=== PATIENT | male | born 1965 | race Caucasian/White ===

== ENCOUNTER → 2016-04-14 | Outpatient (CLI) | payer OTHER ==
[~2016-04-14] MED LIST: ASPI81TA28 PO; FAMO40TA6 PO; METH4PAK PO; OMEP20TA PO; ONDA4TAB10 SL; OXYC1TAB3 PO; PRT/40 PO; ZYR10 PO
--- NOTE | 2016-04-14 10:15 | DIAGNOSTIC IMAGING REPORT ---
DOUBLE CONTRAST UPPER GI SERIES CLINICAL HISTORY: Generalized abdominal pain. Heartburn. Dysphagia. COMPARISON STUDY: Abdominal CT dated 03/28/2016. TECHNIQUE: A standard air contrast upper GI series was performed. Spot images of the esophagus and stomach were obtained in multiple obliquities both upright and prone. FINDINGS: The patient swallowed barium without difficulty. The esophagus is structurally normal without evidence of intrinsic or extrinsic mass. The esophageal mucosal pattern is normal. No gastroesophageal reflux was elicited by having the patient perform the Valsalva maneuver. The gastroesophageal junction distends normally. The stomach is normal in configuration and demonstrates normal distensibility. No mass or ulceration is identified. There is gastric fold thickening, typical in appearance for gastritis. The duodenal bulb and sweep are unremarkable. Fluoroscopy time: 1.9 minutes. Fluoroscopic images: 27 IMPRESSION: 1. The esophagus is normal in appearance. 2. Gastric fold thickening suggests gastritis. Clinical correlation will be required. Electronically signed by: Anderson Henry M.D. 04/14/2016 10:12 AM Dictated Date/Time: 04/14/2016 10:11 AM
== END | disposition home or self-care (01) ==
LOC: C.RAD 08:41
PROVIDERS: ATTEND Nurse Practitioner Family
DX: R10.13 Epigastric pain (principal); K21.9 Gastro-esophageal reflux disease without esophagitis

== ENCOUNTER 2016-05-18 15:54 | Inpatient (IN) | payer OTHER ==
[~2016-05-18] VITALS: Ht 175.3 cm; Wt 80.1 kg
[~2016-05-18 15:54] MED LIST changes: -FAMO40TA6 PO; -METH4PAK PO; -OMEP20TA PO; -ZYR10 PO
[2016-05-18] MEDS ORDERED: DiphenhydrAMINE HCL 50 MG/ML VIAL IV STA (16:44)
[2016-05-18] MEDS ORDERED: FAMOTIDINE 20MG/102 ML D5W IV STA (16:44)
[2016-05-18] MEDS ORDERED: DEXAMETHASONE SOD INJ 4 MG/ML VIAL IV STA (16:44)
[2016-05-18 16:57] LABS: BASO % 0.3 %; BASO ABS # 0.03 K/uL (0-0.2); COMPLETE YES; EOS % 2.1 %; HEMATOCRIT 47.2 % (42-52); IG% 0.3 %; LYMPH % 24.6 %; LYMPH ABS # 2.91 K/uL (1.2-3.4); MEAN CORPUSCULAR HEMOGLOBIN 33.9 pg (25-34); MEAN CORPUSCULAR HGB CONC 36.9 g/dl (32-36); MEAN PLATELET VOLUME 11.4 fL (7.4-10.4); MONO % 10.1 %; NEUT % 62.6 %; PLATELET COUNT 200 K/uL (130-400); RED BLOOD COUNT 5.13 M/uL (4.7-6.1); WHITE BLOOD COUNT 11.84 K/uL (4.8-10.8)
[2016-05-18] MEDS ORDERED: OMEP20TA PO (16:59)
--- NOTE | 2016-05-18 17:06 | DIAGNOSTIC IMAGING REPORT ---
CHEST ONE VIEW PORTABLE CLINICAL HISTORY: cough, throat swelling pain COMPARISON STUDY: 03/30/2016 FINDINGS: The bones soft tissues and hemidiaphragms are normal. The cardiomediastinal silhouette is normal. The lungs are clear. The pulmonary vasculature is normal. IMPRESSION: Negative chest. Electronically signed by: Brain Cherry M.D. 05/18/2016 5:05 PM Dictated Date/Time: 05/18/2016 5:04 PM
[2016-05-18 17:25] LABS: BUN/CREATININE RATIO 14.1 (10-20); CREATININE 0.97 mg/dl (0.60-1.40); POTASSIUM 3.8 mmol/L (3.5-5.1)
[2016-05-18] MEDS ORDERED: OPTIRAY 320 IV PRN (18:30)
--- NOTE | 2016-05-18 18:48 | DIAGNOSTIC IMAGING REPORT ---
CT soft tissue neck SOFT TISSUE NECK WITH CLINICAL HISTORY: facial, tongue, and lip swelling edema TECHNIQUE: Transaxial acquisition with multi axial reformatted images COMPARISON STUDY: None FINDINGS: Normal density characteristics of the salivary glands. No evidence for airway compromise. No evidence for mass or collection. Mild soft tissue edema in the region of the right maxillary perimandibular region. No abscess or collection. IMPRESSION: Mild premaxillary and premandibular soft tissue edema. 2. No evidence for abscess or collection. 3. No evidence for airway compromise. Electronically signed by: Brain Cherry M.D. 05/18/2016 6:46 PM Dictated Date/Time: 05/18/2016 6:45 PM
[2016-05-18] MEDS ORDERED: ONDANSETRON INJ 2 MG/ML 2 ML VIAL IV PRN (21:45)
[2016-05-18] MEDS ORDERED: DiphenhydrAMINE HCL 50 MG/ML VIAL IV PRN (21:45)
[2016-05-18] MEDS ORDERED: ALUMINUM/MAGNESIUM/SIMETH (MAALOX MAX) 30 ML UDC PO PRN (21:45)
[2016-05-18] MEDS ORDERED: NITROGLYCERIN 0.4 MG SL PER TAB CHARGE SL PRN (21:45)
[2016-05-18] MEDS ORDERED: HydrALAZINE HCL 20 MG/ML VIAL IV. PRN (21:45)
[2016-05-18] MEDS ORDERED: ACETAMINOPHEN 325 MG TAB PO PRN (21:45)
[2016-05-18 22:50] VITALS: BP 166/96; PULSE 88; TEMP 36.9; O2SAT 95; Ht 175.3 cm; Wt 80.1 kg
[2016-05-18] MEDS ORDERED: CLONIDINE HCL 0.1 MG TAB PO ONE (23:45)
[2016-05-18] MEDS ORDERED: CLONIDINE HCL 0.1 MG TAB PO PRN (23:45)
[2016-05-18] MEDS: SODIUM CHLORIDE 0.9% 1000ML 1,000 ML IV SCH (23:56)
--- NOTE | 2016-05-19 00:10 | EMERGENCY ROOM VISIT NOTE ---
History Report prepared by Vu: Mayelin Duarte Under the Supervision of: Dr. Karl Knight M.D. First contact with patient: 16:32 Chief Complaint: ALLERGIC REACTION Stated Complaint: SWELLING IN THROAT, LIPS AND FACE Nursing Triage Summary: Patient presents with left sided facial swelling and left upper lip swellng that started approximatleyh 1300 this date. Negative mary inhibitor use, negative exposure to mumps. negative fever/chills. Mild nausea, negative vomiting. 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 His symptoms came on gradually as the day progressed. The patient is experiencing facial edema and upper lip edema. The patient states that his tongue feels thick. He also states that it is hard to swallow. He has not taken anything to try to relieve his symptoms. He is also experiencing some blurry vision and some nausea. The patient denies using or doing anything different today. He states that he started experiencing a cough one week ago. Pt denies headache, fevers, chills, sore throat, neck pain, chest pain, breathing difficulties, vomiting, abdominal pain, back pain, melena, hematochezia, urinary symptoms, numbness, weakness, lymphadenopathy, rash, or other complaints. The patient takes Prilosec, but denies being on any other daily medications. 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 A total of ten systems were reviewed and were otherwise negative. Past Medical & Surgical Medical Problems: (1) Abnormal liver function (2) Allergic angioedema (3) Gastroesophageal reflux disease (4) H/O: Bowel obstruction (5) s/p appendectomy Family History FH: CHF (congestive heart failure) MOTHER FH: AK (myocardial infarction) FATHER FH: Parkinson's disease FATHER FH: stroke FATHER Social History Smoking Status: Never Smoker Alcohol Use: occasionally Marital Status: Housing Status: lives with family Occupation Status: employed Current/Historical Medications Scheduled PRN Omeprazole (Omeprazole), 20 MG PO DAILY PRN for Acid Reflux Allergies Coded Allergies: No Known Allergies (Unverified , NONE, 03/30/16) Physical Exam Vital Signs Date Time Temp Pulse Resp B/P Pulse Ox O2 Delivery O2 Flow Rate FiO2 05/18/16 21:21 80 05/18/16 20:30 80 18 168/108 95 Room Air 05/18/16 18:19 79 18 156/109 95 Room Air 05/18/16 17:45 82 16 161/115 97 Room Air 05/18/16 17:12 84 05/18/16 17:07 86 20 177/112 95 Room Air 05/18/16 16:57 96 Room Air 05/18/16 16:08 37.1 101 20 164/99 94 Room Air Physical Exam GENERAL: Awake, alert, well-appearing, in no distress HENT: Normocephalic, atraumatic. Facial swelling. Lower lip swelling. Mild tongue edema. Oropharynx unremarkable. EYES: Normal conjunctiva. Sclera non-icteric. NECK: Supple. No nuchal rigidity. FROM. No JVD. RESPIRATORY: Clear to auscultation. CARDIAC: Regular rate, normal rhythm. Extremities warm and well perfused. Pulses equal. ABDOMEN: Soft, non-distended. No tenderness to palpation. No rebound or guarding. No masses. RECTAL: Deferred. MUSCULOSKELETAL: Chest examination reveals no tenderness. The back is symmetrical on inspection without obvious abnormality. There is no CVA tenderness to palpation. No joint edema. LOWER EXTREMITIES: Calves are equal size bilaterally and non-tender. No edema. No discoloration. NEURO: Normal sensorium. No sensory or motor deficits noted. SKIN: No rash or jaundice noted. Medical Decision & Procedures ER Provider Diagnostic Interpretation: X ray results as stated below per my interpretation and radiologist interpretation. Other radiology results as stated below per my review and radiologist interpretation CHEST ONE VIEW PORTABLE IMPRESSION: Negative chest. Electronically signed by: Brain Cherry M.D. 05/18/2016 5:05 PM Dictated Date/Time: 05/18/2016 5:[address] soft tissue neck SOFT TISSUE NECK WITH IMPRESSION: Mild premaxillary and premandibular soft tissue edema. 2. No evidence for abscess or collection. 3. No evidence for airway compromise. Electronically signed by: Brain Cherry M.D. 05/18/2016 6:46 PM Dictated Date/Time: 05/18/2016 6:45 PM Laboratory Results 05/18/16 16:20 Red Blood Count 5.13, Mean Corpuscular Volume 92.0, Mean Corpuscular Hemoglobin 33.9, Mean Corpuscular Hemoglobin Concent 36.9, Mean Platelet Volume 11.4, Neutrophils (%) (Auto) 62.6, Lymphocytes (%) (Auto) 24.6, Monocytes (%) (Auto) 10.1, Eosinophils (%) (Auto) 2.1, Basophils (%) (Auto) 0.3, Neutrophils # (Auto ) 7.43, Lymphocytes # (Auto) 2.91, Monocytes # (Auto) 1.19, Eosinophils # (Auto ) 0.25, Basophils # (Auto) 0.03 05/18/16 16:20 Test 05/18/16 16:20 White Blood Count 11.84 K/uL (4.8-10.8) Red Blood Count 5.13 M/uL (4.7-6.1) Hemoglobin 17.4 g/dL (14.0-18.0) Hematocrit 47.2 % (42-52) Mean Corpuscular Volume 92.0 fL (80-100) Mean Corpuscular Hemoglobin 33.9 pg (25-34) Mean Corpuscular Hemoglobin Concent 36.9 g/dl (32-36) Platelet Count 200 K/uL (130-400) Mean Platelet Volume 11.4 fL (7.4-10.4) Neutrophils (%) (Auto) 62.6 % Lymphocytes (%) (Auto) 24.6 % Monocytes (%) (Auto) 10.1 % Eosinophils (%) (Auto) 2.1 % Basophils (%) (Auto) 0.3 % Neutrophils # (Auto) 7.43 K/uL (1.4-6.5) Lymphocytes # (Auto) 2.91 K/uL (1.2-3.4) Monocytes # (Auto) 1.19 K/uL (0.11-0.59) Eosinophils # (Auto) 0.25 K/uL (0-0.5) Basophils # (Auto) 0.03 K/uL (0-0.2) RDW Standard Deviation 46.3 fL (36.4-46.3) RDW Coefficient of Variation 13.6 % (11.5-14.5) Immature Granulocyte % (Auto) 0.3 % Immature Granulocyte # (Auto) 0.03 K/uL (0.00-0.02) Anion Gap 10.0 mmol/L (3-11) Est Creatinine Clear Calc Drug Dose 90.1 ml/min Estimated GFR () 104.3 Estimated GFR (Non- 90.0 BUN/Creatinine Ratio 14.1 (10-20) Calcium Level 8.0 mg/dl (8.5-10.1) Chemistry Specimen Hemolysis Laboratory results reviewed by me Medications Administered Medications (Trade) Dose Ordered Sig/Solitario Route Start Time Stop Time Status Last Admin Dose Admin Diphenhydramine HCl (Benadryl Inj) 50 mg NOW STAT IV 05/18/16 16:44 05/18/16 16:46 DC 05/18/16 16:54 50 MG Dexamethasone Sodium Phosphate (Decadron Inj) 10 mg NOW STAT IV 05/18/16 16:44 05/18/16 16:46 DC 05/18/16 16:55 10 MG Famotidine (Pepcid 20mg/100 ml) 20 mg ONE STAT IV 05/18/16 16:44 05/18/16 16:46 DC 05/18/16 16:55 20 MG ED Course 1642: The patient was evaluated in room A9. A complete history and physical exam was performed. 1643: Ordered Famotidine 20 mg IV, Decadron Inj 10 mg IV, Benadryl Inj 50 mg IV 1749: I reassessed the patient. He is doing better. The patient's family notes that the patient is hypertensive now, but he has no prior history of hypertension. 2054: Upon reexamination, the patient was resting comfortably. I discussed the test results and treatment plan with him. The patient will be evaluated for further management. 2112: Discussed the patient's case with Dr. Autumn Moreira. The patient will be evaluated for further treatment and disposition. Medical Decision Triage Nursing notes reviewed. The patient's presentation and history were concerning for facial swelling. Etiologies such as allergic reaction, urticaria, angioedema, Praneeth's angina, deep space infection, as well as others were entertained. The patient was evaluated. He was treated with IV Pepcid, Benadryl, and Decadron. He was monitored. Initially he seemed to be getting somewhat better but then had some slight progression. This stabilized. The patient was observed for several more hours. He had CT imaging done to evaluate for any possible infection. Edema was noted but no abscess or significant findings found otherwise. The patient was hypertensive. I did discuss this with the patient and his . The patient has had hypertension documented for several years. He is currently not on any medications for hypertension. Because of the swelling around the airway further observation and potential treatment will be necessary. The patient was in agreement with staying in the hospital. Consultation was made with internal medicine. The patient was evaluated in the Emergency Room for further treatment. Given the findings this seems to be most consistent with angioedema. The chart was completed utilizing [employer] Speech voice recognition software. Grammatical errors, random word insertions, pronoun errors, and incomplete sentences are an occasional consequence of this system due to software limitations, ambient noise, and hardware issues. Any formal questions or concerns about the content, text, or information contained within the body of this dictation should be directly addressed to the physician for clarification. Consults Time Called: 2099 Consulting Physician: Dr. Autumn Moreira Returned Call: [id number] Discussed the patient's case with Dr. Autumn Moreira. The patient will be evaluated for further treatment and disposition. Impression Primary Impression: Facial edema Additional Impression: Angioedema Scribe Attestation The scribe's documentation has been prepared under my direction and personally reviewed by me in its entirety. I confirm that the note above accurately reflects all work, treatment, procedures, and medical decision making performed by me. Departure Information Dispostion Being Evaluated By Hospitalist Toby Teran M.D. (PCP) Patient Instructions My [facility] Problem Qualifiers Additional Impression: Angioedema Encounter type: initial encounter Qualified Codes: T78.3XXA - Angioneurotic edema, initial encounter
[2016-05-19] MEDS ORDERED: LORAZEPAM 0.5 MG TAB PO STA (00:41)
[2016-05-19] MEDS ORDERED: LORAZEPAM 0.5 MG TAB ONE (00:43)
--- NOTE | 2016-05-19 01:40 | HISTORY & PHYSICAL EXAMINATION ---
DATE OF ADMISSION: 05/18/2016 CHIEF COMPLAINT: Allergic reaction. HISTORY OF PRESENT ILLNESS: This is a 50-year-old male with a past medical history significant for GERD, who comes because of allergic reaction. The patient says he was going to grocery with his family when the family suddenly noticed that his face was swelling and lips were swelling. He felt that his throat was closing on. He came to the ER and was given dexamethasone, Benadryl and famotidine. He says his shortness of breath improved, but he still feels his tongue is swollen and face is swollen. The patient denies any recent change of medications or using any [id number] medications. He denies any insect bite. It happened all of a sudden. It did not happen in the past. He denies any chest pain. No cold symptoms. He has some mild blurred vision. No abdominal pain. Appetite is okay. Normal bowel and bladder movements. Otherwise, he is doing fine. Currently he is resting comfortably, hemodynamically stable and saturating fine on room air. ALLERGIES: No known drug allergies. PAST MEDICAL HISTORY: As mentioned above. PAST SURGICAL HISTORY: Colonoscopy and EGD, removal of ruptured appendix, history of bowel obstruction status post exploratory laparotomy with extensive lysis of adhesions and repair of small bowel. MEDICATIONS: The patient is on Protonix 40 mg p.o. daily and Prevacid 30 mg p.o. b.i.d. FAMILY HISTORY: Significant for; father had ND in 40s and had stroke. Mother has migraines. SOCIAL HISTORY: Never smoked. Alcohol occasional, 6-packs per week. No drug use. No caffeine. Lives with his family. REVIEW OF SYMPTOMS: As per HPI. Rest of review of symptoms negative. PHYSICAL EXAMINATION: GENERAL: The patient is of moderate build, not in distress. VITAL SIGNS: Temperature 37.1, pulse 80, respiratory rate 18, blood pressure 168/108 and oxygen 95% on room air. HEENT: No pallor, no icterus. Pupils are equal, round and reactive to light. NECK: Bilateral parotid and mandibular area swelling seen. Face; oral mucosa, lips are slightly swollen and tongue is slightly swollen. NECK: No JVD, no carotid bruit. No neck masses. CARDIOVASCULAR: S1, S2 heard. Regular rate and rhythm. No murmur and no gallop. RESPIRATORY SYSTEM: Normal AP diameter. No accessory muscle use. No wheezing, no crackles. ABDOMEN: Soft, bowel sounds are present. Mild tenderness in the right upper quadrant region. No distention. CENTRAL NERVOUS SYSTEM: Cranial nerves II-XII are grossly intact. Nonfocal. EXTREMITIES: No edema, no erythema. LABORATORIES: WBC 11.8, hemoglobin 17.4, hematocrit 47.2, platelets 200. Sodium 142, potassium 3.8, chloride 108, bicarbonate 24, BUN 14, creatinine 0.9, serum glucose 94, calcium is 8. Chest x-ray; negative chest, soft tissue neck, mild premaxillary and perimandibular soft tissue edema. No evidence for abscess or collection. No evidence of airway compromise. ASSESSMENT AND PLAN: This is a 50-year-old male, who presents with allergic reaction. 1. Allergic reaction and possible angioedema. The swelling over the parotid and mandibular region, tongue and lip swelling. Unknown etiology. Soft tissue scan of the neck showed no airway compromise, but showed premaxillary and mandibular swelling. We will observe on tele floor. We will put him on IV Solu-Medrol, IV famotidine, cetirizine and IV Benadryl p.r.n. He requires maybe, a short one-week course of prednisone taper and Zantac and cetirizine on discharge. May need to follow as outpatient with allergy leak gang supervisor. We will also consult ENT for his mandibular region swelling and possible parotid gland involvement. 2. History of gastroesophageal reflux disease, currently on IV famotidine. Deep venous thrombosis prophylaxis, SCDs and TEDs. DISPOSITION: Admit to the tele floor. Expect to discharge home and follow with the family doctor and allergy and immunology. Level 1 full code. MTDD
[2016-05-19 05:29] LABS: COMPLETE YES; HEMATOCRIT 42.4 % (42-52); IG% 0.2 %; LYMPH % 13.5 %; LYMPH ABS # 1.12 K/uL (1.2-3.4); MEAN CELL VOLUME 92.2 fL (80-100); MEAN CORPUSCULAR HEMOGLOBIN 33.5 pg (25-34); MEAN CORPUSCULAR HGB CONC 36.3 g/dl (32-36); MONO % 4.3 %; PLATELET COUNT 177 K/uL (130-400); WHITE BLOOD COUNT 8.29 K/uL (4.8-10.8)
[2016-05-19 05:34] VITALS: BP 120/78; PULSE 78; TEMP 36.9; O2SAT 93
[2016-05-19 05:53] LABS: ALT/SGPT 81 U/L (12-78); AST/SGOT 35 U/L (15-37); BLOOD UREA NITROGEN 15 mg/dl (7-18); BUN/CREATININE RATIO 20.4 (10-20); CALCIUM 8.4 mg/dl (8.5-10.1); CARBON DIOXIDE 23 mmol/L (21-32); CHLORIDE 109 mmol/L (98-107); CREATININE 0.75 mg/dl (0.60-1.40); GLUCOSE 122 mg/dl (70-99); POTASSIUM 3.9 mmol/L (3.5-5.1); SODIUM 142 mmol/L (136-145)
[2016-05-19 05:56] LABS: ALKALINE PHOSPHATASE 85 U/L (45-117)
[2016-05-19] MEDS ORDERED: FAMOTIDINE IV INJ 20 MG in DEXTROSE 5% 100ML 100 ML IV SCH (06:00)
[2016-05-19 07:48] VITALS: BP 122/81; PULSE 79; TEMP 36.8; O2SAT 95
[2016-05-19] MEDS ORDERED: METHYLPREDNISOLONE IV 60 MG in SYRINGE 0 ML IV SCH (09:00)
[2016-05-19] MEDS ORDERED: CETIRIZINE HCL 10 MG TAB PO SCH (09:00)
[2016-05-19 11:24] VITALS: BP 145/91; PULSE 81; TEMP 36.8; O2SAT 94
[2016-05-19] MEDS: SODIUM CHLORIDE 0.9% 1000ML 1,000 ML IV SCH (11:30)
--- NOTE | 2016-05-19 12:18 | Progress Note ---
Subjective Date of Service: May 19, 2016. Subjective Pt evaluation today including: conversation w/ patient, physical exam, lab review, review of studies, review of inpatient medication list Saw/examined the patient in room 280 He states he feels much better as all of his swelling has gone down He states he did take amoxicillin last week, which was the only change in medications No change in dietary habits Problem List Medical Problems: (1) Abdominal pain with radiation to back Status: Acute Review of Systems Constitutional: No chills, No fever Eyes: No eye pain, No worsening of vision ENT: No dental problems, No sore throat, No tinnitus, No trouble swallowing Respiratory: No cough, No dyspnea at rest, No dyspnea on exertion, No hemoptysis, No shortness of breath, No sputum, No wheezing Cardiac: No chest pain, No edema, No orthopnea, No palpitations Abdomen: No diarrhea, No nausea, No pain, No vomiting Medications Current Inpatient Medications Medications (Trade) Dose Ordered Sig/Solitario Route Start Time Stop Time Status Last Admin Dose Admin Ioversol 125 ml 125 ml UD PRN IV 05/18/16 18:30 05/22/16 18:29 Sodium Chloride (Nss 1000ml) 1,000 ml @ 80 mls/hr [id number] IV 05/18/16 23:30 06/17/16 23:29 05/19/16 11:30 80 MLS/HR Acetaminophen (Tylenol Tab) 650 mg Q4H PRN PO 05/18/16 21:45 06/17/16 21:44 Al Hydrox/Mg Hydrox/Simethicone (Maalox Max Susp) 15 ml Q4H PRN PO 05/18/16 21:45 06/17/16 21:44 Ondansetron HCl (Zofran Inj) 4 mg Q6H PRN IV 05/18/16 21:45 06/17/16 21:44 Nitroglycerin 0.4 mg 0.4 mg UD PRN SL 05/18/16 21:45 06/17/16 21:44 Methylprednisolone Sodium Succinate/ Syringe (Solu-Medrol IV/ Syringe) 0.96 ml @ 1.5 mls/min DAILY IV 05/19/16 09:00 06/18/16 08:59 05/19/16 07:50 1.5 MLS/MIN Cetirizine HCl (zyrTEC TAB) 10 mg QAM PO 05/19/16 09:00 06/18/16 08:59 05/19/16 07:50 10 MG Diphenhydramine HCl 25 mg 25 mg Q8 PRN IV 05/18/16 21:45 06/17/16 21:44 Famotidine/ Dextrose (Pepcid IV Inj/ D5 100ml) 102 ml @ 200 mls/hr Q12H IV 05/19/16 06:00 06/18/16 05:59 05/19/16 06:13 200 MLS/HR Hydralazine HCl (HydrALAZINE INJ) 5 mg Q6 PRN IV. 05/18/16 21:45 06/17/16 21:44 05/18/16 22:20 5 MG Clonidine HCl (Catapres Tab) 0.1 mg Q4 PRN PO 05/18/16 23:45 06/17/16 23:44 Objective Vital Signs Date Time Temp Pulse Resp B/P Pulse Ox O2 Delivery O2 Flow Rate FiO2 05/19/16 11:55 Room Air 05/19/16 11:24 36.8 81 18 145/91 94 Room Air 05/19/16 07:48 36.8 79 18 122/81 95 Room Air 05/19/16 07:45 Room Air 05/19/16 05:34 36.9 78 18 120/78 93 Room Air 05/19/16 04:00 Room Air 05/18/16 22:50 36.9 88 20 166/96 95 Room Air 05/18/16 22:19 81 18 175/124 05/18/16 21:21 80 05/18/16 20:30 80 18 168/108 95 Room Air 05/18/16 18:19 79 18 156/109 95 Room Air 05/18/16 17:45 82 16 161/115 97 Room Air 05/18/16 17:12 84 05/18/16 17:07 86 20 177/112 95 Room Air 05/18/16 16:57 96 Room Air 05/18/16 16:08 37.1 101 20 164/99 94 Room Air Physical Exam General Appearance: no apparent distress ENT: hearing grossly normal Neck: supple, no adenopathy Respiratory/Chest: chest non-tender, lungs clear, normal breath sounds, no respiratory distress, no accessory muscle use Cardiovascular: regular rate, rhythm, no edema, no gallop, no JVD, no murmur Abdomen: normal bowel sounds, non tender, soft Extremities: normal inspection, no pedal edema Neurologic/Psychiatric: no motor/sensory deficits, alert, normal mood/affect Laboratory Results Last 24 Hours Test 05/18/16 16:20 05/18/16 21:59 05/19/16 05:10 White Blood Count 11.84 K/uL 8.29 K/uL Red Blood Count 5.13 M/uL 4.60 M/uL Hemoglobin 17.4 g/dL 15.4 g/dL Hematocrit 47.2 % 42.4 % Mean Corpuscular Volume 92.0 fL 92.2 fL Mean Corpuscular Hemoglobin 33.9 pg 33.5 pg Mean Corpuscular Hemoglobin Concent 36.9 g/dl 36.3 g/dl Platelet Count 200 K/uL 177 K/uL Mean Platelet Volume 11.4 fL 11.0 fL Neutrophils (%) (Auto) 62.6 % 82.0 % Lymphocytes (%) (Auto) 24.6 % 13.5 % Monocytes (%) (Auto) 10.1 % 4.3 % Eosinophils (%) (Auto) 2.1 % 0.0 % Basophils (%) (Auto) 0.3 % 0.0 % Neutrophils # (Auto) 7.43 K/uL 6.79 K/uL Lymphocytes # (Auto) 2.91 K/uL 1.12 K/uL Monocytes # (Auto) 1.19 K/uL 0.36 K/uL Eosinophils # (Auto) 0.25 K/uL 0.00 K/uL Basophils # (Auto) 0.03 K/uL 0.00 K/uL RDW Standard Deviation 46.3 fL 45.4 fL RDW Coefficient of Variation 13.6 % 13.5 % Immature Granulocyte % (Auto) 0.3 % 0.2 % Immature Granulocyte # (Auto) 0.03 K/uL 0.02 K/uL Sodium Level 142 mmol/L 142 mmol/L Potassium Level 3.8 mmol/L 3.9 mmol/L Chloride Level 108 mmol/L 109 mmol/L Carbon Dioxide Level 24 mmol/L 23 mmol/L Anion Gap 10.0 mmol/L 10.0 mmol/L Blood Urea Nitrogen 14 mg/dl 15 mg/dl Creatinine 0.97 mg/dl 0.75 mg/dl Est Creatinine Clear Calc Drug Dose 90.1 ml/min 116.6 ml/min Estimated GFR () 104.3 123.1 Estimated GFR (Non- 90.0 106.2 BUN/Creatinine Ratio 14.1 20.4 Random Glucose 94 mg/dl 122 mg/dl Calcium Level 8.0 mg/dl 8.4 mg/dl Chemistry Specimen Hemolysis Ionized Calcium 1.13 mmol/l Magnesium Level 2.0 mg/dl Total Bilirubin 0.4 mg/dl Direct Bilirubin < 0.1 mg/dl Aspartate Amino Transf (AST/SGOT) 35 U/L Alanine Aminotransferase (ALT/SGPT) 81 U/L Alkaline Phosphatase 85 U/L Total Protein 6.3 gm/dl Albumin 3.0 gm/dl 25-Hydroxy Vitamin D Total 14.2 ng/ml Assessment and Plan This is a 50 year old male who presented with swelling of throat/lips Allergic Reaction swelling of lips/face patient mentioned felt like throat closing was given IV steroids, H1 and H2 tonia and he felt better all symptoms have resolved soft tissue neck CT shows Mild premaxillary and premandibular soft tissue edema. ENT consulted for further input likely d/c home today on medrol dosepak, Zyrtec and H2 tonia with outpatient f /u with PCP DVT ppx SCDs FULL CODE
--- NOTE | 2016-05-19 13:40 | ECHOCARDIOGRAM REPORT ---
*NOTICE TO RECEIVING LIBERTARIAN AGENCY This information is strictly Confidential and protected under [place] law. [place] law prohibits you from making any further disclosure of this information unless further disclosure is expressly permitted by the written consent of the person to whom it pertains or is authorized by law. A general authorization for the release of medical or other information is not sufficient for this purpose. Hospital accepts no responsibility if the information is made available to any other person, INCLUDING THE PATIENT. Interpretation Summary * Name: MARLEEN MELTON Study Date: 05/19/2016 10:20 AM BP: 145/91 mmHg * Patient Location: [facility]\S\N280\S\1 HR: 81 * : 1965 (M/d/yyyy) Gender: Male Height: 69 in * Age: 50 yrs Ethnicity: [place] Weight: 181 lb * Ordering Physician: Eliot Valdes * Performed By: Camille Santoyo * * Reason For Study: LVH * BSA: 2.0 m2 * -- Conclusions -- * The left ventricle is normal in size. * There is moderate concentric left ventricular hypertrophy. * Left ventricular systolic function is normal. * Ejection Fraction = 60-65%. Procedure Details * A complete two-dimensional transthoracic echocardiogram was performed (2D, M-mode, Doppler and color flow Doppler). Left Ventricle * The left ventricle is normal in size. * There is moderate concentric left ventricular hypertrophy. * Ejection Fraction = 60-65%. * Left ventricular systolic function is normal. Right Ventricle * The right ventricle is normal size. * The right ventricular systolic function is normal. Atria * The left atrial size is normal. * Right atrial size is normal. * The interatrial septum is intact with no evidence for an atrial septal defect. Mitral Valve * The mitral valve is normal in structure and function. Tricuspid Valve * The tricuspid valve anatomy is normal. * Significant tricuspid regurgitation is absent. Aortic Valve * The aortic valve is normal in structure and function. Pulmonic Valve * The pulmonic valve is not well visualized. * There is no significant pulmonary regurgitation. Great Vessels * The aortic root and proximal ascending aorta are normal sized. Pericardium/Pleural * There is no pericardial effusion. Left Ventricular Diastolic Function * Diastolic dysfunction, Grade II (pseudonormalization pattern). MMode 2D Measurements and Calculations IVSd 1.6 cm IVSs 2.1 cm LVIDd 3.5 cm LVIDs 2.3 cm LVPWd 1.1 cm LVPWs 1.6 cm IVS/LVPW 1.5 FS 35.3 % EDV(Teich) 51.1 ml ESV(Teich) 17.5 ml EF(Teich) 65.8 % EDV(cubed) 43.1 ml ESV(cubed) 11.7 ml EF(cubed) 73.0 % % IVS thick 29.9 % % LVPW thick 51.5 % LV mass(C)d 162.5 grams LV mass(C)dI 82.1 grams/m\S\2 LV mass(C)s 169.7 grams LV mass(C)sI 85.7 grams/m\S\2 CO(Teich) 2.2 l/min CI(Teich) 1.1 l/min/m\S\2 SV(Teich) 33.6 ml SI(Teich) 17.0 ml/m\S\2 CO(cubed) 2.1 l/min CI(cubed) 1.0 l/min/m\S\2 SV(cubed) 31.5 ml SI(cubed) 15.9 ml/m\S\2 ACS 1.7 cm LA dimension 3.8 cm asc Aorta Diam 3.3 cm LVOT diam 2.2 cm LVOT area 3.7 cm\S\2 LVAd ap4 25.0 cm\S\2 LVLd ap4 8.7 cm EDV(MOD-sp4) 60.0 ml LVAs ap4 13.7 cm\S\2 LVLs ap4 6.7 cm ESV(MOD-sp4) 25.0 ml EF(MOD-sp4) 58.3 % LVAd ap2 24.7 cm\S\2 LVLd ap2 8.3 cm EDV(MOD-sp2) 61.0 ml LVAs ap2 13.0 cm\S\2 LVLs ap2 6.3 cm ESV(MOD-sp2) 23.0 ml EF(MOD-sp2) 62.3 % CO(MOD-sp4) 2.3 l/min CI(MOD-sp4) 1.2 l/min/m\S\2 SV(MOD-sp4) 35.0 ml SI(MOD-sp4) 17.7 ml/m\S\2 CO(MOD-sp2) 2.5 l/min CI(MOD-sp2) 1.3 l/min/m\S\2 SV(MOD-sp2) 38.0 ml SI(MOD-sp2) 19.2 ml/m\S\2 Doppler Measurements and Calculations MV E max yoselin 77.1 cm/sec MV A max yoselin 73.3 cm/sec MV E/A 1.1 MV dec time 0.26 sec Ao V2 max 129.0 cm/sec Ao max PG 6.7 mmHg Ao max PG (full) 1.4 mmHg MARY(V,A) 3.3 cm\S\2 MARY(V,D) 3.3 cm\S\2 LV V1 max PG 5.3 mmHg LV V1 mean PG 2.7 mmHg LV V1 max 115.1 cm/sec LV V1 mean 77.0 cm/sec LV V1 VTI 24.4 cm SV(LVOT) 89.2 ml SI(LVOT) 45.1 ml/m\S\2 PA V2 max 101.7 cm/sec PA max PG 4.1 mmHg PI end-d yoselin 108.6 cm/sec
[2016-05-19] MEDS ORDERED: ZYR10 PO (14:39)
[2016-05-19] MEDS ORDERED: METH4PAK PO (14:39)
[2016-05-19] MEDS ORDERED: FAMO40TA6 PO (14:39)
--- NOTE | 2016-05-19 14:44 | Discharge Instructions ---
Discharge Instructions Admission Reason for Admission: Allergic Angioedema Discharge Discharge Diagnosis / Problem: Allergic Reaction; Angioedema Discharge Goals Goal(s): Decrease discomfort, Improve function Activity Recommendations Activity Limitations: resume your previous activity . Instructions / Follow-Up Instructions / Follow-Up Please follow-up with May 26 @ 1:10PM with Dr. Paz * You will be prescribed a Medrol Dosepak (steroids) - please follow directions and use to completion * You will also be prescribed Pepcid and Zyrtec - please use this as prescribed * Return to the ER if swelling recurs Current Hospital Diet Patient's current hospital diet: AHA Diet (Heart Healthy) Discharge Diet Recommended Diet: Regular Diet Pending Studies Studies pending at discharge: no Medical Emergencies . Who to Call and When: Medical Emergencies: If at any time you feel your situation is an emergency, please call 911 immediately. . Non-Emergent Contact Non-Emergency issues call your: Primary Care Provider . . "Provider Documentation" section prepared by Benoit Jacobo. VTE Core Measure Inpt VTE Proph given/why not?: SCD's
--- NOTE | 2016-05-19 14:45 | ENT CONSULTATION ---
DATE OF CONSULTATION: 05/19/2016 DATE OF CONSULTATION: 05/19/2016. DIAGNOSIS: Angioedema. HISTORY OF PRESENT ILLNESS: A 50-year-old gentleman who was admitted from the Emergency Room yesterday because of acute facial swelling. He did not have any breakfast and only had a cup of coffee and then began having facial swelling and tongue swelling yesterday. This became progressively worse and then he presented to the emergency room where he was noted to have angioedema and was admitted. PAST MEDICAL HISTORY: Gastroesophageal reflux disease. PREVIOUS SURGERIES: Appendectomy and bowel obstruction. FAMILY HISTORY: Negative. SOCIAL HISTORY: Negative, nonsmoker. MEDICATIONS: Omeprazole. ALLERGIES: No known drug allergies. PHYSICAL EXAMINATION: GENERAL: WN, WD male in no acute distress. Evidently he had significant swelling yesterday; however, today the swelling has totally subsided. HEAD: Normocephalic. EYES: Normal. EARS: Normal. NOSE: Nasal passages patent. THROAT: Oropharynx shows normal mobile tongue. NECK: Shows no masses and no swelling. IMPRESSION: Angioedema, resolved. RECOMMENDATIONS: I would agree that the patient needs to be evaluated by allergy, which could be Dr. Ribera in town here.
--- NOTE | 2016-05-19 14:49 | Discharge Summary ---
Discharge Summary Admission Date: May 18, 2016 at 21:38 Discharge Date: May 19, 2016 Discharge Disposition: Home Principal Diagnosis: Allergic Reaction/Angioedema - resolved Medication Reconciliation New Medications: Famotidine (Pepcid) 40 Mg Tab 1 TAB PO DAILY for 30 Days, #30 TAB 3 Refills Methylprednisolone (Medrol Dosepak) 4 Mg Dave 1 PKT PO DAILY, #1 PKT Cetirizine HCl (All Day Allergy) 10 Mg Tab 10 MG PO QAM for 10 Days, #10 TAB Continued Medications: Omeprazole (Omeprazole) 20 Mg Tab 20 MG PO DAILY PRN for Acid Reflux, TAB Admission Information Physical Exam (per Admitting): DATE OF ADMISSION: 05/18/2016 CHIEF COMPLAINT: Allergic reaction. HISTORY OF PRESENT ILLNESS: This is a 50-year-old male with a past medical history significant for GERD, who comes because of allergic reaction. The patient says he was going to grocery with his family when the family suddenly noticed that his face was swelling and lips were swelling. He felt that his throat was closing on. He came to the ER and was given dexamethasone, Benadryl and famotidine. He says his shortness of breath improved, but he still feels his tongue is swollen and face is swollen. The patient denies any recent change of medications or using any [id number]-dzlomyw medications. He denies any insect bite. It happened all of a sudden. It did not happen in the past. He denies any chest pain. No cold symptoms. He has some mild blurred vision. No abdominal pain. Appetite is okay. Normal bowel and bladder movements. Otherwise, he is doing fine. Currently he is resting comfortably, hemodynamically stable and saturating fine on room air. ALLERGIES: No known drug allergies. PAST MEDICAL HISTORY: As mentioned above. PAST SURGICAL HISTORY: Colonoscopy and EGD, removal of ruptured appendix, history of bowel obstruction status post exploratory laparotomy with extensive lysis of adhesions and repair of small bowel. MEDICATIONS: The patient is on Protonix 40 mg p.o. daily and Prevacid 30 mg p.o. b.i.d. FAMILY HISTORY: Significant for; father had NH in 40s and had stroke. Mother has migraines. SOCIAL HISTORY: Never smoked. Alcohol occasional, 6-packs per week. No drug use. No caffeine. Lives with his family. REVIEW OF SYMPTOMS: As per HPI. Rest of review of symptoms negative. PHYSICAL EXAMINATION: GENERAL: The patient is of moderate build, not in distress. VITAL SIGNS: Temperature 37.1, pulse 80, respiratory rate 18, blood pressure 168/108 and oxygen 95% on room air. HEENT: No pallor, no icterus. Pupils are equal, round and reactive to light. NECK: Bilateral parotid and mandibular area swelling seen. Face; oral mucosa, lips are slightly swollen and tongue is slightly swollen. NECK: No JVD, no carotid bruit. No neck masses. CARDIOVASCULAR: S1, S2 heard. Regular rate and rhythm. No murmur and no gallop. RESPIRATORY SYSTEM: Normal AP diameter. No accessory muscle use. No wheezing, no crackles. ABDOMEN: Soft, bowel sounds are present. Mild tenderness in the right upper quadrant region. No distention. CENTRAL NERVOUS SYSTEM: Cranial nerves II-XII are grossly intact. Nonfocal. EXTREMITIES: No edema, no erythema. LABORATORIES: WBC 11.8, hemoglobin 17.4, hematocrit 47.2, platelets 200. Sodium 142, potassium 3.8, chloride 108, bicarbonate 24, BUN 14, creatinine 0.9, serum glucose 94, calcium is 8. Chest x-ray; negative chest, soft tissue neck, mild premaxillary and perimandibular soft tissue edema. No evidence for abscess or collection. No evidence of airway compromise. ASSESSMENT AND PLAN: This is a 50-year-old male, who presents with allergic reaction. 1. Allergic reaction and possible angioedema. The swelling over the parotid and mandibular region, tongue and lip swelling. No inciting. No unknown etiology. Soft tissue scan of the neck showed no airway compromise, but showed premaxillary and mandibular swelling. We will observe on tele floor. We will put him on IV Solu-Medrol, IV famotidine, cetirizine and IV Benadryl p.r.n. He requires maybe, a short one-week course of prednisone taper and Zantac and cetirizine on discharge. May need to follow as outpatient with allergy supervisor dog license officer. We will also consult ENT for his mandibular region swelling and possible parotid gland involvement. 2. History of gastroesophageal reflux disease, currently on IV famotidine. Deep venous thrombosis prophylaxis, SCDs and TEDs. DISPOSITION: Admit to the tele floor. Expect to discharge home and follow with the family doctor and allergy and immunology. Level 1 full code. Hospital Course This is a 50 year old male who presented with swelling of throat/lips Allergic Reaction swelling of lips/face patient mentioned felt like throat closing was given IV steroids, H1 and H2 tonia and he felt better all symptoms have resolved soft tissue neck CT shows Mild premaxillary and premandibular soft tissue edema. ENT consulted for further input likely d/c home today on medrol dosepak, Zyrtec and H2 tonia with outpatient f /u with PCP DVT ppx SCDs FULL CODE Total time spent on discharge = 25 minutes This includes examination of the patient, discharge planning, medication reconciliation, and communication with other providers. Discharge Instructions Please follow-up with May 26 @ 1:10PM with Dr. Paz * You will be prescribed a Medrol Dosepak (steroids) - please follow directions and use to completion * You will also be prescribed Pepcid and Zyrtec - please use this as prescribed * Return to the ER if swelling recurs
[2016-05-19 15:27] VITALS: BP 145/91; PULSE 81; TEMP 36.8; O2SAT 94
== END 2016-05-19 16:00 | disposition home or self-care (01) | DRG 916 ==
LOC: ENRESERVDT → ENRESERVTM → C.EDB 15:56 → C.MED 21:38
PROVIDERS: ADMIT Family Medicine; ATTEND Family Medicine
DX: T78.40XA Allergy, unspecified, initial encounter (principal); T78.3XXA Angioneurotic edema, initial encounter; K21.9 Gastro-esophageal reflux disease without esophagitis; Z79.899 Other long term (current) drug therapy

== ENCOUNTER 2017-04-07 12:16 | Emergency (ER) | payer OTHER ==
[~2017-04-07] VITALS: Ht 175.3 cm; Wt 88.9 kg
[~2017-04-07 12:16] MED LIST changes: -ASPI81TA28 PO; +FAMO40TA6 PO; +OMEP20TA PO; -ONDA4TAB10 SL; -OXYC1TAB3 PO; -PRT/40 PO; +ZYR10 PO
[2017-04-07 12:17] VITALS: TEMP 36.9; Ht 175.3 cm; Wt 88.9 kg
[2017-04-07] MEDS ORDERED: MoRPHine SULFATE 4 MG/ML 1 ML CARP\\VIAL IV STA (13:45)
--- NOTE | 2017-04-07 13:45 | EMERGENCY ROOM VISIT NOTE ---
History Report prepared by Vu: Arthur Santiago Under the Supervision of: Dr. Eris Cooper M.D. First contact with patient: 13:19 Chief Complaint: CHEST PAIN Stated Complaint: CHEST PAINS & SOB Nursing Triage Summary: pt reports yesterday was cleaning bathroom using hydrochloric acid having chest pain and difficulty breathing. hurts chest to cough History of Present Illness The patient is a 51 year old white male with a past medical history of a repaired bowel obstruction and GERD who presents to the ED with a cc of burning left sided chest pain beginning last night. Positive cough, shortness of breath , nausea and vomiting. Negative fevers, headache, abdominal pain, back pain, melena, hematochezia, diarrhea, abnormal urinary symptoms, weakness, or numbness. His pain began after he was cleaning his bathroom with a hydrochloric acid based catch basin cleaner. He was in a bathroom inhaling the catch basin cleaner fumes for a couple of hours without a mask or separate ventilation. After he was done, he noticed the pain with some shortness of breath. His cough, nausea, and vomiting began after these other symptoms began. He denies any known allergies and does not take medications. He does not take blood thinners. He denies any history of blood clots or smoking. He denies any recent travels. His shortness of breath is exacerbated with lying flat. His chest pain is exacerbated with coughing/ sneezing but not with exertion. He has a family history of cardiac disease and has never been through a cardiac workup. Source of History: patient Onset: last night Position: chest (left) Symptom Intensity: moderate Quality: burning Timing: constant Modifying Factors (Worsening): other (Coughing/sneezing) Associated Symptoms: + cough, + SOB, + nausea, + vomiting, No fevers, No abdominal pain, No back pain, No melena, No hematochezia, No diarrhea, No urinary symptoms, No weakness, No numbness Review of Systems See HPI for pertinent positives and negatives. A total of ten systems were reviewed and were otherwise negative. Past Medical & Surgical Medical Problems: (1) GERD (gastroesophageal reflux disease) (2) Hx SBO (3) Migraine Surgical Problems: (1) H/O exploratory laparotomy (2) History of appendectomy Family History FH: CHF (congestive heart failure) MOTHER FH: [place] (myocardial infarction) FATHER FH: Parkinson's disease FATHER FH: stroke FATHER Social History Smoking Status: Never Smoker Smokeless Tobacco Use: No Alcohol Use: occasionally Drug Use: none Marital Status: Housing Status: lives with family Occupation Status: employed Current/Historical Medications Scheduled Omeprazole (Omeprazole), 20 MG PO DAILY Allergies Coded Allergies: No Known Allergies (Unverified , NONE, 04/07/17) Physical Exam Vital Signs Date Time Temp Pulse Resp B/P (MAP) Pulse Ox O2 Delivery O2 Flow Rate FiO2 04/07/17 15:48 103 20 160/118 95 Room Air 04/07/17 14:00 98 23 149/107 93 Room Air 04/07/17 13:59 94 04/07/17 13:57 95 Room Air 04/07/17 12:17 36.9 109 18 157/97 95 Room Air Physical Exam GENERAL: Awake, alert, mildly anxious appearing, NAD HENT: Normocephalic, atraumatic. EYES: Normal conjunctiva. Sclera non-icteric. NECK: Supple. No nuchal rigidity. FROM. RESPIRATORY: CTAB, no rhonchi, wheezing, crackles CARDIAC: Tachycardic rate with a regular rhythm, no MRG ABDOMEN: Soft, NTND, BS+ MSK: No chest wall TTP, no LE edema, no calf pain, negative Homans sign NEURO: GCS 15, CN 2-12 intact, moves all 4s on command SKIN: No rash or jaundice noted. Medical Decision & Procedures ER Provider Diagnostic Interpretation: Radiology results as stated below per my review and radiologist interpretation: (CHEST FOR PE) ANGIO WITH CT DOSE: 621.09 mGy.cm HISTORY: 51 years-old Male presents with acute atypical chest pain TECHNIQUE: Multiple CTA images of the chest were obtained after the intravenous administration of 89 ml Optiray 320. Coronal and sagittal MIPS were obtained from the axial data set and were submitted for review. A dose lowering technique was utilized adhering to the principles of ALARA. COMPARISON: Chest radiograph 04/07/2017, CTA 03/28/2016. FINDINGS: CTA: Heart is normal in size without pericardial effusion. Mild atherosclerosis of the aorta without aneurysm or dissection. Imaged proximal great vessels appear to be patent. Mild dilation of the aortic isthmus and proximal descending thoracic aorta is noted, 3.3 cm, unchanged. Mild tortuosity of the descending thoracic aorta. The pulmonary arterial tree is opacified to level of the proximal subsegmental branches and demonstrates no focal filling defects to suggest pulmonary thromboembolic disease. CT CHEST: No dominant thyroid lesion identified. No pathologic adenopathy of the chest. Mild dependent subsegmental bibasilar atelectasis. There is no pneumothorax, pleural effusion, focal airspace consolidation or overt pulmonary edema. Scattered subcentimeter thin-walled cysts are seen to the lungs. Central airways are patent. Calcific granulomas are seen throughout the spleen. Mild nonspecific bilateral perinephric stranding. Probable renal sinus cysts are seen on the left. No acute amount the of the imaged upper abdomen. Soft tissues are unremarkable. Bones appear intact. IMPRESSION: 1. No acute intrathoracic abnormality identified, specifically no acute aortic pathology or evidence of pulmonary thromboembolic disease. 2. Minimal subsegmental dependent bibasilar atelectasis without focal airspace consolidation to suggest pneumonia. 3. No pathologic adenopathy. The above report was generated using voice recognition software. It may contain grammatical, syntax or spelling errors. Electronically signed by: Marcial Brown M.D. 04/07/2017 2:56 PM Dictated Date/Time: 04/07/2017 2:50 PM CHEST ONE VIEW PORTABLE HISTORY: 51 years-old Male CHEST PAIN acute atypical chest pain COMPARISON: Chest radiograph 05/18/2016, CTA of the chest 03/28/2016 TECHNIQUE: Portable AP view of the chest FINDINGS: The cardiomediastinal and hilar silhouettes are within normal limits. There is no pneumothorax, pleural effusion, focal airspace consolidation or overt pulmonary edema. Bones of the chest appear grossly intact. IMPRESSION: No acute process. The above report was generated using voice recognition software. It may contain grammatical, syntax or spelling errors. Electronically signed by: Marcial Brown M.D. 04/07/2017 1:59 PM Dictated Date/Time: 04/07/2017 1:57 PM Laboratory Results 04/07/17 13:30 Red Blood Count 4.87, Mean Corpuscular Volume 96.7, Mean Corpuscular Hemoglobin 34.1, Mean Corpuscular Hemoglobin Concent 35.2, Mean Platelet Volume 11.0, Neutrophils (%) (Auto) 58.2, Lymphocytes (%) (Auto) 24.9, Monocytes (%) (Auto) 10.4, Eosinophils (%) (Auto) 5.5, Basophils (%) (Auto) 0.5, Neutrophils # (Auto ) 5.65, Lymphocytes # (Auto) 2.42, Monocytes # (Auto) 1.01, Eosinophils # (Auto ) 0.53, Basophils # (Auto) 0.05 04/07/17 13:30 Test 04/07/17 13:30 White Blood Count 9.71 K/uL (4.8-10.8) Red Blood Count 4.87 M/uL (4.7-6.1) Hemoglobin 16.6 g/dL (14.0-18.0) Hematocrit 47.1 % (42-52) Mean Corpuscular Volume 96.7 fL (80-100) Mean Corpuscular Hemoglobin 34.1 pg (25-34) Mean Corpuscular Hemoglobin Concent 35.2 g/dl (32-36) Platelet Count 188 K/uL (130-400) Mean Platelet Volume 11.0 fL (7.4-10.4) Neutrophils (%) (Auto) 58.2 % Lymphocytes (%) (Auto) 24.9 % Monocytes (%) (Auto) 10.4 % Eosinophils (%) (Auto) 5.5 % Basophils (%) (Auto) 0.5 % Neutrophils # (Auto) 5.65 K/uL (1.4-6.5) Lymphocytes # (Auto) 2.42 K/uL (1.2-3.4) Monocytes # (Auto) 1.01 K/uL (0.11-0.59) Eosinophils # (Auto) 0.53 K/uL (0-0.5) Basophils # (Auto) 0.05 K/uL (0-0.2) RDW Standard Deviation 46.5 fL (36.4-46.3) RDW Coefficient of Variation 13.2 % (11.5-14.5) Immature Granulocyte % (Auto) 0.5 % Immature Granulocyte # (Auto) 0.05 K/uL (0.00-0.02) Prothrombin Time 10.7 SECONDS (9.0-12.0) Prothromb Time International Ratio 1.0 (0.9-1.1) Activated Partial Thromboplast Time 25.4 SECONDS (21.0-31.0) Partial Thromboplastin Ratio 1.0 Anion Gap 7.0 mmol/L (3-11) Est Creatinine Clear Calc Drug Dose 120.7 ml/min Estimated GFR () 119.7 Estimated GFR (Non- 103.2 BUN/Creatinine Ratio 15.8 (10-20) Calcium Level 8.6 mg/dl (8.5-10.1) Total Bilirubin 0.7 mg/dl (0.2-1) Direct Bilirubin 0.1 mg/dl (0-0.2) Aspartate Amino Transf (AST/SGOT) 239 U/L (15-37) Alanine Aminotransferase (ALT/SGPT) 383 U/L (12-78) Alkaline Phosphatase 93 U/L (45-117) Troponin I < 0.015 ng/ml (0-0.045) Pro-B-Type Natriuretic Peptide 30 pg/ml (0-900) Total Protein 7.1 gm/dl (6.4-8.2) Albumin 3.5 gm/dl (3.4-5.0) Lipase 96 U/L (73-393) Laboratory results reviewed by me Medications Administered Medications (Trade) Dose Ordered Sig/Solitario Route Start Time Stop Time Status Last Admin Dose Admin Morphine Sulfate (MoRPHine SULFATE INJ) 4 mg NOW STAT IV 04/07/17 13:45 04/07/17 13:48 DC 04/07/17 14:07 4 MG ECG Rate (beats per minute): 99 Rhythm: normal sinus Findings: other (Normal intervals, normal axis, no other STS changes or TWI) ED Course 1319: The patient was evaluated in room C6. A complete history and physical exam was performed. 1540: I offered the patient further treatment as an inpatient, but he declined. I informed him that he should follow up in the near future with his PCP or return to the ER if worsening symptoms. I discussed his liver enzymes as well. 1600: I reevaluated the patient. Discussed results and discharge instructions: He verbalized understanding and agreement. The patient is ready for discharge. Medical Decision The patient is a 51 year old white male with a past medical history of a repaired bowel obstruction and GERD who presents to the ED with a cc of burning left sided chest pain beginning last night. Positive cough, shortness of breath, nausea and vomiting. Negative fevers, headache, abdominal pain, back pain, melena, hematochezia, diarrhea, abnormal urinary symptoms, weakness, or numbness. Differential diagnosis: Etiologies such as cardiac ischemia, aortic dissection, pulmonary embolism, pneumonia, pneumothorax, musculoskeletal, infections, pericarditis, myocarditis , esophageal rupture, gastrointestinal, as well as others were entertained. Patient was seen and evaluated the bedside. Patient had complained of some left -sided pleuritic-type chest pain beginning yesterday. Patient states that he was using some hydrochloric acid is clean in the bathroom. Patient states it was not well ventilated although he did have a fan on. Patient has complained of some mild productive sputum which he says is discolored in nature. Patient denies any exertional dyspnea or chest pain. Patient denies any diaphoresis. Patient has had some mild nausea and vomiting. Patient had one episode of nonbloody nonbilious emesis today. Patient's physical exam was fairly unremarkable. Patient did have blood work that was completed along with an EKG , troponin, and CT PE. Patient's CT was negative. Patient's EKG was nonischemic with a negative troponin. Patient's other blood work was fairly unremarkable with the exception of elevated transaminases. Upon further discussion with the patient states he only drinks on weekends and is not a regular drinker. He states he does not binge drink. Patient denies any history of transfusions or IV drug abuse. Patient was offered further blood work as the patient does have some risk factors for cardiac disease however he declined for follow-up. Patient's T bili is normal and patient was told that he did would need to follow-up with his PCP to further evaluate his elevated transaminases. I do not believe he needs an ultrasound at this time given that he does not have an elevated bilirubin and does not appear jaundiced. Patient is agreeable to this plan of care. Patient was told to avoid Tylenol as well as alcohol until he has been seen by his PCP. Patient was told return if worsening symptoms. Patient was also told he is follow-up with his PCP given his family history of cardiac disease. I imagine most of this discomfort as well as the cough is related to inhalation of the noxious fumes. Patient was agreeable to this plan of care and the patient with shared decision making decided he wanted to be discharged. This was done after counseling, and the patient was offered admission and/or further testing, which he also declined at this time. Patient was given strict follow-up, discharge, and return precautions. All questions were answered. Patient was deemed suitable for outpatient follow-up at this time. Patient agreed with the plan of care and was safely discharged home. Medication Reconcilliation Current Medication List: was personally reviewed by me Blood Pressure Screening Patient's blood pressure: Elevated blood pressure Blood pressure disposition: Referred to PCP Impression Primary Impression: Pneumonitis Additional Impressions: Inhalation of noxious fumes Chest pain Transaminitis Scribe Attestation The scribe's documentation has been prepared under my direction and personally reviewed by me in its entirety. I confirm that the note above accurately reflects all work, treatment, procedures, and medical decision making performed by me. Departure Information Dispostion Home / Self-Care Referrals Toby Paz M.D. (PCP) Forms Call Back Authorization, HOME CARE DOCUMENTATION FORM, IMPORTANT VISIT INFORMATION Patient Instructions Chest Pain - [facility], ED Inhalation Chemical, My [facility] Additional Instructions Please return to the emergency department if you have worsening or recurrent symptoms not amenable to at-home treatment. Please call for a follow-up appointment with her primary care physician. Please take your medications as prescribed. If you have other concerns and/or complaints please feel free to also call your primary care physician's office or return the ED for further evaluation, management, and treatment. As discussed please follow-up with your PCP within the week. Please also discuss her elevated liver enzymes. Please avoid Tylenol and alcohol. Please also discuss follow-up given her family history of heart disease with her primary care physician. Take your medications as prescribed. You have been examined and treated today on an emergency basis only. This is not a substitute for, or an effort to provide, complete comprehensive medical care. It is impossible to recognize and treat all injuries or illnesses in a single emergency department visit. It is therefore important that you follow up closely with [facility], your PCP, and/or your specialist(s). Call as soon as possible for an appointment. Thank you for your time and consideration. I look forward to speaking with you again soon. Please don't hesitate to call us if you have any questions. Problem Qualifiers Additional Impressions: Inhalation of noxious fumes Encounter type: initial encounter Injury intent: accidental or unintentional Qualified Codes: T59.91XA - Toxic effect of unspecified gases, fumes and vapors, accidental (unintentional), initial encounter Chest pain Chest pain type: chest pain on breathing Qualified Codes: R07.1 - Chest pain on breathing
[2017-04-07 13:57] VITALS: O2SAT 95
[2017-04-07] MEDS ORDERED: OPTIRAY 320 IV PRN (14:00)
--- NOTE | 2017-04-07 14:00 | DIAGNOSTIC IMAGING REPORT ---
CHEST ONE VIEW PORTABLE HISTORY: 51 years-old Male CHEST PAIN acute atypical chest pain COMPARISON: Chest radiograph 05/18/2016, CTA of the chest 03/28/2016 TECHNIQUE: Portable AP view of the chest FINDINGS: The cardiomediastinal and hilar silhouettes are within normal limits. There is no pneumothorax, pleural effusion, focal airspace consolidation or overt pulmonary edema. Bones of the chest appear grossly intact. IMPRESSION: No acute process. The above report was generated using voice recognition software. It may contain grammatical, syntax or spelling errors. Electronically signed by: Marcial Brown M.D. 04/07/2017 1:59 PM Dictated Date/Time: 04/07/2017 1:57 PM
[2017-04-07 14:02] LABS: BASO % 0.5 %; BASO ABS # 0.05 K/uL (0-0.2); EOS % 5.5 %; EOS ABS # 0.53 K/uL (0-0.5); HEMATOCRIT 47.1 % (42-52); HEMOGLOBIN 16.6 g/dL (14.0-18.0); IG# 0.05 K/uL (0.00-0.02); LYMPH % 24.9 %; LYMPH ABS # 2.42 K/uL (1.2-3.4); MEAN CELL VOLUME 96.7 fL (80-100); MEAN CORPUSCULAR HEMOGLOBIN 34.1 pg (25-34); MEAN CORPUSCULAR HGB CONC 35.2 g/dl (32-36); MONO % 10.4 %; MONO ABS # 1.01 K/uL (0.11-0.59); NEUT % 58.2 %; NEUT ABS # 5.65 K/uL (1.4-6.5); PLATELET COUNT 188 K/uL (130-400); RED CELL DISTRIBUTION WIDTH CV 13.2 % (11.5-14.5); RED CELL DISTRIBUTION WIDTH SD 46.5 fL (36.4-46.3); WHITE BLOOD COUNT 9.71 K/uL (4.8-10.8)
[2017-04-07 14:07] LABS: PTT PATIENT 25.4 SECONDS (21.0-31.0)
[2017-04-07 14:21] LABS: ALBUMIN 3.5 gm/dl (3.4-5.0); ALT/SGPT 383 U/L (12-78); AST/SGOT 239 U/L (15-37); BLOOD UREA NITROGEN 13 mg/dl (7-18); CALCIUM 8.6 mg/dl (8.5-10.1); CARBON DIOXIDE 24 mmol/L (21-32); CREATININE 0.79 mg/dl (0.60-1.40); GLUCOSE 93 mg/dl (70-99); LIPASE 96 U/L (73-393); POTASSIUM 4.1 mmol/L (3.5-5.1); SODIUM 139 mmol/L (136-145)
[2017-04-07 14:23] LABS: ALKALINE PHOSPHATASE 93 U/L (45-117); TOTAL PROTEIN 7.1 gm/dl (6.4-8.2)
--- NOTE | 2017-04-07 14:58 | DIAGNOSTIC IMAGING REPORT ---
(CHEST FOR PE) ANGIO WITH CT DOSE: 621.09 mGy.cm HISTORY: 51 years-old Male presents with acute atypical chest pain TECHNIQUE: Multiple CTA images of the chest were obtained after the intravenous administration of 89 ml Optiray 320. Coronal and sagittal MIPS were obtained from the axial data set and were submitted for review. A dose lowering technique was utilized adhering to the principles of ALARA. COMPARISON: Chest radiograph 04/07/2017, CTA 03/28/2016. FINDINGS: CTA: Heart is normal in size without pericardial effusion. Mild atherosclerosis of the aorta without aneurysm or dissection. Imaged proximal great vessels appear to be patent. Mild dilation of the aortic isthmus and proximal descending thoracic aorta is noted, 3.3 cm, unchanged. Mild tortuosity of the descending thoracic aorta. The pulmonary arterial tree is opacified to level of the proximal subsegmental branches and demonstrates no focal filling defects to suggest pulmonary thromboembolic disease. CT CHEST: No dominant thyroid lesion identified. No pathologic adenopathy of the chest. Mild dependent subsegmental bibasilar atelectasis. There is no pneumothorax, pleural effusion, focal airspace consolidation or overt pulmonary edema. Scattered subcentimeter thin-walled cysts are seen to the lungs. Central airways are patent. Calcific granulomas are seen throughout the spleen. Mild nonspecific bilateral perinephric stranding. Probable renal sinus cysts are seen on the left. No acute amount the of the imaged upper abdomen. Soft tissues are unremarkable. Bones appear intact. IMPRESSION: 1. No acute intrathoracic abnormality identified, specifically no acute aortic pathology or evidence of pulmonary thromboembolic disease. 2. Minimal subsegmental dependent bibasilar atelectasis without focal airspace consolidation to suggest pneumonia. 3. No pathologic adenopathy. The above report was generated using voice recognition software. It may contain grammatical, syntax or spelling errors. Electronically signed by: Marcial Brown M.D. 04/07/2017 2:56 PM Dictated Date/Time: 04/07/2017 2:50 PM
[2017-04-07 15:48] VITALS: BP 160/118; PULSE 103; O2SAT 95
== END 2017-04-07 16:12 | disposition home or self-care (01) ==
LOC: C.EDB 12:16 → C.EDC 16:12
DX: J18.9 Pneumonia, unspecified organism (principal); T59.91XA Toxic effect of unspecified gases, fumes and vapors, accidental (unintentional), initial encounter; X58.XXXA Exposure to other specified factors, initial encounter; R07.9 Chest pain, unspecified; R74.0 Nonspecific elevation of levels of transaminase and lactic acid dehydrogenase [LDH]; K21.9 Gastro-esophageal reflux disease without esophagitis; Z82.49 Family history of ischemic heart disease and other diseases of the circulatory system; Z82.0 Family history of epilepsy and other diseases of the nervous system; Z82.3 Family history of stroke

== ENCOUNTER 2017-07-10 17:46 | Inpatient (IN) | payer OTHER ==
[~2017-07-10] VITALS: Ht 175.3 cm; Wt 93.1 kg
[~2017-07-10 17:46] MED LIST changes: -FAMO40TA6 PO; -ZYR10 PO
[2017-07-10] MEDS ORDERED: SODIUM CHLORIDE 0.9% 1000ML 1,000 ML IV STA ×2 (18:07→19:16)
[2017-07-10] MEDS ORDERED: HYDROmorphone INJ 1 MG/ML SYR IV STA (18:07)
[2017-07-10] MEDS ORDERED: ONDANSETRON INJ 2 MG/ML 2 ML VIAL IV STA (18:07)
--- NOTE | 2017-07-10 18:10 | EMERGENCY ROOM VISIT NOTE ---
History Report prepared by Vu: Alex Reina Under the Supervision of: Dr. Olvin Mcdonald M.D. First contact with patient: 18:02 Chief Complaint: GI ASSESSMENT Stated Complaint: 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- REFERRED History of Present Illness The patient is a 51 year old male who presents to the Emergency Room for evaluation of abdominal discomfort. Notes 1 week of abdominal bloating, cramping, nausea, vomiting. Pain up to 9/10. Nothing makes better nor worse. He has history SBO 4 years ago requiring resection. He has some mild SOB due to not being able to breath in deeply with abdominal pain. Notes CXR/Abdo xrays today at [facility] reveals SBO for which he was send to ED. He had CTA Chest 3 months ago for pneumonitis without evidence of pneumonia. No fevers, chills, leg swelling, calf pain, travel, cp, syncope, diarrhea nor other symptoms. He has not taken any medications for this. Source of History: patient Onset: 1 week ago Position: abdomen (abdominal distension), other (lungs) Symptom Intensity: abdominal pain rated as 9/10 Quality: other (SOB) Timing: worsening Associated Symptoms: + SOB, + nausea, + vomiting, No fevers Review of Systems See HPI for pertinent positives & negatives. A total of 10 systems reviewed and were otherwise negative. Past Medical & Surgical Medical Problems: (1) GERD (gastroesophageal reflux disease) (2) H/O angioedema (3) Hx SBO (4) Intestinal obstruction (5) Migraine Surgical Problems: (1) H/O exploratory laparotomy (2) History of appendectomy Family History FH: CHF (congestive heart failure) MOTHER FH: OK (myocardial infarction) FATHER FH: Parkinson's disease FATHER FH: stroke FATHER Social History Smoking Status: Current Some Day Smoker Smokeless Tobacco Use: He states drinking periodically. He denies drinking regularly. Alcohol Use: occasionally Drug Use: none Marital Status: Housing Status: lives with family Occupation Status: employed Current/Historical Medications Scheduled Aspirin (Aspirin Ec), 81 MG PO DAILY Atorvastatin (Lipitor), 20 MG PO DAILY Lansoprazole (Prevacid), 30 MG PO BID Metoprolol Succinate (Metoprolol Succinate ER), 25 MG PO DAILY Pantoprazole (Pantoprazole Sodium), 40 MG PO DAILY Sertraline HCl (Sertraline HCl), 25 MG PO DAILY Scheduled PRN Cetirizine Hcl (Zyrtec), 10 MG PO Q12 PRN for Allergic Reaction Cyclobenzaprine HCl (Cyclobenzaprine HCl), 10 MG PO TID PRN for Muscle Spasm Epinephrine (Epinephrine), 0.3 MG IM UD PRN for Allergic Reaction Prednisone (Prednisone), 20 MG PO UD PRN for Allergic Reaction Tramadol HCl (Tramadol HCl), 50 MG PO Q6H PRN for Pain Allergies Coded Allergies: No Known Allergies (Unverified , NONE, 04/07/17) Physical Exam Vital Signs Date Time Temp Pulse Resp B/P (MAP) Pulse Ox O2 Delivery O2 Flow Rate FiO2 07/10/17 19:21 116 20 159/111 98 Room Air 07/10/17 18:13 120 07/10/17 18:00 36.9 127 16 156/111 93 Room Air Physical Exam GENERAL: Patient is very uncomfortable appearing and in moderate distress. EYES: No scleral icterus, unremarkable pupils. ENT: Mucous membranes moist, no nasal congestion. NECK: No masses appreciated, no meningismus, trachea is midline. RESPIRATORY: No dyspnea. Clear to auscultation and equal bilaterally. No wheeze , no rhonchi. CARDIOVASCULAR: Tachycardiac and regular rhythm. No murmurs, rubs, gallops appreciated. GASTROINTESTINAL: Diffuse distension of abdomen with diffuse tenderness to palpation. Incision scar on right lower mid abdomen. Abdomen soft, no peritonitis. Hypoactive bowel sounds. No masses appreciated. BACK: No midline tenderness, no CVA tenderness EXTREMITIES: Normal motion all extremities, no cyanosis, no edema. NEUROLOGIC: Alert and oriented, no acute motor or sensory deficits, no focal weakness, cranial nerves grossly intact. SKIN: No rash, no jaundice, no diaphoresis. Medical Decision & Procedures ER Provider Diagnostic Interpretation: Radiology results and stated below per my review and radiologist interpretation: CT SCAN OF THE ABDOMEN AND PELVIS WITH IV CONTRAST CLINICAL HISTORY: Generalized abdominal pain. COMPARISON STUDY: Abdominal CT dated 03/28/2016. TECHNIQUE: Following the IV administration of 95 cc of Optiray 320, CT scan of the abdomen and pelvis is performed from the lung bases to the proximal femora. Images are reviewed in the axial, sagittal, and coronal planes. IV contrast was administered without complication. A dose lowering technique was utilized adhering to the principles of ALARA. CT DOSE: 648.49 mGy.cm FINDINGS: Lung bases: The heart is normal in size and without pericardial effusion. The lung bases are clear noting dependent atelectasis. There is a tiny hiatal hernia. Liver: The contrast-enhanced liver is mildly enlarged measuring over 18 cm in length. The liver demonstrates diffusely diminished attenuation consistent with hepatic steatosis. There is no intrahepatic biliary ductal dilatation. The hepatic veins and portal veins are patent. A 1.2 cm hypodensity in the inferior right lobe seen on image #160 is unchanged and likely represents a small hemangioma. This is incomplete characterized on today's examination. Gallbladder: Unremarkable. Spleen: Normal in size and attenuation. There are scattered calcified splenic granulomas. Pancreas: Unremarkable. Adrenal glands: Unremarkable. Kidneys: The contrast enhanced kidneys are normal in size and without hydronephrosis. The kidneys enhance symmetrically. Parapelvic cysts are suggested on the left. Abdominal vasculature: The abdominal aorta is normal in course and caliber noting mild atherosclerotic calcification. Bowel: The small bowel and colon are normal in course and caliber. The appendix is not identified and reported surgically absent. Peritoneum: There is no intraperitoneal free air or abdominal ascites. There is a fat-containing umbilical hernia. Lymphadenopathy: None. Pelvic viscera: The bladder, prostate, and seminal vesicles are normal as visualized Skeletal structures: No lytic or blastic lesions are seen. There are bilateral pars defects at L5. IMPRESSION: 1. There are no acute infectious or inflammatory findings in the abdomen or pelvis. 2. Hepatomegaly and hepatic steatosis. 3. Additional findings as above. Electronically signed by: Anderson Henry M.D. 07/10/2017 7:06 PM Dictated Date/Time: 07/10/2017 7:01 PM Laboratory Results 07/10/17 18:10 Red Blood Count 4.97, Mean Corpuscular Volume 95.8, Mean Corpuscular Hemoglobin 34.2, Mean Corpuscular Hemoglobin Concent 35.7, Mean Platelet Volume 11.0, Neutrophils (%) (Auto) 58.4, Lymphocytes (%) (Auto) 26.7, Monocytes (%) (Auto) 9.4, Eosinophils (%) (Auto) 4.5, Basophils (%) (Auto) 0.5, Neutrophils # (Auto) 6.54, Lymphocytes # (Auto) 2.99, Monocytes # (Auto) 1.05, Eosinophils # (Auto) 0.51, Basophils # (Auto) 0.06 07/10/17 18:10 Test 07/10/17 18:10 07/10/17 18:26 07/10/17 18:34 White Blood Count 11.21 K/uL (4.8-10.8) Red Blood Count 4.97 M/uL (4.7-6.1) Hemoglobin 17.0 g/dL (14.0-18.0) Hematocrit 47.6 % (42-52) Mean Corpuscular Volume 95.8 fL (80-100) Mean Corpuscular Hemoglobin 34.2 pg (25-34) Mean Corpuscular Hemoglobin Concent 35.7 g/dl (32-36) Platelet Count 182 K/uL (130-400) Mean Platelet Volume 11.0 fL (7.4-10.4) Neutrophils (%) (Auto) 58.4 % Lymphocytes (%) (Auto) 26.7 % Monocytes (%) (Auto) 9.4 % Eosinophils (%) (Auto) 4.5 % Basophils (%) (Auto) 0.5 % Neutrophils # (Auto) 6.54 K/uL (1.4-6.5) Lymphocytes # (Auto) 2.99 K/uL (1.2-3.4) Monocytes # (Auto) 1.05 K/uL (0.11-0.59) Eosinophils # (Auto) 0.51 K/uL (0-0.5) Basophils # (Auto) 0.06 K/uL (0-0.2) RDW Standard Deviation 50.4 fL (36.4-46.3) RDW Coefficient of Variation 14.3 % (11.5-14.5) Immature Granulocyte % (Auto) 0.5 % Immature Granulocyte # (Auto) 0.06 K/uL (0.00-0.02) Prothrombin Time 10.4 SECONDS (9.0-12.0) Prothromb Time International Ratio 1.0 (0.9-1.1) Activated Partial Thromboplast Time 25.3 SECONDS (21.0-31.0) Partial Thromboplastin Ratio 1.0 D-Dimer 840 ug/L FEU (0-500) Est Creatinine Clear Calc Drug Dose 99.8 ml/min Estimated GFR () 102.3 Estimated GFR (Non- 88.3 BUN/Creatinine Ratio 15.0 (10-20) Calcium Level 9.0 mg/dl (8.5-10.1) Total Bilirubin 0.7 mg/dl (0.2-1) Direct Bilirubin 0.2 mg/dl (0-0.2) Aspartate Amino Transf (AST/SGOT) 87 U/L (15-37) Alanine Aminotransferase (ALT/SGPT) 170 U/L (12-78) Alkaline Phosphatase 113 U/L (45-117) Total Protein 7.4 gm/dl (6.4-8.2) Albumin 3.4 gm/dl (3.4-5.0) Lipase 79 U/L (73-393) Bedside Hemoglobin 17.0 g/dl (14.0-18.0) Bedside Hematocrit 50 % (42-52) Bedside Sodium 141 mEq/L (135-144) Bedside Potassium 3.7 mEq/L (3.3-5.0) Bedside Chloride 106 mEq/L (101-112) Bedside Total CO2 23 mEq/l (24-31) Anion Gap 17.0 mmol/L (16-25) Bedside Blood Urea Nitrogen 15 mg/dl (7-18) Bedside Creatinine 0.8 mg/dl (0.6-1.3) Bedside Glucose (other) 142 mg/dl (70-99) Bedside Ionized Calcium (Doug) 1.21 mmol/l (1.12-1.32) Total Creatine Kinase 96 U/L (39-308) Creatine Kinase MB 1.1 ng/ml (0.5-3.6) Creatine Kinase MB Ratio 1.1 (0-3.0) Troponin I < 0.015 ng/ml (0-0.045) Thyroid Stimulating Hormone (TSH) 1.520 uIu/ml (0.300-4.500) Bedside Lactic Acid Venous 2.15 mmol/L (0.90-1.70) Laboratory results as reviewed by me. Medications Administered Medications (Trade) Dose Ordered Sig/Solitario Route Start Time Stop Time Status Last Admin Dose Admin Sodium Chloride 1,000 ml @ 999 mls/hr Q1H1M STAT IV 07/10/17 18:07 07/10/17 19:07 DC 07/10/17 18:13 999 MLS/HR Hydromorphone HCl (Dilaudid Inj) 1 mg NOW STAT IV 07/10/17 18:07 07/10/17 18:09 DC 07/10/17 18:16 1 MG Ondansetron HCl (Zofran Inj) 4 mg NOW STAT IV 07/10/17 18:07 07/10/17 18:09 DC 07/10/17 18:16 4 MG Lorazepam (Ativan Inj) 1 mg NOW STAT IV 07/10/17 18:26 07/10/17 18:27 DC 07/10/17 18:37 1 MG Sodium Chloride 1,000 ml @ 999 mls/hr Q1H1M STAT IV 07/10/17 19:16 07/10/17 20:16 DC 07/10/17 19:24 999 MLS/HR ECG Per My Interpretation Indication: SOB/dyspnea Rate (beats per minute): 115 Rhythm: sinus tachycardia Findings: ST depression (Lateral), no ectopy, other (QTc of 453) ED Course 1801: The patient was evaluated in room C12B. A complete history and physical exam was performed. 1814: I checked on the patient. He notes feeling increased nausea after Dilaudid and that the Zofran did not alleviate his nausea. 1918: I checked on the patient and he notes that he feels better. His heart rate is 115 after a liter of fluids. He is agreeable to hospitalist evaluation. 0: Discussed the patient's case with Dr. Marquez. The patient will be evaluated for further treatment and disposition. 0: Upon reevaluation, the patient is resting. Discussed results and treatment plan with the patient. He verbalized understanding and agreement with the treatment plan. The patient will be evaluated for further management. Medical Decision Differential: Gastroenteritis, Food Borne, Esophageal Perforation, , Electrolyte Abnormality, Dehydration, Intraabdominal Infection, UTI/ Pyelonephritis, Bowel Obstruction, Biliary Pathology, amongst other pathology entertained. 51 yr old male arrives from clinic for evaluation of possible small bowel obstruction. His history, exam are both consistent with this though he is a bit more uncomfortable and tachycardic than I like and felt that CT abdo/pelv reasonable. Interestingly CT abdo/pelv is negative for SBO, thus I am unclear cause. Notes some SOB secondary to abdominal discomfort though no hypoxic. Tachy persistent despite IV fluids and pain medications. Given further IV fluids and added on TSH, Trop. I do not feel this is PE but with persistent tachy I did add on Dimer for medicine team after they requested it. It is unclear what cause of his abdominal issues are, but with persistent tachy, discomfort, and mild lactic acid elevation will need to come in. No fevers nor hypotension to suggest blood cultures. Head Trauma GCS Score: 15 Medication Reconcilliation Current Medication List: was personally reviewed by me Blood Pressure Screening Patient's blood pressure: Elevated blood pressure Blood pressure disposition: Elevated BP felt to be situational Consults Time Called: 1914 Consulting Physician: Dr. Marquez Returned Call: 1919 Discussed the patient's case. The patient will be evaluated for further treatment and disposition. Impression Primary Impression: Tachycardia Additional Impressions: Elevated lactic acid level Abdominal pain, diffuse Scribe Attestation The scribe's documentation has been prepared under my direction and personally reviewed by me in its entirety. I confirm that the note above accurately reflects all work, treatment, procedures, and medical decision making performed by me. Departure Information Dispostion Being Evaluated By Hospitalist Referrals Toby Paz M.D. (PCP) Patient Instructions My [facility] Health Problem Qualifiers
[2017-07-10] MEDS ORDERED: LORAZEPAM 2 MG/ML 1 ML VIAL IV STA (18:26)
[2017-07-10 18:30] LABS: BASO % 0.5 %; BASO ABS # 0.06 K/uL (0-0.2); EOS % 4.5 %; EOS ABS # 0.51 K/uL (0-0.5); HEMATOCRIT 47.6 % (42-52); IG# 0.06 K/uL (0.00-0.02); LYMPH % 26.7 %; LYMPH ABS # 2.99 K/uL (1.2-3.4); MEAN CELL VOLUME 95.8 fL (80-100); MEAN CORPUSCULAR HEMOGLOBIN 34.2 pg (25-34); MEAN CORPUSCULAR HGB CONC 35.7 g/dl (32-36); MONO % 9.4 %; MONO ABS # 1.05 K/uL (0.11-0.59); NEUT % 58.4 %; NEUT ABS # 6.54 K/uL (1.4-6.5); PLATELET COUNT 182 K/uL (130-400); RED CELL DISTRIBUTION WIDTH CV 14.3 % (11.5-14.5); RED CELL DISTRIBUTION WIDTH SD 50.4 fL (36.4-46.3); WHITE BLOOD COUNT 11.21 K/uL (4.8-10.8)
[2017-07-10 18:46] LABS: ISTAT CREATININE 0.8 mg/dl (0.6-1.3); ISTAT IONIZED CALCIUM 1.21 mmol/l (1.12-1.32); ISTAT POTASSIUM 3.7 mEq/L (3.3-5.0)
[2017-07-10 19:00] LABS: ALBUMIN 3.4 gm/dl (3.4-5.0); CREATININE 0.98 mg/dl (0.60-1.40); TOTAL PROTEIN 7.4 gm/dl (6.4-8.2)
--- NOTE | 2017-07-10 19:07 | DIAGNOSTIC IMAGING REPORT ---
CT SCAN OF THE ABDOMEN AND PELVIS WITH IV CONTRAST CLINICAL HISTORY: Generalized abdominal pain. COMPARISON STUDY: Abdominal CT dated 03/28/2016. TECHNIQUE: Following the IV administration of 95 cc of Optiray 320, CT scan of the abdomen and pelvis is performed from the lung bases to the proximal femora. Images are reviewed in the axial, sagittal, and coronal planes. IV contrast was administered without complication. A dose lowering technique was utilized adhering to the principles of ALARA. CT DOSE: 648.49 mGy.cm FINDINGS: Lung bases: The heart is normal in size and without pericardial effusion. The lung bases are clear noting dependent atelectasis. There is a tiny hiatal hernia. Liver: The contrast-enhanced liver is mildly enlarged measuring over 18 cm in length. The liver demonstrates diffusely diminished attenuation consistent with hepatic steatosis. There is no intrahepatic biliary ductal dilatation. The hepatic veins and portal veins are patent. A 1.2 cm hypodensity in the inferior right lobe seen on image #160 is unchanged and likely represents a small hemangioma. This is incomplete characterized on today's examination. Gallbladder: Unremarkable. Spleen: Normal in size and attenuation. There are scattered calcified splenic granulomas. Pancreas: Unremarkable. Adrenal glands: Unremarkable. Kidneys: The contrast enhanced kidneys are normal in size and without hydronephrosis. The kidneys enhance symmetrically. Parapelvic cysts are suggested on the left. Abdominal vasculature: The abdominal aorta is normal in course and caliber noting mild atherosclerotic calcification. Bowel: The small bowel and colon are normal in course and caliber. The appendix is not identified and reported surgically absent. Peritoneum: There is no intraperitoneal free air or abdominal ascites. There is a fat-containing umbilical hernia. Lymphadenopathy: None. Pelvic viscera: The bladder, prostate, and seminal vesicles are normal as visualized Skeletal structures: No lytic or blastic lesions are seen. There are bilateral pars defects at L5. IMPRESSION: 1. There are no acute infectious or inflammatory findings in the abdomen or pelvis. 2. Hepatomegaly and hepatic steatosis. 3. Additional findings as above. Electronically signed by: Anderson Henry M.D. 07/10/2017 7:06 PM Dictated Date/Time: 07/10/2017 7:01 PM
[2017-07-10] MEDS ORDERED: SERT1TAB88 PO (19:12)
[2017-07-10] MEDS ORDERED: ULT50 PO (19:12)
[2017-07-10] MEDS ORDERED: PRED20TA PO (19:12)
[2017-07-10] MEDS ORDERED: EPIN0.3I14 IM (19:12)
[2017-07-10] MEDS ORDERED: FLX10 PO (19:12)
[2017-07-10] MEDS ORDERED: CETI10TA10 PO (19:12)
[2017-07-10] MEDS ORDERED: ASPI81TA28 PO (19:12)
[2017-07-10] MEDS ORDERED: ATOR-22 PO (19:12)
[2017-07-10] MEDS ORDERED: PANT40TA2 PO (19:12)
[2017-07-10] MEDS ORDERED: TPRSR/25 PO (19:12)
[2017-07-10] MEDS ORDERED: LANS30CA63 PO (19:12)
[2017-07-10 19:23] LABS: POTASSIUM 3.8 mmol/L (3.5-5.1)
[2017-07-10 19:53] LABS: CKMB 1.1 ng/ml (0.5-3.6)
[2017-07-10] MEDS ORDERED: ONDANSETRON INJ 2 MG/ML 2 ML VIAL IV PRN (20:45)
[2017-07-10] MEDS ORDERED: METOPROLOL TARTRATE 1 MG/ML VIAL ONE (21:03)
[2017-07-10] MEDS ORDERED: HYDROmorphone INJ 0.5 MG/0.5 ML SYR ONE (21:03)
[2017-07-10 21:32] VITALS: BP 159/102; PULSE 95; TEMP 37.1; O2SAT 91; Ht 175.3 cm; Wt 93.1 kg
[2017-07-10] MEDS ORDERED: OPTIRAY 320 IV PRN ×2 (21:45→22:15)
[2017-07-10 22:12] LABS: PTT PATIENT 25.3 SECONDS (21.0-31.0)
[2017-07-10] MEDS: NSS + 20MEQ KCL 1000ML 1,000 ML IV SCH (22:20)
--- NOTE | 2017-07-10 22:22 | DIAGNOSTIC IMAGING REPORT ---
CT ANGIOGRAM OF THE CHEST CLINICAL HISTORY: Atypical chest pain. COMPARISON STUDY: Chest x-ray and CT dated 04/07/2017. TECHNIQUE: Following the IV administration of 95 cc of Optiray 320, CT angiogram of the chest was performed from the upper abdomen to the thoracic inlet utilizing the pulmonary embolus protocol. Images are reviewed in the axial, sagittal, and coronal planes. 3-D MIPS images are created and assessed. IV contrast was administered without complication. The patient was injected with contrast for 2 examinations today as deemed medically necessary by the referring clinician. A dose lowering technique was utilized adhering to the principles of ALARA. CT DOSE: 677.33 mGy.cm FINDINGS: Thyroid: Imaged portions of the thyroid gland are normal in size and attenuation. Thoracic aorta: There is mild atherosclerotic calcification of the thoracic aorta, which is normal in caliber and demonstrates standard 3-vessel arch anatomy. No dissection is seen. Pulmonary vasculature: The pulmonary trunk is normal in caliber. There are no filling defects identified in main, lobar, or segmental pulmonary branches to suggest pulmonary embolus. Heart: The heart is normal in size and configuration, and without pericardial effusion. Lungs and pleural spaces: The lungs and pleural spaces are clear noting dependent atelectasis. The trachea and central airways are patent. Mediastinum: There is no mediastinal lymphadenopathy. Monse: Clear. Axillae: There is no axillary lymphadenopathy. Upper abdomen: A tiny hiatal hernia is identified. There is evidence of hepatic steatosis. Excreted contrast is present within the renal collecting system bilaterally. Small calcified granulomas are noted in the spleen. Skeletal structures: No lytic or blastic bony lesions are seen. IMPRESSION: 1. There is no evidence of pulmonary embolus in the main, lobar, or segmental pulmonary arteries. 2. The lungs are clear. Electronically signed by: Anderson Henry M.D. 07/10/2017 10:21 PM Dictated Date/Time: 07/10/2017 10:16 PM
--- NOTE | 2017-07-10 22:36 | HISTORY & PHYSICAL EXAMINATION ---
DATE OF ADMISSION: 07/10/2017 PRIMARY CARE PHYSICIAN: Dr. Paz. CHIEF COMPLAINT: Shortness of breath with abdominal distention and abdominal pain for last 1 week. HISTORY OF PRESENT COMPLAINT: He is a 51-year-old male with significant past medical history of migraine, family history of ischemic heart disease, GERD, history of angioedema, allergic rhinitis, hyperlipidemia and also urticaria, apparently has been complaining of lower abdominal pain, abdominal distention associated with shortness of breath for the last 1 week. He was seen in the [facility] this afternoon and abdominal series did show small-bowel obstruction. He has a history of a small-bowel obstruction in the past. From that point, he was sent to Emergency Room. In the ER, he continues to have abdominal distention and some nausea. No vomiting. He did have some pain and shortness of breath persisted in a mild fashion but he remained tachycardic throughout the whole stay and his CAT scan of the abdomen and pelvis did not show any intestinal obstruction or any other pathology but his D-dimer is elevated to more than 800. From that point, he is going to have a CAT scan of the chest to rule out pulmonary embolism, but he will be admitted to telemetry unit with a possible clinical diagnosis of SBO/ileus. PAST MEDICAL HISTORY: Significant for a classical migraine, family history of ischemic heart disease, angioedema, hyperlipidemia, allergic rhinitis and also history of urticaria. PAST SURGICAL HISTORY: Significant for bowel obstruction surgery 2012. At that time, he had extensive lysis of adhesions and removal of ruptured appendix in 1977. FAMILY HISTORY: Father did have heart disease, history of IA at the age of 40. Mother did have some neurological disorder and father did have a stroke as well and migraine. SOCIAL HISTORY: Single. He is a smoker. He drinks alcohol occasionally and he has been ambulant. ALLERGIES: NKDA. MEDICATIONS: As an outpatient, he has been taking aspirin 81 mg daily, atorvastatin 20 mg daily, Zyrtec 10 mg daily, cyclobenzaprine 10 mg daily, metoprolol succinate 25 mg daily, Protonix 40 mg daily, prednisone 20 mg as directed, tramadol 50 mg as directed, Prevacid 30 mg b.i.d. and sertraline 25 mg daily. REVIEW OF SYSTEMS: Other systemic review unremarkable except as mentioned in history of present complaint. PHYSICAL EXAMINATION: GENERAL: On examination in the Emergency Room, he is still having some discomfort with minimal shortness of breath at rest. VITAL SIGNS: Temperature 36.9; pulse is 116, it was 127, 3 hours back. Blood pressure was 159/111, saturation 98% on room air. HEENT: Unremarkable. NECK: Supple, no JVD, no bruit. CHEST: Clear. HEART: S1, S2. No murmur. ABDOMEN: Distended, soft. Tender all over. Bowel sounds present. Difficult to feel for organs. EXTREMITIES: Negative for any edema. MUSCULOSKELETAL: Did not show acute arthritis involving any joint. CENTRAL NERVOUS SYSTEM: He was alert, awake, oriented x3, no focal sensory and/or motor deficit appreciated. LABORATORY DATA: Noted today, white count was 11.21, H&H 17.0/50, platelet was 182. Sodium 141, potassium 3.7, chloride 106, carbon dioxide 22, BUN 15, creatinine 0.98. Random glucose 140. LFT showed AST of 87, ALT of 170, and alkaline phosphatase 113. CK, CK-MB unremarkable. Troponin less than 0.015. TSH 1.520. D-dimer was 840. IMAGING: CT of the abdomen and pelvis reported as no acute infectious and/or inflammatory finding in the abdomen or pelvis, hepatomegaly and hepatic steatosis are the additional findings as above but nothing significant. He had an upper GI series done in the clinic [facility] that was reported as small bowel obstructions. He will have CTA to rule out pulmonary embolism from this point. IMPRESSION AND PLAN: 1. Clinically an acute abdomen secondary to intestinal obstruction/ileus. He is usually constipated, moves his bowels about every 2-3 days, last bowel movement [address] scan did not suggest any obstruction, but outpatient abdominal series did show that he has small bowel obstruction. NG tube will be put in. We will keep him n.p.o., will give IV fluid and surgical evaluation in the morning. 2. Persistent tachycardia with shortness of breath, does not have any leg swelling to suggest any deep vein thrombosis at this time. D-dimer is elevated. We will get a CTA to rule out pulmonary embolism. His troponin seems to be negative at this time. 3. Gastroesophageal reflux disease. We will continue with IV Protonix in the hospital. 4. Hyperlipidemia. His venous study will be on hold due to n.p.o. status. 5. History of angioedema and another allergic rhinitis and no acute findings at this time.. 6. Deep vein thrombosis prophylaxis. Subcutaneous heparin. 7. Code status: He will be full code. In my clinical assessment, the beneficiary meets criteria as per CMS for 2 midnights stay in the hospital. MARILYN
[2017-07-10] MEDS ORDERED: BENZOCAIN/TETRACA/BUTAM SPRAY 200 APPLN/20 GM SPRY ONE (22:42)
[2017-07-10] MEDS: HEPARIN SOD 5000 UNIT/0.5 ML CARP SQ SCH (23:38)
[2017-07-10] MEDS: METOPROLOL TARTRATE 1 MG/ML VIAL IV. SCH (23:39)
[2017-07-10 23:40] VITALS: PULSE 94; TEMP 36.9; O2SAT 95
[2017-07-10] MEDS: HYDROmorphone INJ 0.5 MG/0.5 ML SYR IV PRN (23:45)
[2017-07-11 00:45] VITALS: BP_SYST 169; BP_SYST 174; BP_DIAS 117; BP_DIAS 119
[2017-07-11] MEDS: HYDROmorphone INJ 0.5 MG/0.5 ML SYR IV PRN (03:45)
[2017-07-11 03:48] VITALS: BP 155/99; PULSE 92; TEMP 37.2; O2SAT 95
[2017-07-11 05:25] LABS: HEMATOCRIT 45.2 % (42-52); HEMOGLOBIN 15.6 g/dL (14.0-18.0); MEAN CELL VOLUME 97.8 fL (80-100); MEAN CORPUSCULAR HEMOGLOBIN 33.8 pg (25-34); MEAN CORPUSCULAR HGB CONC 34.5 g/dl (32-36); MEAN PLATELET VOLUME 10.9 fL (7.4-10.4); PLATELET COUNT 162 K/uL (130-400); RED CELL DISTRIBUTION WIDTH CV 14.5 % (11.5-14.5); RED CELL DISTRIBUTION WIDTH SD 51.8 fL (36.4-46.3); WHITE BLOOD COUNT 8.42 K/uL (4.8-10.8)
[2017-07-11] MEDS: METOPROLOL TARTRATE 1 MG/ML VIAL IV. SCH ×2 (05:26→11:26)
[2017-07-11] MEDS: NSS + 20MEQ KCL 1000ML 1,000 ML IV SCH (05:26)
[2017-07-11] MEDS: HEPARIN SOD 5000 UNIT/0.5 ML CARP SQ SCH (05:27)
[2017-07-11 05:46] LABS: CALCIUM 8.2 mg/dl (8.5-10.1); CREATININE 0.85 mg/dl (0.60-1.40)
[2017-07-11 05:49] LABS: TOTAL PROTEIN 6.4 gm/dl (6.4-8.2)
[2017-07-11 08:00] VITALS: BP 139/73; PULSE 74; TEMP 36.5; O2SAT 96
[2017-07-11] MEDS ORDERED: PANTOprazole INJ 40 MG in SYRINGE 0 ML IV SCH (11:00)
--- NOTE | 2017-07-11 11:37 | Surgery Consultation ---
Consultation Date of Consultation: Jul 11, 2017. Attending Physician: Anabell Benavides M.D. Reason for Consultation: SBO/Ileus History of Present Illness Mauro is a 51 year-old male who presented to emergency department yesterday after a follow-up with his PCP who recommended he come to ER as abdominal x-ray showed signs of bowel obstruction. Mauro states he has had some lower abdominal pain and bloating for the past week with some shortness of breath. Last bowel movement was yesterday. Passing flatus today. He has history of small bowel obstruction in the past with surgical intervention by Dr. Marr in April 2012. History of Rupture appendicitis in 1977. In the ER, he had some nausea. No vomiting. CAT scan of the abdomen and pelvis did not show any intestinal obstruction or any other pathology. CT scan of the chest showed no evidence of pulmonary embolism as D-dimer elevated at 800. Since admission, patient states he is feeling better, no abdominal pain. Passing some flatus no bowel movement. Hungry. Past Medical/Surgical History Medical Problems: migraine YULIET angioedema allergic rhinitis hyperlipidemia urticaria Past Surgical History: 1. Ex lap, lysis of adhesion, repair of serosal tear 04/26/12 2. Open Appendectomy for rupture appendix 1977 Family History FH: CHF (congestive heart failure) MOTHER FH: AL (myocardial infarction) FATHER FH: Parkinson's disease FATHER FH: stroke FATHER Social History Smoking Status: Current Some Day Smoker Smokeless Tobacco Use: He states drinking periodically. He denies drinking regularly. Drug Use: none Marital Status: Housing Status: lives with family Occupation Status: employed Allergies Coded Allergies: No Known Allergies (Unverified , NONE, 04/07/17) Home Medications Scheduled Aspirin (Aspirin Ec), 81 MG PO DAILY Atorvastatin (Lipitor), 20 MG PO DAILY Lansoprazole (Prevacid), 30 MG PO BID Metoprolol Succinate (Metoprolol Succinate ER), 25 MG PO DAILY Pantoprazole (Pantoprazole Sodium), 40 MG PO DAILY Sertraline HCl (Sertraline HCl), 25 MG PO DAILY Scheduled PRN Cetirizine Hcl (Zyrtec), 10 MG PO Q12 PRN for Allergic Reaction Cyclobenzaprine HCl (Cyclobenzaprine HCl), 10 MG PO TID PRN for Muscle Spasm Epinephrine (Epinephrine), 0.3 MG IM UD PRN for Allergic Reaction Prednisone (Prednisone), 20 MG PO UD PRN for Allergic Reaction Tramadol HCl (Tramadol HCl), 50 MG PO Q6H PRN for Pain Current Inpatient Medications Current Inpatient Medications Medications (Trade) Dose Ordered Sig/Solitario Route Start Time Stop Time Status Last Admin Dose Admin Heparin Sodium (Porcine) (Heparin Sq 5000 Unit/0.5ml) 5,000 unit Q8H SQ 07/10/17 22:00 08/09/17 21:59 07/11/17 05:27 5,000 UNIT Potassium Chloride/Sodium Chloride 1,000 ml @ 125 mls/hr Q8H IV 07/10/17 22:00 08/09/17 21:59 07/11/17 05:26 125 MLS/HR Ondansetron HCl (Zofran Inj) 4 mg Q6H PRN IV 07/10/17 20:45 08/09/17 20:44 Pantoprazole Sodium 40 mg/ Syringe 10 ml @ 5 mls/min DAILY@11 IV 07/11/17 11:00 08/10/17 10:59 07/11/17 11:26 5 MLS/MIN Metoprolol Tartrate (Lopressor Iv) 5 mg Q6 IV. 07/11/17 00:00 08/10/17 00:00 07/11/17 11:26 5 MG Hydromorphone HCl (Dilaudid Inj) 0.5 mg Q3H PRN IV 07/10/17 21:00 07/24/17 20:59 07/11/17 03:45 0.5 MG Ioversol (Optiray 320) 125 ml UD PRN IV 07/10/17 21:45 07/14/17 21:44 Ioversol (Optiray 320) 95 ml UD PRN IV 07/10/17 22:15 07/14/17 22:14 Review of Systems Constitutional: No fever, No chills, No sweats Respiratory: No cough Cardiovascular: No chest pain Abdomen: + pain, + nausea, No vomiting, No diarrhea, No constipation, No GI bleeding Physical Exam Date Time Temp Pulse Resp B/P (MAP) Pulse Ox O2 Delivery O2 Flow Rate FiO2 07/11/17 11:26 74 139/73 07/11/17 08:00 Room Air 07/11/17 08:00 36.5 74 18 139/73 (95) 96 07/11/17 05:26 92 155/99 07/11/17 04:00 Room Air 07/11/17 03:48 37.2 92 17 155/99 (117) 95 Room Air 07/11/17 00:45 169/117 (134) 174/119 (137) 07/10/17 23:59 Room Air 07/10/17 23:40 36.9 94 17 95 Room Air 07/10/17 23:39 96 176/116 07/10/17 21:32 37.1 95 18 159/102 91 Room Air 07/10/17 21:11 90 18 176/124 92 07/10/17 21:05 175/115 07/10/17 20:56 112 20 175/115 95 Room Air 07/10/17 19:21 116 20 159/111 98 Room Air 07/10/17 18:13 120 07/10/17 18:00 36.9 127 16 156/111 93 Room Air General Appearance: WD/WN, no apparent distress Head: normocephalic, atraumatic Eyes: sclerae normal ENT: hearing grossly normal Neck: trachea midline Respiratory/Chest: lungs clear, normal breath sounds, no respiratory distress, no accessory muscle use Cardiovascular: regular rate, rhythm, no murmur Abdomen/GI: non tender, soft, no organomegaly, no pulsatile mass Back: normal inspection Extremities/Musculoskelatal: normal inspection Neurologic/Psych: alert, normal mood/affect, oriented x 3 Skin: normal color, warm/dry, no rash Laboratory Results Last 24 Hours Test 07/10/17 18:10 07/10/17 18:26 07/10/17 18:34 07/11/17 05:05 White Blood Count 11.21 K/uL 8.42 K/uL Red Blood Count 4.97 M/uL 4.62 M/uL Hemoglobin 17.0 g/dL 15.6 g/dL Hematocrit 47.6 % 45.2 % Mean Corpuscular Volume 95.8 fL 97.8 fL Mean Corpuscular Hemoglobin 34.2 pg 33.8 pg Mean Corpuscular Hemoglobin Concent 35.7 g/dl 34.5 g/dl Platelet Count 182 K/uL 162 K/uL Mean Platelet Volume 11.0 fL 10.9 fL Neutrophils (%) (Auto) 58.4 % Lymphocytes (%) (Auto) 26.7 % Monocytes (%) (Auto) 9.4 % Eosinophils (%) (Auto) 4.5 % Basophils (%) (Auto) 0.5 % Neutrophils # (Auto) 6.54 K/uL Lymphocytes # (Auto) 2.99 K/uL Monocytes # (Auto) 1.05 K/uL Eosinophils # (Auto) 0.51 K/uL Basophils # (Auto) 0.06 K/uL RDW Standard Deviation 50.4 fL 51.8 fL RDW Coefficient of Variation 14.3 % 14.5 % Immature Granulocyte % (Auto) 0.5 % Immature Granulocyte # (Auto) 0.06 K/uL Prothrombin Time 10.4 SECONDS Prothromb Time International Ratio 1.0 Activated Partial Thromboplast Time 25.3 SECONDS Partial Thromboplastin Ratio 1.0 D-Dimer 840 ug/L FEU Sodium Level 138 mmol/L 139 mmol/L Potassium Level 3.8 mmol/L 4.0 mmol/L Chloride Level 107 mmol/L 109 mmol/L Carbon Dioxide Level 22 mmol/L 25 mmol/L Anion Gap 9.0 mmol/L 17.0 mmol/L 5.0 mmol/L Blood Urea Nitrogen 15 mg/dl 12 mg/dl Creatinine 0.98 mg/dl 0.85 mg/dl Est Creatinine Clear Calc Drug Dose 99.8 ml/min 114.6 ml/min Estimated GFR () 102.3 116.1 Estimated GFR (Non- 88.3 100.2 BUN/Creatinine Ratio 15.0 13.8 Random Glucose 140 mg/dl 94 mg/dl Calcium Level 9.0 mg/dl 8.2 mg/dl Total Bilirubin 0.7 mg/dl 0.5 mg/dl Direct Bilirubin 0.2 mg/dl 0.1 mg/dl Aspartate Amino Transf (AST/SGOT) 87 U/L 81 U/L Alanine Aminotransferase (ALT/SGPT) 170 U/L 143 U/L Alkaline Phosphatase 113 U/L 91 U/L Total Protein 7.4 gm/dl 6.4 gm/dl Albumin 3.4 gm/dl 3.0 gm/dl Lipase 79 U/L Bedside Hemoglobin 17.0 g/dl Bedside Hematocrit 50 % Bedside Sodium 141 mEq/L Bedside Potassium 3.7 mEq/L Bedside Chloride 106 mEq/L Bedside Total CO2 23 mEq/l Bedside Blood Urea Nitrogen 15 mg/dl Bedside Creatinine 0.8 mg/dl Bedside Glucose (other) 142 mg/dl Bedside Ionized Calcium (Doug) 1.21 mmol/l Total Creatine Kinase 96 U/L Creatine Kinase MB 1.1 ng/ml Creatine Kinase MB Ratio 1.1 Troponin I < 0.015 ng/ml Thyroid Stimulating Hormone (TSH) 1.520 uIu/ml Bedside Lactic Acid Venous 2.15 mmol/L Magnesium Level 1.8 mg/dl Assessment & Plan 51 year-old male who presented to emergency room yesterday from doctors office concern for small bowel obstruction on abdominal series. CT scan showing no evidence of bowel obstruction. NGT placed, 250 cc removed. Today, abdomen soft, no pain, passing flatus, leukocytosis resolved. Plan: Continue conservative management at this time: NGT to LIS, NPO, IV Fluids, IV pain management as needed Highly encouraged ambulation and OOB to chair will await for further bowel function to remove NGT May clamp NGT for ambulation. Continue medical management Patient seen with Dr. Randall who agrees with above Addendum: Patient was seen early this morning in consultation. Received phone call from nurse patient demanded NGT be removed as he was passing more flatus and wants to have food. Recommend ice chips and sips for now
[2017-07-11 12:06] VITALS: BP 134/84; PULSE 74; TEMP 36.8; O2SAT 98
[2017-07-11] MEDS ORDERED: KETOROLAC TROMETHAMINE 15 MG/ML VIAL IM PRN (12:30)
--- NOTE | 2017-07-11 14:35 | Progress Note ---
Medicine Progress Note Date & Time of Visit: Jul 11, 2017 at 13:57. Subjective Pt was seen and examined His family member at bedside ( plus 4 other members) Pt said that he feels much better He made the nurse to remove the NG tube since he was passing gas and to start on solid diet He said that he wants to be discharged now because he has been passing gas and had a bowel movement (as per patient since nurse did not see the bowel movement) Pt said that if I cannot discharge him now that he would sign AMA I explained to patient that since he had a bowel movement that i would start him on clear liquid diet and advanced as tolerated I told him that if he tolerated diet, maybe later i can discharge him if he does not have any symptoms Pt said that he wants to sign AMA Family member and at bedside, did not stop him to sign out AMA I discussed with him the risks by leaving AMA such worsening abdominal pain, nausea, vomiting that can lead to dehydration and organs failure. Also bowel perforation, sepsis and even . Pt understood the risks and wants to leave AMA Denies any chest pain, palpitation, fever and bloody stools Objective Last 8 Hrs Date Time Temp Pulse Resp B/P (MAP) Pulse Ox O2 Delivery O2 Flow Rate FiO2 07/11/17 12:06 36.8 74 18 134/84 (101) 98 07/11/17 12:00 Room Air 07/11/17 11:26 74 139/73 07/11/17 08:00 Room Air 07/11/17 08:00 36.5 74 18 139/73 (95) 96 Physical Exam: Exam limited since pt wants to sign AMA No acute distress Speech fluent, no tongue deviation Move all 4 extremities Laboratory Results: Last 24 Hours Test 07/10/17 18:10 07/10/17 18:26 07/10/17 18:34 07/11/17 05:05 White Blood Count 11.21 K/uL 8.42 K/uL Red Blood Count 4.97 M/uL 4.62 M/uL Hemoglobin 17.0 g/dL 15.6 g/dL Hematocrit 47.6 % 45.2 % Mean Corpuscular Volume 95.8 fL 97.8 fL Mean Corpuscular Hemoglobin 34.2 pg 33.8 pg Mean Corpuscular Hemoglobin Concent 35.7 g/dl 34.5 g/dl Platelet Count 182 K/uL 162 K/uL Mean Platelet Volume 11.0 fL 10.9 fL Neutrophils (%) (Auto) 58.4 % Lymphocytes (%) (Auto) 26.7 % Monocytes (%) (Auto) 9.4 % Eosinophils (%) (Auto) 4.5 % Basophils (%) (Auto) 0.5 % Neutrophils # (Auto) 6.54 K/uL Lymphocytes # (Auto) 2.99 K/uL Monocytes # (Auto) 1.05 K/uL Eosinophils # (Auto) 0.51 K/uL Basophils # (Auto) 0.06 K/uL RDW Standard Deviation 50.4 fL 51.8 fL RDW Coefficient of Variation 14.3 % 14.5 % Immature Granulocyte % (Auto) 0.5 % Immature Granulocyte # (Auto) 0.06 K/uL Prothrombin Time 10.4 SECONDS Prothromb Time International Ratio 1.0 Activated Partial Thromboplast Time 25.3 SECONDS Partial Thromboplastin Ratio 1.0 D-Dimer 840 ug/L FEU Sodium Level 138 mmol/L 139 mmol/L Potassium Level 3.8 mmol/L 4.0 mmol/L Chloride Level 107 mmol/L 109 mmol/L Carbon Dioxide Level 22 mmol/L 25 mmol/L Anion Gap 9.0 mmol/L 17.0 mmol/L 5.0 mmol/L Blood Urea Nitrogen 15 mg/dl 12 mg/dl Creatinine 0.98 mg/dl 0.85 mg/dl Est Creatinine Clear Calc Drug Dose 99.8 ml/min 114.6 ml/min Estimated GFR () 102.3 116.1 Estimated GFR (Non- 88.3 100.2 BUN/Creatinine Ratio 15.0 13.8 Random Glucose 140 mg/dl 94 mg/dl Calcium Level 9.0 mg/dl 8.2 mg/dl Total Bilirubin 0.7 mg/dl 0.5 mg/dl Direct Bilirubin 0.2 mg/dl 0.1 mg/dl Aspartate Amino Transf (AST/SGOT) 87 U/L 81 U/L Alanine Aminotransferase (ALT/SGPT) 170 U/L 143 U/L Alkaline Phosphatase 113 U/L 91 U/L Total Protein 7.4 gm/dl 6.4 gm/dl Albumin 3.4 gm/dl 3.0 gm/dl Lipase 79 U/L Bedside Hemoglobin 17.0 g/dl Bedside Hematocrit 50 % Bedside Sodium 141 mEq/L Bedside Potassium 3.7 mEq/L Bedside Chloride 106 mEq/L Bedside Total CO2 23 mEq/l Bedside Blood Urea Nitrogen 15 mg/dl Bedside Creatinine 0.8 mg/dl Bedside Glucose (other) 142 mg/dl Bedside Ionized Calcium (Doug) 1.21 mmol/l Total Creatine Kinase 96 U/L Creatine Kinase MB 1.1 ng/ml Creatine Kinase MB Ratio 1.1 Troponin I < 0.015 ng/ml Thyroid Stimulating Hormone (TSH) 1.520 uIu/ml Bedside Lactic Acid Venous 2.15 mmol/L Magnesium Level 1.8 mg/dl Assessment & Plan Abdominal pain associated with Nausea Possible secondary to intestinal obstruction/ileus. CT scan did not suggest any obstruction Outpatient abdominal series showed small bowel obstruction. Clinical finding on admission suspects bowel obstruction NGT removed as per patient requests Surgery on board Case discussed with surgery and OK to start on clear liquid if pt had a BM Pt said that he had a bowel movement Pt wants to start on solid diet and want to be discharge now since feeling better Discussed with pt that i would start him on clear liquid diet since he had a bowel movement Will advanced diet as tolerated I made him aware that i cannot discharge him now, but if diet advance later and tolerated, I could discharge him later Pt refused to stay in the hospital and left AMA before leaving AMA i explained to him the risks by leaving AMA such worsening abdominal pain, nausea, vomiting that can lead to dehydration and organs failure; Also bowel perforation, sepsis and even Pt understood the risks and signed AMA Advised pt to come back to the ER if symptoms reoccurs (Pt said that he would be fine and his symptoms would not reoccur) Tachycardia associated with shortness of breath Elevated D-Dimer CTA chest showed no evidence for PE No arrhythmia on tele monitor Troponin negative . Gastroesophageal reflux disease. On IV Protonix Hyperlipidemia. Stable Deep vein thrombosis prophylaxis Subcutaneous heparin. Code status Full code. Disposition Pt left Against medical advice Current Inpatient Medications: Current Inpatient Medications Medications (Trade) Dose Ordered Sig/Solitario Route Start Time Stop Time Status Last Admin Dose Admin Heparin Sodium (Porcine) (Heparin Sq 5000 Unit/0.5ml) 5,000 unit Q8H SQ 07/10/17 22:00 08/09/17 21:59 07/11/17 05:27 5,000 UNIT Potassium Chloride/Sodium Chloride 1,000 ml @ 125 mls/hr Q8H IV 07/10/17 22:00 08/09/17 21:59 07/11/17 05:26 125 MLS/HR Ondansetron HCl (Zofran Inj) 4 mg Q6H PRN IV 07/10/17 20:45 08/09/17 20:44 Pantoprazole Sodium 40 mg/ Syringe 10 ml @ 5 mls/min DAILY@11 IV 07/11/17 11:00 08/10/17 10:59 07/11/17 11:26 5 MLS/MIN Metoprolol Tartrate (Lopressor Iv) 5 mg Q6 IV. 07/11/17 00:00 08/10/17 00:00 07/11/17 11:26 5 MG Hydromorphone HCl (Dilaudid Inj) 0.5 mg Q3H PRN IV 07/10/17 21:00 07/24/17 20:59 07/11/17 03:45 0.5 MG Ioversol (Optiray 320) 125 ml UD PRN IV 07/10/17 21:45 07/14/17 21:44 Ioversol (Optiray 320) 95 ml UD PRN IV 07/10/17 22:15 07/14/17 22:14 Ketorolac Tromethamine (Toradol Inj) 15 mg Q12 PRN IM 07/11/17 12:30 07/16/17 12:29 UNV
== END 2017-07-11 13:40 | disposition home or self-care (01) | DRG 390 ==
LOC: C.EDB 17:48 → C.2T 20:40 → ENRESERV 20:48
PROVIDERS: ADMIT Internal Medicine; ATTEND Internal Medicine
DX: K56.609 Unspecified intestinal obstruction, unspecified as to partial versus complete obstruction (principal); Z82.49 Family history of ischemic heart disease and other diseases of the circulatory system; Z82.3 Family history of stroke; F17.200 Nicotine dependence, unspecified, uncomplicated; Z79.82 Long term (current) use of aspirin; Z72.89 Other problems related to lifestyle; K21.9 Gastro-esophageal reflux disease without esophagitis; E78.5 Hyperlipidemia, unspecified; R00.0 Tachycardia, unspecified

== ENCOUNTER 2018-05-31 09:41 | Inpatient (IN) ==
[2018-05-31] MEDS ORDERED: ONDANSETRON INJ 2 MG/ML 2 ML VIAL IV STA (10:08)
[2018-05-31] MEDS ORDERED: HYDROmorphone INJ 1 MG/ML SYRINGE IV STA (10:08)
[2018-05-31] MEDS ORDERED: SODIUM CHLORIDE 0.9% 1000ML 1,000 ML IV SCH (10:15)
[2018-05-31 10:29] LABS: Basophils # (auto) 0.03 K/uL (0-0.2); Basophils % (auto) 0.3 %; Eosinophils # (auto) 0.25 K/uL (0-0.5); Eosinophils % (auto) 2.3 %; Hematocrit (blood only) 46.4 % (42-52); Hemoglobin 15.9 g/dL (14.0-18.0); Immature Granulocytes # (auto) 0.04 K/uL (0.00-0.02); Immature Granulocytes % (auto) 0.4 %; Lymphocytes # (auto) 2.47 K/uL (1.2-3.4); Lymphocytes % (auto) 22.5 %; Mean Corpuscular Hgb Conc 34.3 g/dL (32-36); Mean Corpuscular Volume 99.6 fL (80-100); Mean Platelet Volume 10.8 fL (7.4-10.4); Monocytes # (auto) 1.56 K/uL (0.11-0.59); Monocytes % (auto) 14.2 %; Neutrophils # (auto) 6.61 K/uL (1.4-6.5); Neutrophils % (auto) 60.3 %; Platelet Count 163 K/uL (130-400); RDW Coefficient of Variation 14.2 % (11.5-14.5); RDW Standard Deviation 51.3 fL (36.4-46.3); Red Blood Count 4.66 M/uL (4.7-6.1); White Blood Count 10.96 K/uL (4.8-10.8)
[2018-05-31 10:34] LABS: Appearance Urine Clear (Clear); Bacteria Urine Automated Negative (Negative); Blood Urine 2+ (Negative); Color Urine Dark Yellow; Epithelial Cell Urine Auto 20-30 /lpf (0-5); Glucose Urine UA Negative (Negative); Ketones Urine Trace (Negative); Leukocyte Esterase Urine Negative (Negative); Nitrite Urine Negative (Negative); Protein Urine 2+ (Negative); Specific Gravity Urine 1.032 (1.000-1.030); Urobilinogen Urine Negative (Negative)
[2018-05-31 10:40] LABS: Bilirubin Urine Negative (Negative); Ictotest Urine Negative (Negative)
[2018-05-31 10:48] LABS: Albumin Level 3.1 gm/dl (3.4-5.0); BUN Creatinine Ratio 12.7 (10-20); Calcium 8.3 mg/dl (8.5-10.1); Creatinine Clr Calc Pharmacy 113.2 ml/min; Est GFR (African American) 115.3; Est GFR (Non-African American) 99.5; Potassium 3.5 mmol/L (3.5-5.1)
[2018-05-31 10:50] LABS: Mucus Urine Present (None Prsent)
[2018-05-31 10:51] LABS: Albumin Globulin Ratio 0.8 (0.9-2); Bilirubin,Total 0.5 mg/dl (0.2-1); Globulin 3.8 gm/dl (2.5-4.0); Total Protein 6.9 gm/dl (6.4-8.2)
--- NOTE | 2018-05-31 10:51 | Emergency Department Note ---
History of Present Illness General Chief complaint: Abdominal Pain Stated complaint: PAIN IN ABD,SOB,VOMITING,HEADACHE Time Seen by Provider: 05/31/18 10:00 History of Present Illness Maximum Pain Intensity: 10 This 52-year-old male presents the ER with chief complaint of persistent right upper abdominal pain. The patient also admits to nausea and vomiting twice daily since being seen here on Monday. Patient has an appointment with GI on June 06. The patient denies any fever or diarrhea. The patient denies any urinary symptoms of frequency, urgency dysuria or hematuria. The patient has been taking oxycodone with no relief of the pain at home. Home Medications Home Medications Medication Instructions Recorded Confirmed Type Protonix 40 mg PO QAM 01/18/18 05/31/18 History atorvastatin 20 mg PO QAM 01/18/18 05/31/18 History epinephrine [EpiPen] 0.3 mg IM DIRECTED PRN 01/18/18 05/31/18 History metoprolol succinate 25 mg PO QAM 01/18/18 05/31/18 History amitriptyline 10 mg PO HS 05/28/18 05/31/18 History hydrochlorothiazide 25 mg PO QAM 05/28/18 05/31/18 History trazodone 50 mg PO HS 05/28/18 05/31/18 History acetaminophen [Tylenol Extra 1,000 mg PO Q6H PRN 05/31/18 05/31/18 History Strength] Allergies Allergy/AdvReac Type Severity Reaction Status Date / Time bee venom protein (honey bee) AdvReac Severe Anaphylaxis Unverified 05/31/18 11:11 Past Med/Surg History Medical History GERD (gastroesophageal reflux disease) Hyperlipidemia Hypertension Surgical History History of appendectomy History of bowel resection 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 History of colonoscopy History of esophagogastroduodenoscopy (EGD) History of tooth extraction Social History Preferred Language: Czech Beliefs That Will Affect Care: None Current Living Situation: Significant Other Current Living Situation Comment: LIVES WITH GIRLFRIEND Feels Safe at Home: Yes Smoking Status: Never smoker Hx Alcohol Use: Yes Hx Substance Use: No Review of Systems A total of 10 systems reviewed and were otherwise negative Physical Exam Vital Signs Vital Signs - 24 hr 05/31/18 09:49 05/31/18 10:25 05/31/18 10:59 Temperature 36.6 C Temperature Source Oral Sepsis Recent Fever Within 48 Hours No Sepsis New/Unexplained Change in Mental Status No Sepsis Action Taken by Nursing No Action Required Pulse Rate 91 H Pulse Rate [Left Finger] 87 Respiratory Rate 17 18 Respiratory Effort / Characteristics Non-Labored Respiratory Depth Normal Normal Respiratory Pattern Blood Pressure 136/87 Blood Pressure [Left Arm] 138/102 H Blood Pressure Mean 103 Blood Pressure Mean [Left Arm] 114 Blood Pressure Position Sitting Pulse Oximetry 94 96 95 Oxygen Delivery Method Room Air Room Air Room Air 05/31/18 12:38 05/31/18 14:18 05/31/18 16:16 Temperature Temperature Source Sepsis Recent Fever Within 48 Hours Sepsis New/Unexplained Change in Mental Status Sepsis Action Taken by Nursing Pulse Rate Pulse Rate [Left Finger] 87 78 88 Respiratory Rate 18 16 20 Respiratory Effort / Characteristics Non-Labored Non-Labored Respiratory Depth Normal Normal Respiratory Pattern Regular Blood Pressure Blood Pressure [Left Arm] 163/111 H 145/107 H 152/103 H Blood Pressure Mean Blood Pressure Mean [Left Arm] 128 119 119 Blood Pressure Position Pulse Oximetry 97 94 95 Oxygen Delivery Method Room Air Room Air GENERAL: 52-year-old male appears in no acute distress. MENTAL Status: Alert and oriented x3. MOUTH: Mucosa is moist NECK: Supple, no lymphadenopathy noted. No carotid bruits noted. LUNGS: Clear auscultation without wheezes rales or rhonchi. CARDIAC: Regular rate and rhythm without murmur. Pulses is full and equal throughout. BACK: No CVA tenderness noted. ABDOMEN: Positive bowel sounds all 4 quadrants. Soft, severe tenderness palpation over the entire right side of the abdomen. Left side is nontender to palpation without organomegaly or masses. EXTREMITIES: No cyanosis or edema noted. Course Administered Medications Discontinued Medications Diphenhydramine HCl (Benadryl) 50 mg IV NOW STA Stop: 05/31/18 13:26 Last Admin: 05/31/18 13:29 Dose: 50 mg Documented by: [id number] Hydromorphone HCl (Dilaudid) 1 mg IV NOW STA Stop: 05/31/18 10:09 Last Admin: 05/31/18 10:28 Dose: 1 mg Documented by: [id number] Hydromorphone HCl (Dilaudid) 0.5 mg IV NOW STA Stop: 05/31/18 11:08 Last Admin: 05/31/18 11:11 Dose: 0.5 mg Documented by: [id number] Hydromorphone HCl (Dilaudid) 0.5 mg IV NOW STA Stop: 05/31/18 12:42 Last Admin: 05/31/18 12:49 Dose: 0.5 mg Documented by: [id number] Hydromorphone HCl (Dilaudid) 0.5 mg IV NOW STA Stop: 05/31/18 16:03 Last Admin: 05/31/18 16:13 Dose: 0.5 mg Documented by: [id number] Sodium Chloride (Nss 1000ml) 1,000 mls @ 999 mls/hr IV .Q1H1M ANNMARIE Stop: 05/31/18 11:15 Last Infusion: 05/31/18 11:31 Dose: 0 mls/hr Documented by: [id number] Admin: 05/31/18 10:28 Dose: 999 mls/hr Documented by: [id number] Ondansetron HCl (Zofran) 4 mg IV NOW STA Stop: 05/31/18 10:09 Last Admin: 05/31/18 10:28 Dose: 4 mg Documented by: [id number] Medical Decision Making Differential Diagnosis Acute cholecystitis, biliary sludge, cholelithiasis, acute pancreatitis Medical Records Attestation: I reviewed the patient's medical records. Home Medications Current Medication List: was personally reviewed by me Laboratory Data Attestation: I reviewed the patient's lab results. Result diagrams: 05/31/18 10:20 05/31/18 10:20 Lab Results 05/31/18 05/31/18 05/31/18 Range/Units 10:20 10:20 10:20 WBC 10.96 H (4.8-10.8) K/uL RBC 4.66 L (4.7-6.1) M/uL Hgb 15.9 (14.0-18.0) g/dL Hct 46.4 (42-52) % MCV 99.6 (80-100) fL MCH 34.1 H (25-34) pg MCHC 34.3 (32-36) g/dL RDW Std Deviation 51.3 H (36.4-46.3) fL RDW Coeff of Fabiola 14.2 (11.5-14.5) % Plt Count 163 (130-400) K/uL MPV 10.8 H (7.4-10.4) fL Immature Gran % (Auto) 0.4 % Neut % (Auto) 60.3 % Lymph % (Auto) 22.5 % [place] % (Auto) 14.2 % Eos % (Auto) 2.3 % Baso % (Auto) 0.3 % Immature Gran # (Auto) 0.04 H (0.00-0.02) K/uL Neut # (Auto) 6.61 H (1.4-6.5) K/uL Lymph # (Auto) 2.47 (1.2-3.4) K/uL [place] # (Auto) 1.56 H (0.11-0.59) K/uL Eos # (Auto) 0.25 (0-0.5) K/uL Baso # (Auto) 0.03 (0-0.2) K/uL Sodium 140 (136-145) mmol/L Potassium 3.5 (3.5-5.1) mmol/L Chloride 110 H (98-107) mmol/L Carbon Dioxide 24 (21-32) mmol/L Anion Gap 6.0 (3-11) BUN 11 (7-18) mg/dl Creatinine 0.85 (0.6-1.4) mg/dl Est Cr Clr Drug Dosing 113.2 ml/min Est GFR ( Amer) 115.3 Est GFR (Non-Af Amer) 99.5 BUN/Creatinine Ratio 12.7 (10-20) Glucose 100 H (70-99) mg/dl Calcium 8.3 L (8.5-10.1) mg/dl Total Bilirubin 0.5 (0.2-1) mg/dl AST 134 H (15-37) U/L ALT 142 H (12-78) U/L Alkaline Phosphatase 107 (45-117) U/L Total Protein 6.9 (6.4-8.2) gm/dl Albumin 3.1 L (3.4-5.0) gm/dl Globulin 3.8 (2.5-4.0) gm/dl Albumin/Globulin Ratio 0.8 L (0.9-2) Lipase 61 L (73-393) U/L Urine Color Dark Yellow Urine Appearance Clear (Clear) Urine pH 5.0 (4.5-7.5) Ur Specific [place] 1.032 H (1.000-1.030) Urine Protein 2+ H (Negative) Urine Glucose (UA) Negative (Negative) Urine Ketones Trace H (Negative) Urine Blood 2+ H (Negative) Urine Nitrite Negative (Negative) Urine Bilirubin Negative (Negative) Urine Urobilinogen Negative (Negative) Ur Leukocyte Esterase Negative (Negative) Urine WBC (Auto) 1-5 (0-5) /hpf Urine RBC (Auto) 5-10 H (0-4) /hpf U Hyaline Cast (Auto) 10-30 H (0-5) /lpf U Epithel Cells (Auto) 20-30 H (0-5) /lpf Urine Bacteria (Auto) Negative (Negative) Urine Mucus Present H (None Prsent) Imaging Data Radiologist's Impression: US gallbladder CLINICAL HISTORY: Right upper quadrant abdominal pain. COMPARISON STUDY: CT of the abdomen and pelvis and right upper ultrasound May 28, 2018. FINDINGS: A 1.2 cm hepatic cyst is noted. There is no biliary ductal dilatation. The gallbladder is moderately distended. This is similar to exam of May 28, 2018. There is no gallbladder wall thickening. Minimal sludge within the gallb ladder is noted. No gallstones are identified. No sonographic Ramos sign was elicited. There is no right hydronephrosis. IMPRESSION: 1. Moderate gallbladder distention, similar to exam of May 28, 2018. Trace sludge. No gallstones, gallbladder wall thickening or sonographic Ramos sign. These findings are not highly suggestive of acute cholecystitis however a hepatobiliary scan could be obtained as indicated. 2. No biliary ductal dilatation. 3. Obscured pancreas. Electronically signed by: Hira Cordova M.D. 05/31/2018 12:43 PM Dictated: 05/31/18 1239 Transcribed: 05/31/18 1239 Blood Pressure Blood Pressure Findings: Normal blood pressure MDM Narrative The patient was evaluated. I reviewed the patient's ER visit from May 28, 2018. Abnormal findings were white count of 12.48, AST at 125 and ALT at 115. Ultrasound of the gallbladder revealed some sludge in gallbladder distention but no evidence of acute cholecystitis IV access was obtained. The patient was given 1 L normal saline wide open.. He was given Zofran 4 mg IV and Dilaudid 1 mg IV for pain. The patient's labs were reviewed. The patient's white count had lowered to 10.96. AST was 134 and ALT 142. The patient's case was discussed with Dr. Valdovinos who agrees with treatment plan. Surgery, Dr. Phillips was consulted. She will come and evaluate the patient as soon as they are done with her current surgery. She wanted a repeat ultrasound of the gallbladder. This was ordered and the patient was informed of treatment plan and was in agreement. Ultrasound was unchanged from prior ultrasound of May 28. The patient was reevaluated on several occasion and was complaining of headache. He stated that the Dilaudid was not helping with the pain. He had 2 additional doses of 0.5 mg of Dilaudid for abdominal and head pain. He still was complaining of headache and therefore he was given Benadryl 50 mg IV. Still awaiting surgery consult. Surgery came to evaluate the patient . They felt that the patient should be admitted through medicine and obtain a HIDA scan as well as get a GI consult. They stated that this is not definitely going to be a surgical case which is why they want medicine to admit. [facility] hospitalist was consulted for admission Impression & Plan Abdominal pain, Elevated LFTs, Intractable right upper quadrant abdominal pain Discharge Plan Visit Data Chief Complaint: Abdominal Pain Stated Complaint: PAIN IN ABD,SOB,VOMITING,HEADACHE ED Provider: Mayuri Valdovinos ED Midlevel Provider: Ev Cherry Discharge Problem: Abdominal pain, Elevated LFTs, Intractable right upper quadrant abdominal pain Patient Disposition: Being Evaluated by Hospitalist Condition: Good Forms Stand Alone Forms: Call Back Authorization, [facility] Prescriptions Prescriptions: No Action atorvastatin 20 mg Tablet 20 mg PO QAM RF: 0 metoprolol succinate 25 mg Tablet Extended Release 24 Hr 25 mg PO QAM RF: 0 epinephrine [EpiPen] 0.3 mg/0.3 mL Auto-Injector 0.3 mg IM DIRECTED PRN (Reason: ALLEGIC REACTION) RF: 0 Protonix [address] For Susp In Packet 40 mg PO QAM RF: 0 acetaminophen [Tylenol Extra Strength] 500 mg Tablet 1,000 mg PO Q6H PRN (Reason: Pain) RF: 0 trazodone 50 mg tablet 50 mg PO HS RF: 0 amitriptyline 10 mg tablet 10 mg PO HS RF: 0 hydrochlorothiazide 25 mg tablet 25 mg PO QAM RF: 0 Referrals Referrals: Toby Paz [Primary Care Provider] -
[2018-05-31] MEDS ORDERED: HYDROmorphone INJ 0.5 MG/0.5 ML SYR IV STA ×3 (11:07→16:02)
--- NOTE | 2018-05-31 12:44 | Ultrasound Report ---
US gallbladder CLINICAL HISTORY: Right upper quadrant abdominal pain. COMPARISON STUDY: CT of the abdomen and pelvis and right upper ultrasound May 28, 2018. FINDINGS: A 1.2 cm hepatic cyst is noted. There is no biliary ductal dilatation. The gallbladder is m oderately distended. This is similar to exam of May 28, 2018. There is no gallbladder wall thick ening. Minimal sludge within the gallbladder is noted. No gallstones are identified. No sonographic M urphy sign was elicited. There is no right hydronephrosis. IMPRESSION: 1. Moderate gallbladder distention, similar to exam of May 28, 2018. Trace sludge. No gallstones , gallbladder wall thickening or sonographic Ramos sign. These findings are not highly suggestive of acute cholecystitis however a hepatobiliary scan could be obtained as indicated. 2. No biliary ductal dilatation. 3. Obscured pancreas. Electronically signed by: Hira Cordova M.D. 05/31/2018 12:43 PM
[2018-05-31] MEDS ORDERED: DiphenhydrAMINE HCL 50 MG/ML VIAL IV STA (13:25)
--- NOTE | 2018-05-31 17:10 | Surgery Consultation ---
Date of Consultation May 31, 2018 Assessment & Plan (1) Abdominal pain: Persistent intractable RUQ abdominal pain for past 2 months with abdominal bloating, nausea, vomiting, change in bowel habits with diarrhea in setting of chronic GERD/reflux on PPI therapy. Ultrasound on 05/28 and today showing gallbladder sludge however no evidence of acute cholecystitis. CT scan on 05/28/18 showing no acute intra-abdominal findings. Labs show mild leukocytosis at 10.9K today and elevated LFTS (which may be chronic) AST at 134 and ALT at 142 however t. bili , alk phos, and lipase wnl. DDx: Primary hepatic etiology, symptomatic biliary disease due to gallbladder sludge, PUD/gastritis Plan: No immediate surgical intervention recommend at this time. No clear etiology of patients chronic abdominal pain. Would recommend HIDA scan to further evaluate gallbladder. Would also recommend keeping patient NPO, IV fluids, IV Pain medication prn, IV Zofran prn nausea, repeat am labs including cbc and cmp. Recommend GI consultation given chronic GERD/reflux and workup for primary hepatic etiology of elevated AST and ALT. Follows with [facility] gastroenterology as outpatient Will follow HIDA scan results and determine need for cholecystectomy. Discussed patient with Dr. Phillips who agrees with above and will evaluate patient later. (2) Elevated LFTs: Chronic?? Consult GI for further eval HIDA scan Plan as above Supervising Physician Co-Signing Physician Notes Attempted to see the patient, but he is in MRI for HIDA scan. Will attempt to perform physical exam at a later time. I have reviewed the above information and the chart and agree with the above by Randi Fonseca PA-C. 52 yo male with chronic epigastric pain, who presents with worsening pain and elevated ALT and AST. U/S shows possible sludge but no gallstones and no signs of cholecystitis. WBC has improved without abx since his last evaluation. Concern for primary hepatic etiology, for which GI consult is recommended. Also recommend HIDA scan to assess for cholecystitis and biliary dyskinesia. History of Present Illness Reason for Consultation: abdominal pain, gallbladder sludge Requesting Physician: Nevaeh Cherry PA-C History of Present Illness Mauro is a 52 year-old male who presented to emergency room originally on Monday with complaint of right upper abdominal pain that has been present for past 2 months with associated chronic abdominal bloating, nausea, and vomiting. His work-up at that time was a ct scan of abdomen and pelvis which showed no acute intra-abdominal findings but distended gallbladder in which ultrasound was recommended. Ultrasound showed biliary sludge however no evidence of cholelithiasis or acute cholecystitis. Labs at that time showed leukocytosis of 12K and eleveated LFTS: AST 125 ans ALT at 115. T. bili , alk phos, lipase wnl. No significant evidence of etiology of patient's pain. He was discharged home from emergency room and recommend outpatient f/u with PCP for possbile HIDA scan and follow up with gastroenterology. Mauro states he presented again today as his symptoms just seem to persist and increase in severity. States he has felt this way for the past 2 months with chronic right sided abdominal pain with radiation to the side and upper back. Pain sharp in nature and constant. Nothing seems to make pain better. States he is unable to eat much food. Co nstantly feels bloated. Recently has been having diarrhea and loose stools instead of formed bowel movement in which he used to have regular bowel movements daily. Has history of chronic GERD and reflux. Had an EGD with PH probe placement in january of 2018 and colonoscopy 3 weeks ago in which he was found to have 7 polyps which were removed and all came back benign (per patient). He had a history of SBO 4 years ago in which he required surgery, performed by Dr. Marr. Previous open appendectomy with RLQ longitudinal scar (when he was 17 years old). States he has been having persistent headaches in last week and also itchiness. Work-up today showed mild improvement in leukocytosis at 10.9K. LFTS with slight increase AST at 134 and ALT at 142 however t. bili, alk phos, and lipase again wnl. Gallbladder ultrasound again shows gallbladder sludge however no evidence of stones or acute cholecystitis. present in room states he has been having these problems for the past 2 months and he has not been getting any better. States she is afraid to take him home and he will be back in the emergency room with pain. Patient states something is wrong and not sure he can go home with this type of pain. Allergies Allergy/AdvReac Type Severity Reaction Status Date / Time bee venom protein (honey bee) AdvReac Severe Anaphylaxis Unverified 05/31/18 11:11 Home Medications Home Medications Medication Instructions Recorded Confirmed Type Protonix 40 mg PO QAM 01/18/18 05/31/18 History atorvastatin 20 mg PO HS 01/18/18 05/31/18 History epinephrine [EpiPen] 0.3 mg IM DIRECTED PRN 01/18/18 05/31/18 History metoprolol succinate 25 mg PO QAM 01/18/18 05/31/18 History amitriptyline 10 mg PO HS 05/28/18 05/31/18 History hydrochlorothiazide 25 mg PO QAM 05/28/18 05/31/18 History trazodone 50 mg PO HS 05/28/18 05/31/18 History acetaminophen [Tylenol Extra 1,000 mg PO Q6H PRN 05/31/18 05/31/18 History Strength] Patient History Medical History GERD (gastroesophageal reflux disease) Hyperlipidemia Hypertension Surgical History History of appendectomy History of bowel resection 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 History of colonoscopy History of esophagogastroduodenoscopy (EGD) History of tooth extraction Social History Preferred Language: Australian Beliefs That Will Affect Care: None Current Living Situation: Significant Other Current Living Situation Comment: LIVES WITH GIRLFRIEND Feels Safe at Home: Yes Smoking Status: Never smoker Hx Alcohol Use: Yes Hx Substance Use: No Review of Systems Constitutional: as per Subjective / HPI Physical Exam Vital Signs (Past 24 Hours): Last Vital Signs Temp 36.6 C 05/31/18 09:49 Pulse 88 05/31/18 16:16 Resp 20 05/31/18 16:16 BP 152/103 H 05/31/18 16:16 Pulse Ox 95 05/31/18 16:16 Constitutional: WD/WN, vitals as above + obese; no acute distress and not ill appearing Neck: trachea midline Respiratory: normal respiratory effort, lungs clear to auscultation no respiratory distress Cardiovascular: RRR, no murmur, no edema Gastrointestinal (Abdomen): Inspection/Auscultation: + abdomen distended and + abdominal surgical scar (midline laparotomy scar and RLQ longitudinal scar); + abnormal bowel sounds Percussion/Palpation: + abdomen tender and + guarding; abdomen not rigid and + abdomen not soft Skin: no rashes, warm and dry Psychiatric: A+Ox3, euthymic affect Results & Data Laboratory Results 05/31/18 05/31/18 05/31/18 Range/Units 10:20 10:20 10:20 WBC 10.96 H (4.8-10.8) K/uL RBC 4.66 L (4.7-6.1) M/uL Hgb 15.9 (14.0-18.0) g/dL Hct 46.4 (42-52) % MCV 99.6 (80-100) fL MCH 34.1 H (25-34) pg MCHC 34.3 (32-36) g/dL RDW Std Deviation 51.3 H (36.4-46.3) fL RDW Coeff of Fabiola 14.2 (11.5-14.5) % Plt Count 163 (130-400) K/uL MPV 10.8 H (7.4-10.4) fL Immature Gran % (Auto) 0.4 % Neut % (Auto) 60.3 % Lymph % (Auto) 22.5 % [place] % (Auto) 14.2 % Eos % (Auto) 2.3 % Baso % (Auto) 0.3 % Immature Gran # (Auto) 0.04 H (0.00-0.02) K/uL Neut # (Auto) 6.61 H (1.4-6.5) K/uL Lymph # (Auto) 2.47 (1.2-3.4) K/uL [place] # (Auto) 1.56 H (0.11-0.59) K/uL Eos # (Auto) 0.25 (0-0.5) K/uL Baso # (Auto) 0.03 (0-0.2) K/uL Sodium 140 (136-145) mmol/L Potassium 3.5 (3.5-5.1) mmol/L Chloride 110 H (98-107) mmol/L Carbon Dioxide 24 (21-32) mmol/L Anion Gap 6.0 (3-11) BUN 11 (7-18) mg/dl Creatinine 0.85 (0.6-1.4) mg/dl Est Cr Clr Drug Dosing 113.2 ml/min Est GFR ( Amer) 115.3 Est GFR (Non-Af Amer) 99.5 BUN/Creatinine Ratio 12.7 (10-20) Glucose 100 H (70-99) mg/dl Calcium 8.3 L (8.5-10.1) mg/dl Total Bilirubin 0.5 (0.2-1) mg/dl AST 134 H (15-37) U/L ALT 142 H (12-78) U/L Alkaline Phosphatase 107 (45-117) U/L Total Protein 6.9 (6.4-8.2) gm/dl Albumin 3.1 L (3.4-5.0) gm/dl Globulin 3.8 (2.5-4.0) gm/dl Albumin/Globulin Ratio 0.8 L (0.9-2) Lipase 61 L (73-393) U/L Urine Color Dark Yellow Urine Appearance Clear (Clear) Urine pH 5.0 (4.5-7.5) Ur Specific Cost 1.032 H (1.000-1.030) Urine Protein 2+ H (Negative) Urine Glucose (UA) Negative (Negative) Urine Ketones Trace H (Negative) Urine Blood 2+ H (Negative) Urine Nitrite Negative (Negative) Urine Bilirubin Negative (Negative) Urine Urobilinogen Negative (Negative) Ur Leukocyte Esterase Negative (Negative) Urine WBC (Auto) 1-5 (0-5) /hpf Urine RBC (Auto) 5-10 H (0-4) /hpf U Hyaline Cast (Auto) 10-30 H (0-5) /lpf U Epithel Cells (Auto) 20-30 H (0-5) /lpf Urine Bacteria (Auto) Negative (Negative) Urine Mucus Present H (None Prsent) Diagnostic Findings US gallbladder CLINICAL HISTORY: Right upper quadrant abdominal pain. COMPARISON STUDY: CT of the abdomen and pelvis and right upper ultrasound May 28, 2018. FINDINGS: A 1.2 cm hepatic cyst is noted. There is no biliary ductal dilatation. The gallbladder is moderately distended. This is similar to exam of May 28, 2018. There is no gallbladder wall thickening. Minimal sludge within the gallbladder is noted. No gallstones are identified. No sonographic Ramos sign was elicited. There is no right hydronephrosis. IMPRESSION: 1. Moderate gallbladder distention, similar to exam of May 28, 2018. Trace sludge. No gallstones, gallbladder wall thickening or sonographic Ramos sign. These findings are not highly suggestive of acute cholecystitis however a hepatobiliary scan could be obtained as indicated. 2. No biliary ductal dilatation. 3. Obscured pancreas. (1) Abdominal pain Abdominal location: right upper quadrant Qualified Code(s): R10.11 - Right upper quadrant pain
--- NOTE | 2018-05-31 17:43 | History & Physical Report ---
Date of Service May 31, 2018 Assessment & Plan (1) Intractable right upper quadrant abdominal pain: (2) Elevated LFTs: This is a 52yo M with a PMH of steatosis of liver, GERD, HTN, HLD who presents with worsening RUQ pain x 1 week. -Associated with nausea, vomiting, bloating, diarrhea -Mild leukocytosis of 10.9k. LFTs elevated with AST of 134 and ALT of 142 but normal Tbili, alk phos, lipase -GB ultrasound unchanged from 05/28, still with GB sludge, no stones -Had normal EGD in Jan 2018, colonoscopy done earlier this month with polyp removal -Seen by general surgery in ED * DDx: Symptomatic biliary disease due to gallbladder sludge, PUD/gastritis * No immediate surgical intervention recommend at this time * HIDA scan, keep NPO, IV fluids, antiemetics, pain control -Also discussed with GI service, who recommended MRCP. Will see tomorrow -No fever, non toxic appearing-- will hold off on antibiotics for now. Plan to obtain cultures and start abx if becomes febrile (3) HTN (hypertension): Elevated in the setting of pain, did not take morning meds -Given home dose of Toprol, pain medication with improvement of BP -Hold HCTZ in AM but continue Toprol -Monitor (4) HLD (hyperlipidemia): Hold statin (5) GERD (gastroesophageal reflux disease): Continue protonix (6) Insomnia: Continue amitriptyline, trazodone DVT Ppx: SCDs Code status: FULL PCP: Brandi Dispo: Admitted to [facility]. Plan to return home once medically stable. Patient seen in collaboration with Dr. Mcdonnell. Please see addendum. History of Present Illness Chief Complaint: RUQ pain Primary Care Provider: Toby Paz This is a 52yo M with a PMH of steatosis of liver, GERD, HTN, HLD who presents with worsening RUQ pain x 1 week. Patient has been experiencing RUQ for the past 2 months with associated abdominal bloating, nausea and vomiting. Describes pain as constant and sharp pain in his upper abdomen, mostly on the right. Was seen in ED on Monday and had a gallbladder ultrasound which revealed biliary sludge but no evidence of cholelithiasis or acute cholecystitis. CT abd/pelvis without acute intra-abdominal findings. Was discharged home with plan for outpatient GI visit and possible HIDA scan. Since Monday, right upper quadrant pain has worsened and patient has been nauseous with 2 episodes of emesis daily. Also endorsing diarrhea over the past few days. Decreased appetite. Was brought back by evert� today for further evaluation and pain control. Patient is hemodynamically stable with slight leukocytosis of 10.9k. GB ultrasound looks similar to one from 05/28. Evidence of trace GB sludge, no gallstones. LFTs have increased since monday, with AST of 125 to 134 and ALT of 115 to 142. Total bilirubin, alk phos and lipase within normal limits. Has been followed by GI in the past for history of GERD and steatosis of liver. Had an EGD performed with pH probe placement in January 2018 that was normal. Colonoscopy performed earlier this month with 7 polyps removed (benign) as well as diverticulosis of the sigmoid colon and internal hemorrhoids. History of bowel resection [address] Marr. Allergies Allergy/AdvReac Type Severity Reaction Status Date / Time bee venom protein (honey bee) AdvReac Severe Anaphylaxis Unverified 05/31/18 11:11 Home Medications Home Medications Medication Instructions Recorded Confirmed Type Protonix 40 mg PO QAM 01/18/18 05/31/18 History atorvastatin 20 mg PO HS 01/18/18 05/31/18 History epinephrine [EpiPen] 0.3 mg IM DIRECTED PRN 01/18/18 05/31/18 History metoprolol succinate 25 mg PO QAM 01/18/18 05/31/18 History amitriptyline 10 mg PO HS 05/28/18 05/31/18 History hydrochlorothiazide 25 mg PO QAM 05/28/18 05/31/18 History trazodone 50 mg PO HS 05/28/18 05/31/18 History acetaminophen [Tylenol Extra 1,000 mg PO Q6H PRN 05/31/18 05/31/18 History Strength] Past Med/Surg History Medical History GERD (gastroesophageal reflux disease) Hyperlipidemia Hypertension Surgical History History of appendectomy History of bowel resection 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 History of colonoscopy History of esophagogastroduodenoscopy (EGD) History of tooth extraction Social History Preferred Language: Senegalese Beliefs That Will Affect Care: None Current Living Situation: Significant Other Current Living Situation Comment: LIVES WITH GIRLFRIEND Feels Safe at Home: Yes Smoking Status: Never smoker Hx Alcohol Use: Yes Hx Substance Use: No Review of Systems All systems reviewed & are unremarkable except as noted in HPI & below Physical Exam Vital Signs (Past 24 Hours): Last Vital Signs Temp 36.6 C 05/31/18 09:49 Pulse 88 05/31/18 16:16 Resp 20 05/31/18 16:16 BP 152/103 H 05/31/18 16:16 Pulse Ox 95 05/31/18 16:16 Physical Exam: General Appearance: WD/WN, mild distress from acute illness, facial swelling (chronic) Head: normocephalic, atraumatic Eyes: normal inspection, PERRL, EOMI ENT: hearing grossly normal, pharynx normal (moist mucous membranes) Neck: supple, no JVD, no adenopathy Respiratory/Chest: lungs clear to auscultation. No wheezes, rales or rhonci. No respiratory distress or accessory muscle use Cardiovascular: regular rate, rhythm, no murmur, normal peripheral pulses Abdomen/GI: hypoactive bowel sounds, distention, tenderness in RUQ >LUQ. + guarding Extremities/Musculoskelatal: normal inspection, no calf tenderness, normal capillary refill, no pedal edema Neurologic/Psych: alert, normal mood/affect, oriented x 3 Skin: normal color, warm/dry Results & Data Laboratory Results Short CBC 05/31/18 Range/Units 10:20 WBC 10.96 H (4.8-10.8) K/uL Hgb 15.9 (14.0-18.0) g/dL Hct 46.4 (42-52) % Plt Count 163 (130-400) K/uL BMP 05/31/18 10:20 Sodium 140 Potassium 3.5 Chloride 110 H Carbon Dioxide 24 BUN 11 Creatinine 0.85 Glucose 100 H Calcium 8.3 L Liver Function 05/31/18 Range/Units 10:20 Total Bilirubin 0.5 (0.2-1) mg/dl AST 134 H (15-37) U/L ALT 142 H (12-78) U/L Alkaline Phosphatase 107 (45-117) U/L Albumin 3.1 L (3.4-5.0) gm/dl Urine 05/31/18 Range/Units 10:20 Urine Color Dark Yellow Urine Appearance Clear (Clear) Urine pH 5.0 (4.5-7.5) Ur Specific Keller 1.032 H (1.000-1.030) Urine Protein 2+ H (Negative) Urine Glucose (UA) Negative (Negative) Diagnostic Findings Gallbladder ultrasound: IMPRESSION: 1. Moderate gallbladder distention, similar to exam of May 28, 2018. Trace sludge. No gallstones, gallbladder wall thickening or sonographic Ramos sign. These findings are not highly suggestive of acute cholecystitis however a hepatobiliary scan could be obtained as indicated. 2. No biliary ductal dilatation. 3. Obscured pancreas. Supervising Physician Co-Signing Physician Notes I have seen and examined the patient with physician medical support assistant and agree with the assessment and plan as above and would like to comment that patient has had history of gastrointestinal workup and here with persistent right upper quadrant abdominal pain. Patient has transaminitis and on current imaging with sludge in gallbladder. Patient does not appear to be septic at this time. General surgery and gastrointestinal service have been consulted and currently will engage in more noninvasive testing of gallbladder and biliary tract with MRCP and HIDA scan On physical exam General: no acute distress, verbal Abdomen: tenderness of right upper quadrant, bowel sounds present heart: regular rate respiratory: lungs clear to auscultation bilaterally Extremities/Neuro: no focal deficits and moves all extremities Other medical management as listed by physician medical support assistant Patient was admitted by physician medical support assistant with Dr. Mcdonnell as admitting physician. Patient will be followed by colleague hospitalist Dr Daniel starting 06/01/2018
[2018-05-31] MEDS ORDERED: METOPROLOL SUCC 50MG EXT REL TAB PO STA (17:58)
--- NOTE | 2018-05-31 19:27 | Magnetic Resonance Report ---
Study: MRCP HISTORY: Pain. COMPARISON: Gallbladder ultrasound 05/31/2018, CT 05/28/2018. FINDINGS: Normal gallbladder liver pancreas and spleen. Several subcentimeter hepatic as well as ramu l peripelvic cysts. The MRCP component of the study shows the common bile duct to be unremarkable. Pancreatic duct shows no evidence for distention. IMPRESSION: 1. Several small hepatic as well as renal cysts. 2. Study is otherwise normal. 3. Normal MRCP. Electronically signed by: Brain Cherry M.D. 05/31/2018 7:26 PM
[2018-05-31] MEDS ORDERED: ONDANSETRON INJ 2 MG/ML 2 ML VIAL IV PRN (19:33)
[2018-05-31] MEDS ORDERED: POTASSIUM CHLORIDE 40 MEQ in SODIUM CHLORIDE 0.9% 1000ML 1,000 ML IV SCH (19:33)
[2018-05-31] MEDS: HYDROmorphone INJ 0.5 MG/0.5 ML SYR IV PRN (19:48)
[2018-05-31] MEDS: TRAMADOL HCL 50 MG TABLET PO PRN (20:20)
[2018-05-31] MEDS ORDERED: AMITRIPTYLINE HCL 10 MG TAB PO SCH (21:00)
[2018-05-31] MEDS ORDERED: TRAZODONE HCL 50 MG TAB PO SCH (21:00)
[2018-06-01] MEDS: TRAMADOL HCL 50 MG TABLET PO PRN ×2 (00:55→12:16)
[2018-06-01 06:29] LABS: Hematocrit (blood only) 44.5 % (42-52); Hemoglobin 14.8 g/dL (14.0-18.0); Mean Corpuscular Hgb Conc 33.3 g/dL (32-36); Mean Corpuscular Volume 101.6 fL (80-100); Mean Platelet Volume 11.1 fL (7.4-10.4); Platelet Count 156 K/uL (130-400); RDW Coefficient of Variation 14.7 % (11.5-14.5); RDW Standard Deviation 54.6 fL (36.4-46.3); Red Blood Count 4.38 M/uL (4.7-6.1)
[2018-06-01 07:02] LABS: Albumin Level 2.8 gm/dl (3.4-5.0); BUN Creatinine Ratio 15.3 (10-20); Creatinine Clr Calc Pharmacy 128.6 ml/min; Est GFR (African American) 121.4; Est GFR (Non-African American) 104.7
[2018-06-01 07:06] LABS: Albumin Globulin Ratio 0.8 (0.9-2); Bilirubin,Total 0.7 mg/dl (0.2-1); Globulin 3.3 gm/dl (2.5-4.0); Total Protein 6.1 gm/dl (6.4-8.2)
[2018-06-01] MEDS ORDERED: METOPROLOL SUCC 25MG EXT REL TAB PO SCH (09:00)
[2018-06-01] MEDS ORDERED: PANTOprazole 40 MG TAB PO SCH (09:00)
[2018-06-01] MEDS ORDERED: SINCALIDE 1.9 MCG in 0.9 % SODIUM CHLORIDE 100 ML IV SCH (09:00)
--- NOTE | 2018-06-01 10:09 | Gastrointestinal Consultation ---
Date of Consultation June 01, 2018 Assessment & Plan (1) Elevated LFTs: His LFTs are likely elevated at baseline from fatty liver disease. It appears that his transaminases have increased from his baseline, possibly corresponding to an increase in pain. If this is the case, then his pain may represent pain from transient passage of biliary sludge or sphincter of oddi disorder. However, he does not have a clear pattern because he does not have relief of the pain when LFTs decrease. Could consider OP EUS +/- ERCP dependent on EUS findings. Could also consider cholecystectomy. However, he does not have a clear pattern of biliary colic because his pain is constant, not intermittent, thus he does not have clear indication for ERCP or cholecystectomy. Present on Admission?: Yes (2) RUQ pain: (3) Intractable right upper quadrant abdominal pain: Supervising Physician Co-Signing Physician Notes Further discussion with Dr. Garcia is to hold on ERCP but to schedule EUS-liver biopsy and further serologic workup for elevated lft's that Keyanna will order. Outpatient EUS follow-up. GI will sign off. History of Present Illness Reason for Consultation: RUQ pain Requesting Physician: Fredy Attending Physician: Mark Daniel MD History of Present Illness Mr. Mauro Gutierrez is a 52 yr old male with a hx of HTN, GERD, SBO, angiodedema who presented to the ED yesterday for RUQ pain. His fiance and the sanchez's daughter are present in the room. Initially, the pt was in the bathroom. He ambulated back to bed w/o any assistance. Once in bed, he told me that his pain is a 10 of 10 and that it is present every day for the past 2-3 months and that he never has any time without pain and never has any improvement in the pain. He also states, however, that the pain is worse after eating (sometimes). He also has nausea, bloating. His fiance tells me that she is "not taking him home without somebody doing something.....he can't live like this...I will take him to [place] if nobody does anything here." On arrival, transaminases were elevated: AST 134->232, ALT 142->171. These levels are significantly elevated from his baseline is AST 50, ALT 85, seen in Apr 2018. However, prior records show an elevation in Apr 2017: AST 239, ALT 383. There has not been any T Bili or Alk Phos elevation. Lipase has been normal. Imaging studies completed since arrival show a dilated GB with trace GB sludge, but no biliary ductal dilation, gallbladder wall thickening or evidence of choledocholithiasis. NM HIDA was normal. Prior w/u has included Gliden antibody (+) at 26 and recommended to follow a gluten free diet. EGD with Maguire 01/24/18: normal Colonoscopy 05/18/18 Dr. Shi: endoscopically normal but many polyps were removed, largest 15mm (surveillance rec 1 yr). OP GB US 03/28/18: stable hepatic cysts, fatty liver, no gallstones, wall thickening or biliary ductal dilation. Allergies Allergy/AdvReac Type Severity Reaction Status Date / Time bee venom protein (honey bee) AdvReac Severe Anaphylaxis Unverified 05/31/18 11:11 Home Medications Home Medications Medication Instructions Recorded Confirmed Type Protonix 40 mg PO QAM 01/18/18 05/31/18 History atorvastatin 20 mg PO HS 01/18/18 05/31/18 History epinephrine [EpiPen] 0.3 mg IM DIRECTED PRN 01/18/18 05/31/18 History metoprolol succinate 25 mg PO QAM 01/18/18 05/31/18 History amitriptyline 10 mg PO HS 05/28/18 05/31/18 History hydrochlorothiazide 25 mg PO QAM 05/28/18 05/31/18 History trazodone 50 mg PO HS 05/28/18 05/31/18 History acetaminophen [Tylenol Extra 1,000 mg PO Q6H PRN 05/31/18 05/31/18 History Strength] Patient History Medical History GERD (gastroesophageal reflux disease) Hyperlipidemia Hypertension Surgical History History of appendectomy History of bowel resection 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 History of colonoscopy History of esophagogastroduodenoscopy (EGD) History of tooth extraction Social History Preferred Language: Kittitian Communication Ability: Effective Veterinary Bacteriologist Required: No Beliefs That Will Affect Care: None Current Living Situation: Family Current Living Situation Comment: LIVES WITH GIRLFRIEND Other Information That Helps Us Care for You: No Feels Safe at Home: Yes Safety Concerns: Feels Safe At This Time Smoking Status: Never smoker Hx Alcohol Use: Yes Hx Substance Use: No Review of Systems Constitutional: no fever, no chills, no body aches, no fatigue and no weakness + intermittent itchiness no icteris Respiratory: no cough and no chest congestion S/O feeling SOB with abdominal bloating Cardiovascular: no chest pain, no palpitations and no edema Musculoskeletal: no joint pain Integumentary: + rash (had a rash on his back - not currently present) Neurologic: no gait abnormality, no unsteadiness and no falls does not mention any depression/anxiety Hematologic / Lymphatic: no easy bleeding, no easy bruising, no lymphadenopathy and no night sweats Physical Exam Vital Signs (Past 24 Hours): Last Vital Signs Temp 36.8 C 06/01/18 08:00 Pulse 78 06/01/18 08:00 Resp 16 06/01/18 08:00 BP 125/81 06/01/18 08:00 Pulse Ox 94 06/01/18 08:00 Constitutional: WD/WN, vitals as above well developed, well nourished, + acute distress and + obese Eyes: PERRL, conjunctivae normal, anicteric sclerae ENMT: external ear and nose normal, oropharynx normal Neck: trachea midline, no thyromegaly Respiratory: normal respiratory effort, lungs clear to auscultation Cardiovascular: RRR, no murmur, no edema Gastrointestinal (Abdomen): Inspection/Auscultation: + abdomen distended (very mild) Percussion/Palpation: + abdomen tender (RUQ and epigastric tenderness) and abdomen soft Skin: no rashes, warm and dry Neurologic: moves all extremities and awake; not confused Motor/Sensory: no tremor Psychiatric: Orientation: oriented x 3 intermittent contact - usually averting his gaze elsewhere Lymphatic: no cervical or axillary lymphadenopathy Results & Data Diagnostic Findings MRCP 05/31/18: 1. Several small hepatic as well as renal cysts. 2. Study is otherwise normal. 3. Normal MRCP. CT abd/pelvis with IV contrast 05/28/18: 1. There are no acute infectious or inflammatory findings in the abdomen or pelvis. 2. The gallbladder is distended otherwise normal in appearance. If there is strong clinical concern for gallbladder disease consider correlation with a right upper quadrant ultrasound. 3. A metallic foreign body is noted within the right colon. 4. Additional findings as above. US 05/28/18: 1. Gallbladder sludge with likely physiologic gallbladder distention. No cholelithiasis or biliary ductal dilatation. No convincing evidence of cholecystitis. 2. Hyperechogenic and heterogeneous liver parenchyma suggests underlying steatosis or fibrosis. Correlate with liver function tests to exclude steatohepatitis as a cause for abdominal pain. US 05/31/18: 1. Moderate gallbladder distention, similar to exam of May 28, 2018. Trace sludge. No gallstones, gallbladder wall thickening or sonographic Ramos sign. These findings are not highly suggestive of acute cholecystitis however a hepatobiliary scan could be obtained as indicated. 2. No biliary ductal dilatation. 3. Obscured pancreas.
--- NOTE | 2018-06-01 10:14 | Nuclear Medicine Report ---
NUCLEAR MEDICINE HEPATOBILIARY SCAN WITH GALLBLADDER EJECTION FRACTION CLINICAL HISTORY: Right upper quadrant pain. Gallbladder sludge. COMPARISON: CT of the abdomen and pelvis May 28, 2018. Right upper quadrant ultrasound and MRCP May 31, 2018. TECHNIQUE: 5.3 mCi of technetium 99m Choletec IV was injected at 8:00 AM on June 01, 2018. Immediat javier following injection, imaging of the abdomen was carried out for 60 minutes in the anterior projec tion. At this time, 1.9 mcg of Sincalide was injected IV as per protocol. Imaging was performed for a n additional 45 minutes to estimate a gallbladder ejection fraction. FINDINGS: Hepatic uptake of radiotracer is prompt and homogeneous. Activity is identified within the gallbladder, small bowel and common bile duct at 10 minutes. Following injection of sincalide, herman l gallbladder emptying was noted with an ejection fraction of 77%. Normal is greater than 35%. IMPRESSION: 1. Normal hepatobiliary scan. No evidence for acute or chronic cholecystitis. 2. Normal gallbladder ejection fraction of 77%. Electronically signed by: Hira Cordova M.D. 06/01/2018 10:13 AM
[2018-06-01] MEDS: HYDROmorphone INJ 0.5 MG/0.5 ML SYR IV PRN (10:59)
--- NOTE | 2018-06-01 11:09 | Surgery Progress Note ---
Date of Service June 01, 2018 Assessment & Plan (1) Abdominal pain: Persistent intractable RUQ abdominal pain for past 2 months with abdominal bloating, nausea, vomiting, change in bowel habits with diarrhea in setting of chronic GERD/reflux on PPI therapy. Ultrasound on 05/28 and today showing gallbladder sludge however no evidence of acute cholecystitis. CT scan on 05/28/18 showing no acute intra-abdominal findings. MRCP negative, no choledocholithiasis. HIDA scan showing no evidence of acute or chronic cholecystitis. EF 77%. DDx: Primary hepatic etiology, sphincter of henri dysfunction, symptomatic biliary disease due to gallbladder sludge, PUD/gastritis Discussed imaging and lab findings with GI service. He has no signs of choledocholithaisis or acute/chronic cholecystitis on imaging. HIDA EF 77%. His labs are showing increasing AST and ALT however normal t. bili and alk phos. ?? sphincter of henri dysfunction vs biliary dyskinesia vs symptomatic biliary sludge. His presentation of severe RUQ abdominal pain with elevated AST/ALT and abdominal bloating is not very consistent with just biliary sludge. Possibly consider ERCP for biliary sphincterotomy. Will await GI final recommendations. Recommend Hepatitis panel Continue Npo in case of procedure, continue IV fluids, IV pain management and IV Zofran as needed. Continue medical management Dr. Phillips has seen and examined patient. (2) Elevated LFTs: Chronic?? Consult GI for further eval HIDA scan Plan as above Supervising Physician Co-Signing Physician Notes I have seen and examined the patient with Randi Fonseca PA-C and agree with the above documentation. 52 yo male wtih a history hl, htn, gerd, prior workup for reflux with otero placement in 01/18, + antibody for celiac with prior negative duodenal biopsies in 2016, admitted with abdominal pain, and labs c/w ast/alt elevation superimposed on a baseline elevation in his lft's. He has been afebrile, hemodynamically stable. Denies recent etoh use, new medications.C Currently constipated with intermittent bloating. MRCP and HIDA normal. Subjective still having severe pain still feels very bloated +hungry and thirsty no nausea or vomiting Physical Exam Vital Signs (Past 24 Hours): Last Vital Signs Temp 36.8 C 06/01/18 08:00 Pulse 78 06/01/18 08:00 Resp 16 06/01/18 08:00 BP 125/81 06/01/18 08:00 Pulse Ox 94 06/01/18 08:00 Constitutional: WD/WN, vitals as above no acute distress and not ill appearing Respiratory: no respiratory distress Gastrointestinal (Abdomen): Inspection/Auscultation: + abdomen distended and + abdominal surgical scar (midline laparotomy scar and RLQ longitudinal scar); + abnormal bowel sounds Percussion/Palpation: + abdomen tender (RUQ on very mild palpation) and + guarding; abdomen not rigid and + abdomen not soft Skin: no rashes, warm and dry Psychiatric: A+Ox3, euthymic affect Results & Data Laboratory Results 06/01/18 06/01/18 05/31/18 Range/Units 06:06 06:06 10:26 WBC 8.90 (4.8-10.8) K/uL RBC 4.38 L (4.7-6.1) M/uL Hgb 14.8 (14.0-18.0) g/dL Hct 44.5 (42-52) % MCV 101.6 H (80-100) fL MCH 33.8 (25-34) pg MCHC 33.3 (32-36) g/dL RDW Std Deviation 54.6 H (36.4-46.3) fL RDW Coeff of Fabiola 14.7 H (11.5-14.5) % Plt Count 156 (130-400) K/uL MPV 11.1 H (7.4-10.4) fL Sodium 141 (136-145) mmol/L Potassium 4.0 (3.5-5.1) mmol/L Chloride 112 H (98-107) mmol/L Carbon Dioxide 26 (21-32) mmol/L Anion Gap 3.0 (3-11) BUN 11 (7-18) mg/dl Creatinine 0.75 (0.6-1.4) mg/dl Est Cr Clr Drug Dosing 128.6 ml/min Est GFR ( Amer) 121.4 Est GFR (Non-Af Amer) 104.7 BUN/Creatinine Ratio 15.3 (10-20) Glucose 81 (70-99) mg/dl Calcium 8.0 L (8.5-10.1) mg/dl Total Bilirubin 0.7 (0.2-1) mg/dl AST 232 H (15-37) U/L ALT 171 H (12-78) U/L Alkaline Phosphatase 84 (45-117) U/L Total Protein 6.1 L (6.4-8.2) gm/dl Albumin 2.8 L (3.4-5.0) gm/dl Globulin 3.3 (2.5-4.0) gm/dl Albumin/Globulin Ratio 0.8 L (0.9-2) Hepatitis C Ab Screen Neg (Neg) Diagnostic Findings Study: MRCP HISTORY: Pain. COMPARISON: Gallbladder ultrasound 05/31/2018, CT 05/28/2018. FINDINGS: Normal gallbladder liver pancreas and spleen. Several subcentimeter hepatic as well as renal peripelvic cysts. The MRCP component of the study shows the common bile duct to be unremarkable. Pancreatic duct shows no evidence for distention. IMPRESSION: 1. Several small hepatic as well as renal cysts. 2. Study is otherwise normal. 3. Normal MRCP. NUCLEAR MEDICINE HEPATOBILIARY SCAN WITH GALLBLADDER EJECTION FRACTION CLINICAL HISTORY: Right upper quadrant pain. Gallbladder sludge. COMPARISON: CT of the abdomen and pelvis May 28, 2018. Right upper quadrant ultrasound and MRCP May 31, 2018. TECHNIQUE: 5.3 mCi of technetium 99m Choletec IV was injected at 8:00 AM on June 01, 2018. Immediately following injection, imaging of the abdomen was carried out for 60 minutes in the anterior projection. At this time, 1.9 mcg of Sincalide was injected IV as per protocol. Imaging was performed for an additional 45 minutes to estimate a gallbladder ejection fraction. FINDINGS: Hepatic uptake of radiotracer is prompt and homogeneous. Activity is identified within the gallbladder, small bowel and common bile duct at 10 minutes. Following injection of sincalide, normal gallbladder emptying was noted with an ejection fraction of 77%. Normal is greater than 35%. IMPRESSION: 1. Normal hepatobiliary scan. No evidence for acute or chronic cholecystitis. 2. Normal gallbladder ejection fraction of 77%. (1) Abdominal pain Abdominal location: right upper quadrant Qualified Code(s): R10.11 - Right upper quadrant pain
--- NOTE | 2018-06-01 13:06 | XRay Report ---
XR KUB CLINICAL HISTORY: Generalized abdominal pain. COMPARISON STUDY: 03/22/2016 FINDINGS: There is no radiographic evidence of bowel obstruction. A mildly prominent central bowel lo op likely represents a sigmoid colon. This was present on the prior study. There are no calcification s suspicious for renal calculi. A metallic density projected over the right mid abdomen, may represen t a biopsy marker. IMPRESSION: No conventional radiographic evidence of bowel obstruction. Electronically signed by: Álvaro Alberts M.D. 06/01/2018 1:05 PM
--- NOTE | 2018-06-01 14:24 | Hospitalist Progress Note ---
Date of Service June 01, 2018 Assessment & Plan (1) Intractable right upper quadrant abdominal pain: (2) Elevated LFTs: Patient is a 52 yr male with a PMH of steatosis of liver, GERD, HTN, HLD who presents with ongoing RUQ abdominal pain --Gall Bladder USD:Moderate gallbladder distention, similar to exam of May 28, 2018. Trace sludge. No gallstones, gallbladder wall thickening or sonographic Ramos sign. These findings are not highly suggestive of acute cholecystitis however a hepatobiliary scan could be obtained as indicated. No biliary ductal dilatation. Obscured pancreas. --Had normal EGD in Jan 2018, colonoscopy done earlier this month with polyp removal --MRCP: Several small hepatic as well as renal cysts. Study is otherwise normal. Normal MRCP. --HIDA Scan:Normal hepatobiliary scan. No evidence for acute or chronic cholecystitis. Normal gallbladder ejection fraction of 77%. --KUB:No conventional radiographic evidence of bowel obstruction. --DD:Biliary sludge or sphincter of oddi disorder Needs EUS with liver biopsy with or without ERCP as outpatient Further serological work up for transaminitis as outpatient (Ordered by GI) Appreciate GI and Surgery Input No indication for surgery as per Surgery low fat/gluten free diet Bowel regimen to prevent constipation (3) HTN (hypertension): stable Continue home medications Monitor (4) HLD (hyperlipidemia): Hold statin for now (5) GERD (gastroesophageal reflux disease): Continue protonix (6) Insomnia: Continue amitriptyline, trazodone DVT Px: SCDs Code status: FULL PCP: Brandi Dispo: Plan to discharge home today Subjective Patient is seen and examined at bedside Reports abdominal pain since 2 months Also reports chronic nausea, bloating Denies chest pain, SOB, dizziness Discussed with GI and Surgery today No plan for surgery Needs EUS with liver biopsy as outpatient Physical Exam Vital Signs (Past 24 Hours): Last Vital Signs Temp 36.7 C 06/01/18 12:12 Pulse 76 06/01/18 12:12 Resp 16 06/01/18 12:12 BP 142/83 H 06/01/18 12:12 Pulse Ox 90 06/01/18 12:12 Physical Exam: Physical Exam: Vitals signs as noted above General Appearance:Moderately built and nourished, no apparent distress Head: normocephalic, Atraumatic Eyes: normal inspection, EOMI Neck: supple, Trachea midline Respiratory/Chest: Normal breath sounds, CTA Cardiovascular: S1, S2, No murmur Abdomen/GI:mild abdominal distention, + RUQ/RLQ tender, Bowel sounds present Extremities/Musculoskelatal:normal inspection, no edema Neurologic/Psych:AAOX3, grossly no focal neurological deficits Skin: normal color, warm Results & Data Laboratory Results Short CBC 06/01/18 Range/Units 06:06 WBC 8.90 (4.8-10.8) K/uL Hgb 14.8 (14.0-18.0) g/dL Hct 44.5 (42-52) % Plt Count 156 (130-400) K/uL BMP 06/01/18 06:06 Sodium 141 Potassium 4.0 Chloride 112 H Carbon Dioxide 26 BUN 11 Creatinine 0.75 Glucose 81 Calcium 8.0 L Liver Function 06/01/18 Range/Units 06:06 Total Bilirubin 0.7 (0.2-1) mg/dl AST 232 H (15-37) U/L ALT 171 H (12-78) U/L Alkaline Phosphatase 84 (45-117) U/L Albumin 2.8 L (3.4-5.0) gm/dl
[2018-06-01] MEDS ORDERED: POLYETHYLENE (MIRALAX) 17 GM PACK PO PRN (15:07)
--- NOTE | 2018-06-01 15:15 | Discharge Summary ---
Date of Service June 01, 2018 Admission HPI Per Admitting Provider This is a 52yo M with a PMH of steatosis of liver, GERD, HTN, HLD who presents with worsening RUQ pain x 1 week. Patient has been experiencing RUQ for the past 2 months with associated abdominal bloating, nausea and vomiting. Describes pain as constant and sharp pain in his upper abdomen, mostly on the right. Was seen in ED on Monday and had a gallbladder ultrasound which revealed biliary sludge but no evidence of cholelithiasis or acute cholecystitis. CT abd/pelvis without acute intra-abdominal findings. Was discharged home with plan for outpatient GI visit and possible HIDA scan. Since Monday, right upper quadrant pain has worsened and patient has been nauseous with 2 episodes of emesis daily. Also endorsing diarrhea over the past few days. Decreased appetite. Was brought back by evert� today for further evaluation and pain control. Patient is hemodynamically stable with slight leukocytosis of 10.9k. GB ultrasound looks similar to one from 05/28. Evidence of trace GB sludge, no gallstones. LFTs have increased since monday, with AST of 125 to 134 and ALT of 115 to 142. Total bilirubin, alk phos and lipase within normal limits. Has been followed by GI in the past for history of GERD and steatosis of liver. Had an EGD performed with pH probe placement in January 2018 that was normal. Colonoscopy performed earlier this month with 7 polyps removed (benign) as well as diverticulosis of the sigmoid colon and internal hemorrhoids. History of bowel resection [address] Marr. Admission Exam Per Admitting Provider General Appearance: WD/WN, mild distress from acute illness, facial swelling (chronic) Head: normocephalic, atraumatic Eyes: normal inspection, PERRL, EOMI ENT: hearing grossly normal, pharynx normal (moist mucous membranes) Neck: supple, no JVD, no adenopathy Respiratory/Chest: lungs clear to auscultation. No wheezes, rales or rhonci. No respiratory distress or accessory muscle use Cardiovascular: regular rate, rhythm, no murmur, normal peripheral pulses Abdomen/GI: hypoactive bowel sounds, distention, tenderness in RUQ >LUQ. + guarding Extremities/Musculoskelatal: normal inspection, no calf tenderness, normal capillary refill, no pedal edema Neurologic/Psych: alert, normal mood/affect, oriented x 3 Skin: normal color, warm/dry Principal Diagnosis Discharge Information Discharge Diagnosis Abdominal pain Discharge Goals Decrease discomfort,Improve disease control, Improve function Discharge Activity Limitations Resume your previous activity Discharge Data Allergies Allergy/AdvReac Type Severity Reaction Status Date / Time bee venom protein (honey bee) AdvReac Severe Anaphylaxis Unverified 05/31/18 11:11 Consultations 05/31/18 16:17 ED Decision to Admit Stat 05/31/18 19:33 Consult General Surgery Routine 06/01/18 08:00 Consult Gastroenterology Routine Ordered Studies 05/31/18 11:13 US gallbladder Stat 05/31/18 17:57 MR MRCP Routine Hospital Course (1) Intractable right upper quadrant abdominal pain: (2) Elevated LFTs: Patient is a 52 yr male with a PMH of steatosis of liver, GERD, HTN, HLD who presents with ongoing RUQ abdominal pain --Gall Bladder USD:Moderate gallbladder distention, similar to exam of May 28, 2018. Trace sludge. No gallstones, gallbladder wall thickening or sonographic Ramos sign. These findings are not highly suggestive of acute cholecystitis however a hepatobiliary scan could be obtained as indicated. No biliary ductal dilatation. Obscured pancreas. --Had normal EGD in Jan 2018, colonoscopy done earlier this month with polyp removal --MRCP: Several small hepatic as well as renal cysts. Study is otherwise normal. Normal MRCP. --HIDA Scan:Normal hepatobiliary scan. No evidence for acute or chronic cholecystitis. Normal gallbladder ejection fraction of 77%. --KUB:No conventional radiographic evidence of bowel obstruction. --DD:Biliary sludge or sphincter of oddi disorder Needs EUS with liver biopsy with or without ERCP as outpatient Further serological work up for transaminitis as outpatient (Ordered by GI) Appreciate GI and Surgery Input No indication for surgery as per Surgery low fat/gluten free diet Bowel regimen to prevent constipation (3) HTN (hypertension): stable Continue home medications Monitor (4) HLD (hyperlipidemia): Hold statin for now (5) GERD (gastroesophageal reflux disease): Continue protonix (6) Insomnia: Continue amitriptyline, trazodone DVT Px: SCDs Code status: FULL PCP: [place] Dispo: Plan to discharge home today Total Time Total Time Spent Total Time Spent (In Minutes): 37 minutes Total Time Includes: Examination of the Patient, Discharge Planning, Medication Reconciliation, Communication With Other Providers and Other Discharge Plan Discharge Items Patient Disposition: Home - Self-Care Reason For Visit: RUQ PAIN,GB SLUDGE Discharge Diagnosis: Abdominal pain Condition: Good Discharge Goals: Decrease discomfort, Improve disease control and Improve function Activity: Resume your previous activity Exercise/Sports: Gradually increase as tolerated Non-emergency contact: Primary Care Provider, Surgeon and Research Scholar Call non-emergency contact if: you have any medication questions, your symptoms worsen, your pain is not controlled, your pain is worsening, your pain is unusual for you, your pain is concerning for you and you have a fever Follow-up/Referrals: Toby Paz [Primary Care Provider] - Jena Phillips MD [Physician] - (Follow-up in surgical office once GI evalu ation completed. Please call office at [phone] to make an appointment. Call office with any questions or concerns. ) Diet: Gluten Free, Heart Healthy and Low Fat Addtl Provider Instructions: Follow up with your PCP on June 07, 2018 at 9:25 AM Follow up with your Research Scholar Keyanna Gordon PA-C on June 21, 2018 at 2:15pm Follow up with your Surgeon in 1-2 weeks Avoid drinking alcohol, Tylenol until your liver function tests normalize--further recommendations as per your physician Seek immediate medical attention if your symptoms reoccur or worsen Prescriptions: New tramadol 50 mg Tablet 50 mg PO Q8H PRN (Reason: pain) 7 Days Qty: 20 RF: 0 docusate sodium [Colace] 100 mg capsule 100 mg PO BID PRN (Reason: constipation) 30 Days Qty: 60 RF: 0 polyethylene glycol 3350 [Miralax] 17 gram Powder In Packet 17 g PO DAILY PRN (Reason: constipation) 30 Days Qty: 30 RF: 0 Continued atorvastatin 20 mg Tablet 20 mg PO HS RF: 0 metoprolol succinate 25 mg Tablet Extended Release 24 Hr 25 mg PO QAM RF: 0 epinephrine [EpiPen] 0.3 mg/0.3 mL Auto-Injector 0.3 mg IM DIRECTED PRN (Reason: ALLEGIC REACTION) RF: 0 Protonix [address] Milo Susp In Packet 40 mg PO QAM RF: 0 trazodone 50 mg tablet 50 mg PO HS RF: 0 amitriptyline 10 mg tablet 10 mg PO HS RF: 0 hydrochlorothiazide 25 mg tablet 25 mg PO QAM RF: 0 Discontinued acetaminophen [Tylenol Extra Strength] 500 mg Tablet 1,000 mg PO Q6H PRN (Reason: Pain) RF: 0 Stand-Alone Forms: Call Back Authorization, [facility] Discharge Orders: Discharge Order (Routine); Ordered 06/01/18 Ordered By: Mark Daniel Admission Data Admit Date/Time: 05/31/18 17:25 Attending Provider: Mark Daniel Admit Provider: Kelvin Mcdonnell Primary Care Provider: Toby Paz Other Providers: Kelvin Mcdonnell ; Jena Phillips ; Jena Camargo Service: Telemetry Other Interventions: Discharge Summary Assessment (RN) Last Done: 06/01/18 15:24 DC Date/Time DO NOT enter until pt leaves facility: 06/01/18 15:33
--- NOTE | 2018-06-01 16:51 | Communication Note ---
Date of Service: June 01, 2018 The documentation in quotations below is documentation from the Dive Superintendent that was inadvertently placed in the attending attestation of the General Surgery progress note from today. This is NOT my interpretation or recommendations but serves as record of documentation of another physician from another specialty's recommendations. I am placing this as a separate document and deleting from the General Surgery note to avoid confusion in future review of the patient's chart. "I have seen and examined the patient wtrodger YOGESH Ruff. 52 yo male wt a history hl, htn, gerd, prior workup for reflux with otero placement in 01/18, + antibody for celiac with prior negative duodenal biopsies in 2016, admitted with abdominal pain, and labs c/w ast/alt elevation superimposed on a baseline elevation in his lft's. He has been afebrile, hemodynamically stable. Denies recent etoh use, new medications.C Currently constipated with intermittent bloating. MRCP and HIDA normal. Bloating- would give a bowel regimen, he may have celiac sensitivity as opposed to overt celiac disease contributing to his bloating and would recommend a trial of a gluten free diet. Fatty liver on imaging- with elevated ast/alt. Would consider outpatient eus- liver biopsy. Elevated liver enzymes- no evidence of acute cholecsytitis, choledocholiathiasis or cholangitis, ? sod - outpatient ERCP referral with Dr. Garcia. Would give a bowel regimen, slow advancement of diet and further outpatient follow-up as per above. GI will sign off. "
== END 2018-06-01 15:33 | disposition home or self-care (01) | DRG 392 ==
LOC: ED 09:41 → 2N 17:25

== ENCOUNTER 2021-06-06 10:06 | Observation (INO) ==
--- NOTE | 2021-06-06 10:33 | Emergency Department Note ---
Impression & Plan Elevated LFTs, Abdominal pain, Bloody stools, Acute UTI, Thrombocytopenia ED Provider Note NAME: MARLEEN MELTON AGE: 55 SEX: M : 1965 ARRIVES VIA: Walk-In INFORMANT: patient, ED PROVIDER(S): Eris Cooper MD Chief Complaint: Abdominal pain HPI: Patient presents due to concern for abdominal pain primarily left lower quadrant that is achy in nature nonradiating. Patient has complained of some bloody stools but denies any prior history of diverticulitis or colon cancer. Patient denies any fevers or chills. The patient does complain of some chest pain which is more epigastric pain. No exertional symptoms. Patient does complain of occasional shortness of breath but thinks that this is related to when he takes a short breath he develops abdominal pain. The patient has had nausea but no vomiting. Patient denies any cough or fever. The patient has not taken anything for symptoms at home. Patient states that his symptoms have been ongoing fairly constant progressively worse x1 week. Patient denies any dysuria or hematuria and has no prior history of kidney stones. Patient does have a prior history of bowel obstruction that did require surgical repair back in [address] Marr. ROS: See HPI for pertinent positives and negatives. A total of 10 systems were reviewed and otherwise negative. Past medical history: See below Surgical history: See below Social history: See below Physical Exam: GENERAL: NAD, wearing glasses, wearing a mask, non-toxic. EYE EXAM: Normal conjunctiva. PERRL, no anisocoria and EOM's grossly intact w/o pain. OROPHARYNX: Moist mucus membranes. Grossly normal dentition. NECK: Supple, no nuchal rigidity, no adenopathy, non-tender. No signs of m eningismus. LUNGS: Clear to auscultation. Normal chest wall mechanics. HEART: NSR, no MRG. ABDOMEN: Abdomen soft, diffuse abdominal pain but most prominent left lower quadrant, normo-active bowel sounds, no masses, no rebound or guarding. BACK: No CVA TTP. SKIN: No rashes and no bruising. UPPER EXTREMITIES: Upper extremities are grossly normal. LOWER EXTREMITIES: Grossly normal, no edema. NEURO EXAM: A&O x3, cranial nerves II-XII grossly intact, normal speech, moves all 4 extremities on command w/o issue. Differential diagnoses: Appendicitis, testicular torsion, infections, diverticulitis, UTI, obstruction, mesenteric ischemia, aortic pathology, inflammatory bowel disease, renal colic, PUD, pancreatitis, biliary pathology, hernia, volvulus, constipation, as well as other pathologies. Course: Patient was seen and evaluated the bedside. Full history physical exam was performed. EKG interpreted by me Normal sinus rhythm, rate of 92, normal intervals, normal axis, T wave inversion in lead III not contiguous leads, no obvious ST changes, no significant change from comparison EKG 08/27/2019. Imaging Studies: See Below Cardiac monitoring: An order was placed for continuous cardiac monitoring. The monitor shows a rate of 88 with sinus rhythm. MDM: Patient was seen due to concern for abdominal pain ongoing x1 week left lower quadrant with associated bloody stools. I did have initial concern for the possibility of diverticulitis and the patient did have blood work completed along with CT abdomen pelvis and was ordered IV morphine and antiemetics IV Zofran. Blood work showed a normal white count and hemoglobin. The patient's kidney function was unremarkable with mild hypokalemia. Patient does have a transaminitis with a bili 1.8 mild elevations in AST and ALT. Troponin is not detectable and lipase is normal. Urinalysis does show blood and possible infection. Patient was covered with antibiotics as a precaution. Patient CT did not show any acute infectious findings but was noted to have dilatation of the mesenteric vasculature. Unknowing of this was related to the patient's etiology of symptoms I did speak with the on-call general surgeon Dr. Burrows did r eview the patient's scan and did note that the patient has more prominent vasculature but does not have any recommendations for surgery at this time. Given the patient's atypical symptoms and ongoing [address] finding and associated cystitis I did speak with the on-call hospitalist Coral sanchez PA-C and the patient was admitted to Dr. Mock. The patient did have a right upper quadrant ultrasound completed to evaluate the liver given the patient's transaminitis. This was somewhat difficult study given the overlying bowel gas but otherwise unremarkable and showed a normal CBD. Past Med/Surg History Medical History Abdominal pain GERD (gastroesophageal reflux disease) Hyperlipidemia Hypertension Nausea Surgical History History of appendectomy History of bowel resection 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 History of colonoscopy History of esophagogastroduodenoscopy (EGD) History of tooth extraction Family History Father Hearing loss Hypertension Stroke Heart disease Other No pertinent family history in first degree relatives Denies family history of No family history of adverse response to anesthesia No family history of bleeding disorder Allergies Asthma Social History Smoking Status: Former smoker Tobacco Type: Cigarettes Second Hand Exposure: Yes; Hx Alcohol Use: Yes Alcohol type: beer Hx Substance Use: No Preferred Language: Singaporean Communication Ability: Effective Director Client Required: No Beliefs That Will Affect Care: None marital status: Single Current Living Situation: Significant Other Current Living Situation Comment: LIVES WITH GIRLFRIEND 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 Safe at Home: Yes Assistive Devices: Glasses Allergies Allergies Allergy/AdvReac Type Severity Reaction Status Date / Time No Known Drug Allergies Allergy Verified 06/06/21 13:45 Home Meds Home Medications Medication Instructions Recorded Confirmed atorvastatin 20 mg tablet 20 mg PO HS 01/18/18 06/06/21 hydrochlorothiazide 25 mg tablet 25 mg PO QAM 05/28/18 06/06/21 pantoprazole 40 mg tablet,delayed 40 mg PO QAM 07/26/18 06/06/21 release prednisone 20 mg tablet 20 - 40 mg PO UD PRN 08/27/19 06/06/21 Results & Data (ED) Vital Signs Vital Signs - 24 hr 06/06/21 10:18 06/06/21 10:54 06/06/21 10:55 Temperature 37.1 C Temperature Source Temporal Artery Scan Pulse Rate 78 90 Pulse Rate from SpO2 Sensor 90 Respiratory Rate 18 19 Respiratory Effort / Characteristics Non-Labored Spontaneous Respiratory Depth Normal Respiratory Pattern Regular Blood Pressure 136/79 Blood Pressure Mean 98 Blood Pressure Position Sitting Pulse Oximetry 97 95 95 Oxygen Delivery Method Room Air Room Air Sepsis Recent Fever Within 48 Hours No Sepsis New/Unexplained Change in Mental Status N/A Sepsis Action Taken by Nursing No Action Required 06/06/21 11:00 06/06/21 12:00 06/06/21 12:30 Temperature Temperature Source Pulse Rate 88 85 89 Pulse Rate from SpO2 Sensor 88 86 89 Respiratory Rate 24 22 17 Respiratory Effort / Characteristics Respiratory Depth Respiratory Pattern Blood Pressure 147/86 H 175/102 H 147/85 H Blood Pressure Mean 106 126 105 Blood Pressure Position Pulse Oximetry 94 95 93 Oxygen Delivery Method Sepsis Recent Fever Within 48 Hours Sepsis New/Unexplained Change in Mental Status Sepsis Action Taken by Nursing 06/06/21 13:00 Temperature Temperature Source Pulse Rate 80 Pulse Rate from SpO2 Sensor 80 Respiratory Rate 18 Respiratory Effort / Characteristics Respiratory Depth Respiratory Pattern Blood Pressure 146/89 H Blood Pressure Mean 108 Blood Pressure Position Pulse Oximetry 95 Oxygen Delivery Method Sepsis Recent Fever Within 48 Hours Sepsis New/Unexplained Change in Mental Status Sepsis Action Taken by Long Term Medications Current Medication List: was personally reviewed by me Laboratory Data Attestation: I reviewed the patient's lab results. Result diagrams: 06/06/21 10:40 06/06/21 10:40 Lab Results 06/06/21 06/06/21 06/06/21 Range/Units 10:40 10:40 10:40 WBC 8.44 (4.8-10.8) K/uL RBC 4.27 L (4.7-6.1) M/uL Hgb 15.0 (14.0-18.0) g/dL Hct 41.9 L (42-52) % MCV 98.1 (80-100) fL MCH 35.1 H (25-34) pg MCHC 35.8 (32-36) g/dL RDW Std Deviation 53.7 H (36.4-46.3) fL RDW Coeff of Fabiola 14.8 H (11.5-14.5) % Plt Count 84 L (130-400) K/uL MPV 12.3 H (7.4-10.4) fL Immature Gran % (Auto) 0.1 % Neut % (Auto) 56.3 % Lymph % (Auto) 21.0 % [place] % (Auto) 13.6 % Eos % (Auto) 7.9 % Baso % (Auto) 1.1 % Neut # (Auto) 4.75 (1.4-6.5) K/uL Lymph # (Auto) 1.77 (1.2-3.4) K/uL [place] # (Auto) 1.15 H (0.11-0.59) K/uL Eos # (Auto) 0.67 H (0-0.5) K/uL Baso # (Auto) 0.09 (0-0.2) K/uL Immature Gran # (Auto) 0.01 (0.00-0.02) K/uL Platelet Estimate Decreased L (Normal) Sodium 140 (136-145) mmol/L Potassium 3.4 L (3.5-5.1) mmol/L Chloride 112 H (98-107) mmol/L Carbon Dioxide 22 (21-32) mmol/L Anion Gap 6 (3-11) BUN 9 (6-23) mg/dl Creatinine 0.72 (0.6-1.4) mg/dl Est Cr Clr Drug Dosing 98.2 ml/min Est GFR ( Amer) 120.9 ml/min Est GFR (Non-Af Amer) 104.3 ml/min BUN/Creatinine Ratio 12.5 (10-20) Glucose 134 H (70-99(Fasting)) mg/dl Calcium 8.6 (8.5-10.1) mg/dl Total Bilirubin 1.8 H (0.2-1.0) mg/dl AST 87 H (13-39) U/L ALT 61 H (7-52) U/L Alkaline Phosphatase 103 (34-104) U/L Troponin I < 0.03 (0-0.04) ng/ml Total Protein 6.5 (6.0-8.3) gm/dl Albumin 3.3 L (3.4-5.0) gm/dl Globulin 3.2 (2.5-4.0) gm/dl Albumin/Globulin Ratio 1.0 (0.9-2) Lipase 40 (11-82) U/L Urine Color [place] Urine Appearance Clear (Clear) Urine pH 6.0 (4.5-7.5) Ur Specific [place] 1.026 (1.000-1.030) Urine Protein 2+ H (Negative) Urine Glucose (UA) Negative (Negative) Urine Ketones Trace H (Negative) Urine Blood 1+ H (Negative) Urine Nitrite Positive A (Negative) Urine Bilirubin 2+ H (Negative) Urine Urobilinogen Positive H (Negative) Ur Leukocyte Esterase 1+ H (Negative) Urine WBC (Auto) 1-5 (0-5) /hpf Urine RBC (Auto) 10-30 H (0-4) /hpf U Hyaline Cast (Auto) 1-5 (0-5) /lpf U Epithel Cells (Auto) 20-30 H (0-5) /lpf Urine Bacteria (Auto) 1+ H (Negative) Urine Mucus Present A (None Prsent) Administered Medications Discontinued Medications Fentanyl Citrate (Fentanyl Citrate 100 Mcg/2 Ml Vial) 50 mcg IV NOW STA Stop: 06/06/21 11:52 Last Admin: 06/06/21 11:56 Dose: 50 mcg Documented by: [id number] Sodium Chloride (Nss 1000ml) 1,000 mls @ 999 mls/hr IV .Q1H1M STA Stop: 06/06/21 11:37 Last Infusion: 06/06/21 12:41 Dose: 0 mls/hr Documented by: [id number] Admin: 06/06/21 10:46 Dose: 999 mls/hr Documented by: [id number] Piperacillin Sod/Tazobactam Sod (Zosyn) 4.5 gm in 120 mls @ 240 mls/hr IV NOW ONE Stop: 06/06/21 12:08 Last Infusion: 06/06/21 13:01 Dose: 0 mls/hr Documented by: [id number] Admin: 06/06/21 12:25 Dose: 240 mls/hr Documented by: [id number] Ioversol (Optiray 320 100ml) 94 ml IV ONCE ONE Stop: 06/06/21 11:38 Last Admin: 06/06/21 11:37 Dose: 94 ml Documented by: [id number] Morphine Sulfate (Morphine Sulfate 4 Mg/Ml 1 Ml Carp\Vial) 4 mg IV NOW STA Stop: 06/06/21 10:38 Last Admin: 06/06/21 10:47 Dose: 4 mg Documented by: [id number] Ondansetron HCl (Ondansetron Inj 2 Mg/Ml 2 Ml Vial) 4 mg IV NOW STA Stop: 06/06/21 10:38 Last Admin: 06/06/21 10:47 Dose: 4 mg Documented by: [id number] Imaging Data Radiologist's Impression: Abdomen/Pelvis CT 06/06/21 10:37 CT abd pelvis IV con only CLINICAL HISTORY: LLQ pain, mild diffuse pain, bloody stool COMPARISON STUDY: 02/27/2019 CT DOSE: 577.25 mGy.cm TECHNIQUE: Standard CT of the Abdomen and Pelvis was performed with IV contrast. A dose lowering technique was utilized adhering to the principles of ALARA. Contrast Volume: Optiray 320, 94 ml. The patient did not receive oral contrast. FINDINGS: Lung base: The lung bases are clear. Abdominal cavity: There is no evidence for abdominal mass, adenopathy or ascites. Liver: There is homogeneous attenuation of the liver parenchyma. There is no evidence for enhancing mass lesion. Multiple subcentimeter hepatic cysts are again seen. Spleen: There is homogeneous attenuation of the splenic parenchyma. There is no enhancing mass lesion. Pancreas: There is homogeneous attenuation of the pancreatic parenchyma. There is no evidence for mass lesion or peripancreatic fluid collection. Gall Bladder: Surgical clips are present. Adrenal glands: The adrenal glands are normal in size and attenuation. There is no evidence for enhancing mass lesion. Kidneys: There is homogeneous attenuation of the renal parenchyma bilaterally. There is no evidence for renal calculus or hydronephrosis. There is no evidence for enhancing mass. Bowel: The bowel loops are normally placed within the abdomen and pelvis without evidence for dilatation or obstruction. There is no evidence for mass lesion. There are no inflammatory changes present. There is no evidence for free air. The appendix is absent. Bladder: The bladder is within normal limits with no evidence for focal mass, calculus or diverticulum. : There is no evidence for pelvic mass or adenopathy. There is no evidence for pelvic ascites. Vasculature: Compared to the previous study, there is significant increase mesenteric perfusion with dilated mesenteric vessels seen throughout the mid abdomen and particularly in the right side of the abdomen and surrounding the liver. The etiology of this finding is uncertain. In a patient with a GI bleed, consider radionuclide red blood cell study for further evaluation. Osseous structures: There is no acute osseous pathology. IMPRESSION: 1. No acute intra-abdominal or pelvic abnormality. 2. However, there has been interval development of significant increased mesenteric vascular arterial perfusion with dilated mesenteric artery seen throughout the mid abdomen and particularly in the right side of the abdomen, surrounding the liver. Etiology of these findings is uncertain. The patient with a history of GI bleeding, radionuclide red blood cell study may be helpful for further evaluation. ACT 112: Negative or not required by law. Electronically signed by: Deuce Proctor M.D. 06/06/2021 12:07 PM Liver Ultrasound 06/06/21 12:52 US liver LIMITED ABDOMEN CLINICAL HISTORY: transaminitis. COMPARISON: 05/23/[address] of the abdomen and pelvis from 06/06/2021 TECHNIQUE: Multiple grayscale and color images of the right upper quadrant of the abdomen. FINDINGS: The study is limited by overlying bowel gas. Pancreas: The pancreas is obscured by bowel gas but was well seen on the CT scan. Liver: The liver is homogeneous in echogenicity There is no evidence for a focal mass. There is no intrahepatic biliary duct dilatation. Is within normal limits of size measuring 16.2 cm in greatest length. Subcentimeter hepatic cysts seen on CT are not identified by ultrasound. Gallbladder: Surgically absent Common Bile Duct: (CBD): It is normal in size measuring millimeter Inferior Vena Cava (IVC): The imaged IVC is patent. Right kidney: There is no evidence for hydronephrosis, calculus or gross renal mass. The kidney is normal in size. IMPRESSION: 1. Limited examination due to overlying bowel gas. 2. Negative ultrasound of the liver. ACT 112: Negative or not required by law. Electronically signed by: Deuce Proctor M.D. 06/06/2021 1:36 PM Discharge Plan Visit Data Chief Complaint: Abdominal Pain Stated Complaint: LEFT LOWER ABD PAIN ED Provider: Eris Cooper Discharge Problem: Elevated LFTs, Abdominal pain, Bloody stools, Acute UTI, Thrombocytopenia Forms Stand Alone Forms: Vittana Prescriptions Prescriptions: No Action atorvastatin 20 mg Tablet 20 mg PO HS RF: 0 pantoprazole 40 mg Tablet,Delayed Release (Dr/Ec) 40 mg PO QAM RF: 0 hydrochlorothiazide 25 mg tablet 25 mg PO QAM RF: 0 prednisone 20 mg tablet 20 - 40 mg PO UD PRN (Reason: swelling) RF: 0 Referrals Referrals: Toby Paz MD [Primary Care Provider] -
[2021-06-06] MEDS ORDERED: SODIUM CHLORIDE 0.9% 1000ML 1,000 ML IV STA (10:37)
[2021-06-06] MEDS ORDERED: MoRPHine SULFATE 4 MG/ML 1 ML CARP\\VIAL IV STA (10:37)
[2021-06-06] MEDS ORDERED: ONDANSETRON INJ 2 MG/ML 2 ML VIAL IV STA (10:37)
[2021-06-06 10:53] LABS: Appearance Urine Clear (Clear); Blood Urine 1+ (Negative); Color Urine Orange; Epithelial Cell Urine Auto 20-30 /lpf (0-5); Glucose Urine UA Negative (Negative); Ketones Urine Trace (Negative); Leukocyte Esterase Urine 1+ (Negative); Nitrite Urine Positive (Negative); Protein Urine 2+ (Negative); Specific Gravity Urine 1.026 (1.000-1.030); Urobilinogen Urine Positive (Negative)
[2021-06-06 10:55] LABS: Bilirubin Urine 2+ (Negative)
[2021-06-06 11:01] LABS: Mucus Urine Present (None Prsent)
[2021-06-06 11:02] LABS: Bacteria Urine Automated 1+ (Negative)
[2021-06-06 11:10] LABS: Alanine Aminotransferase 61 U/L (7-52); Albumin Level 3.3 gm/dl (3.4-5.0); Alkaline Phosphatase 103 U/L (34-104); Anion Gap 6 (3-11); Aspartate Aminotransferase 87 U/L (13-39); BUN Creatinine Ratio 12.5 (10-20); Bilirubin,Total 1.8 mg/dl (0.2-1.0); Blood Urea Nitrogen 9 mg/dl (6-23); Calcium 8.6 mg/dl (8.5-10.1); Carbon Dioxide 22 mmol/L (21-32); Chloride 112 mmol/L (98-107); Creatinine Clr Calc Pharmacy 98.2 ml/min; Est GFR (African American) 120.9 ml/min; Est GFR (Non-African American) 104.3 ml/min; Globulin 3.2 gm/dl (2.5-4.0); Glucose 134 mg/dl (70-99(Fasting)); Lipase 40 U/L (11-82); Potassium 3.4 mmol/L (3.5-5.1); Sodium 140 mmol/L (136-145); Total Protein 6.5 gm/dl (6.0-8.3)
[2021-06-06 11:11] LABS: Troponin I < 0.03 ng/ml (0-0.04)
[2021-06-06 11:16] LABS: Hematocrit (blood only) 41.9 % (42-52); Mean Corpuscular Hemoglobin 35.1 pg (25-34); Mean Corpuscular Hgb Conc 35.8 g/dL (32-36); Mean Corpuscular Volume 98.1 fL (80-100); Mean Platelet Volume 12.3 fL (7.4-10.4); Platelet Count 84 K/uL (130-400); RDW Coefficient of Variation 14.8 % (11.5-14.5); RDW Standard Deviation 53.7 fL (36.4-46.3); Red Blood Count 4.27 M/uL (4.7-6.1); White Blood Count 8.44 K/uL (4.8-10.8)
[2021-06-06 11:17] LABS: Basophils # (auto) 0.09 K/uL (0-0.2); Basophils % (auto) 1.1 %; Eosinophils # (auto) 0.67 K/uL (0-0.5); Eosinophils % (auto) 7.9 %; Immature Granulocytes # (auto) 0.01 K/uL (0.00-0.02); Immature Granulocytes % (auto) 0.1 %; Lymphocytes # (auto) 1.77 K/uL (1.2-3.4); Monocytes # (auto) 1.15 K/uL (0.11-0.59); Monocytes % (auto) 13.6 %; Neutrophils # (auto) 4.75 K/uL (1.4-6.5); Neutrophils % (auto) 56.3 %; Platelet Estimate Decreased (Normal)
[2021-06-06] MEDS ORDERED: OPTIRAY 320 100ml IV ONE (11:37)
[2021-06-06] MEDS ORDERED: PIPERACILL/TAZOBAC CONSULT ACTIVE PRN (11:39)
[2021-06-06] MEDS ORDERED: PIPERACILLIN/TAZOBACTAM 4.5 GM/120 ML BAG IV ONE (11:39)
[2021-06-06] MEDS ORDERED: fentaNYL citrate 100 MCG/2 ML VIAL IV STA ×2 (11:51→14:28)
--- NOTE | 2021-06-06 12:08 | CT Scan Report ---
CT abd pelvis IV con only CLINICAL HISTORY: LLQ pain, mild diffuse pain, bloody stool COMPARISON STUDY: 02/27/2019 CT DOSE: 577.25 mGy.cm TECHNIQUE: Standard CT of the Abdomen and Pelvis was performed with IV contrast. A dose lowering rohini hnique was utilized adhering to the principles of ALARA. Contrast Volume: Optiray 320, 94 ml. The patient did not receive oral contrast. FINDINGS: Lung base: The lung bases are clear. Abdominal cavity: There is no evidence for abdominal mass, adenopathy or ascites. Liver: There is homogeneous attenuation of the liver parenchyma. There is no evidence for enhancing m ass lesion. Multiple subcentimeter hepatic cysts are again seen. Spleen: There is homogeneous attenuation of the splenic parenchyma. There is no enhancing mass lesion . Pancreas: There is homogeneous attenuation of the pancreatic parenchyma. There is no evidence for mas s lesion or peripancreatic fluid collection. Gall Bladder: Surgical clips are present. Adrenal glands: The adrenal glands are normal in size and attenuation. There is no evidence for enhan cing mass lesion. Kidneys: There is homogeneous attenuation of the renal parenchyma bilaterally. There is no evidence f or renal calculus or hydronephrosis. There is no evidence for enhancing mass. Bowel: The bowel loops are normally placed within the abdomen and pelvis without evidence for dilatat ion or obstruction. There is no evidence for mass lesion. There are no inflammatory changes present. There is no evidence for free air. The appendix is absent. Bladder: The bladder is within normal limits with no evidence for focal mass, calculus or diverticulu m. : There is no evidence for pelvic mass or adenopathy. There is no evidence for pelvic ascites. Vasculature: Compared to the previous study, there is significant increase mesenteric perfusion with dilated mesenteric vessels seen throughout the mid abdomen and particularly in the right side of the abdomen and surrounding the liver. The etiology of this finding is uncertain. In a patient with a GI bleed, consider radionuclide red blood cell study for further evaluation. Osseous structures: There is no acute osseous pathology. IMPRESSION: 1. No acute intra-abdominal or pelvic abnormality. 2. However, there has been interval development of significant increased mesenteric vascular arterial perfusion with dilated mesenteric artery seen throughout the mid abdomen and particularly in the rig ht side of the abdomen, surrounding the liver. Etiology of these findings is uncertain. The patient w ith a history of GI bleeding, radionuclide red blood cell study may be helpful for further evaluation . ACT 112: Negative or not required by law. Electronically signed by: Deuce Proctor M.D. 06/06/2021 12:07 PM
--- NOTE | 2021-06-06 13:37 | Ultrasound Report ---
US liver LIMITED ABDOMEN CLINICAL HISTORY: transaminitis. COMPARISON: 05/23/[address] of the abdomen and pelvis from 06/06/2021 TECHNIQUE: Multiple grayscale and color images of the right upper quadrant of the abdomen. FINDINGS: The study is limited by overlying bowel gas. Pancreas: The pancreas is obscured by bowel gas but was well seen on the CT scan. Liver: The liver is homogeneous in echogenicity There is no evidence for a focal mass. There is no in trahepatic biliary duct dilatation. Is within normal limits of size measuring 16.2 cm in greatest mihai gt. Subcentimeter hepatic cysts seen on CT are not identified by ultrasound. Gallbladder: Surgically absent Common Bile Duct: (CBD): It is normal in size measuring millimeter Inferior Vena Cava (IVC): The imaged IVC is patent. Right kidney: There is no evidence for hydronephrosis, calculus or gross renal mass. The kidney is n ormal in size. IMPRESSION: 1. Limited examination due to overlying bowel gas. 2. Negative ultrasound of the liver. ACT 112: Negative or not required by law. Electronically signed by: Deuce Proctor M.D. 06/06/2021 1:36 PM
--- NOTE | 2021-06-06 13:58 | History & Physical Report ---
Date of Service June 06, 2021 Assessment & Plan (1) Abdominal pain: Plan: - Admit to med surg - Consult to general surgery - WBC 8.44, afebrile, blood cultures have been obtained, was started on IV zosyn in the ER. Ok to continue for 48 hrs and narrow coverage for UTI. - CT abd/pelvis reviewed : 1. No acute intra-abdominal or pelvic abnormality. 2. However, there has been interval development of significant increased mesenteric vascular arterial perfusion with dilated mesenteric artery seen throughout the mid abdomen and particularly in the right side of the abdomen, surrounding the liver. Etiology of these findings is uncertain. The patient with a history of GI bleeding, radionuclide red blood cell study may be helpful for further evaluation. - Consult GI - Hx of suspected cirrhosis - will add on ammonia level, coags, hepatitis panel - Alcohol use remains moderate-heavy with 12 pack on saturdays - drank 8-9 beers yesterday. Denies dependence or withdrawal hx. AWASS scale ordered - Constipation x 3 days - will treat with lactulose and dulcolax GA x 1 due to significant distension. Abd sounds present in all quadrants, no tinkling to suspect obstruction right now, if worsening pain or distension would get a KUB with surgical hx of appendectomy, cholecystectomy and open bowel resection. - ?GIB - unlikely as with constipation, will follow H&H and start famotidine IV BID for coverage - Cont fluids - NPO except meds - Potassium was replaced in the ER, K+ 3.4 on admission (2) Transaminitis: Plan: - Monitor am LFTs - GI consult as above - Encourage alcohol cessation - Cont IVFs at 100ml/hr (3) Thrombocytopenia: Plan: - Appears pt has previously had thrombocytopenia, will check Lyme and anaplasmosis (4) HTN (hypertension): Plan: - Continue metoprolol and HCTZ as per home medications (5) HLD (hyperlipidemia): Plan: - Cont statin therapy (6) UTI (urinary tract infection): Plan: - UA appears infected, follow culture - on zosyn as above for possible GI involvement will also cover . Can downgrade abx within 48 hrs if abdominal sx improve DVT ppx: - teds, scds CODE: Full code Dispo: From home, likely to remain in the hospital x 1-2 days History of Present Illness Chief Complaint: Abdominal pain Primary Care Provider: Toby Paz MD This is a 55 yo M with PMHx of HTN, HLD, liver cirrhosis, GI bleed, thrombocytopenia, seasonal allergies, migraine, who presents to the ER with abdominal pain in the left lower quadrant associated with nausea and some vomiting is 1 week. He admits to feeling significantly distended and minimal palpation is very painful. Patient notes that he has not had a bowel movement in 3 days however 3 days ago he had dark bowel movement. He denies any bright red blood per rectum. Has been eating and drinking fairly well, denies any worsening postprandial pain. He denies any fevers, chills or sweats. Admits to a 1 to 2 pound weight gain in the past week. His last alcoholic drink was last evening where he consumed 8-9 beers, and states that he actually felt better after drinking this amount of alcohol. His fianceKandace is present with him at bedside and supports the history. He previously has followed with GI as an outpatient with [facility], but has not seen them since last spring he was followed up for suspected liver cirrhosis He is status post cholecystectomy in 2018 and appendectomy in 1977. He had a an open bowel resection done in 2012. Alcohol use: 12 pack every Monday, drank 8-9 beers yesterday. Previously drank much more - 24 case beer on weekends and rum and coke throughout the week. Smoking: Current, smokes 1 to 2 cigarettes/day for whole adult life Allergies Allergy/AdvReac Type Severity Reaction Status Date / Time No Known Drug Allergies Allergy Verified 06/06/21 13:45 Home Medications Medication Instructions Recorded Confirmed Type atorvastatin 20 mg tablet 20 mg PO HS 01/18/18 06/06/21 History hydrochlorothiazide 25 mg tablet 25 mg PO QAM 05/28/18 06/06/21 History pantoprazole 40 mg tablet,delayed 40 mg PO QAM 07/26/18 06/06/21 History release metoprolol succinate 25 mg PO DAILY 06/06/21 06/06/21 History Past Med/Surg History Medical History Abdominal pain GERD (gastroesophageal reflux disease) Hyperlipidemia Hypertension Nausea Surgical History History of appendectomy History of bowel resection 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 History of colonoscopy History of esophagogastroduodenoscopy (EGD) History of tooth extraction Family History Father Hearing loss Hypertension Stroke Heart disease Other No pertinent family history in first degree relatives Denies family history of No family history of adverse response to anesthesia No family history of bleeding disorder Allergies Asthma Social History Smoking Status: Former smoker Tobacco Type: Cigarettes Second Hand Exposure: Yes; Hx Alcohol Use: Yes Alcohol type: beer Hx Substance Use: No Preferred Language: Pashto Communication Ability: Effective 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 Musculoskeletal: No joint pain, calf pain, swelling Neurologic: No weakness, numbness/tingling, or balance problems Psychiatric: No anxiety or depression Skin: No rash or itch Physical Exam Physical Exam: General: awake, alert, mild distress Head: Normocephalic, atraumatic ENT: PERRL, EOMI, no pharyngeal exudate, mucous membranes moist Chest: Clear to auscultation, on room air, no adventitious breath sounds Cardiac: Regular rate and rhythm, no murmur, no JVD, normal peripheral pulses, good capillary refill Abdominal: NABS x 4 quadrants, +distended, +tender to palpation in Left upper and moreso in the Left lower quadrant, no rebound or guarding Extremities: Normal inspection, no peripheral edema or erythema, calfs nontender to palpation Psych: Normal mood and affect Neuro: AAO x 3, strength intact bilaterally and rated 5/5, no motor deficits, speech is clear, no peripheral sensory deficits Results & Data Results & Data ([facility]) Vital Signs (Past 12 Hours) Vital Signs Temp Pulse Resp BP Pulse Ox 06/06/21 13:00 80 18 146/89 H 95 06/06/21 12:30 89 17 147/85 H 93 06/06/21 12:00 85 22 175/102 H 95 06/06/21 11:00 88 24 147/86 H 94 06/06/21 10:55 90 19 95 06/06/21 10:54 95 06/06/21 10:18 37.1 C 78 18 136/79 97 Laboratory Results 06/06/21 12:14 Aerobic Blood Culture - Pending Blood Anaerobic Blood Culture - Pending 06/06/21 12:22 Aerobic Blood Culture - Pending Blood Anaerobic Blood Culture - Pending 06/06/21 10:40 Urine Culture - Pending Urine,Clean Catch 06/06/21 06/06/21 06/06/21 10:40 10:40 10:40 WBC 8.44 RBC 4.27 L Hgb 15.0 Hct 41.9 L MCV 98.1 MCH 35.1 H MCHC 35.8 RDW Std Deviation 53.7 H RDW Coeff of Fabiola 14.8 H Plt Count 84 L MPV 12.3 H Immature Gran % (Auto) 0.1 Neut % (Auto) 56.3 Lymph % (Auto) 21.0 Mclennan % (Auto) 13.6 Eos % (Auto) 7.9 Baso % (Auto) 1.1 Neut # (Auto) 4.75 Lymph # (Auto) 1.77 Mclennan # (Auto) 1.15 H Eos # (Auto) 0.67 H Baso # (Auto) 0.09 Immature Gran # (Auto) 0.01 Platelet Estimate Decreased L Sodium 140 Potassium 3.4 L Chloride 112 H Carbon Dioxide 22 Anion Gap 6 BUN 9 Creatinine 0.72 Est Cr Clr Drug Dosing 98.2 Est GFR ( Amer) 120.9 Est GFR (Non-Af Amer) 104.3 BUN/Creatinine Ratio 12.5 Glucose 134 H Calcium 8.6 Total Bilirubin 1.8 H AST 87 H ALT 61 H Alkaline Phosphatase 103 Troponin I < 0.03 Total Protein 6.5 Albumin 3.3 L Globulin 3.2 Albumin/Globulin Ratio 1.0 Lipase 40 Urine Color Redgranite Urine Appearance Clear Urine pH 6.0 Ur Specific Pioneer 1.026 Urine Protein 2+ H Urine Glucose (UA) Negative Urine Ketones Trace H Urine Blood 1+ H Urine Nitrite Positive A Urine Bilirubin 2+ H Urine Urobilinogen Positive H Ur Leukocyte Esterase 1+ H Urine WBC (Auto) 1-5 Urine RBC (Auto) 10-30 H U Hyaline Cast (Auto) 1-5 U Epithel Cells (Auto) 20-30 H Urine Bacteria (Auto) 1+ H Urine Mucus Present A Diagnostic Findings Abdomen/Pelvis CT 06/06/21 10:37 CT abd pelvis IV con only CLINICAL HISTORY: LLQ pain, mild diffuse pain, bloody stool COMPARISON STUDY: 02/27/2019 CT DOSE: 577.25 mGy.cm TECHNIQUE: Standard CT of the Abdomen and Pelvis was performed with IV contrast. A dose lowering technique was utilized adhering to the principles of ALARA. Contrast Volume: Optiray 320, 94 ml. The patient did not receive oral contrast. FINDINGS: Lung base: The lung bases are clear. Abdominal cavity: There is no evidence for abdominal mass, adenopathy or ascites. Liver: There is homogeneous attenuation of the liver parenchyma. There is no evidence for enhancing mass lesion. Multiple subcentimeter hepatic cysts are again seen. Spleen: There is homogeneous attenuation of the splenic parenchyma. There is no enhancing mass lesion. Pancreas: There is homogeneous attenuation of the pancreatic parenchyma. There is no evidence for mass lesion or peripancreatic fluid collection. Gall Bladder: Surgical clips are present. Adrenal glands: The adrenal glands are normal in size and attenuation. There is no evidence for enhancing mass lesion. Kidneys: There is homogeneous attenuation of the renal parenchyma bilaterally. There is no evidence for renal calculus or hydronephrosis. There is no evidence for enhancing mass. Bowel: The bowel loops are normally placed within the abdomen and pelvis without evidence for dilatation or obstruction. There is no evidence for mass lesion. There are no inflammatory changes present. There is no evidence for free air. The appendix is absent. Bladder: The bladder is within normal limits with no evidence for focal mass, calculus or diverticulum. : There is no evidence for pelvic mass or adenopathy. There is no evidence for pelvic ascites. Vasculature: Compared to the previous study, there is significant increase mesenteric perfusion with dilated mesenteric vessels seen throughout the mid abdomen and particularly in the right side of the abdomen and surrounding the liver. The etiology of this finding is uncertain. In a patient with a GI bleed, consider radionuclide red blood cell study for further evaluation. Osseous structures: There is no acute osseous pathology. IMPRESSION: 1. No acute intra-abdominal or pelvic abnormality. 2. However, there has been interval development of significant increased mesenteric vascular arterial perfusion with dilated mesenteric artery seen throughout the mid abdomen and particularly in the right side of the abdomen, surrounding the liver. Etiology of these findings is uncertain. The patient with a history of GI bleeding, radionuclide red blood cell study may be helpful for further evaluation. ACT 112: Negative or not required by law. Electronically signed by: Deuce Proctor M.D. 06/06/2021 12:07 PM Liver Ultrasound 06/06/21 12:52 US liver LIMITED ABDOMEN CLINICAL HISTORY: transaminitis. COMPARISON: 05/23/[address] of the abdomen and pelvis from 06/06/2021 TECHNIQUE: Multiple grayscale and color images of the right upper quadrant of the abdomen. FINDINGS: The study is limited by overlying bowel gas. Pancreas: The pancreas is obscured by bowel gas but was well seen on the CT scan. Liver: The liver is homogeneous in echogenicity There is no evidence for a focal mass. There is no intrahepatic biliary duct dilatation. Is within normal limits of size measuring 16.2 cm in greatest length. Subcentimeter hepatic cysts seen on CT are not identified by ultrasound. Gallbladder: Surgically absent Common Bile Duct: (CBD): It is normal in size measuring millimeter Inferior Vena Cava (IVC): The imaged IVC is patent. Right kidney: There is no evidence for hydronephrosis, calculus or gross renal mass. The kidney is normal in size. IMPRESSION: 1. Limited examination due to overlying bowel gas. 2. Negative ultrasound of the liver. ACT 112: Negative or not required by law. Electronically signed by: Deuce Proctor M.D. 06/06/2021 1:36 PM Code Status & VTE Plan Code Status Full -discussed with the patient at bedside
[2021-06-06] MEDS ORDERED: POTASSIUM CHLORIDE CRTAB 20 MEQ TABCR PO STA (14:13)
[2021-06-06] MEDS ORDERED: LACTULOSE SYRUP 30 GM/45 ML UDP PO STA (14:55)
[2021-06-06] MEDS ORDERED: MoRPHine SULFATE 4 MG/ML 1 ML CARP\\VIAL IV PRN (14:55)
[2021-06-06] MEDS ORDERED: bisacodyL 10 MG SUPP PR STA (14:55)
[2021-06-06] MEDS ORDERED: SODIUM CHLORIDE 0.9% 1000ML 1,000 ML IV SCH (15:30)
[2021-06-06 16:58] LABS: Lyme Ab IgG w/WB Rflx Negative (Negative)
[2021-06-06 17:01] LABS: Lyme Ab IgM w/WB Rflx Positive (Negative)
[2021-06-06] MEDS ORDERED: ONDANSETRON INJ 2 MG/ML 2 ML VIAL IV PRN (17:28)
[2021-06-06] MEDS ORDERED: ACETAMINOPHEN 325 MG TAB PO PRN (17:28)
[2021-06-06] MEDS: PIPERACILLIN/TAZOBACTAM 3.375 GM in DEXTROSE 5% 100 ML IV SCH (18:17)
--- NOTE | 2021-06-06 18:17 | Surgery Consultation ---
Date of Consultation June 06, 2021 Assessment & Plan (1) Cirrhosis of liver: I do not see any specific surgical problem which would require any intervention I do believe he has significant enlargement of the vasculature especially within the abdomen concerning his mesentery and perihepatic vessels I would be very concerned that he has severe varices GI evaluation would be appropriate Patient in my view is not a candidate for any surgical intervention In this hospital because of his severe liver disease and thrombocytopenia Please call with any other concerns History of Present Illness Attending Physician: Billy Mock MD History of Present Illness 55-year-old male who complains of left lower quadrant pain which appears to be more abdominal wall sensitivity He has significant cirrhosis with thrombocytopenia His CT scan shows severe vascular dilatation and tortuosity especially within the mesentery and near the liver Concerning for severe varices There is no other significant abnormality noted within the abdomen as far as his bowel is concerned His white blood cell count is 8.4 Allergies Allergy/AdvReac Type Severity Reaction Status Date / Time No Known Drug Allergies Allergy Verified 06/06/21 13:45 Home Medications Medication Instructions Recorded Confirmed Type atorvastatin 20 mg tablet 20 mg PO HS 01/18/18 06/06/21 History hydrochlorothiazide 25 mg tablet 25 mg PO QAM 05/28/18 06/06/21 History pantoprazole 40 mg tablet,delayed 40 mg PO QAM 07/26/18 06/06/21 History release metoprolol succinate 25 mg PO DAILY 06/06/21 06/06/21 History Patient History Medical History Abdominal pain GERD (gastroesophageal reflux disease) Hyperlipidemia Hypertension Nausea Surgical History History of appendectomy History of bowel resection 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 History of colonoscopy History of esophagogastroduodenoscopy (EGD) History of tooth extraction Family History Father Hearing loss Hypertension Stroke Heart disease Other No pertinent family history in first degree relatives Denies family history of No family history of adverse response to anesthesia No family history of bleeding disorder Allergies Asthma Social History Smoking Status: Current every day smoker Tobacco Type: Cigarettes Cigarettes Per Day: 1-2; Second Hand Exposure: Yes; Hx Alcohol Use: Yes Alcohol type: beer Hx Substance Use: No Preferred Language: Luxembourger Communication Ability: Effective Kalsominer Required: No Beliefs That Will Affect Care: None marital status: Single Current Living Situation: Spouse and Family Current Living Situation Comment: LIVES WITH GIRLFRIEND current occupational status: 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 Other Information That Helps Us Care for You: No Feels Safe at Home: Yes Safety Concerns: Feels Safe At This Time Assistive Devices: Glasses Review of Systems Review of Systems: All systems reviewed & are unremarkable except as noted in HPI & below Physical Exam Physical Exam: Patient's vital signs are stable He appears normal in no distress Constitutional: well developed; no acute distress Eyes: + anicteric sclerae Respiratory: normal respiratory effort; no respiratory distress Cardiovascular: Rate/Rhythm: regular rate Gastrointestinal (Abdomen): His abdomen is mildly distended he has some sensitivity in left lower quadrant which appears to be More related to the abdominal wall than intra-abdominal Musculoskeletal: Head/Neck/Chest: head atraumatic Skin: no rashes, warm and dry Neurologic: awake Psychiatric: Orientation: alert Results & Data ([facility]) Vital Signs (Past 12 Hours) Vital Signs Temp Pulse Pulse Resp BP BP Pulse Ox 06/06/21 17:00 36.6 C 74 16 153/69 H 96 06/06/21 16:30 73 20 155/93 H 97 06/06/21 16:00 73 16 154/91 H 95 06/06/21 15:00 80 17 143/92 H 96 06/06/21 14:30 77 20 174/103 H 96 06/06/21 14:00 79 19 154/91 H 96 06/06/21 13:30 74 16 160/105 H 97 06/06/21 13:00 80 18 146/89 H 95 06/06/21 12:30 89 17 147/85 H 93 06/06/21 12:00 85 22 175/102 H 95 06/06/21 11:00 88 24 147/86 H 94 06/06/21 10:55 90 19 95 06/06/21 10:54 95 06/06/21 10:18 37.1 C 78 18 136/79 97 Laboratory Results I reviewed his laboratories Diagnostic Findings I reviewed his CAT scan and ultrasound of the liver PG Care Time/CCT Total # of Minutes Spent Total Time Spent with Patient: Total time spent is greater than 50% in coordination of care (as documented) at patient's floor/unit and/or counseling patient: Coding Level of Care Code 33662 Inpt Consult Level 4 Diagnoses Cirrhosis of liver K74.60
[2021-06-06 18:18] LABS: Hematocrit (blood only) 43.7 % (42-52); Hemoglobin 15.5 g/dL (14.0-18.0)
[2021-06-06] MEDS: D5NSS + 20MEQ KCL 20 MEQ/1,000 ML BAG IV SCH (19:23)
[2021-06-06] MEDS: PANTOprazole 40 MG in SYRINGE 0 ML IV SCH (20:16)
[2021-06-06] MEDS: IPRATROPIUM BROMIDE NASAL SPRAY 0.06% 15ML NAE SCH (20:16)
[2021-06-06] MEDS: MoRPHine SULFATE 4 MG/ML 1 ML CARP\\VIAL IV PRN (20:36)
[2021-06-06] MEDS ORDERED: ATORVASTATIN 20 MG TAB PO SCH (21:00)
[2021-06-06] MEDS ORDERED: FAMOTIDINE 20 MG in SYRINGE 3 ML IV SCH (21:00)
[2021-06-06 23:44] LABS: Hematocrit (blood only) 41.1 % (42-52); Hemoglobin 14.1 g/dL (14.0-18.0)
[2021-06-07] MEDS: PIPERACILLIN/TAZOBACTAM 3.375 GM in DEXTROSE 5% 100 ML IV SCH ×2 (01:45→09:03)
[2021-06-07] MEDS: MoRPHine SULFATE 4 MG/ML 1 ML CARP\\VIAL IV PRN (03:20)
[2021-06-07] MEDS ORDERED: LORazepam 2 MG/1 ML VIAL IV PRN ×3 (06:01)
[2021-06-07] MEDS ORDERED: ATIVAN IV ALCOHOL WITHDRAWL IV PRN (06:01)
--- NOTE | 2021-06-07 06:59 | Electrocardiogram Report ---
Test Reason : Blood Pressure : / mmHG Vent. Rate : 092 BPM Atrial Rate : 092 BPM P-R Int : 146 ms QRS Dur : 082 ms QT Int : 386 ms P-R-T Axes : 038 012 024 degrees QTc Int : 477 ms Normal sinus rhythm Normal ECG When compared with ECG of 27-AUG-2019 22:06, No significant change was found Confirmed by Art Washburn ([id number]) on 06/07/2021 6:59:10 AM Referred By: REFERRED SELF Confirmed By:Art Washburn
[2021-06-07 07:01] LABS: Albumin Level 2.9 gm/dl (3.4-5.0); BUN Creatinine Ratio 13.2 (10-20); Bilirubin Direct 0.4 mg/dl (0-0.2); Bilirubin,Total 1.8 mg/dl (0.2-1.0); Calcium 7.1 mg/dl (8.5-10.1); Creatinine Clr Calc Pharmacy 120.7 ml/min; Est GFR (African American) 118.2 ml/min; Globulin 2.9 gm/dl (2.5-4.0); Hematocrit (blood only) 38.3 % (42-52); Hemoglobin 13.3 g/dL (14.0-18.0); Mean Corpuscular Hemoglobin 34.8 pg (25-34); Mean Corpuscular Hgb Conc 34.7 g/dL (32-36); Mean Corpuscular Volume 100.3 fL (80-100); Mean Platelet Volume 12.3 fL (7.4-10.4); Platelet Count 73 K/uL (130-400); Platelet Estimate Decreased (Normal); Potassium 3.6 mmol/L (3.5-5.1); RDW Standard Deviation 55.2 fL (36.4-46.3); Red Blood Count 3.82 M/uL (4.7-6.1); Total Protein 5.8 gm/dl (6.0-8.3); White Blood Count 7.72 K/uL (4.8-10.8)
[2021-06-07 07:17] LABS: INR 1.3 (0.9-1.1); Prothrombin Time 13.5 Seconds (9.0-12.0)
[2021-06-07] MEDS: D5NSS + 20MEQ KCL 20 MEQ/1,000 ML BAG IV SCH (07:41)
[2021-06-07] MEDS: PANTOprazole 40 MG in SYRINGE 0 ML IV SCH (07:42)
[2021-06-07] MEDS: IPRATROPIUM BROMIDE NASAL SPRAY 0.06% 15ML NAE SCH (07:45)
[2021-06-07 08:51] LABS: Hepatitis B Surf Ag Rflx Conf Neg (Neg)
[2021-06-07] MEDS ORDERED: diphenhydrAMINE Capsule 25 MG CAP PO PRN (08:53)
[2021-06-07] MEDS ORDERED: PANTOprazole 40 MG TAB PO SCH (09:00)
[2021-06-07] MEDS ORDERED: FOLIC ACID 400 MCG TAB PO SCH (09:00)
[2021-06-07] MEDS ORDERED: THIAMINE HCL 100 MG TAB PO SCH (09:00)
[2021-06-07] MEDS ORDERED: MULTIVITAMIN TAB PO SCH (09:00)
[2021-06-07] MEDS ORDERED: METOPROLOL SUCC 25MG EXT REL TAB PO SCH (09:00)
[2021-06-07] MEDS ORDERED: hydroCHLOROthiazide 25 MG TAB PO SCH (09:00)
[2021-06-07 09:20] LABS: Hepatitis C IgG 13Yrs+Old_Rflx Neg (Neg)
--- NOTE | 2021-06-07 10:35 | Gastrointestinal Consultation ---
Date of Consultation June 07, 2021 Assessment & Plan (1) Abdominal pain: (2) Cirrhosis of liver: (3) UTI (urinary tract infection): 55-year-old male with history of cirrhosis, EtOH use, colonic polyps, presented with abdominal pain which is now resolved after having a large BM. He feels well. CT imaging with dilated mesenteric vessels of unknown etiology. EGD last year w/ no varices. His MELD is slightly higher than last year. With regard to his cirrhosis he appears well compensated. No evidence for acute GI bleeding, ascites or HE. On exam abd soft, nontender, he's resting comfortably in bed; states he's hungry. - Recommend hepatic duplex to evaluate CT findings; this can be done as OP - He can diet as tolerated - As he tends towards constipation recommend consider OP bowel regimen with Miralax daily + stool softener. - Recommend OP f/u with GI for history of cirrhosis - Avoid ETOH, Tylenol > 2 gm daily, and other hepatotoxins Thank you for allowing us to participate in the care of this patient. Please call with any acute changes, questions or concerns. Please see addendum below with additional recommendation from my supervising physician. Supervising Physician Co-Signing Physician Notes I have seen and examined the patient with Elda Quiroz PA-C whose note reflects our findings and plan. Will need further outpatient work up of the CT findings with CTA or duplex US. Will arrange outpatient follow up with his prior Gi provider. Bowel regimen. History of Present Illness Reason for Consultation: liver cirrhosis, transaminitis, abd pain Requesting Physician: Coral Chase PA-C Attending Physician: Billy Mock MD History of Present Illness Patient is a 55-year-old male with PMH HTN, HLD, migraine, EtOH use, colon polyps, suspected cirrhosis on previous imaging, who presented to the hospital with left lower quadrant abdominal pain, constipation with some nausea and vomiting x1 week. He had not had a BM in several days. On arrival, CT w/o acute findings, however note was made of increased mesenteric vascular arterial perfusion with dilated mesenteric artery in the mid abdomen in particular in the right abdomen, surrounding the liver. Hgb 14, WBC 7, PLT 73, INR 1.3 (previously 1.1), transaminases better than baseline, mildly elevated, tbili 1.8, Dili 0.4, BUn 10. Surgery was consulted for his CT findings and felt that surgery was not indicated. He is s/p cholecystectomy. UA w/ possible UTI, is on ABX. Patient was given Lactulose and Dulcolax and had a large bowel movement which was liquid brown, not melanotic, no hematochezia. He states he feels much better today. No abdominal pain, nausea vomiting, hematemesis. He tells me he tends toward constipation, has BM every 3-4 days. He does take daily PPI for GERD and this seems to work well. No fevers or chills, jaundice, confusion, icterus, leg edema, CP, S OB, cough. Rare NSAID use, no Tylenol use. Last EtOH use was evening prior to arrival, drank > 6 beers. Typically drinks approximately 6-8 beers on the weekends. Was drinking heavier in the past. Saw GI as a OP for cirrhosis; last seen 1 year ago. MELD is 12 (was 7 last year). Last EGD 07/2020: - Small hiatal hernia. - Normal stomach. - Normal examined duodenum. - No specimens collected. Colonoscopy 2019: - The examined portion of the ileum was normal. - One 2 mm polyp in the sigmoid colon, removed with a jumbo cold forceps. Resected and retrieved. - Two 3 to 4 mm polyps in the descending colon, removed with a cold snare. Resected and retrieved. - Diverticulosis in the sigmoid colon. - Internal hemorrhoids. - The examination was otherwise normal on direct and retroflexion views. Allergies Allergy/AdvReac Type Severity Reaction Status Date / Time No Known Drug Allergies Allergy Verified 06/06/21 13:45 Home Medications Medication Instructions Recorded Confirmed Type atorvastatin 20 mg tablet 20 mg PO HS 01/18/18 06/06/21 History hydrochlorothiazide 25 mg tablet 25 mg PO QAM 05/28/18 06/06/21 History pantoprazole 40 mg tablet,delayed 40 mg PO QAM 07/26/18 06/06/21 History release metoprolol succinate 25 mg PO DAILY 06/06/21 06/06/21 History Patient History Medical History Abdominal pain GERD (gastroesophageal reflux disease) Hyperlipidemia Hypertension Nausea Surgical History History of appendectomy History of bowel resection 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 History of colonoscopy History of esophagogastroduodenoscopy (EGD) History of tooth extraction Family History Father Hearing loss Hypertension Stroke Heart disease Other No pertinent family history in first degree relatives Denies family history of No family history of adverse response to anesthesia No family history of bleeding disorder Allergies Asthma Social History Smoking Status: Current every day smoker Tobacco Type: Cigarettes Cigarettes Per Day: 1-2; Second Hand Exposure: Yes; Hx Alcohol Use: Yes Alcohol type: beer Hx Substance Use: No Preferred Language: [place] Communication Ability: Effective Metal Filer Required: No Beliefs That Will Affect Care: None marital status: Single Current Living Situation: Spouse and Family Current Living Situation Comment: LIVES WITH GIRLFRIEND current occupational status: 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 Other Information That Helps Us Care for You: No Feels Safe at Home: Yes Safety Concerns: Feels Safe At This Time Assistive Devices: Glasses Review of Systems Review of Systems: All systems reviewed & are unremarkable except as noted in HPI & below Physical Exam Constitutional: WD/WN, vitals as above Eyes: PERRL, conjunctivae normal, anicteric sclerae Neck: trachea midline, no thyromegaly Respiratory: normal respiratory effort, lungs clear to auscultation Cardiovascular: RRR, no murmur, no edema Gastrointestinal (Abdomen): Soft, nontender, perhaps mildly distended, obese, BS x 4 quadrants Skin: no rashes, warm and dry Neurologic: No asterixis Psychiatric: A+Ox3, euthymic affect Results & Data ([facility]) Vital Signs (Past 12 Hours) Vital Signs Temp Pulse Resp BP Pulse Ox 06/07/21 07:44 36.8 C 82 16 120/74 94 Laboratory Results 06/07/21 06/07/21 06/07/21 Range/Units 05:55 05:55 05:55 WBC (4.8-10.8) K/uL RBC (4.7-6.1) M/uL Hgb (14.0-18.0) g/dL Hct (42-52) % MCV (80-100) fL MCH (25-34) pg MCHC (32-36) g/dL RDW Std Deviation (36.4-46.3) fL RDW Coeff of Fabiola (11.5-14.5) % Plt Count (130-400) K/uL MPV (7.4-10.4) fL Immature Gran % (Auto) % Neut % (Auto) % Lymph % (Auto) % [place] % (Auto) % Eos % (Auto) % Baso % (Auto) % Neut # (Auto) (1.4-6.5) K/uL Lymph # (Auto) (1.2-3.4) K/uL [place] # (Auto) (0.11-0.59) K/uL Eos # (Auto) (0-0.5) K/uL Baso # (Auto) (0-0.2) K/uL Immature Gran # (Auto) (0.00-0.02) K/uL Platelet Estimate (Normal) PT 13.5 H (9.0-12.0) Seconds INR 1.3 H (0.9-1.1) Sodium 140 (136-145) mmol/L Potassium 3.6 (3.5-5.1) mmol/L Chloride 114 H (98-107) mmol/L Carbon Dioxide 22 (21-32) mmol/L Anion Gap 4 (3-11) BUN 10 (6-23) mg/dl Creatinine 0.76 (0.6-1.4) mg/dl Est Cr Clr Drug Dosing 120.7 ml/min Est GFR ( Amer) 118.2 ml/min Est GFR (Non-Af Amer) 102.0 ml/min BUN/Creatinine Ratio 13.2 (10-20) Glucose 97 (70-99(Fasting)) mg/dl Calcium 7.1 L (8.5-10.1) mg/dl Magnesium (1.7-2.4) mg/dl Total Bilirubin 1.8 H (0.2-1.0) mg/dl Direct Bilirubin 0.4 H (0-0.2) mg/dl AST 69 H (13-39) U/L ALT 48 (7-52) U/L Alkaline Phosphatase 86 (34-104) U/L Ammonia (18-72) umol/L Troponin I (0-0.04) ng/ml Total Protein 5.8 L (6.0-8.3) gm/dl Albumin 2.9 L (3.4-5.0) gm/dl Globulin 2.9 (2.5-4.0) gm/dl Albumin/Globulin Ratio 1.0 (0.9-2) Lipase (11-82) U/L Urine Color Urine Appearance (Clear) Urine pH (4.5-7.5) Ur Specific [place] (1.000-1.030) Urine Protein (Negative) Urine Glucose (UA) (Negative) Urine Ketones (Negative) Urine Blood (Negative) Urine Nitrite (Negative) Urine Bilirubin (Negative) Urine Urobilinogen (Negative) Ur Leukocyte Esterase (Negative) Urine WBC (Auto) (0-5) /hpf Urine RBC (Auto) (0-4) /hpf U Hyaline Cast (Auto) (0-5) /lpf U Epithel Cells (Auto) (0-5) /lpf Urine Bacteria (Auto) (Negative) Urine Mucus (None Prsent) A. phagocytophilum DNA Lyme Disease IgG Ab (Negative) Lyme IgG (Western Blot) Lyme IgG 18 kDa Band Lyme IgG 23 kDa Band Lyme IgG 28 kDa Band Lyme IgG 30 kDa Band Lyme IgG 39 kDa Band Lyme IgG 41 kDa Band Lyme IgG 45 kDa Band Lyme IgG 58 kDa Band Lyme IgG 66 kDa Band Lyme IgG 93 kDa Band Lyme IgM Ab (WB) Lyme Disease IgM Ab (Negative) Lyme IgM 23 kDa Band Lyme IgM 39 kDa Band Lyme IgM 41 kDa Band Hepatitis A IgM Ab Hep Bs Antigen (Neg) Hep B Core IgM Ab Hepatitis C Ab Screen Neg (Neg) Hepatitis C Antibody (Neg) SARS-CoV-2, RNA, NAAT (NEGATIVE) 06/07/21 06/06/21 06/06/21 Range/Units 05:55 23:27 18:03 WBC 7.72 (4.8-10.8) K/uL RBC 3.82 L (4.7-6.1) M/uL Hgb 13.3 L 14.1 15.5 (14.0-18.0) g/dL Hct 38.3 L 41.1 L 43.7 (42-52) % MCV 100.3 H (80-100) fL MCH 34.8 H (25-34) pg MCHC 34.7 (32-36) g/dL RDW Std Deviation 55.2 H (36.4-46.3) fL RDW Coeff of Fabiola 15.0 H (11.5-14.5) % Plt Count 73 L (130-400) K/uL MPV 12.3 H (7.4-10.4) fL Immature Gran % (Auto) % Neut % (Auto) % Lymph % (Auto) % [place] % (Auto) % Eos % (Auto) % Baso % (Auto) % Neut # (Auto) (1.4-6.5) K/uL Lymph # (Auto) (1.2-3.4) K/uL [place] # (Auto) (0.11-0.59) K/uL Eos # (Auto) (0-0.5) K/uL Baso # (Auto) (0-0.2) K/uL Immature Gran # (Auto) (0.00-0.02) K/uL Platelet Estimate Decreased L (Normal) PT (9.0-12.0) Seconds INR (0.9-1.1) Sodium (136-145) mmol/L Potassium (3.5-5.1) mmol/L Chloride (98-107) mmol/L Carbon Dioxide (21-32) mmol/L Anion Gap (3-11) BUN (6-23) mg/dl Creatinine (0.6-1.4) mg/dl Est Cr Clr Drug Dosing ml/min Est GFR ( Amer) ml/min Est GFR (Non-Af Amer) ml/min BUN/Creatinine Ratio (10-20) Glucose (70-99(Fasting)) mg/dl Calcium (8.5-10.1) mg/dl Magnesium (1.7-2.4) mg/dl Total Bilirubin (0.2-1.0) mg/dl Direct Bilirubin (0-0.2) mg/dl AST (13-39) U/L ALT (7-52) U/L Alkaline Phosphatase (34-104) U/L Ammonia (18-72) umol/L Troponin I (0-0.04) ng/ml Total Protein (6.0-8.3) gm/dl Albumin (3.4-5.0) gm/dl Globulin (2.5-4.0) gm/dl Albumin/Globulin Ratio (0.9-2) Lipase (11-82) U/L Urine Color Urine Appearance (Clear) Urine pH (4.5-7.5) Ur Specific [place] (1.000-1.030) Urine Protein (Negative) Urine Glucose (UA) (Negative) Urine Ketones (Negative) Urine Blood (Negative) Urine Nitrite (Negative) Urine Bilirubin (Negative) Urine Urobilinogen (Negative) Ur Leukocyte Esterase (Negative) Urine WBC (Auto) (0-5) /hpf Urine RBC (Auto) (0-4) /hpf U Hyaline Cast (Auto) (0-5) /lpf U Epithel Cells (Auto) (0-5) /lpf Urine Bacteria (Auto) (Negative) Urine Mucus (None Prsent) A. phagocytophilum DNA Lyme Disease IgG Ab (Negative) Lyme IgG (Western Blot) Lyme IgG 18 kDa Band Lyme IgG 23 kDa Band Lyme IgG 28 kDa Band Lyme IgG 30 kDa Band Lyme IgG 39 kDa Band Lyme IgG 41 kDa Band Lyme IgG 45 kDa Band Lyme IgG 58 kDa Band Lyme IgG 66 kDa Band Lyme IgG 93 kDa Band Lyme IgM Ab (WB) Lyme Disease IgM Ab (Negative) Lyme IgM 23 kDa Band Lyme IgM 39 kDa Band Lyme IgM 41 kDa Band Hepatitis A IgM Ab Hep Bs Antigen (Neg) Hep B Core IgM Ab Hepatitis C Ab Screen (Neg) Hepatitis C Antibody (Neg) SARS-CoV-2, RNA, NAAT (NEGATIVE) 06/06/21 06/06/21 06/06/21 Range/Units 18:03 18:03 18:03 WBC (4.8-10.8) K/uL RBC (4.7-6.1) M/uL Hgb (14.0-18.0) g/dL Hct (42-52) % MCV (80-100) fL MCH (25-34) pg MCHC (32-36) g/dL RDW Std Deviation (36.4-46.3) fL RDW Coeff of Fabiola (11.5-14.5) % Plt Count (130-400) K/uL MPV (7.4-10.4) fL Immature Gran % (Auto) % Neut % (Auto) % Lymph % (Auto) % [place] % (Auto) % Eos % (Auto) % Baso % (Auto) % Neut # (Auto) (1.4-6.5) K/uL Lymph # (Auto) (1.2-3.4) K/uL [place] # (Auto) (0.11-0.59) K/uL Eos # (Auto) (0-0.5) K/uL Baso # (Auto) (0-0.2) K/uL Immature Gran # (Auto) (0.00-0.02) K/uL Platelet Estimate (Normal) PT (9.0-12.0) Seconds INR (0.9-1.1) Sodium (136-145) mmol/L Potassium (3.5-5.1) mmol/L Chloride (98-107) mmol/L Carbon Dioxide (21-32) mmol/L Anion Gap (3-11) BUN (6-23) mg/dl Creatinine (0.6-1.4) mg/dl Est Cr Clr Drug Dosing ml/min Est GFR ( Amer) ml/min Est GFR (Non-Af Amer) ml/min BUN/Creatinine Ratio (10-20) Glucose (70-99(Fasting)) mg/dl Calcium (8.5-10.1) mg/dl Magnesium (1.7-2.4) mg/dl Total Bilirubin (0.2-1.0) mg/dl Direct Bilirubin (0-0.2) mg/dl AST (13-39) U/L ALT (7-52) U/L Alkaline Phosphatase (34-104) U/L Ammonia 84.0 H (18-72) umol/L Troponin I (0-0.04) ng/ml Total Protein (6.0-8.3) gm/dl Albumin (3.4-5.0) gm/dl Globulin (2.5-4.0) gm/dl Albumin/Globulin Ratio (0.9-2) Lipase (11-82) U/L Urine Color Urine Appearance (Clear) Urine pH (4.5-7.5) Ur Specific [place] (1.000-1.030) Urine Protein (Negative) Urine Glucose (UA) (Negative) Urine Ketones (Negative) Urine Blood (Negative) Urine Nitrite (Negative) Urine Bilirubin (Negative) Urine Urobilinogen (Negative) Ur Leukocyte Esterase (Negative) Urine WBC (Auto) (0-5) /hpf Urine RBC (Auto) (0-4) /hpf U Hyaline Cast (Auto) (0-5) /lpf U Epithel Cells (Auto) (0-5) /lpf Urine Bacteria (Auto) (Negative) Urine Mucus (None Prsent) A. phagocytophilum DNA Lyme Disease IgG Ab (Negative) Lyme IgG (Western Blot) Lyme IgG 18 kDa Band Lyme IgG 23 kDa Band Lyme IgG 28 kDa Band Lyme IgG 30 kDa Band Lyme IgG 39 kDa Band Lyme IgG 41 kDa Band Lyme IgG 45 kDa Band Lyme IgG 58 kDa Band Lyme IgG 66 kDa Band Lyme IgG 93 kDa Band Lyme IgM Ab (WB) Lyme Disease IgM Ab (Negative) Lyme IgM 23 kDa Band Lyme IgM 39 kDa Band Lyme IgM 41 kDa Band Hepatitis A IgM Ab Pending Hep Bs Antigen Neg (Neg) Hep B Core IgM Ab Pending Hepatitis C Ab Screen (Neg) Hepatitis C Antibody Neg (Neg) SARS-CoV-2, RNA, NAAT (NEGATIVE) 06/06/21 06/06/21 06/06/21 Range/Units 15:50 15:50 15:50 WBC (4.8-10.8) K/uL RBC (4.7-6.1) M/uL Hgb (14.0-18.0) g/dL Hct (42-52) % MCV (80-100) fL MCH (25-34) pg MCHC (32-36) g/dL RDW Std Deviation (36.4-46.3) fL RDW Coeff of Fabiola (11.5-14.5) % Plt Count (130-400) K/uL MPV (7.4-10.4) fL Immature Gran % (Auto) % Neut % (Auto) % Lymph % (Auto) % [place] % (Auto) % Eos % (Auto) % Baso % (Auto) % Neut # (Auto) (1.4-6.5) K/uL Lymph # (Auto) (1.2-3.4) K/uL [place] # (Auto) (0.11-0.59) K/uL Eos # (Auto) (0-0.5) K/uL Baso # (Auto) (0-0.2) K/uL Immature Gran # (Auto) (0.00-0.02) K/uL Platelet Estimate (Normal) PT (9.0-12.0) Seconds INR (0.9-1.1) Sodium (136-145) mmol/L Potassium (3.5-5.1) mmol/L Chloride (98-107) mmol/L Carbon Dioxide (21-32) mmol/L Anion Gap (3-11) BUN (6-23) mg/dl Creatinine (0.6-1.4) mg/dl Est Cr Clr Drug Dosing ml/min Est GFR ( Amer) ml/min Est GFR (Non-Af Amer) ml/min BUN/Creatinine Ratio (10-20) Glucose (70-99(Fasting)) mg/dl Calcium (8.5-10.1) mg/dl Magnesium (1.7-2.4) mg/dl Total Bilirubin (0.2-1.0) mg/dl Direct Bilirubin (0-0.2) mg/dl AST (13-39) U/L ALT (7-52) U/L Alkaline Phosphatase (34-104) U/L Ammonia (18-72) umol/L Troponin I (0-0.04) ng/ml Total Protein (6.0-8.3) gm/dl Albumin (3.4-5.0) gm/dl Globulin (2.5-4.0) gm/dl Albumin/Globulin Ratio (0.9-2) Lipase (11-82) U/L Urine Color Urine Appearance (Clear) Urine pH (4.5-7.5) Ur Specific [place] (1.000-1.030) Urine Protein (Negative) Urine Glucose (UA) (Negative) Urine Ketones (Negative) Urine Blood (Negative) Urine Nitrite (Negative) Urine Bilirubin (Negative) Urine Urobilinogen (Negative) Ur Leukocyte Esterase (Negative) Urine WBC (Auto) (0-5) /hpf Urine RBC (Auto) (0-4) /hpf U Hyaline Cast (Auto) (0-5) /lpf U Epithel Cells (Auto) (0-5) /lpf Urine Bacteria (Auto) (Negative) Urine Mucus (None Prsent) A. phagocytophilum DNA Pending Lyme Disease IgG Ab Negative (Negative) Lyme IgG (Western Blot) Pending Lyme IgG 18 kDa Band Pending Lyme IgG 23 kDa Band Pending Lyme IgG 28 kDa Band Pending Lyme IgG 30 kDa Band Pending Lyme IgG 39 kDa Band Pending Lyme IgG 41 kDa Band Pending Lyme IgG 45 kDa Band Pending Lyme IgG 58 kDa Band Pending Lyme IgG 66 kDa Band Pending Lyme IgG 93 kDa Band Pending Lyme IgM Ab (WB) Pending Lyme Disease IgM Ab Positive A (Negative) Lyme IgM 23 kDa Band Pending Lyme IgM 39 kDa Band Pending Lyme IgM 41 kDa Band Pending Hepatitis A IgM Ab Hep Bs Antigen (Neg) Hep B Core IgM Ab Hepatitis C Ab Screen (Neg) Hepatitis C Antibody (Neg) SARS-CoV-2, RNA, NAAT (NEGATIVE) 06/06/21 06/06/21 06/06/21 Range/Units 15:50 15:40 10:40 WBC (4.8-10.8) K/uL RBC (4.7-6.1) M/uL Hgb (14.0-18.0) g/dL Hct (42-52) % MCV (80-100) fL MCH (25-34) pg MCHC (32-36) g/dL RDW Std Deviation (36.4-46.3) fL RDW Coeff of Fabiola (11.5-14.5) % Plt Count (130-400) K/uL MPV (7.4-10.4) fL Immature Gran % (Auto) % Neut % (Auto) % Lymph % (Auto) % [place] % (Auto) % Eos % (Auto) % Baso % (Auto) % Neut # (Auto) (1.4-6.5) K/uL Lymph # (Auto) (1.2-3.4) K/uL [place] # (Auto) (0.11-0.59) K/uL Eos # (Auto) (0-0.5) K/uL Baso # (Auto) (0-0.2) K/uL Immature Gran # (Auto) (0.00-0.02) K/uL Platelet Estimate (Normal) PT (9.0-12.0) Seconds INR (0.9-1.1) Sodium (136-145) mmol/L Potassium (3.5-5.1) mmol/L Chloride (98-107) mmol/L Carbon Dioxide (21-32) mmol/L Anion Gap (3-11) BUN (6-23) mg/dl Creatinine (0.6-1.4) mg/dl Est Cr Clr Drug Dosing ml/min Est GFR ( Amer) ml/min Est GFR (Non-Af Amer) ml/min BUN/Creatinine Ratio (10-20) Glucose (70-99(Fasting)) mg/dl Calcium (8.5-10.1) mg/dl Magnesium 1.6 L (1.7-2.4) mg/dl Total Bilirubin (0.2-1.0) mg/dl Direct Bilirubin (0-0.2) mg/dl AST (13-39) U/L ALT (7-52) U/L Alkaline Phosphatase (34-104) U/L Ammonia (18-72) umol/L Troponin I (0-0.04) ng/ml Total Protein (6.0-8.3) gm/dl Albumin (3.4-5.0) gm/dl Globulin (2.5-4.0) gm/dl Albumin/Globulin Ratio (0.9-2) Lipase (11-82) U/L Urine Color [place] Urine Appearance Clear (Clear) Urine pH 6.0 (4.5-7.5) Ur Specific [place] 1.026 (1.000-1.030) Urine Protein 2+ H (Negative) Urine Glucose (UA) Negative (Negative) Urine Ketones Trace H (Negative) Urine Blood 1+ H (Negative) Urine Nitrite Positive A (Negative) Urine Bilirubin 2+ H (Negative) Urine Urobilinogen Positive H (Negative) Ur Leukocyte Esterase 1+ H (Negative) Urine WBC (Auto) 1-5 (0-5) /hpf Urine RBC (Auto) 10-30 H (0-4) /hpf U Hyaline Cast (Auto) 1-5 (0-5) /lpf U Epithel Cells (Auto) 20-30 H (0-5) /lpf Urine Bacteria (Auto) 1+ H (Negative) Urine Mucus Present A (None Prsent) A. phagocytophilum DNA Lyme Disease IgG Ab (Negative) Lyme IgG (Western Blot) Lyme IgG 18 kDa Band Lyme IgG 23 kDa Band Lyme IgG 28 kDa Band Lyme IgG 30 kDa Band Lyme IgG 39 kDa Band Lyme IgG 41 kDa Band Lyme IgG 45 kDa Band Lyme IgG 58 kDa Band Lyme IgG 66 kDa Band Lyme IgG 93 kDa Band Lyme IgM Ab (WB) Lyme Disease IgM Ab (Negative) Lyme IgM 23 kDa Band Lyme IgM 39 kDa Band Lyme IgM 41 kDa Band Hepatitis A IgM Ab Hep Bs Antigen (Neg) Hep B Core IgM Ab Hepatitis C Ab Screen (Neg) Hepatitis C Antibody (Neg) SARS-CoV-2, RNA, NAAT NEGATIVE (NEGATIVE) 06/06/21 06/06/21 Range/Units 10:40 10:40 WBC 8.44 (4.8-10.8) K/uL RBC 4.27 L (4.7-6.1) M/uL Hgb 15.0 (14.0-18.0) g/dL Hct 41.9 L (42-52) % MCV 98.1 (80-100) fL MCH 35.1 H (25-34) pg MCHC 35.8 (32-36) g/dL RDW Std Deviation 53.7 H (36.4-46.3) fL RDW Coeff of Fabiola 14.8 H (11.5-14.5) % Plt Count 84 L (130-400) K/uL MPV 12.3 H (7.4-10.4) fL Immature Gran % (Auto) 0.1 % Neut % (Auto) 56.3 % Lymph % (Auto) 21.0 % [place] % (Auto) 13.6 % Eos % (Auto) 7.9 % Baso % (Auto) 1.1 % Neut # (Auto) 4.75 (1.4-6.5) K/uL Lymph # (Auto) 1.77 (1.2-3.4) K/uL [place] # (Auto) 1.15 H (0.11-0.59) K/uL Eos # (Auto) 0.67 H (0-0.5) K/uL Baso # (Auto) 0.09 (0-0.2) K/uL Immature Gran # (Auto) 0.01 (0.00-0.02) K/uL Platelet Estimate Decreased L (Normal) PT (9.0-12.0) Seconds INR (0.9-1.1) Sodium 140 (136-145) mmol/L Potassium 3.4 L (3.5-5.1) mmol/L Chloride 112 H (98-107) mmol/L Carbon Dioxide 22 (21-32) mmol/L Anion Gap 6 (3-11) BUN 9 (6-23) mg/dl Creatinine 0.72 (0.6-1.4) mg/dl Est Cr Clr Drug Dosing 98.2 ml/min Est GFR ( Amer) 120.9 ml/min Est GFR (Non-Af Amer) 104.3 ml/min BUN/Creatinine Ratio 12.5 (10-20) Glucose 134 H (70-99(Fasting)) mg/dl Calcium 8.6 (8.5-10.1) mg/dl Magnesium (1.7-2.4) mg/dl Total Bilirubin 1.8 H (0.2-1.0) mg/dl Direct Bilirubin (0-0.2) mg/dl AST 87 H (13-39) U/L ALT 61 H (7-52) U/L Alkaline Phosphatase 103 (34-104) U/L Ammonia (18-72) umol/L Troponin I < 0.03 (0-0.04) ng/ml Total Protein 6.5 (6.0-8.3) gm/dl Albumin 3.3 L (3.4-5.0) gm/dl Globulin 3.2 (2.5-4.0) gm/dl Albumin/Globulin Ratio 1.0 (0.9-2) Lipase 40 (11-82) U/L Urine Color Urine Appearance (Clear) Urine pH (4.5-7.5) Ur Specific [place] (1.000-1.030) Urine Protein (Negative) Urine Glucose (UA) (Negative) Urine Ketones (Negative) Urine Blood (Negative) Urine Nitrite (Negative) Urine Bilirubin (Negative) Urine Urobilinogen (Negative) Ur Leukocyte Esterase (Negative) Urine WBC (Auto) (0-5) /hpf Urine RBC (Auto) (0-4) /hpf U Hyaline Cast (Auto) (0-5) /lpf U Epithel Cells (Auto) (0-5) /lpf Urine Bacteria (Auto) (Negative) Urine Mucus (None Prsent) A. phagocytophilum DNA Lyme Disease IgG Ab (Negative) Lyme IgG (Western Blot) Lyme IgG 18 kDa Band Lyme IgG 23 kDa Band Lyme IgG 28 kDa Band Lyme IgG 30 kDa Band Lyme IgG 39 kDa Band Lyme IgG 41 kDa Band Lyme IgG 45 kDa Band Lyme IgG 58 kDa Band Lyme IgG 66 kDa Band Lyme IgG 93 kDa Band Lyme IgM Ab (WB) Lyme Disease IgM Ab (Negative) Lyme IgM 23 kDa Band Lyme IgM 39 kDa Band Lyme IgM 41 kDa Band Hepatitis A IgM Ab Hep Bs Antigen (Neg) Hep B Core IgM Ab Hepatitis C Ab Screen (Neg) Hepatitis C Antibody (Neg) SARS-CoV-2, RNA, NAAT (NEGATIVE) Diagnostic Findings US ABD: FINDINGS: The study is limited by overlying bowel gas. Pancreas: The pancreas is obscured by bowel gas but was well seen on the CT scan. Liver: The liver is homogeneous in echogenicity There is no evidence for a focal mass. There is no intrahepatic biliary duct dilatation. Is within normal limits of size measuring 16.2 cm in greatest length. Subcentimeter hepatic cysts seen on CT are not identified by ultrasound. Gallbladder: Surgically absent Common Bile Duct: (CBD): It is normal in size measuring millimeter Inferior Vena Cava (IVC): The imaged IVC is patent. Right kidney: There is no evidence for hydronephrosis, calculus or gross renal mass. The kidney is normal in size. IMPRESSION: 1. Limited examination due to overlying bowel gas. 2. Negative ultrasound of the liver. CTAP: FINDINGS: Lung base: The lung bases are clear. Abdominal cavity: There is no evidence for abdominal mass, adenopathy or ascites. Liver: There is homogeneous attenuation of the liver parenchyma. There is no evidence for enhancing mass lesion. Multiple subcentimeter hepatic cysts are again seen. Spleen: There is homogeneous attenuation of the splenic parenchyma. There is no enhancing mass lesion. Pancreas: There is homogeneous attenuation of the pancreatic parenchyma. There is no evidence for mass lesion or peripancreatic fluid collection. Gall Bladder: Surgical clips are present. Adrenal glands: The adrenal glands are normal in size and attenuation. There is no evidence for enhancing mass lesion. Kidneys: There is homogeneous attenuation of the renal parenchyma bilaterally. There is no evidence for renal calculus or hydronephrosis. There is no evidence for enhancing mass. Bowel: The bowel loops are normally placed within the abdomen and pelvis without evidence for dilatation or obstruction. There is no evidence for mass lesion. There are no inflammatory changes present. There is no evidence for free air. The appendix is absent. Bladder: The bladder is within normal limits with no evidence for focal mass, calculus or diverticulum. : There is no evidence for pelvic mass or adenopathy. There is no evidence for pelvic ascites. Vasculature: Compared to the previous study, there is significant increase mesenteric perfusion with dilated mesenteric vessels seen throughout the mid abdomen and particularly in the right side of the abdomen and surrounding the liver. The etiology of this finding is uncertain. In a patient with a GI bleed, consider radionuclide red blood cell study for further evaluation. Osseous structures: There is no acute osseous pathology. IMPRESSION: 1. No acute intra-abdominal or pelvic abnormality. 2. However, there has been interval development of significant increased mesenteric vascular arterial perfusion with dilated mesenteric artery seen throughout the mid abdomen and particularly in the right side of the abdomen, surrounding the liver. Etiology of these findings is uncertain. The patient with a history of GI bleeding, radionuclide red blood cell study may be helpful for further evaluation.
--- NOTE | 2021-06-07 10:50 | Hospitalist Progress Note ---
Date of Service June 07, 2021 Assessment & Plan (1) Abdominal pain: Plan: (2) Transaminitis: (3) Thrombocytopenia: (4) HTN (hypertension): (5) HLD (hyperlipidemia): (6) UTI (urinary tract infection): Plan: This is a 55-year-old male who has significant past medical history of HTN, HLD, GERD, alcohol abuse, thrombocytopenia who presented to ED secondary to LLQ abd pain, n/v x [address] a/p: No acute intra-abdominal or pelvic abnormality. 2. However, there has been interval development of significant increased mesenteric vascular arterial perfusion with dilated mesenteric artery seen throughout the mid abdomen and particularly in the right side of the abdomen, surrounding the liver. Etiology of these findings is uncertain. The patient with a history of GI bleeding, radionuclide red blood cell study may be helpful for further evaluation. Liver US:1. Limited examination due to overlying bowel gas. 2. Negative ultrasound of the liver. Abdominal Pain N/V Suspected UTI admit to med/surg General Surgery and GI consulted - appreciate their input pt empirically being treated with IV zosyn and IVF currently NPO - awaiting GI eval sx seem to be improving this a.m. and pain has almost resolved continue IV antibiotic until urine culture returns IV PPI bid for now obtain hepatic duplex Alcohol abuse Elevated LFTS Thrombocytopenia Cirrhosis hyperammonemia chronic, pt reports drinking a 12pk on the weekends only no daily drinking continue thiamine/folic acid supplementation awss protocol, no need for gabapentin at this point pt with dedicated CT as OP suggestive of cirrhosis Is established with GI as OP received lactulose yesterday due to constipation, +BM will repeat NH3 in a.m. Hypomagnesemia replete Hypokalemia on admission resolved HTN bp stable on metoprolol and hctz HCTZ on hold while hospitalized for n/v HLD on statin monitor lft +Lyme IGM ab will empirically tx with oral doxy for now await western blot DVT ppx: SCD/TEDS for now PCP: Brandi FULL CODE Dispo: Med/surg, likely d/c to home in next 1-2 days when medically stable Admission and Anticipated Discharge Date Admission Date: June 06, 2021 Subjective Patient was seen and examined in room 352-2. Follow-up left lower quadrant abdominal pain. Patient states he feels improved this morning. He had a bowel movement last evening. Currently at rest pain is a 3 out of 10. Pain yesterday was a 7-8 out of 10. Currently he denies any fever, chills, sweats, lightheadedness, dizziness, chest pain, shortness breath, nausea, vomiting or diarrhea. He does complain of dysuria. He typically has increased frequency with urination due to medications and feels like this is unchanged. He has never had anything like this before. He denies prior history of urinary tract infection. He does drink alcohol on weekends, up to a 12 pack. He states his last drink was 2 days ago when he had 5-6 light beers. No prior history of withdrawal. Review of Systems Review of Systems: All systems reviewed & are unremarkable except as noted in HPI & below Physical Exam Physical Exam: Gen: WD/WN, NAD, A&O x3 HEENT: Normocephalic, atraumatic, conjunctivae moist, sclerae anicteric, mucous membranes moist. Lung: Clear to Auscultation bilaterally, no wheezes/rales/rhonchi Heart: Regular rate, regular rhythm, no murmurs, rubs, or gallops Abdomen: Soft, NT, ND +BS x 4 Extremities: No edema Skin: Warm, no rash, negative turgor. Results & Data Results & Data ([facility]) Vital Signs (Past 12 Hours) Vital Signs Temp Pulse Resp BP Pulse Ox 06/07/21 07:44 36.8 C 82 16 120/74 94 Laboratory Results Short CBC 06/06/21 06/06/21 06/06/21 Range/Units 10:40 18:03 23:27 WBC 8.44 (4.8-10.8) K/uL Hgb 15.0 15.5 14.1 (14.0-18.0) g/dL Hct 41.9 L 43.7 41.1 L (42-52) % Plt Count 84 L (130-400) K/uL 06/07/21 Range/Units 05:55 WBC 7.72 (4.8-10.8) K/uL Hgb 13.3 L (14.0-18.0) g/dL Hct 38.3 L (42-52) % Plt Count 73 L (130-400) K/uL BMP 06/06/21 06/07/21 10:40 05:55 Sodium 140 140 Potassium 3.4 L 3.6 Chloride 112 H 114 H Carbon Dioxide 22 22 BUN 9 10 Creatinine 0.72 0.76 Glucose 134 H 97 Calcium 8.6 7.1 L Cardiac Enzymes 06/06/21 Range/Units 10:40 Troponin I < 0.03 (0-0.04) ng/ml Liver Function 06/06/21 06/07/21 Range/Units 10:40 05:55 Total Bilirubin 1.8 H 1.8 H (0.2-1.0) mg/dl Direct Bilirubin 0.4 H (0-0.2) mg/dl AST 87 H 69 H (13-39) U/L ALT 61 H 48 (7-52) U/L Alkaline Phosphatase 103 86 (34-104) U/L Albumin 3.3 L 2.9 L (3.4-5.0) gm/dl Urine 06/06/21 Range/Units 10:40 Urine Color [place] Urine Appearance Clear (Clear) Urine pH 6.0 (4.5-7.5) Ur Specific [place] 1.026 (1.000-1.030) Urine Protein 2+ H (Negative) Urine Glucose (UA) Negative (Negative) Diagnostic Findings Abdomen/Pelvis CT 06/06/21 10:37 CT abd pelvis IV con only CLINICAL HISTORY: LLQ pain, mild diffuse pain, bloody stool COMPARISON STUDY: 02/27/2019 CT DOSE: 577.25 mGy.cm TECHNIQUE: Standard CT of the Abdomen and Pelvis was performed with IV contrast. A dose lowering technique was utilized adhering to the principles of ALARA. Contrast Volume: Optiray 320, 94 ml. The patient did not receive oral contrast. FINDINGS: Lung base: The lung bases are clear. Abdominal cavity: There is no evidence for abdominal mass, adenopathy or ascites. Liver: There is homogeneous attenuation of the liver parenchyma. There is no evidence for enhancing mass lesion. Multiple subcentimeter hepatic cysts are again seen. Spleen: There is homogeneous attenuation of the splenic parenchyma. There is no enhancing mass lesion. Pancreas: There is homogeneous attenuation of the pancreatic parenchyma. There is no evidence for mass lesion or peripancreatic fluid collection. Gall Bladder: Surgical clips are present. Adrenal glands: The adrenal glands are normal in size and attenuation. There is no evidence for enhancing mass lesion. Kidneys: There is homogeneous attenuation of the renal parenchyma bilaterally. There is no evidence for renal calculus or hydronephrosis. There is no evidence for enhancing mass. Bowel: The bowel loops are normally placed within the abdomen and pelvis without evidence for dilatation or obstruction. There is no evidence for mass lesion. There are no inflammatory changes present. There is no evidence for free air. The appendix is absent. Bladder: The bladder is within normal limits with no evidence for focal mass, calculus or diverticulum. : There is no evidence for pelvic mass or adenopathy. There is no evidence for pelvic ascites. Vasculature: Compared to the previous study, there is significant increase mesenteric perfusion with dilated mesenteric vessels seen throughout the mid abdomen and particularly in the right side of the abdomen and surrounding the liver. The etiology of this finding is uncertain. In a patient with a GI bleed, consider radionuclide red blood cell study for further evaluation. Osseous structures: There is no acute osseous pathology. IMPRESSION: 1. No acute intra-abdominal or pelvic abnormality. 2. However, there has been interval development of significant increased mesenteric vascular arterial perfusion with dilated mesenteric artery seen throughout the mid abdomen and particularly in the right side of the abdomen, surrounding the liver. Etiology of these findings is uncertain. The patient with a history of GI bleeding, radionuclide red blood cell study may be helpful for further evaluation. ACT 112: Negative or not required by law. Electronically signed by: Deuce Proctor M.D. 06/06/2021 12:07 PM Liver Ultrasound 06/06/21 12:52 US liver LIMITED ABDOMEN CLINICAL HISTORY: transaminitis. COMPARISON: 05/23/[address] of the abdomen and pelvis from 06/06/2021 TECHNIQUE: Multiple grayscale and color images of the right upper quadrant of the abdomen. FINDINGS: The study is limited by overlying bowel gas. Pancreas: The pancreas is obscured by bowel gas but was well seen on the CT scan. Liver: The liver is homogeneous in echogenicity There is no evidence for a focal mass. There is no intrahepatic biliary duct dilatation. Is within normal limits of size measuring 16.2 cm in greatest length. Subcentimeter hepatic cysts seen on CT are not identified by ultrasound. Gallbladder: Surgically absent Common Bile Duct: (CBD): It is normal in size measuring millimeter Inferior Vena Cava (IVC): The imaged IVC is patent. Right kidney: There is no evidence for hydronephrosis, calculus or gross renal mass. The kidney is normal in size. IMPRESSION: 1. Limited examination due to overlying bowel gas. 2. Negative ultrasound of the liver. ACT 112: Negative or not required by law. Electronically signed by: Deuce Proctor M.D. 06/06/2021 1:36 PM Medications Administered Current Inpatient Medications Acetaminophen (Acetaminophen 325 Mg Tab) 650 mg PO Q6H PRN PRN Reason: Moderate Pain Stop: 07/06/21 17:27 Atorvastatin Calcium (Atorvastatin 20 Mg Tab) 20 mg PO HS [facility]1983 Stop: 07/06/21 20:59 Last Admin: 06/06/21 20:16 Dose: 20 mg Documented by: Diphenhydramine HCl (Diphenhydramine Capsule 25 Mg Cap) 25 mg PO Q6H PRN PRN Reason: Itching Stop: 07/07/21 08:52 Last Admin: 06/07/21 09:01 Dose: 25 mg Documented by: Folic Acid (Folic Acid 400 Mcg Tab) 400 mcg PO QAM [facility]1983 Stop: 07/07/21 08:59 Last Admin: 06/07/21 07:43 Dose: 400 mcg Documented by: Piperacillin Sod/Tazobactam (Sod 3.375 gm/ Dextrose) 115 mls @ 28.75 mls/hr IV Q8H [facility], [facility]1983; Protocol Stop: 06/08/21 17:59 Last Admin: 06/07/21 09:03 Dose: 28.8 mls/hr Documented by: Pantoprazole Sodium 40 mg/ (Syringe) 10 mls @ 5 mls/min IV BID [facility], [facility]1983 Stop: 07/06/21 20:59 Last Admin: 06/07/21 07:42 Dose: 5 mls/min Documented by: Potassium Chloride/Dextrose/Sod Cl (D5nss + 20meq Kcl) 20 meq in 1,000 mls @ 80 mls/hr IV .[id number] ANNMARIE; Protocol Stop: 07/06/21 18:29 Last Admin: 06/07/21 07:41 Dose: 80 mls/hr Documented by: Ipratropium [place] (Ipratropium [place] Nasal [place] 0.06% 15ml) 2 sprays CHRISTIAN Q12 ANNMARIE Stop: 07/06/21 20:59 Last Admin: 06/07/21 07:45 Dose: 2 sprays Documented by: Lorazepam (Lorazepam 2 Mg/1 Ml Vial) 1 mg IV UD PRN; Protocol PRN Reason: EtOH Withdrawl AWSS Score 6,7 Stop: 07/07/21 06:00 Lorazepam (Lorazepam 2 Mg/1 Ml Vial) 2 mg IV UD PRN; Protocol PRN Reason: EtOH Withdrawl AWSS Score 8,9 Stop: 07/07/21 06:00 Lorazepam (Lorazepam 2 Mg/1 Ml Vial) 3 mg IV ONCE PRN; Protocol PRN Reason: EtOH Withdrawl AWSS Score >=10 Stop: 07/07/21 06:00 Metoprolol Succinate (Metoprolol Succ 25mg Ext Rel Tab) 25 mg PO DAILY [facility]1983 Stop: 07/07/21 08:59 Last Admin: 06/07/21 07:46 Dose: 25 mg Documented by: Miscellaneous Information (Piperacill/Tazobac Consult Active) 1 ea N/A UD PRN PRN Reason: Consult Stop: 07/06/21 11:38 Morphine Sulfate (Morphine Sulfate 4 Mg/Ml 1 Ml [place]\Vial) 4 mg IV Q4H PRN PRN Reason: Severe Pain Stop: 06/20/21 14:54 Last Admin: 06/07/21 03:20 Dose: 4 mg Documented by: Multivitamins (Multivitamin Tab) [address] [facility] Stop: 07/07/21 08:59 Last Admin: 06/07/21 07:43 Dose: 1 tab Documented by: Ondansetron HCl (Ondansetron Inj 2 Mg/Ml 2 Ml Vial) 4 mg IV Q4H PRN PRN Reason: Nausea And Vomiting Stop: 07/06/21 17:27 Last Admin: 06/06/21 17:45 Dose: 4 mg Documented by: Thiamine HCl (Thiamine Hcl 100 Mg Tab) 100 mg PO QAM [facility]1983 Stop: 07/07/21 08:59 Last Admin: 06/07/21 07:43 Dose: 100 mg Documented by:
[2021-06-07] MEDS ORDERED: POLYETHYLENE (MIRALAX) 17 GM PACK PO SCH (11:45)
--- NOTE | 2021-06-07 14:37 | Discharge Summary ---
Date of Service June 07, 2021 Admission HPI Per Admitting Provider This is a 55 yo M with PMHx of HTN, HLD, liver cirrhosis, GI bleed, thrombocytopenia, seasonal allergies, migraine, who presents to the ER with abdominal pain in the left lower quadrant associated with nausea and some vo miting is 1 week. He admits to feeling significantly distended and minimal palpation is very painful. Patient notes that he has not had a bowel movement in 3 days however 3 days ago he had dark bowel movement. He denies any bright red blood per rectum. Has been eating and drinking fairly well, denies any worsening postprandial pain. He denies any fevers, chills or sweats. Admits to a 1 to 2 pound weight gain in the past week. His last alcoholic drink was last evening where he consumed 8-9 beers, and states that he actually felt better after drinking this amount of alcohol. His fianceKandace is present with him at bedside and supports the history. He previously has followed with GI as an outpatient with [facility], but has not seen them since last spring he was followed up for suspected liver cirrhosis He is status post cholecystectomy in 2018 and appendectomy in 1977. He had a an open bowel resection done in 2012. Alcohol use: 12 pack every Monday, drank 8-9 beers yesterday. Previously drank much more - 24 case beer on weekends and rum and coke throughout the week. Smoking: Current, smokes 1 to 2 cigarettes/day for whole adult life Admission Exam Per Admitting Provider General: awake, alert, mild distress Head: Normocephalic, atraumatic ENT: PERRL, EOMI, no pharyngeal exudate, mucous membranes moist Chest: Clear to auscultation, on room air, no adventitious breath sounds Cardiac: Regular rate and rhythm, no murmur, no JVD, normal peripheral pulses, good capillary refill Abdominal: NABS x 4 quadrants, +distended, +tender to palpation in Left upper and moreso in the Left lower quadrant, no rebound or guarding Extremities: Normal inspection, no peripheral edema or erythema, calfs nontender to palpation Psych: Normal mood and affect Neuro: AAO x 3, strength intact bilaterally and rated 5/5, no motor deficits, speech is clear, no peripheral sensory deficits Principal Diagnosis Abdominal Pain UTI Constipation Possible Lyme disease Cirrhosis of Liver Low Platelets Discharge Exam Gen: WD/WN, NAD, A&O x3 HEENT: Normocephalic, atraumatic, conjunctivae moist, sclerae anicteric, mucous membranes moist. Lung: Clear to Auscultation bilaterally, no wheezes/rales/rhonchi Heart: Regular rate, regular rhythm, no murmurs, rubs, or gallops Abdomen: Soft, NT, ND +BS x 4 Extremities: No edema Skin: Warm, no rash, negative turgor. Discharge Data Allergies Allergy/AdvReac Type Severity Reaction Status Date / Time No Known Drug Allergies Allergy Verified 06/06/21 13:45 Consultations 06/06/21 13:55 ED Decision to Admit Stat 06/06/21 14:17 Consult Gastroenterology Routine 1) Abdominal pain: (2) Cirrhosis of liver: (3) UTI (urinary tract infection): 55-year-old male with history of cirrhosis, EtOH use, colonic polyps, presented with abdominal pain which is now resolved after having a large BM. He feels well. CT imaging with dilated mesenteric vessels of unknown etiology. EGD last year w/ no varices. His MELD is slightly higher than last year. With regard to his cirrhosis he appears well compensated. No evidence for acute GI bleeding, ascites or HE. On exam abd soft, nontender, he's resting comfortably in bed; states he's hungry. - Recommend hepatic duplex to evaluate CT findings; this can be done as OP - He can diet as tolerated - As he tends towards constipation recommend consider OP bowel regimen with Miralax daily + stool softener. - Recommend OP f/u with GI for history of cirrhosis - Avoid ETOH, Tylenol > 2 gm daily, and other hepatotoxins Thank you for allowing us to participate in the care of this patient. Please call with any acute changes, questions or concerns. Please see addendum below with additional recommendation from my supervising physician. 06/06/21 17:28 Consult General Surgery Routine Cirrhosis of liver: I do not see any specific surgical problem which would require any intervention I do believe he has significant enlargement of the vasculature especially within the abdomen concerning his mesentery and perihepatic vessels I would be very concerned that he has severe varices GI evaluation would be appropriate Patient in my view is not a candidate for any surgical intervention In this hospital because of his severe liver disease and thrombocytopenia Please call with any other concerns Ordered Studies Abdomen/Pelvis CT 06/06/21 10:37 CT abd pelvis IV con only CLINICAL HISTORY: LLQ pain, mild diffuse pain, bloody stool COMPARISON STUDY: 02/27/2019 CT DOSE: 577.25 mGy.cm TECHNIQUE: Standard CT of the Abdomen and Pelvis was performed with IV contrast. A dose lowering technique was utilized adhering to the principles of ALARA. Contrast Volume: Optiray 320, 94 ml. The patient did not receive oral contrast. FINDINGS: Lung base: The lung bases are clear. Abdominal cavity: There is no evidence for abdominal mass, adenopathy or ascites. Liver: There is homogeneous attenuation of the liver parenchyma. There is no evidence for enhancing mass lesion. Multiple subcentimeter hepatic cysts are again seen. Spleen: There is homogeneous attenuation of the splenic parenchyma. There is no enhancing mass lesion. Pancreas: There is homogeneous attenuation of the pancreatic parenchyma. There is no evidence for mass lesion or peripancreatic fluid collection. Gall Bladder: Surgical clips are present. Adrenal glands: The adrenal glands are normal in size and attenuation. There is no evidence for enhancing mass lesion. Kidneys: There is homogeneous attenuation of the renal parenchyma bilaterally. There is no evidence for renal calculus or hydronephrosis. There is no evidence for enhancing mass. Bowel: The bowel loops are normally placed within the abdomen and pelvis without evidence for dilatation or obstruction. There is no evidence for mass lesion. There are no inflammatory changes present. There is no evidence for free air. The appendix is absent. Bladder: The bladder is within normal limits with no evidence for focal mass, calculus or diverticulum. : There is no evidence for pelvic mass or adenopathy. There is no evidence for pelvic ascites. Vasculature: Compared to the previous study, there is significant increase mesenteric perfusion with dilated mesenteric vessels seen throughout the mid abdomen and particularly in the right side of the abdomen and surrounding the liver. The etiology of this finding is uncertain. In a patient with a GI bleed, consider radionuclide red blood cell study for further evaluation. Osseous structures: There is no acute osseous pathology. IMPRESSION: 1. No acute intra-abdominal or pelvic abnormality. 2. However, there has been interval development of significant increased mesenteric vascular arterial perfusion with dilated mesenteric artery seen throughout the mid abdomen and particularly in the right side of the abdomen, surrounding the liver. Etiology of these findings is uncertain. The patient with a history of GI bleeding, radionuclide red blood cell study may be helpful for further evaluation. ACT 112: Negative or not required by law. Electronically signed by: Deuce Proctor M.D. 06/06/2021 12:07 PM Liver Ultrasound 06/06/21 12:52 US liver LIMITED ABDOMEN CLINICAL HISTORY: transaminitis. COMPARISON: 05/23/[address] of the abdomen and pelvis from 06/06/2021 TECHNIQUE: Multiple grayscale and color images of the right upper quadrant of the abdomen. FINDINGS: The study is limited by overlying bowel gas. Pancreas: The pancreas is obscured by bowel gas but was well seen on the CT scan. Liver: The liver is homogeneous in echogenicity There is no evidence for a focal mass. There is no intrahepatic biliary duct dilatation. Is within normal limits of size measuring 16.2 cm in greatest length. Subcentimeter hepatic cysts seen on CT are not identified by ultrasound. Gallbladder: Surgically absent Common Bile Duct: (CBD): It is normal in size measuring millimeter Inferior Vena Cava (IVC): The imaged IVC is patent. Right kidney: There is no evidence for hydronephrosis, calculus or gross renal mass. The kidney is normal in size. IMPRESSION: 1. Limited examination due to overlying bowel gas. 2. Negative ultrasound of the liver. ACT 112: Negative or not required by law. Electronically signed by: Deuce Proctor M.D. 06/06/2021 1:36 PM Hospital Course (1) Abdominal pain: (2) Transaminitis: (3) Thrombocytopenia: (4) HTN (hypertension): (5) HLD (hyperlipidemia): (6) UTI (urinary tract infection): This is a 55-year-old male who has significant past medical history of HTN, HLD, GERD, alcohol abuse, thrombocytopenia who presented to ED secondary to LLQ abd pain, n/v x [address] a/p: No acute intra-abdominal or pelvic abnormality. 2. However, there has been interval development of significant increased mesenteric vascular arterial perfusion with dilated mesenteric artery seen throughout the mid abdomen and particularly in the right side of the abdomen, surrounding the liver. Etiology of these findings is uncertain. Liver US:1. Limited examination due to overlying bowel gas. 2. Negative ultrasound of the liver. He was admitted to med/surg and made NPO. He was started on IV zosyn due to concern for UTI and possible GI etiology of symptoms. He was started on IV PPI. General surgery saw an eval pt and felt not acute surgical indication. Gastroenterology was also on board. He is established with them as outpt for Cirrhosis. They recommend an hepatic duplex as outpt along with routine follow up with GI. It is also recommended he abstains from alcohol use. Due to thrombocytopenia he had a lyme and anaplasma screen ordered. His Lyme screen came back positive for IGM. His western blot is pending. He was starting on oral doxycycline twice daily for 10 days. He complained of constipation on admission and received 1 dose of lactulose. This promoted a bowel movement and his sx resolved. His diet was upgraded and he was eager to discharge home. It is recommend pt maintain a good bowel regimen to prevent constipation. He will be discharged on oral cefnidir for possible UTI as well as oral doxycline for presumed lyme disease. On day of discharge he was in good spirits, pain free and tolerating a diet. His vitals were stable. He will follow up with PCP and GI as scheduled. Total Time Total Time Spent Total Time Spent (In Minutes): 35 minutes Total Time Includes: Examination of the Patient, Discharge Planning, Medication Reconciliation, Communication With Other Providers and Other Discharge Plan Discharge Items Patient Disposition: Home - Self-Care Reason For Visit: ABDOMINAL PAIN Discharge Diagnosis: Abdominal Pain UTI Constipation Possible Lyme disease Cirrhosis of Liver Low Platelets Condition on Discharge: Good Activity: Resume your previous activity Bathing: No limitations Driving/Machine Use: Resume 1 day after discharge Weightbearing: Full weightbearing Non-emergency contact: Primary Care Provider and Associate Technician Call non-emergency contact if: you have any medication questions, your symptoms worsen, your pain is not controlled, your pain is worsening, you have a fever and your temperature is above 101 Follow-up/Referrals: Keyanna Gordon CRNP [Nurse Practitioner] - (Date & Time 06/16/2021 1:00 PM Provider YOGESH Orta Department Gastroenterology, [facility] ) Toby Paz MD [Primary Care Provider] - (Date & Time 06/11/2021 2:00 PM Provider Drea Raya MD Department [facility] ) Diet: Regular Diet Comment: Advance diet as tolerated Addtl Attending Provider Instructions: MEDICATION CHANGES: New medications: Cefdinir 300mg by mouth twice daily x 7 days - UTI Doxycycline 100mg by mouth twice daily x 10 days - Lyme Disease Florastor 250mg by mouth daily x 14 days - GI health while on antibiotics Colace 100mg by mouth twice daily ( This can be purchased over the counter for constipation) Miralax 17g packet once daily ( This can be purchased over the counter for constipation) SUMMARY OF TEST RESULTS: You were admitted to hospital due to abdominal pain, nausea and vomiting. CT abdomen pelvis did not reveal any acute abdominal pathology. There was concern for urinary tract infection and he was started on antibiotics. There was also concern for constipation and you received medication to help promote a bowel movement. After having a bowel movement your symptoms resolved. You were seen and evaluated by general surgery and gastroenterology. Conservative management with IV fluid and bowel rest was recommended. Your symptoms resolved and your diet was upgraded. Incidentally your Lyme test came back positive and you were started on anti biotic treatment for Lyme disease. PENDING TEST RESULTS: Urine culture Lyme's disease -Western blot RECOMMENDATIONS FOR FOLLOW-UP: Please follow-up with primary care provider as scheduled. Recommend following up with urine culture and Lyme disease panel that is still pending. GI is recommending you get an outpatient duplex ultrasound to evaluate abnormal CT findings of mesenteric arteries. Complete antibiotics in their entirety. Recommend following up with gastroenterology regarding cirrhosis of liver and abnormal CT scan of liver. Recommend abstaining from alcohol use. Do not take more than 2 g of Tylenol daily. Recommend taking a daily bowel regimen to prevent constipation. Recommend Colace 100 mg twice daily and MiraLAX 17 g daily. You can adjust this regimen to promote 1-2 soft daily bowel movements. Take all other medications as prescribed. OTHER INSTRUCTIONS: Seek medical attention if you have: * temperature above 101 * chest pain or trouble breathing * abdominal pain, nausea, vomiting * diarrhea, dark stools or bloody stools * any unanswered questions or concerns Call 911 if symptoms are severe. Please take good care of yourself. It has been a pleasure taking care of you. Please take care of yourself. If you have any questions regarding your recent hospitalization please contact [facility] and request bruna Merritt @ [phone]. Jeni Zapsky, PA-C Pending Studies at Discharge: Yes Studies:: Urine culture Lyme panel Stand-Alone Forms: My [facility], Smoking Cessation Medications and DC Order Prescriptions: New doxycycline hyclate 100 mg Capsule 100 mg PO BID 10 Days Qty: 20 RF: 0 docusate sodium 100 mg Capsule 100 mg PO BID 30 Days Qty: 60 RF: 0 polyethylene glycol 3350 [Miralax] 17 gram Powder In Packet 17 g PO DAILY Qty: 14 RF: 0 cefdinir 300 mg capsule 300 mg PO BID 7 Days Qty: 14 RF: 0 Saccharomyces boulardii [Florastor] 250 mg capsule 250 mg PO DAILY Qty: 10 RF: 0 Continued atorvastatin 20 mg Tablet 20 mg PO HS RF: 0 pantoprazole 40 mg Tablet,Delayed Release (Dr/Ec) 40 mg PO QAM RF: 0 hydrochlorothiazide 25 mg tablet 25 mg PO QAM RF: 0 metoprolol succinate 25 mg PO DAILY RF: 0 Discharge Orders: Discharge Order (Routine); Ordered 06/07/21 Ordered By: Jeni Do Admission Data Admit Date/Time: 06/06/21 14:17 Attending Provider: Billy Mock Admit Provider: Billy Mock Primary Care Provider: Toby Paz Other Providers: Camille Art ; Billy Mock ; Anderson Burrows ; Joelle Do
[2021-06-07] MEDS ORDERED: DOCUSATE SODIUM 100 MG CAP PO SCH (21:00)
[2021-06-07] MEDS ORDERED: DOXYCYCLINE HYCLATE 100 MG CAP PO SCH (21:00)
[2021-06-08 03:42] LABS: Hepatitis A Antibody IgM NON-REACTIVE (NON-REACTIVE); Hepatitis B Core Antibody IgM NON-REACTIVE (NON-REACTIVE)
[2021-06-09 02:02] LABS: 18KDIGG Band NON-REACTIVE; 23KDIGG Band NON-REACTIVE; 23KDIGM Band REACTIVE; 28KDIGG Band NON-REACTIVE; 30KDIGG Band NON-REACTIVE; 39KDIGG Band NON-REACTIVE; 39KDIGM Band NON-REACTIVE; 41KDIGG Band NON-REACTIVE; 41KDIGM Band NON-REACTIVE; 45KDIGG Band NON-REACTIVE; 58KDIGG Band NON-REACTIVE; 66KDIGG Band NON-REACTIVE; 93KDIGG Band NON-REACTIVE; Lyme Antibodies, WB IgG NEGATIVE (NEGATIVE); Lyme Antibodies, WB IgM NEGATIVE (NEGATIVE)
== END 2021-06-07 15:23 | disposition home or self-care (01) ==
LOC: 3W 10:06 → ED 10:06 → 3W 16:59

== ENCOUNTER 2021-12-09 14:31 | Inpatient (IN) ==
[2021-12-09] MEDS ORDERED: SODIUM CHLORIDE 0.9% 500 ML IV SCH (14:45)
--- NOTE | 2021-12-09 14:54 | Emergency Department Note ---
Impression & Plan Acute alteration in mental status, Acute hepatic encephalopathy ED Provider Note NAME: MARLEEN MELTON AGE: 56 SEX: M : 1965 ARRIVES VIA: Ambulance INFORMANT: Patient, patient's family members ED PROVIDER(S): Zay Nelson DO CHIEF COMPLAINT: Altered mental status HPI: The patient is a 56-year-old male who presented to the emergency department for an evaluation of altered mental status. The patient apparently was in his bed when his family came over to check on him. The patient has a history of hepatic encephalopathy. He reportedly was compliant with his outpatient medications. His family had not talked to him since yesterday and when they went to check on him today they found him in his bed slow to answer questions. There is no signs of trauma. The patient himself does not offer any complaints of chest pain or difficulty breathing. He states he is been compliant with his outpatient medications. He denies having any headache or fever. He denies having any lower extremity swelling or pain. The patient has had similar symptoms before when he has had a high ammonia level according to his family. ROS: See above HPI for pertinent positives & negatives. A total of 10 systems reviewed and were otherwise negative. PAST MEDICAL HISTORY: See Below PAST SURGICAL HISTORY: See Below FAMILY HISTORY: See Below SOCIAL HISTORY: See Below HOME MEDICATIONS: See Below ALLERGIES: See Below VITALS: See Below PHYSICAL EXAMINATION: GENERAL: Patient is awake and looking around the room. He is slow to answer questions but does answer appropriately for the most part. EYES: The conjunctivae are clear. The pupils are round and reactive. EARS, NOSE, MOUTH AND THROAT: The nose is without any evidence of any deformity. Mucous membranes are dry. NECK: The neck is nontender and supple. RESPIRATORY: Normal respiratory effort is noted there is no evidence of wheezing rhonchi or rales CARDIOVASCULAR: Regular rate and rhythm noted there no murmurs rubs or gallops normal S1 normal S2. GASTROINTESTINAL: The abdomen is soft. Right upper quadrant tenderness was noted to palpation. There is no guarding rigidity. MUSCULOSKELETAL/EXTREMITIES: There is no evidence of gross deformity full range of motion is noted in the hips and shoulders. SKIN: Skin is warm and dry. Trace pedal edema was noted bilaterally. NEUROLOGIC: Patient is awake and oriented to person place and time. Patellar tendon reflexes are 3+ bilaterally. Bilateral lower extremity clonus was appreciated. MEDICAL DECISION MAKING: The patient is a 56-year-old male who has a history of cirrhosis who presented to the emergency department for an evaluation of altered mental status. I discussed patient's laboratory and radiographic studies with him and his family. He was reevaluated multiple times. He was treated with lactulose in the emergency department. [facility] have agreed to evaluate the patient in the emergency department for further management disposition. Triage Nursing notes reviewed. Prior medical records reviewed Vital Signs: reviewed and remarkable for elevated blood pressure. Differential diagnosis: Infection, hypoglycemia, electrolyte abnormalities, overdose, toxicologic, cardiac sources, intracerebral event, neurologic, trauma, as well as other pathologies. ER treatment provided: See below Diagnostics interpreted by me: ECG: EKG was obtained in the emergency department. My interpretation is normal sinus rhythm at 89 bpm. There is no ectopy. There was no acute ST segment abnormalities noted. This was compared to a tracing from November 24, 2021. No changes were noted. Cardiac Monitoring: An order was placed for continuous cardiac monitoring. The monitor shows a rate of 80 bpm with sinus rhythm. Laboratory studies: As stated above and show below. Imaging studies: See below Consultation(s): I discussed this case with Dr. Lama who [facility]. Past Med/Surg History Medical History Abnormal PFT Acid reflux Cirrhosis of liver Elevated LFTs GERD (gastroesophageal reflux disease) H/O angioedema ongoing, follows with allergy HLD (hyperlipidemia) HTN (hypertension) Hyperlipidemia Hypertension Nausea Thrombocytopenia UTI (urinary tract infection) Surgical History History of appendectomy History of appendectomy History of bowel resection 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 History of colonoscopy History of esophagogastroduodenoscopy (EGD) History of tooth extraction Family History Father Hearing loss Hypertension Stroke Heart disease Other No pertinent family history in first degree relatives Denies family history of No family history of adverse response to anesthesia No family history of bleeding disorder Allergies Asthma Social History Smoking Status: Never smoker Tobacco Type: Cigarettes Cigarettes Per Day: 1-2; Second Hand Exposure: Yes; Hx Alcohol Use: No Hx Substance Use: No Preferred Language: Afghan Communication Ability: Effective 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: No Beliefs That Will Affect Care: None marital status: Single Current Living Situation: Significant Other Current Living Situation Comment: LIVES WITH GIRLFRIEND current occupational status: 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 Other Information That Helps Us Care for You: No Feels Safe at Home: Yes Safety Concerns: Feels Safe At This Time Assistive Devices: Glasses Allergies Allergies Allergy/AdvReac Type Severity Reaction Status Date / Time No Known Drug Allergies Allergy Unknown Verified 11/24/21 15:34 Home Meds Home Medications Medication Instructions Recorded Confirmed atorvastatin 20 mg tablet 20 mg PO HS 01/18/18 12/09/21 pantoprazole 40 mg tablet,delayed 40 mg PO QAM 07/26/18 12/09/21 release cyclobenzaprine 10 mg tablet 10 mg PO HS 11/24/21 12/09/21 furosemide 20 mg tablet 40 mg PO QAM 11/24/21 12/09/21 lactulose 10 gram/15 mL oral 30 ml PO QID 11/24/21 12/09/21 solution magnesium oxide 400 mg (241.3 mg 400 mg PO AMHS 11/24/21 12/09/21 magnesium) tablet metoprolol succinate 25 mg 25 mg PO DAILY 11/24/21 12/09/21 tablet,extended release 24 hr oxycodone 5 mg tablet 5 mg PO Q4 PRN Pain, Severe 11/24/21 12/09/21 spironolactone 25 mg tablet 25 mg PO QAM 11/24/21 12/09/21 sulfamethoxazole 800 1 tab PO BID 12/09/21 12/09/21 mg-trimethoprim 160 mg tablet Previous Rx's Medication Instructions Recorded Saccharomyces boulardii 250 mg 250 mg PO DAILY #10 caps 06/07/21 capsule (Florastor) Results & Data (ED) Vital Signs Vital Signs - 24 hr 12/09/21 14:38 12/09/21 14:42 12/09/21 14:42 Temperature 37.0 C Temperature Source Oral Pulse Rate 89 89 Pulse Rate [Left] Pulse Rhythm Regular Pulse Rhythm [Left] Respiratory Rate 20 20 Respiratory Effort / Characteristics Non-Labored Respiratory Depth Normal Blood Pressure 145/78 H Blood Pressure [Left Arm] Blood Pressure Mean 100 Blood Pressure Mean [Left Arm] Blood Pressure Position Lying Blood Pressure Position [Left Arm] Pulse Oximetry 98 97 Oxygen Delivery Method Room Air Room Air Room Air Sepsis Recent Fever Within 48 Hours No Sepsis New/Unexplained Change in Mental Status No Sepsis Action Taken by Nursing No Action Required 12/09/21 14:45 12/09/21 15:44 12/09/21 17:00 Temperature Temperature Source Pulse Rate Pulse Rate [Left] 72 80 Pulse Rhythm Pulse Rhythm [Left] Regular Regular Respiratory Rate 20 20 Respiratory Effort / Characteristics Non-Labored Respiratory Depth Normal Normal Blood Pressure Blood Pressure [Left Arm] 148/87 H 133/78 Blood Pressure Mean Blood Pressure Mean [Left Arm] 107 96 Blood Pressure Position Blood Pressure Position [Left Arm] Lying Lying Pulse Oximetry 97 95 97 Oxygen Delivery Method Room Air Room Air Room Air Sepsis Recent Fever Within 48 Hours Sepsis New/Unexplained Change in Mental Status Sepsis Action Taken by Correction Medications Current Medication List: was personally reviewed by me Laboratory Data Attestation: I reviewed the patient's lab results. Result diagrams: 12/10/21 05:56 12/10/21 05:56 Lab Results 12/09/21 12/09/21 12/09/21 Range/Units 14:56 14:56 14:56 WBC 8.08 (4.8-10.8) K/ul RBC 4.03 L (4.63-6.08) M/uL Hgb 13.5 L (14.0-18.0) g/dl Hct 38.0 L (40.1-51.0) % MCV 94.3 (80.0-100.0) fL MCH 33.5 (25.0-34.0) pg MCHC 35.5 (32.0-36.0) g/dL RDW Std Deviation 46.5 H (36.4-46.3) fL RDW Coeff of Fabiola 13.3 (11.5-14.5) % Plt Count 61 L (130-400) K/uL MPV 12.0 (9.4-12.4) fL Immature Gran % (Auto) 0.2 % Neut % (Auto) 67.1 % Lymph % (Auto) 18.8 % Casey % (Auto) 11.1 % Eos % (Auto) 2.2 % Baso % (Auto) 0.6 % Neut # (Auto) 5.41 (1.4-6.5) K/uL Lymph # (Auto) 1.52 (1.2-3.4) K/uL Casey # (Auto) 0.90 H (0.24-0.82) K/uL Eos # (Auto) 0.18 (0-0.50) K/uL Baso # (Auto) 0.05 (0-0.2) K/uL Immature Gran # (Auto) 0.02 (0.00-0.02) K/uL PT (9.0-12.0) Seconds INR (0.9-1.1) APTT (21.0-31.0) Seconds PTT Ratio VBG pH (7.36-7.41) VBG pCO2 (38-50) mmHg VBG pO2 mmHg VBG HCO3 mmol/L VBG O2 Saturation % VBG Base Excess mEq/L Sodium 140 (136-145) mmol/L Potassium 4.1 (3.5-5.1) mmol/L Chloride 114 H (98-107) mmol/L Carbon Dioxide 17 L (21-32) mmol/L Anion Gap 9 (3-11) BUN 17 (6-23) mg/dl Creatinine 1.04 (0.6-1.4) mg/dl Est Cr Clr Drug Dosing 78.4 ml/min Est GFR ( Amer) 91.9 ml/min Est GFR (Non-Af Amer) 79.3 ml/min BUN/Creatinine Ratio 16.3 (10-20) Glucose 81 (70-99(Fasting)) mg/dl Calcium 9.5 (8.5-10.1) mg/dl Magnesium 1.8 (1.7-2.4) mg/dl Total Bilirubin 2.1 H (0.2-1.0) mg/dl AST 64 H (13-39) U/L ALT 45 (7-52) U/L Alkaline Phosphatase 109 H (34-104) U/L Ammonia (18-72) umol/L Total Creatine Kinase 101 (30-223) U/L Troponin I High Sens 7.8 (0-20) pg/ml Total Protein 7.3 (6.0-8.3) gm/dl Albumin 3.5 (3.4-5.0) gm/dl Globulin 3.8 (2.5-4.0) gm/dl Albumin/Globulin Ratio 0.9 (0.9-2) TSH 1.225 (0.300-4.500) uIu/ml Urine Color Urine Appearance (Clear) Urine pH (4.5-7.5) Ur Specific [place] (1.000-1.030) Urine Protein (Negative) Urine Glucose (UA) (Negative) Urine Ketones (Negative) Urine Blood (Negative) Urine Nitrite (Negative) Urine Bilirubin (Negative) Urine Urobilinogen (Negative) Ur Leukocyte Esterase (Negative) Urine WBC (Auto) (0-5) /hpf Urine RBC (Auto) (0-4) /hpf U Hyaline Cast (Auto) (0-5) /lpf U Epithel Cells (Auto) (0-5) /lpf Urine Bacteria (Auto) (Negative) Urine Opiates Screen (Neg) Ur Methadone, Qual (Neg) Urine Barbiturates (Neg) Ur Phencyclidine (PCP) (Neg) U Amphetamin/Meth Scrn (Neg) MDMA (Ecstasy) Screen (Neg) U Benzodiazepines Scrn (Neg) Ur Cocaine Metabolite (Neg) U Marijuana (THC) Screen (Neg) Ethyl Alcohol mg/dL (<10.0) mg/dl SARS-CoV-2, RNA, NAAT (NEGATIVE) 12/09/21 12/09/21 12/09/21 Range/Units 14:56 14:56 14:56 WBC (4.8-10.8) K/ul RBC (4.63-6.08) M/uL Hgb (14.0-18.0) g/dl Hct (40.1-51.0) % MCV (80.0-100.0) fL MCH (25.0-34.0) pg MCHC (32.0-36.0) g/dL RDW Std Deviation (36.4-46.3) fL RDW Coeff of Fabiola (11.5-14.5) % Plt Count (130-400) K/uL MPV (9.4-12.4) fL Immature Gran % (Auto) % Neut % (Auto) % Lymph % (Auto) % Casey % (Auto) % Eos % (Auto) % Baso % (Auto) % Neut # (Auto) (1.4-6.5) K/uL Lymph # (Auto) (1.2-3.4) K/uL Casey # (Auto) (0.24-0.82) K/uL Eos # (Auto) (0-0.50) K/uL Baso # (Auto) (0-0.2) K/uL Immature Gran # (Auto) (0.00-0.02) K/uL PT 13.5 H (9.0-12.0) Seconds INR 1.3 H (0.9-1.1) APTT 29.2 (21.0-31.0) Seconds PTT Ratio 1.1 VBG pH (7.36-7.41) VBG pCO2 (38-50) mmHg VBG pO2 mmHg VBG HCO3 mmol/L VBG O2 Saturation % VBG Base Excess mEq/L Sodium (136-145) mmol/L Potassium (3.5-5.1) mmol/L Chloride (98-107) mmol/L Carbon Dioxide (21-32) mmol/L Anion Gap (3-11) BUN (6-23) mg/dl Creatinine (0.6-1.4) mg/dl Est Cr Clr Drug Dosing ml/min Est GFR ( Amer) ml/min Est GFR (Non-Af Amer) ml/min BUN/Creatinine Ratio (10-20) Glucose (70-99(Fasting)) mg/dl Calcium (8.5-10.1) mg/dl Magnesium (1.7-2.4) mg/dl Total Bilirubin (0.2-1.0) mg/dl AST (13-39) U/L ALT (7-52) U/L Alkaline Phosphatase (34-104) U/L Ammonia 74.0 H (18-72) umol/L Total Creatine Kinase (30-223) U/L Troponin I High Sens (0-20) pg/ml Total Protein (6.0-8.3) gm/dl Albumin (3.4-5.0) gm/dl Globulin (2.5-4.0) gm/dl Albumin/Globulin Ratio (0.9-2) TSH (0.300-4.500) uIu/ml Urine Color Urine Appearance (Clear) Urine pH (4.5-7.5) Ur Specific [place] (1.000-1.030) Urine Protein (Negative) Urine Glucose (UA) (Negative) Urine Ketones (Negative) Urine Blood (Negative) Urine Nitrite (Negative) Urine Bilirubin (Negative) Urine Urobilinogen (Negative) Ur Leukocyte Esterase (Negative) Urine WBC (Auto) (0-5) /hpf Urine RBC (Auto) (0-4) /hpf U Hyaline Cast (Auto) (0-5) /lpf U Epithel Cells (Auto) (0-5) /lpf Urine Bacteria (Auto) (Negative) Urine Opiates Screen (Neg) Ur Methadone, Qual (Neg) Urine Barbiturates (Neg) Ur Phencyclidine (PCP) (Neg) U Amphetamin/Meth Scrn (Neg) MDMA (Ecstasy) Screen (Neg) U Benzodiazepines Scrn (Neg) Ur Cocaine Metabolite (Neg) U Marijuana (THC) Screen (Neg) Ethyl Alcohol mg/dL < 10.0 (<10.0) mg/dl SARS-CoV-2, RNA, NAAT (NEGATIVE) 12/09/21 12/09/21 12/09/21 Range/Units 15:20 16:56 16:56 WBC (4.8-10.8) K/ul RBC (4.63-6.08) M/uL Hgb (14.0-18.0) g/dl Hct (40.1-51.0) % MCV (80.0-100.0) fL MCH (25.0-34.0) pg MCHC (32.0-36.0) g/dL RDW Std Deviation (36.4-46.3) fL RDW Coeff of Fabiola (11.5-14.5) % Plt Count (130-400) K/uL MPV (9.4-12.4) fL Immature Gran % (Auto) % Neut % (Auto) % Lymph % (Auto) % Casey % (Auto) % Eos % (Auto) % Baso % (Auto) % Neut # (Auto) (1.4-6.5) K/uL Lymph # (Auto) (1.2-3.4) K/uL Casey # (Auto) (0.24-0.82) K/uL Eos # (Auto) (0-0.50) K/uL Baso # (Auto) (0-0.2) K/uL Immature Gran # (Auto) (0.00-0.02) K/uL PT (9.0-12.0) Seconds INR (0.9-1.1) APTT (21.0-31.0) Seconds PTT Ratio VBG pH 7.42 H (7.36-7.41) VBG pCO2 31 L (38-50) mmHg VBG pO2 32 mmHg VBG HCO3 20 mmol/L VBG O2 Saturation < 60.0 % VBG Base Excess -3.4 mEq/L Sodium (136-145) mmol/L Potassium (3.5-5.1) mmol/L Chloride (98-107) mmol/L Carbon Dioxide (21-32) mmol/L Anion Gap (3-11) BUN (6-23) mg/dl Creatinine (0.6-1.4) mg/dl Est Cr Clr Drug Dosing ml/min Est GFR ( Amer) ml/min Est GFR (Non-Af Amer) ml/min BUN/Creatinine Ratio (10-20) Glucose (70-99(Fasting)) mg/dl Calcium (8.5-10.1) mg/dl Magnesium (1.7-2.4) mg/dl Total Bilirubin (0.2-1.0) mg/dl AST (13-39) U/L ALT (7-52) U/L Alkaline Phosphatase (34-104) U/L Ammonia (18-72) umol/L Total Creatine Kinase (30-223) U/L Troponin I High Sens (0-20) pg/ml Total Protein (6.0-8.3) gm/dl Albumin (3.4-5.0) gm/dl Globulin (2.5-4.0) gm/dl Albumin/Globulin Ratio (0.9-2) TSH (0.300-4.500) uIu/ml Urine Color Yellow Urine Appearance Clear (Clear) Urine pH 7.0 (4.5-7.5) Ur Specific [place] 1.017 (1.000-1.030) Urine Protein 2+ H (Negative) Urine Glucose (UA) Negative (Negative) Urine Ketones Negative (Negative) Urine Blood 3+ H (Negative) Urine Nitrite Negative (Negative) Urine Bilirubin Negative (Negative) Urine Urobilinogen Negative (Negative) Ur Leukocyte Esterase Negative (Negative) Urine WBC (Auto) 1-5 (0-5) /hpf Urine RBC (Auto) >30 H (0-4) /hpf U Hyaline Cast (Auto) 1-5 (0-5) /lpf U Epithel Cells (Auto) 10-20 H (0-5) /lpf Urine Bacteria (Auto) Negative (Negative) Urine Opiates Screen Neg (Neg) Ur Methadone, Qual Neg (Neg) Urine Barbiturates Neg (Neg) Ur Phencyclidine (PCP) Neg (Neg) U Amphetamin/Meth Scrn Neg (Neg) MDMA (Ecstasy) Screen Neg (Neg) U Benzodiazepines Scrn Neg (Neg) Ur Cocaine Metabolite Neg (Neg) U Marijuana (THC) Screen Neg (Neg) Ethyl Alcohol mg/dL (<10.0) mg/dl SARS-CoV-2, RNA, NAAT (NEGATIVE) 12/09/21 Range/Units 17:21 WBC (4.8-10.8) K/ul RBC (4.63-6.08) M/uL Hgb (14.0-18.0) g/dl Hct (40.1-51.0) % MCV (80.0-100.0) fL MCH (25.0-34.0) pg MCHC (32.0-36.0) g/dL RDW Std Deviation (36.4-46.3) fL RDW Coeff of Fabiola (11.5-14.5) % Plt Count (130-400) K/uL MPV (9.4-12.4) fL Immature Gran % (Auto) % Neut % (Auto) % Lymph % (Auto) % Casey % (Auto) % Eos % (Auto) % Baso % (Auto) % Neut # (Auto) (1.4-6.5) K/uL Lymph # (Auto) (1.2-3.4) K/uL Casey # (Auto) (0.24-0.82) K/uL Eos # (Auto) (0-0.50) K/uL Baso # (Auto) (0-0.2) K/uL Immature Gran # (Auto) (0.00-0.02) K/uL PT (9.0-12.0) Seconds INR (0.9-1.1) APTT (21.0-31.0) Seconds PTT Ratio VBG pH (7.36-7.41) VBG pCO2 (38-50) mmHg VBG pO2 mmHg VBG HCO3 mmol/L VBG O2 Saturation % VBG Base Excess mEq/L Sodium (136-145) mmol/L Potassium (3.5-5.1) mmol/L Chloride (98-107) mmol/L Carbon Dioxide (21-32) mmol/L Anion Gap (3-11) BUN (6-23) mg/dl Creatinine (0.6-1.4) mg/dl Est Cr Clr Drug Dosing ml/min Est GFR ( Amer) ml/min Est GFR (Non-Af Amer) ml/min BUN/Creatinine Ratio (10-20) Glucose (70-99(Fasting)) mg/dl Calcium (8.5-10.1) mg/dl Magnesium (1.7-2.4) mg/dl Total Bilirubin (0.2-1.0) mg/dl AST (13-39) U/L ALT (7-52) U/L Alkaline Phosphatase (34-104) U/L Ammonia (18-72) umol/L Total Creatine Kinase (30-223) U/L Troponin I High Sens (0-20) pg/ml Total Protein (6.0-8.3) gm/dl Albumin (3.4-5.0) gm/dl Globulin (2.5-4.0) gm/dl Albumin/Globulin Ratio (0.9-2) TSH (0.300-4.500) uIu/ml Urine Color Urine Appearance (Clear) Urine pH (4.5-7.5) Ur Specific [place] (1.000-1.030) Urine Protein (Negative) Urine Glucose (UA) (Negative) Urine Ketones (Negative) Urine Blood (Negative) Urine Nitrite (Negative) Urine Bilirubin (Negative) Urine Urobilinogen (Negative) Ur Leukocyte Esterase (Negative) Urine WBC (Auto) (0-5) /hpf Urine RBC (Auto) (0-4) /hpf U Hyaline Cast (Auto) (0-5) /lpf U Epithel Cells (Auto) (0-5) /lpf Urine Bacteria (Auto) (Negative) Urine Opiates Screen (Neg) Ur Methadone, Qual (Neg) Urine Barbiturates (Neg) Ur Phencyclidine (PCP) (Neg) U Amphetamin/Meth Scrn (Neg) MDMA (Ecstasy) Screen (Neg) U Benzodiazepines Scrn (Neg) Ur Cocaine Metabolite (Neg) U Marijuana (THC) Screen (Neg) Ethyl Alcohol mg/dL (<10.0) mg/dl SARS-CoV-2, RNA, NAAT NEGATIVE (NEGATIVE) Administered Medications Atorvastatin Calcium (Atorvastatin 20 Mg Tab) 20 mg PO HS ANNMARIE Stop: 01/08/22 20:59 Last Admin: 12/09/21 22:05 Dose: 20 mg Documented By: CHRIS Furosemide (Furosemide 40 Mg Tab) 40 mg PO QAM ANNMARIE Stop: 01/09/22 08:59 Last Admin: 12/10/21 07:41 Dose: 40 mg Documented By: MARIELOS Lactulose (Lactulose Syrup 20 Gm/30 Ml Udc) 20 gm PO QID ANNMARIE Stop: 01/08/22 20:59 Last Admin: 12/10/21 07:41 Dose: 20 gm Documented By: Admin: 12/09/21 22:05 Dose: 20 gm Documented By: CHRIS Magnesium Oxide (Magnesium Oxide 400 Mg Tab) 400 mg PO AMHS ANNMARIE Stop: 01/08/22 20:59 Last Admin: 12/10/21 07:42 Dose: 400 mg Documented By: Admin: 12/09/21 22:05 Dose: 400 mg Documented By: CHRIS Metoprolol Succinate (Metoprolol Succ 25mg Ext Rel Tab) 25 mg PO DAILY ANNMARIE Stop: 01/09/22 08:59 Last Admin: 12/10/21 07:42 Dose: 25 mg Documented By: MARIELSO Saccharomyces Boulardii (Saccharomyces Boulardii 250 Mg Cap) 250 mg PO DAILY ANNMARIE Stop: 01/09/22 08:59 Last Admin: 12/10/21 07:42 Dose: 250 mg Documented By: MARIELOS Spironolactone (Spironolactone 25 Mg Tab) 25 mg PO QAM ANNMARIE Stop: 01/09/22 08:59 Last Admin: 12/10/21 07:42 Dose: 25 mg Documented By: MARIELOS Discontinued Medications Sodium Chloride (Nss) 500 mls @ 999 mls/hr IV .Q31M ANNMARIE Stop: 12/09/21 15:15 Last Infusion: 12/09/21 16:16 Dose: 0 mls/hr Documented By: Admin: 12/09/21 15:44 Dose: 999 mls/hr Documented By: ANGUS Sodium Chloride (1/2 Nss) 1,000 mls @ 65 mls/hr IV .[id number] ANNMARIE Stop: 12/11/21 01:16 Last Admin: 12/09/21 21:25 Dose: Not Given Documented By: CHRIS Lactulose (Lactulose Syrup 30 Gm/45 Ml Udp) 30 gm PO NOW STA Stop: 12/09/21 17:01 Last Admin: 12/09/21 18:26 Dose: 30 gm Documented By: ANGUS Imaging Data Radiologist's Impression: Chest X-Ray 12/09/21 14:45 XR chest 1V portable CLINICAL HISTORY: weakness TECHNIQUE: Single frontal radiograph of the chest was obtained. Comparison: Comparison is made to chest radiograph 11/24/2021 FINDINGS: No lines and tubes are seen. The cardiomediastinal silhouette is normal. The matthias ngs are clear. No evidence of pleural effusion or pneumothorax. IMPRESSION: No acute chest disease. ACT 112: Negative or not required by law. Electronically signed by: Naresh Berry M.D. 12/09/2021 4:[address] 12/09/21 14:45 CT head/brain wo con CLINICAL HISTORY: 56 years-old Male with AMS. Acutely altered mental status TECHNIQUE: Multiple axial CT images of the head were obtained without contrast. A dose lowering technique was utilized adhering to the principles of ALARA. COMPARISON: Head CT 08/27/2019 FINDINGS: No acute intracranial hemorrhage, midline shift, intracranial mass, hydrocephalus, territorial ischemia or abnormal extra-axial collection. Mild involutional changes. Cerebral vascular calcifications. The calvarium is intact. The paranasal sinuses, mastoid air cells, and middle ear cavities are clear. IMPRESSION: No acute intracranial abnormality. ACT 112: Negative or not required by law. The above report was generated using voice recognition software. It may contain grammatical, syntax or spelling errors. Electronically signed by: Gerardo Brown M.D. 12/09/2021 3:41 PM Assembler Product Film 12/09/21 14:45 CT K[facility] information security specialist CLINICAL HISTORY: RUQ pain TECHNIQUE: Assembler Product images were obtained for a CT abdomen pelvis. COMPARISON: Comparison is made to CT abdomen pelvis 11/24/2021 FINDINGS/IMPRESSION: Surgical clips are seen in the right upper quadrant. Retained enteric contrast is noted in the colon. No evidence of bowel obstruction is seen. The CT component of the exam was held due to enteric con trast in the colon. If there is concern for right upper quadrant pain, right upper quadrant ultrasound can be performed. ACT 112: Negative or not required by law. Electronically signed by: Naresh Berry M.D. 12/09/2021 4:10 PM Discharge Plan Visit Data Chief Complaint: Lethargic Stated Complaint: LETHARGIC ED Provider: Zay Nelson Discharge Problem: Acute alteration in mental status, Acute hepatic encephalopathy Patient Disposition: Admitted As Inpatient Discharge Instructions Interventions: ED Discharge Assessment Last Done: 12/09/21 18:27
[2021-12-09 15:18] LABS: Basophils # (auto) 0.05 K/uL (0-0.2); Basophils % (auto) 0.6 %; Eosinophils # (auto) 0.18 K/uL (0-0.50); Eosinophils % (auto) 2.2 %; Hemoglobin 13.5 g/dl (14.0-18.0); Immature Granulocytes # (auto) 0.02 K/uL (0.00-0.02); Immature Granulocytes % (auto) 0.2 %; Lymphocytes # (auto) 1.52 K/uL (1.2-3.4); Lymphocytes % (auto) 18.8 %; Mean Corpuscular Hemoglobin 33.5 pg (25.0-34.0); Mean Corpuscular Hgb Conc 35.5 g/dL (32.0-36.0); Mean Corpuscular Volume 94.3 fL (80.0-100.0); Monocytes % (auto) 11.1 %; Neutrophils # (auto) 5.41 K/uL (1.4-6.5); Neutrophils % (auto) 67.1 %; Platelet Count 61 K/uL (130-400); RDW Coefficient of Variation 13.3 % (11.5-14.5); RDW Standard Deviation 46.5 fL (36.4-46.3); Red Blood Count 4.03 M/uL (4.63-6.08); White Blood Count 8.08 K/ul (4.8-10.8)
[2021-12-09 15:35] LABS: Base Excess VBG -3.4 mEq/L; HCO3 VBG 20 mmol/L; Oxygen Saturation VBG < 60.0 %; PCO2 VBG 31 mmHg (38-50); PO2 VBG 32 mmHg; pH VBG 7.42 (7.36-7.41)
--- NOTE | 2021-12-09 15:42 | CT Scan Report ---
CT head/brain wo con CLINICAL HISTORY: 56 years-old Male with AMS. Acutely altered mental status TECHNIQUE: Multiple axial CT images of the head were obtained without contrast. A dose lowering tech nique was utilized adhering to the principles of ALARA. COMPARISON: Head CT 08/27/2019 FINDINGS: No acute intracranial hemorrhage, midline shift, intracranial mass, hydrocephalus, territorial ischem ia or abnormal extra-axial collection. Mild involutional changes. Cerebral vascular calcifications. The calvarium is intact. The paranasal sinuses, mastoid air cells, and middle ear cavities are clear . IMPRESSION: No acute intracranial abnormality. ACT 112: Negative or not required by law. The above report was generated using voice recognition software. It may contain grammatical, syntax o r spelling errors. Electronically signed by: Gerardo Brown M.D. 12/09/2021 3:41 PM
[2021-12-09 15:50] LABS: Troponin I High Sensitivity 7.8 pg/ml (0-20)
[2021-12-09 15:52] LABS: INR 1.3 (0.9-1.1); Partial Thromboplastin Ratio 1.1; Partial Thromboplastin Time 29.2 Seconds (21.0-31.0); Prothrombin Time 13.5 Seconds (9.0-12.0)
[2021-12-09 15:53] LABS: Albumin Globulin Ratio 0.9 (0.9-2); Albumin Level 3.5 gm/dl (3.4-5.0); BUN Creatinine Ratio 16.3 (10-20); Bilirubin,Total 2.1 mg/dl (0.2-1.0); Calcium 9.5 mg/dl (8.5-10.1); Creatinine Clr Calc Pharmacy 78.4 ml/min; Est GFR (African American) 91.9 ml/min; Est GFR (Non-African American) 79.3 ml/min; Globulin 3.8 gm/dl (2.5-4.0); Magnesium 1.8 mg/dl (1.7-2.4); Potassium 4.1 mmol/L (3.5-5.1); Total Protein 7.3 gm/dl (6.0-8.3)
--- NOTE | 2021-12-09 16:12 | CT Scan Report ---
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 COMPARISON: Comparison is made to CT abdomen pelvis 11/24/2021 FINDINGS/IMPRESSION: Surgical clips are seen in the right upper quadrant. Retained enteric contrast i s noted in the colon. No evidence of bowel obstruction is seen. The CT component of the exam was held due to enteric contrast in the colon. If there is concern for right upper quadrant pain, right upper quadrant ultrasound can be performed. ACT 112: Negative or not required by law. Electronically signed by: Naresh Berry M.D. 12/09/2021 4:10 PM
--- NOTE | 2021-12-09 16:43 | XRay Report ---
XR chest 1V portable CLINICAL HISTORY: weakness TECHNIQUE: Single frontal radiograph of the chest was obtained. Comparison: Comparison is made to chest radiograph 11/24/2021 FINDINGS: No lines and tubes are seen. The cardiomediastinal silhouette is normal. The lungs are clear. No evid ence of pleural effusion or pneumothorax. IMPRESSION: No acute chest disease. ACT 112: Negative or not required by law. Electronically signed by: Naresh Berry M.D. 12/09/2021 4:41 PM
--- NOTE | 2021-12-09 16:50 | Electrocardiogram Report ---
Test Reason : Blood Pressure : / mmHG Vent. Rate : 089 BPM Atrial Rate : 089 BPM P-R Int : 152 ms QRS Dur : 078 ms QT Int : 386 ms P-R-T Axes : 035 027 018 degrees QTc Int : 469 ms Normal sinus rhythm Normal ECG When compared with ECG of 24-NOV-2021 10:42, No significant change was found Confirmed by Cachorro Mendoza ([id number]) on 12/09/2021 4:50:24 PM Referred By: Confirmed By:Diaz Mendoza
[2021-12-09] MEDS ORDERED: LACTULOSE SYRUP 30 GM/45 ML UDP PO STA (17:00)
[2021-12-09 17:31] LABS: Appearance Urine Clear (Clear); Bacteria Urine Automated Negative (Negative); Bilirubin Urine Negative (Negative); Blood Urine 3+ (Negative); Color Urine Yellow; Glucose Urine UA Negative (Negative); Ketones Urine Negative (Negative); Leukocyte Esterase Urine Negative (Negative); Nitrite Urine Negative (Negative); Protein Urine 2+ (Negative); RBC Urine Automated >30 /hpf (0-4); Specific Gravity Urine 1.017 (1.000-1.030); Urobilinogen Urine Negative (Negative)
[2021-12-09 17:54] LABS: Amphetamines+Metham, Urine Neg (Neg); Barbiturates, Urine Neg (Neg); Benzodiazepine, Urine Neg (Neg); Cocaine, Urine Neg (Neg); MDMA (Ecstacy), Urine Neg (Neg); Methadone, Urine Neg (Neg); Opiate, Urine Neg (Neg); Phencyclidine, Urine Neg (Neg)
[2021-12-09] MEDS ORDERED: oxyCODONE HCL IR 5 MG TAB (IMMEDIATE RELEASE) PO PRN (18:10)
[2021-12-09] MEDS ORDERED: ACETAMINOPHEN 325 MG TAB PO PRN (18:13)
--- NOTE | 2021-12-09 18:28 | History & Physical Report ---
Date of Service December 09, 2021 Assessment & Plan (1) Hepatic encephalopathy: Plan Likely Hepatic encephalopathy Patient comes in with altered mental status since today morning, missed lactulose yesterday, no bowel movement since yesterday per patient. No trauma history. Admitting labs reviewed, ammonia level elevated at 74. LFT deranged but seems stable compared to prior. Admitting imagings reviewed, CXR and CT head with no acute findings. Tox screen negative. Patient received a dose of lactulose in the ED, continue lactulose 4 times a day with a goal of 3-4 bowel movements for now. If patient does not take p.o. lactulose, then MD needs to be notified for MD lactulose order. Once patient is more alert, can advance diet. Gentle IVF until PO intake established. Hold neuropsychotropic drugs until more alert. Labs and NH3 in AM. Other chronic medical conditions: Liver cirrhosis, HTN, HLD, history of TIA, old SD -->> continue with home meds as and when appropriate. DVT prophylaxis: SCDs, hold heparin Re: thrombocytopenia Full Code. History of Present Illness Chief Complaint: Altered mental status Primary Care Provider: Toby Paz MD 56-year-old male with PMH of hepatic encephalopathy, liver cirrhosis, GERD, chronic lower extremity pain, appendectomy/cholecystectomy, HLD, seasonal allergic rhinitis, HTN, internal hemorrhoids, TIA presented to our ED 12/09 due to complaint of altered mental status and confusion. Per patient's Fiance, patient was at his baseline yesterday night, was sleeping until late noon today on the day of arrival, which is not usually him, when she woke him up patient went to the kitchen thinking that it is bathroom, and when he was redirected to the bathroom, he peed on linen closet thinking that it was the toilet bowel. Pt appeared confused and all he wanted to do was go to bed and sleep. Pt was AOx1 at bedside exam, he complains of Rt belly pain and BLE pain which are chronic per his Fiance. Both nontender during exam. Pt stated that he didn't take his lactulose yesterday and didn't have any BM yesterday. Pt not very helpful w/ history due to his confused status, hence history were either confirmed with his fiance or taken from his fiance and from chart review. Pt has not smoked tobacco and drank any alcoholic beverages "in a while" per fiance. No history of recreational drug use. Full Code. Meds reviewed with patient's fiance. Allergies Allergy/AdvReac Type Severity Reaction Status Date / Time No Known Drug Allergies Allergy Unknown Verified 11/24/21 15:34 Home Medications Medication Instructions Recorded Confirmed Type atorvastatin 20 mg tablet 20 mg PO HS 01/18/18 12/09/21 History pantoprazole 40 mg tablet,delayed 40 mg PO QAM 07/26/18 12/09/21 History release Saccharomyces boulardii 250 mg 250 mg PO DAILY #10 caps 06/07/21 12/09/21 Rx capsule (Florastor) cyclobenzaprine 10 mg tablet 10 mg PO HS 11/24/21 12/09/21 History furosemide 20 mg tablet 40 mg PO QAM 11/24/21 12/09/21 History lactulose 10 gram/15 mL oral 30 ml PO QID 11/24/21 12/09/21 History solution magnesium oxide 400 mg (241.3 mg 400 mg PO AMHS 11/24/21 12/09/21 History magnesium) tablet metoprolol succinate 25 mg 25 mg PO DAILY 11/24/21 12/09/21 History tablet,extended release 24 hr oxycodone 5 mg tablet 5 mg PO Q4 PRN Pain, Severe 11/24/21 12/09/21 History spironolactone 25 mg tablet 25 mg PO QAM 11/24/21 12/09/21 History sulfamethoxazole 800 1 tab PO BID 12/09/21 12/09/21 History mg-trimethoprim 160 mg tablet Past Med/Surg History Medical History Abnormal PFT Acid reflux Cirrhosis of liver Elevated LFTs GERD (gastroesophageal reflux disease) H/O angioedema ongoing, follows with allergy HLD (hyperlipidemia) HTN (hypertension) Hyperlipidemia Hypertension Nausea Thrombocytopenia UTI (urinary tract infection) Surgical History History of appendectomy History of appendectomy History of bowel resection 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 History of colonoscopy History of esophagogastroduodenoscopy (EGD) History of tooth extraction Family History Father Hearing loss Hypertension Stroke Heart disease Other No pertinent family history in first degree relatives Denies family history of No family history of adverse response to anesthesia No family history of bleeding disorder Allergies Asthma Social History Smoking Status: Never smoker Tobacco Type: Cigarettes Cigarettes Per Day: 1-2; Second Hand Exposure: Yes; Hx Alcohol Use: No Hx Substance Use: No Preferred Language: [place] Communication Ability: Effective 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 Physical Exam Physical Exam: GENERAL: Alert and oriented x1. NAD, on RA. HEENT: No pallor, no icterus. Pupils equal, round and reactive to light. Oral mucosa moist. NECK: No JVD, no neck masses. HEART: S1 and S2 heard. Regular rate and rhythm. No murmur, no gallop. RESPIRATORY SYSTEM: Normal AP diameter. No accessory muscle use. No wheezing, no crackles. ABDOMEN: Soft, bowel sounds present, nontender, no distention. mid and Rt paramedian healed surgical scar. CENTRAL NERVOUS SYSTEM: No facial droop. Speech is clear. Obeys simple commands. Moves extremities. EXTREMITIES: No edema, no erythema seen. Non tender. Results & Data Results & Data ([facility]) Vital Signs (Past 12 Hours) Vital Signs Temp Pulse Pulse Resp BP BP Pulse Ox 12/09/21 15:44 72 20 148/87 H 95 12/09/21 14:45 97 12/09/21 14:42 89 20 97 12/09/21 14:42 12/09/21 14:38 37.0 C 89 20 145/78 H 98 O2 Del Method 12/09/21 15:44 Room Air 12/09/21 14:45 Room Air 12/09/21 14:42 Room Air 12/09/21 14:42 Room Air 12/09/21 14:38 Room Air
[2021-12-09] MEDS ORDERED: SODIUM CHLORIDE 0.45 % 1,000 ML IV SCH (18:30)
[2021-12-09] MEDS ORDERED: ATORVASTATIN 20 MG TAB PO SCH (21:00)
[2021-12-09] MEDS: MAGNESIUM OXIDE 400 MG TAB PO SCH (22:05)
[2021-12-09] MEDS: LACTULOSE SYRUP 20 GM/30 ML UDC PO SCH (22:05)
[2021-12-10 06:26] LABS: Hematocrit (blood only) 34.2 % (40.1-51.0); Hemoglobin 12.2 g/dl (14.0-18.0); Mean Corpuscular Hemoglobin 33.6 pg (25.0-34.0); Mean Corpuscular Hgb Conc 35.7 g/dL (32.0-36.0); Mean Corpuscular Volume 94.2 fL (80.0-100.0); Mean Platelet Volume 12.6 fL (9.4-12.4); Platelet Count 57 K/uL (130-400); RDW Coefficient of Variation 13.2 % (11.5-14.5); RDW Standard Deviation 45.8 fL (36.4-46.3); Red Blood Count 3.63 M/uL (4.63-6.08); White Blood Count 7.06 K/ul (4.8-10.8)
[2021-12-10 07:08] LABS: BUN Creatinine Ratio 15.3 (10-20); Calcium 8.9 mg/dl (8.5-10.1); Creatinine Clr Calc Pharmacy 83.2 ml/min; Est GFR (African American) 98.8 ml/min; Est GFR (Non-African American) 85.2 ml/min; Magnesium 1.6 mg/dl (1.7-2.4); Phosphorus 3.9 mg/dl (2.5-4.9); Potassium 3.8 mmol/L (3.5-5.1)
[2021-12-10] MEDS: LACTULOSE SYRUP 20 GM/30 ML UDC PO SCH ×2 (07:41→12:48)
[2021-12-10] MEDS: MAGNESIUM OXIDE 400 MG TAB PO SCH (07:42)
[2021-12-10] MEDS ORDERED: FUROSEMIDE 40 MG TAB PO SCH (09:00)
[2021-12-10] MEDS ORDERED: SACCHAROMYCES BOULARDII 250 MG CAP PO SCH (09:00)
[2021-12-10] MEDS ORDERED: METOPROLOL SUCC 25MG EXT REL TAB PO SCH (09:00)
[2021-12-10] MEDS ORDERED: SPIRONOLACTONE 25 MG TAB PO SCH (09:00)
[2021-12-10] MEDS ORDERED: PANTOprazole 40 MG TAB PO SCH (09:00)
--- NOTE | 2021-12-10 12:35 | Discharge Summary ---
Discharge Summary Date of Service December 10, 2021 Notes For Next Care Provider General follow-up with patient to ensure he is still doing well after discharge from the hospital His admission was likely 2/2 noncompliance with lactulose Medication Changes From Visit no changesPhysical Exam Physical Exam: GENERAL: Alert and oriented x1. NAD, on RA. HEENT: No pallor, no icterus. Pupils equal, round and reactive to light. Oral mucosa moist. NECK: No JVD, no neck masses. HEART: S1 and S2 heard. Regular rate and rhythm. No murmur, no gallop. RESPIRATORY SYSTEM: Normal AP diameter. No accessory muscle use. No wheezing, no crackles. ABDOMEN: Soft, bowel sounds present,nontender, no distention. mid and Rt paramedian healed surgical scar. CENTRAL NERVOUS SYSTEM: No facial droop. Speech is clear. Obeys simple commands. Moves extremities. EXTREMITIES: No edema, no erythema seen. Non tender. Admission HPI Per Admitting Provider 56-year-old male with PMH of hepatic encephalopathy, liver cirrhosis, GERD, chronic lower extremity pain, appendectomy/cholecystectomy, HLD, seasonal allergic rhinitis, HTN, internal hemorrhoids, TIA presented to our ED 12/09 due to complaint of altered mental status and confusion. Per patient's Fiance, patient was at his baseline yesterday night, was sleeping until late noon today on the day of arrival, which is not usually him, when she woke him up patient went to the kitchen thinking that it is bathroom, and when he was redirected to the bathroom, he peed on linen closet thinking that it was the toilet bowel. Pt appeared confused and all he wanted to do was go to bed and sleep. Pt was AOx1 at bedside exam, he complains of Rt belly pain and BLE pain which are chronic per his Fiance. Both nontender during exam. Pt stated that he didn't take his lactulose yesterday and didn't have any BM yesterday. Pt not very helpful w/ history due to his confused status, hence history were either confirmed with his fiance or taken from his fiance and from chart review. Pt has not smoked tobacco and drank any alcoholic beverages "in a while" per fiance. No history of recreational drug use. Full Code. Meds reviewed with patient's fiance. Admission Exam Per Admitting Provider Physical Exam Physical Exam: GENERAL: Alert and oriented x1. NAD, on RA. HEENT: No pallor, no icterus. Pupils equal, round and reactive to light. Oral mucosa moist. NECK: No JVD, no neck masses. HEART: S1 and S2 heard. Regular rate and rhythm. No murmur, no gallop. RESPIRATORY SYSTEM: Normal AP diameter. No accessory muscle use. No wheezing, no crackles. ABDOMEN: Soft, bowel sounds present,nontender, no distention. mid and Rt paramedian healed surgical scar. CENTRAL NERVOUS SYSTEM: No facial droop. Speech is clear. Obeys simple commands. Moves extremities. EXTREMITIES: No edema, no erythema seen. Non tender. Principal Dx & Hospital Course #1 = Principal Diagnosis (1) Acute hepatic encephalopathy: Plan 56 yo patient with known history of cirrhosis presented by EMS when family found him confused and slow to respond to questions in his bed. There were no signs of trauma. In the ER he was treated wtih lactulose, which he had missed at home. Workup included a CBC with WBC 8, H/H 13.5/38.0, PLT 61. INR 1.3, VBG was 7.42/31/32, Na 140, K 4.1, Cl 114, HCO3 17, BUN 17, Cr 1.04, gluc 81. Tot bilirubin was 2.1, AST 64, ALT 45. Ammonia was 74. Head CT revealed no acute intracranial findings. CXR revealed no acute chest disease. Overnight he had 5 documented bowel movements. The following day he was feeling well, and per primary RN, reported that he would be leaving against medical advice if he was not discharged. On examination he was oriented and at baseline abilities. Abdomen was nontender, nondistended and he was tolerating PO. He notably had ammonia of 77 and Mag of 1.6 on discharge. He is on magnesium supplementation which he was ordered to continue. A followup Magnesium level may be warranted on followup with PCP next week. He was discharged in stable condition. Discharge Exam CONSTITUTIONAL: WNWD, vitals as above, generally well-appearing, NAD EYES: normal conjunctivae, no scleral icterus, ENT: external ear and nose normal, MMM NECK: trachea midline, RESPIRATORY: clear to auscultation bilaterally, no crackles, rales or wheezes, normal respiratory effort CARDIOVASCULAR: regular rate and rhythm, S1 and 2 heard without murmurs, gallops or rubs, no JVD, no peripheral edema CHEST: inspection of chest was normal GASTROINTESTINAL: soft, nontender, ND, no guarding MUSCULOSKELETAL: strength 5/5 throughout, head is normocephalic and atraumatic, neck supple, normal palpation of chest wall without tenderness SKIN: warm and dry, NEUROLOGIC: CN 2-12 grossly intact, no sensory deficit, normal cognition, normal speech, no tremor PSYCHIATRIC: alert cooperative and oriented to person, place and time. Euthymic mood, makes good eye contact, language grossly intact, recent and remote memory grossly intact. Updated Medication List Medication Instructions Recorded Confirmed Type atorvastatin 20 mg tablet 20 mg PO HS 01/18/18 12/09/21 History pantoprazole 40 mg tablet,delayed 40 mg PO QAM 07/26/18 12/09/21 History release Saccharomyces boulardii 250 mg 250 mg PO DAILY #10 caps 06/07/21 12/09/21 Rx capsule (Florastor) cyclobenzaprine 10 mg tablet 10 mg PO HS 11/24/21 12/09/21 History furosemide 20 mg tablet 40 mg PO QAM 11/24/21 12/09/21 History lactulose 10 gram/15 mL oral 30 ml PO QID 11/24/21 12/09/21 History solution magnesium oxide 400 mg (241.3 mg 400 mg PO AMHS 11/24/21 12/09/21 History magnesium) tablet metoprolol succinate 25 mg 25 mg PO DAILY 11/24/21 12/09/21 History tablet,extended release 24 hr oxycodone 5 mg tablet 5 mg PO Q4 PRN Pain, Severe 11/24/21 12/09/21 History spironolactone 25 mg tablet 25 mg PO QAM 11/24/21 12/09/21 History Hospital Stay Data Consultations 12/09/21 17:40 ED Decision to Admit Stat Diagnostic Imagining Performed 12/09/21 14:45 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 It is recommended that you follow-up with your primary care provider within one week of hospital discharge to examine your abdomen and ensure everything is going well since returning home. It was a pleasure taking care of you! Please call if you have any questions or problems. You can reach a [facility] hospitalist on duty at [facility] 24 hours a day by calling [phone]. Take care of yourself. Serene Malave, [facility] South [facility] Francisco Medical Centerist Total Time Total Time Spent Total Time Spent (In Minutes): 60
== END 2021-12-10 13:57 | disposition home or self-care (01) | DRG 443 ==
LOC: ED 14:31 → 2E 17:46 → SUATTDRO 17:46 → 2E 18:27

== ENCOUNTER 2022-02-22 19:19 | Inpatient (IN) ==
[2022-02-22 19:48] LABS: Basophils # (auto) 0.04 K/uL (0-0.2); Basophils % (auto) 0.3 %; Eosinophils # (auto) 0.08 K/uL (0-0.50); Eosinophils % (auto) 0.7 %; Hematocrit (blood only) 35.2 % (40.1-51.0); Hemoglobin 12.3 g/dl (14.0-18.0); Immature Granulocytes # (auto) 0.04 K/uL (0.00-0.02); Immature Granulocytes % (auto) 0.3 %; Lymphocytes # (auto) 1.61 K/uL (1.2-3.4); Lymphocytes % (auto) 13.3 %; Mean Corpuscular Hemoglobin 34.2 pg (25.0-34.0); Mean Corpuscular Hgb Conc 34.9 g/dL (32.0-36.0); Mean Corpuscular Volume 97.8 fL (80.0-100.0); Mean Platelet Volume 12.2 fL (9.4-12.4); Monocytes # (auto) 1.41 K/uL (0.24-0.82); Monocytes % (auto) 11.6 %; Neutrophils # (auto) 8.97 K/uL (1.4-6.5); Neutrophils % (auto) 73.8 %; Platelet Count 74 K/uL (130-400); RDW Coefficient of Variation 14.4 % (11.5-14.5); RDW Standard Deviation 51.8 fL (36.4-46.3); White Blood Count 12.15 K/ul (4.8-10.8)
--- NOTE | 2022-02-22 19:55 | Emergency Department Note ---
Impression & Plan Acute alteration in mental status, Thrombocytopenia, Bilateral arm weakness ED Provider Note NAME: MARLEEN MELTON AGE: 56 SEX: M : 1965 ARRIVES VIA: Ambulance INFORMANT: Patient, EMS, the patient's significant other ED PROVIDER(S): Zay Nelson DO CHIEF COMPLAINT: Altered mental status HPI: The patient is a 56-year-old male who presented to the emergency department by ambulance for an evaluation of altered mental status. The patient at this time cannot answer any questions and appears to be very confused. His significant other did come to the emergency department with him and offers most of the history. The patient was working on a [employer] vehicle earlier in the day. The last time the patient saw or talk to his significant other was around 4 PM. His significant other states that he has not been seen by the significant other since around 4 to 4:30 PM today. She states that he had no complaints of chest pain or trouble breathing. He denied having any headaches at that time. He did complain of some right upper extremity discomfort. According to his significant other he has been compliant with his outpatient medications and there was no trauma that he was reporting. The patient then st arted having an episode with his right upper extremity first that the describes as a clenched fist it then spread to the left upper extremity and the patient kept his right leg very rigid and straight. There is no reported seizure activity. Ever since that time the patient has not been able to answer questions. The patient's significant other called 911 and attempt to have him seen. Blood sugar prior to arrival was not hypoglycemic. The patient does have a history of alcohol use in the past but according to his significant other he has not had alcohol use in approximately 1 month. ROS: See above HPI for pertinent positives & negatives. A total of 10 systems reviewed and were otherwise negative. PAST MEDICAL HISTORY: See Below PAST SURGICAL HISTORY: See Below FAMILY HISTORY: See Below SOCIAL HISTORY: See Below HOME MEDICATIONS: See Below ALLERGIES: See Below VITALS: See Below PHYSICAL EXAMINATION: GENERAL: Patient is obtunded. He does not follow commands or answer questions. EYES: The conjunctivae are clear. The pupils are constricted and minimally reactive to light. EARS, NOSE, MOUTH AND THROAT: The nose is without any evidence of any deformity. Mucous membranes are moist. The tongue deviates to the right. NECK: The neck is nontender and supple. RESPIRATORY: Normal respiratory effort is noted there is no evidence of wheezing rhonchi or rales CARDIOVASCULAR: Regular rate and rhythm noted there no murmurs rubs or gallops normal S1 normal S2. GASTROINTESTINAL: Abdomen is soft and mildly distended. There is tenderness to palpation. There is no specific guarding. MUSCULOSKELETAL/EXTREMITIES: There is no evidence of gross deformity full range of motion is noted in the hips and shoulders. SKIN: Skin is warm and dry. There is no significant edema. NEUROLOGIC: Patient is obtunded and not answering questions. He does not follow commands. Patellar tendon reflexes are 3+ bilaterally. MEDICAL DECISION MAKING: The patient is a 56-year-old male who does have a history of cirrhosis who pr esented to the emergency department for an evaluation of altered mental status. The patient was very confused and lethargic when he first arrived in the emergency department. There was no history of trauma. The patient had a very difficult exam initially. He did have tongue deviation to the right. He had no obvious seizure activity but the patient's significant other does describe an episode that could be consistent with seizure. I discussed the patient's laboratory and radiographic studies with him and his significant other. The patient was reevaluated multiple times. On reevaluation the patient did seem to improve a good bit. It is possible this could be consistent with a postictal phase and the patient actually had a seizure. I discussed the patient's condition with the on-call [facility] hospitalist. They have agreed to evaluate the patient in the emergency department for further management and disposition. Patient was not made a stroke alert because he would not be a candidate for thrombolytics given his history of cirrhosis and thrombocytopenia. His last known well time did appear to be just outside the 3-hour window. He was still inside a 24-hour window for the possibility of a large vessel occlusion so CT angiography of the head neck and chest were obtained. There is no signs of large vessel occlusion. Triage Nursing notes reviewed. Prior medical records reviewed Vital Signs: reviewed and remarkable for no significant abnormalities Differential diagnosis: Infection, hypoglycemia, electrolyte abnormalities, overdose, toxicologic, cardiac sources, intracerebral event, neurologic, trauma, as well as other pathologies. ER treatment provided: See below Diagnostics interpreted by me: ECG: EKG was obtained in the emergency department. My interpretation is sinus tachycardia 109 bpm. There was no ectopy. There was no acute ST segment abnormalities noted. This was compared to a tracing from December 09, 2021. No changes were noted. Cardiac Monitoring: An order was placed for continuous cardiac monitoring. The monitor shows a rate of 91 bpm with sinus rhythm. Laboratory studies: As stated above and show below. Imaging studies: See below Consultation(s): I discussed this case with Dr. 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 History of colonoscopy History of esophagogastroduodenoscopy (EGD) History of tooth extraction Family History Father Hearing loss Hypertension Stroke Heart disease Other No pertinent family history in first degree relatives Denies family history of No family history of adverse response to anesthesia No family history of bleeding disorder Allergies Asthma Social History Smoking Status: Former smoker Tobacco Type: Cigarettes Cigarettes Per Day: 1-2; Second Hand Exposure: No; Do You Dip or Chew Tobacco: No; Tobacco Cessation Education Requested by Patient: No Hx Alcohol Use: No Hx Substance Use: No Preferred Language: Swedish Communication Ability: Effective Gore Maker Required: No Beliefs That Will Affect Care: None marital status: Current Living Situation: Spouse Current Living Situation Comment: LIVES WITH GIRLFRIEND current occupational status: 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 Other Information That Helps Us Care for You: No Feels Safe at Home: Yes Safety Concerns: Feels Safe At This Time Assistive Devices: None Allergies Allergies Allergy/AdvReac Type Severity Reaction Status Date / Time No Known Drug Allergies Allergy Unknown Verified 11/24/21 15:34 Home Meds Home Medications Medication Instructions Recorded Confirmed atorvastatin 20 mg tablet 20 mg PO HS 01/18/18 12/09/21 pantoprazole 40 mg tablet,delayed 40 mg PO QAM 07/26/18 12/09/21 release lactulose 10 gram/15 mL oral 30 ml PO QID 11/24/21 12/09/21 solution magnesium oxide 400 mg (241.3 mg 400 mg PO AMHS 11/24/21 12/09/21 magnesium) tablet furosemide 40 mg tablet 40 mg PO DAILY 02/23/22 02/23/22 gabapentin 100 mg capsule 100 mg PO TID 02/23/22 02/23/22 rifaximin 550 mg tablet (Xifaxan) 550 mg PO BID 02/23/22 02/23/22 spironolactone 100 mg tablet 100 mg PO DAILY 02/23/22 02/23/22 Previous Rx's Medication Instructions Recorded Saccharomyces boulardii 250 mg 250 mg PO DAILY #10 caps 06/07/21 capsule (Florastor) oxycodone 5 mg tablet 5 mg PO Q6H PRN Pain, Severe #3 02/23/22 tabs Results & Data (ED) Vital Signs Vital Signs - 24 hr 02/22/22 19:41 02/22/22 19:11 02/22/22 20:35 Temperature 37 C Temperature Source Oral Pulse Rate 99 H Pulse Rate [Apical] 91 H Respiratory Rate 18 16 Blood Pressure 148/96 H Blood Pressure [Right Arm] 123/79 Blood Pressure Mean 113 Blood Pressure Mean [Right Arm] 93 Pulse Oximetry 95 97 97 Oxygen Delivery Method Room Air Oxygen Flow Rate 0 Sepsis Recent Fever Within 48 Hours No Sepsis New/Unexplained Change in Mental Status Yes Sepsis Action Taken by Nursing No Action Required 02/22/22 22:00 Temperature Temperature Source Pulse Rate Pulse Rate [Apical] 74 Respiratory Rate 18 Blood Pressure Blood Pressure [Right Arm] 130/78 Blood Pressure Mean Blood Pressure Mean [Right Arm] 95 Pulse Oximetry 95 Oxygen Delivery Method Room Air Oxygen Flow Rate Sepsis Recent Fever Within 48 Hours Sepsis New/Unexplained Change in Mental Status Sepsis Action Taken by Residential Medications Current Medication List: was personally reviewed by me Laboratory Data Attestation: I reviewed the patient's lab results. Result diagrams: 02/23/22 07:25 02/23/22 07:25 Lab Results 02/22/22 02/22/22 02/22/22 Range/Units 19:31 19:31 19:31 WBC 12.15 H (4.8-10.8) K/ul RBC 3.60 L (4.63-6.08) M/uL Hgb 12.3 L (14.0-18.0) g/dl Hct 35.2 L (40.1-51.0) % MCV 97.8 (80.0-100.0) fL MCH 34.2 H (25.0-34.0) pg MCHC 34.9 (32.0-36.0) g/dL RDW Std Deviation 51.8 H (36.4-46.3) fL RDW Coeff of Fabiola 14.4 (11.5-14.5) % Plt Count 74 L (130-400) K/uL MPV 12.2 (9.4-12.4) fL Immature Gran % (Auto) 0.3 % Neut % (Auto) 73.8 % Lymph % (Auto) 13.3 % Harvey % (Auto) 11.6 % Eos % (Auto) 0.7 % Baso % (Auto) 0.3 % Neut # (Auto) 8.97 H (1.4-6.5) K/uL Lymph # (Auto) 1.61 (1.2-3.4) K/uL Harvey # (Auto) 1.41 H (0.24-0.82) K/uL Eos # (Auto) 0.08 (0-0.50) K/uL Baso # (Auto) 0.04 (0-0.2) K/uL Immature Gran # (Auto) 0.04 H (0.00-0.02) K/uL PT 13.8 H (9.0-12.0) Seconds INR 1.3 H (0.9-1.1) APTT 25.0 (21.0-31.0) Seconds PTT Ratio 0.9 VBG pH (7.36-7.41) VBG pCO2 (38-50) mmHg VBG pO2 mmHg VBG HCO3 mmol/L VBG O2 Saturation % VBG Base Excess mEq/L Sodium 140 (136-145) mmol/L Potassium 3.8 (3.5-5.1) mmol/L Chloride 112 H (98-107) mmol/L Carbon Dioxide 20 L (21-32) mmol/L Anion Gap 8 (3-11) BUN 23 (6-23) mg/dl Creatinine 1.06 (0.6-1.4) mg/dl Est Cr Clr Drug Dosing 76.9 ml/min Est GFR ( Amer) 89.9 ml/min Est GFR (Non-Af Amer) 77.5 ml/min BUN/Creatinine Ratio 21.7 H (10-20) Glucose 106 H (70-99(Fasting)) mg/dl POC Glucose (70-99) mg/dl Osmolality (280-300) mOsm/kg Lactate (0.4-2.0) mmol/L Calcium 8.8 (8.5-10.1) mg/dl Magnesium 1.7 (1.7-2.4) mg/dl Total Bilirubin 2.0 H (0.2-1.0) mg/dl Direct Bilirubin (0-0.2) mg/dl AST 65 H (13-39) U/L ALT 52 (7-52) U/L Alkaline Phosphatase 102 (34-104) U/L Ammonia (18-72) umol/L Troponin I High Sens 12.9 D (0-20) pg/ml Total Protein 6.8 (6.0-8.3) gm/dl Albumin 3.5 (3.4-5.0) gm/dl Globulin 3.3 (2.5-4.0) gm/dl Albumin/Globulin Ratio 1.1 (0.9-2) TSH (0.300-4.500) uIu/ml Prolactin ng/ml Urine Color Urine Appearance (Clear) Urine pH (4.5-7.5) Ur Specific [place] (1.000-1.030) Urine Protein (Negative) Urine Glucose (UA) (Negative) Urine Ketones (Negative) Urine Blood (Negative) Urine Nitrite (Negative) Urine Bilirubin (Negative) Urine Urobilinogen (Negative) Ur Leukocyte Esterase (Negative) Urine WBC (Auto) (0-5) /hpf Urine RBC (Auto) (0-4) /hpf U Hyaline Cast (Auto) (0-5) /lpf U Epithel Cells (Auto) (0-5) /lpf Urine Bacteria (Auto) (Negative) Urine Opiates Screen (Neg) Ur Methadone, Qual (Neg) Urine Barbiturates (Neg) Ur Phencyclidine (PCP) (Neg) U Amphetamin/Meth Scrn (Neg) MDMA (Ecstasy) Screen (Neg) U Benzodiazepines Scrn (Neg) Ur Cocaine Metabolite (Neg) U Marijuana (THC) Screen (Neg) Ethyl Alcohol mg/dL (<10.0) mg/dl 02/22/22 02/22/22 02/22/22 Range/Units 19:31 19:39 20:31 WBC (4.8-10.8) K/ul RBC (4.63-6.08) M/uL Hgb (14.0-18.0) g/dl Hct (40.1-51.0) % MCV (80.0-100.0) fL MCH (25.0-34.0) pg MCHC (32.0-36.0) g/dL RDW Std Deviation (36.4-46.3) fL RDW Coeff of Fabiola (11.5-14.5) % Plt Count (130-400) K/uL MPV (9.4-12.4) fL Immature Gran % (Auto) % Neut % (Auto) % Lymph % (Auto) % Harvey % (Auto) % Eos % (Auto) % Baso % (Auto) % Neut # (Auto) (1.4-6.5) K/uL Lymph # (Auto) (1.2-3.4) K/uL Harvey # (Auto) (0.24-0.82) K/uL Eos # (Auto) (0-0.50) K/uL Baso # (Auto) (0-0.2) K/uL Immature Gran # (Auto) (0.00-0.02) K/uL PT (9.0-12.0) Seconds INR (0.9-1.1) APTT (21.0-31.0) Seconds PTT Ratio VBG pH (7.36-7.41) VBG pCO2 (38-50) mmHg VBG pO2 mmHg VBG HCO3 mmol/L VBG O2 Saturation % VBG Base Excess mEq/L Sodium (136-145) mmol/L Potassium (3.5-5.1) mmol/L Chloride (98-107) mmol/L Carbon Dioxide (21-32) mmol/L Anion Gap (3-11) BUN (6-23) mg/dl Creatinine (0.6-1.4) mg/dl Est Cr Clr Drug Dosing ml/min Est GFR ( Amer) ml/min Est GFR (Non-Af Amer) ml/min BUN/Creatinine Ratio (10-20) Glucose (70-99(Fasting)) mg/dl POC Glucose 113 H (70-99) mg/dl Osmolality (280-300) mOsm/kg Lactate (0.4-2.0) mmol/L Calcium (8.5-10.1) mg/dl Magnesium (1.7-2.4) mg/dl Total Bilirubin (0.2-1.0) mg/dl Direct Bilirubin (0-0.2) mg/dl AST (13-39) U/L ALT (7-52) U/L Alkaline Phosphatase (34-104) U/L Ammonia (18-72) umol/L Troponin I High Sens (0-20) pg/ml Total Protein (6.0-8.3) gm/dl Albumin (3.4-5.0) gm/dl Globulin (2.5-4.0) gm/dl Albumin/Globulin Ratio (0.9-2) TSH 1.096 (0.300-4.500) uIu/ml Prolactin ng/ml Urine Color Urine Appearance (Clear) Urine pH (4.5-7.5) Ur Specific [place] (1.000-1.030) Urine Protein (Negative) Urine Glucose (UA) (Negative) Urine Ketones (Negative) Urine Blood (Negative) Urine Nitrite (Negative) Urine Bilirubin (Negative) Urine Urobilinogen (Negative) Ur Leukocyte Esterase (Negative) Urine WBC (Auto) (0-5) /hpf Urine RBC (Auto) (0-4) /hpf U Hyaline Cast (Auto) (0-5) /lpf U Epithel Cells (Auto) (0-5) /lpf Urine Bacteria (Auto) (Negative) Urine Opiates Screen (Neg) Ur Methadone, Qual (Neg) Urine Barbiturates (Neg) Ur Phencyclidine (PCP) (Neg) U Amphetamin/Meth Scrn (Neg) MDMA (Ecstasy) Screen (Neg) U Benzodiazepines Scrn (Neg) Ur Cocaine Metabolite (Neg) U Marijuana (THC) Screen (Neg) Ethyl Alcohol mg/dL < 10.0 (<10.0) mg/dl 02/22/22 02/22/22 02/22/22 Range/Units 20:31 20:31 20:31 WBC (4.8-10.8) K/ul RBC (4.63-6.08) M/uL Hgb (14.0-18.0) g/dl Hct (40.1-51.0) % MCV (80.0-100.0) fL MCH (25.0-34.0) pg MCHC (32.0-36.0) g/dL RDW Std Deviation (36.4-46.3) fL RDW Coeff of Fabiola (11.5-14.5) % Plt Count (130-400) K/uL MPV (9.4-12.4) fL Immature Gran % (Auto) % Neut % (Auto) % Lymph % (Auto) % Harvey % (Auto) % Eos % (Auto) % Baso % (Auto) % Neut # (Auto) (1.4-6.5) K/uL Lymph # (Auto) (1.2-3.4) K/uL Harvey # (Auto) (0.24-0.82) K/uL Eos # (Auto) (0-0.50) K/uL Baso # (Auto) (0-0.2) K/uL Immature Gran # (Auto) (0.00-0.02) K/uL PT (9.0-12.0) Seconds INR (0.9-1.1) APTT (21.0-31.0) Seconds PTT Ratio VBG pH 7.36 (7.36-7.41) VBG pCO2 39 (38-50) mmHg VBG pO2 31 mmHg VBG HCO3 22 mmol/L VBG O2 Saturation < 60.0 % VBG Base Excess -3.1 mEq/L Sodium (136-145) mmol/L Potassium (3.5-5.1) mmol/L Chloride (98-107) mmol/L Carbon Dioxide (21-32) mmol/L Anion Gap (3-11) BUN (6-23) mg/dl Creatinine (0.6-1.4) mg/dl Est Cr Clr Drug Dosing ml/min Est GFR ( Amer) ml/min Est GFR (Non-Af Amer) ml/min BUN/Creatinine Ratio (10-20) Glucose (70-99(Fasting)) mg/dl POC Glucose (70-99) mg/dl Osmolality (280-300) mOsm/kg Lactate (0.4-2.0) mmol/L Calcium (8.5-10.1) mg/dl Magnesium (1.7-2.4) mg/dl Total Bilirubin (0.2-1.0) mg/dl Direct Bilirubin 0.4 H (0-0.2) mg/dl AST (13-39) U/L ALT (7-52) U/L Alkaline Phosphatase (34-104) U/L Ammonia 39.0 (18-72) umol/L Troponin I High Sens 15.6 (0-20) pg/ml Total Protein (6.0-8.3) gm/dl Albumin (3.4-5.0) gm/dl Globulin (2.5-4.0) gm/dl Albumin/Globulin Ratio (0.9-2) TSH (0.300-4.500) uIu/ml Prolactin ng/ml Urine Color Urine Appearance (Clear) Urine pH (4.5-7.5) Ur Specific [place] (1.000-1.030) Urine Protein (Negative) Urine Glucose (UA) (Negative) Urine Ketones (Negative) Urine Blood (Negative) Urine Nitrite (Negative) Urine Bilirubin (Negative) Urine Urobilinogen (Negative) Ur Leukocyte Esterase (Negative) Urine WBC (Auto) (0-5) /hpf Urine RBC (Auto) (0-4) /hpf U Hyaline Cast (Auto) (0-5) /lpf U Epithel Cells (Auto) (0-5) /lpf Urine Bacteria (Auto) (Negative) Urine Opiates Screen (Neg) Ur Methadone, Qual (Neg) Urine Barbiturates (Neg) Ur Phencyclidine (PCP) (Neg) U Amphetamin/Meth Scrn (Neg) MDMA (Ecstasy) Screen (Neg) U Benzodiazepines Scrn (Neg) Ur Cocaine Metabolite (Neg) U Marijuana (THC) Screen (Neg) Ethyl Alcohol mg/dL (<10.0) mg/dl 02/22/22 02/22/22 02/22/22 Range/Units 20:31 20:31 20:31 WBC (4.8-10.8) K/ul RBC (4.63-6.08) M/uL Hgb (14.0-18.0) g/dl Hct (40.1-51.0) % MCV (80.0-100.0) fL MCH (25.0-34.0) pg MCHC (32.0-36.0) g/dL RDW Std Deviation (36.4-46.3) fL RDW Coeff of Fabiola (11.5-14.5) % Plt Count (130-400) K/uL MPV (9.4-12.4) fL Immature Gran % (Auto) % Neut % (Auto) % Lymph % (Auto) % Harvey % (Auto) % Eos % (Auto) % Baso % (Auto) % Neut # (Auto) (1.4-6.5) K/uL Lymph # (Auto) (1.2-3.4) K/uL Harvey # (Auto) (0.24-0.82) K/uL Eos # (Auto) (0-0.50) K/uL Baso # (Auto) (0-0.2) K/uL Immature Gran # (Auto) (0.00-0.02) K/uL PT (9.0-12.0) Seconds INR (0.9-1.1) APTT (21.0-31.0) Seconds PTT Ratio VBG pH (7.36-7.41) VBG pCO2 (38-50) mmHg VBG pO2 mmHg VBG HCO3 mmol/L VBG O2 Saturation % VBG Base Excess mEq/L Sodium (136-145) mmol/L Potassium (3.5-5.1) mmol/L Chloride (98-107) mmol/L Carbon Dioxide (21-32) mmol/L Anion Gap (3-11) BUN (6-23) mg/dl Creatinine (0.6-1.4) mg/dl Est Cr Clr Drug Dosing ml/min Est GFR ( Amer) ml/min Est GFR (Non-Af Amer) ml/min BUN/Creatinine Ratio (10-20) Glucose (70-99(Fasting)) mg/dl POC Glucose (70-99) mg/dl Osmolality 303 H (280-300) mOsm/kg Lactate 1.4 (0.4-2.0) mmol/L Calcium (8.5-10.1) mg/dl Magnesium (1.7-2.4) mg/dl Total Bilirubin (0.2-1.0) mg/dl Direct Bilirubin (0-0.2) mg/dl AST (13-39) U/L ALT (7-52) U/L Alkaline Phosphatase (34-104) U/L Ammonia (18-72) umol/L Troponin I High Sens (0-20) pg/ml Total Protein (6.0-8.3) gm/dl Albumin (3.4-5.0) gm/dl Globulin (2.5-4.0) gm/dl Albumin/Globulin Ratio (0.9-2) TSH (0.300-4.500) uIu/ml Prolactin 13.85 ng/ml Urine Color Urine Appearance (Clear) Urine pH (4.5-7.5) Ur Specific [place] (1.000-1.030) Urine Protein (Negative) Urine Glucose (UA) (Negative) Urine Ketones (Negative) Urine Blood (Negative) Urine Nitrite (Negative) Urine Bilirubin (Negative) Urine Urobilinogen (Negative) Ur Leukocyte Esterase (Negative) Urine WBC (Auto) (0-5) /hpf Urine RBC (Auto) (0-4) /hpf U Hyaline Cast (Auto) (0-5) /lpf U Epithel Cells (Auto) (0-5) /lpf Urine Bacteria (Auto) (Negative) Urine Opiates Screen (Neg) Ur Methadone, Qual (Neg) Urine Barbiturates (Neg) Ur Phencyclidine (PCP) (Neg) U Amphetamin/Meth Scrn (Neg) MDMA (Ecstasy) Screen (Neg) U Benzodiazepines Scrn (Neg) Ur Cocaine Metabolite (Neg) U Marijuana (THC) Screen (Neg) Ethyl Alcohol mg/dL (<10.0) mg/dl 02/22/22 02/22/22 Range/Units 20:45 20:45 WBC (4.8-10.8) K/ul RBC (4.63-6.08) M/uL Hgb (14.0-18.0) g/dl Hct (40.1-51.0) % MCV (80.0-100.0) fL MCH (25.0-34.0) pg MCHC (32.0-36.0) g/dL RDW Std Deviation (36.4-46.3) fL RDW Coeff of Fabiola (11.5-14.5) % Plt Count (130-400) K/uL MPV (9.4-12.4) fL Immature Gran % (Auto) % Neut % (Auto) % Lymph % (Auto) % Harvey % (Auto) % Eos % (Auto) % Baso % (Auto) % Neut # (Auto) (1.4-6.5) K/uL Lymph # (Auto) (1.2-3.4) K/uL Harvey # (Auto) (0.24-0.82) K/uL Eos # (Auto) (0-0.50) K/uL Baso # (Auto) (0-0.2) K/uL Immature Gran # (Auto) (0.00-0.02) K/uL PT (9.0-12.0) Seconds INR (0.9-1.1) APTT (21.0-31.0) Seconds PTT Ratio VBG pH (7.36-7.41) VBG pCO2 (38-50) mmHg VBG pO2 mmHg VBG HCO3 mmol/L VBG O2 Saturation % VBG Base Excess mEq/L Sodium (136-145) mmol/L Potassium (3.5-5.1) mmol/L Chloride (98-107) mmol/L Carbon Dioxide (21-32) mmol/L Anion Gap (3-11) BUN (6-23) mg/dl Creatinine (0.6-1.4) mg/dl Est Cr Clr Drug Dosing ml/min Est GFR ( Amer) ml/min Est GFR (Non-Af Amer) ml/min BUN/Creatinine Ratio (10-20) Glucose (70-99(Fasting)) mg/dl POC Glucose (70-99) mg/dl Osmolality (280-300) mOsm/kg Lactate (0.4-2.0) mmol/L Calcium (8.5-10.1) mg/dl Magnesium (1.7-2.4) mg/dl Total Bilirubin (0.2-1.0) mg/dl Direct Bilirubin (0-0.2) mg/dl AST (13-39) U/L ALT (7-52) U/L Alkaline Phosphatase (34-104) U/L Ammonia (18-72) umol/L Troponin I High Sens (0-20) pg/ml Total Protein (6.0-8.3) gm/dl Albumin (3.4-5.0) gm/dl Globulin (2.5-4.0) gm/dl Albumin/Globulin Ratio (0.9-2) TSH (0.300-4.500) uIu/ml Prolactin ng/ml Urine Color Yellow Urine Appearance Clear (Clear) Urine pH 6.0 (4.5-7.5) Ur Specific [place] > 1.045 H (1.000-1.030) Urine Protein Trace H (Negative) Urine Glucose (UA) Negative (Negative) Urine Ketones Negative (Negative) Urine Blood 2+ H (Negative) Urine Nitrite Negative (Negative) Urine Bilirubin Negative (Negative) Urine Urobilinogen Negative (Negative) Ur Leukocyte Esterase Negative (Negative) Urine WBC (Auto) 1-5 (0-5) /hpf Urine RBC (Auto) 5-10 H (0-4) /hpf U Hyaline Cast (Auto) 1-5 (0-5) /lpf U Epithel Cells (Auto) 0-5 (0-5) /lpf Urine Bacteria (Auto) Negative (Negative) Urine Opiates Screen Neg (Neg) Ur Methadone, Qual Neg (Neg) Urine Barbiturates Neg (Neg) Ur Phencyclidine (PCP) Neg (Neg) U Amphetamin/Meth Scrn Neg (Neg) MDMA (Ecstasy) Screen Neg (Neg) U Benzodiazepines Scrn Neg (Neg) Ur Cocaine Metabolite Neg (Neg) U Marijuana (THC) Screen Neg (Neg) Ethyl Alcohol mg/dL (<10.0) mg/dl Administered Medications Discontinued Medications Folic Acid (Folic Acid 1 Mg Tab) 1 mg PO QAM ANNMARIE Stop: 03/25/22 08:59 Last Admin: 02/23/22 08:02 Dose: 1 mg Documented By: MARIELOS Furosemide (Furosemide 40 Mg Tab) 40 mg PO DAILY ANNMARIE Stop: 03/25/22 08:59 Last Admin: 02/23/22 08:01 Dose: 40 mg Documented By: MARIELOS Gabapentin (Gabapentin 100 Mg Cap) 100 mg PO TID ANNMARIE Stop: 03/25/22 08:59 Last Admin: 02/23/22 14:37 Dose: Not Given Documented By: Admin: 02/23/22 08:01 Dose: 100 mg Documented By: MARIELOS Gadobutrol (Gadobutrol 65ml Vial) 9 ml IV ONCE ONE Stop: 02/23/22 01:40 Last Admin: 02/23/22 01:40 Dose: 9 ml Documented By: ROSANA Sodium Chloride (Nss 1000ml) 1,000 mls @ 999 mls/hr IV .Q1H1M ONE Stop: 02/22/22 21:28 Last Infusion: 02/22/22 21:41 Dose: 0 mls/hr Documented By: Admin: 02/22/22 20:37 Dose: 999 mls/hr Documented By: ODALYS Magnesium Sulfate/Dextrose (Magnesium Sulfate / D5w) 1 gm in 100 mls @ 50 mls/hr IV ONE ONE Stop: 02/23/22 00:46 Last Infusion: 02/23/22 01:02 Dose: 0 mls/hr Documented By: Admin: 02/22/22 23:09 Dose: 50 mls/hr Documented By: ANN Sodium Chloride (Nss 1000ml) 1,000 mls @ 50 mls/hr IV .Q20H ANNMARIE Stop: 02/23/22 10:13 Last Admin: 02/23/22 03:56 Dose: 50 mls/hr Documented By: MICHAEL Thiamine HCl 500 mg/ Sodium (Chloride) 55 mls @ 220 mls/hr IV NOW STA Stop: 02/23/22 00:39 Last Infusion: 02/23/22 02:44 Dose: 0 mls/hr Documented By: Admin: 02/23/22 02:24 Dose: 220 mls/hr Documented By: MICHAEL Multivitamins 10 ml/ Thiamine HCl 100 mg/ Folic Acid 1 mg/Sodium Chloride 1,011 .2 mls @ 1,011.2 mls/hr IV .Q1H ONE Stop: 02/23/22 01:29 Last Infusion: 02/23/22 03:56 Dose: 0 mls/hr Documented By: Admin: 02/23/22 02:42 Dose: 1,011.2 mls/hr Documented By: MICHAEL Ioversol (Optiray 320 500ml) 112 ml IV ONCE ONE Stop: 02/22/22 20:16 Last Admin: 02/22/22 20:15 Dose: 112 ml Documented By: DELANEY Lactulose (Lactulose Syrup 20 Gm/30 Ml Udc) 20 gm PO QID ANNMARIE Stop: 03/25/22 08:59 Last Admin: 02/23/22 14:37 Dose: Not Given Documented By: Admin: 02/23/22 07:59 Dose: 20 gm Documented By: MARIELOS Lorazepam (Lorazepam 1 Mg/1 Ml Syr) 0.5 mg IV Q4H PRN; Protocol PRN Reason: Anxiety/Agitation Stop: 03/25/22 00:13 Last Admin: 02/23/22 00:55 Dose: 0.5 mg Documented By: MICHAEL Magnesium Oxide (Magnesium Oxide 400 Mg Tab) 400 mg PO BID ANNMARIE Stop: 03/25/22 08:59 Last Admin: 02/23/22 08:02 Dose: 400 mg Documented By: MARIELOS Multivitamins/Minerals (Cerovite Adv Formula Tab) 1 tab PO QAM ANNMARIE Stop: 03/25/22 08:59 Last Admin: 02/23/22 08:02 Dose: 1 tab Documented By: MARIELOS Oxycodone HCl (Oxycodone Hcl Ir 5 Mg Tab (Immediate Release)) 5 mg PO NOW STA Stop: 02/23/22 00:48 Last Admin: 02/23/22 00:54 Dose: 5 mg Documented By: MICHAEL Pantoprazole Sodium (Pantoprazole 40 Mg Tab) 40 mg PO QAM ANNMARIE Stop: 03/25/22 08:59 Last Admin: 02/23/22 08:02 Dose: 40 mg Documented By: MARIELOS Rifaximin (Rifaximin 550 Mg Tablet) 550 mg PO BID ANNMARIE Stop: 03/25/22 08:59 Last Admin: 02/23/22 08:01 Dose: 550 mg Documented By: MARIELOS Saccharomyces Boulardii (Saccharomyces Boulardii 250 Mg Cap) 250 mg PO DAILY ANNMARIE Stop: 03/25/22 08:59 Last Admin: 02/23/22 08:03 Dose: 250 mg Documented By: MARIELOS Spironolactone (Spironolactone 100 Mg Tab) 100 mg PO DAILY ANNMARIE Stop: 03/25/22 08:59 Last Admin: 02/23/22 08:01 Dose: 100 mg Documented By: MARIELOS Thiamine HCl (Thiamine Hcl 100 Mg Tab) 100 mg PO QAM ANNMARIE Stop: 03/25/22 08:59 Last Admin: 02/23/22 08:03 Dose: 100 mg Documented By: MARIELOS Imaging Data Radiologist's Impression: Chest CTA 02/22/22 19:41 CT ANGIOGRAPHY OF THE CHEST DISSECTION PROTOCOL CLINICAL HISTORY: Chest pain. Evaluate for dissection. COMPARISON STUDY: Chest CT November 24, 2021 and chest radiograph December 09, 2021. TECHNIQUE: Before and following the IV administration of 107 mL of Optiray, helical axial images of the chest were obtained. Maximal intensity projections and sagittal and coronal reformats were viewed on an independent 3D workstation. IV contrast was administered without complication. Automated exposure control was utilized for the study. A dose lowering technique was utilized adhering to the principles of ALARA. FINDINGS: This exam is compromised by motion artifact and suboptimal vascular opacification. No thoracic aortic dissection or intramural hematoma is present. Slight dilatation of the aortic root at the level of the sinuses of Valsalva similar to prior exam measuring approximately 4 cm. There is no pericardial effusion. No enlarged thoracic lymph nodes are present. No central pulmonary embolus is identified. There is no pneumothorax or pleural effusion. There is no consolidation to suggest pneumonia. Central airways are patent. There is bilateral gynecomastia. The liver is cirrhotic. Upper abdominal varices are noted. The abdomen and pelvis CT will be reported separately. IMPRESSION: 1. No thoracic aortic dissection. Exam mildly compromised due to artifact. 2. No acute intrathoracic findings. 3. Cirrhosis with varices. Findings are better depicted on the CT of the abdomen and pelvis which will be reported separately. ACT 112: Negative or not required by law. Electronically signed by: Hira Cordova M.D. 02/22/2022 8:[address] 02/22/22 19:41 CT OF THE HEAD WITHOUT CONTRAST CLINICAL HISTORY: Stroke Like Symptoms COMPARISON STUDY: Head CT December 09, 2021. TECHNIQUE: Helical axial images of the head were obtained without IV contrast. Automated exposure control was utilized for the study. A dose lowering technique was utilized adhering to the principles of ALARA. FINDINGS: No acute intracranial hemorrhage, midline shift or mass effect is present. The ventricular system is unremarkable. The basal cisterns are patent. No extra-axial collections are present. There are no findings to suggest acute dural sinus thrombosis or acute territorial infarct. No significant calvarial abnormalities are present. Visualized portions of the sinuses and mastoid air cells are clear. IMPRESSION: No acute intracranial findings. ACT 112: Negative or not required by law. Electronically signed by: Hira Cordova M.D. 02/22/2022 8:27 PM Head CTA 02/22/22 19:41 CTA ANGIOGRAPHY OF THE HEAD CLINICAL HISTORY: Stroke Like Symptoms COMPARISON STUDY: CTA of the head May 20, 2019. TECHNIQUE: Helical axial images of the head were obtained following uneventful intravenous administration of 107 cc of Optiray. Sagittal and coronal reconstructions were viewed as well as maximal intensity projections on an independent 3-D workstation. Automated exposure control was utilized for the study. A dose lowering technique was utilized adhering to the principles of ALARA. FINDINGS: This exam is compromised by suboptimal vascular opacification. However, the bilateral M1, M2, A1 and A2 segments are patent. There is mild plaque within bilateral cavernous carotids without significant stenosis. No central vessel occlusion is identified on this examination. The posterior circulation is intact. There is no intracranial aneurysm. The appearance is similar to CTA of May 20, 2019. IMPRESSION: Exam compromised by suboptimal opacification. However, no central vessel occlusion. No intracranial aneurysm identified. ACT 112: Negative or not required by law. Electronically signed by: Hira Cordova M.D. 02/22/2022 8:38 PM Neck CTA 02/22/22 19:41 CT ANGIOGRAPHY OF THE NECK WITH CONTRAST CLINICAL HISTORY: Stroke Like Symptoms COMPARISON STUDY: CTA of the neck May 20, 2019. Technique: CT angiography of the carotid and vertebral arteries was obtained using Optiray and 3D reconstruction on an independent workstation. NASCET criteria was utilized. Automated exposure control was utilized for the study. A dose lowering technique was utilized adhering to the principles of ALARA. Findings: This exam is compromised by suboptimal vascular opacification. However, no stenosis or dissection is identified within the bilateral common carotid, cervical internal carotid or vertebral arteries. There is moderate plaque within the bilateral carotid bifurcations without stenosis. Vertebral arteries are suboptimally assessed due to artifact. The left vertebral artery is dominant. CTA of the head will be reported separately. No acute cervical spine fracture. There is no cervical lymphadenopathy. IMPRESSION: Exam compromised by artifact. However, no stenosis or dissection identified within the major vessels of the neck. ACT 112: Negative or not required by law. Electronically signed by: Hira Cordova M.D. 02/22/2022 8:34 PM Abdomen/Pelvis CT 02/22/22 19:45 CT OF THE ABDOMEN AND PELVIS WITH CONTRAST CLINICAL HISTORY: Altered mental status. COMPARISON STUDY: CT of the abdomen and pelvis November 24, 2021. TECHNIQUE: Following IV administration of 107 mL of Optiray, axial images of the abdomen and pelvis were obtained from the lung bases to the proximal femurs. Images were reviewed in the axial, sagittal, and coronal planes. IV contrast was administered without complication. Automated exposure control was utilized for the study. A dose lowering technique was utilized adhering to the principles of ALARA. CT DOSE: 3884.21 mGy.cm FINDINGS: No pneumatosis, free air or portal venous gas is present. The liver is cirrhotic. Several low attenuation hepatic lesions are unchanged. These favor cysts. This exam is compromised by artifact. Mild splenomegaly is unchanged. Abdominal and pelvic varices are again noted. Trace fluid within the right paracolic gutter is unchanged. The adrenal glands, kidneys and pancreas are unremarkable. There is no hydronephrosis. Infrarenal abdominal aorta is ectatic, measuring 2.7 cm. There is moderate plaque. There is no evidence for a bowel obstruction. No lymphadenopathy is present. Major vasculature is patent. Avascular necrosis of the bilateral femoral heads is again noted. No acute lumbar spine, pelvic or hip fractures are identified. The appearance of the abdomen and pelvis is similar to prior CT. IMPRESSION: 1. Cirrhosis with manifestations of portal hypertension including mild splenomegaly and varices formation. Trace ascites. 2. No bowel obstruction. 3. No significant change since prior abdominal CT of November 04, 2021. ACT 112: Negative or not required by law. Electronically signed by: Hira Cordova M.D. 02/22/2022 8:49 PM Discharge Plan Visit Data Chief Complaint: Altered Mental Status ED Provider: Zay Nelson ED Midlevel Provider: Aye Kaur Discharge Problem: Acute alteration in mental status, Thrombocytopenia, Bilateral arm weakness Patient Disposition: Admitted As Inpatient Discharge Instructions Interventions: ED Discharge Assessment Last Done: 02/23/22 00:00
[2022-02-22 20:00] LABS: INR 1.3 (0.9-1.1); Partial Thromboplastin Ratio 0.9; Prothrombin Time 13.8 Seconds (9.0-12.0)
[2022-02-22 20:12] LABS: Albumin Globulin Ratio 1.1 (0.9-2); Albumin Level 3.5 gm/dl (3.4-5.0); BUN Creatinine Ratio 21.7 (10-20); Calcium 8.8 mg/dl (8.5-10.1); Creatinine Clr Calc Pharmacy 76.9 ml/min; Est GFR (African American) 89.9 ml/min; Est GFR (Non-African American) 77.5 ml/min; Globulin 3.3 gm/dl (2.5-4.0); Magnesium 1.7 mg/dl (1.7-2.4); Potassium 3.8 mmol/L (3.5-5.1); Total Protein 6.8 gm/dl (6.0-8.3)
[2022-02-22] MEDS ORDERED: OPTIRAY 320 500ml IV ONE (20:15)
[2022-02-22 20:16] LABS: Troponin I High Sensitivity 12.9 pg/ml (0-20)
[2022-02-22] MEDS ORDERED: SODIUM CHLORIDE 0.9% 1000ML 1,000 ML IV ONE (20:28)
--- NOTE | 2022-02-22 20:29 | CT Scan Report ---
CT OF THE HEAD WITHOUT CONTRAST CLINICAL HISTORY: Stroke Like Symptoms COMPARISON STUDY: Head CT December 09, 2021. TECHNIQUE: Helical axial images of the head were obtained without IV contrast. Automated exposure con trol was utilized for the study. A dose lowering technique was utilized adhering to the principles o f ALARA. FINDINGS: No acute intracranial hemorrhage, midline shift or mass effect is present. The ventricular system is unremarkable. The basal cisterns are patent. No extra-axial collections are present. There are no findings to suggest acute dural sinus thrombosis or acute territorial infarct. No significant calvarial abnormalities are present. Visualized portions of the sinuses and mastoid air cells are maribell ar. IMPRESSION: No acute intracranial findings. ACT 112: Negative or not required by law. Electronically signed by: Hira Cordova M.D. 02/22/2022 8:27 PM
--- NOTE | 2022-02-22 20:37 | CT Scan Report ---
CT ANGIOGRAPHY OF THE NECK WITH CONTRAST CLINICAL HISTORY: Stroke Like Symptoms COMPARISON STUDY: CTA of the neck May 20, 2019. Technique: CT angiography of the carotid and vertebral arteries was obtained using Optiray and 3D rec onstruction on an independent workstation. NASCET criteria was utilized. Automated exposure control was utilized for the study. A dose lowering technique was utilized adhering to the principles of ALA RA. Findings: This exam is compromised by suboptimal vascular opacification. However, no stenosis or diss ection is identified within the bilateral common carotid, cervical internal carotid or vertebral roopa joshua. There is moderate plaque within the bilateral carotid bifurcations without stenosis. Vertebral arteries are suboptimally assessed due to artifact. The left vertebral artery is dominant. CTA of the head will be reported separately. No acute cervical spine fracture. There is no cervical lymphadenop athy. IMPRESSION: Exam compromised by artifact. However, no stenosis or dissection identified within the major vessels of the neck. ACT 112: Negative or not required by law. Electronically signed by: Hira Cordova M.D. 02/22/2022 8:34 PM
--- NOTE | 2022-02-22 20:39 | CT Scan Report ---
CTA ANGIOGRAPHY OF THE HEAD CLINICAL HISTORY: Stroke Like Symptoms COMPARISON STUDY: CTA of the head May 20, 2019. TECHNIQUE: Helical axial images of the head were obtained following uneventful intravenous administr ation of 107 cc of Optiray. Sagittal and coronal reconstructions were viewed as well as maximal inten sity projections on an independent 3-D workstation. Automated exposure control was utilized for the study. A dose lowering technique was utilized adhering to the principles of ALARA. FINDINGS: This exam is compromised by suboptimal vascular opacification. However, the bilateral M1, M 2, A1 and A2 segments are patent. There is mild plaque within bilateral cavernous carotids without si gnificant stenosis. No central vessel occlusion is identified on this examination. The posterior circ ulation is intact. There is no intracranial aneurysm. The appearance is similar to CTA of May. IMPRESSION: Exam compromised by suboptimal opacification. However, no central vessel occlusion. No i ntracranial aneurysm identified. ACT 112: Negative or not required by law. Electronically signed by: Hira Cordova M.D. 02/22/2022 8:38 PM
--- NOTE | 2022-02-22 20:45 | CT Scan Report ---
CT ANGIOGRAPHY OF THE CHEST DISSECTION PROTOCOL CLINICAL HISTORY: Chest pain. Evaluate for dissection. COMPARISON STUDY: Chest CT November 24, 2021 and chest radiograph December 09, 2021. TECHNIQUE: Before and following the IV administration of 107 mL of Optiray, helical axial images of t he chest were obtained. Maximal intensity projections and sagittal and coronal reformats were viewed on an independent 3D workstation. IV contrast was administered without complication. Automated exp osure control was utilized for the study. A dose lowering technique was utilized adhering to the juan f saldivar of MICHELLE. FINDINGS: This exam is compromised by motion artifact and suboptimal vascular opacification. No thor acic aortic dissection or intramural hematoma is present. Slight dilatation of the aortic root at the level of the sinuses of Valsalva similar to prior exam measuring approximately 4 cm. There is no per icardial effusion. No enlarged thoracic lymph nodes are present. No central pulmonary embolus is iden tified. There is no pneumothorax or pleural effusion. There is no consolidation to suggest pneumonia. Central airways are patent. There is bilateral gynecomastia. The liver is cirrhotic. Upper abdominal varices are noted. The abdomen and pelvis CT will be reported separately. IMPRESSION: 1. No thoracic aortic dissection. Exam mildly compromised due to artifact. 2. No acute intrathoracic findings. 3. Cirrhosis with varices. Findings are better depicted on the CT of the abdomen and pelvis which afshin l be reported separately. ACT 112: Negative or not required by law. Electronically signed by: Hira Cordova M.D. 02/22/2022 8:43 PM
--- NOTE | 2022-02-22 20:52 | CT Scan Report ---
CT OF THE ABDOMEN AND PELVIS WITH CONTRAST CLINICAL HISTORY: Altered mental status. COMPARISON STUDY: CT of the abdomen and pelvis November 24, 2021. TECHNIQUE: Following IV administration of 107 mL of Optiray, axial images of the abdomen and pelvis w ere obtained from the lung bases to the proximal femurs. Images were reviewed in the axial, sagittal, and coronal planes. IV contrast was administered without complication. Automated exposure control w as utilized for the study. A dose lowering technique was utilized adhering to the principles of ANNETTA Jarquin. CT DOSE: 3884.21 mGy.cm FINDINGS: No pneumatosis, free air or portal venous gas is present. The liver is cirrhotic. Several l ow attenuation hepatic lesions are unchanged. These favor cysts. This exam is compromised by artifact . Mild splenomegaly is unchanged. Abdominal and pelvic varices are again noted. Trace fluid within th e right paracolic gutter is unchanged. The adrenal glands, kidneys and pancreas are unremarkable. The re is no hydronephrosis. Infrarenal abdominal aorta is ectatic, measuring 2.7 cm. There is moderate p laque. There is no evidence for a bowel obstruction. No lymphadenopathy is present. Major vasculature is patent. Avascular necrosis of the bilateral femoral heads is again noted. No acute lumbar spine, pelvic or hip fractures are identified. The appearance of the abdomen and pelvis is similar to prior CT. IMPRESSION: 1. Cirrhosis with manifestations of portal hypertension including mild splenomegaly and varices forma tion. Trace ascites. 2. No bowel obstruction. 3. No significant change since prior abdominal CT of November 04, 2021. ACT 112: Negative or not required by law. Electronically signed by: Hira Cordova M.D. 02/22/2022 8:49 PM
[2022-02-22 21:01] LABS: Base Excess VBG -3.1 mEq/L; HCO3 VBG 22 mmol/L; Oxygen Saturation VBG < 60.0 %; PCO2 VBG 39 mmHg (38-50); PO2 VBG 31 mmHg; pH VBG 7.36 (7.36-7.41)
[2022-02-22 21:08] LABS: Appearance Urine Clear (Clear); Bacteria Urine Automated Negative (Negative); Bilirubin Urine Negative (Negative); Blood Urine 2+ (Negative); Color Urine Yellow; Epithelial Cell Urine Auto 0-5 /lpf (0-5); Glucose Urine UA Negative (Negative); Ketones Urine Negative (Negative); Leukocyte Esterase Urine Negative (Negative); Nitrite Urine Negative (Negative); Protein Urine Trace (Negative); Specific Gravity Urine > 1.045 (1.000-1.030); Urobilinogen Urine Negative (Negative)
[2022-02-22 21:36] LABS: Amphetamines+Metham, Urine Neg (Neg); Barbiturates, Urine Neg (Neg); Benzodiazepine, Urine Neg (Neg); Cocaine, Urine Neg (Neg); MDMA (Ecstacy), Urine Neg (Neg); Methadone, Urine Neg (Neg); Opiate, Urine Neg (Neg); Phencyclidine, Urine Neg (Neg)
[2022-02-22 21:47] LABS: Troponin I High Sensitivity 15.6 pg/ml (0-20)
[2022-02-22 21:52] LABS: Bilirubin Direct 0.4 mg/dl (0-0.2)
[2022-02-22] MEDS ORDERED: MAGNESIUM SULFATE / D5W 1 GM/100 ML BAG IV ONE (22:47)
[2022-02-23] MEDS ORDERED: SODIUM CHLORIDE 0.9% 1000ML 1,000 ML IV SCH (00:14)
[2022-02-23] MEDS ORDERED: NITROGLYCERIN SL 0.4 MG/TAB TAB SL PRN (00:14)
[2022-02-23] MEDS ORDERED: PHARMACIST DISCHARGE MED REC CONSULT PRN (00:14)
[2022-02-23] MEDS ORDERED: LORazepam 1 MG/1 ML SYR IV PRN (00:14)
[2022-02-23] MEDS ORDERED: THIAMINE HCL 500 MG in SODIUM CHLORIDE 0.9% 50 ML IV STA (00:25)
[2022-02-23] MEDS ORDERED: MULTI-VITAMIN INFUSION 10 ML, THIAMINE HCL 100 MG, FOLIC ACID 1 MG in SODIUM CHLORIDE 0... IV ONE (00:30)
[2022-02-23] MEDS ORDERED: oxyCODONE HCL IR 5 MG TAB (IMMEDIATE RELEASE) PO STA (00:47)
--- NOTE | 2022-02-23 01:29 | History and Physical Report ---
CHIEF COMPLAINT: Altered mental status. HISTORY OF PRESENT ILLNESS: A 56-year-old male with past medical history significant for hyperlipidemia, seasonal allergic rhinitis, hypertension, history of ID, history of internal hemorrhoids, history of TIA, history of liver cirrhosis, history of GERD, history of subungual hematoma finger of left hand; history of thrombocytopenia, angioedema, history of small-bowel obstruction, history of chronic alcohol abuse, presents with altered mental status. As per the , he was doing okay and around 4-4:30 p.m., he suddenly became stiff s first in the right upper extremity with finger closed and then left upper extremity became stiff. He was sitting on the recliner when it happened and also at that time, his legs got extended mostly on the right leg and was not speaking and EMS was called and was brought in here. His sugars were okay. When he came into the ER, he was totally nonresponsive. Initially, ER doctor thought of calling stroke alert, but his platelets are low and also history of hepatic encephalopathy in the past, so they ordered the labs and ordered the imaging studies. CTA of the head and neck and CT of the head and CTA of the chest, which were all unremarkable. Labs also came back unremarkable, except for some mild elevation of white count.Lactic acid, ammonia levels were okay. ABGs were okay. The patient later opened his eyes and when I saw him, he was back to his normal self, alert and oriented, does not know what happened. He says it happened once before. Says he does not like blacking out. Denies any alcohol use. He says he did not drink alcohol for the last few months. As per the [facility] , he did not drink since 12/2021. His alcohol levels were also normal. His drug screen was okay in the ER. He is afebrile. He has some mild headache. He has blurred visions for the last few days. No earache, no runny nose, no sore throat, no cough,. The patient states that on 02/14/2022 liver biopsy was done and the biopsy results were unremarkable as per the patient and for couple of days after the procedure , he vomited small amount of blood, but that stopped. He gets on and off chest pain and shortness of breath. Currently, there is no chest pain or shortness of breath. He has some abdominal discomfort. He has diarrhea because of his lactulose, his stools are always black. Normal bladder movements. Currently, no swelling in the legs. He says since he has sciatica, he has problem with the left leg, he could not bear much weight on the left leg and sometimes drags that leg as per the , and he is following with the doctors for that and is going for the last 3 months. Currently, hemodynamically stable. ALLERGIES: No known drug allergies. PAST MEDICAL HISTORY: As mentioned above. PAST SURGICAL HISTORY: colonoscopy, EGDs, EGD with endoscopic ultrasound, laparoscopic cholecystectomy, exploratory laparotomy with extensive lysis of adhesions, repair of small bowel serosa, appendectomy for ruptured appendix. MEDICATIONS: As per [facility], the patient is on magnesium oxide 400 mg p.o. daily, oxycodone 50 mg p.o. t.i.d. p.r.n. for left hip pain, Lasix 40 mg p.o. daily, rifaximin 550 mg p.o. b.i.d., spironolactone 100 mg p.o. daily, lactulose 30 mL q.i.d., ibuprofen p.r.n., gabapentin 100 mg p.o. t.i.d., Protonix 40 mg p.o. b.i.d., atorvastatin 20 mg p.o. daily. FAMILY HISTORY: Significant for father has dementia, ID, heart failure, stroke; mother has Parkinson's. SOCIAL HISTORY: Quit smoking in 2016, prior to that smoked 1 pack a day for 20 years. Alcohol, he used to drink 12-pack on weekends. No alcohol since 12/2021. No drug use. REVIEW OF SYSTEMS: As per HPI. Rest of the review of systems is negative. PHYSICAL EXAMINATION: GENERAL: The patient is of moderate build, not in acute distress. VITAL SIGNS: Temperature 37, pulse 74, respiratory rate 18, blood pressure 130/78, oxygen 95% on room air. HEENT: Pupils equal, round and reactive to light. Oral mucosa moist. NECK: No JVD, no neck masses. CARDIOVASCULAR: S1 and S2 heard. Regular rate and rhythm. No murmur, no gallop. RESPIRATORY SYSTEM: Normal AP diameter. No accessory muscle use. No wheezing, no crackles. ABDOMEN: Soft, bowel sounds present, nontender, no distention. CENTRAL NERVOUS SYSTEM: Alert and oriented to name and place. Has some difficulty with the dates, could tell his date of . No facial droop. Speech is clear. Power is some global weakness. No pronator drift. Coordination of movements okay. Sensation is intact. Position sense is intact. EXTREMITIES: No edema, no erythema. LABORATORY DATA: WBC 12.1, hemoglobin 12.3, hematocrit 35.2, platelets 74. PT 13.8, INR 1.3. pH of 7.36. Sodium 140, potassium 3.8, chloride 112, bicarbonate 20, BUN 23, creatinine 1.06, serum glucose 106, Lactate 1.4, calcium 8.8, magnesium 1.7, total bilirubin 2, direct bilirubin 0.4, AST 65, ALT 52, alkaline phosphatase 102, ammonia 39. Troponin I high sensitivity 15.6. TSH 1.096. Prolactin 13.8. Urinalysis negative. Urine drug screen negative. Ethyl alcohol level less than 10. IMAGING DATA: CT of abdomen and pelvis with contrast: Cirrhosis with manifestation of portal hypertension including mild splenomegaly and varices formation, trace ascites. No bowel obstruction, no significant change since prior CT scan. CTA of the head and neck, no acute findings. CT of the head, no acute findings. Chest CTA, no thoracic aortic dissection, no acute intrathoracic findings, cirrhosis, varices. EKG: Sinus tachycardia with occasional PVCs at a rate of 109. ASSESSMENT AND PLAN: This is a 56-year-old male who presents with altered mental status. 1. Altered mental status, possible transient global amnesia, possible seizure activity, possible stroke, possible syncope. As per he first became stiff in his right upper extremities first and then also in the left upper extremity with legs extending and was not speaking. This lasted for almost couple of hours, seems to be mostly back to baseline. Initial imaging studies are okay. Labs are okay. Ammonia level okay. ABG okay. No obvious signs of infection. We will monitor in the tele floor. The patient stated he used to drink alcohol in the past, but he states he did not drink for the last couple of months. Alcohol levels is okay. We will give him banana bag, IV thiamine 500 mg and continue with p.o. thiamine, folic acid, and multivitamin daily. We will get full stroke workup with MRI scan, echo, speech evaluation, neurology evaluation, monitor in the tele floor, we will also get cardiology consult for possible dysrhythmia. We will also get EEG study and closely monitor in the tele floor. 2. History of liver cirrhosis: Continue his home medications of Lasix, Aldactone, rifaximin and lactulose. 3. History of gastroesophageal reflux disease: Continue Protonix. 4. History of hyperlipidemia: Continue statin. 5. History of alcoholism. Currently, not drinking, will be placed on IV Ativan p.r.n. 6. Thrombocytopenia, mostly likely secondary to liver cirrhosis status. Will follow the labs. 7. Deep venous thrombosis prophylaxis: SCDs. DISPOSITION: Closely monitor in the tele floor. Level 1 full code. Expect to discharge home and follow with family doctor. PT/OT prior to discharge. Social service to help with discharge planning. Job ID: [id number] MARILYN
[2022-02-23] MEDS ORDERED: GADOBUTROL 65ML VIAL IV ONE (01:39)
[2022-02-23] MEDS ORDERED: oxyCODONE HCL IR 5 MG TAB (IMMEDIATE RELEASE) PO PRN (01:49)
--- NOTE | 2022-02-23 07:12 | Magnetic Resonance Report ---
MRI OF THE BRAIN COMBO CLINICAL HISTORY: Stroke like symptoms. COMPARISON STUDY: CT of the brain dated 02/22/2022. TECHNIQUE: MRI of the brain was performed utilizing various T1 and T2-weighted sequences in the axial , sagittal, and coronal planes. Contrast-enhanced sequences were acquired following the administratio n of 9 cc of Gadavist. FINDINGS: Brain parenchyma: There is minimal microangiopathic change. Hyperintense T1 signal is noted within th e basal ganglia. There is no hemorrhage or mass effect. There is no restricted diffusion to suggest a cute ischemia. No enhancing mass lesion is identified on the postcontrast images. Nogueira-white matter d ifferentiation is preserved. No extra-axial fluid collection is seen. The cerebellar tonsils are norm al in configuration. Ventricles, sulci, and cisterns: Normal in configuration. Pituitary and sella: Unremarkable. Intracranial vasculature: Normal flow voids are maintained at the skull base. Orbits: The bony orbits are grossly intact. Orbital contents are normal in appearance. Sinuses and mastoids: Clear. Calvarium: Unremarkable. Cervical cord: Partially visualized cervical spinal cord is normal in morphology and signal intensity . IMPRESSION: No acute intracranial abnormality. ACT 112: Negative or not required by law. Electronically signed by: Anderson Henry M.D. 02/23/2022 7:10 AM
[2022-02-23 07:49] LABS: Hematocrit (blood only) 30.9 % (40.1-51.0); Hemoglobin 10.7 g/dl (14.0-18.0); White Blood Count 8.05 K/ul (4.8-10.8)
[2022-02-23 07:51] LABS: Mean Corpuscular Hemoglobin 33.6 pg (25.0-34.0); Mean Corpuscular Hgb Conc 34.6 g/dL (32.0-36.0); Mean Corpuscular Volume 97.2 fL (80.0-100.0); Mean Platelet Volume 11.9 fL (9.4-12.4); Platelet Count 55 K/uL (130-400); RDW Coefficient of Variation 14.4 % (11.5-14.5); RDW Standard Deviation 51.9 fL (36.4-46.3); Red Blood Count 3.18 M/uL (4.63-6.08)
[2022-02-23] MEDS: LACTULOSE SYRUP 20 GM/30 ML UDC PO SCH ×2 (07:59→14:37)
[2022-02-23] MEDS: GABAPENTIN 100 MG CAP PO SCH ×2 (08:01→14:37)
[2022-02-23 08:02] LABS: Estimated Average Glucose 88 mg/dl; Hemoglobin A1C 4.7 % (4.5-5.6)
[2022-02-23 08:07] LABS: BUN Creatinine Ratio 24.4 (10-20); Basophils # (auto) 0.05 K/uL (0-0.2); Basophils % (auto) 0.6 %; Calcium 7.9 mg/dl (8.5-10.1); Chol HDL Ratio 2.3 (0-5); Creatinine Clr Calc Pharmacy 113.7 ml/min; Eosinophils # (auto) 0.61 K/uL (0-0.50); Eosinophils % (auto) 7.6 %; Est GFR (African American) 116.1 ml/min; Est GFR (Non-African American) 100.2 ml/min; Immature Granulocytes # (auto) 0.04 K/uL (0.00-0.02); Immature Granulocytes % (auto) 0.5 %; Lymphocytes # (auto) 1.95 K/uL (1.2-3.4); Lymphocytes % (auto) 24.2 %; Monocytes # (auto) 0.96 K/uL (0.24-0.82); Monocytes % (auto) 11.9 %; Neutrophils # (auto) 4.44 K/uL (1.4-6.5); Neutrophils % (auto) 55.2 %; Polychromasia 1+; Potassium 3.7 mmol/L (3.5-5.1)
[2022-02-23 08:14] LABS: Troponin I High Sensitivity 16.6 pg/ml (0-20)
[2022-02-23] MEDS ORDERED: SPIRONOLACTONE 100 MG TAB PO SCH (09:00)
[2022-02-23] MEDS ORDERED: rifAXIMin 550 MG TABLET PO SCH (09:00)
[2022-02-23] MEDS ORDERED: MAGNESIUM OXIDE 400 MG TAB PO SCH (09:00)
[2022-02-23] MEDS ORDERED: THIAMINE HCL 100 MG TAB PO SCH (09:00)
[2022-02-23] MEDS ORDERED: PANTOprazole 40 MG TAB PO SCH (09:00)
[2022-02-23] MEDS ORDERED: FUROSEMIDE 40 MG TAB PO SCH (09:00)
[2022-02-23] MEDS ORDERED: CEROVITE ADV FORMULA TAB PO SCH (09:00)
[2022-02-23] MEDS ORDERED: FOLIC ACID 1 MG TAB PO SCH (09:00)
[2022-02-23] MEDS ORDERED: SACCHAROMYCES BOULARDII 250 MG CAP PO SCH (09:00)
--- NOTE | 2022-02-23 10:23 | Cardiology Consultation ---
Date of Consultation February 23, 2022 Assessment & Plan (1) Acute alteration in mental status: (2) Dilated aortic root: (3) HTN (hypertension): (4) HLD (hyperlipidemia): (5) Thrombocytopenia: (6) Alcoholic cirrhosis: Plan Altered mental status. No overt loss of consciousness/syncope. Recommend evaluation of noncardiac etiologies. Alcoholic cirrhosis with esophageal varices, ascites, hepatic encephalopathy, thrombocytopenia. Followed by [facility]. Hypertension. Blood pressures well controlled. Continue the current antihypertensive regimen. Dilated aortic root, 4 cm. Recommend routine surveillance monitoring. Dyslipidemia. Continue statin. Continue telemetry monitoring while hospitalized. Await resting echocardiography. Consider outpatient Zio monitor. No further inpatient cardiac workup planned. Supervising Physician Co-Signing Physician Notes Supervising Physician Attestation: I have personally performed a history and physical examination on the patient. I agree with the physician media assistant's findings and plan as documented with the following additions. Subjective: Patient feeling well without cardiac complaint. No arrhythmias on telemetry Exam: Cardiovascular: Regular rhythm no murmurs, no edema Data: Echocardiogram performed today 02/23/2022 and reviewed independently: Normal LV wall motion, normal LVEF 60 to 65%, no significant valvular heart d isease. Doppler data compatible with normal left ventricular filling pressure. The aortic root is mildly dilated at 3.9 cm With the administration of agitated saline contrast, bubbles were observed to reach the left-sided cardiac chambers likely consistent with an intrapulmonary arteriovenous shunt as compared to an interatrial shunt. This is compatible with the patient's history of liver disease. Assessment and Plan: Work-up with regards to negative troponin, negative EKG, negative telemetry, normal LV function reassuring No further cardiac testing felt to be indicated. Phan Martinez DO History of Present Illness Reason for Consultation: Syncope versus seizure Requesting Physician: Keisha Attending Physician: Olga History of Present Illness Mr. Mauro Liu is a 56-year-old male who presented to the [facility] ER on February 22, 2022 via EMS with an episode of altered mental status. Patient notes working on a vehicle in the driveway earlier in the day and feeling well. After working on the vehicle he went inside and sat in the recliner. He notes having some right upper extremity discomfort and a headache. He was observed by his to become stiff, first in the right upper extremity and then the left upper extremity. He was not speaking. EMS was summoned and the patient was brought to the [facility] ER where he was evaluated by Dr. Nelson. Per documentation, the patient was very confused and lethargic on initial presentation, with tongue deviation to the right, improving as the ER stay progressed. The patient denies prior cardiac history. He specifically denies history of CAD, RI, CHF, arrhythmia, heart murmur, rheumatic fever, or scarlet fever. Denies chest pain. Denies exertional chest pain or discomfort. Denies pleuriti c chest pain. Denies new or worsening shortness of breath. Denies palpitations. No orthopnea, PND, or lower extremity peripheral edema. No tongue biting. No incontinence. No history of seizures. + Diarrhea, on lactulose. + Back pain EKG dated and timed 02/23/2022 at 06:10:16 revealed normal sinus rhythm at 69 bpm. When compared to outpatient EKGs, there is no significant change. Continuous telemetry monitoring reveals sinus rhythm in the 70s and 80s. No tachy or bradycardia arrhythmias. High-sensitivity troponin I negative x2 at 15.6 and 16.6 pg/ml. Family History: Father at 87 with CHF. Mother with Parkinson's. One brother who is obese with bilteral knee issues. Social History: Reformed smoker, 1 ppd x 20 years, quitting 2015. History of alcohol abuse, abstaining since December. No illegal drug use. . 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 Allergies Allergy/AdvReac Type Severity Reaction Status Date / Time No Known Drug Allergies Allergy Unknown Verified 11/24/21 15:34 Home Medications Medication Instructions Recorded Confirmed Type atorvastatin 20 mg tablet 20 mg PO HS 01/18/18 12/09/21 History pantoprazole 40 mg tablet,delayed 40 mg PO QAM 07/26/18 12/09/21 History release Saccharomyces boulardii 250 mg 250 mg PO DAILY #10 caps 06/07/21 12/09/21 Rx capsule (Florastor) lactulose 10 gram/15 mL oral 30 ml PO QID 11/24/21 12/09/21 History solution magnesium oxide 400 mg (241.3 mg 400 mg PO AMHS 11/24/21 12/09/21 History magnesium) tablet oxycodone 5 mg tablet 5 mg PO Q4 PRN Pain, Severe 11/24/21 12/09/21 History furosemide 40 mg tablet 40 mg PO DAILY 02/23/22 02/23/22 History gabapentin 100 mg capsule 100 mg PO TID 02/23/22 02/23/22 History rifaximin 550 mg tablet (Xifaxan) 550 mg PO BID 02/23/22 02/23/22 History spironolactone 100 mg tablet 100 mg PO DAILY 02/23/22 02/23/22 History Patient History Medical History Abnormal PFT Acid reflux Acute alteration in mental status Cirrhosis of liver Elevated LFTs GERD (gastroesophageal reflux disease) H/O angioedema ongoing, follows with allergy HLD (hyperlipidemia) HTN (hypertension) Hyperlipidemia Hypertension Nausea Thrombocytopenia UTI (urinary tract infection) Surgical History History of appendectomy History of appendectomy History of bowel resection 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 History of colonoscopy History of esophagogastroduodenoscopy (EGD) History of tooth extraction Family History Father Hearing loss Hypertension Stroke Heart disease Other No pertinent family history in first degree relatives Denies family history of No family history of adverse response to anesthesia No family history of bleeding disorder Allergies Asthma Social History Smoking Status: Former smoker Tobacco Type: Cigarettes Cigarettes Per Day: 1-2; Second Hand Exposure: No; Do You Dip or Chew Tobacco: No; Tobacco Cessation Education Requested by Patient: No Hx Alcohol Use: No Hx Substance Use: No Preferred Language: Citizen Of [place] Communication Ability: Effective Glass Inspector Required: No Beliefs That Will Affect Care: None marital status: Single Current Living Situation: Spouse Current Living Situation Comment: LIVES WITH GIRLFRIEND current occupational status: 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 NAD. HENT: Normocephalic. Atraumatic. Eyes: PER. Conjunctiva pink, sclera clear. Neck: No carotid bruits. No JVD. No HJR. Heart: RRR. No murmur. No rub. No gallop. PMI is nondisplaced. Lungs: Clear to auscultation. Abdomen: +BS. Soft. Nontender. No masses or organomegaly. Extremities: No clubbing, cyanosis, or edema. Limited neurological examination is without focal deficits. Pulses: radial=2/4, posterior tibial=2/4. Results & Data ([facility]) Vital Signs (Past 12 Hours) Vital Signs Temp Pulse Pulse Resp BP BP Pulse Ox 02/23/22 08:50 70 02/23/22 07:49 36.5 C 100 H 18 120/61 97 02/23/22 03:15 36.7 C 82 18 121/75 97 02/23/22 00:20 71 02/23/22 00:18 02/23/22 00:18 36.8 C 69 20 136/77 98 02/23/22 00:16 36.8 C 69 20 136/77 98 02/23/22 00:00 75 16 119/74 95 02/22/22 23:00 73 18 138/76 97 O2 Del Method 02/23/22 08:50 02/23/22 07:49 Room Air 02/23/22 03:15 Room Air 02/23/22 00:20 02/23/22 00:18 Room Air 02/23/22 00:18 Room Air 02/23/22 00:16 Room Air 02/23/22 00:00 Room Air 02/22/22 23:00 Room Air Laboratory Results Cardiac Enzymes 02/22/22 02/22/22 02/23/22 Range/Units 19:31 20:31 01:01 AST 65 H (13-39) U/L Troponin I High Sens 12.9 D 15.6 14.9 (0-20) pg/ml 02/23/22 Range/Units 07:25 AST (13-39) U/L Troponin I High Sens 16.6 (0-20) pg/ml Coagulation 02/22/22 Range/Units 19:31 PT 13.8 H (9.0-12.0) Seconds APTT 25.0 (21.0-31.0) Seconds Lipids 02/23/22 02/23/22 Range/Units 07:25 07:25 Triglycerides 59 Cancelled (0-150) mg/dl Cholesterol 98 Cancelled (0-200) mg/dl HDL Cholesterol 43 Cancelled mg/dl Cholesterol/HDL Ratio 2.3 Cancelled (0-5) CBC 02/22/22 02/23/22 Range/Units 19:31 07:25 WBC 12.15 H 8.05 (4.8-10.8) K/ul RBC 3.60 L 3.18 L (4.63-6.08) M/uL Hgb 12.3 L 10.7 L (14.0-18.0) g/dl Hct 35.2 L 30.9 L (40.1-51.0) % Plt Count 74 L 55 L (130-400) K/uL Neut # (Auto) 8.97 H 4.44 (1.4-6.5) K/uL Lymph # (Auto) 1.61 1.95 (1.2-3.4) K/uL [place] # (Auto) 1.41 H 0.96 H (0.24-0.82) K/uL Eos # (Auto) 0.08 0.61 H (0-0.50) K/uL Baso # (Auto) 0.04 0.05 (0-0.2) K/uL Comprehensive Metabolic Panel 02/22/22 02/22/22 02/23/22 Range/Units 19:31 20:31 07:25 Sodium 140 140 (136-145) mmol/L Potassium 3.8 3.7 (3.5-5.1) mmol/L Chloride 112 H 114 H (98-107) mmol/L Carbon Dioxide 20 L 21 (21-32) mmol/L BUN 23 19 (6-23) mg/dl Creatinine 1.06 0.78 (0.6-1.4) mg/dl Glucose 106 H 80 (70-99(Fasting)) mg/dl Calcium 8.8 7.9 L (8.5-10.1) mg/dl Direct Bilirubin 0.4 H (0-0.2) mg/dl AST 65 H (13-39) U/L ALT 52 (7-52) U/L Alkaline Phosphatase 102 (34-104) U/L Total Protein 6.8 (6.0-8.3) gm/dl Albumin 3.5 (3.4-5.0) gm/dl 02/23/22 Range/Units 07:25 Sodium Cancelled (136-145) mmol/L Potassium Cancelled (3.5-5.1) mmol/L Chloride Cancelled (98-107) mmol/L Carbon Dioxide Cancelled (21-32) mmol/L BUN Cancelled (6-23) mg/dl Creatinine Cancelled (0.6-1.4) mg/dl Glucose Cancelled (70-99(Fasting)) mg/dl Calcium Cancelled (8.5-10.1) mg/dl Direct Bilirubin (0-0.2) mg/dl AST (13-39) U/L ALT (7-52) U/L Alkaline Phosphatase (34-104) U/L Total Protein (6.0-8.3) gm/dl Albumin (3.4-5.0) gm/dl Intake and Output 02/22/22 02/23/22 02/23/22 22:59 06:59 14:59 Intake Total 1000 / 2406.2 1406.2 / 2406.2 Output Total 375 / 375 Balance 1000 / 2031.2 1031.2 / 2031.2 Intake: IV 1000 / 2166.2 1166.2 / 2166.2 Magnesium Sulfate / D5w 1 gm In 100 / 100 100 ml @ 50 mls/hr IV ONE ONE Rx#:[id number] Multi-Vitamin Infusion 10 ml 1011.2 / 1011.2 Thiamine HCl 100 mg Folic Acid 1 mg In Sodium Chloride 0.9% 1000ML 1,000 ml @ 1011.2 mls/hr IV .Q1H ONE Rx#:[id number] Sodium Chloride 0.9% 1000ML 1, 1000 / 1000 000 ml @ 999 mls/hr IV .Q1H1M ONE Rx#:[id number] Thiamine HCl 500 mg In Sodium 55 / 55 Chloride 0.9% 50 ml @ 220 mls/ hr IV NOW STA Rx#:[id number] Oral 240 / 240 Output: Urine 375 / 375 Other: Weight 80 kg 86.2 kg Weight Measurement Method Built in [facility] Built in [facility] Diagnostic Findings February 22, 2022 Chest CTA: No thoracic aortic dissection, with slight dilatation of the aortic root at the level of the sinuses of Valsalva similar to prior examination, measuring 4 cm. No pericardial effusion. No acute intrathoracic findings. Cirrhosis with varices. February 22, [address]: No acute intracranial findings February 22, 2022 Head CTA: This exam is compromised by suboptimal vascular opacification. However, the bilateral M1, M2, A1 and A2 segments are patent. There is mild plaque within bilateral cavernous carotids without significant stenosis. No central vessel occlusion is identified on this examination. The posterior circulation is intact. There is no intracranial aneurysm. The appearance is similar to CTA of May 20, 2019 February 22, 2022 Neck CTA: This exam is compromised by suboptimal vascular opacification. However, no stenosis or dissection is identified within the bilateral common carotid, cervical internal carotid or vertebral arteries. There is moderate plaque within the bilateral carotid bifurcations without stenosis. Vertebral arteries are suboptimally assessed due to artifact. The left vertebral artery is dominant. CTA of the head will be reported separately. No acute cervical spine fracture. There is no cervical lymphadenopathy. February 22, 2022 CT AP: Cirrhosis with manifestations of portal hypertension including mild splenomegaly and varices formation. Trace ascites. No bowel obstruction. No significant change since prior abdominal CT of November 04, 2021. February 23, 2022 Brain MRI: No acute intracranial abnormality.
--- NOTE | 2022-02-23 13:31 | Electroencephalogram ---
EEG Procedure Note Date of Service February 23, 2022 Start / End Times Start Time: 10:14 End Time: 10:34 Referring Physician Eliot Valdes History AMS, seizure-like activity Home Medication List Medication Instructions Recorded Confirmed Type atorvastatin 20 mg tablet 20 mg PO HS 01/18/18 12/09/21 History pantoprazole 40 mg tablet,delayed 40 mg PO QAM 07/26/18 12/09/21 History release Saccharomyces boulardii 250 mg 250 mg PO DAILY #10 caps 06/07/21 12/09/21 Rx capsule (Florastor) lactulose 10 gram/15 mL oral 30 ml PO QID 11/24/21 12/09/21 History solution magnesium oxide 400 mg (241.3 mg 400 mg PO AMHS 11/24/21 12/09/21 History magnesium) tablet oxycodone 5 mg tablet 5 mg PO Q4 PRN Pain, Severe 11/24/21 12/09/21 History furosemide 40 mg tablet 40 mg PO DAILY 02/23/22 02/23/22 History gabapentin 100 mg capsule 100 mg PO TID 02/23/22 02/23/22 History rifaximin 550 mg tablet (Xifaxan) 550 mg PO BID 02/23/22 02/23/22 History spironolactone 100 mg tablet 100 mg PO DAILY 02/23/22 02/23/22 History Inpatient Medication List Folic Acid (Folic Acid 1 Mg Tab) 1 mg PO QAM [facility] Stop: 03/25/22 08:59 Last Admin: 02/23/22 08:02 Dose: 1 mg Documented By: MARIELOS Furosemide (Furosemide 40 Mg Tab) 40 mg PO DAILY [facility] Stop: 03/25/22 08:59 Last Admin: 02/23/22 08:01 Dose: 40 mg Documented By: MARIELOS Gabapentin (Gabapentin 100 Mg Cap) 100 mg PO TID [facility] Stop: 03/25/22 08:59 Last Admin: 02/23/22 08:01 Dose: 100 mg Documented By: MARIELOS Lactulose (Lactulose Syrup 20 Gm/30 Ml Udc) 20 gm PO QID [facility] Stop: 03/25/22 08:59 Last Admin: 02/23/22 07:59 Dose: 20 gm Documented By: MARIELOS Lorazepam (Lorazepam 1 Mg/1 Ml Syr) 0.5 mg IV Q4H PRN; Protocol PRN Reason: Anxiety/Agitation Stop: 03/25/22 00:13 Last Admin: 02/23/22 00:55 Dose: 0.5 mg Documented By: MICHAEL Magnesium Oxide (Magnesium Oxide 400 Mg Tab) 400 mg PO BID ANNMARIE Stop: 03/25/22 08:59 Last Admin: 02/23/22 08:02 Dose: 400 mg Documented By: MARIELOS Multivitamins/Minerals (Cerovite Adv Formula Tab) 1 tab PO QAM ANNMARIE Stop: 03/25/22 08:59 Last Admin: 02/23/22 08:02 Dose: 1 tab Documented By: MARIELOS Pantoprazole Sodium (Pantoprazole 40 Mg Tab) 40 mg PO QAM ANNMARIE Stop: 03/25/22 08:59 Last Admin: 02/23/22 08:02 Dose: 40 mg Documented By: MARIELOS Rifaximin (Rifaximin 550 Mg Tablet) 550 mg PO BID ANNMARIE Stop: 03/25/22 08:59 Last Admin: 02/23/22 08:01 Dose: 550 mg Documented By: MARIELOS Saccharomyces Boulardii (Saccharomyces Boulardii 250 Mg Cap) 250 mg PO DAILY ANNMARIE Stop: 03/25/22 08:59 Last Admin: 02/23/22 08:03 Dose: 250 mg Documented By: MARIELOS Spironolactone (Spironolactone 100 Mg Tab) 100 mg PO DAILY ANNMARIE Stop: 03/25/22 08:59 Last Admin: 02/23/22 08:01 Dose: 100 mg Documented By: MARIELOS Thiamine HCl (Thiamine Hcl 100 Mg Tab) 100 mg PO QAM ANNMARIE Stop: 03/25/22 08:59 Last Admin: 02/23/22 08:03 Dose: 100 mg Documented By: MARIELOS Discontinued Medications Gadobutrol (Gadobutrol 65ml Vial) 9 ml IV ONCE ONE Stop: 02/23/22 01:40 Last Admin: 02/23/22 01:40 Dose: 9 ml Documented By: ROSANA Sodium Chloride (Nss 1000ml) 1,000 mls @ 999 mls/hr IV .Q1H1M ONE Stop: 02/22/22 21:28 Last Infusion: 02/22/22 21:41 Dose: 0 mls/hr Documented By: Admin: 02/22/22 20:37 Dose: 999 mls/hr Documented By: KT Magnesium Sulfate/Dextrose (Magnesium Sulfate / D5w) 1 gm in 100 mls @ 50 mls/hr IV ONE ONE Stop: 02/23/22 00:46 Last Infusion: 02/23/22 01:02 Dose: 0 mls/hr Documented By: Admin: 02/22/22 23:09 Dose: 50 mls/hr Documented By: ANN Sodium Chloride (Nss 1000ml) 1,000 mls @ 50 mls/hr IV .Q20H ANNMARIE Stop: 02/23/22 10:13 Last Admin: 02/23/22 03:56 Dose: 50 mls/hr Documented By: MICHAEL Thiamine HCl 500 mg/ Sodium (Chloride) 55 mls @ 220 mls/hr IV NOW STA Stop: 02/23/22 00:39 Last Infusion: 02/23/22 02:44 Dose: 0 mls/hr Documented By: Admin: 02/23/22 02:24 Dose: 220 mls/hr Documented By: MICHAEL Multivitamins 10 ml/ Thiamine HCl 100 mg/ Folic Acid 1 mg/Sodium Chloride 1,011.2 mls @ 1,011.2 mls/hr IV .Q1H ONE Stop: 02/23/22 01:29 Last Infusion: 02/23/22 03:56 Dose: 0 mls/hr Documented By: Admin: 02/23/22 02:42 Dose: 1,011.2 mls/hr Documented By: MICHAEL Ioversol (Optiray 320 500ml) 112 ml IV ONCE ONE Stop: 02/22/22 20:16 Last Admin: 02/22/22 20:15 Dose: 112 ml Documented By: DELANEY Oxycodone HCl (Oxycodone Hcl Ir 5 Mg Tab (Immediate Release)) 5 mg PO NOW STA Stop: 02/23/22 00:48 Last Admin: 02/23/22 00:54 Dose: 5 mg Documented By: MICHAEL Description This is a 21 electrode EEG with a single channel dedicated to limited EKG. The electrodes were placed in accordance with the International 10-20 system. Interpretation During restful wakefulness, there is low amplitude, up to 7 Hz posterior activity, attenuates some with eye opening bilaterally. Background activity shows good organization with low amplitude, and diffuse slowing, composed of low amplitude 2 to 3 Hz delta, intermixed with 4 to 7 Hz low amplitude theta waveforms. There is no asymmetry. With extreme lesions induce posterior driving responses bilaterally. Hyperventilation is not attempted. There is no sleep-related pattern. There are no electrographic seizures or epileptogenic discharges. Impression: This EEG, recorded in wakefulness only, is slightly abnormal due to diffuse slowing, consistent with bihemispheric dysfunction, as seen in encephalopathies. There is no electrographic seizures or epileptogenic discharge. Clinical Correlation Normal interictal routine EEG does not rule out seizure disorder definitively. Clinical correlation is suggested.
--- NOTE | 2022-02-23 14:07 | Neurology Consultation ---
Date of Consultation February 23, 2022 Assessment & Plan (1) Acute alteration in mental status: Impression: The patient had unusual physical activity yesterday, and was having muscle aches, and took 2 oxycodone pills. He began responding poorly, was breathing fast, and sweaty, and had stiffness in her arms. This episode lasted for few minutes without total loss of consciousness, myoclonic activity, urinary incontinence or tongue biting. No history of seizure or seizure-like activities. Comprehensive work-up including brain MRI, CT angiography's of head and neck were all unremarkable. EEG did not show any epileptogenic activity. Such episode can be due to side effect from oxycodone, hyperventilation, or near syncope. There is no history or finding to suggest seizures, or acute cerebrovascular accident. Recommendations: The patient should be careful not to take sedative/narcotic medications more than the recommended dosage. There is no indication for antiepileptic medication. If the patient experience any similar episodes or other symptoms including staring spells, stereotyped movements, loss of consciousness, or tonic-clonic activity, he will inform his physician and will stop driving motor vehicles. The patient is neurologically stable and can be discharged home. Follow-up at neurology clinic. I will inform [facility] neurology clinic to set up a follow-up appointment. (2) Alcoholic cirrhosis: Impression: The patient is a candidate for liver transplantation. He has not been drinking alcoholic beverages for last few months. Plan Thank you for the consultation. History of Present Illness Reason for Consultation: Episode of AMS Requesting Physician: Eliot Valdes Attending Physician: Danna Espinoza MD History of Present Illness The patient is a 56-year-old pleasant gentleman, who was brought to emergency department by EMS, after the patient had an episode of altered mental status with bilateral upper extremity stiffness, yesterday. He did not lose consciousness, but he was not responding normally. Apparently, he was somewhat confused. The patient was feeling well yesterday, and he worked on a vehicle on driveway earlier in the day. He took 2 oxycodone pills, because of muscle aches in arms, hands, and thighs. He went back inside, and after sitting in the chair, his noticed that he was acting differently, with right arm and hand stiffness, which involved left arm shortly as well. He was able to answer questions, but his look was different, and he was sweaty. There was no myoclonic activity, total loss of consciousness, urinary incontinence or tongue biting. When EMS arrived, they checked a blood sugar and vital signs, which were normal. When the patient arrived to emergency department, his mental status was back to his baseline, and he was not having any stiffness. The patient denies any similar episodes in the past. According to , the patient was breathing somewhat faster than usual when this event happened. In emergency department, head CT, CT angiography of head and neck were unremarkable. Laboratory work-up and vital signs as well as EKG were unremarkable. Toxicology screen was negative. The patient denies having seizure or seizure-like activities in the past. Since admission, he has been neurologically stable and according to , the patient is back to his baseline in terms of cognitive functioning since this morning. Brain MRI did not show acute cerebrovascular accident or other acute pathology. EEG was negative for epileptogenic activity but showed borderline slowing. The patient has history of alcohol cirrhosis, and candidate for liver transplant. The patient was seen by cardiology, and they did not consider any cardiac etiology to cause such episode. I have reviewed the patient's chart and visualized imaging studies personally. I have discussed the case with the patient and family, and I have answered their questions in detail. Allergies Allergy/AdvReac Type Severity Reaction Status Date / Time No Known Drug Allergies Allergy Unknown Verified 11/24/21 15:34 Home Medications Medication Instructions Recorded Confirmed Type atorvastatin 20 mg tablet 20 mg PO HS 01/18/18 12/09/21 History pantoprazole 40 mg tablet,delayed 40 mg PO QAM 07/26/18 12/09/21 History release Saccharomyces boulardii 250 mg 250 mg PO DAILY #10 caps 06/07/21 12/09/21 Rx capsule (Florastor) lactulose 10 gram/15 mL oral 30 ml PO QID 11/24/21 12/09/21 History solution magnesium oxide 400 mg (241.3 mg 400 mg PO AMHS 11/24/21 12/09/21 History magnesium) tablet oxycodone 5 mg tablet 5 mg PO Q4 PRN Pain, Severe 11/24/21 12/09/21 History furosemide 40 mg tablet 40 mg PO DAILY 02/23/22 02/23/22 History gabapentin 100 mg capsule 100 mg PO TID 02/23/22 02/23/22 History rifaximin 550 mg tablet (Xifaxan) 550 mg PO BID 02/23/22 02/23/22 History spironolactone 100 mg tablet 100 mg PO DAILY 02/23/22 02/23/22 History Patient History Medical History Abnormal PFT Acid reflux Acute alteration in mental status Cirrhosis of liver Elevated LFTs GERD (gastroesophageal reflux disease) H/O angioedema ongoing, follows with allergy HLD (hyperlipidemia) HTN (hypertension) Hyperlipidemia Hypertension Nausea Thrombocytopenia UTI (urinary tract infection) Surgical History History of appendectomy History of appendectomy History of bowel resection 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 History of colonoscopy History of esophagogastroduodenoscopy (EGD) History of tooth extraction Family History Father Hearing loss Hypertension Stroke Heart disease Other No pertinent family history in first degree relatives Denies family history of No family history of adverse response to anesthesia No family history of bleeding disorder Allergies Asthma Social History Smoking Status: Former smoker Tobacco Type: Cigarettes Cigarettes Per Day: 1-2; Second Hand Exposure: No; Do You Dip or Chew Tobacco: No; Tobacco Cessation Education Requested by Patient: No Hx Alcohol Use: No Hx Substance Use: No Preferred Language: [place] Islander Communication Ability: Effective 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 HEENT: Normal exam with inspection. CV: Hearth rhythm is regular. Neck: Supple, no carotid bruits. Lungs: Non-labored and comfortable breathing. Abdomen: Soft, non-tender, non-distended. Skin: No rash or ecchymosis. Extremities: No edema or cyanosis NEUROLOGICAL EXAMINATION: Mental Status: Alert and oriented to place, person and time. Cranial Nerves: II-XII are intact. No nystagmus. Funduscopy: Normal looking optic discs. Motor: 5/5 in all extremities without asymmetry. Tone: Normal without spasticity or rigidity. Sensory: Intact to all sensory modalities. DTRs: 2- all. No Babinski Coordination: No dysmetria with FTN testing. Speech: Fluent. Comprehension is intact. Gait: Normal. No ataxia or abnormal walking pattern. Musculoskeletal: Normal muscle bulk, no atrophy. Results & Data ([facility]) Vital Signs (Past 12 Hours) Vital Signs Temp Pulse Pulse Resp BP Pulse Ox O2 Del Method 02/23/22 11:00 36.6 C 102 H 18 135/71 99 Room Air 02/23/22 08:50 70 02/23/22 07:49 36.5 C 100 H 18 120/61 97 Room Air 02/23/22 03:15 36.7 C 82 18 121/75 97 Room Air Laboratory Results Laboratory Results - last 24 hr 02/22/22 02/22/22 02/22/22 19:31 19:31 19:31 WBC 12.15 H RBC 3.60 L Hgb 12.3 L Hct 35.2 L MCV 97.8 MCH 34.2 H MCHC 34.9 RDW Std Deviation 51.8 H RDW Coeff of Fabiola 14.4 Plt Count 74 L MPV 12.2 Immature Gran % (Auto) 0.3 Neut % (Auto) 73.8 Lymph % (Auto) 13.3 [place] % (Auto) 11.6 Eos % (Auto) 0.7 Baso % (Auto) 0.3 Neut # (Auto) 8.97 H Lymph # (Auto) 1.61 [place] # (Auto) 1.41 H Eos # (Auto) 0.08 Baso # (Auto) 0.04 Immature Gran # (Auto) 0.04 H Polychromasia PT 13.8 H INR 1.3 H APTT 25.0 PTT Ratio 0.9 VBG pH VBG pCO2 VBG pO2 VBG HCO3 VBG O2 Saturation VBG Base Excess Sodium 140 Potassium 3.8 Chloride 112 H Carbon Dioxide 20 L Anion Gap 8 BUN 23 Creatinine 1.06 Est Cr Clr Drug Dosing 76.9 Est GFR ( Amer) 89.9 Est GFR (Non-Af Amer) 77.5 BUN/Creatinine Ratio 21.7 H Glucose 106 H POC Glucose Estimat Average Glucose Hemoglobin A1c Osmolality Lactate Calcium 8.8 Magnesium 1.7 Total Bilirubin 2.0 H Direct Bilirubin AST 65 H ALT 52 Alkaline Phosphatase 102 Ammonia Troponin I High Sens 12.9 D Total Protein 6.8 Albumin 3.5 Globulin 3.3 Albumin/Globulin Ratio 1.1 Triglycerides Cholesterol LDL Cholesterol, Calc VLDL Cholesterol, Calc HDL Cholesterol Cholesterol/HDL Ratio TSH Prolactin Urine Color Urine Appearance Urine pH Ur Specific [place] Urine Protein Urine Glucose (UA) Urine Ketones Urine Blood Urine Nitrite Urine Bilirubin Urine Urobilinogen Ur Leukocyte Esterase Urine WBC (Auto) Urine RBC (Auto) U Hyaline Cast (Auto) U Epithel Cells (Auto) Urine Bacteria (Auto) Urine Opiates Screen Ur Methadone, Qual Urine Barbiturates Ur Phencyclidine (PCP) U Amphetamin/Meth Scrn MDMA (Ecstasy) Screen U Benzodiazepines Scrn Ur Cocaine Metabolite U Marijuana (THC) Screen Ethyl Alcohol mg/dL SARS-CoV-2, RNA, NAAT 02/22/22 02/22/22 02/22/22 19:31 19:39 20:31 WBC RBC Hgb Hct MCV MCH MCHC RDW Std Deviation RDW Coeff of Fabiola Plt Count MPV Immature Gran % (Auto) Neut % (Auto) Lymph % (Auto) [place] % (Auto) Eos % (Auto) Baso % (Auto) Neut # (Auto) Lymph # (Auto) [place] # (Auto) Eos # (Auto) Baso # (Auto) Immature Gran # (Auto) Polychromasia PT INR APTT PTT Ratio VBG pH VBG pCO2 VBG pO2 VBG HCO3 VBG O2 Saturation VBG Base Excess Sodium Potassium Chloride Carbon Dioxide Anion Gap BUN Creatinine Est Cr Clr Drug Dosing Est GFR ( Amer) Est GFR (Non-Af Amer) BUN/Creatinine Ratio Glucose POC Glucose 113 H Estimat Average Glucose Hemoglobin A1c Osmolality Lactate Calcium Magnesium Total Bilirubin Direct Bilirubin AST ALT Alkaline Phosphatase Ammonia Troponin I High Sens Total Protein Albumin Globulin Albumin/Globulin Ratio Triglycerides Cholesterol LDL Cholesterol, Calc VLDL Cholesterol, Calc HDL Cholesterol Cholesterol/HDL Ratio TSH 1.096 Prolactin Urine Color Urine Appearance Urine pH Ur Specific [place] Urine Protein Urine Glucose (UA) Urine Ketones Urine Blood Urine Nitrite Urine Bilirubin Urine Urobilinogen Ur Leukocyte Esterase Urine WBC (Auto) Urine RBC (Auto) U Hyaline Cast (Auto) U Epithel Cells (Auto) Urine Bacteria (Auto) Urine Opiates Screen Ur Methadone, Qual Urine Barbiturates Ur Phencyclidine (PCP) U Amphetamin/Meth Scrn MDMA (Ecstasy) Screen U Benzodiazepines Scrn Ur Cocaine Metabolite U Marijuana (THC) Screen Ethyl Alcohol mg/dL < 10.0 SARS-CoV-2, RNA, NAAT 02/22/22 02/22/22 02/22/22 20:31 20:31 20:31 WBC RBC Hgb Hct MCV MCH MCHC RDW Std Deviation RDW Coeff of Fabiola Plt Count MPV Immature Gran % (Auto) Neut % (Auto) Lymph % (Auto) [place] % (Auto) Eos % (Auto) Baso % (Auto) Neut # (Auto) Lymph # (Auto) [place] # (Auto) Eos # (Auto) Baso # (Auto) Immature Gran # (Auto) Polychromasia PT INR APTT PTT Ratio VBG pH 7.36 VBG pCO2 39 VBG pO2 31 VBG HCO3 22 VBG O2 Saturation < 60.0 VBG Base Excess -3.1 Sodium Potassium Chloride Carbon Dioxide Anion Gap BUN Creatinine Est Cr Clr Drug Dosing Est GFR ( Amer) Est GFR (Non-Af Amer) BUN/Creatinine Ratio Glucose POC Glucose Estimat Average Glucose Hemoglobin A1c Osmolality Lactate Calcium Magnesium Total Bilirubin Direct Bilirubin 0.4 H AST ALT Alkaline Phosphatase Ammonia 39.0 Troponin I High Sens 15.6 Total Protein Albumin Globulin Albumin/Globulin Ratio Triglycerides Cholesterol LDL Cholesterol, Calc VLDL Cholesterol, Calc HDL Cholesterol Cholesterol/HDL Ratio TSH Prolactin Urine Color Urine Appearance Urine pH Ur Specific [place] Urine Protein Urine Glucose (UA) Urine Ketones Urine Blood Urine Nitrite Urine Bilirubin Urine Urobilinogen Ur Leukocyte Esterase Urine WBC (Auto) Urine RBC (Auto) U Hyaline Cast (Auto) U Epithel Cells (Auto) Urine Bacteria (Auto) Urine Opiates Screen Ur Methadone, Qual Urine Barbiturates Ur Phencyclidine (PCP) U Amphetamin/Meth Scrn MDMA (Ecstasy) Screen U Benzodiazepines Scrn Ur Cocaine Metabolite U Marijuana (THC) Screen Ethyl Alcohol mg/dL SARS-CoV-2, RNA, NAAT 02/22/22 02/22/22 02/22/22 20:31 20:31 20:31 WBC RBC Hgb Hct MCV MCH MCHC RDW Std Deviation RDW Coeff of Fabiola Plt Count MPV Immature Gran % (Auto) Neut % (Auto) Lymph % (Auto) [place] % (Auto) Eos % (Auto) Baso % (Auto) Neut # (Auto) Lymph # (Auto) [place] # (Auto) Eos # (Auto) Baso # (Auto) Immature Gran # (Auto) Polychromasia PT INR APTT PTT Ratio VBG pH VBG pCO2 VBG pO2 VBG HCO3 VBG O2 Saturation VBG Base Excess Sodium Potassium Chloride Carbon Dioxide Anion Gap BUN Creatinine Est Cr Clr Drug Dosing Est GFR ( Amer) Est GFR (Non-Af Amer) BUN/Creatinine Ratio Glucose POC Glucose Estimat Average Glucose Hemoglobin A1c Osmolality 303 H Lactate 1.4 Calcium Magnesium Total Bilirubin Direct Bilirubin AST ALT Alkaline Phosphatase Ammonia Troponin I High Sens Total Protein Albumin Globulin Albumin/Globulin Ratio Triglycerides Cholesterol LDL Cholesterol, Calc VLDL Cholesterol, Calc HDL Cholesterol Cholesterol/HDL Ratio TSH Prolactin 13.85 Urine Color Urine Appearance Urine pH Ur Specific [place] Urine Protein Urine Glucose (UA) Urine Ketones Urine Blood Urine Nitrite Urine Bilirubin Urine Urobilinogen Ur Leukocyte Esterase Urine WBC (Auto) Urine RBC (Auto) U Hyaline Cast (Auto) U Epithel Cells (Auto) Urine Bacteria (Auto) Urine Opiates Screen Ur Methadone, Qual Urine Barbiturates Ur Phencyclidine (PCP) U Amphetamin/Meth Scrn MDMA (Ecstasy) Screen U Benzodiazepines Scrn Ur Cocaine Metabolite U Marijuana (THC) Screen Ethyl Alcohol mg/dL SARS-CoV-2, RNA, NAAT 02/22/22 02/22/22 02/22/22 20:45 20:45 22:30 WBC RBC Hgb Hct MCV MCH MCHC RDW Std Deviation RDW Coeff of Fabiola Plt Count MPV Immature Gran % (Auto) Neut % (Auto) Lymph % (Auto) [place] % (Auto) Eos % (Auto) Baso % (Auto) Neut # (Auto) Lymph # (Auto) [place] # (Auto) Eos # (Auto) Baso # (Auto) Immature Gran # (Auto) Polychromasia PT INR APTT PTT Ratio VBG pH VBG pCO2 VBG pO2 VBG HCO3 VBG O2 Saturation VBG Base Excess Sodium Potassium Chloride Carbon Dioxide Anion Gap BUN Creatinine Est Cr Clr Drug Dosing Est GFR ( Amer) Est GFR (Non-Af Amer) BUN/Creatinine Ratio Glucose POC Glucose Estimat Average Glucose Hemoglobin A1c Osmolality Lactate Calcium Magnesium Total Bilirubin Direct Bilirubin AST ALT Alkaline Phosphatase Ammonia Troponin I High Sens Total Protein Albumin Globulin Albumin/Globulin Ratio Triglycerides Cholesterol LDL Cholesterol, Calc VLDL Cholesterol, Calc HDL Cholesterol Cholesterol/HDL Ratio TSH Prolactin Urine Color Yellow Urine Appearance Clear Urine pH 6.0 Ur Specific [place] > 1.045 H Urine Protein Trace H Urine Glucose (UA) Negative Urine Ketones Negative Urine Blood 2+ H Urine Nitrite Negative Urine Bilirubin Negative Urine Urobilinogen Negative Ur Leukocyte Esterase Negative Urine WBC (Auto) 1-5 Urine RBC (Auto) 5-10 H U Hyaline Cast (Auto) 1-5 U Epithel Cells (Auto) 0-5 Urine Bacteria (Auto) Negative Urine Opiates Screen Neg Ur Methadone, Qual Neg Urine Barbiturates Neg Ur Phencyclidine (PCP) Neg U Amphetamin/Meth Scrn Neg MDMA (Ecstasy) Screen Neg U Benzodiazepines Scrn Neg Ur Cocaine Metabolite Neg U Marijuana (THC) Screen Neg Ethyl Alcohol mg/dL SARS-CoV-2, RNA, NAAT NEGATIVE 02/23/22 02/23/22 02/23/22 01:01 07:25 07:25 WBC 8.05 RBC 3.18 L Hgb 10.7 L Hct 30.9 L MCV 97.2 MCH 33.6 MCHC 34.6 RDW Std Deviation 51.9 H RDW Coeff of Fabiola 14.4 Plt Count 55 L MPV 11.9 Immature Gran % (Auto) 0.5 Neut % (Auto) 55.2 Lymph % (Auto) 24.2 [place] % (Auto) 11.9 Eos % (Auto) 7.6 Baso % (Auto) 0.6 Neut # (Auto) 4.44 Lymph # (Auto) 1.95 [place] # (Auto) 0.96 H Eos # (Auto) 0.61 H Baso # (Auto) 0.05 Immature Gran # (Auto) 0.04 H Polychromasia 1+ PT INR APTT PTT Ratio VBG pH VBG pCO2 VBG pO2 VBG HCO3 VBG O2 Saturation VBG Base Excess Sodium 140 Potassium 3.7 Chloride 114 H Carbon Dioxide 21 Anion Gap 5 BUN 19 Creatinine 0.78 Est Cr Clr Drug Dosing 113.7 Est GFR ( Amer) 116.1 Est GFR (Non-Af Amer) 100.2 BUN/Creatinine Ratio 24.4 H Glucose 80 POC Glucose Estimat Average Glucose Hemoglobin A1c Osmolality Lactate Calcium 7.9 L Magnesium Total Bilirubin Direct Bilirubin AST ALT Alkaline Phosphatase Ammonia Troponin I High Sens 14.9 16.6 Total Protein Albumin Globulin Albumin/Globulin Ratio Triglycerides 59 Cholesterol 98 LDL Cholesterol, Calc 43 VLDL Cholesterol, Calc 12 HDL Cholesterol 43 Cholesterol/HDL Ratio 2.3 TSH Prolactin Urine Color Urine Appearance Urine pH Ur Specific [place] Urine Protein Urine Glucose (UA) Urine Ketones Urine Blood Urine Nitrite Urine Bilirubin Urine Urobilinogen Ur Leukocyte Esterase Urine WBC (Auto) Urine RBC (Auto) U Hyaline Cast (Auto) U Epithel Cells (Auto) Urine Bacteria (Auto) Urine Opiates Screen Ur Methadone, Qual Urine Barbiturates Ur Phencyclidine (PCP) U Amphetamin/Meth Scrn MDMA (Ecstasy) Screen U Benzodiazepines Scrn Ur Cocaine Metabolite U Marijuana (THC) Screen Ethyl Alcohol mg/dL SARS-CoV-2, RNA, NAAT 02/23/22 02/23/22 07:25 07:25 WBC RBC Hgb Hct MCV MCH MCHC RDW Std Deviation RDW Coeff of Fabiola Plt Count MPV Immature Gran % (Auto) Neut % (Auto) Lymph % (Auto) [place] % (Auto) Eos % (Auto) Baso % (Auto) Neut # (Auto) Lymph # (Auto) [place] # (Auto) Eos # (Auto) Baso # (Auto) Immature Gran # (Auto) Polychromasia PT INR APTT PTT Ratio VBG pH VBG pCO2 VBG pO2 VBG HCO3 VBG O2 Saturation VBG Base Excess Sodium Cancelled Potassium Cancelled Chloride Cancelled Carbon Dioxide Cancelled Anion Gap Cancelled BUN Cancelled Creatinine Cancelled Est Cr Clr Drug Dosing Cancelled Est GFR ( Amer) Cancelled Est GFR (Non-Af Amer) Cancelled BUN/Creatinine Ratio Cancelled Glucose Cancelled POC Glucose Estimat Average Glucose 88 Hemoglobin A1c 4.7 Osmolality Lactate Calcium Cancelled Magnesium Total Bilirubin Direct Bilirubin AST ALT Alkaline Phosphatase Ammonia Troponin I High Sens Total Protein Albumin Globulin Albumin/Globulin Ratio Triglycerides Cancelled Cholesterol Cancelled LDL Cholesterol, Calc Cancelled VLDL Cholesterol, Calc Cancelled HDL Cholesterol Cancelled Cholesterol/HDL Ratio Cancelled TSH Prolactin Urine Color Urine Appearance Urine pH Ur Specific [place] Urine Protein Urine Glucose (UA) Urine Ketones Urine Blood Urine Nitrite Urine Bilirubin Urine Urobilinogen Ur Leukocyte Esterase Urine WBC (Auto) Urine RBC (Auto) U Hyaline Cast (Auto) U Epithel Cells (Auto) Urine Bacteria (Auto) Urine Opiates Screen Ur Methadone, Qual Urine Barbiturates Ur Phencyclidine (PCP) U Amphetamin/Meth Scrn MDMA (Ecstasy) Screen U Benzodiazepines Scrn Ur Cocaine Metabolite U Marijuana (THC) Screen Ethyl Alcohol mg/dL SARS-CoV-2, RNA, NAAT Diagnostic Findings Chest CTA 02/22/22 19:41 CT ANGIOGRAPHY OF THE CHEST DISSECTION PROTOCOL CLINICAL HISTORY: Chest pain. Evaluate for dissection. COMPARISON STUDY: Chest CT November 24, 2021 and chest radiograph December 09, 2021. TECHNIQUE: Before and following the IV administration of 107 mL of Optiray, helical axial images of the chest were obtained. Maximal intensity projections and sagittal and coronal reformats were viewed on an independent 3D workstation. IV contrast was administered without complication. Automated exposure control was utilized for the study. A dose lowering technique was utilized adhering to the principles of ALARA. FINDINGS: This exam is compromised by motion artifact and suboptimal vascular opacification. No thoracic aortic dissection or intramural hematoma is present. Slight dilatation of the aortic root at the level of the sinuses of Valsalva similar to prior exam measuring approximately 4 cm. There is no pericardial effusion. No enlarged thoracic lymph nodes are present. No central pulmonary embolus is identified. There is no pneumothorax or pleural effusion. There is no consolidation to suggest pneumonia. Central airways are patent. There is bilateral gynecomastia. The liver is cirrhotic. Upper abdominal varices are noted. The abdomen and pelvis CT will be reported separately. IMPRESSION: 1. No thoracic aortic dissection. Exam mildly compromised due to artifact. 2. No acute intrathoracic findings. 3. Cirrhosis with varices. Findings are better depicted on the CT of the abdomen and pelvis which will be reported separately. ACT 112: Negative or not required by law. Electronically signed by: Hira Cordova M.D. 02/22/2022 8:[address] 02/22/22 19:41 CT OF THE HEAD WITHOUT CONTRAST CLINICAL HISTORY: Stroke Like Symptoms COMPARISON STUDY: Head CT December 09, 2021. TECHNIQUE: Helical axial images of the head were obtained without IV contrast. Automated exposure control was utilized for the study. A dose lowering technique was utilized adhering to the principles of ALARA. FINDINGS: No acute intracranial hemorrhage, midline shift or mass effect is present. The ventricular system is unremarkable. The basal cisterns are patent. No extra-axial collections are present. There are no findings to suggest acute dural sinus thrombosis or acute territorial infarct. No significant calvarial abnormalities are present. Visualized portions of the sinuses and mastoid air cells are clear. IMPRESSION: No acute intracranial findings. ACT 112: Negative or not required by law. Electronically signed by: Hira Cordova M.D. 02/22/2022 8:27 PM Head CTA 02/22/22 19:41 CTA ANGIOGRAPHY OF THE HEAD CLINICAL HISTORY: Stroke Like Symptoms COMPARISON STUDY: CTA of the head May 20, 2019. TECHNIQUE: Helical axial images of the head were obtained following uneventful intravenous administration of 107 cc of Optiray. Sagittal and coronal reconstructions were viewed as well as maximal intensity projections on an in dependent 3-D workstation. Automated exposure control was utilized for the study. A dose lowering technique was utilized adhering to the principles of ALARA. FINDINGS: This exam is compromised by suboptimal vascular opacification. However, the bilateral M1, M2, A1 and A2 segments are patent. There is mild plaque within bilateral cavernous carotids without significant stenosis. No central vessel occlusion is identified on this examination. The posterior circulation is intact. There is no intracranial aneurysm. The appearance is similar to CTA of May 20, 2019. IMPRESSION: Exam compromised by suboptimal opacification. However, no central vessel occlusion. No intracranial aneurysm identified. ACT 112: Negative or not required by law. Electronically signed by: Hira Cordova M.D. 02/22/2022 8:38 PM Neck CTA 02/22/22 19:41 CT ANGIOGRAPHY OF THE NECK WITH CONTRAST CLINICAL HISTORY: Stroke Like Symptoms COMPARISON STUDY: CTA of the neck May 20, 2019. Technique: CT angiography of the carotid and vertebral arteries was obtained using Optiray and 3D reconstruction on an independent workstation. NASCET criteria was utilized. Automated exposure control was utilized for the study. A dose lowering technique was utilized adhering to the principles of ALARA. Findings: This exam is compromised by suboptimal vascular opacification. However, no stenosis or dissection is identified within the bilateral common carotid, cervical internal carotid or vertebral arteries. There is moderate plaque within the bilateral carotid bifurcations without stenosis. Vertebral arteries are suboptimally assessed due to artifact. The left vertebral artery is dominant. CTA of the head will be reported separately. No acute cervical spine f racture. There is no cervical lymphadenopathy. IMPRESSION: Exam compromised by artifact. However, no stenosis or dissection identified within the major vessels of the neck. ACT 112: Negative or not required by law. Electronically signed by: Hira Cordova M.D. 02/22/2022 8:34 PM Abdomen/Pelvis CT 02/22/22 19:45 CT OF THE ABDOMEN AND PELVIS WITH CONTRAST CLINICAL HISTORY: Altered mental status. COMPARISON STUDY: CT of the abdomen and pelvis November 24, 2021. TECHNIQUE: Following IV administration of 107 mL of Optiray, axial images of the abdomen and pelvis were obtained from the lung bases to the proximal femurs. Images were reviewed in the axial, sagittal, and coronal planes. IV contrast was administered without complication. Automated exposure control was utilized for the study. A dose lowering technique was utilized adhering to the principles of ALARA. CT DOSE: 3884.21 mGy.cm FINDINGS: No pneumatosis, free air or portal venous gas is present. The liver is cirrhotic. Several low attenuation hepatic lesions are unchanged. These favor cysts. This exam is compromised by artifact. Mild splenomegaly is unchanged. Abdominal and pelvic varices are again noted. Trace fluid within the right paracolic gutter is unchanged. The adrenal glands, kidneys and pancreas are unremarkable. There is no hydronephrosis. Infrarenal abdominal aorta is ectatic, measuring 2.7 cm. There is moderate plaque. There is no evidence for a bowel obstruction. No lymphadenopathy is present. Major vasculature is patent. Avascular necrosis of the bilateral femoral heads is again noted. No acute lumbar spine, pelvic or hip fractures are identified. The appearance of the abdomen and pelvis is similar to prior CT. IMPRESSION: 1. Cirrhosis with manifestations of portal hypertension including mild splenomegaly and varices formation. Trace ascites. 2. No bowel obstruction. 3. No significant change since prior abdominal CT of November 04, 2021. ACT 112: Negative or not required by law. Electronically signed by: Hira Cordova M.D. 02/22/2022 8:49 PM Brain MRI 02/23/22 00:14 MRI OF THE BRAIN COMBO CLINICAL HISTORY: Stroke like symptoms. COMPARISON STUDY: CT of the brain dated 02/22/2022. TECHNIQUE: MRI of the brain was performed utilizing various T1 and T2-weighted sequences in the axial, sagittal, and coronal planes. Contrast-enhanced sequences were acquired following the administration of 9 cc of Gadavist. FINDINGS: Brain parenchyma: There is minimal microangiopathic change. Hyperintense T1 signal is noted within the basal ganglia. There is no hemorrhage or mass effect. There is no restricted diffusion to suggest acute ischemia. No enhancing mass lesion is identified on the postcontrast images. Nogueira-white matter differentiation is preserved. No extra-axial fluid collection is seen. The cerebellar tonsils are normal in configuration. Ventricles, sulci, and cisterns: Normal in configuration. Pituitary and sella: Unremarkable. Intracranial vasculature: Normal flow voids are maintained at the skull base. Orbits: The bony orbits are grossly intact. Orbital contents are normal in appearance. Sinuses and mastoids: Clear. Calvarium: Unremarkable. Cervical cord: Partially visualized cervical spinal cord is normal in morphology and signal intensity. IMPRESSION: No acute intracranial abnormality. ACT 112: Negative or not required by law. Electronically signed by: Anderson Henry M.D. 02/23/2022 7:10 AM EEG-- negative for epileptogenic activity. Borderline slowing might suggest slight encephalopathy.
--- NOTE | 2022-02-23 14:31 | Discharge Summary ---
Discharge Summary Date of Service February 23, 2022 Notes For Next Care Provider Titrate down oxycodone dose Medication Changes From Visit Patient's oxycodone reduced to 5mg q6h prn severe pain Admission HPI Per Admitting Provider A 56-year-old male with past medical history significant for hyperlipidemia, seasonal allergic rhinitis, hypertension, history of DC, history of internal hemorrhoids, history of TIA, history of liver cirrhosis, history of GERD, history of subungual hematoma finger of left hand; history of thrombocytopenia, angioedema, history of small-bowel obstruction, history of chronic alcohol abuse, presents with altered mental status. As per the , he was doing okay and around 4-4:30 p.m., he suddenly became stiff s first in the right upper extremity with finger closed and then left upper extremity became stiff. He was sitting on the recliner when it happened and also at that time, his legs got extended mostly on the right leg and was not speaking and EMS was called and was brought in here. His sugars were okay. When he came into the ER, he was totally nonresponsive. Initially, ER doctor thought of calling stroke alert, but his platelets are low and also history of hepatic encephalopathy in the past, so they ordered the labs and ordered the imaging studies. CTA of the head and neck and CT of the head and CTA of the chest, which were all unremarkable. Labs also came back unremarkable, except for some mild elevation of white count.Lactic acid, ammonia levels were okay. ABGs were okay. The patient later opened his eyes and when I saw him, he was back to his normal self, alert and oriented, does not know what happened. He says it happened once before. Says he does not like blacking out. Denies any alcohol use. He says he did not drink alcohol for the last few months. As per the [facility] , he did not drink since 12/2021. His alcohol levels were also normal. His drug screen was okay in the ER. He is afebrile. He has some mild headache. He has blurred visions for the last few days. No earache, no runny nose, no sore throat, no cough,. The patient states that on 02/14/2022 liver biopsy was done and the biopsy results were unremarkable as per the patient and for couple of days after the procedure , he vomited small amount of blood, but that stopped. He gets on and off chest pain and shortness of breath. Currently, there is no chest pain or shortness of breath. He has some abdominal discomfort. He has diarrhea because of his lactulose, his stools are always black. Normal bladder movements. Currently, no swelling in the legs. He says since he has sciatica, he has problem with the left leg, he could not bear much weight on the left leg and sometimes drags that leg as per the , and he is following with the doctors for that and is going for the last 3 months. Currently, hemodynamically stable. Admission Exam Per Admitting Provider GENERAL: The patient is of moderate build, not in acute distress. VITAL SIGNS: Temperature 37, pulse 74, respiratory rate 18, blood pressure 130/78, oxygen 95% on room air. HEENT: Pupils equal, round and reactive to light. Oral mucosa moist. NECK: No JVD, no neck masses. CARDIOVASCULAR: S1 and S2 heard. Regular rate and rhythm. No murmur, no gallop. RESPIRATORY SYSTEM: Normal AP diameter. No accessory muscle use. No wheezing, no crackles. ABDOMEN: Soft, bowel sounds present, nontender, no distention. CENTRAL NERVOUS SYSTEM: Alert and oriented to name and place. Has some difficulty with the dates, could tell his date of . No facial droop. Speech is clear. Power is some global weakness. No pronator drift. Coordination of movements okay. Sensation is intact. Position sense is intact. EXTREMITIES: No edema, no erythema. Principal Dx & Hospital Course #1 = Principal Diagnosis (1) Acute alteration in mental status: Patient presented with altered mental status which resolved at the time of admission. 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 Patient's brief altered mental status may be related to this. acknowledged his oxycodone was recently increased. PDMP was reviewed. Counseled patient about side effects of opioids and need to limit use of opioids Reduce oxycodone to 5mg q6h prn for severe pain. Patient to follow up with PCP PCP can arrange outpatient zio patch testing as well to rule out dysrhythmias Discharge Exam Constitutional + well hydrated; no acute distress Eyes PERRL, conjunctivae normal, anicteric sclerae ENMT external ear and nose normal, oropharynx normal Respiratory normal respiratory effort, lungs clear to auscultation Cardiovascular Rate/Rhythm: regular rate and regular rhythm S1 S2 Gastrointestinal (Abdomen) normal bowel sounds, soft, nontender, no hepatosplenomegaly Musculoskeletal no cyanosis or clubbing, extremities motor strength 5/5 Neurologic PERRL, EOMI, accommodation nl, no face palsy, no dysarthria Psychiatric A+Ox3, euthymic affect Updated Medication List Medication Instructions Recorded Confirmed Type atorvastatin 20 mg tablet 20 mg PO HS 01/18/18 12/09/21 History pantoprazole 40 mg tablet,delayed 40 mg PO QAM 07/26/18 12/09/21 History release Saccharomyces boulardii 250 mg 250 mg PO DAILY #10 caps 06/07/21 12/09/21 Rx capsule (Florastor) lactulose 10 gram/15 mL oral 30 ml PO QID 11/24/21 12/09/21 History solution magnesium oxide 400 mg (241.3 mg 400 mg PO AMHS 11/24/21 12/09/21 History magnesium) tablet furosemide 40 mg tablet 40 mg PO DAILY 02/23/22 02/23/22 History gabapentin 100 mg capsule 100 mg PO TID 02/23/22 02/23/22 History oxycodone 5 mg tablet 5 mg PO Q6H PRN Pain, Severe #3 02/23/22 12/09/21 Rx tabs rifaximin 550 mg tablet (Xifaxan) 550 mg PO BID 02/23/22 02/23/22 History spironolactone 100 mg tablet 100 mg PO DAILY 02/23/22 02/23/22 History Hospital Stay Data Consultations 02/23/22 08:00 Consult Cardiology Routine Consult Neurology Routine Diagnostic Imagining Performed 02/22/22 19:41 CT angio chest dissec wo/w con Stat CT angio head w con Stat CT angio neck with con Stat CT head/brain wo con Stat 02/22/22 19:45 CT abd pelvis IV con only Stat 02/23/22 00:14 MR brain wo/w con Routine Pending Results Patient Have Any Pending Studies at Discharge: No Discharge Instructions Given to Patient (Per Discharging Provider) Mr Gutierrez You came to the hospital after an episode of altered mental status which quickly resolved. All evaluation were unremarkable. PLEASE TAKE YOUR MEDICATIONS ONLY PRESCRIBED. Please reduce the frequency of use of your oxycodone as discussed. Please follow up with your Primary Doctor Total Time Total Time Spent Total Time Spent (In Minutes): 45 Total Time Includes: Examination of the Patient, Discharge Planning, Medication Reconciliation, Communication With Other Providers and Other
[2022-02-23] MEDS ORDERED: ATORVASTATIN 20 MG TAB PO SCH (21:00)
--- NOTE | 2022-02-24 06:40 | Electrocardiogram Report ---
Test Reason : Blood Pressure : / mmHG Vent. Rate : 109 BPM Atrial Rate : 109 BPM P-R Int : 154 ms QRS Dur : 066 ms QT Int : 334 ms P-R-T Axes : 047 021 018 degrees QTc Int : 449 ms Poor data quality, interpretation may be adversely affected Sinus tachycardia Cannot rule out Anterior infarct , age undetermined Abnormal ECG When compared with ECG of 09-DEC-2021 14:32, No significant change Confirmed by Art Washburn ([id number]) on 02/24/2022 6:39:53 AM Referred By: REFERRED SELF Confirmed By:Art Washburn
--- NOTE | 2022-02-24 06:55 | Electrocardiogram Report ---
Test Reason : Blood Pressure : / mmHG Vent. Rate : 069 BPM Atrial Rate : 069 BPM P-R Int : 168 ms QRS Dur : 082 ms QT Int : 424 ms P-R-T Axes : 038 016 019 degrees QTc Int : 454 ms Normal sinus rhythm Normal ECG When compared with ECG of 22-FEB-2022 19:24, Vent. rate has decreased BY 40 BPM Confirmed by Art Washburn ([id number]) on 02/24/2022 6:55:44 AM Referred By: REFERRED SELF Confirmed By:Art Washburn
== END 2022-02-23 15:11 | disposition home or self-care (01) | DRG 948 ==
LOC: ED 19:19 → 2S 22:28

== ENCOUNTER 2023-01-11 09:43 | Observation (INO) ==
[2023-01-11] MEDS ORDERED: ONDANSETRON INJ 2 MG/ML 2 ML VIAL IV STA (10:07)
[2023-01-11] MEDS ORDERED: ACETAMINOPHEN 500 MG TAB PO STA (10:07)
--- NOTE | 2023-01-11 10:11 | Emergency Department Note ---
Impression & Plan Ambulatory dysfunction, Hyperammonemia, Acute pain of left hip ED Provider Note HISTORY OF PRESENT ILLNESS: Patient is a 57-year-old male presenting with left hip pain, shakiness and vomiting. Patient reportedly for the last 4 days has been having episodes of shakiness in which his upper extremities shake. He denies any fevers during this episode. He states in the last 4 days he has had multiple episodes of vomiting and nausea. Does report some left lower quadrant abdominal pain. He is also had progressively worsening left hip pain for 4 months. He has been unable to bear much weight on his left hip secondary to significant arthritis. He reportedly has fallen multiple times in the last few months. Most recent fall was a few weeks ago. Patient has a history of cirrhosis. Denies any chest pain or shortness of breath. He denies any recent sick contact exposures. Patient denies any erythema or swelling to the left hip. ROS: as above PHYSICAL EXAM: Constitutional: Patient appears in no acute distress. HENT: Head: Normocephalic and atraumatic. Eyes: EOMI, PERRL Mouth/Throat: Mucous membranes moist. Neck: Trachea midline. Neck supple. Cardiovascular: RRR, No murmurs, rubs or gallops. Intact distal pulses. Pulmonary/Chest: No respiratory distress. Breath sounds clear and equal bilaterally. No wheezes or rales. Abdominal: Abdomen soft, no tenderness, rebound or guarding. LLQ TTP Musculoskeletal: Left hip is tender to palpation. Skin: Warm and dry. No rash, erythema, pallor or cyanosis Psychiatric: Appropriate mood and affect for situation. Neurological: Alert and keenly responsive. CN II-XII grossly intact, moving all extremities equally and fully. MDM: - Vitals signs stable. - History obtained via patient and patient's . Patient presents with left hip pain, shakiness and vomiting. Patient reports that he has been very shaky in his bilateral upper extremities over the last 4 days. Reports that symptoms seem to be intermittent. He denies any fevers in the last 4 days. He reports multiple episodes of nausea and vomiting in the last 4 days. He does complain of some left lower quadrant abdominal pain. He is also been having progressively worsening left hip pain for the last 4 months. He states that in the last week he has been unable to ambulate secondary to pain in the hip. He has had repeated falls per the , his most recent was a week ago. - Chronic conditions affecting care: HTN; HLD; cirrhosis - Differential diagnoses include, but are not limited to: diverticulitis; ureteral stone; UTI; pneumonia; electrolyte abnormality; hip fracture - Order placed for continuous cardiac monitoring. At this time, monitor showed rate of 70 bpm with normal sinus rhythm, per my interpretation. - External medical records reviewed. - EKG reviewed by myself showed normal sinus rhythm. Rate 64 bpm. QTc 443. No acute ischemic changes. - Laboratory workup interpreted by myself showed normal WBC; stable electrolytes; elevated ammonia (116); normal troponin; normal TSH - UA negative for infection. Noted to be a nitrate positive and have ketones - CXR negative for pneumonia, per my interpretation - Xray pelvis showed severe joint space narrowing at the left femoral acetabular joint with prominent avascular necrosis. - CT abdomen/pelvis with IV contrast showed dilated fluid-filled loops of small bowel, cirrhosis with portal venous hypertension, mild wall thickening of the cecum/ascending colon/terminal ileum. - Patient given 1L NS, 4 mg IV zofran and 50 mcg IV fentanyl in ER for symptomatic management. Given 20 grams PO lactulose for hyperammonemia. - Discussion was had with social services analyst about patient's case and need for admission - Hospitalist consulted for admission - Patient admitted to [facility] for further evaluation and management. ASSESSMENT AND PLAN: Diagnosis: ambulatory dysfunction; left hip pain; hyperammonemia Plan: admit Past Med/Surg History Medical History Abnormal PFT Acid reflux Acute alteration in mental status Cirrhosis of liver Elevated LFTs GERD (gastroesophageal reflux disease) H/O angioedema ongoing, follows with allergy HLD (hyperlipidemia) HTN (hypertension) Hyperlipidemia Hypertension Nausea Thrombocytopenia UTI (urinary tract infection) Surgical History History of appendectomy History of appendectomy History of bowel resection 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 History of colonoscopy History of esophagogastroduodenoscopy (EGD) History of tooth extraction Family History Father Hearing loss Hypertension Stroke Heart disease Other No pertinent family history in first degree relatives Denies family history of No family history of adverse response to anesthesia No family history of bleeding disorder Allergies Asthma Social History Smoking Status: Former smoker Tobacco Type: Cigarettes Cigarettes Per Day: 1-2; Second Hand Exposure: No; Do You Dip or Chew Tobacco: No; Hx Alcohol Use: Yes (former) Alcohol type: beer Hx Substance Use: No Preferred Language: Czech Communication Ability: Effective 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 Beliefs That Will Affect Care: None marital status: Current Living Situation: Significant Other Current Living Situation Comment: LIVES WITH GIRLFRIEND 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 Safe at Home: Yes Assistive Devices: None Allergies Allergies Allergy/AdvReac Type Severity Reaction Status Date / Time No Known Drug Allergies Allergy Unknown Verified 05/16/22 08:03 Home Meds Home Medications Medication Instructions Recorded Confirmed atorvastatin 20 mg tablet 20 mg PO HS 01/18/18 01/11/23 pantoprazole 40 mg tablet,delayed 40 mg PO QAM 07/26/18 01/11/23 release lactulose 10 gram/15 mL oral 30 ml PO QID 11/24/21 01/11/23 solution magnesium oxide 400 mg (241.3 mg 400 mg PO AMHS 11/24/21 01/11/23 magnesium) tablet furosemide 40 mg tablet 40 mg PO DAILY 02/23/22 01/11/23 gabapentin 100 mg capsule 100 mg PO TID 02/23/22 01/11/23 rifaximin 550 mg tablet (Xifaxan) 550 mg PO BID 02/23/22 01/11/23 spironolactone 100 mg tablet 100 mg PO DAILY 02/23/22 01/11/23 fluoxetine 10 mg capsule 10 mg PO QAM 01/11/23 01/11/23 Previous Rx's Medication Instructions Recorded Saccharomyces boulardii 250 mg 250 mg PO DAILY #10 caps 06/07/21 capsule (Florastor) oxycodone 5 mg tablet 5 mg PO Q6H PRN Pain, Severe #3 02/23/22 tabs Results & Data (ED) Vital Signs Vital Signs - 24 hr 01/11/23 09:47 01/11/23 10:40 01/11/23 10:29 Temperature 36.3 C L Temperature Source Temporal Artery Scan Pulse Rate 70 64 65 Pulse Rate from SpO2 Sensor Respiratory Rate 18 20 Respiratory Effort / Characteristics Non-Labored Spontaneous Respiratory Depth Normal Blood Pressure 117/71 Blood Pressure Mean 86 Blood Pressure Position Sitting Pulse Oximetry 99 100 Oxygen Delivery Method Room Air Room Air Sepsis Recent Fever Within 48 Hours No Sepsis New/Unexplained Change in Mental Status N/A Sepsis Action Taken by Nursing No Action Required 01/11/23 10:34 01/11/23 11:00 01/11/23 11:00 Temperature Temperature Source Pulse Rate 63 68 Pulse Rate from SpO2 Sensor 63 67 Respiratory Rate 20 19 Respiratory Effort / Characteristics Respiratory Depth Blood Pressure 110/75 Blood Pressure Mean 86 Blood Pressure Position Pulse Oximetry 100 99 Oxygen Delivery Method Sepsis Recent Fever Within 48 Hours Sepsis New/Unexplained Change in Mental Status Sepsis Action Taken by Nursing 01/11/23 11:30 01/11/23 11:30 01/11/23 12:12 Temperature Temperature Source Pulse Rate 78 81 Pulse Rate from SpO2 Sensor 71 82 Respiratory Rate 19 15 Respiratory Effort / Characteristics Respiratory Depth Blood Pressure 99/71 L Blood Pressure Mean 73 Blood Pressure Position Pulse Oximetry 100 99 Oxygen Delivery Method Room Air Sepsis Recent Fever Within 48 Hours Sepsis New/Unexplained Change in Mental Status Sepsis Action Taken by Nursing 01/11/23 12:30 01/11/23 12:31 01/11/23 12:31 Temperature Temperature Source Pulse Rate 72 67 Pulse Rate from SpO2 Sensor 72 68 Respiratory Rate 20 19 Respiratory Effort / Characteristics Respiratory Depth Blood Pressure 128/75 Blood Pressure Mean 97 Blood Pressure Position Pulse Oximetry 98 98 Oxygen Delivery Method Room Air Sepsis Recent Fever Within 48 Hours Sepsis New/Unexplained Change in Mental Status Sepsis Action Taken by Nursing 01/11/23 13:00 01/11/23 13:00 Temperature Temperature Source Pulse Rate 68 Pulse Rate from SpO2 Sensor 70 Respiratory Rate 21 Respiratory Effort / Characteristics Respiratory Depth Blood Pressure 132/79 Blood Pressure Mean 89 Blood Pressure Position Pulse Oximetry 98 Oxygen Delivery Method Room Air Sepsis Recent Fever Within 48 Hours Sepsis New/Unexplained Change in Mental Status Sepsis Action Taken by Nursing Laboratory Data 01/11/23 10:14 01/11/23 10:14 Lab Results 01/11/23 01/11/23 01/11/23 Range/Units 10:14 10:14 10:14 WBC 7.25 (4.8-10.8) K/ul RBC 4.05 L (4.70-6.10) M/uL Hgb 13.5 L (14.0-18.0) g/dl Hct 38.9 L (42.0-52.0) % MCV 96.0 (80.0-100.0) fL MCH 33.3 (25.0-34.0) pg MCHC 34.7 (32.0-36.0) g/dL RDW Std Deviation 54.0 H (36.4-46.3) fL RDW Coeff of Fabiola 15.3 H (11.5-14.5) % Plt Count 49 L (130-400) K/uL MPV 11.7 (9.4-12.4) fL Immature Gran % (Auto) 0.1 % Neut % (Auto) 57.4 % Lymph % (Auto) 17.7 % [place] % (Auto) 14.5 % Eos % (Auto) 9.5 % Baso % (Auto) 0.8 % Neut # (Auto) 4.16 (1.40-6.50) K/uL Lymph # (Auto) 1.28 (1.20-3.40) K/uL [place] # (Auto) 1.05 H (0.11-0.59) K/uL Eos # (Auto) 0.69 H (0.00-0.50) K/uL Baso # (Auto) 0.06 (0.00-0.20) K/uL Immature Gran # (Auto) 0.01 (0.01-0.20) K/uL PT 13.7 H (9.0-12.0) Seconds INR 1.3 H (0.9-1.1) Sodium 140 (136-145) mmol/L Potassium 3.9 (3.5-5.1) mmol/L Chloride 116 H (98-107) mmol/L Carbon Dioxide 18 L (21-32) mmol/L Anion Gap 6 (3-11) BUN 16 (6-23) mg/dl Creatinine 0.87 (0.6-1.4) mg/dl Est Cr Clr Drug Dosing Not Reportable Est GFR ( Amer) 110.3 ml/min Est GFR (Non-Af Amer) 95.1 ml/min BUN/Creatinine Ratio 18.4 (10-20) Glucose 110 H (70-99(Fasting)) mg/dl Lactate (0.4-2.0) mmol/L Calcium 9.1 (8.6-10.3) mg/dl Magnesium 1.9 (1.7-2.4) mg/dl Total Bilirubin 1.8 H (0.2-1.0) mg/dl AST 39 (13-39) U/L ALT 24 (7-52) U/L Alkaline Phosphatase 164 H (34-104) U/L Ammonia (18-72) umol/L Troponin I High Sens 5.0 (0-20) pg/ml Total Protein 6.4 (6.0-8.3) gm/dl Albumin 3.5 (3.4-5.0) gm/dl Globulin 2.9 (2.5-4.0) gm/dl Albumin/Globulin Ratio 1.2 (0.9-2) TSH 1.545 (0.300-4.500) uIu/ml Urine Color Urine Appearance (Clear) Urine pH (4.5-7.5) Ur Specific [place] (1.000-1.030) Urine Protein (Negative) Urine Glucose (UA) (Negative) Urine Ketones (Negative) Urine Blood (Negative) Urine Nitrite (Negative) Urine Bilirubin (Negative) Urine Urobilinogen (Negative) Ur Leukocyte Esterase (Negative) Urine WBC (Auto) (0-5) /hpf Urine RBC (Auto) (0-4) /hpf U Hyaline Cast (Auto) (0-5) /lpf U Epithel Cells (Auto) (0-5) /lpf Urine Bacteria (Auto) (Negative) Adenovirus (PCR) (NotDetected) B. pertussis DNA (PCR) (NotDetected) B.parapertussis DNA PCR (NotDetected) C. pneumoniae DNA (PCR) (NotDetected) Coronavirus OC43 (PCR) (NotDetected) Coronavirus HKU1 (PCR) (NotDetected) Coronavirus 229E (PCR) (NotDetected) SARS-CoV-2 (PCR) (NotDetected) Coronavirus NL63 (PCR) (NotDetected) Human Metapneumovir PCR (NotDetected) Influenza Type A (PCR) (NotDetected) Influenza Type B (PCR) (NotDetected) M. pneumoniae (PCR) (NotDetected) Parainfluenza 1 (PCR) (NotDetected) Parainfluenza 2 (PCR) (NotDetected) Parainfluenza 3 (PCR) (NotDetected) Parainfluenza 4 (PCR) (NotDetected) RSV (PCR) (NotDetected) Entero/Rhino (PCR) (NotDetected) 01/11/23 01/11/23 01/11/23 Range/Units 10:14 10:14 11:12 WBC (4.8-10.8) K/ul RBC (4.70-6.10) M/uL Hgb (14.0-18.0) g/dl Hct (42.0-52.0) % MCV (80.0-100.0) fL MCH (25.0-34.0) pg MCHC (32.0-36.0) g/dL RDW Std Deviation (36.4-46.3) fL RDW Coeff of Fabiola (11.5-14.5) % Plt Count (130-400) K/uL MPV (9.4-12.4) fL Immature Gran % (Auto) % Neut % (Auto) % Lymph % (Auto) % [place] % (Auto) % Eos % (Auto) % Baso % (Auto) % Neut # (Auto) (1.40-6.50) K/uL Lymph # (Auto) (1.20-3.40) K/uL [place] # (Auto) (0.11-0.59) K/uL Eos # (Auto) (0.00-0.50) K/uL Baso # (Auto) (0.00-0.20) K/uL Immature Gran # (Auto) (0.01-0.20) K/uL PT (9.0-12.0) Seconds INR (0.9-1.1) Sodium (136-145) mmol/L Potassium (3.5-5.1) mmol/L Chloride (98-107) mmol/L Carbon Dioxide (21-32) mmol/L Anion Gap (3-11) BUN (6-23) mg/dl Creatinine (0.6-1.4) mg/dl Est Cr Clr Drug Dosing Est GFR ( Amer) ml/min Est GFR (Non-Af Amer) ml/min BUN/Creatinine Ratio (10-20) Glucose (70-99(Fasting)) mg/dl Lactate 1.3 (0.4-2.0) mmol/L Calcium (8.6-10.3) mg/dl Magnesium (1.7-2.4) mg/dl Total Bilirubin (0.2-1.0) mg/dl AST (13-39) U/L ALT (7-52) U/L Alkaline Phosphatase (34-104) U/L Ammonia 116.0 H (18-72) umol/L Troponin I High Sens (0-20) pg/ml Total Protein (6.0-8.3) gm/dl Albumin (3.4-5.0) gm/dl Globulin (2.5-4.0) gm/dl Albumin/Globulin Ratio (0.9-2) TSH (0.300-4.500) uIu/ml Urine Color Dark Yellow Urine Appearance Clear (Clear) Urine pH 5.5 (4.5-7.5) Ur Specific [place] 1.038 H (1.000-1.030) Urine Protein Negative (Negative) Urine Glucose (UA) Negative (Negative) Urine Ketones 1+ H (Negative) Urine Blood 2+ H (Negative) Urine Nitrite Positive A (Negative) Urine Bilirubin 1+ H (Negative) Urine Urobilinogen Negative (Negative) Ur Leukocyte Esterase Negative (Negative) Urine WBC (Auto) 1-5 (0-5) /hpf Urine RBC (Auto) 10-30 H (0-4) /hpf U Hyaline Cast (Auto) 1-5 (0-5) /lpf U Epithel Cells (Auto) 5-10 H (0-5) /lpf Urine Bacteria (Auto) Negative (Negative) Adenovirus (PCR) (NotDetected) B. pertussis DNA (PCR) (NotDetected) B.parapertussis DNA PCR (NotDetected) C. pneumoniae DNA (PCR) (NotDetected) Coronavirus OC43 (PCR) (NotDetected) Coronavirus HKU1 (PCR) (NotDetected) Coronavirus 229E (PCR) (NotDetected) SARS-CoV-2 (PCR) (NotDetected) Coronavirus NL63 (PCR) (NotDetected) Human Metapneumovir PCR (NotDetected) Influenza Type A (PCR) (NotDetected) Influenza Type B (PCR) (NotDetected) M. pneumoniae (PCR) (NotDetected) Parainfluenza 1 (PCR) (NotDetected) Parainfluenza 2 (PCR) (NotDetected) Parainfluenza 3 (PCR) (NotDetected) Parainfluenza 4 (PCR) (NotDetected) RSV (PCR) (NotDetected) Entero/Rhino (PCR) (NotDetected) 01/11/23 Range/Units 11:12 WBC (4.8-10.8) K/ul RBC (4.70-6.10) M/uL Hgb (14.0-18.0) g/dl Hct (42.0-52.0) % MCV (80.0-100.0) fL MCH (25.0-34.0) pg MCHC (32.0-36.0) g/dL RDW Std Deviation (36.4-46.3) fL RDW Coeff of Fabiola (11.5-14.5) % Plt Count (130-400) K/uL MPV (9.4-12.4) fL Immature Gran % (Auto) % Neut % (Auto) % Lymph % (Auto) % [place] % (Auto) % Eos % (Auto) % Baso % (Auto) % Neut # (Auto) (1.40-6.50) K/uL Lymph # (Auto) (1.20-3.40) K/uL [place] # (Auto) (0.11-0.59) K/uL Eos # (Auto) (0.00-0.50) K/uL Baso # (Auto) (0.00-0.20) K/uL Immature Gran # (Auto) (0.01-0.20) K/uL PT (9.0-12.0) Seconds INR (0.9-1.1) Sodium (136-145) mmol/L Potassium (3.5-5.1) mmol/L Chloride (98-107) mmol/L Carbon Dioxide (21-32) mmol/L Anion Gap (3-11) BUN (6-23) mg/dl Creatinine (0.6-1.4) mg/dl Est Cr Clr Drug Dosing Est GFR ( Amer) ml/min Est GFR (Non-Af Amer) ml/min BUN/Creatinine Ratio (10-20) Glucose (70-99(Fasting)) mg/dl Lactate (0.4-2.0) mmol/L Calcium (8.6-10.3) mg/dl Magnesium (1.7-2.4) mg/dl Total Bilirubin (0.2-1.0) mg/dl AST (13-39) U/L ALT (7-52) U/L Alkaline Phosphatase (34-104) U/L Ammonia (18-72) umol/L Troponin I High Sens (0-20) pg/ml Total Protein (6.0-8.3) gm/dl Albumin (3.4-5.0) gm/dl Globulin (2.5-4.0) gm/dl Albumin/Globulin Ratio (0.9-2) TSH (0.300-4.500) uIu/ml Urine Color Urine Appearance (Clear) Urine pH (4.5-7.5) Ur Specific [place] (1.000-1.030) Urine Protein (Negative) Urine Glucose (UA) (Negative) Urine Ketones (Negative) Urine Blood (Negative) Urine Nitrite (Negative) Urine Bilirubin (Negative) Urine Urobilinogen (Negative) Ur Leukocyte Esterase (Negative) Urine WBC (Auto) (0-5) /hpf Urine RBC (Auto) (0-4) /hpf U Hyaline Cast (Auto) (0-5) /lpf U Epithel Cells (Auto) (0-5) /lpf Urine Bacteria (Auto) (Negative) Adenovirus (PCR) Not Detected (NotDetected) B. pertussis DNA (PCR) Not Detected (NotDetected) B.parapertussis DNA PCR Not Detected (NotDetected) C. pneumoniae DNA (PCR) Not Detected (NotDetected) Coronavirus OC43 (PCR) Not Detected (NotDetected) Coronavirus HKU1 (PCR) Not Detected (NotDetected) Coronavirus 229E (PCR) Not Detected (NotDetected) SARS-CoV-2 (PCR) Not Detected (NotDetected) Coronavirus NL63 (PCR) Not Detected (NotDetected) Human Metapneumovir PCR Not Detected (NotDetected) Influenza Type A (PCR) Not Detected (NotDetected) Influenza Type B (PCR) Not Detected (NotDetected) M. pneumoniae (PCR) Not Detected (NotDetected) Parainfluenza 1 (PCR) Not Detected (NotDetected) Parainfluenza 2 (PCR) Not Detected (NotDetected) Parainfluenza 3 (PCR) Not Detected (NotDetected) Parainfluenza 4 (PCR) Not Detected (NotDetected) RSV (PCR) Not Detected (NotDetected) Entero/Rhino (PCR) Not Detected (NotDetected) Administered Medications Discontinued Medications Acetaminophen (Acetaminophen 500 Mg Tab) 1,000 mg PO NOW STA Stop: 01/11/23 10:08 Last Admin: 01/11/23 11:10 Dose: Not Given Documented By: NOEL Fentanyl Citrate (Fentanyl Citrate Pf 100 Mcg/2 Ml Vial) 50 mcg IV NOW STA Stop: 01/11/23 11:44 Last Admin: 01/11/23 11:51 Dose: 50 mcg Documented By: NOEL Sodium Chloride (Nss) 1,000 mls @ 999 mls/hr IV .Q1H1M ANNMARIE Stop: 01/11/23 11:15 Last Infusion: 01/11/23 13:23 Dose: 0 mls/hr Documented By: Admin: 01/11/23 11:09 Dose: 999 mls/hr Documented By: NOEL Ioversol (Optiray 320 100ml) 93 ml IV ONCE ONE Stop: 01/11/23 12:02 Last Admin: 01/11/23 12:01 Dose: 93 ml Documented By: MAKENZIE Lactulose (Lactulose Syrup 20 Gm/30 Ml Udc) 20 gm PO NOW ONE Stop: 01/11/23 11:44 Last Admin: 01/11/23 11:51 Dose: 20 gm Documented By: NOEL Ondansetron HCl (Ondansetron Inj 2 Mg/Ml 2 Ml Vial) 4 mg IV NOW STA Stop: 01/11/23 10:08 Last Admin: 01/11/23 11:09 Dose: 4 mg Documented By: NOEL Imaging Data Radiologist's Impression: Chest X-Ray 01/11/23 10:07 XR chest 1V portable HISTORY: 57 years-old Male weakness acute weakness COMPARISON: 12/09/2021 TECHNIQUE: AP view of the chest FINDINGS: Cardiac mediastinal and hilar silhouettes are within normal limits. No pneumothorax, pleural effusion, airspace consolidation or pulmonary edema. Bones of the chest appear grossly intact. IMPRESSION: No acute process. ACT 112: Negative or not required by law. The above report was generated using voice recognition software. It may contain grammatical, syntax or spelling errors. Electronically signed by: Gerardo Brown M.D. 01/11/2023 10:53 AM Hip/Pelvis X-Ray 01/11/23 10:07 XR hip LT 2V w pelvis HISTORY: 57 years-old Male left hip pain acute left-sided hip pain COMPARISON: 02/22/2022 TECHNIQUE: AP view of the pelvis with 2 views of the left hip FINDINGS: Severe joint space narrowing of the left femoral acetabular joint with prominent avascular necrosis, subcortical cystic changes and mild articular collapse. Mild osteoarthritis of the right hip with associated avascular necrosis. No associated right femoral head articular collapse. No acute fracture or dis location. IMPRESSION: 1. Severe joint space narrowing of the left femoral acetabular joint with prominent avascular necrosis and mild articular collapse. 2. Mild joint space narrowing of the right hip with associated avascular necrosis of the right femoral head. ACT 112: Negative or not required by law. The above report was generated using voice recognition software. It may contain grammatical, syntax or spelling errors. Electronically signed by: Gerardo Brown M.D. 01/11/2023 11:01 AM Abdomen/Pelvis CT 01/11/23 11:[address] WITH IV CONTRAST CT DOSE: 1159.09 mGy.cm HISTORY: Acute left lower quadrant abdominal pain . Reported prior appendectomy. LLQ pain TECHNIQUE: Multiaxial CT images of the abdomen and pelvis were performed fo llowing the IV administration of 93 cc of Optiray, A dose lowering technique was utilized adhering to the principles of ALARA. COMPARISON STUDY: 02/22/2022 FINDINGS: Cardiomegaly. Clear lung bases. No pneumoperitoneum. Splenomegaly again noted with calcified granulomata. The spleen measures up to at least 14 cm in length. Unremarkable pancreas and adrenal glands. Cholecystectomy. Cirrhotic liver. Scattered hepatic cysts measure up to 12 mm. No solid liver lesions identified. Patent portal vein. Left-sided renal sinus cysts. Mild nonspecific bilateral perinephric stranding. There is no hydronephrosis or urolith identified. Prostatomegaly. Urinary bladder wall thickening with partial distention. Trace ascites. Ectasia of infrarenal abdominal aorta redemonstrated measuring 2.7 x 2.6 cm. There is no lymphadenopathy identified. Varicosities of the abdomen are again noted including distal paraesophageal varices. Mild to moderate colonic fecal retention. There is mild wall thickening of the cecum, ascending colon and distal ileum. No bowel obstruction. Slightly dilated fluid-filled loops of small bowel within the left abdomen measure up to 3.2 cm. No discrete transition point identified. Avascular necrosis of the left greater than right femoral heads with severe left hip joint space narrowing and left femoral articular head collapse. No acute fracture. IMPRESSION: 1. Mildly dilated fluid-filled loops of small bowel within the left abdomen are favored to be physiologic. No definite bowel obstruction identified. 2. Cirrhosis with stigmata of portal venous hypertension. 3. Mild wall thickening of the cecum, ascending colon and terminal ileum may be secondary to portal enteropathy/colopathy. A nonspecific enteritis/colitis could appear similarly. 4. Avascular necrosis of the bilateral femoral heads. Severe joint space narrowing of the left hip with left femoral head articular collapse/articular fragmentation has progressively worsened from the prior exam. 5. Additional findings as above. ACT 112: Negative or not required by law. The above report was generated using voice recognition software. It may contain grammatical, syntax or spelling errors. Electronically signed by: Gerardo Brown M.D. 01/11/2023 12:34 PM Discharge Plan Visit Data Chief Complaint: Hip Pain Stated Complaint: L HIP PAIN,SHAKING,CANT SLEEP,FALL ED Provider: Laila Bullock Discharge Problem: Ambulatory dysfunction, Hyperammonemia, Acute pain of left hip Forms Stand Alone Forms: My [facility] Labs Prescriptions Prescriptions: No Action atorvastatin 20 mg Tablet 20 mg PO HS pantoprazole 40 mg Tablet,Delayed Release (Dr/Ec) 40 mg PO QAM Saccharomyces boulardii [Florastor] 250 mg capsule 250 mg PO DAILY Qty: 10 0RF magnesium oxide 400 mg (241.3 mg magnesium) tablet 400 mg PO AMHS lactulose 10 gram/15 mL solution 30 ml PO QID furosemide 40 mg tablet 40 mg PO DAILY spironolactone 100 mg tablet 100 mg PO DAILY gabapentin 100 mg capsule 100 mg PO TID Xifaxan 550 mg tablet 550 mg PO BID oxycodone 5 mg tablet 5 mg PO Q6H PRN (Reason: Pain, Severe) Qty: 3 0RF fluoxetine 10 mg capsule 10 mg PO QAM Referrals Referrals: Toby Paz MD [Primary Care Provider] -
[2023-01-11] MEDS ORDERED: SODIUM CHLORIDE 0.9% 1,000 ML IV SCH (10:15)
[2023-01-11 10:35] LABS: Basophils # (auto) 0.06 K/uL (0.00-0.20); Basophils % (auto) 0.8 %; Eosinophils # (auto) 0.69 K/uL (0.00-0.50); Eosinophils % (auto) 9.5 %; Hematocrit (blood only) 38.9 % (42.0-52.0); Hemoglobin 13.5 g/dl (14.0-18.0); Immature Granulocytes # (auto) 0.01 K/uL (0.01-0.20); Immature Granulocytes % (auto) 0.1 %; Lymphocytes # (auto) 1.28 K/uL (1.20-3.40); Lymphocytes % (auto) 17.7 %; Mean Corpuscular Hemoglobin 33.3 pg (25.0-34.0); Mean Corpuscular Hgb Conc 34.7 g/dL (32.0-36.0); Mean Platelet Volume 11.7 fL (9.4-12.4); Monocytes # (auto) 1.05 K/uL (0.11-0.59); Monocytes % (auto) 14.5 %; Neutrophils # (auto) 4.16 K/uL (1.40-6.50); Neutrophils % (auto) 57.4 %; Platelet Count 49 K/uL (130-400); RDW Coefficient of Variation 15.3 % (11.5-14.5); Red Blood Count 4.05 M/uL (4.70-6.10); White Blood Count 7.25 K/ul (4.8-10.8)
[2023-01-11 10:54] LABS: Alanine Aminotransferase 24 U/L (7-52); Albumin Globulin Ratio 1.2 (0.9-2); Albumin Level 3.5 gm/dl (3.4-5.0); Alkaline Phosphatase 164 U/L (34-104); Anion Gap 6 (3-11); Aspartate Aminotransferase 39 U/L (13-39); BUN Creatinine Ratio 18.4 (10-20); Bilirubin,Total 1.8 mg/dl (0.2-1.0); Blood Urea Nitrogen 16 mg/dl (6-23); Calcium 9.1 mg/dl (8.6-10.3); Carbon Dioxide 18 mmol/L (21-32); Chloride 116 mmol/L (98-107); Est GFR (African American) 110.3 ml/min; Est GFR (Non-African American) 95.1 ml/min; Globulin 2.9 gm/dl (2.5-4.0); Glucose 110 mg/dl (70-99(Fasting)); Magnesium 1.9 mg/dl (1.7-2.4); Potassium 3.9 mmol/L (3.5-5.1); Sodium 140 mmol/L (136-145); Total Protein 6.4 gm/dl (6.0-8.3)
--- NOTE | 2023-01-11 10:55 | XRay Report ---
XR chest 1V portable HISTORY: 57 years-old Male weakness acute weakness COMPARISON: 12/09/2021 TECHNIQUE: AP view of the chest FINDINGS: Cardiac mediastinal and hilar silhouettes are within normal limits. No pneumothorax, pleural effusion , airspace consolidation or pulmonary edema. Bones of the chest appear grossly intact. IMPRESSION: No acute process. ACT 112: Negative or not required by law. The above report was generated using voice recognition software. It may contain grammatical, syntax o r spelling errors. Electronically signed by: Gerardo Brown M.D. 01/11/2023 10:53 AM
--- NOTE | 2023-01-11 11:02 | XRay Report ---
XR hip LT 2V w pelvis HISTORY: 57 years-old Male left hip pain acute left-sided hip pain COMPARISON: 02/22/2022 TECHNIQUE: AP view of the pelvis with 2 views of the left hip FINDINGS: Severe joint space narrowing of the left femoral acetabular joint with prominent avascular necrosis, subcortical cystic changes and mild articular collapse. Mild osteoarthritis of the right hip with ass ociated avascular necrosis. No associated right femoral head articular collapse. No acute fracture or dislocation. IMPRESSION: 1. Severe joint space narrowing of the left femoral acetabular joint with prominent avascular necrosi s and mild articular collapse. 2. Mild joint space narrowing of the right hip with associated avascular necrosis of the right femora l head. ACT 112: Negative or not required by law. The above report was generated using voice recognition software. It may contain grammatical, syntax o r spelling errors. Electronically signed by: Gerardo Brown M.D. 01/11/2023 11:01 AM
[2023-01-11 11:08] LABS: INR 1.3 (0.9-1.1); Prothrombin Time 13.7 Seconds (9.0-12.0)
[2023-01-11 11:09] LABS: Thyroid Stimulating Hormone 1.545 uIu/ml (0.300-4.500)
[2023-01-11 11:38] LABS: Appearance Urine Clear (Clear); Bacteria Urine Automated Negative (Negative); Bilirubin Urine 1+ (Negative); Blood Urine 2+ (Negative); Color Urine Dark Yellow; Glucose Urine UA Negative (Negative); Ketones Urine 1+ (Negative); Leukocyte Esterase Urine Negative (Negative); Nitrite Urine Positive (Negative); Protein Urine Negative (Negative); Specific Gravity Urine 1.038 (1.000-1.030); Urobilinogen Urine Negative (Negative); pH Urine 5.5 (4.5-7.5)
[2023-01-11] MEDS ORDERED: LACTULOSE SYRUP 20 GM/30 ML UDC PO ONE (11:43)
[2023-01-11] MEDS ORDERED: fentaNYL citrate PF 100 MCG/2 ML VIAL IV STA ×2 (11:43→13:40)
[2023-01-11] MEDS ORDERED: OPTIRAY 320 100ml IV ONE (12:01)
[2023-01-11 12:25] LABS: Adenovirus PCR Not Detected (NotDetected); Bordetella parapertussis PCR Not Detected (NotDetected); Bordetella pertussis PCR Not Detected (NotDetected); Chlamydia pneumoniae PCR Not Detected (NotDetected); Coronavirus 229E PCR Not Detected (NotDetected); Coronavirus CoV-2 (COVID19)PCR Not Detected (NotDetected); Coronavirus HKU1 PCR Not Detected (NotDetected); Coronavirus NL63 PCR Not Detected (NotDetected); Coronavirus OC43PCR Not Detected (NotDetected); Human Metapneumovirus PCR Not Detected (NotDetected); Influenza A PCR Not Detected (NotDetected); Influenza B PCR Not Detected (NotDetected); Mycoplasma pneumoniae PCR Not Detected (NotDetected); Parainfluenza Virus 1 PCR Not Detected (NotDetected); Parainfluenza Virus 2 PCR Not Detected (NotDetected); Parainfluenza Virus 3 PCR Not Detected (NotDetected); Parainfluenza Virus 4 PCR Not Detected (NotDetected); Respiratory Syncytial VirusPCR Not Detected (NotDetected); Rhinovirus/Enterovirus PCR Not Detected (NotDetected)
--- NOTE | 2023-01-11 12:35 | CT Scan Report ---
ABDOMEN AND PELVIS CT WITH IV CONTRAST CT DOSE: 1159.09 mGy.cm HISTORY: Acute left lower quadrant abdominal pain . Reported prior appendectomy. LLQ pain TECHNIQUE: Multiaxial CT images of the abdomen and pelvis were performed following the IV administrat ion of 93 cc of Optiray, A dose lowering technique was utilized adhering to the principles of ALARA. COMPARISON STUDY: 02/22/2022 FINDINGS: Cardiomegaly. Clear lung bases. No pneumoperitoneum. Splenomegaly again noted with calcified granulom arik. The spleen measures up to at least 14 cm in length. Unremarkable pancreas and adrenal glands. Ch olecystectomy. Cirrhotic liver. Scattered hepatic cysts measure up to 12 mm. No solid liver lesions i dentified. Patent portal vein. Left-sided renal sinus cysts. Mild nonspecific bilateral perinephric s tranding. There is no hydronephrosis or urolith identified. Prostatomegaly. Urinary bladder wall thic kening with partial distention. Trace ascites. Ectasia of infrarenal abdominal aorta redemonstrated m easuring 2.7 x 2.6 cm. There is no lymphadenopathy identified. Varicosities of the abdomen are again noted including distal paraesophageal varices. Mild to moderate colonic fecal retention. There is mild wall thickening of the cecum, ascending colon and distal ileu m. No bowel obstruction. Slightly dilated fluid-filled loops of small bowel within the left abdomen m easure up to 3.2 cm. No discrete transition point identified. Avascular necrosis of the left greater than right femoral heads with severe left hip joint space narrowing and left femoral articular head c ollapse. No acute fracture. IMPRESSION: 1. Mildly dilated fluid-filled loops of small bowel within the left abdomen are favored to be physiol ogic. No definite bowel obstruction identified. 2. Cirrhosis with stigmata of portal venous hypertension. 3. Mild wall thickening of the cecum, ascending colon and terminal ileum may be secondary to portal e nteropathy/colopathy. A nonspecific enteritis/colitis could appear similarly. 4. Avascular necrosis of the bilateral femoral heads. Severe joint space narrowing of the left hip wi th left femoral head articular collapse/articular fragmentation has progressively worsened from the p rior exam. 5. Additional findings as above. ACT 112: Negative or not required by law. The above report was generated using voice recognition software. It may contain grammatical, syntax o r spelling errors. Electronically signed by: Gerardo Brown M.D. 01/11/2023 12:34 PM
--- NOTE | 2023-01-11 14:06 | History & Physical Report ---
Date of Service January 11, 2023 Assessment & Plan (1) Acute hepatic encephalopathy: Plan: Patient is 57 y/o M with PMH HTN, HLD, history TIA, history ETOH abuse, cirrhosis, esophageal varices, ascites, hepatic encephalopathy, GERD presented to ER with increased confusion x 5 days. Ammonia level: 116, lactate WNL. No leukocytosis. Hgb: 13.5, PLT: 49, INR: 1.3, T. bili: 1.8, alk phos: 164, AST: 39, ALT: 24 UA: Positive nitrite, 2+ blood, negative leuk esterase, negative bacteria CT Abd/pelvis: Mildly dilated fluid-filled loops of small bowel within the left abdomen are favored to be physiologic. No definite bowel obstruction identified. Cirrhosis with stigmata of portal venous hypertension. Mild wall thickening of the cecum, ascending colon and terminal ileum may be secondary to portal enteropathy/colopathy. A nonspecific enteritis/colitis could appear similarly. Likely hepatic encephalopathy. R/O underlying infection. ?Possible UTI. Chronic nausea, intermittent vomiting with med use without reported acute vomiting. chronic loose stools with lactulose use. Denies abdominal pain. Colitis less likely. Urine culture pending Blood culture pending Start empiric Rocephin In ER given the need dose lactulose Continue lactulose CBC, CMP, ammonia level in a.m. (2) Hip pain: (3) Avascular necrosis of femur: Plan: Known history avascular necrosis of femur Hip/pelvis x-ray: Severe joint space narrowing of the left femoral acetabular joint with prominent avascular necrosis and mild articular collapse. Mild joint space narrowing of the right hip with associated avascular necrosis of the right femoral head. per radiology read. Per my interpretation degenerative changes and space noted femoral head CT ABD/PELVIS: Avascular necrosis of the bilateral femoral heads. Severe joint space narrowing of the left hip with left femoral head articular collapse/articular fragmentation has progressively worsened from the prior exam. Followed with [facility] orthopedics, Dr Short. Initial plan for THR however surgery was cancelled secondary to pt being high risk. Appears patient was referred to ortho at [facility] however outpatient office note is not clear on definitive future treatment plans for patient. Patient will likely require tertiary center given his underlying comorbidities Patient wishes for second opinion with [facility] consult, Dr. Ferrell Limit Tylenol use secondary to underlying cirrhosis. Continue home oxycodone as needed, Dilaudid as needed severe pain (4) Alcoholic cirrhosis: (5) Thrombocytopenia: (6) History of ascites: Plan: History esophageal varices Reports last ETOH use over 1 year ago Continue furosemide, spironolactone, rifaximin, lactulose Continue outpatient GI follow-up (7) HLD (hyperlipidemia): Plan: Continue atorvastatin (8) GERD (gastroesophageal reflux disease): Plan: Continue PPI (9) Depression: Plan: Continue fluoxetine DVT Prophylaxis SCDs given thrombocytopenia Full Code as per discussion with pt Follows with Dr Paz for routine care Pt was seen and care coordinated with Dr Valenzuela. See addendum History of Present Illness Chief Complaint: Multiple medical complaints Primary Care Provider: Toby Paz MD Patient is 57 y/o M with PMH HTN, HLD, history TIA, history ETOH abuse, cirrhosis, esophageal varices, ascites, hepatic encephalopathy, GERD and others listed below presented to ER with multiple medical complaints. Patient states for the past 5 days he has been getting more confused and having trouble remembering things. He states this feels similar to when his ammonia levels have been elevated in the past. He states he missed a dose of lactulose. Patient states lactulose he has been receiving outpatient has foul taste and he has been having difficulty taking it. Patient states that he feels that he gets nausea with taking it. He states in past has also had vomiting if he takes medications on empty stomach. He has been trying to take medications after eating a piece of toast. Otherwise denies vomiting. Has 5-6 loose BMs daily while on lactulose. Denies any abdominal pain. Denies any increased abdominal distention. Patient with history femoral avascular necrosis. States has been having severe left hip pain. Pain is worse with ambulation.. He states he has been falling at home secondary to difficulty with ambulating secondary to left hip pain. Has been seen by [facility] orthopedics, Dr Short, and states was to have surgery for THR for left femoral avascular necrosis in 11/2022 however patient had confusion on day of surgery and surgery was cancelled. It was felt patient needed to be seen at tertiary center secondary to comorbidities associated with cirrhosis. Appears patient was referred to ortho at [facility] [place] however outpatient office note is not clear on definitive future treatment plans for patient. Patient was thinking of getting second opinion. Patient also reports has been having intermittent shaking of bilateral upper arms that has been ongoing for almost a year. He also reports will get twitching of legs especially at night. Reports has been taking oxycodone at bedtime for hip pain and when pain subsides the leg twitching resolves. Denies dysuria, hematuria. Reports urinary hesitancy for the past couple months. Denies fever/chills, diaphoresis, hematemesis, melena, hematochezia, VILLASEÑOR, dizziness, syncope, CP, SOB, palpitations, cough, sore throat, rhinorrhea, abdominal pain, paresthesias, extremity edema, rashes. Allergies Allergy/AdvReac Type Severity Reaction Status Date / Time No Known Drug Allergies Allergy Unknown Verified 05/16/22 08:03 Home Medications Medication Instructions Recorded Confirmed Type atorvastatin 20 mg tablet 20 mg PO HS 01/18/18 01/11/23 History pantoprazole 40 mg tablet,delayed 40 mg PO BID 07/26/18 01/11/23 History release lactulose 10 gram/15 mL oral 30 ml PO QID 11/24/21 01/11/23 History solution magnesium oxide 400 mg (241.3 mg 400 mg PO AMHS 11/24/21 01/11/23 History magnesium) tablet furosemide 40 mg tablet 40 mg PO DAILY 02/23/22 01/11/23 History gabapentin 100 mg capsule 100 mg PO TID 02/23/22 01/11/23 History rifaximin 550 mg tablet (Xifaxan) 550 mg PO BID 02/23/22 01/11/23 History fluoxetine 10 mg capsule 10 mg PO QAM 01/11/23 01/11/23 History oxycodone 5 mg tablet 5 mg PO Q12H PRN Pain, Severe 01/11/23 01/11/23 History spironolactone 25 mg tablet 25 mg PO DAILY 01/11/23 01/11/23 History Past Med/Surg History Medical History (Updated 01/11/23 @ 16:12 by Mary Talavera PA-C) Abnormal PFT Acid reflux Acute alteration in mental status Cirrhosis of liver Depression Elevated LFTs GERD (gastroesophageal reflux disease) H/O angioedema ongoing, follows with allergy History of ascites HLD (hyperlipidemia) HTN (hypertension) Hyperlipidemia Hypertension Nausea Thrombocytopenia UTI (urinary tract infection) Surgical History History of appendectomy History of appendectomy History of bowel resection 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 History of colonoscopy History of esophagogastroduodenoscopy (EGD) History of tooth extraction Family History Father Hearing loss Hypertension Stroke Heart disease Other No pertinent family history in first degree relatives Denies family history of No family history of adverse response to anesthesia No family history of bleeding disorder Allergies Asthma Social History Smoking Status: Former smoker Tobacco Type: Cigarettes Cigarettes Per Day: 1-2; Second Hand Exposure: No; Do You Dip or Chew Tobacco: No; Hx Alcohol Use: Yes (former) Alcohol type: beer Hx Substance Use: No Preferred Language: Cambodian Communication Ability: Effective Mat Cutter Required: Yes Beliefs That Will Affect Care: None marital status: Current Living Situation: Significant Other Current Living Situation Comment: LIVES WITH GIRLFRIEND 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 Safe at Home: Yes Assistive Devices: None Review of Systems Review of Systems: All systems reviewed & are unremarkable except as noted in HPI & below Physical Exam Physical Exam: General: mild distress secondary to pain, chronic ill appearing male, WDWN Head: normocephalic, atraumatic Eyes: conjunctiva non-injected, anicteric ENT: normal inspection external ears, nose, mucous membranes moist Neck: supple, trachea midline Lungs: clear, no respiratory distress, no wheezing/rhonchi/rales CV: RRR, no murmur, no pretibial edema Abd: normal BS, soft, non-tender Ext: no cyanosis, no calf tenderness, +diffuse tenderness to palpation entire left hip region, +pain with attempted flexion and extension of left hip. sensat ion to light touch intact and distal pulses intact Neuro: A&O x 3, no focal deficits noted, normal affect Skin: warm, dry Results & Data Results & Data Vital Signs (Past 12 Hours) Vital Signs Temp Pulse Resp BP Pulse Ox O2 Del Method 01/11/23 13:00 68 21 98 Room Air 01/11/23 13:00 132/79 01/11/23 12:31 128/75 01/11/23 12:31 67 19 98 Room Air 01/11/23 12:30 72 20 98 01/11/23 12:12 81 15 99 Room Air 01/11/23 11:30 78 19 100 01/11/23 11:30 99/71 L 01/11/23 11:00 68 19 99 01/11/23 11:00 110/75 01/11/23 10:34 63 20 100 01/11/23 10:29 65 20 100 Room Air 01/11/23 10:40 64 01/11/23 09:47 36.3 C L 70 18 117/71 99 Room Air Laboratory Results Short CBC 01/11/23 Range/Units 10:14 WBC 7.25 (4.8-10.8) K/ul Hgb 13.5 L (14.0-18.0) g/dl Hct 38.9 L (42.0-52.0) % Plt Count 49 L (130-400) K/uL BMP 01/11/23 10:14 Sodium 140 Potassium 3.9 Chloride 116 H Carbon Dioxide 18 L BUN 16 Creatinine 0.87 Glucose 110 H Calcium 9.1 Liver Function 01/11/23 Range/Units 10:14 Total Bilirubin 1.8 H (0.2-1.0) mg/dl AST 39 (13-39) U/L ALT 24 (7-52) U/L Alkaline Phosphatase 164 H (34-104) U/L Albumin 3.5 (3.4-5.0) gm/dl Urine 01/11/23 Range/Units 11:12 Urine Color Dark Yellow Urine Appearance Clear (Clear) Urine pH 5.5 (4.5-7.5) Ur Specific [place] 1.038 H (1.000-1.030) Urine Protein Negative (Negative) Urine Glucose (UA) Negative (Negative) Diagnostic Findings Chest X-Ray 01/11/23 10:07 XR chest 1V portable HISTORY: 57 years-old Male weakness acute weakness COMPARISON: 12/09/2021 TECHNIQUE: AP view of the chest FINDINGS: Cardiac mediastinal and hilar silhouettes are within normal limits. No pneumothorax, pleural effusion, airspace consolidation or pulmonary edema. Bones of the chest appear grossly intact. IMPRESSION: No acute process. ACT 112: Negative or not required by law. The above report was generated using voice recognition software. It may contain grammatical, syntax or spelling errors. Electronically signed by: Gerardo Brown M.D. 01/11/2023 10:53 AM Hip/Pelvis X-Ray 01/11/23 10:07 XR hip LT 2V w pelvis HISTORY: 57 years-old Male left hip pain acute left-sided hip pain COMPARISON: 02/22/2022 TECHNIQUE: AP view of the pelvis with 2 views of the left hip FINDINGS: Severe joint space narrowing of the left femoral acetabular joint with prominent avascular necrosis, subcortical cystic changes and mild articular collapse. Mild osteoarthritis of the right hip with associated avascular necrosis. No associated right femoral head articular collapse. No acute fracture or dislocation. IMPRESSION: 1. Severe joint space narrowing of the left femoral acetabular joint with prominent avascular necrosis and mild articular collapse. 2. Mild joint space narrowing of the right hip with associated avascular necrosis of the right femoral head. ACT 112: Negative or not required by law. The above report was generated using voice recognition software. It may contain grammatical, syntax or spelling errors. Electronically signed by: Gerardo Brown M.D. 01/11/2023 11:01 AM Abdomen/Pelvis CT 01/11/23 11:[address] WITH IV CONTRAST CT DOSE: 1159.09 mGy.cm HISTORY: Acute left lower quadrant abdominal pain . Reported prior appendectomy. LLQ pain TECHNIQUE: Multiaxial CT images of the abdomen and pelvis were performed following the IV administration of 93 cc of Optiray, A dose lowering technique was utilized adhering to the principles of ALARA. COMPARISON STUDY: 02/22/2022 FINDINGS: Cardiomegaly. Clear lung bases. No pneumoperitoneum. Splenomegaly again noted with calcified granulomata. The spleen measures up to at least 14 cm in length. Unremarkable pancreas and adrenal glands. Cholecystectomy. Cirrhotic liver. Scattered hepatic cysts measure up to 12 mm. No solid liver lesions identified. Patent portal vein. Left-sided renal sinus cysts. Mild nonspecific bilateral perinephric stranding. There is no hydronephrosis or urolith identified. Prostatomegaly. Urinary bladder wall thickening with partial distention. Trace ascites. Ectasia of infrarenal abdominal aorta redemonstrated measuring 2.7 x 2.6 cm. There is no lymphadenopathy identified. Varicosities of the abdomen are again noted including distal paraesophageal varices. Mild to moderate colonic fecal retention. There is mild wall thickening of the cecum, ascending colon and distal ileum. No bowel obstruction. Slightly dilated fluid-filled loops of small bowel within the left abdomen measure up to 3.2 cm. No discrete transition point identified. Avascular necrosis of the left greater than right femoral heads with severe left hip joint space narrowing and left femoral articular head collapse. No acute fracture. IMPRESSION: 1. Mildly dilated fluid-filled loops of small bowel within the left abdomen are favored to be physiologic. No definite bowel obstruction identified. 2. Cirrhosis with stigmata of portal venous hypertension. 3. Mild wall thickening of the cecum, ascending colon and terminal ileum may be secondary to portal enteropathy/colopathy. A nonspecific enteritis/colitis could appear similarly. 4. Avascular necrosis of the bilateral femoral heads. Severe joint space narrowing of the left hip with left femoral head articular collapse/articular fragmentation has progressively worsened from the prior exam. 5. Additional findings as above. ACT 112: Negative or not required by law. The above report was generated using voice recognition software. It may contain grammatical, syntax or spelling errors. Electronically signed by: Gerardo Brown M.D. 01/11/2023 12:34 PM Supervising Physician Co-Signing Physician Notes I have seen and discussed the case with the collaborating OLGA. I agree with the above H&P. I have reviewed and confirmed the patients medical history, the findings on physical examination, and the patients diagnosis and treatment plan with [facility] and agree with the information documented. In short, Mr. Gutierrez is a 57 year old gentleman with history notable for decompensated EtOH cirrhosis and chronic pain 2/2 avascular necrosis of left hip who is admitted due to pain and tremors. Patient reports history of worsening confusion over 2 weeks, as well as issues with urinary hesitation. Patient endorses compliance with lactulose, noting 3-5 BM daily. VS stable. Labs revealed elevated ammonia level to 116, MELD of 12. UA appears to be contaminate with nitrate but no LE--+ for microscopic hematuria. CT AP revealed urinary thickening/distension, perinephric fat stranding w/o hydro, and prostatomegaly. PE with no asterixis, but on going RLE tremors. No other focal neuro deficit appreciated. Abdomen with slight distention, - fluid wave. Notable healed surgical scars on abdomen. Concern urinary retention, ?infection may be contributing to increasing ammonia level. Plan: ?UTI, urinary retention: Empiric CTX, infectious work up, bladder scan, tamsulosin trial Microscopic Hematuria: last visit with uro 2012, no documented cysto, though discussed, consider Urology consult/ensure follow up given ongoing hematuria Cirrhosis: continue home regimen, titrate lactulose to 3-5 bm, MELD stable Avascular necrosis: Ortho consult, pain regimen, PT/OT
[2023-01-11] MEDS ORDERED: HYDROmorphone INJ 0.5 MG/0.5 ML SYR ONE (15:43)
--- NOTE | 2023-01-11 16:28 | Electrocardiogram Report ---
Test Reason : Blood Pressure : / mmHG Vent. Rate : 064 BPM Atrial Rate : 064 BPM P-R Int : 166 ms QRS Dur : 084 ms QT Int : 430 ms P-R-T Axes : 029 020 020 degrees QTc Int : 443 ms Normal sinus rhythm Normal ECG When compared with ECG of 20-DEC-2022 10:16, No significant change was found Confirmed by Zay Scott ([id number]) on 01/11/2023 4:27:44 PM Referred By: REFERRED SELF Confirmed By:Zay Scott
[2023-01-11] MEDS ORDERED: ACETAMINOPHEN 325 MG TAB PO PRN (17:27)
[2023-01-11] MEDS ORDERED: ONDANSETRON INJ 2 MG/ML 2 ML VIAL IV PRN (17:27)
[2023-01-11] MEDS ORDERED: Patient's HEIGHT &/or WEIGHT Needed SCH (17:30)
[2023-01-11] MEDS: LACTULOSE SYRUP 20 GM/30 ML UDC PO SCH (21:18)
[2023-01-11] MEDS: HYDROmorphone INJ 0.5 MG/0.5 ML SYR IV PRN (21:18)
[2023-01-11] MEDS: PANTOprazole 40 MG TAB PO SCH (21:18)
[2023-01-11] MEDS: TAMSULOSIN HCL 0.4 MG CAP PO SCH (21:19)
[2023-01-11] MEDS: MAGNESIUM OXIDE 400 MG TAB PO SCH (21:19)
[2023-01-11] MEDS: ATORVASTATIN 20 MG TAB PO SCH (21:59)
[2023-01-11] MEDS: GABAPENTIN 100 MG CAP PO SCH (21:59)
[2023-01-11] MEDS: rifAXIMin 550 MG TABLET PO SCH (21:59)
[2023-01-11] MEDS: cefTRIAXone SODIUM 2,000 MG in DEXTROSE 5 % MINI-B 50 ML IV SCH (22:00)
[2023-01-12] MEDS: HYDROmorphone INJ 0.5 MG/0.5 ML SYR IV PRN ×3 (02:42→19:47)
[2023-01-12 07:06] LABS: Basophils # (auto) 0.03 K/uL (0.00-0.20); Basophils % (auto) 0.6 %; Eosinophils # (auto) 0.59 K/uL (0.00-0.50); Eosinophils % (auto) 10.9 %; Hematocrit (blood only) 34.9 % (42.0-52.0); Hemoglobin 12.4 g/dl (14.0-18.0); Immature Granulocytes # (auto) 0.01 K/uL (0.01-0.20); Immature Granulocytes % (auto) 0.2 %; Lymphocytes # (auto) 1.29 K/uL (1.20-3.40); Lymphocytes % (auto) 23.8 %; Mean Corpuscular Hemoglobin 33.7 pg (25.0-34.0); Mean Corpuscular Hgb Conc 35.5 g/dL (32.0-36.0); Mean Corpuscular Volume 94.8 fL (80.0-100.0); Mean Platelet Volume 12.2 fL (9.4-12.4); Monocytes # (auto) 0.82 K/uL (0.11-0.59); Monocytes % (auto) 15.1 %; Neutrophils # (auto) 2.69 K/uL (1.40-6.50); Neutrophils % (auto) 49.4 %; Platelet Count 45 K/uL (130-400); RDW Coefficient of Variation 15.1 % (11.5-14.5); RDW Standard Deviation 53.4 fL (36.4-46.3); Red Blood Count 3.68 M/uL (4.70-6.10); White Blood Count 5.43 K/ul (4.8-10.8)
[2023-01-12 07:30] LABS: Albumin Globulin Ratio 1.2 (0.9-2); Albumin Level 3.1 gm/dl (3.4-5.0); BUN Creatinine Ratio 15.4 (10-20); Bilirubin,Total 2.2 mg/dl (0.2-1.0); Calcium 8.6 mg/dl (8.6-10.3); Creatinine Clr Calc Pharmacy 95.9 ml/min; Est GFR (African American) 107.3 ml/min; Est GFR (Non-African American) 92.6 ml/min; Globulin 2.6 gm/dl (2.5-4.0); Magnesium 1.7 mg/dl (1.7-2.4); Phosphorus 3.7 mg/dl (2.5-4.9); Potassium 3.9 mmol/L (3.5-5.1); Total Protein 5.7 gm/dl (6.0-8.3)
[2023-01-12] MEDS: oxyCODONE HCL IR 5 MG TAB (IMMEDIATE RELEASE) PO PRN (08:10)
[2023-01-12] MEDS: FUROSEMIDE 40 MG TAB PO SCH (08:11)
[2023-01-12] MEDS: SPIRONOLACTONE 25 MG TAB PO SCH (08:11)
[2023-01-12] MEDS: FLUoxetine HCL 10 MG CAP PO SCH (08:11)
--- NOTE | 2023-01-12 08:20 | Hospitalist Progress Note ---
Date of Service January 12, 2023 Assessment & Plan (1) Acute hepatic encephalopathy: Plan: Patient is 57 y/o M with PMH HTN, HLD, history TIA, history ETOH abuse, cirrhosis, esophageal varices, ascites, hepatic encephalopathy, GERD presented to ER with increased confusion x 5 days. Ammonia level: 116, lactate WNL. No leukocytosis. Hgb: 13.5, PLT: 49, INR: 1.3, T. bili: 1.8, alk phos: 164, AST: 39, ALT: 24 UA: Positive nitrite, 2+ blood, negative leuk esterase, negative bacteria CT Abd/pelvis: concerning for cirrhosis with portal venous hypertension, possible enteritis/colitis Blood culture x2 with NGTD, no urine Cx drawn Started on empiric Rocephin and lactulose in the ED, continue Continue to monitor mental status GI consult placed for further recs (2) Hip pain: (3) Avascular necrosis of femur: Plan: Known history of avascular necrosis of femur Hip/pelvis x-ray: Notes prominent avascular necrosis CT ABD/PELVIS: Notes avascular necrosis of the bilateral femoral heads and se mejia joint space narrowing of the left hip with left femoral head articular collapse/articular fragmentation that has progressively worsened from the prior exam. Followed with [facility] orthopedics, Dr Short. Initial plan for total hip replacement however surgery was cancelled secondary to pt being high risk. Patient will likely require tertiary center given his underlying comorbidities Patient wishes for second opinion with [facility] Ortho consult placed, Dr. Ferrell- appreciate recs Continue home oxycodone as needed, Dilaudid as needed severe pain (4) Alcoholic cirrhosis: (5) Thrombocytopenia: (6) History of ascites: Plan: History esophageal varices, ascites Reports last ETOH use over 1 year ago however monitor for signs of alcohol withdrawal Continue furosemide, spironolactone, rifaximin, lactulose Follows with GI outpt (7) HLD (hyperlipidemia): Plan: Continue atorvastatin (8) GERD (gastroesophageal reflux disease): Plan: Continue PPI (9) Depression: Plan: Continue fluoxetine DVT Prophylaxis: SCDs given thrombocytopenia Full Code Admission and Anticipated Discharge Date Admission Date: January 11, 2023 Subjective Pt seen sitting up in bed, stepdaughter and friend at bedside. AAOx3 States he felt like his pain was well controlled. Having BMs. Denies other concerns. Review of Systems Review of Systems: All systems reviewed & are unremarkable except as noted in Subjective Physical Exam Physical Exam: General: Alert, orientedx3. No acute distress Skin: appears jaundiced Psych: Appropriate mood and affect Neuro: No gross deficits HEENT: NC/AT Chest: Nontender to palpation. CV: RRR Resp: Breath sounds clear bilaterally, no increased effort of breathing. Abdomen: Soft Extremities: edema in lower extremities bilaterally. Results & Data Results & Data Vital Signs (Past 12 Hours) Vital Signs Temp Pulse Pulse Resp BP BP BP 01/12/23 07:28 36.7 C 101 H 16 108/65 01/12/23 07:26 105 H 01/12/23 02:33 89 01/12/23 02:23 36.7 C 81 20 128/70 01/12/23 02:10 103 H 16 125/62 01/12/23 01:30 92 H 18 120/66 01/12/23 01:00 79 16 128/72 01/12/23 00:30 74 14 128/78 01/12/23 00:18 84 19 134/71 01/11/23 23:30 75 15 01/11/23 23:00 75 14 01/11/23 21:27 88 21 133/72 01/11/23 23:17 72 01/11/23 21:27 78 18 133/72 01/11/23 22:00 Pulse Ox Pulse Ox O2 Del Method O2 Del Method 01/12/23 07:28 94 Room Air 01/12/23 07:26 01/12/23 02:33 01/12/23 02:23 95 Room Air 01/12/23 02:10 93 Room Air 01/12/23 01:30 96 01/12/23 01:00 95 Room Air 01/12/23 00:30 95 Room Air 01/12/23 00:18 95 Room Air 01/11/23 23:30 98 01/11/23 23:00 97 01/11/23 21:27 98 01/11/23 23:17 01/11/23 21:27 98 Room Air 01/11/23 22:00 96 Room Air
[2023-01-12] MEDS: LACTULOSE SYRUP 20 GM/30 ML UDC PO SCH ×3 (09:44→20:38)
[2023-01-12] MEDS: MAGNESIUM OXIDE 400 MG TAB PO SCH ×2 (09:44→20:37)
[2023-01-12] MEDS: PANTOprazole 40 MG TAB PO SCH ×2 (09:44→20:37)
[2023-01-12] MEDS: rifAXIMin 550 MG TABLET PO SCH ×2 (09:44→20:37)
[2023-01-12] MEDS: GABAPENTIN 100 MG CAP PO SCH ×3 (09:44→20:37)
--- NOTE | 2023-01-12 10:27 | Orthopedic Consultation ---
Date of Consultation January 12, 2023 Assessment & Plan (1) Avascular necrosis of femur: The patient was evaluated in his room this morning. We had a long discussion regarding his medical comorbidities and his current situation with his hips. I think that total hip replacement would be his best option. The patient is in agreement. He would like to have it done as soon as possible. Given his cirrhosis and recurrent encephalopathy, I think he would be best managed at a tertiary care center. He already has an appointment in 4 weeks for evaluation at [place]. He understands that this is not a surgical date, but rather an evaluation. I do not think he is able to have his surgery here. Pain management is certainly difficult for him given his limited ability to use Tylenol. Minimize narcotics if possible. I will see if we can move the appointment in [place] to a sooner date. Supervising Physician Co-Signing Physician Notes I saw and examined the patient, reviewed his imaging findings, formulated the above plan, constituting the substantial portion of the consultation. Agree with the above note. Patient's medical comorbidities make him a high risk candidate for a total hip. Recommend he keeps his appointment in [place]. Alternatively he could follow-up with [facility] if they are able to get him in sooner. Recommend the patient use a walker as an ambulatory assist. He can weight-bear as tolerated on this. Pain control per his primary care team. Orthopedics will sign off. History of Present Illness Reason for Consultation: Left hip pain Attending Physician: Thao Marino MD History of Present Illness This 57-year-old male is seen today in consultation for left hip pain. He has a known background history of depression, avascular necrosis of both femoral heads, recurrent elevated ammonia levels, alcoholic cirrhosis, thrombocytopenia, recurrent acute hepatic encephalopathy, elevated LFTs, hypertension, elevated lipids, GERD, and migraines. At times he is a poor historian. He states the hip pain has been ongoing for over a year. It has become worse since the beginning of summer. He was previously evaluated at [facility] by Dr. Guthrie. He was scheduled for a total hip arthroplasty November 21 at [facility]. He states the procedure was canceled that day due to onset of confusion and supposed infection. I am more suspicious that he had elevated ammonia levels that day and was encephalopathic. He was then scheduled for evaluation at [facility] due to the complexity of his medical history. The patient states he was evaluated there, but was told by the attending surgeon that he did not do the kind of surgery that the patient was requesting. He states he is now scheduled for evaluation February [address] [facility] with the total joint team. He will be seeing [facility] that day. The patient states that his pain is intolerable on a daily basis. The only way he functions is by taking narcotics [id number]. He is requesting that surgery be done as soon as possible so that he can relieve the pain of his hip and become active again. He states he is tired of being delayed for surgery. He gets around his home using either canes or a wheelchair. He states he has fallen numerous times because the leg is unreliable. He states it gives out on him frequently due to the pain. He denies any numbness or tingling. The patient states he thinks his cirrhosis came from use of antibiotics earlier in life. He states he never drank much and does not like the taste of beer. He also states that he cannot understand why no one will do his surgery, as he went through abdominal surgery previously without issue. Allergies Allergy/AdvReac Type Severity Reaction Status Date / Time No Known Drug Allergies Allergy Unknown Verified 05/16/22 08:03 Home Medications Medication Instructions Recorded Confirmed Type atorvastatin 20 mg tablet 20 mg PO HS 01/18/18 01/11/23 History pantoprazole 40 mg tablet,delayed 40 mg PO BID 07/26/18 01/11/23 History release lactulose 10 gram/15 mL oral 30 ml PO QID 11/24/21 01/11/23 History solution magnesium oxide 400 mg (241.3 mg 400 mg PO AMHS 11/24/21 01/11/23 History magnesium) tablet furosemide 40 mg tablet 40 mg PO DAILY 02/23/22 01/11/23 History gabapentin 100 mg capsule 100 mg PO TID 02/23/22 01/11/23 History rifaximin 550 mg tablet (Xifaxan) 550 mg PO BID 02/23/22 01/11/23 History fluoxetine 10 mg capsule 10 mg PO QAM 01/11/23 01/11/23 History oxycodone 5 mg tablet 5 mg PO Q12H PRN Pain, Severe 01/11/23 01/11/23 History spironolactone 25 mg tablet 25 mg PO DAILY 01/11/23 01/11/23 History Patient History Medical History Abnormal PFT Acid reflux Acute alteration in mental status Cirrhosis of liver Depression Elevated LFTs GERD (gastroesophageal reflux disease) H/O angioedema ongoing, follows with allergy History of ascites HLD (hyperlipidemia) HTN (hypertension) Hyperlipidemia Hypertension Nausea Thrombocytopenia UTI (urinary tract infection) Surgical History History of appendectomy History of appendectomy History of bowel resection 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 History of colonoscopy History of esophagogastroduodenoscopy (EGD) History of tooth extraction Family History Father Hearing loss Hypertension Stroke Heart disease Other No pertinent family history in first degree relatives Denies family history of No family history of adverse response to anesthesia No family history of bleeding disorder Allergies Asthma Social History Smoking Status: Former smoker Tobacco Type: Cigarettes Cigarettes Per Day: 1-2; Second Hand Exposure: No; Do You Dip or Chew Tobacco: No; Hx Alcohol Use: No Hx Substance Use: No Preferred Language: Swiss Communication Ability: Effective Paper Cutter Required: No Beliefs That Will Affect Care: None marital status: Current Living Situation: Significant Other Current Living Situation Comment: LIVES WITH GIRLFRIEND current occupational status: 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 Laying on the bed. Alert and oriented. At times he is a poor historian. Skin: Warm and dry with good turgor. No rashes. No ecchymosis or erythema. Musculoskeletal: Left hip evaluation reveals no obvious asymmetry or deformity. He has discomfort with palpation of the anterior flexion crease. No pain with palpation over his IT band, greater trochanter, iliac crest, or SI joint. He has very limited hip motion secondary to pain. Flexion is only a few degrees. Internal and external rotation are also only a few degrees before significant pain. He has intact motor function of his knee and ankle. He is able to set his quad and perform a small straight leg raise. Strength is 5/5 for resisted ankle dorsiflexion and plantarflexion as well as inversion and eversion. Neurologic: Gross sensation is intact across the lower extremities by soft touch. Peripheral pulses are 2+. Results & Data Vital Signs (Past 12 Hours) Vital Signs Temp Pulse Pulse Resp BP BP BP 01/12/23 07:28 36.7 C 101 H 16 108/65 01/12/23 07:26 105 H 01/12/23 02:33 89 01/12/23 02:23 36.7 C 81 20 128/70 01/12/23 02:10 103 H 16 125/62 01/12/23 01:30 92 H 18 120/66 01/12/23 01:00 79 16 128/72 01/12/23 00:30 74 14 128/78 01/12/23 00:18 84 19 134/71 01/11/23 23:30 75 15 01/11/23 23:00 75 14 01/11/23 23:17 72 Pulse Ox O2 Del Method 01/12/23 07:28 94 Room Air 01/12/23 07:26 01/12/23 02:33 01/12/23 02:23 95 Room Air 01/12/23 02:10 93 Room Air 01/12/23 01:30 96 01/12/23 01:00 95 Room Air 01/12/23 00:30 95 Room Air 01/12/23 00:18 95 Room Air 01/11/23 23:30 98 01/11/23 23:00 97 01/11/23 23:17 Laboratory Results CBC obtained this morning shows a normal white count. H&H of 12.4 and 34.9. He has low platelets of 45,000. Sodium 139, potassium 3.9, CO2 20 with anion gap of 6. BUN 14 and creatinine normal at 0.91. Total bili is 2.2. ALT and AST are normal. Ammonia is still elevated at 85. It has come down from 116 yesterday. Diagnostic Findings Radiographic imaging obtained yesterday, along with CT scan imaging of the abdomen pelvis, were reviewed. The patient has AVN of both femoral heads, left greater than right. He is [id number] in the left hip.
[2023-01-12] MEDS: cefTRIAXone SODIUM 2,000 MG in DEXTROSE 5 % MINI-B 50 ML IV SCH (19:50)
[2023-01-12] MEDS: ATORVASTATIN 20 MG TAB PO SCH (20:37)
[2023-01-12] MEDS: TAMSULOSIN HCL 0.4 MG CAP PO SCH (20:38)
[2023-01-13] MEDS: FUROSEMIDE 40 MG TAB PO SCH (08:18)
[2023-01-13] MEDS: LACTULOSE SYRUP 20 GM/30 ML UDC PO SCH (08:18)
[2023-01-13] MEDS: GABAPENTIN 100 MG CAP PO SCH (08:18)
[2023-01-13] MEDS: MAGNESIUM OXIDE 400 MG TAB PO SCH (08:18)
[2023-01-13] MEDS: FLUoxetine HCL 10 MG CAP PO SCH (08:18)
[2023-01-13] MEDS: PANTOprazole 40 MG TAB PO SCH (08:18)
[2023-01-13] MEDS: rifAXIMin 550 MG TABLET PO SCH (08:18)
[2023-01-13] MEDS: SPIRONOLACTONE 25 MG TAB PO SCH (08:19)
--- NOTE | 2023-01-13 08:38 | Gastrointestinal Consultation ---
Date of Consultation January 13, 2023 Assessment & Plan (1) Hyperammonemia: (2) Alcoholic cirrhosis: Plan Continue Lactulose, rifaximin. While on narcotics will also give a dose of Dulcolax po to hopefully stimulate some BMs and prevent an episode of hepatic encephalopathy. Ortho care is in place. Though his pain is severe, we reviewed that he needs to limit use of narcotics/benzodiazepines as they will trigger hepatic encephalopathy. Continue OP GI f/u. GI will sign off. Supervising Physician Co-Signing Physician Notes I performed a history and physical examination of the patient today, including specifically on physical exam - soft abdomen. I have discussed the patient's management with the advanced practitioner. Please refer to the nurse practitioner's note for the documented findings and plan of care. Fully awake now with no evidence of HE. F/U with GI as OP. History of Present Illness Reason for Consultation: hepatic encephalopathy, jaundice, cirrhosis Requesting Physician: Ned Attending Physician: Enrique Perea MD History of Present Illness Mr. Mauro Gutierrez is a 57 yr old male pt of Dr. Paz w a hx of ETOH cirrhosis abstaining for years, complicated by EV, prior hepatic encephalopathy and ascites. He unfortunately also has lumbar spine issues and avascular necrosis of both femurs, L>R and requires hip replacement. He was scheduled her w Dr. Valentine for back surgery in December which was eventually cancelled due to high risk for complications w cirrhosis. He was then evaluated by [facility] who felt he was to high risk for surgery secondary to liver dx. He is set up for evaluation for ortho surgery at [facility] in February. He has severe pain, is unable to sleep due to the pain and his options for pain medication and sleep aids are limited due to his hx of hepatic encephalopathy as these meds can trigger recurrence. Though H&P states that he was brought to the ED for confusion x 5 days. On exam, he is awake, alert, oriented, is eating a regular consistency breakfast and tells me that he came to the ED because he had run out of OxyContin. When he runs out of this med, he is unable to sleep and after days w/o sleep he tells me that he doesn't get confused but he is just so tired that people think he is confused. Ammonia was elevated on arrival at 116 and is 85 this morning. CTAP w IV on arrival a question of dilated fluid-filled loops of small bowel within the left abdomen - thought to be physiologic. CT otherwise normal. At home, for prevention of hepatic encephalopathy, he is maintained on lactulose 20mg TID and Rifaximin 550mg BID. He verifies that he was taking these meds and passing at least 3 loose BMs/day. He mentions, however, then since he has been here in the hospital (receiving more pain meds) he has not passed a BM despite continuing the lactulose and rifaximin. He denies any signs of infection such as pain on urination, blood in urine, bloody/black BMs. No CP, SOB or respiratory issues. Allergies Allergy/AdvReac Type Severity Reaction Status Date / Time No Known Drug Allergies Allergy Unknown Verified 05/16/22 08:03 Home Medications Medication Instructions Recorded Confirmed Type atorvastatin 20 mg tablet 20 mg PO HS 01/18/18 01/11/23 History pantoprazole 40 mg tablet,delayed 40 mg PO BID 07/26/18 01/11/23 History release lactulose 10 gram/15 mL oral 30 ml PO QID 11/24/21 01/11/23 History solution magnesium oxide 400 mg (241.3 mg 400 mg PO AMHS 11/24/21 01/11/23 History magnesium) tablet furosemide 40 mg tablet 40 mg PO DAILY 02/23/22 01/11/23 History gabapentin 100 mg capsule 100 mg PO TID 02/23/22 01/11/23 History rifaximin 550 mg tablet (Xifaxan) 550 mg PO BID 02/23/22 01/11/23 History fluoxetine 10 mg capsule 10 mg PO QAM 01/11/23 01/11/23 History oxycodone 5 mg tablet 5 mg PO Q12H PRN Pain, Severe 01/11/23 01/11/23 History spironolactone 25 mg tablet 25 mg PO DAILY 01/11/23 01/11/23 History oxycodone 5 mg tablet 5 mg PO BID PRN pain #15 tabs 01/13/23 Rx Patient History Medical History Abnormal PFT Acid reflux Acute alteration in mental status Cirrhosis of liver Depression Elevated LFTs GERD (gastroesophageal reflux disease) H/O angioedema ongoing, follows with allergy History of ascites HLD (hyperlipidemia) HTN (hypertension) Hyperlipidemia Hypertension Nausea Thrombocytopenia UTI (urinary tract infection) Surgical History History of appendectomy History of appendectomy History of bowel resection 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 History of colonoscopy History of esophagogastroduodenoscopy (EGD) History of tooth extraction Family History Father Hearing loss Hypertension Stroke Heart disease Other No pertinent family history in first degree relatives Denies family history of No family history of adverse response to anesthesia No family history of bleeding disorder Allergies Asthma Social History Smoking Status: Former smoker Tobacco Type: Cigarettes Cigarettes Per Day: 1-2; Second Hand Exposure: No; Do You Dip or Chew Tobacco: No; Hx Alcohol Use: No Hx Substance Use: No Preferred Language: Latvian Communication Ability: Effective Sound Engineering Technician Required: No Beliefs That Will Affect Care: None marital status: Current Living Situation: Significant Other Current Living Situation Comment: LIVES WITH GIRLFRIEND current occupational status: 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 Physical Exam Constitutional: WD/WN, vitals as above Eyes: PERRL, conjunctivae normal, anicteric sclerae ENMT: external ear and nose normal, oropharynx normal Neck: trachea midline, no thyromegaly Respiratory: normal respiratory effort, lungs clear to auscultation Cardiovascular: RRR, no murmur, no edema Gastrointestinal (Abdomen): soft, non tender, no masses, no distention, minimal ascites Skin: no rashes, warm and dry (few spider angiomas) Neurologic: PERRL, EOMI, accommodation nl, no face palsy, no dysarthria Psychiatric: A+Ox3, euthymic affect Lymphatic: no cervical or axillary lymphadenopathy Results & Data Vital Signs (Past 12 Hours) Vital Signs Temp Pulse Pulse Resp BP BP Pulse Ox 01/13/23 08:05 36.9 C 85 20 107/67 92 01/13/23 03:30 36.9 C 90 18 115/65 95 01/12/23 23:59 81 01/12/23 22:00 36.9 C 80 20 116/70 95 O2 Del Method 01/13/23 08:05 Room Air 01/13/23 03:30 Room Air 01/12/23 23:59 01/12/23 22:00 Room Air Laboratory Results WBC 5.3, Hb 12.4, Hct 34.9, Plts 45, PT 13, INR 1.3, Na 139, K 3.o, Cl 113, CO2 20, BUN 14, Cr 0.4 Diagnostic Findings CTAP w IV on 01/11/23: 1. Mildly dilated fluid-filled loops of small bowel within the left abdomen are favored to be physiologic. No definite bowel obstruction identified. 2. Cirrhosis with stigmata of portal venous hypertension. 3. Mild wall thickening of the cecum, ascending colon and terminal ileum may be secondary to portal enteropathy/colopathy. A nonspecific enteritis/colitis could appear similarly. 4. Avascular necrosis of the bilateral femoral heads. Severe joint space narrowing of the left hip with left femoral head articular collapse/articular fragmentation has progressively worsened from the prior exam CXR: 01/11/13No acute process. .
[2023-01-13] MEDS: oxyCODONE HCL IR 5 MG TAB (IMMEDIATE RELEASE) PO PRN (09:45)
[2023-01-13] MEDS ORDERED: bisacodyL 5 MG TABEC PO ONE (11:21)
--- NOTE | 2023-01-13 11:31 | Orthopedic Progress Note ---
Date of Service January 13, 2023 Assessment & Plan (1) Avascular necrosis of femur: Plan: The patient was evaluated in his room this morning. We had a long discussion regarding his medical comorbidities and his current situation with his hips. I think that total hip replacement would be his best option. The patient is in agreement. He would like to have it done as soon as possible. Given his cirrhosis and recurrent encephalopathy, I think he would be best managed at a tertiary care center. He already has an appointment in 4 weeks for evaluation at [place]. He understands that this is not a surgical date, but rather an evaluation. I do not think he is able to have his surgery here. Pain management is certainly difficult for him given his limited ability to use Tylenol. Minimize narcotics if possible. I will see if we can move the appointment in [place] to a sooner date. Admission and Anticipated Discharge Date Admission Date: January 11, 2023 Subjective This 57-year-old male seen this morning for follow-up of bilateral hip osteoarthritis with the left hip being greater than the right. He understands that surgery will be necessary. He states that he is scheduled to be seen by joint specialist in [place] at the beginning of next month. He states that he is already been seen by an orthopedist in [place] who is stated that he was not a good candidate for surgery. Currently he states that his pain is well controlled with the p.o. pain medication. He has no other complaints such as chest pain, shortness of breath, fever, chills, sweats, nausea, vomiting or diarrhea. He has been able to void and move his bowels. Review of Systems Review of Systems: All systems reviewed & are unremarkable except as noted in Subjective Physical Exam Physical Exam: Right hip: Patient tolerates logroll testing. He is able to actively perform a straight leg raise test. He is able to tolerate passive hip flexion to 90 degrees. He does not experience any pain with internal rotation until we had about 10 degrees. External rotation to 60 degrees causes pain. Left hip: Logroll testing causes referred pain to the groin. Flexion is limited to about 86 degrees, internal rotation to 0 degrees and external rotation to 30 degrees. Patient has difficulty performing active straight leg raise test. He has neurovascular intact in both lower extremities. Results & Data Vital Signs (Past 12 Hours) Vital Signs Temp Pulse Pulse Resp BP BP Pulse Ox 01/13/23 11:23 36.6 C 78 20 98/61 L 96 01/13/23 10:31 89 01/13/23 08:05 36.9 C 85 20 107/67 92 01/13/23 03:30 36.9 C 90 18 115/65 95 01/12/23 23:59 81 O2 Del Method 01/13/23 11:23 Room Air 01/13/23 10:31 01/13/23 08:05 Room Air 01/13/23 03:30 Room Air 01/12/23 23:59 Diagnostic Findings Laboratory Results WBC 5.43 K/ul (4.8-10.8) 01/12/23 06:52 RBC 3.68 M/uL (4.70-6.10) L 01/12/23 06:52 Hgb 12.4 g/dl (14.0-18.0) L 01/12/23 06:52 Hct 34.9 % (42.0-52.0) L 01/12/23 06:52 MCV 94.8 fL (80.0-100.0) 01/12/23 06:52 MCH 33.7 pg (25.0-34.0) 01/12/23 06:52 MCHC 35.5 g/dL (32.0-36.0) 01/12/23 06:52 RDW Std Deviation 53.4 fL (36.4-46.3) H 01/12/23 06:52 RDW Coeff of Fabiola 15.1 % (11.5-14.5) H 01/12/23 06:52 Plt Count 45 K/uL (130-400) L 01/12/23 06:52 MPV 12.2 fL (9.4-12.4) 01/12/23 06:52 Immature Gran % (Auto) 0.2 % 01/12/23 06:52 Neut % (Auto) 49.4 % 01/12/23 06:52 Lymph % (Auto) 23.8 % 01/12/23 06:52 [place] % (Auto) 15.1 % 01/12/23 06:52 Eos % (Auto) 10.9 % 01/12/23 06:52 Baso % (Auto) 0.6 % 01/12/23 06:52 Neut # (Auto) 2.69 K/uL (1.40-6.50) 01/12/23 06:52 Lymph # (Auto) 1.29 K/uL (1.20-3.40) 01/12/23 06:52 [place] # (Auto) 0.82 K/uL (0.11-0.59) H 01/12/23 06:52 Eos # (Auto) 0.59 K/uL (0.00-0.50) H 01/12/23 06:52 Baso # (Auto) 0.03 K/uL (0.00-0.20) 01/12/23 06:52 Immature Gran # (Auto) 0.01 K/uL (0.01-0.20) 01/12/23 06:52 PT 13.7 Seconds (9.0-12.0) H 01/11/23 10:14 INR 1.3 (0.9-1.1) H 01/11/23 10:14 Sodium 139 mmol/L (136-145) 01/12/23 06:52 Potassium 3.9 mmol/L (3.5-5.1) 01/12/23 06:52 Chloride 113 mmol/L (98-107) H 01/12/23 06:52 Carbon Dioxide 20 mmol/L (21-32) L 01/12/23 06:52 Anion Gap 6 (3-11) 01/12/23 06:52 BUN 14 mg/dl (6-23) 01/12/23 06:52 Creatinine 0.91 mg/dl (0.6-1.4) 01/12/23 06:52 Est Cr Clr Drug Dosing 95.9 ml/min 01/12/23 06:52 Est GFR ( Amer) 107.3 ml/min 01/12/23 06:52 Est GFR (Non-Af Amer) 92.6 ml/min 01/12/23 06:52 BUN/Creatinine Ratio 15.4 (10-20) 01/12/23 06:52 Glucose 95 mg/dl (70-99(Fasting)) 01/12/23 06:52 Lactate 1.3 mmol/L (0.4-2.0) 01/11/23 10:14 Calcium 8.6 mg/dl (8.6-10.3) 01/12/23 06:52 Phosphorus 3.7 mg/dl (2.5-4.9) 01/12/23 06:52 Magnesium 1.7 mg/dl (1.7-2.4) 01/12/23 06:52 Total Bilirubin 2.2 mg/dl (0.2-1.0) H 01/12/23 06:52 AST 34 U/L (13-39) 01/12/23 06:52 ALT 20 U/L (7-52) 01/12/23 06:52 Alkaline Phosphatase 98 U/L (34-104) 01/12/23 06:52 Ammonia 85.0 umol/L (18-72) H 01/12/23 06:52 Troponin I High Sens 5.0 pg/ml (0-20) 01/11/23 10:14 Total Protein 5.7 gm/dl (6.0-8.3) L 01/12/23 06:52 Albumin 3.1 gm/dl (3.4-5.0) L 01/12/23 06:52 Globulin 2.6 gm/dl (2.5-4.0) 01/12/23 06:52 Albumin/Globulin Ratio 1.2 (0.9-2) 01/12/23 06:52 TSH 1.545 uIu/ml (0.300-4.500) 01/11/23 10:14 Urine Color Dark Yellow 01/11/23 11:12 Urine Appearance Clear (Clear) 01/11/23 11:12 Urine pH 5.5 (4.5-7.5) 01/11/23 11:12 Ur Specific [place] 1.038 (1.000-1.030) H 01/11/23 11:12 Urine Protein Negative (Negative) 01/11/23 11:12 Urine Glucose (UA) Negative (Negative) 01/11/23 11:12 Urine Ketones 1+ (Negative) H 01/11/23 11:12 Urine Blood 2+ (Negative) H 01/11/23 11:12 Urine Nitrite Positive (Negative) A 01/11/23 11:12 Urine Bilirubin 1+ (Negative) H 01/11/23 11:12 Urine Urobilinogen Negative (Negative) 01/11/23 11:12 Ur Leukocyte Esterase Negative (Negative) 01/11/23 11:12 Urine WBC (Auto) 1-5 /hpf (0-5) 01/11/23 11:12 Urine RBC (Auto) 10-30 /hpf (0-4) H 01/11/23 11:12 U Hyaline Cast (Auto) 1-5 /lpf (0-5) 01/11/23 11:12 U Epithel Cells (Auto) 5-10 /lpf (0-5) H 01/11/23 11:12 Urine Bacteria (Auto) Negative (Negative) 01/11/23 11:12 Adenovirus (PCR) Not Detected (NotDetected) 01/11/23 11:12 B. pertussis DNA (PCR) Not Detected (NotDetected) 01/11/23 11:12 B.parapertussis DNA PCR Not Detected (NotDetected) 01/11/23 11:12 C. pneumoniae DNA (PCR) Not Detected (NotDetected) 01/11/23 11:12 Coronavirus OC43 (PCR) Not Detected (NotDetected) 01/11/23 11:12 Coronavirus HKU1 (PCR) Not Detected (NotDetected) 01/11/23 11:12 Coronavirus 229E (PCR) Not Detected (NotDetected) 01/11/23 11:12 SARS-CoV-2 (PCR) Not Detected (NotDetected) 01/11/23 11:12 Coronavirus NL63 (PCR) Not Detected (NotDetected) 01/11/23 11:12 Human Metapneumovir PCR Not Detected (NotDetected) 01/11/23 11:12 Influenza Type A (PCR) Not Detected (NotDetected) 01/11/23 11:12 Influenza Type B (PCR) Not Detected (NotDetected) 01/11/23 11:12 M. pneumoniae (PCR) Not Detected (NotDetected) 01/11/23 11:12 Parainfluenza 1 (PCR) Not Detected (NotDetected) 01/11/23 11:12 Parainfluenza 2 (PCR) Not Detected (NotDetected) 01/11/23 11:12 Parainfluenza 3 (PCR) Not Detected (NotDetected) 01/11/23 11:12 Parainfluenza 4 (PCR) Not Detected (NotDetected) 01/11/23 11:12 RSV (PCR) Not Detected (NotDetected) 01/11/23 11:12 Entero/Rhino (PCR) Not Detected (NotDetected) 01/11/23 11:12 Impressions Chest X-Ray 01/11/23 10:07 XR chest 1V portable HISTORY: 57 years-old Male weakness acute weakness COMPARISON: 12/09/2021 TECHNIQUE: AP view of the chest FINDINGS: Cardiac mediastinal and hilar silhouettes are within normal limits. No pneumothorax, pleural effusion, airspace consolidation or pulmonary edema. Bones of the chest appear grossly intact. IMPRESSION: No acute process. ACT 112: Negative or not required by law. The above report was generated using voice recognition software. It may contain grammatical, syntax or spelling errors. Electronically signed by: Gerardo Brown M.D. 01/11/2023 10:53 AM Hip/Pelvis X-Ray 01/11/23 10:07 XR hip LT 2V w pelvis HISTORY: 57 years-old Male left hip pain acute left-sided hip pain COMPARISON: 02/22/2022 TECHNIQUE: AP view of the pelvis with 2 views of the left hip FINDINGS: Severe joint space narrowing of the left femoral acetabular joint with prominent avascular necrosis, subcortical cystic changes and mild articular collapse. Mild osteoarthritis of the right hip with associated avascular necrosis. No associated right femoral head articular collapse. No acute fracture or dislocation. IMPRESSION: 1. Severe joint space narrowing of the left femoral acetabular joint with prominent avascular necrosis and mild articular collapse. 2. Mild joint space narrowing of the right hip with associated avascular necrosi s of the right femoral head. ACT 112: Negative or not required by law. The above report was generated using voice recognition software. It may contain grammatical, syntax or spelling errors. Electronically signed by: Gerardo Brown M.D. 01/11/2023 11:01 AM Abdomen/Pelvis CT 01/11/23 11:[address] WITH IV CONTRAST CT DOSE: 1159.09 mGy.cm HISTORY: Acute left lower quadrant abdominal pain . Reported prior appendectomy. LLQ pain TECHNIQUE: Multiaxial CT images of the abdomen and pelvis were performed following the IV administration of 93 cc of Optiray, A dose lowering technique was utilized adhering to the principles of ALARA. COMPARISON STUDY: 02/22/2022 FINDINGS: Cardiomegaly. Clear lung bases. No pneumoperitoneum. Splenomegaly again noted with calcified granulomata. The spleen measures up to at least 14 cm in length. Unremarkable pancreas and adrenal glands. Cholecystectomy. Cirrhotic liver. Scattered hepatic cysts measure up to 12 mm. No solid liver lesions identified. Patent portal vein. Left-sided renal sinus cysts. Mild nonspecific bilateral perinephric stranding. There is no hydronephrosis or urolith identified. Prostatomegaly. Urinary bladder wall thickening with partial distention. Trace ascites. Ectasia of infrarenal abdominal aorta redemonstrated measuring 2.7 x 2.6 cm. There is no lymphadenopathy identified. Varicosities of the abdomen are again noted including distal paraesophageal varices. Mild to moderate colonic fecal retention. There is mild wall thickening of the cecum, ascending colon and distal ileum. No bowel obstruction. Slightly dilated fluid-filled loops of small bowel within the left abdomen measure up to 3.2 cm. No discrete transition point identified. Avascular necrosis of the left greater than right femoral heads with severe left hip joint space narrowing and left femoral articular head collapse. No acute fracture. IMPRESSION: 1. Mildly dilated fluid-filled loops of small bowel within the left abdomen are favored to be physiologic. No definite bowel obstruction identified. 2. Cirrhosis with stigmata of portal venous hypertension. 3. Mild wall thickening of the cecum, ascending colon and terminal ileum may be secondary to portal enteropathy/colopathy. A nonspecific enteritis/colitis could appear similarly. 4. Avascular necrosis of the bilateral femoral heads. Severe joint space narrowing of the left hip with left femoral head articular collapse/articular fragmentation has progressively worsened from the prior exam. 5. Additional findings as above. ACT 112: Negative or not required by law. The above report was generated using voice recognition software. It may contain grammatical, syntax or spelling errors. Electronically signed by: Gerardo Brown M.D. 01/11/2023 12:34 PM
--- NOTE | 2023-01-13 14:44 | Pain Management Consultation ---
Date of Consultation January 13, 2023 Assessment & Plan (1) Avascular necrosis of femur: (2) Ambulatory dysfunction: (3) Acute pain of left hip: (4) Hepatic encephalopathy: (5) Cirrhosis of liver: Plan 1. Continue cautious use of pain medication due to cirrhosis and hepatic ence phalopathy. * Currently on oxycodone 5 mg every 12 hours and 650 mg Tylenol every 8 hours and understand the patient is to be discharged this afternoon. * consider Rx oxycodone 2.5 mg every 6 hours and caution greater than 2000 mg Tylenol in a 24-hour period. 2. Defer to orthopedics as far as disposition for his left hip. Consider transfer to [facility] for more expeditious process to undergo a left total hip arthroplasty. Attempt to move up [facility] appointment sooner than currently scheduled. 3. Avoid ambulation on the left lower extremity. Wheelchair will be the best option for the patient at this time. Thank you for this consultation. Pain management service will sign off at this time. History of Present Illness Reason for Consultation: Left hip pain Attending Physician: Enrique Perea MD History of Present Illness Patient is a pleasant 57-year-old male that was due to undergo a left total hip arthroplasty at [facility] by Dr. Guthrie back in November. O n the day of the procedure, the patient's surgery was canceled, for what the patient says was that that surgeon was not comfortable proceeding due to his medical history. He has been having a difficult time with pain to this left hip ever since. Patient has really not been able to bear much weight on his left lower extremity secondary to pain in his known degenerative change in the femoral acetabular joint. The patient has a history of liver cirrhosis secondary to excessive alcohol intake in the past. He does have occasions of hepatic encephalopathy, for which he has been admitted to the hospital on this occasion. Patient has had an orthopedics consult, and he has been recommended to have a left total hip arthroplasty. Patient wishes to go to [facility] to have this done. He does have an upcoming appointment for an office visit referral in early February. He would like to have this moved up if possible, as he really cannot even move his hip at all without any severe pain. Allergies Allergy/AdvReac Type Severity Reaction Status Date / Time No Known Drug Allergies Allergy Unknown Verified 05/16/22 08:03 Home Medications Medication Instructions Recorded Confirmed Type atorvastatin 20 mg tablet 20 mg PO HS 01/18/18 01/11/23 History pantoprazole 40 mg tablet,delayed 40 mg PO BID 07/26/18 01/11/23 History release lactulose 10 gram/15 mL oral 30 ml PO QID 11/24/21 01/11/23 History solution magnesium oxide 400 mg (241.3 mg 400 mg PO AMHS 11/24/21 01/11/23 History magnesium) tablet furosemide 40 mg tablet 40 mg PO DAILY 02/23/22 01/11/23 History gabapentin 100 mg capsule 100 mg PO TID 02/23/22 01/11/23 History rifaximin 550 mg tablet (Xifaxan) 550 mg PO BID 02/23/22 01/11/23 History fluoxetine 10 mg capsule 10 mg PO QAM 01/11/23 01/11/23 History oxycodone 5 mg tablet 5 mg PO Q12H PRN Pain, Severe 01/11/23 01/11/23 History spironolactone 25 mg tablet 25 mg PO DAILY 01/11/23 01/11/23 History Patient History Medical History Abnormal PFT Acid reflux Acute alteration in mental status Cirrhosis of liver Depression Elevated LFTs GERD (gastroesophageal reflux disease) H/O angioedema ongoing, follows with allergy History of ascites HLD (hyperlipidemia) HTN (hypertension) Hyperlipidemia Hypertension Nausea Thrombocytopenia UTI (urinary tract infection) Surgical History History of appendectomy History of appendectomy History of bowel resection 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 History of colonoscopy History of esophagogastroduodenoscopy (EGD) History of tooth extraction Family History Father Hearing loss Hypertension Stroke Heart disease Other No pertinent family history in first degree relatives Denies family history of No family history of adverse response to anesthesia No family history of bleeding disorder Allergies Asthma Social History Smoking Status: Former smoker Tobacco Type: Cigarettes Cigarettes Per Day: 1-2; Second Hand Exposure: No; Do You Dip or Chew Tobacco: No; Hx Alcohol Use: No Hx Substance Use: No Preferred Language: American Communication Ability: Effective 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 HEAD/FACE: Normocephalic and atraumatic. EYES: No drainage or conjunctival injection. ENT: Nose without bleeding or discharge. NECK: No swelling or masses noted. RESPIRATORY: Patient with unlabored breathing. No signs of respiratory distress. CHEST/AXILLA: Chest movement symmetrical. No deformities noted. CARDIOVASCULAR: No edema noted. SKIN: [place], warm and dry. No rash noted. MS/EXTREMITY: Refuses attempt at left hip flexion or internal/external rotation. Would anyhow caution against left hip ROM secondary to known femoral head AVN/articular microfracture. NEURO: Alert and appears oriented. Speech is fluent. Cranial Nerves are grossly intact. PSYCH: Alert, pleasant, affect is calm. Results (Pain Clinic) Diagnostic Review CT Findings: ABDOMEN AND PELVIS CT WITH IV CONTRAST CT DOSE: 1159.09 mGy.cm HISTORY: Acute left lower quadrant abdominal pain . Reported prior appendectomy. LLQ pain TECHNIQUE: Multiaxial CT images of the abdomen and pelvis were performed fol lowing the IV administration of 93 cc of Optiray, A dose lowering technique was utilized adhering to the principles of ALARA. COMPARISON STUDY: 02/22/2022 FINDINGS: Cardiomegaly. Clear lung bases. No pneumoperitoneum. Splenomegaly again noted with calcified granulomata. The spleen measures up to at least 14 cm in length. Unremarkable pancreas and adrenal glands. Cholecystectomy. Cirrhotic liver. Scattered hepatic cysts measure up to 12 mm. No solid liver lesions identified. Patent portal vein. Left-sided renal sinus cysts. Mild nonspecific bilateral perinephric stranding. There is no hydronephrosis or urolith identified. Prostatomegaly. Urinary bladder wall thickening with partial distention. Trace ascites. Ectasia of infrarenal abdominal aorta redemonstrated measuring 2.7 x 2.6 cm. There is no lymphadenopathy identified. Varicosities of the abdomen are again noted including distal paraesophageal varices. Mild to moderate colonic fecal retention. There is mild wall thickening of the cecum, ascending colon and distal ileum. No bowel obstruction. Slightly dilated fluid-filled loops of small bowel within the left abdomen measure up to 3.2 cm. No discrete transition point identified. Avascular necrosis of the left greater than right femoral heads with severe left hip joint space narrowing and left femoral articular head collapse. No acute fracture. IMPRESSION: 1. Mildly dilated fluid-filled loops of small bowel within the left abdomen are favored to be physiologic. No definite bowel obstruction identified. 2. Cirrhosis with stigmata of portal venous hypertension. 3. Mild wall thickening of the cecum, ascending colon and terminal ileum may be secondary to portal enteropathy/colopathy. A nonspecific enteritis/colitis could appear similarly. 4. Avascular necrosis of the bilateral femoral heads. Severe joint space narrowing of the left hip with left femoral head articular collapse/articular fragmentation has progressively worsened from the prior exam. 5. Additional findings as above. ACT 112: Negative or not required by law. The above report was generated using voice recognition software. It may contain grammatical, syntax or spelling errors. Electronically signed by: Gerardo Brown M.D. 01/11/2023 12:34 PM Dictated:01/11/23 1223 Transcribed: 01/11/23 1223 Radiology Findings: XR hip LT 2V w pelvis HISTORY: 57 years-old Male left hip pain acute left-sided hip pain COMPARISON: 02/22/2022 TECHNIQUE: AP view of the pelvis with 2 views of the left hip FINDINGS: Severe joint space narrowing of the left femoral acetabular joint with prominent avascular necrosis, subcortical cystic changes and mild articular collapse. Mild osteoarthritis of the right hip with associated avascular necrosis. No associated right femoral head articular collapse. No acute fracture or dislocation. IMPRESSION: 1. Severe joint space narrowing of the left femoral acetabular joint with prominent avascular necrosis and mild articular collapse. 2. Mild joint space narrowing of the right hip with associated avascular necrosis of the right femoral head. ACT 112: Negative or not required by law. The above report was generated using voice recognition software. It may contain grammatical, syntax or spelling errors. Electronically signed by: Gerardo Brown M.D. 01/11/2023 11:01 AM Dictated:01/11/23 1058 Transcribed: 01/11/23 1058
--- NOTE | 2023-01-13 14:59 | Hospitalist Progress Note ---
Date of Service January 13, 2023 Assessment & Plan (1) Acute hepatic encephalopathy: Plan: Patient is 57 y/o M with PMH HTN, HLD, history TIA, history ETOH abuse, cirrhosis, esophageal varices, ascites, hepatic encephalopathy, GERD presented to ER with increased confusion x 5 days. Resolved. Now back to baseline. Ammonia level: 116->85, lactate WNL. No leukocytosis. Hgb: 13.5, PLT: 49, INR: 1.3, T. bili: 1.8, alk phos: 164, AST: 39, ALT: 24 CT Abd/pelvis: concerning for cirrhosis with portal venous hypertension, possible enteritis/colitis Blood culture x2 with NGTD, afebrile throughout Started on empiric Rocephin and lactulose in the ED Seen by GI consult- no new recs. (2) Hip pain: (3) Avascular necrosis of femur: Plan: Known history of avascular necrosis of femur Hip/pelvis x-ray: Notes prominent avascular necrosis CT ABD/PELVIS: Notes avascular necrosis of the bilateral femoral heads and severe joint space narrowing of the left hip with left femoral head articular collapse/articular fragmentation that has progressively worsened from the prior exam. Followed with [facility], Dr Short. Seen by ortho- recommended hip replacement at [facility]. [place] [facility] [place] Continue pain meds Seen by pain management- recs noted He will need wheel chair as- 1. Patients mobility limitation impairs ability to participate in one or more activities such as toileting, feeding, dressing, grooming and bathing; and 2. Mobility limitation cannot be resolved by use of cane or walker; and 3. Patient is able to safely use a manual wheelchair; 4. Patients functional mobility deficit can be resolved by use of a manual wheelchair and patient can maneuver the chair independently; or there is a caregiver to assist the patient with maneuvering; and 5. Patient has the strength to maneuver the wheelchair; and 6. Patient has a caregiver that can propel the chair. (4) Alcoholic cirrhosis: (5) Thrombocytopenia: (6) History of ascites: Plan: History esophageal varices, ascites Reports last ETOH use over 1 year ago however monitor for signs of alcohol withdrawal Continue furosemide, spironolactone, rifaximin, lactulose Follows with GI outpt (7) HLD (hyperlipidemia): Plan: Continue atorvastatin (8) GERD (gastroesophageal reflux disease): Plan: Continue PPI (9) Depression: Plan: Continue fluoxetine DVT Prophylaxis: SCDs given thrombocytopenia Full Code Admission and Anticipated Discharge Date Admission Date: January 11, 2023 Subjective Patient was seen and examined at bedside in presence of family. Still in pain- oxy helps but currently has none at home. He continues to have multiple daily bowel movements with lactulose. He is mentating fine and back to baseline. Review of Systems Review of Systems: All systems reviewed & are unremarkable except as noted in Subjective Physical Exam Physical Exam: General: Lying comfortably in bed, not in distress, on room air HEENT: EOMI, CHLOE, MMM Chest: Clear breath sounds bilaterally, no wheezes or crackles CVS: Regular rate and rhythm, normal heart sounds, no murmur Abdomen: Soft, non tender, not distended, normal bowel sounds Neuro: Awake, alert, oriented, conversing well, non focal Extremities: No cyanosis, clubbing or edema Results & Data Results & Data Vital Signs (Past 12 Hours) Vital Signs Temp Pulse Pulse Resp BP BP Pulse Ox 01/13/23 11: 36.6 C 78 20 98/61 L 96 01/13/23 10:31 89 01/13/23 08:05 36.9 C 85 20 107/67 92 01/13/23 03:30 36.9 C 90 18 115/65 95 O2 Del Method 01/13/23 11:23 Room Air 01/13/23 10:31 01/13/23 08:05 Room Air 01/13/23 03:30 Room Air Medications Administered Current Inpatient Medications Acetaminophen (Acetaminophen 325 Mg Tab) 650 mg PO Q8H PRN PRN Reason: Mild Pain (Scale 1, 2, 3) Stop: 02/10/23 17:26 Atorvastatin Calcium (Atorvastatin 20 Mg Tab) 20 mg PO HS ANNMARIE Stop: 02/10/23 20:59 Last Admin: 01/12/23 20:37 Dose: 20 mg Fluoxetine HCl (Fluoxetine Hcl 10 Mg Cap) 10 mg PO QAM ANNMARIE Stop: 02/11/23 08:59 Last Admin: 01/13/23 08:18 Dose: 10 mg Furosemide (Furosemide 40 Mg Tab) 40 mg PO DAILY ANNMARIE Stop: 02/11/23 08:59 Last Admin: 01/13/23 08:18 Dose: 40 mg Gabapentin (Gabapentin 100 Mg Cap) 100 mg PO TID [facility] Stop: 02/10/23 20:59 Last Admin: 01/13/23 08:18 Dose: 100 mg Hydromorphone HCl (Hydromorphone Inj 0.5 Mg/0.5 Ml Syr) 0.5 mg IV Q6H PRN PRN Reason: Severe Pain (Scale 7, 8, 9,10) Stop: 01/25/23 17:26 Last Admin: 01/12/23 19:47 Dose: 0.5 mg Ceftriaxone Sodium 2,000 mg/ (Dextrose) 50 mls @ 100 mls/hr IV Q24H [facility]; Protocol Stop: 01/13/23 18:59 Last Infusion: 01/12/23 20:58 Dose: Infused Lactulose (Lactulose Syrup 20 Gm/30 Ml Udc) 20 gm PO TID [facility] Stop: 02/10/23 20:59 Last Admin: 01/13/23 08:18 Dose: 20 gm Magnesium Oxide (Magnesium Oxide 400 Mg Tab) 400 mg PO AMHS [facility] Stop: 02/10/23 20:59 Last Admin: 01/13/23 08:18 Dose: 400 mg Ondansetron HCl (Ondansetron Inj 2 Mg/Ml 2 Ml Vial) 4 mg IV Q6H PRN PRN Reason: Nausea Stop: 02/10/23 17:26 Oxycodone HCl (Oxycodone Hcl Ir 5 Mg Tab (Immediate Release)) 5 mg PO Q12H PRN PRN Reason: Moderate Pain (Scale 4, 5, 6) Stop: 01/25/23 17:26 Last Admin: 01/13/23 09:45 Dose: 5 mg Pantoprazole Sodium (Pantoprazole 40 Mg Tab) 40 mg PO BID [facility] Stop: 02/10/23 20:59 Last Admin: 01/13/23 08:18 Dose: 40 mg Rifaximin (Rifaximin 550 Mg Tablet) 550 mg PO BID [facility] Stop: 02/10/23 20:59 Last Admin: 01/13/23 08:18 Dose: 550 mg Spironolactone (Spironolactone 25 Mg Tab) 25 mg PO DAILY [facility] Stop: 02/11/23 08:59 Last Admin: 01/13/23 08:19 Dose: 25 mg Tamsulosin HCl (Tamsulosin Hcl 0.4 Mg Cap) 0.4 mg PO HS [facility] Stop: 02/10/23 20:59 Last Admin: 01/12/23 20:38 Dose: 0.4 mg
--- NOTE | 2023-01-13 18:27 | Discharge Summary ---
Date of Service January 13, 2023 Admission HPI Per Admitting Provider Patient is 57 y/o M with PMH HTN, HLD, history TIA, history ETOH abuse, cirrhosis, esophageal varices, ascites, hepatic encephalopathy, GERD and others listed below presented to ER with multiple medical complaints. Patient states for the past 5 days he has been getting more confused and having trouble remembering things. He states this feels similar to when his ammonia levels have been elevated in the past. He states he missed a dose of lactulose. Patient states lactulose he has been receiving outpatient has foul taste and he has been having difficulty taking it. Patient states that he feels that he gets nausea with taking it. He states in past has also had vomiting if he takes medications on empty stomach. He has been trying to take medications after eating a piece of toast. Otherwise denies vomiting. Has 5-6 loose BMs daily while on lactulose. Denies any abdominal pain. Denies any increased abdominal distention. Patient with history femoral avascular necrosis. States has been having severe left hip pain. Pain is worse with ambulation.. He states he has been falling at home secondary to difficulty with ambulating secondary to left hip pain. Has been seen by [facility] orthopedics, Dr Short, and states was to have surgery for THR for left femoral avascular necrosis in 11/2022 however patient had confusion on day of surgery and surgery was cancelled. It was felt patient needed to be seen at tertiary center secondary to comorbidities associated with cirrhosis. Appears patient was referred to ortho at [facility] [place] however outpatient office note is not clear on definitive future treatment plans for patient. Patient was thinking of getting second opinion. Patient also reports has been having intermittent shaking of bilateral upper arms that has been ongoing for almost a year. He also reports will get twitching of legs especially at night. Reports has been taking oxycodone at bedtime for hip pain and when pain subsides the leg twitching resolves. Denies dysuria, hematuria. Reports urinary hesitancy for the past couple months. Denies fever/chills, diaphoresis, hematemesis, melena, hematochezia, VILLASEÑOR, dizziness, syncope, CP, SOB, palpitations, cough, sore throat, rhinorrhea, abdominal pain, paresthesias, extremity edema, rashes. Admission Exam Per Admitting Provider General: mild distress secondary to pain, chronic ill appearing male, WDWN Head: normocephalic, atraumatic Eyes: conjunctiva non-injected, anicteric ENT: normal inspection external ears, nose, mucous membranes moist Neck: supple, trachea midline Lungs: clear, no respiratory distress, no wheezing/rhonchi/rales CV: RRR, no murmur, no pretibial edema Abd: normal BS, soft, non-tender Ext: no cyanosis, no calf tenderness, +diffuse tenderness to palpation entire left hip region, +pain with attempted flexion and extension of left hip. sensation to light touch intact and distal pulses intact Neuro: A&O x 3, no focal deficits noted, normal affect Skin: warm, dry Principal Diagnosis Hepatic encephalopathy, Bilateral avascular necrosis of femur with hip pain Discharge Exam General: Lying comfortably in bed, not in distress, on room air HEENT: EOMI, CHLOE, MMM Chest: Clear breath sounds bilaterally, no wheezes or crackles CVS: Regular rate and rhythm, normal heart sounds, no murmur Abdomen: Soft, non tender, not distended, normal bowel sounds Neuro: Awake, alert, oriented, conversing well, non focal Extremities: No cyanosis, clubbing or edema Discharge Data Allergies Allergy/AdvReac Type Severity Reaction Status Date / Time No Known Drug Allergies Allergy Unknown Verified 05/16/22 08:03 Consultations 01/11/23 13:40 ED Decision to Admit Stat 01/11/23 14:43 Consult Orthopedic Surgery Routine 01/12/23 20:09 Consult Gastroenterology Routine 01/13/23 14:08 Consult Pain Management Routine Ordered Studies 01/11/23 11:43 CT Abd and Pelvis [CT abd pelvis IV con only] Stat Laboratory Results WBC 5.43 K/ul (4.8-10.8) 01/12/23 06:52 RBC 3.68 M/uL (4.70-6.10) L 01/12/23 06:52 Hgb 12.4 g/dl (14.0-18.0) L 01/12/23 06:52 Hct 34.9 % (42.0-52.0) L 01/12/23 06:52 MCV 94.8 fL (80.0-100.0) 01/12/23 06:52 MCH 33.7 pg (25.0-34.0) 01/12/23 06:52 MCHC 35.5 g/dL (32.0-36.0) 01/12/23 06:52 RDW Std Deviation 53.4 fL (36.4-46.3) H 01/12/23 06:52 RDW Coeff of Fabiola 15.1 % (11.5-14.5) H 01/12/23 06:52 Plt Count 45 K/uL (130-400) L 01/12/23 06:52 MPV 12.2 fL (9.4-12.4) 01/12/23 06:52 Immature Gran % (Auto) 0.2 % 01/12/23 06:52 Neut % (Auto) 49.4 % 01/12/23 06:52 Lymph % (Auto) 23.8 % 01/12/23 06:52 Dodge % (Auto) 15.1 % 01/12/23 06:52 Eos % (Auto) 10.9 % 01/12/23 06:52 Baso % (Auto) 0.6 % 01/12/23 06:52 Neut # (Auto) 2.69 K/uL (1.40-6.50) 01/12/23 06:52 Lymph # (Auto) 1.29 K/uL (1.20-3.40) 01/12/23 06:52 Dodge # (Auto) 0.82 K/uL (0.11-0.59) H 01/12/23 06:52 Eos # (Auto) 0.59 K/uL (0.00-0.50) H 01/12/23 06:52 Baso # (Auto) 0.03 K/uL (0.00-0.20) 01/12/23 06:52 Immature Gran # (Auto) 0.01 K/uL (0.01-0.20) 01/12/23 06:52 PT 13.7 Seconds (9.0-12.0) H 01/11/23 10:14 INR 1.3 (0.9-1.1) H 01/11/23 10:14 Sodium 139 mmol/L (136-145) 01/12/23 06:52 Potassium 3.9 mmol/L (3.5-5.1) 01/12/23 06:52 Chloride 113 mmol/L (98-107) H 01/12/23 06:52 Carbon Dioxide 20 mmol/L (21-32) L 01/12/23 06:52 Anion Gap 6 (3-11) 01/12/23 06:52 BUN 14 mg/dl (6-23) 01/12/23 06:52 Creatinine 0.91 mg/dl (0.6-1.4) 01/12/23 06:52 Est Cr Clr Drug Dosing 95.9 ml/min 01/12/23 06:52 Est GFR ( Amer) 107.3 ml/min 01/12/23 06:52 Est GFR (Non-Af Amer) 92.6 ml/min 01/12/23 06:52 BUN/Creatinine Ratio 15.4 (10-20) 01/12/23 06:52 Glucose 95 mg/dl (70-99(Fasting)) 01/12/23 06:52 Lactate 1.3 mmol/L (0.4-2.0) 01/11/23 10:14 Calcium 8.6 mg/dl (8.6-10.3) 01/12/23 06:52 Phosphorus 3.7 mg/dl (2.5-4.9) 01/12/23 06:52 Magnesium 1.7 mg/dl (1.7-2.4) 01/12/23 06:52 Total Bilirubin 2.2 mg/dl (0.2-1.0) H 01/12/23 06:52 AST 34 U/L (13-39) 01/12/23 06:52 ALT 20 U/L (7-52) 01/12/23 06:52 Alkaline Phosphatase 98 U/L (34-104) 01/12/23 06:52 Ammonia 85.0 umol/L (18-72) H 01/12/23 06:52 Troponin I High Sens 5.0 pg/ml (0-20) 01/11/23 10:14 Total Protein 5.7 gm/dl (6.0-8.3) L 01/12/23 06:52 Albumin 3.1 gm/dl (3.4-5.0) L 01/12/23 06:52 Globulin 2.6 gm/dl (2.5-4.0) 01/12/23 06:52 Albumin/Globulin Ratio 1.2 (0.9-2) 01/12/23 06:52 TSH 1.545 uIu/ml (0.300-4.500) 01/11/23 10:14 Urine Color Dark Yellow 01/11/23 11:12 Urine Appearance Clear (Clear) 01/11/23 11:12 Urine pH 5.5 (4.5-7.5) 01/11/23 11:12 Ur Specific [place] 1.038 (1.000-1.030) H 01/11/23 11:12 Urine Protein Negative (Negative) 01/11/23 11:12 Urine Glucose (UA) Negative (Negative) 01/11/23 11:12 Urine Ketones 1+ (Negative) H 01/11/23 11:12 Urine Blood 2+ (Negative) H 01/11/23 11:12 Urine Nitrite Positive (Negative) A 01/11/23 11:12 Urine Bilirubin 1+ (Negative) H 01/11/23 11:12 Urine Urobilinogen Negative (Negative) 01/11/23 11:12 Ur Leukocyte Esterase Negative (Negative) 01/11/23 11:12 Urine WBC (Auto) 1-5 /hpf (0-5) 01/11/23 11:12 Urine RBC (Auto) 10-30 /hpf (0-4) H 01/11/23 11:12 U Hyaline Cast (Auto) 1-5 /lpf (0-5) 01/11/23 11:12 U Epithel Cells (Auto) 5-10 /lpf (0-5) H 01/11/23 11:12 Urine Bacteria (Auto) Negative (Negative) 01/11/23 11:12 Adenovirus (PCR) Not Detected (NotDetected) 01/11/23 11:12 B. pertussis DNA (PCR) Not Detected (NotDetected) 01/11/23 11:12 B.parapertussis DNA PCR Not Detected (NotDetected) 01/11/23 11:12 C. pneumoniae DNA (PCR) Not Detected (NotDetected) 01/11/23 11:12 Coronavirus OC43 (PCR) Not Detected (NotDetected) 01/11/23 11:12 Coronavirus HKU1 (PCR) Not Detected (NotDetected) 01/11/23 11:12 Coronavirus 229E (PCR) Not Detected (NotDetected) 01/11/23 11:12 SARS-CoV-2 (PCR) Not Detected (NotDetected) 01/11/23 11:12 Coronavirus NL63 (PCR) Not Detected (NotDetected) 01/11/23 11:12 Human Metapneumovir PCR Not Detected (NotDetected) 01/11/23 11:12 Influenza Type A (PCR) Not Detected (NotDetected) 01/11/23 11:12 Influenza Type B (PCR) Not Detected (NotDetected) 01/11/23 11:12 M. pneumoniae (PCR) Not Detected (NotDetected) 01/11/23 11:12 Parainfluenza 1 (PCR) Not Detected (NotDetected) 01/11/23 11:12 Parainfluenza 2 (PCR) Not Detected (NotDetected) 01/11/23 11:12 Parainfluenza 3 (PCR) Not Detected (NotDetected) 01/11/23 11:12 Parainfluenza 4 (PCR) Not Detected (NotDetected) 01/11/23 11:12 RSV (PCR) Not Detected (NotDetected) 01/11/23 11:12 Entero/Rhino (PCR) Not Detected (NotDetected) 01/11/23 11:12 Impressions Chest X-Ray 01/11/23 10:07 XR chest 1V portable HISTORY: 57 years-old Male weakness acute weakness COMPARISON: 12/09/2021 TECHNIQUE: AP view of the chest FINDINGS: Cardiac mediastinal and hilar silhouettes are within normal limits. No pneumothorax, pleural effusion, airspace consolidation or pulmonary edema. Bones of the chest appear grossly intact. IMPRESSION: No acute process. ACT 112: Negative or not required by law. The above report was generated using voice recognition software. It may contain grammatical, syntax or spelling errors. Electronically signed by: Gerardo Brown M.D. 01/11/2023 10:53 AM Hip/Pelvis X-Ray 01/11/23 10:07 XR hip LT 2V w pelvis HISTORY: 57 years-old Male left hip pain acute left-sided hip pain COMPARISON: 02/22/2022 TECHNIQUE: AP view of the pelvis with 2 views of the left hip FINDINGS: Severe joint space narrowing of the left femoral acetabular joint with prominent avascular necrosis, subcortical cystic changes and mild articular collapse. Mild osteoarthritis of the right hip with associated avascular necrosis. No associated right femoral head articular collapse. No acute fracture or dislocation. IMPRESSION: 1. Severe joint space narrowing of the left femoral acetabular joint with prominent avascular necrosis and mild articular collapse. 2. Mild joint space narrowing of the right hip with associated avascular necrosis of the right femoral head. ACT 112: Negative or not required by law. The above report was generated using voice recognition software. It may contain grammatical, syntax or spelling errors. Electronically signed by: Gerardo Brown M.D. 01/11/2023 11:01 AM Abdomen/Pelvis CT 01/11/23 11:[address] WITH IV CONTRAST CT DOSE: 1159.09 mGy.cm HISTORY: Acute left lower quadrant abdominal pain . Reported prior appendectomy. LLQ pain TECHNIQUE: Multiaxial CT images of the abdomen and pelvis were performed following the IV administration of 93 cc of Optiray, A dose lowering technique was utilized adhering to the principles of ALARA. COMPARISON STUDY: 02/22/2022 FINDINGS: Cardiomegaly. Clear lung bases. No pneumoperitoneum. Splenomegaly again noted with calcified granulomata. The spleen measures up to at least 14 cm in length. Unremarkable pancreas and adrenal glands. Cholecystectomy. Cirrhotic liver. Scattered hepatic cysts measure up to 12 mm. No solid liver lesions identified. Patent portal vein. Left-sided renal sinus cysts. Mild nonspecific bilateral perinephric stranding. There is no hydronephrosis or urolith identified. Prostatomegaly. Urinary bladder wall thickening with partial distention. Trace ascites. Ectasia of infrarenal abdominal aorta redemonstrated measuring 2.7 x 2.6 cm. There is no lymphadenopathy identified. Varicosities of the abdomen are again noted including distal paraesophageal varices. Mild to moderate colonic fecal retention. There is mild wall thickening of the cecum, ascending colon and distal ileum. No bowel obstruction. Slightly dilated fluid-filled loops of small bowel within the left abdomen measure up to 3.2 cm. No discrete transition point identified. Avascular necrosis of the left greater than right femoral heads with severe left hip joint space narrowing and left femoral articular head collapse. No acute fracture. IMPRESSION: 1. Mildly dilated fluid-filled loops of small bowel within the left abdomen are favored to be physiologic. No definite bowel obstruction identified. 2. Cirrhosis with stigmata of portal venous hypertension. 3. Mild wall thickening of the cecum, ascending colon and terminal ileum may be secondary to portal enteropathy/colopathy. A nonspecific enteritis/colitis could appear similarly. 4. Avascular necrosis of the bilateral femoral heads. Severe joint space narrowing of the left hip with left femoral head articular collapse/articular fragmentation has progressively worsened from the prior exam. 5. Additional findings as above. ACT 112: Negative or not required by law. The above report was generated using voice recognition software. It may contain grammatical, syntax or spelling errors. Electronically signed by: Gerardo Brown M.D. 01/11/2023 12:34 PM Hospital Course (1) Confusion: Patient is 57 y/o M with PMH HTN, HLD, history TIA, history ETOH abuse, cirrhosis, esophageal varices, ascites, hepatic encephalopathy, GERD presented to ER with increased confusion x 5 days. Work-up lactate WNL. No leukocytosis. Hgb: 13.5, PLT: 49, INR: 1.3, T. bili: 1.8, alk phos: 164, AST: 39, ALT: 24. Ammonia elevated. CT Abd/pelvis: concerning for cirrhosis with portal venous hypertension, p ossible enteritis/colitis Blood culture x2 with NGTD, afebrile throughout. Urinalysis noted as above UTI and patient does not have any signs or symptoms either. Hip/pelvis x-ray: Notes prominent avascular necrosis CT ABD/PELVIS: Notes avascular necrosis of the bilateral femoral heads and severe joint space narrowing of the left hip with left femoral head articular collapse/articular fragmentation that has progressively worsened from the prior exam. Seen and examined patient at bedside in presence of family. Patient states that his main issue is his hip pain from avascular necrosis of bilateral femoral which is preventing him from sleeping. He thinks probably the sleep deprivation was causing his confusion and he was back to normal once his pain was controlled with the pain medicine emergency. States that he gets oxycodone 5 mg as needed from orthopedic doctor for his hip pain. When he takes at bedtime, he can get good control of his pain and can get good sleep. He does not have any evidence for SBP or infection at this point and there is no indication for continuing antibiotics, hence empiric ceftriaxone was discontinued. He also states that he takes his lactulose and rifaximin regularly at home and has multiple loose bowel meds every day, even prior to coming to the hospital, making acute hepatic encephalopathy less likely. He was seen by GI-no new recommendations. He is well compensated with regards to his cirrhosis. He was seen by orthopedics and pain management. Per orthopedics, given his medical comorbidities and his current situation, total hip replacement would be the best option and would be best managed at a tertiary care center, to which pain management agrees. He has an appointment for evaluation at [facility] in 4 weeks and orthope dics is going to try to move it to a sooner date. Patient was also ordered a wheelchair for his ambulatory dysfunction. Patient is anxious to go home. He is being discharged on oxycodone 5 mg twice daily as needed for his pain-total of 15 pills were prescribed. Rest to be refilled by his PCP or orthopedics until the surgery date. PDMP reviewed-no red flag signs identified. He is comfortable and stable for discharge home. No new medications were prescribed except for oxycodone. (2) Avascular necrosis of femur: Imaging noted. Follows with [facility] orthopedics. Seen by orthopedics and pain management here. Records noted as above. (3) Alcoholic cirrhosis: Well compensated. Continue home medications. Total Time Total Time Spent Total Time Spent (In Minutes): 45 Discharge Plan Discharge Items Patient Disposition: Home - Self-Care Reason For Visit: ELEVATED AMMONIA Discharge Diagnosis: Hepatic encephalopathy, Bilateral avascular necrosis of femur with hip pain Activity: Resume your previous activity Non-emergency contact: Primary Care Provider Call non-emergency contact if: you have any medication questions, your symptoms worsen and your pain is not controlled Follow-up/Referrals: Toby Paz MD [Primary Care Provider] - (Date & Time 01/17/2023 1:40 PM Provider rEis Sharpe MD [facility] ) Diet: Heart Healthy Addtl Attending Provider Instructions: You can take oxycodone as needed for pain Avoid ambulating for now. Please use the wheelchair instead. Keep up your ortho appointment Follow up with your family doctor or orthopedic doctor for more refill of your pain meds Pending Studies at Discharge: No Stand-Alone Forms: My [facility], Smoking Cessation Medications and DC Order Prescriptions: New oxycodone 5 mg tablet 5 mg PO BID PRN (Reason: pain) Qty: 15 0RF Continued atorvastatin 20 mg Tablet 20 mg PO HS pantoprazole 40 mg Tablet,Delayed Release (Dr/Ec) 40 mg PO BID magnesium oxide 400 mg (241.3 mg magnesium) tablet 400 mg PO AMHS lactulose 10 gram/15 mL solution 30 ml PO QID Rx Instructions: to have 3 BM's daily furosemide 40 mg tablet 40 mg PO DAILY gabapentin 100 mg capsule 100 mg PO TID Xifaxan 550 mg tablet 550 mg PO BID fluoxetine 10 mg capsule 10 mg PO QAM oxycodone 5 mg tablet 5 mg PO Q12H PRN (Reason: Pain, Severe) spironolactone 25 mg tablet 25 mg PO DAILY Discharge Orders: Discharge Order (Routine); Ordered 01/13/23 Ordered By: Enrique Perea Admission Data Admit Date/Time: 01/11/23 14:10 Attending Provider: Enrique Perea Admit Provider: Monik Valenzuela Primary Care Provider: Toby Paz Other Providers: Gabriel Ferrell ; Monik Valenzuela ; Ki Huang ; Farhan Marquez Other Interventions: Discharge Summary Assessment (RN) Last Done: 01/13/23 15:43
== END 2023-01-13 15:57 | disposition home or self-care (01) ==
LOC: ED 09:43 → EDINP 09:43 → SUATTDRO 14:10 → 2N 01-12 02:07

== ENCOUNTER 2023-05-14 06:34 | Observation (INO) ==
--- OUTSIDE RECORDS SUMMARY | 2023-05-14 06:38 | External Medical Summary ---
Author Name Unknown Address Unknown Organization [id number]:LABORATORY [facility] [address] [place] [id number] Laboratory Report Ordering Provider Test Date Status TERESITA MORRISON 05/01/2023 08:35:00 Final Observation Date Value Abnormality Reference (Units ) Status WBC, Total 05/01/2023 08:35:00 3.72 Below low normal 4. 00-10.80 (K/uL) Final RBC 05/01/2023 08:35:00 3.09 4.50-5.25 (M/uL) Final Hemoglobin 05/01/2023 08:35:00 11.0 Below low normal 14 .0-16.8 (g/dL) Final HCT 05/01/2023 08:35:00 32.5 Below low normal 40. 0-48.4 (%) Final MCV 05/01/2023 08:35:00 105.2 82.0-99.5 (fL) Final MCH 05/01/2023 08:35:00 35.6 27.0-34.0 (pg) Final MCHC 05/01/2023 08:35:00 33.8 32.0-36.0 (g/dL) Final RDW 05/01/2023 08:35:00 18.0 11.5-15.5 (%) Final Platelets 05/01/2023 08:35:00 42 Below low normal 140 -400 (K/uL) Final MPV 05/01/2023 08:35:00 13.5 6.6-11.1 ( fL) Final Performing Location [facility]ORY [facility] [address] [place] [id number]
--- OUTSIDE RECORDS SUMMARY | 2023-05-14 06:38 | External Medical Summary ---
Author Name Unknown Address Unknown Organization [id number]:LABORATORY [facility] [address] [place] [id number] Laboratory Report Ordering Provider Test Date Status TERESITA MORRISON 04/27/2023 09:10:00 Final Observation Date Value Abnormality Reference (Units ) Status WBC, Total 04/27/2023 09:10:00 4.86 4.00-10.8 0 (K/uL) Final RBC 04/27/2023 09:10:00 3.22 4.50-5.25 (M/uL) Final Hemoglobin 04/27/2023 09:10:00 11.2 Below low normal 14 .0-16.8 (g/dL) Final HCT 04/27/2023 09:10:00 34.6 Below low normal 40. 0-48.4 (%) Final MCV 04/27/2023 09:10:00 107.5 82.0-99.5 (fL) Final MCH 04/27/2023 09:10:00 34.8 27.0-34.0 (pg) Final MCHC 04/27/2023 09:10:00 32.4 32.0-36.0 (g/dL) Final RDW 04/27/2023 09:10:00 19.8 11.5-15.5 (%) Final Platelets 04/27/2023 09:10:00 60 Below low normal 140 -400 (K/uL) Final Consistent with previous res ults.
null MPV 04/27/2023 09:10:00 12.9 6.6-11.1 ( fL) Final Performing Location LABORATORY [facility] [employer] [facility] [address] [place] [id number]
--- OUTSIDE RECORDS SUMMARY | 2023-05-14 06:38 | External Medical Summary | Summary of Care ---
Author Name Unknown Organization [facility] Address [address] [place] [address] Phone [phone] Care Team Providers Care Air Quality Instrument Specialist Name Role Phone Toby Paz MD Primary Care Provider [phone] Reason for Referral * Ancillary Services (Within 3 days (urgent)) - Authorized Specialty Diagnoses / Procedures Referred By Contac t Referred To Contact Building Insulation Supervisor Diagnoses Thrombocytopenia (HCC) Toby Paz MD [address] [place] [address] Referral ID Status Reason Start Date Expiration Date Visits Requested Visits Authorized [id number] Authorized Ancillary Services Required 04/24/[phone] Question Answer Referral Priority Within 3 days (urgent) Where should this appointment be scheduled? Harish Comments Is Patient homebound? Yes CBC with Diff every Mon, Wed, Fri All sections of this form must be filled out completely. Forms with missing or illegible information will be returned for completion. This form should not be modified in any way. Forms that have been modified will be returned. This form may not be submitted by a home health agency. It must be complete and submitted by the ordering provider. One full business day lead time is required and service will be scheduled based on the next service day for the [facility] Home Phlebotomy does not service every geographical location on a daily basis. Contact [facility] Client Services at to find out service days for a specific location. Medical Laboratory [address] [place] [id number] Edwin Jacobs M.D. Director and Insurance Rater Patient Name: Mauro Liu : 1965 Sex: male Address [address] [place] [address] Provider: None? Toby Paz MD? Diagnosis: Tests Requested Reason for Visit * Reason Onset Date Comments Order Request 04/24/2023 Encounter Details Date Type Department Care Team (Late st Contact Info) Description 04/24/2023 Telephone [facility] [address] [place] [address] Toby Paz MD [address] [place] [address] Order Request Allergies Active Allergy Reactions Criticality Noted Date Comments Other Allergy (See Comments) Anaphylaxis High 06/21/2018 Bee stings- swelling documented as of this encounter (statuses as of 04/25/2023) Medications Medication Sig Dispensed Refills Start Date End Date Status EpiPen 2-Dave 0.3 MG/0.3ML Injection Solution Auto-injector For a severe reaction: Place orange end against the outer thigh, press firmly, hold in place for 10 seconds and go to the Emergency room. 2 Each 1 07/20/2020 Active Iron (Ferrous Sulfate) 325 (65 Fe) MG Oral Tablet Take by mouth. 0 Active Atorvastatin Calcium 20 MG Oral Tablet (Lipitor)Indications :Dyslipidemia Take 1 Tablet by mouth in the morning. 90 Tablet 1 03/29/2023 Active Diclofenac Sodium 1 % External Gel (Voltaren) Apply topically to affected area 2 times a day. Apply to area lateral to left hip 150 g 5 03/29/2023 Active FLUoxetine HCl 10 MG Oral Capsule (PROzac) Take 1 Capsule by mouth in the morning. Every morning.. 90 Capsule 0 03/29/2023 Active Furosemide 40 MG Oral Tablet (Lasix) Take 1 Tablet by mouth in the morning. In the morning.. 30 Tablet 1 03/29/2023 Active Lactulose 10 GM/15ML Oral Solution (Constulose)Indicati ons:Hyperammonemia (HCC) Take 30 mL by mouth in the morning and 30 mL at noon and 30 mL in the evening and 30 mL before bedtime. 946 mL 5 03/29/2023 Active Gabapentin 100 MG Oral Capsule (Neurontin)Indicatio ns:Complaint of paresthesia take 1 capsule by mouth every morning and AT NOON and BEFORE BEDTIME 90 Capsule 5 03/29/2023 Active Magnesium Oxide -Mg Supplement 400 (240 Mg) MG Oral Tablet (Mag-Ox) take 1 tablet by mouth IN THE MORNING AND BEFORE BEDTIME 180 Tablet 1 03/29/2023 Active Pantoprazole Sodium 40 MG Oral Tablet Delayed Release (Protonix)Indication s:Gastroesophageal reflux disease Take 1 Tablet by mouth in the morning and 1 Tablet before bedtime. 180 Tablet 1 03/29/2023 Active Spironolactone 25 MG Oral Tablet (Aldactone) Take 1 Tablet by mouth in the morning. 90 Tablet 0 03/29/2023 Active traZODone HCl 50 MG Oral Tablet (Desyrel)Indications :Primary insomnia Take 2 Tablets by mouth at bedtime. 180 Tablet 1 03/29/2023 Active rifAXIMin 550 MG Oral Tablet (Xifaxan) take 1 tablet by mouth IN THE MORNING then take 1 tablet by mouth BEFORE BEDTIME 60 Tablet 2 03/29/2023 Active Vitamin A & D [id number] UNIT Oral Tablet Take by mouth. 0 Active oxyCODONE HCl 5 MG Oral Tablet (Oxy IR)Indications:Hip pain, left,Avascular necrosis of bone of hip, unspecified laterality (HCC) Take 1 Tablet by mouth every 12 hours as needed for Pain, Severe. 30 Tablet 0 04/04/2023 Active Cefadroxil 500 MG Oral Capsule (Duricef) Take 1 Capsule by mouth in the morning and 1 Capsule before bedtime. 0 Active Enoxaparin Sodium 40 MG/0.4ML Injection Solution Prefilled Syringe (Lovenox) Inject 40 mg under the skin in the morning. 0 Active traMADol HCl 50 MG Oral Tablet (Ultram) Take 1 Tablet by mouth every 8 hours as needed for Pain, Moderate. 0 Active Hospital, Clinic, or Other Facility Administered Medication Ordered Dose Route Frequency Start Date End Date Status albuterol sulfate (PROVENTIL) (2.5 MG/3ML) 0.083% inhalation solution 2.5 mgIndications:SOB (shortness of breath) 2.5 mg NEBULIZER Q4H PRN 05/10/2018 Act guzman documented as of this encounter (statuses as of 04/25/2023) Active Problems Problem Noted Date Diagnosed Date Major depressive disorder with single episode Age-related nuclear cataract, bilateral 02/07/20 Alcohol dependence, uncomplicated 01/17/2023 AAA (abdominal aortic aneurysm) 10/25/2022 Overview: 3.0 cm AAA noted on MRI Liver 10/18/22 Iron deficiency anemia due to chronic blood loss 07/01/2022 Anemia in other chronic diseases classified else where 06/24/2022 Avascular necrosis of bone of hip 05/10/2022 Transient ischemic attack 06/17/2021 Cirrhosis of liver 06/17/2021 History of appendectomy 06/17/2021 Hx SBO 06/17/2021 Chronic alcohol abuse 06/17/2021 Subungual hematoma of finger of left hand 2020 Old myocardial infarction 04/13/2020 Gastro-esophageal reflux disease without esophag itis 04/13/2020 Thrombocytopenia 04/13/2020 Internal hemorrhoids 04/13/2020 HTN, goal below 130/80 08/07/2019 Steatosis of liver 05/30/2018 Elevated LFTs 12/29/2017 Dyslipidemia 03/02/2017 Angioedema 06/29/2016 Seasonal allergic rhinitis due to pollen 017 Family history of ischemic heart disease 002 Overview: father had TN's in 40's Gastroesophageal reflux disease with esophagitis documented as of this encounter (statuses as of 04/25/2023) Resolved Problems Problem Noted Date Diagnosed Date Resolved Date Facial swelling 06/09/2017 08/07/2019 Urticaria 06/09/2017 08/07/2019 Intestinal obstruction 05/09/201203/02 CLASSICAL MIGRAINE WITHOU ME NTION OF INTRACTABLE MIGRAINE 11/29/2001 08/07/2019 Undiagnosed cardiac murmurs 11/29/2001 03/02/2017 Overview: Not [place] on 11/29/01 documented as of this encounter (statuses as of 04/25/2023) Immunizations Name Administration Dates Next Due HEP A - Hepatitis A (Adult > 18 yrs) 06/06/2020 Pneumococcal Conjugate Vacci ne, 20-valent ([id number]) 06/24/2022 Seasonal Influenza Virus Vac cine, Unspecified Formulation 05/04/2021,01/13/2020,12/18/2018,2017,02/03/2017,12/22/2015,01/14/2015 Seasonal Influenza, PF, 6 M & above, IM , (FluLaval or Fluzone) 12/08/2022,12/14/2021,05/04/2021,2019,12/18/2018,02/01/2018,02/03/2017 Seasonal Influenza, Quadriva lent, No Preserve, IM 12/22/2015,01/14/2015 TDAP (age 10 and older)(Boostrix) 02/15/2017 documented as of this encounter Social History Tobacco Use Types Packs/Day Years Used Date Smoking Tobacco: Former Cigarettes 0.1 20 Q uit: 05/10/2015 Passive Smoke Exposure: Never Smokeless Tobacco: Never Comments:fiance smokes Alcohol Use Standard Drinks/Week Comments Not Currently 0 (1 standard drink = 0.6 oz pure alcohol) 12 pack on the weekends, No ETOH since December 2021 PHQ-2 Answer Date Recorded PHQ Adult Total Score 0 04/17/2023 Hunger Vital Sign Answer Date Recorded Within the past 12 months, y ou worried that your food would run out before you got the money to buy more. Never true 04/17/19 24 Within the past 12 months, t he food you bought just didn't last and you didn't have money to get more. Never true 04/17/2023 Sex and Gender Information Value Date Recorded Sex Assigned at Male 11/24/2022 1:52 PM EDT Gender Identity Male 11/24/2022 1:52 PM EDT Sexual Orientation Straight 08/27/2019 5: 39 PM EDT Job Start Date Occupation Industry Not on file Not on file Not on file documented as of this encounter Functional Status Functional Status Response Date of Assess ment Does this person have seriou s difficulty walking or climbing stairs? Yes 08/23/2021 documented as of this encounter Miscellaneous Notes * Telephone Encounter - Lacey Vargas RN - 04/25/2023 3:53 PM EST Home phlebotomy will do lab draws Monday & , spoke with mobile lab, also left message for Camille/[facility] to make her aware Lacey Vargas RN * Telephone Encounter - Lacey Vargas RN - 04/25/2023 11:36 AM EST Mondays will work Lacey Vargas RN * Telephone Encounter - Maylin Sutton OSA - 04/25/2023 8:24 AM EST Please arrange. If this cannot be done, please reply to this and let me know. Thank you. * Telephone Encounter - Toby Paz MD - 04/24/2023 4:58 PM EST Home phlebotomy referral entered - please see if we can help arrange. * Telephone Encounter - Lee Ann Walters LPN - 04/24/2023 1:52 PM EST Camille (OLGA) from [facility] states that she has ordered patient to get a CBC with Diff every Monday, Monday and Monday. Patient had surgery with them this past month and they need to keep an eye on his platelets. There is an active order in patients chart. [facility] Home Health has been drawing patients lab but patient is a hard stick and they recommend that Camille call [employer] to see if it could be set up [facility] [facility] to see patient to draw his CBC with Dif [facility] HH attempted to draw lab today and were unsuccessful Camille would like a call back once this is addressed Please advise documented in this encounter Plan of Treatment Upcoming Encounters Date Type Department Care Team (Late st Contact Info) Description 07/27/2023 9:30 AM EDT Procedure Only Endoscopy, [facility] [address] [place] [phone] Trish Villatoro MD [address] [place] [phone] 08/07/2023 3:00 PM EDT Office Visit Gastroenterology, [facility] [address] [place] [phone] Keyanna Gordon CRNP [address] [place] [phone] Scheduled Procedures Name Priority Associated Diagnoses Date/Ti me COLONOSCOPY FLEXIBLE PROXIMAL DIAGNOSTIC Recall History of colon polyps Scheduled Referrals Name Type Priority Associated Diagnoses Orde r Schedule HOME PHLEBOTOMY REFERRAL OP Referral Within 3 days (urgent) Thrombocytopenia (HCC) Ordered: 04/24/2023 Health Maintenance Due Date Last Done Comments Hepatitis B (1 of 3 - 3-dose series) 1965 COVID-19 Vaccine (#1) 01/12/1965 Albumin/Creatinine Ratio 1982 Zoster Vaccines (1 of 2) 2014 GFR 03/31/2024 03/31/2023, 12/03, 10/17/2022, Additional history exists Depression Screening 04/17/2024 04/17/2023 COLONOSCOPY-EVERY 3 YRS AGES 18-100 06/30/2024 06/30/2021, 06/30/2021, 05/30/2019, Additional history exists Diabetes Screening 03/31/2026 03/31/2023, 0 12/29/2022, 11/21/2022, Additional history exists DTaP,Tdap,and Td Vaccines (2 - Td or Tdap) 02/15/2027 02/15/2017 Pneumococcal Vaccine: Pediatrics (0 to 5 Years) and At-Risk Patients (6 to 64 Years) Completed 06/24/2022 Influenza Vaccine (FLU shot) Completed 10/2022, 12/14/2021, 05/04/2021, Additional history exists GARDASIL-HPV IMMUNIZATION SERIES Aged Out No longer eligible based on patient's age to complete this topic MENINGOCOCCAL (MENACTRA/MENVEO) Aged Out No longer eligible based on patient's age to complete this topic documented as of this encounter Medical Devices Not on filedocumented as of this encounter Visit Diagnoses Diagnosis Thrombocytopenia (HCC)- Primary Thrombocytopenia, unspecified documented in this encounter Care Teams Air Quality Instrument Specialist Relationship Specialty Start Date End Date Toby Paz MD [address] [place] [address] PCP - General Family Medicine 11/25/14 documented as of this encounter
--- OUTSIDE RECORDS SUMMARY | 2023-05-14 06:38 | External Medical Summary | Continuity of Care Document ---
Author Name Unknown Organization [address] Address [address] [place] [phone] Care Team Providers Care Manager Sales Name Role Phone Toby Paz Primary Care Physician [phone] Encounter [facility] [id number] Date(s): 05/03/23 - 05/03/[address] [phone] Encounter Diagnosis Unspecified cirrhosis of liver(Discharge Diagnosis) - 05/03/23 Presence of unspecified artificial hip joint(Discharge Diagnosis) - 05/03/23 Aftercare following joint replacement surgery(Discharge Diagnosis) - 05/03/23 Discharge Disposition: Home or Self Care Attending Physician: OLGA Jaimes Emily M Referring Physician: OLGA Jaimes Emily M Allergies, Adverse Reactions, Alerts No Known Allergies Medications atorvastatin 20 mg oral tablet 1 tab, PO, Daily Start Date: 01/18/23 Status: Ordered cholecalciferol 1250 mcg (50,000 intl units) oral capsule Start: 03/28/23 10:45:00 EST, See Instructions, Disp# 16 cap, 1 cap PO twice a week x 8 weeks, Pharmacy: [id number] Start Date: 03/28/23 Status: Ordered Duricef 500 mg oral capsule Start: 04/12/23 11:38:00 EST, 1 cap, PO, q12h, Disp# 14 cap, Pharmacy: [facility] Start Date: 04/12/23 Stop Date: 04/19/23 Status: Ordered FLUoxetine 10 mg oral capsule 1 cap, PO, Daily Start Date: 01/18/23 Status: Ordered furosemide 40 mg oral tablet 1 tab, PO, Daily Start Date: 01/18/23 Status: Ordered gabapentin 100 mg oral capsule 1 cap, PO, Daily Start Date: 01/18/23 Status: Ordered iron sulfate Start: 04/10/23 8:15:00 EST, See Instructions Start Date: 04/10/23 Status: Ordered lactulose Start: 01/18/23 9:58:00 EDT, 30 mL, PO, tid Start Date: 01/18/23 Status: Ordered Lovenox 40 mg/0.4 mL injectable solution Start: 04/12/23 12:48:00 EST, 0.4 mL, subQ, Daily, Disp# 12 mL, Pharmacy: [facility] [place] Start Date: 04/12/23 Stop Date: 05/12/23 Status: Ordered magnesium oxide 400 mg (241.3 mg elemental magnesium) oral tablet Start: 01/18/23 9:57:00 EDT, 1 tab, PO, qAM Start Date: 01/18/23 Status: Ordered Medrol Dosepak 4 mg oral tablet Start: 05/03/23 9:11:00 EST, See Instructions, Disp# 21 tab, Take as directed on package labeling for 6 days., Pharmacy: [id number] Start Date: 05/03/23 Stop Date: 05/09/23 Status: Ordered oxyCODONE 5 mg oral tablet Start: 05/03/23 9:24:00 EST, 2.5 mg =, PO, bid, Disp# 10 tab, Refills: 0, PRN: pain - severe (7-10), Pharmacy: [id number] Start Date: 05/03/23 Status: Ordered pantoprazole 40 mg oral delayed release tablet 1 tab, PO, Daily Start Date: 01/18/23 Status: Ordered spironolactone Start: 01/18/23 9:57:00 EDT, 25 mg =, PO, qAM Start Date: 01/18/23 Status: Ordered traZODone 50 mg oral tablet Start: 03/21/23 10:40:00 EST, 2 tab, PO, qhs Start Date: 03/21/23 Status: Ordered Tylenol 500 mg oral tablet Start: 04/12/23 11:37:00 EST, 2 tab, PO, bid Start Date: 04/12/23 Status: Ordered Ultram 50 mg oral tablet Start: 05/03/23 9:24:00 EST, 1 tab, PO, q8h, Disp# 10 tab, Refills: 0, prn moderate pain, Pharmacy:[id number] Start Date: 05/03/23 Status: Ordered Xifaxan 550 mg oral tablet Start: 01/18/23 9:57:00 EDT, 1 tab, PO, Daily Start Date: 01/18/23 Status: Ordered Problem List Diagnosis Diagnosis Type Effective Dates Health Status Clinical Service Informant Unspecified cirrhosis of liver Discharge Diagnosis 05/03/23 Presence of unspecified artificial hip joint Discharge Diagnosis 05/03/23 Aftercare following joint replacement surgery Discharge Diagnosis 05/03/23 Procedures Procedure Date Related Diagnosis Body Site Status Cholecystectomy 2015 Completed Bowel resection s/t obstruction 2013 Completed Appendectomy as teenager Completed Colonoscopy Completed Endoscopy Completed Results Laboratory List Name Date C Reactive Protein, Quantitation (CRP QU ANTITATION) 05/03/23 Complete Blood Count w Differential (CBC ,DIFFH) 05/03/23 Erythrocyte Sedimentation Rate (SEDIMENT ATION RATE) 05/03/23 Most recent to oldest [Reference Range]: 1 CReacProt [<0.50 mg/dL] <0.30 mg/dL (05/03/23 9:21 AM) MPV [9.0-12.2 fL] NOT AVAILABLE fL (05/03/23 9:21 AM) Immature Gran% 0.2 % (05/03/23 9:21 AM) Neut% 56.4 % (05/03/23 9:21 AM) Lymph% 22.8 % (05/03/23 9:21 AM) Concho% 11.6 % (05/03/23 9:21 AM) Baso% 0.8 % (05/03/23 9:21 AM) Eos% 8.2 % (05/03/23 9:21 AM) Immat Gran, Abs [0-0.4 K/uL] 0.01 K/uL (05/03/23 9:21 AM) Neut, Abs [2.0-7.7 K/uL] 2.66 K/uL (05/03/23 9:21 AM) Lymph, Abs [1.0-3.4 K/uL] 1.08 K/uL (05/03/23 9:21 AM) Concho, Abs [0-1.0 K/uL] 0.55 K/uL (05/03/23 9:21 AM) Baso, Abs [0-0.1 K/uL] 0.04 K/uL (05/03/23 9:21 AM) Eos, Abs [0-0.5 K/uL] 0.39 K/uL (05/03/23 9:21 AM) Type of Diff: AUTO *Unknown* (05/03/23 9:21 AM) RDW [11.5-14.2 %] 18.3 % *HI* (05/03/23 9:21 AM) ESR [0-25 mm/hr] 6 mm/hr (05/03/23 9:21 AM) Hct [39-48 %] 36.7 % *LOW* (05/03/23 9:21 AM) Hgb [13.0-17.0 g/dL] 11.9 g/dL *LOW* (05/03/23 9:21 AM) MCH [28-33 pg] 33.9 pg *HI* (05/03/23 9:21 AM) MCHC [32-36 g/dL] 32.4 g/dL (05/03/23 9:21 AM) MCV [81-96 fL] 104.6 fL *HI* (05/03/23 9:21 AM) Plts [150-350 K/uL] 47 K/uL *LOW* (05/03/23 9:21 AM) RBC [4.40-5.60 M/uL] 3.51 M/uL *LOW* (05/03/23 9:21 AM) WBC [4.0-10.4 K/uL] 4.73 K/uL (05/03/23 9:21 AM) Social History Social History Type Response Smoking Status Never smoked cigaret jocelin Sex Male Implantable Device List Procedure Provider Procedure Date Device Type Site Unknown Unknown 04/10/23 Unknown Unknown Device Identifier Serial Number Lot or Batch Number Manufacturing Date Expiration Date Distinct Identification Code MRI Safety Implantable Status Assigning Authority Unknown Unknown [id number] Unknown 12/31/32 Unknown Unknown Active Unk nown Unknown Unknown [id number] Unknown 09/30/32 Unknown Unknown Active Unknown Unknown Unknown [id number] Unknown 12/02/27 Unknown Unknown Active Unkn own Unknown Unknown [id number] Unknown 08/31/30 Unknown Unknown Active Unkn own Unknown Unknown [id number] Unknown 01/01/28 Unknown Unknown Active Unk nown Patient Care team information Care Team Personnel Name: MD Brandi, Toby Glasgow Position: Referring DIRECT Member Role: Primary Care Provider Address: Address: [address] [place] [id number] [place] Care Team Related Persons Name: MALCOM BURDEN Address: [address] [place] [id number]
--- OUTSIDE RECORDS SUMMARY | 2023-05-14 06:38 | External Medical Summary | Summary of Care ---
Author Name Unknown Organization [facility] Address [address] [place] [address] Phone [phone] Care Team Providers Care Mission Systems Engineer Name Role Phone Toby Paz MD Primary Care Provider +1- [phone] Reason for Visit * Reason Onset Date Comments Fax 05/11/2023 Encounter Details Date Type Department Care Team (Late st Contact Info) Description 05/11/2023 Telephone [facility] [address] [place] [address] Toby Paz MD [address] [place] [address] Fax Allergies Active Allergy Reactions Criticality Noted Date Comments Other Allergy (See Comments) Anaphylaxis High 06/21/2018 Bee stings- swelling documented as of this encounter (statuses as of 05/12/2023) Medications Medication Sig Dispensed Refills Start Date [...] 2 03/29/2023 Active Vitamin A & D [address] UNIT Oral Tablet Take by mouth. 0 [...] as needed for Pain, Moderate. 0 Active Triamcinolone Acetonide 0.1 % External Cream (Aristocort)Indicati ons:Psoriasiform eczema Apply topically to affected area 2 times a day. To affected area. 60 g 5 05/10/2023 Active Hospital, Clinic, or Other Facility Administered Medication Ordered Dose Route Frequency Start Date End Date Status albuterol sulfate (PROVENTIL) (2.5 MG/3ML) 0.083% inhalation solution 2.5 mgIndications:SOB (shortness of breath) 2.5 mg NEBULIZER Q4H PRN 05/10/2018 Act guzman documented as of this encounter (statuses as of 05/12/2023) Active Problems Problem Noted Date Diagnosed Date Avascular necrosis of bone of left hip Hypoproliferative anemia 05/10/2023 DDD (degenerative disc disease), lumbosacral 10/2023 Other intervertebral disc displacement, lumbosac ral region 05/10/2023 Major depressive disorder with single episode Age-related [...] ischemic heart disease 002 Overview: father had CO's in 40's Gastroesophageal reflux disease with esophagitis documented as of this encounter (statuses as of 05/12/2023) Resolved Problems Problem Noted Date Diagnosed Date Resolved Date Facial swelling 06/09/2017 08/07/2019 Urticaria 06/09/2017 08/07/2019 Intestinal obstruction 05/09/201203/02 CLASSICAL MIGRAINE WITHOU ME NTION OF INTRACTABLE MIGRAINE 11/29/2001 08/07/2019 Undiagnosed cardiac murmurs 11/29/2001 03/02/2017 Overview: Not [place] on 11/29/01 documented as of this encounter (statuses as of 05/12/2023) Immunizations Name Administration Dates Next Due HEP A - Hepatitis A (Adult > 18 yrs) 06/06/2020 Pneumococcal Conjugate Vacci ne, 20-valent ([id number]) 06/24/2022 Seasonal Influenza Virus Vac cine, Unspecified [...] encounter Miscellaneous Notes * Telephone Encounter - Eris Sharpe MD - 05/12/2023 9:05 AM EST Note written. Eris Sharpe MD * Telephone Encounter - Chelle Brewster LPN - 05/11/2023 3:56 PM EST Cream prescribed by Dr. Sharpe - will you provide letter regarding cream if rash is related to meds ornot? * Telephone Encounter - Arianne Baum OSA - 05/11/2023 2:08 PM EST Carmen calling back in and is requesting our NPI, tax ID, address, phone number, and fax number srinivasa faxed to [facility] as well * Telephone Encounter - Yu Myles OSA - 05/11/2023 1:54 PM EST Patient and sig other calling - HIPAA verified and ok to speak with Carmen - patient is requestingan explanation for patient using Aristocort be faxed to [facility] [place] FAX: [phone] Attn: Rosalia Santiago They will not refill patients medications until they know the rash being treated is not caused by the medications. documented in this encounter Plan of Treatment Upcoming Encounters Date Type Department Care Team (Late st Contact Info) Description 07/27/2023 9:30 AM EDT Procedure Only Endoscopy, [facility] [address] [place] [address] Trish Villatoro MD [address] [place] [address] 08/07/2023 3:00 PM EDT Office Visit Gastroenterology, [facility] [address] [place] [address] Keyanna Gordon CRNP [address] [place] [address] 11/21/2023 5:40 PM EDT Office Visit [facility] [address] [place] [phone] Toby Paz MD [address], [place] [phone] Scheduled Procedures Name Priority Associated Diagnoses Date/Ti me COLONOSCOPY FLEXIBLE PROXIMAL DIAGNOSTIC Recall History of colon polyps Health Maintenance Due Date Last Done Comments [...] Not on filedocumented as of this encounter Care Teams Mission Systems Engineer Relationship Specialty Start Date End Date Toby Paz MD [address] [place] [address] PCP - General Family Medicine 11/25/14 documented as of this encounter
--- OUTSIDE RECORDS SUMMARY | 2023-05-14 06:38 | External Medical Summary ---
Author Name Unknown Address Unknown Organization K0G:[facility] [address] [place] [address] Laboratory Report Ordering Provider Test Date Status TERESITA MORRISON 05/08/2023 08:21:00 Final Observation Date Value Abnormality Reference (Units ) Status WBC, Total 05/08/2023 08:21:00 3.80 Below low normal 4. 00-10.80 (K/uL) Final RBC 05/08/2023 08:21:00 3.19 4.50-5.25 (M/uL) Final Hemoglobin 05/08/2023 08:21:00 11.2 Below low normal 14 .0-16.8 (g/dL) Final HCT 05/08/2023 08:21:00 33.2 Below low normal 40. 0-48.4 (%) Final MCV 05/08/2023 08:21:00 104.1 82.0-99.5 (fL) Final MCH 05/08/2023 08:21:00 35.1 27.0-34.0 (pg) Final MCHC 05/08/2023 08:21:00 33.7 32.0-36.0 (g/dL) Final RDW 05/08/2023 08:21:00 16.5 11.5-15.5 (%) Final Platelets 05/08/2023 08:21:00 43 Below low normal 140 -400 (K/uL) Final Results rechecked.
null MPV 05/08/2023 08:21:00 13.8 6.6-11.1 ( fL) Final Performing Location [facility] [address] [place] [id number]
--- OUTSIDE RECORDS SUMMARY | 2023-05-14 06:38 | External Medical Summary | Continuity of Care Document ---
Author Name Unknown Organization [facility] [address] Address [facility] [place], [place] [id number] Care Team Providers Care Inspection And Testing Supervisor Name Role Phone Toby Paz Primary Care Physician [phone] [id number] Date(s): 05/03/23 - 05/03/23 [facility] [address] [facility] A, [address] [place] [address] [phone] Encounter Diagnosis Aftercare following left hip joint replacement surgery.(Discharge Diagnosis) - 05/03/23 Discharge Disposition: Home or Self Care Attending Physician: MD Santiago Nikkole M Allergies, Adverse Reactions, Alerts No Known Allergies Assessment and Plan Extracted from: Title:Clinical Document Author:MD Santiago Nikko le M Date:05/03/23 ORTHOPAEDICS OUTPATIENT NOTE Name: MARLEEN MELTON Patient Number: [id number] : 1965 Date of Service: 05/03/2023 Patient presents today after undergoing total hip arthroplasty. He is now about 3-1/2-week out from surgery. He continues to have significant left leg pain. He notes it is burning in nature. He notes some anterior aspect of his thigh and he is having difficulty putting weight on the leg. He notes it has been worse since his nerve block has been out. He also notes it feels numb in that area on the anterior aspect of his leg. He has not been taking his Lovenox as his last platelets were less than 50,000. He notes he has been taking Advil despite knowing that he is at risk for bleeding with this. Physical exam 57-year-old male seated in a wheelchair. Able to stand with assistance putting minimal weight on the left leg. On exam of the left hip incision is healed well without any evidence of infection. He has pain with any motion of the left hip and has tenderness to palpation to his femur. He endorses numbness on his anterior thigh. He has intact sensation distally in his foot positive EHL FHL tibialis anterior gastrosoleus motor function. He is able to fire his quad and produce some knee extension although this is weak. He endorses pain during this. 2 views of the patient's left femur as well as 1 AP of his pelvis was ordered these were independently interpreted. These demonstrate a well appearing well aligned left total hip arthroplasty without evidence of fracture or other complication. Imression 57-year-old male status post left total hip arthroplasty with severe left thigh pain after total hip. Unclear etiology at this point. Potentially could be related to nerve impingement as he also endorses having back pain. At this point time I would like the patient to try a Medrol Dosepak. I will also have a prescription sent for tramadol and oxycodone. We had a discussion about limiting these medications because of the risks of them especially given his liver disease. I would like to wean off of this. If he is not able to do this next week then we will plan to look for additional causes via an MRI of his lower spine or referral to pain management. I have ordered an ESR and CRP as well as a CBC to evaluate for any evidence of infection although clinically I concern is very low. Medications atorvastatin 20 mg oral tablet 1 tab, PO, Daily Start Date: 01/18/23 Status: Ordered cholecalciferol 1250 mcg (50,000 intl units) oral capsule Start: 03/28/23 10:45:00 EST, See Instructions, Disp# 16 cap, 1 cap PO twice a week x 8 weeks, Pharmacy: [id number] Start Date: 03/28/23 Status: Ordered Duricef 500 mg oral capsule Start: 04/12/23 11:38:00 EST, 1 cap, PO, q12h, Disp# 14 cap, Pharmacy: [facility] [place] Start Date: 04/12/23 Stop Date: 04/19/23 Status: [...] mL, subQ, Daily, Disp# 12 mL, Pharmacy: [facility] [place] Start Date: 04/12/23 Stop Date: 05/12/23 Status: Ordered magnesium oxide 400 mg (241.3 mg elemental magnesium) oral tablet Start: 01/18/23 9:57:00 EDT, 1 tab, PO, qAM Start Date: 01/18/23 Status: Ordered Medrol Dosepak 4 mg oral tablet Start: 05/03/23 9:11:00 EST, See Instructions, Disp# 21 tab, Take as directed on package labeling for 6 days., Pharmacy: [id number] Start Date: 05/03/23 Stop Date: 05/09/23 Status: Ordered oxyCODONE 5 mg oral tablet Start: 05/03/23 9:24:00 EST, 2.5 mg =, PO, bid, Disp# 10 tab, Refills: 0, PRN: pain - severe (7-10), Pharmacy: [id number] Start Date: 05/03/23 Status: Ordered [...] 10 tab, Refills: 0, prn moderate pain, Pharmacy:[id number] Start Date: 05/03/23 Status: Ordered Xifaxan 550 mg oral tablet Start: 01/18/23 9:57:00 EDT, 1 tab, PO, Daily Start Date: 01/18/23 Status: Ordered Mental Status 05/03/23 Barriers to Learning one year None evide nt Mandatory Health Literacy Documentation Yes Health Literacy Communication Barriers N ever Primary Language Kazakh Problem List Diagnosis Diagnosis Type Effective Dates Health Status Clinical Service Informant Aftercare following left hip joint replacement surgery. Discharge Diagnosis 05/03/23 Non-Specified Procedures Procedure Date Related Diagnosis Body Site Status Cholecystectomy 2015 Completed Bowel resection s/t obstruction 2013 Completed Appendectomy as teenager Completed Colonoscopy Completed Endoscopy Completed Results Radiology Reports * Exam Date Time Procedure Performing Provider Status 05/03/23 8:50 AM XR Pelvis 1 or 2 Views Liliana Tellez R; Final Notes: (XR Pelvis 1 or 2 Views) Reason For Exam: eval hip replacement XR Pelvis 1 or 2 Views EXAMINATION: XR Pelvis 1 or 2 Views, XR Femur 2 Views Left CLINICAL HISTORY: Z47.1: Aftercare following joint replacement surgery; LOW pelvis supine eval hip replacement COMPARISON: Pelvis radiograph 2023. There are no comparison femur radiographs. FINDINGS: Supine AP pelvis centered low. Left hip arthroplasty without change in position or complication. Resolution of postoperative air from the surrounding soft tissues. Left femur: 2 views. Arthroplasty without complication. Mid and distal femur are normal. Normal joint space alignment at the knee. No joint effusion. IMPRESSION: No complication of new left hip arthroplasty. Workstation ID: [id number] Final Dictated by:MD Evans Pamela L Dictated DT/TM:05/03/2023 9:05 Signed by:MD Evans Pamela L Signed (Electronic Signature):05/03/2023 9:04 a * Exam Date Time Procedure Performing Provider Status 05/03/23 8:50 AM XR Femur 2 Views Left Allegra Tellez R; Final Notes: (XR Femur 2 Views Left) Reason For Exam: eval fracture XR Femur 2 Views Left EXAMINATION: XR Pelvis 1 or 2 Views, XR Femur 2 Views Left CLINICAL HISTORY: Z47.1: Aftercare following joint replacement surgery; LOW pelvis supine eval hip replacement COMPARISON: Pelvis radiograph 2023. There are no comparison femur radiographs. FINDINGS: Supine AP pelvis centered low. Left hip arthroplasty without change in position or complication. Resolution of postoperative air from the surrounding soft tissues. Left femur: 2 views. Arthroplasty without complication. Mid and distal femur are normal. Normal joint space alignment at the knee. No joint effusion. IMPRESSION: No complication of new left hip arthroplasty. Workstation ID: [id number] Final Dictated by:MD Evans Pamela L Dictated DT/TM:05/03/2023 9:05 Signed by:MD Evans Pamela L Signed (Electronic Signature):05/03/2023 9:04 a Social History Social History Type Response Smoking Status Never smoked cigaret jocelin Sex Male Implantable Device List Procedure Provider Procedure Date Device Type Site Unknown Unknown 04/10/23 Unknown Unknown Device Identifier Serial Number Lot or Batch Number Manufacturing Date Expiration Date Distinct Identification Code MRI Safety Implantable Status Assigning Authority Unknown Unknown [id number] Unknown 12/31/32 Unknown Unknown Active Unk nown Unknown Unknown [id number] Unknown 09/30/32 Unknown Unknown Active Unknown Unknown Unknown [id number] Unknown 12/02/27 Unknown Unknown Active Unkn own Unknown Unknown [id number] Unknown 08/31/30 Unknown Unknown Active Unkn own Unknown Unknown [id number] Unknown 01/01/28 Unknown Unknown Active Unk nown Ortho Outpt Note * MD Pamela, Jamie Merritt: PERFORM, MODIFY, MODIFY Event Display: Ortho Outpt Note Authored Date: [id number] ORTHOPAEDICS OUTPATIENT NOTE Name: MARLEEN MELTON Patient Number: [id number] : 1965 Date of Service: 05/03/2023 Patient presents today after undergoing total hip arthroplasty. He is now about 3-1/2-week out fromsurgery. He continues to have significant left leg pain. He notes it is burning in nature. He notessome anterior aspect of his thigh and he is having difficulty putting weight on the leg. He notes it has been worse since his nerve block has been out. He also notes it feels numb in that area on the anterior aspect of his leg. He has not been taking his Lovenox as his last platelets were less than50,000. He notes he has been taking Advil despite knowing that he is at risk for bleeding with this. Physical exam 57-year-old male seated in a wheelchair. Able to stand with assistance putting minimal weight on the left leg. On exam of the left hip incision is healed well without any evidence of infection. He has pain with any motion of the left hip and has tenderness to palpation to his femur. He endorses numbness on his anterior thigh. He has intact sensation distally in his foot positive EHLFHL tibialis anterior gastrosoleus motor function. He is able to fire his quad and produce some knee extension although this is weak. He endorses pain during this. 2 views of the patient's left femur as well as 1 AP of his pelvis was ordered these were independently interpreted. These demonstrate a well appearing well aligned left total hip arthroplasty withoutevidence of fracture or other complication. Imression 57-year-old male status post left total hip arthroplasty with severe left thigh pain after total hip. Unclear etiology at this point. Potentially could be related to nerve impingement as healso endorses having back pain. At this point time I would like the patient to try a Medrol Dosepak. I will also have a prescription sent for tramadol and oxycodone. We had a discussion about limiting these medications because of the risks of them especially given his liver disease. I would like to wean off of this. If he is not able to do this next week then we will plan to look for additional causes via an MRI of his lower spine or referral to pain management. I have ordered an ESR and CRP as well as a CBC to evaluate for any evidence of infection although clinically I concern is very low. Electronic Signature on File Electronically Reviewed/Signed by: Jamie Santiago MD Author Signature Dt/Tm:05/03/2023 09:21 AM Division of Orthopaedics [facility] Patient Care team information Care Team Personnel Name: MD Paz Brett R Position: Referring DIRECT Member Role: Primary Care Provider Address: Address: [address] [place] [id number] Care Team Related Persons Name: MALCOM BURDEN Milka Address: home [address] [place] [address] [place] [phone]
--- OUTSIDE RECORDS SUMMARY | 2023-05-14 06:38 | External Medical Summary ---
Author Name Unknown Address Unknown Organization K0G:[facility] [address] [place] [address] Laboratory Report Ordering Provider Test Date Status TERESITA MORRISON 04/27/2023 09:10:00 Final Observation Date Value Abnormality Reference (Units ) Status Nucleated erythrocytes/100 leukocytes [Ratio] in Blood by Automated count 04/27/2023 09:10:00 Final Performing Location [facility] [address] [place] [id number]
--- OUTSIDE RECORDS SUMMARY | 2023-05-14 06:38 | External Medical Summary ---
Author Name Unknown Address Unknown Organization [facility] [address] [place] [address] Laboratory Report Ordering Provider Test Date Status TERESITA MORRISON 05/01/2023 08:35:00 Final Observation Date Value Abnormality Reference (Units ) Status SYNC LEUKOCYTES IN BLOOD BY AUTOMATED COUNT 05/01/2023 08:35:00 3.72 Below low normal 4.00-10.80 (K/uL) Final Segs 05/01/2023 08:35:00 46.9 40.0-75.0 (%) Final Lymphs % 05/01/2023 08:35:00 28.2 18.0-42.0 (%) Final Monos 05/01/2023 08:35:00 14.5 Above high normal 1.0-11.0 (%) Final Eosinophils 05/01/2023 08:35:00 9.9 Above high normal 0.0-6.0 (%) Final Basos 05/01/2023 08:35:00 0.5 0.0-2.0 (%) Final Absolute Segs 05/01/2023 08:35:00 1.74 Below low normal 1.80-7.70 (K/uL) Final Lymphs, absolute 05/01/2023 08:35:00 1.05 1.00-4.80 (K/ul) Final Monos, Abs 05/01/2023 08:35:00 0.54 0.00-1.10 (K/uL) Final Eos, Abs 05/01/2023 08:35:00 0.37 0.00-0.70 (K/uL) Final Basos, Abs 05/01/2023 08:35:00 0.02 0.00-0.20 (K/uL) Final Performing Location [facility] [address] [place] [id number]
--- OUTSIDE RECORDS SUMMARY | 2023-05-14 06:38 | External Medical Summary ---
Author Name Unknown Address Unknown Organization K0G:[facility] [address] [place] [address] Laboratory Report Ordering Provider Test Date Status TERESITA MORRISON 04/27/2023 09:10:00 Final Observation Date Value Abnormality Reference (Units ) Status SYNC LEUKOCYTES IN BLOOD BY AUTOMATED COUNT 04/27/2023 09:10:00 4.86 4.00-10.80 (K/uL) Final Segs 04/27/2023 09:10:00 42.0 40.0-75.0 (%) Final Lymphs % 04/27/2023 09:10:00 34.0 18.0-42.0 (%) Final Monos 04/27/2023 09:10:00 11.3 Above high normal 1.0-11.0 (%) Final Eosinophils 04/27/2023 09:10:00 11.9 Above high normal 0.0-6.0 (%) Final Basos 04/27/2023 09:10:00 0.8 0.0-2.0 (%) Final Absolute Segs 04/27/2023 09:10:00 2.04 1.80-7.70 (K/uL) Final Lymphs, absolute 04/27/2023 09:10:00 1.65 1.00-4.80 (K/ul) Final Monos, Abs 04/27/2023 09:10:00 0.55 0.00-1.10 (K/uL) Final Eos, Abs 04/27/2023 09:10:00 0.58 0.00-0.70 (K/uL) Final Basos, Abs 04/27/2023 09:10:00 0.04 0.00-0.20 (K/uL) Final Performing Location LAB[facility]ORY [facility] [address] [place] [id number]
--- OUTSIDE RECORDS SUMMARY | 2023-05-14 06:38 | External Medical Summary | Summary of Care ---
Author Name Unknown Organization [facility] Address [address] [place] [address] Phone [phone] Care Team Providers Care Valve Inserter Name Role Phone Toby Paz MD Primary Care Provider +1- [phone] Reason for Visit * Reason Onset Date Comments Fax 05/11/2023 Encounter Details Date Type Department Care Team (Late st Contact Info) Description 05/11/2023 Telephone [facility] [address] [place] [address] Toby Paz MD [address] [place] [address] Fax Allergies Active Allergy Reactions [...] 2 03/29/2023 Active Vitamin A & D [address] UNIT Oral Tablet Take by mouth. 0 [...] ischemic heart disease 002 Overview: father had AK's in 40's Gastroesophageal reflux disease with esophagitis documented as of this encounter (statuses as of 05/12/2023) Resolved Problems Problem Noted Date Diagnosed Date Resolved Date Facial swelling 06/09/2017 08/07/2019 Urticaria 06/09/2017 08/07/2019 Intestinal obstruction 05/09/201203/02 CLASSICAL MIGRAINE WITHOU ME NTION OF INTRACTABLE MIGRAINE 11/29/2001 08/07/2019 Undiagnosed cardiac murmurs 11/29/2001 03/02/2017 Overview: Not [place] on 11/29/01 documented as of this encounter (statuses as of 05/12/2023) Immunizations Name Administration Dates Next Due HEP A - Hepatitis A (Adult > 18 yrs) 06/06/2020 Pneumococcal Conjugate Vacci ne, 20-valent ([id number]) 06/24/2022 Seasonal Influenza Virus Vac cine, Unspecified [...] encounter Miscellaneous Notes * Telephone Encounter - Micaela Cherry LPN - 05/12/2023 10:00 AM EST Note faxed * Telephone Encounter - Eris Sharpe MD [...] number srinivasa faxed to [facility] as well * Telephone Encounter - Yu Myles OSA - 05/11/2023 1:54 PM EST Patient and sig other calling - HIPAA verified and ok to speak with Carmen - patient is requestingan explanation for patient using Aristocort be faxed to [facility] [place] FAX: [phone] Attn: Rosalia Santiago They will not refill patients medications until they know the rash being treated is not caused by the medications. documented in this encounter Plan of Treatment Upcoming Encounters Date Type Department Care Team (Late st Contact Info) Description 07/27/2023 9:30 AM EDT Procedure Only Endoscopy, [facility] [address] [place] [address] Trish Villatoro MD [address] [place] [address] 08/07/2023 3:00 PM EDT Office Visit Gastroenterology, [facility] [address] [place] [address] Keyanna Gordon CRNP [address] [place] [address] 11/21/2023 5:40 PM EDT Office Visit [facility] [address] [place] [phone] Toby Paz MD [address] [place], [place] [phone] Scheduled Procedures Name Priority Associated Diagnoses Date/Ti [...] filedocumented as of this encounter Care Teams Valve Inserter Relationship Specialty Start Date End Date Toby Paz MD [address] [place] [address] PCP - General Family Medicine 11/25/14 documented as of this encounter
--- OUTSIDE RECORDS SUMMARY | 2023-05-14 06:38 | External Medical Summary ---
Author Name Unknown Address Unknown Organization K0G:LABORATORY [facility] [address] [place] [address] Laboratory Report Ordering Provider Test Date Status TERESITA MORRISON 05/08/2023 08:21:00 Final Observation Date Value Abnormality Reference (Units ) Status SYNC LEUKOCYTES IN BLOOD BY AUTOMATED COUNT 05/08/2023 08:21:00 3.80 Below low normal 4.00-10.80 (K/uL) Final Segs 05/08/2023 08:21:00 47.3 40.0-75.0 (%) Final Lymphs % 05/08/2023 08:21:00 27.4 18.0-42.0 (%) Final Monos 05/08/2023 08:21:00 13.4 Above high normal 1.0-11.0 (%) Final Eosinophils 05/08/2023 08:21:00 11.6 Above high normal 0.0-6.0 (%) Final Basos 05/08/2023 08:21:00 0.3 0.0-2.0 (%) Final Absolute Segs 05/08/2023 08:21:00 1.80 1.80-7.70 (K/uL) Final Lymphs, absolute 05/08/2023 08:21:00 1.04 1.00-4.80 (K/ul) Final Monos, Abs 05/08/2023 08:21:00 0.51 0.00-1.10 (K/uL) Final Eos, Abs 05/08/2023 08:21:00 0.44 0.00-0.70 (K/uL) Final Basos, Abs 05/08/2023 08:21:00 0.01 0.00-0.20 (K/uL) Final Performing Location [facility] [address] [place] [address]
--- OUTSIDE RECORDS SUMMARY | 2023-05-14 06:38 | External Medical Summary ---
Author Name Unknown Address Unknown Organization [facility] [address] [place] [id number] Laboratory Report Ordering Provider Test Date Status TAMIKOTERESITA 05/01/2023 08:35:00 Final Observation Date Value Abnormality Reference (Units ) Status Nucleated erythrocytes/100 leukocytes [Ratio] in Blood by Automated count 05/01/2023 08:35:00 Final Performing Location [facility] [address] [place] [id number]
--- OUTSIDE RECORDS SUMMARY | 2023-05-14 06:38 | External Medical Summary | Summary of Care ---
Author Name Unknown Organization [facility] Address [address] [facility] [place] [address] Phone [phone] Care Team Providers Care Shipping Clerk/Admin Name Role Phone Toby Paz MD Primary Care Provider [phone]- [phone] Reason for Visit * Reason Comments pre-op exam Pre Op Clearance for 05/24/23 cataract surgery. Rash on back Encounter Details Date Type Department Care Team (Latest Contact Info) Description 05/10/2023 6:20 PM EST Office Visit [facility] [address] [place] [address] AugustEris MD [address] [place] [address] Age-related nuclear cataract, bilateral*; Psoriasiform eczema; Avascular necrosis of bone of left hip (HCC); Hypoproliferative anemia (HCC); Old myocardial infarction; DDD (degenerative disc disease), lumbosacral; Other intervertebral disc displacement, lumbosacral region; HTN, goal below 130/80; Major depressive disorder with single episode, remission status unspecified; Alcohol dependence, uncomplicated (HCC); Dyslipidemia; Thrombocytopenia (HCC) Allergies Active Allergy Reactions Criticality Noted Date [...] 2 03/29/2023 Active Vitamin A & D [address] UNIT Oral Tablet Take by mouth. 0 [...] ischemic heart disease 002 Overview: father had SD's in 40's Gastroesophageal reflux disease with esophagitis documented as of this encounter (statuses as of 05/12/2023) Resolved Problems Problem Noted Date Diagnosed Date Resolved Date Facial swelling 06/09/2017 08/07/2019 Urticaria 06/09/2017 08/07/2019 Intestinal obstruction 05/09/201203/02 CLASSICAL MIGRAINE WITHOU ME NTION OF INTRACTABLE MIGRAINE 11/29/2001 08/07/2019 Undiagnosed cardiac murmurs 11/29/2001 03/02/2017 Overview: Not [place] on 11/29/01 documented as of this encounter (statuses as of 05/12/2023) Immunizations Name Administration Dates Next Due HEP A - Hepatitis A (Adult > 18 yrs) 06/06/2020 Pneumococcal Conjugate Vacci ne, 20-valent ([id number]) 06/24/2022 Seasonal Influenza Virus Vac cine, Unspecified [...] Passive Smoke Exposure: Never Smokeless Tobacco: Never Tobacco Cessation:Counseling Given: Not Answered Comments:fiance smokes Alcohol Use Standard Drinks/Week Comments [...] on file documented as of this encounter Last Filed Vital Signs Vital Sign Reading Time Taken Comments Blood Pressure 116/62 05/10/2023 5:59 PM EST Pulse 73 05/10/2023 5:59 PM EST Temperature 36.9 C (98.4 F) 05/10/2023 5:59 PM ES T Respiratory Rate 16 05/10/2023 5:59 PM EST Oxygen Saturation 97% 05/10/2023 5:59 PM EST Inhaled Oxygen Concentration - - Weight 84 kg (185 lb 3.2 oz) 05/10/2023 5:59 PM EST Height 175.3 cm (5' 9") 05/10/2023 5:59 PM EST Body Mass Index 27.35 05/10/2023 5:59 PM EST documented in this encounter Functional Status Functional Status Response Date of Assess ment Does this person have seriou s difficulty walking or climbing stairs? Yes 08/23/2021 documented as of this encounter Progress Notes * Eris Sharpe MD - 05/10/2023 6:12 PM EST Images from the original note were not included. Assessment and Plan The patient is a 57 year old male with extensive past medical history who presents for pre op evaluation prior to cataract surgery scheduled on 05/24/2023 and 06/07/2023 at [facility]. Reviewed past medical history, medications. Does have thrombocytopenia with platelets of 43. This is a relative contraindication to surgery. Given this, we will reach out to [facility] to see if they recommend any further evaluation by hematology/oncology prior to surgery. Otherwise, his risk factors are appropriately controlled and he is appropriate to proceed as scheduled. No salmon es to medications. 1. Age-related nuclear cataract, bilateral 2. Psoriasiform eczema - Triamcinolone Acetonide 0.1 % External Cream (Aristocort); Apply topically to affected area 2 times a day. To affected area. Dispense: 60 g; Refill: 5 3. Avascular necrosis of bone of left hip (HCC) 4. Hypoproliferative anemia (HCC) 5. Old myocardial infarction 6. DDD (degenerative disc disease), lumbosacral 7. Other intervertebral disc displacement, lumbosacral region 8. HTN, goal below 130/80 9. Major depressive disorder with single episode, remission status unspecified 10. Alcohol dependence, uncomplicated (HCC) 11. Dyslipidemia 12. Thrombocytopenia (HCC) Wrap-Up Follow up as needed. History of Present Illness The patient is a 57 year old male with past medical history of dyslipidemia, HTN, AAA, cirrhosis, GERD, AVN of hip, thrombocytopenia, history of SBO, depression who presents for pre op evaluation prior to cataract surgery scheduled on 05/24/2023 and 06/07/2023 at [facility]. Patient with difficulty with vision especially at night 2/2 cataracts. Reviewed past medical history which includes recent hip replacement on 04/10/2023 secondary to avascular necrosis of the head of the femur., history of SD, dyslipidemia on atorvastatin, GERD on pantoprazole, hypertension under good control with blood pressure 116/62 today, history of alcohol use, depression on fluoxetine. Reviewed most recent lab work from 05/08/2023 which showed improving hemoglobin at 11.2 following anemia secondary to recent surgery. He is also noted to have thrombocytopeniawith PLT of 43. This is about his baseline. Past Medical History: Diagnosis Date Abdominal pain Alcoholic cirrhosis (HCC) 2020 Cirrhosis of liver with ascites (HCC) 2021 Esophageal varices in cirrhosis (HCC) 2021 GERD (gastroesophageal reflux disease) HTN, goal below 130/80 08/07/2019 Intestinal obstruction (HCC) 05/09/2012 Iron deficiency anemia Migraine with aura 1977 Undiagnosed cardiac murmurs since Past Surgical History: Procedure Laterality Date COLONOSCOPY, DIAGNOSTIC (RECTUM) 04/10/2015 adenomatous polyps, repeat 3 yrs/COLONOSCOPY FLEXIBLE PROXIMAL DIAGNOSTIC performed by Lopez Shi MD at [facility] COLONOSCOPY, DIAGNOSTIC (RECTUM) 05/18/2018 adenomatous polyps, diverticulosis, repeat 1yr/COLONOSCOPY FLEXIBLE PROXIMAL DIAGNOSTIC performed by Lopez Shi MD at [facility] COLONOSCOPY, DIAGNOSTIC (RECTUM) 05/30/2019 adenomatous polyps, diverticulosis, repeat 3 yrs / COLONOSCOPY FLEXIBLE PROXIMAL DIAGNOSTIC performed by Lopez Shi MD at [facility] COLONOSCOPY, DIAGNOSTIC (RECTUM) 06/30/2021 1-4mm in rectum, otherwise normal / biopsies normal / 5 year recall / COLONOSCOPY FLEXIBLE PROXIMALDIAGNOSTIC performed by Jena Camargo MD at [facility] EGD, FLEXIBLE, DIAGNOSTIC 05/05/2014 normal bx/ESOPHAGOGASTRODUODENOSCOPY (EGD), FLEXIBLE, TRANSORAL, DIAGNOSTIC performed by Ki Huang MD at [facility] EGD, FLEXIBLE, DIAGNOSTIC 04/11/2016 Schatzki ring, hiatal hernia, gastritis/ESOPHAGOGASTRODUODENOSCOPY (EGD), FLEXIBLE, TRANSORAL, DIAGNOSTIC performed by Ki Huang MD at [facility] EGD, FLEXIBLE, DIAGNOSTIC 01/24/2018 w/ [facility] EGD, FLEXIBLE, DIAGNOSTIC 07/17/2018 normal biopsies/ESOPHAGOGASTRODUODENOSCOPY (EGD), FLEXIBLE, TRANSORAL, DIAGNOSTIC performed by Lopez Shi MD at [facility] EGD, FLEXIBLE, DIAGNOSTIC 07/07/2020 sm hiatal hernia / ESOPHAGOGASTRODUODENOSCOPY (EGD), FLEXIBLE, TRANSORAL, DIAGNOSTIC performed by Lopez Shi MD at [facility] EGD, FLEXIBLE, DIAGNOSTIC 09/03/2021 esophageal varices, repeat 1 yr / ESOPHAGOGASTRODUODENOSCOPY (EGD), FLEXIBLE, TRANSORAL, DIAGNOSTICperformed by Alen Garcia DO at [facility] EGD, FLEXIBLE, DIAGNOSTIC 07/06/2022 Portal hypertensive gastropathy, eso varices, mild-mod inflammation on bx / ESOPHAGOGASTRODUODENOSCOPY (EGD), FLEXIBLE, TRANSORAL, DIAGNOSTIC performed by Lopez Shi MD at [facility] EGD, W/ENDOSCOPIC US 06/26/2018 retained food, repeat study/ESOPHAGOGASTRODUODENOSCOPY (EGD), FLEXIBLE, TRANSORAL, ENDOSCOPIC ULTRASOUND performed by Lopez Shi MD at [facility] EGD, W/ENDOSCOPIC US 07/17/2018 sludge gallbladder/ESOPHAGOGASTRODUODENOSCOPY (EGD), FLEXIBLE, TRANSORAL, ENDOSCOPIC ULTRASOUND performed by Lopez Shi MD at [facility] IR BIOPSY 02/14/2022 LAPAROSCOPY; CHOLECYSTECTOMY REDUCTION OF 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 04/26/2012 Exploratory laparotomy with extensive lysis of adhesions and repair of small bowel serosal REMOVAL OF RUPTURED APPENDIX 1977 Appendectomy, Rupt Appendx+Abscess Family History Problem Relation Age of Onset Neurological Disorder Mother Parkisons Heart Disorder Father SD in 40's Stroke Father Heart failure Father Dementia Father No Known Problems Brother Social History Socioeconomic History Marital status: Single Spouse name: Not on file Number of children: Not on file Years of education: Not on file Highest education level: Not on file Occupational History Not on file Tobacco Use Smoking status: Former Packs/day: 0.10 Years: 20.00 Additional pack years: 0.00 Total pack years: 2.00 Types: Cigarettes Quit date: 05/10/2015 Years since quittin.0 Passive exposure: Never Smokeless tobacco: Never Tobacco comments: fiance smokes Vaping Use Vaping Use: Never used Substance and Sexual Activity Alcohol use: Not Currently Comment: 12 pack on the weekends, No ETOH since December 2021 Drug use: No Comment: no caffeine Sexual activity: Never Partners: Female Other Topics Concern Not on file 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 no regular exercise single no children dog- dalmation- [employer] Social Determinants of Health Financial Resource Strain: Not on file Food Insecurity: No Food Insecurity (04/17/2023) Hunger Vital Sign Worried About Running Out of Food in the Last Year: Never true Ran Out of Food in the Last Year: Never true Transportation Needs: Not on file Physical Activity: Not on file Stress: Not on file Social Connections: Not on file Intimate Partner Violence: Not on file Housing Stability: Not on file Review of patient's allergies indicates: Allergen Reactions Other Allergy (See Comments) Anaphylaxis Bee stings- swelling Physical Exam Vitals: 05/10/23 1759 Temp: 36.9 C (98.4 F) Pulse: 73 Resp: 16 SpO2: 97% BP: 116/62 BMI: 27.34 Physical Exam Physical Exam Vitals reviewed. Constitutional: General: He is not in acute distress. Cardiovascular: Rate and Rhythm: Normal rate and regular rhythm. Heart sounds: No murmur heard. Pulmonary: Effort: Pulmonary effort is normal. No respiratory distress. Breath sounds: Normal breath sounds. No wheezing. Skin: Comments: Hyperkeratotic and hyperpigmented patches on the back. Neurological: Mental Status: He is alert. This note has been completed in part utilizing [employer] Voice Recognition Software. Due to technical limitations of the software, grammatical errors, random word insertions, prounoun errors, and incomplete sentences may occur. Any formal questions or concerns about the content, text, or information contained within the body of this dictation should be directly addressed to the provider for clarification. documented in this encounter Nursing Notes * Ana Dan CCMA - 05/10/2023 5:59 PM EST Mauro Liu is a 57 year old male who presents today for Chief Complaint Patient presents with pre-op exam Pre Op Clearance for 05/24/23 cataract surgery. Rash on back documented in this encounter Plan of Treatment Upcoming Encounters Date Type Department Care Team (Late st Contact Info) Description 07/27/2023 9:30 AM EDT Procedure Only Endoscopy, [facility] [address] [place] [id number] Trish Villatoro MD [address] [place] [address] 08/07/2023 3:00 PM EDT Office Visit Gastroenterology, [facility] [address] [place] [address] Keyanna Gordon CRNP [address] [place] [address] 11/21/2023 5:40 PM EDT Office Visit [facility] [address] [place] [id number] Toby Paz MD [address] [place] [address] Scheduled Procedures Name Priority Associated Diagnoses Date/Ti [...] as of this encounter Visit Diagnoses Diagnosis Age-related nuclear cataract, bilateral- Primary Senile nuclear sclerosis Psoriasiform eczema Other psoriasis and similar disorders Avascular necrosis of bone of left hip (HCC) Hypoproliferative anemia (HCC) Aplastic anemia, unspecified Old myocardial infarction DDD (degenerative disc disease), lumbosacral Degeneration of lumbar or lumbosacral intervertebral disc Other intervertebral disc displacement, lumbosacral region HTN, goal below 130/80 Unspecified essential hypertension Major depressive disorder with single episode, remission status unspecified Alcohol dependence, uncomplicated (HCC) Dyslipidemia Other and unspecified hyperlipidemia Thrombocytopenia (HCC) Thrombocytopenia, unspecified documented in this encounter Care Teams Shipping Clerk/Admin Relationship Specialty Start Date End Date Toby Paz MD [address] [place] [address] PCP - General Family Medicine 11/25/14 documented as of this encounter
--- OUTSIDE RECORDS SUMMARY | 2023-05-14 06:38 | External Medical Summary ---
Author Name Unknown Address Unknown Organization [facility] [address] [place] [id number] Laboratory Report Ordering Provider Test Date Status TERESITA MORRISON 05/08/2023 08:21:00 Final Observation Date Value Abnormality Reference (Units ) Status Nucleated erythrocytes/100 leukocytes [Ratio] in Blood by Automated count 05/08/2023 08:21:00 Final Performing Location [facility] [address] [place] [id number]
--- OUTSIDE RECORDS SUMMARY | 2023-05-14 06:39 | External Medical Summary | Summary of Care ---
Author Name Unknown Organization [facility] Address [address] [address] Phone [phone] Care Team Providers Care Study Abroad Coordinator Name Role Phone Toby Yarbrough MD Primary Care Provider [phone]- [phone] Reason for Visit * Reason Comments Follow Up Alcoholic cirrhosis, Encounter Details Date Type Department Care Team (Late st Contact Info) Description 03/31/2023 9:30 AM EST Office Visit Gastroenterology, [facility] [address] [place] [address] Keyanna Gordon CRNP [address] [place] [address] Alcoholic cirrhosis of liver with ascites (HCC)* Allergies Active Allergy Reactions Criticality Noted Date Comments Other Allergy (See Comments) Anaphylaxis High 06/21/2018 Bee stings- swelling documented as of this encounter (statuses as of 04/01/2023) Medications Medication Sig Dispensed Refills Start Date End Date Status EpiPen 2-Dave 0.3 MG/0.3ML Injection Solution Auto-injector For a severe reaction: Place orange end against the outer thigh, press firmly, hold in place for 10 seconds and go to the Emergency room. 2 Each 1 07/20/2020 Active Iron (Ferrous Sulfate) 325 (65 Fe) MG Oral Tablet Take by mouth. 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 30 Capsule 0 03/01/2023 Active Additional Information Patient not taking.Reported on 03/31/2023 oxyCODONE HCl 5 MG Oral Tablet (Oxy IR)Indications:Hip pain, left,Avascular necrosis of bone of hip, unspecified laterality (HCC) Take 1 Tablet by mouth every 12 hours as needed for Pain, Severe. 30 Tablet 0 03/20/2023 Active Atorvastatin Calcium 20 MG Oral Tablet (Lipitor)Indication s:Dyslipidemia Take 1 Tablet by mouth in the [...] 03/29/2023 Active Lactulose 10 GM/15ML Oral Solution (Constulose)Indicat ions:Hyperammonemia (HCC) Take 30 mL by mouth in the morning and 30 mL at noon and 30 mL in the evening and 30 mL before bedtime. 946 mL 5 03/29/2023 Active Gabapentin 100 MG Oral Capsule (Neurontin)Indicati ons:Complaint of paresthesia take 1 capsule by mouth every morning and AT NOON and BEFORE BEDTIME 90 Capsule 5 03/29/2023 Active Magnesium Oxide -Mg Supplement 400 (240 Mg) MG Oral Tablet (Mag-Ox) take 1 tablet by mouth IN THE MORNING AND BEFORE BEDTIME 180 Tablet 1 03/29/2023 Active Pantoprazole Sodium 40 MG Oral Tablet Delayed Release (Protonix)Indicatio ns:Gastroesophageal reflux disease Take 1 Tablet by mouth in the morning and 1 Tablet before bedtime. 180 Tablet 1 03/29/2023 Active Spironolactone 25 MG Oral Tablet (Aldactone) Take 1 Tablet by mouth in the morning. 90 Tablet 0 03/29/2023 Active traZODone HCl 50 MG Oral Tablet (Desyrel)Indication s:Primary insomnia Take 2 Tablets by mouth at bedtime. 180 Tablet 1 03/29/2023 Active rifAXIMin 550 MG Oral Tablet (Xifaxan) take 1 tablet by mouth IN THE MORNING then take 1 tablet by mouth BEFORE BEDTIME 60 Tablet 2 03/29/2023 Active Vitamin A & D [address] UNIT Oral Tablet Take by mouth. 0 Active Hospital, Clinic, or Other Facility Administered Medication Ordered Dose Route Frequency Start Date End Date Status albuterol sulfate (PROVENTIL) (2.5 MG/3ML) 0.083% inhalation solution 2.5 mgIndications:SOB (shortness of breath) 2.5 mg NEBULIZER Q4H PRN 05/10/2018 Act guzman documented as of this encounter (statuses as of 04/01/2023) Active Problems Problem Noted Date Diagnosed Date [...] ischemic heart disease 002 Overview: father had MT's in 40's Gastroesophageal reflux disease with esophagitis documented as of this encounter (statuses as of 04/01/2023) Resolved Problems Problem Noted Date Diagnosed Date Resolved Date Facial swelling 06/09/2017 08/07/2019 Urticaria 06/09/2017 08/07/2019 Intestinal obstruction 05/09/201203/02 CLASSICAL MIGRAINE WITHOU ME NTION OF INTRACTABLE MIGRAINE 11/29/2001 08/07/2019 Undiagnosed cardiac murmurs 11/29/2001 03/02/2017 Overview: Not [place] on 11/29/01 documented as of this encounter (statuses as of 04/01/2023) Immunizations Name Administration Dates Next Due HEP A - Hepatitis A (Adult > 18 yrs) 06/06/2020 Pneumococcal Conjugate Vacci ne, 20-valent ([id number]) 06/24/2022 Seasonal Influenza Virus Vac cine, Unspecified [...] Date Recorded PHQ Adult Total Score 0 03/22/2022 Hunger Vital Sign Answer Date Recorded Within the past 12 months, y ou worried that your food would run out before you got the money to buy more. Patient refused Within the past 12 months, t he food you bought just didn't last and you didn't have money to get more. Patient refused Sex and Gender Information Value Date Recorded Sex Assigned at Male 11/24/2022 1:52 PM EDT Gender Identity Male 11/24/2022 1:52 PM EDT Sexual Orientation Straight 08/27/2019 5: 39 PM EDT Job Start Date Occupation Industry Not on file Not on file Not on file documented as of this encounter Last Filed Vital Signs Vital Sign Reading Time Taken Comments Blood Pressure 110/62 03/31/2023 9:36 AM EST Pulse 68 03/31/2023 9:36 AM EST Temperature 37.1 C (98.7 F) 03/31/2023 9:36 AM ES T Respiratory Rate - - Oxygen Saturation 98% 03/31/2023 9:36 AM EST Inhaled Oxygen Concentration - - Weight 82.5 kg (181 lb 12.8 oz) 03/31/2023 9:36 AM EST Height - - Body Mass Index 27.64 12/08/2022 11:20 AM EDT documented in this encounter Functional Status Functional Status Response Date of Assess ment Does this person have seriou s difficulty walking or climbing stairs? Yes 08/23/2021 documented as of this encounter Progress Notes * Keyanna Gordon CRNP - 04/01/2023 10:11 AM EST Message to GI nursing: Please fax a copy of yesterday's office visit, his most recent labs to [facility] [phone] attn: OLGA Obrien and Dr. Sharpe. This fax # is on one of the forms scanned into his chart. Keyanna * Keyanna Gordon CRNP - 03/31/2023 9:00 PM EST MELD 3.0: 13 at 03/31/2023 10:15 AM Calculated from: Serum Creatinine: 1.0 mg/dL at 03/31/2023 10:15 AM Serum Sodium: 141 mmol/L (Using max of 137 mmol/L) at 03/31/2023 10:15 AM Total Bilirubin: 2.1 mg/dL at 03/31/2023 10:15 AM Serum Albumin: 3.5 g/dL at 03/31/2023 10:15 AM INR(ratio): 1.5 at 03/31/2023 10:15 AM Age at listing (hypothetical): 57 years Sex: Male at 03/31/2023 10:15 AM [place] surgical risk based on today's Labs: 7 days 30 days 90 days 1 year 5 years 3.33 12.9 20 35 69 * Keyanna Gordon CRNP - 03/31/2023 9:26 AM EST CC: ETOH cirrhosis recheck HPI: Recall that Mr. Mauro Liu is a 57 yr old male pt of Dr. Yarbrough w a hx of migraines, bowel obstruction, HTN, GERD, DDD and ETOH cirrhosis complicated by EV, ascites, Hep Encep. Currently on diuretics for ascites, BB and PPI for EV, watching small liver lesions on most recent MRI. He is scheduled for hip replacement surgery at [facility] on 04/10/22. He has an appt w Dr. Andrews on 04/10/22 for surgical risk eval. MELD 3.0: 12 at 12/29/2022 9:28 AM Calculated from: Serum Creatinine: 0.8 mg/dL (Using min of 1 mg/dL) at 12/29/2022 9:28 AM Serum Sodium: 138 mmol/L (Using max of 137 mmol/L) at 12/29/2022 9:28 AM Total Bilirubin: 1.8 mg/dL at 12/29/2022 9:28 AM Serum Albumin: 3.5 g/dL at 12/29/2022 9:28 AM INR(ratio): 1.5 at 12/29/2022 9:28 AM Age at listing (hypothetical): 57 years Sex: Male at 12/29/2022 9:28 AM [place] surgical risk score (using Sept labs): Mortality risks within 7 days 3.3%, 30 days 12.9, 90 days 20% and one year 35%. Discussed these risk scores with Mauro, his and daughter. Explained that complications of surgery can include hepatic encepholapthy (severe confusion that does not improve), kidney failure, inability to manage electrolytes and porr surgical healing. Complications: Hepatic Encephalopathy: Was hospitalized at [facility] on two occasions previously And [facility] inNov 2021 for hep enceph. Maintained on Rifaximin 550mg BID and Lactulose 10gm/30ml taking 30ml QID regularly. EV EGD July 2022: Grade I EV, PHG Ascites: furosemide 20 mg 2 pills daily (per pt's ), spironolactone 25 mg once daily. (verifiedby his ). US at [facility] in May 2022 w very small ascites - unable to tap. Liver masses: US and MRI in Jan 2022 w LR4 lesion but bx benign ->downgraded. MRI in Apr w new LIRADs 2-> downgraded to cysts on October MRI. MRI Liver October. Morphological changes of cirrhosis with portal hypertension as detailed above. Multiple incidental hepatic cysts similar to prior examination. No suspicious hepatic lesion. 2. 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 No abnormal dilatation of the main pancreatic duct or abnormal pancreatic enhancement. Attention to be directed at the time of follow-up examination. 3. Additional findings and details as above. Labs: in [address] Shi: SALLIE, AMA, ASMA and tTg (-) EXAM: BP 110/62 | Pulse 68 | Temp 37.1 C (98.7 F) | Wt 82.5 kg (181 lb 12.8 oz) | SpO2 98% | BMI 27.64 kg/m | BSA 1.99 m GENERAL: 57 year old male well developed and well nourished in no acute distress; alert and oriented SKIN: no rashes, ulcers, + spider angiomata HEENT: normocephalic, sclera clear, pharynx normal NECK: supple, no lymphadenopathy, no masses or thyroid enlargement LUNGS: clear to auscultation anterior and posterior HEART: regular rate & rhythm, no murmurs and no gallops ABDOMEN: + multiple surgical scars, minimal ascites, normo-active bowel sounds, soft, non-tender, non-distended no masses EXTREMITIES: no palmar erythema, no edema, no skin discoloration, no clubbing, no cyanosis NEURO: no asterixes, no evidence of confusion or delayed mentation, no lateralizing findings, Sensory/Motor grossly normal IMPRESSION/RECOMMENDATIONS: 57 year old male with Alcoholic cirrhosis of liver with ascites (HCC) (Primary) - CBC WITH WBC DIFFERENTIAL; Future; Expected date: 03/31/2023 - COMPREHENSIVE METABOLIC PANEL; Future; Expected date: 03/31/2023 - PT INR; Future; Expected date: 03/31/2023 - EGD, FLEXIBLE, DIAGNOSTIC - 25-HYDROXY VITAMIN D; Future; Expected date: 03/31/2023 Though high risks for complications, would recommend going forward w the surgery because his quality of life w the hip pain is very poor - thus, would consider this life sustaining surgery. Should beseen daily by the hepatology service before and after the surgery. I spent a total of 30 minutes on the date of service in review of patient's record, and previously obtained information in person and appropriate medical visit, discussion and education of plan, withpatient and/or caregiver, placing orders for tests/referral/procedures as medically necessary and documentation of pertinent clinical information in patient's medical records for their visit today. YOGESH Orta documented in this encounter Nursing Notes * Yissel Dumont LPN - 03/31/2023 9:36 AM EST Patient identified by name and date of . Chief Complaint Patient presents with Follow Up Alcoholic cirrhosis, Pt presents with step daughter brian , and sanchez alcaraz. They are asking for meds to be refilled and sent to [facility], and please note to have lactulose - orange flavor- pt has trouble taking if clear or other flavored. It appears that dr yarbrough had recently prescribed all his medications documented in this encounter Plan of Treatment Upcoming Encounters Date Type Department Care Team (Late st Contact Info) Description 04/04/2023 2:40 PM EST Office Visit [facility] [address] [place] [phone] Rao Ochoa MD [address] [place] [phone] 04/06/2023 2:00 PM EST Office Visit Hepatology, [address] [place] [address] Marilou Andrews DO [address] [place] [phone] 07/27/2023 9:30 AM EDT Procedure Only Endoscopy, [place] [address] [place] [address] Trish Villatoro MD [address] [place] [id number] Scheduled Orders Name Type Priority Associated Diagnoses Orde r Schedule EGD, FLEXIBLE, DIAGNOSTIC Procedures Routine Alcoholic cirrhosis of liver with ascites (HCC) Ordered: 03/31/2023 Scheduled Procedures Name Priority Associated Diagnoses Date/Ti me COLONOSCOPY FLEXIBLE PROXIMAL DIAGNOSTIC Recall History of colon polyps Health Maintenance Due Date Last Done Comments Hepatitis B (1 of 3 - 3-dose series) 1964 COVID-19 Vaccine (#1) 01/12/1965 Albumin/Creatinine Ratio 1982 Zoster Vaccines (1 of 2) 2014 Depression Screening 03/22/2023 03/22/2022 GFR 03/31/2024 03/31/2023, 12/03, 10/17/2022, Additional history exists COLONOSCOPY-EVERY 3 YRS AGES 18-100 06/30/2024 06/30/2021, [...] Not on filedocumented as of this encounter Results * 25-HYDROXY VITAMIN D (03/31/2023 10:15 AM EST) 25-Hydroxy Vitamin D 27 >19 ng/mL 03/31/2023 10:00 PM EST [facility] Blood Venous blood specimen / Unknown Venipuncture / Unknown 03/31/2023 10:15 AM EST 03/31/2023 10:15 AM EST Narrative [facility] - 03/31/2023 10:00 PM EST Deficient: <20 ng/mL Insufficient: 20-29 ng/mL Recommended/Optimum:30-50 ng/mL Vitamin D intoxication is rare. If suspicious of Vitamin D toxicity, evaluation of serum Calcium and PTH is recommended. Keyanna ZUÑIGA LAB BLOOD ORDERABL ES Performing Organization Address City/[facility]/ZIP Co de Phone Number [facility] [address] [place] [address] * (ABNORMAL) PT INR (03/31/2023 10:15 AM EST) Prothrombin Time 18.0(H) 11.6 - 15.2 seconds 03/31/2023 10:51 AM EST [facility] [place] [facility] INR 1.5(H) 0.8 - 1.2 03/31/2023 10:51 AM EST [facility] [place] [facility] Blood Venous blood specimen / Unknown Venipuncture / Unknown 03/31/2023 10:15 AM EST 03/31/2023 10:15 AM EST Narrative [facility] [place] [facility] - 03/31/2023 10:51 AM EST Warfarin Therapy INR: 2.0-3.0 conventional anticoagulation INR: 2.5-3.5 high intensity anticoagulation Keyanna ZUÑIGA LAB BLOOD ORDERABL ES [facility] [place] [facility] [place] [address] * (ABNORMAL) COMPREHENSIVE METABOLIC PANEL (03/31/2023 10:15 AM EST) BUN 16 6 - 20 mg/dL 03/31/2023 11:42 AM EST [facility] [place] [facility] Creatinine 1.0 0.6 - 1.2 mg/dL 03/31/2023 11:42 AM EST [facility] [place] [facility] Estimated Glomerular Filtration Rate >90 >=60 mL/min 03/31/2023 11:42 AM EST [facility] [place] [facility] Comment:eGFR is calculated b ased on the CKD-EPI 2020 equation Sodium 141 135 - 146 mmol/L 03/31/2023 11:42 AM EST [facility] [place] [facility] Potassium 3.9 3.5 - 5.1 mmol/L 03/31/2023 11:42 AM EST [facility] [place] [facility] Chloride 109(H) 98 - 107 mmol/L 03/31/2023 11:42 AM EST [facility] [place] [facility] CO2 20(L) 22 - 32 mmol/L 03/31/2023 11:42 AM EST [facility] [place] [facility] Anion Gap 12 7 - 15 mmol/L 03/31/2023 11:42 AM EST [facility] [place] [facility] Glucose 157(H) 70 - 120 mg/dL 03/31/2023 11:42 AM EST [facility] [place] [facility] Albumin 3.5(L) 3.8 - 5.0 g/dL 03/31/2023 11:42 AM EST [facility] [place] [facility] AST 42 10 - 50 U/L 03/31/2023 11:42 AM EST [facility] [place] [facility] Alkaline Phosphatase 123 35 - 130 U/L 03/31/2023 11:42 AM EST [facility] [place] [facility] Bilirubin, Total 2.1(H) <=1.2 mg/dL 03/31/2023 11:42 AM EST [facility] [place] [facility] Calcium 9.1 8.4 - 10.2 mg/dL 03/31/2023 11:42 AM EST [facility] [place] [facility] Protein 6.5 6.0 - 8.3 g/dL 03/31/2023 11:42 AM EST [facility] [place] [facility] ALT 27 10 - 50 U/L 03/31/2023 11:42 AM EST [facility] [place] [facility] Blood Venous blood specimen / Unknown Venipuncture / Unknown 03/31/2023 10:15 AM EST 03/31/2023 10:15 AM EST Keyanna Fox Evan ZUÑIGA LAB BLOOD ORDERABL ES [facility] [place] [address] documented in this encounter Visit Diagnoses Diagnosis Alcoholic cirrhosis of liver with ascites (HCC)- Primary Alcoholic cirrhosis of liver documented in this encounter Additional Health Concerns Infection Onset Date Last Indicated Resolved Time Hepatitis A 08/23/2021 08/23/2021 documented as of this encounter Care Teams Study Abroad Coordinator Relationship Specialty Start Date End Date Toby Yarbrough MD [address] [facility] [address] PCP - General Family Medicine 11/25/14 documented as of this encounter"
--- OUTSIDE RECORDS SUMMARY | 2023-05-14 06:39 | External Medical Summary ---
Author Name Unknown Address Unknown Organization [id number]:[facility] [address] [place] [address] Laboratory Report Ordering Provider Test Date Status AIDEN SMITH 04/14/2023 11:09:03 Final Observation Date Value Abnormality Reference (Units ) Status WBC, Total 04/14/2023 11:09:03 8.46 4.00-10.80 (K/uL) Final RBC 04/14/2023 11:09:03 2.59 4.50-5.25 (M/uL) Final Hemoglobin 04/14/2023 11:09:03 8.8 Below low normal 14.0-16.8 (g/dL) Final HCT 04/14/2023 11:09:03 26.2 Below low normal 40.0-48.4 (%) Final MCV 04/14/2023 11:09:03 101.2 82.0-99.5 (fL) Final MCH 04/14/2023 11:09:03 34.0 27.0-34.0 (pg) Final MCHC 04/14/2023 11:09:03 33.6 32.0-36.0 (g/dL) Final RDW 04/14/2023 11:09:03 16.6 11.5-15.5 (%) Final Platelets 04/14/2023 11:09:03 70 Below low normal 140-400 (K/uL) Final MPV 04/14/2023 11:09:03 13.8 6.6-11.1 (fL) Final Nucleated erythrocytes/100 leukocytes [Ratio] in Blood by Automated count 04/14/2023 11:09:03 0 <=0 (/100 WBCs) Final Performing Location [facility] [place] [address] [place] [address]
--- OUTSIDE RECORDS SUMMARY | 2023-05-14 06:39 | External Medical Summary | Summary of Care ---
Author Name Unknown Organization [facility] Address [address] [address] Phone [phone] Care Team Providers Care Gas Maker Name Role Phone Toby Yarbrough MD Primary Care Provider [phone]- [phone] Reason for Visit * Reason Comments Follow Up Alcoholic cirrhosis, Encounter Details Date Type Department Care Team (Late st Contact Info) Description 03/31/2023 9:30 AM EST Office Visit Gastroenterology, [facility] [address] [place] [address] Keyanna Gordon CRNP [address] [place] [address] Alcoholic cirrhosis of liver with ascites (HCC)* Allergies Active Allergy Reactions Criticality Noted Date Comments Other Allergy (See Comments) Anaphylaxis High 06/21/2018 Bee stings- swelling documented as of this encounter (statuses as of 03/31/2023) Medications Medication Sig Dispensed Refills Start Date [...] 2 03/29/2023 Active Vitamin A & D [address] UNIT Oral Tablet Take by mouth. 0 Active Hospital, Clinic, or Other Facility Administered Medication Ordered Dose Route Frequency Start Date End Date Status albuterol sulfate (PROVENTIL) (2.5 MG/3ML) 0.083% inhalation solution 2.5 mgIndications:SOB (shortness of breath) 2.5 mg NEBULIZER Q4H PRN 05/10/2018 Act guzman documented as of this encounter (statuses as of 03/31/2023) Active Problems Problem Noted Date Diagnosed Date [...] ischemic heart disease 002 Overview: father had ID's in 40's Gastroesophageal reflux disease with esophagitis documented as of this encounter (statuses as of 03/31/2023) Resolved Problems Problem Noted Date Diagnosed Date Resolved Date Facial swelling 06/09/2017 08/07/2019 Urticaria 06/09/2017 08/07/2019 Intestinal obstruction 05/09/201203/02 CLASSICAL MIGRAINE WITHOU ME NTION OF INTRACTABLE MIGRAINE 11/29/2001 08/07/2019 Undiagnosed cardiac murmurs 11/29/2001 03/02/2017 Overview: Not [place] on 11/29/01 documented as of this encounter (statuses as of 03/31/2023) Immunizations Name Administration Dates Next Due HEP A - Hepatitis A (Adult > 18 yrs) 06/06/2020 Pneumococcal Conjugate Vacci ne, 20-valent ([id number]) 06/24/2022 Seasonal Influenza Virus Vac cine, Unspecified [...] Progress Notes * Keyanna Gordon CRNP - 03/31/2023 9:00 [...] years Sex: Male at 03/31/2023 10:15 AM [place] surgical risk based on today's Labs: 7 days 30 days 90 days 1 year 5 years 3.33 12.9 20 35 69 * Keyanna Gordon CRNP - 03/31/2023 9:26 AM EST CC: ETOH cirrhosis recheck HPI: Recall that Mr. Mauro Liu is a 57 yr old male pt of Dr. Brandi guerrier a hx of migraines, bowel obstruction, HTN, GERD, DDD and ETOH cirrhosis complicated by EV, ascites, Hep Encep. Currently on diuretics for ascites, BB and PPI for EV, watching small liver lesions on most recent MRI. He is scheduled for [place] [facility] [place]. He has an appt w [...] years Sex: Male at 12/29/2022 9:28 AM [place] surgical risk score (using Sept labs): Mortality risks within 7 days 3.3%, 30 days 12.9, 90 days 20% and one year 35%. Discussed these risk scores with Mauro, his and daughter. Explained that complications of surgery can include hepatic encepholapthy (severe confusion that does not improve), kidney failure, inability to manage electrolytes and porr surgical healing. Complications: Hepatic Encephalopathy: Was hospitalized at [facility] on two occasions previously And [facility] 2021 for hep enceph. Maintained on Rifaximin 550mg BID and Lactulose 10gm/30ml taking 30ml QID regularly. EV EGD July 2022: Grade I EV, PHG Ascites: furosemide 20 mg 2 pills daily (per pt's ), spironolactone 25 mg once daily. (verifiedby his ). US at [facility] in May 2022 w very small ascites [...] presents with step daughter brian , and roblesmadyson lissa. They are asking for meds to be [...] Description 04/04/2023 2:40 PM EST Office Visit [facility] [address] [place] [id number] Rao Ochoa MD [address] [place] [address] 04/06/2023 2:00 PM EST Office Visit Hepatology, [facility] [address] [place] [address] Marilou Andrews DO [address] [place] [id number] 07/27/2023 9:30 AM EDT Procedure Only Endoscopy, [facility] [address] [place] [address] Trish Villatoro MD [address] [place] [address] Pending Results Name Type Priority Associated Diagnoses Date /Time 25-HYDROXY VITAMIN D Lab Routine Alcoholic cirrhosis of liver with ascites (HCC) 03/31/2023 10:15 AM EST Scheduled Orders Name Type Priority Associated Diagnoses Orde r Schedule EGD, FLEXIBLE, DIAGNOSTIC Procedures Routine Alcoholic cirrhosis of liver with ascites (HCC) Ordered: 03/31/2023 25-HYDROXY VITAMIN D Lab Routine Alcoholic cirrhosis of liver with ascites (HCC) Expected: 03/31/2023, Expires: 03/31/2024 Scheduled Procedures Name Priority Associated Diagnoses Date/Ti [...] filedocumented as of this encounter Results * (ABNORMAL) PT INR (03/31/2023 10:15 AM EST) Prothrombin Time 18.0(H) 11.6 - 15.2 seconds 03/31/2023 10:51 AM EST [facility] 57-10 INR 1.5(H) 0.8 - 1.2 03/31/2023 10:51 AM EST [facility] 57-10 Blood Venous blood specimen / Unknown Venipuncture / Unknown 03/31/2023 10:15 AM EST 03/31/2023 10:15 AM EST Narrative [facility] 57-10 - 03/31/2023 10:51 AM EST Warfarin Therapy INR: 2.0-3.0 conventional anticoagulation INR: 2.5-3.5 high intensity anticoagulation Keyanna ZUÑIGA LAB BLOOD ORDERABL ES [facility] 57-10 [address] [place] [address] * (ABNORMAL) COMPREHENSIVE METABOLIC PANEL (03/31/2023 10:15 AM EST) BUN 16 6 - 20 mg/dL 03/31/2023 11:42 AM EST [facility] 57-10 Creatinine 1.0 0.6 - 1.2 mg/dL 03/31/2023 11:42 AM EST [facility] 57-10 Estimated Glomerular Filtration Rate >90 >=60 mL/min 03/31/2023 11:42 AM EST [facility] 57-10 Comment:eGFR is calculated b ased on the CKD-EPI 2020 equation Sodium 141 135 - 146 mmol/L 03/31/2023 11:42 AM EST [facility] 57-10 Potassium 3.9 3.5 - 5.1 mmol/L 03/31/2023 11:42 AM EST [facility] 57-10 Chloride 109(H) 98 - 107 mmol/L 03/31/2023 11:42 AM EST [facility] 57-10 CO2 20(L) 22 - 32 mmol/L 03/31/2023 11:42 AM EST [facility] 57-10 Anion Gap 12 7 - 15 [...] U/L 03/31/2023 11:42 AM EST [facility] 57-10 Bilirubin, Total 2.1(H) <=1.2 mg/dL 03/31/2023 11:42 AM EST [facility] 57-10 Calcium 9.1 8.4 - 10.2 mg/dL 03/31/2023 11:42 AM EST [facility] 57-10 Protein 6.5 6.0 - 8.3 g/dL 03/31/2023 11:42 AM EST [facility] 57[facility]10 ALT 27 10 - 50 U/L 03/31/2023 11:42 AM EST [facility] 57-10 Blood Venous blood specimen / Unknown Venipuncture / Unknown 03/31/2023 10:15 AM EST 03/31/2023 10:15 AM EST Keyanna ZUÑIGA LAB BLOOD ORDERABL ES [facility] [address] [facility] [address] documented in this encounter Visit Diagnoses Diagnosis Alcoholic cirrhosis of liver with ascites (HCC)- Primary Alcoholic cirrhosis of liver documented in this encounter Additional Health Concerns Infection Onset Date Last Indicated Resolved Time Hepatitis A 08/23/2021 08/23/2021 documented as of this encounter Care Teams Gas Maker Relationship Specialty Start Date End Date Toby Yarbrough MD [address] [facility] [place] [address] PCP - General Family Medicine 11/25/14 documented as of this encounter"
--- OUTSIDE RECORDS SUMMARY | 2023-05-14 06:39 | External Medical Summary ---
Author Name Unknown Address Unknown Organization [id number]:[facility] - [address] [place] [address] Laboratory Report Ordering Provider Test Date Status AIDEN SMITH 04/20/2023 10:18:21 Final Observation Date Value Abnormality Reference (Units ) Status WBC, Total 04/20/2023 10:18:21 5.68 4.00-10.80 (K/uL) Final RBC 04/20/2023 10:18:21 2.72 4.50-5.25 (M/uL) Final Hemoglobin 04/20/2023 10:18:21 9.4 Below low normal 14.0-16.8 (g/dL) Final HCT 04/20/2023 10:18:21 29.3 Below low normal 40.0-48.4 (%) Final MCV 04/20/2023 10:18:21 107.7 82.0-99.5 (fL) Final MCH 04/20/2023 10:18:21 34.6 27.0-34.0 (pg) Final MCHC 04/20/2023 10:18:21 32.1 32.0-36.0 (g/dL) Final RDW 04/20/2023 10:18:21 20.5 11.5-15.5 (%) Final Platelets 04/20/2023 10:18:21 88 Below low normal 140-400 (K/uL) Final MPV 04/20/2023 10:18:21 14.4 6.6-11.1 (fL) Final Nucleated erythrocytes/100 leukocytes [Ratio] in Blood by Automated count 04/20/2023 10:18:21 0 <=0 (/100 WBCs) Final Performing Location [facility] - [address] [address]
--- OUTSIDE RECORDS SUMMARY | 2023-05-14 06:39 | External Medical Summary | Summary of Care ---
Author Name Unknown Organization [facility] Address [address] [place] [address] Phone [phone] Care Team Providers Care Research Professional Name Role Phone Toby Paz MD Primary Care Provider +1- [phone] Encounter Details Date Type Department Care Team (Late st Contact Info) Description 04/20/2023 Orders Only Laboratory, [address] [address] Camille Jaimes, PA-C [address] [place] [id number] S/P hip replacement* Allergies Active Allergy Reactions Criticality Noted Date Comments Other Allergy (See Comments) Anaphylaxis High 06/21/2018 Bee stings- swelling documented as of this encounter (statuses as of 04/20/2023) Medications Medication Sig Dispensed Refills Start Date [...] 2 03/29/2023 Active Vitamin A & D [address] UNIT Oral Tablet Take by mouth. 0 [...] as of this encounter (statuses as of 04/20/2023) Active Problems Problem Noted Date Diagnosed Date [...] ischemic heart disease 002 Overview: father had OH's in 40's Gastroesophageal reflux disease with esophagitis documented as of this encounter (statuses as of 04/20/2023) Resolved Problems Problem Noted Date Diagnosed Date Resolved Date Facial swelling 06/09/2017 08/07/2019 Urticaria 06/09/2017 08/07/2019 Intestinal obstruction 05/09/201203/02 CLASSICAL MIGRAINE WITHOU ME NTION OF INTRACTABLE MIGRAINE 11/29/2001 08/07/2019 Undiagnosed cardiac murmurs 11/29/2001 03/02/2017 Overview: Not [place] on 11/29/01 documented as of this encounter (statuses as of 04/20/2023) Immunizations Name Administration Dates Next Due HEP A - Hepatitis A (Adult > 18 yrs) 06/06/2020 Pneumococcal Conjugate Vacci ne, 20-valent ([id number]) 06/24/2022 Seasonal Influenza Virus Vac cine, Unspecified [...] Yes 08/23/2021 documented as of this encounter Plan of Treatment Upcoming Encounters Date Type Department Care Team (Late st Contact Info) Description 07/27/2023 9:30 AM EDT Procedure Only Endoscopy, [place] [address] [place] [address] Trish Villatoro MD [address] [place] [address] 08/07/2023 3:00 PM EDT Office Visit Gastroenterology, [facility] [address] [place] [address] Keyanna Gordon CRNP [address] [place] [address] Scheduled Orders Name Type Priority Associated Diagnoses Orde r Schedule CBC WITH WBC DIFFERENTIAL Lab STAT S/P hip replacement Every Mon, Wed, Fri for 18 Occurrences starting 04/20/2023 until 04/20/2024 Scheduled Procedures Name Priority Associated Diagnoses Date/Ti me COLONOSCOPY FLEXIBLE PROXIMAL DIAGNOSTIC Recall History of colon polyps Health Maintenance Due Date Last Done Comments Hepatitis B (1 of 3 - 3-dose series) 1965 COVID-19 Vaccine (#1) 01/12/1965 Albumin/Creatinine Ratio 1982 Zoster Vaccines (1 of 2) 2014 GFR 03/31/2024 03/31/2023, 09/2 11/2022, 10/17/2022, Additional history exists Depression Screening 04/17/2024 [...] as of this encounter Visit Diagnoses Diagnosis S/P hip replacement- Primary Hip joint replacement by other means documented in this encounter Care Teams Research Professional Relationship Specialty Start Date End Date Toby Paz MD [address] [place] [address] PCP - General Family Medicine 11/25/14 documented as of this encounter
--- OUTSIDE RECORDS SUMMARY | 2023-05-14 06:39 | External Medical Summary | Continuity of Care Document ---
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 Name Role Phone Kiley Paz Primary Care Physician [phone] Encounter [facility] [id number] Date(s): 04/10/23 - 04/12/[address] [phone] Encounter Diagnosis Acute pain(Discharge Diagnosis) - 04/07/23 Left hip pain(Discharge Diagnosis) - 04/10/23 Thrombocytopenia(Discharge Diagnosis) - 04/12/23 Liver disease(Discharge Diagnosis) - 04/12/23 Discharge Disposition: Home or Self Care Attending Physician: MD Santiago Nikkole M Admitting Physician: MD Santiago Nikkole M Allergies, Adverse Reactions, Alerts No Known Allergies Functional Status 04/12/23 Neurological Symptoms Weakness ADLs Moderate assistance Facial Symmetry Symmetric Gait Jerky, Steady Swallowing Difficulty None Level of Consciousness Neuro Alert Hallucinations Present None Speech Pattern Clear 04/12/23 History of Fall in Last 3 Months Shields N o Presence of Secondary Diagnosis Shields Ye s Use of Ambulatory Aid Shields Crutches/can e/walker IV/Heparin Lock Fall Risk Shields Yes Gait/Transferring Fall Risk Shields Weak Mental Status Fall Risk Shields Oriented t o own ability Shields Fall Risk Score 60 Shields Fall Risk High risk Medications atorvastatin 20 mg oral tablet 1 [...] cap, PO, q12h, Disp# 14 cap, Pharmacy: [facility] Start Date: 04/12/23 Stop Date: 04/19/23 Status: [...] mL, subQ, Daily, Disp# 12 mL, Pharmacy: [facility] Start Date: 04/12/23 Stop Date: 05/12/23 Status: Ordered magnesium oxide 400 mg (241.3 mg elemental magnesium) oral tablet Start: 01/18/23 9:57:00 EDT, 1 tab, PO, qAM Start Date: 01/18/23 Status: Ordered oxyCODONE 5 mg oral tablet Start: 04/12/23 14:25:00 EST, 2.5 mg =, PO, q4h, Disp# 12 tab, Refills: 0, PRN: pain - moderate (4-6), Pharmacy: [id number] Start Date: 04/12/23 Status: Ordered pantoprazole 40 mg oral delayed [...] Ordered Ultram 50 mg oral tablet Start: 04/12/23 14:25:00 EST, 1 tab, PO, q8h, Disp# 21 tab, Pharmacy: [id number] Start Date: 04/12/23 Status: Ordered Xifaxan 550 mg oral tablet Start: 01/18/23 9:57:00 EDT, 1 tab, PO, Daily Start Date: 01/18/23 Status: Ordered Mental Status 04/10/23 Communication Barrier Present No Primary Language Portuguese Problem List Diagnosis Diagnosis Type Effective Dates Health Status Clinical Service Informant Acute pain Discharge Diagnosis 04/07/23 Non-Specified Left hip pain Discharge Diagnosis 04/10/23 Liver disease Discharge Diagnosis 04/12/23 Thrombocytopenia Discharge Diagnosis 04/12/23 Procedures Procedure Date Related Diagnosis Body Site Status Cholecystectomy 2015 Completed Bowel resection s/t obstruction 2013 Completed Appendectomy as teenager Completed Colonoscopy Completed Endoscopy Completed Results Laboratory List Name Date Complete Blood Count (CBC w Platelets) Basic Metabolic Panel (BMP) 04/11/23 Complete Blood Count (CBC w Platelets) Liver Profile (LFT) 04/11/23 Complete Blood Count (CBC w Platelets) IStat Gases, Arterial (ANES) (I-STAT GAS ,ART(ANES)) 04/10/23 Prepare FFP. 04/10/23 Prepare Platelets. 04/10/23 Complete Blood Count w Differential (CBC w Platelets and Diff) 04/10/23 Blood Type (ABO/Rh) 04/10/23 Blood Type/Antibody Screen ( for possible transfusion) (Type and Screen (for possible transfusion)) 04/10/23 Prothrombin Time w/ INR (PT/INR) 04/10/23 Most recent to oldest [Reference Range]: 1 2 3 Hct, POC [38-51 %] 32 % *LOW* (04/10/23 12:21 PM) Hgb, POC [12-17 g/dL] 10.9 g/dL *LOW* (04/10/23 12:21 PM) ABO/Rh O POSITIVE *Unknown* (04/10/23 8:21 AM) O POSITIVE *Unknown* (04/10/23 8:20 AM) Antibody Scr NEGATIVE *Unknown* (04/10/23 8:20 AM) Expires at 0600AM on 04/13/2023 *Unknown* (04/10/23 8:20 AM) # Units 2 (04/10/23 9:43 AM) 1 (04/10/23 9:43 AM) 2 (04/10/23 8:20 AM) R Number NRQ *Unknown* (04/10/23 8:20 AM) eGFR CKD-EPI [>60 mL/min/1.73 m2] 48 mL/min/1.73 m2 *LOW* (04/11/23 8:30 AM) Base Deficit, POC 3 mmol/L (04/10/23 12:21 PM) Glu (wb), POC by IStat [70-105 mg/dL] 107 mg/dL *HI* (04/10/23 12:21 PM) SaO2(a), POC [92-98 %] 99 % *HI* (04/10/23 12:21 PM) Estimated CrCl 49.56 mL/min (04/11/23 9:29 AM) MPV [9.0-12.2 fL] 12.1 fL (04/12/23 8:38 AM) 12.2 fL (04/11/23 8:30 AM) 11.4 fL (04/10/23 1:50 PM) Immature Gran% 0.1 % (04/10/23 8:21 AM) Neut% 50.6 % (04/10/23 8:21 AM) Lymph% 25.4 % (04/10/23 8:21 AM) [place]% 11.6 % (04/10/23 8:21 AM) Baso% 0.7 % (04/10/23 8:21 AM) Eos% 11.6 % (04/10/23 8:21 AM) Immat Gran, Abs [0-0.4 K/uL] 0.01 K/uL (04/10/23 8:21 AM) Neut, Abs [2.0-7.7 K/uL] 3.62 K/uL (04/10/23 8:21 AM) Lymph, Abs [1.0-3.4 K/uL] 1.82 K/uL (04/10/23 8:21 AM) Defiance, Abs [0-1.0 K/uL] 0.83 K/uL (04/10/23 8:21 AM) Baso, Abs [0-0.1 K/uL] 0.05 K/uL (04/10/23 8:21 AM) Eos, Abs [0-0.5 K/uL] 0.83 K/uL *HI* (04/10/23 8:21 AM) Type of Diff: AUTO *Unknown* (04/10/23 8:21 AM) RDW [11.5-14.2 %] 16.9 % *HI* (04/12/23 8:38 AM) 17.0 % *HI* (04/11/23 8:30 AM) 16.3 % *HI* (04/10/23 1:50 PM) pH (a), POC [7.35-7.45 unit] 7.386 unit (04/10/23 12:21 PM) pCO2 (a), POC [35-45 mmHg] 36.5 mmHg (04/10/23 12:21 PM) pO2 (a), POC [80-105 mmHg] 142 mmHg *HI* (04/10/23 12:21 PM) HCO3(a), POC [22-26 mmol/L] 22.3 mmol/L (04/10/23 12:21 PM) Ion Ca(wb), POC [1.12-1.32 mmol/L] 1.08 mmol/L *LOW* (04/10/23 12:21 PM) Na (wb), POC [138-146 mmol/L] 141 mmol/L (04/10/23 12:21 PM) K (wb), POC [3.5-4.9 mmol/L] 3.7 mmol/L (04/10/23 12:21 PM) Component PLASMA *Unknown* (04/10/23 9:43 AM) PLATELETS *Unknown* (04/10/23 9:43 AM) RED CELLS *Unknown* (04/10/23 8:20 AM) Anion Gap [5-14 mmol/L] 12 mmol/L (04/11/23 8:30 AM) Alk Phos [40-130 unit/L] 98 unit/L (04/11/23 8:30 AM) ALT [0-41 unit/L] 20 unit/L (04/11/23 8:30 AM) BUN [6-23 mg/dL] 22 mg/dL (04/11/23 8:30 AM) Ca [8.4-10.2 mg/dL] 8.4 mg/dL (04/11/23 8:30 AM) Cl- [98-107 mmol/L] 105 mmol/L (04/11/23 8:30 AM) HCO3 [22-29 mmol/L] 22 mmol/L (04/11/23 8:30 AM) Cret [0.70-1.30 mg/dL] 1.64 mg/dL *HI* (04/11/23 8:30 AM) Glu [74-109 mg/dL] 144 mg/dL 1 *HI* (04/11/23 8:30 AM) Hct [39-48 %] 25.9 % *LOW* (04/12/23 8:38 AM) 27.3 % *LOW* (04/11/23 8:30 AM) 34.0 % *LOW* (04/10/23 1:50 PM) Hgb [13.0-17.0 g/dL] 9.1 g/dL *LOW* (04/12/23 8:38 AM) 9.5 g/dL *LOW* (04/11/23 8:30 AM) 11.7 g/dL *LOW* (04/10/23 1:50 PM) INR [0.9-1.1] 1.5 2 *HI* (04/10/23 8:23 AM) K [3.5-5.1 mmol/L] 4.4 mmol/L (04/11/23 8:30 AM) MCH [28-33 pg] 32.6 pg (04/12/23 8:38 AM) 32.5 pg (04/11/23 8:30 AM) 32.1 pg (04/10/23 1:50 PM) MCHC [32-36 g/dL] 35.1 g/dL (04/12/23 8:38 AM) 34.8 g/dL (04/11/23 8:30 AM) 34.4 g/dL (04/10/23 1:50 PM) MCV [81-96 fL] 92.8 fL (04/12/23 8:38 AM) 93.5 fL (04/11/23 8:30 AM) 93.4 fL (04/10/23 1:50 PM) Na [136-145 mmol/L] 139 mmol/L (04/11/23 8:30 AM) Plts [150-350 K/uL] 58 K/uL *LOW* (04/12/23 8:38 AM) 74 K/uL *LOW* (04/11/23 8:30 AM) 88 K/uL *LOW* (04/10/23 1:50 PM) PT [12.0-14.2 seconds] 17.7 seconds *HI* (04/10/23 8:23 AM) RBC [4.40-5.60 M/uL] 2.79 M/uL *LOW* (04/12/23 8:38 AM) 2.92 M/uL *LOW* (04/11/23 8:30 AM) 3.64 M/uL *LOW* (04/10/23 1:50 PM) T Bili [0.0-1.2 mg/dL] 1.9 mg/dL *HI* (04/11/23 8:30 AM) Temp(a) 35.3 C (04/10/23 12:21 PM) WBC [4.0-10.4 K/uL] 14.92 K/uL *HI* (04/12/23 8:38 AM) 18.57 K/uL *HI* (04/11/23 8:30 AM) 12.44 K/uL *HI* (04/10/23 1:50 PM) 1Result Comment: ADA recommendation for FASTING Serum/Plasma Glucose: Normal: 70-100 mg/dL Prediabetes: 100-125 mg/dL Diabetes: 126 mg/dL or higher 2Result Comment: Suggested therapeutic range for low-intensity Coumadin therapy for venous thromboembolism is INR 2.0-3.0 (ex: atrial fibrillation, history of TIA/stroke). For high risk patients, the suggested therapeutic range is INR 2.5-3.5 (ex: mechanical prosthetic valves). Radiology Reports * Exam Date Time Procedure Performing Provider Status 04/10/23 3:15 PM XR Hip 2-3 Views w/AP Pelvis Marilou Coronado; Final Notes: (XR Hip 2-3 Views w/AP Pelvis Left) Reason For Exam: s/p L CECILIO XR Hip 2-3 Views w/AP Pelvis Left EXAMINATION: XR Hip 2-3 Views w/AP Pelvis Left CLINICAL HISTORY: portable, to be taken in PACU s/p L CECILIO COMPARISON: Pelvis x-rays from earlier today at 12:24. Left hip x-rays from 12/08/2022. FINDINGS: Portable supine AP and crosstable lateral views of the left hip. Left total hip arthroplasty without immediate hardware complication. Alignment is normal. Mild degenerative changes of the right hip. SI joints and pubic symphysis are unremarkable. Mild soft tissue air along the left lateral hip, expected. IMPRESSION: Left total hip arthroplasty without immediate hardware complication. Dr. Dilip Skinner is the dictating resident. Finalized reports status indicates that the attending has reviewed the images and report, and agrees with the interpretation. Preliminary report status should be regarded as NOT interpreted by the attending radiologist. Workstation ID: [id number] Final Dictated by:DO Skinner Benjamin James Dictated DT/TM:04/10/2023 5:41 Resident:DO Skinner Benjamin James Signed by:MD Evans Pamela L Signed (Electronic Signature):04/10/2023 5:40 p * Exam Date Time Procedure Performing Provider Status 04/10/23 12:45 PM XR Pelvis 1 or 2 Views Hemanth Saenz Notes: (XR Pelvis 1 or 2 Views) Reason For Exam: INTRAOP XRAY -- L CECILIO; OA XR Pelvis 1 or 2 Views EXAMINATION: XR Pelvis 1 or 2 Views CLINICAL HISTORY: INTRAOP XRAY -- L CECILIO; OA COMPARISON: December 08, 2022 FINDINGS: AP view the pelvis shows intraoperative imaging during left total hip arthroplasty. No fracture. The right hip is obscured by overlapping surgical material. Expected soft tissue air about the lateralleft hip. IMPRESSION: Intraoperative imaging during left total hip arthroplasty. Workstation ID: [id number] Final Dictated by:MD Hayden Cristy N Dictated DT/TM:04/10/2023 1:01 Signed by:MD Hayden Cristy N Signed (Electronic Signature):04/10/2023 1:00 p Vital Signs Most recent to oldest [Reference Range]: 1 2 3 Height 176 cm (04/10/23 8:06 AM) Patient Weight 82 kg (04/10/23 8:06 AM) Body Mass Index 26.47 kg/m2 (04/10/23 1:21 PM) 26.47 kg/m2 (04/10/23 8:06 AM) Temperature [36.5-37.9 DegC] 36.1 DegC *LOW* (04/12/23 8:44 AM) 36.9 DegC (04/12/23 4:29 AM) 36.6 DegC (04/11/23 11:19 PM) Heart Rate 80 bpm (04/12/23 8:44 AM) 76 bpm (04/12/23 4:29 AM) 76 bpm (04/11/23 11:19 PM) Respiratory Rate 18 br/min (04/12/23 8:44 AM) 18 br/min (04/12/23 4:29 AM) 16 br/min (04/11/23 11:19 PM) Blood Pressure 120/58mmHg (04/12/23 8:44 AM) 123/58mmHg (04/12/23 4:29 AM) 123/51mmHg (04/11/23 11:19 PM) Mean Blood Pressure 75 mmHg (04/12/23 8:44 AM) 75 mmHg (04/12/23 4:29 AM) 71 mmHg (04/11/23 11:19 PM) Cuff Pulse Pressure 62 mmHg (04/12/23 8:44 AM) 65 mmHg (04/12/23 4:29 AM) 72 mmHg (04/11/23 11:19 PM) BP Location # 1 Left Arm (04/12/23 8:44 AM) Left Arm (04/12/23 4:29 AM) Left Arm (04/11/23 11:19 PM) Social History Social History Type Response Smoking Status Never smoked cigaret jocelin Sex Male Implantable Device List Procedure Provider Procedure Date Device Type Site Unknown Unknown 04/10/23 Unknown Unknown Device Identifier Serial Number Lot or Batch Number Manufacturing Date Expiration Date Distinct Identification Code MRI Safety Implantable Status Assigning Authority Unknown Unknown [id number] Unknown 12/31/32 Unknown Unknown Active Unk nown Unknown Unknown [id number] Unknown 09/30/32 Unknown Unknown Active Unknown Unknown Unknown [id number] Unknown 12/02/27 Unknown Unknown Active Unkn own Unknown Unknown [id number] Unknown 08/31/30 Unknown Unknown Active Unkn own Unknown Unknown [id number] Unknown 01/01/28 Unknown Unknown Active Unk nown .D/C Summary * OLGA Vines, Ruht Merritt: PERFORM, MODIFY Event Display: .D/C Summary Authored Date: [id number] [facility] For medical concerns, call: . Address: [address] [place] [address] BRENNAN ALONSO [id number] (MOBILE) :1965 . Date of Admission:04/10/2023 Date of Discharge:04/12/2023 Physician:MD Santiago Nikkole M Service:Orthopaedic Surgery Discharge Disposition:home with home health Primary Care Provider/Phone: MD FRANCISCO, KILEY Glasgow (Fjuul) [phone] (FAX BUSINESS) Principal Diagnosis: Left hip pain Other Diagnoses: Acute pain Major Tests and Procedures: Peripheral Nerve Block 04/10/2023 Total Hip Arthroplasty, Left 04/10/2023 Brief History of Present Illness: Patient has tried and failed conservative treatment measures and is ready to proceed with surgical intervention. Family notes significant functional decline over the last 2-3 months, now requiring family assistance for all transfers. He can walk a few steps with a walker but has significant pain indoing do. Hospital Course: The patient was cleared for surgery and taken to the operating room on the day of admission where the above-named procedure was performed. There were no intraoperative complications. The patient was taken to the recovery room in stable condition. Postoperatively, the patient did very well. There were no GI, GUor pulmonary complications. Pain was controlled through peripheral nerve blockade and oral analgesics. The patient was started on anticoagulation post-operative day 1 for prevention of deep venous thrombosis, as well as TEDS hose bilaterally. The patient was mobilized per standard protocol, allowing weight bearing as tolerated utilizing a walker, and progressed well through physical therapy. Upon discharge, the patient was independent in ambulation, transfers, and ADLs and according to family, walking better than he was before surgery. We will see the patient back in two weeks for repeat evaluation. At discharge we had a discussion regarding postoperative care. Patient and family are aware of the signs and symptoms of both wound infection, and deep vein thrombosis. They are instructed to call our office with any questions or concerns or any temperature elevations that may arise. PDMP was reviewed prior to discharge. No concerns identified. The NIH weight category of beingOver weight with a BMI of 26. Exam on Discharge: Vitals & Measurements: T:36.1C TMIN:36.1C TMAX:36.9C HR:80(Monitored) RR:18 BP:120/58 SpO2:99% Oxygen Therapy:Room air Discharge Exam: Exam on day of discharge revealed a hip incision without erythema or drainage. Dressing was clean, dry and intact. Calves were soft and non-tender. Distal pulses and sensation were intact Discharge Medications: 1.Magnesium oxide (magnesium oxide 400 mg (241.3 mg elemental magnesium) oral tablet) 400 mg (1 tab) by mouth once a day (in the morning). 2.FLUoxetine (FLUoxetine 10 mg oral capsule) 10 mg (1 cap) by mouth once daily. . 3.Spironolactone 25 mg by mouth once a day (in the morning). 4.Lactulose 30 mL by mouth 3 times daily. 5.Gabapentin (gabapentin 100 mg oral capsule) 100 mg (1 cap) by mouth once daily. . 6.RifAXIMin (Xifaxan 550 mg oral tablet) 550 mg (1 tab) by mouth once daily. 7.Furosemide (furosemide 40 mg oral tablet) 40 mg (1 tab) by mouth once daily. . 8.Pantoprazole (pantoprazole 40 mg oral delayed release tablet) 40 mg (1 tab) by mouth once daily. . 9.Atorvastatin (atorvastatin 20 mg oral tablet) 20 mg (1 tab) by mouth once daily. . 10.TraZODone (traZODone 50 mg oral tablet) 100 mg (2 tab) by mouth at bedtime. 11.Cholecalciferol (cholecalciferol 1250 mcg (50,000 intl units) oral capsule) See Instructions . 1 cap PO twice a week x 8 weeks. 12.Ferrous sulfate (iron sulfate) See Instructions . 13.OxyCODONE (oxyCODONE 5 mg oral tablet) 2.5 mg by mouth every 4 hours, as needed for pain - moderate (4-6). 14.Cefadroxil (Duricef 500 mg oral capsule) 500 mg (1 cap) by mouth every 12 hours. 15.Acetaminophen (Tylenol 500 mg oral tablet) 1,000 mg (2 tab) by mouth 2 times daily. 16.TraMADol (Ultram 50 mg oral tablet) 50 mg (1 tab) by mouth every 8 hours. 17.Enoxaparin (Lovenox 40 mg/0.4 mL injectable solution) 40 mg (0.4 mL) subcutaneously once daily. Allergies and Sensitivities: NKA Tests Pending: None Scheduled Appointments: Date/Time:Provider/Resource: May 11:00 amRadiology [place] Location/Instructions:[facility] [place] [address]. This appointment time has been reserved for your appointment. If you need to cancel or reschedule your visit call . Please arrive 15 minutesearlier than your appointment for check in process. Date/Time:Provider/Resource: May 11:05 MD Clarence, Jamie Merritt Location/Instructions:[facility] [place] [address]. This appointment time has been reserved for your appointment. If you need to cancel or reschedule your visit call . Please arrive 15 minutesearlier than your appointment for check in process. Discharge Services: Service: Organization: Business Address: Phone Number: D[facility] Medical Equipment [facility] [address], [place], [address] Home Care Physician Services [facility] Nursing Agency [address] [place] [address], [id number] Care Instructions: General Instructions: Wound care: Remove the Aquacell dressing 14 days after you are discharged from [facility], unless otherwise directed. Once the Aquacell dressing has been removed you may cover your incision with dry gauze and tape as needed. You may shower with the Aquacell in place (do net let water hit the dressing directly). Do not soak in a bathtub, hot tub, or pool until your surgeon tells you that you may do so. Once Aquacell dressing is removed, do not get incision with chino wet. Do not remove the chino. If you do shower, please cover the wound to keep dry. Tu Hose: Wear the tu hose/stockings for the next two weeks as tolerated. They can be removed at night whilein bed, and put back on in the morning. Pain Medicine [id number] three times per day Tramadol 50mg three times per day A narcotic has been prescribed: You will take this medication every 4-8 hours as needed for severe painnot relieved by the other pain medications. Do not drive while on pain medication. Please discontinue the narcotic medication as soon as possible due to adverse effects which can include: sedation, respiratory depression, constipation, and dependence. Please take over the counter stool softeners while taking pain medication to prevent constipation If you notice you are running low on narcotic medication please call theoffice at least 48 hours prior to running out. The clinic will need that much time to get you more medications especially if on a Monday Anticoagulation: [id number] mg sub-Q injection daily for 30 days. Ask your physician prior to taking Non-steroidal Anti-inflammatories while on this medication. ANTIBIOTICS: Duricef 500mg one capsule twice daily x 7 days If you are sent home on antibiotics finish the entire dose. We recommend that you take a probiotic such as Florajen Digestion while you are on antibiotics to help prevent stomach upset. . Advance Directive:None I personally spent30 minutes in discharge planning. Electronic Signature on File Electronically Reviewed/Signed by: Ruth Vines PA-C Author Signature Dt/Tm:04/12/2023 12:49 PM Division of Orthopaedics Electronically Reviewed/Signed by: Jamie Santiago MD Cosigner Signature Dt/Tm: 04/12/2023 01:03 PM Division of Orthopaedics [facility] Discharge instructions * OLGA Vines, Ruth Merritt: PERFORM, MODIFY Event Display: Patient Discharge Instructions Authored Date: [id number] MARLEEN MELTON :1965 Visit Date:04/10/2023 Patient Discharge Instructions [facility] For medical concerns, call: . Date of Admission:04/10/2023 Date of Discharge:04/12/2023 Physician:MD Santiago Nikkole M Service:Orthopaedic Surgery Discharge Disposition:home with home health . Advance Directive:None Reason for Hospitalization Left hip pain Your Diagnoses Left hip pain Thrombocytopenia Liver disease Acute pain My Health Patient Portal: [place] [employer] makes it easy for you to manage your health information online. My [facility] [employer] is a free service that provides you instant, secure access to your medical information anytime, anywhere. Sign in or set up your account today at [email or web address] Thank you for allowing us to assist you with your healthcare needs. If you need additional community resources, BRENNAN Covarrubias can help at https://www.pa211.org. 211 can assist you in connecting with social programs based on your unique needs and locations. 211 is an anonymous search that can help you locate resources for: Food, Housing, Transportation, Goods, Education and Healthcare. Medications What How Much When Instructions Next Dose New acetaminophen (Tylenol 500 mg oral tablet) 2 tab(s) by mouth 2 times daily New cefadroxil (Duricef 500 mg oral capsule) 1 cap by mouth Every 12 hours Duration: 7 Days Pickup at [facility] New enoxaparin (Lovenox 40 mg/ 0.4 mL injectable solution) 0.4 Milliliter subcutaneously Once daily Duration: 30 Days Pickup at [facility] New traMADol (Ultram 50 mg oral tablet) 1 tab(s) by mouth Every 8 hours Pickup at [facility] Changed oxyCODONE (oxyCODONE 5 mg oral tablet) 2.5 Milligram by mouth Every 4 hours as needed for pain - moderate (4-6) Pickup at [facility] Unchanged atorvastatin (atorvastatin 20 mg oral tablet) 1 tab(s) by mouth Once daily Unchanged cholecalciferol (cholecalciferol 1250 mcg (50,000 intl units) oral capsule) See instructions 1 cap PO twice a week x 8 weeks Unchanged ferrous sulfate (iron sulfate) See instructions Unchanged FLUoxetine (FLUoxetine 10 mg oral capsule) 1 cap by mouth Once daily Unchanged furosemide (furosemide 40 mg oral tablet) 1 tab(s) by mouth Once daily Unchanged gabapentin (gabapentin 100 mg oral capsule) 1 cap by mouth Once daily Unchanged lactulose 30 Milliliter by mouth 3 times daily Unchanged magnesium oxide (magnesium oxide 400 mg (241.3 mg elemental magnesium) oral tablet) 1 tab(s) by mouth Once a day (in the morning) Unchanged pantoprazole (pantoprazole 40 mg oral delayed release tablet) 1 tab(s) by mouth Once daily Unchanged rifAXIMin (Xifaxan 550 mg oral tablet) 1 tab(s) by mouth Once daily Unchanged spironolactone 25 Milligram by mouth Once a day (in the morning) Unchanged traZODone (traZODone 50 mg oral tablet) 2 tab(s) by mouth At bedtime Pharmacy Information [facility] [place]: [address] [place] [address] BRENNAN Navarrete [phone] Allergies NKA What to do next Instructions From Your Doctor General Instructions: Wound care: Remove the Aquacell dressing 14 days after you are discharged from [facility], unless otherwise directed. Once the Aquacell dressing has been removed you may cover your incision with dry gauze and tape as needed. You may shower with the Aquacell in place (do net let water hit the dressing directly). Do not soak in a bathtub, hot tub, or pool until your surgeon tells you that you may do so. Once Aquacell dressing is removed, do not get incision with chino wet. Do not remove the chino. If you do shower, please cover the wound to keep dry. Tu Hose: Wear the tu hose/stockings for the next two weeks as tolerated. They can be removed at night whilein bed, and put back on in the morning. Pain Medicine [id number] three times per day Tramadol 50mg three times per day A narcotic has been prescribed: You will take this medication every 4-8 hours as needed for severe painnot relieved by the other pain medications. Do not drive while on pain medication. Please discontinue the narcotic medication as soon as possible due to adverse effects which can include: sedation, respiratory depression, constipation, and dependence. Please take over the counter stool softeners while taking pain medication to prevent constipation If you notice you are running low on narcotic medication please call theoffice at least 48 hours prior to running out. The clinic will need that much time to get you more medications especially if on a Monday Anticoagulation: [id number] mg sub-Q injection daily for 30 days. Ask your physician prior to taking Non-steroidal Anti-inflammatories while on this medication. ANTIBIOTICS: Duricef 500mg one capsule twice daily x 7 days If you are sent home on antibiotics finish the entire dose. We recommend that you take a probiotic such as Florajen Digestion while you are on antibiotics to help prevent stomach upset. If you notice the following symptoms Call 911 if you experience shortness of breath or chest pain. Please call the orthopedic clinic at [phone] if you experience the followin) Redness aroundincision 2) Drainage around the incision 3) Fever greater than 101.5 F 4) Pain not controlled by your medications Contact our Careline at . If unable to contact your physician and you feel it is an emergency, go to the nearest Emergency Room or call 911 Diet Instructions Activity Instructions Weight Bearing Leg, Left, Weight Bearing As Tolerated Follow-Up Appointments Scheduled Follow-Up Appointments Date/Time:Provider/Resource: May 11:00 [facility]ructions[facility] [place] [address]. This appointment time has been reserved for your appointment. If you need to cancel or reschedule your visit call . Please arrive 15 minutesearlier than your appointment for check in process. Date/Time:Provider/Resource: May 11:05 MD Clarence, Jamie Merritt Location/Instructions:[facility], Entrance A, [address] [place] [id number]. This appointment time has been reserved for your appointment. If you need to cancel or reschedule your visit call . Please arrive 15 minutesearlier than your appointment for check in process. The Following Equipment/Treatments Have Been Ordered for You Order: Special Instructions: DME Rolling Walker The Following Services Have Been Arranged for You Service: Organization: Business Address: Phone Number: Durable Medical Equipment [facility] [address], [address], [place], [address] Home Care Physician Services [facility] [address] [place], [address] Tests Pending None Procedures Performed Peripheral Nerve Block 04/10/2023 Total Hip Arthroplasty, Left 04/10/2023 Special Instructions Common Emergency Awareness Tips Call 911 immediately if: experiencing any of the warning signs and symptoms of stroke: B.E. F.A.S.T. Balance: is there trouble with walking or coordination Eyes: is there double vision or visual loss Face: Smile, do both sides of face move equally Arm: Raise arms, do both arms move equally Speech: Is speech slurred or inappropriate Time: Time is critical, call 911 immediately Heart Attack Signs Chest discomfort: Most heart attacks involve discomfort in the center of the chest and lasts more than a few minutes, or goes away and comes back. It can feel like uncomfortable pressure, squeezing, fullness or pain. Discomfort in upper body: Symptoms can include pain or discomfort in one or both arms, back, neck, jaw or stomach. Shortness of breath: With or without discomfort. Other signs: Breaking out in a cold sweat, nausea, or lightheaded. Remember, MINUTES DO MATTER. If you experience any of these heart attack warning signs, call to get immediate medical attention! [employer] Nerve Block Instructions How Does my Nerve Block Work? Nerve blocks are to help with pain after surgery. You might also have prescriptions for non-opioid and opioid medications. You may be asked to take non-opioid medication around the clock and only use opioid medications as needed. The pump has only a local numbing medicine.It will last 2-3 days. A limb that is numb or cannot be moved for 8-24 hours after surgery is normal. Do not worry, the nerve block will wear off slowly. Call the number at the bottom of the page if: Signs of too much numbing medicine: metallic taste, ringing in the ears, tingling around the lips, confusion, and unclear speech Rash or hives, fever greater than 101.5o, F or uncontrolled pain, bleeding, swelling, or redness atthe catheter site If you noticed the catheter has moved or system is leaking Numbness or weakness that lasts for more than 12 hours after the catheter is removed Unacceptable pain level. Instructions: Do not get the pump wet. Do not have the pump in very high or low temperature You may not feel cold, heat, or pressure as you normally would, so be careful. Do not let your limbtouch anything that may hurt it. Rest your limb on a pillow if able and your surgical team allows. If you are having pain, you may be able to use a bolus (blue) button and press it. It will take 15-20 minutes for it to improve pain. The pump will not give more medicine than allowed. If your pain does not get better or you do not have the bolus function then you may take your pain medication as prescribed. You should not take opioid pain medicine if your pain is improved as you could have unwanted side effects. Activity Instructions: You may do your physical therapy as instructed You may sponge bathe.Showering might move the catheter. Do not get the site wet. Should I Be Worried? If bubbles are in the tubing, they will not hurt you You may see some clear fluid around the catheter site. This is normal and extra gauze may be used over original bandage.If you see the pump or tubing leaking, call the phone number listed below. If the clear bandage comes off and the insertion site is not covered then the catheter should be taken out. If having signs of too much medicine or site is too numb, you should turn off your pain pump. Pressthe red and green stop/start button. To restart once feeling returns, press the button again. Removal of Nerve Block: 1. Wash your hands 2. Close the clamp to stop the medicine 3. Take the bandage and tape off the skin 4. Slowly remove the catheter by pulling from the skin (it should come out easily). Skin glue at the site may make the initial tug resistant and is not uncommon 5. If there is any resistance, pain, or tingling, STOP. Call the numbers below 6. Place pressure and a bandage on the site 7. If you have bleeding, swelling, or redness please call the numbers below [employer] 24 hour Support Hotline: To call the [facility] Anesthesia service, call [phone] & ask for the Acute Pain resident, pager # [phone] The [facility] team will call daily. They will ask you about your pain. The phone call may come froman out of state number. Please keep the box with you until the medicine is finished, then follow the directions on the box and mail it back (postage paid). For more information regarding peripheral nerve blocks please see Continuous Peripheral Nerve Block Infusion Self-Care and Peripheral Nerve Block in [employer]. Revised September 2020- Information obtained from [facility] Anesthesiology procedure note * Flaco Schofield MD, Nadia: SIGN, MODIFY Flaco Schofield MD, Nadia: MODIFY, VERIFY Flaco Schofield MD, Nadia: VERIFY DO Husain Michael: PERFORM, MODIFY DO Husain Michael: MODIFY, SIGN DO Husain Michael: SIGN, MODIFY DO Husain Michael: MODIFY, SIGN DO Husain Michael: SIGN Event Display: Anes Acute Pain Procedure Note Authored Date: [id number] Patient: MARLEEN MELTON Age: 57 years Sex: Male : 1965 Associated Diagnoses: None Author: DO Husain Michael 57 year old male with PMHx significant for hip pain, HTN, and liver disease who is PPD 1 from a left total hip arthroplasty on 04/10/23 and left sided fascia iliaca block. Initially bolused with 20cc of 0.25% Ropivacaine. Due to continuing 10/10 in PACU, block was removed and replaced while in PACU. C urrently on 0.2% Ropivacaine bolused 20ccs every 3 hours, patient controlled 5cc bolus every 30 mins. Currently complaining of 10/10 "numbness" to left anterior upper leg. Catheter insertion site is clean, dry and intact. Ortho paused infusion this AM for their assessment, spoke to ortho, their assessment showed no neuro deficits. Infusion was restarted after rounds. Pain has improved. Fascia iliaca block: Ropivacaine 0.2% 20cc q3h, patient controlled 5cc [id number] Adjunct meds: Scheduled Tylenol 1000 mg twice daily Scheduled tramadol 50 mg Q8 As needed 2.5 oxycodone every 4 has required 2 doses since yesterday The plan for today includes the following recommendations: 1) Continue current infusion 2) Continue multimodal anesthesia 3) Please call [facility] for any further questions or concerns Post Procedure Follow Up Allergies: Allergic Reactions (Selected) NKA. Problem List: All Problems Hip pain / SNOMED CT 63148804 / Complaint of Hypertension / SNOMED CT 1410816493 / Complaint of Liver disease / SNOMED CT 056699791 / Complaint of. Current Medication: (Selected) Prescriptions Prescribed cholecalciferol 1250 mcg (50,000 intl units) oral capsule: See Instructions, 1 cap PO twice a week x 8 weeks, 16 cap Documented Medications Documented FLUoxetine 10 mg oral capsule: 1 cap, PO, Daily Xifaxan 550 mg oral tablet: 1 tab, PO, Daily atorvastatin 20 mg oral tablet: 1 tab, PO, Daily furosemide 40 mg oral tablet: 1 tab, PO, Daily gabapentin 100 mg oral capsule: 1 cap, PO, Daily iron sulfate: See Instructions lactulose: 30 mL, PO, tid magnesium oxide 400 mg (241.3 mg elemental magnesium) oral tablet: 1 tab, PO, qAM oxyCODONE 5 mg oral tablet: 1 tab, PO, bid, PRN: as needed for pain, 0 Refill(s) pantoprazole 40 mg oral delayed release tablet: 1 tab, PO, Daily spironolactone: 25 mg, PO, qAM traZODone 50 mg oral tablet: 2 tab, PO, qhs. Post Procedure Day: 1 . Pain Assessment: Numeric Rating Scale (NRS): Pain Score: 10/10. Pain Location: Upper Leg, Left. Catheter Insertion: Clean, dry and intact without infection. Catheter Tubing Connections Confirmed: Yes. Professional Services: Resident/Fellow/PORTAL DEVELOPER: DO Husain Michael. Physician Attestation: I reviewed the patients medical history and PE. I have personally seen the patient. I was present at the site and I supervised the acute pain management plan. I, (Nadia Andrews), was present for the entire procedure and agree with the Residents documentation . Electronic Signature on File Electronically Reviewed/Signed by: Jayson Husain DO Author Signature Dt/Tm:04/11/2023 11:59 AM Resident Department of Anesthesia Electronically Reviewed/Signed by: Jayson Husain DO Cosigner Signature Dt/Tm: 04/11/2023 01:37 PM Resident Department of Anesthesia Electronically Reviewed/Signed by: Nadia Schoifeld Cosigner Signature Dt/Tm: 04/11/2023 03:23 PM Department of Anesthesia MP * DO Morales Christopher Adam: SIGN, MODIFY MD May, Rishi: SIGN, MODIFY MD May, Rishi: MODIFY, SIGN MD May, Rishi: SIGN, MODIFY MD May, Rishi: MODIFY, VERIFY MD May, Rishi: VERIFY DO Husain Michael: PERFORM, SIGN DO Husain Michael: SIGN Event Display: Anes Acute Pain Procedure Note Authored Date: Patient: MARLEEN MELTON Age: 57 years Sex: Male : 1965 Associated Diagnoses: None Author: DO Husain Michael Health Status Allergies: Allergic Reactions (Selected) NKA. Current Medication: (Selected) Prescriptions Prescribed cholecalciferol 1250 mcg (50,000 intl units) oral capsule: See Instructions, 1 cap PO twice a week x 8 weeks, 16 cap Documented Medications Documented FLUoxetine 10 mg oral capsule: 1 cap, PO, Daily Xifaxan 550 mg oral tablet: 1 tab, PO, Daily atorvastatin 20 mg oral tablet: 1 tab, PO, Daily furosemide 40 mg oral tablet: 1 tab, PO, Daily gabapentin 100 mg oral capsule: 1 cap, PO, Daily iron sulfate: See Instructions lactulose: 30 mL, PO, tid magnesium oxide 400 mg (241.3 mg elemental magnesium) oral tablet: 1 tab, PO, qAM oxyCODONE 5 mg oral tablet: 1 tab, PO, bid, PRN: as needed for pain, 0 Refill(s) pantoprazole 40 mg oral delayed release tablet: 1 tab, PO, Daily spironolactone: 25 mg, PO, qAM traZODone 50 mg oral tablet: 2 tab, PO, qhs. Procedure Assessment VS/Measurements: Vital Signs 04/10/2023 08:13 EST Temperature 37.0 DegC Temperature Route Temporal Heart Rate 76 bpm Respiratory Rate 16 br/min Systolic Blood Pressure 127 mmHg Diastolic Blood Pressure 70 mmHg BP Location # 1 Right Arm Oxygen Therapy Room air SpO2 99 % . Assessment: Procedure Date: 04/10/2023. Consent for regional Procedure: Yes. Pain Assessment: Pain Location: Upper Leg, Left. Acute Pain Procedure Procedure Location: PACU. Timing of Procedure: Post Op. Correct Site/Side Identified/Marked: Yes. Patient Monitored: Yes. Oxygen Available: Yes. Time Out Complete: Yes. Sterile field established: Yes. Ultrasound probe covered with sterile sleeve as indicated: Yes. Nerve identified and examined with ultrasound: Yes. Needle advanced to desired location under ultrasound guidance: Yes. Ultrasound image stored in PACS: Yes. Procedure Start Time: 04/10/2023 13:29:00. Procedure End Time: 04/10/2023 13:40:00. Attending Present: Yes. Anesthesiologist: MD Olvera Dennis. Resident/Fellow/PORTAL DEVELOPER: DO Husain Michael. Referring Physician: MD Santiago Nikkole M. Patient Awake and Alert: Yes. Peripheral Block + Block: Primary. Patient Position: Supine. Block Location: Upper leg, left. Laterality: Left. Sedation: None. Skin Preparation: Chlorhexidine. Needle Type: Short Bevel/Stimulating. MRI Compatible: No. Needle Gauge: 18. Local Infiltration: Yes. Technique: Continuous Catheter. Block Description: Fascia Iliaca. Nerve Localization Technique: Ultrasound. Ultrasound Orientation: In plane. # of attempts: 1 . Aspiration: None. Medication Injected: PowerOrders Pharmacy: ropivacaine 0.25% (Order): 20 mL, perineural, ONCE. Fractionated Dose: 5 mL. Total Volume Injected: 30 mL. Parasthesia: No. Block Complications: No. Professional Services Resident/Fellow/PORTAL DEVELOPER: DO Husain Michael. Acute Pain Procedure For Post Op Pain Management: Yes. If yes, Referring Physician: MD Santiago Nikkole M. Physician Attestation: Attending Addendum: I attest that I was personally present for the entire procedure.. Anesthesia Hospital Charge AdHoc Form: Regional Anesthesia Section Completed: Yes. Electronic Signature on File Electronically Reviewed/Signed by: Jayson Husain DO Author Signature Dt/Tm:04/10/2023 02:10 PM Resident Department of Anesthesia Electronically Reviewed/Signed by: Rishi Yuan Signature Dt/Tm: 04/10/2023 02:19 PM Department of Anesthesia * DO Morales Christopher Adam: PERFORM Event Display: Anes Acute Pain Procedure Note Authored Date: [id number] Pt complained of 10/10 pain in PACU that was refractory to a bolus of 7mL of 0.5% ropivacaine with 3mL of 1% lidocaine (10mL total). Catheter examined with ultrasound, which showed catheter giving fluid into the pectenius muscle. Catheter was replaced around 1615. 15mL of 0.5% ropivacaine was injected after placement. Electronic Signature on File Electronically Reviewed/Signed by: Cachorro Morales DO Author Signature Dt/Tm:04/10/2023 04:34 PM Resident Department of Anesthesia Electronically Reviewed/Signed by: Rishi Yuan Signature Dt/Tm: 04/11/2023 08:59 AM Department of Anesthesia [facility] Note * MD Luciano Andrew: PERFORM Event Display: Brief Operative Note Authored Date: [id number] BRIEF OPERATIVE NOTE Name: MARLEEN MELTON Patient Number: [id number] : 1965 Date of Service: 04/10/2023 Pre-op Diagnosis: L Hip DJD Post-op Diagnosis: same Procedure: L HIP CECILIO Surgeon: Pamela Assistants: Theodore Luciano Anesthesia: Spinal Estimated Blood Loss: 1 L Less than 50ml Drains: none Fluids: 1u PRBC, 1u PLTs, 500 albumin, 900 crystaloid Urinary Output: none recorded Condition: stable to PACu Complications: none apparent Specimen: x None Findings: L hip DJD now s/p above Check one Pharmacologic VTE prophylaxis not indicated x Standard VTE prophylactic regimen ordered Pharmacologic VTE prophylaxis contraindicated due to increased risk of intraoperative and / or postoperative bleeding Check one No antibiotics indicated x Standard prophylactic antibiotic regimen ordered Antibiotic regimen changed due to concern for infection Assessment: 57 yo M s/p L CECILIO - Weight bearing: WBAT LLE - Physical Therapy: Consulted - DVT prophylaxis: Start pLov POD1 if PLTs > 50k, appreciate recs from hepatology for post op anticoagulation plan - Dressing: Aquacel - Antibiotics: Shani-Op abx ordered, will d/c w/ Duricef 500mg BID 1wk - Pain control: Tylenol limit 2g q24 hr; Oxy 2.5, Tramadol, NO NSAIDs, okay for block - Drain: None - Imaging: Post-Op XRs ordered - Labs: AM CBC and BMP; Postop HCT & CBC ordered -Transfuse PLTs if < 50k - Home Medications: Restarted - Diet/GI: Regular diet, bowel regimen - : Follow up void - Dispo: Inpatient 2/2 medical comorbidities TT Ortho Joints Res/KAUSHIK w/ any questions or concerns Electronic Signature on File Electronically Reviewed/Signed by: Linden Luciano MD Author Signature Dt/Tm:04/10/2023 01:13 PM Resident Division of Orthopaedics AM Patient Care team information Care Team Personnel Name: MD Francisco, Kiley Glasgow Position: Referring DIRECT Member Role: Primary Care Provider Address: Address: [address] [place] [address] [place] Care Team Related Persons Name: MALCOM BURDEN Address: home [address] [place] [address] BRENNAN ALONSO [phone]
--- OUTSIDE RECORDS SUMMARY | 2023-05-14 06:39 | External Medical Summary | Summary of Care ---
Author Name Unknown Organization [facility] Address [address] [place] [facility] [place] [facility] [place] [address] Phone [phone] Care Team Providers Care Supervisor Gate Services Name Role Phone Kiley Singh MD Primary Care Provider +1- [phone] Reason for Visit * Reason Comments eRx-Medication Refill Encounter Details Date Type Department Care Team (Late st Contact Info) Description 04/01/[address] [facility] [address] [place] [address] Kiley Singh MD [address] [place] [address] Hip pain, left; Avascular necrosis of bone of hip, unspecified laterality (HCC) Allergies Active Allergy Reactions Criticality Noted Date Comments Other Allergy (See Comments) Anaphylaxis High 06/21/2018 Bee stings- swelling documented as of this encounter (statuses as of 04/04/2023) Medications Medication Sig Dispensed Refills Start Date [...] 0 Active oxyCODONE HCl 5 MG Oral Capsule (Oxy IR)Indications:A vascular necrosis of bone of hip, left (HCC) Take 1 Capsule by mouth in the morning and 1 Capsule before bedtime. 30 Capsule 0 03/01/2023 Active Additional Information Patient not taking.Reported on 03/31/2023 Atorvastatin Calcium 20 MG Oral Tablet (Lipitor)Indicat ions:Dyslipidemi a Take 1 Tablet by mouth in the [...] 03/29/2023 Active Lactulose 10 GM/15ML Oral Solution (Constulose)Kaylin cations:Hyperamm onemia (HCC) Take 30 mL by mouth in the morning and 30 mL at noon and 30 mL in the evening and 30 mL before bedtime. 946 mL 5 03/29/2023 Active Gabapentin 100 MG Oral Capsule (Neurontin)Indic ations:Complaint of paresthesia take 1 capsule by mouth every morning and AT NOON and BEFORE BEDTIME 90 Capsule 5 03/29/2023 Active Magnesium Oxide -Mg Supplement 400 (240 Mg) MG Oral Tablet (Mag-Ox) take 1 tablet by mouth IN THE MORNING AND BEFORE BEDTIME 180 Tablet 1 03/29/2023 Active Pantoprazole Sodium 40 MG Oral Tablet Delayed Release (Protonix)Indica tions:Gastroesop hageal reflux disease Take 1 Tablet by mouth in the morning and 1 Tablet before bedtime. 180 Tablet 1 03/29/2023 Active Spironolactone 25 MG Oral Tablet (Aldactone) Take 1 Tablet by mouth in the morning. 90 Tablet 0 03/29/2023 Active traZODone HCl 50 MG Oral Tablet (Desyrel)Indicat ions:Primary insomnia Take 2 Tablets by mouth at bedtime. 180 Tablet 1 03/29/2023 Active rifAXIMin 550 MG Oral Tablet (Xifaxan) take 1 tablet by mouth IN THE MORNING then take 1 tablet by mouth BEFORE BEDTIME 60 Tablet 2 03/29/2023 Active Vitamin A & D [address] UNIT Oral Tablet Take by mouth. 0 Active oxyCODONE HCl 5 MG Oral Tablet (Oxy IR)Indications:H ip pain, left,Avascular necrosis of bone of hip, unspecified laterality (HCC) Take 1 Tablet by mouth every 12 hours as needed for Pain, Severe. 30 Tablet 0 04/04/2023 Active oxyCODONE HCl 5 MG Oral Tablet (Oxy IR)Indications:H ip pain, left,Avascular necrosis of bone of hip, unspecified laterality (HCC) Take 1 Tablet by mouth every 12 hours as needed for Pain, Severe. 30 Tablet 0 03/20/2023 4 Discontinued Hospital, Clinic, or Other Facility Administered Medication Ordered Dose Route Frequency Start Date End Date Status albuterol sulfate (PROVENTIL) (2.5 MG/3ML) 0.083% inhalation solution 2.5 mgIndications:SOB (shortness of breath) 2.5 mg NEBULIZER Q4H PRN 05/10/2018 Act guzman documented as of this encounter (statuses as of 04/04/2023) Active Problems Problem Noted Date Diagnosed Date [...] ischemic heart disease 002 Overview: father had [place]'s in 40's Gastroesophageal reflux disease with esophagitis documented as of this encounter (statuses as of 04/04/2023) Resolved Problems Problem Noted Date Diagnosed Date Resolved Date Facial swelling 06/09/2017 08/07/2019 Urticaria 06/09/2017 08/07/2019 Intestinal obstruction 05/09/201203/02 CLASSICAL MIGRAINE WITHOU ME NTION OF INTRACTABLE MIGRAINE 11/29/2001 08/07/2019 Undiagnosed cardiac murmurs 11/29/2001 03/02/2017 Overview: Not [place] on 11/29/01 documented as of this encounter (statuses as of 04/04/2023) Immunizations Name Administration Dates Next Due HEP A - Hepatitis A (Adult > 18 yrs) 06/06/2020 Pneumococcal Conjugate Vacci ne, 20-valent ([id number]) 06/24/2022 Seasonal Influenza Virus Vac cine, Unspecified [...] encounter Miscellaneous Notes * Telephone Encounter - Kiley Singh MD - 04/04/2023 11:32 AM ESTSigned Prescriptions: Disp Refills oxyCODONE HCl 5 MG Oral Tablet (Oxy IR) 30 Tab*0 Sig: Take 1 Tablet by mouth every 12 hours as needed for Pain, Severe.Authorizing Provider: KILEY SINGH----- * Telephone Encounter - Laila Duncan [facility] - 04/04/2023 10:48 AM ESTPending Prescriptions: Disp Refills oxyCODONE HCl 5 MG Oral Tablet (Oxy IR) 30 Tab*0 Sig: Take 1 Tablet by mouth every 12 hours as needed for Pain, Severe. * Telephone Encounter - Laila Duncan [facility] - 04/04/2023 10:48 AM EST I have reviewed the patients controlled substance dispensing history in the Prescription Drug Monitoring Program in compliance with the [facility] regulations before prescribing a controlled substance. PDMP checked on 04/04/2023. Pending Prescriptions: Disp Refills oxyCODONE HCl 5 MG Oral Tablet (Oxy IR) [*30 Tab*0 Sig: Take 1 Tablet by mouth every 12 hours as needed for Pain, Severe. Last Visit: 02/06/2023 (in office), Visit date not found (telemedicine) Next Visit: 04/04/2023 Date medication was last filled: 03/20/23 Date medication is due for refill: 04/03/23 Pharmacy: [id number] [place] Is this request for a controlled substance? Yes and Urine Drug Screen Not completed Toxicology results: Results for orders placed or performed in visit on 08/23/21 TOXICOLOGY, URINE SCREEN W/ CONFIRMATION Result Value Amphetamines Screen, U Negative Benzodiazepines Screen, U Negative Cannabinoids Screen, U Negative Cocaine Metabolite Screen, U Negative Fentanyl Screen, U Negative Hydrocodone Screen, U Negative Methadone Metabolite Screen, U Negative Morphine/Codeine Screen, U Negative Oxycodone Screen, U Negative Narrative Cutoff Concentrations: Drug Level Amphetamines 500 ng/mL Benzodiazepines 100 ng/mL Cannabinoids 50 ng/mL Cocaine Metabolite 150 ng/mL Fentanyl 1 ng/mL Hydrocodone / Hydromorphone 300 ng/mL Methadone Metabolite 100 ng/mL Morphine / Codeine 300 ng/mL Oxycodone / Oxymorphone 100 ng/mL Screening results are presumptive and can only be used for medical purposes. Positive screening results are reflexed to confirmatory testing. Please approve if appropriate. Thanks, Laila Duncan Clinical Pharmacist [facility] (Former[facility]) [phone] 04/04/2023, 10:48 AM * Telephone Encounter - Interface, [facility] - 04/03/2023 1:46 PM EST Pending Prescriptions: Disp Refills oxyCODONE HCl 5 MG Oral Tablet [Pharmacy M*30 Tab*0 Sig: Take 1Tablet by mouth every 12 hours as needed for severe Pain documented in this encounter Plan of Treatment Upcoming Encounters Date Type Department Care Team (Late st Contact Info) Description 04/04/2023 2:40 PM EST Office Visit [facility] [address] [phone] aRo Ochoa MD [address] [place] [address] 04/06/2023 2:00 PM EST Office Visit Hepatology, [facility] [address] [place] [address] Marilou Andrews DO [address] [place] [address] 07/27/2023 9:30 AM EDT Procedure Only Endoscopy, [facility] [address] [place] [address] Trish Villatoro MD [address] [place] [address] Scheduled Procedures Name Priority Associated Diagnoses Date/Ti [...] as of this encounter Visit Diagnoses Diagnosis Hip pain, left Pain in joint, pelvic region and thigh Avascular necrosis of bone of hip, unspecified laterality (HCC) documented in this encounter Additional Health Concerns Infection Onset Date Last Indicated Resolved Time Hepatitis A 08/23/2021 08/23/2021 documented as of this encounter Care Teams Supervisor Gate Services Relationship Specialty Start Date End Date Kiley Singh MD [address] [place] [address] PCP - General Family Medicine 11/25/14 documented as of this encounter
--- OUTSIDE RECORDS SUMMARY | 2023-05-14 06:39 | External Medical Summary | Summary of Care ---
Author Name Unknown Organization [facility] Address [address] [place] [place] [address] Phone [phone] Care Team Providers Care Primary Special Educator Name Role Phone Toby Paz MD Primary Care Provider +1- [phone] Reason for Visit * Reason Comments Outpatient Testing Encounter Details Date Type Department Care Team (Latest Contact Info) Description 04/14/2023 11:00 AM EST Laboratory Laboratory, [place] [address] [place] [address] [place] [address] [place] [address] Thrombocytopenia (HCC)* Allergies Active Allergy Reactions Criticality Noted Date Comments Other Allergy (See Comments) Anaphylaxis High 06/21/2018 Bee stings- swelling documented as of this encounter (statuses as of 04/14/2023) Medications Medication Sig Dispensed Refills Start Date [...] oxyCODONE HCl 5 MG Oral Capsule (Oxy IR)Indications:Avasc ular necrosis of bone of hip, left (HCC) Take 1 Capsule by mouth in the morning and 1 Capsule before bedtime. 30 Capsule 0 03/01/2023 Active Atorvastatin Calcium 20 MG Oral Tablet [...] 2 03/29/2023 Active Vitamin A & D [address] UNIT Oral Tablet Take by mouth. 0 Active oxyCODONE HCl 5 MG Oral Tablet (Oxy IR)Indications:Hip pain, left,Avascular necrosis of bone of hip, unspecified laterality (HCC) Take 1 Tablet by mouth every 12 hours as needed for Pain, Severe. 30 Tablet 0 04/04/2023 Active Hospital, Clinic, or Other Facility Administered Medication Ordered Dose Route Frequency Start Date End Date Status albuterol sulfate (PROVENTIL) (2.5 MG/3ML) 0.083% inhalation solution 2.5 mgIndications:SOB (shortness of breath) 2.5 mg NEBULIZER Q4H PRN 05/10/2018 Act guzman documented as of this encounter (statuses as of 04/14/2023) Active Problems Problem Noted Date Diagnosed Date [...] ischemic heart disease 002 Overview: father had [place]'s in 40's Gastroesophageal reflux disease with esophagitis documented as of this encounter (statuses as of 04/14/2023) Resolved Problems Problem Noted Date Diagnosed Date Resolved Date Facial swelling 06/09/2017 08/07/2019 Urticaria 06/09/2017 08/07/2019 Intestinal obstruction 05/09/201203/02 CLASSICAL MIGRAINE WITHOU ME NTION OF INTRACTABLE MIGRAINE 11/29/2001 08/07/2019 Undiagnosed cardiac murmurs 11/29/2001 03/02/2017 Overview: Not [place] on 11/29/01 documented as of this encounter (statuses as of 04/14/2023) Immunizations Name Administration Dates Next Due HEP A - Hepatitis A (Adult > 18 yrs) 06/06/2020 Pneumococcal Conjugate Vacci ne, 20-valent ([id number]) 06/24/2022 Seasonal Influenza Virus Vac cine, Unspecified [...] 07/27/2023 9:30 AM EDT Procedure Only Endoscopy, [facility] [address] [place] [address] Trish Villatoro MD [address] [place] [address] 08/07/2023 3:00 PM EDT Office Visit Gastroenterology, [facility] [address] [place] [address] Keyanna Gordon CRNP [address] [place] [address] Pending Results Name Type Priority Associated Diagnoses Date /Time CBC WITH WBC DIFFERENTIAL Lab Routine Thrombocytopenia (HCC) 04/14/2023 11:09 AM EST CBC Lab Routine Thrombocytopenia (HCC) 04/14/2023 11:09 AM EST DIFFERENTIAL, AUTOMATED Lab Routine Thrombocytopenia (HCC) 04/14/2023 11:09 AM EST Scheduled Orders Name Type Priority Associated Diagnoses Orde r Schedule CBC WITH WBC DIFFERENTIAL Lab Routine Thrombocytopenia (HCC) Expected: 04/14/2023, Expires: 04/14/2024 CBC WITH WBC DIFFERENTIAL Lab Routine Thrombocytopenia (HCC) Expected: 04/15/2023, Expires: 04/14/2024 Scheduled Procedures Name Priority Associated Diagnoses Date/Ti [...] unspecified documented in this encounter Care Teams Primary Special Educator Relationship Specialty Start Date End Date Toby Paz MD [address] [place] [address] PCP - General Family Medicine 11/25/14 documented as of this encounter
--- OUTSIDE RECORDS SUMMARY | 2023-05-14 06:39 | External Medical Summary | Summary of Care ---
Author Name Unknown Organization [facility] [address] [address] Phone [phone] Care Team Providers Care Transport Tech Name Role Phone Toby Paz MD Primary Care Provider +1- [phone] Reason for Visit * Reason Comments Physical-Exam Is having hip on Mon day the 8th at [place] Encounter Details Date Type Department Care Team (Late st Contact Info) Description 04/04/2023 2:40 PM EST Office Visit [facility] [address] [place] [address] Rao Ochoa MD [address] [place] [address] Avascular necrosis of bone of left hip (HCC)* Allergies Active Allergy Reactions Criticality Noted [...] 2 03/29/2023 Active Vitamin A & D [address] UNIT Oral Tablet Take by mouth. 0 [...] ischemic heart disease 002 Overview: father had [place]'s in 40's Gastroesophageal reflux disease with esophagitis documented as of this encounter (statuses as of 04/04/2023) Resolved Problems Problem Noted Date Diagnosed Date Resolved Date Facial swelling 06/09/2017 08/07/2019 Urticaria 06/09/2017 08/07/2019 Intestinal obstruction 05/09/2012 11/30 /2017 CLASSICAL MIGRAINE WITHOU ME NTION OF INTRACTABLE MIGRAINE 11/29/2001 08/07/2019 Undiagnosed cardiac murmurs 11/29/2001 03/02/2017 Overview: Not [place] on 11/29/01 documented as of this encounter (statuses as of 04/04/2023) Immunizations Name Administration Dates Next Due HEP A - Hepatitis A (Adult > 18 yrs) 06/06/2020 Pneumococcal Conjugate Vacci ne, 20-valent ([id number]) 06/24/2022 Seasonal Influenza Virus Vac cine, Unspecified [...] 1:52 PM EDT Sexual Orientation Straight 08/27/2019 5 :39 PM EDT Job Start Date Occupation Industry Not on file Not on file Not on file documented as of this encounter Last Filed Vital Signs Vital Sign Reading Time Taken Comments Blood Pressure 112/60 04/04/2023 2:49 PM EST Pulse 66 04/04/2023 2:49 PM EST Temperature 36.7 C (98 F) 04/04/2023 2:49 PM EST Respiratory Rate 16 04/04/2023 2:49 PM EST Oxygen Saturation 98% 04/04/2023 2:49 PM EST Inhaled Oxygen Concentration - - Weight 82.1 kg (181 lb) 04/04/2023 2:49 PM EST Height 175.3 cm (5' 9") 04/04/2023 2:49 PM EST Body Mass Index 26.73 04/04/2023 2:49 PM EST documented in this encounter Functional Status Functional Status Response Date of Assess ment Does this person have seriou s difficulty walking or climbing stairs? Yes 08/23/2021 documented as of this encounter Progress Notes * Rao Ochoa MD - 04/04/2023 3:01 PM EST Pt already had preop clearance for hip surgery No need today's visit Cataract op is postponed now documented in this encounter Nursing Notes * Dayana Menjivar LPN - 04/04/2023 2:46 PM EST Chief Complaint Patient presents with Physical-Exam Is having hip on Monday the at [place] documented in this encounter Plan of Treatment Upcoming Encounters Date Type Department Care Team (Late st Contact Info) Description 04/06/2023 2:00 PM EST Office Visit Hepatology, [facility] [address] [place] [address] Marilou Andrews DO [address] [place] [address] 07/27/2023 9:30 AM EDT Procedure Only Endoscopy, [facility] [address] [place] [address] Trish Villatoro MD [address] [place] [address] Scheduled Procedures Name Priority Associated Diagnoses Date/Ti [...] as of this encounter Visit Diagnoses Diagnosis Avascular necrosis of bone of left hip (HCC)- Primary documented in this encounter Additional Health Concerns Infection Onset Date Last Indicated Resolved Time Hepatitis A 08/23/2021 08/23/2021 documented as of this encounter Care Teams Transport Tech Relationship Specialty Start Date End Date Toby Paz MD [address] [place] [address] PCP - General Family Medicine 11/25/14 documented as of this encounter
--- OUTSIDE RECORDS SUMMARY | 2023-05-14 06:39 | External Medical Summary ---
Author Name Unknown Address Unknown Organization [facility] - [address] [facility] [place] [address] Laboratory Report Ordering Provider Test Date Status LUISAIDEN 04/20/2023 10:18:21 Final Observation Date Value Abnormality Reference (Units ) Status SYNC LEUKOCYTES IN BLOOD BY AUTOMATED COUNT 04/20/2023 10:18:21 5.68 4.00-10.80 (K/uL) Final Segs 04/20/2023 10:18:21 64.9 40.0-75.0 (%) Final Lymphs % 04/20/2023 10:18:21 18.0 18.0-42.0 (%) Final Monos 04/20/2023 10:18:21 8.5 1.0-11.0 (%) Final Eosinophils 04/20/2023 10:18:21 7.4 Above high normal 0.0-6.0 (%) Final Basos 04/20/2023 10:18:21 0.7 0.0-2.0 (%) Final Immature Granulocyte, Percent 04/20/2023 10:18:21 0.5 0.0-2.0 (%) Final Absolute Segs 04/20/2023 10:18:21 3.69 1.80-7.70 (K/uL) Final Lymphs, absolute 04/20/2023 10:18:21 1.02 1.00-4.80 (K/ul) Final Monos, Abs 04/20/2023 10:18:21 0.48 0.00-1.10 (K/uL) Final Eos, Abs 04/20/2023 10:18:21 0.42 0.00-0.70 (K/uL) Final Basos, Abs 04/20/2023 10:18:21 0.04 0.00-0.20 (K/uL) Final Immature Granulocytes, Number 04/20/2023 10:18:21 0.03 0.00-0.20 (K/uL) Final Performing Location [facility] [place] [address] [facility] [address]
--- OUTSIDE RECORDS SUMMARY | 2023-05-14 06:39 | External Medical Summary | Summary of Care ---
Author Name Unknown Organization [facility] Address [address] [facility] [address] Phone [phone] Care Team Providers Care Risk Lead Name Role Phone Toby Paz MD Primary Care Provider +1- [phone] Reason for Visit * Reason Comments NEW PATIENT Cirrhosis * Evaluate & Treat - Unlimited Visits (Within 30 days (routine)) - Authorized Specialty Diagnoses / Procedures Referred By Pj t Referred To Contact Gastroenterology Diagnoses Alcoholic cirrhosis of liver with ascites (HCC) Keyanna Gordon CRNP [address] [place] [address] Referral ID Status Reason Start Date Expiration Date Visits Requested Visits Authorized [id number] Authorized Specialty Services Required 12/29/[phone] Encounter Details Date Type Department Care Team (Late st Contact Info) Description 04/06/2023 2:00 PM EST Office Visit Hepatology, [facility] [address] [facility] [place] [address] Marilou Andrews DO [address] [place] [address] Alcoholic cirrhosis of liver with ascites (HCC)* Allergies Active Allergy Reactions Criticality Noted Date Comments Other Allergy (See Comments) Anaphylaxis High 06/21/2018 Bee stings- swelling documented as of this encounter (statuses as of 04/06/2023) Medications Medication Sig Dispensed Refills Start Date [...] 2 03/29/2023 Active Vitamin A & D [address] UNIT Oral Tablet Take by mouth. 0 [...] as of this encounter (statuses as of 04/06/2023) Active Problems Problem Noted Date Diagnosed Date [...] ischemic heart disease 002 Overview: father had CA's in 40's Gastroesophageal reflux disease with esophagitis documented as of this encounter (statuses as of 04/06/2023) Resolved Problems Problem Noted Date Diagnosed Date Resolved Date Facial swelling 06/09/2017 08/07/2019 Urticaria 06/09/2017 08/07/2019 Intestinal obstruction 05/09/201203/02 CLASSICAL MIGRAINE WITHOU ME NTION OF INTRACTABLE MIGRAINE 11/29/2001 08/07/2019 Undiagnosed cardiac murmurs 11/29/2001 03/02/2017 Overview: Not [place] on 11/29/01 documented as of this encounter (statuses as of 04/06/2023) Immunizations Name Administration Dates Next Due HEP A - Hepatitis A (Adult > 18 yrs) 06/06/2020 Pneumococcal Conjugate Vacci ne, 20-valent ([id number]) 06/24/2022 Seasonal Influenza Virus Vac cine, Unspecified [...] Sign Reading Time Taken Comments Blood Pressure 118/76 04/06/2023 1:53 PM EST Pulse 92 04/06/2023 1:53 PM EST Temperature 36.6 C (97.9 F) 04/06/2023 1:53 PM ES T Respiratory Rate - - Oxygen Saturation 98% 04/06/2023 1:53 PM EST Inhaled Oxygen Concentration - - Weight 83.4 kg (183 lb 14.4 oz) 04/06/2023 1:53 PM EST Height 175.3 cm (5' 9") 04/06/2023 1:53 PM EST Body Mass Index 27.16 04/06/2023 1:53 PM EST documented in this encounter Functional Status Functional Status Response Date of Assess ment Does this person have seriou s difficulty walking or climbing stairs? Yes 08/23/2021 documented as of this encounter Progress Notes * Marilou Andrews, DO - 04/06/2023 1:57 PM EST Images from the original note were not included. Hepatology Clinic Note Date of appointment: 04/06/2023 Referred by: History of Present Illness: Mauro Liu is a 57 year old M with history of migraines, bowel obstruction, HTN, GERD, DDD and decompensated ETOH cirrhosis complicated by EV, ascites, and HE. he was referred by Keyanna Gordon NP who he sees in clinic for surgical risk eval prior to a hip surgery. He is scheduled for hip replacement surgery at [facility] on 04/10/22. Complications: Hepatic Encephalopathy: Was hospitalized at [facility] on two occasions previously And [facility] inNov 2021 for hep encephalopathy. On Rifaximin and lactulose. States it has been 2 years since he was last hospitalized for this. Has 3-4 bowel movements daily. Varices: EGD July 2022: Grade I EV, PHG. Has never had a history of variceal bleeding. Ascites: twan lasix 40 mg daily and aldactone 25 mg daily. He has never required a paracentesis in the past. Ascites is always well controlled. He is following a low salt diet. Liver masses: US and MRI in Jan 2022 w LR4 lesion but bx benign ->downgraded. MRI in Apr w new LIRADs 2-> downgraded to cysts on October MRI. MRI Liver October 2022. Morphological changes of cirrhosis with portal hypertension as detailed above.Multiple incidental hepatic cysts similar to prior examination. No suspicious hepatic lesion. 2. 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 No abnormal dilatation of the main pancreatic duct or abnormal pancreatic enhancement. Attention to be directed at the time of follow-up examination. 3. Additional findings and details as above. He states the last time he had any alcohol was around 1 year ago. He states both of his hips need replaced but they are doing the L first on 04/10 and planning to do the other one he states 1 year later. He has not had any surgeries since he had his diagnosis of cirrhosis. He is in a wheelchair todaydue to the pain and limited mobility of his hips. Review of systems: Positives in HPI. Negative for: Denies headache, lightheadedness, chest pain, cough, SOB, fever, chills, nausea, vomiting, heart burn, bloating, decreased appetite, early satiety, abdominal pain, diarrhea, fecal incontinence, constipation, rectal bleeding, weight loss, dysuria, frequency, incontinence, joint pain, back pain, weakness, fatigue, anxiety, depressed mood, difficulty sleeping. The remaining ROS reviewed and are negative. Past Medical History: Diagnosis Date Abdominal pain Alcoholic cirrhosis (HCC) 2020 Cirrhosis of liver with ascites 2021 Esophageal varices in cirrhosis (HCC) 2021 GERD (gastroesophageal reflux disease) HTN, goal below 130/80 08/07/2019 Intestinal obstruction (HCC) 05/09/2012 Iron deficiency anemia Migraine with aura 1976 Undiagnosed cardiac murmurs since Past Surgical History: Procedure Laterality Date COLONOSCOPY, DIAGNOSTIC (RECTUM) 04/10/2015 adenomatous polyps, repeat 3 yrs/COLONOSCOPY FLEXIBLE PROXIMAL DIAGNOSTIC performed by Lopez Shi MD at [facility] COLONOSCOPY, DIAGNOSTIC (RECTUM) 05/18/2018 adenomatous polyps, diverticulosis, repeat 1yr/COLONOSCOPY FLEXIBLE PROXIMAL DIAGNOSTIC performed by Lopez Shi MD at [facility] COLONOSCOPY, DIAGNOSTIC (RECTUM) 05/30/2019 adenomatous polyps, diverticulosis, repeat 3 yrs / COLONOSCOPY FLEXIBLE PROXIMAL DIAGNOSTIC performed by Lopez Shi MD at [facility] COLONOSCOPY, DIAGNOSTIC (RECTUM) 06/30/2021 1-4mm in rectum, otherwise normal / biopsies normal / 5 year recall / COLONOSCOPY FLEXIBLE PROXIMALDIAGNOSTIC performed by Jena Camargo MD at [facility] EGD, FLEXIBLE, DIAGNOSTIC 05/05/2014 normal bx/ESOPHAGOGASTRODUODENOSCOPY (EGD), FLEXIBLE, TRANSORAL, DIAGNOSTIC performed by Ki Huang MD at [facility] EGD, FLEXIBLE, DIAGNOSTIC 04/11/2016 Schatzki ring, hiatal hernia, gastritis/ESOPHAGOGASTRODUODENOSCOPY (EGD), FLEXIBLE, TRANSORAL, DIAGNOSTIC performed by Ki Huang MD at [facility] EGD, FLEXIBLE, DIAGNOSTIC 01/24/2018 w/ [facility] / [facility] EGD, FLEXIBLE, DIAGNOSTIC 07/17/2018 normal biopsies/ESOPHAGOGASTRODUODENOSCOPY (EGD), FLEXIBLE, TRANSORAL, DIAGNOSTIC performed by Lopez Shi MD at [facility] EGD, FLEXIBLE, DIAGNOSTIC 07/07/2020 sm hiatal hernia / ESOPHAGOGASTRODUODENOSCOPY (EGD), FLEXIBLE, TRANSORAL, DIAGNOSTIC performed by Lopez Shi MD at [facility] EGD, FLEXIBLE, DIAGNOSTIC 09/03/2021 esophageal varices, repeat 1 yr / ESOPHAGOGASTRODUODENOSCOPY (EGD), FLEXIBLE, TRANSORAL, DIAGNOSTICperformed by Alen Garcia DO at [facility] EGD, FLEXIBLE, DIAGNOSTIC 07/06/2022 Portal hypertensive gastropathy, eso varices, mild-mod inflammation on bx / ESOPHAGOGASTRODUODENOSCOPY (EGD), FLEXIBLE, TRANSORAL, DIAGNOSTIC performed by Lopez Shi MD at [facility] EGD, W/ENDOSCOPIC US 06/26/2018 retained food, repeat study/ESOPHAGOGASTRODUODENOSCOPY (EGD), FLEXIBLE, TRANSORAL, ENDOSCOPIC ULTRASOUND performed by Lopez Shi MD at [facility] EGD, W/ENDOSCOPIC US 07/17/2018 sludge gallbladder/ESOPHAGOGASTRODUODENOSCOPY (EGD), FLEXIBLE, TRANSORAL, ENDOSCOPIC ULTRASOUND performed by Lopez Shi MD at [facility] IR BIOPSY 02/14/2022 LAPAROSCOPY; CHOLECYSTECTOMY REDUCTION OF 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 04/26/2012 Exploratory laparotomy with extensive lysis of adhesions and repair of small bowel serosal REMOVAL OF RUPTURED APPENDIX 1977 Appendectomy, Rupt Appendx+Abscess Family History Problem Relation Age of Onset Neurological Disorder Mother Parkisons Heart Disorder Father CA in 40's Stroke Father Heart failure Father Dementia Father No Known Problems Brother Current Outpatient Medications Medication Sig Dispense Refill EpiPen 2-Dave 0.3 MG/0.3ML Injection Solution Auto-injector For a severe reaction: Place orange end against the outer thigh, press firmly, hold in place for 10 seconds and go to the Emergency room. 2 Each 1 Iron (Ferrous Sulfate) 325 (65 Fe) MG Oral Tablet Take by mouth. oxyCODONE HCl 5 MG Oral Capsule (Oxy IR) Take 1 Capsule by mouth in the morning and 1 Capsule before bedtime. 30 Capsule 0 Atorvastatin Calcium 20 MG Oral Tablet (Lipitor) Take 1 Tablet by mouth in the morning. 90 Tablet 1 Diclofenac Sodium 1 % External Gel (Voltaren) Apply topically to affected area 2 times a day. Applyto area lateral to left hip 150 g 5 FLUoxetine HCl 10 MG Oral Capsule (PROzac) Take 1 Capsule by mouth in the morning. Every morning.. 90 Capsule 0 Furosemide 40 MG Oral Tablet (Lasix) Take 1 Tablet by mouth in the morning. In the morning.. 30 Tablet 1 Lactulose 10 GM/15ML Oral Solution (Constulose) Take 30 mL by mouth in the morning and 30 mL at noon and 30 mL in the evening and 30 mL before bedtime. 946 mL 5 Gabapentin 100 MG Oral Capsule (Neurontin) take 1 capsule by mouth every morning and AT NOON and BEFORE BEDTIME 90 Capsule 5 Magnesium Oxide -Mg Supplement 400 (240 Mg) MG Oral Tablet (Mag-Ox) take 1 tablet by mouth IN THE MORNING AND BEFORE BEDTIME 180 Tablet 1 Pantoprazole Sodium 40 MG Oral Tablet Delayed Release (Protonix) Take 1 Tablet by mouth in the morning and 1 Tablet before bedtime. 180 Tablet 1 Spironolactone 25 MG Oral Tablet (Aldactone) Take 1 Tablet by mouth in the morning. 90 Tablet 0 traZODone HCl 50 MG Oral Tablet (Desyrel) Take 2 Tablets by mouth at bedtime. 180 Tablet 1 rifAXIMin 550 MG Oral Tablet (Xifaxan) take 1 tablet by mouth IN THE MORNING then take 1 tablet by mouth BEFORE BEDTIME 60 Tablet 2 Vitamin A & D [address] UNIT Oral Tablet Take by mouth. oxyCODONE HCl 5 MG Oral Tablet (Oxy IR) Take 1 Tablet by mouth every 12 hours as needed for Pain, Severe. 30 Tablet 0 Current Facility-Administered Medications Medication Dose Route Frequency Provider Last Rate Last Admin albuterol sulfate (PROVENTIL) (2.5 MG/3ML) 0.083% inhalation solution 2.5 mg 2.5 mg Nebulizer Q4H PRN Toby Paz MD 2.5 mg at 05/10/18 1241 Review of patient's allergies indicates: Allergen Reactions Other Allergy (See Comments) Anaphylaxis Bee stings- swelling Physical Exam: vitals: BP 118/76 (BP Site: Left Arm, BP Position: Sitting, BP Cuff Size: Regular) | Pulse 92 | Temp 36.6 C (97.9 F) (Tympanic) | Ht 1.753 m (5' 9") | Wt 83.4 kg (183 lb 14.4 oz) | SpO2 98% | BMI27.16 kg/m | BSA 2.02 m GENERAL: Well developed and well nourished in no acute distress. No notable sarcopenia. SKIN: No rashes, ulcers, jaundice. + spider angiomas HEENT: Normocephalic, mild scleral icterus NECK: Supple LUNGS: Clear to auscultation bilaterally, no respiratory distress or accessory muscles used. HEART: Regular rate & rhythm, no murmurs, rubs, or gallops present ABDOMEN: Normal bowel sounds, soft and nontender, no masses or hepatosplenomegaly. No appreciable ascites or fluid wave. EXTREMITIES: No palmar erythema, no lower extremity edema. NEURO: No lateralizing findings. Sensory/Motor grossly normal. No asterixis present on exam. Recent Labs: Reviewed MELD 3.0: 13 at 03/31/2023 10:15 AM [...] years Sex: Male at 03/31/2023 10:15 AM Recent Imaging Studies: Reviewed MRI liver 10/18/2022: IMPRESSION: 1. Morphological changes of cirrhosis with portal hypertension [...] 3. Additional findings and details as above. Recent Endoscopic Procedures: Reviewed Assessment and plan: Surgical risk assessment using the Byrne Risk calculator in patient's with cirrhosis: At this time patient is as optimized as he will be for any surgery. Certainly any surgery runs the risk of hepatic decompensation but his MELD is low and he is currently as optimized as he will be. His ascites has been well controlled on diuretics. Recommend continuing lactulose and rifaximin titrating for 3-4 soft bowel movements daily after surgery and continuing diuretics to prevent ascites accumulation as I am sure he will receive fluids during surgery. He should follow a low salt diet no more than 2 grams daily. A hip replacement is considered a low risk surgery and I am ok with him proceeding with this surgery as his quality of life is severely affected due to his hip pain. He is in a wheelchair today due to the pain and limited mobility of his hips. We discussed risks after surgeryinclude worsening hepatic decompensation, worsening hepatic encephalopathy, ascites/LE swelling, renal failure, poor wound healing, and even . He will continue to follow up with Keyanna Gordon NP his general GI provider. Marilou Andrews, Gastroenterology and Hepatology I spent a total of 40 minutes on the date of service in review of patient's record, and previously obtained information in person and appropriate medical visit, discussion and education of plan, withpatient and/or caregiver, placing orders for tests/referral/procedures as medically necessary and documentation of pertinent clinical information in patient's medical records for their visit today. documented in this encounter Nursing Notes * Dontae Owen CMA - 04/06/2023 1:53 PM EST Chief Complaint Patient presents with NEW PATIENT Cirrhosis Mauro Liu is a 57 year old male who presents today for cirrhosis. He denies any GI symptoms. documented in this encounter Plan of Treatment Upcoming Encounters Date Type Department Care Team (Late st Contact Info) Description 07/27/2023 9:30 AM EDT Procedure Only Endoscopy, [facility] [address] [place] [address] Trish Villatoro MD [address] [place] [address] 08/07/2023 3:00 PM EDT Office Visit Gastroenterology, [facility] [address] [place] [address] Keyanna Gordon CRNP [address] [place] [address] Scheduled Procedures Name Priority Associated Diagnoses Date/Ti me COLONOSCOPY FLEXIBLE PROXIMAL DIAGNOSTIC Recall History of colon polyps Scheduled Referrals Name Type Priority Associated Diagnoses Orde r Schedule HEPATOLOGY REFERRAL OP Referral Within 30 days (routine) Alcoholic cirrhosis of liver with ascites (HCC) Ordered: 12/29/2022 Health Maintenance Due Date Last Done Comments [...] as of this encounter Visit Diagnoses Diagnosis Alcoholic cirrhosis of liver with ascites (HCC)- Primary Alcoholic cirrhosis of liver documented in this encounter Additional Health Concerns Infection Onset Date Last Indicated Resolved Time Hepatitis A 08/23/2021 08/23/2021 documented as of this encounter Care Teams Risk Lead Relationship Specialty Start Date End Date Toby Paz MD [address] [place] [address] PCP - General Family Medicine 11/25/14 documented as of this encounter
--- OUTSIDE RECORDS SUMMARY | 2023-05-14 06:39 | External Medical Summary | Summary of Care ---
Author Name Unknown Organization [facility] Address [address] [place] [address] Phone [phone] Care Team Providers Care Cell Maker Name Role Phone Toby Paz MD Primary Care Provider +1- [phone] Reason for Visit * Reason Comments Outpatient Testing Encounter Details Date Type Department Care Team (Late st Contact Info) Description 04/20/2023 10:20 AM EST Laboratory Laboratory, [place] [address] [place] [address] [place] [address] [place] [address] Thrombocytopenia (HCC) Allergies Active Allergy Reactions Criticality [...] 2 03/29/2023 Active Vitamin A & D [address] UNIT Oral Tablet Take by mouth. 0 [...] ischemic heart disease 002 Overview: father had WI's in 40's Gastroesophageal reflux disease with esophagitis documented as of this encounter (statuses as of 04/20/2023) Resolved Problems Problem Noted Date Diagnosed Date Resolved Date Facial swelling 06/09/2017 08/07/2019 Urticaria 06/09/2017 08/07/2019 Intestinal obstruction 05/09/201203/02 CLASSICAL MIGRAINE WITHOU ME NTION OF INTRACTABLE MIGRAINE 11/29/2001 08/07/2019 Undiagnosed cardiac murmurs 11/29/2001 03/02/2017 Overview: Not [place] on 11/29/01 documented as of this encounter (statuses as of 04/20/2023) Immunizations Name Administration Dates Next Due HEP A - Hepatitis A (Adult > 18 yrs) 06/06/2020 Pneumococcal Conjugate Vacci ne, 20-valent ([id number]) 06/24/2022 Seasonal Influenza Virus Vac cine, Unspecified [...] 07/27/2023 9:30 AM EDT Procedure Only Endoscopy, [place] [address] [place] [address] Trish Villatoro MD [address] [place] [address] 08/07/2023 3:00 PM EDT Office Visit Gastroenterology, [facility] [address] [place] [address] Keyanna Gordon CRNP [address] [place] [address] Pending Results Name Type Priority Associated Diagnoses Date /Time CBC WITH WBC DIFFERENTIAL Lab Routine Thrombocytopenia (HCC) 04/20/2023 10:18 AM EST CBC Lab Routine Thrombocytopenia (HCC) 04/20/2023 10:18 AM EST DIFFERENTIAL, AUTOMATED Lab Routine Thrombocytopenia (HCC) 04/20/2023 10:18 AM EST Scheduled Procedures Name Priority Associated Diagnoses Date/Ti [...] of this encounter Visit Diagnoses Diagnosis Thrombocytopenia (HCC) Thrombocytopenia, unspecified documented in this encounter Care Teams Cell Maker Relationship Specialty Start Date End Date Toby Paz MD [address] [place] [address] PCP - General Family Medicine 11/25/14 documented as of this encounter
--- OUTSIDE RECORDS SUMMARY | 2023-05-14 06:39 | External Medical Summary ---
Author Name Unknown Address Unknown Organization K01:[facility] - [address] [place] [address] Laboratory Report Ordering Provider Test Date Status AIDEN SMITH 04/14/2023 11:09:03 Final Observation Date Value Abnormality Reference (Units ) Status Pathologist review of results 04/14/2023 11:09:03 Results reviewed by pathologist. Final Performing Location [facility] - [address] [place] [address]
--- OUTSIDE RECORDS SUMMARY | 2023-05-14 06:39 | External Medical Summary | Summary of Care ---
Author Name Unknown Organization [facility] Address [address] [place] [place] [address] Phone [phone] Care Team Providers Care Rubber Mold Maker Name Role Phone Toby Paz MD Primary Care Provider +1- [phone] Reason for Visit * Reason Onset Date Comments Med Request 04/04/2023 Encounter Details Date Type Department Care Team (Late st Contact Info) Description 04/04/2023 Telephone [facility] [address] [place] [address] Toby Paz MD [address] [place] [address] Med Request Allergies Active Allergy Reactions Criticality Noted [...] 2 03/29/2023 Active Vitamin A & D [address] UNIT Oral Tablet Take by mouth. 0 [...] Undiagnosed cardiac murmurs 11/29/2001 03/02/2017 Overview: Not [place] on 11/29/01 documented as of this encounter (statuses as of 04/04/2023) Immunizations Name Administration Dates Next Due HEP A - Hepatitis A (Adult > 18 yrs) 06/06/2020 Pneumococcal Conjugate Vacci ne, 20-valent ([id number]) 06/24/2022 Seasonal Influenza Virus Vac cine, Unspecified [...] encounter Miscellaneous Notes * Telephone Encounter - Chelle Brewster LPN - 04/04/2023 10:05 AM EST See refill encounter * Telephone Encounter - Maylin Aldana OSA - 04/04/2023 7:46 AM EST Pt is out of refills for his Oxycodone. Pt is requesting a refill. documented in this encounter Plan of Treatment Upcoming Encounters Date Type Department Care Team (Late st Contact Info) Description 04/04/2023 2:40 PM EST Office Visit [facility] [address] [place] [address] Rao Ochoa MD [address] [place] [address] 04/06/2023 2:00 PM EST Office Visit Hepatology, [facility] [address] [place] [address] Marilou Andrews DO [address] [place] [address] 07/27/2023 9:30 AM EDT Procedure Only Endoscopy, [facility] [address] [address] Trish Villatoro MD [address] [place] [address] Scheduled Procedures Name Priority Associated Diagnoses Date/Ti [...] Not on filedocumented as of this encounter Additional Health Concerns Infection Onset Date Last Indicated Resolved Time Hepatitis A 08/23/2021 08/23/2021 documented as of this encounter Care Teams Rubber Mold Maker Relationship Specialty Start Date End Date Toby Paz MD [address] [place], [place] [phone] PCP - General Family Medicine 11/25/14 documented as of this encounter
--- OUTSIDE RECORDS SUMMARY | 2023-05-14 06:39 | External Medical Summary ---
Author Name Unknown Address Unknown Organization K01:[facility] - [address] [facility] [place] [address] Laboratory Report Ordering Provider Test Date Status AIDEN SMITH 04/14/2023 11:09:03 Final Observation Date Value Abnormality Reference (Units ) Status SYNC LEUKOCYTES IN BLOOD BY AUTOMATED COUNT 04/14/2023 11:09:03 8.46 4.00-10.80 (K/uL) Final Neutrophils/100 leukocytes in Blood by Manual count 04/14/2023 11:09:03 59.0 40.0-75.0 (%) Final Lymphocytes/100 leukocytes in Blood by Manual count 04/14/2023 11:09:03 23.0 18.0-42.0 (%) Final Monocytes/100 leukocytes in Blood by Manual count 04/14/2023 11:09:03 9.0 1.0-11.0 (%) Final Eosinophils/100 leukocytes in Blood by Manual count 04/14/2023 11:09:03 8.0 Above high normal 0.0-6.0 (%) Final Basophils/100 leukocytes in Blood by Manual count 04/14/2023 11:09:03 1.0 0.0-2.0 (%) Final Neutrophils [#/volume] in Blood by Manual count 04/14/2023 11:09:03 4.99 1.80-7.70 (K/uL) Final Lymphocytes [#/volume] in Blood by Manual count 04/14/2023 11:09:03 1.95 1.00-4.80 (K/uL) Final Monocytes [#/volume] in Blood by Manual count 04/14/2023 11:09:03 0.76 0.00-1.10 (K/uL) Final Eosinophils [#/volume] in Blood by Manual count 04/14/2023 11:09:03 0.68 0.00-0.70 (K/uL) Final Basophils [#/volume] in Blood by Manual count 04/14/2023 11:09:03 0.08 0.00-0.20 (K/uL) Final Platelets agranular [Presence] in Blood by Light microscopy 04/14/2023 11:09:03 Present Abnormal None Seen Final Performing Location [facility] - [address] [place] [facility] [address]
--- OUTSIDE RECORDS SUMMARY | 2023-05-14 06:39 | External Medical Summary | Summary of Care ---
Author Name Unknown Organization [facility] Address [address] [place] [address] Phone [phone] Care Team Providers Care Executive Administrative Asst Name Role Phone Toby Paz MD Primary Care Provider +1- [phone] Reason for Visit * Reason Onset Date Comments Fax 04/19/2023 Encounter Details Date Type Department Care Team (Late st Contact Info) Description 04/19/2023 Telephone [facility] [address] [place] [address] Toby Paz MD [address] [place] [address] Fax Allergies Active Allergy Reactions Criticality Noted Date Comments Other Allergy (See Comments) Anaphylaxis High 06/21/2018 Bee stings- swelling documented as of this encounter (statuses as of 04/19/2023) Medications Medication Sig Dispensed Refills Start Date [...] 2 03/29/2023 Active Vitamin A & D [address] UNIT Oral Tablet Take by mouth. 0 [...] as of this encounter (statuses as of 04/19/2023) Active Problems Problem Noted Date Diagnosed Date [...] as of this encounter (statuses as of 04/19/2023) Resolved Problems Problem Noted Date Diagnosed Date Resolved Date Facial swelling 06/09/2017 08/07/2019 Urticaria 06/09/2017 08/07/2019 Intestinal obstruction 05/09/201203/02 CLASSICAL MIGRAINE WITHOU ME NTION OF INTRACTABLE MIGRAINE 11/29/2001 08/07/2019 Undiagnosed cardiac murmurs 11/29/2001 03/02/2017 Overview: Not [place] on 11/29/01 documented as of this encounter (statuses as of 04/19/2023) Immunizations Name Administration Dates Next Due HEP A - Hepatitis A (Adult > 18 yrs) 06/06/2020 Pneumococcal Conjugate Vacci ne, 20-valent ([id number]) 06/24/2022 Seasonal Influenza Virus Vac cine, Unspecified [...] encounter Miscellaneous Notes * Telephone Encounter - Dayana Menjivar LPN - 04/19/2023 1:07 PM EST Labs were faxed to [place] at Pt made aware * Telephone Encounter - Jeni Augustin OSA - 04/19/2023 10:30 AM EST Caller requesting the following information to be faxed: Name/Company of caller: [employer] Information requested to be faxed: lab results 04/14/2022 Fax number: Attention to Name/Company: [employer]ve [employer] Any additional information?: patient said that she left a blue piece of paper with the girl who erasmo the labs on the 12 and on there was the fax number to the [facility], where the results needed to be fax. documented in this encounter Plan of Treatment Upcoming Encounters Date Type Department Care Team (Late st Contact Info) Description 07/27/2023 9:30 AM EDT Procedure Only Endoscopy, [facility] [address] [place] [address] Trish Villatoro MD [address] [place] [place] [address] 08/07/2023 3:00 PM EDT Office Visit Gastroenterology, [facility] [address] [place] [place] [address] Keyanna Gordon CRNP [address] [place] [address] Scheduled Procedures Name Priority Associated Diagnoses Date/Ti [...] filedocumented as of this encounter Care Teams Executive Administrative Asst Relationship Specialty Start Date End Date Toby Paz MD [address] [facility] [place] [address] PCP - General Family Medicine 11/25/14 documented as of this encounter
--- OUTSIDE RECORDS SUMMARY | 2023-05-14 06:39 | External Medical Summary | Summary of Care ---
Author Name Unknown Organization [facility] Address [address] [place] [address] Phone [phone] Care Team Providers Care Moss Bleacher Name Role Phone Toby Paz MD Primary Care Provider +1- [phone] Reason for Visit * Reason Onset Date Comments Fax 04/21/2023 Encounter Details Date Type Department Care Team (Late st Contact Info) Description 04/21/2023 Telephone [facility] [address] [place] [address] Toby Paz MD [address] [place] [address] Fax Allergies Active Allergy Reactions Criticality Noted Date Comments Other Allergy (See Comments) Anaphylaxis High 06/21/2018 Bee stings- swelling documented as of this encounter (statuses as of 04/21/2023) Medications Medication Sig Dispensed Refills Start Date [...] 2 03/29/2023 Active Vitamin A & D [address] UNIT Oral Tablet Take by mouth. 0 [...] as of this encounter (statuses as of 04/21/2023) Active Problems Problem Noted Date Diagnosed Date [...] ischemic heart disease 002 Overview: father had [place]'s in 40's Gastroesophageal reflux disease with esophagitis documented as of this encounter (statuses as of 04/21/2023) Resolved Problems Problem Noted Date Diagnosed Date Resolved Date Facial swelling 06/09/2017 08/07/2019 Urticaria 06/09/2017 08/07/2019 Intestinal obstruction 05/09/201203/02 CLASSICAL MIGRAINE WITHOU ME NTION OF INTRACTABLE MIGRAINE 11/29/2001 08/07/2019 Undiagnosed cardiac murmurs 11/29/2001 03/02/2017 Overview: Not [place] on 11/29/01 documented as of this encounter (statuses as of 04/21/2023) Immunizations Name Administration Dates Next Due HEP A - Hepatitis A (Adult > 18 yrs) 06/06/2020 Pneumococcal Conjugate Vacci ne, 20-valent ([id number]) 06/24/2022 Seasonal Influenza Virus Vac cine, Unspecified [...] encounter Miscellaneous Notes * Telephone Encounter - Tata Lopez LPN - 04/21/2023 11:15 AM EST Lab results faxed 04/21/2023 * Telephone Encounter - Carol Ricks OSA - 04/21/2023 10:10 AM EST Caller requesting the following information to be faxed: Name/Company of caller: [employer] Information requested to be faxed: lab work from 04-20-23 Fax number: [phone] Attention to Name/Company: Attn: [employer] Any additional information?: documented in this encounter Plan of Treatment Upcoming Encounters Date Type Department Care Team (Late st Contact Info) Description 07/27/2023 9:30 AM EDT Procedure Only Endoscopy, [facility] [address] [facility] [address] [address] Trish Villatoro MD [address] [place] [address] 08/07/2023 3:00 PM EDT Office Visit Gastroenterology, [facility] [address] [place] [address] Keyanna Gordon CRNP [address] [place] [address] Scheduled Procedures Name Priority Associated Diagnoses Date/Ti [...] filedocumented as of this encounter Care Teams Moss Bleacher Relationship Specialty Start Date End Date Toby Paz MD [address] [place] [address] PCP - General Family Medicine 11/25/14 documented as of this encounter
--- OUTSIDE RECORDS SUMMARY | 2023-05-14 06:39 | External Medical Summary | Summary of Care ---
Author Name Unknown Organization [facility] [address] [facility] [address] Phone [phone] Care Team Providers Care Employee Development Manager Name Role Phone Toby Paz MD Primary Care Provider +1- [phone] Encounter Details Date Type Department Care Team (Late st Contact Info) Description 04/18/2023 Orders Only PATIENT PORTAL DO NOT DELETE THIS DEPT USED BY [place] [address] Allergies Active Allergy Reactions Criticality Noted Date Comments Other Allergy (See Comments) Anaphylaxis High 06/21/2018 Bee stings- swelling documented as of this encounter (statuses as of 04/18/2023) Medications Medication Sig Dispensed Refills Start Date [...] 2 03/29/2023 Active Vitamin A & D [address] UNIT Oral Tablet Take by mouth. 0 [...] as of this encounter (statuses as of 04/18/2023) Active Problems Problem Noted Date Diagnosed Date [...] ischemic heart disease 002 Overview: father had [place]'s in 40's Gastroesophageal reflux disease with esophagitis documented as of this encounter (statuses as of 04/18/2023) Resolved Problems Problem Noted Date Diagnosed Date Resolved Date Facial swelling 06/09/2017 08/07/2019 Urticaria 06/09/2017 08/07/2019 Intestinal obstruction 05/09/201203/02 CLASSICAL MIGRAINE WITHOU ME NTION OF INTRACTABLE MIGRAINE 11/29/2001 08/07/2019 Undiagnosed cardiac murmurs 11/29/2001 03/02/2017 Overview: Not [place] on 8/29/02 documented as of this encounter (statuses as of 04/18/2023) Immunizations Name Administration Dates Next Due HEP A - Hepatitis A (Adult > 18 yrs) 06/06/2020 Pneumococcal Conjugate Vacci ne, 20-valent ([id number]) 06/24/2022 Seasonal Influenza Virus Vac cine, Unspecified [...] Procedure Only Endoscopy, [facility] [address] [place] [address] Trish Villatoro MD [address] [place] [address] 08/07/2023 3:00 PM EDT Office Visit Gastroenterology, [facility] [address] [place] [address] Keyanna Gordon CRNP [address] [place] [address] Scheduled Procedures Name Priority Associated Diagnoses Date/Ti [...] filedocumented as of this encounter Care Teams Employee Development Manager Relationship Specialty Start Date End Date Toby Paz MD [address] [place] [address] PCP - General Family Medicine 11/25/14 documented as of this encounter
--- OUTSIDE RECORDS SUMMARY | 2023-05-14 06:40 | External Medical Summary | Summary of Care ---
Author Name Unknown Organization [facility] Address [address] [facility] [address] Phone [phone] Care Team Providers Care Foot Roentgenologist Name Role Phone Toby Yarbrough MD Primary Care Provider +1- [phone] Reason for Visit * Reason Comments Follow Up Alcoholic cirrhosis, Encounter Details Date Type Department Care Team (Late st Contact Info) Description 03/31/2023 9:30 AM EST Office Visit Gastroenterology, [facility] [address] [place] [address] Keyanna Gordon CRNP [address] [place] [address] Alcoholic cirrhosis of liver with ascites (HCC)* [...] 2 03/29/2023 Active Vitamin A & D [address] UNIT Oral Tablet Take by mouth. 0 [...] Undiagnosed cardiac murmurs 11/29/2001 03/02/2017 Overview: Not [place] on 11/29/01 documented as of this encounter (statuses as of 03/31/2023) Immunizations Name Administration Dates Next Due HEP A - Hepatitis A (Adult > 18 yrs) 06/06/2020 Pneumococcal Conjugate Vacci ne, 20-valent ([id number]) 06/24/2022 Seasonal Influenza Virus Vac cine, Unspecified [...] Notes * Keyanna Gordon CRNP - 03/31/2023 9:26 [...] is scheduled for hip replacement surgery at [facility] on 04/10/22. He has an appt w [...] healing. Complications: Hepatic Encephalopathy: Was hospitalized at [facility] on two occasions previously And [facility] inNov 2021 for hep enceph. Maintained on Rifaximin 550mg BID and Lactulose 10gm/30ml taking 30ml QID regularly. EV EGD July 2022: Grade I EV, PHG Ascites: furosemide 20 mg 2 pills daily (per pt's ), spironolactone 25 mg once daily. (verifiedby his ). US at [facility] in May 2022 w very [...] Description 04/04/2023 2:40 PM EST Office Visit [facility] [address] [facility] [address] Rao Ochoa MD [address] [facility], [place] [address] 04/06/2023 2:00 PM EST Office Visit Hepatology, [facility] [address] [place] [address] Marilou Andrews DO [address] [place] [address] 07/27/2023 9:30 AM EDT Procedure Only Endoscopy, [facility] [address] [place] [address] Trish Villatoro MD [address] [place] [address] Pending Results Name Type Priority Associated Diagnoses [...] seconds 03/31/2023 10:51 AM EST LAB[facility] 57-10 INR 1.5(H) 0.8 - 1.2 03/31/2023 10:51 AM EST [facility]-10 Blood Venous blood specimen / Unknown Venipuncture / Unknown 03/31/2023 10:15 AM EST 03/31/2023 10:15 AM EST Narrative [facility] 57-10 - 03/31/2023 10:51 AM EST Warfarin Therapy INR: 2.0-3.0 conventional anticoagulation INR: 2.5-3.5 high intensity anticoagulation Keyanna ZUÑIGA LAB BLOOD ORDERABL ES LABORATORY [place] [facility] 57-10 [address] [facility] [place] [address] * (ABNORMAL) COMPREHENSIVE METABOLIC PANEL (03/31/2023 10:15 [...] 10:15 AM EST 03/31/2023 10:15 AM EST Krystalkaris Fox Evan ZUÑIGA LAB BLOOD ORDERABL ES LABORATORY [facility] 57-10 [address] [facility] [place] [address] documented in this encounter Visit Diagnoses Diagnosis Alcoholic cirrhosis of liver with ascites (HCC)- Primary Alcoholic cirrhosis of liver documented in this encounter Additional Health Concerns Infection Onset Date Last Indicated Resolved Time Hepatitis A 08/23/2021 08/23/2021 documented as of this encounter Care Teams Foot Roentgenologist Relationship Specialty Start Date End Date Toby Yarbrough MD [address] [facility] [place] [address] PCP - General Family Medicine 11/25/14 documented as of this encounter"
--- OUTSIDE RECORDS SUMMARY | 2023-05-14 06:40 | External Medical Summary | Summary of Care ---
Author Name Unknown Organization [facility] Address [address] [facility] [address] Phone [phone] Care Team Providers Care Hospice Fellow Name Role Phone Toby Paz MD Primary Care Provider +1- [phone] Reason for Visit * Reason Onset Date Comments Advice 03/21/2023 Encounter Details Date Type Department Care Team (Late st Contact Info) Description 03/21/2023 Telephone Gastroenterology, [facility] [address] [place] [address] Keyanna Gordon CRNP [address] [place] [address] Advice Allergies Active Allergy Reactions Criticality Noted Date Comments Other Allergy (See Comments) Anaphylaxis High 06/21/2018 Bee stings- swelling documented as of this encounter (statuses as of 03/23/2023) Medications Medication Sig Dispensed Refills Start Date End Date Status EpiPen 2-Dave 0.3 MG/0.3ML Injection Solution Auto-injector For a severe reaction: Place orange end against the outer thigh, press firmly, hold in place for 10 seconds and go to the Emergency room. 2 Each 1 07/20/2020 Active Spironolactone 25 MG Oral Tablet (Aldactone) Take 1 Tablet by mouth in the morning. 360 Tablet 0 04/29/2022 Active Gabapentin 100 MG Oral Capsule (Neurontin)Indicati ons:Complaint of paresthesia take 1 capsule by mouth every morning and AT NOON and BEFORE BEDTIME 90 Capsule 5 06/14/2022 Active Lactulose 10 GM/15ML Oral Solution (Constulose)Indicat ions:Hyperammonemia (HCC) Take 30 mL by mouth in the morning and 30 mL at noon and 30 mL in the evening and 30 mL before bedtime. 946 mL 5 07/19/2022 Active FLUoxetine HCl 10 MG Oral Capsule (PROzac) take 1 capsule by mouth every morning 30 Capsule 3 11/28/2022 Active Xifaxan 550 MG Oral Tablet (rifAXIMin) take 1 tablet by mouth IN THE MORNING then take 1 tablet by mouth BEFORE BEDTIME 60 Tablet 1 11/28/2022 Active Pantoprazole Sodium 40 MG Oral Tablet Delayed Release (Protonix)Indicatio ns:Gastroesophageal reflux disease take 1 tablet by mouth twice a day 180 Tablet 3 11/28/2022 Active Diclofenac Sodium 1 % External Gel (Voltaren) Apply topically to affected area 2 times a day. Apply to area lateral to left hip 150 g 6 12/08/2022 Active Additional Information Patient not taking.Reported on 01/17/2023 Iron (Ferrous Sulfate) 325 (65 Fe) MG Oral Tablet Take by mouth. 0 Ac tive traZODone HCl 50 MG Oral Tablet (Desyrel)Indication s:Primary insomnia Take 2 Tablets by mouth at bedtime. 60 Tablet 5 02/06/2023 Active Atorvastatin Calcium 20 MG Oral Tablet (Lipitor)Indication s:Dyslipidemia take 1 tablet by mouth once daily 90 Tablet 2 02/24/2023 Active Magnesium Oxide -Mg Supplement 400 (240 Mg) MG Oral Tablet (Mag-Ox) take 1 tablet by mouth IN THE MORNING AND BEFORE BEDTIME 60 Tablet 5 02/27/2023 Active oxyCODONE HCl 5 MG Oral Capsule (Oxy IR)Indications:Avas cular necrosis of bone of hip, left (HCC) Take 1 Capsule by mouth in the morning and 1 Capsule before bedtime. 30 Capsule 0 03/01/2023 Active Furosemide 40 MG Oral Tablet (Lasix) take 1 tablet by mouth every morning 30 Tablet 2 03/03/2023 Active oxyCODONE HCl 5 MG Oral Tablet (Oxy IR)Indications:Hip pain, left,Avascular necrosis of bone of hip, unspecified laterality (HCC) Take 1 Tablet by mouth every 12 hours as needed for Pain, Severe. 30 Tablet 0 03/20/2023 Active Hospital, Clinic, or Other Facility Administered Medication Ordered Dose Route Frequency Start Date End Date Status albuterol sulfate (PROVENTIL) (2.5 MG/3ML) 0.083% inhalation solution 2.5 mgIndications:SOB (shortness of breath) 2.5 mg NEBULIZER Q4H PRN 05/10/2018 Act guzman documented as of this encounter (statuses as of 03/23/2023) Active Problems Problem Noted Date Diagnosed Date [...] ischemic heart disease 002 Overview: father had [place]'s in 40's Gastroesophageal reflux disease with esophagitis documented as of this encounter (statuses as of 03/23/2023) Resolved Problems Problem Noted Date Diagnosed Date Resolved Date Facial swelling 06/09/2017 08/07/2019 Urticaria 06/09/2017 08/07/2019 Intestinal obstruction 05/09/201203/02 CLASSICAL MIGRAINE WITHOU ME NTION OF INTRACTABLE MIGRAINE 11/29/2001 08/07/2019 Undiagnosed cardiac murmurs 11/29/2001 03/02/2017 Overview: Not [place] on 11/29/01 documented as of this encounter (statuses as of 03/23/2023) Immunizations Name Administration Dates Next Due HEP A - Hepatitis A (Adult > 18 yrs) 06/06/2020 Pneumococcal Conjugate Vacci ne, 20-valent ([id number]) 06/24/2022 Seasonal Influenza Virus Vac cine, Unspecified [...] encounter Miscellaneous Notes * Telephone Encounter - Keyanna Gordon CRNP - 03/23/2023 12:49 PM EST Using his most recent labs: Byrne surgical risk score is as follows: Mortality at 7 days 3.3% 30 days 12.9 % 90 days 20% 1 year 35% * Telephone Encounter - Keyanna Gordon CRNP - 03/23/2023 12:45 PM EST This number goes to voice mail. I left my cell phone and encouraged Camille to call me. * Telephone Encounter - Linnette Christianson OSA - 03/21/2023 2:09 PM EST Received call from [place] from [facility] wanting to speak with Keyanna Gordon regarding pt's upcoming surgery. Keyanna when you get a chance can you call Camille at [phone]. Thanks documented in this encounter Plan of Treatment Upcoming Encounters Date Type Department Care Team (Late st Contact Info) Description 04/04/2023 2:40 PM EST Office Visit [facility] [address] [facility] [facility] [address] Rao Ochoa [facility] [address] [facility] [address] 04/11/2023 3:00 PM EST Office Visit Gastroenterology, [facility] [address] [facility] [place] [address] Keyanna Gordon CRNP [address] [place] [address] 05/11/2023 2:40 PM EST Office Visit Hepatology, [facility] [address] [place] [address] Marilou Andrews DO [address] [place] [address] Scheduled Procedures Name Priority Associated Diagnoses Date/Ti me COLONOSCOPY FLEXIBLE PROXIMAL DIAGNOSTIC Recall History of colon polyps Health Maintenance Due Date Last Done Comments Hepatitis B (1 of 3 - 3-dose series) 1965 COVID-19 Vaccine (#1) 01/12/1965 Albumin/Creatinine Ratio 1982 Zoster Vaccines (1 of 2) 2014 Depression Screening 03/22/2023 03/22/2022 GFR 12/30/2023 12/29/2022, 10/01, 07/28/2022, Additional history exists COLONOSCOPY-EVERY 3 YRS AGES 18-100 06/30/2024 06/30/2021, 06/30/2021, 05/30/2019, Additional history exists Diabetes Screening 12/29/2025 12/29/2022, 0 11/21/2022, 11/03/2022, Additional history exists DTaP,Tdap,and Td Vaccines (2 [...] documented as of this encounter Care Teams Hospice Fellow Relationship Specialty Start Date End Date Toby Paz MD [address] [facility] [address] PCP - General Family Medicine 11/25/14 documented as of this encounter
--- OUTSIDE RECORDS SUMMARY | 2023-05-14 06:40 | External Medical Summary | Continuity of Care Document ---
Author Name Unknown Organization [facility] [address] [facility] [address] [place] [id number] Care Team Providers Care Account Services Associate Name Role Phone Toby Paz Primary Care Physician [phone] [id number]s): [facility]/21/23 - 03/21/23 [facility] [address] [facility] [address] [facility] [place] [address] [phone] Encounter Diagnosis Pre-op testing(Discharge Diagnosis) - 03/14/23 Discharge Disposition: Home or Self Care Attending Physician: MD Pamela, Jamie Merritt Allergies, Adverse Reactions, Alerts No Known Allergies Medications atorvastatin 20 mg oral tablet 1 tab, PO, Daily Start Date: 01/18/23 Status: Ordered FLUoxetine 10 mg oral capsule 1 cap, PO, Daily Start Date: 01/18/23 Status: Ordered furosemide 40 mg oral tablet 1 tab, PO, Daily Start Date: 01/18/23 Status: Ordered gabapentin 100 mg oral capsule 1 cap, PO, Daily Start Date: 01/18/23 Status: Ordered lactulose Start: 01/18/23 9:58:00 EDT, 30 mL, PO, tid Start Date: 01/18/23 Status: Ordered magnesium oxide 400 mg (241.3 mg elemental magnesium) oral tablet Start: 01/18/23 9:57:00 EDT, 1 tab, PO, qAM Start Date: 01/18/23 Status: Ordered oxyCODONE 5 mg oral tablet 1 tab, PO, bid, Refills: 0, PRN: as needed for pain Start Date: 01/18/23 Status: Ordered pantoprazole 40 mg oral delayed release tablet 1 tab, PO, Daily Start Date: 01/18/23 Status: Ordered spironolactone Start: 01/18/23 9:57:00 EDT, 25 mg =, PO, qAM Start Date: 01/18/23 Status: Ordered traZODone 50 mg oral tablet Start: 03/21/23 10:40:00 EST, 2 tab, PO, qhs Start Date: 03/21/23 Status: Ordered Xifaxan 550 mg oral tablet Start: 01/18/23 9:57:00 EDT, 1 tab, PO, Daily Start Date: 01/18/23 Status: Ordered Mental Status 03/21/23 Barriers to Learning one year None evide nt Mandatory Health Literacy Documentation Yes Health Literacy Communication Barriers N ever Primary Language [place] Problem List Diagnosis Diagnosis Type Effective Dates Health Status Cl inical Service Informant Pre-op testing Discharge Diagnosis 03/14/23 Non-Specified Procedures Procedure Date Related Diagnosis Body Site Status Cholecystectomy 2015 Completed Bowel resection s/t obstruction 2013 Completed Appendectomy as teenager Completed Colonoscopy Completed Endoscopy Completed Results Orders for Microbiology Reports Name Date Nasal Culture (THROAT/NASAL CULTURE) Microbiology Reports TEST:Thr/Nasal.Cx STATUS:Auth (Verified) BODY SITE: SOURCE:Nasal COLLECTED DATE/TIME:03/21/23 9:20 AM Culture NO STAPHYLOCOCCUS AUREUS ISOLATED Social History Social History Type Response Smoking Status Former Smoker, quit > 1 yr Sex Male Patient Care team information Care Team Personnel Name: MD Paz Brett R Position: Referring DIRECT Member Role: Primary Care Provider Address: Address: [address] [place] [address] [place] Care Team Related Persons Name: MALCOM BURDEN Address: home [address] [place] [address] [place] [id number]
--- OUTSIDE RECORDS SUMMARY | 2023-05-14 06:40 | External Medical Summary | Summary of Care ---
Author Name Unknown Organization [facility] Address [address] [place] [address] Phone [phone] Care Team Providers Care Weight Shifter Name Role Phone Toby Paz MD Primary Care Provider +1- [phone] Reason for Visit * Reason Onset Date Comments Medication Question 03/29/2023 Encounter Details Date Type Department Care Team ([facility] st Contact Info) Description 03/29/2023 Telephone [facility] [address] [place] [address] Toby Paz MD [address] [place] [address] Medication Question Allergies Active Allergy Reactions Criticality Noted Date Comments Other Allergy (See Comments) Anaphylaxis High 06/21/2018 Bee stings- swelling documented as of this encounter (statuses as of 03/29/2023) Medications Medication Sig Dispensed Refills Start Date [...] oxyCODONE HCl 5 MG Oral Capsule (Oxy IR)Indications:Av ascular necrosis of bone of hip, left (HCC) Take 1 Capsule by mouth in the morning and 1 Capsule before bedtime. 30 Capsule 0 03/01/2023 Active oxyCODONE HCl 5 MG Oral Tablet (Oxy IR)Indications:Hi p pain, left,Avascular necrosis of bone of hip, unspecified laterality (HCC) Take 1 Tablet by mouth every 12 hours as needed for Pain, Severe. 30 Tablet 0 03/20/2023 Active Atorvastatin Calcium 20 MG Oral Tablet (Lipitor)Indicati ons:Dyslipidemia Take 1 Tablet by mouth in the [...] 03/29/2023 Active Lactulose 10 GM/15ML Oral Solution (Constulose)Indic ations:Hyperammon emia (HCC) Take 30 mL by mouth in the morning and 30 mL at noon and 30 mL in the evening and 30 mL before bedtime. 946 mL 5 03/29/2023 Active Gabapentin 100 MG Oral Capsule (Neurontin)Indica tions:Complaint of paresthesia take 1 capsule by mouth every morning and AT NOON and BEFORE BEDTIME 90 Capsule 5 03/29/2023 Active Magnesium Oxide -Mg Supplement 400 (240 Mg) MG Oral Tablet (Mag-Ox) take 1 tablet by mouth IN THE MORNING AND BEFORE BEDTIME 180 Tablet 1 03/29/2023 Active Pantoprazole Sodium 40 MG Oral Tablet Delayed Release (Protonix)Indicat ions:Gastroesopha geal reflux disease Take 1 Tablet by mouth in the morning and 1 Tablet before bedtime. 180 Tablet 1 03/29/2023 Active Spironolactone 25 MG Oral Tablet (Aldactone) Take 1 Tablet by mouth in the morning. 90 Tablet 0 03/29/2023 Active traZODone HCl 50 MG Oral Tablet (Desyrel)Indicati ons:Primary insomnia Take 2 Tablets by mouth at bedtime. 180 Tablet 1 03/29/2023 Active rifAXIMin 550 MG Oral Tablet (Xifaxan) take 1 tablet by mouth IN THE MORNING then take 1 tablet by mouth BEFORE BEDTIME 60 Tablet 2 03/29/2023 Active Spironolactone 25 MG Oral Tablet (Aldactone) Take 1 Tablet by mouth in the morning. 360 Tablet 0 04/29/2022 03/29/2023 Discontinue d(Refill) Gabapentin 100 MG Oral Capsule (Neurontin)Indica tions:Complaint of paresthesia take 1 capsule by mouth every morning and AT NOON and BEFORE BEDTIME 90 Capsule 5 06/14/2022 03/29/2023 Discontinue d(Refill) Lactulose 10 GM/15ML Oral Solution (Constulose)Indic ations:Hyperammon emia (HCC) Take 30 mL by mouth in the morning and 30 mL at noon and 30 mL in the evening and 30 mL before bedtime. 946 mL 5 07/19/2022 03/29/2023 Discontinue d(Refill) FLUoxetine HCl 10 MG Oral Capsule (PROzac) take 1 capsule by mouth every morning 30 Capsule 3 11/28/2022 03/29/2023 Discontinue d(Refill) Xifaxan 550 MG Oral Tablet (rifAXIMin) take 1 tablet by mouth IN THE MORNING then take 1 tablet by mouth BEFORE BEDTIME 60 Tablet 1 11/28/2022 03/29/2023 Discontinue d(Refill) Pantoprazole Sodium 40 MG Oral Tablet Delayed Release (Protonix)Indicat ions:Gastroesopha geal reflux disease take 1 tablet by mouth twice a day 180 Tablet 3 11/28/2022 03/29/2023 Discontinue d(Refill) Diclofenac Sodium 1 % External Gel (Voltaren) Apply topically to affected area 2 times a day. Apply to area lateral to left hip 150 g 6 12/08/2022 03/29/2023 Discontinue d(Refill) diazePAM 5 MG Oral Tablet (Valium) Take 1 Tablet by mouth at bedtime as needed for Sleep for up to 5 days. 5 Tablet 0 12/29/2022 03/29/2023 Discontinue d(Medicatio n List Clean Up) traZODone HCl 50 MG Oral Tablet (Desyrel)Indicati ons:Primary insomnia Take 2 Tablets by mouth at bedtime. 60 Tablet 5 02/06/2023 03/29/2023 Discontinue d(Refill) Atorvastatin Calcium 20 MG Oral Tablet (Lipitor)Indicati ons:Dyslipidemia take 1 tablet by mouth once daily 90 Tablet 2 02/24/2023 03/29/2023 Discontinue d(Refill) Magnesium Oxide -Mg Supplement 400 (240 Mg) MG Oral Tablet (Mag-Ox) take 1 tablet by mouth IN THE MORNING AND BEFORE BEDTIME 60 Tablet 5 02/27/2023 03/29/2023 Discontinue d(Refill) Furosemide 40 MG Oral Tablet (Lasix) take 1 tablet by mouth every morning 30 Tablet 2 03/03/2023 03/29/2023 Discontinue d(Refill) Hospital, Clinic, or Other Facility Administered Medication Ordered Dose Route Frequency Start Date End Date Status albuterol sulfate (PROVENTIL) (2.5 MG/3ML) 0.083% inhalation solution 2.5 mgIndications:SOB (shortness of breath) 2.5 mg NEBULIZER Q4H PRN 05/10/2018 Act gzuman documented as of this encounter (statuses as of 03/29/2023) Active Problems Problem Noted Date Diagnosed Date [...] ischemic heart disease 002 Overview: father had DE's in 40's Gastroesophageal reflux disease with esophagitis documented as of this encounter (statuses as of 03/29/2023) Resolved Problems Problem Noted Date Diagnosed Date Resolved Date Facial swelling 06/09/2017 08/07/2019 Urticaria 06/09/2017 08/07/2019 Intestinal obstruction 05/09/201203/02 CLASSICAL MIGRAINE WITHOU ME NTION OF INTRACTABLE MIGRAINE 11/29/2001 08/07/2019 Undiagnosed cardiac murmurs 11/29/2001 03/02/2017 Overview: Not [place] on 11/29/01 documented as of this encounter (statuses as of 03/29/2023) Immunizations Name Administration Dates Next Due HEP A - Hepatitis A (Adult > 18 yrs) 06/06/2020 Pneumococcal Conjugate Vacci ne, 20-valent ([id number]) 06/24/2022 Seasonal Influenza Virus Vac cine, Unspecified [...] encounter Miscellaneous Notes * Telephone Encounter - Toby Paz MD - 03/29/2023 6:22 PM EST Sent erx * Telephone Encounter - Halley Roberts bsw - 03/29/2023 3:40 PM EST Received a call from pt's EC, stating that pt used to get meds filled at [facility] but since they've closed he will now be getting his med filled at [id number] They were told by the pharmacy that they would need his doctor to send in all new scripts for the meds he's currently taking. Pt's EC could only tell me three of the meds but wasn't sure of the rest. Pt's EC is asking for a list of meds and new scripts be sent to [facility] [address] [place] [id number] [place] Thank you, Ceasar Roberts, Database Manager Weight And Test Bar Clerk [facility] (Former[facility]) 03/29/2023,3:44 PM documented in this encounter Plan of Treatment Upcoming Encounters Date Type Department Care Team (Late st Contact Info) Description 03/31/2023 9:30 AM EST Office Visit Gastroenterology, [address] [facility] [place] [address] Keyanna Gordon CRNP [address] [place] [address] 04/04/2023 2:40 PM EST Office Visit [facility] [address] [place] [address] Rao Ochoa MD [address] [place] [address] 04/06/2023 2:00 PM EST Office Visit Hepatology, [facility] [address] [facility] [place] [address] Marilou Andrews DO [address] [facility] [place] [address] Scheduled Procedures Name Priority Associated Diagnoses Date/Ti [...] as of this encounter Visit Diagnoses Diagnosis Dyslipidemia Other and unspecified hyperlipidemia Hyperammonemia (HCC) Disorders of urea cycle metabolism Complaint of paresthesia Gastroesophageal reflux disease Esophageal reflux Primary insomnia Persistent disorder of initiating or maintaining sleep documented in this encounter Additional Health Concerns Infection Onset Date Last Indicated Resolved Time Hepatitis A 08/23/2021 08/23/2021 documented as of this encounter Care Teams Weight Shifter Relationship Specialty Start Date End Date Toby Paz MD [address] [place] [address] PCP - General Family Medicine 11/25/14 documented as of this encounter
--- OUTSIDE RECORDS SUMMARY | 2023-05-14 06:40 | External Medical Summary | Summary of Care ---
Author Name Unknown Organization [facility] Address [address] [facility] [place] [address] Phone [phone] Care Team Providers Care Veterinary Pathologist Name Role Phone Kiley Singh MD Primary Care Provider +1- [phone] Reason for Visit * Reason Onset Date Comments Medication Refill 03/20/2023 Encounter Details Date Type Department Care Team (Late st Contact Info) Description 03/20/2023 Refill [facility] [address] [place] [address] Kiley Singh MD [address] [place] [address] Hip pain, left; Avascular necrosis of bone of hip, unspecified laterality (HCC) Allergies Active Allergy Reactions Criticality Noted Date Comments Other Allergy (See Comments) Anaphylaxis High 06/21/2018 Bee stings- swelling documented as of this encounter (statuses as of 03/20/2023) Medications Medication Sig Dispensed Refills Start Date [...] 04/29/2022 Active Gabapentin 100 MG Oral Capsule (Neurontin)Indica tions:Complaint of paresthesia take 1 capsule by mouth every morning and AT NOON and BEFORE BEDTIME 90 Capsule 5 06/14/2022 Active Lactulose 10 GM/15ML Oral Solution (Constulose)Indic [...] Oral Tablet Take by mouth. 0 Active traZODone HCl 50 MG Oral Tablet [...] Pain, Severe. 30 Tablet 0 03/20/2023 Active oxyCODONE HCl 5 MG Oral Tablet (Oxy IR)Indications:Hi p pain, left,Avascular necrosis of bone of hip, unspecified laterality (HCC) Take 1 Tablet by mouth every 12 hours as needed for Pain, Severe. 30 Tablet 0 02/15/2023 3 Discontinue d(Refill) Hospital, Clinic, or Other Facility Administered Medication Ordered Dose Route Frequency Start Date End Date Status albuterol sulfate (PROVENTIL) (2.5 MG/3ML) 0.083% inhalation solution 2.5 mgIndications:SOB (shortness of breath) 2.5 mg NEBULIZER Q4H PRN 05/10/2018 Act guzman documented as of this encounter (statuses as of 03/20/2023) Active Problems Problem Noted Date Diagnosed Date [...] as of this encounter (statuses as of 03/20/2023) Resolved Problems Problem Noted Date Diagnosed Date Resolved Date Facial swelling 06/09/2017 08/07/2019 Urticaria 06/09/2017 08/07/2019 Intestinal obstruction 05/09/201203/02 CLASSICAL MIGRAINE WITHOU ME NTION OF INTRACTABLE MIGRAINE 11/29/2001 08/07/2019 Undiagnosed cardiac murmurs 11/29/2001 03/02/2017 Overview: Not [place] on 11/29/01 documented as of this encounter (statuses as of 03/20/2023) Immunizations Name Administration Dates Next Due HEP A - Hepatitis A (Adult > 18 yrs) 06/06/2020 Pneumococcal Conjugate Vacci ne, 20-valent ([id number]) 06/24/2022 Seasonal Influenza Virus Vac cine, Unspecified [...] Telephone Encounter - Kiley Singh MD - 03/20/2023 1:34 PM ESTSigned Prescriptions: Disp Refills oxyCODONE HCl 5 MG Oral Tablet (Oxy IR) 30 Tab*0 Sig: Take 1 Tablet by mouth every 12 hours as needed for Pain, Severe.Authorizing Provider: KILEY SINGH---- * Telephone Encounter - Kiley Singh MD - 03/20/2023 1:31 PM EST Sent erx * Telephone Encounter - Crystal Anderson OSA - 03/20/2023 12:44 PM EST Patient calling in to check on the status of previous message. Patient Called after 48 hour timeframe and escalation e-mail was sent to clinic leadership. * Telephone Encounter - Rosetta Rosas OSA - 03/20/2023 12:06 PM EST Patient asking for this to be filled today. He has a trip to [place] tomorrow. Wants to product picker today. documented in this encounter Plan of Treatment Upcoming Encounters Date Type Department Care Team (Late st Contact Info) Description 04/11/2023 3:00 PM EST Office Visit Gastroenterology, [facility] [address] [place] [address] Keyanna Gordon CRNP [address] [place] [address] 05/11/2023 2:40 PM EST Office Visit Hepatology, [facility] [address] [place] [address] Marilou Andrews DO [address] [place] [address] Scheduled Procedures Name Priority Associated Diagnoses Date/Ti [...] documented as of this encounter Care Teams Veterinary Pathologist Relationship Specialty Start Date End Date Kiley Singh MD [address] [place] [address] PCP - General Family Medicine 11/25/14 documented as of this encounter
--- OUTSIDE RECORDS SUMMARY | 2023-05-14 06:40 | External Medical Summary ---
Author Name Unknown Address Unknown Organization [id number]:[facility] [place] [address] [place] [address] Laboratory Report Ordering Provider Test Date Status LIZA LAROSE 03/31/2023 10:15:09 Final Observation Date Value Abnormality Reference (Units ) Status SYNC LEUKOCYTES IN BLOOD BY AUTOMATED COUNT 03/31/2023 10:15:09 5.42 4.00-10.80 (K/uL) Final Segs 03/31/2023 10:15:09 55.6 40.0-75.0 (%) Final Lymphs % 03/31/2023 10:15:09 23.6 18.0-42.0 (%) Final Monos 03/31/2023 10:15:09 10.5 1.0-11.0 (%) Final Eosinophils 03/31/2023 10:15:09 10.1 Above high normal 0.0-6.0 (%) Final Basos 03/31/2023 10:15:09 0.2 0.0-2.0 (%) Final Absolute Segs 03/31/2023 10:15:09 3.01 1.80-7.70 (K/uL) Final Lymphs, absolute 03/31/2023 10:15:09 1.28 1.00-4.80 (K/ul) Final Monos, Abs 03/31/2023 10:15:09 0.57 0.00-1.10 (K/uL) Final Eos, Abs 03/31/2023 10:15:09 0.55 0.00-0.70 (K/uL) Final Basos, Abs 03/31/2023 10:15:09 0.01 0.00-0.20 (K/uL) Final Performing Location [facility] [place] [address] [place] [address]
--- OUTSIDE RECORDS SUMMARY | 2023-05-14 06:40 | External Medical Summary ---
Author Name Unknown Address Unknown Organization K0G:[facility] [place] [facility] [address] - [address] [place] [address] Laboratory Report Ordering Provider Test Date Status LIZA LAROSE 03/31/2023 10:15:09 Final Observation Date Value Abnormality Reference (Units ) Status WBC, Total 03/31/2023 10:15:09 5.42 4.00-10.8 0 (K/uL) Final RBC 03/31/2023 10:15:09 4.47 4.50-5.25 (M/uL) Final Hemoglobin 03/31/2023 10:15:09 15.0 14.0-16.8 (g/dL) Final HCT 03/31/2023 10:15:09 43.1 40.0-48.4 (%) Final MCV 03/31/2023 10:15:09 96.4 82.0-99.5 (fL) Final MCH 03/31/2023 10:15:09 33.6 27.0-34.0 (pg) Final MCHC 03/31/2023 10:15:09 34.8 32.0-36.0 (g/dL) Final RDW 03/31/2023 10:15:09 14.8 11.5-15.5 (%) Final Platelets 03/31/2023 10:15:09 45 Below low normal 140 -400 (K/uL) Final MPV 03/31/2023 10:15:09 13.1 6.6-11.1 ( fL) Final Performing Location [facility]ORY [facility] [address] [place] [address]
--- OUTSIDE RECORDS SUMMARY | 2023-05-14 06:40 | External Medical Summary | Summary of Care ---
Author Name Unknown Organization [facility] Address [address] [facility] [address] Phone [phone] Care Team Providers Care Scholastic Aptitude Test Grader Name Role Phone Kiley Singh MD Primary Care Provider +1- [phone] Reason for Visit * Reason Comments eRx-Medication Refill Encounter Details Date Type Department Care Team (Late st Contact Info) Description 02/26/2023 Refill [facility] [address] [place] [address] Kiley Singh MD [address] [place] [address] Allergies Active Allergy Reactions Criticality Noted Date Comments Other Allergy (See Comments) Anaphylaxis High 06/21/2018 Bee stings- swelling documented as of this encounter (statuses as of 02/27/2023) Medications Medication Sig Dispensed Refills Start Date [...] 04/29/2022 Active Gabapentin 100 MG Oral Capsule (Neurontin)Indic ations:Complaint of paresthesia take 1 capsule by mouth every morning and AT NOON and BEFORE BEDTIME 90 Capsule 5 06/14/2022 Active Lactulose 10 GM/15ML Oral Solution (Constulose)Kaylin [...] BEFORE BEDTIME 60 Tablet 1 11/28/2022 Active Furosemide 40 MG Oral Tablet (Lasix) take 1 tablet by mouth every morning 30 Tablet 2 11/28/2022 Active Pantoprazole Sodium 40 MG Oral Tablet Delayed Release (Protonix)Indica tions:Gastroesop hageal reflux disease take 1 tablet by mouth twice a day 180 Tablet 3 11/28/2022 Active Diclofenac Sodium 1 % External Gel (Voltaren) Apply topically to affected area 2 times a day. Apply to area lateral to left hip 150 g 6 12/08/2022 Active Additional Information Patient not taking.Reported on 01/17/2023 oxyCODONE HCl 5 MG Oral Capsule (Oxy IR)Indications:A vascular necrosis of bone of hip, left (HCC) Take 1 Capsule by mouth in the morning and 1 Capsule before bedtime. 20 Capsule 0 01/12/2023 Active Iron (Ferrous Sulfate) 325 (65 Fe) MG Oral Tablet Take by mouth. 0 Active traZODone HCl 50 MG Oral Tablet (Desyrel)Indicat ions:Primary insomnia Take 2 Tablets by mouth at bedtime. 60 Tablet 5 02/06/2023 Active oxyCODONE HCl 5 MG Oral Tablet (Oxy IR)Indications:H ip pain, left,Avascular necrosis of bone of hip, unspecified laterality (HCC) Take 1 Tablet by mouth every 12 hours as needed for Pain, Severe. 30 Tablet 0 02/15/2023 Active Atorvastatin Calcium 20 MG Oral Tablet (Lipitor)Indicat ions:Dyslipidemi a take 1 tablet by mouth once daily 90 Tablet 2 02/24/2023 Active Magnesium Oxide -Mg Supplement 400 (240 Mg) MG Oral Tablet (Mag-Ox) take 1 tablet by mouth IN THE MORNING AND BEFORE BEDTIME 60 Tablet 5 02/27/2023 Active Magnesium Oxide 400 (240 Mg) MG Oral Tablet (Mag-Ox) take 1 tablet by mouth IN THE MORNING AND BEFORE BEDTIME 60 Tablet 5 06/14/2022 3 Discontinued Hospital, Clinic, or Other Facility Administered Medication Ordered Dose Route Frequency Start Date End Date Status albuterol sulfate (PROVENTIL) (2.5 MG/3ML) 0.083% inhalation solution 2.5 mgIndications:SOB (shortness of breath) 2.5 mg NEBULIZER Q4H PRN 05/10/2018 Act guzman documented as of this encounter (statuses as of 02/27/2023) Active Problems Problem Noted Date Diagnosed Date [...] ischemic heart disease 002 Overview: father had MD's in 40's Gastroesophageal reflux disease with esophagitis documented as of this encounter (statuses as of 02/27/2023) Resolved Problems Problem Noted Date Diagnosed Date Resolved Date Facial swelling 06/09/2017 08/07/2019 Urticaria 06/09/2017 08/07/2019 Intestinal obstruction 05/09/201203/02 CLASSICAL MIGRAINE WITHOU ME NTION OF INTRACTABLE MIGRAINE 11/29/2001 08/07/2019 Undiagnosed cardiac murmurs 11/29/2001 03/02/2017 Overview: Not [place] on 11/29/01 documented as of this encounter (statuses as of 02/27/2023) Immunizations Name Administration Dates Next Due HEP A - Hepatitis A (Adult > 18 yrs) 06/06/2020 Pneumococcal Conjugate Vacci ne, 20-valent ([id number]) 06/24/2022 SEASONAL INFLUENZA, PF, 6 M & Above, IM , (FLULAVAL or FLUZONE) 12/08/2022,12/14/2021,05/04/2021,2019,12/18/2018,02/01/2018,02/03/2017 Seasonal Influenza Virus Vac cine, Unspecified Formulation 05/04/2021,01/13/2020,12/18/2018,2017,02/03/2017,12/22/2015,01/14/2015 Seasonal Influenza, Quadriva lent, No Preserve, IM [...] Telephone Encounter - Kiley Singh MD - 02/27/2023 4:41 PM ESTSigned Prescriptions: Disp Refills Magnesium Oxide -Mg Supplement 400 (240 Mg*60 Tab*5 Sig: take 1 tablet by mouth IN THE MORNING AND BEFORE BEDTIMEAuthorizing Provider: KILEY SINGH * Telephone Encounter - Tata Lopez LPN - 02/27/2023 1:57 PM ESTPending Prescriptions: Disp Refills Magnesium Oxide -Mg Supplement 400 (240 Mg*60 Tab*5 Sig: take 1 tablet by mouth IN THE MORNING AND BEFORE BEDTIME * Telephone Encounter - Daljit Atkinson - 02/26/2023 1:22 PM ESTPending Prescriptions: Disp Refills Magnesium Oxide -Mg Supplement 400 (240 Mg*60 Tab*5 Sig: take 1tablet by mouth IN THE MORNING AND BEFORE BEDTIME documented in this encounter Plan of Treatment Upcoming Encounters Date Type Department Care Team (Late st Contact Info) Description 04/11/2023 3:00 PM EST Office Visit Gastroenterology, [facility] [address] [place] [address] Keyanna Gordon CRNP [address] [place] [address] 05/11/2023 2:40 PM EST Office Visit Hepatology, [facility] [address] [place] [address] Marilou Andrews DO [address] [place] [address] Scheduled Procedures Name Priority Associated Diagnoses Date/Ti [...] documented as of this encounter Care Teams Scholastic Aptitude Test Grader Relationship Specialty Start Date End Date Kiley Singh MD [address] [place] [address] PCP - General Family Medicine 11/25/14 documented as of this encounter
--- OUTSIDE RECORDS SUMMARY | 2023-05-14 06:40 | External Medical Summary | Summary of Care ---
Author Name Unknown Organization [facility] Address [address] [facility] [address] Phone [phone] Care Team Providers Care Telecom Network Manager Name Role Phone Toby Paz MD Primary Care Provider +1- [phone] Encounter Details Date Type Department Care Team (Late st Contact Info) Description 03/24/2023 Telephone [facility] [address] [place] [address] Toby Paz MD [address] [place] [address] Allergies Active Allergy Reactions Criticality Noted Date Comments Other Allergy (See Comments) Anaphylaxis High 06/21/2018 Bee stings- swelling documented as of this encounter (statuses as of 03/24/2023) Medications Medication Sig Dispensed Refills Start Date [...] as of this encounter (statuses as of 03/24/2023) Active Problems Problem Noted Date Diagnosed Date [...] ischemic heart disease 002 Overview: father had OR's in 40's Gastroesophageal reflux disease with esophagitis documented as of this encounter (statuses as of 03/24/2023) Resolved Problems Problem Noted Date Diagnosed Date Resolved Date Facial swelling 06/09/2017 08/07/2019 Urticaria 06/09/2017 08/07/2019 Intestinal obstruction 05/09/201203/02 CLASSICAL MIGRAINE WITHOU ME NTION OF INTRACTABLE MIGRAINE 11/29/2001 08/07/2019 Undiagnosed cardiac murmurs 11/29/2001 03/02/2017 Overview: Not [place] on 8/29/02 documented as of this encounter (statuses as of 03/24/2023) Immunizations Name Administration Dates Next Due HEP A - Hepatitis A (Adult > 18 yrs) 06/06/2020 Pneumococcal Conjugate Vacci ne, 20-valent ([id number]) 06/24/2022 Seasonal Influenza Virus Vac cine, Unspecified [...] encounter Miscellaneous Notes * Telephone Encounter - Kay Chino OSA - 03/24/2023 1:36 PM EST 02/22/23 Rec paperwork for pre-op clearance for surgery in April. Paperwork put in the "[employer] File" near the [facility]. Pt already has an appt scheduled for April [address] Ochoa. documented in this encounter Plan of Treatment Upcoming Encounters Date Type Department Care Team (Late st Contact Info) Description 04/04/2023 2:40 PM EST Office Visit [facility] [address] [place] [address] Rao Ochoa MD [address] [place] [address] 04/11/2023 3:00 PM EST Office Visit Gastroenterology, [facility] [address] [place] [address] Keyanna Gordon CRNP [address] [place] [address] 05/11/2023 2:40 PM EST Office Visit Hepatology, [facility] [address] [place] [place] [address] Marilou Andrews DO [address] [place] [address] Scheduled Procedures Name Priority Associated Diagnoses Date/Ti [...] documented as of this encounter Care Teams Telecom Network Manager Relationship Specialty Start Date End Date Toby Paz MD [address] [place] [address] PCP - General Family Medicine 11/25/14 documented as of this encounter
--- OUTSIDE RECORDS SUMMARY | 2023-05-14 06:40 | External Medical Summary ---
Author Name Unknown Address Unknown Organization K01:[facility] [place] - [address] [place] [address] Laboratory Report Ordering Provider Test Date Status LIZA LAROSE 03/31/2023 10:15:09 Final Deficient: <20 ng/mL
Ins ufficient: 20-29 ng/mL
Recommended/Optimum:30-50 ng/mL

Vitamin D intoxication is rare. If suspicious of Vitamin D toxicity, evaluation of serum Calcium and PTH is recommended. Observation Date Value Abnormality Reference (Units ) Status 25-OH Vitamin D total 03/31/2023 10:15:09 27 >19 (ng/mL) Final Performing Location LABORATORY [facility] - [address] [place] [address]
--- OUTSIDE RECORDS SUMMARY | 2023-05-14 06:40 | External Medical Summary | Summary of Care ---
Author Name Unknown Organization [facility] Address [address] [facility] [address] Phone [phone] Care Team Providers Care Electronic Funds Transfer Coordinator Name Role Phone Toby Paz MD Primary Care Provider +1- [phone] Reason for Visit * Reason Onset Date Comments Advice 03/21/2023 Encounter Details Date Type Department Care Team (Late st Contact Info) Description 03/21/2023 Telephone Gastroenterology, [facility] [address] [place] [address] Keyanna Gordon CRNP [address] [place] [address] Advice Allergies Active Allergy Reactions Criticality Noted [...] Undiagnosed cardiac murmurs 11/29/2001 03/02/2017 Overview: Not [place] on 11/29/01 documented as of this encounter (statuses as of 03/23/2023) Immunizations Name Administration Dates Next Due HEP A - Hepatitis A (Adult > 18 yrs) 06/06/2020 Pneumococcal Conjugate Vacci ne, 20-valent ([id number]) 06/24/2022 Seasonal Influenza Virus Vac cine, Unspecified [...] 03/21/2023 2:09 PM EST Received call from PA from [facility] wanting to speak with Keyanna Gordon regarding pt's upcoming surgery. Keyanna when you get a chance can you call Camille at [phone]. Thanks documented in this encounter Plan of Treatment Upcoming Encounters Date Type Department Care Team (Late st Contact Info) Description 04/04/2023 2:40 PM EST Office Visit [facility] [address] [place] [address] Rao Ochoa MD [address] [place] [address] 04/11/2023 3:00 PM EST Office Visit Gastroenterology, [facility] [address] [facility] [place] [address] Keyanna Gordon CRNP [address] [place] [address] 05/11/2023 2:40 PM EST Office Visit [facility]atology, [facility] [place] [address] Marilou Andrews DO [address] [place] [address] Scheduled Procedures Name Priority Associated Diagnoses Date/Ti [...] documented as of this encounter Care Teams Electronic Funds Transfer Coordinator Relationship Specialty Start Date End Date Toby Paz MD [address], [place] [id number] PCP - General Family Medicine 11/25/14 documented as of this encounter
--- OUTSIDE RECORDS SUMMARY | 2023-05-14 06:40 | External Medical Summary | Summary of Care ---
Author Name Unknown Organization [facility] Address [address] [facility] [address] Phone [phone] Care Team Providers Care Procurement Representative Name Role Phone Toby Paz MD Primary Care Provider +1- [phone] Reason for Visit * Reason Comments Outpatient Testing Encounter Details Date Type Department Care Team (Late st Contact Info) Description 03/31/2023 10:20 AM [facility] Laboratory [facility], [facility] [address] [facility] [address] [facility] [address] [facility] [place] [address] Encounter for long-term (current) use of medications; Alcoholic cirrhosis of liver with ascites (HCC) Allergies Active Allergy Reactions Criticality Noted [...] 2 03/29/2023 Active Vitamin A & D [address] UNIT Oral Tablet Take by mouth. 0 [...] ischemic heart disease 002 Overview: father had [place]'s in 40's Gastroesophageal reflux disease with esophagitis documented as of this encounter (statuses as of 03/31/2023) Resolved Problems Problem Noted Date Diagnosed Date Resolved Date Facial swelling 06/09/2017 08/07/2019 Urticaria 06/09/2017 08/07/2019 Intestinal obstruction 05/09/201203/02 CLASSICAL MIGRAINE WITHOU ME NTION OF INTRACTABLE MIGRAINE 11/29/2001 08/07/2019 Undiagnosed cardiac murmurs 11/29/2001 03/02/2017 Overview: Not [place] on 11/29/01 documented as of this encounter (statuses as of 03/31/2023) Immunizations Name Administration Dates Next Due HEP A - Hepatitis A (Adult > 18 yrs) 06/06/2020 Pneumococcal Conjugate Vacci ne, 20-valent ([id number]) 06/24/2022 Seasonal Influenza Virus Vac cine, Unspecified [...] Description 04/04/2023 2:40 PM EST Office Visit [facility] [address] [facility] [address] Rao Ochoa MD [address] [facility] [address] 04/06/2023 2:00 PM EST Office Visit Hepatology, [facility] [address] [place] [address] Marilou Andrews DO [address] [place] [address] 07/27/2023 9:30 AM EDT Procedure Only Endoscopy, [facility] [address] [place] [address] Trish Villatoro MD [address] [place] [address] Pending Results Name Type Priority Associated Diagnoses Date /Time LIPID PANEL WITH DIRECT LDL IF TG IS HIGH Lab Routine Encounter for long-term (current) use of medications 03/31/2023 10:15 AM EST CBC WITH WBC DIFFERENTIAL Lab Routine Alcoholic cirrhosis of liver with ascites (HCC) 03/31/2023 10:15 AM EST COMPREHENSIVE METABOLIC PANEL Lab Routine Alcoholic cirrhosis of liver with ascites (HCC) 03/31/2023 10:15 AM EST PT INR Lab Routine Alcoholic cirrhosis of liver with ascites (HCC) 03/31/2023 10:15 AM EST 25-HYDROXY VITAMIN D Lab Routine Alcoholic cirrhosis of liver with ascites (HCC) 03/31/2023 10:15 AM EST CBC Lab Routine Alcoholic cirrhosis of liver with ascites (HCC) 03/31/2023 10:15 AM EST DIFFERENTIAL, AUTOMATED Lab Routine Alcoholic cirrhosis of liver with ascites (HCC) 03/31/2023 10:15 AM EST Scheduled Procedures Name Priority Associated [...] as of this encounter Visit Diagnoses Diagnosis Encounter for long-term (current) use of medications Encounter for long-term (current) use of other medications Alcoholic cirrhosis of liver with ascites (HCC) Alcoholic cirrhosis of liver documented in this encounter Additional Health Concerns Infection Onset Date Last Indicated Resolved Time Hepatitis A 08/23/2021 08/23/2021 documented as of this encounter Care Teams Procurement Representative Relationship Specialty Start Date End Date Toby Paz MD [address] [place] [address] PCP - General Family Medicine 11/25/14 documented as of this encounter
--- OUTSIDE RECORDS SUMMARY | 2023-05-14 06:40 | External Medical Summary | Summary of Care ---
Author Name Unknown Organization [facility] Address [address] [place] [facility] [facility] [place] [address] Phone [phone] Care Team Providers Care Roller Mill Tender Name Role Phone Kiley Singh MD Primary Care Provider +1- [phone] Reason for Visit * Reason Onset Date Comments Medication Refill 03/20/2023 Encounter Details Date Type Department Care Team (Late st Contact Info) Description 03/20/2023 Refill [facility] [address] [place] [address] Kiley Singh MD [address] [place] [address] Hip pain, left; Avascular necrosis [...] ischemic heart disease 002 Overview: father had [place]'s in 40's Gastroesophageal reflux disease with esophagitis documented as of this encounter (statuses as of 03/20/2023) Resolved Problems Problem Noted Date Diagnosed Date Resolved Date Facial swelling 06/09/2017 08/07/2019 Urticaria 06/09/2017 08/07/2019 Intestinal obstruction 05/09/201203/02 CLASSICAL MIGRAINE WITHOU ME NTION OF INTRACTABLE MIGRAINE 11/29/2001 08/07/2019 Undiagnosed cardiac murmurs 11/29/2001 03/02/2017 Overview: Not [place] on 11/29/01 documented as of this encounter (statuses as of 03/20/2023) Immunizations Name Administration Dates Next Due HEP A - Hepatitis A (Adult > 18 yrs) 06/06/2020 Pneumococcal Conjugate Vacci ne, 20-valent ([id number]) 06/24/2022 Seasonal Influenza Virus Vac cine, Unspecified [...] Telephone Encounter - Chelle Brewster LPN - 03/20/2023 2:00 PM ESTSigned Prescriptions: Disp Refills oxyCODONE HCl 5 MG Oral Tablet (Oxy IR) 30 Tab*0 Sig: Take 1 Tablet by mouth every 12 hours as needed for Pain, Severe.Authorizing Provider: KILEY SINGH---- * Telephone Encounter - Chelle Brewster LPN - 03/20/2023 2:00 PM EST Images from the original note were not included. See below message from pt message encounter from 03/15/23 Please advise Mauro Liu [facility] Pool/Class (supporting Eris Sharpe MD) 03/15/23 8:17 PM I was wondering of you can renew my Oxycodone script and I wanted to know if you can prescribe me the 45 capsules instead of the 30 because the 30 isn't lasting due to pain increasing more . I take 2but there's times I have to take 3 just deal with the pain. Mauro Wilson * Telephone Encounter - Kiley Singh MD - 03/20/2023 1:34 PM ESTSigned Prescriptions: Disp Refills oxyCODONE HCl 5 MG Oral Tablet (Oxy IR) 30 Tab*0 Sig: Take 1 Tablet by mouth every 12 hours as needed for Pain, Severe.Authorizing Provider: KILEY SINGH----- * Telephone Encounter - Kiley Singh MD [...] 04/11/2023 3:00 PM EST Office Visit Gastroenterology, [facility] [address] [place] [address] Keyanna Gordon CRNP [address] [place] [address] 05/11/2023 2:40 PM EST Office Visit Hepatology, [facility] [address] [place] [address] Marilou Andrews DO [address] [place] [address] Scheduled Procedures Name Priority Associated Diagnoses Date/Ti [...] documented as of this encounter Care Teams Roller Mill Tender Relationship Specialty Start Date End Date Kiley Singh MD [address] [facility] [place] [address] PCP - General Family Medicine 11/25/14 documented as of this encounter
--- OUTSIDE RECORDS SUMMARY | 2023-05-14 06:40 | External Medical Summary ---
Author Name Unknown Address Unknown Organization [id number][place] [place] [address] [facility] [place] [address] Laboratory Report Ordering Provider Test Date Status MOHSEN COTE 03/31/2023 10:15:09 Final Observation Date Value Abnormality Reference (Units ) Status Triglyceride 03/31/2023 10:15:09 70 <=174 ( mg/dL) Final Triglyceride Reference Range s (mg/dL):
<150 Acceptable
150-174 Borderline high
175-499 High
>=500 Very high Cholesterol 03/31/2023 10:15:09 108 <200 (mg /dL) Final Total Cholesterol Reference Ranges (mg/dL):
<200 Desirable
200-239 Borderline high
>=240 High HDL 03/31/2023 10:15:09 51 >39 (mg/dL ) Final HDL Cholesterol Reference Ra nges (mg/dL):
>=60 High (Desirable)
<50 Low (Undesirable) For Females
<40 Low (Undesirable) For Males NON-HDL CHOLESTEROL 03/31/2023 10:15:09 57 <=159 (mg/dL) Final Non-HDL Cholesterol Referenc e Range (mg/dL):
<100 Target level for high risk ASCVD patient
<130 Optimal for general population
130-159 Near optimal for general population
160-189 Borderline High
190-219 High
>=220 Very High LDL, (calculated) 03/31/2023 10:15:09 43 <= 129 (mg/dL) Final LDL Cholesterol Reference Ra nges (mg/dL):
<70 Target level for high risk ASCVD patient
<100 Optimal for general population
100-129 Near optimal for general population
130-159 Borderline high
160-189 High
>=190 Very high Performing Location [facility] [place] [address] [place] [address]
--- OUTSIDE RECORDS SUMMARY | 2023-05-14 06:40 | External Medical Summary | Continuity of Care Document ---
Author Name Unknown Organization [facility] [address] [place] [id number] Care Team Providers Care Personal Lines Sales Rep Name Role Phone Toby Paz Primary Care Physician [phone] [id number] Date(s): 03/21/23 - 03/21/23 [facility] [address] [place] [phone] Discharge Disposition: Home or Self Care Attending Physician: OLGA Santoyo Tammy M Referring Physician: LOGA Santoyo Tammy M Allergies, Adverse Reactions, Alerts No Known [...] PO, Daily Start Date: 01/18/23 Status: Ordered Procedures Procedure Date Related Diagnosis Body Site Status Cholecystectomy 2015 Completed Bowel resection s/t obstruction 2013 Completed Appendectomy as teenager Completed Colonoscopy Completed Endoscopy Completed Results Laboratory List Name Date Basic Metabolic Panel (BASIC METAB PANEL ) 03/21/23 Complete Blood Count w Differential (CBC ,DIFFH) 03/21/23 Vitamin D, 25-Hydroxy Level, Total (25-H YDROXY VITAMIN D) 03/21/23 Most recent to oldest [Reference Range]: 1 eGFR CKD-EPI [>60 mL/min/1.73 m2] >90 mL /min/1.73 m2 (03/21/23 11:28 AM) Vitamin D, 25-Hydroxy [30-100 ng/mL] 16 ng/mL 1 *LOW* (03/21/23 11:28 AM) Estimated CrCl 86.82 mL/min (03/21/23 1:37 PM) MPV [9.0-12.2 fL] 12.8 fL *HI* (03/21/23 11:28 AM) Immature Gran% 0.9 % (03/21/23 11:28 AM) Neut% 52.6 % (03/21/23 11:28 AM) Lymph% 23.7 % (03/21/23 11:28 AM) Dickinson% 11.2 % (03/21/23 11:28 AM) Baso% 0.9 % (03/21/23 11:28 AM) Eos% 10.7 % (03/21/23 11:28 AM) Immat Gran, Abs [0-0.4 K/uL] 0.05 K/uL (03/21/23 11:28 AM) Neut, Abs [2.0-7.7 K/uL] 3.07 K/uL (03/21/23 11:28 AM) Lymph, Abs [1.0-3.4 K/uL] 1.38 K/uL (03/21/23 11:28 AM) Dickinson, Abs [0-1.0 K/uL] 0.65 K/uL (03/21/23 11:28 AM) Baso, Abs [0-0.1 K/uL] 0.05 K/uL (03/21/23 11:28 AM) Eos, Abs [0-0.5 K/uL] 0.62 K/uL *HI* (03/21/23 AM) Type of Diff: AUTO *Unknown* (03/21/23 AM) RDW [11.5-14.2 %] 15.2 % *HI* (03/21/23: AM) Anion Gap [5-14 mmol/L] 9 mmol/L (03/21/23 AM) BUN [6-23 mg/dL] 15 mg/dL (03/21/23 AM) Ca [8.4-10.2 mg/dL] 9.0 mg/dL (03/21/23: AM) Cl- [98-107 mmol/L] 110 mmol/L *HI* (03/21/23 AM) HCO3 [22-29 mmol/L] 21 mmol/L *LOW* (03/21/23 AM) Cret [0.70-1.30 mg/dL] 0.96 mg/dL (03/21/23: AM) Glu [74-109 mg/dL] 104 mg/dL 2 (03/21/23 AM) Hct [39-48 %] 41.9 % (03/21/23 AM) Hgb [13.0-17.0 g/dL] 14.2 g/dL (03/21/23 AM) K [3.5-5.1 mmol/L] 3.9 mmol/L (03/21/23: AM) MCH [28-33 pg] 33.2 pg *HI* (03/21/23 AM) MCHC [32-36 g/dL] 33.9 g/dL (03/21/23: AM) MCV [81-96 fL] 97.9 fL *HI* (03/21/23 AM) Na [136-145 mmol/L] 140 mmol/L (03/21/23 11:28 AM) Plts [150-350 K/uL] 55 K/uL *LOW* (03/21/23 11:28 AM) RBC [4.40-5.60 M/uL] 4.28 M/uL *LOW* (03/21/23 11:28 AM) WBC [4.0-10.4 K/uL] 5.82 K/uL (03/21/23 11:28 AM) 1Result Comment: Deficiency: <20 ng/mL Insufficiency: 21-29 ng/mL Sufficiency: 30-100 ng/mL Potenial Toxicity: >150 ng/mL 2Result Comment: ADA recommendation for FASTING Serum/Plasma Glucose: Normal: 70-100 mg/dL Prediabetes: 100-125 mg/dL Diabetes: 126 mg/dL or higher Social History Social History Type Response Smoking Status Former Smoker, quit > 1 yr Sex Male Patient Care team information Care Team Personnel Name: MD Brandi, Toby Glasgow Position: Referring DIRECT Member Role: Primary Care Provider Address: Address: [address] [place] [address] Care Team Related Persons Name: MALCOM BURDEN Address: home [address] [place] [address] [place] [phone]
--- OUTSIDE RECORDS SUMMARY | 2023-05-14 06:40 | External Medical Summary | Summary of Care ---
Author Name Unknown Organization [facility] Address [address] [place] [address] Phone [phone] Care Team Providers Care Finish Cleaner Name Role Phone Kiley Singh MD Primary Care Provider +1- [phone] Reason for Visit * Reason Onset Date Comments Medication Refill 03/20/2023 Encounter Details Date Type Department Care Team (Late st Contact Info) Description 03/20/2023 Refill [facility] [address] [place] [address] Kiley Singh MD [address] [place] [address] Hip pain, left; Avascular necrosis [...] ischemic heart disease 002 Overview: father had [place]'s in 40's Gastroesophageal reflux disease with esophagitis documented as of this encounter (statuses as of 03/20/2023) Resolved Problems Problem Noted Date Diagnosed Date Resolved Date Facial swelling 06/09/2017 08/07/2019 Urticaria 06/09/2017 08/07/2019 Intestinal obstruction 05/09/201203/02 CLASSICAL MIGRAINE WITHOU ME NTION OF INTRACTABLE MIGRAINE 11/29/2001 08/07/2019 Undiagnosed cardiac murmurs 11/29/2001 03/02/2017 Overview: Not [place] on 11/29/01 documented as of this encounter (statuses as of 03/20/2023) Immunizations Name Administration Dates Next Due HEP A - Hepatitis A (Adult > 18 yrs) 06/06/2020 Pneumococcal Conjugate Vacci ne, 20-valent ([id number]) 06/24/2022 Seasonal Influenza Virus Vac cine, Unspecified [...] Telephone Encounter - Tata Lopez LPN - 03/20/2023 3:36 PM EST Left message on machine * Telephone Encounter - Chelle Brewster LPN - 03/20/2023 2:00 PM ESTSigned Prescriptions: Disp Refills oxyCODONE HCl 5 MG Oral Tablet (Oxy IR) 30 Tab*0 Sig: Take 1 Tablet by mouth every 12 hours as needed for Pain, Severe.Authorizing Provider: KILEY SINGH R----- * Telephone Encounter - Chelle Brewster LPN - 03/20/2023 2:00 PM EST Images from the original note were not included. See below message from pt message encounter from 03/15/23 Please advise Mauro Liu to [facility] Lacho/Class (supporting Eris Sharpe MD) BM 03/15/23 8:17 PM I was wondering of you can renew my Oxycodone script and I wanted to know if you can prescribe me the 45 capsules instead of the 30 because the 30 isn't lasting due to pain increasing more . I take 2but there's times I have to take 3 just deal with the pain. Katie,Mauro * Telephone Encounter - Kiley Singh MD [...] a trip to [place] tomorrow. Wants to fiber picker today. documented in this encounter Plan of Treatment Upcoming Encounters Date Type Department Care Team (Late st Contact Info) Description 04/11/2023 3:00 PM EST Office Visit Gastroenterology, [facility] [address] [place] [address] Keyanna Gordon CRNP [address] [place] [address] 05/11/2023 2:40 PM EST Office Visit Hepatology, [facility] [address] [place] [address] Marilou Andrews DO [address] [place] [address] Scheduled Procedures Name Priority Associated Diagnoses Date/Ti [...] documented as of this encounter Care Teams Finish Cleaner Relationship Specialty Start Date End Date Kiley Singh MD [address] [place] [address] PCP - General Family Medicine 11/25/14 documented as of this encounter
--- OUTSIDE RECORDS SUMMARY | 2023-05-14 06:40 | External Medical Summary ---
Author Name Unknown Address Unknown Organization K0G:[facility] [facility] [address] [place] [address] Laboratory Report Ordering Provider Test Date Status LIZA LAROSE 03/31/2023 10:15:09 Final Warfarin Therapy
INR: 2 .0-3.0 conventional anticoagulation
INR: 2.5- 3.5 high intensity anticoagulation Observation Date Value Abnormality Reference (Units ) Status PT 03/31/2023 10:15:09 18.0 Above high normal 11 .6-15.2 (seconds) Final INR 03/31/2023 10:15:09 1.5 Above high normal 0. 8-1.2 Final Performing Location [facility] [address] [place] [address]
--- OUTSIDE RECORDS SUMMARY | 2023-05-14 06:40 | External Medical Summary | Summary of Care ---
Author Name Unknown Organization [facility] Address [address] [facility] [address] Phone [phone] Care Team Providers Care Avionics Supervisor Name Role Phone Toby Paz MD Primary Care Provider +1- [phone] Reason for Visit * Reason Onset Date Comments Advice 03/21/2023 Encounter Details Date Type Department Care Team (Late st Contact Info) Description 03/21/2023 Telephone Gastroenterology, [facility] [address] [place] [address] Keyanna Gordon CRNP [address] [place] [address] Advice Allergies Active Allergy Reactions Criticality Noted Date Comments Other Allergy (See Comments) Anaphylaxis High 06/21/2018 Bee stings- swelling documented as of this encounter (statuses as of 03/21/2023) Medications Medication Sig Dispensed Refills Start Date [...] as of this encounter (statuses as of 03/21/2023) Active Problems Problem Noted Date Diagnosed Date [...] ischemic heart disease 002 Overview: father had CT's in 40's Gastroesophageal reflux disease with esophagitis documented as of this encounter (statuses as of 03/21/2023) Resolved Problems Problem Noted Date Diagnosed Date Resolved Date Facial swelling 06/09/2017 08/07/2019 Urticaria 06/09/2017 08/07/2019 Intestinal obstruction 05/09/201203/02 CLASSICAL MIGRAINE WITHOU ME NTION OF INTRACTABLE MIGRAINE 11/29/2001 08/07/2019 Undiagnosed cardiac murmurs 11/29/2001 03/02/2017 Overview: Not [place] on 11/29/01 documented as of this encounter (statuses as of 03/21/2023) Immunizations Name Administration Dates Next Due HEP A - Hepatitis A (Adult > 18 yrs) 06/06/2020 Pneumococcal Conjugate Vacci ne, 20-valent ([id number]) 06/24/2022 Seasonal Influenza Virus Vac cine, Unspecified [...] encounter Miscellaneous Notes * Telephone Encounter - Linnette Christianson OSA - 03/21/2023 2:09 PM EST Received call from [place] from [facility] wanting to speak with Keyanna Gordon regarding pt's upcoming surgery. Keyanna when you get a chance can you call Camille at [phone]. Thanks documented in this encounter Plan of Treatment Upcoming Encounters Date Type Department Care Team (Late st Contact Info) Description 04/11/2023 3:00 PM EST Office Visit Gastroenterology, [facility] [address] [place] [address] Keyanna Gordon CRNP [address] [place] [address] 05/11/2023 2:40 PM EST Office Visit Hepatology, [facility] [address] [place] [address] Marilou Andrews DO [address] [place] [address] Scheduled Procedures Name Priority Associated Diagnoses Date/Ti [...] documented as of this encounter Care Teams Avionics Supervisor Relationship Specialty Start Date End Date Toby Paz MD [address] [place] [address] PCP - General Family Medicine 11/25/14 documented as of this encounter
--- OUTSIDE RECORDS SUMMARY | 2023-05-14 06:40 | External Medical Summary | Continuity of Care Document ---
Author Name Unknown Organization [facility] [address] [place] [address] [place] [id number] Care Team Providers Care Body Work Auto Trimmer Name Role Phone Toby Paz Primary Care Physician [phone] Encounter [facility] [id number] Date(s): 03/21/23 - 03/21/23 [facility] [address] [facility] [address], [address], [address] [place] [address] Encounter Diagnosis Body mass index [BMI] 27.0-27.9, adult(Discharge Diagnosis) - 03/21/23 Pre-op exam(Discharge Diagnosis) - 03/21/23 Cirrhosis(Discharge Diagnosis) - 03/21/23 Discharge Disposition: Home or Self Care Attending Physician: MD Skaggs Selina N Referring Physician: MD Pamela, Jamie Merritt Allergies, Adverse [...] Health Status Cl inical Service Informant Pre-op exam Discharge Diagnosis 03/21/23 Cirrhosis Discharge Diagnosis 03/21/23 Body mass index [BMI] 27.0-27.9, adult Discharge Diagnosis 03/21/23 Non-Specified Procedures Procedure Date Related Diagnosis Body Site Status Cholecystectomy 2015 Completed Bowel resection s/t obstruction 2013 Completed Appendectomy as teenager Completed Colonoscopy Completed Endoscopy Completed Results Laboratory List Name Date Liver Profile (LIVER PROFILE) 03/21/23 Prothrombin Time w/ INR (PROTIME WITH IN R) 03/21/23 Most recent to oldest [Reference Range]: 1 Alk Phos [40-130 unit/L] 101 unit/L (03/21/23 11:29 AM) ALT [0-41 unit/L] 24 unit/L (03/21/23 11:29 AM) INR [0.9-1.1] 1.5 1 *HI* (03/21/23 11:29 AM) PT [12.0-14.2 seconds] 18.1 seconds *HI* (03/21/23 11:29 AM) T Bili [0.0-1.2 mg/dL] 2.5 mg/dL *HI* (03/21/23 11:29 AM) 1Result Comment: Suggested therapeutic range for low-intensity Coumadin therapy for venous thromboembolism is INR 2.0-3.0 (ex: atrial fibrillation, history of TIA/stroke). For high risk patients, the suggested therapeutic range is INR 2.5-3.5 (ex: mechanical prosthetic valves). Vital Signs Most recent to oldest [Reference Range]: 1 Height 178 cm (03/21/23 10:18 AM) Patient Weight 86.5 kg (03/21/23 10:18 AM) Body Mass Index 27.3 kg/m2 (03/21/23 10:18 AM) Temperature [36.5-37.9 DegC] 36.9 DegC (03/21/23 10:18 AM) Heart Rate 63 bpm (03/21/23 10:18 AM) Respiratory Rate 16 br/min (03/21/23 10:18 AM) Blood Pressure 95/54mmHg (03/21/23 10:18 AM) Mean Blood Pressure 68 mmHg (03/21/23 10:18 AM) Cuff Pulse Pressure 41 mmHg (03/21/23 10:18 AM) BP Location # 1 Right Arm (03/21/23 10:18 AM) Social History Social History Type Response Smoking Status Former Smoker, quit > 1 yr Sex Male Anes H&P * MD Skaggs Selina N: MODIFY MD Skaggs Selina N: MODIFY, SIGN MD Skaggs Selina N: SIGN, VERIFY MD Skaggs Selina N: VERIFY, SIGN MD Skaggs Selina N: SIGN, MODIFY, MODIFY, MODIFY, MODIFY, SIGN, SIGN YOGESH Zazueta Lauren R: SIGN, MODIFY YOGESH Zazueta Lauren R: MODIFY Event Display: Anes H&P Authored Date: [id number] Patient: MARLEEN MELTON Age: 57 years Sex: Male : 1965 Associated Diagnoses: None Author: YOGESH Zazueta Lauren R Preoperative Information Anesthesia Preop Info: Procedure: TOTAL LEFT HIP ARTHROPLASTY Date: 04/10/23 07:30 Surgeons: MD Santiago Nikkole M Diagnosis: LEFT HIP OSTEOARTHRITIS . History of Present Illness 57 year old male scheduled for above. He is accompanied by his fiance and step daughter. No covid-19 vaccine to date Anesthesia History PONV: Denies. History of Motion Sickness: Denies. Patient Complications: Negative. Family History of Anesthesia Problems: Negative. Functional Capacity 1-3 METS = Poor: primarily in bed most of day since November 2022 (hip surgery was cancelled at outside hospital due to possible UTI). He needs assistance with standing transfers out of bed/chair into wheelchair. Can walk very short distance with assistance. Primarily uses wheelchair inside and outside of home. Symptoms: Denies SOB/CP. Medical History Cardiovascular: Hypertension: Previously on medications, only remains on diuretics. CAD: h/o NV approx 15 years ago, no interventions. Denies CP/Angina. Valves: H/O murmur as child. Pulmonary: Ex-smoker, quit approx 1 year ago, "few cigarettes/cigars socially." Denies COPD. Hematologic: Thrombocytopenia, reports his baseline Plts are 45-50. Anemia: No transfusions. Neurologic: TIA: possible, approx 20 years ago. Denies residual deficits. Gastrointestinal: h/o bowel obstruction requiring resection approx 2015. GERD: Pantoprazole. Liver Disease: cirrhosis dx approx 2 years ago (alcoholic per outside records; however, pt/family deny) - complications of esophageal varices, encephalopathy (last hospitaliztion approx 1.5 years ago). Denies ascites prior alcohol use: pt states he only drank socially, not daily, no alcohol for approx 2 years 02/16/23 preop risk note from Deaf Teacher: "Current MELD is 12. This is not as simple as yes or no. He is high risk for hepatic decompensation from surgery. I recommend he be admitted, evaluated andmedically managed by [facility] prior, during, and after his surgery (full hepatology note not scanned in records or available in HIE - will request) [facility] put consult in for Hepatology; however, Hepatology team reached back out via emessage clarifying referral and no further f/u. No appts scheduled or preop arrangements made.. Psychiatric: Depression, Controlled with medication. Health Status Allergies: Allergic Reactions (Selected) NKA. Histories Procedure History: Cholecystectomy ([id number]) in 2016 at 50 Years. Bowel resection s/t obstruction ([id number]) in 2013 at 48 Years. Endoscopy ([id number]). Colonoscopy ([id number]). Appendectomy as teenager ([id number]).. 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 Former Smoker, quit > 1 yr Other Tobacco Use: Never used other tobacco products Alcohol: Denies Recreational Drugs: Denies . Physical Examination VS/Measurements: 03/21/2023 10:18 Temp: 36.9 Pulse: 63 BP: 95/54 MAP: 68 RR: 16 SPO2: 98 FIO2: Wt(kg): 86.5 BMI: 27 Height(cm): 178 . General: Alert, Oriented, Well developed, Well-nourished, In wheelchair. Airway: Mallampati classification: III (soft palate, base of uvula visible). Hyomental Distance: 30-40mm. Mouth: Within normal limits. Teeth: Denies loose/broken teeth. Head: Normocephalic, Glasses. Neck: Supple, Good flexion, Limited extension. Trachea: Midline. Respiratory: CTA bilaterally, No wheezes. Cardiovascular: Heart: RRR, No murmurs. Edema: None. Gastrointestinal: Soft, Normal bowel sounds, Non-tender. Musculoskeletal: Exam per surgery team. Neurologic: Normal sensory, Normal motor, No focal deficits. Assessment and Plan Medications: Pre-Surgery Medication Instructions Please bring a list of your medications with you on the day of procedure and include the date and time you last took each medication. It is very important we have an accurate list of your medicationsprior to your procedure. Please review this medication list with your home medications and call [phone] prior to your procedure with any changes to your prescription medications. FLUoxetine (FLUoxetine 10 mg oral capsule) 1 cap by mouth once daily . Take the morning of procedure. atorvastatin (atorvastatin 20 mg oral tablet) 1 tab by mouth once daily . Take the morning of procedure. furosemide (furosemide 40 mg oral tablet) 1 tab by mouth once daily . Do not take morning of procedure gabapentin (gabapentin 100 mg oral capsule) 1 cap by mouth once daily . Take the morning of procedure. lactulose 30 mL by mouth 3 times daily . Do not take morning of procedure magnesium oxide (magnesium oxide 400 mg (241.3 mg elemental magnesium) oral tablet) 1 tab by mouth once a day (in the morning) . Do not take morning of procedure oxyCODONE (oxyCODONE 5 mg oral tablet) 1 tab by mouth 2 times daily, as needed for pain . May take the night before and/or morning of procedure if needed pantoprazole (pantoprazole 40 mg oral delayed release tablet) 1 tab by mouth once daily . Take the morning of procedure. rifAXIMin (Xifaxan 550 mg oral tablet) 1 tab by mouth once daily . Take the morning of procedure. spironolactone 25 mg by mouth once a day (in the morning) . Do not take morning of procedure traZODone (traZODone 50 mg oral tablet) 2 tab by mouth at bedtime . Take night before procedure as usual . Does patient use aspirin?: No. Does patient use beta blockers?: No. Does patient use JONATHAN- I/ARB drugs?: No. Does patient use narcotic analgesics for chronic pain? (>1 month AND >30mg morphine or equivalent daily): No. Anesthesiologist Assessment and Plan Problems: Patient stated he was evaluated for a liver transplant "a while ago" but his "numbers were not bad enough to proceed". We have requested the actual hepatology note but per karli, they seemed to have a discussion with him about the risk of decompensation. Pt and his family all agree, heknows he is higher risk. We are repeating his labs today to get an updated MELD and platelet/coag testing. Based on the information I had (MELD of 12 and plat count in the 40-50s) I discussed the following - MELD > 12-14 increases the risk of perioperative complications such as liver dysfunction or failure. If the pt were to have this happen, we would manage symptoms and if failure he may be placed on the transplant list. The pt stated his pain is so horrible that he would accept the risk, including liver failure and , to have the procedure. I assured him we would do everything we can to mitigate these risks such as tight BP management, avoiding hepatotoxic agents and giving IVF/transfusions if necessary to keep volume status adequate. - Pt understands a platelet count <50k is at a much higher risk of bleeding and he would accept both platelet and RBC transfusions - The hepatology note makes mention of pre admission the day before and hepatology monitoring postop. Surgical team reached out to our hepatologists but I would be shocked if they preadmitted him. I also do not think insurance would pay for this as it is likely unnecessary (unless he has significant electrolyte abnormalities or coaguloapathy at which point an elective joint replacement would likely be postponed). Cardiovascular risk associated with the procedure: Elevated (>=1%). ASA Classification: Class III. Anesthetic Plan: Anesthetic technique discussed: General anesthesia. Airway plan discussed: Oral endotracheal tube. Special monitoring discussed: Arterial line. Risks discussed: Nausea-vomiting, Sore throat, Dental injury, Serious complications. Special techniques and precautions discussed: Nausea-vomiting, Transfusion of blood or blood products. Review / Management Ordered Today: CBC, BMP, per surgeon, added on LFTs and INR to calculate MELD score. Orders placed for day of surgery: CBC. Records requested from outside facility: Hepatology records, (full hepatology note not scanned in records or available in HIE - will request) despite risk form stating hepatology was faxing last office visit note. Pending issues: discussed cirrhosis, outside hepatologists recommendations for inpatient [facility] management with Dr. Skaggs. Patient Education Patient Education: [facility] [place] [place] Electronic Signature on File Electronically Reviewed/Signed by: YOGESH Fuentes Author Signature Dt/Tm:03/21/2023 11:06 AM Department of Anesthesia Electronically Reviewed/Signed by: MD Nicolas Leosigner Signature Dt/Tm: 03/21/2023 12:44 PM Department of Anesthesia [facility] * YOGESH Zazueta Lauren R: PERFORM Event Display: Anes H&P Authored Date: [id number] MELD score from 03/21/23 labs: 03/21/23 Labs 12/29/22 [facility] Note (Luna Gan) Per ortho H&P and emessages: they are in discussion with patient's knotting machine operator regarding preopmanagement. They've ordered CBC for morning of procedure (Plt 55 on 03/21/23) Electronic Signature on File Electronically Reviewed/Signed by: YOGESH Fuentes Author Signature Dt/Tm:03/22/2023 09:38 AM Department of Anesthesia Electronically Reviewed/Signed by: Sandra Skaggs MD Cosigner Signature Dt/Tm: 03/23/2023 11:58 AM Department of Anesthesia [facility] Patient Care team information Care Team Personnel Name: MD Paz Brett R Position: Referring DIRECT Member Role: Primary Care Provider Address: Address: [address] [place] [id number] [place] Care Team Related Persons Name: MALCOM BURDEN Milka Address: home [address] [id number]
--- OUTSIDE RECORDS SUMMARY | 2023-05-14 06:40 | External Medical Summary | Summary of Care ---
Author Name Unknown Organization [facility] Address [address] [place] [address] Phone [phone] Care Team Providers Care Waiter/Waitress Counter Name Role Phone Toby Singh MD Primary Care Provider [phone] Reason for Visit * Reason Comments eRx-Medication Refill Encounter Details Date Type Department Care Team (Late st Contact Info) Description 03/03/2023 Refill [facility] [address] [place] [address] Brain Baig MD [address] [place] [address] Allergies Active Allergy Reactions Criticality Noted Date Comments Other Allergy (See Comments) Anaphylaxis High 06/21/2018 Bee stings- swelling documented as of this encounter (statuses as of 03/03/2023) Medications Medication Sig Dispensed Refills Start Date [...] every morning 30 Tablet 2 03/03/2023 Active Furosemide 40 MG Oral Tablet (Lasix) take 1 tablet by mouth every morning 30 Tablet 2 11/28/2022 12/01/202 3 Discontinued Hospital, Clinic, or Other Facility Administered Medication Ordered Dose Route Frequency Start Date End Date Status albuterol sulfate (PROVENTIL) (2.5 MG/3ML) 0.083% inhalation solution 2.5 mgIndications:SOB (shortness of breath) 2.5 mg NEBULIZER Q4H PRN 05/10/2018 Act guzman documented as of this encounter (statuses as of 03/03/2023) Active Problems Problem Noted Date Diagnosed Date [...] ischemic heart disease 002 Overview: father had MN's in 40's Gastroesophageal reflux disease with esophagitis documented as of this encounter (statuses as of 03/03/2023) Resolved Problems Problem Noted Date Diagnosed Date Resolved Date Facial swelling 06/09/2017 08/07/2019 Urticaria 06/09/2017 08/07/2019 Intestinal obstruction 05/09/201203/02 CLASSICAL MIGRAINE WITHOU ME NTION OF INTRACTABLE MIGRAINE 11/29/2001 08/07/2019 Undiagnosed cardiac murmurs 11/29/2001 03/02/2017 Overview: Not Banner on 11/29/01 documented as of this encounter (statuses as of 03/03/2023) Immunizations Name Administration Dates Next Due HEP A - Hepatitis A (Adult > 18 yrs) 06/06/2020 Pneumococcal Conjugate Vacci ne, 20-valent ([id number]) 06/24/2022 SEASONAL INFLUENZA, PF, 6 M & [...] encounter Miscellaneous Notes * Telephone Encounter - Cachorro Barragan [facility] - 03/03/2023 1:58 PM EST Signed Prescriptions: Disp Refills Furosemide 40 MG Oral Tablet (Lasix) 30 Tab*2 Sig: take 1 tabletby mouth every morningAuthorizing Provider: TOBY SINGH User: CACHORRO BARRAGAN documented in this encounter Plan of Treatment Upcoming Encounters Date Type Department Care Team (Late st Contact Info) Description 04/11/2023 3:00 PM EST Office Visit Gastroenterology, [facility] [address] [address] Keyanna Gordon CRNP [address] [place] [address] 05/11/2023 2:40 PM EST Office Visit Hepatology, [facility] [address] [place] [address] Marilou Andrews DO [address] [place] [address] Scheduled Procedures Name Priority Associated Diagnoses Date/Ti [...] documented as of this encounter Care Teams Waiter/Waitress Counter Relationship Specialty Start Date End Date Toby Singh MD [address] [place] [address] PCP - General Family Medicine 11/25/14 documented as of this encounter
--- OUTSIDE RECORDS SUMMARY | 2023-05-14 06:40 | External Medical Summary ---
Author Name Unknown Address Unknown Organization [facility] [address] [place] [address] Laboratory Report Ordering Provider Test Date Status LIZA LAROSE 03/31/2023 10:15:09 Final Observation Date Value Abnormality Reference (Units ) Status BUN 03/31/2023 10:15:09 16 6-20 (mg/dL) Final Creatinine 03/31/2023 10:15:09 1.0 0.6-1.2 (mg/dL) Final Glomerular filtration rate/1.73 sq M.predicted [Volume Rate/Area] in Serum, Plasma or Blood by Creatinine-based formula (CKD-EPI) 03/31/2023 10:15:09 >90 >=60 (mL/min) Final eGFR is calculated based on the CKD-EPI 2020 equation SODIUM 03/31/2023 10:15:09 141 135-146 (m mol/L) Final Potassium 03/31/2023 10:15:09 3.9 3.5-5.1 (m mol/L) Final Cl 03/31/2023 10:15:09 109 Above high normal 98 -107 (mmol/L) Final CO2 03/31/2023 10:15:09 20 Below low normal 22- 32 (mmol/L) Final Anion gap 03/31/2023 10:15:09 12 7-15 (mmol /L) Final Glucose 03/31/2023 10:15:09 157 Above high normal 70 -120 (mg/dL) Final Albumin 03/31/2023 10:15:09 3.5 Below low normal 3.8 -5.0 (g/dL) Final AST (Aspartate aminotransferase) 03/31/2023 10:15:09 42 10-50 (U/L) Fin al Alk Phos 03/31/2023 10:15:09 123 35-130 (U/ L) Final Bilirubin, Total 03/31/2023 10:15:09 2.1 Above high no rmal <=1.2 (mg/dL) Final Calcium 03/31/2023 10:15:09 9.1 8.4-10.2 ( mg/dL) Final Protein 03/31/2023 10:15:09 6.5 6.0-8.3 (g /dL) Final ALT (Alanine aminotransferase) 03/31/2023 10:15:09 27 10-50 (U/L) Ryder joyce Performing Location [facility] [address] [facility] [id number]
--- OUTSIDE RECORDS SUMMARY | 2023-05-14 06:41 | External Medical Summary | Summary of Care ---
Author Name Unknown Organization [facility] Address [address] [facility] [place] [address] Phone [phone] Care Team Providers Care Audio/Video Engineer Name Role Phone Toby Paz MD Primary Care Provider [phone]- [phone] Reason for Visit * Reason Comments Acute Pre op clearanceBrady need a script renewed for his sleeping pills Encounter Details Date Type Department Care Team (Latest Contact Info) Description 02/06/2023 12:40 PM EST Office Visit [facility] [address] [place] [address] Eris Sharpe MD [address] [place] [address] Avascular necrosis of bone of left hip (HCC)*; Alcoholic cirrhosis of liver without ascites (HCC); Thrombocytopenia (HCC); Old myocardial infarction; Transient ischemic attack; HTN, goal below 130/80; Dyslipidemia; Major depressive disorder with single episode, remission status unspecified; Age-related nuclear cataract, bilateral; Pre-operative cardiovascular examination Allergies Active Allergy Reactions Criticality Noted Date Comments Other Allergy (See Comments) Anaphylaxis High 06/21/2018 Bee stings- swelling documented as of this encounter (statuses as of 02/06/2023) Medications Medication Sig Dispensed Refills Start Date [...] BEFORE BEDTIME 90 Capsule 5 06/14/2022 Active Magnesium Oxide 400 (240 Mg) MG Oral Tablet (Mag-Ox) take 1 tablet by mouth IN THE MORNING AND BEFORE BEDTIME 60 Tablet 5 06/14/2022 Active Lactulose 10 GM/15ML Oral Solution (Constulose)Indicat ions:Hyperammonemia (HCC) Take 30 mL by mouth in the morning and 30 mL at noon and 30 mL in the evening and 30 mL before bedtime. 946 mL 5 07/19/2022 Active Atorvastatin Calcium 20 MG Oral Tablet (Lipitor)Indication s:Dyslipidemia take 1 tablet by mouth once daily 90 Tablet 1 07/27/2022 Active FLUoxetine HCl 10 MG Oral Capsule [...] before bedtime. 20 Capsule 0 01/12/2023 Active traZODone HCl 50 MG Oral Tablet (Desyrel)Indication s:Primary insomnia Take 1 Tablet by mouth at bedtime. 30 Tablet 5 01/17/2023 Active oxyCODONE HCl 5 MG Oral Tablet (Oxy IR)Indications:Hip pain, left,Avascular necrosis of bone of hip, unspecified laterality (HCC) Take 1 Tablet by mouth every 12 hours as needed for Pain, Severe. 30 Tablet 0 02/01/2023 Active Iron (Ferrous Sulfate) 325 (65 Fe) MG Oral Tablet Take by mouth. 0 [facility] or Other Facility Administered Medication Ordered Dose Route Frequency Start Date End Date Status albuterol sulfate (PROVENTIL) (2.5 MG/3ML) 0.083% inhalation solution 2.5 mgIndications:SOB (shortness of breath) 2.5 mg NEBULIZER Q4H PRN 05/10/2018 Act guzman documented as of this encounter (statuses as of 02/06/2023) Active Problems Problem Noted Date Diagnosed Date [...] ischemic heart disease 002 Overview: father had NE's in 40's Gastroesophageal reflux disease with esophagitis documented as of this encounter (statuses as of 02/06/2023) Resolved Problems Problem Noted Date Diagnosed Date Resolved Date Facial swelling 06/09/2017 08/07/2019 Urticaria 06/09/2017 08/07/2019 Intestinal obstruction 05/09/201203/02 CLASSICAL MIGRAINE WITHOU ME NTION OF INTRACTABLE MIGRAINE 11/29/2001 08/07/2019 Undiagnosed cardiac murmurs 11/29/2001 03/02/2017 Overview: Not Arthur on 11/29/01 documented as of this encounter (statuses as of 02/06/2023) Immunizations Name Administration Dates Next Due HEP A - Hepatitis A (Adult > 18 yrs) 06/06/2020 Pneumococcal Conjugate Vacci ne, 20-valent ([id number]) 06/24/2022 SEASONAL INFLUENZA, PF, 6 M & [...] Sign Reading Time Taken Comments Blood Pressure 106/62 02/06/2023 12:28 PM EST Pulse 66 02/06/2023 12:28 PM EST Temperature 36.9 C (98.4 F) 02/06/2023 12:[address] Respiratory Rate 17 02/06/2023 12:28 PM EST Oxygen Saturation 95% 02/06/2023 12:28 PM EST Inhaled Oxygen Concentration - - Weight 84.5 kg (186 lb 3.2 oz) 02/06/2023 12:28 PM EST Height - - Body Mass Index 28.31 12/08/2022 11:20 AM EDT documented in this encounter Functional Status Functional Status Response Date of Assess ment Does this person have seriou s difficulty walking or climbing stairs? Yes 08/23/2021 documented as of this encounter Progress Notes * Eris Sharpe MD - 02/06/2023 12:34 PM EST Images from the original note were not included. Assessment and Plan The patient is a 57-year-old male with past medical history of alcoholic cirrhosis, history of TIA,history of NE, hypertension, dyslipidemia, depression who presents for preop evaluation prior to left total hip arthroplasty scheduled for 06/02/2023 at [facility]. Revised cardiac risk score is 10%. His medical comorbidities are well-controlled. At this point he is appropriate to proceed with surgery as scheduled. He will get lab work per [facility] closer to the surgery date. He has evaluation with hepatology in early 2023 to confirm he was appropriate for surgery fromtheir standpoint. 1. Avascular necrosis of bone of left hip (HCC) 2. Alcoholic cirrhosis of liver without ascites (HCC) 3. Thrombocytopenia (HCC) 4. Old myocardial infarction 5. Transient ischemic attack 6. HTN, goal below 130/80 7. Dyslipidemia 8. Major depressive disorder with single episode, remission status unspecified 9. Age-related nuclear cataract, bilateral 10. Pre-operative cardiovascular examination Wrap-Up Follow up as needed. History of Present Illness The patient is a 57 year old male with past medical history of dyslipidemia, HTN, history of NE, cirrhosis, GERD, AVN of the hip, anemia who presents for pre op evaluation prior to left total hip arthroplasty scheduled on 06/02/2023 at [facility]. Patient with AVN of the left hip along with significant osteoarthritis resulting in severe left hippain. Patient currently ambulating with cane, however, has been using a wheelchair for mobility fora significant portion of the last couple of months. Reviewed past medical history. He has a history of hypertension under good control with BP 106/62. History of dyslipidemia on atorvastatin. History of alcoholic cirrhosis with MELD sodium score of 15following with hepatology. Noted history of TIA and NE. he was follow up with hepatology for medical clearance scheduled for early 2023. His medical conditions managed by our office under good control and would not limit his ability to proceed with surgery. His revised cardiac risk score is 10% based on history of NE and TIA. Past Medical History: Diagnosis Date Abdominal pain [...] performed by Lopez Shi MD at ENDOSCOPY [facility] COLONOSCOPY, DIAGNOSTIC (RECTUM) 05/18/2018 adenomatous polyps, diverticulosis, repeat 1yr/COLONOSCOPY FLEXIBLE PROXIMAL DIAGNOSTIC performed by Lopez Shi MD at ENDOSCOPY [facility] COLONOSCOPY, DIAGNOSTIC (RECTUM) 05/30/2019 adenomatous polyps, diverticulosis, repeat 3 yrs / COLONOSCOPY FLEXIBLE PROXIMAL DIAGNOSTIC performed by Lopez Shi MD at ENDOSCOPY [facility] COLONOSCOPY, DIAGNOSTIC (RECTUM) 06/30/2021 1-4mm in rectum, otherwise normal / biopsies normal / 5 year recall / COLONOSCOPY FLEXIBLE PROXIMALDIAGNOSTIC performed by Jena Camargo MD at ENDOSCOPY [facility] EGD, FLEXIBLE, DIAGNOSTIC 05/05/2014 normal bx/ESOPHAGOGASTRODUODENOSCOPY (EGD), FLEXIBLE, TRANSORAL, DIAGNOSTIC performed by Ki Huang MD at ENDOSCOPY [facility] EGD, FLEXIBLE, DIAGNOSTIC 04/11/2016 Schatzki ring, hiatal hernia, gastritis/ESOPHAGOGASTRODUODENOSCOPY (EGD), FLEXIBLE, TRANSORAL, DIAGNOSTIC performed by Ki Huang MD at [facility] EGD, FLEXIBLE, DIAGNOSTIC 01/24/2018 w/ [facility] EGD, FLEXIBLE, DIAGNOSTIC 07/17/2018 normal biopsies/ESOPHAGOGASTRODUODENOSCOPY (EGD), FLEXIBLE, TRANSORAL, DIAGNOSTIC performed by Lopez Shi MD at [facility] EGD, FLEXIBLE, DIAGNOSTIC 07/07/2020 sm hiatal hernia / ESOPHAGOGASTRODUODENOSCOPY (EGD), FLEXIBLE, TRANSORAL, DIAGNOSTIC performed by Lopez Shi MD at [facility] EGD, FLEXIBLE, DIAGNOSTIC 09/03/2021 esophageal varices, repeat 1 yr / ESOPHAGOGASTRODUODENOSCOPY (EGD), FLEXIBLE, TRANSORAL, DIAGNOSTICperformed by Alen Garcia DO at [facility] EGD, FLEXIBLE, DIAGNOSTIC 07/06/2022 Portal hypertensive gastropathy, eso varices, mild-mod inflammation on bx / ESOPHAGOGASTRODUODENOSCOPY (EGD), FLEXIBLE, TRANSORAL, DIAGNOSTIC performed by Lopez Shi MD at [facility] EGD, W/ENDOSCOPIC US 06/26/2018 retained food, repeat study/ESOPHAGOGASTRODUODENOSCOPY (EGD), FLEXIBLE, TRANSORAL, ENDOSCOPIC ULTRASOUND performed by Lopez Shi MD at [facility] EGD, W/ENDOSCOPIC US 07/17/2018 sludge gallbladder/ESOPHAGOGASTRODUODENOSCOPY (EGD), FLEXIBLE, TRANSORAL, ENDOSCOPIC ULTRASOUND performed by Lopez Shi MD at [facility] IR BIOPSY 02/14/2022 LAPAROSCOPY; CHOLECYSTECTOMY REDUCTION OF 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 04/26/2012 Exploratory laparotomy with extensive lysis of adhesions and repair of small bowel serosal REMOVAL OF RUPTURED APPENDIX 1978 Appendectomy, Rupt Appendx+Abscess Review of patient's allergies indicates: Allergen Reactions Other Allergy (See Comments) Anaphylaxis Bee stings- swelling Family History Problem Relation Age of Onset Neurological Disorder Mother Parkisons Heart Disorder Father NE in 40's Stroke Father Heart failure Father [...] Types: Cigarettes Quit date: 05/10/2015 Years since quittin.7 Passive exposure: Never Smokeless tobacco: Never Tobacco [...] Resource Strain: Not on file Food Insecurity: Unknown (01/29/2023) Hunger Vital Sign Worried About Running Out of Food in the Last Year: Patient refused Ran Out of Food in the Last Year: Patient refused Transportation Needs: Not on file Physical Activity: Not on file Stress: Not on file Social Connections: Not on file Intimate Partner Violence: Not on file Housing Stability: Not on file Physical Exam Vitals: 02/06/23 1228 Temp: 36.9 C (98.4 F) Pulse: 66 Resp: 17 SpO2: 95% BP: 106/62 Physical Exam Physical Exam Vitals reviewed. Constitutional: General: He is not in acute distress. Cardiovascular: Rate and Rhythm: Normal rate and regular rhythm. Heart sounds: No murmur heard. Pulmonary: Effort: Pulmonary effort is normal. No respiratory distress. Breath sounds: Normal breath sounds. No wheezing. Musculoskeletal: Right lower leg: No edema. Left lower leg: No edema. Neurological: General: No focal deficit present. Mental Status: He is alert. Psychiatric: Mood and Affect: Mood normal. Behavior: Behavior normal. I spent a total of 30-39 minutes (exact time 32 mins) on the date of service in preparation, delivery, and documentation of the care provided to Mauro Liu excluding any time spent in the performance of separately billed services. documented in this encounter Nursing Notes * Leeanna Mcdermott LPN - 02/06/2023 12:34 PM EST The patient has been properly identified by confirmation of name and date of . Chief Complaint Patient presents with Acute Pre op clearance Will need a script renewed for his sleeping pills documented in this encounter Plan of Treatment Upcoming Encounters Date Type Department Care Team (Late st Contact Info) Description 04/11/2023 3:00 PM EST Office Visit Gastroenterology, [facility] [address] [place] [address] Keyanna Gordon CRNP [address] [place] [address] 05/11/2023 2:40 PM EST Office Visit Hepatology, [facility] [address] [place] [address] Marilou Andrews DO [address] [place] [address] Scheduled Procedures Name Priority Associated Diagnoses Date/Ti [...] of bone of left hip (HCC)- Primary Alcoholic cirrhosis of liver without ascites (HCC) Alcoholic cirrhosis of liver Thrombocytopenia (HCC) Thrombocytopenia, unspecified Old myocardial infarction Transient ischemic attack Unspecified transient cerebral ischemia HTN, goal below 130/80 Unspecified essential hypertension Dyslipidemia Other and unspecified hyperlipidemia Major depressive disorder with single episode, remission status unspecified Age-related nuclear cataract, bilateral Senile nuclear sclerosis Pre-operative cardiovascular examination documented in this encounter Additional Health Concerns Infection Onset Date Last Indicated Resolved Time Hepatitis A 08/23/2021 08/23/2021 documented as of this encounter Care Teams Audio/Video Engineer Relationship Specialty Start Date End Date Toby Paz MD [address], [place] [id number] PCP - General Family Medicine 11/25/14 documented as of this encounter
--- OUTSIDE RECORDS SUMMARY | 2023-05-14 06:41 | External Medical Summary | Summary of Care ---
Author Name Unknown Organization [facility] Address [address] [place] [facility] [place] [address] Phone [phone] Care Team Providers Care Reinforcing Steel Worker Name Role Phone Kiley Singh MD Primary Care Provider [phone]- [phone] Reason for Visit * Reason Onset Date Comments Medication Refill 01/29/2023 Encounter Details Date Type Department Care Team (Late st Contact Info) Description 01/29/2023 Refill [facility] [address] [place] [address] Kiley Singh MD [address] [place] [address] Hip pain, left; Avascular necrosis of bone of hip, unspecified laterality (HCC) Allergies Active Allergy Reactions Criticality Noted Date Comments Other Allergy (See Comments) Anaphylaxis High 06/21/2018 Bee stings- swelling documented as of this encounter (statuses as of 02/01/2023) Medications Medication Sig Dispensed Refills Start Date [...] MG Oral Tablet (Desyrel)Indicati ons:Primary insomnia Take 1 Tablet by mouth at bedtime. 30 Tablet 5 01/17/2023 Active oxyCODONE HCl 5 MG Oral Tablet (Oxy IR)Indications:Hi p pain, left,Avascular necrosis of bone of hip, unspecified laterality (HCC) Take 1 Tablet by mouth every 12 hours as needed for Pain, Severe. 30 Tablet 0 02/01/2023 Active oxyCODONE HCl 5 MG Oral Tablet (Oxy IR)Indications:Hi p pain, left,Avascular necrosis of bone of hip, unspecified laterality (HCC) Take 1 Tablet by mouth every 12 hours as needed for Pain, Severe. 45 Tablet 0 10/10/2022 3 Discontinue d(Refill) Hospital, Clinic, or Other Facility Administered Medication Ordered Dose Route Frequency Start Date End Date Status albuterol sulfate (PROVENTIL) (2.5 MG/3ML) 0.083% inhalation solution 2.5 mgIndications:SOB (shortness of breath) 2.5 mg NEBULIZER Q4H PRN 05/10/2018 Act guzman documented as of this encounter (statuses as of 02/01/2023) Active Problems Problem Noted Date Diagnosed Date Alcohol dependence, uncomplicated 01/17/2023 AAA (abdominal aortic [...] as of this encounter (statuses as of 02/01/2023) Resolved Problems Problem Noted Date Diagnosed Date Resolved Date Facial swelling 06/09/2017 08/07/2019 Urticaria 06/09/2017 08/07/2019 Intestinal obstruction 05/09/201203/02 CLASSICAL MIGRAINE WITHOU ME NTION OF INTRACTABLE MIGRAINE 11/29/2001 08/07/2019 Undiagnosed cardiac murmurs 11/29/2001 03/02/2017 Overview: Not Wirt on 11/29/01 documented as of this encounter (statuses as of 02/01/2023) Immunizations Name Administration Dates Next Due HEP A - Hepatitis A (Adult > 18 yrs) 06/06/2020 Pneumococcal Conjugate Vacci ne, 20-valent ([id number]) 06/24/2022 SEASONAL INFLUENZA, PF, 6 M & [...] Telephone Encounter - Kiley Singh MD - 02/01/2023 2:14 PM EDTSigned Prescriptions: Disp Refills oxyCODONE HCl 5 MG Oral Tablet (Oxy IR) 30 Tab*0 Sig: Take 1 Tablet by mouth every 12 hours as needed for Pain, Severe.Authorizing Provider: KILEY SINGH---- * Telephone Encounter - Kiley Singh MD - 02/01/2023 2:13 PM EDT . * Telephone Encounter - Maryann Quesada [facility] - 02/01/2023 12:08 PM EDTPending Prescriptions: Disp Refills oxyCODONE HCl 5 MG Oral Tablet (Oxy IR) 45 Tab*0 Sig: Take 1 Tablet by mouth every 12 hours as needed for Pain, Severe. * Telephone Encounter - Maryann Quesada [facility] - 02/01/2023 12:05 PM EDT Last couple refills done by Orthopaedics. Patient is requesting from PCP. Please approve if agreeable. I have reviewed the patients controlled substance dispensing history in the Prescription Drug Monitoring Program in compliance with the [facility] regulations before prescribing a controlled substance. PDMP checked on 02/01/2023. Pending Prescriptions: Disp Refills oxyCODONE HCl 5 MG Oral Tablet (Oxy IR) 45 Tab*0 Sig: Take 1 Tablet by mouth every 12 hours as needed for Pain, Severe. Last Visit: 01/17/2023 (in office), Visit date not found (telemedicine) Next Visit: 02/06/2023 Date medication was last filled: 01/13/23 Date medication is due for refill: 01/20/23 [facility]: [facility] [id number] Is this request for a controlled substance? Yes and Urine Drug Screen Not completed Toxicology results: Results for orders placed or performed in visit on 08/23/21 TOXICOLOGY, URINE SCREEN W/ CONFIRMATION Result Value Amphetamine Negative Benzodiazepines Negative Cannabinoids Negative Cocaine Metabolite Negative Fentanyl Negative Hydrocodone / Hydromorphone Negative Methadone Metabolite Negative Morphine / Codeine Negative Oxycodone / Oxymorphone Negative Narrative Cutoff Concentrations: Drug Level Amphetamines [...] to confirmatory testing. Please approve if appropriate. Thank You, Maryann Quesada [facility] Clinical Pharmacist Centralized Clinical Pharmacy Services (CCPS) (formerly Telepharmacy) [phone] 02/01/2023, 12:05 PM * Telephone Encounter - Kiley Singh MD - 01/30/2023 2:17 PM EDTPending Prescriptions: Disp Refills oxyCODONE HCl 5 MG Oral Tablet (Oxy IR) 45 Tab*0 Sig: Take 1 Tablet by mouth every 12 hours as needed for Pain, Severe. * Telephone Encounter - Kiley Singh MD - 01/30/2023 2:16 PM EDT This has not been from us since October. * Telephone Encounter - Justina Collier [facility] - 01/30/2023 12:23 PM EDTPending Prescriptions: Disp Refills oxyCODONE HCl 5 MG Oral Tablet (Oxy IR) 45 Tab*0 Sig: Take 1 Tablet by mouth every 12 hours as needed for Pain, Severe. * Telephone Encounter - Justina Collier [facility] - 01/30/2023 12:12 PM EDT Medication most recent written by orthopedics. I have reviewed the patients controlled substance dispensing history in the Prescription Drug Monitoring Program in compliance with the [facility] regulations before prescribing a controlled substance. PDMP checked on 01/30/2023. Pending Prescriptions: Disp Refills oxyCODONE HCl 5 MG Oral Tablet (Oxy IR) 45 Tab*0 Sig: Take 1 Tablet by mouth every 12 hours as needed for Pain, Severe. Last Visit: 01/17/2023 (in office), Visit date not found (telemedicine) Next Visit: 02/06/2023 Date medication was last filled: 01/12/23 Date medication is due for refill: 01/29/23 [facility]acy: [facility] #[id number] [place] [address] Is this request for a controlled substance? Yes and Urine Drug Screen Not completed Toxicology results: Results for orders placed or performed in visit on 08/23/21 TOXICOLOGY, URINE SCREEN W/ CONFIRMATION Result Value Amphetamine Negative Benzodiazepines Negative Cannabinoids Negative Cocaine Metabolite Negative Fentanyl Negative Hydrocodone / Hydromorphone Negative Methadone Metabolite Negative Morphine / Codeine Negative Oxycodone / Oxymorphone Negative Narrative Cutoff Concentrations: Drug Level Amphetamines [...] to confirmatory testing. Please approve if appropriate. Justina Wilson PharmD Clinical Pharmacist Centralized Clinical Pharmacy Services ([facility]PS) (formerly Telepharmacy). [phone] 01/30/2023, 12:12 PM documented in this encounter Plan of Treatment Upcoming Encounters Date Type Department Care Team (Late st Contact Info) Description 02/06/2023 12:40 PM EST Office Visit [address] [phone] AugustEris MD [address] [place] [address] 04/11/2023 3:00 PM EST Office Visit Gastroenterology, [facility] [address] [facility] [address] Keyanna Gordon CRNP [address] [facility] [place] [address] 05/11/2023 2:40 PM EST Office Visit Hepatology, [facility] [address] [facility] [place] [address] Juliana Marilou Araceli, [address] [place] [address] Scheduled Procedures Name Priority Associated Diagnoses Date/Ti [...] documented as of this encounter Care Teams Reinforcing Steel Worker Relationship Specialty Start Date End Date Kiley Singh MD [address] [facility] [place] [address] PCP - General Family Medicine 11/25/14 documented as of this encounter
--- OUTSIDE RECORDS SUMMARY | 2023-05-14 06:41 | External Medical Summary | Summary of Care ---
Author Name Unknown Organization [facility] Address [address] [facility] [place] [address] Phone [phone] Care Team Providers Care Trestle Builder Name Role Phone Toby Paz MD Primary Care Provider +1- [phone] Reason for Visit * Reason Onset Date Comments Forms Request 02/15/2023 Encounter Details Date Type Department Care Team (Late st Contact Info) Description 02/15/2023 Telephone Gastroenterology, [facility] [address] [place] [address] Marilou Andrews DO [address] [place] [address] Forms Request Allergies Active Allergy Reactions Criticality Noted Date Comments Other Allergy (See Comments) Anaphylaxis High 06/21/2018 Bee stings- swelling documented as of this encounter (statuses as of 02/16/2023) Medications Medication Sig Dispensed Refills Start Date [...] at bedtime. 60 Tablet 5 02/06/2023 Active Hospital, Clinic, or Other Facility Administered Medication Ordered Dose Route Frequency Start Date End Date Status albuterol sulfate (PROVENTIL) (2.5 MG/3ML) 0.083% inhalation solution 2.5 mgIndications:SOB (shortness of breath) 2.5 mg NEBULIZER Q4H PRN 05/10/2018 Act guzman documented as of this encounter (statuses as of 02/16/2023) Active Problems Problem Noted Date Diagnosed Date [...] as of this encounter (statuses as of 02/16/2023) Resolved Problems Problem Noted Date Diagnosed Date Resolved Date Facial swelling 06/09/2017 08/07/2019 Urticaria 06/09/2017 08/07/2019 Intestinal obstruction 05/09/201203/02 CLASSICAL MIGRAINE WITHOU ME NTION OF INTRACTABLE MIGRAINE 11/29/2001 08/07/2019 Undiagnosed cardiac murmurs 11/29/2001 03/02/2017 Overview: Not [place] on 11/29/01 documented as of this encounter (statuses as of 02/16/2023) Immunizations Name Administration Dates Next Due HEP A - Hepatitis A (Adult > 18 yrs) 06/06/2020 Pneumococcal Conjugate Vacci ne, 20-valent ([id number]) 06/24/2022 SEASONAL INFLUENZA, PF, 6 M & [...] Telephone Encounter - Keyanna Gordon CRNP - 02/16/2023 11:08 AM EST He is high risk for hepatic decompensation from major surgery. Please fax the form into his chart. MELD 3.0: 12 at 12/29/2022 9:28 AM MELD-Na: 13 at 12/29/2022 9:28 AM Calculated from: Serum [...] years Sex: Male at 12/29/2022 9:28 AM When faxing the form back, provide that form, and our most recent office visit note. He would need to be evaluated and medically managed by [facility] hepatology before and during the surgery. I'd be happy to refer him to [facility] hepatology as an OP if that is what they prefer (if unable to go forward with surgery w just an in patient hepatology consult/management). YOGESH Orta * Telephone Encounter - Nellie Mendoza RN - 02/15/2023 12:21 PM EST Keyanna this look like an evaluation for risk for orthopedic SX from a hepatology standpoint. Placed on your desk. * Telephone Encounter - Tyron Almazan OSA - 02/15/2023 11:41 AM EST Pt needs form filled out for [facility]. Will bring form down. They would like the form faxed. Number is on the form documented in this encounter Plan of Treatment Upcoming Encounters Date Type Department Care Team (Late st Contact Info) Description 04/11/2023 3:00 PM EST Office Visit Gastroenterology, [facility] [address] [place] [address] Keyanna Gordon CRNP [address] [place] [address] 05/11/2023 2:40 PM EST Office Visit Hepatology, [facility] [address] [place] [address] Marilou Andrews DO [address] [place] [address] Scheduled Procedures Name Priority Associated Diagnoses Date/Ti [...] documented as of this encounter Care Teams Trestle Builder Relationship Specialty Start Date End Date Toby Paz MD [address] [place] [address] PCP - General Family Medicine 11/25/14 documented as of this encounter
--- OUTSIDE RECORDS SUMMARY | 2023-05-14 06:41 | External Medical Summary | Summary of Care ---
Author Name Unknown Organization [facility] Address [address] [facility] [place] [address] Phone [phone] Care Team Providers Care Rescue Boat Operator Name Role Phone Toby Paz MD Primary Care Provider +1- [phone] Encounter Details Date Type Department Care Team (Late st Contact Info) Description 02/20/2023 Patient Reported Data Patient Survey Ortho FORCE Allergies Active Allergy Reactions Criticality Noted Date Comments Other Allergy (See Comments) Anaphylaxis High 06/21/2018 Bee stings- swelling documented as of this encounter (statuses as of 02/20/2023) Medications Medication Sig Dispensed Refills Start Date [...] Pain, Severe. 30 Tablet 0 02/15/2023 Active Hospital, Clinic, or Other Facility Administered Medication Ordered Dose Route Frequency Start Date End Date Status albuterol sulfate (PROVENTIL) (2.5 MG/3ML) 0.083% inhalation solution 2.5 mgIndications:SOB (shortness of breath) 2.5 mg NEBULIZER Q4H PRN 05/10/2018 Act guzman documented as of this encounter (statuses as of 02/20/2023) Active Problems Problem Noted Date Diagnosed Date [...] ischemic heart disease 002 Overview: father had PR's in 40's Gastroesophageal reflux disease with esophagitis documented as of this encounter (statuses as of 02/20/2023) Resolved Problems Problem Noted Date Diagnosed Date Resolved Date Facial swelling 06/09/2017 08/07/2019 Urticaria 06/09/2017 08/07/2019 Intestinal obstruction 05/09/201203/02 CLASSICAL MIGRAINE WITHOU ME NTION OF INTRACTABLE MIGRAINE 11/29/2001 08/07/2019 Undiagnosed cardiac murmurs 11/29/2001 03/02/2017 Overview: Not [place] on 11/29/01 documented as of this encounter (statuses as of 02/20/2023) Immunizations Name Administration Dates Next Due HEP A - Hepatitis A (Adult > 18 yrs) 06/06/2020 Pneumococcal Conjugate Vacci ne, 20-valent ([id number]) 06/24/2022 SEASONAL INFLUENZA, PF, 6 M & [...] 04/11/2023 3:00 PM EST Office Visit Gastroenterology, [facility] [address] [place] [address] Keyanna Gordon CRNP [address] [place] [address] 05/11/2023 2:40 PM EST Office Visit Hepatology, [facility] [address] [place] [address] Marilou Andrews DO [address] [place] [address] Scheduled Procedures Name Priority Associated Diagnoses Date/Ti [...] documented as of this encounter Care Teams Rescue Boat Operator Relationship Specialty Start Date End Date Toby Paz MD [address] [place] [address] PCP - General Family Medicine 11/25/14 documented as of this encounter
--- OUTSIDE RECORDS SUMMARY | 2023-05-14 06:41 | External Medical Summary | Summary of Care ---
Author Name Unknown Organization [facility] Address [address] [facility] [address] Phone [phone] Care Team Providers Care Soap Inspector Name Role Phone Toby Paz MD Primary Care Provider +1- [phone] Encounter Details Date Type Department Care Team (Late st Contact Info) Description 02/06/2023 Telephone [facility] [address] [place] [address] Toby Paz MD [address] [place] [address] Allergies Active Allergy Reactions Criticality [...] Tablet Take by mouth. 0 Ac tive Hospital, Clinic, or Other Facility Administered Medication [...] ischemic heart disease 002 Overview: father had TX's in 40's Gastroesophageal reflux disease with esophagitis documented as of this encounter (statuses as of 02/06/2023) Resolved Problems Problem Noted Date Diagnosed Date Resolved Date Facial swelling 06/09/2017 08/07/2019 Urticaria 06/09/2017 08/07/2019 Intestinal obstruction 05/09/201203/02 CLASSICAL MIGRAINE WITHOU ME NTION OF INTRACTABLE MIGRAINE 11/29/2001 08/07/2019 Undiagnosed cardiac murmurs 11/29/2001 03/02/2017 Overview: Not [place] on 11/29/01 documented as of this encounter (statuses as of 02/06/2023) Immunizations Name Administration Dates Next Due HEP A - Hepatitis A (Adult > 18 yrs) 06/06/2020 Pneumococcal Conjugate Vacci ne, 20-valent ([id number]) 06/24/2022 SEASONAL INFLUENZA, PF, 6 M & [...] 3:00 PM EST Office Visit Gastroenterology, [facility] [address] [place] [address] Keyanna Gordon CRNP [address] [place] [address] 05/11/2023 2:40 PM EST Office Visit Hepatology, [facility] [address] [place] [address] Marilou Andrews DO [address] [place] [address] Scheduled Procedures Name Priority Associated Diagnoses Date/Ti [...] documented as of this encounter Care Teams Soap Inspector Relationship Specialty Start Date End Date Toby Paz MD [address] [place] [address] PCP - General Family Medicine 11/25/14 documented as of this encounter
--- OUTSIDE RECORDS SUMMARY | 2023-05-14 06:41 | External Medical Summary | Summary of Care ---
Author Name Unknown Organization [facility] Address [address] [place] [facility] [place] [place] [address] Phone [phone] Care Team Providers Care Cane Piler Name Role Phone Toby Paz MD Primary Care Provider +1- [phone] Reason for Visit * Reason Onset Date Comments Medication Problem 02/06/2023 Encounter Details Date Type Department Care Team (Late st Contact Info) Description 02/06/[address] [facility] [address] [place] [address] AugustEris MD [address] [place] [address] Medication Problem Allergies Active Allergy Reactions Criticality Noted Date Comments Other Allergy (See Comments) Anaphylaxis High 06/21/2018 Bee stings- swelling documented as of this encounter (statuses as of 02/15/2023) Medications Medication Sig Dispensed Refills Start Date [...] at bedtime. 60 Tablet 5 02/06/2023 Active traZODone HCl 50 MG Oral Tablet (Desyrel)Indicati ons:Primary insomnia Take 1 Tablet by mouth at bedtime. 30 Tablet 5 01/17/2023 3 Discontinue d(Refill) oxyCODONE HCl 5 MG Oral Tablet (Oxy IR)Indications:Hi p pain, left,Avascular necrosis of bone of hip, unspecified laterality (HCC) Take 1 Tablet by mouth every 12 hours as needed for Pain, Severe. 30 Tablet 0 02/01/2023 Discontinue d(Refill) Hospital, Clinic, or Other Facility Administered Medication Ordered Dose Route Frequency Start Date End Date Status albuterol sulfate (PROVENTIL) (2.5 MG/3ML) 0.083% inhalation solution 2.5 mgIndications:SOB (shortness of breath) 2.5 mg NEBULIZER Q4H PRN 05/10/2018 Act guzman documented as of this encounter (statuses as of 02/15/2023) Active Problems Problem Noted Date Diagnosed Date [...] as of this encounter (statuses as of 02/15/2023) Resolved Problems Problem Noted Date Diagnosed Date Resolved Date Facial swelling 06/09/2017 08/07/2019 Urticaria 06/09/2017 08/07/2019 Intestinal obstruction 05/09/201203/02 CLASSICAL MIGRAINE WITHOU ME NTION OF INTRACTABLE MIGRAINE 11/29/2001 08/07/2019 Undiagnosed cardiac murmurs 11/29/2001 03/02/2017 Overview: Not [place] on 11/29/01 documented as of this encounter (statuses as of 02/15/2023) Immunizations Name Administration Dates Next Due HEP A - Hepatitis A (Adult > 18 yrs) 06/06/2020 Pneumococcal Conjugate Vacci ne, 20-valent ([id number]) 06/24/2022 SEASONAL INFLUENZA, PF, 6 M & [...] Telephone Encounter - Toby Paz MD - 02/15/2023 1:44 PM EST Refill sent earlier today. * Telephone Encounter - Rosetta Mcadams - 02/15/2023 12:56 PM EST Pt's step daughter Jessy came in asking when oxycodone will be filled. He's been without for 2 days. He can't walk without oxycodone. * Telephone Encounter - Leeanna Mcdermott LPN - 02/14/2023 1:08 PM EST Called pharmacy and they are filling the 100 mg prescription now and I did contact the patient and he will get his medication this evening. * Telephone Encounter - Eris Sharpe MD - 02/14/2023 8:15 AM EST [facility] call [facility] and see if there is still an issue. I sent a new script for 100 mg over so from what I can tell he should be able to diamond picker the new dosing now. Eris Sharpe MD * Telephone Encounter - Eris Sharpe MD - 02/06/2023 5:11 PM EST New prescription for trazodone [facility] to [facility] with 100 mg dosing. Eris Sharpe MD * Telephone Encounter - Chelle Brewster LPN - 02/06/2023 3:01 PM EST Was trazodone discussed? * Telephone Encounter - Estefania Alexandre OSA - 02/06/2023 2:52 PM EST Patient's EC called. The pharmacy will not fill the Trazadone prescription as is until 02-11-2023. The pharmacy suggested that the prescription be written for 100 mg instead of 50, so they can fill the new dosage.. Patient is completely out of medication. [facility] uses the [facility] in [place]. Please call the patient/patient's EC with any information. Thank you. documented in this encounter Plan of Treatment Upcoming Encounters Date Type Department Care Team (Late st Contact Info) Description 04/11/2023 3:00 PM EST Office Visit Gastroenterology, [facility] [address] [place] [address] Keyanna Gordon CRNP [address] [place] [address] 05/11/2023 2:40 PM EST Office Visit Hepatology, [facility] [address] [place] [address] Marilou Andrews DO [address] [place] [address] Scheduled Procedures Name Priority Associated Diagnoses Date/Ti [...] as of this encounter Visit Diagnoses Diagnosis Primary insomnia Persistent disorder of initiating or maintaining sleep documented in this encounter Additional Health Concerns Infection Onset Date Last Indicated Resolved Time Hepatitis A 08/23/2021 08/23/2021 documented as of this encounter Care Teams Cane Piler Relationship Specialty Start Date End Date Toby Paz MD [address] [place] [address] PCP - General Family Medicine 11/25/14 documented as of this encounter
--- OUTSIDE RECORDS SUMMARY | 2023-05-14 06:41 | External Medical Summary | Summary of Care ---
Author Name Unknown Organization [facility] Address [address] [facility] [place] [address] Phone [phone] Care Team Providers Care Freelance Patternmaker Name Role Phone Kiley Singh MD Primary Care Provider +1- [phone] Reason for Visit * Reason Onset Date Comments Medication Refill 02/14/2023 Encounter Details Date Type Department Care Team (Late st Contact Info) Description 02/14/2023 Refill [facility] [address] [place] [address] Kiley Singh MD [address] [place] [address] Hip pain, left; Avascular necrosis [...] Pain, Severe. 30 Tablet 0 02/15/2023 Active oxyCODONE HCl 5 MG Oral Tablet (Oxy IR)Indications:Hi p pain, left,Avascular necrosis of bone of hip, unspecified laterality (HCC) Take 1 Tablet by mouth every 12 hours as needed for Pain, Severe. 30 Tablet 0 02/01/2023 3 Discontinue d(Refill) Hospital, Clinic, or Other [...] ischemic heart disease 002 Overview: father had PA's in 40's Gastroesophageal reflux disease with esophagitis documented as of this encounter (statuses as of 02/15/2023) Resolved Problems Problem Noted Date Diagnosed Date Resolved Date Facial swelling 06/09/2017 08/07/2019 Urticaria 06/09/2017 08/07/2019 Intestinal obstruction 05/09/201203/02 CLASSICAL MIGRAINE WITHOU ME NTION OF INTRACTABLE MIGRAINE 11/29/2001 08/07/2019 Undiagnosed cardiac murmurs 11/29/2001 03/02/2017 Overview: Not [place] on 11/29/01 documented as of this encounter (statuses as of 02/15/2023) Immunizations Name Administration Dates Next Due HEP A - Hepatitis A (Adult > 18 yrs) 06/06/2020 Pneumococcal Conjugate Vacci ne, 20-valent ([id number]) 06/24/2022 SEASONAL INFLUENZA, PF, 6 M & [...] Telephone Encounter - Kiley Singh MD - 02/15/2023 1:25 PM ESTSigned Prescriptions: Disp Refills oxyCODONE HCl 5 MG Oral Tablet (Oxy IR) 30 Tab*0 Sig: Take 1 Tablet by mouth every 12 hours as needed for Pain, Severe.Authorizing Provider: KILEY SINGH----- * Telephone Encounter - Kiley Singh MD - 02/15/2023 1:25 PM ESTSigned Prescriptions: Disp Refills oxyCODONE HCl 5 MG Oral Tablet (Oxy IR) 30 Tab*0 Sig: Take 1 Tablet by mouth every 12 hours as needed for Pain, Severe.Authorizing Provider: KILEY SINGH----- * Telephone Encounter - Mildred Santos CPhT - 02/15/2023 9:12 AM EST Pt EC calling to check on status of oxycodone. Caller states pt is low on med, requesting high priority. Thank you, Mildred Santos, Tech 1 Mock Up Assembler [facility] ([facility] (formerly Telepharmacy) 02/15/2023, 9:12 AM * Telephone Encounter - Cachorro Barragan [facility] - 02/15/2023 8:28 AM EST Pending Prescriptions: Disp Refills oxyCODONE HCl 5 MG Oral Tablet (Oxy IR) 30 Tab*0 Sig: Take 1 Tablet by mouth every 12 hours as needed for Pain, Severe. * Telephone Encounter - Cachorro Barragan [facility] - 02/15/2023 8:26 AM EST I have reviewed the patients controlled substance dispensing history in the Prescription Drug Monitoring Program in compliance with the [facility] regulations before prescribing a controlled substance. PDMP checked on 02/15/2023. Pending Prescriptions: Disp Refills oxyCODONE HCl 5 MG Oral Tablet (Oxy IR) 30 Tab*0 Sig: Take 1 Tablet by mouth every 12 hours as needed for Pain, Severe. Last Visit: 02/06/2023 (in office), Visit date not found (telemedicine) Next Visit: Visit date not found Date medication was last filled: 02/01/2023 Date medication is due for refill: 02/15/2023 [facility]acy: [facility] #[id number] Is this request for a controlled [...] confirmatory testing. Please approve if appropriate. Thank you, Ezekiel Barragan, PharmD Clinical Pharmacist [facility] ([facility]) 02/15/23 8:26 AM [phone] documented in this encounter Plan of Treatment Upcoming Encounters Date Type Department Care Team (Late st Contact Info) Description 04/11/2023 3:00 PM EST Office Visit Gastroenterology, [facility] [address] [place] [address] Keyanna Gordon CRNP [address] [place] [address] 05/11/2023 2:40 PM EST Office Visit Hepatology, [facility] [address] [place] [address] Marilou Andrews DO [address] [place] [address] Scheduled Procedures Name Priority Associated Diagnoses Date/Ti [...] documented as of this encounter Care Teams Freelance Patternmaker Relationship Specialty Start Date End Date Kiley Singh MD [address] [place] [address] PCP - General Family Medicine 11/25/14 documented as of this encounter
--- OUTSIDE RECORDS SUMMARY | 2023-05-14 06:41 | External Medical Summary | Summary of Care ---
Author Name Unknown Organization [facility] Address [address] [facility] [place] [address] Phone [phone] Care Team Providers Care Rewinder Operator Helper Name Role Phone Toby Paz MD Primary Care Provider +1- [phone] Reason for Visit * Reason Onset Date Comments Medication Problem 02/06/2023 Encounter Details Date Type Department Care Team (Late st Contact Info) Description 02/06/2023 Telephone [facility] [address] [place] [address] AugustEris MD [address] [place] [address] Medication Problem Allergies Active Allergy Reactions Criticality Noted Date Comments Other Allergy (See Comments) Anaphylaxis High 06/21/2018 Bee stings- swelling documented as of this encounter (statuses as of 02/14/2023) Medications Medication Sig Dispensed Refills Start Date [...] before bedtime. 20 Capsule 0 01/12/2023 Active oxyCODONE HCl 5 MG Oral Tablet [...] 30 Tablet 5 01/17/2023 3 Discontinue d(Refill) Hospital, Clinic, or Other Facility Administered Medication Ordered Dose Route Frequency Start Date End Date Status albuterol sulfate (PROVENTIL) (2.5 MG/3ML) 0.083% inhalation solution 2.5 mgIndications:SOB (shortness of breath) 2.5 mg NEBULIZER Q4H PRN 05/10/2018 Act guzman documented as of this encounter (statuses as of 02/14/2023) Active Problems Problem Noted Date Diagnosed Date [...] as of this encounter (statuses as of 02/14/2023) Resolved Problems Problem Noted Date Diagnosed Date Resolved Date Facial swelling 06/09/2017 08/07/2019 Urticaria 06/09/2017 08/07/2019 Intestinal obstruction 05/09/201203/02 CLASSICAL MIGRAINE WITHOU ME NTION OF INTRACTABLE MIGRAINE 11/29/2001 08/07/2019 Undiagnosed cardiac murmurs 11/29/2001 03/02/2017 Overview: Not [place] on 11/29/01 documented as of this encounter (statuses as of 02/14/2023) Immunizations Name Administration Dates Next Due HEP A - Hepatitis A (Adult > 18 yrs) 06/06/2020 Pneumococcal Conjugate Vacci ne, 20-valent ([id number]) 06/24/2022 SEASONAL INFLUENZA, PF, 6 M & [...] 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 Eris Sharpe MD [...] medication. [facility] uses the [facility] in [place]. Please call the patient/patient's EC with any information. Thank you. documented in this encounter Plan of Treatment Upcoming Encounters Date Type Department Care Team (Late st Contact Info) Description 04/11/2023 3:00 PM EST Office Visit Gastroenterology, [facility] [address] [place] [address] Keyanna Gordon CRNP [address] [place] [address] 05/11/2023 2:40 PM EST Office Visit Hepatology, [facility] [address] [place] [address] Marilou Andrews DO [address] [place] [address] Scheduled Procedures Name Priority Associated Diagnoses Date/Ti [...] documented as of this encounter Care Teams Rewinder Operator Helper Relationship Specialty Start Date End Date Toby Paz MD [address] [place] [address] PCP - General Family Medicine 11/25/14 documented as of this encounter
--- OUTSIDE RECORDS SUMMARY | 2023-05-14 06:41 | External Medical Summary | Summary of Care ---
Author Name Unknown Organization [facility] Address [address] [place] [facility] [place] [facility] [place] [address] Phone [phone] Care Team Providers Care Centrifugal Spinner Name Role Phone Toby Paz MD Primary Care Provider +1- [phone] Reason for Visit * Reason Onset Date Comments Medication Problem 02/06/2023 Encounter Details Date Type Department Care Team (Late st Contact Info) Description 02/06/2023 Telephone [facility] [address] [place] [address] AugustEris MD [address] [place] [address] Medication Problem Allergies Active Allergy [...] ischemic heart disease 002 Overview: father had GA's in 40's Gastroesophageal reflux disease with esophagitis documented as of this encounter (statuses as of 02/06/2023) Resolved Problems Problem Noted Date Diagnosed Date Resolved Date Facial swelling 06/09/2017 08/07/2019 Urticaria 06/09/2017 08/07/2019 Intestinal obstruction 05/09/201203/02 CLASSICAL MIGRAINE WITHOU ME NTION OF INTRACTABLE MIGRAINE 11/29/2001 08/07/2019 Undiagnosed cardiac murmurs 11/29/2001 03/02/2017 Overview: Not [place] on 11/29/01 documented as of this encounter (statuses as of 02/06/2023) Immunizations Name Administration Dates Next Due HEP A - Hepatitis A (Adult > 18 yrs) 06/06/2020 Pneumococcal Conjugate Vacci ne, 20-valent ([id number]) 06/24/2022 SEASONAL INFLUENZA, PF, 6 M & [...] medication. [facility] uses the [facility] in [place]. Please call the patient/patient's EC with any information. Thank you. documented in this encounter Plan of Treatment Upcoming Encounters Date Type Department Care Team (Late st Contact Info) Description 04/11/2023 3:00 PM EST Office Visit Gastroenterology [address] [place] [address] Keyanna Gordon CRNP [address] [facility] [place] [address] 05/11/2023 2:40 PM EST Office Visit Hepatology, [address] [place] [address] Marilou Andrews DO [address] [place] [address] Scheduled Procedures Name Priority Associated Diagnoses Date/Ti [...] documented as of this encounter Care Teams Centrifugal Spinner Relationship Specialty Start Date End Date [facility] Paz [facility] [address] [facility] [address] PCP - General Family Medicine 11/25/14 documented as of this encounter
--- OUTSIDE RECORDS SUMMARY | 2023-05-14 06:41 | External Medical Summary | Summary of Care ---
Author Name Unknown Organization [facility] Address [address] [place] [address] Phone [phone] Care Team Providers Care Accreditation Specialist Name Role Phone Kiley Singh MD Primary Care Provider +1- [phone] Reason for Visit * Reason Comments eRx-Medication Refill Encounter Details Date Type Department Care Team (Late st Contact Info) Description 02/23/2023 Refill [facility] [address] [place] [address] Kiley Singh MD [address] [place] [address] Encounter for long-term (current) use of medications*; Dyslipidemia Allergies Active Allergy Reactions Criticality Noted Date Comments Other Allergy (See Comments) Anaphylaxis High 06/21/2018 Bee stings- swelling documented as of this encounter (statuses as of 02/24/2023) Medications Medication Sig Dispensed Refills Start Date [...] once daily 90 Tablet 2 02/24/2023 Active Atorvastatin Calcium 20 MG Oral Tablet (Lipitor)Indicat ions:Dyslipidemi a take 1 tablet by mouth once daily 90 Tablet 1 07/27/2022 3 Discontinued Hospital, Clinic, or Other Facility Administered Medication Ordered Dose Route Frequency Start Date End Date Status albuterol sulfate (PROVENTIL) (2.5 MG/3ML) 0.083% inhalation solution 2.5 mgIndications:SOB (shortness of breath) 2.5 mg NEBULIZER Q4H PRN 05/10/2018 Act guzman documented as of this encounter (statuses as of 02/24/2023) Active Problems Problem Noted Date Diagnosed Date [...] ischemic heart disease 002 Overview: father had [place]'s in 40's Gastroesophageal reflux disease with esophagitis documented as of this encounter (statuses as of 02/24/2023) Resolved Problems Problem Noted Date Diagnosed Date Resolved Date Facial swelling 06/09/2017 08/07/2019 Urticaria 06/09/2017 08/07/2019 Intestinal obstruction 05/09/201203/02 CLASSICAL MIGRAINE WITHOU ME NTION OF INTRACTABLE MIGRAINE 11/29/2001 08/07/2019 Undiagnosed cardiac murmurs 11/29/2001 03/02/2017 Overview: Not [place] on 11/29/01 documented as of this encounter (statuses as of 02/24/2023) Immunizations Name Administration Dates Next Due HEP A - Hepatitis A (Adult > 18 yrs) 06/06/2020 Pneumococcal Conjugate Vacci ne, 20-valent ([id number]) 06/24/2022 SEASONAL INFLUENZA, PF, 6 M & [...] encounter Miscellaneous Notes * Telephone Encounter - Russ Connolly [facility] - 02/24/2023 10:44 AM EST Signed Prescriptions: Disp Refills Atorvastatin Calcium 20 MG Oral Tablet (Li*90 Tab*2 Sig: take 1 tablet by mouth once dailyAuthorizing Provider: KILEY SINGH User: RUSS CONNOLLY E * Telephone Encounter - Russ Connolly [facility] - 02/24/2023 10:42 AM EST Provided 90 days supply with 2 refill(s) until next routine labs will approximately be drawn. Per refill protocol patient should have lipid panel on file within past year. Reviewed AMP report, Care Gaps/Health Maintenance, medications list, and for any routine labs typically ordered for this patient. Lab orders placed. Patient can complete labs with next routine lab work. Thank You, Russ Connolly, Pharm-D Clinical Pharmacist [facility] ([facility]) (Formerly [facility]pharm[facility]) [phone] 02/24/2023, 10:44 AM documented in this encounter Plan of Treatment Upcoming Encounters Date Type Department Care Team (Late st Contact Info) Description 04/11/2023 3:00 PM EST Office Visit Gastroenterology, [facility] [address] [place] [address] Keyanna Gordon CRNP [address] [place] [address] 05/11/2023 2:40 PM EST Office Visit Hepatology, [facility] [address] [place] [address] Marilou Andrews DO [address] [place] [address] Scheduled Orders Name Type Priority Associated Diagnoses Orde r Schedule LIPID PANEL WITH DIRECT LDL IF TG IS HIGH Lab Routine Encounter for long-term (current) use of medications Expected: 02/25/2023 (Approximate), Expires: 02/25/2024 Scheduled Procedures Name Priority Associated Diagnoses Date/Ti [...] Diagnosis Encounter for long-term (current) use of medications- Primary Encounter for long-term (current) use of other medications Dyslipidemia Other and unspecified hyperlipidemia documented in this encounter Additional Health Concerns Infection Onset Date Last Indicated Resolved Time Hepatitis A 08/23/2021 08/23/2021 documented as of this encounter Care Teams Accreditation Specialist Relationship Specialty Start Date End Date Kiley Singh MD [address] [place] [address] PCP - General Family Medicine 11/25/14 documented as of this encounter
--- OUTSIDE RECORDS SUMMARY | 2023-05-14 06:41 | External Medical Summary | Summary of Care ---
Author Name Unknown Organization [facility] Address [address] [place] [facility] [place] [address] Phone [phone] Care Team Providers Care Cloth Measurer Name Role Phone Toby Paz MD Primary Care Provider +1- [phone] Reason for Visit * Reason Onset Date Comments Medication Problem 02/06/2023 Encounter Details Date Type Department Care Team (Late st Contact Info) Description 02/06/2023 Telephone [facility] [address] [place] [address] AugustEris MD [address] [place] [address] Medication Problem Allergies Active Allergy [...] ischemic heart disease 002 Overview: father had [place]'s in 40's Gastroesophageal reflux disease with esophagitis documented as of this encounter (statuses as of 02/14/2023) Resolved Problems Problem Noted Date Diagnosed Date Resolved Date Facial swelling 06/09/2017 08/07/2019 Urticaria 06/09/2017 08/07/2019 Intestinal obstruction 05/09/201203/02 CLASSICAL MIGRAINE WITHOU ME NTION OF INTRACTABLE MIGRAINE 11/29/2001 08/07/2019 Undiagnosed cardiac murmurs 11/29/2001 03/02/2017 Overview: Not [place] on 11/29/01 documented as of this encounter (statuses as of 02/14/2023) Immunizations Name Administration Dates Next Due HEP A - Hepatitis A (Adult > 18 yrs) 06/06/2020 Pneumococcal Conjugate Vacci ne, 20-valent ([id number]) 06/24/2022 SEASONAL INFLUENZA, PF, 6 M & [...] encounter Miscellaneous Notes * Telephone Encounter - Leeanna Mcdermott LPN [...] can tell he should be able to turkey picker the new dosing now. Eris Sharpe MD * Telephone Encounter - Eris Sharpe MD - 02/06/2023 5:11 PM EST [facility] with 100 mg dosing. Eris Sharpe MD [...] medication. Patient uses the [facility] in [place]. Please call the patient/patient's EC with any information. Thank you. documented in this encounter Plan of Treatment Upcoming Encounters Date Type Department Care Team (Late st Contact Info) Description 04/11/2023 3:00 PM EST Office Visit Gastroenterology, [facility] [address] [place] [address] Keyanna Gordon CRNP [address] [place] [address] 05/11/2023 2:40 PM EST Office Visit Hepatology, [facility] [address] [place] [address] Marilou Andrews DO [address] [place] [address] Scheduled Procedures Name Priority Associated Diagnoses Date/Ti [...] documented as of this encounter Care Teams Cloth Measurer Relationship Specialty Start Date End Date Toby Paz MD [address] [place] [address] PCP - General Family Medicine 11/25/14 documented as of this encounter
--- OUTSIDE RECORDS SUMMARY | 2023-05-14 06:41 | External Medical Summary | Summary of Care ---
Author Name Unknown Organization [facility] Address [address] [facility] [place] [address] Phone [phone] Care Team Providers Care Panel Machine Operator Name Role Phone Toby Paz MD Primary Care Provider +1- [phone] Reason for Visit * Reason Onset Date Comments Forms Request 02/15/2023 Encounter Details Date Type Department Care Team (Late st Contact Info) Description 02/15/2023 Telephone Gastroenterology, [facility] [address] [place] [address] Marilou Andrews DO [address] [place] [address] Forms Request Allergies Active Allergy Reactions Criticality [...] Undiagnosed cardiac murmurs 11/29/2001 03/02/2017 Overview: Not [place] on 11/29/01 documented as of this encounter (statuses as of 02/16/2023) Immunizations Name Administration Dates Next Due HEP A - Hepatitis A (Adult > 18 yrs) 06/06/2020 Pneumococcal Conjugate Vacci ne, 20-valent ([id number]) 06/24/2022 SEASONAL INFLUENZA, PF, 6 M & [...] to be evaluated and medically managed by [facility] hepatology before and during the surgery. I'd be happy to refer him to [facility] hepatology as an OP if that is [...] EST Pt needs form filled out for [facility]. Will bring form down. They would like the form faxed. Number is on the form documented in this encounter Plan of Treatment Upcoming Encounters Date Type Department Care Team (Late st Contact Info) Description 04/11/2023 3:00 PM EST Office Visit Gastroenterology, [facility] [address] [place] [address] Keyanna Gordon CRNP [address] [place] [address] 05/11/2023 2:40 PM EST Office Visit Hepatology, [facility] [address] [place] [address] Marilou Andrews DO [address] [place] [address] Scheduled Procedures Name Priority Associated Diagnoses Date/Ti [...] documented as of this encounter Care Teams Panel Machine Operator Relationship Specialty Start Date End Date Toby Paz MD [address] [place] [address] PCP - General Family Medicine 11/25/14 documented as of this encounter
--- OUTSIDE RECORDS SUMMARY | 2023-05-14 06:41 | External Medical Summary | Summary of Care ---
Author Name Unknown Organization [facility] Address [address] [facility] [place] [address] Phone [phone] Care Team Providers Care 8Th Grade Teacher Name Role Phone Toby Paz MD Primary Care Provider +1- [phone] Reason for Visit * Reason Onset Date Comments Forms Request 02/15/2023 Encounter Details Date Type Department Care Team (Late st Contact Info) Description 02/15/2023 Telephone Gastroenterology, [facility] [address] [place] [address] Marilou Andrews DO [address] [place] [phone] Forms Request Allergies Active Allergy Reactions Criticality [...] Undiagnosed cardiac murmurs 11/29/2001 03/02/2017 Overview: Not [place] on 11/29/01 documented as of this encounter (statuses as of 02/16/2023) Immunizations Name Administration Dates Next Due HEP A - Hepatitis A (Adult > 18 yrs) 06/06/2020 Pneumococcal Conjugate Vacci ne, 20-valent ([id number]) 06/24/2022 SEASONAL INFLUENZA, PF, 6 M & [...] encounter Miscellaneous Notes * Telephone Encounter - Nellie Mendoza RN - 02/16/2023 1:40 PM EST Faxed form and this encounter to as the fax we receive indicates. Keyanna is alsowilling to reach out the patient and place a referral if needed. * Telephone Encounter - Keyanna Gordon CRNP [...] to be evaluated and medically managed by [facility] hepatology before and during the surgery. I'd be happy to refer him to [facility] hepatology as an OP if that is [...] EST Pt needs form filled out for [facility]. Will bring form down. They would like the form faxed. Number is on the form documented in this encounter Plan of Treatment Upcoming Encounters Date Type Department Care Team (Late st Contact Info) Description 04/11/2023 3:00 PM EST Office Visit Gastroenterology, [facility] [address] [place] [address] Keyanna Gordon CRNP [address] [place] [address] 05/11/2023 2:40 PM EST Office Visit Hepatology, [facility] [address] [place] [address] Marilou Andrews DO [address] [place] [address] Scheduled Procedures Name Priority Associated Diagnoses Date/Ti [...] documented as of this encounter Care Teams 8Th Grade Teacher Relationship Specialty Start Date End Date Toby Paz MD [address] [place] [address] PCP - General Family Medicine 11/25/14 documented as of this encounter
--- OUTSIDE RECORDS SUMMARY | 2023-05-14 06:41 | External Medical Summary | Continuity of Care Document ---
Author Name Unknown [facility] [address] [place] [id number] Care Team Providers Care Aircraft Systems Technician Name Role Phone Toby Paz Primary Care Physician [phone] [id number] Date[facility]s): 01/18/23 - 01/18/23 [facility] [address] [facility] [place] [address] [facility] [address] [place] [address] [phone] Encounter Diagnosis Osteoarthritis of left hip(Discharge Diagnosis) - 01/18/23 Preop testing(Discharge Diagnosis) - 01/18/23 Encounter for screening for nutritional disorder(Discharge Diagnosis) - 01/18/23 Discharge Disposition: Home or Self Care Attending Physician: OLGA Santoyo, Laura Merritt Referring Physician: DO Short Michael David Allergies, Adverse Reactions, Alerts No Known Allergies Medications atorvastatin 20 mg oral tablet take 1 tablet by mouth once daily Start Date: 01/18/23 Status: Ordered FLUoxetine 10 mg oral capsule take 1 capsule by mouth every morning Start Date: 01/18/23 Status: Ordered furosemide 40 mg oral tablet take 1 tablet by mouth every morning Start Date: 01/18/23 Status: Ordered gabapentin 100 mg oral capsule take 1 capsule by mouth every morning and AT NOON and BEFORE BEDTIME Start Date: 01/18/23 Status: Ordered lactulose Start: 01/18/23 9:58:00 EDT, 30 mL, qid Start Date: 01/18/23 Status: Ordered magnesium oxide 400 mg (241.3 mg elemental magnesium) oral tablet Start: 01/18/23 9:57:00 EDT, 1 tab, PO, Daily Start Date: 01/18/23 Status: Ordered oxyCODONE 5 mg oral tablet TAKE 1 TABLET BY MOUTH TWICE DAILY NEEDED FOR PAIN Start Date: 01/18/23 Status: Ordered pantoprazole 40 mg oral delayed release tablet take 1 tablet by mouth twice a day Start Date: 01/18/23 Status: Ordered spironolactone Start: 01/18/23 9:57:00 EDT, 25 mg =, Daily Start Date: 01/18/23 Status: Ordered Xifaxan 550 mg oral tablet Start: 01/18/23 9:57:00 EDT Start Date: 01/18/23 Status: Ordered Mental Status 01/18/23 Barriers to Learning one year None evide nt Mandatory Health Literacy Documentation Yes Health Literacy Communication Barriers N ever Primary Language Yoruba Problem List Diagnosis Diagnosis Type Effective Dates Health Status Clinical Service Informant Osteoarthritis of left hip Discharge Diagnosis 01/18/23 Encounter for screening for nutritional disorder Discharge Diagnosis 01/18/23 Preop testing Discharge Diagnosis 01/18/23 Procedures Procedure Date Related Diagnosis Body Site Status Appendectomy Completed Bowel Completed Cholecystectomy Completed Vital Signs Most recent to oldest [Reference Range]: 1 Height 175.26 cm (01/18/23 9:58 AM) Patient Weight 86.5 kg (01/18/23 9:58 AM) Body Mass Index 28.16 kg/m2 (01/18/23 9:58 AM) Social History Social History Type Response Smoking Status Current some day lig ht smoker Sex Male Patient Care team information Care Team Personnel Name: MD Paz Brett R Position: Referring DIRECT Member Role: Primary Care Provider Address: Address: [address] [place] [address] [place] Care Team Related Persons Name: MALCOM BURDEN Address: home [address] [place] [address] [place] [phone]
--- OUTSIDE RECORDS SUMMARY | 2023-05-14 06:41 | External Medical Summary | Summary of Care ---
Author Name Unknown Organization [facility] Address [address] [facility] [place] [address] Phone [phone] Care Team Providers Care Corporate Vp Advertising & Online Name Role Phone Toby Paz MD Primary Care Provider +1- [phone] Reason for Visit * Reason Onset Date Comments Forms Request 02/15/2023 Encounter Details Date Type Department Care Team (Late st Contact Info) Description 02/15/2023 Telephone Gastroenterology, [facility] [address] [place] [address] Marilou Andrews DO [address] [place] [address] Forms Request Allergies Active Allergy Reactions Criticality Noted Date Comments Other Allergy (See Comments) Anaphylaxis High 06/21/2018 Bee stings- swelling documented as of this encounter (statuses as of 02/17/2023) Medications Medication Sig Dispensed Refills Start Date [...] as of this encounter (statuses as of 02/17/2023) Active Problems Problem Noted Date Diagnosed Date [...] ischemic heart disease 002 Overview: father had [place]'s in 40's Gastroesophageal reflux disease with esophagitis documented as of this encounter (statuses as of 02/17/2023) Resolved Problems Problem Noted Date Diagnosed Date Resolved Date Facial swelling 06/09/2017 08/07/2019 Urticaria 06/09/2017 08/07/2019 Intestinal obstruction 05/09/201203/02 CLASSICAL MIGRAINE WITHOU ME NTION OF INTRACTABLE MIGRAINE 11/29/2001 08/07/2019 Undiagnosed cardiac murmurs 11/29/2001 03/02/2017 Overview: Not [place] on 11/29/01 documented as of this encounter (statuses as of 02/17/2023) Immunizations Name Administration Dates Next Due HEP A - Hepatitis A (Adult > 18 yrs) 06/06/2020 Pneumococcal Conjugate Vacci ne, 20-valent ([id number]) 06/24/2022 SEASONAL INFLUENZA, PF, 6 M & [...] EST Faxed form and this encounter to [facility] as the fax we receive indicates. Keyanna [...] EST Pt needs form filled out for [facility]. Will bring form down. They would like the form faxed. Number is on the form documented in this encounter Plan of Treatment Upcoming Encounters Date Type Department Care Team (Late st Contact Info) Description 04/11/2023 3:00 PM EST Office Visit Gastroenterology, [facility] [address] [place] [address] Keyanna Gordon CRNP [address] [place] [address] 05/11/2023 2:40 PM EST Office Visit Hepatology, [facility] [address] [place] [address] Marilou Andrews DO [address] [place] [address] Scheduled Procedures Name Priority Associated Diagnoses Date/Ti [...] documented as of this encounter Care Teams Corporate Vp Advertising & Online Relationship Specialty Start Date End Date Toby Paz MD [address] [place] [address] PCP - General Family Medicine 11/25/14 documented as of this encounter
--- OUTSIDE RECORDS SUMMARY | 2023-05-14 06:41 | External Medical Summary | Summary of Care ---
Author Name Unknown Organization [facility] Address [address] [facility] [place] [address] Phone [phone] Care Team Providers Care Welding Machine Operator Thermit Name Role Phone Toby Paz MD Primary Care Provider +1- [phone] Reason for Visit * Reason Onset Date Comments Medication Problem 02/06/2023 Encounter Details Date Type Department Care Team (Late st Contact Info) Description 02/06/2023 Telephone [facility] [address] [place] [address] AugustEris MD [address] [place] [address] Medication Problem Allergies Active Allergy [...] Undiagnosed cardiac murmurs 11/29/2001 03/02/2017 Overview: Not [place] on 11/29/01 documented as of this encounter (statuses as of 02/15/2023) Immunizations Name Administration Dates Next Due HEP A - Hepatitis A (Adult > 18 yrs) 06/06/2020 Pneumococcal Conjugate Vacci ne, 20-valent ([id number]) 06/24/2022 SEASONAL INFLUENZA, PF, 6 M & [...] encounter Miscellaneous Notes * Telephone Encounter - Rosetta Mcaadms - 02/15/2023 12:56 PM EST Pt's step [...] 02/14/2023 8:15 AM EST [facility]. I sent a new script for 100 mg over so from what I can tell he should be able to pick up attendant the new dosing now. Eris Sharpe MD [...] medication. Patient uses the [facility] in [place]. Please call the patient/patient's EC with any information. Thank you. documented in this encounter Plan of Treatment Upcoming Encounters Date Type Department Care Team (Late st Contact Info) Description 04/11/2023 3:00 PM EST Office Visit Gastroenterology, [facility] [address] [place] [address] Keyanna Gordon CRNP [address] [place] [address] 05/11/2023 2:40 PM EST Office Visit Hepatology, [facility] [address] [place] [address] Marilou Andrews DO [address] [place] [address] Scheduled Procedures Name Priority Associated Diagnoses Date/Ti me COLONOSCOPY FLEXIBLE PROXIMAL DIAGNOSTIC Recall History of colon polyps Health Maintenance Due Date Last Done Comments Hepatitis B (1 of 3 - 3-dose series) 1965 COVID-19 Vaccine (#1) 01/12/1965 Albumin/Creatinine Ratio 1982 Zoster Vaccines (1 of 2) 2014 Depression Screening 03/22/2023 03/22/2022 GFR 12/30/2023 12/29/2022, 0710/2022, 07/28/2022, Additional history exists COLONOSCOPY-EVERY 3 YRS [...] documented as of this encounter Care Teams Welding Machine Operator Thermit Relationship Specialty Start Date End Date Toby Paz MD [address] [place] [address] PCP - General Family Medicine 11/25/14 documented as of this encounter
--- OUTSIDE RECORDS SUMMARY | 2023-05-14 06:42 | External Medical Summary | Summary of Care ---
Author Name Unknown Organization [facility] [address] [facility] [facility] [address] Phone [phone] Care Team Providers Care Coremaker Bench Name Role Phone Toby Paz MD Primary Care Provider +1- [phone] Reason for Visit * Reason Onset Date Comments Advice 12/23/2022 Encounter Details Date Type Department Care Team Description 12/23/2022 Telephone [facility]opa[facility] [address] [place] [address] Jayson Short, [address] [place] [address] Advice Allergies Active Allergy Reactions Severity Noted Date Comments Other Allergy (See Comments) Anaphylaxis High 2018 Bee stings- swelling documented as of this encounter (statuses as of 12/27/2022) Medications Medication Sig Dispensed Refills Start Date [...] 04/29/2022 Active Gabapentin 100 MG Oral Capsule (Neurontin)Indicatio ns:Complaint of paresthesia take 1 capsule by mouth every morning and AT NOON and BEFORE BEDTIME 90 Capsule 5 06/14/2022 Active Magnesium Oxide 400 (240 Mg) MG Oral Tablet (Mag-Ox) take 1 tablet by mouth IN THE MORNING AND BEFORE BEDTIME 60 Tablet 5 06/14/2022 Active Lactulose 10 GM/15ML Oral Solution (Constulose)Indicati ons:Hyperammonemia (HCC) Take 30 mL by mouth in the morning and 30 mL at noon and 30 mL in the evening and 30 mL before bedtime. 946 mL 5 07/19/2022 Active diazePAM 5 MG Oral Tablet (Valium) One tab 1 hour prior to liver MRI (scheduled for October 2022) 1 Tablet 0 07/19/2022 Active Atorvastatin Calcium 20 MG Oral Tablet (Lipitor)Indications :Dyslipidemia take 1 tablet by mouth once daily 90 Tablet 1 07/27/2022 Active LORazepam 1 MG Oral Tablet (Ativan) 2 tabs by mouth, one hour prior to MRI. 2 Tablet 0 10/06/2022 Active oxyCODONE HCl 5 MG Oral Tablet (Oxy IR)Indications:Hip pain, left,Avascular necrosis of bone of hip, unspecified laterality (HCC) Take 1 Tablet by mouth every 12 hours as needed for Pain, Severe. 45 Tablet 0 10/10/2022 Active FLUoxetine HCl 10 MG Oral Capsule [...] Tablet Delayed Release (Protonix)Indication s:Gastroesophageal reflux disease take 1 tablet by mouth twice a day 180 Tablet 3 11/28/2022 Active oxyCODONE HCl 5 MG Oral Tablet (Oxy IR)Indications:Hip pain, left Take 1 Tablet by mouth every 12 hours as needed for Pain, Severe. 15 Tablet 0 12/07/2022 Active Diclofenac Sodium 1 % External Gel (Voltaren) Apply topically to affected area 2 times a day. Apply to area lateral to left hip 150 g 6 12/08/2022 Active Hospital, Clinic, or Other Facility Administered Medication Ordered Dose Route Frequency Start Date End Date Status albuterol sulfate (PROVENTIL) (2.5 MG/3ML) 0.083% inhalation solution 2.5 mgIndications:SOB (shortness of breath) 2.5 mg NEBULIZER Q4H PRN 05/10/2018 Act guzman documented as of this encounter (statuses as of 12/27/2022) Active Problems Problem Noted Date AAA (abdominal aortic aneurysm) 10/26/19 Overview: 3.0 cm AAA noted on MRI Liver 10/18/22 Iron deficiency anemia due to chronic bl ood loss 07/01/2022 Anemia in other chronic diseases classif ied elsewhere 06/24/2022 Avascular necrosis of bone of hip 2022 Transient ischemic attack 06/17/2021 Cirrhosis of liver 06/17/2021 History of appendectomy 06/17/2021 Hx SBO 06/17/2021 Chronic alcohol abuse 06/17/2021 Subungual hematoma of finger of left mota d 05/27/2020 Old myocardial infarction 04/13/2020 Gastro-esophageal reflux disease without esophagitis 04/13/2020 Thrombocytopenia 04/13/2020 Internal hemorrhoids 04/13/2020 HTN, goal below 130/80 08/07/2019 Steatosis of liver 05/30/2018 Elevated LFTs 12/29/2017 Dyslipidemia 03/02/2017 Angioedema 06/29/2016 Seasonal allergic rhinitis due to pollen 06/29/2016 Family history of ischemic heart disease 11/29/2001 Overview: father had DC's in 40's Gastroesophageal reflux disease with eso phagitis documented as of this encounter (statuses as of 12/27/2022) Resolved Problems Problem Noted Date Resolved Date Facial swelling 06/09/2017 08/07/2019 Urticaria 06/09/2017 08/07/2019 Intestinal obstruction 05/09/2012 7 CLASSICAL MIGRAINE WITHOU MENTION OF INTRACTABLE MIGRAINE 11/29/2001 08/07/2019 Undiagnosed cardiac murmurs 11/29/200102/03 Overview: Not [place] on 11/29/01 documented as of this encounter (statuses as of 12/27/2022) Immunizations Name Administration Dates Next Due HEP A - Hepatitis A (Adult > 18 yrs) 06/06/2020 Pneumococcal Conjugate Vacci ne, 20-valent ([id number]) 06/24/2022 Seasonal Influenza Virus Vac cine, Unspecified Formulation 05/04/2021,01/13/2020,12/18/2018,2017,02/03/2017,12/22/2015,01/14/2015 Seasonal Influenza, PF, 6 mo ns & Above, IM , (Flulaval) 12/08/2022,12/14/2021,05/04/2021,2019,12/18/2018,02/01/2018,02/03/2017 Seasonal Influenza, Quadriva lent, No Preserve, [...] the weekends, No ETOH since December 2021 Food Insecurity Answer Date Recorded Within the past 12 months, y ou worried that your food would run out before you got money to buy more. Never true 08/27/2019 Within the past 12 months, t he food you bought just didn't last and you didn't have money to get more. Never true 08/27/2019 Sex Assigned at Date Recorded Male 11/24/2022 1:52 PM E DT Job Start Date Occupation Industry Not on file Not on file Not on file documented as of this encounter Functional Status Functional Status Response Date of Assess ment Does this person have seriou s difficulty walking or climbing stairs? Yes 08/23/2021 documented as of this encounter Miscellaneous Notes * Telephone Encounter - ABEBA Velasquez - 12/27/2022 9:19 AM EDT I would recommend patient be scheduled with either dr. Short or Lenny to discuss these concerns. Dr. Short did try to contact patient several times last week before he left and was unable toget a hold of patient. * Telephone Encounter - DAISHA Sena - 12/27/2022 9:09 AM EDT PLEASE call Carmen SUAREZ [phone]. Pt is in extreme, uncontrolled pain. They still are unaware that Dr. Short is not comfortable performing the surgery, and we cannot discuss that with them.They need to know this and his recommendation to tertiary center for undergoing total hip replacement and possible need to seek evaluation at other facility such as [facility]. * Telephone Encounter - DAISHA Black - 12/26/2022 11:14 AM EDT Pt significant other, Carmen, calling to see if pt would be able to have an appt with Dr. Short since it seems they've been missing each other by telephone the past few times either has attempted to contact the other regarding THR. First available was not until February, best call back numberis [phone], for Carmen, significant other. Thank you, Micaela Glasgow * Telephone Encounter - Jayson Short DO - 12/23/2022 3:58 PM EDT Attempted to contact patient today x2. Given the patient's medical comorbidities and higher risk for surgical procedure, recommend patient be referred to tertiary center for undergoing total hip replacement. Referral order previously placed. Patient has been seen in [place]. May need to seek evaluation at other facility such as [facility]. documented in this encounter Plan of Treatment Upcoming Encounters Date Type Specialty Care Team Description 12/27/2022 Office Visit Family Medicine Drea Raya MD [address] [place] [address] 12/29/2022 Office Visit Gastroenterology Keyanna Gordon CRNP [address] [place] [address] Scheduled Procedures Name Priority Associated Diagnoses Date/Ti me COLONOSCOPY FLEXIBLE PROXIMAL DIAGNOSTIC Recall History of colon polyps Health Maintenance Due Date Last Done Comments Hepatitis B (1 of 3 - 3-dose series) 1964 COVID-19 Vaccine (#1) 01/12/1965 Albumin/Creatinine Ratio 1982 Zoster Vaccines (1 of 2) 2014 Depression Screening 03/22/2023 03/22/2022 GFR 10/18/2023 10/17/2022, 07/03, 06/24/2022, Additional history exists COLONOSCOPY-EVERY 3 YRS AGES 18-100 06/30/2024 06/30/2021, 06/30/2021, 05/30/2019, Additional history exists Diabetes Screening 11/21/2025 11/21/2022, 0 11/03/2022, 10/17/2022, Additional history exists DTaP,Tdap,and Td Vaccines (2 [...] documented as of this encounter Care Teams Coremaker Bench Relationship Specialty Start Date End Date [facility]y Paz [facility] [address] [facility] [address] PCP - General Family Medicine 11/25/14 documented as of this encounter
--- OUTSIDE RECORDS SUMMARY | 2023-05-14 06:42 | External Medical Summary | Summary of Care ---
Author Name Unknown Organization [facility] Address [address] [facility] [address] Phone [phone] Care Team Providers Care Blow Pit Helper Name Role Phone Toby Paz MD Primary Care Provider [phone]- [phone] Reason for Visit * Reason Onset Date Comments Advice 12/23/2022 Encounter Details Date Type Department Care Team Description 12/23/2022 Telephone Orthopaedics [facility] [address] [place] [address] Jayson Short, [address] [place] [address] Advice Allergies Active Allergy Reactions Severity Noted Date Comments Other Allergy (See Comments) Anaphylaxis High 2018 Bee stings- swelling documented as of this encounter (statuses as of 12/28/2022) Medications Medication Sig Dispensed Refills Start Date [...] as of this encounter (statuses as of 12/28/2022) Active Problems Problem Noted Date AAA (abdominal [...] ischemic heart disease 11/29/2001 Overview: father had GA's in 40's Gastroesophageal reflux disease with eso phagitis documented as of this encounter (statuses as of 12/28/2022) Resolved Problems Problem Noted Date Resolved Date Facial swelling 06/09/2017 08/07/2019 Urticaria 06/09/2017 08/07/2019 Intestinal obstruction 05/09/2012 7 CLASSICAL MIGRAINE WITHOU MENTION OF INTRACTABLE MIGRAINE 11/29/2001 08/07/2019 Undiagnosed cardiac murmurs 11/29/200102/03 Overview: Not [place] on 11/29/01 documented as of this encounter (statuses as of 12/28/2022) Immunizations Name Administration Dates Next Due HEP A - Hepatitis A (Adult > 18 yrs) 06/06/2020 Pneumococcal Conjugate Vacci ne, 20-valent ([id number]) 06/24/2022 Seasonal Influenza Virus Vac cine, Unspecified [...] encounter Miscellaneous Notes * Telephone Encounter - Thao Agrawal - 12/28/2022 11:55 AM EDT Attempted to reach patient/Carmen GARCIA relaying phils message that there is no need for his appointment on unless he is seeking injection referral which would delay his surgery by 3 months as Mauro has been referred out of the [facility] system for care. Also relayed that medication called in. Ask that they let us know wherethey would like referral faxed to. * Telephone Encounter - ABEBA Velasquez - [...] 9:09 AM EDT PLEASE call Carmen SUAREZ [phone]. Pt is in extreme, uncontrolled pain. They still are unaware that Dr. Short is not comfortable performing the surgery, and we cannot discuss that with them.They need to know this and his recommendation to tertiary center for undergoing total hip replacement and possible need to seek evaluation at other facility such as [facility]. * Telephone Encounter - DAISHA Black - 12/26/2022 11:14 AM EDT Pt significant other, Carmen, calling to see if pt would be able to have an appt with Dr. Short since it seems they've been missing each other by telephone the past few times either has attempted to contact the other regarding THR. First available was not until February, best call back numberis [phone], for Carmen significant other. Thank you, Micaela Glasgow * Telephone Encounter - Jayson Short, - 12/23/2022 3:58 PM EDT Attempted to contact patient today x2. Given the patient's medical comorbidities and higher risk for surgical procedure, recommend patient be referred to tertiary center for undergoing total hip replacement. Referral order previously placed. Patient has been seen in [place]. May need to seek evaluation at other facility such as [facility]. documented in this encounter Plan of Treatment Upcoming Encounters Date Type Specialty Care Team Description 12/29/2022 Office Visit Gastroenterology Keyanna Gordon, YOGESH [address] [place] [address] 12/29/2022 Office Visit Orthopedics Martin Phelan PA-C [address] [place] [address] Scheduled Procedures Name Priority Associated Diagnoses Date/Ti [...] documented as of this encounter Care Teams Blow Pit Helper Relationship Specialty Start Date End Date Toby Paz MD [address] [place] [address] PCP - General Family Medicine 11/25/14 documented as of this encounter
--- OUTSIDE RECORDS SUMMARY | 2023-05-14 06:42 | External Medical Summary | Summary of Care ---
Author Name Unknown Organization [facility] Address [address] [place] [address] Phone [phone] Care Team Providers Care Sales Architect Name Role Phone Toby Paz MD Primary Care Provider [phone]- [phone] Reason for Visit * Reason Comments Hospital Follow-Up Has been having diff iculty sleeping at night due to hip pain Encounter Details Date Type Department Care Team Description 01/17/2023 Office Visit [facility] [address] [place] [address] AugustEris MD [address] [place] [address] Primary insomnia*; Avascular necrosis of bone of left hip (HCC); Alcoholic cirrhosis of liver without ascites (HCC); Thrombocytopenia (HCC); HTN, goal below 130/80; Dyslipidemia; Old myocardial infarction; Alcohol dependence, uncomplicated (HCC) Allergies Active Allergy Reactions Severity Noted Date Comments Other Allergy (See Comments) Anaphylaxis High 2018 Bee stings- swelling documented as of this encounter (statuses as of 01/17/2023) Medications Medication Sig Dispensed Refills Start Date [...] once daily 90 Tablet 1 07/27/2022 Active oxyCODONE HCl 5 MG Oral Tablet [...] at bedtime. 30 Tablet 5 01/17/2023 Active Hospital, Clinic, or Other Facility Administered Medication Ordered Dose Route Frequency Start Date End Date Status albuterol sulfate (PROVENTIL) (2.5 MG/3ML) 0.083% inhalation solution 2.5 mgIndications:SOB (shortness of breath) 2.5 mg NEBULIZER Q4H PRN 05/10/2018 Act guzman documented as of this encounter (statuses as of 01/17/2023) Active Problems Problem Noted Date Alcohol dependence, uncomplicated 2022 AAA (abdominal aortic aneurysm) 10/26/19 Overview: 3.0 [...] ischemic heart disease 11/29/2001 Overview: father had NJ's in 40's Gastroesophageal reflux disease with eso phagitis documented as of this encounter (statuses as of 01/17/2023) Resolved Problems Problem Noted Date Resolved Date Facial swelling 06/09/2017 08/07/2019 Urticaria 06/09/2017 08/07/2019 Intestinal obstruction 05/09/2012 7 CLASSICAL MIGRAINE WITHOU MENTION OF INTRACTABLE MIGRAINE 11/29/2001 08/07/2019 Undiagnosed cardiac murmurs 11/29/200102/03 Overview: Not [place] on 11/29/01 documented as of this encounter (statuses as of 01/17/2023) Immunizations Name Administration Dates Next Due HEP A - Hepatitis A (Adult > 18 yrs) 06/06/2020 Pneumococcal Conjugate Vacci ne, 20-valent ([id number]) 06/24/2022 SEASONAL INFLUENZA, PF, 6 M & [...] Sign Reading Time Taken Comments Blood Pressure 98/58 01/17/2023 1:42 PM EDT Pulse 74 01/17/2023 1:42 PM EDT Temperature 36.4 C (97.5 F) 01/17/2023 1:42 PM ED T Respiratory Rate 16 01/17/2023 1:42 PM EDT Oxygen Saturation - - Inhaled Oxygen Concentration - - Weight - - Height - - Body Mass Index - - documented in this encounter Functional Status Functional Status Response Date of Assess ment Does this person have sernaveenu s difficulty walking or climbing stairs? Yes 08/23/2021 documented as of this encounter Progress Notes * Eris Sharpe MD - 01/17/2023 2:05 PM EDT Images from the original note were not included. Assessment and Plan 57-year-old male with history of alcoholic cirrhosis with MELD-Na of 15, avascular necrosis of the left hip, thrombocytopenia, hypertension, dyslipidemia, history of NJ who presents for hospital follow up. He is doing well post hospitalization. Pain continues to be a major issue for which she takesoxycodone 5 mg up to twice daily. He seems stable from a hepatic standpoint. No changes to lactulose dosing. We will add trazodone to assist with sleep. Patient was scheduled with [facility] on 01/18/2023 for further evaluation of possible surgical intervention for avascularnecrosis. 1. Primary insomnia - traZODone HCl 50 MG Oral Tablet (Desyrel); Take 1 Tablet by mouth at bedtime. Dispense: 30 Tablet; Refill: 5 2. Avascular necrosis of bone of left hip (HCC) 3. Alcoholic cirrhosis of liver without ascites (HCC) 4. Thrombocytopenia (HCC) 5. HTN, goal below 130/80 6. Dyslipidemia 7. Old myocardial infarction 8. Alcohol dependence, uncomplicated (HCC) Wrap-Up Follow up as scheduled. History of Present Illness The patient is a 57-year-old male with past medical history of dyslipidemia, hypertension, history of NJ, history of TIA, cirrhosis with history of encephalopathy and known varices, avascular necrosis of the hip, iron-deficiency anemia who presents for hospital follow up. The patient was admitted to [facility] from 01/11/2023 through 01/13/2023. Patient presented with 5 days of worsening confusion. He did note he would missed a dose of lactulose. He did report having 5-6 loose bowel movements daily when on lactulose. He also noted severe left hip pain given history of femoral avascular necrosis. He does note falls at home secondary to the hip pain. He was previously supposed to have surgical intervention, however, this was canceled due to encephalopathy on the day of the surgery. He has been set up with appointment with [facility] to consider surgery at a tertiary care center where procedure maybe able to be carried out safely. Imaging completed during hospitalization included a chest x-ray within normal limits and an x-ray of the hip and pelvis which showed severe joint space narrowing of the left femoral acetabular joint and prominent AVN. CT of the abdomen and pelvis showed mildly dilated fluid-filled loops of bowel without obstruction. His ammonia was elevated on admission. It was determined that his confusionwas likely due to lack of sleep from his significant pain from his left hip. There was no evidence for SBP or other infection and therefore antibiotics were discontinued. He was seen by GI who did not recommend any new medications or changes to medications. He was also seen by Orthopedics who recommended evaluation at [facility] for consideration of surgical intervention on avascular necrosis. He was discharged on oxycodone 5 mg twice daily as needed for his pain. Today patient reports he is overall doing well other than the severe pain in his left hip. Denies confusion. He is eating and drinking normally. He is taking all medications as prescribed. He is limiting his oxycodone use as much as possible. There are days when he does not use any and other days when pain is severe the uses 5 mg twice daily. He does note that he is having significant difficulty s leeping due to pain in the left hip. He is wondering if there are any safe medications to assist with sleep. He is currently scheduled to be seen by [facility] [place] on 02/15/2023. Our office will reach out to see if there is any earlier appointments available. Physical Exam Vitals: 01/17/23 1342 Temp: 36.4 C (97.5 F) Pulse: 74 Resp: 16 BP: 98/58 Physical Exam Physical Exam Vitals reviewed. Constitutional: General: He is not in acute distress. Comments: Using wheelchair for mobility. Cardiovascular: Rate and Rhythm: Normal rate and regular rhythm. Heart sounds: No murmur heard. Pulmonary: Effort: Pulmonary effort is normal. No respiratory distress. Breath sounds: Normal breath sounds. No wheezing. Abdominal: General: There is no distension. Palpations: Abdomen is soft. Tenderness: There is no abdominal tenderness. Neurological: General: No focal deficit present. Mental Status: He is alert and oriented to person, place, and time. Comments: No asterixis. documented in this encounter Nursing Notes * Micaela Cherry LPN - 01/17/2023 1:42 PM EDT The patient has been properly identified by confirmation of name and date of . Chief Complaint Patient presents with Hospital Follow-Up Has been having difficulty sleeping at night due to hip pain documented in this encounter Plan of Treatment Upcoming Encounters Date Type Specialty Care Team Description 01/25/2023 Office Visit Orthopedics Evan Restrepo MD [facility] [place] [address] 04/11/2023 Office Visit Gastroenterology Kyeanna Gordon CRNP [address] [place] [address] 05/11/2023 Office Visit Gastroenterology Marilou Andrews DO [address] [place] [address] Scheduled Procedures Name Priority Associated Diagnoses Date/Ti [...] of this encounter Visit Diagnoses Diagnosis Primary insomnia- Primary Persistent disorder of initiating or maintaining sleep Avascular necrosis of bone of left hip (HCC) Alcoholic cirrhosis of liver without ascites (HCC) Alcoholic cirrhosis of liver Thrombocytopenia (HCC) Thrombocytopenia, unspecified HTN, goal below 130/80 Unspecified essential hypertension Dyslipidemia Other and unspecified hyperlipidemia Old myocardial infarction Alcohol dependence, uncomplicated (HCC) documented in this encounter Additional Health Concerns Infection Onset Date Last Indicated Resolved Time Hepatitis A 08/23/2021 08/23/2021 documented as of this encounter Care Teams Sales Architect Relationship Specialty Start Date End Date Toby Paz MD [address] [place], [place] [id number] PCP - General Family Medicine 11/25/14 documented as of this encounter
--- OUTSIDE RECORDS SUMMARY | 2023-05-14 06:42 | External Medical Summary | Summary of Care ---
Author Name Unknown Organization [facility] Address [address] [facility] [place] [address] Phone [phone] Care Team Providers Care Veterinary Attendant Name Role Phone Toby Paz MD Primary Care Provider +1- [phone] Encounter Details Date Type Department Care Team Description 01/12/2023 Orders Only Orthopaedics [facility] [address] [place] [address] Martin Phelan PA-C [address] [place] [address] Avascular necrosis of bone of hip, left (HCC)* Allergies Active Allergy Reactions Severity Noted Date Comments Other Allergy (See Comments) Anaphylaxis High 2018 Bee stings- swelling documented as of this encounter (statuses as of 01/12/2023) Medications Medication Sig Dispensed Refills Start Date [...] left hip 150 g 6 12/08/2022 Active oxyCODONE HCl 5 MG Oral Capsule (Oxy IR)Indications:Avasc ular necrosis of bone of hip, left (HCC) Take 1 Capsule by mouth in the morning and 1 Capsule before bedtime. 20 Capsule 0 01/12/2023 Active Hospital, Clinic, or Other Facility Administered Medication Ordered Dose Route Frequency Start Date End Date Status albuterol sulfate (PROVENTIL) (2.5 MG/3ML) 0.083% inhalation solution 2.5 mgIndications:SOB (shortness of breath) 2.5 mg NEBULIZER Q4H PRN 05/10/2018 Act guzman documented as of this encounter (statuses as of 01/12/2023) Active Problems Problem Noted Date AAA (abdominal [...] ischemic heart disease 11/29/2001 Overview: father had [place]'s in 40's Gastroesophageal reflux disease with eso phagitis documented as of this encounter (statuses as of 01/12/2023) Resolved Problems Problem Noted Date Resolved Date Facial swelling 06/09/2017 08/07/2019 Urticaria 06/09/2017 08/07/2019 Intestinal obstruction 05/09/2012 7 CLASSICAL MIGRAINE WITHOU MENTION OF INTRACTABLE MIGRAINE 11/29/2001 08/07/2019 Undiagnosed cardiac murmurs 11/29/200102/03 Overview: Not [place] on 11/29/01 documented as of this encounter (statuses as of 01/12/2023) Immunizations Name Administration Dates Next Due HEP A - Hepatitis A (Adult > 18 yrs) 06/06/2020 Pneumococcal Conjugate Vacci ne, 20-valent ([id number]) 06/24/2022 SEASONAL INFLUENZA, PF, 6 M & [...] as of this encounter Progress Notes * Martin Phelan PA-C - 01/12/2023 4:22 PM EDT Updated prescription sent to patient's preferred pharmacy per request. PDMP and allergy list reviewed before prescription placement. documented in this encounter Plan of Treatment Upcoming Encounters Date Type Specialty Care Team Description 01/25/2023 Office Visit Orthopedics Evan Restrepo MD [address] [place] [address] 04/11/2023 Office Visit Gastroenterology Keyanna Gordon CRNP [address] [place] [address] 05/11/2023 Office Visit Gastroenterology Marilou Andrews DO [address] [place] [address] Scheduled Procedures Name Priority Associated Diagnoses Date/Ti [...] Diagnoses Diagnosis Avascular necrosis of bone of hip, left (HCC)- Primary documented in this encounter Additional Health Concerns Infection Onset Date Last Indicated Resolved Time Hepatitis A 08/23/2021 08/23/2021 documented as of this encounter Care Teams Veterinary Attendant Relationship Specialty Start Date End Date Toby Paz MD [address] [place], [place] [id number] PCP - General Family Medicine 11/25/14 documented as of this encounter
--- OUTSIDE RECORDS SUMMARY | 2023-05-14 06:42 | External Medical Summary ---
Author Name Unknown Address Unknown Organization K0G[facility] [place] [address] [place] [id number] Laboratory Report Ordering Provider Test Date Status LIZA LAROSE 12/29/2022 09:28:37 Final Observation Date Value Abnormality Reference (Units ) Status Nucleated erythrocytes/100 leukocytes [Ratio] in Blood by Automated count 12/29/2022 09:28:37 Final Performing Location [facility] [address] [place] [id number]
--- OUTSIDE RECORDS SUMMARY | 2023-05-14 06:42 | External Medical Summary | Summary of Care ---
Author Name Unknown Organization [facility] Address [address] [facility] [place] [address] Phone [phone] Care Team Providers Care Neurology Epilepsy Physician Name Role Phone Toby Paz MD Primary Care Provider +1- [phone] Reason for Referral * Evaluate & Treat - Unlimited Visits (Within 3 days (urgent)) - Authorized Specialty Diagnoses / Procedures Referred By Pj t Referred To Contact Orthopaedic Surgery / Orthopedics Diagnoses Avascular necrosis of bone of hip, left (HCC) Secondary osteoarthritis of hip Martin Phelan PA-C [address] [place] [address] Referral ID Status Reason Start Date Expiration Date Visits Requested Visits Authorized [id number] Authorized Specialty Services Required 12/27/2022 999 999 Question Answer Referral Priority Within 3 days (urgent) What body part is the patient being seen for? Hip What condition is the patient being seen for? Arthritis including related infection Comments Tertiary placement for hip replacement - Recommending higher level of care due to medical comorbidities Encounter Details Date Type Department Care Team Description 12/27/2022 Orders Only Orthopaedics, Andriy Cabrera [address] [place] [address] Martin Phelan PA-C [address] [place] [address] Avascular necrosis of bone of hip, left (HCC)*; Secondary osteoarthritis of hip Allergies Active Allergy Reactions Severity Noted Date [...] 04/29/2022 Active Gabapentin 100 MG Oral Capsule (Neurontin)Indication s:Complaint of paresthesia take 1 capsule by mouth every morning and AT NOON and BEFORE BEDTIME 90 Capsule 5 06/14/2022 Active Magnesium Oxide 400 (240 Mg) MG Oral Tablet (Mag-Ox) take 1 tablet by mouth IN THE MORNING AND BEFORE BEDTIME 60 Tablet 5 06/14/2022 Active Lactulose 10 GM/15ML Oral Solution (Constulose)Indicatio ns:Hyperammonemia (HCC) Take 30 mL by mouth in the morning and 30 mL at noon and 30 mL in the evening and 30 mL before bedtime. 946 mL 5 07/19/2022 Active diazePAM 5 MG Oral Tablet (Valium) One tab 1 hour prior to liver MRI (scheduled for October 2022) 1 Tablet 0 07/19/2022 Active Atorvastatin Calcium 20 MG Oral Tablet (Lipitor)Indications: Dyslipidemia take 1 tablet by mouth once daily [...] Sodium 40 MG Oral Tablet Delayed Release (Protonix)Indications :Gastroesophageal reflux disease take 1 tablet by mouth [...] 12/08/2022 Active oxyCODONE HCl 5 MG Oral Tablet (Oxy IR)Indications:Avascu lar necrosis of bone of hip, left (HCC),Secondary osteoarthritis of hip Take 1 Tablet by mouth every 12 hours as needed for Pain, Severe for up to 10 days. 20 Tablet 0 12/27/2022 01/06/2023 Active Hospital, Clinic, or Other Facility Administered Medication Ordered Dose Route Frequency Start Date End Date Status albuterol sulfate (PROVENTIL) (2.5 MG/3ML) 0.083% inhalation solution 2.5 mgIndications:SOB (shortness of breath) 2.5 mg NEBULIZER Q4H PRN 05/10/2018 Act guzman documented as of this encounter (statuses as of 12/27/2022) Active Problems Problem Noted Date AAA (abdominal aortic aneurysm) 10/26/19 23 Overview: 3.0 cm AAA noted on MRI [...] 08/07/2019 Undiagnosed cardiac murmurs 11/29/200102/03 Overview: Not [place] on 11/29/01 documented as of this encounter (statuses as of 12/27/2022) Immunizations Name Administration Dates Next Due HEP A - Hepatitis A (Adult > 18 yrs) 06/06/2020 Pneumococcal Conjugate Vacci ne, 20-valent ([id number]) 06/24/2022 Seasonal Influenza Virus Vac cine, Unspecified [...] Progress Notes * Martin Phelan PA-C - 12/27/2022 12:55 PM EDT Updated referral placed for patient placement at a tertiary center due to multiple comorbidities regarding joint replacement. Also updated prescription placed for pain medication per patient previousrequest. Allergy list and full PDMP record reviewed before prescription placement. documented in this encounter Plan of Treatment Upcoming Encounters Date Type Specialty Care Team Description 12/27/2022 Office Visit Family Medicine Drea Raya MD [address] [place], [place] [phone] 12/29/2022 Office Visit Gastroenterology Keyanna Gordon CRNP [address] [place] [address] 12/29/2022 Office Visit Orthopedics Martin Phelan PA-C [address] [place] [address] Scheduled Procedures Name Priority Associated Diagnoses Date/Ti me COLONOSCOPY FLEXIBLE PROXIMAL DIAGNOSTIC Recall History of colon polyps Scheduled Referrals Name Type Priority Associated Diagnoses Orde r Schedule ORTHOPAEDICS REFERRAL OP Referral Within 3 days (urgent) Avascular necrosis of bone of hip, left (HCC) Secondary osteoarthritis of hip Ordered: 12/27/2022 Health Maintenance Due Date Last Done Comments Hepatitis B (1 of 3 - 3-dose series) 1965 COVID-19 Vaccine (#1) 01/12/1965 Albumin/Creatinine Ratio 1982 Zoster Vaccines (1 of 2) 2014 Depression Screening 03/22/2023 03/22/2022 GFR 10/18/2023 10/17/2022, 0410/2022, 06/24/2022, Additional history exists COLONOSCOPY-EVERY 3 YRS [...] of bone of hip, left (HCC)- Primary Secondary osteoarthritis of hip Secondary localized osteoarthrosis, pelvic region and thigh documented in this encounter Additional Health Concerns Infection Onset Date Last Indicated Resolved Time Hepatitis A 08/23/2021 08/23/2021 documented as of this encounter Care Teams Neurology Epilepsy Physician Relationship Specialty Start Date End Date Toby Paz MD [address] [place] [address] PCP - General Family Medicine 11/25/14 documented as of this encounter
--- OUTSIDE RECORDS SUMMARY | 2023-05-14 06:42 | External Medical Summary | Summary of Care ---
Author Name Unknown Organization [facility] Address [address] [facility] [place] [address] Phone [phone] Care Team Providers Care Property Inspector Name Role Phone Toby Paz MD Primary Care Provider +1- [phone] Reason for Visit * Reason Onset Date Comments Surgery Complications 12/22/2022 Surgery 12/22/2022 Encounter Details Date Type Department Care Team Description 12/22/2022 Telephone Orthopaedics [facility] [address] [place] [address] Jayson Short DO [address] [place] [address] Surgery Complications; Surgery Allergies Active Allergy Reactions Severity Noted Date Comments Other Allergy (See Comments) Anaphylaxis High 2018 Bee stings- swelling documented as of this encounter (statuses as of 12/23/2022) Medications Medication Sig Dispensed Refills Start Date [...] as of this encounter (statuses as of 12/23/2022) Active Problems Problem Noted Date AAA (abdominal [...] ischemic heart disease 11/29/2001 Overview: father had [place]'s in 40's Gastroesophageal reflux disease with eso phagitis documented as of this encounter (statuses as of 12/23/2022) Resolved Problems Problem Noted Date Resolved Date Facial swelling 06/09/2017 08/07/2019 Urticaria 06/09/2017 08/07/2019 Intestinal obstruction 05/09/2012 7 CLASSICAL MIGRAINE WITHOU MENTION OF INTRACTABLE MIGRAINE 11/29/2001 08/07/2019 Undiagnosed cardiac murmurs 11/29/200102/03 Overview: Not [place] on 11/29/01 documented as of this encounter (statuses as of 12/23/2022) Immunizations Name Administration Dates Next Due HEP A - Hepatitis A (Adult > 18 yrs) 06/06/2020 Pneumococcal Conjugate Vacci ne, 20-valent ([id number]) 06/24/2022 Seasonal Influenza Virus Vac cine, Unspecified [...] * Telephone Encounter - ABEBA Velasquez - 12/23/2022 2:05 PM EDT Patient called in stating he received a call from us to call back, Advised him of the message belowand that you attempted to reach out to patient regarding this. Patient asking for further recommendations about THR * Telephone Encounter - DAISHA Sena - 12/22/2022 1:38 PM EDT Pt called stating THR was denied by Dr. Jain. Pt said Dr. Jain knew nothing about the scheduling of the procedure and didn't know why pt was scheduled with him. Pt said he was told he had a kidney infection but stated he had a test performed confirming he did not have an infection; stated he has no infections and needs this procedure as soon as possible. Pt referred to Orthopaedic surgery by Dr. Short for - Patient for hip replacement - Recommending higher level of care due to medical comorbidities M87.052 (ICD-10-CM) - Avascular necrosis of bone of left hip (HCC) M16.7 (ICD-10-CM) - Other secondary osteoarthritis of left hip Please see Dr. Jain's OV encounter from 12/08/2022. Please contact patient to advise and clarify as I cannot provide any medical information. documented in this encounter Plan of Treatment Upcoming Encounters Date Type Specialty Care Team Description 12/27/2022 Office Visit [facility] [address] [facility] [address] 12/29/2022 Office Visit [facility] [address] [facility] [address] Scheduled Procedures Name Priority Associated Diagnoses Date/Ti me COLONOSCOPY FLEXIBLE PROXIMAL DIAGNOSTIC Recall History of colon polyps Health Maintenance Due Date Last Done Comments Hepatitis B (1 of 3 - 3-dose series) 1965 COVID-19 Vaccine (#1) 01/12/1965 Albumin/Creatinine Ratio 1982 Zoster Vaccines (1 of 2) 2014 Depression Screening 03/22/2023 03/22/2022 GFR 10/18/2023 10/17/2022, 042 10/2022, 06/24/2022, Additional history exists COLONOSCOPY-EVERY 3 YRS [...] documented as of this encounter Care Teams Property Inspector Relationship Specialty Start Date End Date Toby Paz MD [address] [place], [place] [phone] PCP - General Family Medicine 11/25/14 documented as of this encounter
--- OUTSIDE RECORDS SUMMARY | 2023-05-14 06:42 | External Medical Summary | Summary of Care ---
Author Name Unknown Organization [facility] Address [address] [place] [address] Phone [phone] Care Team Providers Care Sheet Sorter Name Role Phone Toby Paz MD Primary Care Provider +1- [phone] Reason for Visit * Reason Comments Outpatient Testing Encounter Details Date Type Department Care Team Description 12/29/2022 Laboratory [facility], [facility] [address] [facility] [place] [address] [facility] [address] Alcoholic cirrhosis of liver with ascites (HCC) Allergies Active Allergy Reactions Severity Noted Date Comments Other Allergy (See Comments) Anaphylaxis High 2018 Bee stings- swelling documented as of this encounter (statuses as of 12/29/2022) Medications Medication Sig Dispensed Refills Start Date [...] left hip 150 g 6 12/08/2022 Active diazePAM 5 MG Oral Tablet (Valium) Take 1 Tablet by mouth at bedtime as needed for Sleep for up to 5 days. 5 Tablet 0 12/29/2022 01/03/2023 Active Hospital, Clinic, or Other Facility Administered Medication Ordered Dose Route Frequency Start Date End Date Status albuterol sulfate (PROVENTIL) (2.5 MG/3ML) 0.083% inhalation solution 2.5 mgIndications:SOB (shortness of breath) 2.5 mg NEBULIZER Q4H PRN 05/10/2018 Act guzman documented as of this encounter (statuses as of 12/29/2022) Active Problems Problem Noted Date AAA (abdominal aortic aneurysm) 07/25/20 23 Overview: 3.0 cm AAA noted on [...] ischemic heart disease 11/29/2001 Overview: father had [place]'s in 40's Gastroesophageal reflux disease with eso phagitis documented as of this encounter (statuses as of 12/29/2022) Resolved Problems Problem Noted Date Resolved Date Facial swelling 06/09/2017 08/07/2019 Urticaria 06/09/2017 08/07/2019 Intestinal obstruction 05/09/2012 7 CLASSICAL MIGRAINE WITHOU MENTION OF INTRACTABLE MIGRAINE 11/29/2001 08/07/2019 Undiagnosed cardiac murmurs 11/29/200102/03 Overview: Not [place] on 11/29/01 documented as of this encounter (statuses as of 12/29/2022) Immunizations Name Administration Dates Next Due HEP A - Hepatitis A (Adult > 18 yrs) 06/06/2020 Pneumococcal Conjugate Vacci ne, 20-valent ([id number]) 06/24/2022 Seasonal Influenza Virus Vac cine, Unspecified [...] Encounters Date Type Specialty Care Team Description 04/11/2023 Office Visit Gastroenterology Keyanna Gordon CRNP [address] [place] [address] 05/11/2023 Office Visit Gastroenterology Marilou Andrews DO [address] [place] [address] Pending Results Name Type Priority Associated Diagnoses Date /Time CBC WITH WBC DIFFERENTIAL Lab Routine Alcoholic cirrhosis of liver with ascites (HCC) 12/29/2022 9:28 AM EDT PT INR Lab Routine Alcoholic cirrhosis of liver with ascites (HCC) 12/29/2022 9:28 AM EDT CBC Lab Routine Alcoholic cirrhosis of liver with ascites (HCC) 12/29/2022 9:28 AM EDT DIFFERENTIAL, AUTOMATED Lab Routine Alcoholic cirrhosis of liver with ascites (HCC) 12/29/2022 9:28 AM EDT Scheduled Procedures Name Priority Associated Diagnoses Date/Ti [...] Diagnosis Alcoholic cirrhosis of liver with ascites (HCC) Alcoholic cirrhosis of liver documented in this encounter Additional Health Concerns Infection Onset Date Last Indicated Resolved Time Hepatitis A 08/23/2021 08/23/2021 documented as of this encounter Care Teams Sheet Sorter Relationship Specialty Start Date End Date Toby Paz MD [address] [place], [place] [phone] PCP - General Family Medicine 11/25/14 documented as of this encounter
--- OUTSIDE RECORDS SUMMARY | 2023-05-14 06:42 | External Medical Summary | Summary of Care ---
Author Name Unknown Organization [facility] Address [address] [facility] [address] Phone [phone] Care Team Providers Care Apartment Hotel Manager Name Role Phone Toby Paz MD Primary Care Provider +1- [phone] Reason for Visit * Reason Onset Date Comments Advice 12/23/2022 Encounter Details Date Type Department Care Team Description 12/23/[address] [facility] [address] [place] [address] Jayson Short, [address] [place] [address] Advice Allergies Active Allergy Reactions Severity Noted [...] ischemic heart disease 11/29/2001 Overview: father had [place]'s in 40's Gastroesophageal reflux disease with eso phagitis documented as of this encounter (statuses as of 12/27/2022) Resolved Problems Problem Noted Date Resolved Date Facial swelling 06/09/2017 08/07/2019 Urticaria 06/09/2017 08/07/2019 Intestinal obstruction 05/09/2012 7 CLASSICAL MIGRAINE WITHOU MENTION OF INTRACTABLE MIGRAINE 11/29/2001 08/07/2019 Undiagnosed cardiac murmurs 11/29/200102/03 Overview: Not [place] on 11/29/01 documented as of this encounter (statuses as of 12/27/2022) Immunizations Name Administration Dates Next Due HEP A - Hepatitis A (Adult > 18 yrs) 06/06/2020 Pneumococcal Conjugate Vacci ne, 20-valent ([id number]) 06/24/2022 Seasonal Influenza Virus Vac cine, Unspecified [...] encounter Miscellaneous Notes * Telephone Encounter - DAISHA Sena - 12/27/2022 9:09 AM EDT PLEASE call Carmen SUAREZ [phone]. Pt is in extreme, uncontrolled pain. They still are unaware that Dr. Short is not comfortable performing the surgery, and we cannot discuss that with them.They need to know this and his recommendation to tertiary center for undergoing total hip replacement and possible need to seek evaluation at other facility such as [facility]. * Telephone Encounter - DAISHA [...] not until February, best call back numberis [phone], for Carmen, significant other. Thank you, Micaela [place] * Telephone Encounter - Jayson Short DO - 12/23/2022 3:58 PM EDT Attempted to contact patient today x2. Given the patient's medical comorbidities and higher risk for surgical procedure, recommend patient be referred to tertiary center for undergoing total hip replacement. Referral order previously placed. Patient has been seen in [place]. May need to seek evaluation at other facility such as [facility]. documented in this encounter Plan of Treatment Upcoming Encounters Date Type Specialty Care Team Description 12/27/2022 Office Visit Family Medicine Drea Raya MD [address] [facility] [place] [id number] 12/29/2022 Office Visit Gastroenterology Keyanna Gordon CRNP [address] [place] [address] Scheduled Procedures Name Priority Associated Diagnoses Date/Ti [...] documented as of this encounter Care Teams Apartment Hotel Manager Relationship Specialty Start Date End Date Toby Paz MD [address] [place] [address] PCP - General Family Medicine 11/25/14 documented as of this encounter
--- OUTSIDE RECORDS SUMMARY | 2023-05-14 06:42 | External Medical Summary | Summary of Care ---
Author Name Unknown Organization [facility] Address [address] [facility] [address] Phone [phone] Care Team Providers Care Order Fulfillment Specialist Name Role Phone Toby Paz MD Primary Care Provider +1- [phone] Reason for Visit * Reason Onset Date Comments Advice 12/23/2022 Encounter Details Date Type Department Care Team Description 12/23/2022 Telephone Orthopaedics [facility] [address] [place] [address] Jayson Short, [address] [place] [address] Advice Allergies Active Allergy Reactions Severity Noted Date Comments Other Allergy (See Comments) Anaphylaxis High 2018 Bee stings- swelling documented as of this encounter (statuses as of 12/26/2022) Medications Medication Sig Dispensed Refills Start Date [...] as of this encounter (statuses as of 12/26/2022) Active Problems Problem Noted Date AAA (abdominal [...] ischemic heart disease 11/29/2001 Overview: father had [place]'s in 40's Gastroesophageal reflux disease with eso phagitis documented as of this encounter (statuses as of 12/26/2022) Resolved Problems Problem Noted Date Resolved Date Facial swelling 06/09/2017 08/07/2019 Urticaria 06/09/2017 08/07/2019 Intestinal obstruction 05/09/2012 7 CLASSICAL MIGRAINE WITHOU MENTION OF INTRACTABLE MIGRAINE 11/29/2001 08/07/2019 Undiagnosed cardiac murmurs 11/29/200102/03 Overview: Not [place] on 11/29/01 documented as of this encounter (statuses as of 12/26/2022) Immunizations Name Administration Dates Next Due HEP A - Hepatitis A (Adult > 18 yrs) 06/06/2020 Pneumococcal Conjugate Vacci ne, 20-valent ([id number]) 06/24/2022 Seasonal Influenza Virus Vac cine, Unspecified [...] Miscellaneous Notes * Telephone Encounter - DAISHA Black - 12/26/2022 11:14 AM EDT Pt significant other, Carmen, calling to see if pt would be able to have an appt with Dr. Short since it seems they've been missing each other by telephone the past few times either has attempted to contact the other regarding THR. First available was not until February, best call back numberis [phone], for Carmen, significant other. Thank you, Micaela [place] * Telephone Encounter - Jayson Short DO - 12/23/2022 3:58 PM EDT Attempted to contact patient today x2. Given the patient's medical comorbidities and higher risk for surgical procedure, recommend patient be referred to tertiary center for undergoing total hip replacement. Referral order previously placed. Patient has been seen in [place]. May need to seek evaluation at other facility such as . documented in this encounter Plan of Treatment Upcoming Encounters Date Type Specialty Care Team Description 12/27/2022 Office Visit Family Medicine Drea Raya MD [address] [place] [address] 12/29/2022 Office Visit Gastroenterology Keyanna Gordon CRNP [address] [place] [address] Scheduled Procedures Name Priority Associated Diagnoses Date/Ti me COLONOSCOPY FLEXIBLE PROXIMAL DIAGNOSTIC Recall History of colon polyps Health Maintenance Due Date Last Done Comments Hepatitis B (1 of 3 - 3-dose series) 1965 COVID-19 Vaccine (#1) 01/12/1965 Albumin/Creatinine Ratio 1982 Zoster Vaccines (1 of 2) 2014 Depression Screening 03/22/2023 03/22/2022 GFR 10/18/2023 10/17/2022, 04/10/2022, 06/24/2022, Additional history exists COLONOSCOPY-EVERY 3 YRS [...] documented as of this encounter Care Teams Order Fulfillment Specialist Relationship Specialty Start Date End Date Toby Paz MD [address] [place], [place] [phone] PCP - General Family Medicine 11/25/14 documented as of this encounter
--- OUTSIDE RECORDS SUMMARY | 2023-05-14 06:42 | External Medical Summary ---
Author Name Unknown Address Unknown Organization K[facility] [address] [place] [address] Laboratory Report Ordering Provider Test Date Status LIZA LAROSE 12/29/2022 09:28:37 Final Observation Date Value Abnormality Reference (Units ) Status SYNC LEUKOCYTES IN BLOOD BY AUTOMATED COUNT 12/29/2022 09:28:37 6.65 4.00-10.80 (K/uL) Final Segs 12/29/2022 09:28:37 48.6 40.0-75.0 (%) Final Lymphs % 12/29/2022 09:28:37 23.2 18.0-42.0 (%) Final Monos 12/29/2022 09:28:37 16.5 Above high normal 1.0-11.0 (%) Final Eosinophils 12/29/2022 09:28:37 11.4 Above high normal 0.0-6.0 (%) Final Basos 12/29/2022 09:28:37 0.3 0.0-2.0 (%) Final Absolute Segs 12/29/2022 09:28:37 3.23 1.80-7.70 (K/uL) Final Lymphs, absolute 12/29/2022 09:28:37 1.54 1.00-4.80 (K/ul) Final Monos, Abs 12/29/2022 09:28:37 1.10 0.00-1.10 (K/uL) Final Eos, Abs 12/29/2022 09:28:37 0.76 Above high normal 0.00-0.70 (K/uL) Final Basos, Abs 12/29/2022 09:28:37 0.02 0.00-0.20 (K/uL) Final Performing Location [facility] [address] [place] [id number]
--- OUTSIDE RECORDS SUMMARY | 2023-05-14 06:42 | External Medical Summary | Summary of Care ---
Author Name Unknown Organization [facility] Address [address] [facility] [place] [address] Phone [phone] Care Team Providers Care Order Picker/Assembler Name Role Phone Toby Paz MD Primary Care Provider +1- [phone] Reason for Visit * Reason Onset Date Comments Surgery Complications 12/22/2022 Surgery 12/22/2022 Encounter Details Date Type Department Care Team Description 12/22/2022 Telephone Orthopaedics [facility] [address] [place] [address] Jayson Short DO [address] [place] [address] Surgery Complications; Surgery Allergies Active Allergy Reactions Severity Noted Date Comments Other Allergy (See Comments) Anaphylaxis High 2018 Bee stings- swelling documented as of this encounter (statuses as of 12/22/2022) Medications Medication Sig Dispensed Refills Start Date [...] as of this encounter (statuses as of 12/22/2022) Active Problems Problem Noted Date AAA (abdominal [...] ischemic heart disease 11/29/2001 Overview: father had IN's in 40's Gastroesophageal reflux disease with eso phagitis documented as of this encounter (statuses as of 12/22/2022) Resolved Problems Problem Noted Date Resolved Date Facial swelling 06/09/2017 08/07/2019 Urticaria 06/09/2017 08/07/2019 Intestinal obstruction 05/09/2012 7 CLASSICAL MIGRAINE WITHOU MENTION OF INTRACTABLE MIGRAINE 11/29/2001 08/07/2019 Undiagnosed cardiac murmurs 11/29/200102/03 Overview: Not [place] on 11/29/01 documented as of this encounter (statuses as of 12/22/2022) Immunizations Name Administration Dates Next Due HEP A - Hepatitis A (Adult > 18 yrs) 06/06/2020 Pneumococcal Conjugate Vacci ne, 20-valent ([id number]) 06/24/2022 Seasonal Influenza Virus Vac cine, Unspecified [...] Family Medicine Drea Raya MD [address] [place] [address] 12/29/2022 Office Visit Gastroenterology Keyanna Gordon CRNP [address] [facility] [place] [address] Scheduled Procedures Name Priority Associated Diagnoses Date/Ti [...] as of this encounter Care Teams Order Picker/Assembler Relationship Specialty Start Date End Date Toby Paz MD [address] [place] [address] PCP - General Family Medicine 11/25/14 documented as of this encounter
--- OUTSIDE RECORDS SUMMARY | 2023-05-14 06:42 | External Medical Summary | Summary of Care ---
Author Name Unknown Organization [facility] Address [address] [place] [address] Phone [phone] Care Team Providers Care Nursing Officer Name Role Phone Toby Paz MD Primary Care Provider +1- [phone] Reason for Referral * Evaluate & Treat - Unlimited Visits (Within 30 days (routine)) - Authorized Specialty Diagnoses / Procedures Referred By Pj hernandez Referred To Contact Gastroenterology Diagnoses Alcoholic cirrhosis of liver with ascites (HCC) Keyanna Gordon CRNP [address] [place] [address] Referral ID Status Reason Start Date Expiration Date Visits Requested Visits Authorized [id number] Authorized Specialty Services Required 12/29/2022 999 999 Question Answer Referral Priority Within 30 days (routine) For what condition is the patient being referred? Liver conditions Comments ETOH w cirrhosis, abstaining. Ascites, EV. Reason for Visit * Reason Comments Follow Up Alcoholic cirrhosis Encounter Details Date Type Department Care Team Description 12/29/2022 Office Visit Gastroenterology, [facility] [address] [place] [address] Keyanna Gordon CRNP [address] [place] [address] Alcoholic cirrhosis of liver with ascites (HCC)*; Esophageal varices without bleeding, unspecified esophageal varices type (HCC) Allergies Active Allergy Reactions Severity Noted [...] to the Emergency room. 2 Each 1 1 Active Spironolactone 25 MG Oral Tablet (Aldactone) Take 1 Tablet by mouth in the morning. 360 Tablet 0 3 Active Gabapentin 100 MG Oral Capsule (Neurontin)Indicat ions:Complaint of paresthesia take 1 capsule by mouth every morning and AT NOON and BEFORE BEDTIME 90 Capsule 5 3 Active Magnesium Oxide 400 (240 Mg) MG Oral Tablet (Mag-Ox) take 1 tablet by mouth IN THE MORNING AND BEFORE BEDTIME 60 Tablet 5 3 Active Lactulose 10 GM/15ML Oral Solution (Constulose)Indica tions:Hyperammonem ia (HCC) Take 30 mL by mouth in the morning and 30 mL at noon and 30 mL in the evening and 30 mL before bedtime. 946 mL 5 3 Active Atorvastatin Calcium 20 MG Oral Tablet (Lipitor)Indicatio ns:Dyslipidemia take 1 tablet by mouth once daily 90 Tablet 1 3 Active oxyCODONE HCl 5 MG Oral Tablet (Oxy IR)Indications:Hip pain, left,Avascular necrosis of bone of hip, unspecified laterality (HCC) Take 1 Tablet by mouth every 12 hours as needed for Pain, Severe. 45 Tablet 0 3 Active FLUoxetine HCl 10 MG Oral Capsule (PROzac) take 1 capsule by mouth every morning 30 Capsule 3 3 Active Xifaxan 550 MG Oral Tablet (rifAXIMin) take 1 tablet by mouth IN THE MORNING then take 1 tablet by mouth BEFORE BEDTIME 60 Tablet 1 3 Active Furosemide 40 MG Oral Tablet (Lasix) take 1 tablet by mouth every morning 30 Tablet 2 3 Active Pantoprazole Sodium 40 MG Oral Tablet Delayed Release (Protonix)Indicati ons:Gastroesophage al reflux disease take 1 tablet by mouth twice a day 180 Tablet 3 3 Active Diclofenac Sodium 1 % External Gel (Voltaren) Apply topically to affected area 2 times a day. Apply to area lateral to left hip 150 g 6 3 Active diazePAM 5 MG Oral Tablet (Valium) Take 1 Tablet by mouth at bedtime as needed for Sleep for up to 5 days. 5 Tablet 0 3 01/04/20 23 Active diazePAM 5 MG Oral Tablet (Valium) One tab 1 hour prior to liver MRI (scheduled for October 2022) 1 Tablet 0 3 12/30/19 23 Discontinued LORazepam 1 MG Oral Tablet (Ativan) 2 tabs by mouth, one hour prior to MRI. 2 Tablet 0 3 12/30/19 23 Discontinued oxyCODONE HCl 5 MG Oral Tablet (Oxy IR)Indications:Hip pain, left Take 1 Tablet by mouth every 12 hours as needed for Pain, Severe. 15 Tablet 0 3 12/30/19 23 Discontinued(Med ication List Clean Up) oxyCODONE HCl 5 MG Oral Tablet (Oxy IR)Indications:Fang scular necrosis of bone of hip, left (HCC),Secondary osteoarthritis of hip Take 1 Tablet by mouth every 12 hours as needed for Pain, Severe for up to 10 days. 20 Tablet 0 3 12/30/19 Discontinued(Med ication List Clean Up) Hospital, Clinic, or Other Facility Administered Medication [...] ischemic heart disease 11/29/2001 Overview: father had OH's in 40's Gastroesophageal reflux disease with eso phagitis documented as of this encounter (statuses as of 12/29/2022) Resolved Problems Problem Noted Date Resolved Date Facial swelling 06/09/2017 08/07/2019 Urticaria 06/09/2017 08/07/2019 Intestinal obstruction 05/09/2012 7 CLASSICAL MIGRAINE WITHOU MENTION OF INTRACTABLE MIGRAINE 11/29/2001 08/07/2019 Undiagnosed cardiac murmurs 11/29/200102/03 Overview: Not [place] on 11/29/01 documented as of this encounter (statuses as of 12/29/2022) Immunizations Name Administration Dates Next Due HEP A - Hepatitis A (Adult > 18 yrs) 06/06/2020 Pneumococcal Conjugate Vacci ne, 20-valent ([id number]) 06/24/2022 Seasonal Influenza Virus Vac cine, Unspecified [...] Sign Reading Time Taken Comments Blood Pressure 118/58 12/29/2022 8:42 AM EDT Pulse 69 12/29/2022 8:42 AM EDT Temperature 36.6 C (97.8 F) 12/29/2022 8:42 AM ED T Respiratory Rate - - Oxygen Saturation 98% 12/29/2022 8:42 AM EDT Inhaled Oxygen Concentration - - Weight 84.6 kg (186 lb 9.6 oz) 12/29/2022 8:42 A M EDT Height - - Body Mass Index 28.37 12/08/2022 11:20 AM EDT documented in this encounter Functional Status Functional Status Response Date of Assess ment Does this person have seriou s difficulty walking or climbing stairs? Yes 08/23/2021 documented as of this encounter Progress Notes * YOGESH Orta - 12/29/2022 8:56 AM EDT CC: ETOH cirrhosis recheck HPI: Recall that Mr. Mauro Liu is a 57 yr old male pt of Dr. Brandi guerrier a hx of migraines, bowel obstruction, HTN, GERD, DDD and ETOH cirrhosis complicated by EV, ascites, Hep Encep. Currently on diuretics for ascites, BB and PPI for EV, watching small liver lesions cysts on most recent MRI. Main problem continues to be arthritic hip pain. Was scheduled for surgery but cancelled at the last minute (told UTI, though had no symptoms and cx eventually negative) then referred to other ortho in [place] who did not feel it was safe to do a hip replacement due to cirrhosis w ascites, decreased platelets/el INR. Pt/ very discouraged regarding hip pain and really want surgery. Being refer red to [facility] ortho. He begs for "something to help me sleep - awake w throbbing hip pain all night long." In a wheelchair, tells me he does not walk due to pain, only transfers from wheelchair to toilet etc. No liver related symptoms: No yellow eyes or skin, no confusion, no excessive bleeding/bruising, noblack/bloody BMs, no increased ascites. Taking meds as ordered (reviewed in detail w pt). MELD 3.0: 13 at 10/17/2022 2:53 PM Calculated from: Serum Creatinine: 1.0 mg/dL at 10/17/2022 2:53 PM Serum Sodium: 139 mmol/L (Using max of 137 mmol/L) at 10/17/2022 2:53 PM Total Bilirubin: 2.0 mg/dL at 10/17/2022 2:53 PM Serum Albumin: 3.2 g/dL at 10/17/2022 2:53 PM INR(ratio): 1.5 at 10/17/2022 2:53 PM Age at listing (hypothetical): 57 years Sex: Male at 10/17/2022 2:53 PM Complications: Hepatic Encephalopathy: Was hospitalized at [facility] on two occasions previously And [facility] 2021 for hep enceph. Maintained on Rifaximin 550mg BID and Lactulose 10gm/30ml taking 30ml QID regularly. EV EGD July 2022: Grade I EV, PHG Ascites: furosemide 20 mg 2 pills daily (per pt's ), spironolactone 25 mg once daily. (verifiedby his ). US at [facility] in May 2022 w very small [...] AMA, ASMA and tTg (-) EXAM: BP 118/58 | Pulse 69 | Temp 36.6 C (97.8 F) | Wt 84.6 kg (186 lb 9.6 oz) | SpO2 98% | BMI 28.37kg/m | BSA 2.01 m GENERAL: 57 year old male well developed and well nourished, appears tired but is AAO x 3, sitting in a wheelchair. SKIN: no rashes, ulcers, or spider angiomata HEENT: normocephalic, sclera clear, pharynx normal NECK: supple, no lymphadenopathy, no masses or thyroid enlargement LUNGS: clear to auscultation anterior and posterior HEART: regular rate & rhythm, no murmurs and no gallops ABDOMEN: + minimal ascites, normo-active bowel sounds, soft, non-tender, non- distended no masses, no hepatosplenomegaly, no rebound or guarding, no bruits EXTREMITIES: minimal bilat lower leg edema, no palmar erythema, no edema, no skin discoloration, noclubbing, no cyanosis NEURO: no lateralizing findings, Sensory/Motor grossly normal IMPRESSION/RECOMMENDATIONS: 57 year old male with Alcoholic cirrhosis of liver with ascites (HCC) (Primary) - HEPATOLOGY REFERRAL OP - CBC WITH WBC DIFFERENTIAL; Future; Expected date: 12/29/2022 - COMPREHENSIVE METABOLIC PANEL - PT INR; Future; Expected date: 12/29/2022 Esophageal varices without bleeding, unspecified esophageal varices type (HCC) Poor sleep due to ortho pain. Explained that he can not be on a sleep medicine, narcotic or benzodiazepine frequently as will cause confusion, but he is desperate for some sleep. I did provide a script for 5 Valium tabs, one at bedtime to use occasionally. I do not intend to provide refills (or rare refills only). He should nottake this frequently. - diazePAM 5 MG Oral Tablet (Valium); Take 1 Tablet by mouth at bedtime as needed for Sleep for up to 5 days. Due for next EGD July 2023 Avoid salt May take 1 gram of tylenol/day for ortho pain, no narcotics (or very rare) Continue to pursue ortho surgery through [facility]. Call if yellow eyes, yellow skin, confusion. Meds: For ascites: furosemide 40mg QAM, spironolactone 25 QAM For EV: pantoprazole 40mg daily, (No beta tonia as varices are small, and no hx of EV bleed) For hx of hepatic encephalopathy: Rifaximin 550mg BID, Lactulose - titrate to > 3 loose BMs/day.Take additional doses if confused. Will refer to hepatology - either changing to management by Dr. Andrews, or review of all meds etc and return to my care. Recheck w m scheduled in 4 m but will cancel if Dr. Andrews indicates that she will manage the pt's cirrhosis. I spent a total of 30 minutes on the date of service in review of patient's record, and previously obtained information in person and appropriate medical visit, discussion and education of plan, withpatient and/or caregiver, placing orders for tests/referral/procedures as medically necessary and documentation of pertinent clinical information in patient's medical records for their visit today. Thank you for the opportunity to be involved in the care of this patient. YOGESH Orta documented in this encounter Nursing Notes * Yissel Dumont LPN - 12/29/2022 8:45 AM EDT Patient identified by name and date of . Chief Complaint Patient presents with Follow Up Alcoholic cirrhosis Symptoms: nausea, weight gain, and confusion Bowel Movement Frequency: daily- up to 3 times a day Bowel Movement Consistency: loose Straining: no Rectal Pain: no Blood in Stool: No Was recently at [facility] for twitching and shaking episodes, pt has not slept in days related to his hip pain. Per pt his ammonia level is approx 100 documented in this encounter Plan of Treatment Upcoming Encounters Date Type Specialty Care Team Description 04/11/2023 Office Visit Gastroenterology Keyanna Gordon CRNP [address] [place] [address] 05/11/2023 Office Visit Gastroenterology Marilou Andrews DO [address] [place] [address] Pending Results Name Type Priority Associated Diagnoses Date /Time COMPREHENSIVE METABOLIC PANEL Lab Routine Alcoholic cirrhosis of liver with ascites (HCC) 12/29/2022 9:28 AM EDT PT INR Lab Routine Alcoholic cirrhosis of liver with ascites (HCC) 12/29/2022 9:28 AM EDT Scheduled Orders Name Type Priority Associated Diagnoses Orde r Schedule PT INR Lab Routine Alcoholic cirrhosis of liver with ascites (HCC) Expected: 12/29/2022, Expires: 12/30/2023 Scheduled Procedures Name Priority Associated Diagnoses Date/Ti [...] ascites (HCC)- Primary Alcoholic cirrhosis of liver Esophageal varices without bleeding, unspecified esophageal varices type (HCC) documented in this encounter Additional Health Concerns Infection Onset Date Last Indicated Resolved Time Hepatitis A 08/23/2021 08/23/2021 documented as of this encounter Care Teams Nursing Officer Relationship Specialty Start Date End Date Toby Paz MD [address] [place] [address] PCP - General Family Medicine 11/25/14 documented as of this encounter
--- OUTSIDE RECORDS SUMMARY | 2023-05-14 06:42 | External Medical Summary ---
Author Name Unknown Address Unknown Organization [facility] [place] [facility] [address] [place] [address] Laboratory Report Ordering Provider Test Date Status LIZA LAROSE 12/29/2022 09:28:37 Final Observation Date Value Abnormality Reference (Units ) Status BUN 12/29/2022 09:28:37 17 6-20 (mg/dL) Final Creatinine 12/29/2022 09:28:37 0.8 0.6-1.2 (mg/dL) Final Glomerular filtration rate/1.73 sq M.predicted [Volume Rate/Area] in Serum, Plasma or Blood by Creatinine-based formula (CKD-EPI) 12/29/2022 09:28:37 >90 >=60 (mL/min) Final eGFR is calculated based on the CKD-EPI 2020 equation SODIUM 12/29/2022 09:28:37 138 135-146 (m mol/L) Final Potassium 12/29/2022 09:28:37 3.9 3.5-5.1 (m mol/L) Final Cl 12/29/2022 09:28:37 112 Above high normal 98 -107 (mmol/L) Final CO2 12/29/2022 09:28:37 18 Below low normal 22- 32 (mmol/L) Final Anion gap 12/29/2022 09:28:37 8 7-15 (mmol /L) Final Glucose 12/29/2022 09:28:37 96 70-120 (mg /dL) Final Albumin 12/29/2022 09:28:37 3.5 Below low normal 3.8 -5.0 (g/dL) Final AST (Aspartate aminotransferase) 12/29/2022 09:28:37 54 Above high normal 10-50 (U/L) Final Alk Phos 12/29/2022 09:28:37 163 Above high normal 35 -130 (U/L) Final Bilirubin, Total 12/29/2022 09:28:37 1.8 Above high no rmal <=1.2 (mg/dL) Final Calcium 12/29/2022 09:28:37 8.5 8.4-10.2 ( mg/dL) Final Protein 12/29/2022 09:28:37 6.1 6.0-8.3 (g /dL) Final ALT (Alanine aminotransferase) 12/29/2022 09:28:37 34 10-50 (U/L) Ryder joyce Performing Location [facility] [address] [place] [address]
--- OUTSIDE RECORDS SUMMARY | 2023-05-14 06:42 | External Medical Summary | Summary of Care ---
Author Name Unknown Organization [facility] Address [address] [facility] [place] [address] Phone [phone] Care Team Providers Care Surfboard Maker Name Role Phone Toby Paz MD Primary Care Provider +1- [phone] Reason for Visit * Reason Onset Date Comments Surgery Complications 12/22/2022 Surgery 12/22/2022 Encounter Details Date Type Department Care Team Description 12/22/[address] [facility] [address] [place] [address] Jayson Short DO [address] [place] [address] Surgery Complications; Surgery Allergies Active Allergy Reactions [...] ischemic heart disease 11/29/2001 Overview: father had UT's in 40's Gastroesophageal reflux disease with eso phagitis documented as of this encounter (statuses as of 12/22/2022) Resolved Problems Problem Noted Date Resolved Date Facial swelling 06/09/2017 08/07/2019 Urticaria 06/09/2017 08/07/2019 Intestinal obstruction 05/09/2012 7 CLASSICAL MIGRAINE WITHOU MENTION OF INTRACTABLE MIGRAINE 11/29/2001 08/07/2019 Undiagnosed cardiac murmurs 11/29/200102/03 Overview: Not [place] on 11/29/01 documented as of this encounter (statuses as of 12/22/2022) Immunizations Name Administration Dates Next Due HEP A - Hepatitis A (Adult > 18 yrs) 06/06/2020 Pneumococcal Conjugate Vacci ne, 20-valent ([id number]) 06/24/2022 Seasonal Influenza Virus Vac cine, Unspecified [...] Family Medicine Drea Raya MD [address] [place] [address] 12/29/2022 Office Visit Gastroenterology Keyanna Gordon CRNP [address] [place] [address] Scheduled Procedures Name Priority Associated Diagnoses Date/Ti [...] documented as of this encounter Care Teams Surfboard Maker Relationship Specialty Start Date End Date Toby Paz MD [address] [place] [address] PCP - General Family Medicine 11/25/14 documented as of this encounter
--- OUTSIDE RECORDS SUMMARY | 2023-05-14 06:42 | External Medical Summary ---
Author Name Unknown Address Unknown Organization [facility] [address] [place] [address] Laboratory Report Ordering Provider Test Date Status LIZA LAROSE 12/29/2022 09:28:37 Final Warfarin Therapy
INR: 2 .0-3.0 conventional anticoagulation
INR: 2.5- 3.5 high intensity anticoagulation Observation Date Value Abnormality Reference (Units ) Status PT 12/29/2022 09:28:37 18.5 Above high normal 11 .6-15.2 (seconds) Final INR 12/29/2022 09:28:37 1.5 Above high normal 0. 8-1.2 Final Performing Location [facility] [address] [place] [address]
--- OUTSIDE RECORDS SUMMARY | 2023-05-14 06:42 | External Medical Summary | Summary of Care ---
Author Name Unknown Organization [facility] Address [address] [facility] [place] [address] Phone [phone] Care Team Providers Care Cheese Cutter Name Role Phone Toby Paz MD Primary Care Provider +1- [phone] Reason for Visit * Reason Onset Date Comments Medication Refill 01/08/2023 Encounter Details Date Type Department Care Team Description 01/08/2023 Refill [facility] [address] [place] [address] Toby Paz MD [address] [place] [address] Hip pain, left; Avascular necrosis of bone of hip, unspecified laterality (HCC) Allergies Active Allergy Reactions Severity Noted Date Comments Other Allergy (See Comments) Anaphylaxis High 2018 Bee stings- swelling documented as of this encounter (statuses as of 01/16/2023) Medications Medication Sig Dispensed Refills Start Date [...] as of this encounter (statuses as of 01/16/2023) Active Problems Problem Noted Date AAA (abdominal [...] ischemic heart disease 11/29/2001 Overview: father had ME's in 40's Gastroesophageal reflux disease with eso phagitis documented as of this encounter (statuses as of 01/16/2023) Resolved Problems Problem Noted Date Resolved Date Facial swelling 06/09/2017 08/07/2019 Urticaria 06/09/2017 08/07/2019 Intestinal obstruction 05/09/2012 7 CLASSICAL MIGRAINE WITHOU MENTION OF INTRACTABLE MIGRAINE 11/29/2001 08/07/2019 Undiagnosed cardiac murmurs 11/29/200102/03 Overview: Not [place] on 11/29/01 documented as of this encounter (statuses as of 01/16/2023) Immunizations Name Administration Dates Next Due HEP A - Hepatitis A (Adult > 18 yrs) 06/06/2020 Pneumococcal Conjugate Vacci ne, 20-valent ([id number]) 06/24/2022 SEASONAL INFLUENZA, PF, 6 M & [...] Telephone Encounter - Chelle Brewster LPN - 01/16/2023 10:17 AM EDT Has appt scheduled for 01/17/23 - can be discussed then * Telephone Encounter - MONAE Hickey - 01/11/2023 8:52 AM EDT Carmen called to check on status of rx. Caller said she is not sure who is handling rx. She said she will check and then call us back. Thanks, Monique Kamara Gsa Coordinator [facility] ([facility]) 01/11/2023,8:53 AM * Telephone Encounter - Toby Paz MD - 01/09/2023 4:36 PM EDTPending Prescriptions: Disp Refills oxyCODONE HCl 5 MG Oral Tablet (Oxy IR) 45 Tab*0 Sig: Take 1 Tablet by mouth every 12 hours as needed for Pain, Severe. * Telephone Encounter - Toby Paz MD - 01/09/2023 4:36 PM EDT I think that this has been from ortho lately. If he is not going to be seeing them, will need follow up ov with primary care. * Telephone Encounter - Gerardo Conway [facility] - 01/09/2023 3:45 PM EDTPending Prescriptions: Disp Refills oxyCODONE HCl 5 MG Oral Tablet (Oxy IR) 45 Tab*0 Sig: Take 1 Tablet by mouth every 12 hours as needed for Pain, Severe. * Telephone Encounter - Gerardo Conway [facility] - 01/09/2023 3:43 PM EDT I have reviewed the patients controlled substance dispensing history in the Prescription Drug Monitoring Program in compliance with the [facility] regulations before prescribing a controlled substance. PDMP checked on 01/09/2023. Pending Prescriptions: Disp Refills oxyCODONE HCl 5 MG Oral Tablet (Oxy IR) 45 Tab*0 Sig: Take 1 Tablet by mouth every 12 hours as needed for Pain, Severe. Last Visit: 11/01/2022 (in office), Visit date not found (telemedicine) Next Visit: Visit date not found Date medication was last filled: 12/28 Date medication is due for refill: 01/06 [facility]: [facility] #[id number] Is this request for a controlled [...] confirmatory testing. Please approve if appropriate. Thanks, Marcial Conway, PharmD Clinical Pharmacist [facility] ([facility]) (Formerly Telepharmacy) [phone] 01/09/2023 3:44 PM documented in this encounter Plan of Treatment Upcoming Encounters Date Type Specialty Care Team Description 01/17/2023 Office Visit Family Medicine Eris Sharpe MD [address] [place], [place] [phone] 01/25/2023 Office Visit Orthopedics Evan Restrepo MD [address] [place] [address] 04/11/2023 Office Visit Gastroenterology Keyanna Gordon CRNP [address] [place] [address] 05/11/2023 Office Visit Gastroenterology Marilou Andrews, [address] [place] [address] Scheduled Procedures Name Priority Associated Diagnoses Date/Ti [...] documented as of this encounter Care Teams Cheese Cutter Relationship Specialty Start Date End Date Toby Paz MD [address] [place] [address] PCP - General Family Medicine 11/25/14 documented as of this encounter
--- OUTSIDE RECORDS SUMMARY | 2023-05-14 06:42 | External Medical Summary ---
Author Name Unknown Address Unknown Organization K0G[facility] [place] [address] [place] [address] Laboratory Report Ordering Provider Test Date Status LIZA LAROSE 12/29/2022 09:28:37 Final Observation Date Value Abnormality Reference (Units ) Status WBC, Total 12/29/2022 09:28:37 6.65 4.00-10.8 0 (K/uL) Final RBC 12/29/2022 09:28:37 3.81 4.50-5.25 (M/uL) Final Hemoglobin 12/29/2022 09:28:37 12.9 Below low normal 14 .0-16.8 (g/dL) Final HCT 12/29/2022 09:28:37 37.2 Below low normal 40. 0-48.4 (%) Final MCV 12/29/2022 09:28:37 97.6 82.0-99.5 (fL) Final MCH 12/29/2022 09:28:37 33.9 27.0-34.0 (pg) Final MCHC 12/29/2022 09:28:37 34.7 32.0-36.0 (g/dL) Final RDW 12/29/2022 09:28:37 14.9 11.5-15.5 (%) Final Platelets 12/29/2022 09:28:37 39 Below low normal 140 -400 (K/uL) Final MPV 12/29/2022 09:28:37 12.6 6.6-11.1 ( fL) Final Performing Location [facility] [address] [place] [id number]
--- OUTSIDE RECORDS SUMMARY | 2023-05-14 06:42 | External Medical Summary | Summary of Care ---
Author Name Unknown Organization [facility] [address] [facility] [address] Phone [phone] Care Team Providers Care Heeler Name Role Phone Toby Paz MD Primary Care Provider +1- [phone] Reason for Visit * Reason Onset Date Comments Advice 12/23/2022 Encounter Details Date Type Department Care Team Description 12/23/2022 Telephone Orthopaedics [facility] [address] [place] [address] Jayson Short, [address] [place] [address] Advice Allergies Active Allergy Reactions Severity Noted [...] ischemic heart disease 11/29/2001 Overview: father had FL's in 40's Gastroesophageal reflux disease with eso phagitis documented as of this encounter (statuses as of 12/23/2022) Resolved Problems Problem Noted Date Resolved Date Facial swelling 06/09/2017 08/07/2019 Urticaria 06/09/2017 08/07/2019 Intestinal obstruction 05/09/2012 7 CLASSICAL MIGRAINE WITHOU MENTION OF INTRACTABLE MIGRAINE 11/29/2001 08/07/2019 Undiagnosed cardiac murmurs 11/29/200102/03 Overview: Not [place] on 11/29/01 documented as of this encounter (statuses as of 12/23/2022) Immunizations Name Administration Dates Next Due HEP A - Hepatitis A (Adult > 18 yrs) 06/06/2020 Pneumococcal Conjugate Vacci ne, 20-valent ([id number]) 06/24/2022 Seasonal Influenza Virus Vac cine, Unspecified [...] encounter Miscellaneous Notes * Telephone Encounter - Jayson Short DO - 12/23/2022 3:58 PM EDT Attempted to contact patient today x2. Given the patient's medical comorbidities and higher risk for surgical procedure, recommend patient be referred to tertiary center for undergoing total hip replacement. Referral order previously placed. Patient has been seen in [place]. May need to seek evaluation at other facility such as [facility]. documented in this encounter Plan of Treatment Upcoming Encounters Date Type Specialty Care Team Description 12/27/2022 Office Visit Family Medicine Drea Raya MD [address] [facility] [place] [address] 12/29/2022 Office Visit Gastroenterology Keyanna Gordon CRNP [address] [place] [address] Scheduled Procedures Name Priority Associated Diagnoses Date/Ti [...] documented as of this encounter Care Teams Heeler Relationship Specialty Start Date End Date Toby Paz MD [address] [place] [address] PCP - General Family Medicine 11/25/14 documented as of this encounter
--- OUTSIDE RECORDS SUMMARY | 2023-05-14 06:42 | External Medical Summary | Summary of Care ---
Author Name Unknown Organization [facility] Address [address] [facility] [address] Phone [phone] Care Team Providers Care Copra Processor Name Role Phone Toby Paz MD Primary Care Provider +1- [phone] Encounter Details Date Type Department Care Team Description 01/11/2023 Telephone Orthopaedics [facility] [address] [place] [address] Jayson Short, [address] [place] [address] Allergies Active Allergy Reactions Severity Noted Date Comments Other Allergy (See Comments) Anaphylaxis High 2018 Bee stings- swelling documented as of this encounter (statuses as of 01/13/2023) Medications Medication Sig Dispensed Refills Start Date [...] as of this encounter (statuses as of 01/13/2023) Active Problems Problem Noted Date AAA (abdominal [...] ischemic heart disease 11/29/2001 Overview: father had DE's in 40's Gastroesophageal reflux disease with eso phagitis documented as of this encounter (statuses as of 01/13/2023) Resolved Problems Problem Noted Date Resolved Date Facial swelling 06/09/2017 08/07/2019 Urticaria 06/09/2017 08/07/2019 Intestinal obstruction 05/09/2012 7 CLASSICAL MIGRAINE WITHOU MENTION OF INTRACTABLE MIGRAINE 11/29/2001 08/07/2019 Undiagnosed cardiac murmurs 11/29/200102/03 Overview: Not [place] on 11/29/01 documented as of this encounter (statuses as of 01/13/2023) Immunizations Name Administration Dates Next Due HEP A - Hepatitis A (Adult > 18 yrs) 06/06/2020 Pneumococcal Conjugate Vacci ne, 20-valent ([id number]) 06/24/2022 SEASONAL INFLUENZA, PF, 6 M & [...] Miscellaneous Notes * Telephone Encounter - DAISHA Gomes - 01/13/2023 8:19 AM EDT Called and made patient aware. * Telephone Encounter - DAISHA Gomes - 01/11/2023 8:56 AM EDT Patient calling in and requesting a refill on pain medication. Please advise. Thank you. documented in this encounter Plan of Treatment Upcoming Encounters Date Type Specialty Care Team Description 01/25/2023 Office Visit Orthopedics Evan Restrepo MD [facility] [place] [address] 04/11/2023 Office Visit Gastroenterology Keyanna Gordon CRNP [address] [place] [address] 05/11/2023 Office Visit Gastroenterology Marilou Andrews DO [address] [place] [address] Scheduled Procedures Name Priority Associated Diagnoses Date/Ti [...] documented as of this encounter Care Teams Copra Processor Relationship Specialty Start Date End Date Toby Paz MD [address] [place] [address] PCP - General Family Medicine 11/25/14 documented as of this encounter
--- OUTSIDE RECORDS SUMMARY | 2023-05-14 06:43 | External Medical Summary | Summary of Care ---
Author Name Unknown Organization [facility] Address [address] [facility] [place] [address] Phone [phone] Care Team Providers Care Dairy Lab Technician Name Role Phone Toby Paz MD Primary Care Provider +1- [phone] Encounter Details Date Type Department Care Team Description 12/08/2022 Patient Reported Data Patient Survey Ortho [facility] Allergies Active Allergy Reactions Severity Noted Date Comments Other Allergy (See Comments) Anaphylaxis High 2018 Bee stings- swelling documented as of this encounter (statuses as of 12/08/2022) Medications Medication Sig Dispensed Refills Start Date [...] Pain, Severe. 15 Tablet 0 12/07/2022 Active Hospital, Clinic, or Other Facility Administered Medication Ordered Dose Route Frequency Start Date End Date Status albuterol sulfate (PROVENTIL) (2.5 MG/3ML) 0.083% inhalation solution 2.5 mgIndications:SOB (shortness of breath) 2.5 mg NEBULIZER Q4H PRN 05/10/2018 Act guzman documented as of this encounter (statuses as of 12/08/2022) Active Problems Problem Noted Date AAA (abdominal [...] ischemic heart disease 11/29/2001 Overview: father had SD's in 40's Gastroesophageal reflux disease with eso phagitis documented as of this encounter (statuses as of 12/08/2022) Resolved Problems Problem Noted Date Resolved Date Facial swelling 06/09/2017 08/07/2019 Urticaria 06/09/2017 08/07/2019 Intestinal obstruction 05/09/2012 7 CLASSICAL MIGRAINE WITHOU MENTION OF INTRACTABLE MIGRAINE 11/29/2001 08/07/2019 Undiagnosed cardiac murmurs 11/29/200102/03 Overview: Not [place] on 11/29/01 documented as of this encounter (statuses as of 12/08/2022) Immunizations Name Administration Dates Next Due HEP A - Hepatitis A (Adult > 18 yrs) 06/06/2020 Pneumococcal Conjugate Vacci ne, 20-valent ([id number]) 06/24/2022 Seasonal Influenza Virus Vac cine, Unspecified Formulation 05/04/2021,01/13/2020,12/18/2018,2017,02/03/2017,12/22/2015,01/14/2015 Seasonal Influenza, PF, 6 mo ns & Above, IM , (Flulaval) 12/14/2021,05/04/2021,01/13/2020,2018,02/01/2018,02/03/2017 Seasonal Influenza, Quadriva lent, No Preserve, IM [...] Family Medicine Drea Raya MD [address] [place] [address] Scheduled Procedures Name Priority Associated Diagnoses Date/Ti me COLONOSCOPY FLEXIBLE PROXIMAL DIAGNOSTIC Recall History of colon polyps Health Maintenance Due Date Last Done Comments Hepatitis B (1 of 3 - 3-dose series) 1965 COVID-19 Vaccine (#1) 01/12/1965 Albumin/Creatinine Ratio 1982 Zoster Vaccines (1 of 2) 2014 Influenza Vaccine (FLU shot) (#1) 2022 12/14/2021, 05/04/2021, 05/04/2021, Additional history exists Depression Screening, Annual for Pts 12 and Over 03/22/2023 03/22/2022 GFR 10/18/2023 10/17/2022, 04/10/2022, 06/24/2022, Additional history exists COLONOSCOPY-EVERY 3 YRS AGES 18-100 06/30/2024 06/30/2021, 06/30/2021, 05/30/2019, Additional history exists Diabetes Screening 11/21/2025 11/21/2022, 0 11/03/2022, 10/17/2022, Additional history exists DTaP,Tdap,and Td Vaccines (2 - Td or Tdap) 02/15/2027 02/15/2017 Pneumococcal Vaccine: Pediatrics (0 to 5 Years) and At-Risk Patients (6 to 64 Years) Completed 06/24/2022 GARDASIL-HPV IMMUNIZATION SERIES Aged Out No longer [...] documented as of this encounter Care Teams Dairy Lab Technician Relationship Specialty Start Date End Date Toby Paz MD [address] [place] [address] PCP - General Family Medicine 11/25/14 documented as of this encounter
--- OUTSIDE RECORDS SUMMARY | 2023-05-14 06:43 | External Medical Summary | Summary of Care ---
Author Name Unknown Organization [facility] Address [address] [place] [address] Phone [phone] Care Team Providers Care Gi Technician Name Role Phone Toby Paz MD Primary Care Provider +1- [phone] Reason for Visit * Reason Onset Date Comments NEW PATIENT Left hip pain Medication Administration 12/08/2022 Flu an d/or Pneumo Inj * Evaluate & Treat - Unlimited Visits (Within 30 days (routine)) - Authorized Specialty Diagnoses / Procedures Referred By Pj hernandez Referred To Contact Orthopaedic Surgery / Orthopedics Diagnoses Avascular necrosis of bone of left hip (HCC) Other secondary osteoarthritis of left hip Jayson Short, DO [address] [place] [address] Referral ID Status Reason Start Date Expiration Date Visits Requested Visits Authorized [id number] Authorized Specialty Services Required 11/30/[phone] Encounter Details Date Type Department Care Team Description [facility]/08[facility] [address] [place] [address] Wellington Jain MD [address] [place] [address] Hip pain, left*; Need for prophylactic vaccination and inoculation against influenza Allergies Active Allergy Reactions Severity Noted Date [...] 08/07/2019 Undiagnosed cardiac murmurs 11/29/200102/03 Overview: Not [place] on 11/29/01 documented as of this encounter (statuses as of 12/08/2022) Immunizations Name Administration Dates Next Due HEP A - Hepatitis A (Adult > 18 yrs) 06/06/2020 Pneumococcal Conjugate Vacci ne, 20-valent ([id number]) 06/24/2022 Seasonal Influenza Virus Vac cine, Unspecified [...] Sign Reading Time Taken Comments Blood Pressure 106/56 12/08/2022 11:20 AM EDT Pulse 63 12/08/2022 11:20 AM EDT Temperature 37.1 C (98.8 F) 12/08/2022 1 1:20 AM EDT Respiratory Rate - - Oxygen Saturation - - Inhaled Oxygen Concentration - - Weight 83.8 kg (184 lb 11.2 oz) 023 11:20 AM EDT Height 172.7 cm (5' 8") 12/08/2022 11:2 0 AM EDT Body Mass Index 28.08 12/08/2022 11:20 AM EDT documented in this encounter Functional Status Functional Status Response Date of Assess ment Does this person have seriou s difficulty walking or climbing stairs? Yes 08/23/2021 documented as of this encounter Patient Instructions * Patient Instructions* Lee Ann Thomas RN - 12/08/2022 11:43 AM EDT ~~PATIENT INSTRUCTIONS FOR FLU SHOT~~ Possible side effects of influenza vaccine, (flu shot), are usually mild and include: 1. Soreness or redness at injection site 2. Low grade fever 3. Body aches You may use Tylenol/Acetaminophen as needed for these symptoms. LET YOUR DOCTOR KNOW IMMEDIATELY IF YOU HAVE DIFFICULTY BREATHING OR SWALLOWING, EXPERIENCE ITCHINGOF FEET OR HANDS, HAVE SWELLING OF EYES, FACE OR INSIDE OF NOSE. 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 No Have you had Guillain-Madison Syndrome (an illness that causes paralysis) within the last 6 weeks? No Have you had the flu shot in the past? YES Have you ever had a reaction to the flu shot? No Lee Ann Thomas RN, 12/08/2022 11:43 AM Immunization Administration Documentation Time Out Procedure Performed: Yes Patient Identified (Ask Name/Date of ): Yes Does the patient have a fever greater than 101 degrees today? No Patient allergic to latex? No VFC Stock: No Immunization(s) verified: Yes, Immunization Name: Flu, VIS Sheet(s) given: Yes Verified Side and Site: Yes Verified Shot(s) with Parent(s)/Patient: Yes documented in this encounter Plan of Treatment Upcoming Encounters Date Type Specialty Care Team Description 12/27/2022 Office Visit Family Medicine Drea Raya MD [address] [place] [address] Pending Results Name Type Priority Associated Diagnoses Date /Time XR HIP UNILAT 2-3 VIEWS INCLUDING AP PELVIS Medical Imaging Routine Hip pain, left 12/08/2022 11:43 AM EDT Scheduled Procedures Name Priority Associated Diagnoses Date/Ti me COLONOSCOPY FLEXIBLE PROXIMAL DIAGNOSTIC Recall History of colon polyps Health Maintenance Due Date Last Done Comments Hepatitis B (1 of 3 - 3-dose series) 1965 COVID-19 Vaccine (#1) 01/12/1965 Albumin/Creatinine Ratio 1982 Zoster Vaccines (1 of 2) 2014 Depression Screening, Annual for Pts 12 and Over 03/22/2023 03/22/2022 GFR 10/18/2023 10/17/2022, 04/2 10/2022, 06/24/2022, Additional history exists COLONOSCOPY-EVERY 3 [...] this encounter Visit Diagnoses Diagnosis Hip pain, left- Primary Pain in joint, pelvic region and thigh Need for prophylactic vaccination and inoculation against influenza documented in this encounter Additional Health Concerns Infection Onset Date Last Indicated Resolved Time Hepatitis A 08/23/2021 08/23/2021 documented as of this encounter Care Teams Gi Technician Relationship Specialty Start Date End Date Toby Paz MD [address] [place] [address] PCP - General Family Medicine 11/25/14 documented as of this encounter
--- OUTSIDE RECORDS SUMMARY | 2023-05-14 06:43 | External Medical Summary | Summary of Care ---
Author Name Unknown Organization [facility] Address [address] [facility] [place] [address] Phone [phone] Care Team Providers Care Poultry Pinner Name Role Phone Toby Paz MD Primary Care Provider +1- [phone] Encounter Details Date Type Department Care Team Description 12/07/2022 Orders Only Orthopaedics, [address], [place] [address] [place] [address] Martin Phelan PA-C [address] [place] [id number] Hip pain, left Allergies Active Allergy Reactions Severity Noted Date Comments Other Allergy (See Comments) Anaphylaxis High 2018 Bee stings- swelling documented as of this encounter (statuses as of 12/07/2022) Medications Medication Sig Dispensed Refills Start Date [...] MG Oral Tablet (Oxy IR)Indications:Hi p pain, left Take 1 Tablet by mouth every 12 hours as needed for Pain, Severe. 15 Tablet 0 12/07/2022 Active oxyCODONE HCl 5 MG Oral Tablet (Oxy IR)Indications:Hi p pain, left Take 1 Tablet by mouth every 12 hours as needed for Pain, Severe. 15 Tablet 0 11/28/2022 12/07/2022 Discontinue d(Refill) Hospital, Clinic, or Other Facility Administered Medication Ordered Dose Route Frequency Start Date End Date Status albuterol sulfate (PROVENTIL) (2.5 MG/3ML) 0.083% inhalation solution 2.5 mgIndications:SOB (shortness of breath) 2.5 mg NEBULIZER Q4H PRN 05/10/2018 Act guzman documented as of this encounter (statuses as of 12/07/2022) Active Problems Problem Noted Date AAA (abdominal [...] ischemic heart disease 11/29/2001 Overview: father had VA's in 40's Gastroesophageal reflux disease with eso phagitis documented as of this encounter (statuses as of 12/07/2022) Resolved Problems Problem Noted Date Resolved Date Facial swelling 06/09/2017 08/07/2019 Urticaria 06/09/2017 08/07/2019 Intestinal obstruction 05/09/2012 7 CLASSICAL MIGRAINE WITHOU MENTION OF INTRACTABLE MIGRAINE 11/29/2001 08/07/2019 Undiagnosed cardiac murmurs 11/29/200102/03 Overview: Not [place] on 11/29/01 documented as of this encounter (statuses as of 12/07/2022) Immunizations Name Administration Dates Next Due HEP A - Hepatitis A (Adult > 18 yrs) 06/06/2020 Pneumococcal Conjugate Vacci ne, 20-valent ([id number]) 06/24/2022 Seasonal Influenza Virus Vac cine, Unspecified [...] Progress Notes * Martin Phelan PA-C - 12/07/2022 3:04 PM EDT Updated prescription for pain medications sent to patient's preferred pharmacy per request. Allergylist and PDMP reviewed before prescription placement. documented in this encounter Plan of Treatment Upcoming Encounters Date Type Specialty Care Team Description 12/08/2022 Office Visit Orthopedics Wellington Jain MD [address] [place] [address] 12/27/2022 Office Visit Family Medicine Drea Raya MD [address] [place], [place] [phone] Scheduled Procedures Name Priority Associated Diagnoses Date/Ti [...] and Over 03/22/2023 03/22/2022 GFR 10/18/2023 10/17/2022, 07/03, 06/24/2022, [...] Pain in joint, pelvic region and thigh documented in this encounter Additional Health Concerns Infection Onset Date Last Indicated Resolved Time Hepatitis A 08/23/2021 08/23/2021 documented as of this encounter Care Teams Poultry Pinner Relationship Specialty Start Date End Date Toyb Paz MD [address] [place], [place] [id number] PCP - General Family Medicine 11/25/14 documented as of this encounter
--- OUTSIDE RECORDS SUMMARY | 2023-05-14 06:43 | External Medical Summary | Summary of Care ---
Author Name Unknown Organization [facility] Address [address] [facility] [place] [address] Phone [phone] Care Team Providers Care Events Specialist Name Role Phone Toby Paz MD Primary Care Provider +1- [phone] Encounter Details Date Type Department Care Team [...] ischemic heart disease 11/29/2001 Overview: father had NH's in 40's Gastroesophageal reflux disease with eso phagitis documented as of this encounter (statuses as of 12/08/2022) Resolved Problems Problem Noted Date Resolved Date Facial swelling 06/09/2017 08/07/2019 Urticaria 06/09/2017 08/07/2019 Intestinal obstruction 05/09/2012 7 CLASSICAL MIGRAINE WITHOU MENTION OF INTRACTABLE MIGRAINE 11/29/2001 08/07/2019 Undiagnosed cardiac murmurs 11/29/200102/03 Overview: Not [place] on 11/29/01 documented as of this encounter (statuses as of 12/08/2022) Immunizations Name Administration Dates Next Due HEP A - Hepatitis A (Adult > 18 yrs) 06/06/2020 Pneumococcal Conjugate Vacci ne, 20-valent ([id number]) 06/24/2022 Seasonal Influenza Virus Vac cine, Unspecified [...] Family Medicine Drea Raya MD [address] [place] [address] Scheduled Procedures Name Priority Associated [...] documented as of this encounter Care Teams Events Specialist Relationship Specialty Start Date End Date Toby Paz MD [address] [place] [address] PCP - General Family Medicine 11/25/14 documented as of this encounter
--- OUTSIDE RECORDS SUMMARY | 2023-05-14 06:43 | External Medical Summary | Summary of Care ---
Author Name Unknown Organization [facility] Address [address] [facility] [place] [place] [address] Phone [phone] Care Team Providers Care Poacher Wringer Operator Name Role Phone Toby Paz MD Primary Care Provider +1- [phone] Encounter Details Date Type Department Care Team [...] 08/07/2019 Undiagnosed cardiac murmurs 11/29/200102/03 Overview: Not [place] on 11/29/01 documented as of this encounter (statuses as of 12/08/2022) Immunizations Name Administration Dates Next Due HEP A - Hepatitis A (Adult > 18 yrs) 06/06/2020 Pneumococcal Conjugate Vacci ne, 20-valent ([id number]) 06/24/2022 Seasonal Influenza Virus Vac cine, Unspecified [...] Family Medicine Drea Raya MD [address] [place] [address] Scheduled Procedures Name Priority Associated [...] documented as of this encounter Care Teams Poacher Wringer Operator Relationship Specialty Start Date End Date Toby Paz MD [address] [place] [address] PCP - General Family Medicine 11/25/14 documented as of this encounter
--- OUTSIDE RECORDS SUMMARY | 2023-05-14 06:43 | External Medical Summary | Summary of Care ---
Author Name Unknown Organization [facility] Address [address] [facility] [place] [address] Phone [phone] Care Team Providers Care Street Cleaner Name Role Phone Toby Paz MD Primary Care Provider +1- [phone] Reason for Visit * Reason Onset Date Comments Surgery 12/08/2022 Encounter Details Date Type Department Care Team Description 12/08/2022 Telephone Orthopaedics [facility] [address] [place] [address] Jayson Short, [address] [place] [address] Surgery Allergies Active Allergy Reactions Severity Noted [...] ischemic heart disease 11/29/2001 Overview: father had CT's in 40's Gastroesophageal reflux disease with eso phagitis documented as of this encounter (statuses as of 12/08/2022) Resolved Problems Problem Noted Date Resolved Date Facial swelling 06/09/2017 08/07/2019 Urticaria 06/09/2017 08/07/2019 Intestinal obstruction 05/09/2012 7 CLASSICAL MIGRAINE WITHOU MENTION OF INTRACTABLE MIGRAINE 11/29/2001 08/07/2019 Undiagnosed cardiac murmurs 11/29/200102/03 Overview: Not [place] on 11/29/01 documented as of this encounter (statuses as of 12/08/2022) Immunizations Name Administration Dates Next Due HEP A - Hepatitis A (Adult > 18 yrs) 06/06/2020 Pneumococcal Conjugate Vacci ne, 20-valent ([id number]) 06/24/2022 Seasonal Influenza Virus Vac cine, Unspecified [...] encounter Miscellaneous Notes * Telephone Encounter - Lillian Barber, DAISHA - 12/08/2022 2:54 PM EDT Carmen (significant other) called to inquire the surgery status. Pt went to [place] today to see Dr. Jain per Dr. Short's referral. Patient's SO states Dr. Jain was confused as to what the patient was sent to him for, and she said he only prescribed Diclofenac Sodium. Please advise. documented in this encounter Plan of Treatment Upcoming Encounters Date Type Specialty Care Team Description 12/27/2022 Office Visit Family Medicine Drea Raya MD [address] [place] [address] Scheduled Procedures Name Priority Associated [...] documented as of this encounter Care Teams Street Cleaner Relationship Specialty Start Date End Date Toby Paz MD [address] [place] [facility] [place] [address] PCP - General Family Medicine 11/25/14 documented as of this encounter
--- OUTSIDE RECORDS SUMMARY | 2023-05-14 06:43 | External Medical Summary | Summary of Care ---
Author Name Unknown Organization [facility] Address [address] [facility] [place] [address] Phone [phone] Care Team Providers Care Dock Attendant Name Role Phone Toby Paz MD Primary Care Provider +1- [phone] Encounter Details Date Type Department Care Team [...] 08/07/2019 Undiagnosed cardiac murmurs 11/29/200102/03 Overview: Not [place] on 11/29/01 documented as of this encounter (statuses as of 12/08/2022) Immunizations Name Administration Dates Next Due HEP A - Hepatitis A (Adult > 18 yrs) 06/06/2020 Pneumococcal Conjugate Vacci ne, 20-valent ([id number]) 06/24/2022 Seasonal Influenza Virus Vac cine, Unspecified [...] Family Medicine Drea Raya MD [address] [place] [address] Scheduled Procedures Name Priority Associated [...] documented as of this encounter Care Teams Dock Attendant Relationship Specialty Start Date End Date Toby Paz MD [address] [place] [address] PCP - General Family Medicine 11/25/14 documented as of this encounter
--- OUTSIDE RECORDS SUMMARY | 2023-05-14 06:43 | External Medical Summary | Summary of Care ---
Author Name Unknown Organization [facility] Address [address] [place] [address] Phone [phone] Care Team Providers Care Outpatient Clerk Name Role Phone Toby Paz MD Primary Care Provider +1- [phone] Reason for Visit * Reason Onset Date [...] hip Jayson Short, DO [address] [place] [address] Referral ID Status Reason Start Date Expiration Date Visits Requested Visits Authorized [id number] Authorized Specialty Services Required 11/30/2022 999 999 Encounter Details Date Type Department Care Team Description [facility] [address] [place] [address] Wellington Jain MD [address] [place] [address] Hip pain, left*; Need for prophylactic vaccination [...] ischemic heart disease 11/29/2001 Overview: father had OR's in 40's Gastroesophageal reflux disease with eso phagitis documented as of this encounter (statuses as of 12/08/2022) Resolved Problems Problem Noted Date Resolved Date Facial swelling 06/09/2017 08/07/2019 Urticaria 06/09/2017 08/07/2019 Intestinal obstruction 05/09/2012 7 CLASSICAL MIGRAINE WITHOU MENTION OF INTRACTABLE MIGRAINE 11/29/2001 08/07/2019 Undiagnosed cardiac murmurs 11/29/200102/03 Overview: Not [place] on 11/29/01 documented as of this encounter (statuses as of 12/08/2022) Immunizations Name Administration Dates Next Due HEP A - Hepatitis A (Adult > 18 yrs) 06/06/2020 Pneumococcal Conjugate Vacci ne, 20-valent ([id number]) 06/24/2022 Seasonal Influenza Virus Vac cine, Unspecified [...] symptoms or fever? No Have you had Guillain-Austin Syndrome (an illness that causes paralysis) within [...] Office Visit Family Medicine Drea Raya MD [address] [place] [address] Pending Results Name Type Priority Associated Diagnoses [...] documented as of this encounter Care Teams Outpatient Clerk Relationship Specialty Start Date End Date Toby Paz MD [address] [place] [address] PCP - General Family Medicine 11/25/14 documented as of this encounter
--- OUTSIDE RECORDS SUMMARY | 2023-05-14 06:43 | External Medical Summary | Summary of Care ---
Author Name Unknown Organization [facility] Address [address] [facility] [place] [address] Phone [phone] Care Team Providers Care Water Service Supervisor Name Role Phone Toby Paz MD Primary Care Provider +1- [phone] Encounter Details Date Type Department Care Team [...] ischemic heart disease 11/29/2001 Overview: father had AK's in 40's Gastroesophageal reflux disease with eso phagitis documented as of this encounter (statuses as of 12/08/2022) Resolved Problems Problem Noted Date Resolved Date Facial swelling 06/09/2017 08/07/2019 Urticaria 06/09/2017 08/07/2019 Intestinal obstruction 05/09/2012 7 CLASSICAL MIGRAINE WITHOU MENTION OF INTRACTABLE MIGRAINE 11/29/2001 08/07/2019 Undiagnosed cardiac murmurs 11/29/200102/03 Overview: Not [place] on 11/29/01 documented as of this encounter (statuses as of 12/08/2022) Immunizations Name Administration Dates Next Due HEP A - Hepatitis A (Adult > 18 yrs) 06/06/2020 Pneumococcal Conjugate Vacci ne, 20-valent ([id number]) 06/24/2022 Seasonal Influenza Virus Vac cine, Unspecified [...] Family Medicine Drea Raya MD [address] [place] [address] Scheduled Procedures Name Priority Associated [...] documented as of this encounter Care Teams Water Service Supervisor Relationship Specialty Start Date End Date Toby Paz MD [address] [place] [address] PCP - General Family Medicine 11/25/14 documented as of this encounter
--- OUTSIDE RECORDS SUMMARY | 2023-05-14 06:43 | External Medical Summary | Summary of Care ---
Author Name Unknown Organization [facility] Address [address] [facility] [place] [address] Phone [phone] Care Team Providers Care Special Machine Stitcher Name Role Phone Toby Paz MD Primary Care Provider +1- [phone] Encounter Details Date Type Department Care Team [...] ischemic heart disease 11/29/2001 Overview: father had [place]'s in 40's Gastroesophageal reflux disease with eso phagitis documented as of this encounter (statuses as of 12/08/2022) Resolved Problems Problem Noted Date Resolved Date Facial swelling 06/09/2017 08/07/2019 Urticaria 06/09/2017 08/07/2019 Intestinal obstruction 05/09/2012 7 CLASSICAL MIGRAINE WITHOU MENTION OF INTRACTABLE MIGRAINE 11/29/2001 08/07/2019 Undiagnosed cardiac murmurs 11/29/200102/03 Overview: Not [place] on 11/29/01 documented as of this encounter (statuses as of 12/08/2022) Immunizations Name Administration Dates Next Due HEP A - Hepatitis A (Adult > 18 yrs) 06/06/2020 Pneumococcal Conjugate Vacci ne, 20-valent ([id number]) 06/24/2022 Seasonal Influenza Virus Vac cine, Unspecified [...] Family Medicine Drea Raya MD [address] [place] [address] Scheduled Procedures Name Priority Associated [...] documented as of this encounter Care Teams Special Machine Stitcher Relationship Specialty Start Date End Date Toby Paz MD [address] [place] [address] PCP - General Family Medicine 11/25/14 documented as of this encounter
--- OUTSIDE RECORDS SUMMARY | 2023-05-14 06:43 | External Medical Summary | Summary of Care ---
Author Name Unknown Organization [facility] Address [address] [facility] [address] Phone [phone] Care Team Providers Care Council Member Name Role Phone Kiley Singh MD Primary Care Provider +1- [phone] Reason for Referral * Evaluate & Treat - Unlimited Visits (Within 30 days (routine)) - Authorized Specialty Diagnoses / Procedures Referred By Pj t Referred To Contact Orthopaedic Surgery / Orthopedics Diagnoses Avascular necrosis of bone of left hip (HCC) Other secondary osteoarthritis of left hip Maurice Lopez DO [address] [facility] [place] [address] Referral ID Status Reason Start Date Expiration Date Visits Requested Visits Authorized [id number] Authorized Specialty Services Required 11/30/2022 999 999 Question Answer Referral Priority Within 30 days (routine) What body part is the patient being seen for? Hip What condition is the patient being seen for? Arthritis including related infection Comments Patient for hip replacement - Recommending higher level of care due to medical comorbidities Reason for Visit * Reason Onset Date Comments Advice 11/22/2022 Pls call pt's robles cox ERICK Status Check 11/22/2022 Encounter Details Date Type Department Care Team Description 11/22/2022 Telephone [facility] [address] [place] [address] Kiley Singh MD [address] [place] [address] Advice (Pls call pt's fikenny ERICK); Statu... Allergies Active Allergy Reactions Severity Noted Date Comments Other Allergy (See Comments) Anaphylaxis High 2018 Bee stings- swelling documented as of this encounter (statuses as of 11/30/2022) Medications Medication Sig Dispensed Refills Start Date [...] Pain, Severe. 45 Tablet 0 10/10/2022 Active Pantoprazole Sodium 40 MG Oral Tablet Delayed Release (Protonix)Indica tions:Gastroesop hageal reflux disease take 1 tablet by mouth twice a day 180 Tablet 1 06/13/2022 11/29/19 23 Discontinued FLUoxetine HCl 10 MG Oral Capsule (PROzac) take 1 capsule by mouth every morning 30 Capsule 3 07/12/2022 11/29/19 23 Discontinued Xifaxan 550 MG Oral Tablet (rifAXIMin) take 1 tablet by mouth IN THE MORNING then take 1 tablet by mouth BEFORE BEDTIME 60 Tablet 1 09/29/2022 11/29/19 23 Discontinued Furosemide 40 MG Oral Tablet (Lasix) Take 1 Tablet by mouth in the morning. In the morning.. 0 10/30/2022 11/29/19 23 Discontinued oxyCODONE HCl 5 MG Oral Tablet (Oxy IR)Indications:H ip pain, left Take 1 Tablet by mouth every 12 hours as needed for Pain, Severe. 15 Tablet 0 11/21/2022 11/27/19 23 Discontinued(Ref ill) Hospital, Clinic, or Other Facility Administered Medication Ordered Dose Route Frequency Start Date End Date Status albuterol sulfate (PROVENTIL) (2.5 MG/3ML) 0.083% inhalation solution 2.5 mgIndications:SOB (shortness of breath) 2.5 mg NEBULIZER Q4H PRN 05/10/2018 Act guzman documented as of this encounter (statuses as of 11/30/2022) Active Problems Problem Noted Date AAA (abdominal [...] ischemic heart disease 11/29/2001 Overview: father had ND's in 40's Gastroesophageal reflux disease with eso phagitis documented as of this encounter (statuses as of 11/30/2022) Resolved Problems Problem Noted Date Resolved Date Facial swelling 06/09/2017 08/07/2019 Urticaria 06/09/2017 08/07/2019 Intestinal obstruction 05/09/2012 7 CLASSICAL MIGRAINE WITHOU MENTION OF INTRACTABLE MIGRAINE 11/29/2001 08/07/2019 Undiagnosed cardiac murmurs 11/29/200102/03 Overview: Not [place] on 11/29/01 documented as of this encounter (statuses as of 11/30/2022) Immunizations Name Administration Dates Next Due HEP A - Hepatitis A (Adult > 18 yrs) 06/06/2020 Pneumococcal Conjugate Vacci ne, 20-valent ([id number]) 06/24/2022 Seasonal Influenza Virus Vac cine, Unspecified [...] as of this encounter Miscellaneous Notes * Addendum Note - Maurice Lopez DO - 11/30/2022 7:37 AM EDTAddended by: MAURICE LOPEZ on: 11/30/2022 07:37 AM Modules accepted: Orders * Telephone Encounter - Chelle Brewster LPN - 11/25/2022 12:44 PM EDT Left message for pt to call back. * Telephone Encounter - Kiley Singh MD - 11/24/2022 5:16 PM EDT Please call to notify that urine culture was negative and UA shows no bacteria. No antibiotic is needed. Nothing on urine specimen to prevent moving forward with surgery. Forwarding to Dr Lopez as well. * Telephone Encounter - Kiley Singh MD - 11/23/2022 3:43 PM EDT As in my note below, treatment will depend on repeat urine. Is in process currently. * Telephone Encounter - Tata Lopez LPN - 11/23/2022 12:40 PM EDT Patient is aware of Dr. Singh recommendations. States he gave a urine this morning. * Telephone Encounter - JULIO Nuno - 11/23/2022 9:29 AM EDT Please advise as below. * Telephone Encounter - DAISHA Keith - 11/23/2022 8:18 AM EDT Dennis is calling to check status of abx. She is extremely upset. States that the pt has tested positive for a UTI on 11/03, and pt was preppedfor surgery yesterday and was told 15 mins prior to time out that he couldn't have it done because of the infxn. She states no one ever called to let her know that he was positive for a UTI. She said they've been waiting 6 months for this surgery, and the pt is having difficulty walking due to the pain. She was told abx would be sent in yesterday, but called the pharmacy and nothing has been sent in. Due to pt's difficulty ambulating, she would like to know when the abx have been sent,so that the pt can go leave a urine sample at the lab, and then roller picker the 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 Pls f/u w/ her ERICK, as the ortho surgeon will not reschedule surgery until pt has been treated. I do see note by PCP in regard to UA/ ucx, but pt's dennis states they were told abx would be sentin yesterday? So unsure how to proceed here. Will CC clinic leadership as well for f/u, given that the dennis is quite upset w/ the situation. * Addendum Note - Kiley Singh MD - 11/22/2022 5:18 PM EDTAddended by: KILEY SINGH on: 11/22/2022 05:18 PM Modules accepted: Orders * Telephone Encounter - Kiley Singh MD - 11/22/2022 5:14 PM EDT No culture was done on the specimen. I do not see any evidence that he has any symptoms. There were no WBCs on the UA - suggesting that this is not a UTI. Based on all of the above, my suggestion is that he come to the clinic to give a new urine specimenfor UA and culture. Treatment or clearance for surgery will depend on that result. Please see if heis having any urinary symptoms. * Telephone Encounter - DAISHA Londono - 11/22/2022 3:39 PM EDT Reason for patient's call: Patient needs an antibiotic has bacteria in urine. Was to have surgery. Was told to get an antibiotic from his family doctor. DAISHA Londono * Telephone Encounter - Meredith Ang CPhT - 11/22/2022 1:04 PM EDT Pt's EC calling to check on status of a medication to be ordered for bacteria in his urine. Caller can be reached at [phone]. Thank you, Estela Ang Beader [facility] (Former[facility]) 11/22/2022,1:04 PM * Telephone Encounter - DAISHA Manjarrez - 11/22/2022 11:56 AM EDT Patient's dennis called because he was supposed to have total hip surgery but it was cancelled because patient has bacteria in urine. Urine was ordered by ortho however they never prescribed anything an they are referring back to PCP for medication. Please advise is something can be ordered for the patient. documented in this encounter Plan of Treatment Upcoming Encounters Date Type Specialty Care Team Description 12/27/2022 Office Visit Family Medicine Drea Raya MD [address] [place] [address] Scheduled Procedures Name Priority Associated Diagnoses Date/Ti me COLONOSCOPY FLEXIBLE PROXIMAL DIAGNOSTIC Recall History of colon polyps Scheduled Referrals Name Type Priority Associated Diagnoses Orde r Schedule ORTHOPAEDICS REFERRAL OP Referral Within 30 days (routine) Avascular necrosis of bone of left hip (HCC) Other secondary osteoarthritis of left hip Ordered: 11/30/2022 Health Maintenance Due Date Last Done Comments [...] filedocumented as of this encounter Results * CULTURE, URINE, QUANTITATIVE (11/23/2022 12:08 PM EDT) Culture Growth No significant growth 11/24/2022 3:15 PM EDT LAB[facility]ATORY [facility] Urine Urine specimen obtained by clean catch procedure / Unknown Non-blood Collection / Unknown 11/23/2022 12:08 PM EDT 11/23/2022 12:08 PM EDT Kiley Singh MD LAB MICRO - GENERA L ORDERABLES LAB[facility]ATORY [facility] [address] [place] [address] * (ABNORMAL) URINALYSIS, REFLEX TO MICROSCOPIC (11/23/2022 12:08 PM EDT) Color, Urine Yellow Colorless, Light Yellow, Yellow, Dark Yellow 11/24/2022 1:27 AM EDT LABORATORY C Clarity, Urine Clear Clear 11/24/2022 1:27 AM EDT LAB[facility]ORY [facility] Glucose, Urine Negative Negative mg/dL 11/24/2022 1:27 AM EDT LABORATORY C Bilirubin, Urine Negative Negative 11/24/2022 1:27 AM EDT LABORATORY C Ketone, Urine Negative Negative mg/dL 11/24/2022 1:27 AM EDT LABORATORY C Specific [place]en, Urine 1.026 1.003 - 1.030 11/24/2022 1:27 AM EDT LABORATORY C Blood, Urine Small(A) Negative 11/24/2022 1:27 AM EDT [facility] pH, Urine 6.0 5.0 - 7.5 Units 11/24/2022 1:27 AM EDT [facility] Protein, Urine Trace(A) Negative mg/dL 11/24/2022 1:27 AM EDT LABORATORY C Urobilinogen, Urine 2.0(A) Normal mg/dL 11/24/2022 1:27 AM EDT LABORATORY C Nitrite, Urine Negative Negative 11/24/2022 1:27 AM EDT LABORATORY C Esterase, Urine Negative Negative 11/24/2022 1:27 AM EDT [facility] RBC, Urine 3-5(A) 0 - 2 /HPF 11/24/2022 1:27 AM EDT [facility] WBC, Urine 3-5(A) 0 - 2 /HPF 11/24/2022 1:27 AM EDT [facility] Bacteria, Urine 0-25 0 - 25 /HPF 11/24/2022 1:27 AM EDT [facility] Hyaline, Cast, Urine 1-4(A) None /LPF 11/24/2022 1:27 AM EDT [facility] Urine Urine specimen obtained by clean catch procedure / Unknown Non-blood Collection / Unknown 11/23/2022 12:08 PM EDT 11/23/2022 12:08 PM EDT Kiley Singh MD LAB URINE ORDERABL ES [facility] [address] [place] [address] documented in this encounter Visit Diagnoses Diagnosis Bacteria in urine- Primary Other nonspecific finding on examination of urine Avascular necrosis of bone of left hip (HCC) Other secondary osteoarthritis of left hip documented in this encounter Additional Health Concerns Infection Onset Date Last Indicated Resolved Time Hepatitis A 08/23/2021 08/23/2021 documented as of this encounter Care Teams Council Member Relationship Specialty Start Date End Date Kiley Singh MD [facility] [address] [place], [place] [id number] PCP - General Family Medicine 11/25/14 documented as of this encounter
--- OUTSIDE RECORDS SUMMARY | 2023-05-14 06:43 | External Medical Summary | Summary of Care ---
Author Name Unknown Organization [facility] Address [address] [place] [address] Phone [phone] Care Team Providers Care Rivet Catcher Name Role Phone Toby Paz MD Primary Care Provider +1- [phone] Encounter Details Date Type Department Care Team Description 12/08/2022 Hospital Encounter Radiology, [place] [address] [place] [address] Arrived Allergies Active Allergy Reactions Severity Noted Date Comments Other Allergy (See Comments) Anaphylaxis High 2018 Bee stings- swelling documented as of this encounter (statuses as of 12/09/2022) Medications Medication Sig Dispensed Refills Start Date [...] as of this encounter (statuses as of 12/09/2022) Active Problems Problem Noted Date AAA (abdominal [...] ischemic heart disease 11/29/2001 Overview: father had CA's in 40's Gastroesophageal reflux disease with eso phagitis documented as of this encounter (statuses as of 12/09/2022) Resolved Problems Problem Noted Date Resolved Date Facial swelling 06/09/2017 08/07/2019 Urticaria 06/09/2017 08/07/2019 Intestinal obstruction 05/09/2012 7 CLASSICAL MIGRAINE WITHOU MENTION OF INTRACTABLE MIGRAINE 11/29/2001 08/07/2019 Undiagnosed cardiac murmurs 11/29/200102/03 Overview: Not [place] on 11/29/01 documented as of this encounter (statuses as of 12/09/2022) Immunizations Name Administration Dates Next Due HEP A - Hepatitis A (Adult > 18 yrs) 06/06/2020 Pneumococcal Conjugate Vacci ne, 20-valent ([id number]) 06/24/2022 Seasonal Influenza Virus Vac cine, Unspecified [...] Family Medicine Drea Raya MD [address] [place], [place] [id number] Pending Results Name Type Priority Associated Diagnoses [...] documented as of this encounter Care Teams Rivet Catcher Relationship Specialty Start Date End Date Toby Paz MD [address] [place] [address] PCP - General Family Medicine 11/25/14 documented as of this encounter
--- OUTSIDE RECORDS SUMMARY | 2023-05-14 06:43 | External Medical Summary | Summary of Care ---
Author Name Unknown Organization [facility] Address [address] [place] [facility] [place] [address] Phone [phone] Care Team Providers Care Dry Cans Back Tender Name Role Phone Kiley Singh MD Primary Care Provider +1- [phone] Reason for Visit * Reason Comments eRx-Medication Refill Encounter Details Date Type Department Care Team Description 11/28/2022 Refill [facility] [address] [place] [address] Kiley Singh MD [address] [place] [address] Gastroesophageal reflux disease Allergies Active Allergy Reactions Severity Noted Date Comments Other Allergy (See Comments) Anaphylaxis High 2018 Bee stings- swelling documented as of this encounter (statuses as of 11/28/2022) Medications Medication Sig Dispensed Refills Start Date [...] BEFORE BEDTIME 60 Tablet 1 11/28/2022 Active oxyCODONE HCl 5 MG Oral Tablet (Oxy IR)Indications:Hi p pain, left Take 1 Tablet by mouth every 12 hours as needed for Pain, Severe. 15 Tablet 0 11/28/2022 Active Furosemide 40 MG Oral Tablet (Lasix) take 1 tablet by mouth every morning 30 Tablet 2 11/28/2022 Active Pantoprazole Sodium 40 MG Oral Tablet Delayed Release (Protonix)Indicat ions:Gastroesopha geal reflux disease take 1 tablet by mouth twice a day 180 Tablet 3 11/28/2022 Active Pantoprazole Sodium 40 MG Oral Tablet Delayed Release (Protonix)Indicat ions:Gastroesopha geal reflux disease take 1 tablet by mouth twice a day 180 Tablet 1 06/13/2022 3 Discontinued Hospital, Clinic, or Other Facility Administered Medication Ordered Dose Route Frequency Start Date End Date Status albuterol sulfate (PROVENTIL) (2.5 MG/3ML) 0.083% inhalation solution 2.5 mgIndications:SOB (shortness of breath) 2.5 mg NEBULIZER Q4H PRN 05/10/2018 Act guzman documented as of this encounter (statuses as of 11/28/2022) Active Problems Problem Noted Date AAA (abdominal [...] as of this encounter (statuses as of 11/28/2022) Resolved Problems Problem Noted Date Resolved Date Facial swelling 06/09/2017 08/07/2019 Urticaria 06/09/2017 08/07/2019 Intestinal obstruction 05/09/2012 7 CLASSICAL MIGRAINE WITHOU MENTION OF INTRACTABLE MIGRAINE 11/29/2001 08/07/2019 Undiagnosed cardiac murmurs 11/29/200102/03 Overview: Not [place] on 11/29/01 documented as of this encounter (statuses as of 11/28/2022) Immunizations Name Administration Dates Next Due HEP A - Hepatitis A (Adult > 18 yrs) 06/06/2020 Pneumococcal Conjugate Vacci ne, 20-valent ([id number]) 06/24/2022 Seasonal Influenza Virus Vac cine, Unspecified [...] encounter Miscellaneous Notes * Telephone Encounter - Mirna Guerrero RPh - 11/28/2022 7:54 PM EDTSigned Prescriptions: Disp Refills Pantoprazole Sodium 40 MG Oral Tablet Elizabeth*180 Ta*3 Sig: take 1 tablet by mouth twice a dayAuthorizing Provider: KILEY SINGH User: MIRNA GUERRERO documented in this encounter Plan of Treatment Upcoming Encounters Date Type Specialty Care Team Description 12/27/2022 Office Visit Family Medicine Drea Raya MD [address] [place] [address] Scheduled Procedures Name Priority Associated [...] as of this encounter Visit Diagnoses Diagnosis Gastroesophageal reflux disease Esophageal reflux documented in this encounter Additional Health Concerns Infection Onset Date Last Indicated Resolved Time Hepatitis A 08/23/2021 08/23/2021 documented as of this encounter Care Teams Dry Cans Back Tender Relationship Specialty Start Date End Date Kiley Singh MD [address] [place] [address] PCP - General Family Medicine 11/25/14 documented as of this encounter
--- OUTSIDE RECORDS SUMMARY | 2023-05-14 06:43 | External Medical Summary | Summary of Care ---
Author Name Unknown Organization [facility] Address [address] [facility] [place] [address] Phone [phone] Care Team Providers Care Licensed Investment Sales Assistant Name Role Phone Toby Paz MD Primary Care Provider +1- [phone] Reason for Visit * Reason Onset Date Comments Advice 12/16/2022 Encounter Details Date Type Department Care Team Description 12/16/2022 Telephone Orthopaedics, [facility], Andriy [address] [place] [address] Jayson Short, DO [address] [facility] [place] [address] Advice Allergies Active Allergy Reactions Severity Noted Date Comments Other Allergy (See Comments) Anaphylaxis High 2018 Bee stings- swelling documented as of this encounter (statuses as of 12/16/2022) Medications Medication Sig Dispensed Refills Start Date [...] as of this encounter (statuses as of 12/16/2022) Active Problems Problem Noted Date AAA (abdominal [...] as of this encounter (statuses as of 12/16/2022) Resolved Problems Problem Noted Date Resolved Date Facial swelling 06/09/2017 08/07/2019 Urticaria 06/09/2017 08/07/2019 Intestinal obstruction 05/09/2012 7 CLASSICAL MIGRAINE WITHOU MENTION OF INTRACTABLE MIGRAINE 11/29/2001 08/07/2019 Undiagnosed cardiac murmurs 11/29/200102/03 Overview: Not [place] on 11/29/01 documented as of this encounter (statuses as of 12/16/2022) Immunizations Name Administration Dates Next Due HEP A - Hepatitis A (Adult > 18 yrs) 06/06/2020 Pneumococcal Conjugate Vacci ne, 20-valent ([id number]) 06/24/2022 Seasonal Influenza Virus Vac cine, Unspecified [...] Telephone Encounter - Jayson Short DO - 12/16/2022 4:00 PM EDT Attempted to contact Mauro today to discuss recent referral as well as to coordinate additional referral likely outside [facility] at tertiary facility. Phone calls attempted x3. documented in this encounter Plan of Treatment Upcoming Encounters Date Type Specialty Care Team Description 12/27/2022 Office Visit Family Medicine Drea Raya MD [address] [place] [address] 12/29/2022 Office Visit Gastroenterology Keyanna Gordon CRNP [address] [place] [address] Scheduled Procedures Name Priority Associated Diagnoses Date/Ti [...] documented as of this encounter Care Teams Licensed Investment Sales Assistant Relationship Specialty Start Date End Date Oesterling, Toby R, MD [address] [place], [place] [phone] PCP - General Family Medicine 11/25/14 documented as of this encounter
--- OUTSIDE RECORDS SUMMARY | 2023-05-14 06:43 | External Medical Summary | Summary of Care ---
Author Name Unknown Organization [facility] Address [address] [facility] [place] [address] Phone [phone] Care Team Providers Care Insole Presser Name Role Phone Toby Paz MD Primary Care Provider +1- [phone] Reason for Visit * Reason Onset Date Comments Advice 12/16/2022 Encounter Details Date Type Department Care Team Description 12/16/2022 Telephone Orthopaedics, [facility] [place], Andriy [address] [place] [address] Jayson Short, DO [address] [facility] [place] [address] Advice Allergies Active Allergy Reactions Severity Noted Date Comments Other Allergy (See Comments) Anaphylaxis High 2018 Bee stings- swelling documented as of this encounter (statuses as of 12/19/2022) Medications Medication Sig Dispensed Refills Start Date [...] as of this encounter (statuses as of 12/19/2022) Active Problems Problem Noted Date AAA (abdominal [...] as of this encounter (statuses as of 12/19/2022) Resolved Problems Problem Noted Date Resolved Date Facial swelling 06/09/2017 08/07/2019 Urticaria 06/09/2017 08/07/2019 Intestinal obstruction 05/09/2012 7 CLASSICAL MIGRAINE WITHOU MENTION OF INTRACTABLE MIGRAINE 11/29/2001 08/07/2019 Undiagnosed cardiac murmurs 11/29/200102/03 Overview: Not [place] on 11/29/01 documented as of this encounter (statuses as of 12/19/2022) Immunizations Name Administration Dates Next Due HEP A - Hepatitis A (Adult > 18 yrs) 06/06/2020 Pneumococcal Conjugate Vacci ne, 20-valent ([id number]) 06/24/2022 Seasonal Influenza Virus Vac cine, Unspecified [...] encounter Miscellaneous Notes * Telephone Encounter - Juanita Rossi LPN - 12/19/2022 3:58 PM EDT Patient's left message on VM in regards to surgery, can call back to discuss at [phone] and also [phone]. * Telephone Encounter - Jayson Short DO - 12/16/2022 4:00 PM EDT Attempted to contact Mauro today to discuss recent referral as well as to coordinate additional referral likely outside [facility] at tertiary facility. Phone calls attempted x3. documented in this encounter Plan of Treatment Upcoming Encounters Date Type Specialty Care Team Description 12/27/2022 Office Visit Family Medicine Drea Raya MD [address] [facility] [place] [address] 12/29/2022 Office Visit Gastroenterology Keyanna Gordon CRNP [address] [place] [address] Scheduled Procedures Name Priority Associated Diagnoses Date/Ti [...] documented as of this encounter Care Teams Insole Presser Relationship Specialty Start Date End Date Toby Paz MD [address] [place] [address] PCP - General Family Medicine 11/25/14 documented as of this encounter
--- OUTSIDE RECORDS SUMMARY | 2023-05-14 06:43 | External Medical Summary | Summary of Care ---
Author Name Unknown Organization [facility] Address [address] [facility] [address] Phone [phone] Care Team Providers Care Facilities Flight Check Pilot Name Role Phone Toby Paz MD Primary Care Provider +1- [phone] Encounter Details Date Type Department Care Team Description 11/25/2022 Telephone Orthopaedics [facility] [address] [place] [address] Jayson Short, [address] [place] [address] Allergies Active Allergy Reactions Severity Noted Date Comments Other Allergy (See Comments) Anaphylaxis High 2018 Bee stings- swelling documented as of this encounter (statuses as of 11/29/2022) Medications Medication Sig Dispensed Refills Start Date [...] Pain, Severe. 45 Tablet 0 10/10/2022 Active Hospital, Clinic, or Other Facility Administered Medication Ordered Dose Route Frequency Start Date End Date Status albuterol sulfate (PROVENTIL) (2.5 MG/3ML) 0.083% inhalation solution 2.5 mgIndications:SOB (shortness of breath) 2.5 mg NEBULIZER Q4H PRN 05/10/2018 Act guzman documented as of this encounter (statuses as of 11/29/2022) Active Problems Problem Noted Date AAA (abdominal [...] ischemic heart disease 11/29/2001 Overview: father had KS's in 40's Gastroesophageal reflux disease with eso phagitis documented as of this encounter (statuses as of 11/29/2022) Resolved Problems Problem Noted Date Resolved Date Facial swelling 06/09/2017 08/07/2019 Urticaria 06/09/2017 08/07/2019 Intestinal obstruction 05/09/2012 7 CLASSICAL MIGRAINE WITHOU MENTION OF INTRACTABLE MIGRAINE 11/29/2001 08/07/2019 Undiagnosed cardiac murmurs 11/29/200102/03 Overview: Not [place] on 11/29/01 documented as of this encounter (statuses as of 11/29/2022) Immunizations Name Administration Dates Next Due HEP A - Hepatitis A (Adult > 18 yrs) 06/06/2020 Pneumococcal Conjugate Vacci ne, 20-valent ([id number]) 06/24/2022 Seasonal Influenza Virus Vac cine, Unspecified [...] Miscellaneous Notes * Telephone Encounter - DAISHA Reese - 11/25/2022 9:29 AM EDT I called this patient to advise that per Dr. Short, a referral will be placed for patient to go to [facility]. No answer. Left message for call back. Patient just needs made aware that referral isbeing placed for him to go to [facility]. documented in this encounter Plan of Treatment Upcoming Encounters Date Type Specialty Care Team Description 12/27/2022 Office Visit Family Medicine Drea Raya MD [address] [place], [place] [phone] Scheduled Procedures Name Priority Associated Diagnoses Date/Ti [...] documented as of this encounter Care Teams Facilities Flight Check Pilot Relationship Specialty Start Date End Date Toby Paz MD [address] [place], [place] [id number] PCP - General Family Medicine 11/25/14 documented as of this encounter
--- OUTSIDE RECORDS SUMMARY | 2023-05-14 06:43 | External Medical Summary | Summary of Care ---
Author Name Unknown Organization [facility] Address [address] [place] [address] Phone [phone] Care Team Providers Care Toll Patrolman Name Role Phone Toby Paz MD Primary Care Provider +1- [phone] Reason for Visit * Reason Onset Date Comments Pharmacy Questions 12/08/2022 Encounter Details Date Type Department Care Team Description [facility] [address] [place] [address] Wellington Jain MD [address] [place] [address] Pharmacy Questions Allergies Active Allergy Reactions Severity Noted Date [...] ischemic heart disease 11/29/2001 Overview: father had CO's in 40's Gastroesophageal reflux disease with eso phagitis documented as of this encounter (statuses as of 12/08/2022) Resolved Problems Problem Noted Date Resolved Date Facial swelling 06/09/2017 08/07/2019 Urticaria 06/09/2017 08/07/2019 Intestinal obstruction 05/09/2012 7 CLASSICAL MIGRAINE WITHOU MENTION OF INTRACTABLE MIGRAINE 11/29/2001 08/07/2019 Undiagnosed cardiac murmurs 11/29/200102/03 Overview: Not [place] on 11/29/01 documented as of this encounter (statuses as of 12/08/2022) Immunizations Name Administration Dates Next Due HEP A - Hepatitis A (Adult > 18 yrs) 06/06/2020 Pneumococcal Conjugate Vacci ne, 20-valent ([id number]) 06/24/2022 Seasonal Influenza Virus Vac cine, Unspecified [...] encounter Miscellaneous Notes * Telephone Encounter - Purnima Castrejon LPN - 12/08/2022 2:59 PM EDT Call placed to [facility] in [place], spoke with Tu. Made him aware that we received a call from Laura regarding the dose of the Voltaren gel. Per Brain Hamilton it is to be apply 4 gms [facility] * Telephone Encounter - Brain Oneal PA-C - 12/08/2022 2:50 PM EDT 4 g, four times a day. Please let patient know. Thx * Telephone Encounter - ABEBA Crowley ASSIST - 12/08/2022 2:13 PM EDT Laura calling from [facility] in [place] , the pharmacy received Rx for Diclofenac sodium and would like to know how many grams each application . Please advise [phone] documented in this encounter Plan of Treatment Upcoming Encounters Date Type Specialty Care Team Description 12/27/2022 Office Visit Family Medicine Drea Raya MD [address] [place] [address] Scheduled Procedures Name Priority Associated Diagnoses Date/Ti me COLONOSCOPY FLEXIBLE PROXIMAL DIAGNOSTIC Recall History of colon polyps Health Maintenance Due Date Last Done Comments Hepatitis B (1 of 3 - 3-dose series) 1965 COVID-19 Vaccine (#1) 01/12/1965 Albumin/Creatinine Ratio 1982 Zoster Vaccines (1 of 2) 2014 Depression Screening 03/22/2023 03/22/2022 GFR 10/18/2023 10/17/2022, 04/2 10/2022, [...] documented as of this encounter Care Teams Toll Patrolman Relationship Specialty Start Date End Date Toby Paz MD [address] [place] [address] PCP - General Family Medicine 11/25/14 documented as of this encounter
--- OUTSIDE RECORDS SUMMARY | 2023-05-14 06:44 | External Medical Summary | Summary of Care ---
Author Name Unknown Organization [facility] [address] [facility] [address] Phone [phone] Care Team Providers Care Marine Cargo Specialist Name Role Phone Kiley Singh MD Primary Care Provider +1- [phone] Reason for Visit * Reason Onset Date Comments Advice 11/22/2022 Pls call pt's robles cox ERICK Status Check 11/22/2022 Encounter Details Date Type Department Care Team Description 11/22/2022 Telephone [facility] [address] [place] [address] Kiley Singh MD [address] [place] [address] Advice (Pls call pt's dennis SUAREZ); Statu... Allergies Active Allergy Reactions Severity Noted Date Comments Other Allergy (See Comments) Anaphylaxis High 2018 Bee stings- swelling documented as of this encounter (statuses as of 11/25/2022) Medications Medication Sig Dispensed Refills Start Date [...] the morning. 360 Tablet 0 04/29/2022 Active Pantoprazole Sodium 40 MG Oral Tablet Delayed Release (Protonix)Indication s:Gastroesophageal reflux disease take 1 tablet by mouth twice a day 180 Tablet 1 06/13/2022 Active Gabapentin 100 MG Oral Capsule (Neurontin)Indicatio ns:Complaint of paresthesia take 1 capsule by mouth every morning and AT NOON and BEFORE BEDTIME 90 Capsule 5 06/14/2022 Active Magnesium Oxide 400 (240 Mg) MG Oral Tablet (Mag-Ox) take 1 tablet by mouth IN THE MORNING AND BEFORE BEDTIME 60 Tablet 5 06/14/2022 Active FLUoxetine HCl 10 MG Oral Capsule (PROzac) take 1 capsule by mouth every morning 30 Capsule 3 07/12/2022 Active Lactulose 10 GM/15ML Oral Solution (Constulose)Indicati [...] once daily 90 Tablet 1 07/27/2022 Active Xifaxan 550 MG Oral Tablet (rifAXIMin) take 1 tablet by mouth IN THE MORNING then take 1 tablet by mouth BEFORE BEDTIME 60 Tablet 1 09/29/2022 Active LORazepam 1 MG Oral Tablet (Ativan) 2 tabs by mouth, one hour prior to MRI. 2 Tablet 0 10/06/2022 Active oxyCODONE HCl 5 MG Oral Tablet (Oxy IR)Indications:Hip pain, left,Avascular necrosis of bone of hip, unspecified laterality (HCC) Take 1 Tablet by mouth every 12 hours as needed for Pain, Severe. 45 Tablet 0 10/10/2022 Active Furosemide 40 MG Oral Tablet (Lasix) Take 1 Tablet by mouth in the morning. In the morning.. 0 10/30/2022 Active oxyCODONE HCl 5 MG Oral Tablet (Oxy IR)Indications:Hip pain, left Take 1 Tablet by mouth every 12 hours as needed for Pain, Severe. 15 Tablet 0 11/21/2022 Active Hospital, Clinic, or Other Facility Administered Medication Ordered Dose Route Frequency Start Date End Date Status albuterol sulfate (PROVENTIL) (2.5 MG/3ML) 0.083% inhalation solution 2.5 mgIndications:SOB (shortness of breath) 2.5 mg NEBULIZER Q4H PRN 05/10/2018 Act guzman documented as of this encounter (statuses as of 11/25/2022) Active Problems Problem Noted Date AAA (abdominal [...] as of this encounter (statuses as of 11/25/2022) Resolved Problems Problem Noted Date Resolved Date Facial swelling 06/09/2017 08/07/2019 Urticaria 06/09/2017 08/07/2019 Intestinal obstruction 05/09/2012 7 CLASSICAL MIGRAINE WITHOU MENTION OF INTRACTABLE MIGRAINE 11/29/2001 08/07/2019 Undiagnosed cardiac murmurs 11/29/200102/03 Overview: Not [place] on 11/29/01 documented as of this encounter (statuses as of 11/25/2022) Immunizations Name Administration Dates Next Due HEP A - Hepatitis A (Adult > 18 yrs) 06/06/2020 Pneumococcal Conjugate Vacci ne, 20-valent ([id number]) 06/24/2022 Seasonal Influenza Virus Vac cine, Unspecified [...] moving forward with surgery. Forwarding to Dr Short as well. * Telephone Encounter - Kiley [...] urine sample at the lab, and then pickler helper the 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 Pls f/u w/ her ERICK, as the ortho surgeon will not reschedule surgery until pt has been treated. I do see note by PCP in regard to UA/ ucx, but pt's fiancee states they were told abx would be sentin yesterday? So unsure how to proceed here. Will CC clinic leadership as well for f/u, given that the fiancee is quite upset w/ the situation. * [...] his urine. Caller can be reached at [phone]. Thank you, Estela Ang Photo Producer I [facility] ([facility] (Formerly [...] Family Medicine Drea Raya MD [address] [place] [address] Scheduled Procedures Name Priority Associated Diagnoses Date/Ti [...] significant growth 11/24/2022 3:15 PM EDT LABORATORY [facility] Urine Urine specimen obtained by clean catch procedure / Unknown Non-blood Collection / Unknown 11/23/2022 12:08 PM EDT 11/23/2022 12:08 PM EDT Kiley Singh MD LAB MICRO - GENERA L ORDERABLES LABORATORY [facility] [address] [place] [address] * (ABNORMAL) URINALYSIS, REFLEX TO MICROSCOPIC (11/23/2022 12:08 PM EDT) Color, Urine Yellow Colorless, Light Yellow, Yellow, Dark Yellow 11/24/2022 1:27 AM EDT LAB[facility]ATORY [facility] Clarity, Urine Clear Clear 11/24/2022 1:27 AM EDT LAB[facility]ATORY [facility] Glucose, Urine Negative Negative mg/dL 11/24/2022 1:27 AM EDT LABORATORY C Bilirubin, Urine Negative Negative 11/24/2022 1:27 AM EDT LABORATORY C Ketone, Urine Negative Negative mg/dL 11/24/2022 1:27 AM EDT LABORATORY [facility] Specific [place], Urine 1.026 1.003 - 1.030 11/24/2022 1:27 AM EDT LABORATORY C Blood, Urine Small(A) Negative 11/24/2022 1:27 AM EDT LAB[facility] pH, Urine 6.0 5.0 - 7.5 Units 11/24/2022 1:27 AM EDT [facility] Protein, Urine Trace(A) Negative mg/dL 11/24/2022 1:27 AM EDT LAB[facility] Urobilinogen, Urine 2.0(A) Normal mg/dL 11/24/2022 1:27 AM EDT LAB[facility] Nitrite, Urine Negative Negative 11/24/2022 1:27 AM EDT LAB[facility]AT[facility] Esterase, Urine Negative Negative 11/24/2022 1:27 AM [...] Singh MD LAB URINE ORDERABL ES LABORATORY [facility] [address] [place] [address] documented in this encounter Visit Diagnoses Diagnosis Bacteria in urine- Primary Other nonspecific finding on examination of urine documented in this encounter Additional Health Concerns Infection Onset Date Last Indicated Resolved Time Hepatitis A 08/23/2021 08/23/2021 documented as of this encounter Care Teams Marine Cargo Specialist Relationship Specialty Start Date End Date Kiley Singh MD [facility] [address] [place], [place] [id number] PCP - General Family Medicine 11/25/14 documented as of this encounter
--- OUTSIDE RECORDS SUMMARY | 2023-05-14 06:44 | External Medical Summary | Summary of Care ---
Author Name Unknown Organization [facility] Address [address] [facility] [address] Phone [phone] Care Team Providers Care Manufacturing Engineer Machining Name Role Phone Kiley Singh MD Primary Care Provider +1- [phone] Reason for Visit * Reason Onset Date Comments Advice 11/22/2022 Pls call pt's robles cox ERICK Status Check 11/22/2022 Encounter Details Date Type Department Care Team Description 11/22/2022 Telephone [facility] [address] [place] [address] Kiley Singh MD [address] [place] [address] Advice (Pls call pt's dennis SUAREZ); Statu... Allergies Active Allergy Reactions Severity Noted Date Comments Other Allergy (See Comments) Anaphylaxis High 2018 Bee stings- swelling documented as of this encounter (statuses as of 11/23/2022) Medications Medication Sig Dispensed Refills Start Date [...] as of this encounter (statuses as of 11/23/2022) Active Problems Problem Noted Date AAA (abdominal [...] as of this encounter (statuses as of 11/23/2022) Resolved Problems Problem Noted Date Resolved Date Facial swelling 06/09/2017 08/07/2019 Urticaria 06/09/2017 08/07/2019 Intestinal obstruction 05/09/2012 7 CLASSICAL MIGRAINE WITHOU MENTION OF INTRACTABLE MIGRAINE 11/29/2001 08/07/2019 Undiagnosed cardiac murmurs 11/29/200102/03 Overview: Not [place] on 11/29/01 documented as of this encounter (statuses as of 11/23/2022) Immunizations Name Administration Dates Next Due HEP A - Hepatitis A (Adult > 18 yrs) 06/06/2020 Pneumococcal Conjugate Vacci ne, 20-valent ([id number]) 06/24/2022 Seasonal Influenza Virus Vac cine, Unspecified [...] true 08/27/2019 Sex Assigned at Date Recorded Not on file Job Start Date Occupation Industry Not on [...] urine sample at the lab, and then crop picker the 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 [...] his urine. Caller can be reached at [phone]. Thank you, Estela Ang Director Of Maternity Services I [facility] ([facility]) (Formerly [...] Encounters Date Type Specialty Care Team Description 12/01/2022 Office Visit Orthopedics Jayson Short, [address] [place] [address] 12/27/2022 Office Visit Family Medicine Drea [facility]a [facility] [address] [facility] [address] Pending Results Name Type Priority Associated Diagnoses Date /Time URINALYSIS, REFLEX TO MICROSCOPIC Lab Routine Bacteria in urine 11/23/2022 12:08 PM EDT CULTURE, URINE, QUANTITATIVE Lab Routine Bacteria in urine 11/23/2022 12:08 PM EDT Scheduled Orders Name Type Priority Associated Diagnoses Orde r Schedule URINALYSIS, REFLEX TO MICROSCOPIC Lab Routine Bacteria in urine Expected: 11/22/2022, Expires: 11/23/2023 CULTURE, URINE, QUANTITATIVE Lab Routine Bacteria in urine Expected: 11/22/2022, Expires: 11/23/2023 Scheduled Procedures Name Priority Associated Diagnoses Date/Ti [...] as of this encounter Visit Diagnoses Diagnosis Bacteria in urine- Primary Other nonspecific finding on examination of urine documented in this encounter Additional Health Concerns Infection Onset Date Last Indicated Resolved Time Hepatitis A 08/23/2021 08/23/2021 documented as of this encounter Care Teams Manufacturing Engineer Machining Relationship Specialty Start Date End Date Kiley Singh MD [address] [place] [address] PCP - General Family Medicine 11/25/14 documented as of this encounter
--- OUTSIDE RECORDS SUMMARY | 2023-05-14 06:44 | External Medical Summary | Summary of Care ---
Author Name Unknown Organization [facility] Address [address] [facility] [address] Phone [phone] Care Team Providers Care Workforce Development Vice President Name Role Phone Kiley Singh MD Primary Care Provider +1- [phone] Reason for Visit * Reason Onset Date Comments Advice 11/22/2022 Pls call pt's robles cox ERICK Status Check 11/22/2022 Encounter Details Date Type Department Care Team Description 11/22/2022 Telephone [facility] [address] [place] [address] Kiley Singh MD [address] [place] [address] Advice (Pls call pt's dennis [...] ischemic heart disease 11/29/2001 Overview: father had [place]'s in 40's Gastroesophageal reflux disease with eso phagitis documented as of this encounter (statuses as of 11/23/2022) Resolved Problems Problem Noted Date Resolved Date Facial swelling 06/09/2017 08/07/2019 Urticaria 06/09/2017 08/07/2019 Intestinal obstruction 05/09/2012 7 CLASSICAL MIGRAINE WITHOU MENTION OF INTRACTABLE MIGRAINE 11/29/2001 08/07/2019 Undiagnosed cardiac murmurs 11/29/200102/03 Overview: Not [place] on 11/29/01 documented as of this encounter (statuses as of 11/23/2022) Immunizations Name Administration Dates Next Due HEP A - Hepatitis A (Adult > 18 yrs) 06/06/2020 Pneumococcal Conjugate Vacci ne, 20-valent ([id number]) 06/24/2022 Seasonal Influenza Virus Vac cine, Unspecified [...] Passive Smoke Exposure: Never Smokeless Tobacco: Never Comments:sanchez smokes Alcohol Use Standard Drinks/Week Comments Not [...] encounter Miscellaneous Notes * Telephone Encounter - Tara MikeSebastien, DAISHA - 11/23/2022 8:18 AM EDT Dennis is [...] urine sample at the lab, and then corn picker the 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 [...] his urine. Caller can be reached at [phone]. Thank you, Estela Ang Traveling Nurse I [facility] ([facility]) (Formerly [...] Description 12/01/2022 Office Visit Orthopedics Jayson Short, DO [address] [place] [address] 12/27/2022 Office Visit Family Medicine Drea Raya [facility] [address] [facility] [id number] Scheduled Orders Name Type Priority Associated Diagnoses [...] documented as of this encounter Care Teams Workforce Development Vice President Relationship Specialty Start Date End Date Kiley Singh MD [address] [place] [address] PCP - General Family Medicine 11/25/14 documented as of this encounter
--- OUTSIDE RECORDS SUMMARY | 2023-05-14 06:44 | External Medical Summary ---
Author Name Unknown Address Unknown Organization [id number]:[facility] [place] [place] [address] [place] [id number] Laboratory Report Ordering Provider Test Date Status FRANCISCO CAO 11/23/2022 12:08:10 Final Observation Date Value Abnormality Reference (Units) Status Bacteria identified in Specimen by Culture 11/23/2022 12:08:10 No significant growth Final Test: Culture, Urine, Quanti tative
Specimen Source: Urine, Clean Catch
Specimen Type: Urine
Specimen Date: 11/23/2022 12:08 PM
Result Date: 11/24/2022 3:15 PM
Result Status: Final result
Resulting Lab: [facility]
[address]
[place] [address]

CULTURE

No significant growth

null Performing Location [facility] [place] [address] [facility] [address]
--- OUTSIDE RECORDS SUMMARY | 2023-05-14 06:44 | External Medical Summary ---
Author Name Unknown Address Unknown Organization [id number][place] [place] [address] [facility] [place] [address] Laboratory Report Ordering Provider Test Date Status CRISTINA CAONALLELY 11/23/2022 12:08:10 Final Observation Date Value Abnormality Reference (Units ) Status Color of Urine by Auto 11/23/2022 12:08:10 Yellow Colorless, Light Yellow, Yellow, Dark Yellow Final Clarity, Urine 11/23/2022 12:08:10 Clear Clear Final Glucose [Mass/volume] in Urine by Automated test strip 11/23/2022 12:08:10 Negative Negative (mg/dL) Final Bilirubin.total [Presence] in Urine by Automated test strip 11/23/2022 12:08:10 Negative Negative Final Ketones [Mass/volume] in Urine by Automated test strip 11/23/2022 12:08:10 Negative Negative (mg/dL) Final Specific gravity, Urine 11/23/2022 12:08:10 1.026 1.003-1.030 Final Hemoglobin [Presence] in Urine by Automated test strip 11/23/2022 12:08:10 Small Abnormal Negative Final pH, Urine 11/23/2022 12:08:10 6.0 5.0-7.5 (Units) Final Protein [Mass/volume] in Urine by Automated test strip 11/23/2022 12:08:10 Trace Abnormal Negative (mg/dL) Final Urobilinogen [Mass/volume] in Urine by Automated test strip 11/23/2022 12:08:10 2.0 Abnormal Normal (mg/dL) Final Nitrite [Presence] in Urine by Automated test strip 11/23/2022 12:08:10 Negative Negative Final Leukocyte esterase [Presence] in Urine by Automated test strip 11/23/2022 12:08:10 Negative Negative Final RBC, Urine 11/23/2022 12:08:10 3-5 Abnormal 0-2 (/HPF) Final WBC, Urine 11/23/2022 12:08:10 3-5 Abnormal 0-2 (/HPF) Final Bacteria [#/area] in Urine sediment by Microscopy high power field 11/23/2022 12:08:10 0-25 0-25 (/HPF) Final Hyaline casts, Urine 11/23/2022 12:08:10 1-4 Abnormal None (/LPF) Final Performing Location [facility] [place] [address] [facility] [address]
--- OUTSIDE RECORDS SUMMARY | 2023-05-14 06:44 | External Medical Summary | Summary of Care ---
Author Name Unknown Organization [facility] Address [address] [place] [facility] [place] [place] [address] Phone [phone] Care Team Providers Care Timber Sizer Operator Name Role Phone Toby Paz MD Primary Care Provider +1- [phone] Reason for Visit * Auth/Cert Specialty Diagnoses / Procedures Referred By Pj t Referred To Contact Diagnoses Hip osteoarthritis Hip osteoarthritis [M16.9] Procedures TOTAL HIP REPLACEMENT & PROSTHESIS ROBOTIC ARTHROPLASTY TOTAL HIP Referral ID Status Reason Start Date Expiration Date Visits Re quested Visits Authorized [id number] Encounter Details Date Type Department Care Team Description 11/21/2022 Hospital Encounter OR [facility], Operating Room, [facility] - 4th Floor [address] [facility] [place] [address] Jayson Short, DO [address] [facility] [place] [address] Allergies Active Allergy Reactions Severity Noted Date Comments Other Allergy (See Comments) Anaphylaxis High 2018 Bee stings- swelling documented as of this encounter (statuses as of 11/22/2022) Medications Medication Sig Dispensed Refills Start Date [...] the morning. 360 Tablet 0 3 Active Pantoprazole Sodium 40 MG Oral Tablet Delayed Release (Protonix)Indica tions:Gastroesop hageal reflux disease take 1 tablet by mouth twice a day 180 Tablet 1 3 Active Gabapentin 100 MG Oral Capsule (Neurontin)Indic ations:Complaint of paresthesia take 1 capsule by mouth every morning and AT NOON and BEFORE BEDTIME 90 Capsule 5 3 Active Magnesium Oxide 400 (240 Mg) MG Oral Tablet (Mag-Ox) take 1 tablet by mouth IN THE MORNING AND BEFORE BEDTIME 60 Tablet 5 3 Active FLUoxetine HCl 10 MG Oral Capsule (PROzac) take 1 capsule by mouth every morning 30 Capsule 3 3 Active Lactulose 10 GM/15ML Oral Solution (Constulose)Kaylin cations:Hyperamm onemia (HCC) Take 30 mL by mouth in the morning and 30 mL at noon and 30 mL in the evening and 30 mL before bedtime. 946 mL 5 3 Active diazePAM 5 MG Oral Tablet (Valium) One tab 1 hour prior to liver MRI (scheduled for October 2022) 1 Tablet 0 3 Active Atorvastatin Calcium 20 MG Oral Tablet (Lipitor)Indicat ions:Dyslipidemi a take 1 tablet by mouth once daily 90 Tablet 1 3 Active Xifaxan 550 MG Oral Tablet (rifAXIMin) take 1 tablet by mouth IN THE MORNING then take 1 tablet by mouth BEFORE BEDTIME 60 Tablet 1 3 Active LORazepam 1 MG Oral Tablet (Ativan) 2 tabs by mouth, one hour prior to MRI. 2 Tablet 0 3 Active oxyCODONE HCl 5 MG Oral Tablet (Oxy IR)Indications:H ip pain, left,Avascular necrosis of bone of hip, unspecified laterality (HCC) Take 1 Tablet by mouth every 12 hours as needed for Pain, Severe. 45 Tablet 0 3 Active Furosemide 40 MG Oral Tablet (Lasix) Take 1 Tablet by mouth in the morning. In the morning.. 0 3 Active Magnesium Oxide 400 MG Oral Tablet Take by mouth 1 Tablet in the morning AND 1 Tablet before bedtime. 60 Tablet 5 2 11/22/19 23 Discontinued Lactulose 10 GM/15ML Oral Solution (Constulose)Kaylin cations:Hyperamm onemia (HCC),Chronic alcohol abuse Take by mouth 30 mL in the morning AND 30 mL at noon AND 30 mL in the evening AND 30 mL before bedtime. 3600 mL 12 2 11/22/19 23 Discontinued(Med ication List Clean Up) Furosemide 20 MG Oral Tablet (Lasix) Take 1 Tablet by mouth in the morning. 30 Tablet 11 3 11/22/19 23 Discontinued(Med ication/Dose Changed) Sucralfate 1 GM/10ML Oral Suspension (Carafate) Take 10 mL by mouth in the morning and 10 mL before bedtime. Ok to substitute capsules and create slurry if necessary. 414 mL 2 3 11/22/19 23 Discontinued documented as of this encounter (statuses as of 11/22/2022) Active Problems Problem Noted Date AAA (abdominal [...] as of this encounter (statuses as of 11/22/2022) Resolved Problems Problem Noted Date Resolved Date Facial swelling 06/09/2017 08/07/2019 Urticaria 06/09/2017 08/07/2019 Intestinal obstruction 05/09/2012 7 CLASSICAL MIGRAINE WITHOU MENTION OF INTRACTABLE MIGRAINE 11/29/2001 08/07/2019 Undiagnosed cardiac murmurs 11/29/200102/03 Overview: Not [place] on 11/29/01 documented as of this encounter (statuses as of 11/22/2022) Immunizations Name Administration Dates Next Due HEP A - Hepatitis A (Adult > 18 yrs) 06/06/2020 Pneumococcal Conjugate Vacci ne, 20-valent ([id number]) 06/24/2022 Seasonal Influenza Virus Vac cine, Unspecified [...] Sign Reading Time Taken Comments Blood Pressure 125/71 11/21/2022 9:03 AM EDT Pulse 73 11/21/2022 9:03 AM EDT Temperature 36.5 C (97.7 F) 11/21/2022 9:03 AM ED T Respiratory Rate 18 11/21/2022 9:03 AM EDT Oxygen Saturation 99% 11/21/2022 9:03 AM EDT Inhaled Oxygen Concentration - - Weight 83.5 kg (184 lb) 11/21/2022 9:03 AM EDT Height 175.3 cm (5' 9") 11/21/2022 9:03 AM EDT Body Mass Index 27.17 11/21/2022 9:03 AM EDT documented in this encounter Functional Status Functional Status Response Date of Assess ment Does this person have seriou s difficulty walking or climbing stairs? Yes 08/23/2021 documented as of this encounter Progress Notes * Jayson Short, DO - 11/21/2022 10:49 AM EDT ORTHOPAEDICS PROGRESS NOTE [facility] [address] Name: Mauro Liu Location: [facility]/OR Date: 11/21/2022 Time: 10:49 AM During preoperative evaluation today, patient appeared somewhat confused and was only oriented to person. He was not aware that he was in [place]. Family was present at the bedside. Family attributes this to lack of sleep being without his pain medication. Family feels as though he is in his normal mental state. Discussed with anesthesia, patient is not a candidate for spinal anesthesia due to coags and thrombocytopenia. Anesthesia also concerned regarding liver function and UA indicating bacteria. General anesthesia would place the patient at risk for increased postoperative complication as it relates to his mentation/confusion and therefore pose safety risk as it pertains to postoperative restrictions/protocols following hip replacement. This is in addition to his higher risk for surgery given his medical comorbidities previously outlined. After a lengthy discussion with the family and patient, we will move to cancel the procedure today.Patient did not appear to be completely grasp the understanding of the potential postoperative issues and concerns regarding safety. Anesthesia recommended further optimization prior to rescheduling. Patient may also benefit from having his procedure performed at a tertiary center given his medical comorbidities. Family requested refill of his pain medication. We will provide one time refill then obtain refillsfrom his primary care physician. All questions answered to their satisfaction. documented in this encounter Nursing Notes * Carey Millan RN - 11/04/2022 11:43 AM EDT Patient identified by: name/birthdate Person taught: Patient Optime case procedure confirmed with surgical consent Laterality confirmed as Left Surgery date at time of Pre-Surgery Center Encounter: 11/21/2022 What procedure is patient having? Procedure: ROBOTIC ARTHROPLASTY TOTAL HIP ([id number]) In an emergency, is patient willing to accept blood products or blood transfusion? unknown Do you need to place a blood bank order? No Anesthesia consent pool notified? N/A Anesthesia evaluation requested per case documentation? No Preop Evaluation Requested? Yes, follow-up will be documented on Anesthesia note. PCP completed. PATIENT EDUCATION SCREENING Person taught: Patient Motivation Level: Asks Questions and Eager to Learn Language Barrier: No Physical Barrier: N/A METHOD: Lecture-telephone interview Patient Preferred Learning Methods: Lecture-Telephone interview Health History interview completed, questions answered, and the following patient instructions provided via telephone interview: Preoperative bathing instructions General preoperative instructions Medication instructions NPO instructions - If your normal morning routine take atorvastatin, fluoxetine, gabapentin and protonix the morningof surgery. OUTCOME: State / Describe / Explain and Needs Reinforcement documented in this encounter Plan of Treatment Upcoming Encounters Date Type Specialty Care Team Description 12/01/2022 Office Visit Orthopedics Jayson Short DO [address] [place] [address] 12/27/2022 Office Visit Family Medicine Drea Raya MD [address] [facility] [place] [address] Scheduled Procedures Name Priority Associated Diagnoses Date/Ti [...] Not on filedocumented as of this encounter Procedures Procedure Name Priority Date/Time Associated Diagnosis Comments GLUCOSE METER, POINT OF CARE ERICK 11/21/2022 9:23 AM EDT documented in this encounter Results * GLUCOSE METER, POINT OF CARE (11/21/2022 9:23 AM EDT) Glucose Meter 88 70 - 120 mg/dL 11/21/2022 9:26 AM EDT [facility] Blood Whole blood specimen / Unknown 11/21/2022 9:23 AM EDT 11/21/2022 9:26 AM EDT Jayson Short DO LAB POINT OF CARE TEST DOCKED DEVICE UNSOLICITED RESULTS [facility] [address] [place] [address] documented in this encounter Visit Diagnoses Diagnosis Preop examination- Primary Preoperative examination, unspecified documented in this encounter Administered Medications Inactive Administered Medications - up to 3 most recent administrations Medication Order MAR Action Action Date Dose Rate Site Acetaminophen (Tylenol) tab 975 mg 975 mg, Oral, PREOP, First dose on Mon11/21/22 at 0930, Last dose on Mon11/21/22 at 0930, For 1 dose, Maximum 4 g acetaminophen/day. Avoid in patients with severe hepatic impairment or severe active liver disease. Administer 60 minutes prior to OR., Pre-Op Given 11/21/2022 9:11 AM EDT 975 mg celecoxib (CeleBREX) cap 200 mg 200 mg, Oral, PREOP, First dose on Mon11/21/22 at 0930, Last dose on Mon11/21/22 at 0930, For 1 dose, Contraindicated in setting of CABG surgery. Do not use in patients with CrCl < 60, receiving ketorolac, bone fracture. Administer 60 minutes prior to OR., Pre-Op Given 11/21/2022 9:11 AM EDT 200 mg Chlorhexidine Gluconate (Scrub-Stat) 2% external solution External, PREOP, First dose on Mon11/21/22 at 0930, Last dose on Mon11/22/22 at 0600, For 2 doses, Complete chlorhexidine wash of entire body, once the evening prior to surgery and once the morning of surgery prior to transporting patient to the pre-operative area , Pre-Op Given 11/21/2022 9:30 AM EDT isolyte-S pH 7.4 infusion Intravenous, at 75 mL/hr, Plasma-LYTE 148, isolyte-S, and isolyte-S pH 7.4 are considered equivalent - including for MAR barcode scanning., CONTINUOUS, Starting on Mon11/21/22 at 0930, Until Mon11/22/22 at 1022, Pre-Op Povidone-Iodine nasal swab 1 Swab Dosing Unit 1 Swab Dosing Unit, Nasal, PREOP, First dose on Mon11/21/22 at 0930, Last dose on Mon11/21/22 at 0930, For 1 dose, Tilt the bottle slightly, dip one swab into solution and stir vigorously for 10 seconds. Withdraw the swab slowly to avoid wiping solution off during removal. Insert swab comfortably into one nostril and rotate for 15 seconds, covering all surfaces. Then focus on the inside tip of nostril and rotate for an additional 15 seconds. Using a new swab, Repeat above steps in the other nostril (Swab 2). Repeat the application in both nostrils using a fresh swab each times (Swab 3 and 4)., Pre-Op Given 11/21/2022 9:30 AM EDT 1 Swab Dosing Unit Pregabalin (Lyrica) cap 150 mg 150 mg, Oral, PREOP, First dose on Mon11/21/22 at 0930, Last dose on Mon11/21/22 at 0930, For 1 dose, Reduce dose as below for CrCl Level: CrCl less than 30 ml/min = 50 mg preop CrCl 30 - 60 ml/min = 150 mg preop CrCl greater than 60 ml/min = 300 mg preop Do not use with gabapentin. Administer 60 minutes prior to OR., Pre-Op Given 11/21/2022 9:11 AM EDT 150 mg traMADol ER (Ultram ER) tab 200 mg 200 mg, Oral, PREOP, First dose on Mon11/21/22 at 0930, Last dose on Mon11/21/22 at 0930, For 1 dose, Administer 60 minutes prior to OR, Pre-Op Given 11/21/2022 9:11 AM EDT 200 mg documented in this encounter Active and Recently Administered Medications Times are shown in EDT. Scheduled Medication Order 11/19/2022 11/20/2022 11/21/2022 Acetaminophen (Tylenol) tab 975 mg (COMPLETED) 975 mg, Oral, PREOP, First dose on Mon11/21/22 at 0930, Last dose on Mon11/21/22 at 0930, For 1 dose, Maximum 4 g acetaminophen/day. Avoid in patients with severe hepatic impairment or severe active liver disease. Administer 60 minutes prior to OR., Pre-Op 0911 (Given - Provid er: Gabriela Molina RN) ceFAZolin in dextrose (Ancef) ivpb 2 g 2 g, IV Piggyback, PREOP, 1 dose, First dose on Mon11/21/22 at 0930, Administer 60 minutes prior to skin incision, Pre-Op 929 (Due) celecoxib (CeleBREX) cap 200 mg (COMPLETED) 200 mg, Oral, PREOP, First dose on Mon11/21/22 at 0930, Last dose on Mon11/21/22 at 0930, For 1 dose, Contraindicated in setting of CABG surgery. Do not use in patients with CrCl < 60, receiving ketorolac, bone fracture. Administer 60 minutes prior to OR., Pre-Op 910 (Given - Provid er: Gabriela Molina RN) Chlorhexidine Gluconate (Scrub-Stat) 2% external solution External, PREOP, First dose on Mon11/21/22 at 0930, Last dose on Mon11/22/22 at 0600, For 2 doses, Complete chlorhexidine wash of entire body, once the evening prior to surgery and once the morning of surgery prior to transporting patient to the pre-operative area , Pre-Op 929 (Given - Provid er: Gabriela Molina RN) Povidone-Iodine nasal swab 1 Swab Dosing Unit (COMPLETED) 1 Swab Dosing Unit, Nasal, PREOP, First dose on Mon11/21/22 at 0930, Last dose on Mon11/21/22 at 0930, For 1 dose, Tilt the bottle slightly, dip one swab into solution and stir vigorously for 10 seconds. Withdraw the swab slowly to avoid wiping solution off during removal. Insert swab comfortably into one nostril and rotate for 15 seconds, covering all surfaces. Then focus on the inside tip of nostril and rotate for an additional 15 seconds. Using a new swab, Repeat above steps in the other nostril (Swab 2). Repeat the application in both nostrils using a fresh swab each times (Swab 3 and 4)., Pre-Op 929 (Given - Provid er: Gabriela Molina RN) Pregabalin (Lyrica) cap 150 mg (COMPLETED) 150 mg, Oral, PREOP, First dose on Mon11/21/22 at 0930, Last dose on Mon11/21/22 at 0930, For 1 dose, Reduce dose as below for CrCl Level: CrCl less than 30 ml/min = 50 mg preop CrCl 30 - 60 ml/min = 150 mg preop CrCl greater than 60 ml/min = 300 mg preop Do not use with gabapentin. Administer 60 minutes prior to OR., Pre-Op 0911 (Given - Provid er: Gabriela Molina, RN) traMADol ER (Ultram ER) tab 200 mg (COMPLETED) 200 mg, Oral, PREOP, First dose on Mon11/21/22 at 0930, Last dose on Mon11/21/22 at 0930, For 1 dose, Administer 60 minutes prior to OR, Pre-Op 0911 (Given - Provid er: Gabriela Molina RN) Continuous Medication Order 11/19/2022 11/20/2022 11/21/2022 isolyte-S pH 7.4 infusion Intravenous, at 75 mL/hr, Plasma-LYTE 148, isolyte-S, and isolyte-S pH 7.4 are considered equivalent - including for MAR barcode scanning., CONTINUOUS, Starting on Mon11/21/22 at 0930, Until Mon11/22/22 at 1022, Pre-Op 0930 (Due) documented in this encounter Additional Health Concerns Infection Onset Date Last Indicated Resolved Time Hepatitis A 08/23/2021 08/23/2021 documented as of this encounter Care Teams Timber Sizer Operator Relationship Specialty Start Date End Date Toby Paz MD [address] [place] [address] PCP - General Family Medicine 11/25/14 documented as of this encounter
--- OUTSIDE RECORDS SUMMARY | 2023-05-14 06:44 | External Medical Summary | Summary of Care ---
Author Name Unknown Organization [facility] Address [address] [facility] [address] Phone [phone] Care Team Providers Care Hemodialysis Charge Nurse Name Role Phone Kiley Singh MD Primary Care Provider +1- [phone] Reason for Visit * Reason Onset Date Comments Advice 11/22/2022 Pls call pt's robles cox ERICK Status Check 11/22/2022 Encounter Details Date Type Department Care Team Description 11/22/2022 Telephone [facility] [address] [place] [address] Kiley Singh MD [address] [place] [address] Advice (Pls call pt's dennis [...] ischemic heart disease 11/29/2001 Overview: father had NE's in 40's Gastroesophageal reflux disease with eso phagitis documented as of this encounter (statuses as of 11/23/2022) Resolved Problems Problem Noted Date Resolved Date Facial swelling 06/09/2017 08/07/2019 Urticaria 06/09/2017 08/07/2019 Intestinal obstruction 05/09/2012 7 CLASSICAL MIGRAINE WITHOU MENTION OF INTRACTABLE MIGRAINE 11/29/2001 08/07/2019 Undiagnosed cardiac murmurs 11/29/200102/03 Overview: Not [place] on 11/29/01 documented as of this encounter (statuses as of 11/23/2022) Immunizations Name Administration Dates Next Due HEP A - Hepatitis A (Adult > 18 yrs) 06/06/2020 Pneumococcal Conjugate Vacci ne, 20-valent ([id number]) 06/24/2022 Seasonal Influenza Virus Vac cine, Unspecified [...] urine sample at the lab, and 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 [...] his urine. Caller can be reached at [phone]. Thank you, Estela Ang Perfume Maker I [facility] ([facility]) (Formerly [...] Visit Orthopedics Jayson Short, DO [address] [place] [address] 12/27/2022 Office Visit Family Medicine Drea Raya MD [address] [place] [address] Pending Results Name Type Priority Associated Diagnoses [...] documented as of this encounter Care Teams Hemodialysis Charge Nurse Relationship Specialty Start Date End Date Kiley Singh MD [address], [place] [address] PCP - General Family Medicine 11/25/14 documented as of this encounter
--- OUTSIDE RECORDS SUMMARY | 2023-05-14 06:44 | External Medical Summary | Summary of Care ---
Author Name Unknown Organization [facility] Address [address] [facility] [address] Phone [phone] Care Team Providers Care Technical Service Rep Name Role Phone Toby Paz MD Primary Care Provider +1- [phone] Reason for Visit * Reason Comments eRx-Medication Refill Encounter Details Date Type Department Care Team Description 11/26/2022 Refill Gastroenterology, [facility] [address] [place] [address] Keyanna Gordon CRNP [address] [place] [address] Allergies Active Allergy Reactions Severity Noted Date [...] 06/13/2022 Active Gabapentin 100 MG Oral Capsule (Neurontin)Indica [...] Pain, Severe. 15 Tablet 0 11/21/2022 Active FLUoxetine HCl 10 MG Oral Capsule (PROzac) take 1 capsule by mouth every morning 30 Capsule 3 11/28/2022 Active Xifaxan 550 MG Oral Tablet (rifAXIMin) take 1 tablet by mouth IN THE MORNING then take 1 tablet by mouth BEFORE BEDTIME 60 Tablet 1 11/28/2022 Active Xifaxan 550 MG Oral Tablet (rifAXIMin) take 1 tablet by mouth IN THE MORNING then take 1 tablet by mouth BEFORE BEDTIME 60 Tablet 1 09/29/2022 3 Discontinued Hospital, Clinic, or Other Facility [...] ischemic heart disease 11/29/2001 Overview: father had PR's in 40's Gastroesophageal reflux disease with eso phagitis documented as of this encounter (statuses as of 11/28/2022) Resolved Problems Problem Noted Date Resolved Date Facial swelling 06/09/2017 08/07/2019 Urticaria 06/09/2017 08/07/2019 Intestinal obstruction 05/09/2012 7 CLASSICAL MIGRAINE WITHOU MENTION OF INTRACTABLE MIGRAINE 11/29/2001 08/07/2019 Undiagnosed cardiac murmurs 11/29/200102/03 Overview: Not [place] on 11/29/01 documented as of this encounter (statuses as of 11/28/2022) Immunizations Name Administration Dates Next Due HEP A - Hepatitis A (Adult > 18 yrs) 06/06/2020 Pneumococcal Conjugate Vacci ne, 20-valent ([id number]) 06/24/2022 Seasonal Influenza Virus Vac cine, Unspecified [...] encounter Miscellaneous Notes * Telephone Encounter - YOGESH Cabello - 11/28/2022 11:10 AM EDT Signed Prescriptions: Disp Refills Xifaxan 550 MG Oral Tablet (rifAXIMin) 60 Tab*1 Sig: take 1 tablet by mouth IN THE MORNING then take 1 tablet by mouth BEFORE BEDTIME Authorizing Provider: VIOLETTE GRAY * Telephone Encounter - Russ Palacios, [facility] - 11/28/2022 10:51 AM EDT Pending Prescriptions: Disp Refills Xifaxan 550 MG Oral Tablet [Pharmacy Med N*60 Tab*1 Sig: take 1 tablet by mouth IN THE MORNING then take 1 tablet by mouth BEFORE BEDTIME * Telephone Encounter - Russ Palacios, [facility] - 11/28/2022 10:50 AM EDT Refill pharmacists currently not authorized to approve refills for this class of medication per refill protocol. Please approve if appropriate. Pending Prescriptions: Disp Refills Xifaxan 550 MG Oral Tablet [Pharmacy Med N*60 Tab*1 Sig: take 1 tablet by mouth IN THE MORNING then take 1 tablet by mouth BEFORE BEDTIME 07/19/2022 (in office), Visit date not found (telemedicine) Visit date not found If no future appointments scheduled, and last appointment is greater than a year ago, please schedule patient for a follow-up appointment Last date the medication was ordered: 09/28/2022 Pharmacy: [id number] Is this request for a controlled substance? no Patient Phone Numbers [facility] [phone] Labs: Lab Results Component Value Date/Time CREAT 1.0 10/17/2022 02:53 PM CREAT 0.8 04/16/2020 11:06 AM POTASSIUM 4.1 10/17/2022 02:53 PM POTASSIUM 3.8 02/24/2020 12:06 PM TSH 1.33 07/01/2022 01:56 PM TSH 0.73 06/21/2018 03:01 PM LDLCALC 78 08/23/2021 01:58 PM LDLCALC 78 02/24/2020 12:06 PM LDLDIRECT NOT APPLICABLE 02/24/2020 12:06 PM ALT 44 10/17/2022 02:53 PM ALT 65 (H) 02/24/2020 12:06 PM HGBA1C 5.0 11/03/2022 08:55 AM Thank You, Russ Palacios, Pharm-D Clinical Pharmacist Telepharmacy 11/28/2022, 10:50 AM documented in this encounter Plan of Treatment Upcoming Encounters Date Type Specialty Care Team Description 12/27/2022 Office Visit Family Medicine Drea Raya MD [address] [place] [address] Scheduled Procedures Name Priority Associated [...] documented as of this encounter Care Teams Technical Service Rep Relationship Specialty Start Date End Date Toby Paz MD [address] [place], [place] [phone] PCP - General Family Medicine 11/25/14 documented as of this encounter
--- OUTSIDE RECORDS SUMMARY | 2023-05-14 06:44 | External Medical Summary | Summary of Care ---
Author Name Unknown Organization [facility] Address [address] [facility] [address] Phone [phone] Care Team Providers Care Sprinkler Irrigation Equipment Mechanic Name Role Phone Kiley Singh MD Primary Care Provider +1- [phone] Reason for Visit * Reason Onset Date Comments Advice 11/22/2022 Pls call pt's robles cox ERICK Status Check 11/22/2022 Encounter Details Date Type Department Care Team Description 11/22/[address] [facility] [address] [place] [address] Kiley Singh MD [address] [place] [address] Advice (Pls call pt's dennis [...] ischemic heart disease 11/29/2001 Overview: father had [place]'s in 40's Gastroesophageal reflux disease with eso phagitis documented as of this encounter (statuses as of 11/23/2022) Resolved Problems Problem Noted Date Resolved Date Facial swelling 06/09/2017 08/07/2019 Urticaria 06/09/2017 08/07/2019 Intestinal obstruction 05/09/2012 7 CLASSICAL MIGRAINE WITHOU MENTION OF INTRACTABLE MIGRAINE 11/29/2001 08/07/2019 Undiagnosed cardiac murmurs 11/29/200102/03 Overview: Not [place] on 11/29/01 documented as of this encounter (statuses as of 11/23/2022) Immunizations Name Administration Dates Next Due HEP A - Hepatitis A (Adult > 18 yrs) 06/06/2020 Pneumococcal Conjugate Vacci ne, 20-valent ([id number]) 06/24/2022 Seasonal Influenza Virus Vac cine, Unspecified [...] urine sample at the lab, and then milk 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 Pls [...] the situation. * Addendum Note - Kiley Sinhg MD - 11/22/2022 5:18 PM EDTAddended by: [...] his urine. Caller can be reached at [phone]. Thank you, Estela Ang Air Export Logistics Manager I [facility] ([facility]) (Formerly [...] Short, DO [address] [place] [address] 12/27/2022 Office Visit Family Medicine Drea Raya MD [address] [facility] [place] [id number] Scheduled Orders Name Type Priority Associated Diagnoses [...] documented as of this encounter Care Teams Sprinkler Irrigation Equipment Mechanic Relationship Specialty Start Date End Date Kiley Singh MD [address] [place] [address] PCP - General Family Medicine 11/25/14 documented as of this encounter
--- OUTSIDE RECORDS SUMMARY | 2023-05-14 06:44 | External Medical Summary | Summary of Care ---
Author Name Unknown Organization [facility] Address [address] [facility] [address] Phone [phone] Care Team Providers Care Senior Administrative Services Officer Name Role Phone Kiley Singh MD Primary Care Provider +1- [phone] Reason for Visit * Reason Onset Date Comments Advice 11/22/2022 Status Check 11/22/2022 Encounter Details Date Type Department Care Team Description 11/22/2022 Telephone [facility] [address] [place] [address] Kiley Singh MD [address] [place] [address] Advice; Status Check Allergies Active Allergy Reactions Severity Noted Date [...] ischemic heart disease 11/29/2001 Overview: father had [place]'s in 40's Gastroesophageal reflux disease with eso phagitis documented as of this encounter (statuses as of 11/22/2022) Resolved Problems Problem Noted Date Resolved Date Facial swelling 06/09/2017 08/07/2019 Urticaria 06/09/2017 08/07/2019 Intestinal obstruction 05/09/2012 7 CLASSICAL MIGRAINE WITHOU MENTION OF INTRACTABLE MIGRAINE 11/29/2001 08/07/2019 Undiagnosed cardiac murmurs 11/29/200102/03 Overview: Not [place] on 11/29/01 documented as of this encounter (statuses as of 11/22/2022) Immunizations Name Administration Dates Next Due HEP A - Hepatitis A (Adult > 18 yrs) 06/06/2020 Pneumococcal Conjugate Vacci ne, 20-valent ([id number]) 06/24/2022 Seasonal Influenza Virus Vac cine, Unspecified [...] encounter Miscellaneous Notes * Addendum Note - Kiley Singh MD [...] his urine. Caller can be reached at [phone]. Thank you, Estela Ang Last Waxer I [facility] ([facility]) (Formerly [facility]) 11/22/2022,1:04 PM * Telephone Encounter - DAISHA Manjarrez - 11/22/2022 11:56 AM EDT Patient's moon called because he was supposed to have [...] Short, DO [address] [place] [address] 12/27/2022 Office Visit Family Medicine Drea Raya MD [address] [place] [address] Scheduled Orders Name Type Priority Associated Diagnoses [...] documented as of this encounter Care Teams Senior Administrative Services Officer Relationship Specialty Start Date End Date Kiley Singh MD [address] [place] [address] PCP - General Family Medicine 11/25/14 documented as of this encounter
--- OUTSIDE RECORDS SUMMARY | 2023-05-14 06:44 | External Medical Summary | Summary of Care ---
Author Name Unknown Organization [facility] Address [address] [facility] [address] Phone [phone] Care Team Providers Care Bevel Mill Operator Name Role Phone Kiley Singh MD Primary Care Provider +1- [phone] Reason for Visit * Reason Onset Date Comments Advice 11/22/2022 Pls call pt's robles cox ERICK Status Check 11/22/2022 Encounter Details Date Type Department Care Team Description 11/22/2022 Telephone [facility] [address] [place] [address] Kiley Singh MD [address] [place] [address] Advice (Pls call pt's dennis [...] 08/07/2019 Undiagnosed cardiac murmurs 11/29/200102/03 Overview: Not [place] on 11/29/01 documented as of this encounter (statuses as of 11/23/2022) Immunizations Name Administration Dates Next Due HEP A - Hepatitis A (Adult > 18 yrs) 06/06/2020 Pneumococcal Conjugate Vacci ne, 20-valent ([id number]) 06/24/2022 Seasonal Influenza Virus Vac cine, Unspecified [...] urine sample at the lab, and then shredder picker the 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 Pls f/u w/ her ERICK, as the ortho surgeon will not reschedule surgery until pt has been treated. * Addendum Note - Kiley Singh MD [...] his urine. Caller can be reached at [phone]. Thank you, Estela Ang Milieu Technician I [facility] ([facility]) (Formerly [...] Orthopedics Jayson Short, DO [address] [email or web address] [place] [address] 12/27/2022 Office Visit Family Medicine Drea Raya MD [address] [place], [place] [phone] Scheduled Orders Name Type Priority Associated Diagnoses [...] and Over 03/22/2023 03/22/2022 GFR 10/18/2023 10/17/2022, 0410/2022, 06/24/2022, [...] documented as of this encounter Care Teams Bevel Mill Operator Relationship Specialty Start Date End Date Kiley Singh MD [address] [place] [address] PCP - General Family Medicine 11/25/14 documented as of this encounter
--- OUTSIDE RECORDS SUMMARY | 2023-05-14 06:44 | External Medical Summary | Summary of Care ---
Author Name Unknown Organization [facility] Address [address] [facility] [address] Phone [phone] Care Team Providers Care Music Box Mechanic Name Role Phone Toby Paz MD Primary Care Provider +1- [phone] Reason for Visit * Reason Comments eRx-Medication Refill Encounter Details Date Type Department Care Team Description 11/27/2022 Refill [facility] [address] [place] [address] Toby Paz MD [address] [place] [address] Allergies Active Allergy Reactions Severity Noted Date [...] Pain, Severe. 45 Tablet 0 10/10/2022 Active oxyCODONE HCl 5 MG Oral Tablet [...] every morning 30 Tablet 2 11/28/2022 Active Furosemide 40 MG Oral Tablet (Lasix) Take 1 Tablet by mouth in the morning. In the morning.. 0 10/30/2022 3 Discontinued Hospital, Clinic, or Other Facility [...] ischemic heart disease 11/29/2001 Overview: father had [place]'s in 40's Gastroesophageal reflux disease with eso phagitis documented as of this encounter (statuses as of 11/28/2022) Resolved Problems Problem Noted Date Resolved Date Facial swelling 06/09/2017 08/07/2019 Urticaria 06/09/2017 08/07/2019 Intestinal obstruction 05/09/2012 7 CLASSICAL MIGRAINE WITHOU MENTION OF INTRACTABLE MIGRAINE 11/29/2001 08/07/2019 Undiagnosed cardiac murmurs 11/29/200102/03 Overview: Not [place] on 11/29/01 documented as of this encounter (statuses as of 11/28/2022) Immunizations Name Administration Dates Next Due HEP A - Hepatitis A (Adult > 18 yrs) 06/06/2020 Pneumococcal Conjugate Vacci ne, 20-valent ([id number]) 06/24/2022 Seasonal Influenza Virus Vac cine, Unspecified [...] encounter Miscellaneous Notes * Telephone Encounter - Willa Lozoya [facility] - 11/28/2022 11:29 AM EDTSigned Prescriptions: Disp Refills Furosemide 40 MG Oral Tablet (Lasix) 30 Tab*2 Sig: take 1 tablet by mouth every morningAuthorizing Provider: BART PERRY User: WILLA LOZOYA------ * Telephone Encounter - Willa Lozoya RPh - 11/28/2022 11:29 AM EDT Provided 90 days supply with 0 refill. Per refill protocol patient should have CMP on file within past year. Lab work was already ordered. Added reminder note to pharmacy. Thanks, Willa Lozoya [facility] Clinical Pharmacist [facility] ([facility]) (Formerly [facility]) [phone] documented in this encounter Plan of Treatment Upcoming Encounters Date Type Specialty Care Team Description 12/27/2022 Office Visit Family Medicine Drea Raya MD [address] [place] [address] Scheduled Procedures Name Priority Associated Diagnoses Date/Ti [...] documented as of this encounter Care Teams Music Box Mechanic Relationship Specialty Start Date End Date Toby Paz MD [address] [place] [address] PCP - General Family Medicine 11/25/14 documented as of this encounter
--- OUTSIDE RECORDS SUMMARY | 2023-05-14 06:44 | External Medical Summary | Summary of Care ---
Author Name Unknown Organization [facility] Address [address] [facility] [address] Phone [phone] Care Team Providers Care Transport Company Manager Name Role Phone Toby Paz MD Primary Care Provider +1- [phone] Reason for Visit * Reason Comments eRx-Medication Refill Encounter Details Date Type Department Care Team Description 11/26/2022 Refill [facility] [address] [place] [address] Toby Paz MD [address] [place] [address] Allergies Active Allergy Reactions Severity [...] every morning 30 Capsule 3 11/28/2022 Active FLUoxetine HCl 10 MG Oral Capsule (PROzac) take 1 capsule by mouth every morning 30 Capsule 3 07/12/2022 3 Discontinued Hospital, Clinic, or Other Facility [...] ischemic heart disease 11/29/2001 Overview: father had [place]'s in 40's Gastroesophageal reflux disease with eso phagitis documented as of this encounter (statuses as of 11/28/2022) Resolved Problems Problem Noted Date Resolved Date Facial swelling 06/09/2017 08/07/2019 Urticaria 06/09/2017 08/07/2019 Intestinal obstruction 05/09/2012 7 CLASSICAL MIGRAINE WITHOU MENTION OF INTRACTABLE MIGRAINE 11/29/2001 08/07/2019 Undiagnosed cardiac murmurs 11/29/200102/03 Overview: Not [place] on 11/29/01 documented as of this encounter (statuses as of 11/28/2022) Immunizations Name Administration Dates Next Due HEP A - Hepatitis A (Adult > 18 yrs) 06/06/2020 Pneumococcal Conjugate Vacci ne, 20-valent ([id number]) 06/24/2022 Seasonal Influenza Virus Vac cine, Unspecified [...] encounter Miscellaneous Notes * Telephone Encounter - Ramesh Kennedy [facility] - 11/28/2022 8:46 AM EDTSigned Prescriptions: Disp Refills FLUoxetine HCl 10 MG Oral Capsule (PROzac) 30 Cap*3 Sig: take 1capsule by mouth every morningAuthorizing Provider: DREA CASTELLANO User: RAMESH KENNEDY documented in this encounter Plan of Treatment Upcoming Encounters Date Type Specialty Care Team Description 12/27/2022 Office Visit Family Medicine Dera Castellano MD [address] [place] [phone] Scheduled Procedures Name Priority Associated Diagnoses Date/Ti [...] as of this encounter Care Teams Transport Company Manager Relationship Specialty Start Date End Date Toby Paz MD [address] [place], [place] [phone] PCP - General Family Medicine 11/25/14 documented as of this encounter
--- OUTSIDE RECORDS SUMMARY | 2023-05-14 06:44 | External Medical Summary | Summary of Care ---
Author Name Unknown Organization [facility] Address [address] [place] [facility] [place] [address] Phone [phone] Care Team Providers Care Glue Bone Crusher Name Role Phone Toby Paz MD Primary Care Provider +1- [phone] Reason for Visit * Reason Onset Date Comments Advice 11/22/2022 Status Check 11/22/2022 Encounter Details Date Type Department Care Team Description 11/22/2022 Telephone [facility] [address] [place] [address] Toby Paz MD [address] [place] [address] Advice; Status Check Allergies Active [...] 08/07/2019 Undiagnosed cardiac murmurs 11/29/200102/03 Overview: Not [place] on 11/29/01 documented as of this encounter (statuses as of 11/22/2022) Immunizations Name Administration Dates Next Due HEP A - Hepatitis A (Adult > 18 yrs) 06/06/2020 Pneumococcal Conjugate Vacci ne, 20-valent ([id number]) 06/24/2022 Seasonal Influenza Virus Vac cine, Unspecified [...] Miscellaneous Notes * Telephone Encounter - DAISHA Londono - [...] his urine. Caller can be reached at [phone]. Thank you, Estela Ang Assistant Press Operator I [facility] ([facility]) (Formerly [...] Short, DO [address] [place] [address] 12/27/2022 Office Visit Family Medicine Drea Raya MD [address] [facility] [place] [phone] Scheduled Procedures Name Priority Associated Diagnoses Date/Ti [...] documented as of this encounter Care Teams Glue Bone Crusher Relationship Specialty Start Date End Date Toby Paz MD [address] [place] [address] PCP - General Family Medicine 11/25/14 documented as of this encounter
--- OUTSIDE RECORDS SUMMARY | 2023-05-14 06:44 | External Medical Summary | Summary of Care ---
Author Name Unknown Organization [facility] Address [address] [place] [facility] [place] [address] Phone [phone] Care Team Providers Care Mental Health Clinician Name Role Phone Toby Paz MD Primary Care Provider +1- [phone] Reason for Visit * Reason Comments Outpatient Testing Encounter Details Date Type Department Care Team Description 11/23/2022 Laboratory Laboratory, [place] [address] [place] [address] [facility] [address] [place] [address] Bacteria in urine Allergies Active Allergy Reactions Severity Noted Date [...] ischemic heart disease 11/29/2001 Overview: father had [place]'s in 40's Gastroesophageal reflux disease with eso phagitis documented as of this encounter (statuses as of 11/23/2022) Resolved Problems Problem Noted Date Resolved Date Facial swelling 06/09/2017 08/07/2019 Urticaria 06/09/2017 08/07/2019 Intestinal obstruction 05/09/2012 7 CLASSICAL MIGRAINE WITHOU MENTION OF INTRACTABLE MIGRAINE 11/29/2001 08/07/2019 Undiagnosed cardiac murmurs 11/29/200102/03 Overview: Not [place] on 11/29/01 documented as of this encounter (statuses as of 11/23/2022) Immunizations Name Administration Dates Next Due HEP A - Hepatitis A (Adult > 18 yrs) 06/06/2020 Pneumococcal Conjugate Vacci ne, 20-valent ([id number]) 06/24/2022 Seasonal Influenza Virus Vac cine, Unspecified [...] Short DO [address] [place] [address] 12/27/2022 Office Visit Family Medicine Drea Raya MD [address] [facility] [place], [place] [phone] Pending Results Name Type Priority Associated Diagnoses Date /Time URINALYSIS, REFLEX TO MICROSCOPIC Lab Routine Bacteria in urine 11/23/2022 12:08 PM EDT CULTURE, URINE, QUANTITATIVE Lab Routine Bacteria in urine 11/23/2022 12:08 PM EDT Scheduled Procedures Name Priority Associated Diagnoses [...] this encounter Visit Diagnoses Diagnosis Bacteria in urine Other nonspecific finding on examination of urine documented in this encounter Additional Health Concerns Infection Onset Date Last Indicated Resolved Time Hepatitis A 08/23/2021 08/23/2021 documented as of this encounter Care Teams Mental Health Clinician Relationship Specialty Start Date End Date Toby Paz MD [address] [place] [address] PCP - General Family Medicine 11/25/14 documented as of this encounter
--- OUTSIDE RECORDS SUMMARY | 2023-05-14 06:44 | External Medical Summary | Summary of Care ---
Author Name Unknown Organization [facility] Address [address] [facility] [address] Phone [phone] Care Team Providers Care Wheel Aligner Name Role Phone Toby Paz MD Primary Care Provider +1- [phone] Reason for Visit * Reason Onset Date Comments Medication Refill 11/26/2022 Encounter Details Date Type Department Care Team Description 11/26/2022 Refill [facility] Orthopaedics [address] [place] [id number] Jayson Lopez, DO [address] [facility] [place] [address] Hip pain, left Allergies Active Allergy Reactions [...] Pain, Severe. 15 Tablet 0 11/28/2022 Active oxyCODONE HCl 5 MG Oral Tablet (Oxy IR)Indications:Hi p pain, left Take 1 Tablet by mouth every 12 hours as needed for Pain, Severe. 15 Tablet 0 11/21/2022 11/26/2022 Discontinue d(Refill) Hospital, Clinic, or Other Facility [...] ischemic heart disease 11/29/2001 Overview: father had MD's in 40's Gastroesophageal reflux disease with eso phagitis documented as of this encounter (statuses as of 11/28/2022) Resolved Problems Problem Noted Date Resolved Date Facial swelling 06/09/2017 08/07/2019 Urticaria 06/09/2017 08/07/2019 Intestinal obstruction 05/09/2012 7 CLASSICAL MIGRAINE WITHOU MENTION OF INTRACTABLE MIGRAINE 11/29/2001 08/07/2019 Undiagnosed cardiac murmurs 11/29/200102/03 Overview: Not [place] on 11/29/01 documented as of this encounter (statuses as of 11/28/2022) Immunizations Name Administration Dates Next Due HEP A - Hepatitis A (Adult > 18 yrs) 06/06/2020 Pneumococcal Conjugate Vacci ne, 20-valent ([id number]) 06/24/2022 Seasonal Influenza Virus Vac cine, Unspecified [...] Miscellaneous Notes * Telephone Encounter - Jayson Lopez DO - 11/28/2022 7:15 PM EDT Signed Prescriptions: Disp Refills oxyCODONE HCl 5 MG Oral Tablet (Oxy IR) 15 Tab*0 Sig: Take 1 Tablet by mouth every 12 hours as needed for Pain, Severe.Authorizing Provider: JAYSON LOPEZ * Telephone Encounter - Jayson Lopez DO - 11/28/2022 7:14 PM EDT I have reviewed the patient's controlled substance dispensing history in the Prescription Drug Monitoring Program in compliance with the [facility] regulations before prescribing a controlled substance. * Telephone Encounter - DAISHA Nice - 11/26/2022 8:07 PM EDTPending Prescriptions: Disp Refills oxyCODONE HCl 5 MG Oral Tablet (Oxy IR) 15 Tab*0 Sig: Take 1 Tablet by mouth every 12 hours as needed for Pain, Severe. documented in this encounter Plan of Treatment Upcoming Encounters Date Type Specialty Care Team Description 12/27/2022 Office Visit Family Medicine Drea Raya MD [address] [place] [address] Scheduled Procedures Name Priority Associated Diagnoses Date/Ti [...] documented as of this encounter Care Teams Wheel Aligner Relationship Specialty Start Date End Date Toby Paz MD [address] [place] [address] PCP - General Family Medicine 11/25/14 documented as of this encounter
--- OUTSIDE RECORDS SUMMARY | 2023-05-14 06:44 | External Medical Summary | Summary of Care ---
Author Name Unknown Organization [facility] Address [address] [facility] [address] Phone [phone] Care Team Providers Care Social Organization Professor Name Role Phone Kiley Singh MD Primary Care Provider +1- [phone] Reason for Visit * Reason Onset Date Comments Advice 11/22/2022 Pls call pt's robles cox ERICK Status Check 11/22/2022 Encounter Details Date Type Department Care Team Description 11/22/[address] [facility] [address] [place] [address] Kiley Singh MD [address] [place] [address] Advice (Pls call pt's dennis [...] 08/07/2019 Undiagnosed cardiac murmurs 11/29/200102/03 Overview: Not [place] on 11/29/01 documented as of this encounter (statuses as of 11/23/2022) Immunizations Name Administration Dates Next Due HEP A - Hepatitis A (Adult > 18 yrs) 06/06/2020 Pneumococcal Conjugate Vacci ne, 20-valent ([id number]) 06/24/2022 Seasonal Influenza Virus Vac cine, Unspecified [...] encounter Miscellaneous Notes * Telephone Encounter - JULIO Nuno - [...] urine sample at the lab, and then belt picker the 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 [...] his urine. Caller can be reached at [phone]. Thank you, Estela Ang Research Mechanic [facility] ([facility]) (Formerly [...] Short, DO [address] [place] [address] 12/27/2022 Office Visit Family Medicine Drea Raya MD [address] [place] [address] [place] [address] Scheduled Orders Name Type Priority Associated Diagnoses [...] documented as of this encounter Care Teams Social Organization Professor Relationship Specialty Start Date End Date Kiley Singh MD [address] [place] [address] PCP - General Family Medicine 11/25/14 documented as of this encounter
--- OUTSIDE RECORDS SUMMARY | 2023-05-14 06:44 | External Medical Summary | Summary of Care ---
Author Name Unknown Organization [facility] Address [address] [facility] [address] Phone [phone] Care Team Providers Care Ruffling Machine Operator Name Role Phone Kiley Singh MD Primary Care Provider +1- [phone] Reason for Visit * Reason Onset Date Comments Advice 11/22/2022 Pls call pt's robles cox ERICK Status Check 11/22/2022 Encounter Details Date Type Department Care Team Description 11/22/2022 Telephone [facility] [address] [place] [address] Kiley Singh MD [address] [place] [address] Advice (Pls call pt's dennis SUAREZ); Statu... Allergies Active Allergy Reactions Severity Noted Date Comments Other Allergy (See Comments) Anaphylaxis High 2018 Bee stings- swelling documented as of this encounter (statuses as of 11/24/2022) Medications Medication Sig Dispensed Refills Start Date [...] as of this encounter (statuses as of 11/24/2022) Active Problems Problem Noted Date AAA (abdominal [...] ischemic heart disease 11/29/2001 Overview: father had [place]'s in 40's Gastroesophageal reflux disease with eso phagitis documented as of this encounter (statuses as of 11/24/2022) Resolved Problems Problem Noted Date Resolved Date Facial swelling 06/09/2017 08/07/2019 Urticaria 06/09/2017 08/07/2019 Intestinal obstruction 05/09/2012 7 CLASSICAL MIGRAINE WITHOU MENTION OF INTRACTABLE MIGRAINE 11/29/2001 08/07/2019 Undiagnosed cardiac murmurs 11/29/200102/03 Overview: Not [place] on 11/29/01 documented as of this encounter (statuses as of 11/24/2022) Immunizations Name Administration Dates Next Due HEP A - Hepatitis A (Adult > 18 yrs) 06/06/2020 Pneumococcal Conjugate Vacci ne, 20-valent ([id number]) 06/24/2022 Seasonal Influenza Virus Vac cine, Unspecified [...] urine sample at the lab, and then slate picker the 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 [...] his urine. Caller can be reached at [phone]. Thank you, Estela Ang Manager Of Financial [facility] ([facility]) (Formerly [...] Short, DO [address] [place] [address] 12/27/2022 Office Visit Family Medicine [facility] [address] [facility] [id number] Scheduled Procedures Name Priority Associated Diagnoses Date/Ti [...] significant growth 11/24/2022 3:15 PM EDT LAB[facility]ATORY [facility] Urine Urine specimen obtained by clean catch procedure / Unknown Non-blood Collection / Unknown 11/23/2022 12:08 PM EDT 11/23/2022 12:08 PM EDT Kiley Singh MD LAB MICRO - GENERA L ORDERABLES LABORATORY [facility] [address] [place] [address] * (ABNORMAL) URINALYSIS, REFLEX TO MICROSCOPIC (11/23/2022 12:08 PM EDT) Color, Urine Yellow Colorless, Light Yellow, Yellow, Dark Yellow 11/24/2022 1:27 AM EDT [facility] Clarity, Urine Clear Clear 11/24/2022 1:27 AM EDT [facility] Glucose, Urine Negative Negative mg/dL 11/24/2022 1:27 AM EDT [facility] Bilirubin, Urine Negative Negative 11/24/2022 1:27 AM EDT [facility] Ketone, Urine Negative Negative mg/dL 11/24/2022 1:27 AM EDT LABORATORY C Specific [place], Urine 1.026 1.003 - 1.030 11/24/2022 1:27 AM EDT [facility] Blood, Urine Small(A) Negative 11/24/2022 1:27 AM [...] URINE ORDERABL ES [facility] [address] [place] [address] documented in this encounter Visit Diagnoses Diagnosis Bacteria in urine- Primary Other nonspecific finding on examination of urine documented in this encounter Additional Health Concerns Infection Onset Date Last Indicated Resolved Time Hepatitis A 08/23/2021 08/23/2021 documented as of this encounter Care Teams Ruffling Machine Operator Relationship Specialty Start Date End Date Kiley Singh MD [address] [place] [address] PCP - General Family Medicine 11/25/14 documented as of this encounter
--- OUTSIDE RECORDS SUMMARY | 2023-05-14 06:45 | External Medical Summary | Summary of Care ---
Author Name Unknown Organization [facility] Address [address] [facility] [address] Phone [phone] Care Team Providers Care Pocketed Spring Machine Operator Name Role Phone Toby Paz MD Primary Care Provider +1- [phone] Reason for Visit * Reason Onset Date Comments Advice 11/22/2022 Status Check 11/22/2022 Encounter Details Date Type Department Care Team Description 11/22/2022 Telephone [facility] [address] [place] [address] Toby Paz MD [address] [place] [address] Advice; Status Check Allergies Active [...] 08/07/2019 Undiagnosed cardiac murmurs 11/29/200102/03 Overview: Not Lane on 11/29/01 documented as of this encounter (statuses as of 11/22/2022) Immunizations Name Administration Dates Next Due HEP A - Hepatitis A (Adult > 18 yrs) 06/06/2020 Pneumococcal Conjugate Vacci ne, 20-valent ([id number]) 06/24/2022 Seasonal Influenza Virus Vac cine, Unspecified [...] his urine. Caller can be reached at [phone]. Thank you, Estela Ang Communications Strategist [facility] ([facility]) (Formerly [...] Short, DO [address] [place] [address] 12/27/2022 Office Visit Family Medicine Drea Raya MD [address] [facility] [place] [id number] Scheduled Procedures Name Priority Associated Diagnoses Date/Ti [...] documented as of this encounter Care Teams Pocketed Spring Machine Operator Relationship Specialty Start Date End Date Toby Paz MD [address] [place] [address] PCP - General Family Medicine 11/25/14 documented as of this encounter
--- OUTSIDE RECORDS SUMMARY | 2023-05-14 06:45 | External Medical Summary | Summary of Care ---
Author Name Unknown Organization [facility] Address [address] [facility] [address] Phone [phone] Care Team Providers Care Package Checker Name Role Phone Toby Paz MD Primary Care Provider +1- [phone] Reason for Visit * Reason Onset Date Comments Surgery 11/15/2022 Encounter Details Date Type Department Care Team Description 11/15/2022 Telephone Orthopaedics [facility] [address] [place] [address] Jayson Short, [address] [place] [address] Surgery Allergies Active Allergy Reactions Severity Noted Date Comments Other Allergy (See Comments) Anaphylaxis High 2018 Bee stings- swelling documented as of this encounter (statuses as of 11/15/2022) Medications Medication Sig Dispensed Refills Start Date End Date Status EpiPen 2-Dave 0.3 MG/0.3ML Injection Solution Auto-injector For a severe reaction: Place orange end against the outer thigh, press firmly, hold in place for 10 seconds and go to the Emergency room. 2 Each 1 07/20/2020 Active Magnesium Oxide 400 MG Oral Tablet Take by mouth 1 Tablet in the morning AND 1 Tablet before bedtime. 60 Tablet 5 11/09/2021 Active Additional Information Patient not taking.Reported on 11/01/2022 Lactulose 10 GM/15ML Oral Solution (Constulose)Indicat ions:Hyperammonemia (HCC),Chronic alcohol abuse Take by mouth 30 mL in the morning AND 30 mL at noon AND 30 mL in the evening AND 30 mL before bedtime. 3600 mL 12 01/24/2022 Active Furosemide 20 MG Oral Tablet (Lasix) Take 1 Tablet by mouth in the morning. 30 Tablet 11 04/29/2022 Active Spironolactone 25 MG Oral Tablet (Aldactone) Take 1 Tablet by mouth in the morning. 360 Tablet 0 04/29/2022 Active Pantoprazole Sodium 40 MG Oral Tablet Delayed Release (Protonix)Indicatio ns:Gastroesophageal reflux disease take 1 tablet by mouth twice a day 180 Tablet 1 06/13/2022 Active Gabapentin 100 MG Oral Capsule (Neurontin)Indicati ons:Complaint of paresthesia take 1 capsule by mouth every morning and AT NOON and BEFORE BEDTIME 90 Capsule 5 06/14/2022 Active Magnesium Oxide 400 (240 Mg) MG Oral Tablet (Mag-Ox) take 1 tablet by mouth IN THE MORNING AND BEFORE BEDTIME 60 Tablet 5 06/14/2022 Active Sucralfate 1 GM/10ML Oral Suspension (Carafate) Take 10 mL by mouth in the morning and 10 mL before bedtime. Ok to substitute capsules and create slurry if necessary. 414 mL 2 07/06/2022 Active Additional Information Patient not taking.Reported on 07/19/2022 FLUoxetine HCl 10 MG Oral Capsule (PROzac) take 1 capsule by mouth every morning 30 Capsule 3 07/12/2022 Active Lactulose 10 GM/15ML Oral Solution (Constulose)Indicat ions:Hyperammonemia (HCC) Take 30 mL by mouth in the morning and 30 mL at noon and 30 mL in the evening and 30 mL before bedtime. 946 mL 5 07/19/2022 Active Additional Information Patient not taking.Reported on 11/04/2022 diazePAM 5 MG Oral Tablet (Valium) One [...] BEFORE BEDTIME 60 Tablet 1 09/29/2022 Active Additional Information Patient not taking.Reported on 11/04/2022 LORazepam 1 MG Oral Tablet (Ativan) 2 [...] as of this encounter (statuses as of 11/15/2022) Active Problems Problem Noted Date AAA (abdominal [...] as of this encounter (statuses as of 11/15/2022) Resolved Problems Problem Noted Date Resolved Date Facial swelling 06/09/2017 08/07/2019 Urticaria 06/09/2017 08/07/2019 Intestinal obstruction 05/09/2012 7 CLASSICAL MIGRAINE WITHOU MENTION OF INTRACTABLE MIGRAINE 11/29/2001 08/07/2019 Undiagnosed cardiac murmurs 11/29/200102/03 Overview: Not [place] on 11/29/01 documented as of this encounter (statuses as of 11/15/2022) Immunizations Name Administration Dates Next Due HEP A - Hepatitis A (Adult > 18 yrs) 06/06/2020 Pneumococcal Conjugate Vacci ne, 20-valent ([id number]) 06/24/2022 Seasonal Influenza Virus Vac cine, Unspecified Formulation 05/04/2021,01/13/2020,12/18/2018,2017,02/03/2017,12/22/2015,01/14/2015 Seasonal Influenza, Quadriva lent, No Preserve, 6 Mons & Above, IM 12/14/2021,05/04/2021,01/13/2020,2018,02/01/2018,02/03/2017 Seasonal Influenza, Quadriva lent, No Preserve, [...] Miscellaneous Notes * Telephone Encounter - Thao Win Tanja - 11/15/2022 12:07 PM EDT Patient called in to say that he is doing good and is ready to have surgery. Please call him to schedule documented in this encounter Plan of Treatment Upcoming Encounters Date Type Specialty Care Team Description 11/21/2022 Hospital Encounter Surgery Jayson Short, DO [address] [place] [address] 11/21/2022 Surgery Surgery Jayson Short, DO [address] [place] [address] ROBOTIC ARTHROPLASTY TOTAL HIP 12/01/2022 Office Visit Orthopedics Jayson Short, [address] [place] [address] 12/27/2022 Office Visit Family Medicine Drea Raya MD [address] [place] [phone] Scheduled Procedures Name Priority Associated Diagnoses Date/Ti me ROBOTIC ARTHROPLASTY TOTAL HIP Hip osteoarthritis 11/21/2022 10:57 AM EDT COLONOSCOPY FLEXIBLE PROXIMAL DIAGNOSTIC Recall History of [...] 06/30/2021, 05/30/2019, Additional history exists Diabetes Screening 11/03/2025 11/03/2022, 0 10/17/2022, 07/28/2022, Additional history exists DTaP,Tdap,and Td Vaccines (2 [...] documented as of this encounter Care Teams Package Checker Relationship Specialty Start Date End Date Toby Paz MD [address] [place] [address] PCP - General Family Medicine 11/25/14 documented as of this encounter
--- OUTSIDE RECORDS SUMMARY | 2023-05-14 06:45 | External Medical Summary | Summary of Care ---
Author Name Unknown Organization [facility] Address [address] [facility] [place] [address] Phone [phone] Care Team Providers Care Recyclable Materials Distributor Name Role Phone Toby Paz MD Primary Care Provider +1- [phone] Encounter Details Date Type Department Care Team Description 11/17/2022 Patient Reported Data Patient Survey Ortho FORCE Allergies Active Allergy Reactions Severity Noted Date Comments Other Allergy (See Comments) Anaphylaxis High 2018 Bee stings- swelling documented as of this encounter (statuses as of 11/17/2022) Medications Medication Sig Dispensed Refills Start Date [...] as of this encounter (statuses as of 11/17/2022) Active Problems Problem Noted Date AAA (abdominal [...] as of this encounter (statuses as of 11/17/2022) Resolved Problems Problem Noted Date Resolved Date Facial swelling 06/09/2017 08/07/2019 Urticaria 06/09/2017 08/07/2019 Intestinal obstruction 05/09/2012 7 CLASSICAL MIGRAINE WITHOU MENTION OF INTRACTABLE MIGRAINE 11/29/2001 08/07/2019 Undiagnosed cardiac murmurs 11/29/200102/03 Overview: Not [place] on 11/29/01 documented as of this encounter (statuses as of 11/17/2022) Immunizations Name Administration Dates Next Due HEP A - Hepatitis A (Adult > 18 yrs) 06/06/2020 Pneumococcal Conjugate Vacci ne, 20-valent ([id number]) 06/24/2022 Seasonal Influenza Virus Vac cine, Unspecified [...] Encounters Date Type Specialty Care Team Description 11/18/2022 Documentation Education Andriy, Total Joint Class [address] [place] [id number] 11/21/2022 Hospital Encounter Surgery Jayson Short, DO [address] [place] [address] 11/21/2022 Surgery Surgery Jayson Short, DO [address] [place] [address] ROBOTIC ARTHROPLASTY TOTAL HIP 12/01/2022 Office Visit Orthopedics Jayson Short, DO [address] [place] [address] 12/27/2022 Office Visit Family Medicine Drea Raya MD [address] [place] [address] Scheduled Procedures Name Priority Associated Diagnoses Date/Ti [...] documented as of this encounter Care Teams Recyclable Materials Distributor Relationship Specialty Start Date End Date Toby Paz MD [address] [place], [place] [phone] PCP - General Family Medicine 11/25/14 documented as of this encounter
--- OUTSIDE RECORDS SUMMARY | 2023-05-14 06:45 | External Medical Summary | Summary of Care ---
Author Name Unknown Organization [facility] Address [address] [facility] [place] [address] Phone [phone] Care Team Providers Care Mounter Sousaphones Name Role Phone Toby Paz MD Primary Care Provider +1- [phone] Reason for Visit * Reason Onset Date Comments Advice 11/22/2022 Status Check 11/22/2022 Encounter Details Date Type Department Care Team Description 11/22/2022 Telephone [facility] [address] [place] [address] Toby Paz MD [address] [place] [address] Advice; Status Check Allergies Active [...] 08/07/2019 Undiagnosed cardiac murmurs 11/29/200102/03 Overview: Not [place] on 11/29/01 documented as of this encounter (statuses as of 11/22/2022) Immunizations Name Administration Dates Next Due HEP A - Hepatitis A (Adult > 18 yrs) 06/06/2020 Pneumococcal Conjugate Vacci ne, 20-valent ([id number]) 06/24/2022 Seasonal Influenza Virus Vac cine, Unspecified [...] encounter Miscellaneous Notes * Telephone Encounter - Meredith Ang CPhT - 11/22/2022 1:04 PM EDT Pt's EC calling to check on status of a medication to be ordered for bacteria in his urine. Caller can be reached at [phone]. Thank you, Estela Ang Crab Steamer [facility] ([facility]) (Formerly [...] Short, DO [address] [place] [address] 12/27/2022 Office Visit Family Medicine Drea Raya MD [address] [facility] [place] [address] Scheduled Procedures Name Priority Associated Diagnoses [...] documented as of this encounter Care Teams Mounter Sousaphones Relationship Specialty Start Date End Date Toby Paz MD [address] [place], [place] [phone] PCP - General Family Medicine 11/25/14 documented as of this encounter
--- OUTSIDE RECORDS SUMMARY | 2023-05-14 06:45 | External Medical Summary | Summary of Care ---
Author Name Unknown Organization [facility] Address [address] [facility] [place] [address] Phone [phone] Care Team Providers Care Revenue Cycle Administrator Name Role Phone Toby Paz MD Primary Care Provider +1- [phone] Reason for Visit * Reason Comments Education Left CECILIO Encounter Details Date Type Department Care Team Description 11/18/2022 Documentation Total Joint Education, [address], Counselor [address] [place] [address] Counselor, Total Joint Class [address] [place] [address] Avascular necrosis of bone of left hip (HCC) [M87.052 (ICD-10-CM)]* Allergies Active Allergy Reactions Severity Noted Date Comments Other Allergy (See Comments) Anaphylaxis High 2018 Bee stings- swelling documented as of this encounter (statuses as of 11/18/2022) Medications Medication Sig Dispensed Refills Start Date [...] as of this encounter (statuses as of 11/18/2022) Active Problems Problem Noted Date AAA (abdominal [...] ischemic heart disease 11/29/2001 Overview: father had [place]'s in 40's Gastroesophageal reflux disease with eso phagitis documented as of this encounter (statuses as of 11/18/2022) Resolved Problems Problem Noted Date Resolved Date Facial swelling 06/09/2017 08/07/2019 Urticaria 06/09/2017 08/07/2019 Intestinal obstruction 05/09/2012 7 CLASSICAL MIGRAINE WITHOU MENTION OF INTRACTABLE MIGRAINE 11/29/2001 08/07/2019 Undiagnosed cardiac murmurs 11/29/200102/03 Overview: Not [place] on 11/29/01 documented as of this encounter (statuses as of 11/18/2022) Immunizations Name Administration Dates Next Due HEP A - Hepatitis A (Adult > 18 yrs) 06/06/2020 Pneumococcal Conjugate Vacci ne, 20-valent ([id number]) 06/24/2022 Seasonal Influenza Virus Vac cine, Unspecified [...] Yes 08/23/2021 documented as of this encounter Nursing Notes * Holly Ngo RN - 11/18/2022 10:39 AM EDT Attended a Joint Class? Yes. He completed the online HOOS and RAPT tools. We completed the pre-op survey today over the phone. Anticipating a Left THR on November 21, [address] Short. Overview of Chlorhexidine Gluconate (CHG) scrub complete? Yes. Reviewed the dates of use and areas to wash. His nasal swab resulted MSSA/MRSA negative. He has supplies and printed instructions. Care Management to formulate discharge plan? Yes. He lives with his fiance in a single -story house. He NEEDS a rolling walker. He has a cane, a raised-height toilet and a walk-in shower with a shower chair. No agency preference. Education provided by: Ortho Nurse Educator Additional education provided by: Other Patient educated on MEND. Patient to consume MEND twice daily one week prior to surgery and two weeks post-operatively. He has supplies and printed instructions. Denies anticoagulant or NSAID use. Mauro Ngo RN, MSN documented in this encounter Plan of Treatment Upcoming Encounters Date Type Specialty Care Team Description 11/21/2022 Hospital Encounter Surgery Jayson Short, DO [address] [place] [address] 11/21/2022 Surgery Surgery Jayson Short, DO [address] [place] [address] ROBOTIC ARTHROPLASTY TOTAL HIP 12/01/2022 Office Visit Orthopedics Jayson Short, DO [address] [place] [address] 12/27/2022 Office Visit Family Medicine Drea Raya MD [address] [place] [address] Scheduled Procedures Name Priority Associated Diagnoses Date/Ti [...] necrosis of bone of left hip (HCC) [M87.052 (ICD-10-CM)]- Primary Hip osteoarthritis Osteoarthrosis, unspecified whether generalized or localized, pelvic region and thigh documented in this encounter Additional Health Concerns Infection Onset Date Last Indicated Resolved Time Hepatitis A 08/23/2021 08/23/2021 documented as of this encounter Care Teams Revenue Cycle Administrator Relationship Specialty Start Date End Date Toby Paz MD [address] [place] [facility] [place] [facility] [place] [address] PCP - General Family Medicine 11/25/14 documented as of this encounter
--- OUTSIDE RECORDS SUMMARY | 2023-05-14 06:45 | External Medical Summary | Summary of Care ---
Author Name Unknown Organization [facility] Address [address] [facility] [place] [address] Phone [phone] Care Team Providers Care Elocution Teacher Name Role Phone Toby Paz MD Primary Care Provider [phone]- [phone] Reason for Visit * Reason Onset Date Comments Medication Refill 11/21/2022 Encounter Details Date Type Department Care Team Description 11/21/2022 Refill [facility] Orthopaedics [address] [place] [id number] Jayson Short, DO [address] [facility] [place] [address] Hip pain, left* Allergies Active Allergy Reactions Severity Noted Date Comments Other Allergy (See Comments) Anaphylaxis High 2018 Bee stings- swelling documented as of this encounter (statuses as of 11/21/2022) Medications Medication Sig Dispensed Refills Start Date End Date Status oxyCODONE HCl 5 MG Oral Tablet (Oxy IR)Indications:Hi p pain, left Take 1 Tablet by mouth every 12 hours as needed for Pain, Severe. 15 Tablet 0 11/21/2022 Active EpiPen 2-Dave 0.3 MG/0.3ML Injection Solution Auto-injector For a severe reaction: Place orange end against the outer thigh, press firmly, hold in place for 10 seconds and go to the Emergency room. 2 Each 1 07/20/2020 Suspended Additional Information Spironolactone 25 MG Oral Tablet (Aldactone) Take 1 Tablet by mouth in the morning. 360 Tablet 0 04/29/2022 Suspended Additional Information Pantoprazole Sodium 40 MG Oral Tablet Delayed Release (Protonix)Indicat ions:Gastroesopha geal reflux disease take 1 tablet by mouth twice a day 180 Tablet 1 06/13/2022 Suspended Additional Information Gabapentin 100 MG Oral Capsule (Neurontin)Indica tions:Complaint of paresthesia take 1 capsule by mouth every morning and AT NOON and BEFORE BEDTIME 90 Capsule 5 06/14/2022 Suspended Additional Information Magnesium Oxide 400 (240 Mg) MG Oral Tablet (Mag-Ox) take 1 tablet by mouth IN THE MORNING AND BEFORE BEDTIME 60 Tablet 5 06/14/2022 Suspended Additional Information FLUoxetine HCl 10 MG Oral Capsule (PROzac) take 1 capsule by mouth every morning 30 Capsule 3 07/12/2022 Suspended Additional Information Lactulose 10 GM/15ML Oral Solution (Constulose)Indic ations:Hyperammon emia (HCC) Take 30 mL by mouth in the morning and 30 mL at noon and 30 mL in the evening and 30 mL before bedtime. 946 mL 5 07/19/2022 Suspended Additional Information diazePAM 5 MG Oral Tablet (Valium) One tab 1 hour prior to liver MRI (scheduled for October 2022) 1 Tablet 0 07/19/2022 Suspended Additional Information Atorvastatin Calcium 20 MG Oral Tablet (Lipitor)Indicati ons:Dyslipidemia take 1 tablet by mouth once daily 90 Tablet 1 07/27/2022 Suspended Additional Information Xifaxan 550 MG Oral Tablet (rifAXIMin) take 1 tablet by mouth IN THE MORNING then take 1 tablet by mouth BEFORE BEDTIME 60 Tablet 1 09/29/2022 Suspended Additional Information LORazepam 1 MG Oral Tablet (Ativan) 2 tabs by mouth, one hour prior to MRI. 2 Tablet 0 10/06/2022 Suspended Additional Information oxyCODONE HCl 5 MG Oral Tablet (Oxy IR)Indications:Hi p pain, left,Avascular necrosis of bone of hip, unspecified laterality (HCC) Take 1 Tablet by mouth every 12 hours as needed for Pain, Severe. 45 Tablet 0 10/10/2022 Suspended Additional Information Furosemide 40 MG Oral Tablet (Lasix) Take 1 Tablet by mouth in the morning. In the morning.. 0 10/30/2022 Suspended documented as of this encounter (statuses as of 11/21/2022) Active Problems Problem Noted Date AAA (abdominal [...] as of this encounter (statuses as of 11/21/2022) Resolved Problems Problem Noted Date Resolved Date Facial swelling 06/09/2017 08/07/2019 Urticaria 06/09/2017 08/07/2019 Intestinal obstruction 05/09/2012 7 CLASSICAL MIGRAINE WITHOU MENTION OF INTRACTABLE MIGRAINE 11/29/2001 08/07/2019 Undiagnosed cardiac murmurs 11/29/200102/03 Overview: Not [place] on 11/29/01 documented as of this encounter (statuses as of 11/21/2022) Immunizations Name Administration Dates Next Due HEP A - Hepatitis A (Adult > 18 yrs) 06/06/2020 Pneumococcal Conjugate Vacci ne, 20-valent ([id number]) 06/24/2022 Seasonal Influenza Virus Vac cine, Unspecified [...] Telephone Encounter - Jayson Short DO - 11/21/2022 11:05 AM EDT I have reviewed the patient's controlled substance dispensing history in the Prescription Drug Monitoring Program in compliance with the [facility] regulations before prescribing a controlled substance. documented in this encounter Plan of Treatment Upcoming Encounters Date Type Specialty Care Team Description 12/01/2022 Office Visit Orthopedics Jayson Short DO [address] [place] [id number] 12/27/2022 Office Visit Family Medicine Drea Raya MD [address] [place] [address] Scheduled Procedures Name Priority Associated Diagnoses Date/Ti [...] documented as of this encounter Care Teams Elocution Teacher Relationship Specialty Start Date End Date Toby Paz MD [address] [place] [address] PCP - General Family Medicine 11/25/14 documented as of this encounter
--- OUTSIDE RECORDS SUMMARY | 2023-05-14 06:45 | External Medical Summary | Summary of Care ---
Author Name Unknown Organization [facility] Address [address] [place] [facility] [address] Phone [phone] Care Team Providers Care Shove Up Name Role Phone Toby Paz MD Primary Care Provider [phone]- [phone] Reason for Visit * Reason Onset Date Comments FYI 11/22/2022 Encounter Details Date Type Department Care Team Description 11/22/2022 Telephone [facility] [address] [place] [address] Toby Paz MD [address] [place] [address] FYI (/) Allergies Active Allergy Reactions Severity Noted Date [...] ischemic heart disease 11/29/2001 Overview: father had MT's in 40's Gastroesophageal reflux disease with eso phagitis documented as of this encounter (statuses as of 11/22/2022) Resolved Problems Problem Noted Date Resolved Date Facial swelling 06/09/2017 08/07/2019 Urticaria 06/09/2017 08/07/2019 Intestinal obstruction 05/09/2012 7 CLASSICAL MIGRAINE WITHOU MENTION OF INTRACTABLE MIGRAINE 11/29/2001 08/07/2019 Undiagnosed cardiac murmurs 11/29/200102/03 Overview: Not [place] on 11/29/01 documented as of this encounter (statuses as of 11/22/2022) Immunizations Name Administration Dates Next Due HEP A - Hepatitis A (Adult > 18 yrs) 06/06/2020 Pneumococcal Conjugate Vacci ne, 20-valent ([id number]) 06/24/2022 Seasonal Influenza Virus Vac cine, Unspecified [...] Miscellaneous Notes * Telephone Encounter - DAISHA Manjarrez - 11/22/2022 11:54 AM EDT Checked to see who ordered urine documented in this encounter Plan of Treatment Upcoming Encounters Date Type Specialty Care Team Description 12/01/2022 Office Visit Orthopedics Jayson Short, DO [address] [place] [address] 12/27/2022 Office Visit Family Medicine Drea Raya MD [address] [place] [address] Scheduled Procedures Name Priority Associated Diagnoses Date/Ti [...] documented as of this encounter Care Teams Shove Up Relationship Specialty Start Date End Date Toby Paz MD [address] [place] [address] PCP - General Family Medicine 11/25/14 documented as of this encounter
--- OUTSIDE RECORDS SUMMARY | 2023-05-14 06:45 | External Medical Summary ---
Author Name Unknown Address Unknown Organization : Laboratory Report Ordering Provider Test Date Status JOHN RICHARDS 11/21/2022 09:23:56 Final Observation Date Value Abnormality Reference (Units ) Status Glucose Point of Care 11/21/2022 09:23:56 88 70-120 (mg/dL) Final Performing Location
--- NOTE | 2023-05-14 07:30 | Emergency Department Note ---
ED Provider Note History of Present Illness Chief Complaint: Confusion Stated Complaint: CONFUSION Time Seen by Provider: 05/14/23 07:11 57-year-old male, past medical history of HTN, HLD, TIA, ETOH abuse, cirrhosis, esophageal varices, ascites, hepatic encephalopathy and GERD, who presents to the emergency department with his fimadyson for evaluation of confusion. The fiadelia reports that he has been declining over the past 2 to 3 days. She reports that he has had a prior admission last fall for high ammonia. He also had a left hip replacement on 04/10/2023. Patient reports bilateral leg pain. He denies any recent falls or injuries. He also complains of lower back pain. Fianc reports that the patient had similar symptoms in the past when his ammonia level was too high. The patient reports that he has been taking his home medications as prescribed. The fianc denies any recent alcohol consumption. Patient currently denies any chest pain, shortness of breath, headache or neck pain. Geranc reports that he has not had any recent upper respiratory infections. The patient denies any urinary symptoms or diarrhea. The patient rates his discomfort a 10 out of 10. Home Medications Medication Instructions Recorded Confirmed Type atorvastatin 20 mg tablet 20 mg PO HS 01/18/18 05/14/23 History pantoprazole 40 mg tablet,delayed 40 mg PO BID 07/26/18 05/14/23 History release lactulose 10 gram/15 mL oral 20 g PO TID 11/24/21 05/14/23 History solution magnesium oxide 400 mg (241.3 mg 400 mg PO AMHS 11/24/21 05/14/23 History magnesium) tablet furosemide 40 mg tablet 40 mg PO DAILY 02/23/22 05/14/23 History gabapentin 100 mg capsule 100 mg PO QAM 02/23/22 05/14/23 History rifaximin 550 mg tablet (Xifaxan) 550 mg PO BID 02/23/22 05/14/23 History fluoxetine 10 mg capsule 10 mg PO QAM 01/11/23 05/14/23 History spironolactone 25 mg tablet 25 mg PO DAILY 01/11/23 05/14/23 History diclofenac sodium 1 % topical gel 2 g topical BID PRN Pain 05/11/23 05/14/23 History ferrous sulfate 325 mg (65 mg 325 mg PO DAILY 05/11/23 05/14/23 History iron) tablet (iron) oxycodone 5 mg tablet 5 mg PO Q6H PRN Pain 05/11/23 05/14/23 History trazodone 50 mg tablet 100 mg PO HS 05/11/23 05/14/23 History triamcinolone acetonide 0.1 % 1 applic topical BID PRN AFFECTED 05/11/23 05/14/23 History topical cream AREA vitamins A and D 2 cap PO BID 05/11/23 05/14/23 History Allergies Allergy/AdvReac Type Severity Reaction Status Date / Time No Known Allergies Allergy Verified 05/14/23 08:56 Past Med/Surg History Medical History Depression History of ascites Acute alteration in mental status Cirrhosis of liver UTI (urinary tract infection) Thrombocytopenia Nausea Abnormal PFT Acid reflux HLD (hyperlipidemia) HTN (hypertension) Elevated LFTs GERD (gastroesophageal reflux disease) Hypertension Hyperlipidemia H/O angioedema ongoing, follows with allergy Surgical History History of esophagogastroduodenoscopy (EGD) History of colonoscopy History of bowel resection 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 History of appendectomy History of tooth extraction History of appendectomy Family History Father Hearing loss Hypertension Stroke Heart disease Other No pertinent family history in first degree relatives Denies family history of No family history of adverse response to anesthesia No family history of bleeding disorder Allergies Asthma Social History Smoking Status: Never smoker Tobacco Type: Cigarettes Cigarettes Per Day: 1-2; Second Hand Exposure: No; Do You Dip or Chew Tobacco: No; Hx Alcohol Use: No Hx Substance Use: No Preferred Language: Serbian Communication Ability: Effective Cardiac Care Unit Nurse Required: No Beliefs That Will Affect Care: None marital status: Current Living Situation: Significant Other Current Living Situation Comment: LIVES WITH GIRLFRIEND 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 Safe at Home: Yes Assistive Devices: Walker and Wheelchair Physical Exam Vital Signs Vital Signs - 24 hr 05/14/23 06:44 05/14/23 07:27 05/14/23 08:06 Temperature 36.8 C Temperature Source Temporal Artery Scan Pulse Rate 80 67 Pulse Rate [Apical] Pulse Rate from SpO2 Sensor Respiratory Rate 18 Respiratory Effort / Characteristics Non-Labored Spontaneous Respiratory Depth Normal Respiratory Pattern Regular Blood Pressure 116/71 Blood Pressure [Left Arm] Blood Pressure Mean 86 Blood Pressure Mean [Left Arm] Blood Pressure Position Sitting Pulse Oximetry 98 98 Oxygen Delivery Method Room Air Room Air Sepsis Recent Fever Within 48 Hours No Sepsis New/Unexplained Change in Mental Status N/A Sepsis Action Taken by Nursing No Action Required 05/14/23 08:06 05/14/23 08:53 05/14/23 09:00 Temperature Temperature Source Pulse Rate 67 Pulse Rate [Apical] 71 Pulse Rate from SpO2 Sensor 70 Respiratory Rate 20 20 16 Respiratory Effort / Characteristics Non-Labored Spontaneous Respiratory Depth Normal Respiratory Pattern Regular Blood Pressure 143/78 H Blood Pressure [Left Arm] 123/70 Blood Pressure Mean 99 Blood Pressure Mean [Left Arm] 87 Blood Pressure Position Pulse Oximetry 98 99 99 Oxygen Delivery Method Room Air Room Air Sepsis Recent Fever Within 48 Hours Sepsis New/Unexplained Change in Mental Status Sepsis Action Taken by Nursing 05/14/23 10:00 Temperature Temperature Source Pulse Rate 72 Pulse Rate [Apical] Pulse Rate from SpO2 Sensor 71 Respiratory Rate 16 Respiratory Effort / Characteristics Respiratory Depth Respiratory Pattern Blood Pressure 135/73 Blood Pressure [Left Arm] Blood Pressure Mean 93 Blood Pressure Mean [Left Arm] Blood Pressure Position Pulse Oximetry 100 Oxygen Delivery Method Sepsis Recent Fever Within 48 Hours Sepsis New/Unexplained Change in Mental Status Sepsis Action Taken by Nursing CONSTITUTIONAL: Healthy and well nourished. Patient is alert to person and place. The fianc reports that he was confused with day of the week this morning. HEENT: Normocephalic, atraumatic. Pupils equal, round and reactive. Patient has a slight jaundiced appearance. No facial droop. RESPIRATORY: Clear to auscultation bilaterally with no wheezing, crackles, rhonchi or stridor. CARDIOVASCULAR: Regular rate and rhythm with no murmurs, rubs or gallops. GASTROINTESTINAL: Bowel sounds present in all quadrants. Abdomen is protuberant but soft and nontender to palpation. No fluid wave. MUSCULOSKELETAL: Patient has generalized tenderness to palpation of both lower extremities. No pretibial pitting edema. Negative logroll of the left hip. INTEGUMENTARY: No rash or other significant dermatologic conditions noted. HEMATOLOGIC: No ecchymosis or petechiae. PSYCHIATRIC: Positive affect. NEUROLOGIC: No focal neurologic deficits noted. Course Course Patient history and physical exam were performed. Nurses notes reviewed. Vital signs were reviewed and were normal. I did review prior medical records, showing that the patient was last admitted to our facility on 01/11/2023 with hyperammonemia. Further review of outside medical records has shown chronically elevated bilirubin with recent normal LFTs. His ammonia level on prior admission was 85. IV access was established, and labs were drawn. An ECG was performed and was normal. The patient was placed on playground monitor while in the emergency department. Chest x-ray did not show any obvious consolidations, pneumothorax, pulmonary edema or significant cardiomegaly. Noncontrast CT of the head did not show evidence for intracranial bleed, midline shift or mass effect. Review of labs shows a leukopenia and anemia comparable to prior labs. Coag studies shows a PT 14.1, and INR 1.3. Creatinine is normal. Ammonia level was normal at 58. Urinalysis shows 3+ hematuria 1+ bilirubinuria with negative nitrites, leukocyte esterase and bacteria. [employer] upper respiratory PCR panel was negative. Venous ultrasound of bilateral lower extremities were negative for DVT. Upon reevaluation, the patient still had significant discomfort in his legs. He was also persistently confused. The patient was administered IV Tylenol. Case was discussed with Dr. Knight, ED attending physician, who recommended observation for confusion. The case was then discussed with Dr. Marquez, [facility] hospitalist, who will evaluate the patient. Please see their dictation for further treatment and final disposition. Administered Medications Miscellaneous (Patient's Height &/Or Weight Needed) 1 each N/A Q2H ANNMARIE Stop: 06/13/23 16:44 Last Admin: 05/14/23 16:59 Dose: 1 each Documented By: ARS Discontinued Medications Hydromorphone HCl (Hydromorphone Inj 0.5 Mg/0.5 Ml Syr) 0.25 mg IV NOW STA Stop: 05/14/23 12:36 Last Admin: 05/14/23 13:27 Dose: 0.25 mg Documented By: MT Acetaminophen (Ofirmev) 1,000 mg in 100 mls @ 400 mls/hr IV NOW STA Stop: 05/14/23 09:43 Last Infusion: 05/14/23 11:43 Dose: Infused Documented By: Admin: 05/14/23 11:14 Dose: 400 mls/hr Documented By: MARYSOL Lactulose (Lactulose Syrup 30 Gm/45 Ml Udp) 30 gm PO NOW STA Stop: 05/14/23 10:27 Last Admin: 05/14/23 11:14 Dose: 30 gm Documented By: MARYSOL Medical Decision Making Medical Records Attestation: I reviewed the patient's medical records. Home Medications was personally reviewed by me Laboratory Data Attestation: I reviewed the patient's lab results. 05/14/23 07:39 05/14/23 07:39 Lab Results 05/14/23 05/14/23 05/14/23 Range/Units 07:20 07:30 07:35 WBC (4.8-10.8) K/ul RBC (4.70-6.10) M/uL Hgb (14.0-18.0) g/dl POC Hgb 12.2 L (14.0-18.0) g/dl Hct (42.0-52.0) % POC Hct 36 L (42-52) % MCV (80.0-100.0) fL MCH (25.0-34.0) pg MCHC (32.0-36.0) g/dL RDW Std Deviation (36.4-46.3) fL RDW Coeff of Fabiola (11.5-14.5) % Plt Count (130-400) K/uL MPV (9.4-12.4) fL Immature Gran % (Auto) % Neut % (Auto) % Lymph % (Auto) % Finney % (Auto) % Eos % (Auto) % Baso % (Auto) % Neut # (Auto) (1.40-6.50) K/uL Lymph # (Auto) (1.20-3.40) K/uL Finney # (Auto) (0.11-0.59) K/uL Eos # (Auto) (0.00-0.50) K/uL Baso # (Auto) (0.00-0.20) K/uL Immature Gran # (Auto) (0.01-0.20) K/uL PT (9.0-12.0) Seconds INR (0.9-1.1) POC Sodium 141 (135-144) mmol/L Sodium (136-145) mmol/L POC Potassium 4.9 (3.3-5.0) mmol/L Potassium (3.5-5.1) mmol/L POC Chloride 114 H (101-112) mmol/L Chloride (98-107) mmol/L Carbon Dioxide (21-32) mmol/L POC Total CO2 19 L (24-31) mmol/L Anion Gap (3-11) POC Anion Gap 14.0 L (16-25) mmol/L POC BUN 21 H (7-18) mg/dl BUN (6-23) mg/dl Creatinine (0.6-1.4) mg/dl POC Creatinine 0.7 (0.6-1.3) mg/dl Est Cr Clr Drug Dosing Est GFR ( Amer) ml/min Est GFR (Non-Af Amer) ml/min BUN/Creatinine Ratio (10-20) Glucose (70-99(Fasting)) mg/dl POC Glucose (other) 99 (70-99) mg/dl Calcium (8.6-10.3) mg/dl POC Ioniz Calcium Doug 1.16 (1.12-1.32) mmol/l Magnesium (1.7-2.4) mg/dl Total Bilirubin (0.2-1.0) mg/dl AST (13-39) U/L ALT (7-52) U/L Alkaline Phosphatase (34-104) U/L Ammonia Cancelled Total Creatine Kinase (30-223) U/L Troponin I High Sens (0-20) pg/ml Total Protein (6.0-8.3) gm/dl Albumin (3.4-5.0) gm/dl Globulin (2.5-4.0) gm/dl Albumin/Globulin Ratio (0.9-2) TSH (0.300-4.500) uIu/ml Urine Color Urine Appearance (Clear) Urine pH (4.5-7.5) Ur Specific [place] (1.000-1.030) Urine Protein (Negative) Urine Glucose (UA) (Negative) Urine Ketones (Negative) Urine Blood (Negative) Urine Nitrite (Negative) Urine Bilirubin (Negative) Urine Urobilinogen (Negative) Ur Leukocyte Esterase (Negative) Urine WBC (Auto) (0-5) /hpf Urine RBC (Auto) (0-4) /hpf U Hyaline Cast (Auto) (0-5) /lpf U Epithel Cells (Auto) (0-5) /lpf Urine Bacteria (Auto) (Negative) Adenovirus (PCR) Not Detected (NotDetected) B. pertussis DNA (PCR) Not Detected (NotDetected) B.parapertussis DNA PCR Not Detected (NotDetected) C. pneumoniae DNA (PCR) Not Detected (NotDetected) Coronavirus OC43 (PCR) Not Detected (NotDetected) Coronavirus HKU1 (PCR) Not Detected (NotDetected) Coronavirus 229E (PCR) Not Detected (NotDetected) SARS-CoV-2 (PCR) Not Detected (NotDetected) Coronavirus NL63 (PCR) Not Detected (NotDetected) Human Metapneumovir PCR Not Detected (NotDetected) Influenza Type A (PCR) Not Detected (NotDetected) Influenza Type B (PCR) Not Detected (NotDetected) M. pneumoniae (PCR) Not Detected (NotDetected) Parainfluenza 1 (PCR) Not Detected (NotDetected) Parainfluenza 2 (PCR) Not Detected (NotDetected) Parainfluenza 3 (PCR) Not Detected (NotDetected) Parainfluenza 4 (PCR) Not Detected (NotDetected) RSV (PCR) Not Detected (NotDetected) Entero/Rhino (PCR) Not Detected (NotDetected) 05/14/23 05/14/23 05/14/23 Range/Units 07:39 07:50 07:58 WBC 4.32 L (4.8-10.8) K/ul RBC 3.75 L (4.70-6.10) M/uL Hgb 12.7 L (14.0-18.0) g/dl POC Hgb (14.0-18.0) g/dl Hct 38.2 L (42.0-52.0) % POC Hct (42-52) % MCV 101.9 H (80.0-100.0) fL MCH 33.9 (25.0-34.0) pg MCHC 33.2 (32.0-36.0) g/dL RDW Std Deviation 60.5 H (36.4-46.3) fL RDW Coeff of Fabiola 16.0 H (11.5-14.5) % Plt Count 43 L (130-400) K/uL MPV 12.6 H (9.4-12.4) fL Immature Gran % (Auto) 0.2 % Neut % (Auto) 53.5 % Lymph % (Auto) 27.1 % Finney % (Auto) 12.0 % Eos % (Auto) 6.7 % Baso % (Auto) 0.5 % Neut # (Auto) 2.31 (1.40-6.50) K/uL Lymph # (Auto) 1.17 L (1.20-3.40) K/uL Finney # (Auto) 0.52 (0.11-0.59) K/uL Eos # (Auto) 0.29 (0.00-0.50) K/uL Baso # (Auto) 0.02 (0.00-0.20) K/uL Immature Gran # (Auto) 0.01 (0.01-0.20) K/uL PT 14.1 H (9.0-12.0) Seconds INR 1.3 H (0.9-1.1) POC Sodium (135-144) mmol/L Sodium 140 (136-145) mmol/L POC Potassium (3.3-5.0) mmol/L Potassium 3.6 (3.5-5.1) mmol/L POC Chloride (101-112) mmol/L Chloride 114 H (98-107) mmol/L Carbon Dioxide 20 L (21-32) mmol/L POC Total CO2 (24-31) mmol/L Anion Gap 6 (3-11) POC Anion Gap (16-25) mmol/L POC BUN (7-18) mg/dl BUN 17 (6-23) mg/dl Creatinine 0.81 (0.6-1.4) mg/dl POC Creatinine (0.6-1.3) mg/dl Est Cr Clr Drug Dosing Not Reportable Est GFR ( Amer) 113.5 ml/min Est GFR (Non-Af Amer) 98.0 ml/min BUN/Creatinine Ratio 21.0 H (10-20) Glucose 98 (70-99(Fasting)) mg/dl POC Glucose (other) (70-99) mg/dl Calcium 9.2 (8.6-10.3) mg/dl POC Ioniz Calcium Doug (1.12-1.32) mmol/l Magnesium 1.7 (1.7-2.4) mg/dl Total Bilirubin 2.5 H (0.2-1.0) mg/dl AST 30 (13-39) U/L ALT 18 (7-52) U/L Alkaline Phosphatase 97 (34-104) U/L Ammonia 58.0 Total Creatine Kinase 56 (30-223) U/L Troponin I High Sens 4.5 (0-20) pg/ml Total Protein 6.4 (6.0-8.3) gm/dl Albumin 3.6 (3.4-5.0) gm/dl Globulin 2.8 (2.5-4.0) gm/dl Albumin/Globulin Ratio 1.3 (0.9-2) TSH 1.633 (0.300-4.500) uIu/ml Urine Color Dark Yellow Urine Appearance Clear (Clear) Urine pH 5.5 (4.5-7.5) Ur Specific [place] 1.035 H (1.000-1.030) Urine Protein Negative (Negative) Urine Glucose (UA) Negative (Negative) Urine Ketones Trace H (Negative) Urine Blood 3+ H (Negative) Urine Nitrite Negative (Negative) Urine Bilirubin 1+ H (Negative) Urine Urobilinogen Negative (Negative) Ur Leukocyte Esterase Negative (Negative) Urine WBC (Auto) 1-5 (0-5) /hpf Urine RBC (Auto) 10-30 H (0-4) /hpf U Hyaline Cast (Auto) 1-5 (0-5) /lpf U Epithel Cells (Auto) 5-10 H (0-5) /lpf Urine Bacteria (Auto) Negative (Negative) Adenovirus (PCR) (NotDetected) B. pertussis DNA (PCR) (NotDetected) B.parapertussis DNA PCR (NotDetected) C. pneumoniae DNA (PCR) (NotDetected) Coronavirus OC43 (PCR) (NotDetected) Coronavirus HKU1 (PCR) (NotDetected) Coronavirus 229E (PCR) (NotDetected) SARS-CoV-2 (PCR) (NotDetected) Coronavirus NL63 (PCR) (NotDetected) Human Metapneumovir PCR (NotDetected) Influenza Type A (PCR) (NotDetected) Influenza Type B (PCR) (NotDetected) M. pneumoniae (PCR) (NotDetected) Parainfluenza 1 (PCR) (NotDetected) Parainfluenza 2 (PCR) (NotDetected) Parainfluenza 3 (PCR) (NotDetected) Parainfluenza 4 (PCR) (NotDetected) RSV (PCR) (NotDetected) Entero/Rhino (PCR) (NotDetected) Imaging Data Attestation: I personally reviewed and interpreted this imaging study as follows: My Impression: My interpretation of a portable chest x-ray does not show pneumonia, pneumothorax or significant cardiomegaly. My interpretation of a noncontrast CT of the head does not show evidence for intracranial bleed, midline shift or mass effect. My interpretation of venous ultrasound studies of bilateral lower extremities was negative for DVT. Radiologist's Impression: Head CT 05/14/23 07:19 CT OF THE HEAD WITHOUT CONTRAST CLINICAL HISTORY: Confusion COMPARISON STUDY: Head CT December 20, 2022. MRI of the brain February 23, 2022. CT DOSE: 625.8 mGy.cm TECHNIQUE: Helical axial images of the head were obtained without IV contrast. Automated exposure control was utilized for the study. A dose lowering technique was utilized adhering to the principles of ALARA. FINDINGS: No acute intracranial hemorrhage, midline shift or mass effect is present. The ventricular system is unremarkable. The basal cisterns are patent. No extra-axial collections are present. There are no findings to suggest acute dural sinus thrombosis or acute territorial infarct. No significant calvarial abnormalities are present. Visualized portions of the sinuses and mastoid air cells are clear. IMPRESSION: No acute intracranial findings. ACT 112: Negative or not required by law. Electronically signed by: Hira Cordova M.D. 05/14/2023 8:18 AM Venous Doppler Study 05/14/23 07:19 BILATERAL LOWER EXTREMITY VENOUS DOPPLER CLINICAL HISTORY: BLE pain, 1 mo s/p L CECILIO COMPARISON STUDY: Left lower extremity venous Doppler ultrasound May 12, 2023. TECHNIQUE: Sonography of the deep venous system of the bilateral lower extremities was performed. Compression and augmentation were evaluated. FINDINGS: The bilateral common femoral, superficial femoral and popliteal veins were compressible. Augmentation was normal. Flow was shown within the deep calf vessels. IMPRESSION: No evidence of deep venous thrombus within the bilateral lower extremities. ACT 112: Negative or not required by law. Electronically signed by: Hira Cordova M.D. 05/14/2023 8:49 AM Chest X-Ray 05/14/23 07:20 XR chest 1V portable CLINICAL HISTORY: weakness COMPARISON STUDY: Chest radiograph and chest CT May 11, 2023. FINDINGS: Lung volumes are at the lower limits of normal. Lungs are clear. There is no pneumothorax or pleural effusion. Mild cardiomegaly is unchanged. Mediastinal contours are normal. There is pulmonary vascular congestion. IMPRESSION: Pulmonary vascular congestion, possibly technical, without overt pulmonary edema. ACT 112: Negative or not required by law. Electronically signed by: Hira Cordova M.D. 05/14/2023 9:13 AM ECG Data Attestation: I personally reviewed and interpreted this ECG as follows: Indication: + weakness and + other (Confusion) Rate (beats per minute): 68 Rhythm: + normal sinus ECG Intervals/blocks: + Normal QRS, + Normal QT and + Normal [place] ECG [place]: + Normal ECG ST segments: + Normal ST segments Comparison ECG Date: from (05/11/2023) Change: no significant change MDM Narrative Cardiac monitoring: An order was placed for continuous cardiac monitoring. The monitor shows a rate of 68 beats per with a normal sinus rhythm. hall monitor history was reviewed throughout the evaluation, and no dysrhythmias were noted. See ED Course section for further details of today's visit. Patient presents emergency department with complaint of confusion. The patient has had prior hyperammonemia and hepatic encephalopathy. His ammonia level today is actually normal. The patient does not have any other acute laboratory findings. CT imaging of the head show evidence for hemorrhagic CVA or intracranial bleeding. Cardiac workup was also normal. A [employer] respiratory panel does not show evidence for viral upper respiratory infection. Urinalysis is not consistent with infection. Remaining labs appear to be fairly stable when compared to baseline labs. Given the patient's persistent confusion, I do feel the patient warrants observation at our facility. Impression Altered mental status, Bilateral leg pain, History of total left hip replacement Discharge Plan Visit Data Chief Complaint: Confusion Stated Complaint: CONFUSION ED Provider: Karl Knight ED Midlevel Provider: Myranda,Henry G Discharge Problem: Altered mental status, Bilateral leg pain, History of total left hip replacement Discharge Instructions Interventions: ED Discharge Assessment Last Done: 05/14/23 16:30 Discharge Problem: Altered mental status Qualifiers: Altered mental status type: unspecified Qualified Code(s): R41.82 - Altered mental status, unspecified
[2023-05-14 07:48] LABS: iSTAT Creatinine 0.7 mg/dl (0.6-1.3); iSTAT Hemoglobin 12.2 g/dl (14.0-18.0); iSTAT Ionized Calcium 1.16 mmol/l (1.12-1.32); iSTAT Potassium 4.9 mmol/L (3.3-5.0)
[2023-05-14 08:07] LABS: Basophils # (auto) 0.02 K/uL (0.00-0.20); Basophils % (auto) 0.5 %; Eosinophils # (auto) 0.29 K/uL (0.00-0.50); Eosinophils % (auto) 6.7 %; Hematocrit (blood only) 38.2 % (42.0-52.0); Hemoglobin 12.7 g/dl (14.0-18.0); Immature Granulocytes # (auto) 0.01 K/uL (0.01-0.20); Immature Granulocytes % (auto) 0.2 %; Lymphocytes # (auto) 1.17 K/uL (1.20-3.40); Lymphocytes % (auto) 27.1 %; Mean Corpuscular Hemoglobin 33.9 pg (25.0-34.0); Mean Corpuscular Hgb Conc 33.2 g/dL (32.0-36.0); Mean Corpuscular Volume 101.9 fL (80.0-100.0); Mean Platelet Volume 12.6 fL (9.4-12.4); Monocytes # (auto) 0.52 K/uL (0.11-0.59); Neutrophils # (auto) 2.31 K/uL (1.40-6.50); Neutrophils % (auto) 53.5 %; Platelet Count 43 K/uL (130-400); RDW Standard Deviation 60.5 fL (36.4-46.3); Red Blood Count 3.75 M/uL (4.70-6.10); White Blood Count 4.32 K/ul (4.8-10.8)
[2023-05-14 08:11] LABS: Alanine Aminotransferase 18 U/L (7-52); Albumin Globulin Ratio 1.3 (0.9-2); Albumin Level 3.6 gm/dl (3.4-5.0); Alkaline Phosphatase 97 U/L (34-104); Anion Gap 6 (3-11); Aspartate Aminotransferase 30 U/L (13-39); Bilirubin,Total 2.5 mg/dl (0.2-1.0); Blood Urea Nitrogen 17 mg/dl (6-23); Calcium 9.2 mg/dl (8.6-10.3); Carbon Dioxide 20 mmol/L (21-32); Chloride 114 mmol/L (98-107); Creatine Kinase 56 U/L (30-223); Est GFR (African American) 113.5 ml/min; Globulin 2.8 gm/dl (2.5-4.0); Glucose 98 mg/dl (70-99(Fasting)); Magnesium 1.7 mg/dl (1.7-2.4); Potassium 3.6 mmol/L (3.5-5.1); Sodium 140 mmol/L (136-145); Total Protein 6.4 gm/dl (6.0-8.3)
[2023-05-14 08:16] LABS: Troponin I High Sensitivity 4.5 pg/ml (0-20)
[2023-05-14 08:20] LABS: INR 1.3 (0.9-1.1); Prothrombin Time 14.1 Seconds (9.0-12.0)
[2023-05-14 08:20] LABS: Appearance Urine Clear (Clear); Bacteria Urine Automated Negative (Negative); Blood Urine 3+ (Negative); Color Urine Dark Yellow; Glucose Urine UA Negative (Negative); Ketones Urine Trace (Negative); Leukocyte Esterase Urine Negative (Negative); Nitrite Urine Negative (Negative); Protein Urine Negative (Negative); Specific Gravity Urine 1.035 (1.000-1.030); Urobilinogen Urine Negative (Negative); pH Urine 5.5 (4.5-7.5)
--- NOTE | 2023-05-14 08:20 | CT Scan Report ---
CT OF THE HEAD WITHOUT CONTRAST CLINICAL HISTORY: Confusion COMPARISON STUDY: Head CT December 20, 2022. MRI of the brain February 23, 2022. CT DOSE: 625.8 mGy.cm TECHNIQUE: Helical axial images of the head were obtained without IV contrast. Automated exposure con trol was utilized for the study. A dose lowering technique was utilized adhering to the principles o f ALARA. FINDINGS: No acute intracranial hemorrhage, midline shift or mass effect is present. The ventricular system is unremarkable. The basal cisterns are patent. No extra-axial collections are present. There are no findings to suggest acute dural sinus thrombosis or acute territorial infarct. No significant calvarial abnormalities are present. Visualized portions of the sinuses and mastoid air cells are maribell ar. IMPRESSION: No acute intracranial findings. ACT 112: Negative or not required by law. Electronically signed by: Hira Cordova M.D. 05/14/2023 8:18 AM
[2023-05-14 08:26] LABS: Thyroid Stimulating Hormone 1.633 uIu/ml (0.300-4.500)
[2023-05-14 08:28] LABS: Bilirubin Urine 1+ (Negative)
--- NOTE | 2023-05-14 08:51 | Ultrasound Report ---
BILATERAL LOWER EXTREMITY VENOUS DOPPLER CLINICAL HISTORY: BLE pain, 1 mo s/p L CECILIO COMPARISON STUDY: Left lower extremity venous Doppler ultrasound May 12, 2023. TECHNIQUE: Sonography of the deep venous system of the bilateral lower extremities was performed. Co mpression and augmentation were evaluated. FINDINGS: The bilateral common femoral, superficial femoral and popliteal veins were compressible. A ugmentation was normal. Flow was shown within the deep calf vessels. IMPRESSION: No evidence of deep venous thrombus within the bilateral lower extremities. ACT 112: Negative or not required by law. Electronically signed by: Hira Cordova M.D. 05/14/2023 8:49 AM
[2023-05-14 09:04] LABS: Adenovirus PCR Not Detected (NotDetected); Bordetella parapertussis PCR Not Detected (NotDetected); Bordetella pertussis PCR Not Detected (NotDetected); Chlamydia pneumoniae PCR Not Detected (NotDetected); Coronavirus 229E PCR Not Detected (NotDetected); Coronavirus CoV-2 (COVID19)PCR Not Detected (NotDetected); Coronavirus HKU1 PCR Not Detected (NotDetected); Coronavirus NL63 PCR Not Detected (NotDetected); Coronavirus OC43PCR Not Detected (NotDetected); Human Metapneumovirus PCR Not Detected (NotDetected); Influenza A PCR Not Detected (NotDetected); Influenza B PCR Not Detected (NotDetected); Mycoplasma pneumoniae PCR Not Detected (NotDetected); Parainfluenza Virus 1 PCR Not Detected (NotDetected); Parainfluenza Virus 2 PCR Not Detected (NotDetected); Parainfluenza Virus 3 PCR Not Detected (NotDetected); Parainfluenza Virus 4 PCR Not Detected (NotDetected); Respiratory Syncytial VirusPCR Not Detected (NotDetected); Rhinovirus/Enterovirus PCR Not Detected (NotDetected)
--- NOTE | 2023-05-14 09:15 | XRay Report ---
XR chest 1V portable CLINICAL HISTORY: weakness COMPARISON STUDY: Chest radiograph and chest CT May 11, 2023. FINDINGS: Lung volumes are at the lower limits of normal. Lungs are clear. There is no pneumothorax o r pleural effusion. Mild cardiomegaly is unchanged. Mediastinal contours are normal. There is pulmona ry vascular congestion. IMPRESSION: Pulmonary vascular congestion, possibly technical, without overt pulmonary edema. ACT 112: Negative or not required by law. Electronically signed by: Hira Cordova M.D. 05/14/2023 9:13 AM
--- NOTE | 2023-05-14 10:48 | History & Physical Report ---
Date of Service May 14, 2023 Assessment & Plan (1) Acute hepatic encephalopathy: Plan: Increasing confusion since Monday last Has hepatic flap and acutely confused No definite infection-will get urine and blood cultures Will get a CT scan of the abdomen and pelvis Recent hip [id number] of the left hip on 05/12 unremarkable Will continue lactulose to have bowel movement 2-3 times a day and other medications Observe in medical telemetry unit (2) Acute alteration in mental status: Plan: As above (3) Alcoholic cirrhosis: Plan: History of alcoholic cirrhosis with esophageal varices Holding furosemide and his prolactin for now Will give 1000 mL of NSS (4) HTN (hypertension): Plan: Controlled now (5) GERD (gastroesophageal reflux disease): Plan: Continue PPI (6) Thrombocytopenia: Plan: Secondary to cirrhosis Will not give any pharmacologic anticoagulation Other significant medical conditions remain stable as below Hypertension Hyperlipidemia Esophageal varices TIA Plan DVT prophylaxis SCDs. No pharmacologic anticoagulation due to thrombocytopenia CODE STATUS Full History of Present Illness Chief Complaint: Increasing confusion since Monday Primary Care Provider: Toby Paz MD Is a 57-year-old male with significant past medical history of cirrhosis with history of hepatic and cephalopathy, esophageal varices, hypertension, hyperlipidemia, history of TIA and GERD apparently has been complaining of confusion since Monday. The confusion has been getting worse as of this morning and he was brought into the emergency room. Denies any abdominal distention or bloating, no pain in the abdomen, no nausea and or vomiting or diarrhea, no problem with urine or bowel habit, no fever and or chills, and no increasing swelling of the legs. He has had left hip replacement on 10 April and does have some pain in the hips. He denies any significant neurological symptoms. He has been taking his medications regularly. His last hepatic and cephalopathy happened to be in January of last year. ER he remains hemodynamically stable and is pleasantly confused has some discomfort due to nonspecific pain in the hip. But no significant abdominal pain. His ammonia level is normal. he was admitted to medical floor for observation Allergies Allergy/AdvReac Type Severity Reaction Status Date / Time No Known Allergies Allergy Verified 05/14/23 08:56 Home Medications Medication Instructions Recorded Confirmed Type atorvastatin 20 mg tablet 20 mg PO HS 01/18/18 05/14/23 History pantoprazole 40 mg tablet,delayed 40 mg PO BID 07/26/18 05/14/23 History release lactulose 10 gram/15 mL oral 20 g PO TID 11/24/21 05/14/23 History solution magnesium oxide 400 mg (241.3 mg 400 mg PO AMHS 11/24/21 05/14/23 History magnesium) tablet furosemide 40 mg tablet 40 mg PO DAILY 02/23/22 05/14/23 History gabapentin 100 mg capsule 100 mg PO QAM 02/23/22 05/14/23 History rifaximin 550 mg tablet (Xifaxan) 550 mg PO BID 02/23/22 05/14/23 History fluoxetine 10 mg capsule 10 mg PO QAM 01/11/23 05/14/23 History spironolactone 25 mg tablet 25 mg PO DAILY 01/11/23 05/14/23 History diclofenac sodium 1 % topical gel 2 g topical BID PRN Pain 05/11/23 05/14/23 History ferrous sulfate 325 mg (65 mg 325 mg PO DAILY 05/11/23 05/14/23 History iron) tablet (iron) oxycodone 5 mg tablet 5 mg PO Q6H PRN Pain 05/11/23 05/14/23 History trazodone 50 mg tablet 100 mg PO HS 05/11/23 05/14/23 History triamcinolone acetonide 0.1 % 1 applic topical BID PRN AFFECTED 05/11/23 05/14/23 History topical cream AREA vitamins A and D 2 cap PO BID 05/11/23 05/14/23 History Past Med/Surg History Medical History Depression History of ascites Acute alteration in mental status Cirrhosis of liver UTI (urinary tract infection) Thrombocytopenia Nausea Abnormal PFT Acid reflux HLD (hyperlipidemia) HTN (hypertension) Elevated LFTs GERD (gastroesophageal reflux disease) Hypertension Hyperlipidemia H/O angioedema ongoing, follows with allergy Surgical History History of esophagogastroduodenoscopy (EGD) History of colonoscopy History of bowel resection 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 History of appendectomy History of tooth extraction History of appendectomy Family History Father Hearing loss Hypertension Stroke Heart disease Other No pertinent family history in first degree relatives Denies family history of No family history of adverse response to anesthesia No family history of bleeding disorder Allergies Asthma Social History Smoking Status: Never smoker Tobacco Type: Cigarettes Cigarettes Per Day: 1-2; Second Hand Exposure: No; Do You Dip or Chew Tobacco: No; Hx Alcohol Use: No Hx Substance Use: No Preferred Language: Arabic Communication Ability: Effective 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 Required: No Beliefs That Will Affect Care: None marital status: Current Living Situation: Significant Other Current Living Situation Comment: LIVES WITH GIRLFRIEND 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 Safe at Home: Yes Assistive Devices: Walker and Wheelchair Review of Systems Review of Systems: All systems reviewed and are unremarkable except as noted below Physical Exam Physical Exam: Lying in bed with some nonspecific distress Constitutional: well developed, well nourished and + ill appearing Eyes: PERRL, conjunctivae normal, anicteric sclerae ENMT: external ear and nose normal, oropharynx normal Neck: trachea midline, no thyromegaly Respiratory: no respiratory distress Auscultation: lungs clear to auscultation bilaterally Cardiovascular: Rate/Rhythm: regular rate and regular rhythm; not tachycardic Heart Sounds: normal S1 and normal S2; no murmur Extremities: no edema Gastrointestinal (Abdomen): Inspection/Auscultation: + abdomen distended (Minimally distended) and normal bowel sounds Percussion/Palpation: + abdomen tender (Minimally tender) and abdomen soft Musculoskeletal: Movement of the hip joint is minimally painful Neurologic: Alert and awake. Pleasantly confused. Hepatic flap is present. Generally weak Lymphatic: no cervical or axillary lymphadenopathy Results & Data Results & Data Vital Signs (Past 12 Hours) Vital Signs Temp Pulse Pulse Resp BP BP Pulse Ox 05/14/23 09:00 16 143/78 H 99 05/14/23 08:53 71 20 123/70 99 05/14/23 08:06 67 20 98 05/14/23 08:06 98 05/14/23 07:27 67 05/14/23 06:44 36.8 C 80 18 116/71 98 O2 Del Method 05/14/23 09:00 05/14/23 08:53 Room Air 05/14/23 08:06 Room Air 05/14/23 08:06 Room Air 05/14/23 07:27 05/14/23 06:44 Room Air Laboratory Results Short CBC 05/14/23 Range/Units 07:39 WBC 4.32 L (4.8-10.8) K/ul Hgb 12.7 L (14.0-18.0) g/dl Hct 38.2 L (42.0-52.0) % Plt Count 43 L (130-400) K/uL BMP 05/14/23 07:39 Sodium 140 Potassium 3.6 Chloride 114 H Carbon Dioxide 20 L BUN 17 Creatinine 0.81 Glucose 98 Calcium 9.2 Cardiac Enzymes 05/14/23 Range/Units 07:39 Total Creatine Kinase 56 (30-223) U/L Liver Function 05/14/23 Range/Units 07:39 Total Bilirubin 2.5 H (0.2-1.0) mg/dl AST 30 (13-39) U/L ALT 18 (7-52) U/L Alkaline Phosphatase 97 (34-104) U/L Albumin 3.6 (3.4-5.0) gm/dl Urine 05/14/23 Range/Units 07:58 Urine Color Dark Yellow Urine Appearance Clear (Clear) Urine pH 5.5 (4.5-7.5) Ur Specific [place] 1.035 H (1.000-1.030) Urine Protein Negative (Negative) Urine Glucose (UA) Negative (Negative) Medications Administered Current Inpatient Medications Lactulose (Lactulose Syrup 30 Gm/45 Ml Udp) 30 gm PO NOW STA Stop: 05/14/23 10:27 Code Status & VTE Plan VTE Prophylaxis Plan VTE Prophylaxis will be ordered: Yes
[2023-05-14] MEDS: LACTULOSE SYRUP 30 GM/45 ML UDP PO STA (11:14)
[2023-05-14] MEDS: ACETAMINOPHEN 1,000 MG/100 ML VIAL IV STA (11:14)
--- NOTE | 2023-05-14 11:17 | CT Scan Report ---
CT OF THE ABDOMEN AND PELVIS WITHOUT CONTRAST CLINICAL HISTORY: Abdominal pain. Evaluate for colitis. COMPARISON STUDY: CT of the abdomen and pelvis on January 11, 2023. TECHNIQUE: Axial images of the abdomen and pelvis were obtained without IV contrast. Images were revi ewed in the axial, sagittal, and coronal planes. Automated exposure control was utilized for the napole[place] dy. A dose lowering technique was utilized adhering to the principles of ALARA. FINDINGS: Lung bases are unremarkable. 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 No pneumatosis, free air or portal v enous gas is present. The liver is cirrhotic. Hypodense hepatic lesions are unchanged. These favor cy sts. There is no biliary ductal dilatation status post cholecystectomy. There are calcified granuloma s within the spleen. Splenomegaly is unchanged. Abdominal collaterals are similar to prior exam. Trac e stranding and fluid within the right paracolic gutter is present. There is no evidence for a bowel obstruction. There is mild wall thickening with minimal adjacent stranding of the ascending colon. Th is is decreased when compared to CT of January 11, 2023. No additional sites of bowel wall thickening are identified on unenhanced exam. Left hip arthroplasty is present. Avascular necrosis of the right femoral head is again noted. Infrarenal abdominal aorta is ectatic, measuring 2.8 cm. IMPRESSION: 1. Mild wall thickening with minimal adjacent stranding and fluid of the ascending colon, decreased i n degree since CT of January 11, 2023. This is likely related to portal hypertension however a mild n onspecific colitis could appear similar. 2. Cirrhosis with manifestations of portal hypertension including splenomegaly, varices formation and trace pelvic ascites. 3. No bowel obstruction. ACT 112: Negative or not required by law. Electronically signed by: Hira Cordova M.D. 05/14/2023 11:15 AM
[2023-05-14] MEDS: HYDROmorphone INJ 0.5 MG/0.5 ML SYR IV STA (13:27)
[2023-05-14] MEDS ORDERED: ACETAMINOPHEN 1,000 MG/100 ML VIAL IV PRN (15:10)
[2023-05-14] MEDS ORDERED: TRIAMCINOLONE ACET 0.1% CR 15 GM TUBE TOP PRN (16:30)
[2023-05-14] MEDS ORDERED: DICLOFENAC SOD 1% GEL 100 GM TUBE EXT PRN (16:30)
--- NOTE | 2023-05-14 16:54 | Electrocardiogram Report ---
Test Reason : Blood Pressure : / mmHG Vent. Rate : 068 BPM Atrial Rate : 068 BPM P-R Int : 170 ms QRS Dur : 086 ms QT Int : 446 ms P-R-T Axes : 038 025 021 degrees QTc Int : 474 ms Normal sinus rhythm Normal ECG When compared with ECG of 11-MAY-2023 19:32, No significant change was found Confirmed by Cachorro Mendoza ([id number]) on 05/14/2023 4:54:31 PM Referred By: REFERRED SELF Confirmed By:Diaz Mendoza
[2023-05-14] MEDS: Patient's HEIGHT &/or WEIGHT Needed SCH (16:59)
[2023-05-14] MEDS: oxyCODONE HCL IR 5 MG TAB (IMMEDIATE RELEASE) PO PRN (17:36)
[2023-05-14] MEDS ORDERED: VITAMINS A AND D PO SCH (21:00)
[2023-05-14] MEDS: LACTULOSE SYRUP 20 GM/30 ML UDC PO SCH (21:44)
[2023-05-14] MEDS: ATORVASTATIN 20 MG TAB PO SCH (21:44)
[2023-05-14] MEDS: rifAXIMin 550 MG TABLET PO SCH (21:45)
[2023-05-14] MEDS: PANTOprazole 40 MG TAB PO SCH (21:47)
[2023-05-14] MEDS: MAGNESIUM OXIDE 400 MG TAB PO SCH (21:47)
[2023-05-15 07:10] LABS: Basophils # (auto) 0.04 K/uL (0.00-0.20); Basophils % (auto) 0.9 %; Eosinophils # (auto) 0.45 K/uL (0.00-0.50); Eosinophils % (auto) 10.3 %; Hematocrit (blood only) 35.7 % (42.0-52.0); Immature Granulocytes # (auto) 0.01 K/uL (0.01-0.20); Immature Granulocytes % (auto) 0.2 %; Lymphocytes # (auto) 1.22 K/uL (1.20-3.40); Mean Corpuscular Hemoglobin 34.2 pg (25.0-34.0); Mean Corpuscular Hgb Conc 33.6 g/dL (32.0-36.0); Mean Corpuscular Volume 101.7 fL (80.0-100.0); Mean Platelet Volume 11.9 fL (9.4-12.4); Monocytes # (auto) 0.57 K/uL (0.11-0.59); Monocytes % (auto) 13.1 %; Neutrophils # (auto) 2.07 K/uL (1.40-6.50); Neutrophils % (auto) 47.5 %; Platelet Count 40 K/uL (130-400); RDW Coefficient of Variation 15.7 % (11.5-14.5); RDW Standard Deviation 58.9 fL (36.4-46.3); Red Blood Count 3.51 M/uL (4.70-6.10); White Blood Count 4.36 K/ul (4.8-10.8)
[2023-05-15 07:44] LABS: Albumin Globulin Ratio 1.2 (0.9-2); BUN Creatinine Ratio 19.1 (10-20); Bilirubin,Total 2.5 mg/dl (0.2-1.0); Calcium 8.6 mg/dl (8.6-10.3); Creatinine Clr Calc Pharmacy 118.4 ml/min; Est GFR (Non-African American) 105.3 ml/min; Globulin 2.5 gm/dl (2.5-4.0); Magnesium 1.5 mg/dl (1.7-2.4); Phosphorus 3.7 mg/dl (2.5-4.9); Potassium 3.7 mmol/L (3.5-5.1); Total Protein 5.5 gm/dl (6.0-8.3)
[2023-05-15] MEDS: FERROUS SULFATE 325 MG TAB PO SCH (08:17)
[2023-05-15] MEDS: GABAPENTIN 100 MG CAP PO SCH (08:18)
[2023-05-15] MEDS: FLUoxetine HCL 10 MG CAP PO SCH (08:18)
--- NOTE | 2023-05-15 12:47 | Gastrointestinal Consultation ---
Date of Consultation May 15, 2023 Assessment & Plan (1) Confusion: Though pt denies any recent confusion, the H&P and ED records say that he had some confusion. He may have had some mild hepatic encephalopathy though he doesn't show any evidence of it at this time. Plan Pain management has been an issue for Mr. Liu. He should not be given narcotics as they have triggered hep enceph (or at least mild confusion) in the past. Has seen pain management previously. Would continue to work on pain management strategies w PCP. Regular consistency 2 Gm sodium diet. No GI/hepatology indication for antibiotics. Minimal ascites - so no tap needed. Continue furosemide 40/spironolactone 25 QAM. For prevention of Hep enceph continue Rifaximin 550mg BID and titrate lactulose to affect 3 loose BMs/day. GI will sign off. NO Gi contraindication to discharge. Continue OP GI/hepatology f/u. Supervising Physician Co-Signing Physician Notes I agree with pe and plan as documented, no current he - he is oriented to person/place/and time. Agree with plan as documented. History of Present Illness Reason for Consultation: Hepatic Encephalopathy Requesting Physician: Dr. Mock Attending Physician: Billy Mock MD History of Present Illness Mr. Mauro Liu is a 57 yr old male pt of Dr. Paz w a hx of GERD, SBO (post exp lap in 2012) who is well known to me as I see him in the GI clinic for ETOH cirrhosis, (abstaining for years, has seen liver transplant, not listed due to low MELD). Cirrhosis is complicated by prior hep encephalopathy on lactulose and ascites managed w diuretics. He tells me that he presented to the ED early yesterday because [place] [facility] [place], that he was unable to sleep due to pain for days and that he needed a dose of pain meds. He further states that he received one dose of narcotics has had relief in the pain and would like to go home. The ED recoreds and H&P state that he was increasingly confused for a few days.He certainly does have a hx of mild confusion when he hasn't been sleeping well due to pain. This morning, he is awake, alert, oriented to time/place, able to tell me the date/year, who the president is and give me some details related to his hip surgery last month. He is at his baseline mental status. No asterixes. He denies any recent confusion. He is hemodynamically stable. Though imaging says ascites, on exam it is minimal. Allergies Allergy/AdvReac Type Severity Reaction Status Date / Time No Known Allergies Allergy Verified 05/14/23 08:56 Home Medications Medication Instructions Recorded Confirmed Type atorvastatin 20 mg tablet 20 mg PO HS 01/18/18 05/14/23 History pantoprazole 40 mg tablet,delayed 40 mg PO BID 07/26/18 05/14/23 History release lactulose 10 gram/15 mL oral 20 g PO TID 11/24/21 05/14/23 History solution magnesium oxide 400 mg (241.3 mg 400 mg PO AMHS 11/24/21 05/14/23 History magnesium) tablet furosemide 40 mg tablet 40 mg PO DAILY 02/23/22 05/14/23 History gabapentin 100 mg capsule 100 mg PO QAM 02/23/22 05/14/23 History rifaximin 550 mg tablet (Xifaxan) 550 mg PO BID 02/23/22 05/14/23 History fluoxetine 10 mg capsule 10 mg PO QAM 01/11/23 05/14/23 History spironolactone 25 mg tablet 25 mg PO DAILY 01/11/23 05/14/23 History diclofenac sodium 1 % topical gel 2 g topical BID PRN Pain 05/11/23 05/14/23 History ferrous sulfate 325 mg (65 mg 325 mg PO DAILY 05/11/23 05/14/23 History iron) tablet (iron) oxycodone 5 mg tablet 5 mg PO Q6H PRN Pain 05/11/23 05/14/23 History trazodone 50 mg tablet 100 mg PO HS 05/11/23 05/14/23 History triamcinolone acetonide 0.1 % 1 applic topical BID PRN AFFECTED 05/11/23 05/14/23 History topical cream AREA vitamins A and D 2 cap PO BID 05/11/23 05/14/23 History Patient History Medical History Depression History of ascites Acute alteration in mental status Cirrhosis of liver UTI (urinary tract infection) Thrombocytopenia Nausea Abnormal PFT Acid reflux HLD (hyperlipidemia) HTN (hypertension) Elevated LFTs GERD (gastroesophageal reflux disease) Hypertension Hyperlipidemia H/O angioedema ongoing, follows with allergy Surgical History History of esophagogastroduodenoscopy (EGD) History of colonoscopy History of bowel resection 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 History of appendectomy History of tooth extraction History of appendectomy Family History Father Hearing loss Hypertension Stroke Heart disease Other No pertinent family history in first degree relatives Denies family history of No family history of adverse response to anesthesia No family history of bleeding disorder Allergies Asthma Social History Smoking Status: Unknown if ever smoked Tobacco Type: Cigarettes Cigarettes Per Day: 1-2; Second Hand Exposure: No; Do You Dip or Chew Tobacco: No; Hx Alcohol Use: No Hx Substance Use: No Preferred Language: Afghan Communication Ability: Effective Copy Camera Operator Required: No Beliefs That Will Affect Care: None marital status: Current Living Situation: Spouse Current Living Situation Comment: LIVES WITH GIRLFRIEND 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 Gen: Denies weakness, fevers, weight loss Eyes: No eye redness, or pain, no recent vision changes Resp: No SOB, no cough Cardio: No palpitations/irregular beats, no chest pain GI: No abdominal pain, no nausea/vomiting : Denies pain on urination Skin: No jaundice, itching or new rashes Physical Exam Constitutional: WD/WN, vitals as above Eyes: PERRL, conjunctivae normal, anicteric sclerae ENMT: external ear and nose normal, oropharynx normal Neck: trachea midline, no thyromegaly Respiratory: normal respiratory effort, lungs clear to auscultation Cardiovascular: RRR, 2/6 systolic murmur, 1+ bilat lower leg edema, non pitting Gastrointestinal (Abdomen): soft, non tender, extensive scarring from prior abd surgery, minimal ascites Musculoskeletal: no cyanosis or clubbing, extremities motor strength 5/5 Skin: mild jaundice, no rashes Neurologic: PERRL, EOMI, accommodation nl, no face palsy, no dysarthria no asterixes Psychiatric: A+Ox3, euthymic affect Lymphatic: no cervical or axillary lymphadenopathy Results & Data Vital Signs (Past 12 Hours) Vital Signs Temp Pulse Pulse Pulse Resp BP BP 05/15/23 11:58 37.1 C 102 H 16 120/66 05/15/23 10:00 67 14 05/15/23 09:39 71 18 05/15/23 09:39 120/85 05/15/23 09:25 80 15 90/50 L 05/15/23 09:24 74 17 05/15/23 08:00 146/94 H 05/15/23 08:00 74 14 05/15/23 07:47 72 05/15/23 07:00 142/73 H 05/15/23 07:00 77 12 05/15/23 06:00 71 13 138/79 05/15/23 05:00 81 13 127/74 05/15/23 04:00 72 12 118/69 05/15/23 03:10 65 15 133/69 05/15/23 01:22 05/15/23 01:00 68 18 133/70 Pulse Ox O2 Del Method 05/15/23 11:58 95 Room Air 05/15/23 10:00 05/15/23 09:39 98 05/15/23 09:39 05/15/23 09:25 96 Room Air 05/15/23 09:24 97 05/15/23 08:00 05/15/23 08:00 94 05/15/23 07:47 05/15/23 07:00 05/15/23 07:00 94 05/15/23 06:00 95 Room Air 05/15/23 05:00 94 Room Air 05/15/23 04:00 94 Room Air 05/15/23 03:10 97 Room Air 05/15/23 01:22 Room Air 05/15/23 01:00 98 Room Air Laboratory Results WBC 4, Hb 12, Hct 35, Plts 40, Na 140, K 3.7, Cl 114, CO2 22, BUN 13, Cr 0.6. T Bili 2.5, AST 25, ALT 16, Alk PHos 80, Plts 40. Ammonia yesterday 58. Diagnostic Findings Non contrast CTAP 05/14/23: 1. Mild wall thickening with minimal adjacent stranding and fluid of the ascending colon, decreased in degree since CT of January 11, 2023. This is likely related to portal hypertension however a mild nonspecific colitis could appear similar. 2. Cirrhosis with manifestations of portal hypertension including splenomegaly, varices formation and trace pelvic ascites. 3. No bowel obstruction.
--- NOTE | 2023-05-15 17:20 | Discharge Summary ---
Discharge Summary Date of Service May 15, 2023 Notes For Next Care Provider Medication Changes From Visit None Admission HPI Per Admitting Provider Is a 57-year-old male with significant past medical history of cirrhosis with history of hepatic and cephalopathy, esophageal varices, hypertension, hyperlipidemia, history of TIA and GERD apparently has been complaining of conf usion since Monday. The confusion has been getting worse as of this morning and he was brought into the emergency room. Denies any abdominal distention or bloating, no pain in the abdomen, no nausea and or vomiting or diarrhea, no problem with urine or bowel habit, no fever and or chills, and no increasing swelling of the legs. He has had left hip replacement on 10 April and does have some pain in the hips. He denies any significant neurological symptoms. He has been taking his medications regularly. His last hepatic and cephalopathy happened to be in January of last year. ER he remains hemodynamically stable and is pleasantly confused has some discomfort due to nonspecific pain in the hip. But no significant abdominal pain. His ammonia level is normal. he was admitted to medical floor for observation Admission Exam Per Admitting Provider Physical Exam: Lying in bed with some nonspecific distress Constitutional: well developed, well nourished and + ill appearing Eyes: PERRL, conjunctivae normal, anicteric sclerae ENMT: external ear and nose normal, oropharynx normal Neck: trachea midline, no thyromegaly Respiratory: no respiratory distress Auscultation: lungs clear to auscultation bilaterally Cardiovascular: Rate/Rhythm: regular rate and regular rhythm; not tachycardic Heart Sounds: normal S1 and normal S2; no murmur Extremities: no edema Gastrointestinal (Abdomen): Inspection/Auscultation: + abdomen distended (Minimally distended) and normal bowel sounds Percussion/Palpation: + abdomen tender (Minimally tender) and abdomen soft Musculoskeletal: Movement of the hip joint is minimally painful Neurologic: Alert and awake. Pleasantly confused. Hepatic flap is present. Generally weak Lymphatic: no cervical or axillary lymphadenopathy Principal Dx & Hospital Course #1 = Principal Diagnosis (1) Acute hepatic encephalopathy: Increasing confusion since Monday last Has hepatic flap and acutely confused No definite infection-will get urine and blood cultures Will get a CT scan of the abdomen and pelvis Recent hip [id number] of the left hip on 05/12 unremarkable Will continue lactulose to have bowel movement 2-3 times a day and other medications Observe in medical telemetry unit 05/15 Mental status back to baseline Patient admits not taking lactulose regularly GI service consulted, no further recommendations at this point Continue lactulose and rifaximin daily No signs of infection CT abdomen and pelvis: No acute process Strongly emphasized to patient to take lactulose and rifaximin daily to prevent encephalopathy Patient verbalized understanding and agreement (2) Acute alteration in mental status: As above (3) Alcoholic cirrhosis: History of alcoholic cirrhosis with esophageal varices (4) HTN (hypertension): Controlled now (5) GERD (gastroesophageal reflux disease): Continue PPI (6) Thrombocytopenia: Secondary to cirrhosis Other significant medical conditions remain stable as below Hypertension Hyperlipidemia Esophageal varices TIA Plan Discharge to home PCP follow-up in 1 week GI follow-up as scheduled Discharge Exam General- oriented x 3, not in distress, speaks in sentences with no effort or accessory muscle use Eyes- anicteric Neck- no JVD Lungs- clear breath sounds bilaterally, no rales/wheezes Heart- normal rate, regular rhythm; no murmurs Abdomen- normal bowel sounds, nondistended, soft, nontender Extremities- no pretibial edema, no calf tenderness Neuro- alert, oriented x 3; no gross focal neurologic deficits Skin- warm & dry Updated Medication List Medication Instructions Recorded Confirmed Type atorvastatin 20 mg tablet 20 mg PO HS 01/18/18 05/14/23 History pantoprazole 40 mg tablet,delayed 40 mg PO BID 07/26/18 05/14/23 History release lactulose 10 gram/15 mL oral 20 g PO TID 11/24/21 05/14/23 History solution magnesium oxide 400 mg (241.3 mg 400 mg PO AMHS 11/24/21 05/14/23 History magnesium) tablet furosemide 40 mg tablet 40 mg PO DAILY 02/23/22 05/14/23 History gabapentin 100 mg capsule 100 mg PO QAM 02/23/22 05/14/23 History rifaximin 550 mg tablet (Xifaxan) 550 mg PO BID 02/23/22 05/14/23 History fluoxetine 10 mg capsule 10 mg PO QAM 01/11/23 05/14/23 History spironolactone 25 mg tablet 25 mg PO DAILY 01/11/23 05/14/23 History diclofenac sodium 1 % topical gel 2 g topical BID PRN Pain 05/11/23 05/14/23 History ferrous sulfate 325 mg (65 mg 325 mg PO DAILY 05/11/23 05/14/23 History iron) tablet (iron) oxycodone 5 mg tablet 5 mg PO Q6H PRN Pain 05/11/23 05/14/23 History trazodone 50 mg tablet 100 mg PO HS 05/11/23 05/14/23 History triamcinolone acetonide 0.1 % 1 applic topical BID PRN AFFECTED 05/11/23 05/14/23 History topical cream AREA vitamins A and D 2 cap PO BID 05/11/23 05/14/23 History Hospital Stay Data Consultations 05/14/23 10:06 ED Decision to Admit Stat 05/15/23 08:04 Consult Gastroenterology Routine Diagnostic Imagining Performed Laboratory Results WBC 4.36 K/ul (4.8-10.8) L 05/15/23 06:36 RBC 3.51 M/uL (4.70-6.10) L 05/15/23 06:36 Hgb 12.0 g/dl (14.0-18.0) L 05/15/23 06:36 POC Hgb 12.2 g/dl (14.0-18.0) L 05/14/23 07:35 Hct 35.7 % (42.0-52.0) L 05/15/23 06:36 POC Hct 36 % (42-52) L 05/14/23 07:35 MCV 101.7 fL (80.0-100.0) H 05/15/23 06:36 MCH 34.2 pg (25.0-34.0) H 05/15/23 06:36 MCHC 33.6 g/dL (32.0-36.0) 05/15/23 06:36 RDW Std Deviation 58.9 fL (36.4-46.3) H 05/15/23 06:36 RDW Coeff of Fabiola 15.7 % (11.5-14.5) H 05/15/23 06:36 Plt Count 40 K/uL (130-400) L 05/15/23 06:36 MPV 11.9 fL (9.4-12.4) 05/15/23 06:36 Immature Gran % (Auto) 0.2 % 05/15/23 06:36 Neut % (Auto) 47.5 % 05/15/23 06:36 Lymph % (Auto) 28.0 % 05/15/23 06:36 Shannon % (Auto) 13.1 % 05/15/23 06:36 Eos % (Auto) 10.3 % 05/15/23 06:36 Baso % (Auto) 0.9 % 05/15/23 06:36 Neut # (Auto) 2.07 K/uL (1.40-6.50) 05/15/23 06:36 Lymph # (Auto) 1.22 K/uL (1.20-3.40) 05/15/23 06:36 Shannon # (Auto) 0.57 K/uL (0.11-0.59) 05/15/23 06:36 Eos # (Auto) 0.45 K/uL (0.00-0.50) 05/15/23 06:36 Baso # (Auto) 0.04 K/uL (0.00-0.20) 05/15/23 06:36 Immature Gran # (Auto) 0.01 K/uL (0.01-0.20) 05/15/23 06:36 PT 14.1 Seconds (9.0-12.0) H 05/14/23 07:39 INR 1.3 (0.9-1.1) H 05/14/23 07:39 POC Sodium 141 mmol/L (135-144) 05/14/23 07:35 Sodium 140 mmol/L (136-145) 05/15/23 06:36 POC Potassium 4.9 mmol/L (3.3-5.0) 05/14/23 07:35 Potassium 3.7 mmol/L (3.5-5.1) 05/15/23 06:36 POC Chloride 114 mmol/L (101-112) H 05/14/23 07:35 Chloride 114 mmol/L (98-107) H 05/15/23 06:36 Carbon Dioxide 22 mmol/L (21-32) 05/15/23 06:36 POC Total CO2 19 mmol/L (24-31) L 05/14/23 07:35 Anion Gap 4 (3-11) 05/15/23 06:36 POC Anion Gap 14.0 mmol/L (16-25) L 05/14/23 07:35 POC BUN 21 mg/dl (7-18) H 05/14/23 07:35 BUN 13 mg/dl (6-23) 05/15/23 06:36 Creatinine 0.68 mg/dl (0.6-1.4) 05/15/23 06:36 POC Creatinine 0.7 mg/dl (0.6-1.3) 05/14/23 07:35 Est Cr Clr Drug Dosing 118.4 ml/min 05/15/23 06:36 Est GFR ( Amer) 122.0 ml/min 05/15/23 06:36 Est GFR (Non-Af Amer) 105.3 ml/min 05/15/23 06:36 BUN/Creatinine Ratio 19.1 (10-20) 05/15/23 06:36 Glucose 89 mg/dl (70-99(Fasting)) 05/15/23 06:36 POC Glucose (other) 99 mg/dl (70-99) 05/14/23 07:35 Calcium 8.6 mg/dl (8.6-10.3) 05/15/23 06:36 POC Ioniz Calcium Doug 1.16 mmol/l (1.12-1.32) 05/14/23 07:35 Phosphorus 3.7 mg/dl (2.5-4.9) 05/15/23 06:36 Magnesium 1.5 mg/dl (1.7-2.4) L 05/15/23 06:36 Total Bilirubin 2.5 mg/dl (0.2-1.0) H 05/15/23 06:36 AST 25 U/L (13-39) 05/15/23 06:36 ALT 16 U/L (7-52) 05/15/23 06:36 Alkaline Phosphatase 80 U/L (34-104) 05/15/23 06:36 Ammonia 58.0 umol/L (18-72) 05/14/23 07:50 Total Creatine Kinase 56 U/L (30-223) 05/14/23 07:39 Troponin I High Sens 4.5 pg/ml (0-20) 05/14/23 07:39 Total Protein 5.5 gm/dl (6.0-8.3) L 05/15/23 06:36 Albumin 3.0 gm/dl (3.4-5.0) L 05/15/23 06:36 Globulin 2.5 gm/dl (2.5-4.0) 05/15/23 06:36 Albumin/Globulin Ratio 1.2 (0.9-2) 05/15/23 06:36 TSH 1.633 uIu/ml (0.300-4.500) 05/14/23 07:39 Urine Color Dark Yellow 05/14/23 07:58 Urine Appearance Clear (Clear) 05/14/23 07:58 Urine pH 5.5 (4.5-7.5) 05/14/23 07:58 Ur Specific [place] 1.035 (1.000-1.030) H 05/14/23 07:58 Urine Protein Negative (Negative) 05/14/23 07:58 Urine Glucose (UA) Negative (Negative) 05/14/23 07:58 Urine Ketones Trace (Negative) H 05/14/23 07:58 Urine Blood 3+ (Negative) H 05/14/23 07:58 Urine Nitrite Negative (Negative) 05/14/23 07:58 Urine Bilirubin 1+ (Negative) H 05/14/23 07:58 Urine Urobilinogen Negative (Negative) 05/14/23 07:58 Ur Leukocyte Esterase Negative (Negative) 05/14/23 07:58 Urine WBC (Auto) 1-5 /hpf (0-5) 05/14/23 07:58 Urine RBC (Auto) 10-30 /hpf (0-4) H 05/14/23 07:58 U Hyaline Cast (Auto) 1-5 /lpf (0-5) 05/14/23 07:58 U Epithel Cells (Auto) 5-10 /lpf (0-5) H 05/14/23 07:58 Urine Bacteria (Auto) Negative (Negative) 05/14/23 07:58 Adenovirus (PCR) Not Detected (NotDetected) 05/14/23 07:30 B. pertussis DNA (PCR) Not Detected (NotDetected) 05/14/23 07:30 B.parapertussis DNA PCR Not Detected (NotDetected) 05/14/23 07:30 C. pneumoniae DNA (PCR) Not Detected (NotDetected) 05/14/23 07:30 Coronavirus OC43 (PCR) Not Detected (NotDetected) 05/14/23 07:30 Coronavirus HKU1 (PCR) Not Detected (NotDetected) 05/14/23 07:30 Coronavirus 229E (PCR) Not Detected (NotDetected) 05/14/23 07:30 SARS-CoV-2 (PCR) Not Detected (NotDetected) 05/14/23 07:30 Coronavirus NL63 (PCR) Not Detected (NotDetected) 05/14/23 07:30 Human Metapneumovir PCR Not Detected (NotDetected) 05/14/23 07:30 Influenza Type A (PCR) Not Detected (NotDetected) 05/14/23 07:30 Influenza Type B (PCR) Not Detected (NotDetected) 05/14/23 07:30 M. pneumoniae (PCR) Not Detected (NotDetected) 05/14/23 07:30 Parainfluenza 1 (PCR) Not Detected (NotDetected) 05/14/23 07:30 Parainfluenza 2 (PCR) Not Detected (NotDetected) 05/14/23 07:30 Parainfluenza 3 (PCR) Not Detected (NotDetected) 05/14/23 07:30 Parainfluenza 4 (PCR) Not Detected (NotDetected) 05/14/23 07:30 RSV (PCR) Not Detected (NotDetected) 05/14/23 07:30 Entero/Rhino (PCR) Not Detected (NotDetected) 05/14/23 07:[address] 05/14/23 07:19 CT OF THE HEAD WITHOUT CONTRAST CLINICAL HISTORY: Confusion COMPARISON STUDY: Head CT December 20, 2022. MRI of the brain February 23, 2022. CT DOSE: 625.8 mGy.cm TECHNIQUE: Helical axial images of the head were obtained without IV contrast. Automated exposure control was utilized for the study. A dose lowering techni que was utilized adhering to the principles of ALARA. FINDINGS: No acute intracranial hemorrhage, midline shift or mass effect is present. The ventricular system is unremarkable. The basal cisterns are patent. No extra-axial collections are present. There are no findings to suggest acute dural sinus thrombosis or acute territorial infarct. No significant calvarial abnormalities are present. Visualized portions of the sinuses and mastoid air cells are clear. IMPRESSION: No acute intracranial findings. ACT 112: Negative or not required by law. Electronically signed by: Hira Cordova M.D. 05/14/2023 8:18 AM Venous Doppler Study 05/14/23 07:19 BILATERAL LOWER EXTREMITY VENOUS DOPPLER CLINICAL HISTORY: BLE pain, 1 mo s/p L CECILIO COMPARISON STUDY: Left lower extremity venous Doppler ultrasound May 12, 2023. TECHNIQUE: Sonography of the deep venous system of the bilateral lower extremities was performed. Compression and augmentation were evaluated. FINDINGS: The bilateral common femoral, superficial femoral and popliteal veins were compressible. Augmentation was normal. Flow was shown within the deep calf vessels. IMPRESSION: No evidence of deep venous thrombus within the bilateral lower extremities. ACT 112: Negative or not required by law. Electronically signed by: Hira Cordova M.D. 05/14/2023 8:49 AM Chest X-Ray 05/14/23 07:20 XR chest 1V portable CLINICAL HISTORY: weakness COMPARISON STUDY: Chest radiograph and chest CT May 11, 2023. FINDINGS: Lung volumes are at the lower limits of normal. Lungs are clear. There is no pneumothorax or pleural effusion. Mild cardiomegaly is unchanged. Mediastinal contours are normal. There is pulmonary vascular congestion. IMPRESSION: Pulmonary vascular congestion, possibly technical, without overt pulmonary edema. ACT 112: Negative or not required by law. Electronically signed by: Hira Cordova M.D. 05/14/2023 9:13 AM Abdomen/Pelvis CT 05/14/23 10:47 CT OF THE ABDOMEN AND PELVIS WITHOUT CONTRAST CLINICAL HISTORY: Abdominal pain. Evaluate for colitis. COMPARISON STUDY: CT of the abdomen and pelvis on January 11, 2023. TECHNIQUE: Axial images of the abdomen and pelvis were obtained without IV contrast. Images were reviewed in the axial, sagittal, and coronal planes. Automated exposure control was utilized for the study. A dose lowering technique was utilized adhering to the principles of ALARA. FINDINGS: Lung bases are unremarkable. 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 No pneumatosis, free air or portal venous gas is present. The liver is cirrhotic. Hypodense hepatic lesions are unchanged. These favor cysts. There is no biliary ductal dilatation status post cholecystectomy. There are calcified granulomas within the spleen. Splenomegaly is unchanged. Abdominal collaterals are similar to prior exam. Trace stranding and fluid within the right paracolic gutter is present. There is no evidence for a bowel obstruction. There is mild wall thickening with minimal adjacent stranding of the ascending colon. This is decreased when compared to CT of January 11, 2023. No additional sites of bowel wall thickening are identified on unenhanced exam. Left hip arthroplasty is present. Avascular necrosis of the right femoral head is again noted. Infrarenal abdominal aorta is ectatic, measuring 2.8 cm. IMPRESSION: 1. Mild wall thickening with minimal adjacent stranding and fluid of the ascending colon, decreased in degree since CT of January 11, 2023. This is likely related to portal hypertension however a mild nonspecific colitis could appear similar. 2. Cirrhosis with manifestations of portal hypertension including splenomegaly, varices formation and trace pelvic ascites. 3. No bowel obstruction. ACT 112: Negative or not required by law. Electronically signed by: Hira Cordova M.D. 05/14/2023 11:15 AM 05/14/23 07:19 CT head/brain wo con Stat US venous doppler LE BI Stat 05/14/23 10:47 CT Abd and Pelvis [CT abd pelvis wo con] Stat Pending Results Patient Have Any Pending Studies at Discharge: No Discharge Instructions Given to Patient (Per Discharging Provider) PLEASE MAKE SURE TO TAKE LACTULOSE AND RIFAXIMIN EVERY DAY. GOAL BOWEL MOVEMENT IS 2-3X/DAY. TRY TO GRADUALLY WEAN OFF OXYCODONE USE THIS CAN CONTRIBUTE TO CONFUSION. PLEASE CALL YOUR PRIMARY CARE PHYSICIAN OR RETURN TO THE ER IF WITH WORSENING OF SYMPTOMS, INCLUDING ABDOMINAL PAIN, FEVER/CHILLS, ABDOMINAL DISTENTION, NAUSEA/VOMITING, CONFUSION, ETC FOLLOW UP WITH PRIMARY CARE PHYSICIAN IN 1 WEEK. Total Time Total Time Spent Total Time Spent (In Minutes): >30 minutes
== END 2023-05-15 16:12 | disposition home or self-care (01) ==
LOC: ED 06:34 → EDINP 06:34 → SUATTDRO 10:26 → 2W 16:30

== ENCOUNTER 2023-06-25 10:23 | Inpatient (IN) ==
--- OUTSIDE RECORDS SUMMARY | 2023-06-25 10:29 | External Medical Summary | Summary of Care ---
Author Name Unknown Organization [facility] Address [address] [place] [address] Phone [phone] Care Team Providers Care Halal Butcher Name Role Phone Toby Paz MD Primary Care Provider [phone] Reason for Visit * Reason Onset Date Comments Encounter Created in Error 06/14/2023 Encounter Details Date Type Department Care Team (Late st Contact Info) Description 06/14/2023 Telephone [facility] [address] [place] [address] Toby Paz MD [address] [place] [address] Encounter Created in Error Allergies Active Allergy Reactions Criticality Noted Date Comments Other Allergy (See Comments) Anaphylaxis High 06/21/2018 Bee stings- swelling documented as of this encounter (statuses as of 06/14/2023) Medications Medication Sig Dispensed Refills Start Date [...] 2 03/29/2023 Active Vitamin A & D [address] UNIT Oral Tablet Take by mouth. 0 Active traMADol HCl 50 MG Oral Tablet (Ultram) Take 1 Tablet by mouth every 8 hours as needed for Pain, Moderate. 0 Active Triamcinolone Acetonide 0.1 % External Cream (Aristocort)Indicati ons:Psoriasiform eczema Apply topically to affected area 2 times a day. To affected area. 60 g 5 05/10/2023 Active traMADol HCl 50 MG Oral Tablet (Ultram)Indications: Avascular necrosis of bone of left hip (HCC) Take 1 Tablet by mouth every 8 hours as needed for Pain, Severe. 30 Tablet 0 05/16/2023 Active Hospital, Clinic, or Other Facility Administered Medication Ordered Dose Route Frequency Start Date End Date Status albuterol sulfate (PROVENTIL) (2.5 MG/3ML) 0.083% inhalation solution 2.5 mgIndications:SOB (shortness of breath) 2.5 mg NEBULIZER Q4H PRN 05/10/2018 Act guzman documented as of this encounter (statuses as of 06/14/2023) Active Problems Problem Noted Date Diagnosed Date S/P hip replacement, left 05/22/2023 Esophageal varices without bleeding 05/22/2023 Avascular necrosis of bone of left hip Hypoproliferative anemia 05/10/2023 DDD (degenerative disc disease), lumbosacral 10/2023 Other intervertebral disc displacement, lumbosac ral region 05/10/2023 Major depressive disorder with single episode Age-related nuclear cataract, bilateral 02/07/20 AAA (abdominal aortic aneurysm) 10/25/2022 Overview: 3.0 cm AAA noted on MRI Liver 10/18/22 Iron deficiency anemia due to chronic blood loss 07/01/2022 Anemia in other chronic diseases classified else where 06/24/2022 Transient ischemic attack 06/17/2021 Cirrhosis of liver 06/17/2021 History of appendectomy 06/17/2021 Hx SBO 06/17/2021 Subungual hematoma of finger of left [...] as of this encounter (statuses as of 06/14/2023) Resolved Problems Problem Noted Date Diagnosed Date Resolved Date History of alcohol abuse 05/22/2023 Alcohol dependence, uncomplicated 01/17/2023 05/22/2023 Avascular necrosis of bone of hip 05/10/2022 05/22/2023 Chronic alcohol abuse 06/17/20212023 Facial swelling 06/09/2017 08/07/2019 Urticaria 06/09/2017 08/07/2019 Intestinal obstruction 05/09/201203/02 CLASSICAL MIGRAINE WITHOU ME NTION OF INTRACTABLE MIGRAINE 11/29/2001 08/07/2019 Undiagnosed cardiac murmurs 11/29/2001 03/02/2017 Overview: Not [place] on 11/29/01 documented as of this encounter (statuses as of 06/14/2023) Immunizations Name Administration Dates Next Due HEP A - Hepatitis A (Adult > 18 yrs) 06/06/2020 Pneumococcal Conjugate Vacci ne, 20-valent ([id number]) 06/24/2022 Seasonal Influenza Virus Vac cine, Unspecified Formulation 05/04/2021,01/13/2020,12/18/2018,2017,02/03/2017,12/22/2015,01/14/2015 Seasonal Influenza, PF, 6 M & above, IM , (FluLaval or Fluzone) 12/08/2022,12/14/2021,05/04/2021,2019,12/18/2018,02/01/2018,02/03/2017 Seasonal Influenza, Quadriva lent, No Preserve, IM 12/22/2015,01/14/2015 TDAP (age 10 and older)(Boostrix) 02/15/2017 documented as of this encounter Social History Tobacco Use Types Packs/Day Years Used Date Smoking Tobacco: Former Cigarettes 0.1 20 0 05/10/1995 - 05/10/2015 Passive Smoke Exposure: Never Smokeless Tobacco: [...] encounter Miscellaneous Notes * Telephone Encounter - Lori Cohen OSA - 06/14/2023 11:39 AM EDT Error documented in this encounter Plan of Treatment Upcoming Encounters Date Type Department Care Team (Late st Contact Info) Description 06/23/2023 11:15 AM EDT Imaging Radiology [address] [address] 07/27/2023 9:30 AM EDT Procedure Only Endoscopy, [facility] [address] [address] Trish Villatoro MD [address] [address] 08/07/2023 3:00 PM EDT Office Visit Gastroenterology, [facility] [address] [address] Keyanna Gordon CRNP [address] [address] 11/21/2023 5:40 PM EDT Office Visit [address] [place] [address] Toby Paz MD [address] [place] [address] Scheduled Procedures Name Priority Associated Diagnoses Date/Ti me COLONOSCOPY FLEXIBLE PROXIMAL DIAGNOSTIC Recall History of colon polyps Health Maintenance Due Date Last Done Comments Albumin/Creatinine Ratio 1982 Hepatitis B (1 of 3 - 19+ 3-dose series) 07/14/1983 Zoster Vaccines (1 of 2) 2014 COVID-19 Vaccine (1 - 2022- season) 2022 Depression Screening 04/17/2024 04/17/2023 GFR 06/05/2024 06/06/2023, 05/05, 03/31/2023, Additional history exists COLONOSCOPY-EVERY 3 YRS AGES 18-100 06/30/2024 06/30/2021, 06/30/2021, 05/30/2019, Additional history exists Diabetes Screening 06/05/2026 06/06/2023, 0 05/30/2023, 03/31/2023, Additional history exists DTaP,Tdap,and Td Vaccines (2 [...] filedocumented as of this encounter Care Teams Halal Butcher Relationship Specialty Start Date End Date Toby Paz MD [address] [place] [address] PCP - General Family Medicine 11/25/14 documented as of this encounter
--- OUTSIDE RECORDS SUMMARY | 2023-06-25 10:29 | External Medical Summary ---
Author Name Unknown Address Unknown Organization [facility] [address] [place] [address] Laboratory Report Ordering Provider Test Date Status BRENT HO 06/06/2023 09:22:51 Final Observation Date Value Abnormality Reference (Units ) Status BUN 06/06/2023 09:22:51 14 6-20 (mg/dL) Final Creatinine 06/06/2023 09:22:51 0.8 0.6-1.2 (mg/dL) Final Glomerular filtration rate/1.73 sq M.predicted [Volume Rate/Area] in Serum, Plasma or Blood by Creatinine-based formula (CKD-EPI) 06/06/2023 09:22:51 >90 >=60 (mL/min) Final eGFR is calculated based on the CKD-EPI 2020 equation SODIUM 06/06/2023 09:22:51 140 135-146 (m mol/L) Final Potassium 06/06/2023 09:22:51 4.0 3.5-5.1 (m mol/L) Final Cl 06/06/2023 09:22:51 110 Above high normal 98 -107 (mmol/L) Final CO2 06/06/2023 09:22:51 19 Below low normal 22- 32 (mmol/L) Final Anion gap 06/06/2023 09:22:51 11 7-15 (mmol /L) Final Glucose 06/06/2023 09:22:51 106 70-120 (mg /dL) Final Albumin 06/06/2023 09:22:51 3.3 Below low normal 3.8 -5.0 (g/dL) Final AST (Aspartate aminotransferase) 06/06/2023 09:22:51 43 10-50 (U/L) Fin al Alk Phos 06/06/2023 09:22:51 148 Above high normal 35 -130 (U/L) Final Bilirubin, Total 06/06/2023 09:22:51 1.4 Above high no rmal <=1.2 (mg/dL) Final Calcium 06/06/2023 09:22:51 8.9 8.4-10.2 ( mg/dL) Final Protein 06/06/2023 09:22:51 6.0 6.0-8.3 (g /dL) Final ALT (Alanine aminotransferase) 06/06/2023 09:22:51 29 10-50 (U/L) Ryder joyce Performing Location [facility] [address] [place] [address]
--- OUTSIDE RECORDS SUMMARY | 2023-06-25 10:29 | External Medical Summary | Summary of Care ---
Author Name Unknown Organization [facility] Address [address] [facility] [facility] [address] Phone [phone] Care Team Providers Care Sheetmetal Patternmaker Name Role Phone Toby Paz MD Primary Care Provider +1- [phone] Encounter Details Date Type Department Care Team (Late st Contact Info) Description 06/02/2023 Telephone [facility] [address] [place] [address] Rao Ochoa MD [address] [place] [address] Allergies Active Allergy Reactions Criticality Noted Date Comments Other Allergy (See Comments) Anaphylaxis High 06/21/2018 Bee stings- swelling documented as of this encounter (statuses as of 06/12/2023) Medications Medication Sig Dispensed Refills Start Date [...] 2 03/29/2023 Active Vitamin A & D [address] UNIT Oral Tablet Take by mouth. 0 [...] as of this encounter (statuses as of 06/12/2023) Active Problems Problem Noted Date Diagnosed Date [...] as of this encounter (statuses as of 06/12/2023) Resolved Problems Problem Noted Date Diagnosed Date Resolved Date History of alcohol abuse 05/22/2023 Alcohol dependence, uncomplicated 01/17/2023 05/22/2023 Avascular necrosis of bone of hip 05/10/2022 05/22/2023 Chronic alcohol abuse 06/17/20212023 Facial swelling 06/09/2017 08/07/2019 Urticaria 06/09/2017 08/07/2019 Intestinal obstruction 05/09/201203/02 CLASSICAL MIGRAINE WITHOU ME NTION OF INTRACTABLE MIGRAINE 11/29/2001 08/07/2019 Undiagnosed cardiac murmurs 11/29/2001 03/02/2017 Overview: Not [place] on 11/29/01 documented as of this encounter (statuses as of 06/12/2023) Immunizations Name Administration Dates Next Due HEP A - Hepatitis A (Adult > 18 yrs) 06/06/2020 Pneumococcal Conjugate Vacci ne, 20-valent ([id number]) 06/24/2022 Seasonal Influenza Virus Vac cine, Unspecified [...] encounter Miscellaneous Notes * Telephone Encounter - Rao Ochoa MD - 06/02/2023 5:13 PM EST From palliative care message Was asked to review this referral, I appreciate he has hepatic encephalopathy making him high risk for narcotics. Our department is strict that we cannot manage pain that is not cancer related - would benefit from a more interdisciplinary pain approach - maybe at [facility]? If you want us to see him to discuss goals of care, we can, but I don't think we will have much to offer from a pain perspective. Let me know, thanks! Sabi Sewell MD Palliative Medicine Physician --> Checking out pain management option for him, but it is difficult due to his medical condition Hi Dr Gomez, sorry to send you a message Wonder if you could review his case for possible pain management ? If you need an official referral , I will put the order in documented in this encounter Plan of Treatment Upcoming Encounters Date Type Department Care Team (Late st Contact Info) Description 06/23/2023 11:15 AM EDT Imaging Radiology [facility] 1st [facility] [address] [place] [address] 07/27/2023 9:30 AM EDT Procedure Only Endoscopy, [facility] [address] [place] [address] Trish Villatoro MD [address] [place] [address] 08/07/2023 3:00 PM EDT Office Visit Gastroenterology, [facility] [address] [place] [address] Keyanna Gordon CRNP [address] [place] [address] 11/21/2023 5:40 PM EDT Office Visit [facility] [address] [place] [address] Toby Paz MD [address] [place] [address] Scheduled Procedures Name Priority Associated Diagnoses Date/Ti me COLONOSCOPY FLEXIBLE PROXIMAL DIAGNOSTIC Recall History of colon polyps Health Maintenance Due Date Last Done Comments Albumin/Creatinine Ratio 1982 Hepatitis B (1 of 3 - 19+ 3-dose series) 07/14/1983 Zoster Vaccines (1 of 2) 2014 COVID-19 Vaccine ( - 2022- season) 2022 Depression Screening 04/17/2024 [...] filedocumented as of this encounter Care Teams Sheetmetal Patternmaker Relationship Specialty Start Date End Date Toby Paz MD [address] [place] [address] PCP - General Family Medicine 11/25/14 documented as of this encounter
--- OUTSIDE RECORDS SUMMARY | 2023-06-25 10:29 | External Medical Summary | Summary of Care ---
Author Name Unknown Organization [facility] Address [address] [facility] [address] Phone [phone] Care Team Providers Care Aviation Tactical Readiness Officer Name Role Phone Toby Paz MD Primary Care Provider +1- [phone] Encounter Details Date Type Department Care Team (Late st Contact Info) Description 06/02/2023 Telephone [facility] [address] [place] [address] Rao Ochoa MD [address] [place] [address] Allergies Active Allergy Reactions Criticality Noted Date Comments Other Allergy (See Comments) Anaphylaxis High 06/21/2018 Bee stings- swelling documented as of this encounter (statuses as of 06/02/2023) Medications Medication Sig Dispensed Refills Start Date [...] 2 03/29/2023 Active Vitamin A & D [address] UNIT Oral Tablet Take by mouth. 0 [...] as of this encounter (statuses as of 06/02/2023) Active Problems Problem Noted Date Diagnosed Date [...] as of this encounter (statuses as of 06/02/2023) Resolved Problems Problem Noted Date Diagnosed Date Resolved Date History of alcohol abuse 05/22/2023 Alcohol dependence, uncomplicated 01/17/2023 05/22/2023 Avascular necrosis of bone of hip 05/10/2022 05/22/2023 Chronic alcohol abuse 06/17/20212023 Facial swelling 06/09/2017 08/07/2019 Urticaria 06/09/2017 08/07/2019 Intestinal obstruction 05/09/201203/02 CLASSICAL MIGRAINE WITHOU ME NTION OF INTRACTABLE MIGRAINE 11/29/2001 08/07/2019 Undiagnosed cardiac murmurs 11/29/2001 03/02/2017 Overview: Not [place] on 11/29/01 documented as of this encounter (statuses as of 06/02/2023) Immunizations Name Administration Dates Next Due HEP A - Hepatitis A (Adult > 18 yrs) 06/06/2020 Pneumococcal Conjugate Vacci ne, 20-valent ([id number]) 06/24/2022 Seasonal Influenza Virus Vac cine, Unspecified [...] more interdisciplinary pain approach - maybe at [facility]? If you want us to see him [...] Care Team (Late st Contact Info) Description 06/06/2023 10:15 AM EST Imaging Radiology [facility] [address] [facility] [place] [address] 06/23/2023 11:15 AM EDT Imaging Radiology [facility] 1st Floor, [place] [address] [facility] [place] [address] 07/27/2023 9:30 AM EDT Procedure Only Endoscopy, [facility] [address] [place] [address] Trish Villatoro MD [address] [place] [address] 08/07/2023 3:00 PM EDT Office Visit Gastroenterology, [facility] [address] [place] [address] Keyanna Gordon CRNP [address] [place] [address] 11/21/2023 5:40 PM EDT Office Visit [facility] [address] [place] [address] Toby Paz MD [address] [place] [address] Scheduled Procedures Name Priority Associated Diagnoses Date/Ti me COLONOSCOPY FLEXIBLE PROXIMAL DIAGNOSTIC Recall History of colon polyps Health Maintenance Due Date Last Done Comments Albumin/Creatinine Ratio 1982 Hepatitis B (1 of 3 - 19+ 3-dose series) 07/14/1983 Zoster Vaccines (1 of 2) 2014 COVID-19 Vaccine ( - 2022- season) 2022 Depression Screening 04/17/2024 04/17/2023 GFR 05/30/2024 05/30/2023, 03/04, 12/29/2022, Additional history exists COLONOSCOPY-EVERY 3 YRS AGES 18-100 06/30/2024 06/30/2021, 06/30/2021, 05/30/2019, Additional history exists Diabetes Screening 05/30/2026 05/30/2023, 1 , 12/29/2022, Additional history exists DTaP,Tdap,and Td Vaccines (2 [...] filedocumented as of this encounter Care Teams Aviation Tactical Readiness Officer Relationship Specialty Start Date End Date Toby Paz MD [address] [place] [address] PCP - General Family Medicine 11/25/14 documented as of this encounter
--- OUTSIDE RECORDS SUMMARY | 2023-06-25 10:29 | External Medical Summary | Summary of Care ---
Author Name Unknown Organization [facility] Address [address] [place] [address] Phone [phone] Care Team Providers Care Perl Software Engineer Name Role Phone Toby Paz MD Primary Care Provider +1- [phone] Reason for Visit * Reason Onset Date Comments Other 06/23/2023 Encounter Details Date Type Department Care Team (Late st Contact Info) Description 06/23/2023 Telephone Gastroenterology, [facility] [address] [facility] [place] [phone] Services, Scheduling [address] [place] [address] Other Allergies Active Allergy Reactions Criticality Noted Date Comments Other Allergy (See Comments) Anaphylaxis High 06/21/2018 Bee stings- swelling documented as of this encounter (statuses as of 06/23/2023) Medications Medication Sig Dispensed Refills Start Date [...] 2 03/29/2023 Active Vitamin A & D [address] UNIT Oral Tablet Take by mouth. 0 [...] as of this encounter (statuses as of 06/23/2023) Active Problems Problem Noted Date Diagnosed Date [...] as of this encounter (statuses as of 06/23/2023) Resolved Problems Problem Noted Date Diagnosed Date Resolved Date History of alcohol abuse 05/22/2023 Alcohol dependence, uncomplicated 01/17/2023 05/22/2023 Avascular necrosis of bone of hip 05/10/2022 05/22/2023 Chronic alcohol abuse 06/17/20212023 Facial swelling 06/09/2017 08/07/2019 Urticaria 06/09/2017 08/07/2019 Intestinal obstruction 05/09/201203/02 CLASSICAL MIGRAINE WITHOU ME NTION OF INTRACTABLE MIGRAINE 11/29/2001 08/07/2019 Undiagnosed cardiac murmurs 11/29/2001 03/02/2017 Overview: Not [place] on 11/29/01 documented as of this encounter (statuses as of 06/23/2023) Immunizations Name Administration Dates Next Due HEP A - Hepatitis A (Adult > 18 yrs) 06/06/2020 Pneumococcal Conjugate Vacci ne, 20-valent ([id number]) 06/24/2022 Seasonal Influenza Virus Vac cine, Unspecified [...] encounter Miscellaneous Notes * Telephone Encounter - Vicky Tolbert OSA - 06/23/2023 2:42 PM EDT Patient was unable to complete his MRI today due to legs and feet hurting. Patient is questioning what to do next. documented in this encounter Plan of Treatment Upcoming Encounters Date Type Department Care Team (Late st Contact Info) Description 07/27/2023 9:30 AM EDT Procedure Only Endoscopy, [facility] [address] [place] [address] Trish Villatoro MD [address] [place] [address] 08/07/2023 3:00 PM EDT Office Visit Gastroenterology, [facility] [address] [place] [address] Keyanna Gordon CRNP [address] [place] [address] 10/03/2023 11:40 AM EDT Office Visit [facility] [address] [facility] [address] Toby Paz MD [address] [facility] [place] [address] 11/21/2023 5:40 PM EDT Office Visit [facility] [address] [place] [address] Toby Paz MD [address] [place] [address] Scheduled Procedures Name Priority Associated Diagnoses Date/Ti me ESOPHAGOGASTRODUODENOSCOPY ( EGD), FLEXIBLE, TRANSORAL, DIAGNOSTIC Cirrhosis (HCC) COLONOSCOPY FLEXIBLE PROXIMAL DIAGNOSTIC Recall History of [...] filedocumented as of this encounter Care Teams Perl Software Engineer Relationship Specialty Start Date End Date Toby Paz MD [address] [place] [address] PCP - General Family Medicine 11/25/14 documented as of this encounter
--- OUTSIDE RECORDS SUMMARY | 2023-06-25 10:29 | External Medical Summary | Summary of Care ---
Author Name Unknown Organization [facility] Address [address] [place] [address] Phone [phone] Care Team Providers Care Alterations Tailor Name Role Phone Toby Paz MD Primary Care Provider +1- [phone] Reason for Visit * Reason Onset Date Comments Other 06/23/2023 Encounter Details Date Type Department Care Team (Late st Contact Info) Description 06/23/2023 Telephone Gastroenterology, [facility] [address] [facility] [place] [phone] Services, Scheduling [address] [place] [address] Other Allergies Active Allergy Reactions Criticality Noted [...] 2 03/29/2023 Active Vitamin A & D [address] UNIT Oral Tablet Take by mouth. 0 [...] Undiagnosed cardiac murmurs 11/29/2001 03/02/2017 Overview: Not [place] on 11/29/01 documented as of this encounter (statuses as of 06/23/2023) Immunizations Name Administration Dates Next Due HEP A - Hepatitis A (Adult > 18 yrs) 06/06/2020 Pneumococcal Conjugate Vacci ne, 20-valent ([id number]) 06/24/2022 Seasonal Influenza Virus Vac cine, Unspecified [...] encounter Miscellaneous Notes * Telephone Encounter - Yissel Dumont LPN - 06/23/2023 3:20 PM EDT Keyanna, please see msg below and advise. * Telephone Encounter - Vicky Tolbert OSA - 06/23/2023 2:42 PM EDT Patient was unable to complete his MRI today due to legs and feet hurting. Patient is questioning what to do next. documented in this encounter Plan of Treatment Upcoming Encounters Date Type Department Care Team (Latest Contact Info) Description 08/07/2023 3:00 PM EDT Office Visit Gastroenterology , [facility] [address] [place] [address] Keyanna Gordon CRNP [address] [place] [address] 09/01/2023 1:30 PM EDT Hospital Encounter ENDO [facility], Endoscopy Room [facility] [address] [place] [phone] Lopez Shi MD [address] [place] [address] 09/01/2023 1:30 PM EDT - 09/01/2023 2:00 PM EDT Surgery ENDO [facility], Endoscopy Room [facility] [address] [place] [phone] Lopez Shi MD [address] [place] [address] ESOPHAGOGASTRODUODENOSCOPY (EGD), FLEXIBLE, TRANSORAL, DIAGNOSTIC 10/03/2023 11:40 AM EDT Office Visit [facility] [address] [phone] Toby Paz MD [address] [facility] [place] [phone] 11/21/2023 5:40 PM EDT Office Visit [facility] [address] [address] Toby Paz MD [address] [place] [address] Scheduled Procedures Name Priority Associated Diagnoses Date/Ti me ESOPHAGOGASTRODUODENOSCOPY ( EGD), FLEXIBLE, TRANSORAL, DIAGNOSTIC Cirrhosis (HCC) 09/01/2023 1:30 PM EDT COLONOSCOPY FLEXIBLE PROXIMA L DIAGNOSTIC Recall History of colon polyps Health Maintenance Due Date Last Done Comments Albumin/Creatinine Ratio 1982 Hepatitis B (1 of 3 - 19+ 3-dose series) 07/14/1983 Zoster Vaccines (1 of 2) 2014 COVID-19 Vaccine ( season) 2022 Depression Screening 04/17/2024 04/17/2023 GFR [...] filedocumented as of this encounter Care Teams Alterations Tailor Relationship Specialty Start Date End Date Toby Paz MD [address] [place] [address] PCP - General Family Medicine 11/25/14 documented as of this encounter
--- OUTSIDE RECORDS SUMMARY | 2023-06-25 10:29 | External Medical Summary | Summary of Care ---
Author Name Unknown Organization [facility] Address [address] [facility] [address] Phone [phone] Care Team Providers Care Education Technician Name Role Phone Toby Paz MD Primary Care Provider +1- [phone] Encounter Details Date Type Department Care Team (Late st Contact Info) Description 06/14/2023 Telephone [facility] [address] [place] [address] Toby Paz MD [address] [place] [address] Allergies Active Allergy Reactions Criticality Noted Date Comments Other Allergy (See Comments) Anaphylaxis High 06/21/2018 Bee stings- swelling documented as of this encounter (statuses as of 06/15/2023) Medications Medication Sig Dispensed Refills Start Date [...] 2 03/29/2023 Active Vitamin A & D [address] UNIT Oral Tablet Take by mouth. 0 [...] as of this encounter (statuses as of 06/15/2023) Active Problems Problem Noted Date Diagnosed Date [...] as of this encounter (statuses as of 06/15/2023) Resolved Problems Problem Noted Date Diagnosed Date Resolved Date History of alcohol abuse 05/22/2023 Alcohol dependence, uncomplicated 01/17/2023 05/22/2023 Avascular necrosis of bone of hip 05/10/2022 05/22/2023 Chronic alcohol abuse 06/17/20212023 Facial swelling 06/09/2017 08/07/2019 Urticaria 06/09/2017 08/07/2019 Intestinal obstruction 05/09/201203/02 CLASSICAL MIGRAINE WITHOU ME NTION OF INTRACTABLE MIGRAINE 11/29/2001 08/07/2019 Undiagnosed cardiac murmurs 11/29/2001 03/02/2017 Overview: Not [place] on 11/29/01 documented as of this encounter (statuses as of 06/15/2023) Immunizations Name Administration Dates Next Due HEP A - Hepatitis A (Adult > 18 yrs) 06/06/2020 Pneumococcal Conjugate Vacci ne, 20-valent ([id number]) 06/24/2022 Seasonal Influenza Virus Vac cine, Unspecified [...] encounter Miscellaneous Notes * Telephone Encounter - Mila Amaral OSA - 06/14/2023 11:40 AM EDT Carmen patients girlfriend got upset for I would not give patient info. There is not release form filled out to give info. Called office and confirmed. Lucita is calling to ask about appt information documented in this encounter Plan of Treatment Upcoming Encounters Date Type Department Care Team (Late st Contact Info) Description 06/23/2023 11:15 AM EDT Imaging Radiology [address] [place] [address] 07/27/2023 9:30 AM EDT Procedure Only Endoscopy, [facility] [address] [place] [address] Trish Villatoro MD [address] [place] [address] 08/07/2023 3:00 PM EDT Office Visit Gastroenterology, [facility] [address] [place] [address] Keyanna Gordon CRNP [address] [place] [address] 11/21/2023 5:40 PM EDT Office Visit [facility] [address] [place] [address] Toby Paz MD [address] [place], [place] [address] Scheduled Procedures Name Priority Associated Diagnoses Date/Ti me COLONOSCOPY FLEXIBLE PROXIMAL DIAGNOSTIC Recall History of colon polyps Health Maintenance Due Date Last Done Comments Albumin/Creatinine Ratio 1982 Hepatitis B (1 of 3 - 19+ 3-dose series) 07/14/1983 Zoster Vaccines (1 of 2) 2014 COVID-19 Vaccine (2022- season) 2022 Depression Screening 04/17/2024 04/17/2023 GFR [...] filedocumented as of this encounter Care Teams Education Technician Relationship Specialty Start Date End Date Toby Paz MD [address] [facility] [place] [id number] PCP - General Family Medicine 11/25/14 documented as of this encounter
--- OUTSIDE RECORDS SUMMARY | 2023-06-25 10:29 | External Medical Summary ---
Author Name Unknown Address Unknown Organization K01:[facility] [address] [place] [address] Laboratory Report Ordering Provider Test Date Status BRENT HO 06/06/2023 09:22:51 Final Observation Date Value Abnormality Reference (Units ) Status Ammonia 06/06/2023 09:22:51 96 Above upper panic limits 11-35 (umol/L) Final Performing Location [facility] [address] [place] [address]
--- OUTSIDE RECORDS SUMMARY | 2023-06-25 10:29 | External Medical Summary | Summary of Care ---
Author Name Unknown Organization [facility] Address [address] [place] [place] [place] [address] Phone [phone] Care Team Providers Care Casting And Curing Operator Name Role Phone Toby Paz MD Primary Care Provider +1- [phone] Reason for Visit * Reason Comments Outpatient Testing Encounter Details Date Type Department Care Team (Late st Contact Info) Description 06/06/2023 9:40 AM EST Laboratory Laboratory, [facility] [address] [place] [address] [facility] [address] [place] [address] Alcoholic cirrhosis of liver without ascites (HCC) Allergies Active Allergy Reactions Criticality Noted Date Comments Other Allergy (See Comments) Anaphylaxis High 06/21/2018 Bee stings- swelling documented as of this encounter (statuses as of 06/06/2023) Medications Medication Sig Dispensed Refills Start Date [...] 2 03/29/2023 Active Vitamin A & D [address] UNIT Oral Tablet Take by mouth. 0 [...] as of this encounter (statuses as of 06/06/2023) Active Problems Problem Noted Date Diagnosed Date [...] as of this encounter (statuses as of 06/06/2023) Resolved Problems Problem Noted Date Diagnosed Date Resolved Date History of alcohol abuse 05/22/2023 Alcohol dependence, uncomplicated 01/17/2023 05/22/2023 Avascular necrosis of bone of hip 05/10/2022 05/22/2023 Chronic alcohol abuse 06/17/20212023 Facial swelling 06/09/2017 08/07/2019 Urticaria 06/09/2017 08/07/2019 Intestinal obstruction 05/09/201203/02 CLASSICAL MIGRAINE WITHOU ME NTION OF INTRACTABLE MIGRAINE 11/29/2001 08/07/2019 Undiagnosed cardiac murmurs 11/29/2001 03/02/2017 Overview: Not [place] on 11/29/01 documented as of this encounter (statuses as of 06/06/2023) Immunizations Name Administration Dates Next Due HEP A - Hepatitis A (Adult > 18 yrs) 06/06/2020 Pneumococcal Conjugate Vacci ne, 20-valent ([id number]) 06/24/2022 Seasonal Influenza Virus Vac cine, Unspecified [...] Department Care Team (Latest Contact Info) Description 06/06/2023 10:15 AM EST Imaging Radiology [facility] [address] [place] [address] Alcoholic cirrhosis of liver with ascites (HCC) 06/23/2023 11:15 AM EDT [facility] [address] [place] [address] 07/27/2023 9:30 AM EDT Procedure Only Endoscopy, [facility] [address] [address] Trish Villatoro MD [address] [place] [place] [address] 08/07/2023 3:00 PM EDT Office Visit Gastroenterology, [facility] [address] [place] [address] Keyanna Gordon CRNP [address] [place] [address] 11/21/2023 5:40 PM EDT [address] [phone] Toby Paz MD [address] [place] [address] Pending Results Name Type Priority Associated Diagnoses Date /Time AMMONIA Lab Routine Alcoholic cirrhosis of liver without ascites (HCC) 06/06/2023 9:22 AM EST COMPREHENSIVE METABOLIC PANEL Lab Routine Alcoholic cirrhosis of liver without ascites (HCC) 06/06/2023 9:22 AM EST Scheduled Procedures Name Priority Associated [...] with ascites (HCC) Alcoholic cirrhosis of liver Alcoholic cirrhosis of liver without ascites (HCC) Alcoholic cirrhosis of liver documented in this encounter Care Teams Casting And Curing Operator Relationship Specialty Start Date End Date Toby Paz MD [address] [place] [address] PCP - General Family Medicine 11/25/14 documented as of this encounter
--- OUTSIDE RECORDS SUMMARY | 2023-06-25 10:30 | External Medical Summary | Summary of Care ---
Author Name Unknown Organization [facility] Address [address] [place] [address] Phone [phone] Care Team Providers Care Relay Dispatcher Name Role Phone Toby Paz MD Primary Care Provider +1- [phone] Reason for Visit * Reason Comments Outpatient Testing Encounter Details Date Type Department Care Team (Late st Contact Info) Description 05/30/2023 2:10 PM EST Laboratory Laboratory, [place] [address] [place] [address] [place], Laboratory [address] [place] [address] Hepatic encephalopathy (HCC); Alcoholic cirrhosis of liver without ascites (HCC); Alcoholic cirrhosis of liver with ascites (HCC) Allergies Active Allergy Reactions Criticality Noted Date Comments Other Allergy (See Comments) Anaphylaxis High 06/21/2018 Bee stings- swelling documented as of this encounter (statuses as of 05/30/2023) Medications Medication Sig Dispensed Refills Start Date [...] 2 03/29/2023 Active Vitamin A & D [address] UNIT Oral Tablet Take by mouth. 0 [...] as of this encounter (statuses as of 05/30/2023) Active Problems Problem Noted Date Diagnosed Date [...] as of this encounter (statuses as of 05/30/2023) Resolved Problems Problem Noted Date Diagnosed Date Resolved Date History of alcohol abuse 05/22/2023 Alcohol dependence, uncomplicated 01/17/2023 05/22/2023 Avascular necrosis of bone of hip 05/10/2022 05/22/2023 Chronic alcohol abuse 06/17/20212023 Facial swelling 06/09/2017 08/07/2019 Urticaria 06/09/2017 08/07/2019 Intestinal obstruction 05/09/201203/02 CLASSICAL MIGRAINE WITHOU ME NTION OF INTRACTABLE MIGRAINE 11/29/2001 08/07/2019 Undiagnosed cardiac murmurs 11/29/2001 03/02/2017 Overview: Not [place] on 11/29/01 documented as of this encounter (statuses as of 05/30/2023) Immunizations Name Administration Dates Next Due HEP A - Hepatitis A (Adult > 18 yrs) 06/06/2020 Pneumococcal Conjugate Vacci ne, 20-valent ([id number]) 06/24/2022 Seasonal Influenza Virus Vac cine, Unspecified [...] Description 06/06/2023 10:15 AM EST Imaging Radiology [facility] [address] [address] 07/27/2023 9:30 AM EDT Procedure Only Endoscopy, [facility] [address] [address] Trish Villatoro MD [address] [address] 08/07/2023 3:00 PM EDT Office Visit Gastroenterology, [facility] [address] [address] Keyanna Gordon CRNP [address] [address] 11/21/2023 5:40 PM EDT Office Visit [facility] [address] [facility] [id number] Toby Paz MD [address] [place] [facility] [place] [address] Pending Results Name Type Priority Associated Diagnoses Date /Time COMPREHENSIVE METABOLIC PANEL Lab Routine Hepatic encephalopathy (HCC) Alcoholic cirrhosis of liver without ascites (HCC) 05/30/2023 2:21 PM EST CBC WITH WBC DIFFERENTIAL Lab Routine Hepatic encephalopathy (HCC) Alcoholic cirrhosis of liver without ascites (HCC) 05/30/2023 2:21 PM EST AMMONIA Lab Routine Hepatic encephalopathy (HCC) Alcoholic cirrhosis of liver without ascites (HCC) 05/30/2023 2:21 PM EST PT INR Lab Routine Alcoholic cirrhosis of liver with ascites (HCC) 05/30/2023 2:21 PM EST CBC Lab Routine Hepatic encephalopathy (HCC) Alcoholic cirrhosis of liver without ascites (HCC) 05/30/2023 2:21 PM EST DIFFERENTIAL, AUTOMATED Lab Routine Hepatic encephalopathy (HCC) Alcoholic cirrhosis of liver without ascites (HCC) 05/30/2023 2:21 PM EST CULTURE, URINE, QUANTITATIVE Lab Routine Alcoholic cirrhosis of liver with ascites (HCC) 05/30/2023 2:25 PM EST Scheduled Procedures Name Priority Associated Diagnoses Date/Ti me COLONOSCOPY FLEXIBLE PROXIMAL DIAGNOSTIC Recall History of colon polyps Health Maintenance Due Date Last Done Comments Albumin/Creatinine Ratio 1982 Hepatitis B (1 of 3 - 19+ 3-dose series) 07/14/1983 Zoster Vaccines (1 of 2) 2014 COVID-19 Vaccine (2022- season) 2022 GFR 03/31/2024 03/31/2023, 12/03, 10/17/2022, Additional history [...] as of this encounter Visit Diagnoses Diagnosis Hepatic encephalopathy (HCC) Hepatic encephalopathy Alcoholic cirrhosis of liver without ascites (HCC) Alcoholic cirrhosis of liver Alcoholic cirrhosis of liver with ascites (HCC) Alcoholic cirrhosis of liver documented in this encounter Care Teams Relay Dispatcher Relationship Specialty Start Date End Date Toby Paz MD [address] [place] [address] PCP - General Family Medicine 11/25/14 documented as of this encounter
--- OUTSIDE RECORDS SUMMARY | 2023-06-25 10:30 | External Medical Summary | Summary of Care ---
Author Name Unknown Organization [facility] Address [address] [place] [address] Phone [phone] Care Team Providers Care Landscaper Name Role Phone Tboy Paz MD Primary Care Provider +1- [phone] Reason for Visit * Reason Comments Outpatient Testing Encounter Details Date Type Department Care Team (Late st Contact Info) Description 05/30/2023 2:10 PM EST Laboratory Laboratory, [place] [address] [place] [address] [place], Laboratory [address] [place] [address] Hepatic encephalopathy (HCC); Alcoholic cirrhosis [...] 2 03/29/2023 Active Vitamin A & D [address] UNIT Oral Tablet Take by mouth. 0 [...] Undiagnosed cardiac murmurs 11/29/2001 03/02/2017 Overview: Not [place] on 11/29/01 documented as of this encounter (statuses as of 05/30/2023) Immunizations Name Administration Dates Next Due HEP A - Hepatitis A (Adult > 18 yrs) 06/06/2020 Pneumococcal Conjugate Vacci ne, 20-valent ([id number]) 06/24/2022 Seasonal Influenza Virus Vac cine, Unspecified [...] Description 06/06/2023 10:15 AM EST Imaging Radiology [facility] [address] [address] 07/27/2023 9:30 AM EDT Procedure Only Endoscopy, [facility] [address] [address] Trish Villatoro MD [address] [address] 08/07/2023 3:00 PM EDT Office Visit Gastroenterology, [facility] [address] [address] Keyanna Gordon CRNP [address] [address] 11/21/2023 5:40 PM EDT Office Visit [facility] [address] [facility] [phone] Toby Paz MD [address] [place] [facility] [place] [address] Pending Results Name Type Priority Associated Diagnoses [...] liver documented in this encounter Care Teams Landscaper Relationship Specialty Start Date End Date Toby Paz MD [address] [place] [address] PCP - General Family Medicine 11/25/14 documented as of this encounter
--- OUTSIDE RECORDS SUMMARY | 2023-06-25 10:30 | External Medical Summary | Summary of Care ---
Author Name Unknown Organization [facility] Address [address] [place] [address] Phone [phone] Care Team Providers Care Music Adapter Name Role Phone Toby Paz MD Primary Care Provider +1- [phone] Reason for Referral * Precert (Within 10 days (routine)) - Pending Review Specialty Diagnoses / Procedures Referred By Contac t Referred To Contact Radiology Diagnoses Pain in left hip Procedures MRI L SPINE WO CONTRAST Camille Jaimes PA-C [address] [place] [facility] [address] [address] Referral ID Status Reason Start Date Expiration Date V isits Requested Visits Authorized [id number] Pending Review 05/29/[phone] Encounter Details Date Type Department Care Team (Late st Contact Info) Description 05/29/2023 Orders Only [facility], [address] *DO NOT REMOVE THIS DEPARTMENT* [address] [place] [id number] Requisition, External Radiology [address] [place] [address] Pain in left hip* Allergies Active Allergy Reactions Criticality Noted Date Comments Other Allergy (See Comments) Anaphylaxis High 06/21/2018 Bee stings- swelling documented as of this encounter (statuses as of 05/29/2023) Medications Medication Sig Dispensed Refills Start Date [...] 2 03/29/2023 Active Vitamin A & D [address] UNIT Oral Tablet Take by mouth. 0 [...] as of this encounter (statuses as of 05/29/2023) Active Problems Problem Noted Date Diagnosed Date [...] as of this encounter (statuses as of 05/29/2023) Resolved Problems Problem Noted Date Diagnosed Date Resolved Date History of alcohol abuse 05/22/2023 Alcohol dependence, uncomplicated 01/17/2023 05/22/2023 Avascular necrosis of bone of hip 05/10/2022 05/22/2023 Chronic alcohol abuse 06/17/20212023 Facial swelling 06/09/2017 08/07/2019 Urticaria 06/09/2017 08/07/2019 Intestinal obstruction 05/09/201203/02 CLASSICAL MIGRAINE WITHOU ME NTION OF INTRACTABLE MIGRAINE 11/29/2001 08/07/2019 Undiagnosed cardiac murmurs 11/29/2001 03/02/2017 Overview: Not [place] on 11/29/01 documented as of this encounter (statuses as of 05/29/2023) Immunizations Name Administration Dates Next Due HEP A - Hepatitis A (Adult > 18 yrs) 06/06/2020 Pneumococcal Conjugate Vacci ne, 20-valent ([id number]) 06/24/2022 Seasonal Influenza Virus Vac cine, Unspecified [...] Description 06/06/2023 10:15 AM EST Imaging Radiology [facility] [address] [address] 07/27/2023 9:30 AM EDT Procedure Only Endoscopy, [facility] [address] [address] Trish Villatoro MD [address] [address] 08/07/2023 3:00 PM EDT Office Visit Gastroenterology, [facility] [address] [address] Keyanna Gordon CRNP [address] [address] 11/21/2023 5:40 PM EDT Office Visit [facility] [address] [place] [address] Toby Paz MD [address] [place], [place] [id number] Scheduled Orders Name Type Priority Associated Diagnoses Orde r Schedule MRI L SPINE WO CONTRAST Medical Imaging Routine Pain in left hip Expected: 05/29/2023 (Approximate), Expires: 06/26/2024 Scheduled Procedures Name Priority Associated Diagnoses Date/Ti me COLONOSCOPY FLEXIBLE PROXIMAL DIAGNOSTIC Recall History of colon polyps Health Maintenance Due Date Last Done Comments Albumin/Creatinine Ratio 1982 Hepatitis B (1 of 3 - 19+ 3-dose series) 07/14/1983 Zoster Vaccines (1 of 2) 2014 COVID-19 Vaccine ( season) 2022 GFR 03/31/2024 03/31/2023, 12/03, 10/17/2022, [...] as of this encounter Visit Diagnoses Diagnosis Pain in left hip- Primary Pain in joint, pelvic region and thigh documented in this encounter Care Teams Music Adapter Relationship Specialty Start Date End Date Toby Paz MD [address] [facility] [place] [address] PCP - General Family Medicine 11/25/14 documented as of this encounter
--- OUTSIDE RECORDS SUMMARY | 2023-06-25 10:30 | External Medical Summary | Summary of Care ---
Author Name Unknown Organization [facility] Address [address] [place] [address] Phone [phone] Care Team Providers Care Associate Software Application Engineer Name Role Phone Toby Paz MD Primary Care Provider +1- [phone] Reason for Visit * Reason Onset Date Comments [facility]: Engagement 05/30/2023 Encounter Details Date Type Department Care Team (Late st Contact Info) Description 05/30/2023 Telephone [facility] [place], [facility] [address] [place] [address] [facility], Nurse [facility] [address] [place] [address] [facility]: Engagement Allergies Active Allergy Reactions Criticality Noted Date [...] 2 03/29/2023 Active Vitamin A & D [address] UNIT Oral Tablet Take by mouth. 0 [...] ischemic heart disease 002 Overview: father had IA's in 40's Gastroesophageal reflux disease with esophagitis [...] Undiagnosed cardiac murmurs 11/29/2001 03/02/2017 Overview: Not [place] on 11/29/01 documented as of this encounter (statuses as of 05/30/2023) Immunizations Name Administration Dates Next Due HEP A - Hepatitis A (Adult > 18 yrs) 06/06/2020 Pneumococcal Conjugate Vacci ne, 20-valent ([id number]) 06/24/2022 Seasonal Influenza Virus Vac cine, Unspecified [...] encounter Miscellaneous Notes * Telephone Encounter - Pippa Mckeon LPN - 05/30/2023 2:36 PM EST Received call from [facility] that she had called with [place] referral few minutes ago But that she had spoken to patient and he declines GAH at this time documented in this encounter Plan of Treatment Upcoming Encounters Date Type Department Care Team (Late st Contact Info) Description 06/06/2023 10:15 AM EST Imaging Radiology [facility] [address] [address] 07/27/2023 9:30 AM EDT Procedure Only Endoscopy, [facility] [address] [address] Trish Villatoro MD [address] [address] 08/07/2023 3:00 PM EDT Office Visit Gastroenterology, [facility] [address] [address] Keyanna Gordon CRNP [address] [address] 11/21/2023 5:40 PM EDT Office Visit [facility] [address] [place] [address] Toby Paz MD [address] [place] [address] Scheduled Procedures Name Priority Associated [...] filedocumented as of this encounter Care Teams Associate Software Application Engineer Relationship Specialty Start Date End Date Toby Paz MD [address] [place] [address] PCP - General Family Medicine 11/25/14 documented as of this encounter
--- OUTSIDE RECORDS SUMMARY | 2023-06-25 10:30 | External Medical Summary | Summary of Care ---
Author Name Unknown Organization [facility] Address [address] [place] [address] Phone [phone] Care Team Providers Care Gold Miner Name Role Phone Toby Paz MD Primary Care Provider +1- [phone] Reason for Visit * Reason Onset Date Comments Pain 05/25/2023 Medication Problem 05/25/2023 Encounter Details Date Type Department Care Team (Late st Contact Info) Description 05/25/2023 Telephone [facility] [address] [place] [address] Lacey Vargas, RONA [address] [place] [address] Pain; Medication Problem Allergies Active Allergy Reactions Criticality Noted Date Comments Other Allergy (See Comments) Anaphylaxis High 06/21/2018 Bee stings- swelling documented as of this encounter (statuses as of 05/31/2023) Medications Medication Sig Dispensed Refills Start Date [...] 2 03/29/2023 Active Vitamin A & D [address] UNIT Oral Tablet Take by mouth. 0 [...] as of this encounter (statuses as of 05/31/2023) Active Problems Problem Noted Date Diagnosed Date [...] as of this encounter (statuses as of 05/31/2023) Resolved Problems Problem Noted Date Diagnosed Date Resolved Date History of alcohol abuse 05/22/2023 Alcohol dependence, uncomplicated 01/17/2023 05/22/2023 Avascular necrosis of bone of hip 05/10/2022 05/22/2023 Chronic alcohol abuse 06/17/20212023 Facial swelling 06/09/2017 08/07/2019 Urticaria 06/09/2017 08/07/2019 Intestinal obstruction 05/09/201203/02 CLASSICAL MIGRAINE WITHOU ME NTION OF INTRACTABLE MIGRAINE 11/29/2001 08/07/2019 Undiagnosed cardiac murmurs 11/29/2001 03/02/2017 Overview: Not [place] on 11/29/01 documented as of this encounter (statuses as of 05/31/2023) Immunizations Name Administration Dates Next Due HEP A - Hepatitis A (Adult > 18 yrs) 06/06/2020 Pneumococcal Conjugate Vacci ne, 20-valent ([id number]) 06/24/2022 Seasonal Influenza Virus Vac cine, Unspecified [...] Telephone Encounter - Chelle Brewster LPN - 05/31/2023 12:23 PM EST Tramadol was called into pharmacy. Pt was made aware * Telephone Encounter - Randi Staley OSA - 05/29/2023 9:13 AM EST Pt's significant other called stating that the pharmacy is unable to fill his Rx for Tramadol because their electronic system is down. The pt will need a handwritten Rx and wants to have someone cometo the office to pick it up. * Telephone Encounter - Toby Paz MD - 05/25/2023 5:13 PM EST Office visit needed or he can address with ortho * Telephone Encounter - Lacey Vargas RN - 05/25/2023 3:[address] Paz, I spoke with Mauro today, he continues to complain of pain, says his pain is mostly located to his left knee, says his left leg feel like "fire", says he can't sleep at night due to the pain. Says heis taking the Tramadol with minimal relief. Patient also complaining of a "stinging" sensation to his left arm pit up to his neck, says his neck is stiff. I offered to get him scheduled for an appointment, but he did not want to do so-let me know if you have any further recommendations thanks Lacey Vargas, RONA documented in this encounter Plan of Treatment Upcoming Encounters Date Type Department Care Team (Late st Contact Info) Description 06/06/2023 10:15 AM EST Imaging Radiology [facility] [address] [facility] [address] [place] [address] 07/27/2023 9:30 AM EDT Procedure Only Endoscopy, [facility] [address] [place] [address] Trish Villatoro MD [address] [place] [address] 08/07/2023 3:00 PM EDT Office Visit Gastroenterology, [facility] [address] [facility] [address] [place] [address] Keyanna Gordon CRNP [address] [address] 11/21/2023 5:40 PM EDT Office Visit [facility] [address] [place] [facility] [place] [phone] Toby Paz MD [address] [place] [address] Scheduled Procedures Name Priority Associated Diagnoses Date/Ti me COLONOSCOPY FLEXIBLE PROXIMAL DIAGNOSTIC Recall History of colon polyps Health Maintenance Due Date Last Done Comments Albumin/Creatinine Ratio 1982 Hepatitis B (1 of 3 - 19+ 3-dose series) 07/14/1983 Zoster Vaccines (1 of 2) 2014 COVID-19 Vaccine (1 - 2022-24 season) 2022 Depression Screening 04/17/2024 04/17/2023 GFR 05/30/2024 05/30/2023, 1212/2022, 12/29/2022, Additional history exists COLONOSCOPY-EVERY 3 YRS [...] filedocumented as of this encounter Care Teams Gold Miner Relationship Specialty Start Date End Date Toby Paz MD [address] [place] [address] PCP - General Family Medicine 11/25/14 documented as of this encounter
--- OUTSIDE RECORDS SUMMARY | 2023-06-25 10:30 | External Medical Summary ---
Author Name Unknown Address Unknown Organization [id number]:[facility] - [address] [place] [id number] Laboratory Report Ordering Provider Test Date Status LIZA LAROSE 05/30/2023 14:25:16 Final Observation Date Value Abnormality Reference (Units) Status Bacteria identified in Specimen by Culture 05/30/2023 14:25:16 No significant growth Final Test: Culture, Urine, Quanti tative
Specimen Source: Urine, Clean Catch
Specimen Type: Urine
Specimen Date: 05/30/2023 2:25 PM
Result Date: 06/01/2023 7:39 AM
Result Status: Final result
Resulting Lab: [facility]
[address]
[place] [facility]

CULTURE

No significant growth

null Performing Location [facility] - [address] [place] [id number]
--- OUTSIDE RECORDS SUMMARY | 2023-06-25 10:30 | External Medical Summary ---
Author Name Unknown Address Unknown Organization [id number]:[facility] - [address] [place] [address] Laboratory Report Ordering Provider Test Date Status BRENT HO 05/30/2023 14:21:11 Final Observation Date Value Abnormality Reference (Units ) Status Ammonia 05/30/2023 14:21:11 134 Above upper panic limits 11-35 (umol/L) Final Performing Location [facility] - [address] [place] [address]
--- OUTSIDE RECORDS SUMMARY | 2023-06-25 10:30 | External Medical Summary ---
Author Name Unknown Address Unknown Organization [id number]:[facility] - [address] [address] Laboratory Report Ordering Provider Test Date Status BRENT HO 05/30/2023 14:21:11 Final Observation Date Value Abnormality Reference (Units ) Status WBC, Total 05/30/2023 14:21:11 4.46 4.00-10.80 (K/uL) Final RBC 05/30/2023 14:21:11 3.68 4.50-5.25 (M/uL) Final Hemoglobin 05/30/2023 14:21:11 12.7 Below low normal 14.0-16.8 (g/dL) Final HCT 05/30/2023 14:21:11 38.2 Below low normal 40.0-48.4 (%) Final MCV 05/30/2023 14:21:11 103.8 82.0-99.5 (fL) Final MCH 05/30/2023 14:21:11 34.5 27.0-34.0 (pg) Final MCHC 05/30/2023 14:21:11 33.2 32.0-36.0 (g/dL) Final RDW 05/30/2023 14:21:11 15.2 11.5-15.5 (%) Final Platelets 05/30/2023 14:21:11 43 Below low normal 140-400 (K/uL) Final MPV 05/30/2023 14:21:11 14.2 6.6-11.1 (fL) Final Nucleated erythrocytes/100 leukocytes [Ratio] in Blood by Automated count 05/30/2023 14:21:11 0 <=0 (/100 WBCs) Final Performing Location [facility] - [address] [place] [address]
--- OUTSIDE RECORDS SUMMARY | 2023-06-25 10:30 | External Medical Summary | Summary of Care ---
Author Name Unknown Organization [facility] Address [address] [place] [address] Phone [phone] Care Team Providers Care Backhaul Driver Name Role Phone Toby Paz MD Primary Care Provider +1- [phone] Reason for Visit * Reason Onset Date Comments Other 05/31/2023 Encounter Details Date Type Department Care Team (Late st Contact Info) Description 05/31/2023 Telephone Gastroenterology, [facility] [address] [place] [phone] Services, Scheduling [address] [place] [address] Other Allergies Active Allergy Reactions Criticality Noted [...] 2 03/29/2023 Active Vitamin A & D [address] UNIT Oral Tablet Take by mouth. 0 [...] Undiagnosed cardiac murmurs 11/29/2001 03/02/2017 Overview: Not [place] on 11/29/01 documented as of this encounter (statuses as of 05/31/2023) Immunizations Name Administration Dates Next Due HEP A - Hepatitis A (Adult > 18 yrs) 06/06/2020 Pneumococcal Conjugate Vacci ne, 20-valent ([id number]) 06/24/2022 Seasonal Influenza Virus Vac cine, Unspecified [...] Telephone Encounter - Vicky Tolbert OSA - 05/31/2023 2:47 PM EST Patient significant other returning call from nurse. Please assist documented in this encounter Plan of Treatment Upcoming Encounters Date Type Department Care Team (Late st Contact Info) Description 06/06/2023 10:15 AM EST Imaging Radiology [facility] [address] [address] 07/27/2023 9:30 AM EDT Procedure Only Endoscopy, [facility] [address] [address] Trish Villatoro MD [address] [address] 08/07/2023 3:00 PM EDT Office Visit Gastroenterology, [facility] [address] [address] Keyanna Gordon CRNP [address] [place] [address] 11/21/2023 5:40 PM EDT Office Visit [address] [phone] Toby Paz MD [address] [place] [address] Scheduled Procedures Name Priority Associated Diagnoses Date/Ti [...] filedocumented as of this encounter Care Teams Backhaul Driver Relationship Specialty Start Date End Date Toby Paz MD [address] [place] [address] PCP - General Family Medicine 11/25/14 documented as of this encounter
--- OUTSIDE RECORDS SUMMARY | 2023-06-25 10:30 | External Medical Summary | Summary of Care ---
Author Name Unknown Organization [facility] Address [address] [place] [address] Phone [phone] Care Team Providers Care Credit Coordinator Name Role Phone Toby Paz MD Primary Care Provider +1- [phone] Reason for Visit * Reason Onset Date Comments Med Request 05/31/2023 Encounter Details Date Type Department Care Team ([facility] st Contact Info) Description 05/31/2023 Telephone [place] [address] [place] [address] Lacey Vargas, RONA [address] [place] [address] Med Request Allergies Active Allergy Reactions Criticality [...] 2 03/29/2023 Active Vitamin A & D [address] UNIT Oral Tablet Take by mouth. 0 [...] Undiagnosed cardiac murmurs 11/29/2001 03/02/2017 Overview: Not [place] on 11/29/01 documented as of this encounter (statuses as of 05/31/2023) Immunizations Name Administration Dates Next Due HEP A - Hepatitis A (Adult > 18 yrs) 06/06/2020 Pneumococcal Conjugate Vacci ne, 20-valent ([id number]) 06/24/2022 Seasonal Influenza Virus Vac cine, Unspecified [...] Telephone Encounter - Lacey Vargas RN - 05/31/2023 3:[address] Ochoa, Can you please address patient's request for pain medication as stated below- thank Lacey Vargas RN * Telephone Encounter - Toby Paz MD - 05/31/2023 12:56 PM EST I have not seen him for over a year. I have encouraged an office visit with me on multiple occasions. I am not going to prescribe pain medication unless I can evaluate his pain. GI does not want him to have any opioid medication. * Telephone Encounter - Lacey Vargas RN - 05/31/2023 11:[address] Paz/Dr. Ochoa, Patient's significant other Carmen Marr is asking when provider will order pain medication, patient in yesterday to get his lab work done-please review Please see telephone encounter on 05/29/23-Carmen would like a paper script due to the computer issues with refills for controlled substances. Thanks Lacey Vargas RN documented in this encounter Plan of Treatment Upcoming Encounters Date Type Department Care Team (Late st Contact Info) Description 06/06/2023 10:15 AM EST Imaging Radiology [facility] [address] [facility] [place] [address] 07/27/2023 9:30 AM EDT Procedure Only Endoscopy, [facility] [address] [place] [address] Trish Villatoro MD [address] [place] [address] 08/07/2023 3:00 PM EDT Office Visit Gastroenterology, [facility] [place] [address] Keyanna Gordon CRNP [address] [place] [address] 11/21/2023 5:40 PM EDT Office Visit [facility] [address] [place] [phone] Toby Paz MD [address] [place] [address] Scheduled Procedures Name Priority Associated Diagnoses Date/Ti me COLONOSCOPY FLEXIBLE PROXIMAL DIAGNOSTIC Recall History of colon polyps Health Maintenance Due Date Last Done Comments Albumin/Creatinine Ratio 1982 Hepatitis B (1 of 3 - 19+ 3-dose series) 07/14/1983 Zoster Vaccines (1 of 2) 2014 COVID-19 Vaccine (2022- season) 2022 Depression Screening 04/17/2024 04/17/2023 GFR 05/30/2024 05/30/2023, 12/2 12/2022, 12/29/2022, Additional history exists COLONOSCOPY-EVERY 3 YRS [...] filedocumented as of this encounter Care Teams Credit Coordinator Relationship Specialty Start Date End Date Toby Paz MD [address] [place] [address] PCP - General Family Medicine 11/25/14 documented as of this encounter
--- OUTSIDE RECORDS SUMMARY | 2023-06-25 10:30 | External Medical Summary | Summary of Care ---
Author Name Unknown Organization [facility] Address [address] [place] [address] Phone [phone] Care Team Providers Care Radiation Control Technician Name Role Phone Toby Paz MD Primary Care Provider +1- [phone] Reason for Visit * Reason Onset Date Comments Med Request 05/29/2023 Oxy Codeine Encounter Details Date Type Department Care Team ([facility] st Contact Info) Description 05/29/2023 Telephone [facility] [address] [place] [address] Toby Paz MD [address] [place] [address] Med Request (Oxy Codeine ) Allergies Active Allergy Reactions Criticality Noted Date [...] 2 03/29/2023 Active Vitamin A & D [address] UNIT Oral Tablet Take by mouth. 0 [...] Undiagnosed cardiac murmurs 11/29/2001 03/02/2017 Overview: Not [place] on 11/29/01 documented as of this encounter (statuses as of 05/29/2023) Immunizations Name Administration Dates Next Due HEP A - Hepatitis A (Adult > 18 yrs) 06/06/2020 Pneumococcal Conjugate Vacci ne, 20-valent ([id number]) 06/24/2022 Seasonal Influenza Virus Vac cine, Unspecified [...] encounter Miscellaneous Notes * Telephone Encounter - Ana Dan CCMA - 05/29/2023 3:51 PM EST The patient is aware, and verbalizes an understanding. Pt requesting an order for blood work. * Telephone Encounter - Rao Ochoa MD - 05/29/2023 12:09 PM EST Would like to get blood test at first ( rod ammonia level ) before ordering strong opioid pain med Please get blood tests done * Telephone Encounter - Tata Lopez LPN - 05/29/2023 11:34 AM EST Patients significant other is calling requesting paper Rx for tramadol and Oxycodone as [facility] is still having issues with their electronic Rx * Telephone Encounter - Luis Jolley OSA - 05/29/2023 10:56 AM EST I have Carmen on the line about his Oxy condone. I told her it was discontinued She stated that the provider called one last time script into the [facility] in [place]. Carmen stated that she would need a script hand written to give the pharmacy due to E-script is down. Carmen is requesting a call back to see why this script can not be gotten. documented in this encounter Plan of Treatment Upcoming Encounters Date Type Department Care Team (Late st Contact Info) Description 06/06/2023 10:15 AM EST Imaging Radiology [facility] [address] [facility] [place] [address] 07/27/2023 9:30 AM EDT Procedure Only Endoscopy, [facility] [address] [place] [address] Trish Villatoro MD [address] [place] [address] 08/07/2023 3:00 PM EDT Office Visit Gastroenterology, [facility] [address] [facility] [place] [address] Keyanna Gordon CRNP [address] [facility] [place] [address] 11/21/2023 5:40 PM EDT Office Visit [facility] [address] [place] [address] Toby Paz MD [address] [place] [address] Scheduled Procedures Name Priority Associated Diagnoses Date/Ti me COLONOSCOPY FLEXIBLE PROXIMAL DIAGNOSTIC Recall History of colon polyps Health Maintenance Due Date Last Done Comments Albumin/Creatinine Ratio 1982 Hepatitis B (1 of 3 - 19+ 3-dose series) 07/14/1983 Zoster Vaccines (1 of 2) 2014 COVID-19 Vaccine (2022-24 season) 2022 GFR 03/31/2024 03/31/2023, 12/03, 10/17/2022, [...] filedocumented as of this encounter Care Teams Radiation Control Technician Relationship Specialty Start Date End Date Toby Paz MD [address] [place] [address] PCP - General Family Medicine 11/25/14 documented as of this encounter
--- OUTSIDE RECORDS SUMMARY | 2023-06-25 10:30 | External Medical Summary | Summary of Care ---
Author Name Unknown Organization [facility] Address [address] [place] [address] Phone [phone] Care Team Providers Care Chief Engineer'S Helper Name Role Phone Toby Paz MD Primary Care Provider +1- [phone] Reason for Visit * Reason Onset Date Comments Med Request 05/31/2023 Encounter Details Date Type Department Care Team ([facility] st Contact Info) Description 05/31/2023 Telephone [place] [address] [place] [address] Lacey Vargas, RONA [address] [place] [address] Med Request Allergies Active Allergy Reactions Criticality Noted Date Comments Other Allergy (See Comments) Anaphylaxis High 06/21/2018 Bee stings- swelling documented as of this encounter (statuses as of 06/01/2023) Medications Medication Sig Dispensed Refills Start Date [...] 2 03/29/2023 Active Vitamin A & D [address] UNIT Oral Tablet Take by mouth. 0 [...] as of this encounter (statuses as of 06/01/2023) Active Problems Problem Noted Date Diagnosed Date [...] ischemic heart disease 002 Overview: father had DC's in 40's Gastroesophageal reflux disease with esophagitis documented as of this encounter (statuses as of 06/01/2023) Resolved Problems Problem Noted Date Diagnosed Date Resolved Date History of alcohol abuse 05/22/2023 Alcohol dependence, uncomplicated 01/17/2023 05/22/2023 Avascular necrosis of bone of hip 05/10/2022 05/22/2023 Chronic alcohol abuse 06/17/20212023 Facial swelling 06/09/2017 08/07/2019 Urticaria 06/09/2017 08/07/2019 Intestinal obstruction 05/09/201203/02 CLASSICAL MIGRAINE WITHOU ME NTION OF INTRACTABLE MIGRAINE 11/29/2001 08/07/2019 Undiagnosed cardiac murmurs 11/29/2001 03/02/2017 Overview: Not [place] on 11/29/01 documented as of this encounter (statuses as of 06/01/2023) Immunizations Name Administration Dates Next Due HEP A - Hepatitis A (Adult > 18 yrs) 06/06/2020 Pneumococcal Conjugate Vacci ne, 20-valent ([id number]) 06/24/2022 Seasonal Influenza Virus Vac cine, Unspecified [...] money to buy more. Never true 04/17/19 Within the past 12 months, t he [...] encounter Miscellaneous Notes * Addendum Note - Georgia Ochoa MD - 06/01/2023 8:30 AM ESTAddended by: GEORGIA OCHOA on: 06/01/2023 08:30 AM Modules accepted: Orders * Telephone Encounter - Georgia Ochoa MD - 06/01/2023 8:17 AM EST Talked to Carmen Very high ammonia level Advised to increase lactulose 20 g 4 times per day as instructed Was taking 2-3 times per day With high ammonia level, opioid pain med use is risk But pt is in severe pain, due to lt hip Tramadol didn't help at all Tylenol , limited Not able to take NSAIDs, esophageal varices Advised to repeat check ammonia level on mon and follow up I will be out of office next week So this message/ f/u test result will go to provider group Sent out ask a doc to pharm for pain med advice * Telephone Encounter - Lacey Vargas RN [...] Dr. Paz/Dr. Ochoa, Patient's significant other Carmen Justa is asking when provider will order pain [...] 06/06/2023 10:15 AM EST Imaging Radiology [facility] [address] [place] [address] 07/27/2023 9:30 AM EDT Procedure Only Endoscopy, [facility] [address] [place] [address] Trish Villatoro MD [address] [place] [address] 08/07/2023 3:00 PM EDT Office Visit Gastroenterology, [facility] [address] [place] [address] Keyanna Gordon CRNP [address] [place] [address] 11/21/2023 5:40 PM EDT Office Visit [facility] [address] [place] [address] Toby Paz MD [address] [place], [place] [phone] Scheduled Orders Name Type Priority Associated Diagnoses Orde r Schedule AMMONIA Lab Routine Alcoholic cirrhosis of liver without ascites (HCC) Expected: 06/01/2023, Expires: 05/31/2024 COMPREHENSIVE METABOLIC PANEL Lab Routine Alcoholic cirrhosis of liver without ascites (HCC) Expected: 06/01/2023 (Approximate), Expires: 05/31/2024 Scheduled Procedures Name Priority Associated Diagnoses Date/Ti [...] Visit Diagnoses Diagnosis Alcoholic cirrhosis of liver without ascites (HCC)- Primary Alcoholic cirrhosis of liver S/P hip replacement, left documented in this encounter Care Teams Chief Engineer'S Helper Relationship Specialty Start Date End Date Toby Paz MD [address] [place] [address] PCP - General Family Medicine 11/25/14 documented as of this encounter
--- OUTSIDE RECORDS SUMMARY | 2023-06-25 10:30 | External Medical Summary | Summary of Care ---
Author Name Unknown Organization [facility] Address [address] [place] [address] Phone [phone] Care Team Providers Care Marketing Instructor Name Role Phone Toby Paz MD Primary Care Provider +1- [phone] Reason for Visit * Reason Onset Date Comments Other 05/31/2023 Encounter Details Date Type Department Care Team (Late st Contact Info) Description 05/31/2023 Telephone Gastroenterology, [facility] [address] [facility] [place] [id number] Services, Scheduling [address] [place] [address] Other Allergies Active Allergy Reactions Criticality Noted [...] 2 03/29/2023 Active Vitamin A & D [address] UNIT Oral Tablet Take by mouth. 0 [...] Undiagnosed cardiac murmurs 11/29/2001 03/02/2017 Overview: Not [place] on 11/29/01 documented as of this encounter (statuses as of 05/31/2023) Immunizations Name Administration Dates Next Due HEP A - Hepatitis A (Adult > 18 yrs) 06/06/2020 Pneumococcal Conjugate Vacci ne, 20-valent ([id number]) 06/24/2022 Seasonal Influenza Virus Vac cine, Unspecified [...] Description 06/06/2023 10:15 AM EST Imaging Radiology [facility] [address] [place] [address] 07/27/2023 9:30 AM EDT Procedure Only Endoscopy, [facility] [address] [place] [address] Trish Villatoro MD [address] [place] [address] 08/07/2023 3:00 PM EDT Office Visit Gastroenterology, [facility] [address] [place] [address] Keyanna Gordon CRNP [address] [address] 11/21/2023 5:40 PM EDT Office Visit [address] [phone] Toby Paz MD [address] [place] [address] Scheduled Procedures Name Priority Associated Diagnoses Date/Ti [...] filedocumented as of this encounter Care Teams Marketing Instructor Relationship Specialty Start Date End Date Toby Paz MD [address] [place] [address] PCP - General Family Medicine 11/25/14 documented as of this encounter
--- OUTSIDE RECORDS SUMMARY | 2023-06-25 10:30 | External Medical Summary | Summary of Care ---
Author Name Unknown Organization [facility] Address [address] [place] [address] Phone [phone] Care Team Providers Care Naval Surface Fire Support Planner Name Role Phone Toby Paz MD Primary Care Provider +1- [phone] Reason for Visit * Reason Onset Date Comments Med Request 05/29/2023 Oxy Codeine Encounter Details Date Type Department Care Team ([facility] st Contact Info) Description 05/29/2023 Telephone [facility] [address] [place] [address] Toby Paz MD [address] [place] [address] Med Request (Oxy Codeine ) [...] 2 03/29/2023 Active Vitamin A & D [address] UNIT Oral Tablet Take by mouth. 0 [...] ischemic heart disease 002 Overview: father had AZ's in 40's Gastroesophageal reflux disease with esophagitis [...] Undiagnosed cardiac murmurs 11/29/2001 03/02/2017 Overview: Not [place] on 11/29/01 documented as of this encounter (statuses as of 05/29/2023) Immunizations Name Administration Dates Next Due HEP A - Hepatitis A (Adult > 18 yrs) 06/06/2020 Pneumococcal Conjugate Vacci ne, 20-valent ([id number]) 06/24/2022 Seasonal Influenza Virus Vac cine, Unspecified [...] Encounter - Rao Ochoa MD - 05/29/2023 3:55 PM EST Order is in the system already * Telephone Encounter - Ana Dan CCMA [...] called one last time script into the [facility] in [place]. Carmen stated that she would need a script hand written to give the pharmacy due to E-script is down. Carmen is requesting a call back to see why this script can not be gotten. documented in this encounter Plan of Treatment Upcoming Encounters Date Type Department Care Team (Late st Contact Info) Description 06/06/2023 10:15 AM EST Imaging Radiology [facility] [address] [place] [address] 07/27/2023 9:30 AM EDT Procedure Only Endoscopy, [facility] [address] [place] [address] Trish Villatoro MD [address] [place] [address] 08/07/2023 3:00 PM EDT Office Visit Gastroenterology, [facility] [address] [place] [address] Keyanna Gordon CRNP [address] [place] [address] 11/21/2023 5:40 PM EDT Office Visit [facility] [address] [facility] [place] [phone] Toby Paz MD [address] [place] [address] Scheduled Procedures Name Priority Associated Diagnoses Date/Ti me COLONOSCOPY FLEXIBLE PROXIMAL DIAGNOSTIC Recall History of colon polyps Health Maintenance Due Date Last Done Comments Albumin/Creatinine Ratio 1982 Hepatitis B (1 of 3 - 19+ 3-dose series) 07/14/1983 Zoster Vaccines (1 of 2) 2014 COVID-19 Vaccine (1 - 2022- season) 2022 GFR 03/31/2024 03/31/2023, 12/03, 10/17/2022, [...] filedocumented as of this encounter Care Teams Naval Surface Fire Support Planner Relationship Specialty Start Date End Date Toby Paz MD [address] [place] [address] PCP - General Family Medicine 11/25/14 documented as of this encounter
--- OUTSIDE RECORDS SUMMARY | 2023-06-25 10:30 | External Medical Summary ---
Author Name Unknown Address Unknown Organization K01:[facility] [place] [address] [place] [address] Laboratory Report Ordering Provider Test Date Status LIZA LAROSE 05/30/2023 14:21:11 Final Warfarin Therapy
INR: 2 .0-3.0 conventional anticoagulation
INR: 2.5- 3.5 high intensity anticoagulation Observation Date Value Abnormality Reference (Units ) Status PT 05/30/2023 14:21:11 18.2 Above high normal 11 .6-15.2 (seconds) Final INR 05/30/2023 14:21:11 1.5 Above high normal 0. 8-1.2 Final Performing Location [facility] [place] [address] [place] [address]
--- OUTSIDE RECORDS SUMMARY | 2023-06-25 10:30 | External Medical Summary | Summary of Care ---
Author Name Unknown Organization [facility] Address [address] [place] [address] Phone [phone] Care Team Providers Care Agronomy Teacher Name Role Phone Toby Paz MD Primary Care Provider +1- [phone] Reason for Visit * Reason Onset Date Comments Med Request 05/29/2023 Oxy Codeine Encounter Details Date Type Department Care Team ([facility] st Contact Info) Description 05/29/[address] [facility] [address] [place] [address] Toby Paz MD [address] [place] [address] Med Request (Oxy Codeine ) [...] 2 03/29/2023 Active Vitamin A & D [address] UNIT Oral Tablet Take by mouth. 0 [...] Undiagnosed cardiac murmurs 11/29/2001 03/02/2017 Overview: Not [place] on 11/29/01 documented as of this encounter (statuses as of 05/29/2023) Immunizations Name Administration Dates Next Due HEP A - Hepatitis A (Adult > 18 yrs) 06/06/2020 Pneumococcal Conjugate Vacci ne, 20-valent ([id number]) 06/24/2022 Seasonal Influenza Virus Vac cine, Unspecified [...] Telephone Encounter - Leeanna Mcdermott LPN - 05/29/2023 4:01 PM EST Patient has been informed of below message and verbalized understanding. * Telephone Encounter - Rao Ochoa MD [...] time script into the [facility] in [place]. Carmen stated that she would need a [...] [facility] [address] [place] [address] 07/27/2023 9:30 AM EDT Procedure Only Endoscopy, [facility] [address] [place] [address] Trish Villatoro MD [address] [place] [address] 08/07/2023 3:00 PM EDT Office Visit Gastroenterology, [facility] [address] [place] [address] Keyanna Gordon CRNP [address] [place] [address] 11/21/2023 5:40 PM EDT [address] [phone] Toby Paz MD [address] [place] [address] Scheduled Procedures Name Priority Associated Diagnoses Date/Ti [...] filedocumented as of this encounter Care Teams Agronomy Teacher Relationship Specialty Start Date End Date Toby Paz MD [address] [place] [facility] [place] [address] PCP - General Family Medicine 11/25/14 documented as of this encounter
--- OUTSIDE RECORDS SUMMARY | 2023-06-25 10:30 | External Medical Summary ---
Author Name Unknown Address Unknown Organization K01:[facility] [place] [address] [facility] [place] [address] Laboratory Report Ordering Provider Test Date Status MARISOLBRENT LUQUE 05/30/2023 14:21:11 Final Observation Date Value Abnormality Reference (Units ) Status SYNC LEUKOCYTES IN BLOOD BY AUTOMATED COUNT 05/30/2023 14:21:11 4.46 4.00-10.80 (K/uL) Final Segs 05/30/2023 14:21:11 50.3 40.0-75.0 (%) Final Lymphs % 05/30/2023 14:21:11 26.2 18.0-42.0 (%) Final Monos 05/30/2023 14:21:11 13.9 Above high normal 1.0-11.0 (%) Final Eosinophils 05/30/2023 14:21:11 8.7 Above high normal 0.0-6.0 (%) Final Basos 05/30/2023 14:21:11 0.9 0.0-2.0 (%) Final Immature Granulocyte, Percent 05/30/2023 14:21:11 0.0 0.0-2.0 (%) Final Absolute Segs 05/30/2023 14:21:11 2.24 1.80-7.70 (K/uL) Final Lymphs, absolute 05/30/2023 14:21:11 1.17 1.00-4.80 (K/ul) Final Monos, Abs 05/30/2023 14:21:11 0.62 0.00-1.10 (K/uL) Final Eos, Abs 05/30/2023 14:21:11 0.39 0.00-0.70 (K/uL) Final Basos, Abs 05/30/2023 14:21:11 0.04 0.00-0.20 (K/uL) Final Immature Granulocytes, Number 05/30/2023 14:21:11 0.00 0.00-0.20 (K/uL) Final Performing Location [facility] [place] - [address] [facility] [address]
--- OUTSIDE RECORDS SUMMARY | 2023-06-25 10:31 | External Medical Summary | Summary of Care ---
Author Name Unknown Organization [facility] Address [address] [place] [address] Phone [phone] Care Team Providers Care Tour Bus Driver Name Role Phone Toby Paz MD Primary Care Provider +1- [phone] Encounter Details Date Type Department Care Team (Late st Contact Info) Description 05/29/2023 Orders Only [facility] Research Department [address] [place] [address] Edna Redman [employer] Research Other*[id number] Allergies Active Allergy Reactions Criticality Noted Date [...] 2 03/29/2023 Active Vitamin A & D [address] UNIT Oral Tablet Take by mouth. 0 [...] ischemic heart disease 002 Overview: father had [place]'s in 40's Gastroesophageal reflux disease with esophagitis [...] Undiagnosed cardiac murmurs 11/29/2001 03/02/2017 Overview: Not [place] on 11/29/01 documented as of this encounter (statuses as of 05/29/2023) Immunizations Name Administration Dates Next Due HEP A - Hepatitis A (Adult > 18 yrs) 06/06/2020 Pneumococcal Conjugate Vacci ne, 20-valent ([id number]) 06/24/2022 Seasonal Influenza Virus Vac cine, Unspecified [...] Description 06/06/2023 10:15 AM EST Imaging Radiology [facility] [address] [place] [address] 07/27/2023 9:30 AM EDT Procedure Only Endoscopy, [facility] [address] [place] [address] Trish Villatoro MD [address] [place] [address] 08/07/2023 3:00 PM EDT Office Visit Gastroenterology, [facility] [place] [address] Keyanna Gordon CRNP [address] [place] [address] 11/21/2023 5:40 PM EDT Office Visit [facility] [address] [place] [facility] [place] [phone] Toby Paz MD [address] [place] [address] Scheduled Orders Name Type Priority Associated Diagnoses Orde r Schedule MYCODE SUBSEQUENT ADULT Lab Routine [employer] [facility] Other*[id number] Every 6 Months for 2 Occurrences starting 05/29/2023 until 06/17/2024 Scheduled Procedures Name Priority Associated Diagnoses Date/Ti [...] as of this encounter Visit Diagnoses Diagnosis [employer] [facility] Other*[id number] documented in this encounter Care Teams Tour Bus Driver Relationship Specialty Start Date End Date Toby Paz MD [address] [place] [address] PCP - General Family Medicine 11/25/14 documented as of this encounter
--- OUTSIDE RECORDS SUMMARY | 2023-06-25 10:31 | External Medical Summary | Summary of Care ---
Author Name Unknown Organization [facility] Address [address] [place] [facility] [place] [address] Phone [phone] Care Team Providers Care Raw Cheese Worker Name Role Phone Toby Paz MD Primary Care Provider +1- [phone] Reason for Visit * Reason Onset Date Comments Hospital Follow-Up Hospital Follow-Up 05/22/2023 Encounter Details Date Type Department Care Team (Latest Contact Info) Description 05/22/2023 11:20 AM EST Office Visit [facility] [address] [place] [address] Rao Ochoa MD [address] [place] [address] Hepatic encephalopathy (HCC)*; Alcoholic cirrhosis of liver without ascites (HCC); Avascular necrosis of bone of left hip (HCC); S/P hip replacement, left; Hip pain, left; Avascular necrosis of bone of hip, unspecified laterality (HCC); Esophageal varices without bleeding, unspecified esophageal varices type (HCC); Hospital discharge follow-up; Thrombocytopenia (HCC); Old myocardial infarction; HTN, goal below 130/80 Allergies Active Allergy Reactions Criticality Noted Date Comments Other Allergy (See Comments) Anaphylaxis High 06/21/2018 Bee stings- swelling documented as of this encounter (statuses as of 05/22/2023) Medications Medication Sig Dispensed Refills Start Date End Date Status EpiPen 2-Dave 0.3 MG/0.3ML Injection Solution Auto-injector For a severe reaction: Place orange end against the outer thigh, press firmly, hold in place for 10 seconds and go to the Emergency room. 2 Each 1 07/20/2020 Active Iron (Ferrous Sulfate) 325 (65 Fe) MG Oral Tablet Take by mouth. 0 Ac tive Atorvastatin Calcium 20 MG Oral Tablet (Lipitor)Indication [...] 2 03/29/2023 Active Vitamin A & D [address] UNIT Oral Tablet Take by mouth. 0 Active oxyCODONE HCl 5 MG Oral Tablet (Oxy IR)Indications:Hip pain, left,Avascular necrosis of bone of hip, unspecified laterality (HCC) Take 1 Tablet by mouth every 12 hours as needed for Pain, Severe. 30 Tablet 0 04/04/2023 Active Additional Information Patient not taking.Reported on 05/22/2023 traMADol HCl 50 MG Oral Tablet (Ultram) Take 1 Tablet by mouth every 8 hours as needed for Pain, Moderate. 0 Active Triamcinolone Acetonide 0.1 % External Cream (Aristocort)Indicat ions:Psoriasiform eczema Apply topically to affected area 2 times a day. To affected area. 60 g 5 05/10/2023 Active traMADol HCl 50 MG Oral Tablet (Ultram)Indications :Avascular necrosis of bone of left hip (HCC) [...] as of this encounter (statuses as of 05/22/2023) Active Problems Problem Noted Date Diagnosed Date [...] as of this encounter (statuses as of 05/22/2023) Resolved Problems Problem Noted Date Diagnosed Date Resolved Date History of alcohol abuse 05/22/2023 Alcohol dependence, uncomplicated 01/17/2023 05/22/2023 Avascular necrosis of bone of hip 05/10/2022 05/22/2023 Chronic alcohol abuse 06/17/20212023 Facial swelling 06/09/2017 08/07/2019 Urticaria 06/09/2017 08/07/2019 Intestinal obstruction 05/09/201203/02 CLASSICAL MIGRAINE WITHOU ME NTION OF INTRACTABLE MIGRAINE 11/29/2001 08/07/2019 Undiagnosed cardiac murmurs 11/29/2001 03/02/2017 Overview: Not [place] on 11/29/01 documented as of this encounter (statuses as of 05/22/2023) Immunizations Name Administration Dates Next Due HEP A - Hepatitis A (Adult > 18 yrs) 06/06/2020 Pneumococcal Conjugate Vacci ne, 20-valent ([id number]) 06/24/2022 Seasonal Influenza Virus Vac cine, Unspecified [...] Sign Reading Time Taken Comments Blood Pressure 108/60 05/22/2023 11:06 AM EST Pulse 77 05/22/2023 11:06 AM EST Temperature 37 C (98.6 F) 05/22/2023 11:06 AM EST Respiratory Rate 16 05/22/2023 11:06 AM EST Oxygen Saturation 98% 05/22/2023 11:06 AM EST Inhaled Oxygen Concentration - - Weight 83.1 kg (183 lb 1.6 oz) 05/22/2023 11:06 AM EST Height - - Body Mass Index 27.04 05/10/2023 5:59 PM EST documented in this encounter Functional Status Functional Status Response Date of Assess ment Does this person have seriou s difficulty walking or climbing stairs? Yes 08/23/2021 documented as of this encounter Progress Notes * Rao Ochoa MD - 05/22/2023 12:11 PM EST Subjective Mauro Liu is a 57 year old male. Chief Complaint Patient presents with Hospital Follow-Up Hospital Follow-Up HPI: Here for hospital f/u Admission May 14 discharge May 15 Dx: confusion , known liver cirrhosis with hx of hepatic encephalopathy Pt's sx resolved by himself No acute finding at hospital Currently he is back to his baseline, came with his fiance, filled up FMLA form Known cirrhosis, eso varices, scheduled EGD in august, f/u with GI Taking lactulose, spironolactone, lasix BP stable , denies leg swelling, SOB< abd pain , fever, dysuria Recent lt hip replacement due to avascular necrosis Still has moderate pain Discussed about risk of confusion with opioid pain med But tramadol didn't help his pain at all Tylenol - limitation of use Can't take NSAIDs, due to varices and thrombocytopenia Hx of CAD, [place] - denies recent CP PMH: Patient Active Problem List Diagnosis Code Family history of ischemic heart disease Z82.49 Gastroesophageal reflux disease with esophagitis K21.00 Angioedema T78.3XXA Seasonal allergic rhinitis due to pollen J30.1 Dyslipidemia E78.5 Elevated LFTs R79.89 Steatosis of liver K76.0 HTN, goal below 130/80 I10 Old myocardial infarction I25.2 Gastro-esophageal reflux disease without esophagitis K21.9 Thrombocytopenia (HCC) D69.6 Internal hemorrhoids K64.8 Subungual hematoma of finger of left hand S60.10XA Transient ischemic attack G45.9 Cirrhosis of liver (HCC) K74.60 History of appendectomy Z90.49 Hx SBO Z87.19 Anemia in other chronic diseases classified elsewhere D63.8 Iron deficiency anemia due to chronic blood loss D50.0 AAA (abdominal aortic aneurysm) (HCC) I71.40 Major depressive disorder with single episode F32.9 Age-related nuclear cataract, bilateral H25.13 Avascular necrosis of bone of left hip (HCC) M87.052 Hypoproliferative anemia (HCC) D61.9 DDD (degenerative disc disease), lumbosacral M51.37 Other intervertebral disc displacement, lumbosacral region M51.27 S/P hip replacement, left Z96.642 Esophageal varices without bleeding (HCC) I85.00 Current Outpatient Medications Medication Sig Dispense Refill EpiPen 2-Dave 0.3 MG/0.3ML Injection Solution Auto-injector For a severe reaction: Place orange end against the outer thigh, press firmly, hold in place for 10 seconds and go to the Emergency room. 2 Each 1 Iron (Ferrous Sulfate) 325 (65 Fe) MG Oral Tablet Take by mouth. Atorvastatin Calcium 20 MG Oral Tablet (Lipitor) [...] 60 Tablet 2 Vitamin A & D [address] UNIT Oral Tablet Take by mouth. traMADol HCl 50 MG Oral Tablet (Ultram) Take 1 Tablet by mouth every 8 hours as needed for Pain, Moderate. Triamcinolone Acetonide 0.1 % External Cream (Aristocort) Apply topically to affected area 2 times a day. To affected area. 60 g 5 traMADol HCl 50 MG Oral Tablet (Ultram) Take 1 Tablet by mouth every 8 hours as needed for Pain, Severe. 30 Tablet 0 oxyCODONE HCl 5 MG Oral Tablet (Oxy IR) Take 1 Tablet by mouth every 12 hours as needed for Pain, Severe. (Patient not taking: Reported on 05/22/2023) 30 Tablet 0 Current Facility-Administered Medications Medication Dose Route Frequency Provider Last Rate Last Admin albuterol sulfate (PROVENTIL) (2.5 MG/3ML) 0.083% inhalation solution 2.5 mg 2.5 mg Nebulizer Q4H PRN Toby Paz MD 2.5 mg at 05/10/18 1241 Past Medical History: Diagnosis Date Abdominal pain [...] performed by Lopez Shi MD at [facility] COLONOSCOPY, DIAGNOSTIC (RECTUM) 05/18/2018 adenomatous polyps, diverticulosis, repeat 1yr/COLONOSCOPY FLEXIBLE PROXIMAL DIAGNOSTIC performed by Lopez Shi MD at [facility] COLONOSCOPY, DIAGNOSTIC (RECTUM) 05/30/2019 adenomatous polyps, diverticulosis, repeat 3 yrs / COLONOSCOPY FLEXIBLE PROXIMAL DIAGNOSTIC performed by Lopez Shi MD at [facility] COLONOSCOPY, DIAGNOSTIC (RECTUM) 06/30/2021 1-4mm in rectum, otherwise normal / biopsies normal / 5 year recall / COLONOSCOPY FLEXIBLE PROXIMALDIAGNOSTIC performed by Jena Camargo MD at [facility]COPY [facility] EGD, FLEXIBLE, DIAGNOSTIC 05/05/2014 normal bx/ESOPHAGOGASTRODUODENOSCOPY (EGD), FLEXIBLE, TRANSORAL, DIAGNOSTIC performed by Ki Huang MD at [facility] EGD, FLEXIBLE, DIAGNOSTIC 04/11/2016 Schatzki ring, hiatal hernia, gastritis/ESOPHAGOGASTRODUODENOSCOPY (EGD), FLEXIBLE, TRANSORAL, DIAGNOSTIC performed by Ki Huang MD at [facility] EGD, FLEXIBLE, DIAGNOSTIC 01/24/2018 w/ [facility] EGD, FLEXIBLE, DIAGNOSTIC 07/17/2018 normal biopsies/ESOPHAGOGASTRODUODENOSCOPY (EGD), FLEXIBLE, TRANSORAL, DIAGNOSTIC performed by Lopez Shi MD at [facility] EGD, FLEXIBLE, DIAGNOSTIC 07/07/2020 sm hiatal hernia / ESOPHAGOGASTRODUODENOSCOPY (EGD), FLEXIBLE, TRANSORAL, DIAGNOSTIC performed by Lopez Shi MD at [facility] EGD, FLEXIBLE, DIAGNOSTIC 09/03/2021 esophageal varices, repeat 1 yr / ESOPHAGOGASTRODUODENOSCOPY (EGD), FLEXIBLE, TRANSORAL, DIAGNOSTICperformed by Alen Garcia DO at [facility] EGD, FLEXIBLE, DIAGNOSTIC 07/06/2022 Portal hypertensive gastropathy, eso varices, mild-mod inflammation on bx / ESOPHAGOGASTRODUODENOSCOPY (EGD), FLEXIBLE, TRANSORAL, DIAGNOSTIC performed by Lopez Shi MD at [facility] EGD, W/ENDOSCOPIC US 06/26/2018 retained food, repeat study/ESOPHAGOGASTRODUODENOSCOPY (EGD), FLEXIBLE, TRANSORAL, ENDOSCOPIC ULTRASOUND performed by Lopez Shi MD at [facility] EGD, W/ENDOSCOPIC US 07/17/2018 sludge gallbladder/ESOPHAGOGASTRODUODENOSCOPY (EGD), FLEXIBLE, TRANSORAL, ENDOSCOPIC ULTRASOUND performed by Lopez Shi MD at [facility] IR BIOPSY 02/14/2022 LAPAROSCOPY; CHOLECYSTECTOMY REDUCTION OF 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 04/26/2012 Exploratory laparotomy with extensive lysis of adhesions and repair of small bowel serosal REMOVAL OF RUPTURED APPENDIX 1977 Appendectomy, Rupt Appendx+Abscess Review of patient's allergies indicates: Allergen Reactions Other Allergy (See Comments) Anaphylaxis Bee stings- swelling Family History Problem Relation Age of Onset Neurological Disorder Mother Park[place] Heart Disorder Father [place] in 40's Stroke Father Heart failure Father Dementia Father No Known Problems Brother Family Status Relation Status Mo Fa Bro Alive Social History Socioeconomic History Marital status: Single Spouse name: Not on file Number of children: Not on file Years of education: Not on file Highest education level: Not on file Occupational History Not on file Tobacco Use Smoking status: Former Current packs/day: 0.00 Average packs/day: 0.1 packs/day for 20.0 years (2.0 ttl pk-yrs) Types: Cigarettes Start date: 05/10/1995 Quit date: 05/10/2015 Years since quittin.0 Passive [...] Housing Stability: Not on file Review of Systems Constitutional: Positive for activity change (still left hip pain) and fatigue. Negative for appetite change, chills, diaphoresis, fever and unexpected weight change. HENT: Negative for congestion and hearing loss. Eyes: Negative for visual disturbance. Respiratory: Negative for cough, chest tightness, shortness of breath and wheezing. Cardiovascular: Negative for chest pain, palpitations and leg swelling. Gastrointestinal: Positive for nausea. Negative for abdominal distention, abdominal pain, constipation, diarrhea and vomiting. Endocrine: Negative. Genitourinary: Negative for dysuria, flank pain and hematuria. Musculoskeletal: Positive for arthralgias and gait problem. Skin: Negative for color change. Allergic/Immunologic: Positive for immunocompromised state. Neurological: Negative for dizziness, speech difficulty, weakness, light- headedness and headaches. Hematological: Bruises/bleeds easily. Psychiatric/Behavioral: Positive for dysphoric mood and sleep disturbance. Negative for agitation and behavioral problems. Objective BP 108/60 | Pulse 77 | Temp 37 C (98.6 F) (Infrared ) | Resp 16 | Wt 83.1 kg (183 lb 1.6 oz) | SpO2 98% | BMI 27.04 kg/m | BSA 2.01 m Physical Exam Constitutional: General: He is not in acute distress. Appearance: Normal appearance. He is not ill-appearing, toxic-appearing or diaphoretic. HENT: Head: Normocephalic and atraumatic. Nose: Nose normal. Eyes: Extraocular Movements: Extraocular movements intact. Cardiovascular: Rate and Rhythm: Normal rate and regular rhythm. Pulses: Normal pulses. Heart sounds: Murmur heard. Pulmonary: Effort: Pulmonary effort is normal. No respiratory distress. Breath sounds: Normal breath sounds. No stridor. No wheezing, rhonchi or rales. Chest: Chest wall: No tenderness. Abdominal: General: There is no distension. Palpations: Abdomen is soft. Tenderness: There is no abdominal tenderness. Musculoskeletal: Right lower leg: No edema. Left lower leg: No edema. Neurological: General: No focal deficit present. Mental Status: He is alert and oriented to person, place, and time. Cranial Nerves: No cranial nerve deficit. Motor: No weakness. Psychiatric: Behavior: Behavior normal. ASSESSMENT/PLAN: Hepatic encephalopathy (HCC) (Primary) - COMPREHENSIVE METABOLIC PANEL; Future; Expected date: 05/22/2023 - CBC WITH WBC DIFFERENTIAL; Future; Expected date: 05/22/2023 - AMMONIA; Future; Expected date: 05/22/2023 Alcoholic cirrhosis of liver without ascites (HCC) - COMPREHENSIVE METABOLIC PANEL; Future; Expected date: 05/22/2023 - CBC WITH WBC DIFFERENTIAL; Future; Expected date: 05/22/2023 - AMMONIA; Future; Expected date: 05/22/2023 Avascular necrosis of bone of left hip (HCC) S/P hip replacement, left Hip pain, left Avascular necrosis of bone of hip, unspecified laterality (HCC) Esophageal varices without bleeding, unspecified esophageal varices type (HCC) Hospital discharge follow-up - DISCH MED RECON CUR MED LIS Thrombocytopenia (HCC) Old myocardial infarction HTN, goal below 130/80 F/u blood tests in one mo Cont current meds F/u with GI Rao Ochoa MD documented in this encounter Nursing Notes * Dayana Menjivar LPN - 05/22/2023 11:03 AM EST Chief Complaint Patient presents with Hospital Follow-Up documented in this encounter Plan of Treatment Upcoming Encounters Date Type Department Care Team (Late st Contact Info) Description 07/27/2023 9:30 AM EDT Procedure Only Endoscopy, [facility] [address] [place] [address] Trish Villatoro MD [address] [place] [address] 08/07/2023 3:00 PM EDT Office Visit Gastroenterology, [facility] [address] [place] [address] Keyanna Gordon CRNP [address] [place] [address] 11/21/2023 5:40 PM EDT Office Visit [facility] [address] [place] [address] Toby Paz MD [address] [place] [address] Scheduled Orders Name Type Priority Associated Diagnoses Orde r Schedule COMPREHENSIVE METABOLIC PANEL Lab Routine Hepatic encephalopathy (HCC) Alcoholic cirrhosis of liver without ascites (HCC) Expected: 05/22/2023 (Approximate), Expires: 05/21/2024 CBC WITH WBC DIFFERENTIAL Lab Routine Hepatic encephalopathy (HCC) Alcoholic cirrhosis of liver without ascites (HCC) Expected: 05/22/2023 (Approximate), Expires: 05/22/2024 AMMONIA Lab Routine Hepatic encephalopathy (HCC) Alcoholic cirrhosis of liver without ascites (HCC) Expected: 05/22/2023, Expires: 05/22/2024 Scheduled Procedures Name Priority Associated Diagnoses Date/Ti [...] this encounter Visit Diagnoses Diagnosis Hepatic encephalopathy (HCC)- Primary Hepatic encephalopathy Alcoholic cirrhosis of liver without ascites (HCC) Alcoholic cirrhosis of liver Avascular necrosis of bone of hip, unspecified laterality (HCC) S/P hip replacement, left Hip pain, left Pain in joint, pelvic region and thigh Esophageal varices without bleeding, unspecified esophageal varices type (HCC) Hospital discharge follow-up Other follow-up examination Thrombocytopenia (HCC) Thrombocytopenia, unspecified Old myocardial infarction HTN, goal below 130/80 Unspecified essential hypertension documented in this encounter Care Teams Raw Cheese Worker Relationship Specialty Start Date End Date Toby Paz MD [address] [place] [address] PCP - General Family Medicine 11/25/14 documented as of this encounter"
--- OUTSIDE RECORDS SUMMARY | 2023-06-25 10:31 | External Medical Summary | Summary of Care ---
Author Name Unknown Organization [facility] Address [address] [facility] [address] Phone [phone] Care Team Providers Care Boat Dock Operator Name Role Phone Toby Paz MD Primary Care Provider +1- [phone] Encounter Details Date Type Department Care Team (Late st Contact Info) Description 05/12/2023 Telephone [facility] [address] [place] [address] Toby Paz MD [address] [place] [address] Allergies Active Allergy Reactions Criticality Noted Date Comments Other Allergy (See Comments) Anaphylaxis High 06/21/2018 Bee stings- swelling documented as of this encounter (statuses as of 05/15/2023) Medications Medication Sig Dispensed Refills Start Date [...] 2 03/29/2023 Active Vitamin A & D [address] UNIT Oral Tablet Take by mouth. 0 [...] as of this encounter (statuses as of 05/15/2023) Active Problems Problem Noted Date Diagnosed Date [...] as of this encounter (statuses as of 05/15/2023) Resolved Problems Problem Noted Date Diagnosed Date Resolved Date Facial swelling 06/09/2017 08/07/2019 Urticaria 06/09/2017 08/07/2019 Intestinal obstruction 05/09/201203/02 CLASSICAL MIGRAINE WITHOU ME NTION OF INTRACTABLE MIGRAINE 11/29/2001 08/07/2019 Undiagnosed cardiac murmurs 11/29/2001 03/02/2017 Overview: Not [place] on 11/29/01 documented as of this encounter (statuses as of 05/15/2023) Immunizations Name Administration Dates Next Due HEP A - Hepatitis A (Adult > 18 yrs) 06/06/2020 Pneumococcal Conjugate Vacci ne, 20-valent ([id number]) 06/24/2022 Seasonal Influenza Virus Vac cine, Unspecified [...] Telephone Encounter - Micaela Cherry LPN - 05/15/2023 12:53 PM EST Called and spoke to [facility] again as no one had returned call. They noted pt had canceled all of his future appointments with them. According to his chart he is admitted to [facility] at this time * Telephone Encounter - Micaela Cherry LPN - 05/12/2023 9:[address] Sharpe noted platelet count to be 43 on recent labs, he wanted to make [facility] aware of results. Called office and was transferred to a scheduling voicemail, was told the tariff clerk handles all of these concerns. Left message for tariff clerk to return call to the office. documented in this encounter Plan of Treatment Upcoming Encounters Date Type Department Care Team (Late st Contact Info) Description 07/27/2023 9:30 AM EDT Procedure Only Endoscopy, [facility] [address] [place] [address] Trish Villatoro MD [address] [place] [address] 08/07/2023 3:00 PM EDT Office Visit Gastroenterology, [facility] [address] [place] [address] Keyanna Gordon CRNP [address] [place] [address] 11/21/2023 5:40 PM EDT Office Visit [facility] [address] [place] [phone] Toby Paz MD [address], [place] [phone] Scheduled Procedures Name Priority Associated Diagnoses Date/Ti [...] filedocumented as of this encounter Care Teams Boat Dock Operator Relationship Specialty Start Date End Date Toby Paz MD [address] [place] [address] PCP - General Family Medicine 11/25/14 documented as of this encounter
--- OUTSIDE RECORDS SUMMARY | 2023-06-25 10:31 | External Medical Summary | Summary of Care ---
Author Name Unknown Organization [facility] Address [address] [place] [address] Phone [phone] Care Team Providers Care Machine Gun Mechanic Name Role Phone Toby Paz MD Primary Care Provider +1- [phone] Reason for Visit * Reason Onset Date Comments Med Request 05/29/2023 Oxy Codeine Encounter Details Date Type Department Care Team ([facility] st Contact Info) Description 05/29/2023 Telephone [facility] [address] [place] [address] Toby Paz MD [address] [place] [address] Med Request (Oxy Codeine ) [...] 2 03/29/2023 Active Vitamin A & D [address] UNIT Oral Tablet Take by mouth. 0 [...] Undiagnosed cardiac murmurs 11/29/2001 03/02/2017 Overview: Not [place] on 11/29/01 documented as of this encounter (statuses as of 05/29/2023) Immunizations Name Administration Dates Next Due HEP A - Hepatitis A (Adult > 18 yrs) 06/06/2020 Pneumococcal Conjugate Vacci ne, 20-valent ([id number]) 06/24/2022 Seasonal Influenza Virus Vac cine, Unspecified [...] time script into the [facility] in [place]. Carmen stated that she would need a script hand written to give the pharmacy due to E-script is down. Carmen is requesting a call back to see why this script can not be gotten. documented in this encounter Plan of Treatment Upcoming Encounters Date Type Department Care Team (Late st Contact Info) Description 06/06/2023 10:15 AM EST Imaging Radiology [facility] [address] [place] [address] 07/27/2023 9:30 AM EDT Procedure Only End[facility], [facility] [address] [facility] [place] [address] Trish Villatoro MD [address] [place] [address] 08/07/2023 3:00 PM EDT Office Visit Gastroenterology, [facility] [address] [facility] [place] [address] Keyanna Gordon CRNP [address] [place] [address] 11/21/2023 5:40 PM EDT Office Visit [facility] [address] [place] [phone] Toby Paz MD [address] [place] [address] Scheduled Procedures Name Priority Associated Diagnoses Date/Ti [...] filedocumented as of this encounter Care Teams Machine Gun Mechanic Relationship Specialty Start Date End Date Toby Paz MD [address] [place] [address] PCP - General Family Medicine 11/25/14 documented as of this encounter
--- OUTSIDE RECORDS SUMMARY | 2023-06-25 10:31 | External Medical Summary | Summary of Care ---
Author Name Unknown Organization [facility] Address [address] [place] [address] Phone [phone] Care Team Providers Care Manager Etl Name Role Phone Toby Paz MD Primary Care Provider +1- [phone] Reason for Visit * Reason Onset Date Comments Appointment 05/17/2023 Encounter Details Date Type Department Care Team (Late st Contact Info) Description 05/17/2023 Telephone [facility] [address] [place] [address] Lacey Vargas, RONA [address] [place] [address] Appointment Allergies Active Allergy Reactions Criticality Noted Date Comments Other Allergy (See Comments) Anaphylaxis High 06/21/2018 Bee stings- swelling documented as of this encounter (statuses as of 05/17/2023) Medications Medication Sig Dispensed Refills Start Date [...] 2 03/29/2023 Active Vitamin A & D [address] UNIT Oral Tablet Take by mouth. 0 Active oxyCODONE HCl 5 MG Oral Tablet (Oxy IR)Indications:Hip pain, left,Avascular necrosis of bone of hip, unspecified laterality (HCC) Take 1 Tablet by mouth every 12 hours as needed for Pain, Severe. 30 Tablet 0 04/04/2023 Active traMADol HCl 50 MG Oral Tablet [...] as of this encounter (statuses as of 05/17/2023) Active Problems Problem Noted Date Diagnosed Date [...] as of this encounter (statuses as of 05/17/2023) Resolved Problems Problem Noted Date Diagnosed Date Resolved Date Facial swelling 06/09/2017 08/07/2019 Urticaria 06/09/2017 08/07/2019 Intestinal obstruction 05/09/201203/02 CLASSICAL MIGRAINE WITHOU ME NTION OF INTRACTABLE MIGRAINE 11/29/2001 08/07/2019 Undiagnosed cardiac murmurs 11/29/2001 03/02/2017 Overview: Not [place] on 11/29/01 documented as of this encounter (statuses as of 05/17/2023) Immunizations Name Administration Dates Next Due HEP A - Hepatitis A (Adult > 18 yrs) 06/06/2020 Pneumococcal Conjugate Vacci ne, 20-valent ([id number]) 06/24/2022 Seasonal Influenza Virus Vac cine, Unspecified [...] encounter Miscellaneous Notes * Telephone Encounter - Maylin Sutton OSA - 05/17/2023 10:17 AM EST LMOM to schedule. Patient can be scheduled with ANY provider. 05/17/2023 * Telephone Encounter - Lacey Vargas RN - 05/17/2023 7:27 AM EST Maylin Mauro was recently in the hospital for Cirrhosis, he needs a hospital discharge appointment-patientnot very good at following thru, can you please give him a call to assist in scheduling? Thank you Lacey Vargas RN documented in this encounter Plan of Treatment Upcoming Encounters Date Type Department Care Team (Late st Contact Info) Description 07/27/2023 9:30 AM EDT Procedure Only Endoscopy, [facility] [address] [address] Trish Villatoro MD [address] [place] [address] 08/07/2023 3:00 PM EDT Office Visit Gastroenterology, [facility] [address] [place] [address] Keyanna Gordon CRNP [address] [place] [address] 11/21/2023 5:40 PM EDT Office Visit [facility] [address] [place] [phone] Toby Paz MD [address] [place] [address] Scheduled Procedures Name Priority Associated Diagnoses Date/Ti [...] filedocumented as of this encounter Care Teams Manager Etl Relationship Specialty Start Date End Date Toby Paz MD [address] [facility] [place] [place] [address] PCP - General Family Medicine 11/25/14 documented as of this encounter
--- OUTSIDE RECORDS SUMMARY | 2023-06-25 10:31 | External Medical Summary | Summary of Care ---
Author Name Unknown Organization [facility] Address [address] [place] [address] Phone [phone] Care Team Providers Care Liquefaction And Regasification Helper Name Role Phone Toby Paz MD Primary Care Provider +1- [phone] Reason for Visit * Reason Onset Date Comments Hospital Follow-Up 05/18/2023 Encounter Details Date Type Department Care Team (Late st Contact Info) Description 05/18/2023 Telephone [facility] [address] [place] [address] Toby Paz MD [address] [place] [address] Hospital Follow-Up Allergies Active Allergy Reactions Criticality Noted Date Comments Other Allergy (See Comments) Anaphylaxis High 06/21/2018 Bee stings- swelling documented as of this encounter (statuses as of 05/19/2023) Medications Medication Sig Dispensed Refills Start Date [...] 2 03/29/2023 Active Vitamin A & D [address] UNIT Oral Tablet Take by mouth. 0 [...] as of this encounter (statuses as of 05/19/2023) Active Problems Problem Noted Date Diagnosed Date [...] as of this encounter (statuses as of 05/19/2023) Resolved Problems Problem Noted Date Diagnosed Date Resolved Date Facial swelling 06/09/2017 08/07/2019 Urticaria 06/09/2017 08/07/2019 Intestinal obstruction 05/09/201203/02 CLASSICAL MIGRAINE WITHOU ME NTION OF INTRACTABLE MIGRAINE 11/29/2001 08/07/2019 Undiagnosed cardiac murmurs 11/29/2001 03/02/2017 Overview: Not [place] on 11/29/01 documented as of this encounter (statuses as of 05/19/2023) Immunizations Name Administration Dates Next Due HEP A - Hepatitis A (Adult > 18 yrs) 06/06/2020 Pneumococcal Conjugate Vacci ne, 20-valent ([id number]) 06/24/2022 Seasonal Influenza Virus Vac cine, Unspecified [...] Telephone Encounter - Maylin Sutton OSA - 05/19/2023 3:03 PM EST Patient has been scheduled. 05/19/2023 * Telephone Encounter - Deepthi Patrick OSA - 05/18/2023 5:36 PM EST No Appointments Available Patient declined appointments?: No What Visit Type is needed? Hospital Discharge If Acute Visit Type is needed, were surrounding clinics offered to patient (Yes/No)? N/A Was patient offered appointments with other available providers (Yes/No)? N/A See Call Details? (Yes or No): No documented in this encounter Plan of Treatment Upcoming Encounters Date Type Department Care Team (Late st Contact Info) Description 05/22/2023 11:20 AM EST Office Visit [facility] [address] [place] [address] Rao Ochoa MD [address] [place] [address] 07/27/2023 9:30 AM EDT Procedure Only Endoscopy, Aron Floresy [address] [place] [address] Trish Villatoro MD [address] [place] [place] [address] 08/07/2023 3:00 PM EDT Office Visit [facility] [address] [place] [address] Keyanna Gordon CRNP [address] [place] [address] 11/21/2023 5:40 PM EDT Office Visit [facility] [address] [place] [phone] Toby Paz MD [address] [place] [address] Scheduled Procedures Name Priority Associated Diagnoses Date/Ti me COLONOSCOPY FLEXIBLE PROXIMAL DIAGNOSTIC Recall History of colon polyps Health Maintenance Due Date Last Done Comments Albumin/Creatinine Ratio 1982 Hepatitis B (1 of 3 - 19+ 3-dose series) 07/14/1983 Zoster Vaccines (1 of 2) 2014 COVID-19 Vaccine ( - 2022- season) 2022 GFR 03/31/2024 03/31/2023, [...] filedocumented as of this encounter Care Teams Liquefaction And Regasification Helper Relationship Specialty Start Date End Date Toby Paz MD [address] [place] [address] PCP - General Family Medicine 11/25/14 documented as of this encounter
--- OUTSIDE RECORDS SUMMARY | 2023-06-25 10:31 | External Medical Summary | Summary of Care ---
Author Name Unknown Organization [facility] Address [address] [place] [facility] [place] [address] Phone [phone] Care Team Providers Care Pitching Coach Name Role Phone Toby Paz MD Primary Care Provider +1- [phone] Reason for Visit * Reason Onset Date Comments Advice 05/18/2023 Encounter Details Date Type Department Care Team (Late st Contact Info) Description 05/18/2023 Telephone [facility] [address] [place] [address] Toby Paz MD [address] [place] [address] Advice Allergies Active Allergy Reactions Criticality Noted [...] 2 03/29/2023 Active Vitamin A & D [address] UNIT Oral Tablet Take by mouth. 0 [...] Undiagnosed cardiac murmurs 11/29/2001 03/02/2017 Overview: Not [place] on 11/29/01 documented as of this encounter (statuses as of 05/22/2023) Immunizations Name Administration Dates Next Due HEP A - Hepatitis A (Adult > 18 yrs) 06/06/2020 Pneumococcal Conjugate Vacci ne, 20-valent ([id number]) 06/24/2022 Seasonal Influenza Virus Vac cine, Unspecified [...] Telephone Encounter - Maylin Sutton OSA - 05/22/2023 10:48 AM EST Patient has been scheduled. 05/22/2023 * Telephone Encounter - Maylin Sutton OSA - 05/18/2023 10:45 AM EST LMOM. Please schedule patient with ANY PROVIDER IN THE OFFICE. 05/18/2023 * Telephone Encounter - Inocencia Castellanos OSA - 05/18/2023 8:45 AM EST No Appointments Available Patient declined appointments?: Yes What Visit Type is needed? Hospital Discharge If Acute Visit Type is needed, were surrounding clinics offered to patient (Yes/No)? N/A Was patient offered appointments with other available providers (Yes/No)? No, explain none avail within 7-10 days. See Call Details? (Yes or No): No, pt dc from [facility] on 05/15/23. Pt had knee surgery on 04/10/23and has since been experiencing severe pain that shoots up to his left arm pit. documented in this encounter Plan of Treatment Upcoming Encounters Date Type Department Care Team (Late st Contact Info) Description 05/22/2023 11:20 AM EST Office Visit [facility] [address] [facility] [place] [facility] [place] [phone] Rao Ochoa MD [address] [facility] [place] [facility] [place] [address] 07/27/2023 9:30 AM EDT Procedure Only Endoscopy, [facility] [address] [place] [address] Trish Villatoro MD [address] [place] [address] 08/07/2023 3:00 PM EDT Office Visit Gastroenterology, [facility] [address] [facility] [place] [place] [address] Keyanna Gordon CRNP [address] [place] [address] 11/21/2023 5:40 PM EDT Office Visit [facility] [address] [facility] [place] [facility] [place] [phone] Toby Paz MD [address] [place] [address] Scheduled Procedures Name Priority Associated Diagnoses Date/Ti [...] filedocumented as of this encounter Care Teams Pitching Coach Relationship Specialty Start Date End Date Toby Paz MD [address] [place] [address] PCP - General Family Medicine 11/25/14 documented as of this encounter
--- OUTSIDE RECORDS SUMMARY | 2023-06-25 10:31 | External Medical Summary | Summary of Care ---
Author Name Unknown Organization [facility] Address [address] [place] [address] Phone [phone] Care Team Providers Care Amphibious Operations Officer Name Role Phone Toby Paz MD Primary Care Provider +1- [phone] Reason for Visit * Reason Onset Date Comments Medication Refill 05/16/2023 Encounter Details Date Type Department Care Team ([facility] st Contact Info) Description 05/16/2023 Telephone [facility] [address] [place] [address] Lacey Vargas, RN [address] [place] [address] Medication Refill Allergies Active Allergy Reactions Criticality Noted Date [...] 2 03/29/2023 Active Vitamin A & D [address] UNIT Oral Tablet Take by mouth. 0 [...] Undiagnosed cardiac murmurs 11/29/2001 03/02/2017 Overview: Not [place] on 11/29/01 documented as of this encounter (statuses as of 05/17/2023) Immunizations Name Administration Dates Next Due HEP A - Hepatitis A (Adult > 18 yrs) 06/06/2020 Pneumococcal Conjugate Vacci ne, 20-valent ([id number]) 06/24/2022 Seasonal Influenza Virus Vac cine, Unspecified [...] Encounter - Lacey Vargas RN - 05/17/2023 7:25 AM EST Patient is aware that he needs a PCP follow up appointment, will have scheduling give him a call Lacey Vargas RN * Telephone Encounter - Toby Paz MD - 05/16/2023 3:55 PM EST He needs a hospital follow up appt in our office - please get scheduled. Can address plan for pain management at that time. Tramadol sent to [facility]. * Telephone Encounter - Lacey Vargas RN - 05/16/2023 3:[address] Paz, I spoke with Mauro today, he was discharged from [facility] on 05/15/23-went in with confusion,Cirrhosis, I will put the discharge summary on your desk. Patient is complaining of pain to his legs & right hip, rates the pain at a 8-9/10, worse at night when he is trying to sleep. Patient states he is out of his pain medication, he is asking for a refill on the Tramadol, says ithelped his pain enough so he could fall asleep. Please route to [facility] in [place]-thanks Lacey Vargas, RN documented in this encounter Plan of Treatment Upcoming Encounters Date Type Department Care Team (Late st Contact Info) Description 07/27/2023 9:30 AM EDT Procedure Only Endoscopy, [place] [address] [place] [address] Trish Villatoro MD [address] [place] [address] 08/07/2023 3:00 PM EDT Office Visit Gastroenterology, [facility] [address] [place] [address] Keynana Gordon CRNP [address] [place] [address] 11/21/2023 5:40 PM EDT Office Visit [facility] [address] [place] [phone] Toby Paz MD [address] [place] [address] Scheduled Procedures Name Priority Associated Diagnoses Date/Ti [...] hip (HCC)- Primary documented in this encounter Care Teams Amphibious Operations Officer Relationship Specialty Start Date End Date Toby Paz MD [address] [place] [address] PCP - General Family Medicine 11/25/14 documented as of this encounter
--- OUTSIDE RECORDS SUMMARY | 2023-06-25 10:31 | External Medical Summary | Summary of Care ---
Author Name Unknown Organization [facility] Address [address] [place] [address] Phone [phone] Care Team Providers Care Entry Level Staff Accountant Name Role Phone Toby Paz MD Primary Care Provider +1- [phone] Reason for Visit * Reason Onset Date Comments Advice 05/18/2023 Encounter Details Date Type Department Care Team (Late st Contact Info) Description 05/18/2023 Telephone [facility] [address] [place] [address] Toby Paz MD [address] [place] [address] Advice Allergies Active Allergy Reactions Criticality Noted Date Comments Other Allergy (See Comments) Anaphylaxis High 06/21/2018 Bee stings- swelling documented as of this encounter (statuses as of 05/18/2023) Medications Medication Sig Dispensed Refills Start Date [...] 2 03/29/2023 Active Vitamin A & D [address] UNIT Oral Tablet Take by mouth. 0 [...] as of this encounter (statuses as of 05/18/2023) Active Problems Problem Noted Date Diagnosed Date [...] ischemic heart disease 002 Overview: father had IN's in 40's Gastroesophageal reflux disease with esophagitis documented as of this encounter (statuses as of 05/18/2023) Resolved Problems Problem Noted Date Diagnosed Date Resolved Date Facial swelling 06/09/2017 08/07/2019 Urticaria 06/09/2017 08/07/2019 Intestinal obstruction 05/09/201203/02 CLASSICAL MIGRAINE WITHOU ME NTION OF INTRACTABLE MIGRAINE 11/29/2001 08/07/2019 Undiagnosed cardiac murmurs 11/29/2001 03/02/2017 Overview: Not [place] on 11/29/01 documented as of this encounter (statuses as of 05/18/2023) Immunizations Name Administration Dates Next Due HEP A - Hepatitis A (Adult > 18 yrs) 06/06/2020 Pneumococcal Conjugate Vacci ne, 20-valent ([id number]) 06/24/2022 Seasonal Influenza Virus Vac cine, Unspecified [...] (Yes or No): No, pt dc from [facility]. Pt had knee surgery on 04/10/23and has since been experiencing severe pain that shoots up to his left arm pit. documented in this encounter Plan of Treatment Upcoming Encounters Date Type Department Care Team (Late st Contact Info) Description 07/27/2023 9:30 AM EDT Procedure Only Endoscopy, [facility] [address] [place] [address] Trish Villatoro MD [address] [place] [place] [address] 08/07/2023 3:00 PM EDT Office Visit Gastroenterology, [facility] [address] [place] [address] Keyanna Gordon CRNP [address] [place] [address] 11/21/2023 5:40 PM EDT Office Visit [facility] [address] [place] [address] Toby Paz MD [address] [place] [address] Scheduled Procedures Name Priority Associated Diagnoses Date/Ti [...] filedocumented as of this encounter Care Teams Entry Level Staff Accountant Relationship Specialty Start Date End Date Toby Paz MD [address] [place] [address] PCP - General Family Medicine 11/25/14 documented as of this encounter
--- OUTSIDE RECORDS SUMMARY | 2023-06-25 10:31 | External Medical Summary | Summary of Care ---
Author Name Unknown Organization [facility] Address [address] [facility] [place] [address] Phone [phone] Care Team Providers Care Landscape Laborer Name Role Phone Toby Paz MD Primary Care Provider [phone] Reason for Visit * Reason Comments Follow Up Very shaky and forge tful. Sometimes does odd things sometimes. feels sometimes she's afraid to leave him alone. Very itchy. Encounter Details Date Type Department Care Team (Late st Contact Info) Description 05/26/2023 1:30 PM EST Office Visit Gastroenterology, [facility] [address] [place] [address] Keyanna Gordon, YOGESH [address] [place] [address] Alcoholic cirrhosis of liver with ascites (HCC)* Allergies Active Allergy Reactions Criticality Noted Date Comments Other Allergy (See Comments) Anaphylaxis High 06/21/2018 Bee stings- swelling documented as of this encounter (statuses as of 05/26/2023) Medications Medication Sig Dispensed Refills Start Date [...] 2 03/29/2023 Active Vitamin A & D [address] UNIT Oral Tablet Take by mouth. 0 Active traMADol HCl 50 MG Oral Tablet (Ultram) Take 1 Tablet by mouth every 8 hours as needed for Pain, Moderate. 0 Active Triamcinolone Acetonide 0.1 % External Cream (Aristocort)Indic ations:Psoriasifo rm eczema Apply topically to affected area 2 times a day. To affected area. 60 g 5 05/10/2023 Active traMADol HCl 50 MG Oral Tablet (Ultram)Indicatio ns:Avascular necrosis of bone of left hip (HCC) Take 1 Tablet by mouth every 8 hours as needed for Pain, Severe. 30 Tablet 0 05/16/2023 Active oxyCODONE HCl 5 MG Oral Tablet (Oxy IR)Indications:Hi p pain, left,Avascular necrosis of bone of hip, unspecified laterality (HCC) Take 1 Tablet by mouth every 12 hours as needed for Pain, Severe. 30 Tablet 0 04/04/2023 4 Discontinued Hospital, Clinic, or Other Facility Administered Medication Ordered Dose Route Frequency Start Date End Date Status albuterol sulfate (PROVENTIL) (2.5 MG/3ML) 0.083% inhalation solution 2.5 mgIndications:SOB (shortness of breath) 2.5 mg NEBULIZER Q4H PRN 05/10/2018 Act guzman documented as of this encounter (statuses as of 05/26/2023) Active Problems Problem Noted Date Diagnosed Date [...] as of this encounter (statuses as of 05/26/2023) Resolved Problems Problem Noted Date Diagnosed Date Resolved Date History of alcohol abuse 05/22/2023 Alcohol dependence, uncomplicated 01/17/2023 05/22/2023 Avascular necrosis of bone of hip 05/10/2022 05/22/2023 Chronic alcohol abuse 06/17/20212023 Facial swelling 06/09/2017 08/07/2019 Urticaria 06/09/2017 08/07/2019 Intestinal obstruction 05/09/201203/02 CLASSICAL MIGRAINE WITHOU ME NTION OF INTRACTABLE MIGRAINE 11/29/2001 08/07/2019 Undiagnosed cardiac murmurs 11/29/2001 03/02/2017 Overview: Not [place] on 11/29/01 documented as of this encounter (statuses as of 05/26/2023) Immunizations Name Administration Dates Next Due HEP A - Hepatitis A (Adult > 18 yrs) 06/06/2020 Pneumococcal Conjugate Vacci ne, 20-valent ([id number]) 06/24/2022 Seasonal Influenza Virus Vac cine, Unspecified [...] Sign Reading Time Taken Comments Blood Pressure 130/63 05/26/2023 1:28 PM EST Pulse 73 05/26/2023 1:28 PM EST Temperature 36.7 C (98.1 F) 05/26/2023 1:28 PM ES T Respiratory Rate - - Oxygen Saturation 97% 05/26/2023 1:28 PM EST Inhaled Oxygen Concentration - - Weight 82.4 kg (181 lb 11.2 oz) 05/26/2023 1:28 PM EST Height - - Body Mass Index 26.83 05/10/2023 5:59 PM EST documented in this encounter Functional Status Functional Status Response Date of Assess ment Does this person have seriou s difficulty walking or climbing stairs? Yes 08/23/2021 documented as of this encounter Progress Notes * Keyanna Gordon CRNP - 05/26/2023 5:15 AM EST CC: Confusion, overall worsening of liver dx HPI: Recall that year old M with history of migraines, bowel obstruction, HTN, GERD, DDD and decompensated ETOH cirrhosis complicated by EV, ascites, and HE. His Fiance w whom he lives had messaged earlier this week that he was confused and she had to leavework to take care of him and she was reaching out for a resolution regarding his intermittent confusion. Today, in the office, he c/o bilat knee pain and tells me that since his surgery, he has had bilat hand tremors (very difficult to hold/drink coffee). He says that he isn't able to sleep at night dueto the pain, that Tramadol doesn't work. I suggested one Tylenol just at bedtime w the Tramodol buthe tells me that Tylenol never works. Hepatic Encephalopathy: Was hospitalized at [facility] occasions previously and [facility] inNov 2021 and earlier this month for confusion with quick resolution each time. His hospitalizationshave been related either to having confusion when taking narcotics for orthopeudic pain or most recently, he told me that he had not been confused,that he presented asking for pain medication for hiship -- on which he had undergone joint replacement on 04/10/23. I was able to speak w his Dennis about this today. She verifies that he was confused at the time that she would take him to the hospitalthe day prior. Tx for hepatic encephalopathy has been Rifixamin 550mg BID and Lactulose titrated to 3BMs or more/day. They tell me he does take lactulose 2 times every day, is passing BMs 3 or more times/day and and despite that still gets confused at times when confused usually knows where he is he always knows whohis mustafa and his daughter are, But he is unable to tell them what day or month it is and unable to retain any information that they are talking about. He had a day like this a few days ago at the time that his dennis had written the e-mail asking for him to be seen. His dennis and his daughter help take care of him he needs to be home alone for about 2-1/2 hours every day, during the time that his daughter leaves for work around 2:30 p.m. prior to his fimadysone returning from her day shift job in the afternoon. His fiance has an FMLA giving her 6days/month thatshe can leave to care for him, but she is exceeding this. MELD 3.0: 13 at 03/31/2023 10:15 AM [...] years Sex: Male at 03/31/2023 10:15 AM Varices: EGD July 2022: Grade I EV, [...] 3. Additional findings and details as above. EXAM: BP 130/63 (BP Site: Right Arm, BP Position: Sitting) | Pulse 73 | Temp 36.7 C (98.1 F) (Infrared ) | Wt 82.4 kg (181 lb 11.2 oz) | SpO2 97% | BMI 26.83 kg/m | BSA 2 m GENERAL: 57 year old male who walks very slowly with a cane and holding his fiance's hand. SKIN: Mild jaundice, no rashes, ulcers, or spider angiomata HEENT: normocephalic, sclera clear, pharynx normal NECK: supple, no lymphadenopathy, no masses or thyroid enlargement LUNGS: clear to auscultation anterior and posterior HEART: regular rate & rhythm, no murmurs and no gallops ABDOMEN: normo-active bowel sounds, soft, non-tender, non-distended no masses, no hepatosplenomegaly, no rebound or guarding, no bruits, minimal to mild ascites. EXTREMITIES: no palmar erythema, no edema, no skin discoloration, no clubbing, no cyanosis NEURO: Fine tremor of both hands. No asterixis. no lateralizing findings, Sensory/Motor grossly normal. Able to tell me the name of the president today's date. He is able to give me a lot of details about his symptoms. He tells me that his aunt is dying and that they are going to visit her after today's visit therefore they are not able to get labs drawn today (able to think of cause and effect and plan accordingly). IMPRESSION/RECOMMENDATIONS: 57 year old male with ETOH cirrhosis, abstaining, w orthopedic pain, ambulatory dysfunction due to the orthopedic pain. He has a history of hepatic encephalopathy and is frequently having at least mild encephalopathy at home according to his fiancee. We talked about strategies to keep him home instead of repeat hospitalizations for hepatic encephalopathy. Continue to work with PCP and Orthopedics for pain control. If confused at home increase lactulose use. Additionally, the lab tests below were written as monthly standing. His fiancee can take him to a lab to get these tests done if he is mildly confused or weaker than usual. If we see a bump in his MELD, we can reconsult him back to liver transplant. He was seen previously by liver transplant and not listed due to low MELD. Alcoholic cirrhosis of liver with ascites (HCC) (Primary) - CBC WITH WBC DIFFERENTIAL; Standing - COMPREHENSIVE METABOLIC PANEL; Standing - PT INR; Standing - CULTURE, URINE, QUANTITATIVE; Standing - AMMONIA; Standing - US ABDOMEN LIMITED; Future; Expected date: 06/02/2023 Hx of Hepatic Encephalopathy Will message PCP asking if [facility] at home would be appropriate for him - to provide support for pt, decrease need for trips to the lab for blood drawns, provide some support for his caregivers. Has a recheck appt w in August. I spent a total of 40 minutes [...] documented in this encounter Nursing Notes * Laurie Rangel, RN - 05/26/2023 1:33 PM EST Patient identified by full name and date of Chief Complaint Patient presents with Follow Up Very shaky and forgetful. Sometimes does odd things sometimes. feels sometimes she's afraid toleave him alone. Very itchy. documented in this encounter Plan of Treatment Upcoming Encounters Date Type Department Care Team (Late st Contact Info) Description 06/06/2023 10:15 AM EST Imaging Radiology [facility] [address] [place] [address] 07/27/2023 9:30 AM EDT Procedure Only Endoscopy, [facility] [address] [place] [address] Trish Villatoro MD [address] [place] [address] 08/07/2023 3:00 PM EDT Office Visit Gastroenterology, [facility] [address] [place] [address] Keyanna Gordon CRNP [address] [place] [id number] 11/21/2023 5:40 PM EDT Office Visit [facility] [address] [place] [phone] Toby Paz MD [address] [place] [address] Scheduled Orders Name Type Priority Associated Diagnoses Order Schedule CBC WITH WBC DIFFERENTIAL Lab Routine Alcoholic cirrhosis of liver with ascites (HCC) Every Month for 12 Occurrences starting 05/26/2023 until 05/26/2024 COMPREHENSIVE METABOLIC PANEL Lab Routine Alcoholic cirrhosis of liver with ascites (HCC) Every Month for 12 Occurrences starting 05/26/2023 until 05/26/2024 PT INR Lab Routine Alcoholic cirrhosis of liver with ascites (HCC) Every Month for 12 Occurrences starting 05/26/2023 until 05/26/2024 CULTURE, URINE, QUANTITATIVE Lab Routine Alcoholic cirrhosis of liver with ascites (HCC) Every Month for 12 Occurrences starting 05/26/2023 until 05/26/2024 AMMONIA Lab Routine Alcoholic cirrhosis of liver with ascites (HCC) Every Month for 12 Occurrences starting 05/26/2023 until 05/26/2024 US ABDOMEN LIMITED Medical Imaging Routine Alcoholic cirrhosis of liver with ascites (HCC) Expected: 06/02/2023, Expires: 06/23/2024 Scheduled Procedures Name Priority Associated Diagnoses Date/Ti [...] liver documented in this encounter Care Teams Landscape Laborer Relationship Specialty Start Date End Date Toby Paz MD [address] [place] [address] PCP - General Family Medicine 11/25/14 documented as of this encounter"
--- NOTE | 2023-06-25 10:52 | Emergency Department Note ---
Impression & Plan Acute hepatic encephalopathy, Thrombocytopenia, Hyperammonemia, Acute confusion ED Provider Note HISTORY OF PRESENT ILLNESS: Patient is a 57-year-old male presenting with confusion. History is obtained with help from the patient's fianc. He has a history of hepatic encephalopathy and has been taking his lactulose 4 times daily with only 1 missed dose this morning because he was too confused. Significant other reports that the patient started having some confusion yesterday that worsened today. He is also complaining of bilateral lower extremity pain. Significant other reports that the patient lost his footing and fell onto his buttocks and then fell backwards and struck the back of his head and neck on a metal grate 2 days ago. He is not currently on any anticoagulation. Patient denies any chest pain or shortness of breath. Denies any abdominal pain, nausea or vomiting. No reported fevers at home. No recent sick contact exposures. ROS: as above PHYSICAL EXAM: Constitutional: Patient appears in no acute distress. HENT: Head: Normocephalic and atraumatic. Eyes: EOMI, PERRL Mouth/Throat: Mucous membranes moist. Neck: Trachea midline. Neck supple. No reproducible midline tenderness to palpation. Cardiovascular: RRR, No murmurs, rubs or gallops. Intact distal pulses. Pulmonary/Chest: No respiratory distress. Breath sounds clear and equal bilaterally. No wheezes or rales. Abdominal: Abdomen soft, no tenderness, rebound or guarding. Musculoskeletal: No edema, tenderness or deformity noted. Skin: Warm and dry. No rash, erythema, pallor or cyanosis Psychiatric: Appropriate mood and affect for situation. Neurological: Alert to person and time, but patient is slow to respond to questions. CN II-XII grossly intact, moving all extremities equally and fully. MDM: - Vitals signs stable. - History obtained via patient and patient's fianc. History as above. - Chronic conditions affecting care: cirrhosis of liver; thrombocytopenia; HTN; HLD - Differential diagnoses include, but are not limited to: hepatic encephalopathy; UTI; pneumonia; CVA; intracranial hemorrhage; hyperammonemia - Order placed for continuous cardiac monitoring. At this time, monitor showed rate of 83 bpm with normal sinus rhythm, per my interpretation. - External medical records reviewed. Discharge summary dated 05/15/2023 was reviewed. Patient was admitted at that time for confusion. - EKG interpreted by myself showed normal sinus rhythm. Rate 72 bpm. QT 414. No acute ischemic changes. - Laboratory workup interpreted by myself showed leukopenia (WBC 4.78); chronic anemia (Hgb 13.4); thrombocytopenia (plt 44)stable electrolytes; normal troponin; elevated ammonia (119); normal procalcitonin - Blood cultures obtained - Patient was agreeable to drinking lactulose. 30 g of oral lactulose was ordered. Discussed that if he is unable to tolerate the oral lactulose we will put in an NG tube to facilitate lactulose dosing. - CT head wo contrast negative for acute intracranial pathology. CT cervical spine negative for acute injury. - CXR negative for pneumonia, per my interpretation - Considered CT scan of abdomen/pelvis, however, patient has no reproducible abdominal pain on assessment. - Discussion was had with nurse outreach case manager about patient's case and need for admission - Hospitalist consulted for admission - [facility] ASSESSMENT AND PLAN: Diagnosis: Hepatic encephalopathy; hyperammonemia; acute confusion; thrombocytopenia Plan: Admit Past Med/Surg History Medical History (Updated 06/25/23 @ 12:54 by YOGESH Caro) Depression History of ascites Acute alteration in mental status Cirrhosis of liver UTI (urinary tract infection) Thrombocytopenia Nausea Abnormal PFT Acid reflux HLD (hyperlipidemia) HTN (hypertension) Elevated LFTs GERD (gastroesophageal reflux disease) Hypertension Hyperlipidemia H/O angioedema ongoing, follows with allergy Surgical History History of esophagogastroduodenoscopy (EGD) History of colonoscopy History of bowel resection 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 History of appendectomy History of tooth extraction History of appendectomy Family History Father Hearing loss Hypertension Stroke Heart disease Other No pertinent family history in first degree relatives Denies family history of No family history of adverse response to anesthesia No family history of bleeding disorder Allergies Asthma Social History Smoking Status: Never smoker Tobacco Type: Cigarettes Cigarettes Per Day: 1-2; Second Hand Exposure: No; Do You Dip or Chew Tobacco: No; Hx Alcohol Use: No Hx Substance Use: No Preferred Language: Mosotho Communication Ability: Effective Lens Mounter Required: No Beliefs That Will Affect Care: None marital status: Current Living Situation: Spouse Current Living Situation Comment: LIVES WITH GIRLFRIEND 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 Safe at Home: Yes Assistive Devices: None Allergies Allergies Allergy/AdvReac Type Severity Reaction Status Date / Time No Known Allergies Allergy Verified 06/25/23 11:34 Home Meds Home Medications Medication Instructions Recorded Confirmed atorvastatin 20 mg tablet 20 mg PO HS 01/18/18 06/25/23 pantoprazole 40 mg tablet,delayed 40 mg PO BID 07/26/18 06/25/23 release lactulose 10 gram/15 mL oral 20 g PO QID 11/24/21 06/25/23 solution magnesium oxide 400 mg (241.3 mg 400 mg PO AMHS 11/24/21 06/25/23 magnesium) tablet furosemide 40 mg tablet 40 mg PO DAILY 02/23/22 06/25/23 gabapentin 100 mg capsule 100 mg PO BID 02/23/22 06/25/23 rifaximin 550 mg tablet (Xifaxan) 550 mg PO BID 02/23/22 06/25/23 fluoxetine 10 mg capsule 10 mg PO QAM 01/11/23 06/25/23 spironolactone 25 mg tablet 25 mg PO DAILY 01/11/23 06/25/23 ferrous sulfate 325 mg (65 mg 325 mg PO DAILY 05/11/23 06/25/23 iron) tablet (iron) trazodone 50 mg tablet 100 mg PO HS 05/11/23 06/25/23 triamcinolone acetonide 0.1 % 1 applic topical BID PRN AFFECTED 05/11/23 06/25/23 topical cream AREA Results & Data (ED) Vital Signs Vital Signs - 24 hr 06/25/23 10:23 06/25/23 10:26 06/25/23 10:32 Temperature 36.9 C Temperature Source Oral Pulse Rate 78 78 Pulse Rate from SpO2 Sensor Pulse Rhythm Regular Respiratory Rate 20 18 Respiratory Effort / Characteristics Non-Labored Respiratory Depth Normal Blood Pressure 131/83 Blood Pressure Mean 99 Pulse Oximetry 98 99 98 Oxygen Delivery Method Room Air Room Air Room Air Sepsis Recent Fever Within 48 Hours No Sepsis New/Unexplained Change in Mental Status N/A Sepsis Action Taken by Nursing No Action Required 06/25/23 11:00 06/25/23 11:01 06/25/23 11:15 Temperature Temperature Source Pulse Rate 82 68 76 Pulse Rate from SpO2 Sensor 75 Pulse Rhythm Respiratory Rate 16 19 Respiratory Effort / Characteristics Respiratory Depth Blood Pressure 133/76 131/100 Blood Pressure Mean 95 110 Pulse Oximetry 98 99 Oxygen Delivery Method Sepsis Recent Fever Within 48 Hours Sepsis New/Unexplained Change in Mental Status Sepsis Action Taken by Nursing 06/25/23 11:17 06/25/23 11:17 06/25/23 11:30 Temperature Temperature Source Pulse Rate 77 75 Pulse Rate from SpO2 Sensor 78 77 Pulse Rhythm Respiratory Rate 22 16 Respiratory Effort / Characteristics Respiratory Depth Blood Pressure 131/100 134/96 Blood Pressure Mean 108 108 Pulse Oximetry 99 99 Oxygen Delivery Method Sepsis Recent Fever Within 48 Hours Sepsis New/Unexplained Change in Mental Status Sepsis Action Taken by Nursing 06/25/23 11:45 06/25/23 12:00 06/25/23 12:15 Temperature Temperature Source Pulse Rate 84 72 76 Pulse Rate from SpO2 Sensor 81 73 75 Pulse Rhythm Respiratory Rate 24 15 10 L Respiratory Effort / Characteristics Respiratory Depth Blood Pressure Blood Pressure Mean Pulse Oximetry 99 98 98 Oxygen Delivery Method Sepsis Recent Fever Within 48 Hours Sepsis New/Unexplained Change in Mental Status Sepsis Action Taken by Nursing Laboratory Data 06/25/23 10:43 06/25/23 10:43 Lab Results 06/25/23 06/25/23 06/25/23 Range/Units 10:43 11:41 12:05 WBC 4.78 L (4.8-10.8) K/ul RBC 4.00 L (4.70-6.10) M/uL Hgb 13.4 L (14.0-18.0) g/dl Hct 38.1 L (42.0-52.0) % MCV 95.3 (80.0-100.0) fL MCH 33.5 (25.0-34.0) pg MCHC 35.2 (32.0-36.0) g/dL RDW Std Deviation 50.4 H (36.4-46.3) fL RDW Coeff of Fabiola 14.4 (11.5-14.5) % Plt Count 44 L (130-400) K/uL MPV 12.1 (9.4-12.4) fL Immature Gran % (Auto) 0.2 % Neut % (Auto) 54.0 % Lymph % (Auto) 23.2 % [place] % (Auto) 13.0 % Eos % (Auto) 8.8 % Baso % (Auto) 0.8 % Neut # (Auto) 2.58 (1.40-6.50) K/uL Lymph # (Auto) 1.11 L (1.20-3.40) K/uL [place] # (Auto) 0.62 H (0.11-0.59) K/uL Eos # (Auto) 0.42 (0.00-0.50) K/uL Baso # (Auto) 0.04 (0.00-0.20) K/uL Immature Gran # (Auto) 0.01 (0.01-0.20) K/uL PT 13.7 H (9.0-12.0) Seconds INR 1.3 H (0.9-1.1) VBG pH Cancelled 7.39 VBG pCO2 Cancelled 35 L VBG pO2 Cancelled 44 VBG HCO3 Cancelled 21 VBG O2 Saturation Cancelled 75.3 VBG Base Excess Cancelled -3.1 Barometric Pressure Cancelled Sodium 138 (136-145) mmol/L Potassium 4.0 (3.5-5.1) mmol/L Chloride 113 H (98-107) mmol/L Carbon Dioxide 20 L (21-32) mmol/L Anion Gap 5 (3-11) BUN 18 (6-23) mg/dl Creatinine 0.85 (0.6-1.4) mg/dl Est Cr Clr Drug Dosing 94.7 ml/min Est GFR ( Amer) 111.3 ml/min Est GFR (Non-Af Amer) 96.0 ml/min BUN/Creatinine Ratio 21.2 H (10-20) Glucose 94 (70-99(Fasting)) mg/dl Lactate 0.9 (0.4-2.0) mmol/L Calcium 9.0 (8.6-10.3) mg/dl Magnesium 1.8 (1.7-2.4) mg/dl Total Bilirubin 2.1 H (0.2-1.0) mg/dl Direct Bilirubin TNP AST 41 H (13-39) U/L ALT 25 (7-52) U/L Alkaline Phosphatase 116 H (34-104) U/L Ammonia 119.0 H (18-72) umol/L Troponin I High Sens 4.6 (0-20) pg/ml Total Protein 6.6 (6.0-8.3) gm/dl Albumin 3.7 (3.4-5.0) gm/dl Procalcitonin Cancelled Urine Color Urine Appearance (Clear) Urine pH (4.5-7.5) Ur Specific [place] (1.000-1.030) Urine Protein (Negative) Urine Glucose (UA) (Negative) Urine Ketones (Negative) Urine Blood (Negative) Urine Nitrite (Negative) Urine Bilirubin (Negative) Urine Urobilinogen (Negative) Ur Leukocyte Esterase (Negative) Urine WBC (Auto) (0-5) /hpf Urine RBC (Auto) (0-4) /hpf U Hyaline Cast (Auto) (0-5) /lpf U Epithel Cells (Auto) (0-5) /lpf Urine Bacteria (Auto) (Negative) 06/25/23 Range/Units Unknown WBC (4.8-10.8) K/ul RBC (4.70-6.10) M/uL Hgb (14.0-18.0) g/dl Hct (42.0-52.0) % MCV (80.0-100.0) fL MCH (25.0-34.0) pg MCHC (32.0-36.0) g/dL RDW Std Deviation (36.4-46.3) fL RDW Coeff of Fabiola (11.5-14.5) % Plt Count (130-400) K/uL MPV (9.4-12.4) fL Immature Gran % (Auto) % Neut % (Auto) % Lymph % (Auto) % [place] % (Auto) % Eos % (Auto) % Baso % (Auto) % Neut # (Auto) (1.40-6.50) K/uL Lymph # (Auto) (1.20-3.40) K/uL [place] # (Auto) (0.11-0.59) K/uL Eos # (Auto) (0.00-0.50) K/uL Baso # (Auto) (0.00-0.20) K/uL Immature Gran # (Auto) (0.01-0.20) K/uL PT (9.0-12.0) Seconds INR (0.9-1.1) VBG pH VBG pCO2 VBG pO2 VBG HCO3 VBG O2 Saturation VBG Base Excess Barometric Pressure Sodium (136-145) mmol/L Potassium (3.5-5.1) mmol/L Chloride (98-107) mmol/L Carbon Dioxide (21-32) mmol/L Anion Gap (3-11) BUN (6-23) mg/dl Creatinine (0.6-1.4) mg/dl Est Cr Clr Drug Dosing ml/min Est GFR ( Amer) ml/min Est GFR (Non-Af Amer) ml/min BUN/Creatinine Ratio (10-20) Glucose (70-99(Fasting)) mg/dl Lactate (0.4-2.0) mmol/L Calcium (8.6-10.3) mg/dl Magnesium (1.7-2.4) mg/dl Total Bilirubin (0.2-1.0) mg/dl Direct Bilirubin AST (13-39) U/L ALT (7-52) U/L Alkaline Phosphatase (34-104) U/L Ammonia (18-72) umol/L Troponin I High Sens (0-20) pg/ml Total Protein (6.0-8.3) gm/dl Albumin (3.4-5.0) gm/dl Procalcitonin Urine Color Yellow Urine Appearance Clear (Clear) Urine pH 6.5 (4.5-7.5) Ur Specific [place] 1.015 (1.000-1.030) Urine Protein Negative (Negative) Urine Glucose (UA) Negative (Negative) Urine Ketones Negative (Negative) Urine Blood 1+ H (Negative) Urine Nitrite Negative (Negative) Urine Bilirubin Negative (Negative) Urine Urobilinogen Negative (Negative) Ur Leukocyte Esterase Negative (Negative) Urine WBC (Auto) 1-5 (0-5) /hpf Urine RBC (Auto) 10-30 H (0-4) /hpf U Hyaline Cast (Auto) 0 (0-5) /lpf U Epithel Cells (Auto) 0-5 (0-5) /lpf Urine Bacteria (Auto) Negative (Negative) Administered Medications Discontinued Medications Lactulose (Lactulose Syrup 30 Gm/45 Ml Udp) 30 gm PO NOW STA Stop: 06/25/23 11:19 Last Admin: 06/25/23 11:39 Dose: 30 gm Documented By: [facility] Imaging Data Radiologist's Impression: Cervical Spine CT 06/25/23 10:32 CT cervical spine wo con CLINICAL HISTORY: neck pain; recent fall TECHNIQUE: Multidetector row helical CT of the cervical spine was performed without administration of intravenous contrast. Coronal and sagittal reformations were obtained. Automated dose lowering techniques and/or adjustment according to patient size were utilized for this exam. Comparison: Comparison is made to CTA neck 02/22/2022 FINDINGS: No acute fractures or subluxations are identified. The vertebral body heights and disk spaces are well maintained. The alignment is normal. Soft tissues are unremarkable. IMPRESSION: No evidence of acute bony injury. ACT 112: Negative or not required by law. Electronically signed by: Naresh Berry M.D. 06/25/2023 11:12 AM Chest X-Ray 06/25/23 10:32 XR chest 1V portable CLINICAL HISTORY: Sepsis TECHNIQUE: Single frontal radiograph of the chest was obtained. Comparison: Comparison is made to chest radiograph 05/14/2023 FINDINGS: No lines and tubes are seen. The cardiomediastinal silhouette is normal. The lungs are clear. No evidence of pleural effusion or pneumothorax. IMPRESSION: No acute abnormalities and in particular no radiographic evidence of pneumonia. ACT 112: Negative or not required by law. Electronically signed by: Naresh Berry M.D. 06/25/2023 11:[address] 06/25/23 10:32 CT head/brain wo con CLINICAL HISTORY: confusion; recent fall Technique: Contiguous axial CT images of the head were acquired from the base of the skull to the vertex without intravenous contrast administration. Images were viewed in brain, subdural and bone windows. Automated dose lowering techniques and/or adjustment according to patient size were utilized for this exam. Comparison: None available at the time of this dictation. Findings: The ventricles, basal cisterns, and cerebral sulci are normal. There is no acute intracranial hemorrhage or evidence of acute territorial infarction. Neither mass effect, shift of the midline structures, nor abnormal extra-axial fluid collections are shown. Imaged portions of the paranasal sinuses and mastoid air cells are clear. The orbits appear normal. There are no acute fractures of the calvaria or scalp swelling. Impression: No acute intracranial hemorrhage, no evidence of acute territorial infarction or other acute intracranial disease process. ACT 112: Negative or not required by law. Electronically signed by: Naresh Berry M.D. 06/25/2023 11:02 AM Discharge Plan Visit Data Chief Complaint: Confusion Stated Complaint: CONFUSION ED Provider: Laila Bullock Discharge Problem: Acute hepatic encephalopathy, Thrombocytopenia, Hyperammonemia, Acute confusion Forms Stand Alone Forms: [facility] Prescriptions Prescriptions: No Action atorvastatin 20 mg Tablet 20 mg PO HS pantoprazole 40 mg Tablet,Delayed Release (Dr/Ec) 40 mg PO BID magnesium oxide 400 mg (241.3 mg magnesium) tablet 400 mg PO AMHS lactulose 10 gram/15 mL solution 20 g PO QID Rx Instructions: to have 3 BM's daily furosemide 40 mg tablet 40 mg PO DAILY gabapentin 100 mg capsule 100 mg PO BID Rx Instructions: ORDERED TID, PT TAKES bid Xifaxan 550 mg tablet 550 mg PO BID fluoxetine 10 mg capsule 10 mg PO QAM spironolactone 25 mg tablet 25 mg PO DAILY trazodone 50 mg tablet 100 mg PO HS triamcinolone acetonide 0.1 % cream 1 applic TOPICAL BID PRN (Reason: AFFECTED AREA) ferrous sulfate [iron] 325 mg (65 mg iron) Tablet 325 mg PO DAILY Referrals Referrals: Toby Paz MD [Primary Care Provider] -
[2023-06-25 11:01] LABS: Basophils # (auto) 0.04 K/uL (0.00-0.20); Basophils % (auto) 0.8 %; Eosinophils # (auto) 0.42 K/uL (0.00-0.50); Eosinophils % (auto) 8.8 %; Hematocrit (blood only) 38.1 % (42.0-52.0); Hemoglobin 13.4 g/dl (14.0-18.0); Immature Granulocytes # (auto) 0.01 K/uL (0.01-0.20); Immature Granulocytes % (auto) 0.2 %; Lymphocytes # (auto) 1.11 K/uL (1.20-3.40); Lymphocytes % (auto) 23.2 %; Mean Corpuscular Hemoglobin 33.5 pg (25.0-34.0); Mean Corpuscular Hgb Conc 35.2 g/dL (32.0-36.0); Mean Corpuscular Volume 95.3 fL (80.0-100.0); Mean Platelet Volume 12.1 fL (9.4-12.4); Monocytes # (auto) 0.62 K/uL (0.11-0.59); Neutrophils # (auto) 2.58 K/uL (1.40-6.50); Platelet Count 44 K/uL (130-400); RDW Coefficient of Variation 14.4 % (11.5-14.5); RDW Standard Deviation 50.4 fL (36.4-46.3); White Blood Count 4.78 K/ul (4.8-10.8)
--- NOTE | 2023-06-25 11:04 | CT Scan Report ---
CT head/brain wo con CLINICAL HISTORY: confusion; recent fall Technique: Contiguous axial CT images of the head were acquired from the base of the skull to the wolfgang colette without intravenous contrast administration. Images were viewed in brain, subdural and [facility]. Automated dose lowering techniques and/or adjustment according to patient size were utilized for this exam. Comparison: None available at the time of this dictation. Findings: The ventricles, basal cisterns, and cerebral sulci are normal. There is no acute intracranial hemorrh age or evidence of acute territorial infarction. Neither mass effect, shift of the midline structures , nor abnormal extra-axial fluid collections are shown. Imaged portions of the paranasal sinuses and mastoid air cells are clear. The orbits appear normal. There are no acute fractures of the calvaria or scalp swelling. Impression: No acute intracranial hemorrhage, no evidence of acute territorial infarction or other acute intracra nial disease process. ACT 112: Negative or not required by law. Electronically signed by: Naresh Berry M.D. 06/25/2023 11:02 AM
--- NOTE | 2023-06-25 11:10 | XRay Report ---
XR chest 1V portable CLINICAL HISTORY: Sepsis TECHNIQUE: Single frontal radiograph of the chest was obtained. Comparison: Comparison is made to chest radiograph 05/14/2023 FINDINGS: No lines and tubes are seen. The cardiomediastinal silhouette is normal. The lungs are clear. No evid ence of pleural effusion or pneumothorax. IMPRESSION: No acute abnormalities and in particular no radiographic evidence of pneumonia. ACT 112: Negative or not required by law. Electronically signed by: Naresh Berry M.D. 06/25/2023 11:09 AM
--- NOTE | 2023-06-25 11:14 | CT Scan Report ---
CT cervical spine wo con CLINICAL HISTORY: neck pain; recent fall TECHNIQUE: Multidetector row helical CT of the cervical spine was performed without administration of intravenous contrast. Coronal and sagittal reformations were obtained. Automated dose lowering techn iques and/or adjustment according to patient size were utilized for this exam. Comparison: Comparison is made to CTA neck 02/22/2022 FINDINGS: No acute fractures or subluxations are identified. The vertebral body heights and disk spaces are wel l maintained. The alignment is normal. Soft tissues are unremarkable. IMPRESSION: No evidence of acute bony injury. ACT 112: Negative or not required by law. Electronically signed by: Naresh Berry M.D. 06/25/2023 11:12 AM
[2023-06-25 11:31] LABS: Alanine Aminotransferase 25 U/L (7-52); Albumin Level 3.7 gm/dl (3.4-5.0); Alkaline Phosphatase 116 U/L (34-104); Anion Gap 5 (3-11); Aspartate Aminotransferase 41 U/L (13-39); BUN Creatinine Ratio 21.2 (10-20); Bilirubin,Total 2.1 mg/dl (0.2-1.0); Blood Urea Nitrogen 18 mg/dl (6-23); Carbon Dioxide 20 mmol/L (21-32); Chloride 113 mmol/L (98-107); Creatinine Clr Calc Pharmacy 94.7 ml/min; Est GFR (African American) 111.3 ml/min; Glucose 94 mg/dl (70-99(Fasting)); INR 1.3 (0.9-1.1); Magnesium 1.8 mg/dl (1.7-2.4); Prothrombin Time 13.7 Seconds (9.0-12.0); Sodium 138 mmol/L (136-145); Total Protein 6.6 gm/dl (6.0-8.3); Troponin I High Sensitivity 4.6 pg/ml (0-20)
[2023-06-25] MEDS: LACTULOSE SYRUP 30 GM/45 ML UDP PO STA (11:39)
[2023-06-25 12:12] LABS: Base Excess VBG -3.1 mEq/L; HCO3 VBG 21 mmol/L; Oxygen Saturation VBG 75.3 %; PCO2 VBG 35 mmHg (38-50); PO2 VBG 44 mmHg; pH VBG 7.39 (7.36-7.41)
[2023-06-25 12:46] LABS: Appearance Urine Clear (Clear); Bacteria Urine Automated Negative (Negative); Bilirubin Urine Negative (Negative); Blood Urine 1+ (Negative); Cast Urine Automated 0 /lpf (0-5); Color Urine Yellow; Epithelial Cell Urine Auto 0-5 /lpf (0-5); Glucose Urine UA Negative (Negative); Ketones Urine Negative (Negative); Leukocyte Esterase Urine Negative (Negative); Nitrite Urine Negative (Negative); Protein Urine Negative (Negative); Specific Gravity Urine 1.015 (1.000-1.030); Urobilinogen Urine Negative (Negative); pH Urine 6.5 (4.5-7.5)
[2023-06-25] MEDS ORDERED: ONDANSETRON INJ 2 MG/ML 2 ML VIAL IV PRN (12:46)
[2023-06-25] MEDS ORDERED: POLYETHYLENE (MIRALAX) 17 GM PACK PO PRN (12:46)
[2023-06-25] MEDS ORDERED: ACETAMINOPHEN 325 MG TAB PO PRN (12:46)
[2023-06-25] MEDS ORDERED: ALUMINUM/MAGNESIUM SUSP 30 ML UDC PO PRN (12:46)
[2023-06-25] MEDS ORDERED: MAGNESIUM HYDROXIDE SUSP 30 ML UDC PO PRN (12:46)
--- NOTE | 2023-06-25 12:57 | History & Physical Report ---
Date of Service June 25, 2023 Assessment & Plan (1) Hepatic encephalopathy: (2) Hyperammonemia: (3) HLD (hyperlipidemia): (4) GERD (gastroesophageal reflux disease): (5) HTN (hypertension): (6) Depression: Plan 57 year old male with a history of alcoholic cirrhosis presents today with increased confusion that has been going on for the past few days. He reports taking his Lactulose consistently without missing any dose. He feels that his mcc memory is consistent, but his short term memory is harder for him. He also reports dizziness intermittently along with not feeling 'stable' on his feet that has been bothering him for some time. He reports a robust appetite with adequate water intake. His fiance was at the bedside to assist with answering questions. Patient is experiencing disturbed sleep-wake cycle, decreased alertness, NO hallucinations, impaired memory and disorientation. He does have intermittent asterixes bilaterally affecting his upper limbs. His electrolytes are normal. No focal abnormalities noted. S1/S2, (-) M/G/R, (-) Nystagmus, abdomen LLQ tenderness on palpation, abdomen soft, not distended. Numerous circular quarter sized erythematous areas on his back. PMH includes: esophageal varicies, ascites, HTN, HLD, H/O TIA, and GERD. [place] [facility] [place] Has been generally sedentary watching tv since his surgery. Since, he has complaints of LLE neuropathy. Paternal family history includes Parkinson's disease. Head CT, CSCT, and CXR negative. Thrombocytopenia noted WBC 4.78, plt 44. INR 1.2 Patient will be admitted for treatment of acute hepatic encephalopathy. Will or kenan lactulose with a goal of 3-4 BMs, if not tolerating PO; consider NGT administration. Trend Ammonia level in AM. Will also hold diuretics to evaluate effect on his dizziness and provide gentle fluid challenge. Wcheck ferritin, TIBC Vit. B12 levels, and check FOBT. PT/OT. Low threshold for EEG and neuro work up given family history of Parkinson's and asterixes. Hepatic encephalopathy: Hyperammonemia: Acute Takes Lactulose QID. if > 4 BM's takes TID; missed one dose this AM Reportedly 6-8 BM per day. Ammonia level: 119; trend in AM AST 41, ALT 25, Alk Phos 116 INR 1.2 Lactulose 30 G given in ED PO; continue Lactulose 20G BID Abdomen/pelvis CT ordered for LLQ tenderness and to assess for ascites Takes Xifaxan; continue GI Consult placed Dizziness: Fall: Acute Suspect secondary to dehydration from duretics Takes Lasix and Aldactone for management of ascites; hold for now Administer IVF 0.9% @ 80ml/hour for fluid challenge while holding diuretics Orthostatic BPs ordered Consider ECHO if no improvement PT/OT ordered Check Vitamin B12 level Thrombocytopenia: Chronic Suspect secondary to alcoholic cirrhosis WBC 4.78, plt 44, INR 1.2 Check TIBC, Ferritin, B12, Vit B12 level HLD: Chronic Takes atorvastatin;continue Depression: Chronic Takes fluoxetine; continue H/O left total hip arthroscopy: [place] [facility] [place] Takes Gabapentin; continue Once encephalopathy resolves; consider increasing dose as patient c/o burning sensation LLE. GERD: Chronic Takes Protonix; continue History of esophageal varices: Chronic No overt signs of bleeding Last Upper GI endoscopy 07/06/2022: Grade I and small (< 5 mm) esophageal varices Disposition: PCP: Dr. Paz CODE STATUS: Full code VTE prophylaxis Teds and SCDs for now I spent a total of 87 minutes coordinating, documenting, and providing care for this patient excluding time spent in the performance of separately billed services. All of the aforementioned completed while collaborating with the assigned attending physician for a full treatment plan. Please see their addendum for further details. History of Present Illness Chief Complaint: hepatic encephalopathy Primary Care Provider: Toby Paz MD Mr. Gutierrez is a 57 year old male that has a significant past medical history of alcoholic cirrhosis. He presents today with increased confu susan that has been going on for the past few days. He reports taking his Lactulose consistently without missing any dose. He feels that his mcc memory is consistent, but his short term memory is harder for him. He also reports dizziness intermittently along with not feeling 'stable' on his feet that has been bothering him for some time. He reports a robust appetite with adequate water intake. His fiance was at the bedside to assist with answering questions. Patient is experiencing disturbed sleep-wake cycle, decreased alertness, NO hallucinations, impaired memory and disorientation. He does have intermittent asterixes bilaterally affecting his upper limbs. His electrolytes are normal. No focal abnormalities noted. S1/S2, (-) M/G/R, (-) Nystagmus, abdomen LLQ tenderness on palpation, abdomen soft, not distended. Numerous circular quarter sized erythematous areas on his back; he does use a heat pad at home for hours at a time, but does have a protective barrier between the pad and his skin. Additional PMH includes: esophageal varicies, ascites, HTN, HLD, H/O TIA, and GERD. He recently [place] [facility] [place] Has been generally sedentary watching tv since his surgery. Since, he has complaints of LLE neuropathy. Paternal family history includes Parkinson's disease. In the ED, head CT, CSCT, and CXR negative. Thrombocytopenia noted WBC 4.78, plt 44. INR 1.2 Pt denies fever, chills, VILLASEÑOR, SOB, chest pain, palpitations, abdominal pain or tenderness, bowel or bladder changes. Patient will be admitted for treatment of acute hepatic encephalopathy. Will order lactulose with a goal of 3-4 BMs, if not tolerating PO; consider NGT administration. Trend Ammonia level in AM. Will also hold diuretics to evaluate effect on his dizziness and provide gentle fluid challenge. Wcheck ferritin, TIBC Vit. B12 levels, and check FOBT. PT/OT. Low threshold for EEG and neuro work up given family history of Parkinson's and asterixes. Allergies Allergy/AdvReac Type Severity Reaction Status Date / Time No Known Allergies Allergy Verified 06/25/23 11:34 Home Medications Medication Instructions Recorded Confirmed Type atorvastatin 20 mg tablet 20 mg PO HS 01/18/18 06/25/23 History pantoprazole 40 mg tablet,delayed 40 mg PO BID 07/26/18 06/25/23 History release lactulose 10 gram/15 mL oral 20 g PO QID 11/24/21 06/25/23 History solution magnesium oxide 400 mg (241.3 mg 400 mg PO AMHS 11/24/21 06/25/23 History magnesium) tablet furosemide 40 mg tablet 40 mg PO DAILY 02/23/22 06/25/23 History gabapentin 100 mg capsule 100 mg PO BID 02/23/22 06/25/23 History rifaximin 550 mg tablet (Xifaxan) 550 mg PO BID 02/23/22 06/25/23 History fluoxetine 10 mg capsule 10 mg PO QAM 01/11/23 06/25/23 History spironolactone 25 mg tablet 25 mg PO DAILY 01/11/23 06/25/23 History ferrous sulfate 325 mg (65 mg 325 mg PO DAILY 05/11/23 06/25/23 History iron) tablet (iron) trazodone 50 mg tablet 100 mg PO HS 05/11/23 06/25/23 History triamcinolone acetonide 0.1 % 1 applic topical BID PRN AFFECTED 05/11/23 06/25/23 History topical cream AREA Past Med/Surg History Medical History (Updated 06/25/23 @ 12:54 by YOGESH Caro) Depression History of ascites Acute alteration in mental status Cirrhosis of liver UTI (urinary tract infection) Thrombocytopenia Nausea Abnormal PFT Acid reflux HLD (hyperlipidemia) HTN (hypertension) Elevated LFTs GERD (gastroesophageal reflux disease) Hypertension Hyperlipidemia H/O angioedema ongoing, follows with allergy Surgical History History of esophagogastroduodenoscopy (EGD) History of colonoscopy History of bowel resection 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 History of appendectomy History of tooth extraction History of appendectomy Family History Father Hearing loss Hypertension Stroke Heart disease Other No pertinent family history in first degree relatives Denies family history of No family history of adverse response to anesthesia No family history of bleeding disorder Allergies Asthma Social History Smoking Status: Former smoker Tobacco Type: Cigarettes Cigarettes Per Day: 1-2; Second Hand Exposure: No; Do You Dip or Chew Tobacco: No; Tobacco Cessation Education Requested by Patient: No Hx Alcohol Use: No Hx Substance Use: No Preferred Language: Maltese Communication Ability: Effective [employer] Operations Consultant Required: No Beliefs That Will Affect Care: None marital status: Current Living Situation: Significant Other Current Living Situation Comment: LIVES WITH GIRLFRIEND current occupational status: 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 Other Information That Helps Us Care for You: No Feels Safe at Home: Yes Assistive Devices: Cane Review of Systems Review of Systems: Neuro: (-) Falls, trauma, slurred speech HEENT: (-) VILLASEÑOR, (+) dizziness, (-) dysphagia, visual or auditory changes CV: (-) CP, palpitations, swelling Resp: (-) SOB GI: (-) appetite changes, N/V/D, bowel changes; having 6-8 bowel movements per day : (-) urinary changes Skin: (+) erythematous rash on back; half dollar sized circular erythematous non raised discoloration Psych: (-) anxiety, depression Physical Exam Physical Exam: Neuro: AAOx4, PERRLA, no aphagia, memory changes, CNII-XII grossly intact HEENT: head normocephalic, moist mucus membranes CV: S1/S2, (-) M/G/R, (-) edema, cap refill < 3 seconds Resp: Lungs CTA in all gale. On RA GI: Abdomen S/NT/ND, Ax4 bowel sounds, (-) CVA tenderness Musculoskeletal: 5/5 B/L UE strength, 5/5 B/L LE strength. No gait disturbance Skin: (-) rashes , (-) erythema. Psych: euthymic mood Results & Data Results & Data Vital Signs (Past 12 Hours) Vital Signs Temp Pulse Resp BP Pulse Ox O2 Del Method 06/25/23 12:15 76 10 L 98 06/25/23 12:00 72 15 98 06/25/23 11:45 84 24 99 06/25/23 11:30 75 16 134/96 99 06/25/23 11:17 77 22 99 06/25/23 11:17 131/100 06/25/23 11:15 76 19 131/100 99 06/25/23 11:01 68 06/25/23 11:00 82 16 133/76 98 06/25/23 10:32 78 18 98 Room Air 06/25/23 10:26 36.9 C 78 20 131/83 99 Room Air 06/25/23 10:23 98 Room Air Laboratory Results Short CBC 06/25/23 Range/Units 10:43 WBC 4.78 L (4.8-10.8) K/ul Hgb 13.4 L (14.0-18.0) g/dl Hct 38.1 L (42.0-52.0) % Plt Count 44 L (130-400) K/uL BMP 06/25/23 10:43 Sodium 138 Potassium 4.0 Chloride 113 H Carbon Dioxide 20 L BUN 18 Creatinine 0.85 Glucose 94 Calcium 9.0 Liver Function 06/25/23 Range/Units 10:43 Total Bilirubin 2.1 H (0.2-1.0) mg/dl Direct Bilirubin TNP AST 41 H (13-39) U/L ALT 25 (7-52) U/L Alkaline Phosphatase 116 H (34-104) U/L Albumin 3.7 (3.4-5.0) gm/dl Urine 06/25/23 Range/Units Unknown Urine Color Yellow Urine Appearance Clear (Clear) Urine pH 6.5 (4.5-7.5) Ur Specific Elizabeth 1.015 (1.000-1.030) Urine Protein Negative (Negative) Urine Glucose (UA) Negative (Negative) Diagnostic Findings Cervical Spine CT 06/25/23 10:32 CT cervical spine wo con CLINICAL HISTORY: neck pain; recent fall TECHNIQUE: Multidetector row helical CT of the cervical spine was performed without administration of intravenous contrast. Coronal and sagittal reformatio ns were obtained. Automated dose lowering techniques and/or adjustment according to patient size were utilized for this exam. Comparison: Comparison is made to CTA neck 02/22/2022 FINDINGS: No acute fractures or subluxations are identified. The vertebral body heights and disk spaces are well maintained. The alignment is normal. Soft tissues are unremarkable. IMPRESSION: No evidence of acute bony injury. ACT 112: Negative or not required by law. Electronically signed by: Naresh Berry M.D. 06/25/2023 11:12 AM Chest X-Ray 06/25/23 10:32 XR chest 1V portable CLINICAL HISTORY: Sepsis TECHNIQUE: Single frontal radiograph of the chest was obtained. Comparison: Comparison is made to chest radiograph 05/14/2023 FINDINGS: No lines and tubes are seen. The cardiomediastinal silhouette is normal. The lungs are clear. No evidence of pleural effusion or pneumothorax. IMPRESSION: No acute abnormalities and in particular no radiographic evidence of pneumonia. ACT 112: Negative or not required by law. Electronically signed by: Naresh Berry M.D. 06/25/2023 11:[address] 06/25/23 10:32 CT head/brain wo con CLINICAL HISTORY: confusion; recent fall Technique: Contiguous axial CT images of the head were acquired from the base of the skull to the vertex without intravenous contrast administration. Images were viewed in brain, subdural and bone windows. Automated dose lowering techniques and/or adjustment according to patient size were utilized for this exam. Comparison: None available at the time of this dictation. Findings: The ventricles, basal cisterns, and cerebral sulci are normal. There is no acute intracranial hemorrhage or evidence of acute territorial infarction. Neither ma ss effect, shift of the midline structures, nor abnormal extra-axial fluid collections are shown. Imaged portions of the paranasal sinuses and mastoid air cells are clear. The orbits appear normal. There are no acute fractures of the calvaria or scalp swelling. Impression: No acute intracranial hemorrhage, no evidence of acute territorial infarction or other acute intracranial disease process. ACT 112: Negative or not required by law. Electronically signed by: Naresh Berry M.D. 06/25/2023 11:02 AM Code Status & VTE Plan Code Status Full Code in the event of cardiac or respiratory arrest VTE Prophylaxis Plan VTE Prophylaxis will be ordered: Yes Supervising Physician Co-Signing Physician Notes Patient was seen and examined with Tere ZUÑIGA at bedside. Chart reviewed. Case discussed with her and agree with the documentation above except for below. In summary, this is a 57 year old male with h/o cirrhosis of liver compliant with his meds and on liver transplant list presented to the ED with increased confusion, dizziness, memory impairment. Also has sleep cycle disturbance- sleeps during day and awake at night. States he takes lactulose daily and has 3 or more BM daily, upto 8 per day. Also on lasix. No fever, chills, CP, SOB, N/V. Noted to have elevated ammonia on labs. No asterixis noted. Abd exam relatively benign. No leucocytosis. Electrolytes normal. Not on narcotics. Unclear cause of his hepatic encephalopathy. Possible volume depletion, less concern for SBP or medication non compliance. Will hold home diuretics, will give a trial of fluids, continue lactulose titrated to 4 BM per day, continue rifaximin. GI eval. Continue tele, PT OT , orthostatic vitals. On exam- General: Lying comfortably in bed, not in acute distress, on room air HEENT: EOMI, CHLOE, MMM Chest: Clear breath sounds bilaterally, no wheezes or crackles CVS: Regular rate and rhythm, normal heart sounds, no murmur Abdomen: Soft, mild LLQ tenderness, not distended, normal bowel sounds Neuro: Awake, alert, oriented, conversing well, non focal. No asterixis Extremities: No cyanosis, clubbing or edema Rest as per the note above.
--- NOTE | 2023-06-25 14:38 | CT Scan Report ---
CT abd pelvis wo con CLINICAL HISTORY: LLQ tenderness and ascites TECHNIQUE: Helical axial images of the abdomen and pelvis were obtained. Automated dose lowering tech niques and/or adjustment according to patient size were utilized for this exam. This exam was perfor med without intravenous contrast. CT DOSE: 1325.3 mGy.cm COMPARISON: Comparison is made to CT abdomen pelvis 05/14/2023 FINDINGS: Lower chest: No acute abnormality. Liver: Nodular contour of the liver is seen compatible with cirrhosis. Gallbladder and biliary tree: Patient is status post cholecystectomy. No intra- or extrahepatic bilia ry ductal dilation. Pancreas: Small Spleen: Spleen is mildly prominent with splenule is noted. Calcifications are noted in the spleen. Adrenals: Unremarkable. Kidneys and ureters: Unremarkable. Bladder: Unremarkable. Reproductive organs: Unremarkable. Bowel: Unremarkable. Lymph nodes Retroperitoneal: Unremarkable. Pelvic: Unremarkable. Mesenteric: Unremarkable. Peritoneum: Normal. Vessels: Infrarenal aortic aneurysm measures 29 mm in diameter. Numerous varices are seen about the l iver and a lesser extent the esophagus. Abdominal wall: Unremarkable. Bones: Left hip total arthroplasty is seen. IMPRESSION: 1. No acute abnormalities displayed in left lower quadrant pain, in particular no evidence of divert iculitis. 2. Cirrhosis and stigmata of pulmonary hypertension. ACT 112: Negative or not required by law. Electronically signed by: Naresh Berry M.D. 06/25/2023 2:36 PM
[2023-06-25 14:43] LABS: Transferrin 165 mg/dl (200-360); Unsaturated Iron Binding Cap 131 mcg/dl (155-355)
[2023-06-25] MEDS: SODIUM CHLORIDE 0.9% 1,000 ML IV SCH (14:51)
--- NOTE | 2023-06-25 14:53 | Electrocardiogram Report ---
Test Reason : Blood Pressure : / mmHG Vent. Rate : 072 BPM Atrial Rate : 072 BPM P-R Int : 160 ms QRS Dur : 076 ms QT Int : 414 ms P-R-T Axes : 039 018 024 degrees QTc Int : 453 ms Poor data quality, interpretation may be adversely affected Normal sinus rhythm Normal ECG When compared with ECG of 14-MAY-2023 07:12, No significant change was found Confirmed by Philip Myles ([id number]) on 06/25/2023 2:53:00 PM Referred By: Confirmed By:Philip Myles
[2023-06-25 15:02] LABS: Ferritin 98.3 ng/ml (8-388)
[2023-06-25] MEDS: LACTULOSE SYRUP 20 GM/30 ML UDC PO SCH (17:02)
[2023-06-25] MEDS: PANTOprazole 40 MG TAB PO SCH (20:17)
[2023-06-25] MEDS: rifAXIMin 550 MG TABLET PO SCH (20:17)
[2023-06-25] MEDS: ATORVASTATIN 20 MG TAB PO SCH (20:18)
[2023-06-25] MEDS: GABAPENTIN 100 MG CAP PO SCH (20:18)
[2023-06-25] MEDS: MAGNESIUM OXIDE 400 MG TAB PO SCH (20:18)
[2023-06-25] MEDS: diphenhydrAMINE 2%/ZINC 0.1% CREAM 28.4GM TUBE EXT SCH (20:18)
[2023-06-26 06:48] LABS: Mean Corpuscular Hemoglobin 33.3 pg (25.0-34.0); Mean Corpuscular Hgb Conc 33.3 g/dL (32.0-36.0); Mean Platelet Volume 12.8 fL (9.4-12.4); Platelet Count 44 K/uL (130-400); RDW Coefficient of Variation 14.6 % (11.5-14.5); RDW Standard Deviation 53.5 fL (36.4-46.3)
[2023-06-26 07:08] LABS: Albumin Globulin Ratio 1.2 (0.9-2); Albumin Level 3.2 gm/dl (3.4-5.0); BUN Creatinine Ratio 14.8 (10-20); Bilirubin,Total 1.6 mg/dl (0.2-1.0); Calcium 8.5 mg/dl (8.6-10.3); Creatinine Clr Calc Pharmacy 91.5 ml/min; Est GFR (African American) 109.7 ml/min; Est GFR (Non-African American) 94.7 ml/min; Globulin 2.7 gm/dl (2.5-4.0); Magnesium 1.8 mg/dl (1.7-2.4); Potassium 4.3 mmol/L (3.5-5.1); Total Protein 5.9 gm/dl (6.0-8.3)
[2023-06-26] MEDS: FERROUS SULFATE 325 MG TAB PO SCH (08:14)
[2023-06-26] MEDS: FLUoxetine HCL 10 MG CAP PO SCH (08:14)
--- NOTE | 2023-06-26 09:22 | Gastrointestinal Consultation ---
Date of Consultation June 26, 2023 Assessment & Plan (1) Hyperammonemia: (2) Acute hepatic encephalopathy: Plan 1. Increase lactulose to 4x/time, continue rifaximin 2. Urine culture 3. Decrease diuretic dosing. Was on furosemide 40/lactulose 25; decrease to 20/25. 4. Continue OP GI f/u. Has OP GI f/u w me August 05, OP EGD arranged for August 31. Pt will be given phone number to call to see to [facility] to consider partial donor liver transplant there. History of Present Illness Reason for Consultation: hepatic encephalopathy Requesting Physician: Tere ZUÑIGA,/Dr. Perea Attending Physician: Wayne Lama MD History of Present Illness Mr. Mauro Gutierrez is a 57 yr old male pt of Dr. Paz w a hx of ETOH cirrhosis, abstaining for years, complicated by hepatic encephalopathy (on rifaximin and lactulose), Grade I EV (on Pantoprazole daily, no beta tonia due to dizziness),and Ascites/peripheral edema (on furosemide 40/spironolactone 25 daily). He verifies that he takes lactulose 2-3 times every day and reports passing 5-7 BMs/day. He denies missing any doses of medication. He presented to the ED yesterday for dizziness, weakness, confusion, tremor poor sleep (due to back/leg pain from DDD on gabapentin). He has been prescribed trazodone 100mg at bedtime but his prescription ran out and he hasn't had this in the past week or two. He was evaluated by [facility] hepatology for transplant but not listed due to low MELD. On arrival, ammonia 119->83 this morning; CXR normal; no leukocytosis or hypotension, non contrast CT w cirrhosis and small ascites, no new issues. Urine showed 1+ blood which seems to be a new problem for him (previously trace blood as an OP but UA was negative at that time), blood cx are pending. This morning, the pt is awake, alert, oriented and tells me that he needs to go home today because his aunt who is close to and he needs to go to the . Allergies Allergy/AdvReac Type Severity Reaction Status Date / Time No Known Allergies Allergy Verified 06/25/23 11:34 Home Medications Medication Instructions Recorded Confirmed Type atorvastatin 20 mg tablet 20 mg PO HS 01/18/18 06/25/23 History pantoprazole 40 mg tablet,delayed 40 mg PO BID 07/26/18 06/25/23 History release lactulose 10 gram/15 mL oral 20 g PO QID 11/24/21 06/25/23 History solution magnesium oxide 400 mg (241.3 mg 400 mg PO AMHS 11/24/21 06/25/23 History magnesium) tablet gabapentin 100 mg capsule 100 mg PO BID 02/23/22 06/25/23 History rifaximin 550 mg tablet (Xifaxan) 550 mg PO BID 02/23/22 06/25/23 History fluoxetine 10 mg capsule 10 mg PO QAM 01/11/23 06/25/23 History spironolactone 25 mg tablet 25 mg PO DAILY 01/11/23 06/25/23 History ferrous sulfate 325 mg (65 mg 325 mg PO DAILY 05/11/23 06/25/23 History iron) tablet (iron) trazodone 50 mg tablet 100 mg PO HS 05/11/23 06/25/23 History triamcinolone acetonide 0.1 % 1 applic topical BID PRN AFFECTED 05/11/23 06/25/23 History topical cream AREA furosemide 40 mg tablet 20 mg (1/2 x 40 mg) PO DAILY #15 06/26/23 06/25/23 Rx tabs Patient History Medical History (Updated 06/25/23 @ 12:54 by YOGESH Caro) Depression History of ascites Acute alteration in mental status Cirrhosis of liver UTI (urinary tract infection) Thrombocytopenia Nausea Abnormal PFT Acid reflux HLD (hyperlipidemia) HTN (hypertension) Elevated LFTs GERD (gastroesophageal reflux disease) Hypertension Hyperlipidemia H/O angioedema ongoing, follows with allergy Surgical History History of esophagogastroduodenoscopy (EGD) History of colonoscopy History of bowel resection 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 History of appendectomy History of tooth extraction History of appendectomy Family History Father Hearing loss Hypertension Stroke Heart disease Other No pertinent family history in first degree relatives Denies family history of No family history of adverse response to anesthesia No family history of bleeding disorder Allergies Asthma Social History Smoking Status: Former smoker Tobacco Type: Cigarettes Cigarettes Per Day: 1-2; Second Hand Exposure: No; Do You Dip or Chew Tobacco: No; Hx Alcohol Use: No Hx Substance Use: No Preferred Language: Malay Communication Ability: Effective Faith Doctor Required: No Beliefs That Will Affect Care: None marital status: Current Living Situation: Significant Other Current Living Situation Comment: LIVES WITH GIRLFRIEND 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 Able to tell me his name, where he is, the month, day of the week and year. Eyes: PERRL, conjunctivae normal, anicteric sclerae ENMT: external ear and nose normal, oropharynx normal Neck: trachea midline, no thyromegaly Respiratory: normal respiratory effort, lungs clear to auscultation Cardiovascular: RRR, no murmur, no edema Chest (Breasts): Additional Comments: + gynecomastia Gastrointestinal (Abdomen): extensive scarring from prior surgeries. Soft, non tender, no significant ascites. Skin: round slightly raised, slightly scaly, round light red lesions on back; allen from excoriation, no jaundice. Neurologic: PERRL, EOMI, accommodation nl, no face palsy, no dysarthria Psychiatric: affect dull, otherwise grossly normal psych Lymphatic: no cervical or axillary lymphadenopathy Results & Data Vital Signs (Past 12 Hours) Vital Signs Temp Pulse Pulse Resp BP BP Pulse Ox 06/26/23 07:49 37.0 C 94 H 18 153/78 H 93 06/26/23 07:39 71 06/26/23 03:39 36.6 C 83 16 124/68 97 06/25/23 22:35 36.8 C 91 H 16 108/67 96 06/25/23 22:04 83 O2 Del Method 06/26/23 07:49 Room Air 06/26/23 07:39 06/26/23 03:39 Room Air 06/25/23 22:35 Room Air 06/25/23 22:04 Laboratory Results WBC 5.3, Hb 13, Hbt 39, Plts 44, Na 141, K 4.3, Cl 116, CO2 19, BUN 14, Cr 0.8, glucose 98. T Bili 1.6, AST 40, ALT 22, ALk Phos 127. Diagnostic Findings Non contrast CTAP 06/25/23: 1. No acute abnormalities displayed in left lower quadrant pain, in particular no evidence of diverticulitis. 2. Cirrhosis and stigmata of pulmonary hypertension. Head CT 06/25/23: No acute intracranial hemorrhage, no evidence of acute territorial infarction or other acute intracranial disease process. Chest X-Ray 06/25/23: No acute abnormalities and in particular no radiographic evidence of pneumonia.
--- NOTE | 2023-06-26 09:51 | Discharge Summary ---
Date of Service June 26, 2023 Admission HPI Per Admitting Provider Mr. Gutierrez is a 57 year old male that has a significant past medical history of alcoholic cirrhosis. He presents today with increased confusion that has been going on for the past few days. He reports taking his Lactulose consistently without missing any dose. 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 He also reports dizziness intermittently along with not feeling 'stable' on his feet that has been bothering him for some time. He reports a robust appetite with adequate water intake. His fiance was at the bedside to assist with answering questions. Patient is experiencing disturbed sleep-wake cycle, decreased alertness, NO hallucinations, impaired memory and disorientation. He does have intermittent asterixes bilaterally affecting his upper limbs. His electrolytes are normal. No focal abnormalities noted. S1/S2, (-) M/G/R, (-) Nystagmus, abdomen LLQ tenderness on palpation, abdomen soft, not distended. Numerous circular quarter sized erythematous areas on his back; he does use a heat pad at home for hours at a time, but does have a protective barrier between the pad and his skin. Additional PMH includes: esophageal varicies, ascites, HTN, HLD, H/O TIA, and GERD. He recently had a left total hip [place] [facility] [place]. Has been generally sedentary watching tv since his surgery. Since, he has complaints of LLE neuropathy. Paternal family history includes Parkinson's disease. In the ED, head CT, CSCT, and CXR negative. Thrombocytopenia noted WBC 4.78, plt 44. INR 1.2 Pt denies fever, chills, VILLASEÑOR, SOB, chest pain, palpitations, abdominal pain or tenderness, bowel or bladder changes. Patient will be admitted for treatment of acute hepatic encephalopathy. Will order lactulose with a goal of 3-4 BMs, if not tolerating PO; consider NGT administration. Trend Ammonia level in AM. Will also hold diuretics to evaluate effect on his dizziness and provide gentle fluid challenge. Wcheck ferritin, TIBC Vit. B12 levels, and check FOBT. PT/OT. Low threshold for EEG and neuro work up given family history of Parkinson's and asterixes. Admission Exam Per Admitting Provider Neuro: AAOx4, PERRLA, no aphagia, memory changes, CNII-XII grossly intact HEENT: head normocephalic, moist mucus membranes CV: S1/S2, (-) M/G/R, (-) edema, cap refill < 3 seconds Resp: Lungs CTA in all gale. On RA GI: Abdomen S/NT/ND, Ax4 bowel sounds, (-) CVA tenderness Musculoskeletal: 5/5 B/L UE strength, 5/5 B/L LE strength. No gait disturbance Skin: (-) rashes , (-) erythema. Psych: euthymic mood Principal Diagnosis Hepatic encephalopathy Hyperammonemia Dizziness, fall Discharge Exam GENERAL: Alert and oriented x4. NAD, on RA. HEENT: No pallor, no icterus. Pupils equal, round and reactive to light. Oral mucosa moist. NECK: No JVD, no neck masses. HEART: S1 and S2 heard. Regular rate and rhythm. No murmur, no gallop. RESPIRATORY SYSTEM: Normal AP diameter. No accessory muscle use. No wheezing, no crackles. ABDOMEN: Soft, bowel sounds present, nontender, no distention. CENTRAL NERVOUS SYSTEM: No facial droop. Speech is clear. Obeys simple commands. Moves extremities. EXTREMITIES: No edema, no erythema seen. No asterixis noted, stance and gait stable and normal. Discharge Data Allergies Allergy/AdvReac Type Severity Reaction Status Date / Time No Known Allergies Allergy Verified 06/25/23 11:34 Consultations 06/25/23 14:15 Consult Gastroenterology Routine Ordered Studies 06/25/23 10:32 CT cervical spine wo con Stat CT head/brain wo con Stat 06/25/23 14:04 CT abd pelvis wo con Routine Hospital Course (1) Hepatic encephalopathy: (2) Hyperammonemia: (3) HLD (hyperlipidemia): (4) GERD (gastroesophageal reflux disease): (5) HTN (hypertension): (6) Depression: Plan Per prior attending with addendum: 57 year old male with a history of alcoholic cirrhosis presents today with increased confusion that has been going on for the past few days. He reports taking his Lactulose consistently without missing any dose. He feels that his chcf memory is consistent, but his short term memory is harder for him. He also reports dizziness intermittently along with not feeling 'stable' on his feet that has been bothering him for some time. He reports a robust appetite with adequate water intake. His fiance was at the bedside to assist with answering questions. Patient is experiencing disturbed sleep-wake cycle, decreased alertness, NO hallucinations, impaired memory and disorientation. He does have intermittent asterixes bilaterally affecting his upper limbs. His electrolytes are normal. No focal abnormalities noted. S1/S2, (-) M/G/R, (-) Nystagmus, abdomen LLQ tenderness on palpation, abdomen soft, not distended. Numerous circular quarter sized erythematous areas on his back. PMH includes: esophageal varicies, ascites, HTN, HLD, H/O TIA, and GERD. He recently had a left total hip replacement performed [place] [facility] [place]. Has been generally sedentary watching tv since his surgery. Since, he has complaints of LLE neuropathy. Paternal family history includes Parkinson's disease. Head CT, CSCT, and CXR negative. Thrombocytopenia noted WBC 4.78, plt 44. INR 1.2 Patient will be admitted for treatment of acute hepatic encephalopathy. Will order lactulose with a goal of 3-4 BMs, if not tolerating PO; consider NGT administration. Trend Ammonia level in AM. Will also hold diuretics to evaluate effect on his dizziness and provide gentle fluid challenge. Wcheck ferritin, TIBC Vit. B12 levels, and check FOBT. PT/OT. Low threshold for EEG and neuro work up given family history of Parkinson's and asterixes. Hepatic encephalopathy: Hyperammonemia: Acute Takes Lactulose QID. if > 4 BM's takes TID; missed one dose this AM Reportedly 6-8 BM per day. Ammonia level: 119; trend in AM AST 41, ALT 25, Alk Phos 116 INR 1.2 Lactulose 30 G given in ED PO; continue Lactulose 20G BID Abdomen/pelvis CT ordered for LLQ tenderness and to assess for ascites Takes Xifaxan; continue GI Consult placed Dizziness: Fall: Acute Suspect secondary to dehydration from duretics Takes Lasix and Aldactone for management of ascites; hold for now Administer IVF 0.9% @ 80ml/hour for fluid challenge while holding diuretics Orthostatic BPs ordered Consider ECHO if no improvement PT/OT ordered Check Vitamin B12 level Thrombocytopenia: Chronic Suspect secondary to alcoholic cirrhosis WBC 4.78, plt 44, INR 1.2 Check TIBC, Ferritin, B12, Vit B12 level HLD: Chronic Takes atorvastatin;continue Depression: Chronic Takes fluoxetine; continue H/O left total hip arthroscopy: Performed at [facility] [place] Takes Gabapentin; continue Once encephalopathy resolves; consider increasing dose as patient c/o burning sensation LLE. GERD: Chronic Takes Protonix; continue History of esophageal varices: Chronic No overt signs of bleeding Last Upper GI endoscopy 07/06/2022: Grade I and small (< 5 mm) esophageal varices Disposition: PCP: Dr. Paz CODE STATUS: Full code VTE prophylaxis Teds and SCDs for now Addendum 06/26/2023: Patient was seen and examined at bedside as a follow-up of hepatic encephalopathy. Patient is alert and oriented x 4, no asterixis noted, stance and gait were normal. Labs and imaging reviewed. Patient declines any dizziness, reports moving bowels okay, denies any problems with appetite. Patient advised to take lactulose up to 3-5 times a day with a goal of 3-4 bowel movements a day. Patient voiced understanding. Discussed with GI, can go home from their standpoint. Patient had an unfortunate life event at the family and he would like to go home today. He is being discharged with following instructions at the point of discharge: Follow-up with your primary care physician within a week time and likely you will need labs CBC/CMP/magnesium/phosphorus. Follow-up with the GI doctor as prior. Take your lactulose up to 3-5 times a day with a goal of 3-4 bowel movements a day. If you achieved the goal bowel movements for the day, you can pause remaining of the doses of lactulose for the day. Maintain slow transition during change in position from lying to sitting, and sitting to standing. Take your medications as prescribed. Please make sure that you are able to get your medications today by calling your pharmacy before you leave the hospital so that your treatment continuity is not broken. Home Health Attestation I certify that this patient is under my care and that I, or a physicians accountant assistant working with me, had a face to-face encounter that meets the home health [id number] encounter requirements with this patient. The encounter with the patient was in whole, or in part, for the following medical condition, which is the primary reason for home health care (list medical condition): I certify that, based on my findings, the following services are medically necessary home health services: My clinical findings support the need for the above services because: Further, I certify that my clinical findings support that this patient is homebound (i.e. absences from home require considerable and taxing effort and are for medical reasons or mosque services or infrequently or of short duration when for other reasons) because: Certification for Home Health Services: Based on the above findings, I certify that this patient is confined to the home and needs intermittent half-way care, physical therapy and/or speech therapy or continues to need occupational therapy. The patient is under my care, and I have initiated the establishment of the plan of care. This patient will be followed by a physician who will periodically review the plan of care. Total Time Total Time Spent Total Time Spent (In Minutes): 45 Discharge Plan Discharge Items Patient Disposition: Home - Self-Care Reason For Visit: ACUTE HEPATIC ENCEPHALOATHY Discharge Diagnosis: Hepatic encephalopathy Hyperammonemia Dizziness, fall Activity: Resume your previous activity Non-emergency contact: Primary Care Provider Call non-emergency contact if: you have any medication questions Follow-up/Referrals: Toby Paz MD [Primary Care Provider] - Diet: Low Sodium (2gm) Addtl Attending Provider Instructions: Follow-up with your primary care physician within a week time and likely you will need labs CBC/CMP/magnesium/phosphorus. Follow-up with the GI doctor as prior. Take your lactulose up to 3-5 times a day with a goal of 3-4 bowel movements a day. If you achieved the goal bowel movements for the day, you can pause remaining of the doses of lactulose for the day. Maintain slow transition during change in position from lying to sitting, and sitting to standing. Take your medications as prescribed. Please make sure that you are able to get your medications today by calling your pharmacy before you leave the hospital so that your treatment continuity is not broken. Pending Studies at Discharge: Yes Stand-Alone Forms: My [employer], Smoking Cessation Medications and DC Order Prescriptions: Continued atorvastatin 20 mg Tablet 20 mg PO HS pantoprazole 40 mg Tablet,Delayed Release (Dr/Ec) 40 mg PO BID magnesium oxide 400 mg (241.3 mg magnesium) tablet 400 mg PO AMHS lactulose 10 gram/15 mL solution 20 g PO QID Rx Instructions: to have 3 BM's daily gabapentin 100 mg capsule 100 mg PO BID Rx Instructions: ORDERED TID, PT TAKES bid Xifaxan 550 mg tablet 550 mg PO BID fluoxetine 10 mg capsule 10 mg PO QAM spironolactone 25 mg tablet 25 mg PO DAILY trazodone 50 mg tablet 100 mg PO HS triamcinolone acetonide 0.1 % cream 1 applic TOPICAL BID PRN (Reason: AFFECTED AREA) ferrous sulfate [iron] 325 mg (65 mg iron) Tablet 325 mg PO DAILY Changed furosemide 40 mg tablet 20 mg PO DAILY Qty: 15 0RF Discharge Orders: Discharge Order (Routine); Ordered 06/26/23 Ordered By: Wayne Lama Admission Data Admit Date/Time: 06/25/23 12:46 Attending Provider: Wayne Lama Admit Provider: Enrique Perea Primary Care Provider: Toby Paz Other Providers: Tolu Gamez
== END 2023-06-26 10:38 | disposition home or self-care (01) | DRG 442 ==
LOC: ED 10:23 → SUATTDRO 12:46 → 2N 12:46

== ENCOUNTER 2023-09-30 15:18 | Inpatient (IN) ==
--- OUTSIDE RECORDS SUMMARY | 2023-09-30 15:26 | External Medical Summary ---
Author Name Unknown Address Unknown Organization [id number]:[facility] [place] - [address] [place] [address] Laboratory Report Ordering Provider Test Date Status LIZA LAROSE 09/06/2023 11:22:46 Final Warfarin Therapy
INR: 2 .0-3.0 conventional anticoagulation
INR: 2.5- 3.5 high intensity anticoagulation Observation Date Value Abnormality Reference (Units ) Status PT 09/06/2023 11:22:46 17.8 Above high normal 11 .6-15.2 (seconds) Final INR 09/06/2023 11:22:46 1.5 Above high normal 0. 8-1.2 Final Performing Location [facility] [place] - [address] [place] [address]
--- OUTSIDE RECORDS SUMMARY | 2023-09-30 15:26 | External Medical Summary | Summary of Care ---
Author Name Unknown Organization [facility] Address [address] [place] [address] Phone [phone] Care Team Providers Care Production Editor Name Role Phone Toby Paz MD Primary Care Provider [phone] Reason for Visit * Reason Onset Date Comments FYI 09/07/2023 Encounter Details Date Type Department Care Team (Late st Contact Info) Description 09/07/2023 Telephone [facility] [address] [place] [address] Toby Paz MD [address] [place] [address] FYI Allergies Active Allergy Reactions Criticality Noted Date Comments Other Allergy (See Comments) Anaphylaxis High 06/21/2018 Bee stings- swelling documented as of this encounter (statuses as of 09/11/2023) Medications Medication Sig Dispensed Refills Start Date End Date Status Iron (Ferrous Sulfate) 325 (65 Fe) MG Oral Tablet Take by mouth. Ac tive Atorvastatin Calcium 20 MG Oral Tablet (Lipitor)Indication s:Dyslipidemia Take 1 Tablet by mouth in the morning. 90 Tablet 1 03/29/2023 Active Diclofenac Sodium 1 % External Gel (Voltaren) Apply topically to affected area 2 times a day. Apply to area lateral to left hip 150 g 5 03/29/2023 Active Additional Information Patient not taking.Reported on 08/31/2023 Lactulose 10 GM/15ML Oral Solution (Constulose)Indicat ions:Hyperammonemia [...] before bedtime. 180 Tablet 1 03/29/2023 Active rifAXIMin 550 MG Oral Tablet (Xifaxan) take 1 tablet by mouth IN THE MORNING then take 1 tablet by mouth BEFORE BEDTIME 60 Tablet 2 03/29/2023 Active Triamcinolone Acetonide 0.1 % External Cream (Aristocort)Indicat ions:Psoriasiform eczema Apply topically to affected area 2 times a day. To affected area. 60 g 5 05/10/2023 Active Additional Information Patient not taking.Reported on 08/17/2023 FLUoxetine HCl 10 MG Oral Capsule (PROzac) Take 1 Capsule by mouth in the morning. 90 Capsule 3 06/25/2023 Active Furosemide 20 MG Oral Tablet (Lasix) Take 1 Tablet by mouth in the morning. Active Gabapentin 300 MG Oral Capsule (Neurontin) Take 1 Capsule by mouth at bedtime. 30 Capsule 5 07/06/2023 Active traZODone HCl 50 MG Oral Tablet (Desyrel)Indication s:Primary insomnia Take 2 Tablets by mouth at bedtime. 180 Tablet 3 07/07/2023 Active prednisoLONE Acetate 1 % Ophthalmic Suspension (Pred Forte) Instill 1 Drop into the right eye in the morning and 1 Drop at noon and 1 Drop in the evening and 1 Drop before bedtime. 07/10/2023 Active Ofloxacin 0.3 % Ophthalmic Solution (Ocuflox) Instill 1 Drop into the right eye in the morning and 1 Drop at noon and 1 Drop in the evening and 1 Drop before bedtime. 07/10/2023 Active traMADol HCl 50 MG Oral Tablet (Ultram)Indications :Avascular necrosis of bone of left hip (HCC) Take 1 Tablet by mouth every 8 hours as needed for Pain, Severe. 30 Tablet 08/16/2023 Active LORazepam 0.5 MG Oral Tablet (Ativan) Take 1 Tablet by mouth every 6 hours as needed. 05/11/2023 Active Spironolactone 25 MG Oral Tablet (Aldactone) Take 1 Tablet by mouth in the morning. 07/07/2023 Active EpiPen 2-Dave 0.3 MG/0.3ML Injection Solution Auto-injector For a severe reaction: Place orange end against the outer thigh, press firmly, hold in place for 10 seconds and go to the Emergency room. 2 Each 1 08/17/2023 Active Hospital, Clinic, or Other Facility Administered Medication Ordered Dose Route Frequency Start Date End Date Status albuterol sulfate (PROVENTIL) (2.5 MG/3ML) 0.083% inhalation solution 2.5 mgIndications:SOB (shortness of breath) 2.5 mg NEBULIZER Q4H PRN 05/10/2018 Act guzman documented as of this encounter (statuses as of 09/11/2023) Active Problems Problem Noted Date Diagnosed Date Hepatic encephalopathy 07/31/2023 S/P hip replacement, left 05/22/2023 Esophageal varices without bleeding 05/22/2023 Avascular necrosis of bone of left hip Hypoproliferative anemia 05/10/2023 DDD (degenerative disc disease), lumbosacral 10/2023 Other intervertebral disc displacement, lumbosac ral region 05/10/2023 Major depressive disorder with single episode Age-related nuclear cataract, bilateral 02/07/20 23 AAA (abdominal aortic aneurysm) 10/25/2022 Overview: 3.0 [...] as of this encounter (statuses as of 09/11/2023) Resolved Problems Problem Noted Date Diagnosed Date Resolved Date History of alcohol abuse 05/22/2023 Alcohol dependence, uncomplicated 01/17/2023 05/22/2023 Avascular necrosis of bone of hip 05/10/2022 05/22/2023 Chronic alcohol abuse 06/17/20212023 Facial swelling 06/09/2017 08/07/2019 Urticaria 06/09/2017 08/07/2019 Intestinal obstruction 05/09/201203/02 CLASSICAL MIGRAINE WITHOU ME NTION OF INTRACTABLE MIGRAINE 11/29/2001 08/07/2019 Undiagnosed cardiac murmurs 11/29/2001 03/02/2017 Overview: Not Mayes on 11/29/01 documented as of this encounter (statuses as of 09/11/2023) Immunizations Name Administration Dates Next Due HEP A - Hepatitis A (Adult > 18 yrs) 06/06/2020 Pneumococcal Conjugate Vacci ne, 20-valent ([id number]) 06/24/2022 Seasonal Influenza Virus Vac cine, Unspecified [...] encounter Miscellaneous Notes * Telephone Encounter - Lillie Rodriguez OSA - 09/11/2023 9:13 AM EDT Araceli from [facility] office will send urgent message to Dr. Hernandez to do paperwork otto. * Telephone Encounter - Pankaj Suggs MED ASSIST - 09/08/2023 9:27 AM EDT Placed paperwork on desk * Telephone Encounter - Kya Chino OSA - 09/07/2023 3:34 PM EDT Paperwork 09/07/23 Carmen Marr dropped off [place] paperwork from her employer, [employer] to be filled out/ She is the critical care physician assistant for the pt. Paperwork placed in provider's mail bin. It is in an envelope from [employer]. documented in this encounter Plan of Treatment Upcoming Encounters Date Type Department Care Team (Latest Contact Info) Description 10/09/2023 3:25 PM EDT Office Visit [facility], [facility] [address] [place] [address] Ed Causey MD [address] [place] [address] 11/21/2023 5:40 PM EDT Office Visit [facility] [address] [place] [phone] Toby Paz MD [address] [place] [address] 12/11/2023 1:04 PM EDT Hospital En[facility], [facility] - 4th Floor [address] [facility] [place] [address] Ki Huang MD [address] [place] [address] 12/11/2023 1:04 PM EDT - 12/11/2023 1:54 PM EDT Surgery [facility], [facility], [facility] - [facility]th [facility] [address] [facility] [place] [address] Ki Huang MD [address] [place] [phone] ESOPHAGOGASTRODUODENOSCOPY (EGD), FLEXIBLE, TRANSORAL, DIAGNOSTIC Scheduled Procedures Name Priority Associated Diagnoses Date/Ti me ESOPHAGOGASTRODUODENOSCOPY ( EGD), FLEXIBLE, TRANSORAL, DIAGNOSTIC Cirrhosis (HCC) 12/11/2023 1:04 PM EDT ESOPHAGOGASTRODUODENOSCOPY ( EGD), FLEXIBLE, TRANSORAL, DIAGNOSTIC 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) COLONOSCOPY FLEXIBLE PROXIMA L DIAGNOSTIC Recall History of colon polyps Health Maintenance Due Date Last Done Comments Cologuard 2009 Fecal Occult Blood Test 2009 Sigmoidoscopy 2009 COVID-19 Vaccine ( season) 2022 Colonoscopy 06/30/2024 06/30/2021, 06/03, 05/30/2019, Additional history exists Colorectal Cancer Screening 06/30/2024 GFR 09/05/2024 09/06/2023, 08/01, 08/11/2023, Additional history exists Albumin/Creatinine Ratio 07/09/2026 07/10/2023 Diabetes Screening 09/05/2026 09/06/2023, 0 08/11/2023, 08/11/2023, Additional history exists DTaP,Tdap,and Td Vaccines (2 - Td or Tdap) 02/15/2027 02/15/2017 Pneumococcal Vaccine: Pediatrics (0 to 5 Years) and At-Risk Patients (6 to 64 Years) Completed 06/24/2022 Influenza Vaccine (FLU shot) Completed 12/08/2022, 12/14/2021, 05/04/2021, Additional history exists GARDASIL-HPV IMMUNIZATION SERIES Aged Out No longer eligible based on patient's age to complete this topic Hepatitis B Discontinued MENINGOCOCCAL (MENACTRA/MENVEO) Aged Out No longer eligible based on patient's age to complete this topic Zoster Vaccines Discontinued documented as of this encounter Medical Devices Not on filedocumented as of this encounter Care Teams Production Editor Relationship Specialty Start Date End Date Toby Paz MD [address] [place] [address] PCP - General Family Medicine 11/25/14 documented as of this encounter
--- OUTSIDE RECORDS SUMMARY | 2023-09-30 15:26 | External Medical Summary | Summary of Care ---
Author Name Unknown Organization [facility] Address [address] [facility] [facility] [address] Phone [phone] Care Team Providers Care Program Trainer Name Role Phone Toby Paz MD Primary Care Provider +1- [phone] Reason for Visit * Reason Comments Acute Pt here due to sebastian CARROLL paper work that needs filled out for his fiance. Encounter Details Date Type Department Care Team (Latest Contact Info) Description 09/18/2023 9:20 AM EDT Office Visit [facility] [address] [place] [address] Drea Raya MD [address] [place] [address] Hepatic encephalopathy (HCC)*; Alcoholic cirrhosis of liver without ascites (HCC); HTN, goal below 130/80; Thrombocytopenia (HCC); DDD (degenerative disc disease), lumbosacral; Avascular necrosis of bone of left hip (HCC) Allergies Active Allergy Reactions Criticality Noted Date Comments Other Allergy (See Comments) Anaphylaxis High 06/21/2018 Bee stings- swelling documented as of this encounter (statuses as of 09/18/2023) Medications Medication Sig Dispensed Refills Start Date [...] left hip 150 g 5 03/29/2023 Active Lactulose 10 GM/15ML Oral Solution [...] Active Additional Information Patient not taking.Reported on 09/18/2023 FLUoxetine HCl 10 MG Oral Capsule (PROzac) [...] as of this encounter (statuses as of 09/18/2023) Active Problems Problem Noted Date Diagnosed Date [...] as of this encounter (statuses as of 09/18/2023) Resolved Problems Problem Noted Date Diagnosed Date Resolved Date History of alcohol abuse 05/22/2023 Alcohol dependence, uncomplicated 01/17/2023 05/22/2023 Avascular necrosis of bone of hip 05/10/2022 05/22/2023 Chronic alcohol abuse 06/17/20212023 Facial swelling 06/09/2017 08/07/2019 Urticaria 06/09/2017 08/07/2019 Intestinal obstruction 05/09/201203/02 CLASSICAL MIGRAINE WITHOU ME NTION OF INTRACTABLE MIGRAINE 11/29/2001 08/07/2019 Undiagnosed cardiac murmurs 11/29/2001 03/02/2017 Overview: Not [place] on 11/29/01 documented as of this encounter (statuses as of 09/18/2023) Immunizations Name Administration Dates Next Due HEP A - Hepatitis A (Adult > 18 yrs) 06/06/2020 Pneumococcal Conjugate Vacci ne, 20-valent ([id number]) 06/24/2022 Seasonal Influenza Virus Vac cine, Unspecified [...] Sign Reading Time Taken Comments Blood Pressure 120/68 09/18/2023 9:14 AM EDT Pulse 66 09/18/2023 9:14 AM EDT Temperature 37.1 C (98.7 F) 09/18/2023 9:14 AM ED T Respiratory Rate 16 09/18/2023 9:14 AM EDT Oxygen Saturation 97% 09/18/2023 9:14 AM EDT Inhaled Oxygen Concentration - - Weight 86.1 kg (189 lb 12.8 oz) 09/18/2023 9:14 AM EDT Height - - Body Mass Index 28.03 05/10/2023 5:59 PM EST documented in this encounter Functional Status Functional Status Response Date of Assess ment Does this person have seriou s difficulty walking or climbing stairs? Yes 08/23/2021 documented as of this encounter Progress Notes * Drea Raya MD - 09/18/2023 9:36 AM EDT ASSESSMENT / PLAN: Mauro Liu is a 58 year old male with PMHx migraines, bowel obstruction, HTN, GERD, DDD and decompensated ETOH cirrhosis complicated by EV, ascites, and hepatic encephalopathy / chronic hip pain s/p total hip arthroplasty L 04/10/23 - here for recheck / FMLA paper work Hepatic encephalopathy (HCC) (Primary) Alcoholic cirrhosis of liver without ascites (HCC) HTN, goal below 130/80 Thrombocytopenia (HCC) DDD (degenerative disc disease), lumbosacral Avascular necrosis of bone of left hip (HCC) Reviewed consult notes from gastroenterology and transplant providers Answered all questions to best of my ability FMLA paper work completed for patient's caregiver If needed, prefers contact by: Ok to leave message on phone: SUBJECTIVE: Nursing Notes: Dayana Menjivar LPN 09/18/23 0917 Signed Chief Complaint Patient presents with Acute Pt here due to having FMLA paper work that needs filled out for his fiance. HPI: Mauro Liu is a 58 year old male. Here for recheck. He is feeling well today. Hip pain issues are resolved since replacement. Uses tramadol for intermittent pain in hands and feet. Cardiac stress test 08/25/23 Summary: 1. Negative stress echo for ischemia. 2. Normal stress echocardiogram. 3. The stress was adequate. 4. There is evidence of ASD. RVSP (PASP) is at least 26mmHg + RAP. 08/11/23 Seen by Liver Transplant specialist at [facility] Plan for transplant Electronically signed by Marisela Sotelo on08/25/2023 08/31/23 L spine MRI IMPRESSION 1. Spondylolysis of L5 without associated spondylolisthesis. 2. New bone marrow edema along the vertebral body endplates at L5-S1 and right pars interarticularis of L5 (including edema associated with a new L5 Schmorl's node), which may contribute to reported symptoms. 3. Otherwise similar multilevel degenerative changes when compared to the prior exam in 2021, as detailed. No high-grade spinal canal narrowing. 08/31/23 Liver MRI IMPRESSION Cirrhosis. No HCC identified; no mass in the region of concern on the recent ultrasound. Portal hypertension with large portosystemic shunt in the right abdomen. Paraesophageal varices. Nosignificant ascites. Last hospitalized for hepatic encephalopathy in June 2023 Reviewed sources 1- Patient Active Problem List Diagnosis Family history of ischemic heart disease Gastroesophageal reflux disease with esophagitis Angioedema Seasonal allergic rhinitis due to pollen Dyslipidemia Elevated LFTs Steatosis of liver HTN, goal below 130/80 Old myocardial infarction Gastro-esophageal reflux disease without esophagitis Thrombocytopenia (HCC) Internal hemorrhoids Subungual hematoma of finger of left hand Transient ischemic attack Cirrhosis of liver (HCC) History of appendectomy Hx SBO Anemia in other chronic diseases classified elsewhere Iron deficiency anemia due to chronic blood loss AAA (abdominal aortic aneurysm) (HCC) Major depressive disorder with single episode Age-related nuclear cataract, bilateral Avascular necrosis of bone of left hip (HCC) Hypoproliferative anemia (HCC) DDD (degenerative disc disease), lumbosacral Other intervertebral disc displacement, lumbosacral region S/P hip replacement, left Esophageal varices without bleeding (HCC) Hepatic encephalopathy (HCC) Current Outpatient Medications Medication Sig Dispense Refill Iron (Ferrous Sulfate) 325 (65 Fe) MG Oral Tablet Take by mouth. Atorvastatin Calcium 20 MG Oral Tablet (Lipitor) Take 1 Tablet by mouth in the morning. 90 Tablet 1 Diclofenac Sodium 1 % External Gel (Voltaren) Apply topically to affected area 2 times a day. Applyto area lateral to left hip 150 g 5 Lactulose 10 GM/15ML Oral Solution (Constulose) Take [...] 1 Tablet before bedtime. 180 Tablet 1 rifAXIMin 550 MG Oral Tablet (Xifaxan) take 1 tablet by mouth IN THE MORNING then take 1 tablet by mouth BEFORE BEDTIME 60 Tablet 2 FLUoxetine HCl 10 MG Oral Capsule (PROzac) Take 1 Capsule by mouth in the morning. 90 Capsule 3 Furosemide 20 MG Oral Tablet (Lasix) Take 1 Tablet by mouth in the morning. Gabapentin 300 MG Oral Capsule (Neurontin) Take 1 Capsule by mouth at bedtime. 30 Capsule 5 traZODone HCl 50 MG Oral Tablet (Desyrel) Take 2 Tablets by mouth at bedtime. 180 Tablet 3 traMADol HCl 50 MG Oral Tablet (Ultram) Take 1 Tablet by mouth every 8 hours as needed for Pain, Severe. 30 Tablet 0 LORazepam 0.5 MG Oral Tablet (Ativan) Take 1 Tablet by mouth every 6 hours as needed. Spironolactone 25 MG Oral Tablet (Aldactone) Take 1 Tablet by mouth in the morning. EpiPen 2-Dave 0.3 MG/0.3ML Injection Solution Auto-injector For a severe reaction: Place orange end against the outer thigh, press firmly, hold in place for 10 seconds and go to the Emergency room. 2 Each 1 Triamcinolone Acetonide 0.1 % External Cream (Aristocort) Apply topically to affected area 2 times a day. To affected area. (Patient not taking: Reported on 09/18/2023) 60 g 5 prednisoLONE Acetate 1 % Ophthalmic Suspension (Pred Forte) Instill 1 Drop into the right eye in the morning and 1 Drop at noon and 1 Drop in the evening and 1 Drop before bedtime. (Patient not taking: Reported on 08/31/2023) Ofloxacin 0.3 % Ophthalmic Solution (Ocuflox) Instill 1 Drop into the right eye in the morning and 1 Drop at noon and 1 Drop in the evening and 1 Drop before bedtime. (Patient not taking: Reported on09/18/2023) Current Facility-Administered Medications Medication Dose Route Frequency Provider Last Rate Last Admin albuterol sulfate (PROVENTIL) (2.5 MG/3ML) 0.083% inhalation solution 2.5 mg 2.5 mg Nebulizer Q4H PRN Toby Paz MD 2.5 mg at 05/10/18 1241 OBJECTIVE: BP 120/68 | Pulse 66 | Temp 37.1 C (98.7 F) (Infrared ) | Resp 16 | Wt 86.1 kg (189 lb 12.8 oz)| SpO2 97% | BMI 28.03 kg/m | BSA 2.05 m Vitals reviewed and is normotensive / afebrile / and not tachycardic General: No acute distress. Neuro: Alert Pleasant & interactive. Respiratory: Good inspiratory effort, no labored breathing. HEENT: Conjunctivae appear clear. No swelling noted face or lips. Skin: No rash visible on exposed skin areas, normal coloration & appears dry. Psych: Normal affect. Fluent speech. I spent a total of 20-29 minutes (exact time 20 mins) on the date of service in preparation, delivery, and documentation of the care provided to Mauro Liu excluding any time spent in the performance of separately billed services. Drea Raya MD [address] [address] There are no Patient Instructions on file for this visit. documented in this encounter Nursing Notes * Dayana Menjivar LPN - 09/18/2023 9:13 AM EDT Chief Complaint Patient presents with Acute Pt here due to having FMLA paper work that needs filled out for his fiance. documented in this encounter Plan of Treatment Upcoming Encounters Date Type Department Care Team (Latest Contact Info) Description 10/09/2023 3:25 PM EDT [facility] [address] [place] [address] Ed Causey MD [address] [facility] [place] [address] 11/21/2023 5:40 PM EDT Office Visit [address] [place] [address] Toby Paz MD [address], [place] [address] 12/11/2023 1:04 PM EDT Hospital Encounter OR [facility], Operating Room, [facility] - 4th Floor [address] [place] [address] Ki Huang MD [address] [place] [address] 12/11/2023 1:04 PM EDT - 12/11/2023 1:54 PM EDT Surgery OR [facility], Operating Room, [facility] - 4th Floor [address] [place] [address] Ki Huang MD [address] [place] [address] ESOPHAGOGASTRODUODENOSCOPY (EGD), FLEXIBLE, TRANSORAL, DIAGNOSTIC Scheduled Procedures Name Priority Associated Diagnoses Date/Ti ia ESOPHAGOGASTRODUODENOSCOPY ( EGD), FLEXIBLE, TRANSORAL, DIAGNOSTIC Cirrhosis (HCC) 12/11/2023 1:04 PM EDT ESOPHAGOGASTRODUODENOSCOPY ( EGD), FLEXIBLE, TRANSORAL, DIAGNOSTIC 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) COLONOSCOPY FLEXIBLE PROXIMA L DIAGNOSTIC Recall History of colon polyps Health Maintenance Due Date Last Done Comments Cologuard 2009 Fecal Occult Blood Test 2009 Sigmoidoscopy 2009 COVID-19 Vaccine ( season) 2022 Depression Monitoring 04/17/2024 04/17/2023 Colonoscopy 06/30/2024 06/30/2021, 06/03, 05/30/2019, Additional history [...] without ascites (HCC) Alcoholic cirrhosis of liver HTN, goal below 130/80 Unspecified essential hypertension Thrombocytopenia (HCC) Thrombocytopenia, unspecified DDD (degenerative disc disease), lumbosacral Degeneration of lumbar or lumbosacral intervertebral disc Avascular necrosis of bone of left hip (HCC) Cirrhosis (HCC) Cirrhosis of liver without mention of alcohol documented in this encounter Care Teams Program Trainer Relationship Specialty Start Date End Date Toby Paz MD [address] [place] [address] PCP - General Family Medicine 11/25/14 documented as of this encounter"
--- OUTSIDE RECORDS SUMMARY | 2023-09-30 15:26 | External Medical Summary | Summary of Care ---
Author Name Unknown Organization [facility] Address [address] [facility] [place] [address] Phone [phone] Care Team Providers Care Surveyor Instrument Assistant Name Role Phone Toby Paz MD Primary Care Provider +1- [phone] Encounter Details Date Type Department Care Team (Late st Contact Info) Description 09/14/2023 Orders Only [facility] [address] [place] [address] Toby Paz MD [address] [place] [address] Allergies Active Allergy Reactions Criticality Noted Date Comments Other Allergy (See Comments) Anaphylaxis High 06/21/2018 Bee stings- swelling documented as of this encounter (statuses as of 09/14/2023) Medications Medication Sig Dispensed Refills Start Date [...] 2.5 mg NEBULIZER Q4H PRN 05/10/2018 Act gumzan documented as of this encounter (statuses as of 09/14/2023) Active Problems Problem Noted Date Diagnosed Date [...] ischemic heart disease 002 Overview: father had [place]'s in 40's Gastroesophageal reflux disease with esophagitis documented as of this encounter (statuses as of 09/14/2023) Resolved Problems Problem Noted Date Diagnosed Date Resolved Date History of alcohol abuse 05/22/2023 Alcohol dependence, uncomplicated 01/17/2023 05/22/2023 Avascular necrosis of bone of hip 05/10/2022 05/22/2023 Chronic alcohol abuse 06/17/20212023 Facial swelling 06/09/2017 08/07/2019 Urticaria 06/09/2017 08/07/2019 Intestinal obstruction 05/09/201203/02 CLASSICAL MIGRAINE WITHOU ME NTION OF INTRACTABLE MIGRAINE 11/29/2001 08/07/2019 Undiagnosed cardiac murmurs 11/29/2001 03/02/2017 Overview: Not [place] on 11/29/01 documented as of this encounter (statuses as of 09/14/2023) Immunizations Name Administration Dates Next Due HEP A - Hepatitis A (Adult > 18 yrs) 06/06/2020 Pneumococcal Conjugate Vacci ne, 20-valent ([id number]) 06/24/2022 Seasonal Influenza Virus Vac cine, Unspecified [...] Description 09/18/2023 9:20 AM EDT Office Visit [facility] [address] [place] [address] Drea Raya MD [address] [place] [address] 10/09/2023 3:25 PM EDT Office Visit [facility], [facility] [address] [facility] [place] [address] Ed Causey MD [address] [place] [address] 11/21/2023 5:40 PM EDT Office Visit [place] [address] [facility] [place] [address] Toby Paz MD [address] [place] [facility] [address] 12/11/2023 1:04 PM EDT Hospital Encounter OR [facility], Operating Room, [facility] - 4th Floor [address] [place] [address] Ki Huang MD [address] [place] [address] 12/11/2023 1:04 PM EDT - 12/11/2023 1:54 PM EDT Surgery OR [facility], Operating Room, [facility] - 4th Floor [address] [place] [address] Ki Huang MD [address] [place] [address] ESOPHAGOGASTRODUODENOSCOPY (EGD), FLEXIBLE, TRANSORAL, DIAGNOSTIC Scheduled Procedures Name Priority Associated Diagnoses Date/Ti ky ESOPHAGOGASTRODUODENOSCOPY ( EGD), FLEXIBLE, TRANSORAL, DIAGNOSTIC Cirrhosis [...] Procedure Name Priority Date/Time Associated Diagnosis Comments DEXA SCAN/BONE MINERAL AXIAL Routine 09/12/2023 documented in this encounter Results * DEXA SCAN/BONE MINERAL AXIAL (09/12/2023) Anatomical Region Laterality Modality Dexa, Vertebra, Spine, Hip, Pelvis Other 09/12/2023 History Per Patient RADIOLOGY (RAD GENER AL) documented in this encounter Care Teams Surveyor Instrument Assistant Relationship Specialty Start Date End Date Toby Paz MD [address] [place] [address] PCP - General Family Medicine 11/25/14 documented as of this encounter
--- OUTSIDE RECORDS SUMMARY | 2023-09-30 15:26 | External Medical Summary | Summary of Care ---
Author Name Unknown Organization [facility] Address [address] [facility] [place] [address] Phone [phone] Care Team Providers Care Steel Rule Die Maker Name Role Phone Toby Paz MD Primary Care Provider +1- [phone] Reason for Visit * Reason Onset Date Comments FYI 09/07/2023 Encounter Details Date Type Department Care Team (Late st Contact Info) Description 09/07/2023 Telephone [facility] [address] [place] [address] Toby Paz MD [address] [place] [address] FYI Allergies Active Allergy Reactions [...] Undiagnosed cardiac murmurs 11/29/2001 03/02/2017 Overview: Not [place] on 11/29/01 documented as of this encounter (statuses as of 09/11/2023) Immunizations Name Administration Dates Next Due HEP A - Hepatitis A (Adult > 18 yrs) 06/06/2020 Pneumococcal Conjugate Vacci ne, 20-valent ([id number]) 06/24/2022 Seasonal Influenza Virus Vac cine, Unspecified [...] paperwork on desk * Telephone Encounter - Kay Chino OSA - 09/07/2023 3:34 PM EDT Paperwork 09/07/23 Carmen Marr dropped off [place] paperwork from her employer, [employer] to be filled out/ She is the care management assistant for the pt. Paperwork placed in provider's mail bin. It is in an envelope from [employer]. documented in this encounter Plan of Treatment Upcoming Encounters Date Type Department Care Team (Latest Contact Info) Description 10/09/2023 3:25 PM EDT Office Visit [facility] [address] [place] [address] Ed Causey MD [address] [place] [address] 11/21/2023 5:40 PM EDT Office Visit [place] [address] [place] [address] Toby Paz MD [address] [place] [address] 12/11/2023 1:04 PM EDT Hospital Encounter OR [facility], Operating Room, [facility] - 4th Floor [address] [facility] [place] [address] Ki Huang MD [address] [place] [address] 12/11/2023 1:04 PM EDT - 12/11/2023 1:54 PM EDT Surgery OR [facility], Operating Room, [facility] - 4th Floor [address] [facility] [place] [address] Ki Huang MD [address] [place] [address] ESOPHAGOGASTRODUODENOSCOPY (EGD), FLEXIBLE, TRANSORAL, DIAGNOSTIC Scheduled Procedures [...] filedocumented as of this encounter Care Teams Steel Rule Die Maker Relationship Specialty Start Date End Date Toby Paz MD [address] [place] [address] PCP - General Family Medicine 11/25/14 documented as of this encounter
--- OUTSIDE RECORDS SUMMARY | 2023-09-30 15:26 | External Medical Summary | Summary of Care ---
Author Name Unknown Organization [facility] Address [address] [facility] [place] [address] Phone [phone] Care Team Providers Care Appraiser Personal Property Name Role Phone Toby Pza MD Primary Care Provider +1- [phone] Reason for Visit * Reason Comments Outpatient Testing Encounter Details Date Type Department Care Team (Late st Contact Info) Description 09/06/2023 11:10 AM EDT Laboratory Laboratory, [place] [address] [place] [address] [facility] [address] [place] [address] S/P hip replacement; Alcoholic cirrhosis of liver with ascites (HCC); [employer] Other*[id number] Allergies Active Allergy Reactions Criticality Noted Date Comments Other Allergy (See Comments) Anaphylaxis High 06/21/2018 Bee stings- swelling documented as of this encounter (statuses as of 09/06/2023) Medications Medication Sig Dispensed Refills Start Date [...] as of this encounter (statuses as of 09/06/2023) Active Problems Problem Noted Date Diagnosed Date [...] ischemic heart disease 002 Overview: father had [place]'s in 40's Gastroesophageal reflux disease with esophagitis documented as of this encounter (statuses as of 09/06/2023) Resolved Problems Problem Noted Date Diagnosed Date Resolved Date History of alcohol abuse 05/22/2023 Alcohol dependence, uncomplicated 01/17/2023 05/22/2023 Avascular necrosis of bone of hip 05/10/2022 05/22/2023 Chronic alcohol abuse 06/17/20212023 Facial swelling 06/09/2017 08/07/2019 Urticaria 06/09/2017 08/07/2019 Intestinal obstruction 05/09/201203/02 CLASSICAL MIGRAINE WITHOU ME NTION OF INTRACTABLE MIGRAINE 11/29/2001 08/07/2019 Undiagnosed cardiac murmurs 11/29/2001 03/02/2017 Overview: Not [place] on 11/29/01 documented as of this encounter (statuses as of 09/06/2023) Immunizations Name Administration Dates Next Due HEP A - Hepatitis A (Adult > 18 yrs) 06/06/2020 Pneumococcal Conjugate Vacci ne, 20-valent ([id number]) 06/24/2022 Seasonal Influenza Virus Vac cine, Unspecified [...] PM EDT Office Visit [facility], [facility] [address] [facility] [place] [address] Ed Causey MD [address] [place] [address] 11/21/2023 5:40 PM EDT Office Visit [facility] [address] [facility] [id number] Toby Paz MD [address] [place] [address] 12/11/2023 1:04 PM EDT Hospital Encounter OR [facility], Operating Room, [facility] - 4th Floor [address] [place] [address] Ki Huang MD [address] [place] [address] 12/11/2023 1:04 PM EDT - 12/11/2023 1:54 PM EDT Surgery OR [facility], Operating Room, [facility] - 4th Floor [address] [place] [address] Ki Huang MD [address] [place] [address] ESOPHAGOGASTRODUODENOSCOPY (EGD), FLEXIBLE, TRANSORAL, DIAGNOSTIC Pending Results Name Type Priority Associated Diagnoses Date /Time CBC WITH WBC DIFFERENTIAL Lab STAT S/P hip replacement 09/06/2023 11:22 AM EDT COMPREHENSIVE METABOLIC PANEL Lab Routine Alcoholic cirrhosis of liver with ascites (HCC) 09/06/2023 11:22 AM EDT PT INR Lab Routine Alcoholic cirrhosis of liver with ascites (HCC) 09/06/2023 11:22 AM EDT AMMONIA Lab Routine Alcoholic cirrhosis of liver with ascites (HCC) 09/06/2023 11:22 AM EDT MYCODE SUBSEQUENT ADULT Lab Routine [employer] Other*[id number] 09/06/2023 11:22 AM EDT CBC Lab STAT S/P hip replacement 09/06/2023 11:22 AM EDT DIFFERENTIAL, AUTOMATED Lab STAT S/P hip replacement 09/06/2023 11:22 AM EDT MYCODE SST1 Lab Routine [employer] Other*[id number] 09/06/2023 11:22 AM EDT MYCODE SST2 Lab Routine [employer] Other*[id number] 09/06/2023 11:22 AM EDT CULTURE, URINE, QUANTITATIVE Lab Routine Alcoholic cirrhosis of liver with ascites (HCC) 09/06/2023 11:22 AM EDT Scheduled Procedures Name Priority Associated Diagnoses Date/Ti nv ESOPHAGOGASTRODUODENOSCOPY ( EGD), FLEXIBLE, TRANSORAL, DIAGNOSTIC Cirrhosis [...] history exists Colorectal Cancer Screening 06/30/2024 GFR 08/10/2024 08/11/2023, 08/01, 08/10/2023, Additional history exists Albumin/Creatinine Ratio 07/09/2026 07/10/2023 Diabetes Screening 08/10/2026 08/11/2023, 0 08/11/2023, 08/10/2023, Additional history exists DTaP,Tdap,and Td Vaccines (2 [...] this encounter Visit Diagnoses Diagnosis S/P hip replacement Hip joint replacement by other means Alcoholic cirrhosis of liver with ascites (HCC) Alcoholic cirrhosis of liver [employer] Other*[id number] Cirrhosis (HCC) Cirrhosis of liver without mention of alcohol documented in this encounter Care Teams Appraiser Personal Property Relationship Specialty Start Date End Date Toby Paz MD [address] [place] [address] PCP - General Family Medicine 11/25/14 documented as of this encounter
--- OUTSIDE RECORDS SUMMARY | 2023-09-30 15:26 | External Medical Summary | Summary of Care ---
Author Name Unknown Organization [facility] Address [address] [facility] [place] [address] Phone [phone] Care Team Providers Care Furnace Erector Name Role Phone Toby Paz MD Primary Care Provider +1- [phone] Reason for Visit * Reason Comments Outpatient Testing Encounter Details Date Type Department Care Team (Late st Contact Info) Description 09/06/2023 11:10 AM EDT Laboratory Laboratory, [place] [address] [place] [address] [facility] Laboratory [address] [place] [address] S/P hip replacement; Alcoholic cirrhosis of liver with ascites (HCC); [employer] Other*[id number] Allergies Active Allergy Reactions Criticality Noted Date Comments Other Allergy (See Comments) Anaphylaxis High 06/21/2018 Bee stings- swelling documented as of this encounter (statuses as of 09/07/2023) Medications Medication Sig Dispensed Refills Start Date [...] as of this encounter (statuses as of 09/07/2023) Active Problems Problem Noted Date Diagnosed Date [...] as of this encounter (statuses as of 09/07/2023) Resolved Problems Problem Noted Date Diagnosed Date Resolved Date History of alcohol abuse 05/22/2023 Alcohol dependence, uncomplicated 01/17/2023 05/22/2023 Avascular necrosis of bone of hip 05/10/2022 05/22/2023 Chronic alcohol abuse 06/17/20212023 Facial swelling 06/09/2017 08/07/2019 Urticaria 06/09/2017 08/07/2019 Intestinal obstruction 05/09/201203/02 CLASSICAL MIGRAINE WITHOU ME NTION OF INTRACTABLE MIGRAINE 11/29/2001 08/07/2019 Undiagnosed cardiac murmurs 11/29/2001 03/02/2017 Overview: Not [place] on 11/29/01 documented as of this encounter (statuses as of 09/07/2023) Immunizations Name Administration Dates Next Due HEP A - Hepatitis A (Adult > 18 yrs) 06/06/2020 Pneumococcal Conjugate Vacci ne, 20-valent ([id number]) 06/24/2022 Seasonal Influenza Virus Vac cine, Unspecified [...] as of this encounter Miscellaneous Notes * Result Encounter Note - Keyanna Gordon CRNP - 09/07/2023 1:40 PM EDT I called the pt's cell phone and left this message: your ammonia level is high at 104. If you are weak, very sleepy or confused, please have a family member thank you to the emergency department. If you are feeling your usual, up and around, able to walk and take care of yourself, then you do not need to go the emergency department or do anything differently. OYGESH Orta documented in this encounter Plan of Treatment Upcoming Encounters Date Type Department Care Team (Latest Contact Info) Description 10/09/2023 3:25 PM EDT Office Visit Inter[facility] Center, [facility] [address] [place] [address] Ed Causey MD [address] [facility] [place] [address] 11/21/2023 5:40 PM EDT Office Visit [facility] [address] [place] [facility] [id number] Toby Paz MD [address] [place] [address] 12/11/2023 1:04 PM EDT Hospital Encounter OR [facility], Operating Room, [facility] - 4th Floor [address] [facility] [place] [address] Ki Huang MD [address] [place] [address] 12/11/2023 1:04 PM EDT - 12/11/2023 1:54 PM EDT Surgery OR [facility], Operating Room, [facility] - 4th Floor [address] [facility] [place] [address] Ki Huang MD [address] [place] [address] ESOPHAGOGASTRODUODENOSCOPY (EGD), FLEXIBLE, TRANSORAL, DIAGNOSTIC Pending Results Name Type Priority Associated Diagnoses Date /Time CULTURE, URINE, QUANTITATIVE Lab Routine Alcoholic cirrhosis of liver with ascites (HCC) 09/06/2023 11:22 AM EDT Scheduled Procedures Name Priority Associated Diagnoses Date/Ti wv ESOPHAGOGASTRODUODENOSCOPY ( EGD), FLEXIBLE, TRANSORAL, DIAGNOSTIC Cirrhosis [...] Procedure Name Priority Date/Time Associated Diagnosis Comments MYCODE SST1 Routine 09/06/2023 11:22 AM EDT [employer] Other*[id number] MYCODE INITIAL ADULT-2SST Routine 09/06/2023 11:22 AM EDT [employer] Other*[id number] DIFFERENTIAL, AUTOMATED STAT 09/06/2023 11:22 AM EDT S/P hip replacement MYCODE SUBSEQUENT ADULT Routine 09/06/2023 11:22 AM EDT [employer] Other*[id number] COMPREHENSIVE METABOLIC PANEL Routine 09/06/2023 11:22 AM EDT Alcoholic cirrhosis of liver with ascites (HCC) CBC STAT 09/06/2023 11:22 AM EDT S/P hip replacement PT INR Routine 09/06/2023 11:22 AM EDT Alcoholic cirrhosis of liver with ascites (HCC) CBC STAT 09/06/2023 11:22 AM EDT S/P hip replacement AMMONIA Routine 09/06/2023 11:22 AM EDT Alcoholic cirrhosis of liver with ascites (HCC) documented in this encounter Results * MYCODE SST2 (09/06/2023 11:22 AM EDT) MyCode Specimen Freezing of extracted DNA, whole blood and/or serum. 09/07/2023 9:01 AM EDT LAB[facility]ATORY [facility] Blood Venous blood specimen / Unknown Venipuncture / Unknown 09/06/2023 11:22 AM EDT 09/06/2023 11:22 AM EDT Edna Redman CHRA LAB BLOOD ORDERAB LES Performing Organization Address [facility]/ZIP Co de Phone Number LABORATORY [facility] [address] [place] [address] * MYCODE SST1 (09/06/2023 11:22 AM EDT) Pathologist [facility] MyCode Specimen Freezing of extracted DNA, whole blood and/or serum. 09/07/2023 9:01 AM EDT LAB[facility] Blood Venous blood specimen / Unknown Venipuncture / Unknown 09/06/2023 11:22 AM EDT 09/06/2023 11:22 AM EDT Edna A Stjean carloss CHRA LAB BLOOD ORDERAB LES Performing Organization Address [facility]/ZIP Co de Phone Number LABORATORY [facility] [address] [place] [address] * (ABNORMAL) DIFFERENTIAL, AUTOMATED (09/06/2023 11:22 AM EDT) WBC 5.61 4.00 - 10.80 K/uL 09/06/2023 11:55 PM EDT [facility] Neutrophils % 61.2 40.0 - 75.0 % 09/06/2023 11:55 PM EDT LAB[facility] Lymphocytes % 17.6(L) 18.0 - 42.0 % 09/06/2023 11:55 PM EDT LAB[facility] Monocytes % 11.9(H) 1.0 - 11.0 % 09/06/2023 11:55 PM EDT LAB[facility] Eosinophils % 8.2(H) 0.0 - 6.0 % 09/06/2023 11:55 PM EDT LAB[facility] Basophils % 0.9 0.0 - 2.0 % 09/06/2023 11:55 PM EDT LAB[facility] Immature Granulocytes % 0.2 0.0 - 2.0 % 09/06/2023 11:55 PM EDT LAB[facility] Absolute Neutrophils 3.43 1.80 - 7.70 K/uL 09/06/2023 11:55 PM EDT LAB[facility]AT[facility] Absolute Lymphocytes 0.99(L) 1.00 - 4.80 K/ul 09/06/2023 11:55 PM EDT LAB[facility]ORY [facility] Absolute Monocytes 0.67 0.00 - 1.10 K/uL 09/06/2023 11:55 PM EDT LAB[facility] Absolute Eosinophils 0.46 0.00 - 0.70 K/uL 09/06/2023 11:55 PM EDT LAB[facility] Absolute Basophils 0.05 0.00 - 0.20 K/uL 09/06/2023 11:55 PM EDT LAB[facility] Absolute Immature Granulocytes 0.01 0.00 - 0.20 K/uL 09/06/2023 11:55 PM EDT LAB[facility] Blood Venous blood specimen / Unknown Venipuncture / Unknown 09/06/2023 11:22 AM EDT 09/06/2023 11:22 AM EDT Camille Jaimes PA-C LAB BLOOD ORDERABLES LAB[facility]ORY [facility] [address] [place] [address] * (ABNORMAL) CBC (09/06/2023 11:22 AM EDT) WBC 5.61 4.00 - 10.80 K/uL 09/06/2023 11:55 PM EDT LAB[facility] RBC 4.09 4.50 - 5.25 M/uL 09/06/2023 11:55 PM EDT LAB[facility] HGB 13.7(L) 14.0 - 16.8 g/dL 09/06/2023 11:55 PM EDT LAB[facility] HCT 41.1 40.0 - 48.4 % 09/06/2023 11:55 PM EDT LAB[facility]ATORY [facility] MCV 100.5 82.0 - 99.5 fL 09/06/2023 11:55 PM EDT LAB[facility] MCH 33.5 27.0 - 34.0 pg 09/06/2023 11:55 PM EDT LABORATORY GM MCHC 33.3 32.0 - 36.0 g/dL 09/06/2023 11:55 PM EDT LAB[facility]ORY [facility] RDW 16.4 11.5 - 15.5 % 09/06/2023 11:55 PM EDT LABORATORY GM PLT 44(L) 140 - 400 K/uL 09/06/2023 11:55 PM EDT LABORATORY GM MPV 15.7 6.6 - 11.1 fL 09/06/2023 11:55 PM EDT LABORATORY GM nRBCs 0 <=0 /100 WBCs 09/06/2023 11:55 PM EDT LABORATORY [facility] Blood Venous blood specimen / Unknown Venipuncture / Unknown 09/06/2023 11:22 AM EDT 09/06/2023 11:22 AM EDT Camille Jaimes PA-C LAB BLOOD ORDERABLES LABORATORY [facility] [address] [place] [address] * (ABNORMAL) AMMONIA (09/06/2023 11:22 AM EDT) Ammonia 106(HH) 11 - 35 umol/L 09/06/2023 11:19 PM EDT LABORATORY [facility] Comment:Hemolysis may interf ere with result. Blood Venous blood specimen / Unknown Venipuncture / Unknown 09/06/2023 11:22 AM EDT 09/06/2023 11:22 AM EDT Keyanna ZUÑIGA LAB BLOOD ORDERABL ES Performing Organization Address [facility] de Phone Number LABORATORY [facility] [address] [place] [address] * (ABNORMAL) PT INR (09/06/2023 11:22 AM EDT) Prothrombin Time 17.8(H) 11.6 - 15.2 seconds 09/06/2023 11:02 PM EDT LABORATORY [facility] INR 1.5(H) 0.8 - 1.2 09/06/2023 11:02 PM EDT LABORATORY [facility] Blood Venous blood specimen / Unknown Venipuncture / Unknown 09/06/2023 11:22 AM EDT 09/06/2023 11:22 AM EDT Narrative LABORATORY [facility] - 09/06/2023 11:02 PM EDT Warfarin Therapy INR: 2.0-3.0 conventional anticoagulation INR: 2.5-3.5 high intensity anticoagulation Keyanna ZUÑIGA LAB BLOOD ORDERABL ES Performing Organization Address [facility] de Phone Number LABORATORY [facility] [address] [place] [address] * (ABNORMAL) COMPREHENSIVE METABOLIC PANEL (09/06/2023 11:22 AM EDT) BUN 11 6 - 20 mg/dL 09/06/2023 11:12 PM EDT LABORATORY [facility] Creatinine 0.9 0.6 - 1.2 mg/dL 09/06/2023 11:12 PM EDT LABORATORY [facility] Estimated Glomerular Filtration Rate >90 >=60 mL/min 09/06/2023 11:12 PM EDT LABORATORY [facility] Comment:eGFR is calculated b ased on the CKD-EPI 2020 equation Sodium 142 135 - 146 mmol/L 09/06/2023 11:12 PM EDT LAB[facility]ORY [facility] Potassium 4.3 3.5 - 5.1 mmol/L 09/06/2023 11:12 PM EDT LAB[facility] Chloride 110(H) 98 - 107 mmol/L 09/06/2023 11:12 PM EDT LAB[facility] CO2 20(L) 22 - 32 mmol/L 09/06/2023 11:12 PM EDT LAB[facility] Anion Gap 12 7 - 15 mmol/L 09/06/2023 11:12 PM EDT LAB[facility] Glucose 92 70 - 120 mg/dL 09/06/2023 11:12 PM EDT LAB[facility] Albumin 3.5(L) 3.8 - 5.0 g/dL 09/06/2023 11:12 PM EDT LAB[facility] AST 51(H) 10 - 50 U/L 09/06/2023 11:12 PM EDT LAB[facility]ORY [facility] Alkaline Phosphatase 173(H) 35 - 130 U/L 09/06/2023 11:12 PM EDT LAB[facility] Bilirubin, Total 1.4(H) <=1.2 mg/dL 09/06/2023 11:12 PM EDT LAB[facility] Calcium 8.9 8.4 - 10.2 mg/dL 09/06/2023 11:12 PM EDT LAB[facility] Protein 5.9(L) 6.0 - 8.3 g/dL 09/06/2023 11:12 PM EDT LAB[facility] ALT 37 10 - 50 U/L 09/06/2023 11:12 PM EDT LABORATORY C Blood Venous blood specimen / Unknown Venipuncture / Unknown 09/06/2023 11:22 AM EDT 09/06/2023 11:22 AM EDT Keyanna ZUÑIGA LAB BLOOD ORDERABL ES LABORATORY [facility] [address] [place] [address] documented in this encounter Visit Diagnoses Diagnosis S/P hip replacement Hip joint replacement by other means Alcoholic cirrhosis of liver with ascites (HCC) Alcoholic cirrhosis of liver [employer] Other*[id number] Cirrhosis (HCC) Cirrhosis of liver without mention of alcohol documented in this encounter Care Teams Furnace Erector Relationship Specialty Start Date End Date Toby Paz MD [address] [place] [address] PCP - General Family Medicine 11/25/14 documented as of this encounter
--- OUTSIDE RECORDS SUMMARY | 2023-09-30 15:26 | External Medical Summary | Summary of Care ---
Author Name Unknown Organization [facility] Address [address] [facility] [place] [address] Phone [phone] Care Team Providers Care Cotton Candy Maker Name Role Phone Toby Pza MD Primary Care Provider +1- [phone] Reason for Visit * Reason Comments Outpatient Testing Encounter Details Date Type Department Care Team (Late st Contact Info) Description 09/06/2023 11:10 AM EDT Laboratory Laboratory, [place] [address] [place] [address] [facility] Laboratory [address] [place] [address] S/P hip replacement; Alcoholic cirrhosis of liver with ascites (HCC); [employer] Other*[id number] Allergies Active Allergy Reactions Criticality Noted Date [...] Undiagnosed cardiac murmurs 11/29/2001 03/02/2017 Overview: Not [place] on 11/29/01 documented as of this encounter (statuses as of 09/06/2023) Immunizations Name Administration Dates Next Due HEP A - Hepatitis A (Adult > 18 yrs) 06/06/2020 Pneumococcal Conjugate Vacci ne, 20-valent ([id number]) 06/24/2022 Seasonal Influenza Virus Vac cine, Unspecified [...] PM EDT Office Visit Interventional Pain Center, [facility] [address] [facility] [place] [address] Ed Causey MD [address] [place] [address] 11/21/2023 5:40 PM EDT Office Visit [facility] [address] [facility] [phone] Toby Paz MD [address] [place] [address] 12/11/2023 1:04 PM EDT Hospital Encounter OR [facility], Operating Room, [facility] - 4th Floor [address] [place] [address] Ki Huang MD [address] [place] [address] 12/11/2023 1:04 PM EDT - 12/11/2023 1:54 PM EDT Surgery OR [facility], Operating Room, [facility] - 4th Floor [address] [place] [address] Ki Huang MD [address] [place] [address] ESOPHAGOGASTRODUODENOSCOPY (EGD), FLEXIBLE, TRANSORAL, DIAGNOSTIC Pending Results [...] MYCODE SUBSEQUENT ADULT Lab Routine [employer] Other*[id number] 09/06/2023 11:22 AM EDT CBC Lab STAT S/P hip replacement 09/06/2023 11:22 AM EDT DIFFERENTIAL, AUTOMATED Lab STAT S/P hip replacement 09/06/2023 11:22 AM EDT MYCODE SST1 Lab Routine [employer] Other*[id number] 09/06/2023 11:22 AM EDT MYCODE SST2 Lab Routine [employer] Other*[id number] 09/06/2023 11:22 AM EDT CULTURE, URINE, QUANTITATIVE Lab Routine Alcoholic cirrhosis of liver with ascites (HCC) 09/06/2023 11:22 AM EDT Scheduled Procedures Name Priority Associated Diagnoses Date/Ti wa ESOPHAGOGASTRODUODENOSCOPY ( EGD), FLEXIBLE, TRANSORAL, DIAGNOSTIC Cirrhosis [...] (HCC) Alcoholic cirrhosis of liver [employer] Other*[id number] Cirrhosis (HCC) Cirrhosis of liver without mention of alcohol documented in this encounter Care Teams Cotton Candy Maker Relationship Specialty Start Date End Date Toby Paz MD [address] [place] [address] PCP - General Family Medicine 11/25/14 documented as of this encounter
--- OUTSIDE RECORDS SUMMARY | 2023-09-30 15:26 | External Medical Summary | Summary of Care ---
Author Name Unknown Organization [facility] Address [address] [facility] [address] Phone [phone] Care Team Providers Care Butter Grader Name Role Phone Toby Paz MD Primary Care Provider +1- [phone] Reason for Visit * Reason Onset Date Comments FYI 09/07/2023 [facility] paper work Encounter Details Date Type Department Care Team (Late st Contact Info) Description 09/07/2023 Telephone [facility] [address] [place] [address] Toby Paz MD [address] [place] [address] FYI ([facility] paper work) Allergies Active Allergy Reactions Criticality Noted Date [...] Undiagnosed cardiac murmurs 11/29/2001 03/02/2017 Overview: Not [place] on 11/29/01 documented as of this encounter (statuses as of 09/14/2023) Immunizations Name Administration Dates Next Due HEP A - Hepatitis A (Adult > 18 yrs) 06/06/2020 Pneumococcal Conjugate Vacci ne, 20-valent ([id number]) 06/24/2022 Seasonal Influenza Virus Vac cine, Unspecified [...] Telephone Encounter - Maylin Sutton OSA - 09/14/2023 2:19 PM EDT Forms put in accordian folder in Nurses closet for upcoming appointment. 09/14/2023 * Telephone Encounter - Dayana Menjivar LPN - 09/12/2023 7:[address] Maurer due you still have the paper work from pt regarding FMLA? I can send it to Dr. Ochoa who saw pton 08/17/2023. Thanks * Telephone Encounter - Toby Paz MD - 09/11/2023 5:22 PM EDT I have not seen patient since 2021 and we have not discussed FMLA paperwork. He should either get the paperwork to a provider that has seen him and discussed FMLA or be given an appointment for the paperwork. * Telephone Encounter - Kasey Benavidez LPN - 09/11/2023 12:20 PM EDT Noted. * Telephone Encounter - Lillie Rodriguez OSA - 09/11/2023 9:13 AM EDT Araceli from [facility] office will send urgent message to Dr. Hernandez to do paperwork otto. 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 Paperwork placed in provider's mail bin. It is in an envelope from [employer]. documented in this encounter Plan of Treatment Upcoming Encounters Date Type Department Care Team (Latest Contact Info) Description 09/18/2023 9:20 AM EDT Office Visit [place] [address] [place] [phone] Drea Raya MD [address] [place] [address] 10/09/2023 3:25 PM EDT Office Visit Inter[facility] Center, [facility] [address] [place] [address] Ed Causey MD [address] [place] [address] 11/21/2023 5:40 PM EDT Office Visit [place] [address] [place] [address] Toby Paz MD [address] [place] [address] 12/11/2023 1:04 PM EDT Hospital Encounter OR [place], Operating Room, [facility] - 4th Floor [address] [facility] [place] [address] Ki Huang MD [address] [place] [address] 12/11/2023 1:04 PM EDT - 12/11/2023 1:54 PM EDT Surgery OR [facility], Operating Room, [facility] - 4th Floor [address] [facility] [place] [address] Ki Huang MD [address] [place] [address] ESOPHAGOGASTRODUODENOSCOPY (EGD), FLEXIBLE, TRANSORAL, DIAGNOSTIC Scheduled Procedures Name Priority Associated Diagnoses Date/Ti mn ESOPHAGOGASTRODUODENOSCOPY ( EGD), FLEXIBLE, TRANSORAL, DIAGNOSTIC Cirrhosis [...] filedocumented as of this encounter Care Teams Butter Grader Relationship Specialty Start Date End Date Toby Paz MD [address] [place] [address] PCP - General Family Medicine 11/25/14 documented as of this encounter
--- OUTSIDE RECORDS SUMMARY | 2023-09-30 15:26 | External Medical Summary | Summary of Care ---
Author Name Unknown Organization [facility] Address [address] [facility] [place] [place] [address] Phone [phone] Care Team Providers Care Sustainability Coordinator Name Role Phone Toby Paz MD Primary Care Provider +1- [phone] Reason for Visit * Reason Comments Outpatient Testing Encounter Details Date Type Department Care Team (Late st Contact Info) Description 09/06/2023 11:10 AM EDT Laboratory Laboratory, [place] [address] [place] [address] [facility] Laboratory [address] [place] [address] S/P hip replacement; Alcoholic cirrhosis of liver with ascites (HCC); [employer] Other*[id number] Allergies Active Allergy Reactions Criticality Noted Date [...] ischemic heart disease 002 Overview: father had OK's in 40's Gastroesophageal reflux disease with esophagitis [...] Undiagnosed cardiac murmurs 11/29/2001 03/02/2017 Overview: Not [place] on 11/29/01 documented as of this encounter (statuses as of 09/06/2023) Immunizations Name Administration Dates Next Due HEP A - Hepatitis A (Adult > 18 yrs) 06/06/2020 Pneumococcal Conjugate Vacci ne, 20-valent ([id number]) 06/24/2022 Seasonal Influenza Virus Vac cine, Unspecified [...] PM EDT Office Visit Inter[facility] Center, [facility] [address] [facility] [place] [address] Ed Causey MD [address] [place] [address] 11/21/2023 5:40 PM EDT Office Visit [facility] [address] [facility] [phone] Toby Paz MD [address] [place] [facility] [address] 12/11/2023 1:04 PM EDT Hospital Encounter OR [facility], Operating Room, [facility] - 4th Floor [address] [address] Ki Huang MD [address] [place] [address] 12/11/2023 1:04 PM EDT - 12/11/2023 1:54 PM EDT Surgery OR [facility], Operating Room, [facility] - 4th Floor [address] [place] [address] Ki Huang MD [address] [place] [address] ESOPHAGOGASTRODUODENOSCOPY (EGD), FLEXIBLE, TRANSORAL, DIAGNOSTIC Pending Results [...] MYCODE SUBSEQUENT ADULT Lab Routine [employer] Other*[id number] 09/06/2023 11:22 AM EDT CBC Lab STAT S/P hip replacement 09/06/2023 11:22 AM EDT DIFFERENTIAL, AUTOMATED Lab STAT S/P hip replacement 09/06/2023 11:22 AM EDT MYCODE SST1 Lab Routine [employer] Other*[id number] 09/06/2023 11:22 AM EDT MYCODE SST2 Lab Routine [employer] Other*[id number] 09/06/2023 11:22 AM EDT CULTURE, URINE, QUANTITATIVE Lab Routine Alcoholic cirrhosis of liver with ascites (HCC) 09/06/2023 11:22 AM EDT Scheduled Procedures Name Priority Associated Diagnoses Date/Ti ok ESOPHAGOGASTRODUODENOSCOPY ( EGD), FLEXIBLE, TRANSORAL, DIAGNOSTIC Cirrhosis [...] (HCC) Alcoholic cirrhosis of liver [employer] Other*[id number] Cirrhosis (HCC) Cirrhosis of liver without mention of alcohol documented in this encounter Care Teams Sustainability Coordinator Relationship Specialty Start Date End Date Toby Paz MD [address] [place] [address] PCP - General Family Medicine 11/25/14 documented as of this encounter
--- OUTSIDE RECORDS SUMMARY | 2023-09-30 15:26 | External Medical Summary | Summary of Care ---
Author Name Unknown Organization [facility] Address [address] [facility] [address] Phone [phone] Care Team Providers Care Care Team Assistant Name Role Phone Toby Paz MD Primary Care Provider +1- [phone] Reason for Visit * Reason Onset Date Comments FYI 09/07/2023 [facility] paper work Encounter Details Date Type Department Care Team (Late st Contact Info) Description 09/07/2023 Telephone [facility] [address] [place] [address] Toby Paz MD [address] [place] [address] FYI ([facility] paper work) Allergies Active Allergy Reactions Criticality Noted Date Comments Other Allergy (See Comments) Anaphylaxis High 06/21/2018 Bee stings- swelling documented as of this encounter (statuses as of 09/12/2023) Medications Medication Sig Dispensed Refills Start Date [...] as of this encounter (statuses as of 09/12/2023) Active Problems Problem Noted Date Diagnosed Date [...] ischemic heart disease 002 Overview: father had MA's in 40's Gastroesophageal reflux disease with esophagitis documented as of this encounter (statuses as of 09/12/2023) Resolved Problems Problem Noted Date Diagnosed Date Resolved Date History of alcohol abuse 05/22/2023 Alcohol dependence, uncomplicated 01/17/2023 05/22/2023 Avascular necrosis of bone of hip 05/10/2022 05/22/2023 Chronic alcohol abuse 06/17/20212023 Facial swelling 06/09/2017 08/07/2019 Urticaria 06/09/2017 08/07/2019 Intestinal obstruction 05/09/201203/02 CLASSICAL MIGRAINE WITHOU ME NTION OF INTRACTABLE MIGRAINE 11/29/2001 08/07/2019 Undiagnosed cardiac murmurs 11/29/2001 03/02/2017 Overview: Not [place] on 11/29/01 documented as of this encounter (statuses as of 09/12/2023) Immunizations Name Administration Dates Next Due HEP A - Hepatitis A (Adult > 18 yrs) 06/06/2020 Pneumococcal Conjugate Vacci ne, 20-valent ([id number]) 06/24/2022 Seasonal Influenza Virus Vac cine, Unspecified [...] Rodriguez OSA - 09/11/2023 9:13 AM EDT Araecli from [place] office will send urgent message to Dr. Hernandez to do paperwork otto. 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 Paperwork placed in provider's mail bin. It is in an envelope from [employer]. documented in this encounter Plan of Treatment Upcoming Encounters Date Type Department Care Team (Latest Contact Info) Description 09/18/2023 9:20 AM EDT Office Visit [facility] [address] [place] [address] Drea Raya MD [address] [place] [address] 10/09/2023 3:25 PM EDT Office Visit [facility], [facility] [address] [place] [address] Ed Causey MD [address] [facility] [place] [address] 11/21/2023 5:40 PM EDT Office Visit [facility] [address] [place] [phone] Toby Paz MD [address] [place] [address] 12/11/2023 1:04 PM EDT Hospital Encounter OR [facility], Operating Room, [facility] - 4th Floor [address] [place] [address] Ki Huang MD [address] [facility] [address] 12/11/2023 1:04 PM EDT - 12/11/2023 1:54 PM EDT Surgery OR [facility], Operating Room, [facility] - 4th Floor [address] [facility] [place] [address] Ki Huang MD [address] [place] [address] ESOPHAGOGASTRODUODENOSCOPY (EGD), FLEXIBLE, TRANSORAL, DIAGNOSTIC Scheduled Procedures Name Priority Associated Diagnoses Date/Ti ga ESOPHAGOGASTRODUODENOSCOPY ( EGD), FLEXIBLE, TRANSORAL, DIAGNOSTIC Cirrhosis [...] filedocumented as of this encounter Care Teams Care Team Assistant Relationship Specialty Start Date End Date Toby Paz MD [address] [place] [address] PCP - General Family Medicine 11/25/14 documented as of this encounter
--- OUTSIDE RECORDS SUMMARY | 2023-09-30 15:26 | External Medical Summary | Summary of Care ---
Author Name Unknown Organization [facility] Address [address] [facility] [address] Phone [phone] Care Team Providers Care Glass Fitter Name Role Phone Toby Paz MD Primary Care Provider +1- [phone] Reason for Visit * Reason Onset Date Comments FYI 09/07/2023 [facility] paper work Encounter Details Date Type Department Care Team (Late st Contact Info) Description 09/07/2023 Telephone [facility] [address] [place] [address] Toby Paz MD [address] [place] [address] FYI ([facility] paper work) Allergies Active Allergy Reactions [...] Undiagnosed cardiac murmurs 11/29/2001 03/02/2017 Overview: Not [place] on 11/29/01 documented as of this encounter (statuses as of 09/11/2023) Immunizations Name Administration Dates Next Due HEP A - Hepatitis A (Adult > 18 yrs) 06/06/2020 Pneumococcal Conjugate Vacci ne, 20-valent ([id number]) 06/24/2022 Seasonal Influenza Virus Vac cine, Unspecified [...] encounter Miscellaneous Notes * Telephone Encounter - Kasey Benavidez LPN [...] filled out/ She is the critical care registered nurse for the pt. Paperwork placed in provider's mail bin. It is in an envelope from [employer]. documented in this encounter Plan of Treatment Upcoming Encounters Date Type Department Care Team (Latest Contact Info) Description 10/09/2023 3:25 PM EDT Office Visit [facility], [facility] [address] [place] [address] Ed Causey MD [address] [facility] [place] [address] 11/21/2023 5:40 PM EDT Office Visit [facility] [address] [place] [phone] Toby Paz MD [address] [place] [address] 12/11/2023 1:04 PM EDT Hospital Encounter OR [facility], Operating Room, [facility] - 4th Floor [address] [place] [address] Ki Huang MD [address] [place] [address] 12/11/2023 1:04 PM EDT - 12/11/2023 1:54 PM EDT Surgery OR [facility], Operating Room, [facility] - 4th Floor [address] [place] [address] Ki Huang MD [address] [place] [address] ESOPHAGOGASTRODUODENOSCOPY (EGD), FLEXIBLE, TRANSORAL, DIAGNOSTIC Scheduled Procedures [...] filedocumented as of this encounter Care Teams Glass Fitter Relationship Specialty Start Date End Date Toby Paz MD [address] [place] [address] PCP - General Family Medicine 11/25/14 documented as of this encounter
--- OUTSIDE RECORDS SUMMARY | 2023-09-30 15:26 | External Medical Summary ---
Author Name Unknown Address Unknown Organization [id number]:[facility] [place] [address] [place] [address] Laboratory Report Ordering Provider Test Date Status EDD ROSAS 09/06/2023 11:22:46 Final Observation Date Value Abnormality Reference (Units ) Status MYCODE SPECIMEN-SST 09/06/2023 11:22:46 Freezing of extracted DNA, whole blood and/or serum. Final Performing Location [facility] - [address] [place] [address]
--- OUTSIDE RECORDS SUMMARY | 2023-09-30 15:26 | External Medical Summary | Summary of Care ---
Author Name Unknown Organization [facility] Address [address] [facility] [address] Phone [phone] Care Team Providers Care Protohistorian Name Role Phone Toby Paz MD Primary Care Provider +1- [phone] Reason for Visit * Reason Onset Date Comments FYI 09/07/2023 [facility] paper work Encounter Details Date Type Department Care Team (Late st Contact Info) Description 09/07/2023 Telephone [facility] [address] [place] [address] Toby Paz MD [address] [place] [address] FYI ([facility] paper work) Allergies Active Allergy Reactions [...] Undiagnosed cardiac murmurs 11/29/2001 03/02/2017 Overview: Not [place] on 11/29/01 documented as of this encounter (statuses as of 09/11/2023) Immunizations Name Administration Dates Next Due HEP A - Hepatitis A (Adult > 18 yrs) 06/06/2020 Pneumococcal Conjugate Vacci ne, 20-valent ([id number]) 06/24/2022 Seasonal Influenza Virus Vac cine, Unspecified [...] do paperwork otto. * Telephone Encounter - FacePankaj brown, MED ASSIST - 09/08/2023 9:27 AM EDT Placed paperwork on desk * Telephone Encounter - Kay Chino OSA - 09/07/2023 3:34 PM EDT Paperwork 09/07/23 Carmen Marr dropped off [place] paperwork from her employer, [employer] to be filled out/ She is the direct care specialist for the pt. Paperwork placed in provider's mail bin. It is in an envelope from [employer] [employer]. documented in this encounter Plan of Treatment Upcoming Encounters Date Type Department Care Team (Latest Contact Info) Description 10/09/2023 3:25 PM EDT Office Visit [facility], [address] [place] [address] Ed Causey MD [address] [place] [address] [place] [address] 11/21/2023 5:40 PM EDT Office Visit [facility] [address] [facility] [phone] Toby Paz MD [address] [facility] [address] 12/11/2023 1:04 PM EDT Hospital Encounter OR [facility], Operating Room, [facility] - 4th Floor [address] [facility] [place] [address] Ki Huang MD [address] [place] [address] 12/11/2023 1:04 PM EDT - 12/11/2023 1:54 PM EDT Surgery OR [facility], Operating Room, [facility] - 4th Floor [address] [facility] [place] [address] Ki Huang MD [address] [place] [address] ESOPHAGOGASTRODUODENOSCOPY (EGD), FLEXIBLE, TRANSORAL, DIAGNOSTIC Scheduled Procedures [...] filedocumented as of this encounter Care Teams Protohistorian Relationship Specialty Start Date End Date Toby Paz MD [address] [place] [address] PCP - General Family Medicine 11/25/14 documented as of this encounter
--- OUTSIDE RECORDS SUMMARY | 2023-09-30 15:27 | External Medical Summary ---
Author Name Unknown Address Unknown Organization [id number]:[facility] [place] [address] [facility] [place] [address] Laboratory Report Ordering Provider Test Date Status TERESITA MORRISON 08/10/2023 11:09:53 Final Observation Date Value Abnormality Reference (Units ) Status SYNC LEUKOCYTES IN BLOOD BY AUTOMATED COUNT 08/10/2023 11:09:53 6.33 4.00-10.80 (K/uL) Final Segs 08/10/2023 11:09:53 64.1 40.0-75.0 (%) Final Lymphs % 08/10/2023 11:09:53 17.7 Below low normal 18.0-42.0 (%) Final Monos 08/10/2023 11:09:53 9.2 1.0-11.0 (%) Final Eosinophils 08/10/2023 11:09:53 7.9 Above high normal 0.0-6.0 (%) Final Basos 08/10/2023 11:09:53 0.9 0.0-2.0 (%) Final Immature Granulocyte, Percent 08/10/2023 11:09:53 0.2 0.0-2.0 (%) Final Absolute Segs 08/10/2023 11:09:53 4.06 1.80-7.70 (K/uL) Final Lymphs, absolute 08/10/2023 11:09:53 1.12 1.00-4.80 (K/ul) Final Monos, Abs 08/10/2023 11:09:53 0.58 0.00-1.10 (K/uL) Final Eos, Abs 08/10/2023 11:09:53 0.50 0.00-0.70 (K/uL) Final Basos, Abs 08/10/2023 11:09:53 0.06 0.00-0.20 (K/uL) Final Immature Granulocytes, Number 08/10/2023 11:09:53 0.01 0.00-0.20 (K/uL) Final Performing Location [facility] [place] - [address] [facility] [address]
--- OUTSIDE RECORDS SUMMARY | 2023-09-30 15:27 | External Medical Summary ---
Author Name Unknown Address Unknown Organization K01:[facility] - [address] [place] [address] Laboratory Report Ordering Provider Test Date Status LIZA LAROSE 09/06/2023 11:22:46 Final Observation Date Value Abnormality Reference (Units ) Status Ammonia 09/06/2023 11:22:46 106 Above upper panic limits 11-35 (umol/L) Final Hemolysis may interfere with result. Performing Location [facility] - [address] [place] [address]
--- OUTSIDE RECORDS SUMMARY | 2023-09-30 15:27 | External Medical Summary ---
Author Name Unknown Address Unknown Organization [id number]:[facility] [place] - [address] [place] [address] Laboratory Report Ordering Provider Test Date Status EDD ROSAS 09/06/2023 11:22:46 Final Observation Date Value Abnormality Reference (Units ) Status MYCODE SPECIMEN-SST 09/06/2023 11:22:46 Freezing of extracted DNA, whole blood and/or serum. Final Performing Location [facility] - [address] [place] [address]
--- OUTSIDE RECORDS SUMMARY | 2023-09-30 15:27 | External Medical Summary | Summary of Care ---
Author Name Unknown Organization [facility] Address [address] [facility] [place] [address] Phone [phone] Care Team Providers Care Reporting Manager Name Role Phone Toby Paz MD Primary Care Provider +1- [phone] Encounter Details Date Type Department Care Team (Late st Contact Info) Description 08/24/2023 Telephone OR [facility], Operating Room [facility] [address] [place] [address] Lopez Shi MD [address] [place] [address] Allergies Active Allergy Reactions Criticality Noted Date Comments Other Allergy (See Comments) Anaphylaxis High 06/21/2018 Bee stings- swelling documented as of this encounter (statuses as of 08/24/2023) Medications Medication Sig Dispensed Refills Start Date [...] as of this encounter (statuses as of 08/24/2023) Active Problems Problem Noted Date Diagnosed Date [...] as of this encounter (statuses as of 08/24/2023) Resolved Problems Problem Noted Date Diagnosed Date Resolved Date History of alcohol abuse 05/22/2023 Alcohol dependence, uncomplicated 01/17/2023 05/22/2023 Avascular necrosis of bone of hip 05/10/2022 05/22/2023 Chronic alcohol abuse 06/17/20212023 Facial swelling 06/09/2017 08/07/2019 Urticaria 06/09/2017 08/07/2019 Intestinal obstruction 05/09/201203/02 CLASSICAL MIGRAINE WITHOU ME NTION OF INTRACTABLE MIGRAINE 11/29/2001 08/07/2019 Undiagnosed cardiac murmurs 11/29/2001 03/02/2017 Overview: Not [place] on 11/29/01 documented as of this encounter (statuses as of 08/24/2023) Immunizations Name Administration Dates Next Due HEP A - Hepatitis A (Adult > 18 yrs) 06/06/2020 Pneumococcal Conjugate Vacci ne, 20-valent ([id number]) 06/24/2022 Seasonal Influenza Virus Vac cine, Unspecified [...] encounter Miscellaneous Notes * Telephone Encounter - Marilu Swift RN - 08/24/2023 7:40 AM EDT This patient is scheduled for EGD on 09-01-23 and as per anesthesia Dr Lackey patient has severe liver disease and is currently in the process of being listed for liver transplant - he is not a candidate for [facility]. Call placed to patient and message left on for patient to return call /# given documented in this encounter Plan of Treatment Upcoming Encounters Date Type Department Care Team (Latest Contact Info) Description 08/31/2023 7:00 AM EDT Appointment [facility] [address] [address] 08/31/2023 7:45 AM EDT Appointment [facility] [address] [address] 08/31/2023 2:30 PM EDT Hospital Encounter OR [facility], OPERATING ROOM C, [facility] [address] [facility] [place] [address] [facility], In And Out Surgery [address] [place] [facility] [place] [address] 08/31/2023 2:30 PM EDT - 08/31/2023 4:40 PM EDT Surgery OR C, OPERATING ROOM [facility], [facility] [address] [facility] [place] [address] [facility], In And Out Surgery [address] [place] [address] ANESTHESIA FOR NON-INVASIVE IMAGING (MRI OR CT) 09/01/2023 1:30 PM EDT Hospital Encounter [facility]O [facility], Endoscopy Room [facility] [address] [place] [address] Lopez Shi MD [address] [place] [address] 09/01/2023 1:30 PM EDT - 09/01/2023 2:00 PM EDT Surgery ENDO [facility], Endoscopy Room [facility] [address] [place] [phone] Lopez Shi MD [address] [place] [address] ESOPHAGOGASTRODUODENOSCOPY (EGD), FLEXIBLE, TRANSORAL, DIAGNOSTIC 09/11/2023 3:30 PM EDT Office Visit [facility] Center, [facility] [address] [place] [address] Sita Molina PA-C [address] [place] [address] 11/21/2023 5:40 PM EDT Office Visit [address], [place] [phone] Toby Paz MD [address] [place], [place] [phone] Scheduled Procedures Name Priority Associated Diagnoses Date/Ti me ANESTHESIA FOR NON-INVASIVE IMAGING (MRI OR CT) Pain in left hip Liver lesion 08/31/2023 2:30 PM EDT ESOPHAGOGASTRODUODENOSCOPY ( EGD), FLEXIBLE, TRANSORAL, DIAGNOSTIC Cirrhosis [...] filedocumented as of this encounter Care Teams Reporting Manager Relationship Specialty Start Date End Date Toby Paz MD [address] [place], [place] [phone] PCP - General Family Medicine 11/25/14 documented as of this encounter
--- OUTSIDE RECORDS SUMMARY | 2023-09-30 15:27 | External Medical Summary ---
Author Name Unknown Address Unknown Organization K01:LABORATORY [facility] [place] - [address] [facility] [place] [address] Laboratory Report Ordering Provider Test Date Status LIZA LAROSE 09/06/2023 11:22:46 Final Observation Date Value Abnormality Reference (Units ) Status BUN 09/06/2023 11:22:46 11 6-20 (mg/dL) Final Creatinine 09/06/2023 11:22:46 0.9 0.6-1.2 (mg/dL) Final Glomerular filtration rate/1.73 sq M.predicted [Volume Rate/Area] in Serum, Plasma or Blood by Creatinine-based formula (CKD-EPI) 09/06/2023 11:22:46 >90 >=60 (mL/min) Final eGFR is calculated based on the CKD-EPI 2020 equation Sodium 09/06/2023 11:22:46 142 135-146 (m mol/L) Final Potassium 09/06/2023 11:22:46 4.3 3.5-5.1 (m mol/L) Final Cl 09/06/2023 11:22:46 110 Above high normal 98 -107 (mmol/L) Final CO2 09/06/2023 11:22:46 20 Below low normal 22- 32 (mmol/L) Final Anion gap 09/06/2023 11:22:46 12 7-15 (mmol /L) Final Glucose 09/06/2023 11:22:46 92 70-120 (mg /dL) Final Albumin 09/06/2023 11:22:46 3.5 Below low normal 3.8 -5.0 (g/dL) Final AST (Aspartate aminotransferase) 09/06/2023 11:22:46 51 Above high normal 10-50 (U/L) Final Alk Phos 09/06/2023 11:22:46 173 Above high normal 35 -130 (U/L) Final Bilirubin, Total 09/06/2023 11:22:46 1.4 Above high no rmal <=1.2 (mg/dL) Final Calcium 09/06/2023 11:22:46 8.9 8.4-10.2 ( mg/dL) Final Protein 09/06/2023 11:22:46 5.9 Below low normal 6.0 -8.3 (g/dL) Final ALT (Alanine aminotransferase) 09/06/2023 11:22:46 37 10-50 (U/L) Ryder joyce Performing Location LABORATORY [facility] [place] - [address] [facility] [address]
--- OUTSIDE RECORDS SUMMARY | 2023-09-30 15:27 | External Medical Summary ---
Author Name Unknown Address Unknown Organization K01:[facility] [place] - [address] [facility] [place] [address] Laboratory Report Ordering Provider Test Date Status TERESITA MORRISON 09/06/2023 11:22:46 Final Observation Date Value Abnormality Reference (Units ) Status SYNC LEUKOCYTES IN BLOOD BY AUTOMATED COUNT 09/06/2023 11:22:46 5.61 4.00-10.80 (K/uL) Final Segs 09/06/2023 11:22:46 61.2 40.0-75.0 (%) Final Lymphs % 09/06/2023 11:22:46 17.6 Below low normal 18.0-42.0 (%) Final Monos 09/06/2023 11:22:46 11.9 Above high normal 1.0-11.0 (%) Final Eosinophils 09/06/2023 11:22:46 8.2 Above high normal 0.0-6.0 (%) Final Basos 09/06/2023 11:22:46 0.9 0.0-2.0 (%) Final Immature Granulocyte, Percent 09/06/2023 11:22:46 0.2 0.0-2.0 (%) Final Absolute Segs 09/06/2023 11:22:46 3.43 1.80-7.70 (K/uL) Final Lymphs, absolute 09/06/2023 11:22:46 0.99 Below low normal 1.00-4.80 (K/ul) Final Monos, Abs 09/06/2023 11:22:46 0.67 0.00-1.10 (K/uL) Final Eos, Abs 09/06/2023 11:22:46 0.46 0.00-0.70 (K/uL) Final Basos, Abs 09/06/2023 11:22:46 0.05 0.00-0.20 (K/uL) Final Immature Granulocytes, Number 09/06/2023 11:22:46 0.01 0.00-0.20 (K/uL) Final Performing Location LABORATORY [facility] [place] - [facility] [place] [address]
--- OUTSIDE RECORDS SUMMARY | 2023-09-30 15:27 | External Medical Summary | Summary of Care ---
Author Name Unknown Organization [facility] Address [address] [facility] [place] [place] [address] Phone [phone] Care Team Providers Care Two [employer] Radio Installer Name Role Phone Toby Paz MD Primary Care Provider [phone] Reason for Visit * Reason Comments Physical-Exam Pt here today for ph ysical and then the results need to be sent to [facility] Encounter Details Date Type Department Care Team (Latest Contact Info) Description 08/17/2023 10:40 AM EDT Office Visit [facility] [address] [place] [address] Rao Ochoa MD [address] [place] [address] Preoperative general physical examination*; Alcoholic cirrhosis of liver without ascites (HCC); Hepatic encephalopathy (HCC); Hypoproliferative anemia (HCC); Thrombocytopenia (HCC); Anemia in other chronic diseases classified elsewhere; Other intervertebral disc displacement, lumbosacral region; Iron deficiency anemia due to chronic blood loss; HTN, goal below 130/80 Allergies Active Allergy Reactions Criticality Noted Date Comments Other Allergy (See Comments) Anaphylaxis High 06/21/2018 Bee stings- swelling documented as of this encounter (statuses as of 08/17/2023) Medications Medication Sig Dispensed Refills Start Date [...] 1 Tablet by mouth in the morning. 0 Active Gabapentin 300 MG Oral Capsule (Neurontin) [...] the evening and 1 Drop before bedtime. 0 07/10/2023 Active Ofloxacin 0.3 % Ophthalmic Solution (Ocuflox) Instill 1 Drop into the right eye in the morning and 1 Drop at noon and 1 Drop in the evening and 1 Drop before bedtime. 0 07/10/2023 Active traMADol HCl 50 MG Oral Tablet (Ultram)Indicatio ns:Avascular necrosis of bone of left hip (HCC) Take 1 Tablet by mouth every 8 hours as needed for Pain, Severe. 30 Tablet 0 08/16/2023 Active LORazepam 0.5 MG Oral Tablet (Ativan) Take 1 Tablet by mouth every 6 hours as needed. 0 05/11/2023 Active Spironolactone 25 MG Oral Tablet (Aldactone) Take 1 Tablet by mouth in the morning. 0 07/07/2023 Active EpiPen 2-Dave 0.3 MG/0.3ML Injection Solution Auto-injector For a severe reaction: Place orange end against the outer thigh, press firmly, hold in place for 10 seconds and go to the Emergency room. 2 Each 1 08/17/2023 Active EpiPen 2-Dave 0.3 MG/0.3ML Injection Solution Auto-injector For a severe reaction: Place orange end against the outer thigh, press firmly, hold in place for 10 seconds and go to the Emergency room. 2 Each 1 07/20/2020 4 Discontinue d(Refill) Hospital, Clinic, or Other Facility Administered Medication Ordered Dose Route Frequency Start Date End Date Status albuterol sulfate (PROVENTIL) (2.5 MG/3ML) 0.083% inhalation solution 2.5 mgIndications:SOB (shortness of breath) 2.5 mg NEBULIZER Q4H PRN 05/10/2018 Act guzman documented as of this encounter (statuses as of 08/17/2023) Active Problems Problem Noted Date Diagnosed Date Hepatic encephalopathy 07/31/2023 S/P hip replacement, left 05/22/2023 Esophageal varices without bleeding 05/22/2023 Avascular necrosis of bone of left hip 4 Hypoproliferative anemia 05/10/2023 DDD (degenerative disc disease), [...] as of this encounter (statuses as of 08/17/2023) Resolved Problems Problem Noted Date Diagnosed Date Resolved Date History of alcohol abuse 05/22/2023 Alcohol dependence, uncomplicated 01/17/2023 05/22/2023 Avascular necrosis of bone of hip 05/10/2022 05/22/2023 Chronic alcohol abuse 06/17/20212023 Facial swelling 06/09/2017 08/07/2019 Urticaria 06/09/2017 08/07/2019 Intestinal obstruction 05/09/201203/02 CLASSICAL MIGRAINE WITHOU ME NTION OF INTRACTABLE MIGRAINE 11/29/2001 08/07/2019 Undiagnosed cardiac murmurs 11/29/2001 03/02/2017 Overview: Not [place] on 11/29/01 documented as of this encounter (statuses as of 08/17/2023) Immunizations Name Administration Dates Next Due HEP A - Hepatitis A (Adult > 18 yrs) 06/06/2020 Pneumococcal Conjugate Vacci ne, 20-valent ([id number]) 06/24/2022 Seasonal Influenza Virus Vac cine, Unspecified [...] Reading Time Taken Comments Blood Pressure 98/58 08/17/2023 10:45 AM EDT Pulse 64 08/17/2023 10:45 AM EDT Temperature 37.1 C (98.7 F) 08/17/2023 10:45 AM E DT Respiratory Rate 18 08/17/2023 10:45 AM EDT Oxygen Saturation 98% 08/17/2023 10:45 AM EDT Inhaled Oxygen Concentration - - Weight 88.7 kg (195 lb 9.6 oz) 08/17/2023 10:45 AM EDT Height - - Body Mass Index 28.89 05/10/2023 5:59 PM EST documented in this encounter Functional Status Functional Status Response Date of Assess ment Does this person have seriou s difficulty walking or climbing stairs? Yes 08/23/2021 documented as of this encounter Patient Instructions * Patient Instructions* Rao Ochoa MD - 08/17/2023 10:58 AM EDT Magnesium citrate or magnesium oxide 250-400 mg daily documented in this encounter Progress Notes * Rao Ochoa MD - 08/17/2023 11:09 AM EDT Subjective: Mauro Liu is a 58 year old male. Presents for medical clearance for general anesthesia due to MRI liver and lumbar spine tests . Requested by hepatology and by spinal surgery at [facility] Pt has known liver cirrhosis, hepatic encephalopathy Taking all his meds BP low side but stable , denies CP, SOB, weakness, dizziness, syncope, palpitation , leg swelling, abd distension Chronic lower back pain, lumbar DDD Anemia, multifactorial , very low Plt count due to liver cirrhosis Taking iron pill Low Mg , poor diet , restriction on diet F/u with nutrition PHM: Patient Active Problem List Diagnosis Code Family [...] Z96.642 Esophageal varices without bleeding (HCC) I85.00 Hepatic encephalopathy (HCC) K76.82 Current Outpatient Medications Medication Sig Dispense Refill [...] by mouth at bedtime. 180 Tablet 3 prednisoLONE Acetate 1 % Ophthalmic Suspension (Pred Forte) Instill 1 Drop into the right eye in the morning and 1 Drop at noon and 1 Drop in the evening and 1 Drop before bedtime. Ofloxacin 0.3 % Ophthalmic Solution (Ocuflox) Instill 1 Drop into the right eye in the morning and 1 Drop at noon and 1 Drop in the evening and 1 Drop before bedtime. traMADol HCl 50 MG Oral Tablet (Ultram) [...] affected area. (Patient not taking: Reported on 08/17/2023) 60 g 5 Current Facility-Administered Medications Medication Dose Route Frequency [...] performed by Lopez Shi MD at [facility] COLONOSCOPY, DIAGNOSTIC (RECTUM) 05/18/2018 adenomatous polyps, diverticulosis, repeat 1yr/COLONOSCOPY FLEXIBLE PROXIMAL DIAGNOSTIC performed by Lopez Shi MD at [facility] COLONOSCOPY, DIAGNOSTIC (RECTUM) 05/30/2019 adenomatous polyps, diverticulosis, repeat 3 yrs / COLONOSCOPY FLEXIBLE PROXIMAL DIAGNOSTIC performed by Lopez Shi MD at [facility] COLONOSCOPY, DIAGNOSTIC (RECTUM) 06/30/2021 1-4mm in rectum, otherwise normal / biopsies normal / 5 year recall / COLONOSCOPY FLEXIBLE PROXIMALDIAGNOSTIC performed by Jena Camargo MD at [facility] EGD, FLEXIBLE, DIAGNOSTIC 05/05/2014 normal bx/ESOPHAGOGASTRODUODENOSCOPY (EGD), FLEXIBLE, TRANSORAL, DIAGNOSTIC performed by Ki Huang MD at [facility] EGD, FLEXIBLE, DIAGNOSTIC 04/11/2016 Schatzki ring, hiatal hernia, gastritis/ESOPHAGOGASTRODUODENOSCOPY (EGD), FLEXIBLE, TRANSORAL, DIAGNOSTIC performed by Ki Huang MD at [facility] EGD, FLEXIBLE, DIAGNOSTIC 01/24/2018 w/ [facility] EGD, FLEXIBLE, DIAGNOSTIC 07/17/2018 normal biopsies/ESOPHAGOGASTRODUODENOSCOPY (EGD), FLEXIBLE, TRANSORAL, DIAGNOSTIC performed by Lopez Shi MD at [facility] EGD, FLEXIBLE, DIAGNOSTIC 07/07/2020 sm hiatal hernia / ESOPHAGOGASTRODUODENOSCOPY (EGD), FLEXIBLE, TRANSORAL, DIAGNOSTIC performed by Lopez Shi MD at [facility] EGD, FLEXIBLE, DIAGNOSTIC 09/03/2021 esophageal varices, repeat 1 yr / ESOPHAGOGASTRODUODENOSCOPY (EGD), FLEXIBLE, TRANSORAL, DIAGNOSTICperformed by Alen Garcia DO at [facility] EGD, FLEXIBLE, DIAGNOSTIC 07/06/2022 Portal hypertensive gastropathy, eso varices, mild-mod inflammation on bx / ESOPHAGOGASTRODUODENOSCOPY (EGD), FLEXIBLE, TRANSORAL, DIAGNOSTIC performed by Lopez Shi MD at [facility] EGD, W/ENDOSCOPIC US 06/26/2018 retained food, repeat study/ESOPHAGOGASTRODUODENOSCOPY (EGD), FLEXIBLE, TRANSORAL, ENDOSCOPIC ULTRASOUND performed by Lopez Shi MD at [facility] EGD, W/ENDOSCOPIC US 07/17/2018 sludge gallbladder/ESOPHAGOGASTRODUODENOSCOPY (EGD), FLEXIBLE, TRANSORAL, ENDOSCOPIC ULTRASOUND performed by Lopez Shi MD at [facility] IR BIOPSY 02/14/2022 LAPAROSCOPY; CHOLECYSTECTOMY IA ARTHRP ACETBLR/PROX FEM PROSTC AGRFT/ALGRFT Left 04/08/2023 REDUCTION OF 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 04/26/2012 Exploratory laparotomy with extensive lysis of adhesions and repair of small bowel serosal REMOVAL OF RUPTURED APPENDIX 1977 Appendectomy, Rupt Appendx+Abscess Review of patient's allergies indicates: Allergen Reactions Other Allergy (See Comments) Anaphylaxis Bee stings- swelling Family History Problem Relation Age of Onset Neurological Disorder Mother Park[place] Heart Disorder Father [place] in 40's Stroke Father Heart failure Father Dementia Father No Known Problems Brother Family Status Relation Status Mo Fa Bro Alive Social History Tobacco Use Smoking status: Former Current packs/day: 0.00 Average packs/day: 0.1 packs/day for 20.0 years (2.0 ttl pk-yrs) Types: Cigarettes Start date: 05/10/1995 Quit date: 05/10/2015 Years since quittin.2 Passive exposure: Never Smokeless tobacco: Never Tobacco comments: fiance smokes Substance Use Topics Alcohol use: Not Currently Comment: 12 pack on the weekends, No ETOH since December 2021 Vaping/E-Cigarette Use Vaping/E-Cigarette Use Never User Vaping/E-Cigarette Substances Vaping/E-Cigarette Devices Review of Systems Constitutional: Positive for fatigue. Negative for activity change, appetite change, chills, diaphoresis, fever and unexpected weight change. Eyes: Negative for visual disturbance. Respiratory: Negative for cough, chest tightness, shortness of breath and wheezing. Cardiovascular: Negative for chest pain, palpitations and leg swelling. Gastrointestinal: Negative for abdominal distention, abdominal pain, nausea and vomiting. Endocrine: Negative. Musculoskeletal: Positive for arthralgias and back pain. Allergic/Immunologic: Positive for immunocompromised state. Neurological: Positive for numbness. Negative for dizziness, tremors, seizures, syncope, facial asymmetry, speech difficulty, weakness, light-headedness and headaches. Psychiatric/Behavioral: Positive for dysphoric mood and sleep disturbance. Negative for agitation and behavioral problems. The patient is nervous/anxious. Objective: BP 98/58 | Pulse 64 | Temp 37.1 C (98.7 F) (Infrared ) | Resp 18 | Wt 88.7 kg (195 lb 9.6 oz) |SpO2 98% | BMI 28.89 kg/m | BSA 2.08 m Physical Exam Constitutional: General: He is not in acute distress. Appearance: Normal appearance. He is not ill-appearing, toxic-appearing or diaphoretic. HENT: Head: Normocephalic and atraumatic. Nose: Nose normal. Eyes: Extraocular Movements: Extraocular movements intact. Cardiovascular: Rate and Rhythm: Normal rate and regular rhythm. Pulses: Normal pulses. Heart sounds: Murmur heard. Pulmonary: Effort: Pulmonary effort is normal. No respiratory distress. Breath sounds: No stridor. No wheezing, rhonchi or rales. Chest: Chest wall: No tenderness. Abdominal: General: There is no distension. Tenderness: There is no abdominal tenderness. Musculoskeletal: General: Tenderness present. Right lower leg: No edema. Left lower leg: No edema. Neurological: General: No focal deficit present. Mental Status: He is alert and oriented to person, place, and time. Cranial Nerves: No cranial nerve deficit. Psychiatric: Behavior: Behavior normal. ASSESSMENT: Diagnosis for procedure: MRI tests , general anesthesia Preoperative Examination PLAN: Patient is medically cleared. (Z01.818) Preoperative general physical examination (primary encounter diagnosis) Plan: cleared for MRI (K70.30) Alcoholic cirrhosis of liver without ascites (HCC) Plan: hepatology Meds (K76.82) Hepatic encephalopathy (HCC) (D61.9) Hypoproliferative anemia (HCC) (D69.6) Thrombocytopenia (HCC) (D63.8) Anemia in other chronic diseases classified elsewhere iron (M51.27) Other intervertebral disc displacement, lumbosacral region Plan: f/u with spinal surgery MRI (D50.0) Iron deficiency anemia due to chronic blood loss Plan: iron (I10) HTN, goal below 130/80 Plan: stable Rao Ochoa MD documented in this encounter Nursing Notes * Dayana Menjivar LPN - 08/17/2023 10:42 AM EDT Chief Complaint Patient presents with Physical-Exam Pt here today for physical and then the results need to be sent to [facility] documented in this encounter Plan of Treatment Upcoming Encounters Date Type Department Care Team (Latest Contact Info) Description 08/31/2023 7:00 AM EDT [facility] [address] [facility] [address] 08/31/2023 7:45 AM EDT Appointment MRI, [facility] [address] [facility] [place] [address] 08/31/2023 3:20 PM EDT Hospital Encounter [place] [facility], OPERATING ROOM [facility] [address] [facility] [address] c, In And Out Surgery [address] [facility] [place] [address] 08/31/2023 3:20 PM EDT - 08/31/2023 5:55 PM EDT Surgery [place] [facility], OPERATING ROOM [facility] [address] [facility] [address] c, In And Out Surgery [address] [facility] [address] ANESTHESIA FOR NON-INVASIVE IMAGING (MRI OR CT) 09/01/2023 1:30 PM EDT Hospital Encounter ENDO [facility], Endoscopy Room [facility] [address] [place] [id number] Lopez Shi MD [address] [place] [address] 09/01/2023 1:30 PM EDT - 09/01/2023 2:00 PM EDT Surgery [facility]O [facility], Endoscopy Room [facility] [address] [place] [id number] Lopez Shi MD [address] [place] [address] ESOPHAGOGASTRODUODENOSCOPY (EGD), FLEXIBLE, TRANSORAL, DIAGNOSTIC 09/11/2023 3:30 PM EDT Office Visit [facility] [address] [place] [address] Sita Molina PA-C [address] [place] [address] 11/21/2023 5:40 PM EDT Office Visit [facility] [address] [place] [facility] [place] [id number] Toby Paz MD [address], [place] [id number] Scheduled Procedures Name Priority Associated Diagnoses Date/Ti me ANESTHESIA FOR NON-INVASIVE IMAGING (MRI OR CT) Pain in left hip Liver lesion 08/31/2023 3:20 PM EDT ESOPHAGOGASTRODUODENOSCOPY ( EGD), FLEXIBLE, TRANSORAL, [...] as of this encounter Visit Diagnoses Diagnosis Preoperative general physical examination- Primary Other specified pre-operative examination Alcoholic cirrhosis of liver without ascites (HCC) Alcoholic cirrhosis of liver Hepatic encephalopathy (HCC) Hepatic encephalopathy Hypoproliferative anemia (HCC) Aplastic anemia, unspecified Thrombocytopenia (HCC) Thrombocytopenia, unspecified Anemia in other chronic diseases classified elsewhere Other intervertebral disc displacement, lumbosacral region Iron deficiency anemia due to chronic blood loss Iron deficiency anemia secondary to blood loss (chronic) HTN, goal below 130/80 Unspecified essential hypertension Pain in left hip Pain in joint, pelvic region and thigh Liver lesion Other specified disorders of liver Cirrhosis (HCC) Cirrhosis of liver without mention of alcohol documented in this encounter Care Teams Two Way Radio Installer Relationship Specialty Start Date End Date Toby Paz MD [address] [place] [address] PCP - General Family Medicine 11/25/14 documented as of this encounter"
--- OUTSIDE RECORDS SUMMARY | 2023-09-30 15:27 | External Medical Summary | Summary of Care ---
Author Name Unknown Organization [facility] Address [address] [place] [address] Phone [phone] Care Team Providers Care Communications Systems Engineer Name Role Phone Toby Paz MD Primary Care Provider [phone] Reason for Referral * Precert (Within 10 days (routine)) - Pending Review Specialty Diagnoses / Procedures Referred By Pj hernandez Referred To Contact Radiology Diagnoses Liver lesion Procedures MRI LIVER W WO CONTRAST Keyanna Gordon CRNP [address] [place] [address] Referral ID Status Reason Start Date Expiration Date V isits Requested Visits Authorized [id number] Pending Review 08/07/2023 999 999 Reason for Visit * Auth/Cert Specialty Diagnoses / Procedures Referred By Pj hernandez Referred To Contact Diagnoses Pain in left hip Liver lesion Pain in left hip [M25.552] Liver lesion [K76.9] Procedures ANESTHESIA FOR CAT OR MRI SCAN ANESTHESIA FOR NON-INVASIVE IMAGING (MRI OR CT) [facility] [address] [place] [address] Phone: [phone] [facility] [address] [place] [address] Referral ID Status Reason Start Date Expiration Date Visits Re quested Visits Authorized [id number] Encounter Details Date Type Department Care Team (Latest Contact Info) Description 08/31/2023 9:35 AM EDT - 08/31/2023 2:01 PM EDT Hospital Encounter [facility], OPERATING ROOM [facility] [address] [place] [address] [facility] [place] [facility] [address] [place] [address] Discharge Disposition: Home - Self Care Allergies Active Allergy Reactions Criticality Noted Date Comments Other Allergy (See Comments) Anaphylaxis High 06/21/2018 Bee stings- swelling documented as of this encounter (statuses as of 09/01/2023) Medications Medication Sig Dispensed Refills Start Date [...] at bedtime. 180 Tablet 3 07/07/2023 Active Ofloxacin 0.3 % Ophthalmic Solution (Ocuflox) [...] by mouth in the morning. 07/07/2023 Active documented as of this encounter (statuses as of 09/01/2023) Active Problems Problem Noted Date Diagnosed Date [...] as of this encounter (statuses as of 09/01/2023) Resolved Problems Problem Noted Date Diagnosed Date Resolved Date History of alcohol abuse 05/22/2023 Alcohol dependence, uncomplicated 01/17/2023 05/22/2023 Avascular necrosis of bone of hip 05/10/2022 05/22/2023 Chronic alcohol abuse 06/17/20212023 Facial swelling 06/09/2017 08/07/2019 Urticaria 06/09/2017 08/07/2019 Intestinal obstruction 05/09/201203/02 CLASSICAL MIGRAINE WITHOU ME NTION OF INTRACTABLE MIGRAINE 11/29/2001 08/07/2019 Undiagnosed cardiac murmurs 11/29/2001 03/02/2017 Overview: Not [place] on 11/29/01 documented as of this encounter (statuses as of 09/01/2023) Immunizations Name Administration Dates Next Due HEP A - Hepatitis A (Adult > 18 yrs) 06/06/2020 Pneumococcal Conjugate Vacci ne, 20-valent ([id number]) 06/24/2022 Seasonal Influenza Virus Vac cine, Unspecified [...] Sign Reading Time Taken Comments Blood Pressure 116/76 08/31/2023 1:45 PM EDT Pulse 73 08/31/2023 1:45 PM EDT Temperature 36.2 C (97.2 F) 08/31/2023 1:15 PM ED T Respiratory Rate 16 08/31/2023 1:45 PM EDT Oxygen Saturation 93% 08/31/2023 1:45 PM EDT Inhaled Oxygen Concentration - - Weight - - Height - - Body Mass Index - - documented in this encounter Functional Status Functional Status Response Date of Assess ment Does this person have seriou s difficulty walking or climbing stairs? Yes 08/23/2021 documented as of this encounter Nursing Notes * Yomaira Alexandra RN - 08/31/2023 1:06 PM EDT Dual Licensed Skin Assessment completed by Quirino Alexandra RN and Walter Urbano . The patient is/has a N/A Skin Breakdown (includes non blanchable erythema): No * Laurie Urbano RN - 08/31/2023 10:25 AM EDT Dual Licensed Skin Assessment completed by sIabelle Vargas RN and Emerita So RN. The patient is/has a N/A Skin Breakdown (includes non blanchable erythema): No * Quynh Sanchez LPN - 08/21/2023 4:38 PM EDT NO ANESTHESIA EVAL REQUESTED PER CASE DOCUMENTATION. PREOP PATIENT INFORMATION AND EDUCATION: Pre-operative chart review completed-instructions provided based on current medication list in [facility]. MEDICATION INSTRUCTIONS: The day of surgery/procedure, you may TAKE the following medications with a sip of water up to 2 hours prior to your arrival time: LORAZEPAM IF NEEDED SPIRONOLACTONE TRAMADOL IF NEEDED FLUOXETINE ATORVASTATIN GABAPENTIN LACTULOSE PANTOPRAZOLE RIFAXIMIN STOP taking the following medications the noted number of days prior to surgery/procedure unless otherwise specified by your surgeon: Please follow surgeon's instructions regarding use of Aspirin, Coumadin, Plavix, Eliquis, and any other blood thinner including NSAIDs (non-steroidal anti- inflammatory drugs, eg, Advil, Ibuprofen, Motrin, Aleve, Naproxen); if you have any questions regarding your anticoagulation therapy please contact your surgeon's clinic. Please verify any proposed stoppage of your anticoagulation therapy with the agent's prescribing provider. 10 days prior to surgery/procedure Stop all Herbal supplements, Green Tea, Turmeric, Melatonin, CBD, THC, etc. Stop all Vitamins (including Vitamin E) 24 hours prior to surgery/procedure DO NOT consume any alcohol. DO NOT use medical marijuana. DO NOT smoke or use tobacco products of any kind after midnight prior to surgery. *Using any of these products may increase your risks of procedural complications. IF IT IS LESS THAN RECOMMENDED STOPPAGE TIME PLEASE STOP AT TIME OF NOTIFICATION. FASTING RECOMMENDATIONS: To reduce risk, it is important for all elective surgery patients to follow the specific fasting guidelines listed below. If you have received more stringent guidelines, please follow the MOST RESTRICTIVE guidelines that you have been provided. DO NOT EAT after midnight on the night prior to your surgery date. You are allowed to drink clear liquids up to two hours prior to arrival time to the hospital or surgery center. Examples of clear liquids include water, clear fruit juice without pulp, clear carbonated beverages, clear tea, and black coffee. Any drinks given by your surgical service take as directed. /pediatric patients who currently drink breast milk, formula, and non-human milk must not eat after midnight. These patients are allowed to drink only the liquids listed below up to two hours prior to arrival time to the hospital or surgery center: Ingested Material Minimum Fasting Time Clear liquid After midnight up to 2 hours prior to arrival time Breast milk Up to 4 hours prior to arrival time Infant formula Up to 6 hours prior to arrival time Non-human milk Up to 6 hours prior to arrival time THE DAY BEFORE YOUR SURGERY: -Drink plenty of fluid the day before your surgery. Contact your surgeon's office if you develop any of the following within 2 weeks of surgery: A cold Infection Fever Shingles Chicken pox or exposure to chicken pox Open areas such as scrapes, cuts, chaves or other skin conditions Rashes GENERAL INSTRUCTIONS FOR PREPARING FOR SURGERY: BATHING INSTRUCTIONS: Bathe the evening prior to and the morning of surgery/procedure. Cleanse your body using ONLY anti-bacterial soap (eg, Dial, Safeguard) or any specific soap/cleansers and instructions provided by your surgeon (eg, Chlorhexidine). -You should brush your teeth the morning of surgery. Do NOT apply any lotions, powders, sprays, creams, oils, make-up, or deodorants after bathing. No hairspray, or nail mexican on fingers or toes. Day of surgery/procedure do not use tampons. If you wear contacts wear your eyeglasses if available otherwise bring your contact supplies with you to remove them prior to your surgery/procedure. If you wear glasses or dentures, please bring cases in which you can store them during your surgery. Please remove all piercings and jewelry and leave them at home. Wear comfortable and loose clothing. -Please leave all valuables at home. -If you use a CPAP and are staying overnight, please bring your mask and tubing with you to the hospital. -If you use an assistive mobility device (walker, cane, etc), please label it with your name and bring to hospital. -An escort cement mixer driver is required if you are being discharged the same day of the surgery. You should have a responsible adult over the age of 18 [address] you home. This person should be present with youin the hospital at the time of discharge and for the first 24 hours after the surgery to support your needs. If you are taking a taxi home, you must have your responsible alliance party accompany you in the taxi ride home at the time of discharge. OR times subject to change. Please check voicemail messages the day/evening before your surgery forany updates. PRE-OP: You will be taken to the pre-op area where your vital signs (blood pressure, pulse and temperature)will be taken. Any preparations that need to be done will be done there. When it is time for your surgery, you will be taken to the operating room. PARENTS OF PEDIATRIC PATIENTS WILL BE ALLOWED TO STAY WITH THEIR CHILDREN UNTIL THEY ARE ESCORTED TO THE OPERATING ROOM OUTPATIENT SURGERY PATIENTS: After your surgery you will be taken to the Same Day Surgery Unit when you are awake and will go home from there. You will get instructions about your home care before you leave. Arrange to have someone drive you home from the hospital. You may not drive for 24 hours after anesthesia. You must havean adult stay with you at home for 24 hours after your operation. This is very important. If you are not able to comply with these guidelines, your Short Stay surgery cannot be done. ADMISSION PATIENTS: After your stay in the recovery area, you will be taken to your room. Your family may visit you in your room based on current visitation policy. If a next day discharge is expected, it is important to make arrangements for a cement mixer driver to take you home. Please be aware our visitation policies are subject to change Professionals, attendants, caregivers or family members are allowable visitors for patients with intellectual, developmental or cognitive disabilities, communication barriers or behavioral concerns. Because patients' and families' needs vary, they will be taken into account when [place] [address] Contact #: [phone] You will receive a call between 12:00 PM and 7:00 PM on the day prior to your MRI with anesthesia to provide you with your arrival time and to review your instructions. If you have not received your call by 7:00 PM, please call [phone]. Directions to MRI Department from the Momo Entrance: Enter through Momo Entrance and proceed to the right. Continue past the C and D elevators to Mely elevator. Take the A elevator down to the lower level. Proceed out of the elevator turning left in the hallway. The MRI department will be down the hallway on the right side. You will check in whenyou arrive at the MRI department. Directions to MRI Department from the East Entrance: Enter the East entrance and follow the hallway to the J elevator. Take the J elevator up to Lower Level 1. After exiting the elevator, proceed to the right. Turn left in the long hallway and continue. The MRI department will be located on the left side. You will check in when you arrive at the MRI department. Directions to MRI Department from the Parking Garage: Enter the [facility] and proceed down the long hallway. At the end of the paiz,turn left, take the J elevator down to Lower Level 1. After exiting the elevator, proceed to the right. Turn left in the long hallway and continue. The MRI department will be located on the left side. You will check in when you arrive at the MRI department. THANK YOU FOR CHOOSING [facility] documented in this encounter Plan of Treatment Upcoming Encounters Date Type Department Care Team (Latest Contact Info) Description 10/09/2023 3:25 PM EDT [facility] [address] [place] [address] Ed Causey MD [address] [place] [address] Ronny [place] [address] 11/21/2023 5:40 PM EDT Office Visit [facility] [address] [facility] [place] [id number] Toby Paz MD [address] [place] [address] 12/11/2023 1:04 PM EDT Hospital Encounter OR [facility], Operating Room, [facility] - 4th Floor [address] [place] [address] Ki Huang MD [address] [place] [address] 12/11/2023 1:04 PM EDT - 12/11/2023 1:54 PM EDT Surgery OR [facility], Operating Room, [facility] Floor [address] [place] [address] Ki Huang MD [address] [place] [address] ESOPHAGOGASTRODUODENOSCOPY (EGD), FLEXIBLE, TRANSORAL, DIAGNOSTIC Scheduled Procedures Name Priority Associated Diagnoses Date/Ti mt ESOPHAGOGASTRODUODENOSCOPY ( EGD), FLEXIBLE, TRANSORAL, DIAGNOSTIC Cirrhosis [...] Procedure Name Priority Date/Time Associated Diagnosis Comments MRI LIVER W WO CONTRAST Routine 08/31/2023 12:50 PM EDT Liver lesion documented in this encounter Results * MRI LIVER W WO CONTRAST (08/31/2023 12:50 PM EDT) Anatomical Region Laterality Modality Abdomen Magnetic Resonan ce 08/31/2023 2:51 PM EDT Impressions 08/31/2023 2:49 PM EDT IMPRESSION Cirrhosis. No HCC identified; no mass in the region of concern on the recent ultrasound. Portal hypertension with large portosystemic shunt in the right abdomen. Paraesophageal varices. No significant ascites. Additional findings are described above. Narrative 08/31/2023 2:49 PM EDT EXAM MRI LIVER W WO CONTRAST-08/31/2023 12:50 pm HISTORY HCC, liver lesion on COMPARISON Ultrasound abdomen 06/06/2023. MRI liver 10/18/2022, 04/22/2022. CT abdomen/pelvis 04/22/2020. TECHNIQUE Multiplanar, multisequential MR imaging of the abdomen was performed before and after the administration of intravenous contrast. FINDINGS Liver: Cirrhosis. 7-8 mm faint arterial enhancement at the anterior left liver without correlate on other sequences, most likely a vascular shunt, series 13, image 39. A few small cysts. No mass in the region of concern on the recent ultrasound. No HCC identified. Biliary ducts: Within normal limits. Gallbladder: Cholecystectomy. Pancreas: Similar 6 mm cyst at the pancreatic body, favoring a side-branch IPMN; attention can be paid on future exams. The pancreatic duct is normal in caliber. Spleen: Splenomegaly, 14.7 cm span. Adrenal glands: Within normal limits. Kidneys: Small left lower pole cortical cyst. No worrisome renal lesion. No hydronephrosis. Visualized bowel: Within normal limits. Lymph nodes: Within normal limits. Peritoneum/retroperitoneum: Mesenteric edema without significant ascites. Vessels: Similar narrow caliber portal veins, with SMA shunt with large right- sided mesocolic varix. Paraesophageal varices. Similar infrarenal aortic ectasia, about 3 cm axial span. Abdominal wall: Within normal limits. Lower chest: Gynecomastia. Bones: Within normal limits. Procedure Note Triffo, Reji Collazo MD - 08/31/2023 EXAM MRI LIVER W WO CONTRAST-08/31/2023 12:50 pm HISTORY HCC, liver lesion on COMPARISON Ultrasound abdomen 06/06/2023. MRI liver 10/18/2022, 04/22/2022. CTabdomen/pelvis 04/22/2020. TECHNIQUE Multiplanar, multisequential MR imaging of the abdomen was performedbefore and after the administration of intravenous contrast. FINDINGS Liver: Cirrhosis. 7-8 mm faint arterial enhancement at the anterior leftliver without correlate on other sequences, most likely a vascular shunt,series 13, image 39. A few small cysts. No mass in the region of concernon the recent ultrasound. No HCC identified. Biliary ducts: Within normal limits. Gallbladder: Cholecystectomy. Pancreas: Similar 6 mm cyst at the pancreatic body, favoring aside-branch IPMN; attention can be paid on future exams. The pancreaticduct is normal in caliber. Spleen: Splenomegaly, 14.7 cm span. Adrenal glands: Within normal limits. Kidneys: Small left lower pole cortical cyst. No worrisome renal lesion.No hydronephrosis. Visualized bowel: Within normal limits. Lymph nodes: Within normal limits. Peritoneum/retroperitoneum: Mesenteric edema without significantascites. Vessels: Similar narrow caliber portal veins, with SMA shunt with largeright- sided mesocolic varix. Paraesophageal varices. Similar infrarenalaortic ectasia, about 3 cm axial span. Abdominal wall: Within normal limits. Lower chest: Gynecomastia. Bones: Within normal limits. IMPRESSION IMPRESSION Cirrhosis. No HCC identified; no mass in the region of concern on therecent ultrasound. Portal hypertension with large portosystemic shunt in the right abdomen.Paraesophageal varices. No significant ascites. Additional findings are described above. Keyanna ZUÑIGA RAD MRI-[facility] documented in this encounter Visit Diagnoses Diagnosis Liver lesion Other specified disorders of liver Cirrhosis (HCC) Cirrhosis of liver without mention of alcohol documented in this encounter Administered Medications Inactive Administered Medications - up to 3 most recent administrations Medication Order MAR Action Action Date Dose Rate Site gadobutrol (Gadavist) inj 8.9 mL 8.9 mL (rounded from 8.87 mL = 0.1 mL/kg 88.7 kg), Intravenous, ONCE, On [place] 08/31/23 at 1330, For 1 dose, Radiology Medication Routing (Non-IR) Given 08/31/2023 12:30 PM EDT 8.9 mL documented in this encounter Active and Recently Administered Medications Times are shown in EDT. Scheduled Medication Order 08/29/2023 08/30/2023 08/31/2023 gadobutrol (Gadavist) inj 8.9 mL (COMPLETED) 8.9 mL (rounded from 8.87 mL = 0.1 mL/kg 88.7 kg), Intravenous, ONCE, On [place] 08/31/23 at 1330, For 1 dose, Radiology Medication Routing (Non-IR) 1230 (Given - Provid er: Philip Brito, RT (R)) documented in this encounter Care Teams Communications Systems Engineer Relationship Specialty Start Date End Date Toby Paz MD [address] [place] [address] PCP - General Family Medicine 11/25/14 documented as of this encounter
--- OUTSIDE RECORDS SUMMARY | 2023-09-30 15:27 | External Medical Summary ---
Author Name Unknown Address Unknown Organization [id number]:[facility] [place] - [address] [place] [id number] Laboratory Report Ordering Provider Test Date Status LIZA LAROSE 09/06/2023 11:22:59 Final Observation Date Value Abnormality Reference (Units) Status Bacteria identified in Specimen by Culture 09/06/2023 11:22:59 No significant growth Final Test: Culture, Urine, Quanti tative
Specimen Source: Urine, Clean Catch
Specimen Type: Urine
Specimen Date: 09/06/2023 1122
Result Date: 09/08/2023 0737
Result Status: Final result
Resulting Lab: [facility]
[address]
[place] [facility]

CULTURE

No significant growth

null Performing Location [facility]ORY [facility] [place] - [address] [facility] [address]
--- OUTSIDE RECORDS SUMMARY | 2023-09-30 15:27 | External Medical Summary ---
Author Name Unknown Address Unknown Organization [id number]:[facility] [address] [place] [address] Laboratory Report Ordering Provider Test Date Status LIZA LAROSE 08/10/2023 11:09:53 Final Warfarin Therapy
INR: 2 .0-3.0 conventional anticoagulation
INR: 2.5- 3.5 high intensity anticoagulation Observation Date Value Abnormality Reference (Units ) Status PT 08/10/2023 11:09:53 17.3 Above high normal 11 .6-15.2 (seconds) Final INR 08/10/2023 11:09:53 1.4 Above high normal 0. 8-1.2 Final Performing Location [facility] [address] [place] [address]
--- OUTSIDE RECORDS SUMMARY | 2023-09-30 15:27 | External Medical Summary ---
Author Name Unknown Address Unknown Organization [id number]:LABORATORY [facility] [place] - [address] [place] [address] Laboratory Report Ordering Provider Test Date Status TERESITA MORRISON 09/06/2023 11:22:46 Final Observation Date Value Abnormality Reference (Units ) Status WBC, Total 09/06/2023 11:22:46 5.61 4.00-10.80 (K/uL) Final RBC 09/06/2023 11:22:46 4.09 4.50-5.25 (M/uL) Final Hemoglobin 09/06/2023 11:22:46 13.7 Below low normal 14.0-16.8 (g/dL) Final HCT 09/06/2023 11:22:46 41.1 40.0-48.4 (%) Final MCV 09/06/2023 11:22:46 100.5 82.0-99.5 (fL) Final MCH 09/06/2023 11:22:46 33.5 27.0-34.0 (pg) Final MCHC 09/06/2023 11:22:46 33.3 32.0-36.0 (g/dL) Final RDW 09/06/2023 11:22:46 16.4 11.5-15.5 (%) Final Platelets 09/06/2023 11:22:46 44 Below low normal 140-400 (K/uL) Final MPV 09/06/2023 11:22:46 15.7 6.6-11.1 (fL) Final Nucleated erythrocytes/100 leukocytes [Ratio] in Blood by Automated count 09/06/2023 11:22:46 0 <=0 (/100 WBCs) Final Performing Location LAB[facility]ATORY [facility] [place] - [address] [place] [address]
--- OUTSIDE RECORDS SUMMARY | 2023-09-30 15:27 | External Medical Summary ---
Author Name Unknown Address Unknown Organization [id number]:[facility] [place] - [address] [place] [id number] Laboratory Report Ordering Provider Test Date Status LIZA LAROSE 08/10/2023 11:09:53 Final Observation Date Value Abnormality Reference (Units) Status Bacteria identified in Specimen by Culture 08/10/2023 11:09:53 No significant growth Final Test: Culture, Urine, Quanti tative
Specimen Source: Urine, Clean Catch
Specimen Type: Urine
Specimen Date: 08/10/2023 11:09 AM
Result Date: 08/11/2023 4:31 PM
Result Status: Final result
Resulting Lab: [facility] [place]
[address]
[place] [facility]22

CULTURE

No significant growth

null Performing Location [facility]ORY [facility] [place] - [address] [place] [id number]
--- OUTSIDE RECORDS SUMMARY | 2023-09-30 15:27 | External Medical Summary ---
Author Name Unknown Address Unknown Organization [id number]:[facility]ORY [facility] [place] - [address] [place] [address] Laboratory Report Ordering Provider Test Date Status TERESITA MORRISON 08/10/2023 11:09:53 Final Observation Date Value Abnormality Reference (Units ) Status WBC, Total 08/10/2023 11:09:53 6.33 4.00-10.8 0 (K/uL) Final RBC 08/10/2023 11:09:53 4.00 4.50-5.25 (M/uL) Final Hemoglobin 08/10/2023 11:09:53 13.2 Below low normal 14 .0-16.8 (g/dL) Final HCT 08/10/2023 11:09:53 38.9 Below low normal 40. 0-48.4 (%) Final MCV 08/10/2023 11:09:53 97.3 82.0-99.5 (fL) Final MCH 08/10/2023 11:09:53 33.0 27.0-34.0 (pg) Final MCHC 08/10/2023 11:09:53 33.9 32.0-36.0 (g/dL) Final RDW 08/10/2023 11:09:53 15.4 11.5-15.5 (%) Final Platelets 08/10/2023 11:09:53 43 Below low normal 140 -400 (K/uL) Final MPV 08/10/2023 11:09:53 Final No result - abnormal platele t distribution. Nucleated erythrocytes/100 l eukocytes [Ratio] in Blood by Automated count 08/10/2023 11:09:53 0 <=0 (/100 WBCs) Final Performing Location [facility]ORY [facility] [place] - [address] [place] [address]
--- OUTSIDE RECORDS SUMMARY | 2023-09-30 15:27 | External Medical Summary | Summary of Care ---
Author Name Unknown Organization [facility] Address [address] [facility] [place] [address] Phone [phone] Care Team Providers Care Superintendent Recreation Name Role Phone Toby Paz MD Primary Care Provider +1- [phone] Reason for Visit * Reason Comments Outpatient Testing Encounter Details Date Type Department Care Team (Late st Contact Info) Description 08/10/2023 11:00 AM EDT Laboratory [facility], [place] [address] [place] [address] [place] [address] [place] [address] S/P hip replacement; Alcoholic cirrhosis of liver with ascites (HCC) Allergies Active Allergy Reactions Criticality Noted Date Comments Other Allergy (See Comments) Anaphylaxis High 06/21/2018 Bee stings- swelling documented as of this encounter (statuses as of 08/11/2023) Medications Medication Sig Dispensed Refills Start Date End Date Status EpiPen 2-Dave 0.3 MG/0.3ML Injection Solution Auto-injector For a severe reaction: Place orange end against the outer thigh, press firmly, hold in place for 10 seconds and go to the Emergency room. 2 Each 1 07/20/2020 Active Additional Information Patient not taking.Reported on 08/07/2023 Iron (Ferrous Sulfate) 325 (65 Fe) MG [...] affected area. 60 g 5 05/10/2023 Active FLUoxetine HCl 10 MG Oral Capsule [...] at bedtime. 180 Tablet 3 07/07/2023 Active traMADol HCl 50 MG Oral Tablet (Ultram)Indications :Avascular necrosis of bone of left hip (HCC) Take 1 Tablet by mouth every 8 hours as needed for Pain, Severe. 30 Tablet 0 07/21/2023 Active prednisoLONE Acetate 1 % Ophthalmic Suspension [...] 1 Drop before bedtime. 0 07/10/2023 Active Hospital, Clinic, or Other Facility Administered Medication Ordered Dose Route Frequency Start Date End Date Status albuterol sulfate (PROVENTIL) (2.5 MG/3ML) 0.083% inhalation solution 2.5 mgIndications:SOB (shortness of breath) 2.5 mg NEBULIZER Q4H PRN 05/10/2018 Act guzman documented as of this encounter (statuses as of 08/11/2023) Active Problems Problem Noted Date Diagnosed Date [...] as of this encounter (statuses as of 08/11/2023) Resolved Problems Problem Noted Date Diagnosed Date Resolved Date History of alcohol abuse 05/22/2023 Alcohol dependence, uncomplicated 01/17/2023 05/22/2023 Avascular necrosis of bone of hip 05/10/2022 05/22/2023 Chronic alcohol abuse 06/17/20212023 Facial swelling 06/09/2017 08/07/2019 Urticaria 06/09/2017 08/07/2019 Intestinal obstruction 05/09/201203/02 CLASSICAL MIGRAINE WITHOU ME NTION OF INTRACTABLE MIGRAINE 11/29/2001 08/07/2019 Undiagnosed cardiac murmurs 11/29/2001 03/02/2017 Overview: Not [place] on 11/29/01 documented as of this encounter (statuses as of 08/11/2023) Immunizations Name Administration Dates Next Due HEP A - Hepatitis A (Adult > 18 yrs) 06/06/2020 Pneumococcal Conjugate Vacci ne, 20-valent ([id number]) 06/24/2022 Seasonal Influenza Virus Vac cine, Unspecified [...] Encounter Note - Keyanna Gordon CRNP - 08/11/2023 6:21 AM EDT Message sent to Mauro to go to the ED if confused, lethargic. documented in this encounter Plan of Treatment Upcoming Encounters Date Type Department Care Team (Latest Contact Info) Description 08/17/2023 10:40 AM EDT Office Visit [facility] [address] [place] [address] Rao Ochoa MD [address] [place] [address] 08/31/2023 7:00 AM EDT Appointment [facility] [address] [address] 08/31/2023 7:45 AM EDT Appointment [facility] [address] [address] 08/31/2023 11:30 AM EDT Hospital Encounter OR [facility], OPERATING ROOM [facility], [facility] [address] [place] [facility] [address] c, In And Out Surgery [address] [facility] [place] [address] 08/31/2023 11:30 AM EDT - 08/31/2023 2:05 PM EDT Surgery OR [facility], OPERATING ROOM [facility], [facility] [address] [facility] [place] [address] [facility], In And Out Surgery [address] [facility] [place] [address] ANESTHESIA FOR NON-INVASIVE IMAGING (MRI OR CT) 09/01/2023 1:30 PM EDT Hospital Encounter [facility], Endoscopy Room [facility] [address] [place] [address] Lopez Shi MD [address] [place] [address] 09/01/2023 1:30 PM EDT - 09/01/2023 2:00 PM EDT Surgery [facility], Endoscopy Room [facility] [address] [place] [address] Lopez Shi MD [address] [place] [address] ESOPHAGOGASTRODUODENOSCOPY (EGD), FLEXIBLE, TRANSORAL, DIAGNOSTIC 09/04/2023 3:30 PM EDT Office Visit Orthopaedics [facility] [address] [place] [address] Velvet Valenzuela MD [address] [place] [address] 09/11/2023 3:30 PM EDT Office Visit Interventional Pain Center, [facility] [address] [place] [address] Sita Molina PA-C [address] [place] [address] 11/21/2023 5:40 PM EDT Office Visit [facility] [address] [place] [address] Toby Paz MD [address] [place] [address] Pending Results Name Type Priority Associated Diagnoses Date /Time CULTURE, URINE, QUANTITATIVE Lab Routine Alcoholic cirrhosis of liver with ascites (HCC) 08/10/2023 11:09 AM EDT Scheduled Procedures Name Priority Associated Diagnoses Date/Ti me ANESTHESIA FOR NON-INVASIVE IMAGING (MRI OR CT) Pain in left hip Liver lesion 08/31/2023 11:30 AM EDT ESOPHAGOGASTRODUODENOSCOPY ( EGD), FLEXIBLE, TRANSORAL, DIAGNOSTIC Cirrhosis (HCC) 09/01/2023 1:30 PM EDT COLONOSCOPY FLEXIBLE PROXIMA L DIAGNOSTIC Recall History of colon polyps Health Maintenance Due Date Last Done Comments Cologuard 2009 Fecal Occult Blood Test 2009 Sigmoidoscopy 2009 COVID-19 Vaccine ( season) 2022 Colonoscopy 06/30/2024 06/30/2021, 06/03, 05/30/2019, Additional history exists Colorectal Cancer Screening 06/30/2024 GFR 08/09/2024 08/10/2023, 05/0 05/2023, 07/10/2023, Additional history exists Albumin/Creatinine Ratio 07/09/2026 07/10/2023 Diabetes Screening 08/09/2026 08/10/2023, 0 08/03/2023, 07/10/2023, Additional history exists DTaP,Tdap,and Td Vaccines (2 [...] Procedure Name Priority Date/Time Associated Diagnosis Comments DIFFERENTIAL, AUTOMATED STAT 08/10/2023 11:09 AM EDT S/P hip replacement COMPREHENSIVE METABOLIC PANEL Routine 08/10/2023 11:09 AM EDT Alcoholic cirrhosis of liver with ascites (HCC) CBC STAT 08/10/2023 11:09 AM EDT S/P hip replacement PT INR Routine 08/10/2023 11:09 AM EDT Alcoholic cirrhosis of liver with ascites (HCC) CBC STAT 08/10/2023 11:09 AM EDT S/P hip replacement AMMONIA Routine 08/10/2023 11:09 AM EDT Alcoholic cirrhosis of liver with ascites (HCC) documented in this encounter Results * (ABNORMAL) DIFFERENTIAL, AUTOMATED (08/10/2023 11:09 AM EDT) WBC 6.33 4.00 - 10.80 K/uL 08/10/2023 10:13 PM EDT [facility] Neutrophils % 64.1 40.0 - 75.0 % 08/10/2023 10:13 PM EDT [facility] Lymphocytes % 17.7(L) 18.0 - 42.0 % 08/10/2023 10:13 PM EDT [facility] Monocytes % 9.2 1.0 - 11.0 % 08/10/2023 10:13 PM EDT [facility] Eosinophils % 7.9(H) 0.0 - 6.0 % 08/10/2023 10:13 PM EDT [facility] Basophils % 0.9 0.0 - 2.0 % 08/10/2023 10:13 PM EDT [facility] Immature Granulocytes % 0.2 0.0 - 2.0 % 08/10/2023 10:13 PM EDT [facility] Absolute Neutrophils 4.06 1.80 - 7.70 K/uL 08/10/2023 10:13 PM EDT [facility] Absolute Lymphocytes 1.12 1.00 - 4.80 K/ul 08/10/2023 10:13 PM EDT [facility] Absolute Monocytes 0.58 0.00 - 1.10 K/uL 08/10/2023 10:13 PM EDT [facility] Absolute Eosinophils 0.50 0.00 - 0.70 K/uL 08/10/2023 10:13 PM EDT [facility] Absolute Basophils 0.06 0.00 - 0.20 K/uL 08/10/2023 10:13 PM EDT [facility] Absolute Immature Granulocytes 0.01 0.00 - 0.20 K/uL 08/10/2023 10:13 PM EDT [facility] Blood Venous blood specimen / Unknown Venipuncture / Unknown 08/10/2023 11:09 AM EDT 08/10/2023 11:09 AM EDT Camille Jaimes PA-C LAB BLOOD ORDERABLES LAB[facility] [address] [place] [address] * (ABNORMAL) CBC (08/10/2023 11:09 AM EDT) WBC 6.33 4.00 - 10.80 K/uL 08/10/2023 10:13 PM EDT [facility] RBC 4.00 4.50 - 5.25 M/uL 08/10/2023 10:13 PM EDT [facility] HGB 13.2(L) 14.0 - 16.8 g/dL 08/10/2023 10:13 PM EDT [facility] HCT 38.9(L) 40.0 - 48.4 % 08/10/2023 10:13 PM EDT [facility] MCV 97.3 82.0 - 99.5 fL 08/10/2023 10:13 PM EDT LABORATORY [facility] MCH 33.0 27.0 - 34.0 pg 08/10/2023 10:13 PM EDT LABORATORY [facility] MCHC 33.9 32.0 - 36.0 g/dL 08/10/2023 10:13 PM EDT LABORATORY [facility] RDW 15.4 11.5 - 15.5 % 08/10/2023 10:13 PM EDT LABORATORY [facility] PLT 43(L) 140 - 400 K/uL 08/10/2023 10:13 PM EDT LABORATORY [facility] MPV 08/10/2023 10:13 PM EDT LABORATORY [facility] Comment:No result - abnormal platelet distribution. nRBCs 0 <=0 /100 WBCs 08/10/2023 10:13 PM EDT LABORATORY [facility] Blood Venous blood specimen / Unknown Venipuncture / Unknown 08/10/2023 11:09 AM EDT 08/10/2023 11:09 AM EDT Camille Jaimes PA-C LAB BLOOD ORDERABLES Performing Organization Address City/[facility]/ZIP Co de Phone Number LABORATORY [facility] [address] [place] [address] * (ABNORMAL) AMMONIA (08/10/2023 11:09 AM EDT) Pathologist [facility] Ammonia 98(HH) 11 - 35 umol/L 08/10/2023 10:39 PM EDT LABORATORY [facility] Blood Venous blood specimen / Unknown Venipuncture / Unknown 08/10/2023 11:09 AM EDT 08/10/2023 11:09 AM EDT Keyanna ZUÑIGA LAB BLOOD ORDERABL ES Performing Organization Address [facility]/ZIP Co de Phone Number LABORATORY [facility] [address] [place] [address] * (ABNORMAL) PT INR (08/10/2023 11:09 AM EDT) Prothrombin Time 17.3(H) 11.6 - 15.2 seconds 08/10/2023 11:36 PM EDT [facility] INR 1.4(H) 0.8 - 1.2 08/10/2023 11:36 PM EDT LABORATORY [facility] Blood Venous blood specimen / Unknown Venipuncture / Unknown 08/10/2023 11:09 AM EDT 08/10/2023 11:09 AM EDT Narrative LABORATORY [facility] - 08/10/2023 11:36 PM EDT Warfarin Therapy INR: 2.0-3.0 conventional anticoagulation INR: 2.5-3.5 high intensity anticoagulation Keyanna ZUÑIGA LAB BLOOD ORDERABL ES LABORATORY [facility] [address] [place] [address] * (ABNORMAL) COMPREHENSIVE METABOLIC PANEL (08/10/2023 11:09 AM EDT) BUN 16 6 - 20 mg/dL 08/10/2023 11:43 PM EDT LABORATORY C Creatinine 0.9 0.6 - 1.2 mg/dL 08/10/2023 11:43 PM EDT LABORATORY GM Estimated Glomerular Filtration Rate >90 >=60 mL/min 08/10/2023 11:43 PM EDT LABORATORY [facility] Comment:eGFR is calculated b ased on the CKD-EPI 2020 equation Sodium 141 135 - 146 mmol/L 08/10/2023 11:43 PM EDT LABORATORY C Potassium 4.1 3.5 - 5.1 mmol/L 08/10/2023 11:43 PM EDT LABORATORY C Chloride 109(H) 98 - 107 mmol/L 08/10/2023 11:43 PM EDT [facility] CO2 23 22 - 32 mmol/L 08/10/2023 11:43 PM EDT [facility] Anion Gap 9 7 - 15 mmol/L 08/10/2023 11:43 PM EDT LABORATORY C Glucose 89 70 - 120 mg/dL 08/10/2023 11:43 PM EDT [facility] Albumin 3.7(L) 3.8 - 5.0 g/dL 08/10/2023 11:43 PM EDT LABORATORY [facility] AST 51(H) 10 - 50 U/L 08/10/2023 11:43 PM EDT [facility] Alkaline Phosphatase 245(H) 35 - 130 U/L 08/10/2023 11:43 PM EDT [facility] Bilirubin, Total 1.6(H) <=1.2 mg/dL 08/10/2023 11:43 PM EDT [facility] Calcium 8.7 8.4 - 10.2 mg/dL 08/10/2023 11:43 PM EDT [facility] Protein 6.2 6.0 - 8.3 g/dL 08/10/2023 11:43 PM EDT [facility] ALT 40 10 - 50 U/L 08/10/2023 11:43 PM EDT [facility] Blood Venous blood specimen / Unknown Venipuncture / Unknown 08/10/2023 11:09 AM EDT 08/10/2023 11:09 AM EDT Keyanna ZUÑIGA LAB BLOOD ORDERABL ES [facility] [address] [place] [address] documented in this encounter Visit Diagnoses Diagnosis S/P hip replacement Hip joint replacement by other means Alcoholic cirrhosis of liver with ascites (HCC) Alcoholic cirrhosis of liver Pain in left hip Pain in joint, pelvic region and thigh Liver lesion Other specified disorders of liver Cirrhosis (HCC) Cirrhosis of liver without mention of alcohol documented in this encounter Care Teams Superintendent Recreation Relationship Specialty Start Date End Date Toby Paz MD [address] [place] [address] PCP - General Family Medicine 11/25/14 documented as of this encounter
--- OUTSIDE RECORDS SUMMARY | 2023-09-30 15:27 | External Medical Summary ---
Author Name Unknown Address Unknown Organization [id number]:[facility] [address] [place] [address] Laboratory Report Ordering Provider Test Date Status LIZA LAROSE 08/10/2023 11:09:53 Final Observation Date Value Abnormality Reference (Units ) Status Ammonia 08/10/2023 11:09:53 98 Above upper panic limits 11-35 (umol/L) Final Performing Location [facility] - [address] [place] [address]
--- OUTSIDE RECORDS SUMMARY | 2023-09-30 15:27 | External Medical Summary | Summary of Care ---
Author Name Unknown Organization [facility] Address [address] [place] [address] Phone [phone] Care Team Providers Care Data Input Clerk Name Role Phone Toby Paz MD Primary Care Provider +1- [phone] Reason for Visit * Precert (Within 10 days (routine)) - Pending Review Specialty Diagnoses / Procedures Referred By Contac t Referred To Contact Radiology Diagnoses Pain in left hip Procedures MRI L SPINE WO CONTRAST Camille Jaimes, PA-C [address] [place] [facility] [address] [place] [address] Referral ID Status Reason Start Date Expiration Date V isits Requested Visits Authorized [id number] Pending Review 05/29/[id number] Encounter Details Date Type Department Care Team (Latest Contact Info) Description 08/31/2023 7:00 AM EDT - 08/31/2023 9:34 AM EDT Hospital Encounter [facility], [place] [address] [place], [place] [id number] Arrived Discharge Disposition: Home - Self Care Allergies [...] Undiagnosed cardiac murmurs 11/29/2001 03/02/2017 Overview: Not [place] on 11/29/01 documented as of this encounter (statuses as of 09/01/2023) Immunizations Name Administration Dates Next Due HEP A - Hepatitis A (Adult > 18 yrs) 06/06/2020 Pneumococcal Conjugate Vacci ne, 20-valent ([id number]) 06/24/2022 Seasonal Influenza Virus Vac cine, Unspecified [...] PM EDT Office Visit Interventional Pain Center, [facility] [address] [facility] [place] [address] Ed Causey MD [facility] [place] [address] 11/21/2023 5:40 PM EDT Office Visit [address] [place] Toby Paz MD [address] [place] [address] 12/11/2023 1:04 PM EDT Hospital Encounter OR [facility], Operating Room, [facility] - 4th Floor [address] [place] [address] Ki Huang MD [address] [place] [address] 12/11/2023 1:04 PM EDT - 12/11/2023 1:54 PM EDT Surgery OR [facility], Operating Room, [facility] - 4th Floor [address] [place] [address] Ki Huang MD [address] [place] [address] ESOPHAGOGASTRODUODENOSCOPY (EGD), FLEXIBLE, TRANSORAL, DIAGNOSTIC Pending Results Name Type Priority Associated Diagnoses Date /Time MRI L SPINE WO CONTRAST Medical Imaging Routine Pain in left hip 08/31/2023 12:47 PM EDT Scheduled Procedures Name Priority Associated Diagnoses Date/Ti nd ESOPHAGOGASTRODUODENOSCOPY ( EGD), FLEXIBLE, TRANSORAL, DIAGNOSTIC Cirrhosis [...] filedocumented as of this encounter Care Teams Data Input Clerk Relationship Specialty Start Date End Date Toby Paz MD [address] [place] [address] PCP - General Family Medicine 11/25/14 documented as of this encounter
--- OUTSIDE RECORDS SUMMARY | 2023-09-30 15:27 | External Medical Summary | Summary of Care ---
Author Name Unknown Organization [facility] Address [address] [place] [place] [address] Phone [phone] Care Team Providers Care Manager Decision Support Name Role Phone Toby Paz MD Primary Care Provider +1- [phone] Reason for Visit * Reason Comments Outpatient Testing Encounter Details Date Type Department Care Team (Late st Contact Info) Description 08/10/2023 11:00 AM EDT Laboratory Laboratory, [place] [address] [place] [address] [place], [facility] [address] [place] [address] S/P hip replacement; Alcoholic cirrhosis of liver with ascites (HCC) Allergies Active Allergy Reactions Criticality Noted Date Comments Other Allergy (See Comments) Anaphylaxis High 06/21/2018 Bee stings- swelling documented as of this encounter (statuses as of 08/10/2023) Medications Medication Sig Dispensed Refills Start Date [...] as of this encounter (statuses as of 08/10/2023) Active Problems Problem Noted Date Diagnosed Date [...] ischemic heart disease 002 Overview: father had NV's in 40's Gastroesophageal reflux disease with esophagitis documented as of this encounter (statuses as of 08/10/2023) Resolved Problems Problem Noted Date Diagnosed Date Resolved Date History of alcohol abuse 05/22/2023 Alcohol dependence, uncomplicated 01/17/2023 05/22/2023 Avascular necrosis of bone of hip 05/10/2022 05/22/2023 Chronic alcohol abuse 06/17/20212023 Facial swelling 06/09/2017 08/07/2019 Urticaria 06/09/2017 08/07/2019 Intestinal obstruction 05/09/201203/02 CLASSICAL MIGRAINE WITHOU ME NTION OF INTRACTABLE MIGRAINE 11/29/2001 08/07/2019 Undiagnosed cardiac murmurs 11/29/2001 03/02/2017 Overview: Not [place] on 11/29/01 documented as of this encounter (statuses as of 08/10/2023) Immunizations Name Administration Dates Next Due HEP A - Hepatitis A (Adult > 18 yrs) 06/06/2020 Pneumococcal Conjugate Vacci ne, 20-valent ([id number]) 06/24/2022 Seasonal Influenza Virus Vac cine, Unspecified [...] Department Care Team (Latest Contact Info) Description 08/10/2023 12:50 PM EDT [facility] [address] [place] [address] [place] [address] [place] [address] 08/17/2023 10:40 AM EDT Office Visit [facility] [address] [place] [phone] Rao Ochoa MD [address] [place] [address] 08/31/2023 7:00 AM EDT Appointment [facility] [address] [address] 08/31/2023 7:45 AM EDT Appointment [facility] [address] [address] 08/31/2023 11:30 AM EDT Hospital Encounter OR [facility], OPERATING ROOM C, [facility] [address] [place] [address] [facility], In And Out Surgery [address] [facility] [place] [address] 08/31/2023 11:30 AM EDT - 08/31/2023 2:05 PM EDT Surgery OR [facility], OPERATING ROOM GM, [facility] [address] [place] [address] [facility], In And Out Surgery [address] [facility] [place] [place] [address] ANESTHESIA FOR NON-INVASIVE IMAGING (MRI OR CT) 09/01/2023 1:30 PM EDT Hospital Encounter [facility], Endoscopy Room [facility] [address] [place] [address] Lopez Shi MD [address] [place] [address] 09/01/2023 1:30 PM EDT - 09/01/2023 2:00 PM EDT Surgery [facility], Endoscopy Room [facility] [address] [place] [address] Lopez Shi MD [address] [place] [address] ESOPHAGOGASTRODUODENOSCOPY (EGD), FLEXIBLE, TRANSORAL, DIAGNOSTIC 09/04/2023 3:30 PM EDT Office Visit Orthopaedics [facility] [address] [place] [address] Velvet Valenzuela MD [address] [place] [address] 09/11/2023 3:30 PM EDT Office Visit Interventional Pain Center, [facility] [address] [place] [address] Sita Molina PA-C [address] [place] [address] 11/21/2023 5:40 PM EDT Office Visit [facility] [address] [place] [phone] Toby Paz MD [address] [place], [place] [phone] Pending Results Name Type Priority Associated Diagnoses Date /Time CBC WITH WBC DIFFERENTIAL Lab STAT S/P hip replacement 08/10/2023 11:09 AM EDT COMPREHENSIVE METABOLIC PANEL Lab Routine Alcoholic cirrhosis of liver with ascites (HCC) 08/10/2023 11:09 AM EDT PT INR Lab Routine Alcoholic cirrhosis of liver with ascites (HCC) 08/10/2023 11:09 AM EDT CULTURE, URINE, QUANTITATIVE Lab Routine Alcoholic cirrhosis of liver with ascites (HCC) 08/10/2023 11:09 AM EDT AMMONIA Lab Routine Alcoholic cirrhosis of liver with ascites (HCC) 08/10/2023 11:09 AM EDT CBC Lab STAT S/P hip replacement 08/10/2023 11:09 AM EDT DIFFERENTIAL, AUTOMATED Lab STAT S/P hip replacement 08/10/2023 11:09 AM EDT Scheduled Procedures Name [...] history exists Colorectal Cancer Screening 06/30/2024 GFR 08/02/2024 08/03/2023, 04/0 11/2023, 06/06/2023, Additional history exists Albumin/Creatinine Ratio 07/09/2026 07/10/2023 Diabetes Screening 08/02/2026 08/03/2023, 0 07/10/2023, 06/06/2023, Additional history exists DTaP,Tdap,and Td Vaccines (2 [...] alcohol documented in this encounter Care Teams Manager Decision Support Relationship Specialty Start Date End Date Toby Paz MD [address] [place] [address] PCP - General Family Medicine 11/25/14 documented as of this encounter
--- OUTSIDE RECORDS SUMMARY | 2023-09-30 15:27 | External Medical Summary | Summary of Care ---
Author Name Unknown Organization [facility] Address [address] [facility] [place] [address] Phone [phone] Care Team Providers Care Improvement Engineer Name Role Phone Toby Paz MD Primary Care Provider +1- [phone] Encounter Details Date Type Department Care Team (Late st Contact Info) Description 08/24/2023 Telephone OR [facility], Operating Room [facility] [address] [place] [address] Lopez Shi MD [address] [place] [address] Allergies Active Allergy Reactions Criticality Noted Date Comments Other Allergy (See Comments) Anaphylaxis High 06/21/2018 Bee stings- swelling documented as of this encounter (statuses as of 08/29/2023) Medications Medication Sig Dispensed Refills Start Date [...] as of this encounter (statuses as of 08/29/2023) Active Problems Problem Noted Date Diagnosed Date [...] as of this encounter (statuses as of 08/29/2023) Resolved Problems Problem Noted Date Diagnosed Date Resolved Date History of alcohol abuse 05/22/2023 Alcohol dependence, uncomplicated 01/17/2023 05/22/2023 Avascular necrosis of bone of hip 05/10/2022 05/22/2023 Chronic alcohol abuse 06/17/20212023 Facial swelling 06/09/2017 08/07/2019 Urticaria 06/09/2017 08/07/2019 Intestinal obstruction 05/09/201203/02 CLASSICAL MIGRAINE WITHOU ME NTION OF INTRACTABLE MIGRAINE 11/29/2001 08/07/2019 Undiagnosed cardiac murmurs 11/29/2001 03/02/2017 Overview: Not [place] on 11/29/01 documented as of this encounter (statuses as of 08/29/2023) Immunizations Name Administration Dates Next Due HEP A - Hepatitis A (Adult > 18 yrs) 06/06/2020 Pneumococcal Conjugate Vacci ne, 20-valent ([id number]) 06/24/2022 Seasonal Influenza Virus Vac cine, Unspecified [...] Telephone Encounter - Linnette Christianson OSA - 08/29/2023 9:23 AM EDT Pt res'd to 12/11/23 at [facility]. * Telephone Encounter - Marilu Swift RN [...] Department Care Team (Latest Contact Info) Description 4 7:00 AM EDT Appointment MRI, [place] [address] [place] [facility] [address] 4 2:30 PM EDT Hospital Encounter OR [facility], OPERATING ROOM [facility], [facility] [address] [place] [facility] [phone] c, In And Out Surgery [address] [place] [facility] [place] [address] 4 2:30 PM EDT - 4 4:40 PM EDT Surgery OR [facility], OPERATING ROOM [facility], [facility] [address] [place] [facility] [phone] [facility], In And Out Surgery [address] [place] [facility] [place] [address] ANESTHESIA FOR NON-INVASIVE IMAGING (MRI OR CT) 4 3:25 PM EDT Office Visit Interventional Pain Center, [facility] [address] [place] [address] Ed Causey MD [address] [place] [address] 4 5:40 PM EDT Office Visit [facility] [address] [place] [phone] Toby Paz MD [address] [place] [address] 4 1:04 PM EDT Hospital Encounter OR [facility], Operating Room, [facility] - 4th Floor [address] [place] [address] Ki Huang MD [address] [place] [address] 4 1:04 PM EDT - 4 1:54 PM EDT Surgery OR [facility], Operating Room, [facility] - 4th Floor [address] [place] [address] Ki Huang MD [address] [place] [address] ESOPHAGOGASTRODUODENOSCOPY (EGD), FLEXIBLE, TRANSORAL, DIAGNOSTIC Scheduled Procedures [...] filedocumented as of this encounter Care Teams Improvement Engineer Relationship Specialty Start Date End Date Toby Paz MD [address] [place] [address] PCP - General Family Medicine 11/25/14 documented as of this encounter
--- OUTSIDE RECORDS SUMMARY | 2023-09-30 15:27 | External Medical Summary | Summary of Care ---
Author Name Unknown Organization [facility] Address [address] [facility] [place] [address] Phone [phone] Care Team Providers Care Wildlife Ecologist Name Role Phone Toby Paz MD Primary Care Provider +1- [phone] Reason for Visit * Reason Onset Date Comments Advice 05/25/2023 Forms Request 05/25/2023 Encounter Details Date Type Department Care Team (Late st Contact Info) Description 05/25/2023 Telephone [facility] [address] [place] [address] Toby Paz MD [address] [place] [address] Advice; Forms Request Allergies Active Allergy Reactions Criticality [...] Additional Information Patient not taking.Reported on 08/17/2023 Hospital, Clinic, or Other Facility Administered Medication [...] Undiagnosed cardiac murmurs 11/29/2001 03/02/2017 Overview: Not [place] on 11/29/01 documented as of this encounter (statuses as of 08/24/2023) Immunizations Name Administration Dates Next Due HEP A - Hepatitis A (Adult > 18 yrs) 06/06/2020 Pneumococcal Conjugate Vacci ne, 20-valent ([id number]) 06/24/2022 Seasonal Influenza Virus Vac cine, Unspecified [...] Encounter - Leeanna Mcdermott LPN - 05/29/2023 4:07 PM EST Left a message on Carmen's VM to return call. Please advise that [facility] was contacted and they stated the patient should have a paper that is to be given to the facility they wish to have an MRI done through. We do not have any paperwork here and it is the patients responsibility to have this information done per [facility]. Also make aware that the [place] office is not able to perform MRI services and this would need to be done at [facility] and would need to contact that clinic to complete form. * Telephone Encounter - Toby Paz MD - 05/26/2023 6:56 PM EST I have not seen pt for over a year. I am not aware of having any paperwork for him. I am not sure why my tax ID and NPI are needed. I have not ordered any MRIs for him and have never needed to provide this to an orthopaedic office in the past. Please see if [facility] can clarify what they need from us and why. * Telephone Encounter - Dayana Menjivar LPN - 05/26/2023 4:58 PM EST This this on your desk? * Telephone Encounter - Guadalupe Charles OSA - 05/25/2023 10:58 AM EST Carmen ( SO ) called to check status of paperwork to go to [place] . [facility] , They need the tax id number and Npi . He is to have an MRI done at that facility . They have not received the information . She will call back with fax number documented in this encounter Plan of Treatment Upcoming Encounters Date Type Department Care Team (Latest Contact Info) Description 08/31/2023 7:00 AM EDT Appointment [facility], [address] [facility] [address] 08/31/2023 7:45 AM EDT Appointment MRI, [address] [place] [address] 08/31/2023 2:30 PM EDT Hospital Encounter [place] [facility] ROOM [facility] [address] [facility] [place] [address] c, [facility] And Out Surgery [address] [facility] [place] [address] 08/31/2023 2:30 PM EDT - 08/31/2023 4:40 PM EDT Surgery OR [facility], OPERATING ROOM [facility] [address] [facility] [place] [address] [facility], In And Out Surgery [address] [facility] [place] [place] [address] ANESTHESIA FOR NON-INVASIVE IMAGING (MRI OR CT) 09/11/2023 3:30 PM EDT Office Visit Interventional Pain Center, [facility] [address] [place] [address] Sita Molina PA-C [address] [place] [address] 11/21/2023 5:40 PM EDT Office Visit [facility] [address] [place] [address] Toby Paz MD [address] [place] [address] 12/11/2023 1:04 PM EDT Hospital Encounter OR [facility], Operating Room, [facility] - 4th Floor [address] [place] [address] Ki Huang MD [address] [place] [address] 12/11/2023 1:04 PM EDT - 12/11/2023 1:54 PM EDT Surgery OR [facility], Operating Room, [facility] - 4th Floor [address] [place] [address] Ki Huang MD [address] [place] [address] ESOPHAGOGASTRODUODENOSCOPY (EGD), FLEXIBLE, TRANSORAL, DIAGNOSTIC Scheduled Procedures Name Priority Associated Diagnoses Date/Ti me ANESTHESIA FOR NON-INVASIVE IMAGING (MRI OR CT) Pain in left hip Liver lesion 08/31/2023 2:30 PM EDT ESOPHAGOGASTRODUODENOSCOPY ( EGD), FLEXIBLE, TRANSORAL, DIAGNOSTIC Cirrhosis (HCC) 12/11/2023 1:04 PM EDT COLONOSCOPY FLEXIBLE PROXIMA L DIAGNOSTIC [...] filedocumented as of this encounter Care Teams Wildlife Ecologist Relationship Specialty Start Date End Date Oesterling, Toby R, MD [address] [facility] [place] [phone] PCP - General Family Medicine 11/25/14 documented as of this encounter
--- OUTSIDE RECORDS SUMMARY | 2023-09-30 15:27 | External Medical Summary | Summary of Care ---
Author Name Unknown Organization [facility] Address [address] [place] [address] Phone [phone] Care Team Providers Care Geothermal Powerplant Mechanic Name Role Phone Kiley Singh MD Primary Care Provider +1- [phone] Reason for Visit * Reason Onset Date Comments Medication Refill 08/15/2023 Encounter Details Date Type Department Care Team (Late st Contact Info) Description 08/15/2023 Refill [facility] [address] [place] [address] Kiley Singh MD [address] [place] [address] Avascular necrosis of bone of left hip (HCC) Allergies Active Allergy Reactions Criticality Noted Date Comments Other Allergy (See Comments) Anaphylaxis High 06/21/2018 Bee stings- swelling documented as of this encounter (statuses as of 08/16/2023) Medications Medication Sig Dispensed Refills Start Date [...] Pain, Severe. 30 Tablet 0 08/16/2023 Active traMADol HCl 50 MG Oral Tablet (Ultram)Indicatio ns:Avascular necrosis of bone of left hip (HCC) Take 1 Tablet by mouth every 8 hours as needed for Pain, Severe. 30 Tablet 0 07/21/2023 4 Discontinue d(Refill) Hospital, Clinic, or Other Facility Administered Medication Ordered Dose Route Frequency Start Date End Date Status albuterol sulfate (PROVENTIL) (2.5 MG/3ML) 0.083% inhalation solution 2.5 mgIndications:SOB (shortness of breath) 2.5 mg NEBULIZER Q4H PRN 05/10/2018 Act guzman documented as of this encounter (statuses as of 08/16/2023) Active Problems Problem Noted Date Diagnosed Date [...] as of this encounter (statuses as of 08/16/2023) Resolved Problems Problem Noted Date Diagnosed Date [...] as of this encounter (statuses as of 08/16/2023) Immunizations Name Administration Dates Next Due HEP A - Hepatitis A (Adult > 18 yrs) 06/06/2020 Pneumococcal Conjugate Vacci ne, 20-valent ([id number]) 06/24/2022 Seasonal Influenza Virus Vac cine, Unspecified [...] Telephone Encounter - Kiley Singh MD - 08/16/2023 7:46 PM EDTSigned Prescriptions: Disp Refills traMADol HCl 50 MG Oral Tablet (Ultram) 30 Tab*0 Sig: Take 1 Tablet by mouth every 8 hours as needed for Pain, Severe.Authorizing Provider: KILEY SINGH------ * Telephone Encounter - Maylin Segura, [facility] - 08/16/2023 3:54 PM EDTPending Prescriptions: Disp Refills traMADol HCl 50 MG Oral Tablet (Ultram) 30 Tab*0 Sig: Take 1 Tablet by mouth every 8 hours as needed for Pain, Severe. * Telephone Encounter - Maylin Segura [facility] - 08/16/2023 3:53 PM EDT I have reviewed the patients controlled substance dispensing history in the Prescription Drug Monitoring Program in compliance with the [facility] regulations before prescribing a controlled substance. PDMP checked on 08/16/2023. Pending Prescriptions: Disp Refills traMADol HCl 50 MG Oral Tablet (Ultram) 30 Tab*0 Sig: Take 1 Tablet by mouth every 8 hours as needed for Pain, Severe. Last Visit: 07/27/2023 (in office), Visit date not found (telemedicine) Next Visit: 08/17/2023 Date medication was last filled: 07/21/23 Date medication is due for refill: 07/31/23 Pharmacy: [id number] [facility] Is this request for a controlled substance? [...] screening results are reflexed to confirmatory testing. *Note: Due to a large number of results and/or encounters for the requested time period, some results have not been displayed. A complete set of results can be found in Results Review. Please approve if appropriate. Thank you, Maylin Segura, PharmD Clinical Pharmacist [facility] ([facility]) 08/16/23 3:53 PM [phone] documented in this encounter Plan of Treatment Upcoming Encounters Date Type Department Care Team (Latest Contact Info) Description 08/17/2023 10:40 AM EDT Office Visit [facility] [address] [place] [phone] Rao Ochoa MD [address], [place] [phone] 08/31/2023 7:00 AM EDT Appointment [facility] RIVER[facility] [address] [place] [address] 08/31/2023 7:45 AM EDT Appointment MRI, [place] [address] [place] [address] 08/31/2023 3:20 PM EDT Hospital Encounter OR C, OPERATING ROOM [facility] [address] [place] [address] [facility], In And Out Surgery [address] [place] [address] 08/31/2023 3:20 PM EDT - 08/31/2023 5:55 PM EDT Surgery OR [facility], OPER[facility] ROOM [facility] [address] [place] [address] c, In And Out Surgery [address] [place] [address] ANESTHESIA FOR NON-INVASIVE IMAGING (MRI OR CT) 09/01/2023 1:30 PM EDT Hospital Encounter ENDO [facility], Endoscopy Room [facility] [address] [place] [phone] Lopez Shi MD [address] [place] [address] 09/01/2023 1:30 PM EDT - 09/01/2023 2:00 PM EDT Surgery ENDO [facility], Endoscopy Room [facility] [address] [place] [address] Lopez Shi MD [address] [place] [address] ESOPHAGOGASTRODUODENOSCOPY (EGD), FLEXIBLE, TRANSORAL, DIAGNOSTIC 09/11/2023 3:30 PM EDT Office Visit Interventional [facility] Center, [facility] [address] [place] [address] Sita Molina PA-C [address] [place] [address] 11/21/2023 5:40 PM EDT Office Visit [facility] [address] [place] [phone] Kiley Singh MD [address] [place] [address] Scheduled Procedures Name Priority Associated Diagnoses Date/Ti [...] Colorectal Cancer Screening 06/30/2024 GFR 08/09/2024 08/10/2023, 05/2023, 07/10/2023, Additional history exists Albumin/Creatinine Ratio [...] necrosis of bone of left hip (HCC) Pain in left hip Pain in joint, pelvic region and thigh Liver lesion Other specified disorders of liver Cirrhosis (HCC) Cirrhosis of liver without mention of alcohol documented in this encounter Care Teams Geothermal Powerplant Mechanic Relationship Specialty Start Date End Date Kiley Singh MD [address] [place] [address] PCP - General Family Medicine 11/25/14 documented as of this encounter
--- OUTSIDE RECORDS SUMMARY | 2023-09-30 15:28 | External Medical Summary ---
Author Name Unknown Address Unknown Organization [id number]:[facility] [place] [address] [place] [address] Laboratory Report Ordering Provider Test Date Status LIZA LAROSE 08/03/2023 11:20:40 Final Warfarin Therapy
INR: 2 .0-3.0 conventional anticoagulation
INR: 2.5- 3.5 high intensity anticoagulation Observation Date Value Abnormality Reference (Units ) Status PT 08/03/2023 11:20:40 17.2 Above high normal 11 .6-15.2 (seconds) Final INR 08/03/2023 11:20:40 1.4 Above high normal 0. 8-1.2 Final Performing Location [facility] [address] [place] [address]
--- OUTSIDE RECORDS SUMMARY | 2023-09-30 15:28 | External Medical Summary | Summary of Care ---
Author Name Unknown Organization [facility] Address [address] [place] [address] Phone [phone] Care Team Providers Care Nut Roaster Helper Name Role Phone Toby Paz MD Primary Care Provider +1- [phone] Reason for Visit * Reason Onset Date Comments Education 08/07/2023 Encounter Details Date Type Department Care Team (Late st Contact Info) Description 08/07/2023 Telephone Pre Surgery [facility] [address] [place] [address] [facility] [address] [place] [address] Education Allergies Active Allergy Reactions Criticality Noted Date Comments Other Allergy (See Comments) Anaphylaxis High 06/21/2018 Bee stings- swelling documented as of this encounter (statuses as of 08/07/2023) Medications Medication Sig Dispensed Refills Start Date [...] as of this encounter (statuses as of 08/07/2023) Active Problems Problem Noted Date Diagnosed Date [...] as of this encounter (statuses as of 08/07/2023) Resolved Problems Problem Noted Date Diagnosed Date Resolved Date History of alcohol abuse 05/22/2023 Alcohol dependence, uncomplicated 01/17/2023 05/22/2023 Avascular necrosis of bone of hip 05/10/2022 05/22/2023 Chronic alcohol abuse 06/17/20212023 Facial swelling 06/09/2017 08/07/2019 Urticaria 06/09/2017 08/07/2019 Intestinal obstruction 05/09/201203/02 CLASSICAL MIGRAINE WITHOU ME NTION OF INTRACTABLE MIGRAINE 11/29/2001 08/07/2019 Undiagnosed cardiac murmurs 11/29/2001 03/02/2017 Overview: Not [place] on 11/29/01 documented as of this encounter (statuses as of 08/07/2023) Immunizations Name Administration Dates Next Due HEP A - Hepatitis A (Adult > 18 yrs) 06/06/2020 Pneumococcal Conjugate Vacci ne, 20-valent ([id number]) 06/24/2022 Seasonal Influenza Virus Vac cine, Unspecified [...] Telephone Encounter - Keyanna Gordon CRNP - 08/07/2023 3:38 PM EDT We really need a liver MRI on this pt. Would it be possible to get this during the same episode of sedation for the back MRI? Liver MRI is for f/u US liver lesion. Order was placed today for [place]. Regarding risk for sedation, see Dr. Andrews visit in 04/06/23 prior to hip surgery. Overall, he isstable (MELD 13, no hepatic encephatlopathy since June 2023 and that episode was brief) so improved since undergoing the hip surgery w/o complications, so would expect that he would do well. YOGESH Orta * Telephone Encounter - Quynh Sanchez LPN - 08/07/2023 10:34 AM EDT Patient is scheduled for 08/31/23 under anesthesia on mri. H&P is required within 30 days of anesthesia. No H&P on file. Called pt and message left on voicemail. MYG message sent as well. Dr Paz could you have your staff reach out and schedule this pt for his H&P for anesthesia? Any help would be truly appreciated. Thank you very much. documented in this encounter Plan of Treatment Upcoming Encounters Date Type Department Care Team (Latest Contact Info) Description 08/31/2023 7:00 AM EDT Appointment [facility], [place] [address] [facility] [place] [address] 08/31/2023 11:30 AM EDT Hospital Encounter OR [facility], OPERATING ROOM [facility], [facility] [address] [facility] [address] [facility], In And Out Surgery [address] [facility] [place] [address] 08/31/2023 11:30 AM EDT - 08/31/2023 1:20 PM EDT Surgery OR [facility], OPERATING ROOM [facility], [facility] [address] [facility] [address] [facility], In And Out Surgery [address] [facility] [place] [address] ANESTHESIA FOR NON-INVASIVE IMAGING (MRI OR CT) 09/01/2023 1:30 PM EDT Hospital Encounter ENDO [facility], Endoscopy Room [facility] [address] [place] [phone] Lopez Shi MD [address] [place] [address] 09/01/2023 1:30 PM EDT - 09/01/2023 2:00 PM EDT Surgery ENDO [facility], Endoscopy Room [facility] [address] [place] [address] Lopez Shi MD [address] [place] [address] ESOPHAGOGASTRODUODENOSCOPY (EGD), FLEXIBLE, TRANSORAL, DIAGNOSTIC 09/04/2023 3:30 PM EDT Office Visit Orthopaedics [facility] [address] [place] [address] Velvet Valenzuela MD [address] [place] [address] 09/11/2023 3:30 PM EDT Office Visit Interventional Pain Center, [facility] [address] [place] [address] Sita Molina PA-C [address] [place] [address] 11/21/2023 5:40 PM EDT Office Visit [facility] [address] [place] [phone] Toby Paz MD [address] [place] [address] Scheduled Procedures Name Priority Associated Diagnoses Date/Ti me ANESTHESIA FOR NON-INVASIVE IMAGING (MRI OR CT) Pain in left hip 08/31/2023 11:30 AM EDT ESOPHAGOGASTRODUODENOSCOPY ( EGD), FLEXIBLE, TRANSORAL, DIAGNOSTIC Cirrhosis (HCC) 09/01/2023 1:30 PM EDT COLONOSCOPY FLEXIBLE PROXIMA L DIAGNOSTIC Recall History of colon polyps Health Maintenance Due Date Last Done Comments Cologuard 2009 Fecal Occult Blood Test 2009 Sigmoidoscopy 2009 COVID-19 Vaccine ( season) 2022 Colonoscopy 06/30/2024 06/30/2021, 06/03, 05/30/2019, Additional history exists Colorectal Cancer Screening 06/30/2024 GFR 08/02/2024 08/03/2023, 0411/2023, 06/06/2023, Additional history exists Albumin/Creatinine Ratio 07/09/2026 [...] filedocumented as of this encounter Care Teams Nut Roaster Helper Relationship Specialty Start Date End Date Toby Paz MD [address] [place] [address] PCP - General Family Medicine 11/25/14 documented as of this encounter
--- OUTSIDE RECORDS SUMMARY | 2023-09-30 15:28 | External Medical Summary | Summary of Care ---
Author Name Unknown Organization [facility] Address [address] [place] [address] Phone [phone] Care Team Providers Care Hydraulic Riveter Name Role Phone Toby Paz MD Primary Care Provider [phone]- [phone] Reason for Visit * Reason Onset Date Comments Education 08/07/2023 Encounter Details Date Type Department Care Team (Late st Contact Info) Description 08/07/2023 Telephone Pre Surgery [facility] [address] [place] [address] [facility] [address] [place] [address] Education Allergies Active Allergy Reactions Criticality Noted Date Comments Other Allergy (See Comments) Anaphylaxis High 06/21/2018 Bee stings- swelling documented as of this encounter (statuses as of 08/09/2023) Medications Medication Sig Dispensed Refills Start Date [...] as of this encounter (statuses as of 08/09/2023) Active Problems Problem Noted Date Diagnosed Date [...] ischemic heart disease 002 Overview: father had MS's in 40's Gastroesophageal reflux disease with esophagitis documented as of this encounter (statuses as of 08/09/2023) Resolved Problems Problem Noted Date Diagnosed Date Resolved Date History of alcohol abuse 05/22/2023 Alcohol dependence, uncomplicated 01/17/2023 05/22/2023 Avascular necrosis of bone of hip 05/10/2022 05/22/2023 Chronic alcohol abuse 06/17/20212023 Facial swelling 06/09/2017 08/07/2019 Urticaria 06/09/2017 08/07/2019 Intestinal obstruction 05/09/201203/02 CLASSICAL MIGRAINE WITHOU ME NTION OF INTRACTABLE MIGRAINE 11/29/2001 08/07/2019 Undiagnosed cardiac murmurs 11/29/2001 03/02/2017 Overview: Not [place] on 11/29/01 documented as of this encounter (statuses as of 08/09/2023) Immunizations Name Administration Dates Next Due HEP A - Hepatitis A (Adult > 18 yrs) 06/06/2020 Pneumococcal Conjugate Vacci ne, 20-valent ([id number]) 06/24/2022 Seasonal Influenza Virus Vac cine, Unspecified [...] encounter Miscellaneous Notes * Telephone Encounter - Quynh Sanchez LPN - 08/09/2023 11:53 AM EDT Liver MRI added to 08/31/23. * Telephone Encounter - Maylin Sutton OSA - 08/08/2023 8:40 AM EDT Done. 08/08/2023 * Telephone Encounter - Toby Paz MD - 08/08/2023 7:33 AM EDT Looks like [facility] is requesting an office visit for H+P within 30 days of MRI under anesthesia scheduled for 08/31/23 at [facility]. Please contact and offer with any provider. * Telephone Encounter - Keyanna Gordon CRNP - 08/07/2023 3:38 PM EDT We really need a liver MRI on this pt. Would it be possible to get this during the same episode of sedation for the back MRI? Liver MRI is for f/u US liver lesion. Order was placed today for [facility]. Regarding risk for sedation, see Dr. Andrews visit in 04/06/23 prior to hip surgery. Overall, he isstable (MELD 13, no hepatic encephatlopathy since June 2023 and that episode was brief) so improved since undergoing the hip surgery w/o complications, so would expect that he would do well. YOGESH Otra * Telephone Encounter - Quynh Sanchez LPN - 08/07/2023 10:34 AM EDT Patient is scheduled for 08/31/23 under anesthesia on mri. H&P is required within 30 days of anesthesia. No H&P on file. Called pt and message left on voicemail. [employer] message sent as well. Dr Paz could you have your staff reach out and schedule this pt for his H&P for anesthesia? Any help would be truly appreciated. Thank you very much. documented in this encounter Plan of Treatment Upcoming Encounters Date Type Department Care Team (Latest Contact Info) Description 08/10/2023 10:20 AM EDT Office Visit [facility] [address] [facility] [place] [phone] Rao Ochoa MD [address] [facility] [address] 08/10/2023 11:00 AM EDT Laboratory Laboratory, [place] [address] [facility] [phone] [facility] [address] [place] [facility] [place] [address] 08/31/2023 7:00 AM EDT Appointment MRI, [place] [address] [place] [address] 08/31/2023 7:45 AM EDT Appointment [facility] [address] [place] [address] 08/31/2023 11:30 AM EDT Hospital Encounter OR [facility], OPERATING ROOM [facility] [address] [facility] [place] [address] [facility] In And [place] Surgery [address] [place] [address] 08/31/2023 11:30 AM EDT - 08/31/2023 2:05 PM EDT Surgery OR [facility], OPERATING ROOM [facility] [address] [place] [address] [facility], In And Out Surgery [address] [facility] [place] [address] ANESTHESIA FOR NON-INVASIVE IMAGING (MRI OR CT) 09/01/2023 1:30 PM EDT Hospital Encounter ENDO [facility], Endoscopy Room [facility] [address] [place] [address] Lopez Shi MD [address] [place] [address] 09/01/2023 1:30 PM EDT - 09/01/2023 2:00 PM EDT Surgery ENDO [facility], Endoscopy Room [facility] [address] [place] [address] Lopez Shi MD [address] [place] [address] ESOPHAGOGASTRODUODENOSCOPY (EGD), FLEXIBLE, TRANSORAL, DIAGNOSTIC 09/04/2023 3:30 PM EDT Office Visit Orthopaedics [facility] [address] [place] [address] Velvet Valenzuela MD [address] [place] [address] 09/11/2023 3:30 PM EDT Office Visit [facility] Center, [facility] [address] [place] [address] Sita Molina PA-C [address] [place] [address] 11/21/2023 5:40 PM EDT Office Visit [facility] [address] [facility] [phone] Toby Paz MD [address] [place] [address] Scheduled Procedures Name Priority Associated Diagnoses Date/Ti [...] filedocumented as of this encounter Care Teams Hydraulic Riveter Relationship Specialty Start Date End Date Toby Paz MD [address] [place] [address] PCP - General Family Medicine 11/25/14 documented as of this encounter
--- OUTSIDE RECORDS SUMMARY | 2023-09-30 15:28 | External Medical Summary ---
Author Name Unknown Address Unknown Organization K01:[facility]AT[facility] - [address] [place] [address] Laboratory Report Ordering Provider Test Date Status BRENT HO 08/03/2023 11:20:40 Final Observation Date Value Abnormality Reference (Units ) Status Uric Acid 08/03/2023 11:20:40 6.4 3.4-7.0 (m g/dL) Final Performing Location LAB[facility]ATORY [facility] - [address] [place] [address]
--- OUTSIDE RECORDS SUMMARY | 2023-09-30 15:28 | External Medical Summary | Summary of Care ---
Author Name Unknown Organization [facility] Address [address] [facility] [address] Phone [phone] Care Team Providers Care Engraved Roller Inspector Name Role Phone Toby Paz MD Primary Care Provider +1- [phone] Reason for Referral * Precert (Within 10 days (routine)) - Pending Review Specialty Diagnoses / Procedures Referred By Pj hernandez Referred To Contact Radiology Diagnoses Liver lesion Procedures MRI LIVER W WO CONTRAST Keyanna Gordon CRNP [address] [place] [address] Referral ID Status Reason Start Date Expiration Date V isits Requested Visits Authorized [id number] Pending Review 08/07/2023 999 999 Reason for Visit * Reason Comments Follow Up Cirrhosis Encounter Details Date Type Department Care Team (Latest Contact Info) Description 08/07/2023 3:00 PM EDT Office Visit Gastroenterology, [facility] [address] [place] [address] Keyanna Gordon CRNP [address] [place] [address] Liver lesion*; Esophageal varices without bleeding, unspecified esophageal varices type (HCC); Iron deficiency anemia due to chronic blood loss; Hepatic encephalopathy (HCC) Allergies Active Allergy Reactions Criticality Noted [...] 1 Drop before bedtime. 0 07/10/2023 Active Spironolactone 25 MG Oral Tablet (Aldactone) Take 1 Tablet by mouth in the morning. 90 Tablet 3 07/07/2023 4 Discontinue d(Medicatio n List Clean Up) Hospital, Clinic, or Other [...] Undiagnosed cardiac murmurs 11/29/2001 03/02/2017 Overview: Not [place] on 11/29/01 documented as of this encounter (statuses as of 08/07/2023) Immunizations Name Administration Dates Next Due HEP A - Hepatitis A (Adult > 18 yrs) 06/06/2020 Pneumococcal Conjugate Vacci ne, 20-valent ([id number]) 06/24/2022 Seasonal Influenza Virus Vac cine, Unspecified [...] Sign Reading Time Taken Comments Blood Pressure 109/54 08/07/2023 2:54 PM EDT Pulse 68 08/07/2023 2:54 PM EDT Temperature 36.8 C (98.2 F) 08/07/2023 2:54 PM ED T Respiratory Rate 18 08/07/2023 2:54 PM EDT Oxygen Saturation 96% 08/07/2023 2:54 PM EDT Inhaled Oxygen Concentration - - Weight 84.5 kg (186 lb 3.2 oz) 08/07/2023 2:54 P M EDT Height - - Body Mass Index 27.5 05/10/2023 5:59 PM EST documented in this encounter Functional Status Functional Status Response Date of Assess ment Does this person have seriou s difficulty walking or climbing stairs? Yes 08/23/2021 documented as of this encounter Progress Notes * Keyanna Gordon CRNP - 08/07/2023 2:44 PM EDT CC: Recheck cirrhosis HPI: Recall that year old male with history of migraines, bowel obstruction, HTN, GERD, DDD and decompensated ETOH cirrhosis complicated by EV, ascites, and HE. He also suffers from chronic orthopedic pain. C/o dizziness, hands/feet pain, tiredness, abdominal bloating and enlarging/painful breasts. Today, compared to previous, he is mentally alert, able to make jokes, able to carry on a detailed conversation. His fiance says that he has been stable, and she prefers not to change any meds at this time. Screenings: Colonoscopy 2021: - The examined colon appeared normal. - One 4 mm polyp in the rectum, removed with a cold biopsy forceps. Resected and retrieved. - The examination was otherwise normal on direct and retroflexion views. Complications: Hepatic Encephalopathy: Maintained on Rifixamin 550mg BID and Lactulose w instructions to titrate to 3BMs/day. Most recent admission for [facility] in June 2023. Varices: EGD July 2022: Grade I EV, PHG. Has never had a history of variceal bleeding. Ascites: twan lasix 40 mg daily (script says 20 daily but pt/fiance say has been on 40 daily for months) and aldactone 25 mg daily. He has never required a paracentesis in the past. Ascites is always well controlled. He is following a low salt diet. Liver masses: US and MRI in Jan 2022 w LR4 lesion but bx benign ->downgraded. MRI in Apr w new LIRADs 2-> downgraded to cysts on October MRI. US June 2023 w same lesion but smaller than previous. MRI Liver October 2022. Morphological changes of [...] 3. Additional findings and details as above. US June 2023: 1. Cirrhosis with prominent collateral vessels noted medial to the right hepatic lobe. 2. An isoechoic to slightly hyperechoic right hepatic lobe lesion measures 3.2 x 3.0 x 2.4 cm (11.5cc), previously 3.9 x 2.6 x 2.5 cm (12.6 cc) on prior ultrasound dated 01/26/2022, not significantly changed in volume but still indeterminate. No correlate for this lesion was identified on the mostrecent MRIs dated 10/18/2022 and 04/22/2022, though a possible correlate for this lesion was reported on an earlier MRI dated 12/30/2021. 3. Trace ascites. MELD 3.0: 13 at 08/03/2023 11:20 AM Calculated from: Serum Creatinine: 0.9 mg/dL (Using min of 1 mg/dL) at 08/03/2023 11:20 AM Serum Sodium: 140 mmol/L (Using max of 137 mmol/L) at 08/03/2023 11:20 AM Total Bilirubin: 2.2 mg/dL at 08/03/2023 11:20 AM Serum Albumin: 3.8 g/dL (Using max of 3.5 g/dL) at 08/03/2023 11:20 AM INR(ratio): 1.4 at 08/03/2023 11:20 AM Age at listing (hypothetical): 58 years Sex: Male at 08/03/2023 11:20 AM Varices: EGD July 2022: Grade I EV, PHG. Has never had a history of variceal bleeding. Ascites: Maintained on lasix 40 mg daily and aldactone 25 mg daily. He has never required a paracentesis in the past. Ascites is always well controlled. He is following a low salt diet. Liver masses: US and MRI in Jan 2022 w LR4 lesion but bx benign ->downgraded. MRI in Apr new LIRADs 2-> downgraded to cysts on [...] findings and details as above. EXAM: BP 109/54 | Pulse 68 | Temp 36.8 C (98.2 F) (Infrared ) | Resp 18 | Wt 84.5 kg (186 lb 3.2 oz) | SpO2 96% | BMI 27.50 kg/m | BSA 2.03 m GENERAL: 58 year old male well developed and well nourished in no acute distress Chest: hypertrophic/tender breasts bilat SKIN: no rashes, ulcers, + few spider angiomata HEENT: normocephalic, sclera clear, pharynx normal NECK: supple, no lymphadenopathy, no masses or thyroid enlargement LUNGS: clear to auscultation anterior and posterior HEART: regular rate & rhythm, no murmurs and no gallops ABDOMEN: significant abdominal scarring from prior surgeries, no ascites, normo- active bowel sounds, soft, non-tender, + mild gaseous distention, non-distended no masses, no hepatosplenomegaly, no rebound or guarding, no bruits EXTREMITIES: no palmar erythema, no edema, no skin discoloration, no clubbing, no cyanosis NEURO: no lateralizing findings, Sensory/Motor grossly normal IMPRESSION/RECOMMENDATIONS: 58 year old male with Liver lesion (Primary) - MRI LIVER W WO CONTRAST; Future; Expected date: 08/07/2023 - has difficulty laying still for MRIs due to back/hip pain. An MRI of the spine is arranged under sedation for [place]. 5/6 pre-anesthesia visit addended asking if Liver MRI can be completed at thesame time. Esophageal varices without bleeding, unspecified esophageal varices type (HCC) - doesn't tolerate BB->dizziness. Hx of Iron deficiency anemia, improved. Hx of hepatic encephalopathy. Ascites/peripheral edema - currently minimal ascites and c/o breast enlargement - will Dc the spironolactone; continue the lasix 40mg daily. Pt has been eval by [facility] for liver transplant and has an appt w [facility] for transplant as well. Recheck here in GI clinic in 3 months and prn. Follow Up: Return in about 3 months (around 11/07/2023). I spent a total of 30 minutes [...] in this encounter Nursing Notes * Leeanna Tijerina RN - 08/07/2023 2:53 PM EDT Chief Complaint Patient presents with Follow Up Cirrhosis Here with significant other. Has pain in R side of abdomen that radiates into back. Has been havingsome confusion. Moving bowels every time he uses Lactulose. Using this 2-4 times a day. Very fatigued. Feels that abdomen is more distended. documented in this encounter Plan of Treatment Upcoming Encounters Date Type Department Care Team (Latest Contact Info) Description 08/31/2023 7:00 AM EDT Appointment [facility], [place] [address] [place] [address] 08/31/2023 11:30 AM EDT Hospital Encounter [facility], OPERATING ROOM [facility] [address] [place] [address] [facility], In And Out Surgery [address] [place] [address] 08/31/2023 11:30 AM EDT - 08/31/2023 1:20 PM EDT Surgery OR C, OPERATING ROOM [facility] [address] [place] [address] [facility], In [facility] Out Surgery [address] [facility] [place] [address] ANESTHESIA FOR NON-INVASIVE IMAGING (MRI OR CT) 09/01/2023 1:30 PM EDT Hospital Encounter ENDO [facility], Endoscopy Room [facility] [address] [place] [phone] Lopez Shi MD [address] [place] [address] 09/01/2023 1:30 PM EDT - 09/01/2023 2:00 PM EDT Surgery ENDO [facility], Endoscopy Room [facility] [address] [place] [phone] Lopez Shi MD [address] [place] [address] ESOPHAGOGASTRODUODENOSCOPY (EGD), FLEXIBLE, TRANSORAL, DIAGNOSTIC 09/04/2023 3:30 PM EDT Office Visit Orthopaedics [facility] [address] [place] [address] Velvet Valenzuela MD [address] [place] [address] 09/11/2023 3:30 PM EDT Office Visit [facility], [facility] [address] [place] [address] Sita Molina PA-C [address] [place] [address] 11/21/2023 5:40 PM EDT Office Visit [facility] [address] [facility], [place] [phone] Toby Paz MD [address] [facility], [place] [address] Scheduled Orders Name Type Priority Associated Diagnoses Orde r Schedule MRI LIVER W WO CONTRAST Medical Imaging Routine Liver lesion Expected: 08/07/2023, Expires: 09/06/2024 Scheduled Procedures Name Priority Associated Diagnoses Date/Ti [...] Colorectal Cancer Screening 06/30/2024 GFR 08/02/2024 08/03/2023, 040 11/2023, 06/06/2023, Additional history exists Albumin/Creatinine Ratio [...] as of this encounter Visit Diagnoses Diagnosis Liver lesion- Primary Other specified disorders of liver Esophageal varices without bleeding, unspecified esophageal varices type (HCC) Iron deficiency anemia due to chronic blood loss Iron deficiency anemia secondary to blood loss (chronic) Hepatic encephalopathy (HCC) Hepatic encephalopathy Pain in left hip Pain in joint, pelvic region and thigh Cirrhosis (HCC) Cirrhosis of liver without mention of alcohol documented in this encounter Care Teams Engraved Roller Inspector Relationship Specialty Start Date End Date Toby Paz MD [address] [place] [address] PCP - General Family Medicine 11/25/14 documented as of this encounter"
--- OUTSIDE RECORDS SUMMARY | 2023-09-30 15:28 | External Medical Summary | Summary of Care ---
Author Name Unknown Organization [facility] Address [address] [facility] [address] Phone [phone] Care Team Providers Care Tower Operator Name Role Phone Toby Paz MD Primary Care Provider [phone]- [phone] Reason for Visit * Reason Comments NEW PATIENT Right elbow * Evaluate & Treat - Unlimited Visits (Within 10 days (routine)) - Authorized Specialty Diagnoses / Procedures Referred By Contac t Referred To Contact Orthopaedic Surgery / Orthopedics Diagnoses Effusion of bursa of elbow, right Rao Ochoa MD [address] [place] [address] Referral ID Status Reason Start Date Expiration Date Visits Requested Visits Authorized [id number] Authorized Specialty Services Required 07/27/[phone] Encounter Details Date Type Department Care Team (Late st Contact Info) Description 07/31/2023 3:30 PM EDT Office Visit Orthopaedics [facility] [address] [facility] [place] [address] Velvet Valenzuela MD [address] [place] [address] Effusion of left olecranon bursa* Allergies Active Allergy Reactions Criticality Noted Date Comments Other Allergy (See Comments) Anaphylaxis High 06/21/2018 Bee stings- swelling documented as of this encounter (statuses as of 07/31/2023) Medications Medication Sig Dispensed Refills Start Date [...] at bedtime. 180 Tablet 3 07/07/2023 Active Spironolactone 25 MG Oral Tablet (Aldactone) Take 1 Tablet by mouth in the morning. 90 Tablet 3 07/07/2023 Active traMADol HCl 50 [...] as of this encounter (statuses as of 07/31/2023) Active Problems Problem Noted Date Diagnosed Date [...] as of this encounter (statuses as of 07/31/2023) Resolved Problems Problem Noted Date Diagnosed Date Resolved Date History of alcohol abuse 05/22/2023 Alcohol dependence, uncomplicated 01/17/2023 05/22/2023 Avascular necrosis of bone of hip 05/10/2022 05/22/2023 Chronic alcohol abuse 06/17/20212023 Facial swelling 06/09/2017 08/07/2019 Urticaria 06/09/2017 08/07/2019 Intestinal obstruction 05/09/201203/02 CLASSICAL MIGRAINE WITHOU ME NTION OF INTRACTABLE MIGRAINE 11/29/2001 08/07/2019 Undiagnosed cardiac murmurs 11/29/2001 03/02/2017 Overview: Not Daniels on 11/29/01 documented as of this encounter (statuses as of 07/31/2023) Immunizations Name Administration Dates Next Due HEP A - Hepatitis A (Adult > 18 yrs) 06/06/2020 Pneumococcal Conjugate Vacci ne, 20-valent ([id number]) 06/24/2022 Seasonal Influenza Virus Vac cine, Unspecified [...] as of this encounter Progress Notes * Velvet Valenzuela MD - 07/31/2023 3:39 PM EDT Mauro Liu is a 58 year old male who presents for consultation to [facility] for right Elbow injury/pain. Consult requested by Rao Ochoa MD. Mauro Liu is here with his/her History: Chief Complaint Patient presents with NEW PATIENT Right elbow Nursing Notes: Willa Ross, MED ASSIST 07/31/23 1524 Sign at exiting of workspace Patient presents today for right elbow. states since he has gotten the lump, his hands have been looking purple. Patient is a 58 year old right handed male here today with right elbow pain. Patient reports swelling on the end of his right elbow that has been present for about a week and a half. He does not recall any injury. It was only painful if he rests his elbow on something. He does not have any pain if he was just resting his arm by his side. No numbness or tingling. His is concerned about both of his hands looking purple. He was on disability. Does not work. Spends his days "resting" Review of systems: All others negative except those noted above in HPI. Review of patient's allergies indicates: Allergen Reactions Other Allergy (See Comments) Anaphylaxis Bee stings- swelling No outpatient medications have been marked as taking for the 07/31/23 encounter (Office Visit) with Velvet Valenzuela MD. Current Facility-Administered Medications for the 07/31/23 encounter (Office Visit) with Velvet Valenzuela MD Medication albuterol sulfate (PROVENTIL) (2.5 MG/3ML) 0.083% inhalation solution 2.5 mg Past Medical History: Diagnosis Date Abdominal pain [...] performed by Lopez Shi MD at ENDOSCOPY [facility] COLONOSCOPY, DIAGNOSTIC (RECTUM) 05/18/2018 adenomatous polyps, diverticulosis, repeat 1yr/COLONOSCOPY FLEXIBLE PROXIMAL DIAGNOSTIC performed by Lopez Shi MD at ENDOSCOPY [facility] COLONOSCOPY, DIAGNOSTIC (RECTUM) 05/30/2019 adenomatous polyps, diverticulosis, repeat 3 yrs / COLONOSCOPY FLEXIBLE PROXIMAL DIAGNOSTIC performed by Lopez Shi MD at [facility]COPY [facility] COLONOSCOPY, DIAGNOSTIC (RECTUM) 06/30/2021 1-4mm in rectum, otherwise normal / biopsies normal / 5 year recall / COLONOSCOPY FLEXIBLE PROXIMALDIAGNOSTIC performed by Jena Camargo MD at [facility] EGD, FLEXIBLE, DIAGNOSTIC 05/05/2014 normal bx/ESOPHAGOGASTRODUODENOSCOPY (EGD), FLEXIBLE, TRANSORAL, DIAGNOSTIC performed by Ki Huang MD at [facility] EGD, FLEXIBLE, DIAGNOSTIC 04/11/2016 Schatzki ring, hiatal hernia, gastritis/ESOPHAGOGASTRODUODENOSCOPY (EGD), FLEXIBLE, TRANSORAL, DIAGNOSTIC performed by Ki Huang MD at [facility] EGD, FLEXIBLE, DIAGNOSTIC 01/24/2018 w/ [facility] EGD, FLEXIBLE, DIAGNOSTIC 07/17/2018 normal biopsies/ESOPHAGOGASTRODUODENOSCOPY (EGD), FLEXIBLE, TRANSORAL, DIAGNOSTIC performed by Lopez Shi MD at [facility] EGD, FLEXIBLE, DIAGNOSTIC 07/07/2020 sm hiatal hernia / ESOPHAGOGASTRODUODENOSCOPY (EGD), FLEXIBLE, TRANSORAL, DIAGNOSTIC performed by Lopez Shi MD at [facility] EGD, FLEXIBLE, DIAGNOSTIC 09/03/2021 esophageal varices, repeat 1 yr / ESOPHAGOGASTRODUODENOSCOPY (EGD), FLEXIBLE, TRANSORAL, DIAGNOSTICperformed by Alen Garcia DO at [facility] EGD, FLEXIBLE, DIAGNOSTIC 07/06/2022 Portal hypertensive gastropathy, eso varices, mild-mod inflammation on bx / ESOPHAGOGASTRODUODENOSCOPY (EGD), FLEXIBLE, TRANSORAL, DIAGNOSTIC performed by Lopez Shi MD at [facility] EGD, W/ENDOSCOPIC US 06/26/2018 retained food, repeat study/ESOPHAGOGASTRODUODENOSCOPY (EGD), FLEXIBLE, TRANSORAL, ENDOSCOPIC ULTRASOUND performed by Lopez Shi MD at [facility] EGD, W/ENDOSCOPIC US 07/17/2018 sludge gallbladder/ESOPHAGOGASTRODUODENOSCOPY (EGD), FLEXIBLE, TRANSORAL, ENDOSCOPIC ULTRASOUND performed by Lopez Shi MD at [facility] IR BIOPSY 02/14/2022 LAPAROSCOPY; CHOLECYSTECTOMY UT ARTHRP ACETBLR/PROX FEM PROSTC AGRFT/ALGRFT Left 04/08/2023 REDUCTION OF 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 04/26/2012 Exploratory laparotomy with extensive lysis of adhesions and repair of small bowel serosal REMOVAL OF RUPTURED APPENDIX 1977 Appendectomy, Rupt Appendx+Abscess Social History Socioeconomic History Marital status: Single [...] on file 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 Estimated body mass index is 27.87 kg/m as calculated from the following: Height as of 05/10/23: 1.753 m (5' 9"). Weight as of 07/27/23: 85.6 kg (188 lb 11.2 oz). General: generally well-nourished and in no acute distress HEENT: normocephalic, atraumatic, sclera anicteric. Psych: mood and affect flat , cooperative Card: Peripheral pulses: normal in affected extremity (s) Resp: equal chest rise, non-tachypneic, non-labored breathing Skin: no rash, normal Neuro: Coordination: normal; Sensation: normal on affected extremity (s) MSK: Elbow Exam, bilateral Inspection: Prominent olecranon bursa without any overlying redness warmth or skin changes Palpation: Mildly tender over the olecranon bursa Range of motion: Range of motion 0-130 bilaterally, full pronation and supination Strength: 5/5 to elbow flexion-extension Sensation intact to light touch in the radial ulnar and median nerve distribution Radiology: (I have personally reviewed the films) Not indicated today Assessment and Plan: ICD-10-CM 1. Effusion of left olecranon bursa M25.422 58-year-old male with multiple medical problems seen today for left olecranon bursitis that has been present for a week and a half without any known injury. I discussed with the patient and his recommendation to proceed with conservative management given that it has only been present for a week and a half. We discussed compression, ice, Voltaren gel. Patient can not take any [id number] medications unfortunately due to his liver disease. We will have him follow up in about 1 month. If no improvement in symptoms in a month consider aspiration under sterile conditions. I did discuss with patient and his that if he starts to develop any redness or warmth in the area or worsening pain to return to the clinic sooner. The above assessment and plan were discussed at length. All questions were answered, and the patient expressed understanding. Velvet Valenzuela MD Primary Care Sports Medicine Orthopaedics [address] [address] documented in this encounter Nursing Notes * Willa Ross MED ASSIST - 07/31/2023 3:23 PM EDT Patient presents today for right elbow. states since he has gotten the lump, his hands have been looking purple. documented in this encounter Plan of Treatment Upcoming Encounters Date Type Department Care Team (Latest Contact Info) Description 08/07/2023 3:00 PM EDT Office Visit Gastroenterolog y [address] [place] [address] Keyanna Gordon CRNP [address] [place] [address] 08/31/2023 7:00 AM EDT Appointment [facility], [place] [address] [facility] [place] [address] 08/31/2023 11:30 AM EDT Hospital Encounter OR [facility], OPERATING ROOM [facility], [facility] [address] [place] [facility] [place] [address] Gmc, In And Out Surgery [address] [facility] [place] [address] 08/31/2023 11:30 AM EDT - 08/31/2023 1:20 PM EDT Surgery OR [facility], OPERATING ROOM [facility], [facility] [address] [facility] [place] [place] [address] Gmc, In And Out Surgery [address] [facility] [place] [address] ANESTHESIA FOR NON-INVASIVE IMAGING (MRI OR CT) 09/01/2023 1:30 PM EDT Hospital Encounter [facility], Endoscopy Room [facility] [address] [place] [phone] Lopez Shi MD [address] [place] [address] 09/01/2023 1:30 PM EDT - 09/01/2023 2:00 PM EDT Surgery [facility], Endoscopy Room [facility] [address] [place] [phone] Lopez Shi MD [address] [place] [address] ESOPHAGOGASTRODUODENOSCOPY (EGD), FLEXIBLE, TRANSORAL, DIAGNOSTIC 09/04/2023 3:30 PM EDT Office Visit Orthopaedics [facility] [address] [place] [address] Velvet Valenzuela MD [address] [place] [address] 09/11/2023 3:30 PM EDT Office Visit [facility] Center, [facility] [address] [place] [address] Sita Molina PA-C [address] [place] [address] 11/21/2023 5:40 PM EDT Office Visit [facility] [address] [place] [phone] Toby Paz MD [address] [place] [address] Scheduled Procedures Name Priority Associated Diagnoses Date/Ti me ANESTHESIA FOR NON-INVASIVE IMAGING (MRI OR CT) Pain in left hip 08/31/2023 11:30 AM EDT ESOPHAGOGASTRODUODENOSCOPY ( EGD), FLEXIBLE, TRANSORAL, DIAGNOSTIC Cirrhosis (HCC) 09/01/2023 1:30 PM EDT COLONOSCOPY FLEXIBLE PROXIMA L DIAGNOSTIC Recall History of colon polyps Scheduled Referrals Name Type Priority Associated Diagnoses Order Schedule ORTHOPAEDICS REFERRAL OP Referral Within 10 days (routine) Effusion of bursa of elbow, right Ordered: 07/27/2023 Health Maintenance Due Date Last Done Comments Cologuard 2009 Fecal Occult Blood Test 2009 Sigmoidoscopy 2009 COVID-19 Vaccine ( season) 2022 Colonoscopy 06/30/2024 06/30/2021, 06/03, 05/30/2019, Additional history exists Colorectal Cancer Screening 06/30/2024 GFR 07/09/2024 07/10/2023, 03/0 08/2023, 05/30/2023, Additional history exists Albumin/Creatinine Ratio 07/09/2026 07/10/2023 Diabetes Screening 07/09/2026 07/10/2023, 0 06/06/2023, 05/30/2023, Additional history exists DTaP,Tdap,and Td Vaccines (2 [...] as of this encounter Visit Diagnoses Diagnosis Effusion of left olecranon bursa- Primary Pain in left hip Pain in joint, pelvic region and thigh Cirrhosis (HCC) Cirrhosis of liver without mention of alcohol documented in this encounter Care Teams Tower Operator Relationship Specialty Start Date End Date Toby Paz MD [address] [place] [address] PCP - General Family Medicine 11/25/14 documented as of this encounter
--- OUTSIDE RECORDS SUMMARY | 2023-09-30 15:28 | External Medical Summary | Summary of Care ---
Author Name Unknown Organization [facility] Address [address] [facility] [place] [address] Phone [phone] Care Team Providers Care Shot Tube Machine Tender Name Role Phone Toby Paz MD Primary Care Provider +1- [phone] Encounter Details Date Type Department Care Team (Late st Contact Info) Description 08/01/2023 Orders Only PATIENT PORTAL DO NOT DELETE THIS DEPT USED BY [place] [id number] Allergies Active Allergy Reactions Criticality Noted Date Comments Other Allergy (See Comments) Anaphylaxis High 06/21/2018 Bee stings- swelling documented as of this encounter (statuses as of 08/01/2023) Medications Medication Sig Dispensed Refills Start Date [...] as of this encounter (statuses as of 08/01/2023) Active Problems Problem Noted Date Diagnosed Date [...] as of this encounter (statuses as of 08/01/2023) Resolved Problems Problem Noted Date Diagnosed Date Resolved Date History of alcohol abuse 05/22/2023 Alcohol dependence, uncomplicated 01/17/2023 05/22/2023 Avascular necrosis of bone of hip 05/10/2022 05/22/2023 Chronic alcohol abuse 06/17/20212023 Facial swelling 06/09/2017 08/07/2019 Urticaria 06/09/2017 08/07/2019 Intestinal obstruction 05/09/201203/02 CLASSICAL MIGRAINE WITHOU ME NTION OF INTRACTABLE MIGRAINE 11/29/2001 08/07/2019 Undiagnosed cardiac murmurs 11/29/2001 03/02/2017 Overview: Not Dare on 11/29/01 documented as of this encounter (statuses as of 08/01/2023) Immunizations Name Administration Dates Next Due HEP A - Hepatitis A (Adult > 18 yrs) 06/06/2020 Pneumococcal Conjugate Vacci ne, 20-valent ([id number]) 06/24/2022 Seasonal Influenza Virus Vac cine, Unspecified [...] 08/07/2023 3:00 PM EDT Office Visit Gastroenterolog [facility] [address] [place] [address] Keyanna Gordon CRNP [address] [address] 08/31/2023 7:00 AM EDT Appointment [place] RIVERA [address] [place] [address] 08/31/2023 11:30 AM EDT Hospital Encounter OR [facility], [facility]PER[facility] [address] [facility] [place] [phone] c, In And Out Surgery [address] [facility] [place] [phone] 08/31/2023 11:30 AM EDT - 08/31/2023 1:20 PM EDT Surgery OR [facility], [facility] [address] [facility] [place] [phone] c, In And Out Surgery [address] [facility] [place] [phone] ANESTHESIA FOR NON-INVASIVE IMAGING (MRI OR CT) 09/01/2023 1:30 PM EDT Hospital Encounter ENDO [facility], Endoscopy Room [facility] [address] [place] [phone] Lopez Shi MD [address] [place] [address] 09/01/2023 1:30 PM EDT - 09/01/2023 2:00 PM EDT Surgery ENDO [facility], Endoscopy Room [facility] [address] [place] [address] Lopez Shi MD [address] [place] [address] ESOPHAGOGASTRODUODENOSCOPY (EGD), FLEXIBLE, TRANSORAL, DIAGNOSTIC 09/04/2023 3:30 PM EDT Office Visit Orthopaedics [facility] [address] [place] [address] Velvet Valenzuela MD [address] [place] [address] 09/11/2023 3:30 PM EDT Office Visit Interventional Pain Center, [facility] [address] [place] [address] Sita Molina PA-C [address] [place] [address] 11/21/2023 5:40 PM EDT Office Visit [facility] [address] [facility] [phone] Toby Paz [facility] [address] [facility] [address] Scheduled Procedures Name Priority Associated Diagnoses Date/Ti [...] Colorectal Cancer Screening 06/30/2024 GFR 07/09/2024 07/10/2023, 08/2023, 05/30/2023, Additional history exists Albumin/Creatinine Ratio [...] filedocumented as of this encounter Care Teams Shot Tube Machine Tender Relationship Specialty Start Date End Date Toby Paz MD [address] [place] [address] PCP - General Family Medicine 11/25/14 documented as of this encounter
--- OUTSIDE RECORDS SUMMARY | 2023-09-30 15:28 | External Medical Summary ---
Author Name Unknown Address Unknown Organization [id number]:[facility] [place] [address] [facility] [place] [address] Laboratory Report Ordering Provider Test Date Status LIZA LAROSE 08/10/2023 11:09:53 Final Observation Date Value Abnormality Reference (Units ) Status BUN 08/10/2023 11:09:53 16 6-20 (mg/dL) Final Creatinine 08/10/2023 11:09:53 0.9 0.6-1.2 (mg/dL) Final Glomerular filtration rate/1.73 sq M.predicted [Volume Rate/Area] in Serum, Plasma or Blood by Creatinine-based formula (CKD-EPI) 08/10/2023 11:09:53 >90 >=60 (mL/min) Final eGFR is calculated based on the CKD-EPI 2020 equation Sodium 08/10/2023 11:09:53 141 135-146 (m mol/L) Final Potassium 08/10/2023 11:09:53 4.1 3.5-5.1 (m mol/L) Final Cl 08/10/2023 11:09:53 109 Above high normal 98 -107 (mmol/L) Final CO2 08/10/2023 11:09:53 23 22-32 (mmo l/L) Final Anion gap 08/10/2023 11:09:53 9 7-15 (mmol /L) Final Glucose 08/10/2023 11:09:53 89 70-120 (mg /dL) Final Albumin 08/10/2023 11:09:53 3.7 Below low normal 3.8 -5.0 (g/dL) Final AST (Aspartate aminotransferase) 08/10/2023 11:09:53 51 Above high normal 10-50 (U/L) Final Alk Phos 08/10/2023 11:09:53 245 Above high normal 35 -130 (U/L) Final Bilirubin, Total 08/10/2023 11:09:53 1.6 Above high no rmal <=1.2 (mg/dL) Final Calcium 08/10/2023 11:09:53 8.7 8.4-10.2 ( mg/dL) Final Protein 08/10/2023 11:09:53 6.2 6.0-8.3 (g /dL) Final ALT (Alanine aminotransferase) 08/10/2023 11:09:53 40 10-50 (U/L) Ryder joyce Performing Location [facility] [place] [address] [facility] [address]
--- OUTSIDE RECORDS SUMMARY | 2023-09-30 15:28 | External Medical Summary ---
Author Name Unknown Address Unknown Organization [id number][place] [place] [address] [place] [id number] Laboratory Report Ordering Provider Test Date Status LIZA LAROSE 08/03/2023 11:22:40 Final Observation Date Value Abnormality Reference (Units) Status Bacteria identified in Specimen by Culture 08/03/2023 11:22:40 No significant growth Final Test: Culture, Urine, Quanti tative
Specimen Source: Urine, Clean Catch
Specimen Type: Urine
Specimen Date: 08/03/2023 11:22 AM
Result Date: 08/04/2023 5:37 PM
Result Status: Final result
Resulting Lab: [facility] [place]
[address]
[place] [facility]

CULTURE

No significant growth

null Performing Location [facility] [place] [address] [place] [id number]
--- OUTSIDE RECORDS SUMMARY | 2023-09-30 15:28 | External Medical Summary | Summary of Care ---
Author Name Unknown Organization [facility] Address [address] [facility] [place] [address] Phone [phone] Care Team Providers Care [employer]field Redevelopment Specialist Name Role Phone Toby Paz MD Primary Care Provider +1- [phone] Reason for Visit * Reason Comments Outpatient Testing Encounter Details Date Type Department Care Team (Late st Contact Info) Description 08/03/2023 11:10 AM EDT Laboratory Laboratory, [place] [address] [place] [address] [place], Laboratory [address], [place] [phone] S/P hip replacement; Alcoholic cirrhosis of liver with ascites (HCC); Effusion of bursa of elbow, right Allergies Active Allergy Reactions Criticality Noted Date Comments Other Allergy (See Comments) Anaphylaxis High 06/21/2018 Bee stings- swelling documented as of this encounter (statuses as of 08/03/2023) Medications Medication Sig Dispensed Refills Start Date [...] as of this encounter (statuses as of 08/03/2023) Active Problems Problem Noted Date Diagnosed Date [...] as of this encounter (statuses as of 08/03/2023) Resolved Problems Problem Noted Date Diagnosed Date Resolved Date History of alcohol abuse 05/22/2023 Alcohol dependence, uncomplicated 01/17/2023 05/22/2023 Avascular necrosis of bone of hip 05/10/2022 05/22/2023 Chronic alcohol abuse 06/17/20212023 Facial swelling 06/09/2017 08/07/2019 Urticaria 06/09/2017 08/07/2019 Intestinal obstruction 05/09/201203/02 CLASSICAL MIGRAINE WITHOU ME NTION OF INTRACTABLE MIGRAINE 11/29/2001 08/07/2019 Undiagnosed cardiac murmurs 11/29/2001 03/02/2017 Overview: Not [place] on 11/29/01 documented as of this encounter (statuses as of 08/03/2023) Immunizations Name Administration Dates Next Due HEP A - Hepatitis A (Adult > 18 yrs) 06/06/2020 Pneumococcal Conjugate Vacci ne, 20-valent ([id number]) 06/24/2022 Seasonal Influenza Virus Vac cine, Unspecified [...] PM EDT Office Visit Gastroenterolog Johnna mathew [facility] [address] [facility] [place] [address] Keyanna Gordon CRNP [address] [place] [address] 08/31/2023 7:00 AM EDT Appointment Tianna RIVERA [address] [place] [address] 08/31/2023 11:30 AM EDT Hospital Encounter [facility], O[facility]ATING [facility] [address] [place] [address] [facility] [place] [address] [place] [address] 08/31/2023 11:30 AM EDT - 08/31/2023 1:20 PM EDT Surgery [place] [facility] [address] [place] [address] [facility] [place] [address] [place] [address] ANESTHESIA FOR NON-INVASIVE IMAGING (MRI OR CT) 09/01/2023 1:30 PM EDT Hospital Encounter ENDO [facility], Endoscopy Room [facility] [address] [place] [address] Lopez Shi MD [address] [place] [address] 09/01/2023 1:30 PM EDT - 09/01/2023 2:00 PM EDT Surgery ENDO [facility], Endoscopy Room [facility] [address] [place] [address] Lopez Shi MD [address] [place] [address] ESOPHAGOGASTRODUODENOSCOPY (EGD), FLEXIBLE, TRANSORAL, DIAGNOSTIC 09/04/2023 3:30 PM EDT Office Visit Orthopaedics [facility] [address] [place] [address] Velvet Valenzuela MD [address] [place] [address] 09/11/2023 3:30 PM EDT Office Visit [facility] Center, [facility] [address] [place] [address] Sita Molina PA-C [address] [place] [address] 11/21/2023 5:40 PM EDT Office Visit [address], [place] [phone] Toby Paz MD [address] [place] [address] Pending Results Name Type Priority Associated Diagnoses Date /Time CBC WITH WBC DIFFERENTIAL Lab STAT S/P hip replacement 08/03/2023 11:20 AM EDT COMPREHENSIVE METABOLIC PANEL Lab Routine Alcoholic cirrhosis of liver with ascites (HCC) 08/03/2023 11:20 AM EDT PT INR Lab Routine Alcoholic cirrhosis of liver with ascites (HCC) 08/03/2023 11:20 AM EDT AMMONIA Lab Routine Alcoholic cirrhosis of liver with ascites (HCC) 08/03/2023 11:20 AM EDT URIC ACID Lab Routine Effusion of bursa of elbow, right 08/03/2023 11:20 AM EDT CBC Lab STAT S/P hip replacement 08/03/2023 11:20 AM EDT DIFFERENTIAL, AUTOMATED Lab STAT S/P hip replacement 08/03/2023 11:20 AM EDT CULTURE, URINE, QUANTITATIVE Lab Routine Alcoholic cirrhosis of liver with ascites (HCC) 08/03/2023 11:22 AM EDT Scheduled Procedures Name Priority [...] Vaccine ( season) 2022 Colonoscopy 06/30/2024 06/30/2021, 03/3 , 05/30/2019, Additional history exists Colorectal Cancer Screening [...] with ascites (HCC) Alcoholic cirrhosis of liver Effusion of bursa of elbow, right Pain in left hip Pain in joint, pelvic region and thigh Cirrhosis (HCC) Cirrhosis of liver without mention of alcohol documented in this encounter Care Teams Brown[employer] Redevelopment Specialist Relationship Specialty Start Date End Date Toby Paz MD [address] [place] [address] PCP - General Family Medicine 11/25/14 documented as of this encounter
--- OUTSIDE RECORDS SUMMARY | 2023-09-30 15:28 | External Medical Summary ---
Author Name Unknown Address Unknown Organization [id number]:LABORATORY [facility] [place] [address] [facility] [place] [address] Laboratory Report Ordering Provider Test Date Status LIZA LAROSE 08/03/2023 11:20:40 Final Observation Date Value Abnormality Reference (Units ) Status BUN 08/03/2023 11:20:40 18 6-20 (mg/dL) Final Creatinine 08/03/2023 11:20:40 0.9 0.6-1.2 (mg/dL) Final Glomerular filtration rate/1.73 sq M.predicted [Volume Rate/Area] in Serum, Plasma or Blood by Creatinine-based formula (CKD-EPI) 08/03/2023 11:20:40 >90 >=60 (mL/min) Final eGFR is calculated based on the CKD-EPI 2020 equation Sodium 08/03/2023 11:20:40 140 135-146 (m mol/L) Final Potassium 08/03/2023 11:20:40 4.3 3.5-5.1 (m mol/L) Final Cl 08/03/2023 11:20:40 108 Above high normal 98 -107 (mmol/L) Final CO2 08/03/2023 11:20:40 22 22-32 (mmo l/L) Final Anion gap 08/03/2023 11:20:40 10 7-15 (mmol /L) Final Glucose 08/03/2023 11:20:40 98 70-120 (mg /dL) Final Albumin 08/03/2023 11:20:40 3.8 3.8-5.0 (g /dL) Final AST (Aspartate aminotransferase) 08/03/2023 11:20:40 55 Above high normal 10-50 (U/L) Final Alk Phos 08/03/2023 11:20:40 171 Above high normal 35 -130 (U/L) Final Bilirubin, Total 08/03/2023 11:20:40 2.2 Above high no rmal <=1.2 (mg/dL) Final Calcium 08/03/2023 11:20:40 8.7 8.4-10.2 ( mg/dL) Final Protein 08/03/2023 11:20:40 6.3 6.0-8.3 (g /dL) Final ALT (Alanine aminotransferase) 08/03/2023 11:20:40 36 10-50 (U/L) Ryder joyce Performing Location LAB[facility]ATORY [facility] [place] - [facility] [address] [place] [facility] [address]
--- OUTSIDE RECORDS SUMMARY | 2023-09-30 15:28 | External Medical Summary ---
Author Name Unknown Address Unknown Organization [id number]:[facility] - [address] [place] [address] Laboratory Report Ordering Provider Test Date Status LIZA LAROSE 08/03/2023 11:20:40 Final Observation Date Value Abnormality Reference (Units ) Status Ammonia 08/03/2023 11:20:40 75 Above high normal 11 -35 (umol/L) Final Performing Location [facility] - [address] [place] [address]
--- OUTSIDE RECORDS SUMMARY | 2023-09-30 15:28 | External Medical Summary | Summary of Care ---
Author Name Unknown Organization [facility] Address [address] [place] [address] Phone [phone] Care Team Providers Care Itinerant Teacher Assistant Name Role Phone Toby Paz MD Primary Care Provider +1- [phone] Reason for Visit * Reason Comments Outpatient Testing Encounter Details Date Type Department Care Team (Late st Contact Info) Description 08/03/2023 11:10 AM EDT Laboratory Laboratory, [place] [address] [place] [address] [place], Laboratory [address], [place] [phone] S/P hip replacement; Alcoholic cirrhosis of liver [...] Undiagnosed cardiac murmurs 11/29/2001 03/02/2017 Overview: Not [place] on 11/29/01 documented as of this encounter (statuses as of 08/03/2023) Immunizations Name Administration Dates Next Due HEP A - Hepatitis A (Adult > 18 yrs) 06/06/2020 Pneumococcal Conjugate Vacci ne, 20-valent ([id number]) 06/24/2022 Seasonal Influenza Virus Vac cine, Unspecified [...] PM EDT Office Visit Gastroenterolog Johnna mathew [facility] [address] [facility] [place] [address] eKyanna Gordon CRNP [address] [place] [address] 08/31/2023 7:00 AM EDT Appointment [place] RIVERA [address] [place] [address] 08/31/2023 11:30 AM EDT Hospital Encounter [facility] [address] [place] [address] [facility] [place] In [facility] Out Surgery [address] [place] [address] 08/31/2023 11:30 AM EDT - 08/31/2023 1:20 PM EDT Surgery [place] [facility] [facility] [address] [place] [address] [facility] [place], In And Out Surgery [address] [place] [address] ANESTHESIA FOR NON-INVASIVE IMAGING (MRI OR CT) 09/01/2023 1:30 PM EDT Hospital Encounter ENDO [facility], Endoscopy Room [facility] [address] [place] [address] Lopez Shi MD [address] [place] [address] 09/01/2023 1:30 PM EDT - 09/01/2023 2:00 PM EDT Surgery ENDO [facility], Endoscopy Room [facility] [address] [place] [address] Lopez Shi MD [address] [place] [address] ESOPHAGOGASTRODUODENOSCOPY (EGD), FLEXIBLE, TRANSORAL, DIAGNOSTIC 09/04/2023 3:30 PM EDT Office Visit Orthopaedics [facility] [address] [place] [address] Velvet Valenzuela MD [address] [place] [address] 09/11/2023 3:30 PM EDT Office Visit Interventional Pain Center, [facility] [address] [place] [address] Sita Molina PA-C [address] [place] [address] 11/21/2023 5:40 PM EDT Office Visit [address], [place] [phone] Toby Paz MD [address] [place] [address] Pending Results Name Type Priority Associated Diagnoses [...] alcohol documented in this encounter Care Teams Itinerant Teacher Assistant Relationship Specialty Start Date End Date Toby Paz MD [address] [place] [address] PCP - General Family Medicine 11/25/14 documented as of this encounter
--- OUTSIDE RECORDS SUMMARY | 2023-09-30 15:28 | External Medical Summary | Summary of Care ---
Author Name Unknown Organization [facility] Address [address] [place] [address] Phone [phone] Care Team Providers Care Client Service Consultant Name Role Phone Toby Paz MD Primary Care Provider +1- [phone] Reason for Visit * Reason Onset Date Comments Education 08/07/2023 Encounter Details Date Type Department Care Team (Late st Contact Info) Description 08/07/2023 Telephone Pre Surgery [facility] [address] [place] [address] [facility] [address] [place] [address] Education Allergies Active Allergy Reactions Criticality Noted Date Comments Other Allergy (See Comments) Anaphylaxis High 06/21/2018 Bee stings- swelling documented as of this encounter (statuses as of 08/08/2023) Medications Medication Sig Dispensed Refills Start Date [...] as of this encounter (statuses as of 08/08/2023) Active Problems Problem Noted Date Diagnosed Date [...] as of this encounter (statuses as of 08/08/2023) Resolved Problems Problem Noted Date Diagnosed Date Resolved Date History of alcohol abuse 05/22/2023 Alcohol dependence, uncomplicated 01/17/2023 05/22/2023 Avascular necrosis of bone of hip 05/10/2022 05/22/2023 Chronic alcohol abuse 06/17/20212023 Facial swelling 06/09/2017 08/07/2019 Urticaria 06/09/2017 08/07/2019 Intestinal obstruction 05/09/201203/02 CLASSICAL MIGRAINE WITHOU ME NTION OF INTRACTABLE MIGRAINE 11/29/2001 08/07/2019 Undiagnosed cardiac murmurs 11/29/2001 03/02/2017 Overview: Not [place] on 11/29/01 documented as of this encounter (statuses as of 08/08/2023) Immunizations Name Administration Dates Next Due HEP A - Hepatitis A (Adult > 18 yrs) 06/06/2020 Pneumococcal Conjugate Vacci ne, 20-valent ([id number]) 06/24/2022 Seasonal Influenza Virus Vac cine, Unspecified [...] - 08/08/2023 7:33 AM EDT Looks like [facility] is requesting an office visit for H+P within 30 days of MRI under anesthesia scheduled for 08/31/23 at [facility]. Please contact and offer with any provider. * Telephone Encounter - Keyanna Gordon CRNP - 08/07/2023 3:38 PM EDT We really need a liver MRI on this pt. Would it be possible to get this during the same episode of sedation for the back MRI? Liver MRI is for f/u US liver lesion. Order was placed today for [place]. Regarding risk for sedation, see Dr. Andrews [...] Called pt and message left on voicemail. [employer] message sent as well. Dr Paz could you have your staff reach out and schedule this pt for his H&P for anesthesia? Any help would be truly appreciated. Thank you very much. documented in this encounter Plan of Treatment Upcoming Encounters Date Type Department Care Team (Latest Contact Info) Description 08/10/2023 10:20 AM EDT Office Visit [place] [address] [place] [phone] Rao Ochoa MD [address] [place] [address] 08/10/2023 11:00 AM EDT Laboratory Laboratory, [place] [address] [place] [phone] [facility] [address] [place] [address] 08/31/2023 7:00 AM EDT Appointment [facility], [place] [address] [facility] [place] [address] 08/31/2023 11:30 AM EDT Hospital Encounter [facility], OPERATING ROOM [facility] [address] [facility] [place] [address] [facility] [address] [facility] [place] [address] 08/31/2023 11:30 AM EDT - 08/31/2023 1:20 PM EDT Surgery OR C, OPERATING ROOM [facility] [address] [facility] [address] [facility] [place] Surgery [address] [place], [place] [address] ANESTHESIA FOR NON-INVASIVE IMAGING (MRI OR CT) 09/01/2023 1:30 PM EDT Hospital Encounter ENDO [facility], Endoscopy Room [facility] [address] [place] [address] Lopez Shi MD [address] [place] [address] 09/01/2023 1:30 PM EDT - 09/01/2023 2:00 PM EDT Surgery ENDO [facility], Endoscopy Room [facility] [address] [place] [phone] Lopez Shi MD [address] [place] [address] ESOPHAGOGASTRODUODENOSCOPY (EGD), FLEXIBLE, TRANSORAL, DIAGNOSTIC 09/04/2023 3:30 PM EDT Office Visit Orthopaedics [facility] [address] [place] [address] Velvet Valenzuela MD [address] [place] [address] 09/11/2023 3:30 PM EDT Office Visit Interventional Pain Center, [facility] [address] [place] [address] Sita Molina PA-C [address] [place] [address] 11/21/2023 5:40 PM EDT Office Visit [facility] [address] [place] [facility] [phone] Toby Paz MD [address] [facility] [place] [address] Scheduled Procedures Name Priority Associated Diagnoses Date/Ti [...] filedocumented as of this encounter Care Teams Client Service Consultant Relationship Specialty Start Date End Date Toby Paz MD [address] [place] [address] PCP - General Family Medicine 11/25/14 documented as of this encounter
--- OUTSIDE RECORDS SUMMARY | 2023-09-30 15:28 | External Medical Summary ---
Author Name Unknown Address Unknown Organization K01:[facility]ORY [facility] [place] [address] [facility] [place] [address] Laboratory Report Ordering Provider Test Date Status TERESITA MORRISON 08/03/2023 11:20:40 Final Observation Date Value Abnormality Reference (Units ) Status SYNC LEUKOCYTES IN BLOOD BY AUTOMATED COUNT 08/03/2023 11:20:40 4.93 4.00-10.80 (K/uL) Final Segs 08/03/2023 11:20:40 54.8 40.0-75.0 (%) Final Lymphs % 08/03/2023 11:20:40 23.7 18.0-42.0 (%) Final Monos 08/03/2023 11:20:40 11.4 Above high normal 1.0-11.0 (%) Final Eosinophils 08/03/2023 11:20:40 8.9 Above high normal 0.0-6.0 (%) Final Basos 08/03/2023 11:20:40 1.0 0.0-2.0 (%) Final Immature Granulocyte, Percent 08/03/2023 11:20:40 0.2 0.0-2.0 (%) Final Absolute Segs 08/03/2023 11:20:40 2.70 1.80-7.70 (K/uL) Final Lymphs, absolute 08/03/2023 11:20:40 1.17 1.00-4.80 (K/ul) Final Monos, Abs 08/03/2023 11:20:40 0.56 0.00-1.10 (K/uL) Final Eos, Abs 08/03/2023 11:20:40 0.44 0.00-0.70 (K/uL) Final Basos, Abs 08/03/2023 11:20:40 0.05 0.00-0.20 (K/uL) Final Immature Granulocytes, Number 08/03/2023 11:20:40 0.01 0.00-0.20 (K/uL) Final Performing Location LAB[facility]ATORY [facility] - [address] [facility] [address]
--- OUTSIDE RECORDS SUMMARY | 2023-09-30 15:28 | External Medical Summary | Summary of Care ---
Author Name Unknown Organization [facility] Address [address] [place] [address] Phone [phone] Care Team Providers Care Cafe Attendant Name Role Phone Toby Paz MD Primary Care Provider +1- [phone] Reason for Visit * Reason Onset Date Comments Education 08/07/2023 Encounter Details Date Type Department Care Team (Late st Contact Info) Description 08/07/2023 Telephone Pre Surgery [facility] [address] [place] [address] [facility] [address] [place] [address] Education Allergies Active Allergy Reactions [...] Undiagnosed cardiac murmurs 11/29/2001 03/02/2017 Overview: Not [place] on 11/29/01 documented as of this encounter (statuses as of 08/08/2023) Immunizations Name Administration Dates Next Due HEP A - Hepatitis A (Adult > 18 yrs) 06/06/2020 Pneumococcal Conjugate Vacci ne, 20-valent ([id number]) 06/24/2022 Seasonal Influenza Virus Vac cine, Unspecified [...] - 08/08/2023 7:33 AM EDT Looks like [facility] is requesting an office visit for H+P within 30 days of MRI under anesthesia scheduled for 08/31/23 at [facility]. Please contact and offer with any provider. * Telephone Encounter - Keyanna Gordon CRNP - 08/07/2023 3:38 PM EDT We really need a liver MRI on this pt. Would it be possible to get this during the same episode of sedation for the back MRI? Liver MRI is for f/u US liver lesion. Order was placed today for [place]. Regarding risk for sedation, see Dr. Andrews [...] file. Called pt and message left on [employer]. [employer] message sent as well. Dr Paz could you have your staff reach out and schedule this pt for his H&P for anesthesia? Any help would be truly appreciated. Thank you very much. documented in this encounter Plan of Treatment Upcoming Encounters Date Type Department Care Team (Latest Contact Info) Description 08/10/2023 10:20 AM EDT Office Visit [facility] [address] [place] [phone] Rao Ochoa MD [address] [place] [address] 08/10/2023 11:00 AM EDT Laboratory Laboratory, [place] [address] [place] [phone] [facility] [address] [place] [address] 08/31/2023 7:00 AM EDT Appointment [facility], [facility] [address] [facility] [address] 08/31/2023 11:30 AM EDT Hospital Encounter [facility], OPERATING ROOM [facility] [address] [facility] [place] [phone] [facility], [facility] And Out Surgery [address] [place] [facility] [place] [address] 08/31/2023 11:30 AM EDT - 08/31/2023 1:20 PM EDT Surgery OR [facility], OPERATING ROOM [facility] [address] [place] [address] [facility] In And Out Surgery [address] [place] [facility] [place] [address] ANESTHESIA FOR NON-INVASIVE IMAGING (MRI OR CT) 09/01/2023 1:30 PM EDT Hospital Encounter ENDO [facility], Endoscopy Room [facility] [address] [place] [address] Lopez Shi MD [address] [place] [address] 09/01/2023 1:30 PM EDT - 09/01/2023 2:00 PM EDT Surgery ENDO [facility], Endoscopy Room [facility] [address] [place] [address] Lopez Shi MD [address] [place] [address] ESOPHAGOGASTRODUODENOSCOPY (EGD), FLEXIBLE, TRANSORAL, DIAGNOSTIC 09/04/2023 3:30 PM EDT Office Visit [facility] [address] [place] [address] Velvet Valenzuela MD [address] [place] [address] 09/11/2023 3:30 PM EDT Office Visit [facility] [address] [place] [address] Sita Molina PA-C [address] [place] [address] 11/21/2023 5:40 PM EDT Office Visit [facility] [address] [place] [address] Toby Paz MD [address] [place] [address] Scheduled Procedures Name Priority Associated Diagnoses [...] filedocumented as of this encounter Care Teams Cafe Attendant Relationship Specialty Start Date End Date Toby Paz MD [address] [place] [address] PCP - General Family Medicine 11/25/14 documented as of this encounter
--- OUTSIDE RECORDS SUMMARY | 2023-09-30 15:28 | External Medical Summary | Summary of Care ---
Author Name Unknown Organization [facility] Address [address] [place] [facility] [place] [address] Phone [phone] Care Team Providers Care Carton Folder Name Role Phone Toby Paz MD Primary Care Provider [phone]- [phone] Reason for Referral * Evaluate & Treat - Unlimited Visits (Within 10 days (routine)) - Authorized Specialty Diagnoses / Procedures Referred By Contlori t Referred To Contact Orthopaedic Surgery / Orthopedics Diagnoses Effusion of bursa of elbow, right Rao Ochoa MD [address] [place] [address] Referral ID Status Reason Start Date Expiration Date Visits Requested Visits Authorized [id number] Authorized Specialty Services Required 07/27/2023 999 999 Question Answer Referral Priority Within 10 days (routine) Where should this appointment be scheduled? [facility] What body part is the patient being seen for? Arm/Elbow What condition is the patient being seen for? Sprain/Strain/Tear/Other Reason for Visit * Reason Comments Acute Pt here due to a lum p on his right elbow. Encounter Details Date Type Department Care Team (Latest Contact Info) Description 07/27/2023 2:40 PM EDT Office Visit [facility] [address] [facility] [place] [phone] Rao Ochoa MD [address] [place] [facility] [place] [address] Effusion of bursa of elbow, right*; Thrombocytopenia (HCC); Alcoholic cirrhosis of liver without ascites (HCC); Avascular necrosis of bone of left hip (HCC); Secondary esophageal varices without bleeding (HCC); Hepatic encephalopathy (HCC) Allergies Active Allergy Reactions [...] Undiagnosed cardiac murmurs 11/29/2001 03/02/2017 Overview: Not [place] on 11/29/01 documented as of this encounter (statuses as of 07/31/2023) Immunizations Name Administration Dates Next Due HEP A - Hepatitis A (Adult > 18 yrs) 06/06/2020 Pneumococcal Conjugate Vacci ne, 20-valent ([id number]) 06/24/2022 Seasonal Influenza Virus Vac cine, Unspecified [...] Sign Reading Time Taken Comments Blood Pressure 102/60 07/27/2023 2:46 PM EDT Pulse 68 07/27/2023 2:46 PM EDT Temperature 37.1 C (98.7 F) 07/27/2023 2:46 PM ED T Respiratory Rate 16 07/27/2023 2:46 PM EDT Oxygen Saturation 98% 07/27/2023 2:46 PM EDT Inhaled Oxygen Concentration - - Weight 85.6 kg (188 lb 11.2 oz) 07/27/2023 2:46 PM EDT Height - - Body Mass Index 27.87 05/10/2023 5:59 PM EST documented in this encounter Functional Status Functional Status Response Date of Assess ment Does this person have seriou s difficulty walking or climbing stairs? Yes 08/23/2021 documented as of this encounter Progress Notes * Rao Ochoa MD - 07/31/2023 8:53 AM EDT Subjective Mauro Liu is a 58 year old male. Chief Complaint Patient presents with Acute Pt here due to a lump on his right elbow. HPI: Here for acute rt elbow swelling + bursa, mild tenderness but no warmth, redness No known injury Will refer to ortho for possible aspiration if needed Known liver cirrhosis, hepatic encephalopathy , low Plt count , eso varices F/u with hepatology , possible liver transplantation plan PMH: Patient Active Problem List Diagnosis Code [...] by mouth BEFORE BEDTIME 60 Tablet 2 Triamcinolone Acetonide 0.1 % External Cream (Aristocort) Apply topically to affected area 2 times a day. To affected area. 60 g 5 FLUoxetine HCl 10 MG Oral [...] by mouth at bedtime. 180 Tablet 3 Spironolactone 25 MG Oral Tablet (Aldactone) Take 1 Tablet by mouth in the morning. 90 Tablet 3 traMADol HCl 50 MG Oral Tablet (Ultram) Take 1 Tablet by mouth every 8 hours as needed for Pain, Severe. 30 Tablet 0 prednisoLONE Acetate 1 % Ophthalmic Suspension (Pred [...] the evening and 1 Drop before bedtime. Current Facility-Administered Medications Medication Dose Route Frequency [...] performed by Lopez Shi MD at [facility]COPY [facility] COLONOSCOPY, DIAGNOSTIC (RECTUM) 05/18/2018 adenomatous polyps, diverticulosis, repeat 1yr/COLONOSCOPY FLEXIBLE PROXIMAL DIAGNOSTIC performed by Lopez Shi MD at [facility]COPY [facility] COLONOSCOPY, DIAGNOSTIC (RECTUM) 05/30/2019 adenomatous polyps, diverticulosis, repeat 3 yrs / COLONOSCOPY FLEXIBLE PROXIMAL DIAGNOSTIC performed by Lopez Shi MD at [facility] COLONOSCOPY, DIAGNOSTIC (RECTUM) 06/30/2021 1-4mm in rectum, otherwise normal / biopsies normal / 5 year recall / COLONOSCOPY FLEXIBLE PROXIMALDIAGNOSTIC performed by Jena Camargo MD at [facility]COPY [facility] EGD, FLEXIBLE, DIAGNOSTIC 05/05/2014 normal bx/ESOPHAGOGASTRODUODENOSCOPY (EGD), FLEXIBLE, TRANSORAL, DIAGNOSTIC performed by Ki Huang MD at [facility]COPY [facility] EGD, FLEXIBLE, DIAGNOSTIC 04/11/2016 Schatzki ring, hiatal hernia, gastritis/ESOPHAGOGASTRODUODENOSCOPY (EGD), FLEXIBLE, TRANSORAL, DIAGNOSTIC performed by Ki Huang MD at [facility] EGD, FLEXIBLE, DIAGNOSTIC 01/24/2018 w/ [facility] EGD, FLEXIBLE, DIAGNOSTIC 07/17/2018 normal biopsies/ESOPHAGOGASTRODUODENOSCOPY (EGD), FLEXIBLE, TRANSORAL, DIAGNOSTIC performed by Lopez Shi MD at [facility] EGD, FLEXIBLE, DIAGNOSTIC 07/07/2020 sm hiatal hernia / ESOPHAGOGASTRODUODENOSCOPY (EGD), FLEXIBLE, TRANSORAL, DIAGNOSTIC performed by Lopez Shi MD at [facility] EGD, FLEXIBLE, DIAGNOSTIC 09/03/2021 esophageal varices, repeat 1 yr / ESOPHAGOGASTRODUODENOSCOPY (EGD), FLEXIBLE, TRANSORAL, DIAGNOSTICperformed by Alen Garcia DO at [facility] EGD, FLEXIBLE, DIAGNOSTIC 07/06/2022 Portal hypertensive gastropathy, eso varices, mild-mod inflammation on bx / ESOPHAGOGASTRODUODENOSCOPY (EGD), FLEXIBLE, TRANSORAL, DIAGNOSTIC performed by Lopez Shi MD at [facility] EGD, W/ENDOSCOPIC US 06/26/2018 retained food, repeat study/ESOPHAGOGASTRODUODENOSCOPY (EGD), FLEXIBLE, TRANSORAL, ENDOSCOPIC ULTRASOUND performed by Lopez Shi MD at [facility] EGD, W/ENDOSCOPIC US 07/17/2018 sludge gallbladder/ESOPHAGOGASTRODUODENOSCOPY (EGD), FLEXIBLE, TRANSORAL, ENDOSCOPIC ULTRASOUND performed by Lopez Shi MD at [facility] IR BIOPSY 02/14/2022 LAPAROSCOPY; CHOLECYSTECTOMY OH ARTHRP ACETBLR/PROX FEM PROSTC AGRFT/ALGRFT Left 04/08/2023 REDUCTION OF 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 04/26/2012 Exploratory laparotomy with extensive lysis of adhesions and repair of small bowel serosal REMOVAL OF RUPTURED APPENDIX 1977 Appendectomy, Rupt Appendx+Abscess Review of patient's allergies indicates: Allergen Reactions Other Allergy (See Comments) Anaphylaxis Bee stings- swelling Family History Problem Relation Age of Onset Neurological Disorder Mother Park[place] Heart Disorder Father [place] in 40's Stroke Father Heart failure Father [...] on file 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 Negative for activity change, appetite change, chills, diaphoresis, fever and unexpected weight change. Respiratory: Negative for cough, chest tightness, shortness of breath and wheezing. Cardiovascular: Positive for leg swelling (mild , chronic). Negative for chest pain and palpitations. Gastrointestinal: Negative for abdominal distention and abdominal pain. Endocrine: Negative. Musculoskeletal: Positive for joint swelling (rt elbow). Skin: Negative for rash. Neurological: Negative for dizziness, weakness and light-headedness. Psychiatric/Behavioral: Positive for dysphoric mood. Negative for agitation and confusion. The patient is nervous/anxious. Objective BP 102/60 | Pulse 68 | Temp 37.1 C (98.7 F) (Infrared ) | Resp 16 | Wt 85.6 kg (188 lb 11.2 oz)| SpO2 98% | BMI 27.87 kg/m | BSA 2.04 m Physical Exam Constitutional: General: He is not in acute distress. Appearance: Normal appearance. He is not ill-appearing, toxic-appearing or diaphoretic. HENT: Head: Normocephalic and atraumatic. Nose: Nose normal. Eyes: Extraocular Movements: Extraocular movements intact. Musculoskeletal: General: Swelling and tenderness (very mild rt elbow) present. Right lower leg: No edema. Left lower leg: No edema. Skin: Findings: No erythema. Neurological: General: No focal deficit present. Mental Status: He is alert and oriented to person, place, and time. Cranial Nerves: No cranial nerve deficit. Psychiatric: Behavior: Behavior normal. ASSESSMENT/PLAN: Effusion of bursa of elbow, right (Primary) - XR ELBOW 3 OR MORE VIEWS - ORTHOPAEDICS REFERRAL OP - URIC ACID; Future; Expected date: 07/27/2023 Thrombocytopenia (HCC) Alcoholic cirrhosis of liver without ascites (HCC) Avascular necrosis of bone of left hip (HCC) Secondary esophageal varices without bleeding (HCC) Hepatic encephalopathy (HCC) F/u xray, uric acid F/u with ortho Cont med Scheduled ammonia level monthly Rao Ochoa MD documented in this encounter Nursing Notes * Dayana Menjivar LPN - 07/27/2023 2:42 PM EDT Chief Complaint Patient presents with Acute Pt here due to a lump on his right elbow. documented in this encounter Plan of Treatment Upcoming Encounters Date Type Department Care Team (Latest Contact Info) Description 07/31/2023 3:30 PM EDT Office Visit Orthopaedics [facility] [address] [place] [address] Velvet Valenzuela MD [address] [place] [address] 08/07/2023 3:00 PM EDT [facility] [address] [place] [address] Keyanna Gordon CRNP [address] [place] [address] 08/31/2023 7:00 AM EDT Appointment [facility], [place] [address] [place] [facility] [address] 08/31/2023 11:30 AM EDT Hospital Encounter OR [facility], OPERATING ROOM [facility], [facility] [address] [place] [facility] [address] [facility] In And Out Surgery [address] [facility] [place] [address] 08/31/2023 11:30 AM EDT - 08/31/2023 1:20 PM EDT Surgery OR [facility], OPERATING ROOM [facility], [facility] [address] [place] [facility] [address] [facility] Out [facility] [address] [facility] [place] [address] ANESTHESIA FOR NON-INVASIVE IMAGING (MRI OR CT) 09/01/2023 1:30 PM EDT Hospital Encounter ENDO [facility], Endoscopy Room [facility] [address] [place] [phone] Lopez Shi MD [address] [place] [address] 09/01/2023 1:30 PM EDT - 09/01/2023 2:00 PM EDT Surgery ENDO [facility], Endoscopy Room [facility] [address] [place] [phone] Lopez Shi MD [address] [place] [address] ESOPHAGOGASTRODUODENOSCOPY (EGD), FLEXIBLE, TRANSORAL, DIAGNOSTIC 09/11/2023 3:30 PM EDT Office Visit [facility], [facility] [address] [place] [address] Sita Molina PA-C [address] [place] [address] 11/21/2023 5:40 PM EDT [facility] [address] [facility] [phone] Toby Paz MD [address] [place] [facility] [place] [address] Scheduled Orders Name Type Priority Associated Diagnoses Orde r Schedule XR ELBOW 3 OR MORE VIEWS Medical Imaging Routine Effusion of bursa of elbow, right Ordered: 07/27/2023 URIC ACID Lab Routine Effusion of bursa of elbow, right Expected: 07/27/2023 (Approximate), Expires: 07/26/2024 Scheduled Procedures Name Priority Associated Diagnoses Date/Ti [...] this encounter Visit Diagnoses Diagnosis Effusion of bursa of elbow, right- Primary Thrombocytopenia (HCC) Thrombocytopenia, unspecified Alcoholic cirrhosis of liver without ascites (HCC) Alcoholic cirrhosis of liver Avascular necrosis of bone of left hip (HCC) Secondary esophageal varices without bleeding (HCC) Esophageal varices without mention of bleeding in diseases classified elsewhere Hepatic encephalopathy (HCC) Hepatic encephalopathy Pain in left hip Pain in joint, pelvic region and thigh Cirrhosis (HCC) Cirrhosis of liver without mention of alcohol documented in this encounter Care Teams Carton Folder Relationship Specialty Start Date End Date Toby Paz MD [address] [place] [address] PCP - General Family Medicine 11/25/14 documented as of this encounter"
--- OUTSIDE RECORDS SUMMARY | 2023-09-30 15:28 | External Medical Summary ---
Author Name Unknown Address Unknown Organization [id number]:LABORATORY [facility] - [address] [place] [address] Laboratory Report Ordering Provider Test Date Status TERESITA MORRISON 08/03/2023 11:20:40 Final Observation Date Value Abnormality Reference (Units ) Status WBC, Total 08/03/2023 11:20:40 4.93 4.00-10.8 0 (K/uL) Final RBC 08/03/2023 11:20:40 4.15 4.50-5.25 (M/uL) Final Hemoglobin 08/03/2023 11:20:40 13.8 Below low normal 14 .0-16.8 (g/dL) Final HCT 08/03/2023 11:20:40 40.1 40.0-48.4 (%) Final MCV 08/03/2023 11:20:40 96.6 82.0-99.5 (fL) Final MCH 08/03/2023 11:20:40 33.3 27.0-34.0 (pg) Final MCHC 08/03/2023 11:20:40 34.4 32.0-36.0 (g/dL) Final RDW 08/03/2023 11:20:40 15.2 11.5-15.5 (%) Final Platelets 08/03/2023 11:20:40 39 Below low normal 140 -400 (K/uL) Final MPV 08/03/2023 11:20:40 Final No result - abnormal platele t distribution. Nucleated erythrocytes/100 l eukocytes [Ratio] in Blood by Automated count 08/03/2023 11:20:40 0 <=0 (/100 WBCs) Final Performing Location LABORATORY [facility] - [address] [place] [address]
--- OUTSIDE RECORDS SUMMARY | 2023-09-30 15:29 | External Medical Summary ---
Author Name Unknown Address Unknown Organization [id number]:[facility] - [address] [place] [address] Laboratory Report Ordering Provider Test Date Status BRENT HO 07/10/2023 09:56:16 Final Observation Date Value Abnormality Reference (Units ) Status Ammonia 07/10/2023 09:56:16 58 Above high normal 11 -35 (umol/L) Final Hemolysis may interfere with result. Performing Location [facility]AT[facility] - [address] [place] [address]
--- OUTSIDE RECORDS SUMMARY | 2023-09-30 15:29 | External Medical Summary | Summary of Care ---
Author Name Unknown Organization [facility] Address [address] [facility] [address] Phone [phone] Care Team Providers Care Package Checker Name Role Phone Toby Singh MD Primary Care Provider +1- [phone] Reason for Visit * Reason Comments eRx-Medication Refill Encounter Details Date Type Department Care Team (Late st Contact Info) Description 06/24/2023 Refill [facility] [address] [place] [address] Toby Singh MD [address] [place] [address] Allergies Active Allergy Reactions Criticality Noted Date Comments Other Allergy (See Comments) Anaphylaxis High 06/21/2018 Bee stings- swelling documented as of this encounter (statuses as of 06/25/2023) Medications Medication Sig Dispensed Refills Start Date [...] left hip 150 g 5 03/29/2023 Active Furosemide 40 MG Oral Tablet [...] 2 03/29/2023 Active Vitamin A & D [address] UNIT Oral Tablet Take by mouth. 0 [...] Pain, Severe. 30 Tablet 0 05/16/2023 Active FLUoxetine HCl 10 MG Oral Capsule (PROzac) Take 1 Capsule by mouth in the morning. 90 Capsule 3 06/25/2023 Active FLUoxetine HCl 10 MG Oral Capsule (PROzac) Take 1 Capsule by mouth in the morning. Every morning.. 90 Capsule 0 03/29/2023 4 Discontinued Hospital, Clinic, or Other Facility Administered Medication Ordered Dose Route Frequency Start Date End Date Status albuterol sulfate (PROVENTIL) (2.5 MG/3ML) 0.083% inhalation solution 2.5 mgIndications:SOB (shortness of breath) 2.5 mg NEBULIZER Q4H PRN 05/10/2018 Act guzman documented as of this encounter (statuses as of 06/25/2023) Active Problems Problem Noted Date Diagnosed Date [...] as of this encounter (statuses as of 06/25/2023) Resolved Problems Problem Noted Date Diagnosed Date Resolved Date History of alcohol abuse 05/22/2023 Alcohol dependence, uncomplicated 01/17/2023 05/22/2023 Avascular necrosis of bone of hip 05/10/2022 05/22/2023 Chronic alcohol abuse 06/17/20212023 Facial swelling 06/09/2017 08/07/2019 Urticaria 06/09/2017 08/07/2019 Intestinal obstruction 05/09/201203/02 CLASSICAL MIGRAINE WITHOU ME NTION OF INTRACTABLE MIGRAINE 11/29/2001 08/07/2019 Undiagnosed cardiac murmurs 11/29/2001 03/02/2017 Overview: Not [place] on 11/29/01 documented as of this encounter (statuses as of 06/25/2023) Immunizations Name Administration Dates Next Due HEP A - Hepatitis A (Adult > 18 yrs) 06/06/2020 Pneumococcal Conjugate Vacci ne, 20-valent ([id number]) 06/24/2022 Seasonal Influenza Virus Vac cine, Unspecified [...] Miscellaneous Notes * Telephone Encounter - Cachorro Zamorano RPh - 06/25/2023 9:10 PM EDT Signed Prescriptions: Disp Refills FLUoxetine HCl 10 MG Oral Capsule (PROzac) 90 Cap*3 Sig: Take 1 Capsule by mouth in the morning.Authorizing Provider: TOBY SINGH User: CACHORRO ZAMORANO documented in this encounter Plan of Treatment Upcoming Encounters Date Type Department Care Team (Latest Contact Info) Description 08/07/2023 3:00 PM EDT Office Visit Gastroenterology , [facility] [address] [place] [address] Keyanna Gordon CRNP [address] [place] [address] 09/01/2023 1:30 PM EDT Hospital Encounter ENDO [facility], Endoscopy Room [facility] [address] [place] [phone] Lopez Shi MD [address] [place] [address] 09/01/2023 1:30 PM EDT - 09/01/2023 2:00 PM EDT Surgery ENDO [facility], Endoscopy Room [facility] [address] [place] [phone] Lopez Shi MD [address] [place] [address] ESOPHAGOGASTRODUODENOSCOPY (EGD), FLEXIBLE, TRANSORAL, DIAGNOSTIC 10/03/2023 11:40 AM EDT Office Visit [place] [address] [facility] [place] [phone] Toby Singh MD [address] [place] [facility] [address] 11/21/2023 5:40 PM EDT Office Visit [place] [address] [facility] [place] [address] Toby Singh MD [address] [place] [address] Scheduled Procedures Name Priority Associated Diagnoses Date/Ti me ESOPHAGOGASTRODUODENOSCOPY ( EGD), FLEXIBLE, TRANSORAL, DIAGNOSTIC Cirrhosis (HCC) 09/01/2023 1:30 PM EDT COLONOSCOPY FLEXIBLE PROXIMA L DIAGNOSTIC Recall History of colon polyps Health Maintenance Due Date Last Done Comments Albumin/Creatinine Ratio 1982 Hepatitis B (1 of 3 - 19+ 3-dose series) 07/14/1983 Zoster Vaccines (1 of 2) 2014 COVID-19 Vaccine (2022-24 season) 2022 Depression Screening 04/17/2024 04/17/2023 GFR [...] filedocumented as of this encounter Care Teams Package Checker Relationship Specialty Start Date End Date Toby Singh MD [address] [place] [address] PCP - General Family Medicine 11/25/14 documented as of this encounter
--- OUTSIDE RECORDS SUMMARY | 2023-09-30 15:29 | External Medical Summary | Summary of Care ---
Author Name Unknown Organization [facility] Address [address] [facility] [place] [address] Phone [phone] Care Team Providers Care Nursing Home Manager Name Role Phone Toby Paz MD Primary Care Provider +1- [phone] Reason for Visit * Reason Comments Outpatient Testing Encounter Details Date Type Department Care Team (Late st Contact Info) Description 07/10/2023 9:50 AM EDT Laboratory Laboratory, [facility] [address] [place] [address] [facility] [address] [place] [address] HTN, goal below 130/80; Hepatic encephalopathy (HCC); Alcoholic cirrhosis of liver without ascites (HCC) Allergies Active Allergy Reactions Criticality Noted Date Comments Other Allergy (See Comments) Anaphylaxis High 06/21/2018 Bee stings- swelling documented as of this encounter (statuses as of 07/10/2023) Medications Medication Sig Dispensed Refills Start Date End Date Status EpiPen 2-Dave 0.3 MG/0.3ML Injection Solution Auto-injector For a severe reaction: Place orange end against the outer thigh, press firmly, hold in place for 10 seconds and go to the Emergency room. 2 Each 1 07/20/2020 Active Additional Information Patient not taking.Reported on 07/06/2023 Iron (Ferrous Sulfate) 325 (65 Fe) MG [...] the morning. 90 Capsule 3 06/25/2023 Active traMADol HCl 50 MG Oral Tablet (Ultram)Indications :Avascular necrosis of bone of left hip (HCC) Take 1 Tablet by mouth every 8 hours as needed for Pain, Severe. 30 Tablet 0 06/28/2023 Active Furosemide 20 MG Oral Tablet (Lasix) [...] the morning. 90 Tablet 3 07/07/2023 Active Hospital, Clinic, or Other Facility Administered Medication Ordered Dose Route Frequency Start Date End Date Status albuterol sulfate (PROVENTIL) (2.5 MG/3ML) 0.083% inhalation solution 2.5 mgIndications:SOB (shortness of breath) 2.5 mg NEBULIZER Q4H PRN 05/10/2018 Act guzman documented as of this encounter (statuses as of 07/10/2023) Active Problems Problem Noted Date Diagnosed Date [...] as of this encounter (statuses as of 07/10/2023) Resolved Problems Problem Noted Date Diagnosed Date Resolved Date History of alcohol abuse 05/22/2023 Alcohol dependence, uncomplicated 01/17/2023 05/22/2023 Avascular necrosis of bone of hip 05/10/2022 05/22/2023 Chronic alcohol abuse 06/17/20212023 Facial swelling 06/09/2017 08/07/2019 Urticaria 06/09/2017 08/07/2019 Intestinal obstruction 05/09/201203/02 CLASSICAL MIGRAINE WITHOU ME NTION OF INTRACTABLE MIGRAINE 11/29/2001 08/07/2019 Undiagnosed cardiac murmurs 11/29/2001 03/02/2017 Overview: Not [place] on 11/29/01 documented as of this encounter (statuses as of 07/10/2023) Immunizations Name Administration Dates Next Due HEP A - Hepatitis A (Adult > 18 yrs) 06/06/2020 Pneumococcal Conjugate Vacci ne, 20-valent ([id number]) 06/24/2022 Seasonal Influenza Virus Vac cine, Unspecified [...] Department Care Team (Latest Contact Info) Description 07/11/2023 1:40 PM EDT Office Visit [facility] [address] [place] [phone] Brain Baig MD [address] [place] [address] 07/27/2023 3:40 PM EDT Office Visit [facility] [address] [place] [facility] [place] [phone] Toby Paz MD [address] [place] [address] 08/07/2023 3:00 PM EDT Office Visit Gastroenterolog y, [facility] [address] [address] Keyanna Gordon CRNP [address] [place] [address] 08/31/2023 7:00 AM EDT Appointment [facility], [address] [id number] 08/31/2023 11:30 AM EDT Hospital Encounter [facility], OPER[facility] [address] [place] [facility] [address] [facility], In [facility] Out Surgery [address] [facility] [place] [address] 08/31/2023 11:30 AM EDT - 08/31/2023 1:20 PM EDT Surgery [place] [facility] [facility] [address] [facility] [address] [facility], In And Out Surgery [address] [facility] [place] [address] ANESTHESIA FOR NON-INVASIVE IMAGING (MRI OR CT) 09/01/2023 1:30 PM EDT Hospital Encounter ENDO [facility], Endoscopy Room [facility] [address] [place] [address] Lopez Shi MD [address] [place] [address] 09/01/2023 1:30 PM EDT - 09/01/2023 2:00 PM EDT Surgery ENDO [facility], Endoscopy Room [facility] [address] [place] [phone] Lopez Shi MD [address] [place] [address] ESOPHAGOGASTRODUODENOSCOPY (EGD), FLEXIBLE, TRANSORAL, DIAGNOSTIC 09/11/2023 3:30 PM EDT Office Visit [facility], [facility] [address] [place] [address] Sita Molina PA-C [address] [place] [address] 11/21/2023 5:40 PM EDT Office Visit [address], [place] [phone] Toby Paz MD [address] [place] [address] Pending Results Name Type Priority Associated Diagnoses Date /Time ALBUMIN / CREATININE RATIO, URINE Lab Routine HTN, goal below 130/80 07/10/2023 9:56 AM EDT [facility] Lab Routine Hepatic encephalopathy (HCC) 07/10/2023 9:56 AM EDT COMPREHENSIVE METABOLIC PANEL Lab Routine HTN, goal below 130/80 Alcoholic cirrhosis of liver without ascites (HCC) Hepatic encephalopathy (HCC) 07/10/2023 9:56 AM EDT Scheduled Procedures Name Priority Associated [...] as of this encounter Visit Diagnoses Diagnosis HTN, goal below 130/80 Unspecified essential hypertension Hepatic encephalopathy (HCC) Hepatic encephalopathy Alcoholic cirrhosis of liver without ascites (HCC) Alcoholic cirrhosis of liver Pain in left hip Pain in joint, pelvic region and thigh Cirrhosis (HCC) Cirrhosis of liver without mention of alcohol documented in this encounter Care Teams Nursing Home Manager Relationship Specialty Start Date End Date Toby Paz MD [address] [place] [address] PCP - General Family Medicine 11/25/14 documented as of this encounter
--- OUTSIDE RECORDS SUMMARY | 2023-09-30 15:29 | External Medical Summary | Summary of Care ---
Author Name Unknown Organization [facility] Address [address] [place] [facility] [place] [place] [address] Phone [phone] Care Team Providers Care Surgical Processor Name Role Phone Kiley Singh MD Primary Care Provider +1- [phone] Reason for Visit * Reason Onset Date Comments Medication Refill 06/27/2023 Encounter Details Date Type Department Care Team (Late st Contact Info) Description 06/27/2023 Refill [facility] [address] [place] [address] Kiley Singh MD [address] [place] [address] Avascular necrosis of bone of left hip (HCC) Allergies Active Allergy Reactions Criticality Noted Date Comments Other Allergy (See Comments) Anaphylaxis High 06/21/2018 Bee stings- swelling documented as of this encounter (statuses as of 06/28/2023) Medications Medication Sig Dispensed Refills Start Date [...] 2 03/29/2023 Active Vitamin A & D [address] UNIT Oral Tablet Take by mouth. 0 [...] Pain, Severe. 30 Tablet 0 06/28/2023 Active traMADol HCl 50 MG Oral Tablet (Ultram)Indicatio ns:Avascular necrosis of bone of left hip (HCC) Take 1 Tablet by mouth every 8 hours as needed for Pain, Severe. 30 Tablet 0 05/16/2023 06/27/2023 Discontinue d(Refill) Hospital, Clinic, or Other Facility Administered Medication Ordered Dose Route Frequency Start Date End Date Status albuterol sulfate (PROVENTIL) (2.5 MG/3ML) 0.083% inhalation solution 2.5 mgIndications:SOB (shortness of breath) 2.5 mg NEBULIZER Q4H PRN 05/10/2018 Act guzman documented as of this encounter (statuses as of 06/28/2023) Active Problems Problem Noted Date Diagnosed Date [...] as of this encounter (statuses as of 06/28/2023) Resolved Problems Problem Noted Date Diagnosed Date Resolved Date History of alcohol abuse 05/22/2023 Alcohol dependence, uncomplicated 01/17/2023 05/22/2023 Avascular necrosis of bone of hip 05/10/2022 05/22/2023 Chronic alcohol abuse 06/17/20212023 Facial swelling 06/09/2017 08/07/2019 Urticaria 06/09/2017 08/07/2019 Intestinal obstruction 05/09/201203/02 CLASSICAL MIGRAINE WITHOU ME NTION OF INTRACTABLE MIGRAINE 11/29/2001 08/07/2019 Undiagnosed cardiac murmurs 11/29/2001 03/02/2017 Overview: Not [place] on 11/29/01 documented as of this encounter (statuses as of 06/28/2023) Immunizations Name Administration Dates Next Due HEP A - Hepatitis A (Adult > 18 yrs) 06/06/2020 Pneumococcal Conjugate Vacci ne, 20-valent ([id number]) 06/24/2022 Seasonal Influenza Virus Vac cine, Unspecified [...] Telephone Encounter - Kiley Singh MD - 06/28/2023 3:03 PM EDTSigned Prescriptions: Disp Refills traMADol HCl 50 MG Oral Tablet (Ultram) 30 Tab*0 Sig: Take 1 Tablet by mouth every 8 hours as needed for Pain, Severe.Authorizing Provider: KILEY SINGH----- * Telephone Encounter - Yandy Pritchett [facility] - 06/28/2023 2:54 PM EDTPending Prescriptions: Disp Refills traMADol HCl 50 MG Oral Tablet (Ultram) 30 Tab*0 Sig: Take 1 Tablet by mouth every 8 hours as needed for Pain, Severe. * Telephone Encounter - Yandy Pritchett RPh - 06/28/2023 2:52 PM EDT I have reviewed the patients controlled substance dispensing history in the Prescription Drug Monitoring Program in compliance with the [facility] regulations before prescribing a controlled substance. PDMP checked on 06/28/2023. Pending Prescriptions: Disp Refills traMADol HCl 50 MG Oral Tablet (Ultram) 30 Tab*0 Sig: Take 1 Tablet by mouth every 8 hours as needed for Pain, Severe. Last Visit: 05/22/2023 (in office), Visit date not found (telemedicine) Next Visit: 07/06/2023 Date medication was last filled: 05/31/2023 Date medication is due for refill: 06/09/2023 Pharmacy: [id number] [facility] Is this request for a controlled [...] Review. Please approve if appropriate. Thank you, Yandy Pritchett [facility] Clinical Pharmacist Centralized Clinical Pharmacy Services ([facility]PS) (formerly Telepharmacy) 06/28/23 2:52 PM [phone] documented in this encounter Plan of Treatment Upcoming Encounters Date Type Department Care Team (Latest Contact Info) Description 07/06/2023 4:00 PM EDT Office Visit [place] [address] [facility] [place] [phone] Rao Ochoa MD [address] [place] [facility] [place] [address] 07/27/2023 3:40 PM EDT Office Visit [facility] [address] [place] [facility] [place] [phone] Kiley Singh MD [address] [facility], [place] [phone] 08/07/2023 3:00 PM EDT Office Visit Gastroenterology , [facility] [address] [place] [address] Keyanna Gordon CRNP [address] [place] [address] 09/01/2023 1:30 PM EDT Hospital Encounter [facility], Endoscopy Room [facility] [address] [place] [phone] Lopez Shi MD [address] [place] [address] 09/01/2023 1:30 PM EDT - 09/01/2023 2:00 PM EDT Surgery [facility], Endoscopy Room [facility] [address] [place] [phone] Lopez Shi MD [address] [place] [address] ESOPHAGOGASTRODUODENOSCOPY (EGD), FLEXIBLE, TRANSORAL, DIAGNOSTIC 11/21/2023 5:40 PM EDT Office Visit [facility] [address] [place] [facility] [place] [phone] Kiley Singh MD [address] [place] [address] Scheduled Procedures Name Priority Associated Diagnoses Date/Ti [...] alcohol documented in this encounter Care Teams Surgical Processor Relationship Specialty Start Date End Date Kiley Singh MD [address] [place] [address] PCP - General Family Medicine 11/25/14 documented as of this encounter
--- OUTSIDE RECORDS SUMMARY | 2023-09-30 15:29 | External Medical Summary | Summary of Care ---
Author Name Unknown Organization [facility] Address [address] [facility] [place] [address] Phone [phone] Care Team Providers Care Manufacturing Engineering Professor Name Role Phone Toby Paz MD Primary Care Provider +1- [phone] Reason for Visit * Reason Comments Physical-Exam Patient is here for yearly physical \\patient states no concerns Encounter Details Date Type Department Care Team (Late st Contact Info) Description 07/11/2023 1:40 PM EDT Office Visit [facility] [address] [place] [address] Brain Baig MD [address] [place] [address] Other cataract of both eyes*; Cirrhosis of liver without ascites, unspecified hepatic cirrhosis type (HCC) Allergies Active Allergy Reactions Criticality Noted Date Comments Other Allergy (See Comments) Anaphylaxis High 06/21/2018 Bee stings- swelling documented as of this encounter (statuses as of 07/11/2023) Medications Medication Sig Dispensed Refills Start Date [...] Active Additional Information Patient not taking.Reported on 07/11/2023 Lactulose 10 GM/15ML Oral Solution (Constulose)Indicat ions:Hyperammonemia [...] BEFORE BEDTIME 180 Tablet 1 03/29/2023 Active Additional Information Patient not taking.Reported on 07/11/2023 Pantoprazole Sodium 40 MG Oral Tablet Delayed [...] Active Additional Information Patient not taking.Reported on 07/11/2023 FLUoxetine HCl 10 MG Oral Capsule (PROzac) [...] as of this encounter (statuses as of 07/11/2023) Active Problems Problem Noted Date Diagnosed Date [...] as of this encounter (statuses as of 07/11/2023) Resolved Problems Problem Noted Date Diagnosed Date Resolved Date History of alcohol abuse 05/22/2023 Alcohol dependence, uncomplicated 01/17/2023 05/22/2023 Avascular necrosis of bone of hip 05/10/2022 05/22/2023 Chronic alcohol abuse 06/17/20212023 Facial swelling 06/09/2017 08/07/2019 Urticaria 06/09/2017 08/07/2019 Intestinal obstruction 05/09/201203/02 CLASSICAL MIGRAINE WITHOU ME NTION OF INTRACTABLE MIGRAINE 11/29/2001 08/07/2019 Undiagnosed cardiac murmurs 11/29/2001 03/02/2017 Overview: Not [place] on 11/29/01 documented as of this encounter (statuses as of 07/11/2023) Immunizations Name Administration Dates Next Due HEP A - Hepatitis A (Adult > 18 yrs) 06/06/2020 Pneumococcal Conjugate Vacci ne, 20-valent ([id number]) 06/24/2022 Seasonal Influenza Virus Vac cine, Unspecified [...] Sign Reading Time Taken Comments Blood Pressure 108/62 07/11/2023 2:01 PM EDT Pulse 85 07/11/2023 2:01 PM EDT Temperature 36.6 C (97.8 F) 07/11/2023 2:01 PM ED T Respiratory Rate 16 07/11/2023 2:01 PM EDT Oxygen Saturation 98% 07/11/2023 2:01 PM EDT Inhaled Oxygen Concentration - - Weight 86.4 kg (190 lb 6.4 oz) 07/11/2023 2:01 P M EDT Height - - Body Mass Index 28.12 05/10/2023 5:59 PM EST documented in this encounter Functional Status Functional Status Response Date of Assess ment Does this person have seriou s difficulty walking or climbing stairs? Yes 08/23/2021 documented as of this encounter Progress Notes * Brain Baig MD - 07/11/2023 2:18 PM EDT Subjective: Mauro Liu is a 57 year old male. Chief Complaint Patient presents with Physical-Exam Patient is here for yearly physical \\patient states no concerns HPI: 57-year-old is seen today for a pre operative evaluation as he is tentatively scheduled for cataract surgery at [facility] on July 25 and August 08. He has a known history of liver cirrhosis. He was hospitalized 1 month ago for 2 days with elevated ammonia level and hepatic encephalopathy. He is increased his lactulose since the hospitalization and has not had any recurrent problems. Just had serum ammonia level done 4 days ago. His ammonia level was 58 and that compared to 09/01/1989 month ago. His electrolytes showed slight elevation of chloride and decreased CO2 likely related to his diuretic therapy. He feels as if he is back to his baseline. He has not bothered with abnormal bleeding or shortness of breath or heart racing or increasing legedema. Currently not bothered with any confusion or delirium. Not bothered with chest pain or difficulty swallowing or recurrent fever or chronic cough. Patient Active Problem List Diagnosis Code Family [...] mouth in the morning. 90 Tablet 1 Lactulose 10 GM/15ML Oral Solution (Constulose) Take 30 mL by mouth in the morning and 30 mL at noon and 30 mL in the evening and 30 mL before bedtime. 946 mL 5 Gabapentin 100 MG Oral Capsule (Neurontin) take 1 capsule by mouth every morning and AT NOON and BEFORE BEDTIME 90 Capsule 5 Pantoprazole Sodium 40 MG Oral Tablet Delayed [...] mouth in the morning. 90 Capsule 3 traMADol HCl 50 MG Oral Tablet (Ultram) Take 1 Tablet by mouth every 8 hours as needed for Pain, Severe. 30 Tablet 0 Furosemide 20 MG Oral Tablet (Lasix) Take [...] mouth in the morning. 90 Tablet 3 EpiPen 2-Dave 0.3 MG/0.3ML Injection Solution Auto-injector For a severe reaction: Place orange end against the outer thigh, press firmly, hold in place for 10 seconds and go to the Emergency room. (Patient not taking: Reported on 07/06/2023) 2 Each 1 Diclofenac Sodium 1 % External Gel (Voltaren) Apply topically to affected area 2 times a day. Applyto area lateral to left hip (Patient not taking: Reported on 07/11/2023) 150 g 5 Magnesium Oxide -Mg Supplement 400 (240 Mg) MG Oral Tablet (Mag-Ox) take 1 tablet by mouth IN THE MORNING AND BEFORE BEDTIME (Patient not taking: Reported on 07/11/2023) 180 Tablet 1 Triamcinolone Acetonide 0.1 % External Cream (Aristocort) Apply topically to affected area 2 times a day. To affected area. (Patient not taking: Reported on 07/11/2023) 60 g 5 Current Facility-Administered Medications Medication Dose Route Frequency Provider Last Rate Last Admin albuterol sulfate (PROVENTIL) (2.5 MG/3ML) 0.083% inhalation solution 2.5 mg 2.5 mg Nebulizer Q4H PRN Toby Paz MD 2.5 mg at 05/10/18 1241 Review of patient's allergies indicates: Allergen Reactions Other Allergy (See Comments) Anaphylaxis Bee stings- swelling Objective: BP 108/62 | Pulse 85 | Temp 36.6 C (97.8 F) (Temporal Artery) | Resp 16 | Wt 86.4 kg (190 lb 6.4 oz) | SpO2 98% | BMI 28.12 kg/m | BSA 2.05 m Physical Exam: CONST: alert, pleasant, no acute distress HEAD: normocephalic, atraumatic NECK: supple, soft, no adenopathy Eyes - PERRLA, EOM'I OROPHARYNX: clear, no swelling or erythema, moist CV: regular rate and rhythm, no murmur CHEST: clear to auscultation bilaterally, no rales or wheezing ABD: soft, non tender, non distended, no masses or hepatosplenomegaly EXT: Trace bilateral ankle edema, no joint swelling or deformities, NEURO: AAOx3, no gross focal deficits, cerebellar signs normal, affect appropriate MENTAL STATUS: no evidence of thought disorder, no delusional thought, no evidence of paranoia, thought is non-tangential. SKIN: no rash or significant lesions ASSESSMENT/PLAN: Bilateral cataracts-the patient is considered reasonable risk for the planned low risk surgery. I do not feel any further testing to be of value. Hepatic cirrhosis-he is currently compensated although this is borderline. I do not feel that this diagnosis would preclude him from proceeding with cataract surgery. He will continue all of his regular medications. History hypertension-well controlled. No change needed Brain Baig MD documented in this encounter Nursing Notes * Pankaj Suggs Student - 07/11/2023 2:03 PM EDT The patient has been properly identified by confirmation of name and date of . Chief Complaint Patient presents with Physical-Exam Patient is here for yearly physical \\patient states no concerns documented in this encounter Plan of Treatment Upcoming Encounters Date Type Department Care Team (Latest Contact Info) Description 07/27/2023 3:40 PM EDT Office Visit [facility] [address] [facility] [place] [facility] [phone] Toby Paz MD [address] [place] [facility] [address] 08/07/2023 3:00 PM EDT Office Visit Gastroenterolog y, [facility] [address] [place] [address] Keyanna Gordon CRNP [address] [place] [address] 08/31/2023 7:00 AM EDT Appointment [facility], [place] [address] [place] [facility] [place] [address] 08/31/2023 11:30 AM EDT Hospital Encounter [place] [facility], OPER[facility] ROOM [facility] [address] [place] [facility] [address] [facility], In And Out Surgery [address] [facility] [place] [address] 08/31/2023 11:30 AM EDT - 08/31/2023 1:20 PM EDT Surgery OR [facility], OPERATING ROOM [facility] [address] [place] [facility] [address] [facility], In And Out Surgery [address] [facility] [place] [address] ANESTHESIA FOR NON-INVASIVE IMAGING (MRI OR CT) 09/01/2023 1:30 PM EDT Hospital Encounter [facility], Endoscopy Room [facility] [address] [place] [address] Lopez Shi MD [address] [place] [address] 09/01/2023 1:30 PM EDT - 09/01/2023 2:00 PM EDT Surgery [facility], Endoscopy Room [facility] [address] [place] [phone] Lopez Shi MD [address] [place] [address] ESOPHAGOGASTRODUODENOSCOPY (EGD), FLEXIBLE, TRANSORAL, DIAGNOSTIC 09/11/2023 3:30 PM EDT Office Visit [facility], [facility] [address] [place] [address] Sita Molina PA-C [address] [place] [address] 11/21/2023 5:40 PM EDT Office Visit [facility] [address] [place] [address] Toby Paz MD [address] [place] [address] Scheduled Procedures Name Priority Associated Diagnoses Date/Ti me ANESTHESIA FOR NON-INVASIVE IMAGING (MRI OR CT) Pain in left hip 08/31/2023 11:30 AM EDT ESOPHAGOGASTRODUODENOSCOPY ( EGD), FLEXIBLE, TRANSORAL, DIAGNOSTIC Cirrhosis (HCC) 09/01/2023 1:30 PM EDT COLONOSCOPY FLEXIBLE PROXIMA L DIAGNOSTIC Recall History of colon polyps Health Maintenance Due Date Last Done Comments Hepatitis B (1 of 3 - 19+ 3-dose series) 07/14/1983 Zoster Vaccines (1 of 2) 2014 COVID-19 Vaccine ( season) 2022 COLONOSCOPY-EVERY 3 YRS AGES 18-100 06/30/2024 06/30/2021, 06/30/2021, 05/30/2019, Additional history exists GFR 07/09/2024 07/10/2023, 0308/2023, 05/30/2023, Additional history exists Albumin/Creatinine Ratio 07/09/2026 [...] as of this encounter Visit Diagnoses Diagnosis Other cataract of both eyes- Primary Cirrhosis of liver without ascites, unspecified hepatic cirrhosis type (HCC) Pain in left hip Pain in joint, pelvic region and thigh Cirrhosis (HCC) Cirrhosis of liver without mention of alcohol documented in this encounter Care Teams Manufacturing Engineering Professor Relationship Specialty Start Date End Date Toby Paz MD [address] [place] [address] PCP - General Family Medicine 11/25/14 documented as of this encounter"
--- OUTSIDE RECORDS SUMMARY | 2023-09-30 15:29 | External Medical Summary | Summary of Care ---
Author Name Unknown Organization [facility] Address [address] [place] [address] Phone [phone] Care Team Providers Care Business Enterprise Officer Name Role Phone Kiley Singh MD Primary Care Provider +1- [phone] Reason for Visit * Reason Onset Date Comments Medication Refill 07/18/2023 Encounter Details Date Type Department Care Team (Late st Contact Info) Description 07/18/2023 Refill [facility] [address] [place] [address] Kiley Singh MD [address] [place] [address] Avascular necrosis of bone of left hip (HCC) Allergies Active Allergy Reactions Criticality Noted Date Comments Other Allergy (See Comments) Anaphylaxis High 06/21/2018 Bee stings- swelling documented as of this encounter (statuses as of 07/21/2023) Medications Medication Sig Dispensed Refills Start Date [...] on 07/11/2023 Lactulose 10 GM/15ML Oral Solution (Constulose)Indic ations:Hyperammon [...] Pain, Severe. 30 Tablet 0 07/21/2023 Active traMADol HCl 50 MG Oral Tablet (Ultram)Indicatio ns:Avascular necrosis of bone of left hip (HCC) Take 1 Tablet by mouth every 8 hours as needed for Pain, Severe. 30 Tablet 0 06/28/2023 4 Discontinue d(Refill) Hospital, Clinic, or Other Facility Administered Medication Ordered Dose Route Frequency Start Date End Date Status albuterol sulfate (PROVENTIL) (2.5 MG/3ML) 0.083% inhalation solution 2.5 mgIndications:SOB (shortness of breath) 2.5 mg NEBULIZER Q4H PRN 05/10/2018 Act guzman documented as of this encounter (statuses as of 07/21/2023) Active Problems Problem Noted Date Diagnosed Date [...] as of this encounter (statuses as of 07/21/2023) Resolved Problems Problem Noted Date Diagnosed Date Resolved Date History of alcohol abuse 05/22/2023 Alcohol dependence, uncomplicated 01/17/2023 05/22/2023 Avascular necrosis of bone of hip 05/10/2022 05/22/2023 Chronic alcohol abuse 06/17/20212023 Facial swelling 06/09/2017 08/07/2019 Urticaria 06/09/2017 08/07/2019 Intestinal obstruction 05/09/201203/02 CLASSICAL MIGRAINE WITHOU ME NTION OF INTRACTABLE MIGRAINE 11/29/2001 08/07/2019 Undiagnosed cardiac murmurs 11/29/2001 03/02/2017 Overview: Not [place] on 11/29/01 documented as of this encounter (statuses as of 07/21/2023) Immunizations Name Administration Dates Next Due HEP A - Hepatitis A (Adult > 18 yrs) 06/06/2020 Pneumococcal Conjugate Vacci ne, 20-valent ([id number]) 06/24/2022 Seasonal Influenza Virus Vac cine, Unspecified [...] Telephone Encounter - Kiley Singh MD - 07/21/2023 7:39 AM EDTSigned Prescriptions: Disp Refills traMADol HCl 50 MG Oral Tablet (Ultram) 30 Tab*0 Sig: Take 1 Tablet by mouth every 8 hours as needed for Pain, Severe.Authorizing Provider: KILEY SINGH------ * Telephone Encounter - Atif Ross [facility] - 07/19/2023 5:47 PM EDTPending Prescriptions: Disp Refills traMADol HCl 50 MG Oral Tablet (Ultram) 30 Tab*0 Sig: Take 1 Tablet by mouth every 8 hours as needed for Pain, Severe. * Telephone Encounter - Atif Ross RPh - 07/19/2023 5:46 PM EDT I have reviewed the patients controlled substance dispensing history in the Prescription Drug Monitoring Program in compliance with the [facility] regulations before prescribing a controlled substance. PDMP checked on 07/19/2023. Pending Prescriptions: Disp Refills traMADol HCl 50 MG Oral Tablet (Ultram) 30 Tab*0 Sig: Take 1 Tablet by mouth every 8 hours as needed for Pain, Severe. Last Visit: 07/11/2023 (in office), Visit date not found (telemedicine) Next Visit: 07/27/2023 Date medication was last filled: 06/28/2023 Date medication is due for refill: 07/07/2023 Pharmacy: [id number] Is this request for a controlled [...] in Results Review. Please approve if appropriate. Thanks, Atif Ross, PharmD Clinical Pharmacist Telepharmacy [phone] 07/19/2023NOW@ documented in this encounter Plan of Treatment Upcoming Encounters Date Type Department Care Team (Latest Contact Info) Description 07/27/2023 3:40 PM EDT [facility] [address] [place] [phone] Kiley Singh MD [address], [place] [phone] 08/07/2023 3:00 PM EDT [facility] [address] [place] [address] Keyanna Gordon CRNP [address] [facility] [place] [address] 08/31/2023 7:00 AM EDT Appointment Tianna RIVERA [address] [place] [facility] [place] [address] 08/31/2023 11:30 AM EDT Hospital Encounter [place] [facility] [facility] [address] [place] [facility] [place] [address] c, In And Out Surgery [address] [place] [address] 08/31/2023 11:30 AM EDT - 08/31/2023 1:20 PM EDT Surgery [place] [facility] [address] [facility] [place] [address] c, In And Out Surgery [address] [place] [address] ANESTHESIA FOR NON-INVASIVE IMAGING (MRI OR CT) 09/01/2023 1:30 PM EDT Hospital Encounter ENDO [facility], Endoscopy Room [facility] [address] [place] [address] Lopez Shi MD [address] [place] [address] 09/01/2023 1:30 PM EDT - 09/01/2023 2:00 PM EDT Surgery ENDO [facility], Endoscopy Room [facility] [address] [place] [address] Lopez Shi MD [address] [place] [address] ESOPHAGOGASTRODUODENOSCOPY (EGD), FLEXIBLE, TRANSORAL, DIAGNOSTIC 09/11/2023 3:30 PM EDT Office Visit [facility], [facility] [address] [place] [address] Sita Molina PA-C [address] [place] [address] 11/21/2023 5:40 PM EDT [facility] [address] [facility] [place] [phone] Kiley Singh MD [address] [place] [address] Scheduled Procedures Name Priority Associated Diagnoses Date/Ti [...] of 2) 2014 COVID-19 Vaccine (1 - 2023-24 season) 2022 COLONOSCOPY-EVERY 3 YRS AGES 18-100 06/30/2024 06/30/2021, 06/30/2021, 05/30/2019, Additional history exists GFR 07/09/2024 07/10/2023, 03/08/2023, 05/30/2023, Additional history exists Albumin/Creatinine Ratio 07/09/2026 [...] alcohol documented in this encounter Care Teams Business Enterprise Officer Relationship Specialty Start Date End Date Kiley Singh MD [address] [place] [address] PCP - General Family Medicine 11/25/14 documented as of this encounter
--- OUTSIDE RECORDS SUMMARY | 2023-09-30 15:29 | External Medical Summary | Summary of Care ---
Author Name Unknown Organization [facility] Address [address] [place] [facility] [place] [address] Phone [phone] Care Team Providers Care Reexaminer Name Role Phone Kiley Singh MD Primary Care Provider +1- [phone] Reason for Visit * Reason Comments eRx-Medication Refill Encounter Details Date Type Department Care Team (Late st Contact Info) Description 07/06/2023 Refill [facility] [address] [place] [address] Kiley Singh MD [address] [place] [address] Primary insomnia Allergies Active Allergy Reactions Criticality Noted Date Comments Other Allergy (See Comments) Anaphylaxis High 06/21/2018 Bee stings- swelling documented as of this encounter (statuses as of 07/07/2023) Medications Medication Sig Dispensed Refills Start Date [...] Active Triamcinolone Acetonide 0.1 % External Cream (Aristocort)Kaylin cations:Psoriasi form eczema Apply topically to affected area 2 times a day. To affected area. 60 g 5 05/10/2023 Active FLUoxetine HCl 10 MG Oral Capsule (PROzac) Take 1 Capsule by mouth in the morning. 90 Capsule 3 06/25/2023 Active traMADol HCl 50 MG Oral Tablet (Ultram)Indicati ons:Avascular necrosis of bone of left hip (HCC) [...] the morning. 90 Tablet 3 07/07/2023 Active Spironolactone 25 MG Oral Tablet (Aldactone) Take 1 Tablet by mouth in the morning. 90 Tablet 0 03/29/2023 4 Discontinued traZODone HCl 50 MG Oral Tablet (Desyrel)Indicat ions:Primary insomnia Take 2 Tablets by mouth at bedtime. 180 Tablet 1 03/29/2023 4 Discontinued Hospital, Clinic, or Other Facility Administered Medication Ordered Dose Route Frequency Start Date End Date Status albuterol sulfate (PROVENTIL) (2.5 MG/3ML) 0.083% inhalation solution 2.5 mgIndications:SOB (shortness of breath) 2.5 mg NEBULIZER Q4H PRN 05/10/2018 Act guzman documented as of this encounter (statuses as of 07/07/2023) Active Problems Problem Noted Date Diagnosed Date [...] ischemic heart disease 002 Overview: father had MO's in 40's Gastroesophageal reflux disease with esophagitis documented as of this encounter (statuses as of 07/07/2023) Resolved Problems Problem Noted Date Diagnosed Date Resolved Date History of alcohol abuse 05/22/2023 Alcohol dependence, uncomplicated 01/17/2023 05/22/2023 Avascular necrosis of bone of hip 05/10/2022 05/22/2023 Chronic alcohol abuse 06/17/20212023 Facial swelling 06/09/2017 08/07/2019 Urticaria 06/09/2017 08/07/2019 Intestinal obstruction 05/09/201203/02 CLASSICAL MIGRAINE WITHOU ME NTION OF INTRACTABLE MIGRAINE 11/29/2001 08/07/2019 Undiagnosed cardiac murmurs 11/29/2001 03/02/2017 Overview: Not [place] on 11/29/01 documented as of this encounter (statuses as of 07/07/2023) Immunizations Name Administration Dates Next Due HEP A - Hepatitis A (Adult > 18 yrs) 06/06/2020 Pneumococcal Conjugate Vacci ne, 20-valent ([id number]) 06/24/2022 Seasonal Influenza Virus Vac cine, Unspecified [...] encounter Miscellaneous Notes * Telephone Encounter - Miguel Valentino RPh - 07/07/2023 12:10 PM EDTSigned Prescriptions: Disp Refills traZODone HCl 50 MG Oral Tablet (Desyrel) 180 Ta*3 Sig: Take 2 Tablets by mouth at bedtime.Authorizing Provider: KILEY SINGH User: MIGUEL VALENTINO Spironolactone 25 MG Oral Tablet (Aldacton*90 Tab*3 Sig: Take 1 Tablet by mouth in the morning.Authorizing Provider: KILEY SINGH User: MIGUEL VALENTINO documented in this encounter Plan of Treatment Upcoming Encounters Date Type Department Care Team (Latest Contact Info) Description 07/11/2023 1:40 PM EDT Office Visit [facility] [address] [place] [facility] [place] [phone] Brain Baig MD [address] [place] [facility] [place] [address] 07/27/2023 3:40 PM EDT Office Visit [facility] [address] [place] [facility] [place] [address] Kiley Singh MD [address] [place] [facility] [place] [address] 08/07/2023 3:00 PM EDT Office Visit Gastroenterolog y, [facility] [address] [facility] [place] [address] Keyanna Gordon CRNP [address] [facility] [place] [address] 08/31/2023 7:00 AM EDT Appointment [facility] [place] [address] [facility] [address] 08/31/2023 11:30 AM EDT Hospital Encounter [place] [facility] [place] [facility] [place] [address] [facility] [phone] c, In And Out [facility] [address] [facility] [place] [address] 08/31/2023 11:30 AM EDT - 08/31/2023 1:20 PM EDT Surgery [place] [facility] [place] [facility] [place] [address] [facility] [place] [address] c, In And Out Surgery [address] [facility] [place] [address] ANESTHESIA FOR NON-INVASIVE IMAGING (MRI OR CT) 09/01/2023 1:30 PM EDT Hospital Encounter ENDO [facility], Endoscopy Room [facility] [address] [place] [phone] Lopez Shi MD [address] [place] [address] 09/01/2023 1:30 PM EDT - 09/01/2023 2:00 PM EDT Surgery ENDO [facility], Endoscopy Room [facility] [address] [place] [address] Lopez Shi MD [address] [place] [address] ESOPHAGOGASTRODUODENOSCOPY (EGD), FLEXIBLE, TRANSORAL, DIAGNOSTIC 09/11/2023 3:30 PM EDT [facility] [address] [place] [address] Sita Molina PA-C [address] [place] [address] 11/21/2023 5:40 PM EDT Office Visit [facility] [address] [place] [phone] Kiley Singh MD [address] [place] [address] Scheduled Procedures Name Priority Associated Diagnoses Date/Ti [...] Persistent disorder of initiating or maintaining sleep Pain in left hip Pain in joint, pelvic region and thigh 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
--- OUTSIDE RECORDS SUMMARY | 2023-09-30 15:29 | External Medical Summary | Summary of Care ---
Author Name Unknown Organization [facility] Address [address] [facility] [place] [address] Phone [phone] Care Team Providers Care Tire Technician Name Role Phone Toby Paz MD Primary Care Provider +1- [phone] Encounter Details Date Type Department Care Team (Late st Contact Info) Description 07/11/2023 CardioDiagnostic Study Unspecified Department EKG Report Allergies Active Allergy Reactions Criticality Noted Date Comments Other Allergy (See Comments) Anaphylaxis High 06/21/2018 Bee stings- swelling documented as of this encounter (statuses as of 07/12/2023) Medications Medication Sig Dispensed Refills Start Date [...] as of this encounter (statuses as of 07/12/2023) Active Problems Problem Noted Date Diagnosed Date [...] ischemic heart disease 002 Overview: father had RI's in 40's Gastroesophageal reflux disease with esophagitis documented as of this encounter (statuses as of 07/12/2023) Resolved Problems Problem Noted Date Diagnosed Date Resolved Date History of alcohol abuse 05/22/2023 Alcohol dependence, uncomplicated 01/17/2023 05/22/2023 Avascular necrosis of bone of hip 05/10/2022 05/22/2023 Chronic alcohol abuse 06/17/20212023 Facial swelling 06/09/2017 08/07/2019 Urticaria 06/09/2017 08/07/2019 Intestinal obstruction 05/09/201203/02 CLASSICAL MIGRAINE WITHOU ME NTION OF INTRACTABLE MIGRAINE 11/29/2001 08/07/2019 Undiagnosed cardiac murmurs 11/29/2001 03/02/2017 Overview: Not [place] on 11/29/01 documented as of this encounter (statuses as of 07/12/2023) Immunizations Name Administration Dates Next Due HEP A - Hepatitis A (Adult > 18 yrs) 06/06/2020 Pneumococcal Conjugate Vacci ne, 20-valent ([id number]) 06/24/2022 Seasonal Influenza Virus Vac cine, Unspecified [...] Yes 08/23/2021 documented as of this encounter Procedure Notes * Phan Martinez DO - 07/11/2023 3:14 PM EDTAssociated Order(s): EKG REPORT REASON FOR STUDY: CONCLUSIONS: Sinus rhythm with 1st degree AV block with Premature atrial complexes Left axis deviation Nonspecific intraventricular conduction block Abnormal QRS-T angle, consider primary T wave abnormality Abnormal ECG When compared with ECG of 01-Nov-2022 12:09, Premature atrial complexes are now Present TN interval has increased Intraventricular conduction delay is now noted. Ventricular Rate: 85 Atrial Rate: 85 TN Interval: 240 QRS Duration: 134 QT/QTc: 426/506 ms P-R-T [place]: 66 : -56 : 96 degrees documented in this encounter Plan of Treatment Upcoming Encounters Date Type Department Care Team (Latest Contact Info) Description 07/27/2023 3:40 PM EDT Office Visit [facility] [address] [place] [address] Toby Paz MD [address] [place] [address] 08/07/2023 3:00 PM EDT Office Visit Gastro[facility]olog y, [facility] [address] [place] [address] Keyanna Gordon CRNP [address] [place] [address] 08/31/2023 7:00 AM EDT Appointment MRI, [place] [address] [place] [facility] [place] [address] 08/31/2023 11:30 AM EDT Hospital Encounter OR [facility] [place] ROOM [facility] [address] [place] [facility] [place] [address] [facility] Surgery [address] [place] [address] 08/31/2023 11:30 AM EDT - 08/31/2023 1:20 PM EDT Surgery OR [facility], OPERATING ROOM [facility] [address] [place] [address] c, In And Out Surgery [address] [place] [address] ANESTHESIA FOR NON-INVASIVE IMAGING (MRI OR CT) 09/01/2023 1:30 PM EDT Hospital Encounter ENDO [facility], Endoscopy Room [facility] [address] [place] [phone] Lopez Shi MD [address] [place] [address] 09/01/2023 1:30 PM EDT - 09/01/2023 2:00 PM EDT Surgery ENDO [facility], Endoscopy Room [facility] [address] [place] [address] Lopez Shi MD [address] [place] [address] ESOPHAGOGASTRODUODENOSCOPY (EGD), FLEXIBLE, TRANSORAL, DIAGNOSTIC 09/11/2023 3:30 PM EDT Office Visit [facility], [facility] [address] [place] [address] Sita Molina PA-C [address] [place] [address] 11/21/2023 5:40 PM EDT Office Visit Family Practice, [place] [address] [place] [address] Toby Paz MD [address] [place], [place] [phone] Scheduled Procedures Name Priority Associated Diagnoses Date/Ti [...] Procedure Name Priority Date/Time Associated Diagnosis Comments EKG REPORT 07/11/2023 3:14 PM EDT documented in this encounter Results * EKG REPORT (07/11/2023 3:14 PM EDT) 07/11/2023 3:14 PM EDT Narrative Procedure Note Phan Martinez, - 07/11/2023 3:14 PM EDT REASON FOR STUDY: CONCLUSIONS: Sinus rhythm with 1st degree AV block with Premature atrial complexes Left axis deviation Nonspecific intraventricular conduction block Abnormal QRS-T angle, consider primary T wave abnormality Abnormal ECG When compared with ECG of 01-Nov-2022 12:09, Premature atrial complexes are now Present TN interval has increased Intraventricular conduction delay is now noted. Ventricular Rate: 85 Atrial Rate: 85 TN Interval: 240 QRS Duration: 134 QT/QTc: 426/506 ms P-R-T [place]: 66 : -56 : 96 degrees No Physician Data Unknown EKG documented in this encounter Care Teams Tire Technician Relationship Specialty Start Date End Date Toby Paz MD [address] [place] [address] PCP - General Family Medicine 11/25/14 documented as of this encounter
--- OUTSIDE RECORDS SUMMARY | 2023-09-30 15:29 | External Medical Summary | Summary of Care ---
Author Name Unknown Organization [facility] Address [address] [place] [facility] [place] [place] [place] [address] Phone [phone] Care Team Providers Care Felting Machine Operator Helper Name Role Phone Toby Paz MD Primary Care Provider +1- [phone] Reason for Visit * Reason Comments Outpatient Testing Encounter Details Date Type Department Care Team (Late st Contact Info) Description 07/10/2023 9:50 AM EDT Laboratory Laboratory, [place] [address] [place] [address] [place], [facility] [address] [place] [address] HTN, goal below 130/80; Hepatic [...] Undiagnosed cardiac murmurs 11/29/2001 03/02/2017 Overview: Not [place] on 11/29/01 documented as of this encounter (statuses as of 07/10/2023) Immunizations Name Administration Dates Next Due HEP A - Hepatitis A (Adult > 18 yrs) 06/06/2020 Pneumococcal Conjugate Vacci ne, 20-valent ([id number]) 06/24/2022 Seasonal Influenza Virus Vac cine, Unspecified [...] Description 07/11/2023 1:40 PM EDT Office Visit [place] [address] [place] [address] Brain Baig MD [address] [place] [address] 07/27/2023 3:40 PM EDT Office Visit [place] [address] [place] [place] [phone] Toby Paz MD [address] [place] [address] 08/07/2023 3:00 PM EDT Office Visit Gastroenterolog y, [facility] [address] [place] [address] Keyanna Gordon CRNP [address] [place] [address] 08/31/2023 7:00 AM EDT Appointment [facility], [address] [phone] 08/31/2023 11:30 AM EDT Hospital Encounter [facility] [address] [place] [facility] [place] [address] [facility], In And Out Surgery [address] [place] [place] [address] 08/31/2023 11:30 AM EDT - 08/31/2023 1:20 PM EDT Surgery [place] [facility] [place] [facility] [place] [address] [place] [facility] [place] [address] [facility], In And Out Surgery [address] [place] [place] [address] ANESTHESIA FOR NON-INVASIVE IMAGING (MRI OR CT) 09/01/2023 1:30 PM EDT Hospital Encounter ENDO [facility], Endoscopy Room [facility] [address] [place] [address] Lopez Shi MD [address] [place] [address] 09/01/2023 1:30 PM EDT - 09/01/2023 2:00 PM EDT Surgery ENDO [facility], Endoscopy Room [facility] [address] [place] [phone] Lopez Shi MD [address] [place] [address] ESOPHAGOGASTRODUODENOSCOPY (EGD), FLEXIBLE, TRANSORAL, DIAGNOSTIC 09/11/2023 3:30 PM EDT Office Visit [facility], [facility] [address] [place] [address] Sita Molina PA-C [address] [place] [address] 11/21/2023 5:40 PM EDT Office Visit [address], [place] [phone] Toby Paz MD [address] [place] [address] Pending Results Name Type Priority Associated Diagnoses [...] alcohol documented in this encounter Care Teams Felting Machine Operator Helper Relationship Specialty Start Date End Date Toby Paz MD [address] [place] [address] PCP - General Family Medicine 11/25/14 documented as of this encounter
--- OUTSIDE RECORDS SUMMARY | 2023-09-30 15:29 | External Medical Summary | Summary of Care ---
Author Name Unknown Organization [facility] Address [address] [facility] [place] [address] Phone [phone] Care Team Providers Care Edge Plugger Name Role Phone Toby Paz MD Primary Care Provider +1- [phone] Reason for Visit * Reason Comments Outpatient Testing Encounter Details Date Type Department Care Team (Late st Contact Info) Description 07/10/2023 9:50 AM EDT Laboratory Laboratory, [place] [address] [place] [address] [place], Laboratory [address] [place] [address] HTN, goal below 130/80; Hepatic [...] cardiac murmurs 11/29/2001 03/02/2017 Overview: Not [place] on 11/29/01 documented as of this encounter (statuses as of 07/10/2023) Immunizations Name Administration Dates Next Due HEP A - Hepatitis A (Adult > 18 yrs) 06/06/2020 Pneumococcal Conjugate Vacci ne, 20-valent ([id number]) 06/24/2022 Seasonal Influenza Virus Vac cine, Unspecified [...] Description 07/11/2023 1:40 PM EDT Office Visit [place] [address] [place] [phone] Brain Baig MD [address] [place] [address] 07/27/2023 3:40 PM EDT Office Visit [place] [address] [place] [facility] [place] [phone] Toby Paz MD [address] [place] [address] 08/07/2023 3:00 PM EDT Office Visit Gastroenterolog y, [facility] [address] [place] [address] Keyanna Gordon CRNP [address] [address] 08/31/2023 7:00 AM EDT Appointment [facility], [address] [id number] 08/31/2023 11:30 AM EDT Hospital Encounter [facility], OPERATING ROOM [facility] [address] [facility] [place] [address] [facility], In And Out Surgery [address] [facility] [place] [address] 08/31/2023 11:30 AM EDT - 08/31/2023 1:20 PM EDT Surgery [place] [facility] [place] [facility] [place] [address] [facility] [place] [address] [facility], In And Out Surgery [address] [facility] [place] [address] ANESTHESIA FOR NON-INVASIVE IMAGING (MRI OR CT) 09/01/2023 1:30 PM EDT Hospital Encounter ENDO [facility], Endoscopy Room [facility] [address] [place] [address] Lopez Shi MD [address] [place] [address] 09/01/2023 1:30 PM EDT - 09/01/2023 2:00 PM EDT Surgery ENDO [facility], Endoscopy Room [facility] [address] [place] [phone] Lopez Shi MD [address] [place] [address] ESOPHAGOGASTRODUODENOSCOPY (EGD), FLEXIBLE, TRANSORAL, DIAGNOSTIC 09/11/2023 3:30 PM EDT Office Visit Interventional Pain Center, [facility] [address] [place] [address] Sita Molina PA-C [address] [place] [address] 11/21/2023 5:40 PM EDT Office Visit [address], [place] [phone] Toby Paz MD [address] [place] [address] Pending Results Name Type Priority Associated Diagnoses [...] alcohol documented in this encounter Care Teams Edge Plugger Relationship Specialty Start Date End Date Toby Paz MD [address] [place] [address] PCP - General Family Medicine 11/25/14 documented as of this encounter
--- OUTSIDE RECORDS SUMMARY | 2023-09-30 15:29 | External Medical Summary ---
Author Name Unknown Address Unknown Organization K01:[facility] [place] [address] [place] [address] Laboratory Report Ordering Provider Test Date Status BRENT HO 07/10/2023 09:56:16 Final Normal: <30 mg/g creatinine< br/>High: 30-300 mg/g creatinine
Very High: >300 mg/g creatinine
Nephrotic: >2200 mg/g creatinine Observation Date Value Abnormality Reference (Units ) Status Albumin, Urine 07/10/2023 09:56:16 1.41 (mg/dL) Final Creatinine, Urine 07/10/2023 09:56:16 430 (mg/dL) Final Albumin/Creatinine [Mass Ratio] in Urine 07/10/2023 09:56:16 3 <30 (mg/g Creat) Final Performing Location [facility] [place] [address] [place] [address]
--- OUTSIDE RECORDS SUMMARY | 2023-09-30 15:29 | External Medical Summary | Summary of Care ---
Author Name Unknown Organization [facility] Address [address] [place] [address] Phone [phone] Care Team Providers Care Senior Chemical Process Engineer Name Role Phone Toby Paz MD Primary Care Provider +1- [phone] Reason for Visit * Reason Onset Date Comments Other 06/23/2023 Encounter Details Date Type Department Care Team (Late st Contact Info) Description 06/23/2023 Telephone Gastroenterology, [facility] [address] [facility] [place] [id number] Services, Scheduling [address] [place] [address] Other Allergies Active Allergy Reactions Criticality Noted [...] 2 03/29/2023 Active Vitamin A & D [address] UNIT Oral Tablet Take by mouth. 0 [...] Undiagnosed cardiac murmurs 11/29/2001 03/02/2017 Overview: Not [place] on 11/29/01 documented as of this encounter (statuses as of 06/25/2023) Immunizations Name Administration Dates Next Due HEP A - Hepatitis A (Adult > 18 yrs) 06/06/2020 Pneumococcal Conjugate Vacci ne, 20-valent ([id number]) 06/24/2022 Seasonal Influenza Virus Vac cine, Unspecified [...] Telephone Encounter - Keyanna Gordon CRNP - 06/25/2023 8:13 PM EDT This is a duplicate thread. MRI is for his lumbar spine, so not ordered by GI. I believe she is an ortho provider for [facility]. The pt is admitted to [facility]. I will assist him/his family with letting that office know that he was unable and that he can call [facility] to reschedule when he is ready. YOGESH Orta * Telephone Encounter - Yissel Dumont LPN [...] 3:00 PM EDT Office Visit Gastroenterology , [facility] [address] [place] [address] Keyanna Gordon CRNP [address] [place] [address] 09/01/2023 1:30 PM EDT Hospital Encounter [facility]O [facility], Endoscopy Room [facility] [address] [place] [phone] Lopez Shi MD [address] [place] [address] 09/01/2023 1:30 PM EDT - 09/01/2023 2:00 PM EDT Surgery ENDO [facility], Endoscopy Room [facility] [address] [place] [phone] Lopez Shi MD [address] [place] [address] ESOPHAGOGASTRODUODENOSCOPY (EGD), FLEXIBLE, TRANSORAL, DIAGNOSTIC 10/03/2023 11:40 AM EDT Office Visit [place] [address] [place] [facility] [place] [address] Toby Paz MD [address] [place] [facility] [place] [address] 11/21/2023 5:40 PM EDT [facility] [place] [address] [facility] [address] Toby Paz MD [address] [place] [address] Scheduled Procedures Name Priority Associated Diagnoses Date/Ti [...] filedocumented as of this encounter Care Teams Senior Chemical Process Engineer Relationship Specialty Start Date End Date Toby Paz MD [address] [place] [address] PCP - General Family Medicine 11/25/14 documented as of this encounter
--- OUTSIDE RECORDS SUMMARY | 2023-09-30 15:29 | External Medical Summary | Summary of Care ---
Author Name Unknown Organization [facility] Address [address] [facility] [place] [address] Phone [phone] Care Team Providers Care Regional Sales Leader Name Role Phone Toby Paz MD Primary Care Provider +1- [phone] Reason for Referral * Evaluate & Treat - Unlimited Visits (Within 10 days (routine)) - Authorized Specialty Diagnoses / Procedures Referred By Contac t Referred To Contact Pain Management / Pain Medicine Diagnoses Chronic right-sided low back pain with right-sided sciatica Rao Ochoa MD [address] [place] [address] Referral ID Status Reason Start Date Expiration Date Visits Requested Visits Authorized [id number] Authorized Specialty Services Required 07/06/2023 999 999 Question Answer Referral Priority Within 10 days (routine) Where should this appointment be scheduled? [facility] Reason for referral? Interventional Pain Management - (Injection) What condition is the patient being referred for? Lumbar Radiculopathy What is the preferred location to have this test performed? [facility] Comments Patient Name: Mauro Liu Date of : 1965 Department Phone Number: MRI or CT (if unable to have a MRI) is recommended if any of the following apply: 1. Patient has neck or back pain with radiation to extremities. A previous MRI will be accepted if symptoms unchanged since prior MRI. 2. Spinal surgery since last MRI. If yes, order a MRI with and without contrast. 3. Hx or ongoing cancer treatment. Patient will need spine x-ray (Ap/Lat) for axial neck or back pain if not done previously. Fax No. [facility] [phone] or contact front desk team member [phone] Fax No. [facility] [phone] or contact front desk team member [phone] Fax No. [facility] [phone] or contact front desk team member [phone] Reason for Visit * Reason Comments Acute Pt here today for a hospital follow up Hospital Follow-Up Encounter Details Date Type Department Care Team (Latest Contact Info) Description 07/06/2023 4:00 PM EDT Office Visit [facility] [address] [place] [address] Rao Ochoa MD [address] [place] [address] Hepatic encephalopathy (HCC)*; Alcoholic cirrhosis of liver without ascites (HCC); Chronic right-sided low back pain with right-sided sciatica; HTN, goal below 130/80; Thrombocytopenia (HCC); Avascular necrosis of bone of left hip (HCC); S/P hip replacement, left; Other intervertebral disc displacement, lumbosacral region Allergies Active Allergy Reactions Criticality Noted Date Comments Other Allergy (See Comments) Anaphylaxis High 06/21/2018 Bee stings- swelling documented as of this encounter (statuses as of 07/06/2023) Medications Medication Sig Dispensed Refills Start Date [...] at bedtime. 30 Capsule 5 07/06/2023 Active traMADol HCl 50 MG Oral Tablet (Ultram) Take 1 Tablet by mouth every 8 hours as needed for Pain, Moderate. 0 4 Discontinue d(Patient preference/ discontinua tion) Hospital, Clinic, or Other Facility Administered Medication Ordered Dose Route Frequency Start Date End Date Status albuterol sulfate (PROVENTIL) (2.5 MG/3ML) 0.083% inhalation solution 2.5 mgIndications:SOB (shortness of breath) 2.5 mg NEBULIZER Q4H PRN 05/10/2018 Act guzman documented as of this encounter (statuses as of 07/06/2023) Active Problems Problem Noted Date Diagnosed Date [...] as of this encounter (statuses as of 07/06/2023) Resolved Problems Problem Noted Date Diagnosed Date Resolved Date History of alcohol abuse 05/22/2023 Alcohol dependence, uncomplicated 01/17/2023 05/22/2023 Avascular necrosis of bone of hip 05/10/2022 05/22/2023 Chronic alcohol abuse 06/17/20212023 Facial swelling 06/09/2017 08/07/2019 Urticaria 06/09/2017 08/07/2019 Intestinal obstruction 05/09/201203/02 CLASSICAL MIGRAINE WITHOU ME NTION OF INTRACTABLE MIGRAINE 11/29/2001 08/07/2019 Undiagnosed cardiac murmurs 11/29/2001 03/02/2017 Overview: Not [place] on 11/29/01 documented as of this encounter (statuses as of 07/06/2023) Immunizations Name Administration Dates Next Due HEP A - Hepatitis A (Adult > 18 yrs) 06/06/2020 Pneumococcal Conjugate Vacci ne, 20-valent ([id number]) 06/24/2022 Seasonal Influenza Virus Vac cine, Unspecified [...] Sign Reading Time Taken Comments Blood Pressure 126/68 07/06/2023 4:02 PM EDT Pulse 71 07/06/2023 4:02 PM EDT Temperature 37.2 C (98.9 F) 07/06/2023 4:02 PM ED T Respiratory Rate 18 07/06/2023 4:02 PM EDT Oxygen Saturation 97% 07/06/2023 4:02 PM EDT Inhaled Oxygen Concentration - - Weight 86.2 kg (190 lb) 07/06/2023 4:02 PM EDT Height - - Body Mass Index 28.06 05/10/2023 5:59 PM EST documented in this encounter Functional Status Functional Status Response Date of Assess ment Does this person have seriou s difficulty walking or climbing stairs? Yes 08/23/2021 documented as of this encounter Progress Notes * Rao Ochoa MD - 07/06/2023 4:15 PM EDT Subjective Mauro Liu is a 57 year old male. Chief Complaint Patient presents with Acute Pt here today for a hospital follow up Hospital Follow-Up HPI: Here for hospital fu Admission jun 24, Discharge jun 25 Dx : acute hepatic encephalopathy , liver cirrhosis Doing ok today Taking lactulose 4 times per day Encouraged water intake Taking all his meds, BP stable Lt hip surgery, pain seems better But has chronic progressing rt leg pain from back issues And is scheduled MRI lumbar the end of august ( he needs general anesthesia ) And is scheduled for B/L cataract surgery soon , will see Dr Baig next week Has been taking neurontin 100 mg tid ( does not remember the reason) Will try higher dose at night since his leg pain back pain is worse at night Neurontin is not metabolized by liver Should avoid opioid pain med due to liver condition PMH: Patient Active Problem List Diagnosis Code [...] by mouth at bedtime. 30 Capsule 5 EpiPen 2-Dave 0.3 MG/0.3ML Injection Solution Auto-injector For a severe reaction: Place orange end against the outer thigh, press firmly, hold in place for 10 seconds and go to the Emergency room. (Patient not taking: Reported on 07/06/2023) 2 Each 1 Current Facility-Administered Medications Medication Dose Route Frequency [...] performed by Lopez Shi MD at ENDOSCOPY [facility] COLONOSCOPY, DIAGNOSTIC (RECTUM) 05/18/2018 adenomatous polyps, diverticulosis, repeat 1yr/COLONOSCOPY FLEXIBLE PROXIMAL DIAGNOSTIC performed by Lopez Shi MD at [facility] COLONOSCOPY, DIAGNOSTIC (RECTUM) 05/30/2019 adenomatous polyps, diverticulosis, repeat 3 yrs / COLONOSCOPY FLEXIBLE PROXIMAL DIAGNOSTIC performed by Lopez Shi MD at [facility] COLONOSCOPY, DIAGNOSTIC (RECTUM) 06/30/2021 1-4mm in rectum, otherwise normal / biopsies normal / 5 year recall / COLONOSCOPY FLEXIBLE PROXIMALDIAGNOSTIC performed by Jena Camargo MD at [facility] EGD, FLEXIBLE, DIAGNOSTIC 05/05/2014 normal bx/ESOPHAGOGASTRODUODENOSCOPY (EGD), FLEXIBLE, TRANSORAL, DIAGNOSTIC performed by Ki Huang MD at [facility] EGD, FLEXIBLE, DIAGNOSTIC 04/11/2016 Schatzki ring, hiatal hernia, gastritis/ESOPHAGOGASTRODUODENOSCOPY (EGD), FLEXIBLE, TRANSORAL, DIAGNOSTIC performed by Ki Huang MD at [facility] EGD, FLEXIBLE, DIAGNOSTIC 01/24/2018 w/ [facility] EGD, FLEXIBLE, DIAGNOSTIC 07/17/2018 normal biopsies/ESOPHAGOGASTRODUODENOSCOPY (EGD), FLEXIBLE, TRANSORAL, DIAGNOSTIC performed by Lopez Shi MD at [facility] EGD, FLEXIBLE, DIAGNOSTIC 07/07/2020 sm hiatal hernia / ESOPHAGOGASTRODUODENOSCOPY (EGD), FLEXIBLE, TRANSORAL, DIAGNOSTIC performed by Lopez Shi MD at [facility] EGD, FLEXIBLE, DIAGNOSTIC 09/03/2021 esophageal varices, repeat 1 yr / ESOPHAGOGASTRODUODENOSCOPY (EGD), FLEXIBLE, TRANSORAL, DIAGNOSTICperformed by Alen Garcia DO at [facility] EGD, FLEXIBLE, DIAGNOSTIC 07/06/2022 Portal hypertensive gastropathy, eso varices, mild-mod inflammation on bx / ESOPHAGOGASTRODUODENOSCOPY (EGD), FLEXIBLE, TRANSORAL, DIAGNOSTIC performed by Lopez Shi MD at [facility] EGD, W/ENDOSCOPIC US 06/26/2018 retained food, repeat study/ESOPHAGOGASTRODUODENOSCOPY (EGD), FLEXIBLE, TRANSORAL, ENDOSCOPIC ULTRASOUND performed by Lopez Shi MD at ENDOSCOPY [facility] EGD, W/ENDOSCOPIC US 07/17/2018 sludge gallbladder/ESOPHAGOGASTRODUODENOSCOPY (EGD), FLEXIBLE, TRANSORAL, ENDOSCOPIC ULTRASOUND performed by Lopez Shi MD at ENDOSCOPY [facility] IR BIOPSY 02/14/2022 LAPAROSCOPY; CHOLECYSTECTOMY TN ARTHRP ACETBLR/PROX FEM PROSTC AGRFT/ALGRFT Left 04/08/2023 REDUCTION OF 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 04/26/2012 Exploratory laparotomy with extensive lysis of adhesions and repair of small bowel serosal REMOVAL OF RUPTURED APPENDIX 1977 Appendectomy, Rupt Appendx+Abscess Review of patient's allergies indicates: Allergen Reactions Other Allergy (See Comments) Anaphylaxis Bee stings- swelling Family History Problem Relation Age of Onset Neurological Disorder Mother [place] Heart Disorder Father [place] in 40's Stroke Father Heart failure Father [...] date: 05/10/1995 Quit date: 05/10/2015 Years since quittin.1 Passive exposure: Never Smokeless tobacco: Never Tobacco [...] file Review of Systems Constitutional: Positive for fatigue. Negative for activity change, appetite change, chills, diaphoresis, fever and unexpected weight change. Eyes: Positive for visual disturbance. Respiratory: Negative for cough, chest tightness, shortness of breath and wheezing. Cardiovascular: Negative for chest pain, palpitations and leg swelling. Gastrointestinal: Positive for abdominal distention (fullness) and diarrhea. Negative for abdominalpain, constipation, nausea and vomiting. Endocrine: Negative. Musculoskeletal: Positive for arthralgias, back pain and gait problem. Allergic/Immunologic: Positive for immunocompromised state. Neurological: Positive for weakness (rt leg) and numbness (rt leg). Negative for dizziness and light-headedness. Psychiatric/Behavioral: Positive for dysphoric mood and sleep disturbance (back and rt leg pain). Negative for agitation and behavioral problems. The patient is nervous/anxious. Objective BP 126/68 | Pulse 71 | Temp 37.2 C (98.9 F) (Infrared ) | Resp 18 | Wt 86.2 kg (190 lb) | SpO2 97% | BMI 28.06 kg/m | BSA 2.05 m Physical Exam Constitutional: General: He is not in acute distress. Appearance: Normal appearance. He is not ill-appearing, toxic-appearing or diaphoretic. HENT: Head: Normocephalic and atraumatic. Nose: Nose normal. Cardiovascular: Rate and Rhythm: Normal rate and regular rhythm. Pulses: Normal pulses. Heart sounds: Normal heart sounds. No murmur heard. Pulmonary: Effort: Pulmonary effort is normal. No respiratory distress. Breath sounds: Normal breath sounds. No stridor. No wheezing, rhonchi or rales. Chest: Chest wall: No tenderness. Abdominal: Palpations: Abdomen is soft. Musculoskeletal: General: Tenderness present. Right lower leg: No edema. Left lower leg: No edema. Neurological: General: No focal deficit present. Mental Status: He is alert and oriented to person, place, and time. Cranial Nerves: No cranial nerve deficit. Psychiatric: Behavior: Behavior normal. ASSESSMENT/PLAN: Hepatic encephalopathy (HCC) (Primary) - AMMONIA; Future; Expected date: 07/06/2023 - COMPREHENSIVE METABOLIC PANEL; Future; Expected date: 07/06/2023 Alcoholic cirrhosis of liver without ascites (HCC) - COMPREHENSIVE METABOLIC PANEL; Future; Expected date: 07/06/2023 Chronic right-sided low back pain with right-sided sciatica - PAIN MEDICINE REFERRAL OP HTN, goal below 130/80 - ALBUMIN / CREATININE RATIO, URINE; Future; Expected date: 07/06/2023 - COMPREHENSIVE METABOLIC PANEL; Future; Expected date: 07/06/2023 Thrombocytopenia (HCC) Avascular necrosis of bone of left hip (HCC) S/P hip replacement, left Other intervertebral disc displacement, lumbosacral region Other orders - Gabapentin 300 MG Oral Capsule (Neurontin); Take 1 Capsule by mouth at bedtime. Check-out note: Pain medicine after MRI test F/u tests Neurontin 300 mg qhs to try F/u MRI lumbar and then pain medicine f/u Rao Ochoa MD * Dayana Menjivar LPN - 07/06/2023 4:04 PM EDT Urine albumin/creatinine ratio ordered today. Provider aware. documented in this encounter Nursing Notes * Dayana Menjivar LPN - 07/06/2023 4:00 PM EDT Chief Complaint Patient presents with Acute Pt here today for a hospital follow up Hospital Follow-Up documented in this encounter Plan of Treatment Upcoming Encounters Date Type Department Care Team (Latest Contact Info) Description 07/11/2023 1:40 PM EDT Office Visit [facility] [address] [facility] [address] Brain Baig MD [address] [place] [address] 07/27/2023 3:40 PM EDT Office Visit [facility] [place] [address] [facility] [place] [address] Toby Paz MD [address] [place] [facility] [place] [address] 08/07/2023 3:00 PM EDT Office Visit Gastroenterolog y, [facility] [address] [place] [address] Keyanna Gordon CRNP [address] [place] [address] 08/31/2023 7:00 AM EDT Appointment [facility], [place] [address] [place] [facility] [place] [address] 08/31/2023 11:30 AM EDT Hospital Encounter OR [facility], OPERATING ROOM [facility], [facility] [address] [place] [facility] [place] [address] c, In And Out Surgery [address] [place] [place] [facility] [address] 08/31/2023 11:30 AM EDT - 08/31/2023 1:20 PM EDT Surgery OR [facility], OPERATING ROOM [facility] [address] [place] [facility] [place] [address] [facility], In And Out Surgery [address] [place] [place] [facility] [address] ANESTHESIA FOR NON-INVASIVE IMAGING (MRI OR CT) 09/01/2023 1:30 PM EDT Hospital Encounter [facility], Endoscopy Room [facility] [address] [place] [phone] Lopez Shi MD [address] [place] [address] 09/01/2023 1:30 PM EDT - 09/01/2023 2:00 PM EDT Surgery ENDO [facility], Endoscopy Room [facility] [address] [place] [phone] Lopez Shi MD [address] [place] [address] ESOPHAGOGASTRODUODENOSCOPY (EGD), FLEXIBLE, TRANSORAL, DIAGNOSTIC 09/11/2023 3:30 PM EDT Office Visit [facility] Center, [facility] [address] [place] [address] Sita Molina PA-C [address] [place] [address] 11/21/2023 5:40 PM EDT Office Visit [facility] [address] [place] [address] Toby Paz MD [address] [place] [address] Scheduled Orders Name Type Priority Associated Diagnoses Orde r Schedule ALBUMIN / CREATININE RATIO, URINE Lab Routine HTN, goal below 130/80 Expected: 07/06/2023, Expires: 07/05/2024 AMMONIA Lab Routine Hepatic encephalopathy (HCC) Expected: 07/06/2023, Expires: 07/05/2024 COMPREHENSIVE METABOLIC PANEL Lab Routine HTN, goal below 130/80 Alcoholic cirrhosis of liver without ascites (HCC) Hepatic encephalopathy (HCC) Expected: 07/06/2023 (Approximate), Expires: 07/05/2024 Scheduled Procedures Name Priority Associated Diagnoses Date/Ti me ANESTHESIA FOR NON-INVASIVE IMAGING (MRI OR CT) Pain in left hip 08/31/2023 11:30 AM EDT ESOPHAGOGASTRODUODENOSCOPY ( EGD), FLEXIBLE, TRANSORAL, DIAGNOSTIC Cirrhosis (HCC) 09/01/2023 1:30 PM EDT COLONOSCOPY FLEXIBLE PROXIMA L DIAGNOSTIC Recall History of colon polyps Scheduled Referrals Name Type Priority Associated Diagnoses Orde r Schedule PAIN MEDICINE REFERRAL OP Referral Within 10 days (routine) Chronic right-sided low back pain with right-sided sciatica Ordered: 07/06/2023 Health Maintenance Due Date Last Done Comments [...] without ascites (HCC) Alcoholic cirrhosis of liver Chronic right-sided low back pain with right-sided sciatica HTN, goal below 130/80 Unspecified essential hypertension Thrombocytopenia (HCC) Thrombocytopenia, unspecified Avascular necrosis of bone of left hip (HCC) S/P hip replacement, left Other intervertebral disc displacement, lumbosacral region Pain in left hip Pain in joint, pelvic region and thigh Cirrhosis (HCC) Cirrhosis of liver without mention of alcohol documented in this encounter Care Teams Regional Sales Leader Relationship Specialty Start Date End Date Toby Paz MD [address] [place] [address] PCP - General Family Medicine 11/25/14 documented as of this encounter"
--- OUTSIDE RECORDS SUMMARY | 2023-09-30 15:29 | External Medical Summary ---
Author Name Unknown Address Unknown Organization [id number]:[facility] [place] [address] [facility] [place] [id number] Laboratory Report Ordering Provider Test Date Status BRENT HO 07/10/2023 09:56:16 Final Observation Date Value Abnormality Reference (Units ) Status BUN 07/10/2023 09:56:16 14 6-20 (mg/dL) Final Creatinine 07/10/2023 09:56:16 0.8 0.6-1.2 (mg/dL) Final Glomerular filtration rate/1.73 sq M.predicted [Volume Rate/Area] in Serum, Plasma or Blood by Creatinine-based formula (CKD-EPI) 07/10/2023 09:56:16 >90 >=60 (mL/min) Final eGFR is calculated based on the CKD-EPI 2020 equation Sodium 07/10/2023 09:56:16 140 135-146 (m mol/L) Final Potassium 07/10/2023 09:56:16 4.2 3.5-5.1 (m mol/L) Final Cl 07/10/2023 09:56:16 110 Above high normal 98 -107 (mmol/L) Final CO2 07/10/2023 09:56:16 21 Below low normal 22- 32 (mmol/L) Final Anion gap 07/10/2023 09:56:16 9 7-15 (mmol /L) Final Glucose 07/10/2023 09:56:16 100 70-120 (mg /dL) Final Albumin 07/10/2023 09:56:16 3.4 Below low normal 3.8 -5.0 (g/dL) Final AST (Aspartate aminotransferase) 07/10/2023 09:56:16 56 Above high normal 10-50 (U/L) Final Alk Phos 07/10/2023 09:56:16 164 Above high normal 35 -130 (U/L) Final Bilirubin, Total 07/10/2023 09:56:16 1.6 Above high no rmal <=1.2 (mg/dL) Final Calcium 07/10/2023 09:56:16 8.5 8.4-10.2 ( mg/dL) Final Protein 07/10/2023 09:56:16 5.8 Below low normal 6.0 -8.3 (g/dL) Final ALT (Alanine aminotransferase) 07/10/2023 09:56:16 38 10-50 (U/L) Ryder joyce Performing Location [facility] [place] [address] [facility] [id number]
--- NOTE | 2023-09-30 16:07 | Emergency Department Note ---
Impression & Plan Encephalopathy, hepatic, Atypical chest pain ED Provider Note Provider: Linden Moran MD DATE OF SERVICE: 09/30/2023 CHIEF COMPLAINT: Confusion, chest pain, cough HISTORY OF PRESENT ILLNESS: Patient is a 58-year-old gentleman past medical history of GERD, liver cirrhosis, SBO, and hepatic encephalopathy presenting here today reporting that starting yesterday he developed some confusion and forgetfulness. Worsened today on standing his feet but no falls. No syncope. Reports some central chest discomfort of the right shoulder but worse with movement or touch of the chest. Denies any significant abdominal pain or nausea or vomiting or diarrhea. No swelling of the extremities. States compliance with home medications including his lactulose. States he is having some loose stools with this. No fevers reported. No significant sore throat but a mild cough. Denies shortness of breath. No numbness or tingling reported in the extremities. Does seem somewhat similar when he had issues with elevated ammonia in the past. No recent alcohol use reported. Is undergoing outpatient GI workup with [facility]. PAST MEDICAL HISTORY: As noted above MEDICATIONS: Reviewed on medications and the patient states compliance SOCIAL HISTORY: Former smoker. Not currently drinking history of alcohol use in the more distant past. PHYSICAL EXAM: GENERAL: alert and oriented to verbal stimuli in no acute distress on stretcher otherwise resting with his eyes closed, fatigued and somewhat slow to answer Head: normocephalic and atraumatic EYES: No no significant injection or discharge with bilaterally droopy eyelids. NECK: Trachea midline. Supple. ENT: Mucous membranes pink and moist. Pharynx without erythema or exudate. LUNGS: Airway patent. No retractions. Breath sounds clear with good air entry bilaterally. HEART: Regular rate and rhythm. Mild mid chest wall tenderness without crepitus ABDOMEN: Soft and non-tender, without guarding or rebound. SKIN: Acyanotic, warm, dry, without rashes EXTREMITIES: Without swelling, tenderness or deformity NEUROLOGICAL: No aphasia. No facial droop perhaps some slight slurred speech. Gross sensation in the extremities intact with generalized weakness in all 4 extremities. EK bpm sinus rhythm with PVC. No acute ST segment elevation or depression with a QTc of 447. Lead III T wave inversion noted. CONTINUOUS CARDIAC MONITORING: was ordered and showed a heart rate of 60s to 70s bpm in normal sinus rhythm Patient's laboratory studies and imaging reviewed. Differential includes Infection, dehydration, metabolic abnormality, hypo/hyperglycemia, electrolyte disturbance, anemia, hypoxia, cardiac sources, intracerebral event, toxicologic, neurologic, as well as other pathologies. IMPRESSION/MEDICAL DECISION MAKING: Patient drowsy in appearance but following commands. Somewhat slow to answer. Seems generalized and question given his liver history of this is hepatic encephalopathy. Will give dose of additional lactulose as well as rifaximin. Ammonia and blood work was sent. Reproducible anterior chest wall tenderness and EKG is reassuring. No syncope or trauma reported. Chest x-ray obtained with the reports of some pain here as well as cough. Lower suspicion for PE or pneumonia. Seen for musculoskeletal as is reproducible. Benign abdomen otherwise. Again seems generalized as opposed to focal deficits but will obtain a head CT to exclude intracranial bleeding but doubt this represents stroke. Does not appear meningitic and afebrile. No fevers reported. Respiratory viral panel was completed. Blood work without leukocytosis. No anemia. Stable thrombocytopenia. Bilirubin 1.8 from prior of 1.6. No severe change. No send electrolyte abnormalities signs of renal dysfunction. Ammonia 145 today. Admitted for hepatic encephalopathy in June 01, 2024 and this seems consistent with his presentation. Again did receive lactulose as well as rifaximin here. INR 1.3. Negative blood smear for anaplasmosis/babesiosis. Updated patient and family and agreeable to stay for further treatment of this. Hospitalist team consulted. DIAGNOSIS: Hepatic encephalopathy, atypical chest pain DISPOSITION: Hospitalist will evaluate Patient was agreeable with this plan. Past Med/Surg History Problem List Chest discomfort Hepatic encephalopathy Atypical chest pain (Acute) Encephalopathy, hepatic (Acute) Depression GERD (gastroesophageal reflux disease) Acute confusion (Acute) Hyperammonemia (Acute) Thrombocytopenia (Acute) Acute hepatic encephalopathy (Acute) History of total left hip replacement (Acute) Bilateral leg pain (Acute) Altered mental status (Acute) Confusion Avascular necrosis of femur Hip pain Ambulatory dysfunction (Acute) Hyperammonemia (Acute) Acute pain of left hip (Acute) Alcoholic cirrhosis Dilated aortic root Acute alteration in mental status (Acute) Thrombocytopenia (Acute) Bilateral arm weakness (Acute) Acute hepatic encephalopathy (Acute) H/O angioedema (Chronic) ongoing, follows with allergy Elevated LFTs (Acute) HTN (hypertension) (Chronic) Acid reflux Abnormal PFT Thrombocytopenia UTI (urinary tract infection) Cirrhosis of liver Cough Encounter for pre-operative examination RUQ pain Insomnia (Chronic) Intractable right upper quadrant abdominal pain (Acute) GERD (gastroesophageal reflux disease) (Chronic) Migraine (Chronic) Medical History History of ascites Acute alteration in mental status Nausea HLD (hyperlipidemia) Hypertension Hyperlipidemia Surgical History History of esophagogastroduodenoscopy (EGD) History of colonoscopy History of bowel resection 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 History of appendectomy History of tooth extraction Family History Father Hearing loss Hypertension Stroke Heart disease Other No pertinent family history in first degree relatives Denies family history of No family history of adverse response to anesthesia No family history of bleeding disorder Allergies Asthma Social History Smoking Status: Former smoker Tobacco Type: Cigarettes Cigarettes Per Day: 1-2; Second Hand Exposure: No; Do You Dip or Chew Tobacco: No; Hx Alcohol Use: No Hx Substance Use: No Preferred Language: Upper Sorbian Communication Ability: Effective 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 Beliefs That Will Affect Care: None marital status: Current Living Situation: Significant Other Current Living Situation Comment: LIVES WITH GIRLFRIEND 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 Safe at Home: Yes Assistive Devices: Cane Allergies Allergies Allergy/AdvReac Type Severity Reaction Status Date / Time bee venom protein (honey bee) Allergy Severe Anaphylaxis--CARRIES Verified 09/30/23 16:55 AN EPIPEN Home Meds Home Medications Medication Instructions Recorded Confirmed atorvastatin 20 mg tablet 20 mg PO QAM 01/18/18 09/30/23 pantoprazole 40 mg tablet,delayed 40 mg PO BID 07/26/18 09/30/23 release lactulose 10 gram/15 mL oral 20 g PO QID 11/24/21 09/30/23 solution magnesium oxide 400 mg (241.3 mg 400 mg PO AMHS 11/24/21 09/30/23 magnesium) tablet gabapentin 100 mg capsule 100 mg PO BID 02/23/22 09/30/23 rifaximin 550 mg tablet (Xifaxan) 550 mg PO BID 02/23/22 09/30/23 fluoxetine 10 mg capsule 10 mg PO QAM 01/11/23 09/30/23 spironolactone 25 mg tablet 25 mg PO DAILY 01/11/23 09/30/23 ferrous sulfate 325 mg (65 mg 325 mg PO DAILY 05/11/23 09/30/23 iron) tablet (iron) trazodone 50 mg tablet 100 mg PO HS 05/11/23 09/30/23 epinephrine 0.3 mg/0.3 mL 0.3 mg IM DIRECTED PRN Allergic 09/30/23 09/30/23 injection, auto-injector (EpiPen) Reaction gabapentin 300 mg capsule 300 mg PO HS 09/30/23 09/30/23 lorazepam 0.5 mg tablet 0.5 mg PO Q6H PRN Anxiety 09/30/23 09/30/23 Previous Rx's Medication Instructions Recorded furosemide 40 mg tablet 20 mg (1/2 x 40 mg) PO DAILY #15 06/26/23 tabs Results & Data (ED) Vital Signs Vital Signs - 24 hr 09/30/23 15:21 09/30/23 15:30 09/30/23 15:39 Temperature 36.6 C Temperature Source Oral Pulse Rate 77 65 78 Pulse Rate [Left Finger] Pulse Rhythm Regular Pulse Rhythm [Left Finger] Pulse Strength [Left Finger] Respiratory Rate 22 20 Respiratory Effort / Characteristics Respiratory Depth Normal Respiratory Pattern Blood Pressure 132/76 Blood Pressure [Left Arm] Blood Pressure Mean 94 Blood Pressure Mean [Left Arm] Blood Pressure Position [Left Arm] Pulse Oximetry 98 97 Oxygen Delivery Method Room Air Room Air Sepsis Recent Fever Within 48 Hours No Sepsis New/Unexplained Change in Mental Status Yes Sepsis Action Taken by Nursing No Action Required 09/30/23 17:00 Temperature Temperature Source Pulse Rate Pulse Rate [Left Finger] 68 Pulse Rhythm Pulse Rhythm [Left Finger] Regular Pulse Strength [Left Finger] Normal Respiratory Rate 20 Respiratory Effort / Characteristics Non-Labored Spontaneous Respiratory Depth Normal Respiratory Pattern Regular Blood Pressure Blood Pressure [Left Arm] 158/77 H Blood Pressure Mean Blood Pressure Mean [Left Arm] 104 Blood Pressure Position [Left Arm] Lying Pulse Oximetry 98 Oxygen Delivery Method Room Air Sepsis Recent Fever Within 48 Hours Sepsis New/Unexplained Change in Mental Status Sepsis Action Taken by Nursing Laboratory Data 09/30/23 15:36 09/30/23 15:36 Lab Results 09/30/23 09/30/23 09/30/23 Range/Units 15:36 16:01 16:03 WBC 5.93 (4.8-10.8) K/ul RBC 4.66 L (4.70-6.10) M/uL Hgb 15.6 (14.0-18.0) g/dl Hct 44.6 (42.0-52.0) % MCV 95.7 (80.0-100.0) fL MCH 33.5 (25.0-34.0) pg MCHC 35.0 (32.0-36.0) g/dL RDW Std Deviation 53.6 H (36.4-46.3) fL RDW Coeff of Fabiola 15.1 H (11.5-14.5) % Plt Count 42 L (130-400) K/uL MPV 13.1 H (9.4-12.4) fL Immature Gran % (Auto) 0.2 % Neut % (Auto) 57.8 % Lymph % (Auto) 21.6 % [place] % (Auto) 12.1 % Eos % (Auto) 7.6 % Baso % (Auto) 0.7 % Neut # (Auto) 3.43 (1.40-6.50) K/uL Lymph # (Auto) 1.28 (1.20-3.40) K/uL [place] # (Auto) 0.72 H (0.11-0.59) K/uL Eos # (Auto) 0.45 (0.00-0.50) K/uL Baso # (Auto) 0.04 (0.00-0.20) K/uL Immature Gran # (Auto) 0.01 (0.01-0.20) K/uL PT 13.4 H (9.0-12.0) Seconds INR 1.3 H (0.9-1.1) APTT 30 (21-31) Seconds PTT Ratio 1.1 Sodium 140 (136-145) mmol/L Potassium 3.9 (3.5-5.1) mmol/L Chloride 111 H (98-107) mmol/L Carbon Dioxide 22 (21-32) mmol/L Anion Gap 7 (3-11) BUN 15 (6-23) mg/dl Creatinine 0.82 (0.6-1.4) mg/dl Est Cr Clr Drug Dosing 104.8 ml/min Est GFR ( Amer) 112.2 ml/min Est GFR (Non-Af Amer) 96.8 ml/min BUN/Creatinine Ratio 18.3 (10-20) Glucose 78 (70-99(Fasting)) mg/dl Calcium 9.1 (8.6-10.3) mg/dl Total Bilirubin 1.8 H (0.2-1.0) mg/dl AST 47 H (13-39) U/L ALT 30 (7-52) U/L Alkaline Phosphatase 127 H (34-104) U/L Ammonia 145.0 H (18-72) umol/L Troponin I High Sens 5.8 (0-20) pg/ml Total Protein 6.8 (6.0-8.3) gm/dl Albumin 3.6 (3.4-5.0) gm/dl Globulin 3.2 (2.5-4.0) gm/dl Albumin/Globulin Ratio 1.1 (0.9-2) Adenovirus (PCR) Not Detected (NotDetected) Anaplasma Smear See Comment Babesia Smear See Comment B. pertussis DNA (PCR) Not Detected (NotDetected) B.parapertussis DNA PCR Not Detected (NotDetected) Lyme Disease Screen Negative (Negative) C. pneumoniae DNA (PCR) Not Detected (NotDetected) Coronavirus OC43 (PCR) Not Detected (NotDetected) Coronavirus HKU1 (PCR) Not Detected (NotDetected) Coronavirus 229E (PCR) Not Detected (NotDetected) SARS-CoV-2 (PCR) Not Detected (NotDetected) Coronavirus NL63 (PCR) DETECTED A (NotDetected) Human Metapneumovir PCR Not Detected (NotDetected) Influenza Type A (PCR) Not Detected (NotDetected) Influenza Type B (PCR) Not Detected (NotDetected) M. pneumoniae (PCR) Not Detected (NotDetected) Parainfluenza 1 (PCR) Not Detected (NotDetected) Parainfluenza 2 (PCR) Not Detected (NotDetected) Parainfluenza 3 (PCR) Not Detected (NotDetected) Parainfluenza 4 (PCR) Not Detected (NotDetected) RSV (PCR) Not Detected (NotDetected) Entero/Rhino (PCR) Not Detected (NotDetected) Administered Medications Gabapentin (Gabapentin 300 Mg Cap) 300 mg PO HS ANNMARIE Stop: 10/30/23 20:59 Last Admin: 09/30/23 20:54 Dose: 300 mg Documented By: ALMAZ Lactulose (Lactulose Syrup 30 Gm/45 Ml Udp) 30 gm PO QID ANNMARIE Stop: 10/30/23 20:59 Last Admin: 09/30/23 20:54 Dose: 30 gm Documented By: ALMAZ Magnesium Oxide (Magnesium Oxide 400 Mg Tab) 400 mg PO AMHS ANNMARIE Stop: 10/30/23 20:59 Last Admin: 09/30/23 20:54 Dose: 400 mg Documented By: ALMAZ Pantoprazole Sodium (Pantoprazole 40 Mg Tab) 40 mg PO BID ANNMARIE Stop: 10/30/23 20:59 Last Admin: 09/30/23 20:54 Dose: 40 mg Documented By: ALMAZ Rifaximin (Rifaximin 550 Mg Tablet) 550 mg PO BID ANNMARIE Stop: 10/30/23 20:59 Last Admin: 09/30/23 20:54 Dose: 550 mg Documented By: ALMAZ Trazodone HCl (Trazodone Hcl 100 Mg Tab) 100 mg PO HS ANNMARIE Stop: 10/30/23 20:59 Last Admin: 09/30/23 20:54 Dose: 100 mg Documented By: ALMAZ Discontinued Medications Lactulose (Lactulose Syrup 30 Gm/45 Ml Udp) 30 gm PO NOW STA Stop: 09/30/23 16:05 Last Admin: 09/30/23 16:44 Dose: 30 gm Documented By: NGOZI Lactulose (Lactulose Syrup 20 Gm/30 Ml Udc) Confirm Administered Dose 20 gm .ROUTE .STK-MED ONE Stop: 09/30/23 16:29 Last Admin: 09/30/23 16:42 Dose: Not Given Documented By: NGOZI Rifaximin (Rifaximin 550 Mg Tablet) 550 mg PO ONCE ONE Stop: 09/30/23 16:05 Last Admin: 09/30/23 16:45 Dose: 550 mg Documented By: NGOZI Imaging Data Radiologist's Impression: Chest X-Ray 09/30/23 15:33 XR chest 1V portable CLINICAL HISTORY: Chest pain, nonspecific COMPARISON STUDY: Chest CT May 11, 2023. Chest radiograph June 25, 2023. FINDINGS: Lung volumes are normal. Lungs are clear. There is no pneumothorax or pleural effusion. Cardiac size is normal. Mediastinal contours are normal. There is no evidence for pulmonary edema. IMPRESSION: No acute cardiopulmonary findings. No change in appearance of the chest. ACT 112: Negative or not required by law. Electronically signed by: Hira Cordova M.D. 09/30/2023 4:[address] 09/30/23 15:55 CT OF THE HEAD WITHOUT CONTRAST CLINICAL HISTORY: confusion, drowsy COMPARISON STUDY: MRI of the brain February 23, [address] June 25, 2023. CT DOSE: 703.85 mGy.cm TECHNIQUE: Helical axial images of the head were obtained without IV contrast. Automated exposure control was utilized for the study. A dose lowering technique was utilized adhering to the principles of ALARA. FINDINGS: No acute intracranial hemorrhage, midline shift or mass effect is present. The ventricular system is unremarkable. The basal cisterns are patent. No extra-axial collections are present. There are no findings to suggest acute dural sinus thrombosis or acute territorial infarct. No significant calvarial abnormalities are present. Visualized portions of the sinuses and mastoid air cells are clear. IMPRESSION: No acute intracranial findings. ACT 112: Negative or not required by law. Electronically signed by: Hira Cordova M.D. 09/30/2023 4:55 PM Discharge Plan Visit Data Chief Complaint: Chest Pain Stated Complaint: CHEST PAIN, LIGHTHEADED, DIZZY ED Provider: Linden Moran Discharge Problem: Encephalopathy, hepatic, Atypical chest pain Patient Disposition: Being Evaluated by Hospitalist Discharge Instructions Interventions: ED Discharge Assessment Last Done: 09/30/23 20:29
--- NOTE | 2023-09-30 16:10 | XRay Report ---
XR chest 1V portable CLINICAL HISTORY: Chest pain, nonspecific COMPARISON STUDY: Chest CT May 11, 2023. Chest radiograph June 25, 2023. FINDINGS: Lung volumes are normal. Lungs are clear. There is no pneumothorax or pleural effusion. Car diac size is normal. Mediastinal contours are normal. There is no evidence for pulmonary edema. IMPRESSION: No acute cardiopulmonary findings. No change in appearance of the chest. ACT 112: Negative or not required by law. Electronically signed by: Hira Cordova M.D. 09/30/2023 4:09 PM
[2023-09-30 16:16] LABS: Albumin Globulin Ratio 1.1 (0.9-2); Albumin Level 3.6 gm/dl (3.4-5.0); BUN Creatinine Ratio 18.3 (10-20); Bilirubin,Total 1.8 mg/dl (0.2-1.0); Calcium 9.1 mg/dl (8.6-10.3); Creatinine Clr Calc Pharmacy 104.8 ml/min; Est GFR (African American) 112.2 ml/min; Est GFR (Non-African American) 96.8 ml/min; Globulin 3.2 gm/dl (2.5-4.0); Potassium 3.9 mmol/L (3.5-5.1); Total Protein 6.8 gm/dl (6.0-8.3)
[2023-09-30 16:18] LABS: Hematocrit (blood only) 44.6 % (42.0-52.0); Hemoglobin 15.6 g/dl (14.0-18.0); Mean Corpuscular Hemoglobin 33.5 pg (25.0-34.0); Mean Corpuscular Volume 95.7 fL (80.0-100.0); Mean Platelet Volume 13.1 fL (9.4-12.4); Platelet Count 42 K/uL (130-400); RDW Coefficient of Variation 15.1 % (11.5-14.5); RDW Standard Deviation 53.6 fL (36.4-46.3); Red Blood Count 4.66 M/uL (4.70-6.10); White Blood Count 5.93 K/ul (4.8-10.8)
[2023-09-30 16:21] LABS: Basophils # (auto) 0.04 K/uL (0.00-0.20); Basophils % (auto) 0.7 %; Eosinophils # (auto) 0.45 K/uL (0.00-0.50); Eosinophils % (auto) 7.6 %; Immature Granulocytes # (auto) 0.01 K/uL (0.01-0.20); Immature Granulocytes % (auto) 0.2 %; Lymphocytes # (auto) 1.28 K/uL (1.20-3.40); Lymphocytes % (auto) 21.6 %; Monocytes # (auto) 0.72 K/uL (0.11-0.59); Monocytes % (auto) 12.1 %; Neutrophils # (auto) 3.43 K/uL (1.40-6.50); Neutrophils % (auto) 57.8 %; Troponin I High Sensitivity 5.8 pg/ml (0-20)
[2023-09-30 16:32] LABS: INR 1.3 (0.9-1.1); Partial Thromboplastin Ratio 1.1; Partial Thromboplastin Time 30 Seconds (21-31); Prothrombin Time 13.4 Seconds (9.0-12.0)
[2023-09-30] MEDS: LACTULOSE SYRUP 20 GM/30 ML UDC ONE (16:42)
[2023-09-30] MEDS: LACTULOSE SYRUP 30 GM/45 ML UDP PO STA (16:44)
[2023-09-30] MEDS: rifAXIMin 550 MG TABLET PO ONE (16:45)
--- NOTE | 2023-09-30 16:57 | CT Scan Report ---
CT OF THE HEAD WITHOUT CONTRAST CLINICAL HISTORY: confusion, drowsy COMPARISON STUDY: MRI of the brain February 23, [address] June 25, 2023. CT DOSE: 703.85 mGy.cm TECHNIQUE: Helical axial images of the head were obtained without IV contrast. Automated exposure con trol was utilized for the study. A dose lowering technique was utilized adhering to the principles o f ALARA. FINDINGS: No acute intracranial hemorrhage, midline shift or mass effect is present. The ventricular system is unremarkable. The basal cisterns are patent. No extra-axial collections are present. There are no findings to suggest acute dural sinus thrombosis or acute territorial infarct. No significant calvarial abnormalities are present. Visualized portions of the sinuses and mastoid air cells are maribell ar. IMPRESSION: No acute intracranial findings. ACT 112: Negative or not required by law. Electronically signed by: Hira Cordova M.D. 09/30/2023 4:55 PM
[2023-09-30 17:05] LABS: Adenovirus PCR Not Detected (NotDetected); Bordetella parapertussis PCR Not Detected (NotDetected); Bordetella pertussis PCR Not Detected (NotDetected); Chlamydia pneumoniae PCR Not Detected (NotDetected); Coronavirus 229E PCR Not Detected (NotDetected); Coronavirus CoV-2 (COVID19)PCR Not Detected (NotDetected); Coronavirus HKU1 PCR Not Detected (NotDetected); Coronavirus NL63 PCR DETECTED (NotDetected); Coronavirus OC43PCR Not Detected (NotDetected); Human Metapneumovirus PCR Not Detected (NotDetected); Influenza A PCR Not Detected (NotDetected); Influenza B PCR Not Detected (NotDetected); Mycoplasma pneumoniae PCR Not Detected (NotDetected); Parainfluenza Virus 1 PCR Not Detected (NotDetected); Parainfluenza Virus 2 PCR Not Detected (NotDetected); Parainfluenza Virus 3 PCR Not Detected (NotDetected); Parainfluenza Virus 4 PCR Not Detected (NotDetected); Respiratory Syncytial VirusPCR Not Detected (NotDetected); Rhinovirus/Enterovirus PCR Not Detected (NotDetected)
--- NOTE | 2023-09-30 17:11 | History & Physical Report ---
Date of Service September 30, 2023 Assessment & Plan (1) Hepatic encephalopathy: (2) Hyperammonemia: (3) Alcoholic cirrhosis: (4) Chest discomfort: (5) Chest pain: (6) Ambulatory dysfunction: Plan Mauro Liu is a 58y/o M with PMHx of dyslipidemia, history of hepatic encephalopathy, HTN, esophageal varices without bleeding, history of FL, AAA, history of TIA, history of alcoholic cirrhosis [awaiting transplant], GERD with esophagitis, DDD, history of SBO, chronic thrombocytopenia, history of anemia, history of depression and other problems listed below who presented to the ED for evaluation 2/2 increased confusion, chest discomfort and was found to have hyperammonemia. Hepatic Encephalopathy Hyperammonemia H/O Alcoholic Cirrhosis -Compliant w/ lactulose 3-4x/day -Pt following w/ [facility] -Awaiting liver transplant -Ammonia level 145, trend in AM -AST 47, ALT 30, Alk Phos 127 -INR 1.3, unchanged from baseline -Lactulose 30G given in ED -Rifaximin 550mg given in ED -Increase lactulose to 30G QID with goal of 4-5 loose BM daily -Continue Xifaxan 550mg BID -Goal of 3-4 BMs/day -Hold TRACTOR EXPERT diuretics -Avoid sedating medications -CMP, ammonia level in AM Chest Pain Chest Discomfort --> Pt reporting episodes of intermittent chest "burning" and sharp chest pain that resolve without medical intervention, which have been ongoing for the past couple of months. -Trop WNL at 5.8 -EKG w/o ischemic changes -Trend trop Q8H x 3, monitor -Pt had echo at [facility] earlier this month [will need to obtain] Ambulatory Dysfunction Intermittent Dizziness SOB w/ Exertion -Pt reports difficulty ambulating -No recent falls, head trauma -Negative head CT -Also complaining of SOB w/ exertion -CXR negative, RVP positive for COVID -Pt not currently c/o SOB -Sating at 98% on RA -Endorsing a mild cough, no congestion -Hold TRACTOR EXPERT diuretics -No hx of asthma/COPD -Will order PRN albuterol nebs -Orthostatic vitals -PT/OT, fall precautions Chronic Thrombocytopenia: Plt count 42 on admission, baseline plt count ~40s per chart review. Hgb stable at 15.6, monitor plt count w/ CBC in AM; continue TRACTOR EXPERT iron supplementation. HLD: Continue TRACTOR EXPERT atorvastatin Depression: Continue TRACTOR EXPERT fluoxetine H/O Left Total Hip Arthroplasty, DDD: Continue TRACTOR EXPERT gabapentin; plan to hold gabapentin if pt is overtly sleepy 2/2 drowsiness effect. GERD: Continue TRACTOR EXPERT pantoprazole H/O Esophageal Varices: Chronic, no overt signs of bleeding. Last upper GI endoscopy performed on 07/06/22: Grade I and small (< 5mm) esophageal varices. H/O Sleeping Issues: Continue home meds. Hold ativan or other sedating medications. DVT Prophylaxis: SCD, JUVENTINO. Chemoppx C/I with thrombocytopenia Code Status: FULL CODE PCP: Toby Paz MD Dispo: Admit to Med/Surg w/ Telemetry Patient seen in collaboration with Dr. Perea. Please see addendum. I spent a total of 75 minutes coordinating, documenting, and providing care for this patient excluding time spent in the performance of separately billed services. This included personally reviewing all current laboratories and imaging studies, medical reconciliation, outpatient chart review and discussion with specialists. This chart was completed in part utilizing Speech Voice Recognition Software. Grammatical errors, random word insertions, pronoun errors, and incomplete sentences are an occasional consequence of this system due to software limitations, ambient noise, and hardware issues. Any formal questions or concerns about the content, text, or information contained within the body of this dictation should be directly addressed to the provider for clarification. History of Present Illness Chief Complaint: Increased Confusion, Chest Discomfort Primary Care Provider: Toby Paz MD Mauro Liu is a 58y/o M with PMHx of dyslipidemia, history of hepatic encephalopathy, HTN, esophageal varices without bleeding, history of FL, AAA, history of TIA, history of alcoholic cirrhosis, GERD with esophagitis, DDD, SBO, chronic thrombocytopenia, history of anemia, history of depression and other problems listed below who presented to the ED for evaluation 2/2 increased confusion and chest discomfort. History obtained from patient and associated chart review. Patient seen at bedside with Dr. Perea. Patient reports experiencing some increased confusion and forgetfulness that began yesterday and is subsequently worsening today. He denies ever losing consciousness/syncope. He is currently reporting some chest discomfort with some mild pain. The discomfort is worse with movement and the pain is reproducible with touching of the chest wall. He denies any nausea/vomiting, fevers, abdominal discomfort/pain or urinary habit changes. Also denies any extremity swelling. Of note, patient was recently admitted back in June 02 hepatic encephalopathy and hyperammonemia. He reports compliance with home medications, including his lactulose. Mentions that he is having some loose stools on the lactulose. He is reporting a mild cough, but denies any shortness of breath. No numbness or tingling in his upper extremities. Patient is currently undergoing outpatient GI work-up with [facility]. Patient is also reporting some issues with ambulation, mentions he is somewhat "unsteady on his feet." However, denies any recent falls or head trauma. He recently had a left total hip replacement performed on 04/10/23. Since then, he has complaints of LLE neuropathy. Paternal family history includes Parkinson's disease. Allergies Allergy/AdvReac Type Severity Reaction Status Date / Time bee venom protein (honey bee) Allergy Severe Anaphylaxis--CARRIES Verified 09/30/23 16:55 AN EPIPEN Home Medications Medication Instructions Recorded Confirmed Type atorvastatin 20 mg tablet 20 mg PO QAM 01/18/18 09/30/23 History pantoprazole 40 mg tablet,delayed 40 mg PO BID 07/26/18 09/30/23 History release lactulose 10 gram/15 mL oral 20 g PO QID 11/24/21 09/30/23 History solution magnesium oxide 400 mg (241.3 mg 400 mg PO AMHS 11/24/21 09/30/23 History magnesium) tablet gabapentin 100 mg capsule 100 mg PO BID 02/23/22 09/30/23 History rifaximin 550 mg tablet (Xifaxan) 550 mg PO BID 02/23/22 09/30/23 History fluoxetine 10 mg capsule 10 mg PO QAM 01/11/23 09/30/23 History spironolactone 25 mg tablet 25 mg PO DAILY 01/11/23 09/30/23 History ferrous sulfate 325 mg (65 mg 325 mg PO DAILY 05/11/23 09/30/23 History iron) tablet (iron) trazodone 50 mg tablet 100 mg PO HS 05/11/23 09/30/23 History furosemide 40 mg tablet 20 mg (1/2 x 40 mg) PO DAILY #15 06/26/23 09/30/23 Rx tabs epinephrine 0.3 mg/0.3 mL 0.3 mg IM DIRECTED PRN Allergic 09/30/23 09/30/23 History injection, auto-injector (EpiPen) Reaction gabapentin 300 mg capsule 300 mg PO HS 09/30/23 09/30/23 History lorazepam 0.5 mg tablet 0.5 mg PO Q6H PRN Anxiety 09/30/23 09/30/23 History Past Med/Surg History Problem List (Updated 09/30/23 @ 17:16 by Ro Torres PA-C) Chest discomfort Hepatic encephalopathy Atypical chest pain (Acute) Encephalopathy, hepatic (Acute) Depression GERD (gastroesophageal reflux disease) Acute confusion (Acute) Hyperammonemia (Acute) Thrombocytopenia (Acute) Acute hepatic encephalopathy (Acute) History of total left hip replacement (Acute) Bilateral leg pain (Acute) Altered mental status (Acute) Confusion Avascular necrosis of femur Hip pain Ambulatory dysfunction (Acute) Hyperammonemia (Acute) Acute pain of left hip (Acute) Alcoholic cirrhosis Dilated aortic root Acute alteration in mental status (Acute) Thrombocytopenia (Acute) Bilateral arm weakness (Acute) Acute hepatic encephalopathy (Acute) H/O angioedema (Chronic) ongoing, follows with allergy Elevated LFTs (Acute) HTN (hypertension) (Chronic) Acid reflux Abnormal PFT Thrombocytopenia UTI (urinary tract infection) Cirrhosis of liver Cough Encounter for pre-operative examination RUQ pain Insomnia (Chronic) Intractable right upper quadrant abdominal pain (Acute) GERD (gastroesophageal reflux disease) (Chronic) Migraine (Chronic) Medical History History of ascites Acute alteration in mental status Nausea HLD (hyperlipidemia) Hypertension Hyperlipidemia Surgical History History of esophagogastroduodenoscopy (EGD) History of colonoscopy History of bowel resection 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 History of appendectomy History of tooth extraction Family History Father Hearing loss Hypertension Stroke Heart disease Other No pertinent family history in first degree relatives Denies family history of No family history of adverse response to anesthesia No family history of bleeding disorder Allergies Asthma Social History Smoking Status: Former smoker Tobacco Type: Cigarettes Cigarettes Per Day: 1-2; Second Hand Exposure: No; Do You Dip or Chew Tobacco: No; Hx Alcohol Use: No Hx Substance Use: No Preferred Language: Venezuelan Communication Ability: Effective 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 Physical Exam Physical Exam: General: NAD, appears rather lethargic. Pt able to converse appropriately, but is slow to answer questions. A+Ox3 to verbal stimuli, resting comfortably. HEENT: Normocephalic, atraumatic. PERRL, EOMI, conjunctivae normal, anicteric sclerae, droopy eyelids. External ear and nose normal, appears a little dry. Respiratory: Normal respiratory effort, lungs clear to auscultation, no wheeze, rales, rhonchi. No accessory muscle use. Cardiovascular: Regular rate, rhythm, no murmur, normal peripheral pulses, no BLE edema. Vessels: No JVD. Chest: Mild chest wall tenderness with palpitation, no crepitus. Abdomen/GI: Normal bowel sounds, soft, nontender, no hepatosplenomegaly. Extremities/Musculoskeletal: No cyanosis or clubbing. Gross sensation intact in all extremities, generalized weakness in all extremities. Neurologic: Accommodation nl, no face palsy, no dysarthria, CN's II-XI not forma lly tested but appear intact bilaterally. Skin: No rashes, normal color, warm/dry. Results & Data Results & Data Vital Signs (Past 12 Hours) Vital Signs Temp Pulse Pulse Resp BP BP Pulse Ox 09/30/23 17:00 68 20 158/77 H 98 09/30/23 15:39 78 09/30/23 15:30 65 20 97 09/30/23 15:21 36.6 C 77 22 132/76 98 O2 Del Method 09/30/23 17:00 Room Air 09/30/23 15:39 09/30/23 15:30 Room Air 09/30/23 15:21 Room Air Laboratory Results Short CBC 09/30/23 Range/Units 15:36 WBC 5.93 (4.8-10.8) K/ul Hgb 15.6 (14.0-18.0) g/dl Hct 44.6 (42.0-52.0) % Plt Count 42 L (130-400) K/uL BMP 09/30/23 15:36 Sodium 140 Potassium 3.9 Chloride 111 H Carbon Dioxide 22 BUN 15 Creatinine 0.82 Glucose 78 Calcium 9.1 Liver Function 09/30/23 Range/Units 15:36 Total Bilirubin 1.8 H (0.2-1.0) mg/dl AST 47 H (13-39) U/L ALT 30 (7-52) U/L Alkaline Phosphatase 127 H (34-104) U/L Albumin 3.6 (3.4-5.0) gm/dl Diagnostic Findings Chest X-Ray 09/30/23 15:33 XR chest 1V portable CLINICAL HISTORY: Chest pain, nonspecific COMPARISON STUDY: Chest CT May 11, 2023. Chest radiograph June 25, 2023. FINDINGS: Lung volumes are normal. Lungs are clear. There is no pneumothorax or pleural effusion. Cardiac size is normal. Mediastinal contours are normal. There is no evidence for pulmonary edema. IMPRESSION: No acute cardiopulmonary findings. No change in appearance of the chest. ACT 112: Negative or not required by law. Electronically signed by: Hira Cordova M.D. 09/30/2023 4:[address] 09/30/23 15:55 CT OF THE HEAD WITHOUT CONTRAST CLINICAL HISTORY: confusion, drowsy COMPARISON STUDY: MRI of the brain February 23, [address] June 25, 2023. CT DOSE: 703.85 mGy.cm TECHNIQUE: Helical axial images of the head were obtained without IV contrast. Automated exposure control was utilized for the study. A dose lowering techniqu e was utilized adhering to the principles of ALARA. FINDINGS: No acute intracranial hemorrhage, midline shift or mass effect is present. The ventricular system is unremarkable. The basal cisterns are patent. No extra-axial collections are present. There are no findings to suggest acute dural sinus thrombosis or acute territorial infarct. No significant calvarial abnormalities are present. Visualized portions of the sinuses and mastoid air cells are clear. IMPRESSION: No acute intracranial findings. ACT 112: Negative or not required by law. Electronically signed by: Hira Cordova M.D. 09/30/2023 4:55 PM Medications Administered Discontinued Medications Lactulose (Lactulose Syrup 30 Gm/45 Ml Udp) 30 gm PO NOW STA Stop: 09/30/23 16:05 Last Admin: 09/30/23 16:44 Dose: 30 gm Documented By: NGOZI Lactulose (Lactulose Syrup 20 Gm/30 Ml Udc) Confirm Administered Dose 20 gm .ROUTE .STK-MED ONE Stop: 09/30/23 16:29 Last Admin: 09/30/23 16:42 Dose: Not Given Documented By: NGOZI Rifaximin (Rifaximin 550 Mg Tablet) 550 mg PO ONCE ONE Stop: 09/30/23 16:05 Last Admin: 09/30/23 16:45 Dose: 550 mg Documented By: NGOZI ECG Additional Comments: EKG showing sinus rhythm with occasional premature ventricular complexes, HR 71bpm and QTc Interval 447ms. When compared to EKG performed 06/25/23, premature ventricle complexes are now present and nonspecific T wave abnormality no longer present in anterior leads. Code Status & VTE Plan Code Status FULL CODE VTE Prophylaxis Plan VTE Prophylaxis will be ordered: Yes Supervising Physician Co-Signing Physician Notes Patient was seen and examined independently at bedside. Chart reviewed. Case discussed with Ro ESPINOZA and agree with the documentation above. In summary, this is a 58 year old male with h/o liver cirrhosis with multiple admissions for hepatic encephalopathy presented with confusion and is being admitted again for hepatic encephalopathy, ammonia 145. Last admission in June for same. Similar presentation. Denies any fever, chills, abd pain, N/V. Not on benzos. Elect rolytes normal. No concern for SBP currently. Has sleep-wake reversal at baseline. States compliant with medications and have multiple BM daily. Given lactulose and xifaxan in ED and states feels slightly better. Increase lactulose to 30 g qid to achieve 4-5 loose BM daily. Continue xifaxan. Hold diuretics. Encourage more oral hydration. Repeat labs in the morning including ammonia level. Will hold off on GI consult for now. Regarding his intermittent chest pain, states it happens only with lifting heavy weight but with no exertion and no other associated symptoms, burning sensation- concern for MSK pain but will trend trop and monitor on tele. States recently evaluated at [facility] and had echo done and was said to be fine. He does follow with [facility] GI for his cirrhosis. at bedside. Rest as per the note above. General: Lying comfortably in bed, not in distress, on room air HEENT: EOMI, CHLOE, MMM Chest: Clear breath sounds bilaterally, no wheezes or crackles CVS: Regular rate and rhythm, normal heart sounds, no murmur Abdomen: Soft, non tender, not distended, normal bowel sounds Neuro: Awake, alert, oriented, conversing well, non focal. No asterixis. Extremities: No cyanosis, clubbing or edema (3) Alcoholic cirrhosis Ascites presence: unspecified Qualified Code(s): K70.30 - Alcoholic cirrhosis of liver without ascites (5) Chest pain Chest pain type: unspecified Qualified Code(s): R07.9 - Chest pain, unspecified
[2023-09-30] MEDS ORDERED: ACETAMINOPHEN 325 MG TAB PO PRN (20:29)
[2023-09-30] MEDS ORDERED: ALBUTEROL 0.083% NEBU SOLN 3 ML VIAL NEB PRN (20:29)
[2023-09-30] MEDS ORDERED: ONDANSETRON INJ 2 MG/ML 2 ML VIAL IV PRN (20:29)
[2023-09-30] MEDS: MAGNESIUM OXIDE 400 MG TAB PO SCH (20:54)
[2023-09-30] MEDS: GABAPENTIN 300 MG CAP PO SCH (20:54)
[2023-09-30] MEDS: LACTULOSE SYRUP 30 GM/45 ML UDP PO SCH (20:54)
[2023-09-30] MEDS: traZODone HCL 100 MG TAB PO SCH (20:54)
[2023-09-30] MEDS: PANTOprazole 40 MG TAB PO SCH (20:54)
[2023-09-30] MEDS: rifAXIMin 550 MG TABLET PO SCH (20:54)
--- NOTE | 2023-09-30 21:16 | Electrocardiogram Report ---
Test Reason : Blood Pressure : / mmHG Vent. Rate : 071 BPM Atrial Rate : 071 BPM P-R Int : 158 ms QRS Dur : 080 ms QT Int : 412 ms P-R-T Axes : 032 010 028 degrees QTc Int : 447 ms . Sinus rhythm with occasional Premature ventricular complexes Otherwise normal ECG When compared with ECG of 25-JUN-2023 10:42, Premature ventricular complexes are now Present Nonspecific T wave abnormality no longer evident in Anterior leads Confirmed by Art Washburn ([id number]) on 09/30/2023 9:16:32 PM Referred By: Confirmed By:Art Washburn
[2023-10-01 03:02] LABS: Hematocrit (blood only) 38.6 % (42.0-52.0); Hemoglobin 13.4 g/dl (14.0-18.0); Mean Corpuscular Hemoglobin 33.1 pg (25.0-34.0); Mean Corpuscular Hgb Conc 34.7 g/dL (32.0-36.0); Mean Corpuscular Volume 95.3 fL (80.0-100.0); Platelet Count 37 K/uL (130-400); RDW Coefficient of Variation 15.1 % (11.5-14.5); RDW Standard Deviation 53.6 fL (36.4-46.3); Red Blood Count 4.05 M/uL (4.70-6.10); White Blood Count 5.03 K/ul (4.8-10.8)
[2023-10-01 03:17] LABS: Albumin Globulin Ratio 1.2 (0.9-2); Albumin Level 3.2 gm/dl (3.4-5.0); BUN Creatinine Ratio 21.5 (10-20); Bilirubin,Total 2.4 mg/dl (0.2-1.0); Calcium 8.6 mg/dl (8.6-10.3); Creatinine Clr Calc Pharmacy 108.8 ml/min; Est GFR (African American) 113.9 ml/min; Est GFR (Non-African American) 98.3 ml/min; Globulin 2.7 gm/dl (2.5-4.0); Magnesium 1.8 mg/dl (1.7-2.4); Potassium 3.7 mmol/L (3.5-5.1); Total Protein 5.9 gm/dl (6.0-8.3)
[2023-10-01 03:23] LABS: Troponin I High Sensitivity 7.6 pg/ml (0-20)
[2023-10-01] MEDS: GABAPENTIN 100 MG CAP PO SCH (08:50)
[2023-10-01] MEDS: FLUoxetine HCL 10 MG CAP PO SCH (08:51)
[2023-10-01] MEDS: ATORVASTATIN 20 MG TAB PO SCH (08:51)
[2023-10-01] MEDS ORDERED: FERROUS SULFATE 325 MG TAB PO SCH (09:00)
[2023-10-01] MEDS ORDERED: CALCIUM CARBONATE 500 MG CHEWABLE TAB PO PRN (10:38)
--- NOTE | 2023-10-01 13:31 | Discharge Summary ---
Date of Service October 01, 2023 Admission HPI Per Admitting Provider Mauro Liu is a 58y/o M with PMHx of dyslipidemia, history of hepatic encephalopathy, HTN, esophageal varices without bleeding, history of ID, AAA, history of TIA, history of alcoholic cirrhosis, GERD with esophagitis, DDD, SBO, chronic thrombocytopenia, history of anemia, history of depression and other problems listed below who presented to the ED for evaluation 2/2 increased confusion and chest discomfort. History obtained from patient and associated chart review. Patient seen at bedside with Dr. Perea. Patient reports experiencing some increased confusion and forgetfulness that began yesterday and is subsequently worsening today. He denies ever losing consciousness/syncope. He is currently reporting some chest discomfort with some mild pain. The discomfort is worse with movement and the pain is reproducible with touching of the chest wall. He denies any nausea/vomiting, fevers, abdominal discomfort/pain or urinary habit changes. Also denies any extremity swelling. Of note, patient was recently admitted back in June 02 hepatic encephalopathy and hyperammonemia. He reports compliance with home medications, including his lactulose. Mentions that he is having some loose stools on the lactulose. He is reporting a mild cough, but denies any shortness of breath. No numbness or tingling in his upper extremities. Patient is currently undergoing outpatient GI work-up with [facility]. Patient is also reporting some issues with ambulation, mentions he is somewhat "unsteady on his feet." However, denies any recent falls or head trauma. He recently had a left total hip replacement performed on 04/10/23. Since then, he has complaints of LLE neuropathy. Paternal family history includes Parkinson's disease. Admission Exam Per Admitting Provider General: NAD, appears rather lethargic. Pt able to converse appropriately, but is slow to answer questions. A+Ox3 to verbal stimuli, resting comfortably. HEENT: Normocephalic, atraumatic. PERRL, EOMI, conjunctivae normal, anicteric sclerae, droopy eyelids. External ear and nose normal, appears a little dry. Respiratory: Normal respiratory effort, lungs clear to auscultation, no wheeze, rales, rhonchi. No accessory muscle use. Cardiovascular: Regular rate, rhythm, no murmur, normal peripheral pulses, no BLE edema. Vessels: No JVD. Chest: Mild chest wall tenderness with palpitation, no crepitus. Abdomen/GI: Normal bowel sounds, soft, nontender, no hepatosplenomegaly. Extremities/Musculoskeletal: No cyanosis or clubbing. Gross sensation intact in all extremities, generalized weakness in all extremities. Neurologic: Accommodation nl, no face palsy, no dysarthria, CN's II-XI not formally tested but appear intact bilaterally. Skin: No rashes, normal color, warm/dry. Principal Diagnosis Hepatic encephalopathy Hyperammonemia Ambulatory dysfunction secondary to hepatic encephalopathy Discharge Exam GENERAL: Alert and oriented x3. NAD, on RA. HEENT: No pallor, no icterus. Pupils equal, round and reactive to light. Oral mucosa moist. NECK: No JVD, no neck masses. HEART: S1 and S2 heard. Regular rate and rhythm. No murmur, no gallop. RESPIRATORY SYSTEM: Normal AP diameter. No accessory muscle use. No wheezing, no crackles. ABDOMEN: Soft, bowel sounds present, nontender, no distention. CENTRAL NERVOUS SYSTEM: No facial droop. Speech is clear. Obeys simple commands. Moves extremities. EXTREMITIES: No edema, no erythema seen. Discharge Data Allergies Allergy/AdvReac Type Severity Reaction Status Date / Time bee venom protein (honey bee) Allergy Severe Anaphylaxis--CARRIES Verified 09/30/23 16:55 AN EPIPEN Consultations 09/30/23 16:57 ED Decision to Admit Stat 10/01/23 12:23 HIM [Consult Health Information Management] Routine Ordered Studies 09/30/23 15:55 CT head/brain wo con Stat Hospital Course (1) Hepatic encephalopathy: (2) Hyperammonemia: (3) Alcoholic cirrhosis: (4) Chest discomfort: (5) Chest pain: (6) Ambulatory dysfunction: Plan Per prior attending with addendum: Mauro Liu is a 58y/o M with PMHx of dyslipidemia, history of hepatic encephalopathy, HTN, esophageal varices without bleeding, history of ID, AAA, history of TIA, history of alcoholic cirrhosis [awaiting transplant], GERD with esophagitis, DDD, history of SBO, chronic thrombocytopenia, history of anemia, history of depression and other problems listed below who presented to the ED for evaluation 2/2 increased confusion, chest discomfort and was found to have hyperammonemia. Hepatic Encephalopathy Hyperammonemia H/O Alcoholic Cirrhosis -Compliant w/ lactulose 3-4x/day -Pt following w/ [facility] GI -Awaiting liver transplant -Ammonia level 145, trend in AM -AST 47, ALT 30, Alk Phos 127 -INR 1.3, unchanged from baseline -Lactulose 30G given in ED -Rifaximin 550mg given in ED -Increase lactulose to 30G QID with goal of 4-5 loose BM daily -Continue Xifaxan 550mg BID -Goal of 3-4 BMs/day -Hold LINE RUNNER diuretics -Avoid sedating medications -CMP, ammonia level in AM Chest Pain Chest Discomfort --> Pt reporting episodes of intermittent chest "burning" and sharp chest pain that resolve without medical intervention, which have been ongoing for the past couple of months. -Trop WNL at 5.8 -EKG w/o ischemic changes -Trend trop Q8H x 3, monitor -Pt had echo at [facility] earlier this month [will need to obtain] Ambulatory Dysfunction Intermittent Dizziness SOB w/ Exertion -Pt reports difficulty ambulating -No recent falls, head trauma -Negative head CT -Also complaining of SOB w/ exertion -CXR negative, RVP positive for COVID -Pt not currently c/o SOB -Sating at 98% on RA -Endorsing a mild cough, no congestion -Hold LINE RUNNER diuretics -No hx of asthma/COPD -Will order PRN albuterol nebs -Orthostatic vitals -PT/OT, fall precautions Chronic Thrombocytopenia: Plt count 42 on admission, baseline plt count ~40s per chart review. Hgb stable at 15.6, monitor plt count w/ CBC in AM; continue LINE RUNNER iron supplementation. HLD: Continue LINE RUNNER atorvastatin Depression: Continue LINE RUNNER fluoxetine H/O Left Total Hip Arthroplasty, DDD: Continue LINE RUNNER gabapentin; plan to hold gabapentin if pt is overtly sleepy 2/2 drowsiness effect. GERD: Continue LINE RUNNER pantoprazole H/O Esophageal Varices: Chronic, no overt signs of bleeding. Last upper GI endoscopy performed on 07/06/22: Grade I and small (< 5mm) esophageal varices. H/O Sleeping Issues: Continue home meds. Hold ativan or other sedating medications. DVT Prophylaxis: SCD, JUVENTINO. Chemoppx C/I with thrombocytopenia Code Status: FULL CODE PCP: Toby Paz MD Dispo: Admit to Med/Surg w/ Telemetry Addendum 10/01/2023: Patient was seen and examined at bedside as a follow-up of hepatic encephalopathy, hyperammonemia, chest discomfort likely GERD versus rule out ACS, ambulatory dysfunction in the setting of hepatic encephalopathy. Patient's ammonia level has down trended, patient is alert and oriented and reports he is back to baseline. He reports his weakness while walking has improved with improvement in his confusion. His Fiance at bedside confirms these. He reports having chest discomfort or burning sensation especially with spicy food and very occasionally. He is advised to continue taking his Protonix at home. He is also advised to take Tums as needed. Cardiac enzymes were negative in the hospital. Echo was recently done on 09/21/2023, results were requested from [facility]. I have not yet gotten hold of echo records, patient and his fiance would like to go home and would not want to wait until I see echo results. Patient is hemodynamically stable and denies chest pain currently. He is being discharged with following instruction at the point of discharge: Follow-up with your primary care physician within a week time and likely you will need labs CBC/CMP/magnesium/phosphorus. Maintain compliance with your lactulose with a goal of 3-5 bowel movements a day. Maintain low-sodium diet. For your retrosternal burning chest discomfort, you can utilize Tums as needed. Avoid spicy food since it causes your burning symptoms as per our discussion at bedside. Take your medications as prescribed. Please make sure that you are able to get your medications today by calling your pharmacy before you leave the hospital so that your treatment continuity is not broken. This chart was completed in part utilizing Speech Voice Recognition Software. Grammatical errors, random word insertions, pronoun errors, and incomplete sentences are an occasional consequence of this system due to software limi tations, ambient noise, and hardware issues. Any formal questions or concerns about the content, text, or information contained within the body of this dictation should be directly addressed to the provider for clarification. Home Health Attestation I certify that this patient is under my care and that I, or a physicians psychological assistant working with me, had a face to-face encounter that meets the [id number] encounter requirements with this patient. The encounter with the patient was in whole, or in part, for the following medical condition, which is the primary reason for home health care (list medical condition): I certify that, based on my findings, the following services are medically necessary home health services: My clinical findings support the need for the above services because: Further, I certify that my clinical findings support that this patient is homebound (i.e. absences from home require considerable and taxing effort and are for medical reasons or buddhist services or infrequently or of short duration when for other reasons) because: Certification for Home Health Services: Based on the above findings, I certify that this patient is confined to the home and needs intermittent prison care, physical therapy and/or speech therapy or continues to need occupational therapy. The patient is under my care, and I have initiated the establishment of the plan of care. This patient will be followed by a physician who will periodically review the plan of care. Total Time Total Time Spent Total Time Spent (In Minutes): 45 Discharge Plan Discharge Items Patient Disposition: Home - Self-Care Reason For Visit: ACUTE HEPTIC ENCEPHALOPATHY Discharge Diagnosis: Hepatic encephalopathy Hyperammonemia Ambulatory dysfunction secondary to hepatic encephalopathy Activity: Resume your previous activity Non-emergency contact: Primary Care Provider Call non-emergency contact if: you have any medication questions Follow-up/Referrals: Toby Paz MD [Primary Care Provider] - Diet: Low Sodium (2gm) Addtl Attending Provider Instructions: Follow-up with your primary care physician within a week time and likely you will need labs CBC/CMP/magnesium/phosphorus. Maintain compliance with your lactulose with a goal of 3-5 bowel movements a day. Maintain low-sodium diet. For your retrosternal burning chest discomfort, you can utilize Tums as needed. Avoid spicy food since it causes your burning symptoms as per our discussion at bedside. Take your medications as prescribed. Please make sure that you are able to get your medications today by calling your pharmacy before you leave the hospital so that your treatment continuity is not broken. Pending Studies at Discharge: No Stand-Alone Forms: My [employer], Smoking Cessation Medications and DC Order Prescriptions: Continued atorvastatin 20 mg Tablet 20 mg PO QAM pantoprazole 40 mg Tablet,Delayed Release (Dr/Ec) 40 mg PO BID magnesium oxide 400 mg (241.3 mg magnesium) tablet 400 mg PO [facility] lactulose 10 gram/15 mL solution 20 g PO QID Rx Instructions: to have 3 BM's daily gabapentin 100 mg capsule 100 mg PO BID Rx Instructions: TAKES QAM & LUNCH TIME Xifaxan 550 mg tablet 550 mg PO BID fluoxetine 10 mg capsule 10 mg PO QAM spironolactone 25 mg tablet 25 mg PO DAILY trazodone 50 mg tablet 100 mg PO HS ferrous sulfate [iron] 325 mg (65 mg iron) Tablet 325 mg PO DAILY lorazepam 0.5 mg tablet 0.5 mg PO Q6H PRN (Reason: Anxiety) gabapentin 300 mg Capsule 300 mg PO HS epinephrine [EpiPen] 0.3 mg/0.3 mL Auto-Injector 0.3 mg IM DIRECTED PRN (Reason: Allergic Reaction) furosemide 40 mg tablet 20 mg PO DAILY Qty: 15 0RF Discharge Orders: Discharge Order (Routine); Ordered 10/01/23 Ordered By: Wayne Lama Admission Data Admit Date/Time: 09/30/23 17:07 Attending Provider: Wayne Lama Admit Provider: Enrique Perea Primary Care Provider: Toby Paz Other Providers: Enrique Perea
== END 2023-10-01 15:01 | disposition home or self-care (01) | DRG 443 ==
LOC: ED 15:18 → EDINP 17:07 → SUATTDRO 17:07 → 2W 21:59

== ENCOUNTER 2023-11-16 13:46 | Inpatient (IN) ==
--- NOTE | 2023-11-16 14:22 | Emergency Department Note ---
Impression & Plan Chest pain, Hyperammonemia, Acute confusion, Encephalopathy, hepatic, Abdominal pain ED Provider Note NAME: MARLEEN MELTON AGE: 58 SEX: M : 1965 ARRIVES VIA: Walk-In INFORMANT: Patient, the patient's friend ED PROVIDER(S): Zay Nelson DO CHIEF COMPLAINT: Chest pain HPI: The patient is a 58-year-old male who presented to the emergency department for evaluation of chest pain. The patient has a history of end-stage liver disease. He has had some confusion as well as hepatic encephalopathy in the past but his family member states he was having pain in his anterior chest. The patient himself complains of right upper quadrant abdominal pain. He denies having any vomiting. He does complain of nausea. The patient did note some dark stool. He has a history of GI bleeding as well. The patient did not see his family doctor but came directly to the emergency department. His friend was concerned that he was having a heart attack. ROS: See above HPI for pertinent positives & negatives. A total of 10 systems reviewed and were otherwise negative. PAST MEDICAL HISTORY: See Below PAST SURGICAL HISTORY: See Below FAMILY HISTORY: See Below SOCIAL HISTORY: See Below HOME MEDICATIONS: See Below ALLERGIES: See Below VITALS: See Below PHYSICAL EXAMINATION: GENERAL: The patient is awake to verbal commands. He does seem to fall asleep easily. EYES: The conjunctivae are clear. The pupils are round and reactive. EARS, NOSE, MOUTH AND THROAT: The nose is without any evidence of any deformity. NECK: The neck is nontender and supple. RESPIRATORY: Normal respiratory effort is noted there is no evidence of wheezing rhonchi or rales CARDIOVASCULAR: Regular rate and rhythm noted there no murmurs rubs or gallops normal S1 normal S2. GASTROINTESTINAL: The abdomen was mildly distended. There is diffuse tenderness to palpation. There is no specific guarding or rigidity. Rectal exam revealed no stool in the vault. This was heme-negative. MUSCULOSKELETAL/EXTREMITIES: There is no evidence of gross deformity full range of motion is noted in the hips and shoulders. SKIN: Skin is warm and dry. Trace pedal edema was noted bilaterally. NEUROLOGIC: Patient is awake to verbal commands and oriented x3. MEDICAL DECISION MAKING: The patient is a 58-year-old male who has a history of cirrhosis who presented to the emergency department for chest pain. On physical exam the patient also had abdominal pain. The patient was confused and appeared to be altered according to his significant other. The patient was found to have an elevation in his ammonia level. I discussed the patient's laboratory and radiographic studies with him as well as his significant other. He was treated with lactulose in the emergency department. He did report rectal bleeding. On my physical exam his heme test was negative but there was not much stool in the vault. I discussed patient's condition [facility] They have agreed to evaluate the patient in the emergency department for further management and disposition. Triage Nursing notes reviewed. Prior medical records reviewed Vital Signs: reviewed and remarkable for no significant abnormalities Differential diagnosis: Cardiac ischemia, aortic dissection, pulmonary embolism, pneumothorax, pneumonia, pericarditis, myocarditis, esophageal rupture, GERD, cholecystitis, pancreatitis, musculoskeletal, as well as other pathologies. ER treatment provided: See below Diagnostics interpreted by me: ECG: EKG was obtained in the emergency department. My interpretation is sinus rhythm at 70 bpm. There was no ectopy. There is no acute ST segment abnormalities noted. This was compared to a tracing from September 30, 2023. No changes were noted. Cardiac Monitoring: An order was placed for continuous cardiac monitoring. The monitor shows a rate of beats per minute with sinus rhythm. Laboratory studies: As stated above and show below. Imaging studies: See below. Radiographic imaging was reviewed by myself Consultation(s): I discussed this case with Giancarlo who is [facility] for [facility]. Past Med/Surg History Problem List (Updated 11/16/23 @ 18:19 by Zay Nelson DO) Abdominal pain (Acute) Chest pain (Acute) Chest discomfort Hepatic encephalopathy (Acute) Atypical chest pain (Acute) Encephalopathy, hepatic (Acute) Depression GERD (gastroesophageal reflux disease) Acute confusion (Acute) Hyperammonemia (Acute) Thrombocytopenia (Acute) Acute hepatic encephalopathy (Acute) History of total left hip replacement (Acute) Bilateral leg pain (Acute) Altered mental status (Acute) Confusion Avascular necrosis of femur Hip pain Ambulatory dysfunction (Acute) Hyperammonemia (Acute) Acute pain of left hip (Acute) Alcoholic cirrhosis Dilated aortic root Acute alteration in mental status (Acute) Thrombocytopenia (Acute) Bilateral arm weakness (Acute) Acute hepatic encephalopathy (Acute) H/O angioedema (Chronic) ongoing, follows with allergy Elevated LFTs (Acute) HTN (hypertension) (Chronic) Acid reflux Abnormal PFT Thrombocytopenia UTI (urinary tract infection) Cirrhosis of liver Cough Encounter for pre-operative examination RUQ pain Insomnia (Chronic) Intractable right upper quadrant abdominal pain (Acute) GERD (gastroesophageal reflux disease) (Chronic) Migraine (Chronic) Medical History History of ascites Acute alteration in mental status Nausea HLD (hyperlipidemia) Hypertension Hyperlipidemia Surgical History History of esophagogastroduodenoscopy (EGD) History of colonoscopy History of bowel resection 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 History of appendectomy History of tooth extraction Family History Father Hearing loss Hypertension Stroke Heart disease Other No pertinent family history in first degree relatives Denies family history of No family history of adverse response to anesthesia No family history of bleeding disorder Allergies Asthma Social History Smoking Status: Never smoker Tobacco Type: Cigarettes Cigarettes Per Day: 1-2; Second Hand Exposure: No; Do You Dip or Chew Tobacco: No; Hx Alcohol Use: No Hx Substance Use: No Preferred Language: Tajik Communication Ability: Effective [employer] Required: No Beliefs That Will Affect Care: None marital status: Current Living Situation: Significant Other Current Living Situation Comment: LIVES WITH GIRLFRIEND 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 Safe at Home: Yes Allergies Allergies Allergy/AdvReac Type Severity Reaction Status Date / Time bee venom protein (honey bee) Allergy Severe Anaphylaxis--CARRIES Verified 11/16/23 17:24 AN EPIPEN Home Meds Home Medications Medication Instructions Recorded Confirmed atorvastatin 20 mg tablet 20 mg PO QAM 01/18/18 11/16/23 pantoprazole 40 mg tablet,delayed 40 mg PO BID 07/26/18 11/16/23 release lactulose 10 gram/15 mL oral 20 g PO QID 11/24/21 11/16/23 solution magnesium oxide 400 mg (241.3 mg 400 mg PO AMHS 11/24/21 11/16/23 magnesium) tablet gabapentin 100 mg capsule 100 mg PO BID 02/23/22 11/16/23 rifaximin 550 mg tablet (Xifaxan) 550 mg PO BID 02/23/22 11/16/23 fluoxetine 10 mg capsule 10 mg PO QAM 01/11/23 11/16/23 ferrous sulfate 325 mg (65 mg 325 mg PO DAILY 05/11/23 11/16/23 iron) tablet (iron) trazodone 50 mg tablet 100 mg PO HS 05/11/23 11/16/23 epinephrine 0.3 mg/0.3 mL 0.3 mg IM DIRECTED PRN Allergic 09/30/23 11/16/23 injection, auto-injector (EpiPen) Reaction gabapentin 300 mg capsule 300 mg PO HS 09/30/23 11/16/23 lorazepam 0.5 mg tablet 0.5 mg PO QAM Anxiety 09/30/23 11/16/23 furosemide 20 mg tablet 20 mg PO DAILY 11/16/23 11/16/23 Results & Data (ED) Vital Signs Vital Signs - 24 hr 11/16/23 13:56 11/16/23 14:21 11/16/23 14:25 Temperature 36.7 C Temperature Source Oral Pulse Rate 72 66 Pulse Rate [Apical] Pulse Rate from SpO2 Sensor Respiratory Rate 18 Respiratory Effort / Characteristics Non-Labored Spontaneous Respiratory Depth Normal Blood Pressure 118/68 Blood Pressure [Right Arm] Blood Pressure Mean 84 Blood Pressure Mean [Right Arm] Blood Pressure Position Sitting Pulse Oximetry 95 Oxygen Delivery Method Room Air Room Air Sepsis Recent Fever Within 48 Hours No Sepsis New/Unexplained Change in Mental Status N/A Sepsis Action Taken by Nursing No Action Required 11/16/23 15:59 11/16/23 16:06 11/16/23 16:33 Temperature Temperature Source Pulse Rate 66 63 63 Pulse Rate [Apical] Pulse Rate from SpO2 Sensor 63 63 Respiratory Rate 16 16 15 Respiratory Effort / Characteristics Respiratory Depth Blood Pressure 129/74 129/74 Blood Pressure [Right Arm] Blood Pressure Mean 90 92 Blood Pressure Mean [Right Arm] Blood Pressure Position Pulse Oximetry 97 98 97 Oxygen Delivery Method Room Air Room Air Room Air Sepsis Recent Fever Within 48 Hours Sepsis New/Unexplained Change in Mental Status Sepsis Action Taken by Nursing 11/16/23 17:00 11/16/23 17:50 11/16/23 18:00 Temperature Temperature Source Pulse Rate 62 60 Pulse Rate [Apical] 65 Pulse Rate from SpO2 Sensor 63 60 Respiratory Rate 20 13 16 Respiratory Effort / Characteristics Non-Labored Spontaneous Respiratory Depth Normal Blood Pressure 143/79 H Blood Pressure [Right Arm] 143/79 H Blood Pressure Mean 100 Blood Pressure Mean [Right Arm] 100 Blood Pressure Position Pulse Oximetry 99 98 98 Oxygen Delivery Method Room Air Room Air Room Air Sepsis Recent Fever Within 48 Hours Sepsis New/Unexplained Change in Mental Status Sepsis Action Taken by [facility] Medications Current Medication List: was personally reviewed by me Laboratory Data Attestation: I reviewed the patient's lab results. 11/16/23 14:16 11/16/23 14:16 Lab Results 11/16/23 11/16/23 11/16/23 Range/Units 14:16 14:27 14:29 WBC 6.61 (4.8-10.8) K/ul RBC 4.43 L (4.70-6.10) M/uL Hgb 14.5 (14.0-18.0) g/dl POC Hgb 13.9 L (14.0-18.0) g/dl Hct 42.2 (42.0-52.0) % POC Hct 41 L (42-52) % MCV 95.3 (80.0-100.0) fL MCH 32.7 (25.0-34.0) pg MCHC 34.4 (32.0-36.0) g/dL RDW Std Deviation 53.4 H (36.4-46.3) fL RDW Coeff of Fabiola 15.3 H (11.5-14.5) % Plt Count 45 L (130-400) K/uL MPV 12.4 (9.4-12.4) fL Immature Gran % (Auto) 0.3 % Neut % (Auto) 60.2 % Lymph % (Auto) 20.3 % Nelson % (Auto) 12.4 % Eos % (Auto) 6.2 % Baso % (Auto) 0.6 % Neut # (Auto) 3.98 (1.40-6.50) K/uL Lymph # (Auto) 1.34 (1.20-3.40) K/uL Nelson # (Auto) 0.82 H (0.11-0.59) K/uL Eos # (Auto) 0.41 (0.00-0.50) K/uL Baso # (Auto) 0.04 (0.00-0.20) K/uL Immature Gran # (Auto) 0.02 (0.01-0.20) K/uL PT 14.0 H (9.0-12.0) Seconds INR 1.3 H (0.9-1.1) APTT 31 (21-31) Seconds PTT Ratio 1.2 D-Dimer 1950 H* (0-500) ug/L FEU VBG pH 7.41 (7.36-7.41) VBG pCO2 34 L (38-50) mmHg VBG pO2 63 mmHg VBG HCO3 22 mmol/L VBG O2 Saturation 92.1 % VBG Base Excess -2.4 mEq/L POC Sodium 143 (135-144) mmol/L Sodium 140 (136-145) mmol/L POC Potassium 3.8 (3.3-5.0) mmol/L Potassium 3.8 (3.5-5.1) mmol/L POC Chloride 112 (101-112) mmol/L Chloride 114 H (98-107) mmol/L Carbon Dioxide 21 (21-32) mmol/L POC Total CO2 20 L (24-31) mmol/L Anion Gap 5 (3-11) POC Anion Gap 15.0 L (16-25) mmol/L POC BUN 14 (7-18) mg/dl BUN 14 (6-23) mg/dl Creatinine 0.91 (0.6-1.4) mg/dl POC Creatinine 0.9 (0.6-1.3) mg/dl Est Cr Clr Drug Dosing 87.4 ml/min Est GFR ( Amer) 106.5 ml/min Est GFR (Non-Af Amer) 91.9 ml/min BUN/Creatinine Ratio 15.4 (10-20) Glucose 102 H (70-99(Fasting)) mg/dl POC Glucose (other) 100 H (70-99) mg/dl Calcium 8.8 (8.6-10.3) mg/dl POC Ioniz Calcium Doug 1.22 (1.12-1.32) mmol/l Total Bilirubin 2.8 H (0.2-1.0) mg/dl AST 39 (13-39) U/L ALT 26 (7-52) U/L Alkaline Phosphatase 110 H (34-104) U/L Ammonia 98.0 H (18-72) umol/L Troponin I High Sens 6.9 (0-20) pg/ml Total Protein 6.0 (6.0-8.3) gm/dl Albumin 3.5 (3.4-5.0) gm/dl Globulin 2.5 (2.5-4.0) gm/dl Albumin/Globulin Ratio 1.4 (0.9-2) Lipase 40 (11-82) U/L Urine Color Urine Appearance (Clear) Urine pH (4.5-7.5) Ur Specific Galloway (1.000-1.030) Urine Protein (Negative) Urine Glucose (UA) (Negative) Urine Ketones (Negative) Urine Blood (Negative) Urine Nitrite (Negative) Urine Bilirubin (Negative) Urine Urobilinogen (Negative) Ur Leukocyte Esterase (Negative) Urine WBC (Auto) (0-5) /hpf Urine RBC (Auto) (0-2) /hpf U Hyaline Cast (Auto) (0-2) /lpf U Epithel Cells (Auto) (0-2) /hpf Urine Bacteria (Auto) (None Seen) Urine Opiates Screen (Neg) Ur Methadone, Qual (Neg) Urine Fentanyl Screen (Neg) Urine Barbiturates (Neg) Ur Phencyclidine (PCP) (Neg) U Amphetamin/Meth Scrn (Neg) MDMA (Ecstasy) Screen (Neg) U Benzodiazepines Scrn (Neg) Ur Cocaine Metabolite (Neg) U Marijuana (THC) Screen (Neg) Ethyl Alcohol mg/dL (<10.0) mg/dl Blood Type O Positive Antibody Screen NEGATIVE 11/16/23 11/16/23 Range/Units 14:39 16:55 WBC (4.8-10.8) K/ul RBC (4.70-6.10) M/uL Hgb (14.0-18.0) g/dl POC Hgb (14.0-18.0) g/dl Hct (42.0-52.0) % POC Hct (42-52) % MCV (80.0-100.0) fL MCH (25.0-34.0) pg MCHC (32.0-36.0) g/dL RDW Std Deviation (36.4-46.3) fL RDW Coeff of Fabiola (11.5-14.5) % Plt Count (130-400) K/uL MPV (9.4-12.4) fL Immature Gran % (Auto) % Neut % (Auto) % Lymph % (Auto) % Nelson % (Auto) % Eos % (Auto) % Baso % (Auto) % Neut # (Auto) (1.40-6.50) K/uL Lymph # (Auto) (1.20-3.40) K/uL Nelson # (Auto) (0.11-0.59) K/uL Eos # (Auto) (0.00-0.50) K/uL Baso # (Auto) (0.00-0.20) K/uL Immature Gran # (Auto) (0.01-0.20) K/uL PT (9.0-12.0) Seconds INR (0.9-1.1) APTT (21-31) Seconds PTT Ratio D-Dimer (0-500) ug/L FEU VBG pH (7.36-7.41) VBG pCO2 (38-50) mmHg VBG pO2 mmHg VBG HCO3 mmol/L VBG O2 Saturation % VBG Base Excess mEq/L POC Sodium (135-144) mmol/L Sodium (136-145) mmol/L POC Potassium (3.3-5.0) mmol/L Potassium (3.5-5.1) mmol/L POC Chloride (101-112) mmol/L Chloride (98-107) mmol/L Carbon Dioxide (21-32) mmol/L POC Total CO2 (24-31) mmol/L Anion Gap (3-11) POC Anion Gap (16-25) mmol/L POC BUN (7-18) mg/dl BUN (6-23) mg/dl Creatinine (0.6-1.4) mg/dl POC Creatinine (0.6-1.3) mg/dl Est Cr Clr Drug Dosing ml/min Est GFR ( Amer) ml/min Est GFR (Non-Af Amer) ml/min BUN/Creatinine Ratio (10-20) Glucose (70-99(Fasting)) mg/dl POC Glucose (other) (70-99) mg/dl Calcium (8.6-10.3) mg/dl POC Ioniz Calcium Doug (1.12-1.32) mmol/l Total Bilirubin (0.2-1.0) mg/dl AST (13-39) U/L ALT (7-52) U/L Alkaline Phosphatase (34-104) U/L Ammonia (18-72) umol/L Troponin I High Sens (0-20) pg/ml Total Protein (6.0-8.3) gm/dl Albumin (3.4-5.0) gm/dl Globulin (2.5-4.0) gm/dl Albumin/Globulin Ratio (0.9-2) Lipase (11-82) U/L Urine Color Yellow Urine Appearance Clear (Clear) Urine pH 6.0 (4.5-7.5) Ur Specific Galloway > 1.045 H (1.000-1.030) Urine Protein Negative (Negative) Urine Glucose (UA) Negative (Negative) Urine Ketones Negative (Negative) Urine Blood Trace H (Negative) Urine Nitrite Negative (Negative) Urine Bilirubin Negative (Negative) Urine Urobilinogen Positive H (Negative) Ur Leukocyte Esterase Negative (Negative) Urine WBC (Auto) 0-5 (0-5) /hpf Urine RBC (Auto) 6-10 H (0-2) /hpf U Hyaline Cast (Auto) 0-2 (0-2) /lpf U Epithel Cells (Auto) 0-2 (0-2) /hpf Urine Bacteria (Auto) None Seen (None Seen) Urine Opiates Screen Neg (Neg) Ur Methadone, Qual Neg (Neg) Urine Fentanyl Screen Neg (Neg) Urine Barbiturates Neg (Neg) Ur Phencyclidine (PCP) Neg (Neg) U Amphetamin/Meth Scrn Neg (Neg) MDMA (Ecstasy) Screen Neg (Neg) U Benzodiazepines Scrn Neg (Neg) Ur Cocaine Metabolite Neg (Neg) U Marijuana (THC) Screen Neg (Neg) Ethyl Alcohol mg/dL < 10.0 (<10.0) mg/dl Blood Type Antibody Screen Administered Medications Discontinued Medications Ioversol (Optiray 320 125ml) 120 ml IV ONCE ONE Stop: 11/16/23 15:44 Last Admin: 11/16/23 15:43 Dose: 120 ml Documented By: OLIMPIA Lactulose (Lactulose Syrup 30 Gm/45 Ml Udp) 30 gm PO NOW STA Stop: 11/16/23 16:32 Last Admin: 11/16/23 17:48 Dose: 30 gm Documented By: [facility] Imaging Data Attestation: I personally reviewed and interpreted this imaging study as follows: My Impression: 1 view chest x-ray was obtained in the emergency department. My interpretation is no free air or definite infiltrate, final report below. CT of the abdomen and pelvis was obtained. My interpretation is no free air or signs of bowel obstruction, final report below. Radiologist's Impression: Chest X-Ray 11/16/23 14:07 XR chest 1V portable CLINICAL HISTORY: Chest pain. COMPARISON STUDY: Chest CT May 2023 and chest radiograph September 30, 2023. FINDINGS: Lung volumes are normal. Lungs are clear. There is no pneumothorax or pleural effusion. Cardiac size is stable. Mediastinal contours are normal. There is no evidence for pulmonary edema. IMPRESSION: No acute cardiopulmonary findings. ACT 112: Negative or not required by law. Electronically signed by: Hira Cordova M.D. 11/16/2023 2:39 PM Abdomen/Pelvis CT 11/16/23 15:00 CT angio chest PE protocol, CT abd pelvis IV con only CT DOSE: 2245.27 mGy.cm HISTORY: 58 years-old Male with PE. Acute shortness of breath with chest and abdominal pain TECHNIQUE: Multiple CTA images of the chest were obtained after the intravenous administration of 120 ml Optiray. Coronal and sagittal MIPS were obtained from the axial data set and were submitted for review. All measurements were obtained according to NASCET criteria. CT abdomen and pelvis with IV contrast only also obtained. A dose lowering technique was utilized adhering to the principles of ALARA. COMPARISON: CT abdomen and pelvis 06/25/2023, CT chest 05/11/2023 FINDINGS: CTA: Heart is normal in size. Moderate coronary artery calcifications. No thoracic aortic aneurysm. No pulmonary emboli identified. CT CHEST: Unremarkable thyroid. No lymphadenopathy. Gynecomastia. Lungs are clear. No pneumothorax, pleural effusion or airspace consolidation. Minimal subpleural reticulation of the anterior right upper lobe is unchanged suggestive of scarring scarring/fibrosis. Central airways are patent. Unremarkable soft tissues. No acute fracture. CT ABDOMEN/PELVIS: No free air. Spleen measures 16 cm. Scattered calcified granulomata of the splenic parenchyma. Unremarkable pancreas and adrenal glands. Cholecystectomy. Cirrhotic liver with scattered subcentimeter hypodensities suggestive of cysts redemonstrated. No solid hepatic mass lesions identified. Patent portal vein. Abdominal pelvic varicosities redemonstrated. Bilateral renal sinus cysts. No hydronephrosis. Decompressed urinary bladder with wall thickening. Trace abdominal pelvic ascites. Atherosclerosis of the aorta with infrarenal ectasia, 2.9 x 2.6 cm. Paraesophageal varicosities. Gastric wall thickening with partial distention. No bowel obstruction. Scattered large bowel air-fluid levels. Appendix it is reportedly surgically absent. Postoperative changes of the anterior abdominal wall. Left hip arthroplasty. No acute fracture. IMPRESSION: 1. Unremarkable CTA of the chest. No pulmonary emboli. 2. Cirrhosis with stigmata of portal venous hypertension including splenomegaly with abdominal pelvic varicosities and trace ascites. 3. No bowel obstruction or pneumoperitoneum. 4. Scattered colonic air-fluid levels may be physiologic or represent diarrheal illness. 5. Incidental findings as above. ACT 112: Negative or not required by law. The above report was generated using voice recognition software. It may contain grammatical, syntax or spelling errors. Electronically signed by: Gerardo Brown M.D. 11/16/2023 4:26 PM Chest CTA 11/16/23 15:00 CT angio chest PE protocol, CT abd pelvis IV con only CT DOSE: 2245.27 mGy.cm HISTORY: 58 years-old Male with PE. Acute shortness of breath with chest and abdominal pain TECHNIQUE: Multiple CTA images of the chest were obtained after the intravenous administration of 120 ml Optiray. Coronal and sagittal MIPS were obtained from the axial data set and were submitted for review. All measurements were obtained according to NASCET criteria. CT abdomen and pelvis with IV contrast only also obtained. A dose lowering technique was utilized adhering to the principles of ALARA. COMPARISON: CT abdomen and pelvis 06/25/2023, CT chest 05/11/2023 FINDINGS: CTA: Heart is normal in size. Moderate coronary artery calcifications. No thoracic aortic aneurysm. No pulmonary emboli identified. CT CHEST: Unremarkable thyroid. No lymphadenopathy. Gynecomastia. Lungs are clear. No pneumothorax, pleural effusion or airspace consolidation. Minimal subpleural reticulation of the anterior right upper lobe is unchanged suggestive of scarring scarring/fibrosis. Central airways are patent. Unremarkable soft tissues. No acute fracture. CT ABDOMEN/PELVIS: No free air. Spleen measures 16 cm. Scattered calcified granulomata of the splenic parenchyma. Unremarkable pancreas and adrenal glands. Cholecystectomy. Cirrhotic liver with scattered subcentimeter hypodensities suggestive of cysts redemonstrated. No solid hepatic mass lesions identified. Patent portal vein. Abdominal pelvic varicosities redemonstrated. Bilateral renal sinus cysts. No hydronephrosis. Decompressed urinary bladder with wall thickening. Trace abdominal pelvic ascites. Atherosclerosis of the aorta with infrarenal ectasia, 2.9 x 2.6 cm. Paraesophageal varicosities. Gastric wall thickening with partial distention. No bowel obstruction. Scattered large bowel air-fluid levels. Appendix it is reportedly surgically absent. Postoperative changes of the anterior abdominal wall. Left hip arthroplasty. No acute fracture. IMPRESSION: 1. Unremarkable CTA of the chest. No pulmonary emboli. 2. Cirrhosis with stigmata of portal venous hypertension including splenomegaly with abdominal pelvic varicosities and trace ascites. 3. No bowel obstruction or pneumoperitoneum. 4. Scattered colonic air-fluid levels may be physiologic or represent diarrheal illness. 5. Incidental findings as above. ACT 112: Negative or not required by law. The above report was generated using voice recognition software. It may contain grammatical, syntax or spelling errors. Electronically signed by: Gerardo Brown M.D. 11/16/2023 4:26 PM Discharge Plan Visit Data Chief Complaint: Cardiac Assessment Stated Complaint: CHEST PAINS, VERTIGO ED Provider: Zay Nelson Discharge Problem: Chest pain, Hyperammonemia, Acute confusion, Encephalopathy, hepatic, Abdominal pain Patient Disposition: Being Evaluated by Hospitalist Forms Stand Alone Forms: My [facility] Prescriptions Prescriptions: No Action atorvastatin 20 mg Tablet 20 mg PO QAM pantoprazole 40 mg Tablet,Delayed Release (Dr/Ec) 40 mg PO BID magnesium oxide 400 mg (241.3 mg magnesium) tablet 400 mg PO AMHS lactulose 10 gram/15 mL solution 20 g PO QID Rx Instructions: to have 3 BM's daily gabapentin 100 mg capsule 100 mg PO BID Rx Instructions: TAKES QAM & LUNCH TIME Xifaxan 550 mg tablet 550 mg PO BID fluoxetine 10 mg capsule 10 mg PO QAM trazodone 50 mg tablet 100 mg PO HS ferrous sulfate [iron] 325 mg (65 mg iron) Tablet 325 mg PO DAILY lorazepam 0.5 mg tablet 0.5 mg PO QAM gabapentin 300 mg Capsule 300 mg PO HS epinephrine [EpiPen] 0.3 mg/0.3 mL Auto-Injector 0.3 mg IM DIRECTED PRN (Reason: Allergic Reaction) furosemide 20 mg tablet 20 mg PO DAILY Referrals Referrals: Toby Paz MD [Primary Care Provider] - Discharge Problem: Chest pain Qualifiers: Chest pain type: unspecified Qualified Code(s): R07.9 - Chest pain, unspecified Abdominal pain Qualifiers: Abdominal location: upper abdomen, unspecified Qualified Code(s): R10.10 - Upper abdominal pain, unspecified
[2023-11-16 14:32] LABS: Base Excess VBG -2.4 mEq/L; HCO3 VBG 22 mmol/L; Oxygen Saturation VBG 92.1 %; PCO2 VBG 34 mmHg (38-50); PO2 VBG 63 mmHg; pH VBG 7.41 (7.36-7.41)
[2023-11-16 14:36] LABS: Basophils # (auto) 0.04 K/uL (0.00-0.20); Basophils % (auto) 0.6 %; Eosinophils # (auto) 0.41 K/uL (0.00-0.50); Eosinophils % (auto) 6.2 %; Hematocrit (blood only) 42.2 % (42.0-52.0); Hemoglobin 14.5 g/dl (14.0-18.0); Immature Granulocytes # (auto) 0.02 K/uL (0.01-0.20); Immature Granulocytes % (auto) 0.3 %; Lymphocytes # (auto) 1.34 K/uL (1.20-3.40); Lymphocytes % (auto) 20.3 %; Mean Corpuscular Hemoglobin 32.7 pg (25.0-34.0); Mean Corpuscular Hgb Conc 34.4 g/dL (32.0-36.0); Mean Corpuscular Volume 95.3 fL (80.0-100.0); Mean Platelet Volume 12.4 fL (9.4-12.4); Monocytes # (auto) 0.82 K/uL (0.11-0.59); Monocytes % (auto) 12.4 %; Neutrophils # (auto) 3.98 K/uL (1.40-6.50); Neutrophils % (auto) 60.2 %; Platelet Count 45 K/uL (130-400); RDW Coefficient of Variation 15.3 % (11.5-14.5); RDW Standard Deviation 53.4 fL (36.4-46.3); Red Blood Count 4.43 M/uL (4.70-6.10); White Blood Count 6.61 K/ul (4.8-10.8)
--- NOTE | 2023-11-16 14:40 | XRay Report ---
XR chest 1V portable CLINICAL HISTORY: Chest pain. COMPARISON STUDY: Chest CT May 2023 and chest radiograph September 30, 2023. FINDINGS: Lung volumes are normal. Lungs are clear. There is no pneumothorax or pleural effusion. Car diac size is stable. Mediastinal contours are normal. There is no evidence for pulmonary edema. IMPRESSION: No acute cardiopulmonary findings. ACT 112: Negative or not required by law. Electronically signed by: Hira Cordova M.D. 11/16/2023 2:39 PM
[2023-11-16 14:41] LABS: iSTAT Creatinine 0.9 mg/dl (0.6-1.3); iSTAT Hemoglobin 13.9 g/dl (14.0-18.0); iSTAT Ionized Calcium 1.22 mmol/l (1.12-1.32); iSTAT Potassium 3.8 mmol/L (3.3-5.0)
[2023-11-16 14:46] LABS: INR 1.3 (0.9-1.1); Partial Thromboplastin Ratio 1.2; Partial Thromboplastin Time 31 Seconds (21-31)
[2023-11-16 14:55] LABS: Albumin Globulin Ratio 1.4 (0.9-2); Albumin Level 3.5 gm/dl (3.4-5.0); BUN Creatinine Ratio 15.4 (10-20); Bilirubin,Total 2.8 mg/dl (0.2-1.0); Calcium 8.8 mg/dl (8.6-10.3); Creatinine Clr Calc Pharmacy 87.4 ml/min; D Dimer 1950 ug/L FEU (0-500); Est GFR (African American) 106.5 ml/min; Est GFR (Non-African American) 91.9 ml/min; Globulin 2.5 gm/dl (2.5-4.0); Potassium 3.8 mmol/L (3.5-5.1)
[2023-11-16 15:41] LABS: Troponin I High Sensitivity 6.9 pg/ml (0-20)
[2023-11-16] MEDS: OPTIRAY 320 125ml IV ONE (15:43)
--- NOTE | 2023-11-16 16:28 | CT Scan Report ---
CT angio chest PE protocol, CT abd pelvis IV con only CT DOSE: 2245.27 mGy.cm HISTORY: 58 years-old Male with PE. Acute shortness of breath with chest and abdominal pain TECHNIQUE: Multiple CTA images of the chest were obtained after the intravenous administration of 120 ml Optiray. Coronal and sagittal MIPS were obtained from the axial data set and were submitted for review. All measurements were obtained according to NASCET criteria. CT abdomen and pelvis with IV c ontrast only also obtained. A dose lowering technique was utilized adhering to the principles of ANNETTA Jarquin. COMPARISON: CT abdomen and pelvis 06/25/2023, CT chest 05/11/2023 FINDINGS: CTA: Heart is normal in size. Moderate coronary artery calcifications. No thoracic aortic aneurysm. No pul monary emboli identified. CT CHEST: Unremarkable thyroid. No lymphadenopathy. Gynecomastia. Lungs are clear. No pneumothorax, pleural eff usion or airspace consolidation. Minimal subpleural reticulation of the anterior right upper lobe is unchanged suggestive of scarring scarring/fibrosis. Central airways are patent. Unremarkable soft tis sues. No acute fracture. CT ABDOMEN/PELVIS: No free air. Spleen measures 16 cm. Scattered calcified granulomata of the splenic parenchyma. Unrema rkable pancreas and adrenal glands. Cholecystectomy. Cirrhotic liver with scattered subcentimeter hyp odensities suggestive of cysts redemonstrated. No solid hepatic mass lesions identified. Patent denise l vein. Abdominal pelvic varicosities redemonstrated. Bilateral renal sinus cysts. No hydronephrosis. Decompressed urinary bladder with wall thickening. Tr mary abdominal pelvic ascites. Atherosclerosis of the aorta with infrarenal ectasia, 2.9 x 2.6 cm. Paraesophageal varicosities. Gastric wall thickening with partial distention. No bowel obstruction. S cattered large bowel air-fluid levels. Appendix it is reportedly surgically absent. Postoperative donya nges of the anterior abdominal wall. Left hip arthroplasty. No acute fracture. IMPRESSION: 1. Unremarkable CTA of the chest. No pulmonary emboli. 2. Cirrhosis with stigmata of portal venous hypertension including splenomegaly with abdominal pelvic varicosities and trace ascites. 3. No bowel obstruction or pneumoperitoneum. 4. Scattered colonic air-fluid levels may be physiologic or represent diarrheal illness. 5. Incidental findings as above. ACT 112: Negative or not required by law. The above report was generated using voice recognition software. It may contain grammatical, syntax o r spelling errors. Electronically signed by: Gerardo Brown M.D. 11/16/2023 4:26 PM
[2023-11-16 17:12] LABS: Appearance Urine Clear (Clear); Bacteria Urine Automated None Seen (None Seen); Bilirubin Urine Negative (Negative); Blood Urine Trace (Negative); Cast Urine Automated 0-2 /lpf (0-2); Color Urine Yellow; Epithelial Cell Urine Auto 0-2 /hpf (0-2); Glucose Urine UA Negative (Negative); Ketones Urine Negative (Negative); Leukocyte Esterase Urine Negative (Negative); Nitrite Urine Negative (Negative); Protein Urine Negative (Negative); Specific Gravity Urine > 1.045 (1.000-1.030); Urobilinogen Urine Positive (Negative); WBC Urine Automated 0-5 /hpf (0-5)
--- NOTE | 2023-11-16 17:13 | History & Physical Report ---
Date of Service November 16, 2023 Assessment & Plan (1) Right upper quadrant abdominal pain: (2) Hepatic encephalopathy: (3) Hyperammonemia: (4) Ambulatory dysfunction: Plan Mauro Liu is a 58y/o M with PMHx of dyslipidemia, history of hepatic encephalopathy, HTN, esophageal varices without bleeding, history of KS, AAA, history of TIA, history of alcoholic cirrhosis, GERD with esophagitis, DDD, SBO, chronic thrombocytopenia, history of anemia, history of depression and other problems listed below who presented to the ED for evaluation 2/2 RUQ abdominal pain. RUQ Abdominal Pain Trop WNL at 6.9, CXR negative. UA negative. EKG w/o ischemic changes. Low suspicion for ACS. D-Dimer elevated at 1950 likely ISO cirrhosis, CTA negative for PE. CTAP showing cirrhosis w/ stigmata of portal venous hypertension including splenomegaly w/ abdominal pelvic varicosities and trace ascites. It also revealed scattered colonic air-fluid levels that could either represent diarrheal illness or may be physiologic, no bowel obstruction or pneumoperit oneum. Hepatic Encephalopathy, Hyperammonemia H/O Alcoholic Cirrhosis & Ambulatory Dysfunction [Likely 2/2 encephalopathy] Compliant w/ lactulose therapy at home. Pt following w/ [facility]. Awaiting liver transplant. Ammonia level 98.0, trend in AM. AST 39, ALT 26 and Alk Phos 110. Total bili 2.8 on admission. INR 1.3, unchanged from baseline. Lactulose 30G given in ED. Holding lactulose for now as patient already had 4 doses and ~8 BMs today. Continue Xifaxan 550mg BID. Goal of 3-4 BMs/day. Avoid sedating medications. CMP, ammonia level in AM - follow results. Patient reports being unsteady on his feet, denies any recent falls or trauma. Will proceed with PT/OT consults. Chronic Thrombocytopenia: Plt count 45 on admission, baseline plt count ~40s per chart review. Hgb stable at 14.9, can continue [employer] iron supplementation. HLD: Continue [employer] atorvastatin. Depression: Continue [employer] fluoxetine. H/O Left Total Hip Arthroplasty, DDD: Continue [employer] gabapentin. Plan to hold gabapentin if pt is overtly sleepy 2/2 drowsiness effect. GERD: Continue [employer] pantoprazole. H/O Esophageal Varices Chronic, no overt signs of bleeding. Last upper GI endoscopy performed on 10/18/23 showed grade I esophageal varices and portal hypertensive gastropathy. Patient does report 2 episodes of blackish stools yesterday. Hgb stable. Fecal occult stool pending - follow results. Patient started on IV Protonix BID for now. Trend H/H. H/O Sleeping Issues: Holding [employer] trazodone and PRN Ativan for now 2/2 encephalopathy and concern for drowsiness. DVT Prophylaxis: SCD, JUVENTINO. Chemoprophylaxis C/I with chronic thrombocytopenia. Code Status: FULL CODE PCP: Toby Paz MD Dispo: Admit to Med/Surg + Telemetry Patient seen in collaboration with Dr. Perea. Please see addendum. I spent a total of 70 minutes coordinating, documenting, and providing care for this patient excluding time spent in the performance of separately billed services. This included personally reviewing all current laboratories and imaging studies, medical reconciliation, outpatient chart review and discussion with specialists. This chart was completed in part utilizing Speech Voice Recognition Software. Grammatical errors, random word insertions, pronoun errors, and incomplete sentences are an occasional consequence of this system due to software limitations, ambient noise, and hardware issues. Any formal questions or concerns about the content, text, or information contained within the body of this dictation should be directly addressed to the provider for clarification. History of Present Illness Chief Complaint: RUQ Abdominal Pain Primary Care Provider: Toby Paz MD Mauro Liu is a 58y/o M with PMHx of dyslipidemia, history of hepatic encephalopathy, HTN, esophageal varices without bleeding, history of KS, AAA, history of TIA, history of alcoholic cirrhosis, GERD with esophagitis, DDD, SBO, chronic thrombocytopenia, history of anemia, history of depression and other problems listed below who presented to the ED for evaluation 2/2 RUQ abdominal pain. History obtained from patient, significant other at bedside and associated chart review. Patient reports that he experienced an episode of sharp, stabbing RUQ abdominal pain this morning that only lasted a few minutes. Since then, he has had a dull achy pain in his RUQ abdominal region. He is also tender to palpation in that area of his abdomen as well. Denies any nausea or vomiting. Significant other mentions that he was acting somewhat more "confused" this morning, therefore she can him a double dose of lactulose. He received a total of 3 doses of lactulose prior to arrival and has since then had approximately 8 bowel movements. Patient reports that he feels rather unsteady on his feet, which is unchanged from his previous admission. No recent falls or trauma. Of note, patient was recently admitted back in September here at [facility] 2/2 hepatic encephalopathy and hyperammonemia. Allergies Allergy/AdvReac Type Severity Reaction Status Date / Time bee venom protein (honey bee) Allergy Severe Anaphylaxis--CARRIES Verified 11/16/23 17:24 AN EPIPEN Home Medications Medication Instructions Recorded Confirmed Type atorvastatin 20 mg tablet 20 mg PO QAM 01/18/18 11/16/23 History pantoprazole 40 mg tablet,delayed 40 mg PO BID 07/26/18 11/16/23 History release lactulose 10 gram/15 mL oral 20 g PO QID 11/24/21 11/16/23 History solution magnesium oxide 400 mg (241.3 mg 400 mg PO AMHS 11/24/21 11/16/23 History magnesium) tablet gabapentin 100 mg capsule 100 mg PO BID 02/23/22 11/16/23 History rifaximin 550 mg tablet (Xifaxan) 550 mg PO BID 02/23/22 11/16/23 History fluoxetine 10 mg capsule 10 mg PO QAM 01/11/23 11/16/23 History ferrous sulfate 325 mg (65 mg 325 mg PO DAILY 05/11/23 11/16/23 History iron) tablet (iron) trazodone 50 mg tablet 100 mg PO HS 05/11/23 11/16/23 History epinephrine 0.3 mg/0.3 mL 0.3 mg IM DIRECTED PRN Allergic 09/30/23 11/16/23 History injection, auto-injector (EpiPen) Reaction gabapentin 300 mg capsule 300 mg PO HS 09/30/23 11/16/23 History lorazepam 0.5 mg tablet 0.5 mg PO QAM Anxiety 09/30/23 11/16/23 History furosemide 20 mg tablet 20 mg PO DAILY 11/16/23 11/16/23 History Past Med/Surg History Problem List Right upper quadrant abdominal pain Abdominal pain (Acute) Chest pain (Acute) Chest discomfort Hepatic encephalopathy (Acute) Atypical chest pain (Acute) Encephalopathy, hepatic (Acute) Depression GERD (gastroesophageal reflux disease) Acute confusion (Acute) Hyperammonemia (Acute) Thrombocytopenia (Acute) Acute hepatic encephalopathy (Acute) History of total left hip replacement (Acute) Bilateral leg pain (Acute) Altered mental status (Acute) Confusion Avascular necrosis of femur Hip pain Ambulatory dysfunction (Acute) Hyperammonemia (Acute) Acute pain of left hip (Acute) Alcoholic cirrhosis Dilated aortic root Acute alteration in mental status (Acute) Thrombocytopenia (Acute) Bilateral arm weakness (Acute) Acute hepatic encephalopathy (Acute) H/O angioedema (Chronic) ongoing, follows with allergy Elevated LFTs (Acute) HTN (hypertension) (Chronic) Acid reflux Abnormal PFT Thrombocytopenia UTI (urinary tract infection) Cirrhosis of liver Cough Encounter for pre-operative examination RUQ pain Insomnia (Chronic) Intractable right upper quadrant abdominal pain (Acute) GERD (gastroesophageal reflux disease) (Chronic) Migraine (Chronic) Medical History History of ascites Acute alteration in mental status Nausea HLD (hyperlipidemia) Hypertension Hyperlipidemia Surgical History History of esophagogastroduodenoscopy (EGD) History of colonoscopy History of bowel resection 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 History of appendectomy History of tooth extraction Family History Father Hearing loss Hypertension Stroke Heart disease Other No pertinent family history in first degree relatives Denies family history of No family history of adverse response to anesthesia No family history of bleeding disorder Allergies Asthma Social History Smoking Status: Never smoker Tobacco Type: Cigarettes Cigarettes Per Day: 1-2; Second Hand Exposure: No; Do You Dip or Chew Tobacco: No; Hx Alcohol Use: No Hx Substance Use: No Preferred Language: Upper Sorbian Communication Ability: Effective Washer Carcass Required: No Beliefs That Will Affect Care: None marital status: Current Living Situation: Significant Other Current Living Situation Comment: LIVES WITH GIRLFRIEND 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 Physical Exam 2 Physical Exam: General: NAD, appears rather tired, conversing appropriately, A+Ox3, resting comfortably in bed lying down. HEENT: Normocephalic, atraumatic. EOMI, conjunctivae normal, anicteric sclerae, droopy eyelids, oropharynx normal. Respiratory: Normal respiratory effort, lungs clear to auscultation, no wheeze, rales, rhonchi. No accessory muscle use. Cardiovascular: Regular rate, rhythm, no murmur, normal peripheral pulses, no BLE edema. Vessels: No JVD. Abdomen/GI: Normal bowel sounds, soft, mildly tender to palpation in RUQ, no hepatosplenomegaly. Extremities/Musculoskeletal: No cyanosis or clubbing. Gross sensation intact in all extremities, slow with ambulation. Neurologic: Accommodation nl, no face palsy, no dysarthria, CN's II-XI not formally tested but appear intact bilaterally. Skin: No rashes, normal color, warm/dry, mildly jaundiced. Results & Data Results & Data Vital Signs (Past 12 Hours) Vital Signs Temp Pulse Resp BP Pulse Ox O2 Del Method 11/16/23 17:00 62 20 99 Room Air 11/16/23 16:33 63 15 97 Room Air 11/16/23 16:06 63 16 129/74 98 Room Air 11/16/23 15:59 66 16 129/74 97 Room Air 11/16/23 14:25 Room Air 11/16/23 14:21 66 11/16/23 13:56 36.7 C 72 18 118/68 95 Room Air Laboratory Results Short CBC 11/16/23 Range/Units 14:16 WBC 6.61 (4.8-10.8) K/ul Hgb 14.5 (14.0-18.0) g/dl Hct 42.2 (42.0-52.0) % Plt Count 45 L (130-400) K/uL BMP 11/16/23 14:16 Sodium 140 Potassium 3.8 Chloride 114 H Carbon Dioxide 21 BUN 14 Creatinine 0.91 Glucose 102 H Calcium 8.8 Liver Function 11/16/23 Range/Units 14:16 Total Bilirubin 2.8 H (0.2-1.0) mg/dl AST 39 (13-39) U/L ALT 26 (7-52) U/L Alkaline Phosphatase 110 H (34-104) U/L Albumin 3.5 (3.4-5.0) gm/dl Urine 11/16/23 Range/Units 16:55 Urine Color Yellow Urine Appearance Clear (Clear) Urine pH 6.0 (4.5-7.5) Ur Specific [place] > 1.045 H (1.000-1.030) Urine Protein Negative (Negative) Urine Glucose (UA) Negative (Negative) Diagnostic Findings Chest X-Ray 11/16/23 14:07 XR chest 1V portable CLINICAL HISTORY: Chest pain. COMPARISON STUDY: Chest CT May 2023 and chest radiograph September 30, 2023. FINDINGS: Lung volumes are normal. Lungs are clear. There is no pneumothorax or pleural effusion. Cardiac size is stable. Mediastinal contours are normal. There is no evidence for pulmonary edema. IMPRESSION: No acute cardiopulmonary findings. ACT 112: Negative or not required by law. Electronically signed by: Hira Cordova M.D. 11/16/2023 2:39 PM Abdomen/Pelvis CT 11/16/23 15:00 CT angio chest PE protocol, CT abd pelvis IV con only CT DOSE: 2245.27 mGy.cm HISTORY: 58 years-old Male with PE. Acute shortness of breath with chest and abdominal pain TECHNIQUE: Multiple CTA images of the chest were obtained after the intravenous administration of 120 ml Optiray. Coronal and sagittal MIPS were obtained from the axial data set and were submitted for review. All measurements were obtained according to NASCET criteria. CT abdomen and pelvis with IV contrast only also obtained. A dose lowering technique was utilized adhering to the principles of ALARA. COMPARISON: CT abdomen and pelvis 06/25/2023, CT chest 05/11/2023 FINDINGS: CTA: Heart is normal in size. Moderate coronary artery calcifications. No thoracic aortic aneurysm. No pulmonary emboli identified. CT CHEST: Unremarkable thyroid. No lymphadenopathy. Gynecomastia. Lungs are clear. No pneumothorax, pleural effusion or airspace consolidation. Minimal subpleural reticulation of the anterior right upper lobe is unchanged suggestive of scarring scarring/fibrosis. Central airways are patent. Unremarkable soft tissues. No acute fracture. CT ABDOMEN/PELVIS: No free air. Spleen measures 16 cm. Scattered calcified granulomata of the splenic parenchyma. Unremarkable pancreas and adrenal glands. Cholecystectomy. Cirrhotic liver with scattered subcentimeter hypodensities suggestive of cysts redemonstrated. No solid hepatic mass lesions identified. Patent portal vein. Abdominal pelvic varicosities redemonstrated. Bilateral renal sinus cysts. No hydronephrosis. Decompressed urinary bladder with wall thickening. Trace abdominal pelvic ascites. Atherosclerosis of the aorta with infrarenal ectasia, 2.9 x 2.6 cm. Paraesophageal varicosities. Gastric wall thickening with partial distention. No bowel obstruction. Scattered large bowel air-fluid levels. Appendix it is reportedly surgically absent. Postoperative changes of the anterior abdominal wall. Left hip arthroplasty. No acute fracture. IMPRESSION: 1. Unremarkable CTA of the chest. No pulmonary emboli. 2. Cirrhosis with stigmata of portal venous hypertension including splenomegaly with abdominal pelvic varicosities and trace ascites. 3. No bowel obstruction or pneumoperitoneum. 4. Scattered colonic air-fluid levels may be physiologic or represent diarrheal illness. 5. Incidental findings as above. ACT 112: Negative or not required by law. The above report was generated using voice recognition software. It may contain grammatical, syntax or spelling errors. Electronically signed by: Gerardo Brown M.D. 11/16/2023 4:26 PM Chest CTA 11/16/23 15:00 CT angio chest PE protocol, CT abd pelvis IV con only CT DOSE: 2245.27 mGy.cm HISTORY: 58 years-old Male with PE. Acute shortness of breath with chest and abdominal pain TECHNIQUE: Multiple CTA images of the chest were obtained after the intravenous administration of 120 ml Optiray. Coronal and sagittal MIPS were obtained from the axial data set and were submitted for review. All measurements were obtained according to NASCET criteria. CT abdomen and pelvis with IV contrast only also obtained. A dose lowering technique was utilized adhering to the principles of ALARA. COMPARISON: CT abdomen and pelvis 06/25/2023, CT chest 05/11/2023 FINDINGS: CTA: Heart is normal in size. Moderate coronary artery calcifications. No thoracic aortic aneurysm. No pulmonary emboli identified. CT CHEST: Unremarkable thyroid. No lymphadenopathy. Gynecomastia. Lungs are clear. No pneumothorax, pleural effusion or airspace consolidation. Minimal subpleural reticulation of the anterior right upper lobe is unchanged suggestive of scarring scarring/fibrosis. Central airways are patent. Unremarkable soft tissues. No acute fracture. CT ABDOMEN/PELVIS: No free air. Spleen measures 16 cm. Scattered calcified granulomata of the splenic parenchyma. Unremarkable pancreas and adrenal glands. Cholecystectomy. Cirrhotic liver with scattered subcentimeter hypodensities suggestive of cysts redemonstrated. No solid hepatic mass lesions identified. Patent portal vein. Abdominal pelvic varicosities redemonstrated. Bilateral renal sinus cysts. No hydronephrosis. Decompressed urinary bladder wi th wall thickening. Trace abdominal pelvic ascites. Atherosclerosis of the aorta with infrarenal ectasia, 2.9 x 2.6 cm. Paraesophageal varicosities. Gastric wall thickening with partial distention. No bowel obstruction. Scattered large bowel air-fluid levels. Appendix it is reportedly surgically absent. Postoperative changes of the anterior abdominal wall. Left hip arthroplasty. No acute fracture. IMPRESSION: 1. Unremarkable CTA of the chest. No pulmonary emboli. 2. Cirrhosis with stigmata of portal venous hypertension including splenomegaly with abdominal pelvic varicosities and trace ascites. 3. No bowel obstruction or pneumoperitoneum. 4. Scattered colonic air-fluid levels may be physiologic or represent diarrheal illness. 5. Incidental findings as above. ACT 112: Negative or not required by law. The above report was generated using voice recognition software. It may contain grammatical, syntax or spelling errors. Electronically signed by: Gerardo Brown M.D. 11/16/2023 4:26 PM Medications Administered Discontinued Medications Ioversol (Optiray 320 125ml) 120 ml IV ONCE ONE Stop: 11/16/23 15:44 Last Admin: 11/16/23 15:43 Dose: 120 ml Documented By: KSF Code Status & VTE Plan Code Status FULL CODE Supervising Physician Co-Signing Physician Notes Patient was seen and examined independently at bedside. Chart reviewed. Case di scussed with Ro ESPINOZA and agree with the documentation above. In summary, this is a 58 year old male with cirrhosis who presented to the ED with RUQ pain and confusion. Currently pain free. Has h/o cholecystectomy. No similar episodes before. Had 4 BM at home and 4 here today in ED. He is AAOx3 during my encounter, conversing appropriately, chest clear, heart sounds normal, normal, no asterixis. States he is planned for liver transplant in December in [facility] awaiting availability of donor liver. Labs and imaging reviewed. CT with no acute abnormality, LFTs stable. Will monitor with repeat labs in am. If recurrent RUQ pain, consider GI/surgery evaluation. Hold diuretics and lactulose for today. PT OT eval. Rest as per the note above.
[2023-11-16] MEDS: LACTULOSE SYRUP 30 GM/45 ML UDP PO STA (17:48)
[2023-11-16 17:52] LABS: Amphetamines+Metham, Urine Neg (Neg); Barbiturates, Urine Neg (Neg); Benzodiazepine, Urine Neg (Neg); Cocaine, Urine Neg (Neg); Fentanyl, Urine Neg (Neg); MDMA (Ecstacy), Urine Neg (Neg); Marijuana, Urine Neg (Neg); Methadone, Urine Neg (Neg); Opiate, Urine Neg (Neg); Phencyclidine, Urine Neg (Neg)
[2023-11-16] MEDS ORDERED: ONDANSETRON INJ 2 MG/ML 2 ML VIAL IV PRN (22:21)
[2023-11-16 22:55] LABS: Hematocrit (blood only) 41.6 % (42.0-52.0); Hemoglobin 14.3 g/dl (14.0-18.0)
[2023-11-16] MEDS: PANTOprazole 40 MG in SYRINGE 0 ML IV SCH (22:58)
[2023-11-16] MEDS: MAGNESIUM OXIDE 400 MG TAB PO SCH (22:59)
[2023-11-16] MEDS: rifAXIMin 550 MG TABLET PO SCH (22:59)
[2023-11-16] MEDS: GABAPENTIN 300 MG CAP PO SCH (22:59)
--- OUTSIDE RECORDS SUMMARY | 2023-11-17 | External Medical Summary | Summary of Care ---
Author Name Unknown Organization [facility] Address [address] [place] [address] Phone [phone] Care Team Providers Care Apparatus Repair Mechanic Name Role Phone Rao Ochoa MD Primary Care Provider [phone] Reason for Visit * Reason Onset Date Comments Test Results 11/08/2023 Encounter Details Date Type Department Care Team (Late st Contact Info) Description 11/08/2023 Telephone Neurology [address] [place] [address] Services, Scheduling [address] [place] [address] Test Results Allergies Active Allergy Reactions Criticality Noted Date Comments Other Allergy (See Comments) Anaphylaxis High 06/21/2018 Bee stings- swelling documented as of this encounter (statuses as of 11/09/2023) Medications Medication Sig Dispensed Refills Start Date [...] Active Additional Information Patient not taking.Reported on 10/10/2023 Gabapentin 100 MG Oral Capsule (Neurontin)Indicati ons:Complaint [...] before bedtime. 180 Tablet 1 03/29/2023 Active Triamcinolone Acetonide 0.1 % External [...] and 1 Drop before bedtime. 07/10/2023 Active LORazepam 0.5 MG Oral Tablet (Ativan) [...] Emergency room. 2 Each 1 08/17/2023 Active Lactulose 10 GM/15ML Oral Solution (Constulose)Indicat ions:Hyperammonemia (HCC) Take 30 mL by mouth in the morning and 30 mL at noon and 30 mL in the evening and 30 mL before bedtime. 946 mL 10/16/2023 Active rifAXIMin 550 MG Oral Tablet (Xifaxan) take 1 tablet by mouth IN THE MORNING then take 1 tablet by mouth BEFORE BEDTIME 60 Tablet 10/23/2023 Active traMADol HCl 50 MG Oral Tablet (Ultram)Indications :Avascular necrosis of bone of left hip (HCC) Take 1 Tablet by mouth daily as needed for Pain, Severe. Not more than #15 per month due to liver condition 15 Tablet 11/02/2023 Active Hospital, Clinic, or Other Facility Administered Medication Ordered Dose Route Frequency Start Date End Date Status albuterol sulfate (PROVENTIL) (2.5 MG/3ML) 0.083% inhalation solution 2.5 mgIndications:SOB (shortness of breath) 2.5 mg NEBULIZER Q4H PRN 05/10/2018 Act guzman documented as of this encounter (statuses as of 11/09/2023) Active Problems Problem Noted Date Diagnosed Date [...] as of this encounter (statuses as of 11/09/2023) Resolved Problems Problem Noted Date Diagnosed Date Resolved Date History of alcohol abuse 05/22/2023 Alcohol dependence, uncomplicated 01/17/2023 05/22/2023 Avascular necrosis of bone of hip 05/10/2022 05/22/2023 Chronic alcohol abuse 06/17/20212023 Facial swelling 06/09/2017 08/07/2019 Urticaria 06/09/2017 08/07/2019 Intestinal obstruction 05/09/201203/02 CLASSICAL MIGRAINE WITHOU ME NTION OF INTRACTABLE MIGRAINE 11/29/2001 08/07/2019 Undiagnosed cardiac murmurs 11/29/2001 03/02/2017 Overview: Not [place] on 11/29/01 documented as of this encounter (statuses as of 11/09/2023) Immunizations Name Administration Dates Next Due HEP A - Hepatitis A (Adult > 18 yrs) 06/06/2020 Pneumococcal Conjugate Vacci ne, 20-valent ([id number]) 06/24/2022 Seasonal Influenza Virus Vac cine, Unspecified [...] money to get more. Never true 04/17/2023 Childcare Answer Date Recorded Do you feel overwhelmed with taking care of a child, family member or friend? No 04/17/2023 Does your family need help f inding childcare? (Household - for ages 0-17 years) Not on file 04/17/2023 Clothing Answer Date Recorded Have you been unable to get clothing when it was really needed? No 04/17/2023 Is your family able to get c lothes or diapers when needed? (Household - for ages 0-17 years) Not on file 04/17/2023 Personal Safety Answer Date Recorded Do you feel unsafe or have concerns for your saf ety? No 04/17/2023 Do you have concerns for you r family's safety? (Household - for ages 0-17 years) Not on file 04/17/2023 Utilities Answer Date Recorded Do you have trouble paying y our heating, water, or electric bill? No 04/17/2023 Is your family able to pay t he heat, water, or electric bill? (Household - for ages 0-17 years) Not on file 04/17/2023 Does your family have access to good internet? (Household - for ages 0-17 years) Not on file 04/17/2023 Employment Status Answer Date Recorded Are you unemployed or without regular income? No 04/17/2023 Does the household have a re gular source of income? (Household - for ages 0-17 years) Not on file 04/17/2023 Social Connections Answer Date Recorded How often do you feel lonely or isolated from th ose around you? Never 04/17/2023 Financial Resource Strain Answer Date R ecorded Do you have any trouble payi ng for your medications, or do you think you might in the future? No 04/17/2023 Does your family have troubl e paying for medicine? (Household - for ages 0-17 years) Not on file 04/17/2023 Transportation Needs Answer Date Record ed READ ONLY Do you have troubl e getting a ride to medical visits or work? Never True 04/17/2023 Does your family have a hard time getting a ride to doctors visits? (Household - for ages 0-17 years) Not on file 04/17/2023 Has lack of transportation k ept you from medical appointments, meetings, work, or from getting things needed for daily living? Check all that apply. (Adult - for ages 18 years and over) Not on file 04/17/2023 Do you (or your family) have trouble finding or paying for a ride (transportation)? (Household - for ages 0-17 years) Not on file 04/17/2023 Housing Stability Answer Date Recorded Do you currently live in a s helter or have no steady place to sleep at night? No 04/17/2023 READ ONLY Do you think you a re at risk of becoming homeless? No 04/17/2023 Does your family worry about paying for your home or becoming homeless? (Household - for ages 0-17 years) Not on file 0 04/17/2023 Are you homeless or worried that you might be in the future? (Adult - for ages 18 years and over) Not on file Are you (or your family) justen eless or worried that you might be in the future? (Household - for ages 0-17 years) Not on file Food Insecurity Answer Date Recorded Do you need food for this week? No 04/17/2023 Are you able to get enough f ood for your family? (Household - for ages 0-17 years) Not on file 04/17/2023 Does your family need food t his week? (Household - for ages 0-17 years) Not on file 04/17/2023 Do you always have enough fo od for your family? (Household - for ages 0-17 years) Not on file 04/17/2023 Education Answer Date Recorded What is the highest level of school you have completed or the highest degree you have received? 12th grade 10/10/2023 Sex and Gender Information Value Date Recorded [...] encounter Miscellaneous Notes * Telephone Encounter - Negar Apodaca OSA - 11/09/2023 10:42 AM EDT faxing * Telephone Encounter - Negar Apodaca OSA - 11/09/2023 10:39 AM EDT I do not see that it was read * Telephone Encounter - Neelima Mace OSA - 11/08/2023 2:07 PM EDT Neuroscience Phone Call Form- Requested Information from caller: Who is calling (not pt) name: Carmen relationship: Significant other Provider patient is established with: [facility] What is the concern or issue they are having: Patient's significant How long has the issue been going on: Patient's significant other stated the the patient's EEG results need to be sent to [facility] to Dr. Felix Meyers. Direct number is [phone] and nurse shayna [phone]. Patient is needing this information to prepare for surgery coming up. No date for surgery has been set. Any additional details to add: no Phone number for nurse to call back: Mauro Jaimes [phone] / Shayna [phone] Are forms needed? fax: [phone] Medication Refill? no Verify Pharmacy information is correct. Form to be used for established patients only (not new patients) Clinic has 24-48 hours to respond to caller. If caller is calling back before timeframe with any changes in condition/issues reported, update TEand re-route to appropriate pool If caller is calling back before timeframe- update TE- no need to re-route Ped Neurology Pool- [facility] Neuro Blasting Contract Miner- [id number] (All messages get sent to the [facility]) Neurology Pool Numbers- [place] and [place] patients - follow normal process Ops [place] [facility] [place] [id number] Ops req [place] Neurology ([place] [facility] [place] Only)- [id number] Neurosurgery Pool Numbers- [place] patients- follow normal process Ops req Neurosurgery [facility] [place] [id number] Ops req Neurosurgery [facility] ([place] Only) [id number] documented in this encounter Plan of Treatment Upcoming Encounters Date Type Department Care Team (Late st Contact Info) Description 11/21/2023 5:40 PM EDT Office Visit [facility] [address] [place] [phone] Toby Paz MD [address] [place] [address] 12/28/2023 3:40 PM EDT Office Visit Neurology [facility] [place] [address] [facility] [place] [address] Britni De La Cruz MD [address] [facility] [place] [address] Scheduled Procedures Name Priority Associated Diagnoses Date/Ti me COLONOSCOPY FLEXIBLE PROXIMAL DIAGNOSTIC Recall History of colon polyps Health Maintenance Due Date Last Done Comments Cologuard 2009 Fecal Occult Blood Test 2009 Sigmoidoscopy 2009 COVID-19 Vaccine (2022-24 season) 2022 Influenza Vaccine (FLU shot) (#1) 2023 12/08/2022, 12/14/2021, 05/04/2021, Additional history exists Depression Monitoring 04/17/2024 04/17/2023 Colonoscopy 06/30/2024 06/30/2021, 06/03, 05/30/2019, Additional history exists Colorectal Cancer Screening 06/30/2024 GFR 10/09/2024 10/10/2023, 07/12/2023, 09/06/2023, Additional history exists Albumin/Creatinine Ratio 07/09/2026 07/10/2023 Diabetes Screening 10/09/2026 10/10/2023, 0 09/06/2023, 08/11/2023, Additional history exists DTaP,Tdap,and Td Vaccines (2 - Td or Tdap) 02/15/2027 02/15/2017 Pneumococcal Vaccine: Pediatrics (0 to 5 Years) and At-Risk Patients (6 to 64 Years) Completed 06/24/2022 HPV (Gardasil) Vaccine Aged Out No lo nger eligible based on patient's age to complete this topic Hepatitis B Vaccine Discontinued MENINGOCOCCAL (MENACTRA/MENVEO) Aged Out No longer eligible based on patient's age to complete this topic Zoster Vaccines Discontinued documented as of this encounter Medical Devices Not on filedocumented as of this encounter Care Teams Apparatus Repair Mechanic Relationship Specialty Start Date End Date Rao Ochoa MD [address] [place] [address] PCP - General Internal Medicine 10/11/23 documented as of this encounter
--- OUTSIDE RECORDS SUMMARY | 2023-11-17 | External Medical Summary | Summary of Care ---
Author Name Unknown Organization [facility] Address [address] [place] [address] Phone [phone] Care Team Providers Care Fork Operator Name Role Phone aRo Ochoa MD Primary Care Provider [phone] Encounter Details Date Type Department Care Team (Late st Contact Info) Description 11/10/2023 Telephone [facility] [address] [place] [address] Rao Ochoa MD [address] [place] [address] Allergies Active Allergy Reactions Criticality Noted Date Comments Other Allergy (See Comments) Anaphylaxis High 06/21/2018 Bee stings- swelling documented as of this encounter (statuses as of 11/10/2023) Medications Medication Sig Dispensed Refills Start Date [...] as of this encounter (statuses as of 11/10/2023) Active Problems Problem Noted Date Diagnosed Date [...] as of this encounter (statuses as of 11/10/2023) Resolved Problems Problem Noted Date Diagnosed Date Resolved Date History of alcohol abuse 05/22/2023 Alcohol dependence, uncomplicated 01/17/2023 05/22/2023 Avascular necrosis of bone of hip 05/10/2022 05/22/2023 Chronic alcohol abuse 06/17/20212023 Facial swelling 06/09/2017 08/07/2019 Urticaria 06/09/2017 08/07/2019 Intestinal obstruction 05/09/201203/02 CLASSICAL MIGRAINE WITHOU ME NTION OF INTRACTABLE MIGRAINE 11/29/2001 08/07/2019 Undiagnosed cardiac murmurs 11/29/2001 03/02/2017 Overview: Not [place] on 11/29/01 documented as of this encounter (statuses as of 11/10/2023) Immunizations Name Administration Dates Next Due HEP A - Hepatitis A (Adult > 18 yrs) 06/06/2020 Pneumococcal Conjugate Vacci ne, 20-valent ([id number]) 06/24/2022 Seasonal Influenza Virus Vac cine, Unspecified [...] Telephone Encounter - Kay Chino OSA - 11/10/2023 2:30 PM EDT 11/10/23 Pt and came in for labs to be drawn. came to front office secretary with an attitude. PAR started to check pt in and ask who the provider was ordering the labs and pts stated the provider was from [place] and the orders were faxed on 11/08/23. Orders were rec in the lab. Orders were received, but NOT signed. Fur Weigher called [facility] asking for the orders to be refaxed and signed. Orders were received three hours later, but once again NOT signed. PAR relayed this message to the pts and she huffed and would not even let PAR explain what hadhappened; she told her let's go and just kept walking out the door. documented in this encounter Plan of Treatment Upcoming Encounters Date Type Department Care Team (Late st Contact Info) Description 11/21/2023 5:40 PM EDT Office Visit [facility] [address] [facility] [phone] Toby Paz MD [address] [facility] [place] [id number] 12/28/2023 3:40 PM EDT Office Visit Neurology [facility] [address] [facility] [place] [address] Britni De La Cruz MD [address] [facility] [place] [address] Scheduled Procedures Name Priority Associated Diagnoses Date/Ti me COLONOSCOPY FLEXIBLE PROXIMAL DIAGNOSTIC Recall History of colon polyps Health Maintenance Due Date Last Done Comments Cologuard 2009 Fecal Occult Blood Test 2009 Sigmoidoscopy 2009 COVID-19 Vaccine ( season) 2022 Influenza Vaccine (FLU shot) (#1) 2023 12/08/2022, 12/14/2021, 05/04/2021, Additional history exists Depression Monitoring 04/17/2024 04/17/2023 Colonoscopy 06/30/2024 06/30/2021, 06/03, 05/30/2019, Additional history exists Colorectal Cancer Screening 06/30/2024 GFR 10/09/2024 10/10/2023, 07/0 12/2023, 09/06/2023, Additional history exists Albumin/Creatinine Ratio 07/09/2026 [...] filedocumented as of this encounter Care Teams Fork Operator Relationship Specialty Start Date End Date Rao Ochoa MD [address] [place] [address] PCP - General Internal Medicine 10/11/23 documented as of this encounter
--- OUTSIDE RECORDS SUMMARY | 2023-11-17 | External Medical Summary | Summary of Care ---
Author Name Unknown Organization [facility] Address [address] [place] [facility] [place] [address] Phone [phone] Care Team Providers Care Wire Stitcher Operator Name Role Phone Rao Ochoa MD Primary Care Provider [phone] Reason for Visit * Reason Onset Date Comments EEG 11/10/2023 Encounter Details Date Type Department Care Team (Late st Contact Info) Description 11/10/[address] [facility] [place] [address] [facility] [place] [address] Britni De La Cruz MD [address] [place] [address] EEG Allergies Active Allergy Reactions Criticality Noted Date [...] Undiagnosed cardiac murmurs 11/29/2001 03/02/2017 Overview: Not [place] on 11/29/01 documented as of this encounter (statuses as of 11/10/2023) Immunizations Name Administration Dates Next Due HEP A - Hepatitis A (Adult > 18 yrs) 06/06/2020 Pneumococcal Conjugate Vacci ne, 20-valent ([id number]) 06/24/2022 Seasonal Influenza Virus Vac cine, Unspecified [...] encounter Miscellaneous Notes * Telephone Encounter - Britni De La Cruz MD - 11/10/2023 9:27 AM EDT EEG sl slow likely due to liver dysfunction documented in this encounter Plan of Treatment Upcoming Encounters Date Type Department Care Team (Late st Contact Info) Description 11/21/2023 5:40 PM EDT Office Visit [facility] [address] [place] [address] Toby Paz MD [address] [place] [address] 12/28/2023 3:40 PM EDT [facility] [address] [facility] [place] [address] Britni De La Cruz MD [address] [facility] [place] [address] Scheduled Procedures Name Priority Associated Diagnoses Date/Ti [...] Colorectal Cancer Screening 06/30/2024 GFR 10/09/2024 10/10/2023, 12/2023, 09/06/2023, Additional history exists Albumin/Creatinine Ratio [...] filedocumented as of this encounter Care Teams Wire Stitcher Operator Relationship Specialty Start Date End Date Rao Ochoa MD [address] [place] [address] PCP - General Internal Medicine 10/11/23 documented as of this encounter
--- OUTSIDE RECORDS SUMMARY | 2023-11-17 | External Medical Summary | Summary of Care ---
Author Name Unknown Organization [facility] Address [address] [place] [facility] [place] [address] Phone [phone] Care Team Providers Care Community Outreach Advocate Name Role Phone Rao Ochoa MD Primary Care Provider [phone] Reason for Visit * Reason Comments eRx-Medication Refill Encounter Details Date Type Department Care Team (Late st Contact Info) Description 11/10/2023 Refill [facility] [address] [place] [address] Toby Paz MD [address] [place] [address] Allergies Active Allergy Reactions Criticality Noted Date Comments Other Allergy (See Comments) Anaphylaxis High 06/21/2018 Bee stings- swelling documented as of this encounter (statuses as of 11/13/2023) Medications Medication Sig Dispensed Refills Start Date [...] as of this encounter (statuses as of 11/13/2023) Active Problems Problem Noted Date Diagnosed Date [...] as of this encounter (statuses as of 11/13/2023) Resolved Problems Problem Noted Date Diagnosed Date Resolved Date History of alcohol abuse 05/22/2023 Alcohol dependence, uncomplicated 01/17/2023 05/22/2023 Avascular necrosis of bone of hip 05/10/2022 05/22/2023 Chronic alcohol abuse 06/17/20212023 Facial swelling 06/09/2017 08/07/2019 Urticaria 06/09/2017 08/07/2019 Intestinal obstruction 05/09/201203/02 CLASSICAL MIGRAINE WITHOU ME NTION OF INTRACTABLE MIGRAINE 11/29/2001 08/07/2019 Undiagnosed cardiac murmurs 11/29/2001 03/02/2017 Overview: Not [place] on 11/29/01 documented as of this encounter (statuses as of 11/13/2023) Immunizations Name Administration Dates Next Due HEP A - Hepatitis A (Adult > 18 yrs) 06/06/2020 Pneumococcal Conjugate Vacci ne, 20-valent ([id number]) 06/24/2022 Seasonal Influenza Virus Vac cine, Unspecified [...] encounter Miscellaneous Notes * Telephone Encounter - Che Magana [facility] - 11/13/2023 8:58 AM EDTRefused Prescriptions: Disp Refills Furosemide 40 MG Oral Tablet (Lasix) 30 Tab*0 Sig: TAKE 1 TABLET BY MOUTH EVERY MORNINGRefused By: IMER MAGANAeason for Refusal: Refill Not Appropriate----- * Telephone Encounter - Interface, [facility] - 11/12/2023 10:58 AM EDT Pending Prescriptions: Disp Refills Furosemide 40 MG Oral Tablet [Pharmacy Med*30 Tab*0 Sig: TAKE 1TABLET BY MOUTH EVERY MORNING documented in this encounter Plan of Treatment Upcoming Encounters Date Type Department Care Team (Late st Contact Info) Description 11/21/2023 5:40 PM EDT Office Visit [facility] [address] [place] [address] Toby Paz MD [address] [place], [place] [phone] 12/28/2023 3:40 PM EDT Office Visit Neurology [facility] [place] [address] [facility] [place] [address] Britni De La Cruz MD [address] [facility] [place], [place] [address] Scheduled Procedures Name Priority Associated Diagnoses Date/Ti [...] filedocumented as of this encounter Care Teams Community Outreach Advocate Relationship Specialty Start Date End Date Rao Ochoa MD [address] [place] [address] PCP - General Internal Medicine 10/11/23 documented as of this encounter
--- OUTSIDE RECORDS SUMMARY | 2023-11-17 | External Medical Summary | Summary of Care ---
Author Name Unknown Organization [facility] Address [address] [facility] [place] [address] Phone [phone] Care Team Providers Care Mural Artist Name Role Phone Rao Ochoa MD Primary Care Provider [phone] Reason for Visit * Reason Comments EEG Encounter Details Date Type Department Care Team (Late st Contact Info) Description 10/27/2023 10:30 AM EDT NeuroDiagnostic Study Neurophysiology [facility] [address] [facility] [place] [address] Sp, Neurophys Tech [address] [facility] [place] [address] Allergies Active Allergy Reactions Criticality Noted Date [...] mouth BEFORE BEDTIME 60 Tablet 10/23/2023 Active Hospital, Clinic, or Other Facility Administered [...] ischemic heart disease 002 Overview: father had ND's in 40's Gastroesophageal reflux disease with esophagitis [...] Undiagnosed cardiac murmurs 11/29/2001 03/02/2017 Overview: Not [place] on 11/29/01 documented as of this encounter (statuses as of 11/09/2023) Immunizations Name Administration Dates Next Due HEP A - Hepatitis A (Adult > 18 yrs) 06/06/2020 Pneumococcal Conjugate Vacci ne, 20-valent ([id number]) 06/24/2022 Seasonal Influenza Virus Vac cine, Unspecified [...] as of this encounter Progress Notes * Dilip De Souza, DO - 11/09/2023 10:17 AM EDT ROUTINE EEG REPORT Name: Mauro Liu Date of study: 10/27/23, 10:32-11:02 Age: [age] year old Outpatient Referring Physician: Britni De La Curz MD TECHNICAL REMARKS: This is a technically satisfactory eighteen channel record employing 21 disc electrodes applied according to a measured international 10-20 electrode placement system. There were no significant technical difficulties. CLINICAL INFORMATION: A 58 year old male with memory loss. EEG performed for evaluation of epileptiform activity. MEDICATIONS: Current Outpatient Medications Medication Sig Dispense Refill [...] left hip (Patient not taking: Reported on 10/10/2023) 150 g 5 Gabapentin 100 MG Oral Capsule (Neurontin) [...] 1 Tablet before bedtime. 180 Tablet 1 Triamcinolone Acetonide 0.1 % External Cream (Aristocort) Apply topically to affected area 2 times a day. To affected area. (Patient not taking: Reported on 09/18/2023) 60 g 5 FLUoxetine HCl 10 MG [...] before bedtime. (Patient not taking: Reported on09/18/2023) LORazepam 0.5 MG Oral Tablet (Ativan) Take [...] to the Emergency room. 2 Each 1 Lactulose 10 GM/15ML Oral Solution (Constulose) Take 30 mL by mouth in the morning and 30 mL at noon and 30 mL in the evening and 30 mL before bedtime. 946 mL 0 rifAXIMin 550 MG Oral Tablet (Xifaxan) take 1 tablet by mouth IN THE MORNING then take 1 tablet by mouth BEFORE BEDTIME 60 Tablet 0 traMADol HCl 50 MG Oral Tablet (Ultram) Take 1 Tablet by mouth daily as needed for Pain, Severe. Not more than #15 per month due to liver condition 15 Tablet 0 Current Facility-Administered Medications Medication Dose Route Frequency Provider Last Rate Last Admin albuterol sulfate (PROVENTIL) (2.5 MG/3ML) 0.083% inhalation solution 2.5 mg 2.5 mg Nebulizer Q4H PRN Toby Paz MD 2.5 mg at 05/10/18 1241 REPORT: At the onset of the EEG, the patient is awake. The background is symmetric and continuous. The posterior dominant rhythm is 7-8 Hz with low amplitude indeterminate faster frequencies in the frontal head region. There is a lot of superimposed myogenic or muscle artifact throughout this study. Drowsiness is characterized by reduced myogenic artifact, reduced blink rate, and increased theta activity. No stage 2 sleep transients are seen. Photic stimulation does not induce any abnormalities. No electrographic seizures or epileptiform discharges are seen. IMPRESSION: This is an abnormal awake and drowsy routine EEG due to mild background slowing suggestive of a mild nonspecific encephalopathy. There is no evidence of epileptiform activity. Dilip De Souza DO documented in this encounter Plan of Treatment Upcoming Encounters Date Type Department Care Team (Late st Contact Info) Description 11/21/2023 5:40 PM EDT Office Visit [facility] [address] [place] [facility] [place] [address] Toby Paz MD [address] [place] [address] 12/28/2023 3:40 PM EDT Office Visit Neurology [facility] [address] [facility] [place] [address] Britni De La Cruz MD [address] [facility] [place] [address] Scheduled Orders Name Type Priority Associated Diagnoses Orde r Schedule EEG ROUTINE Procedures Routine Memory loss Ordered: 10/10/2023 Scheduled Procedures Name Priority Associated Diagnoses Date/Ti [...] as of this encounter Visit Diagnoses Diagnosis Memory loss [R41.3]- Primary Memory loss documented in this encounter Care Teams Mural Artist Relationship Specialty Start Date End Date Rao Ochoa MD [address] [place] [address] PCP - General Internal Medicine 10/11/23 documented as of this encounter
--- OUTSIDE RECORDS SUMMARY | 2023-11-17 | External Medical Summary | Summary of Care ---
Author Name Unknown Organization [facility] Address [address] [place] [address] Phone [phone] Care Team Providers Care Hairspring I Inspector Name Role Phone Rao Ochoa MD Primary Care Provider [phone] Reason for Visit * Reason Onset Date Comments Test Results 11/08/2023 Encounter Details Date Type Department Care Team (Late st Contact Info) Description 11/08/2023 Telephone [address]rology [address] [place] [address] Services, Scheduling [address] [place] [address] Test Results Allergies Active Allergy Reactions Criticality [...] Undiagnosed cardiac murmurs 11/29/2001 03/02/2017 Overview: Not [place] on 11/29/01 documented as of this encounter (statuses as of 11/09/2023) Immunizations Name Administration Dates Next Due HEP A - Hepatitis A (Adult > 18 yrs) 06/06/2020 Pneumococcal Conjugate Vacci ne, 20-valent ([id number]) 06/24/2022 Seasonal Influenza Virus Vac cine, Unspecified [...] EEG results need to be sent to [facility] to Dr. Felix Meyers. Direct number is [phone] and nurse shayna [phone]. Patient is needing this information to prepare for surgery coming up. No date for surgery has been set. Any additional details to add: no Phone number for nurse to call back: Mauro Jaimes [phone] / Shayna [phone] Are forms needed? fax: [phone] Medication Refill? no Verify Pharmacy information is correct. Form to be used for established patients only (not new patients) Clinic has 24-48 hours to respond to caller. If caller is calling back before timeframe with any changes in condition/issues reported, update TEand re-route to appropriate pool If caller is calling back before timeframe- update TE- no need to re-route Peds Neurology Pool- [facility] Neuro Priddy- [id number] (All messages get sent to the [facility]) Neurology Pool Numbers- [place] and [place] patients - follow normal process Ops req [facility] Neurology ([place])- [id number] Ops req NE Neurology ([place]- [facility] and [facility] clinics Only)- [id number] Neurosurgery Pool Numbers- [place] patients- follow normal process Ops req Neurosurgery [facility] ([place])- [id number] Ops req Neurosurgery [facility] ([place] Only) [id number] documented in this encounter Plan of Treatment Upcoming Encounters Date Type Department Care Team (Late st Contact Info) Description 11/21/2023 5:40 PM EDT Office Visit [facility] [address] [place] [phone] Toby Paz MD [address] [place] [address] 12/28/2023 3:40 PM EDT Office Visit Neurology [facility] [address] [place] [address] Britni De La Cruz MD [address] [place] [address] Scheduled Procedures Name Priority Associated Diagnoses Date/Ti [...] filedocumented as of this encounter Care Teams Hairspring I Inspector Relationship Specialty Start Date End Date Rao Ochoa MD [address] [place] [address] PCP - General Internal Medicine 10/11/23 documented as of this encounter
--- OUTSIDE RECORDS SUMMARY | 2023-11-17 | External Medical Summary | Summary of Care ---
Author Name Unknown Organization [facility] Address [address] [facility] [place] [address] Phone [phone] Care Team Providers Care Supervisor [place]rimp [place]ond Name Role Phone Rao Ochoa MD Primary Care Provider [phone] Reason for Visit * Reason Onset Date Comments EEG 11/10/2023 Encounter Details Date Type Department Care Team (Late st Contact Info) Description 11/10/2023 Telephone Neurology [facility] [place] [address] [facility] [place] [address] Britni De La Cruz MD [address] [place] [address] EEG Allergies Active Allergy Reactions Criticality Noted [...] ischemic heart disease 002 Overview: father had NC's in 40's Gastroesophageal reflux disease with esophagitis [...] Undiagnosed cardiac murmurs 11/29/2001 03/02/2017 Overview: Not [place] on 11/29/01 documented as of this encounter (statuses as of 11/10/2023) Immunizations Name Administration Dates Next Due HEP A - Hepatitis A (Adult > 18 yrs) 06/06/2020 Pneumococcal Conjugate Vacci ne, 20-valent ([id number]) 06/24/2022 Seasonal Influenza Virus Vac cine, Unspecified [...] Description 11/21/2023 5:40 PM EDT Office Visit [facility] [address] [place] [address] Toby Paz MD [address] [place] [address] 12/28/2023 3:40 PM EDT [facility] [address] [facility] [place] [address] Britni De La Cruz MD [address] [facility] [place] [address] Scheduled Procedures Name Priority Associated Diagnoses Date/Ti [...] filedocumented as of this encounter Care Teams Supervisor [place] Relationship Specialty Start Date End Date aRo Ochoa MD [address] [place] [address] PCP - General Internal Medicine 10/11/23 documented as of this encounter
--- OUTSIDE RECORDS SUMMARY | 2023-11-17 | External Medical Summary | Summary of Care ---
Author Name Unknown Organization [facility] Address [address] [place] [address] Phone [phone] Care Team Providers Care Manipulator Operator Name Role Phone Rao Ochoa MD Primary Care Provider [phone] Reason for Visit * Reason Onset Date Comments Test Results 11/08/2023 Encounter Details Date Type Department Care Team (Late st Contact Info) Description 11/08/2023 Telephone Neurology [address] [place] [address] Services, Scheduling [address] [place] [address] Test Results Allergies Active Allergy Reactions Criticality [...] Undiagnosed cardiac murmurs 11/29/2001 03/02/2017 Overview: Not [place] on 11/29/01 documented as of this encounter (statuses as of 11/09/2023) Immunizations Name Administration Dates Next Due HEP A - Hepatitis A (Adult > 18 yrs) 06/06/2020 Pneumococcal Conjugate Vacci ne, 20-valent ([id number]) 06/24/2022 Seasonal Influenza Virus Vac cine, Unspecified [...] encounter Miscellaneous Notes * Telephone Encounter - Neelima Mace OSA [...] EEG results need to be sent to [facility] to Dr. Felix Meyers. Direct number is [phone] and nurse shayna [phone]. Patient is needing this information to prepare for surgery coming up. No date for surgery has been set. Any additional details to add: no Phone number for nurse to call back: Mauro Jaimes [phone] / Shayna [phone] Are forms needed? fax: [phone] Medication Refill? no Verify Pharmacy information is correct. Form to be used for established patients only (not new patients) Clinic has 24-48 hours to respond to caller. If caller is calling back before timeframe with any changes in condition/issues reported, update TEand re-route to appropriate pool If caller is calling back before timeframe- update TE- no need to re-route Peds Neurology Pool- [facility] Neuro Core Microarchitect- [id number] (All messages get sent to the [facility]) Neurology Pool Numbers- [place] and [facility] patients - follow normal process Ops req [facility] Neurology ([place])- [id number] Ops req NE Neurology ([place]- [facility] and [facility] clinics Only)- [id number] Neurosurgery Pool Numbers- [place] patients- follow normal process Ops req Neurosurgery [facility] ([place])- [id number] Ops req Neurosurgery [facility] ([place] Only) [id number] documented in this encounter Plan of Treatment Upcoming Encounters Date Type Department Care Team (Late st Contact Info) Description 11/21/2023 5:40 PM EDT Office Visit [facility] [address] [place] [address] Toby Paz MD [address] [place], [place] [id number] 12/28/2023 3:40 PM EDT Office Visit Neurology [facility] [place] [address] [facility] [place] [address] Britni De La Cruz MD [address] [facility] [place] [address] Scheduled Procedures Name Priority Associated Diagnoses Date/Ti [...] filedocumented as of this encounter Care Teams Manipulator Operator Relationship Specialty Start Date End Date Rao Ochoa MD [address] [place] [address] PCP - General Internal Medicine 10/11/23 documented as of this encounter
--- OUTSIDE RECORDS SUMMARY | 2023-11-17 00:01 | External Medical Summary | Summary of Care ---
Author Name Unknown Organization [facility] Address [address] [facility] [address] Phone [phone] Care Team Providers Care Computer Teacher Name Role Phone Rao Ochoa MD Primary Care Provider [phone] Encounter Details Date Type Department Care Team (Late st Contact Info) Description 10/06/2023 Telephone [facility] [address] [place] [address] Toby Paz MD [address] [place] [address] Allergies Active Allergy Reactions Criticality Noted Date Comments Other Allergy (See Comments) Anaphylaxis High 06/21/2018 Bee stings- swelling documented as of this encounter (statuses as of 11/06/2023) Medications Medication Sig Dispensed Refills Start Date [...] as of this encounter (statuses as of 11/06/2023) Active Problems Problem Noted Date Diagnosed Date [...] as of this encounter (statuses as of 11/06/2023) Resolved Problems Problem Noted Date Diagnosed Date Resolved Date History of alcohol abuse 05/22/2023 Alcohol dependence, uncomplicated 01/17/2023 05/22/2023 Avascular necrosis of bone of hip 05/10/2022 05/22/2023 Chronic alcohol abuse 06/17/20212023 Facial swelling 06/09/2017 08/07/2019 Urticaria 06/09/2017 08/07/2019 Intestinal obstruction 05/09/201203/02 CLASSICAL MIGRAINE WITHOU ME NTION OF INTRACTABLE MIGRAINE 11/29/2001 08/07/2019 Undiagnosed cardiac murmurs 11/29/2001 03/02/2017 Overview: Not [place] on 11/29/01 documented as of this encounter (statuses as of 11/06/2023) Immunizations Name Administration Dates Next Due HEP A - Hepatitis A (Adult > 18 yrs) 06/06/2020 Pneumococcal Conjugate Vacci ne, 20-valent ([id number]) 06/24/2022 Seasonal Influenza Virus Vac cine, Unspecified [...] on file Are you (or your family) jutsen eless or worried that you might be [...] ages 0-17 years) Not on file 04/17/2023 Sex and Gender Information Value Date [...] Telephone Encounter - Kay Chino OSA - 10/06/2023 12:16 PM EDT 10/06/23 Rec lab results for pt from [facility]. Sent to [facility] Placed in provider's mail bin today. documented in this encounter Plan of Treatment Upcoming Encounters Date Type Department Care Team (Late st Contact Info) Description 11/21/2023 5:40 PM EDT Office Visit [facility] [address] [place] [address] Toby Paz MD [address] [place] [address] 12/28/2023 3:40 PM EDT Office Visit Neurology [facility] [address] [facility] [place] [address] Britni De La Cruz MD [address] [facility] [place] [address] Scheduled Procedures Name Priority Associated Diagnoses Date/Ti me COLONOSCOPY FLEXIBLE PROXIMAL DIAGNOSTIC Recall History of colon polyps Health Maintenance Due Date Last Done Comments Cologuard 2009 Fecal Occult Blood Test 2009 Sigmoidoscopy 2009 COVID-19 Vaccine ( season) 2022 Influenza Vaccine (FLU shot) (#1) 2023 12/08/2022, 12/14/2021, 05/04/2021, Additional history exists Depression Monitoring 04/17/2024 04/17/2023 Colonoscopy 06/30/2024 06/30/2021, 03/, 05/30/2019, Additional history exists Colorectal Cancer Screening [...] filedocumented as of this encounter Care Teams Computer Teacher Relationship Specialty Start Date End Date Rao Ochoa MD [address] [place] [address] PCP - General Internal Medicine 10/11/23 documented as of this encounter
--- OUTSIDE RECORDS SUMMARY | 2023-11-17 00:01 | External Medical Summary | Summary of Care ---
Author Name Unknown Organization [facility] Address [address] [place] [facility] [place] [address] Phone [phone] Care Team Providers Care Powerhouse Tender Name Role Phone Rao Ochoa MD Primary Care Provider [phone] Reason for Visit * Reason Onset Date Comments Medication Refill 11/02/2023 Encounter Details Date Type Department Care Team (Late st Contact Info) Description 11/02/[address] [facility] [address] [place] [address] Toby Paz MD [address] [place] [address] Primary insomnia Allergies Active Allergy Reactions Criticality Noted Date Comments Other Allergy (See Comments) Anaphylaxis High 06/21/2018 Bee stings- swelling documented as of this encounter (statuses as of 11/02/2023) Medications Medication Sig Dispensed Refills Start Date [...] as of this encounter (statuses as of 11/02/2023) Active Problems Problem Noted Date Diagnosed Date [...] ischemic heart disease 002 Overview: father had SC's in 40's Gastroesophageal reflux disease with esophagitis documented as of this encounter (statuses as of 11/02/2023) Resolved Problems Problem Noted Date Diagnosed Date Resolved Date History of alcohol abuse 05/22/2023 Alcohol dependence, uncomplicated 01/17/2023 05/22/2023 Avascular necrosis of bone of hip 05/10/2022 05/22/2023 Chronic alcohol abuse 06/17/20212023 Facial swelling 06/09/2017 08/07/2019 Urticaria 06/09/2017 08/07/2019 Intestinal obstruction 05/09/201203/02 CLASSICAL MIGRAINE WITHOU ME NTION OF INTRACTABLE MIGRAINE 11/29/2001 08/07/2019 Undiagnosed cardiac murmurs 11/29/2001 03/02/2017 Overview: Not [place] on 11/29/01 documented as of this encounter (statuses as of 11/02/2023) Immunizations Name Administration Dates Next Due HEP A - Hepatitis A (Adult > 18 yrs) 06/06/2020 Pneumococcal Conjugate Vacci ne, 20-valent ([id number]) 06/24/2022 Seasonal Influenza Virus Vac cine, Unspecified [...] encounter Miscellaneous Notes * Telephone Encounter - Laila Duncan saurav - 11/02/2023 3:34 PM EDTRefused Prescriptions: Disp Refills traZODone HCl 50 MG Oral Tablet (Desyrel) 180 Ta*3 Sig: Take 2 Tablets by mouth at bedtime.Refused By: LAILA DUNCAN for Refusal: Too soon documented in this encounter Plan of Treatment Upcoming Encounters Date Type Department Care Team (Late st Contact Info) Description 11/21/2023 5:40 PM EDT Office Visit [facility] [address] [place] [facility] [place] [address] Toby Paz MD [address] [facility] [place] [id number] 12/28/2023 3:40 PM EDT Office Visit Neurology [facility] [place] [address] [place] [address] Britni De La Cruz MD [address] [place] [address] Scheduled Procedures Name Priority Associated Diagnoses Date/Ti [...] or maintaining sleep documented in this encounter Care Teams Powerhouse Tender Relationship Specialty Start Date End Date Rao Ochoa MD [address] [place] [address] PCP - General Internal Medicine 10/11/23 documented as of this encounter
--- OUTSIDE RECORDS SUMMARY | 2023-11-17 00:01 | External Medical Summary | Summary of Care ---
Author Name Unknown Organization [facility] Address [address] [place] [address] Phone [phone] Care Team Providers Care In School Suspension Aide Name Role Phone Georgia Ochoa MD Primary Care Provider [phone] Reason for Visit * Reason Comments eRx-Medication Refill Encounter Details Date Type Department Care Team (Late st Contact Info) Description 10/22/2023 Refill [facility] [address] [place] [address] Toby Paz MD [address] [place] [address] Allergies Active Allergy Reactions Criticality Noted Date Comments Other Allergy (See Comments) Anaphylaxis High 06/21/2018 Bee stings- swelling documented as of this encounter (statuses as of 10/23/2023) Medications Medication Sig Dispensed Refills Start Date End Date Status Iron (Ferrous Sulfate) 325 (65 Fe) MG Oral Tablet Take by mouth. Active Atorvastatin Calcium 20 MG Oral Tablet (Lipitor)Indicat ions:Dyslipidemi a Take 1 Tablet by mouth in the morning. 90 Tablet 1 03/29/2023 Active Diclofenac Sodium 1 % External Gel (Voltaren) Apply topically to affected area 2 times a day. Apply to area lateral to left hip 150 g 5 03/29/2023 Active Additional Information Patient not taking.Reported on 10/10/2023 Gabapentin 100 MG Oral Capsule (Neurontin)Indic ations:Complaint [...] Emergency room. 2 Each 1 08/17/2023 Active traMADol HCl 50 MG Oral Tablet (Ultram)Indicati ons:Avascular necrosis of bone of left hip (HCC) Take 1 Tablet by mouth 2 times a day as needed for Pain, Severe. 30 Tablet 10/02/2023 Active Lactulose 10 GM/15ML Oral Solution (Constulose)Kaylin [...] mouth BEFORE BEDTIME 60 Tablet 10/23/2023 Active rifAXIMin 550 MG Oral Tablet (Xifaxan) take 1 tablet by mouth IN THE MORNING then take 1 tablet by mouth BEFORE BEDTIME 60 Tablet 2 03/29/2023 4 Discontinued Hospital, Clinic, or Other Facility Administered Medication Ordered Dose Route Frequency Start Date End Date Status albuterol sulfate (PROVENTIL) (2.5 MG/3ML) 0.083% inhalation solution 2.5 mgIndications:SOB (shortness of breath) 2.5 mg NEBULIZER Q4H PRN 05/10/2018 Act guzman documented as of this encounter (statuses as of 10/23/2023) Active Problems Problem Noted Date Diagnosed Date [...] as of this encounter (statuses as of 10/23/2023) Resolved Problems Problem Noted Date Diagnosed Date Resolved Date History of alcohol abuse 05/22/2023 Alcohol dependence, uncomplicated 01/17/2023 05/22/2023 Avascular necrosis of bone of hip 05/10/2022 05/22/2023 Chronic alcohol abuse 06/17/20212023 Facial swelling 06/09/2017 08/07/2019 Urticaria 06/09/2017 08/07/2019 Intestinal obstruction 05/09/201203/02 CLASSICAL MIGRAINE WITHOU ME NTION OF INTRACTABLE MIGRAINE 11/29/2001 08/07/2019 Undiagnosed cardiac murmurs 11/29/2001 03/02/2017 Overview: Not [place] on 11/29/01 documented as of this encounter (statuses as of 10/23/2023) Immunizations Name Administration Dates Next Due HEP A - Hepatitis A (Adult > 18 yrs) 06/06/2020 Pneumococcal Conjugate Vacci ne, 20-valent ([id number]) 06/24/2022 Seasonal Influenza Virus Vac cine, Unspecified [...] encounter Miscellaneous Notes * Telephone Encounter - Georgia Ochoa MD - 10/23/2023 8:17 AM EDTSigned Prescriptions: Disp Refills rifAXIMin 550 MG Oral Tablet (Xifaxan) 60 Tab*0 Sig: take 1 tablet by mouth IN THE MORNING then take 1 tablet by mouth BEFORE BEDTIME Authorizing Provider: GEORGIA OCHOA * Telephone Encounter - Tata Lopez LPN - 10/23/2023 7:29 AM EDTPending Prescriptions: Disp Refills Xifaxan 550 MG Oral Tablet [Pharmacy Med N*60 Tab*0 Sig: take 1 tablet by mouth IN THE MORNING then take 1 tablet by mouth BEFORE BEDTIME * Telephone Encounter - Daljit Atkinson - 10/22/2023 1:07 PM EDTPending Prescriptions: Disp Refills Xifaxan 550 MG Oral Tablet [Pharmacy Med N*60 Tab*0 Sig: take 1tablet by mouth IN THE MORNING then take 1 tablet by mouth BEFORE BEDTIME documented in this encounter Plan of Treatment Upcoming Encounters Date Type Department Care Team (Late st Contact Info) Description 10/27/2023 10:30 AM EDT NeuroDiagnostic Study Neurophysiology [facility] [place] [address] [place] [address] Sp, Neurophys Tech [address] 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
--- OUTSIDE RECORDS SUMMARY | 2023-11-17 00:01 | External Medical Summary | Summary of Care ---
Author Name Unknown Organization [facility] Address [address] [place] [facility] [place] [place] [address] Phone [phone] Care Team Providers Care Technical Sales Associate Name Role Phone Georgia Ochoa MD Primary Care Provider [phone] Reason for Visit * Reason Onset Date Comments Medication Refill 10/31/2023 Encounter Details Date Type Department Care Team (Late st Contact Info) Description 10/31/[address] [facility] [address] [place] [address] Toby Paz MD [address] [place] [address] Avascular necrosis of bone of [...] on 10/10/2023 Gabapentin 100 MG Oral Capsule (Neurontin)Indica tions:Complaint [...] 08/17/2023 Active Lactulose 10 GM/15ML Oral Solution (Constulose)Indic [...] to liver condition 15 Tablet 11/02/2023 Active traMADol HCl 50 MG Oral Tablet (Ultram)Indicatio ns:Avascular necrosis of bone of left hip (HCC) Take 1 Tablet by mouth 2 times a day as needed for Pain, Severe. 30 Tablet 10/02/2023 4 Discontinue d(Refill) Hospital, Clinic, or Other [...] Undiagnosed cardiac murmurs 11/29/2001 03/02/2017 Overview: Not [place] on 11/29/01 documented as of this encounter (statuses as of 11/02/2023) Immunizations Name Administration Dates Next Due HEP A - Hepatitis A (Adult > 18 yrs) 06/06/2020 Pneumococcal Conjugate Vacci ne, 20-valent ([id number]) 06/24/2022 Seasonal Influenza Virus Vac cine, Unspecified [...] Telephone Encounter - Georgia Ochoa MD - 11/02/2023 9:24 AM EDTSigned Prescriptions: Disp Refills traMADol HCl 50 MG Oral Tablet (Ultram) 15 Tab*0 Sig: Take 1 Tablet by mouth daily as needed for Pain, Severe. Not more than #15 per month due to liver condition Authorizing Provider: GEORGIA OCHOA * Telephone Encounter - Duncan Kim [facility] - 11/01/2023 12:39 PM EDT Pending Prescriptions: Disp Refills traMADol HCl 50 MG Oral Tablet (Ultram) 30 Tab*0 Sig: Take 1 Tablet by mouth 2 times a day as needed for Pain, Severe. * Telephone Encounter - Duncan Kim [facility] - 11/01/2023 12:37 PM EDT I have reviewed the patients controlled substance dispensing history in the Prescription Drug Monitoring Program in compliance with the [facility] regulations before prescribing a controlled substance. PDMP checked on 11/01/2023. Pending Prescriptions: Disp Refills traMADol HCl 50 MG Oral Tablet (Ultram) 30 Tab*0 Sig: Take 1 Tablet by mouth 2 times a day as needed for Pain, Severe. Last Visit: 09/18/2023 (in office), Visit date not found (telemedicine) Next Visit: 11/21/2023 Date medication was last filled: 08/15 Date medication is due for refill: 08/25 Pharmacy: [id number] [address] [facility] Is this request for a controlled [...] Results Review. Please approve if appropriate. Thanks, Duncan Kim, PharmD Clinical Pharmacist [facility] ([facility]) [phone] 11/01/2023,12:38 PM documented in this encounter Plan of Treatment Upcoming Encounters Date Type Department Care Team (Late st Contact Info) Description 11/21/2023 5:40 PM EDT Office Visit [facility] [address] [place] [address] Toby Paz MD [address] [place] [address] 12/28/2023 3:40 PM EDT Office Visit Neurology [facility] [address] [place] [address] Britni De La Cruz MD [address] [place] [address] Scheduled Procedures Name Priority Associated Diagnoses Date/Ti me COLONOSCOPY FLEXIBLE PROXIMAL DIAGNOSTIC Recall History of colon polyps Health Maintenance Due Date Last Done Comments Cologuard 2009 Fecal Occult Blood Test 2009 Sigmoidoscopy 2009 COVID-19 Vaccine ( season) 2022 Influenza Vaccine (FLU shot) (#1) 2023 12/08/2022, 12/14/2021, 05/04/2021, Additional history exists Depression Monitoring 04/17/2024 04/17/2023 Colonoscopy 06/30/2024 06/30/2021, /, 05/30/2019, Additional history exists Colorectal Cancer Screening [...] necrosis of bone of left hip (HCC) documented in this encounter Care Teams Technical Sales Associate Relationship Specialty Start Date End Date Georgia Ochoa MD [address] [place] [address] PCP - General Internal Medicine 10/11/23 documented as of this encounter
--- OUTSIDE RECORDS SUMMARY | 2023-11-17 00:01 | External Medical Summary | Summary of Care ---
Author Name Unknown Organization [facility] Address [address] [facility] [place] [address] Phone [phone] Care Team Providers Care Oil And Gas Well Treatment Operator Name Role Phone Rao Ochoa MD Primary Care Provider [phone] Reason for Visit * Reason Onset Date Comments Medication Refill 10/26/2023 Encounter Details Date Type Department Care Team (Late st Contact Info) Description 10/26/2023 Refill [facility] [address] [place] [address] Toby Paz MD [address] [place] [address] Allergies Active Allergy Reactions Criticality Noted Date Comments Other Allergy (See Comments) Anaphylaxis High 06/21/2018 Bee stings- swelling documented as of this encounter (statuses as of 10/26/2023) Medications Medication Sig Dispensed Refills Start Date [...] 10/02/2023 Active Lactulose 10 GM/15ML Oral Solution (Constulose)Indicat [...] as of this encounter (statuses as of 10/26/2023) Active Problems Problem Noted Date Diagnosed Date [...] as of this encounter (statuses as of 10/26/2023) Resolved Problems Problem Noted Date Diagnosed Date Resolved Date History of alcohol abuse 05/22/2023 Alcohol dependence, uncomplicated 01/17/2023 05/22/2023 Avascular necrosis of bone of hip 05/10/2022 05/22/2023 Chronic alcohol abuse 06/17/20212023 Facial swelling 06/09/2017 08/07/2019 Urticaria 06/09/2017 08/07/2019 Intestinal obstruction 05/09/201203/02 CLASSICAL MIGRAINE WITHOU ME NTION OF INTRACTABLE MIGRAINE 11/29/2001 08/07/2019 Undiagnosed cardiac murmurs 11/29/2001 03/02/2017 Overview: Not [place] on 11/29/01 documented as of this encounter (statuses as of 10/26/2023) Immunizations Name Administration Dates Next Due HEP A - Hepatitis A (Adult > 18 yrs) 06/06/2020 Pneumococcal Conjugate Vacci ne, 20-valent ([id number]) 06/24/2022 Seasonal Influenza Virus Vac cine, Unspecified [...] Notes * Telephone Encounter - Russ Connolly [facility] - 10/26/2023 1:29 PM EDT Refused Prescriptions: Disp Refills rifAXIMin 550 MG Oral Tablet (Xifaxan) 60 Tab*0 Sig: take 1 tablet by mouth IN THE MORNING then take 1 tablet by mouth BEFORE BEDTIMERefused By: [facility] Too soon documented in this encounter Plan of Treatment Upcoming Encounters Date Type Department Care Team (Late st Contact Info) Description 10/27/2023 10:30 AM EDT NeuroDiagnostic Study Neurophysiology Ramandeep [address] [place] [address] [place] [address] Sp, Neurophys Tech [address] [place] [address] 11/21/2023 5:40 PM EDT Office Visit [facility] [address] [facility] [place] [address] Toby Paz MD [address] [place] [address] 12/28/2023 3:40 PM EDT Office Visit Neurology [employer] [address] [facility] [place] [address] Britni De La Cruz MD 200 [facility] [place] [address] Scheduled Procedures Name Priority Associated Diagnoses Date/Ti [...] filedocumented as of this encounter Care Teams Oil And Gas Well Treatment Operator Relationship Specialty Start Date End Date Rao Ochoa MD [address] [place] [address] PCP - General Internal Medicine 10/11/23 documented as of this encounter
--- OUTSIDE RECORDS SUMMARY | 2023-11-17 00:02 | External Medical Summary | Summary of Care ---
Author Name Unknown Organization [facility] Address [address] [place] [place] [address] Phone [phone] Care Team Providers Care Machine Adjuster Leader Case Trim Name Role Phone Rao Ochoa MD Primary Care Provider [phone] Reason for Visit * Reason Onset Date Comments Test Results 10/12/2023 Encounter Details Date Type Department Care Team (Late st Contact Info) Description 10/12/2023 Telephone Neurology [facility] [place] [address] [facility] [place] [address] Britni De La Cruz MD [address] [place] [address] Test Results Allergies Active Allergy Reactions Criticality Noted Date Comments Other Allergy (See Comments) Anaphylaxis High 06/21/2018 Bee stings- swelling documented as of this encounter (statuses as of 10/12/2023) Medications Medication Sig Dispensed Refills Start Date [...] Additional Information Patient not taking.Reported on 10/10/2023 Lactulose 10 GM/15ML Oral Solution (Constulose)Indicat ions:Hyperammonemia [...] for Pain, Severe. 30 Tablet 10/02/2023 Active Hospital, Clinic, or Other Facility Administered Medication Ordered Dose Route Frequency Start Date End Date Status albuterol sulfate (PROVENTIL) (2.5 MG/3ML) 0.083% inhalation solution 2.5 mgIndications:SOB (shortness of breath) 2.5 mg NEBULIZER Q4H PRN 05/10/2018 Act guzman documented as of this encounter (statuses as of 10/12/2023) Active Problems Problem Noted Date Diagnosed Date [...] as of this encounter (statuses as of 10/12/2023) Resolved Problems Problem Noted Date Diagnosed Date Resolved Date History of alcohol abuse 05/22/2023 Alcohol dependence, uncomplicated 01/17/2023 05/22/2023 Avascular necrosis of bone of hip 05/10/2022 05/22/2023 Chronic alcohol abuse 06/17/20212023 Facial swelling 06/09/2017 08/07/2019 Urticaria 06/09/2017 08/07/2019 Intestinal obstruction 05/09/201203/02 CLASSICAL MIGRAINE WITHOU ME NTION OF INTRACTABLE MIGRAINE 11/29/2001 08/07/2019 Undiagnosed cardiac murmurs 11/29/2001 03/02/2017 Overview: Not [place] on 11/29/01 documented as of this encounter (statuses as of 10/12/2023) Immunizations Name Administration Dates Next Due HEP A - Hepatitis A (Adult > 18 yrs) 06/06/2020 Pneumococcal Conjugate Vacci ne, 20-valent ([id number]) 06/24/2022 Seasonal Influenza Virus Vac cine, Unspecified [...] encounter Miscellaneous Notes * Telephone Encounter - Yari Aaron LPN - 10/12/2023 9:06 AM EDT Attempted to call both listed numbers, both of which are not in working order. * Telephone Encounter - Britni De La Cruz MD - 10/12/2023 8:40 AM EDT Call (if you can get a zctive phone number); bw nl except proteins are out of whack-likely due to liver ds; liver specialist needs to see the results documented in this encounter Plan of Treatment Upcoming Encounters Date Type Department Care Team (Latest Contact Info) Description 4 2:00 PM EDT NeuroDiagnostic Study Neurophysiolog y Ramandeep [place] [address] [place] [address] Sp, Neurophys Tech [address] [place] [address] 4 5:40 PM EDT [facility] [address] [facility] [address] Toby Paz MD [address] [facility] [address] 4 1:04 PM EDT Hospital Encounter OR [facility], Operating Room, [facility] - 4th Floor [address] [facility] [place] [address] Ki Huang MD [address] [place] [address] 4 1:04 PM EDT - 4 1:54 PM EDT Surgery OR [facility], Operating Room, [facility] - 4th Floor [address] [facility] [place] [address] Ki Huang MD [address] [place] [address] ESOPHAGOGASTRODUODENOSCOPY (EGD), FLEXIBLE, TRANSORAL, DIAGNOSTIC 4 3:40 PM EDT Office Visit Neurology [facility] [address] [facility] [place] [address] Britni De La Cruz MD 200 [place] [address] Scheduled Procedures Name Priority Associated Diagnoses Date/Ti [...] Colorectal Cancer Screening 06/30/2024 GFR 10/09/2024 10/10/2023, 06/0 08/2023, 08/11/2023, Additional history exists Albumin/Creatinine Ratio 07/09/2026 [...] as of this encounter Care Teams Machine Adjuster Leader Case Trim Relationship Specialty Start Date End Date Rao Ochoa MD [address] [place] [address] PCP - General Internal Medicine 10/11/23 documented as of this encounter
--- OUTSIDE RECORDS SUMMARY | 2023-11-17 00:02 | External Medical Summary | Summary of Care ---
Author Name Unknown Organization [facility] Address [address] [place] [address] Phone [phone] Care Team Providers Care Tool And Die Inspector Name Role Phone Toby Paz MD Primary Care Provider [phone] Reason for Visit * Reason Onset Date Comments Appointment 10/11/2023 Encounter Details Date Type Department Care Team (Late st Contact Info) Description 10/11/2023 Junior Account Executive Telephone Care Coordination and Integration [address] [place], [place] [phone] Ashanti Davis, RONA [address] [place], [place] [phone] Appointment Allergies Active Allergy Reactions Criticality Noted Date Comments Other Allergy (See Comments) Anaphylaxis High 06/21/2018 Bee stings- swelling documented as of this encounter (statuses as of 10/11/2023) Medications Medication Sig Dispensed Refills Start Date [...] as of this encounter (statuses as of 10/11/2023) Active Problems Problem Noted Date Diagnosed Date [...] as of this encounter (statuses as of 10/11/2023) Resolved Problems Problem Noted Date Diagnosed Date Resolved Date History of alcohol abuse 05/22/2023 Alcohol dependence, uncomplicated 01/17/2023 05/22/2023 Avascular necrosis of bone of hip 05/10/2022 05/22/2023 Chronic alcohol abuse 06/17/20212023 Facial swelling 06/09/2017 08/07/2019 Urticaria 06/09/2017 08/07/2019 Intestinal obstruction 05/09/201203/02 CLASSICAL MIGRAINE WITHOU ME NTION OF INTRACTABLE MIGRAINE 11/29/2001 08/07/2019 Undiagnosed cardiac murmurs 11/29/2001 03/02/2017 Overview: Not [place] on 11/29/01 documented as of this encounter (statuses as of 10/11/2023) Immunizations Name Administration Dates Next Due HEP A - Hepatitis A (Adult > 18 yrs) 06/06/2020 Pneumococcal Conjugate Vacci ne, 20-valent ([id number]) 06/24/2022 Seasonal Influenza Virus Vac cine, Unspecified [...] Telephone Encounter - Maylin Sutton OSA - 10/11/2023 1:43 PM EDT Called patient to schedule and received the following message: "The subscriber you have dialed is not in service". Unable to reach patient. Letter sent. 10/11/2023 * Telephone Encounter - Ashanti Davis RN - 10/11/2023 12:13 PM EDT Patient was discharged from [facility] on 10/01/2023 and is in need of a hospital discharge follow up appointment. Please contact patient to schedule a hospital discharge appointment. Thanks, Ashanti Davis RN, BSN [facility] Junior Account Executive [phone] documented in this encounter Plan of Treatment Upcoming Encounters Date Type Department Care Team (Latest Contact Info) Description 4 2:00 PM EDT NeuroDiagnostic Study Neurophysiolog y Ramandeep Wilson [place] [address] [place] [address] Sp, Neurophys Tech 200 [facility] [place] [address] 4 5:40 PM EDT Office Visit [facility] [address] [place] [facility] [phone] Tboy Paz MD [address] [place] [address] 4 1:04 PM EDT Hospital Encounter OR [facility], Operating Room, [facility] - 4th Floor [address] [place] [address] Ki Huang MD [address] [place] [address] 4 1:04 PM EDT - 4 1:54 PM EDT Surgery OR [facility], Operating Room, [facility] - 4th Floor [address] [place] [address] Ki Huang MD [address] [place] [address] ESOPHAGOGASTRODUODENOSCOPY (EGD), FLEXIBLE, TRANSORAL, DIAGNOSTIC 4 3:40 PM EDT Office Visit Neurology [facility] [place] 200 [facility] [place] [address] Britni De La Cruz MD [address] [place] [address] Scheduled Procedures Name Priority Associated Diagnoses Date/Ti [...] filedocumented as of this encounter Care Teams Tool And Die Inspector Relationship Specialty Start Date End Date Toby Paz MD [address] [place] [address] PCP - General Family Medicine 11/25/14 documented as of this encounter
--- OUTSIDE RECORDS SUMMARY | 2023-11-17 00:02 | External Medical Summary | Summary of Care ---
Author Name Unknown Organization [facility] Address [address] [facility] [address] Phone [phone] Care Team Providers Care Animal Taxonomist Name Role Phone Rao Ochoa MD Primary Care Provider [phone] Reason for Visit * Reason Comments eRx-Medication Refill Encounter Details Date Type Department Care Team (Late st Contact Info) Description 10/14/[address] [place] [address] Keyanna Gordon, YOGESH [address] [facility] [place] [address] Hyperammonemia (HCC) Allergies Active Allergy Reactions Criticality Noted Date Comments Other Allergy (See Comments) Anaphylaxis High 06/21/2018 Bee stings- swelling documented as of this encounter (statuses as of 10/16/2023) Medications Medication Sig Dispensed Refills Start Date [...] mL before bedtime. 946 mL 10/16/2023 Active Lactulose 10 GM/15ML Oral Solution (Constulose)Kaylin cations:Hyperamm onemia (HCC) Take 30 mL by mouth in the morning and 30 mL at noon and 30 mL in the evening and 30 mL before bedtime. 946 mL 5 03/29/2023 Discontinued Hospital, Clinic, or Other Facility Administered Medication Ordered Dose Route Frequency Start Date End Date Status albuterol sulfate (PROVENTIL) (2.5 MG/3ML) 0.083% inhalation solution 2.5 mgIndications:SOB (shortness of breath) 2.5 mg NEBULIZER Q4H PRN 05/10/2018 Act guzman documented as of this encounter (statuses as of 10/16/2023) Active Problems Problem Noted Date Diagnosed Date [...] as of this encounter (statuses as of 10/16/2023) Resolved Problems Problem Noted Date Diagnosed Date Resolved Date History of alcohol abuse 05/22/2023 Alcohol dependence, uncomplicated 01/17/2023 05/22/2023 Avascular necrosis of bone of hip 05/10/2022 05/22/2023 Chronic alcohol abuse 06/17/20212023 Facial swelling 06/09/2017 08/07/2019 Urticaria 06/09/2017 08/07/2019 Intestinal obstruction 05/09/201203/02 CLASSICAL MIGRAINE WITHOU ME NTION OF INTRACTABLE MIGRAINE 11/29/2001 08/07/2019 Undiagnosed cardiac murmurs 11/29/2001 03/02/2017 Overview: Not [place] on 11/29/01 documented as of this encounter (statuses as of 10/16/2023) Immunizations Name Administration Dates Next Due HEP A - Hepatitis A (Adult > 18 yrs) 06/06/2020 Pneumococcal Conjugate Vacci ne, 20-valent ([id number]) 06/24/2022 Seasonal Influenza Virus Vac cine, Unspecified [...] Telephone Encounter - Rao Ochoa MD - 10/16/2023 10:51 AM EDTSigned Prescriptions: Disp Refills Lactulose 10 GM/15ML Oral Solution (Constu*946 mL 0 Sig: Take 30 mL by mouth in the morning and 30 mL at noon and 30 mL in the evening and 30 mL before bedtime. Authorizing Provider: RAO OCHOA * Telephone Encounter - Chelle Brewster LPN - 10/16/2023 10:20 AM EDTPending Prescriptions: Disp Refills Lactulose 10 GM/15ML Oral Solution [Pharma*946 mL 0 Sig: Take 30 mL by mouth in the morning and 30 mL at noon and 30 mL in the evening and 30 mL before bedtime. * Telephone Encounter - Daljit Atkinson - 10/14/2023 7:12 PM EDTPending Prescriptions: Disp Refills Lactulose 10 GM/15ML Oral Solution [Pharma*946 mL 0 Sig: Take 30 mL by mouth in the morning and 30 mL at noon and 30 mL in the evening and 30 mL before bedtime.---- documented in this encounter Plan of Treatment Upcoming Encounters Date Type Department Care Team (Latest Contact Info) Description 4 2:00 PM EDT NeuroDiagnostic Study Neurophysiolog y [facility] [place] [address] [place] [address] Sp, Neurophys Tech 200 [place] [address] 4 5:40 PM EDT Office Visit [facility] [address] [place] [address] Toby Paz MD [address] [place] [address] 4 1:04 PM EDT Hospital Encounter OR [facility], Operating Room, Main Hospital - 4th Floor [address] [facility] [place] [address] Ki Huang MD [address] [facility] [place] [address] 4 1:04 PM EDT - 4 1:54 PM EDT Surgery OR [facility], Operating Room, [facility] - 4th Floor [address] [place] [address] Ki Huang MD [address] [place] [address] ESOPHAGOGASTRODUODENOSCOPY (EGD), FLEXIBLE, TRANSORAL, DIAGNOSTIC 4 3:40 PM EDT Office Visit Neurology [facility] 200 [facility] [place] [address] Britni De La Cruz MD 200 [facility] [place] [address] Scheduled Procedures Name Priority Associated Diagnoses Date/Ti [...] as of this encounter Visit Diagnoses Diagnosis Hyperammonemia (HCC) 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
--- OUTSIDE RECORDS SUMMARY | 2023-11-17 00:02 | External Medical Summary | Summary of Care ---
Author Name Unknown Organization [facility] Address [address] [place] [facility] [place] [address] Phone [phone] Care Team Providers Care Visual Display Manager Name Role Phone Rao Ochoa MD Primary Care Provider [phone] Reason for Visit * Reason Onset Date Comments Test Results 10/12/2023 Encounter Details Date Type Department Care Team (Late st Contact Info) Description 10/12/2023 Telephone Neurology [facility] [place] 200 [facility] [place] [address] Britni De La Cruz MD [address] [place] [address] Test Results Allergies Active Allergy Reactions Criticality [...] Undiagnosed cardiac murmurs 11/29/2001 03/02/2017 Overview: Not Coffee on 11/29/01 documented as of this encounter (statuses as of 10/12/2023) Immunizations Name Administration Dates Next Due HEP A - Hepatitis A (Adult > 18 yrs) 06/06/2020 Pneumococcal Conjugate Vacci ne, 20-valent ([id number]) 06/24/2022 Seasonal Influenza Virus Vac cine, Unspecified [...] 2:00 PM EDT NeuroDiagnostic Study Neurophysiolog y [facility] [place] 200 [facility] [place] [address] Sp, Neurophys Tech 200 [facility] [place] [address] 4 5:40 PM EDT Office Visit [facility] [address] [facility] [address] Toby Paz MD [address] [place] [facility] [place] [address] 4 1:04 PM EDT Hospital Encounter [place] [facility], Operating Room, [facility] - 4th Floor [address] [place] [address] Ki Huang MD [address] [place] [address] 4 1:04 PM EDT - 4 1:54 PM EDT Surgery OR [facility], Operating Room, [facility] - 4th Floor [address] [place] [address] Ki Huang MD [address] [place] [address] ESOPHAGOGASTRODUODENOSCOPY (EGD), FLEXIBLE, TRANSORAL, DIAGNOSTIC 4 3:40 PM EDT Office Visit Neurology [facility] 200 [facility] [place] [address] Britni De La Cruz MD [address] [place] [address] Scheduled Procedures Name Priority Associated Diagnoses Date/Ti [...] filedocumented as of this encounter Care Teams Visual Display Manager Relationship Specialty Start Date End Date Rao Ochoa MD [address] [place] [address] PCP - General Internal Medicine 10/11/23 documented as of this encounter
--- OUTSIDE RECORDS SUMMARY | 2023-11-17 00:02 | External Medical Summary | Summary of Care ---
Author Name Unknown Organization [facility] Address [address] [facility] [place] [address] Phone [phone] Care Team Providers Care Outside Sales Manager Name Role Phone Rao Ochoa MD Primary Care Provider [phone] Reason for Visit * Auth/Cert Specialty Diagnoses / Procedures Referred By Pj hernandez Referred To Contact Diagnoses Cirrhosis (HCC) Cirrhosis (HCC) [K74.60] Procedures EGD, FLEXIBLE, DIAGNOSTIC ESOPHAGOGASTRODUODENOSCOPY (EGD), FLEXIBLE, TRANSORAL, DIAGNOSTIC Lopez Shi MD [address] [facility] [place] [address] Endo [place] [address] [employer] [place] [address] Referral ID Status Reason Start Date Expiration Date Visits Re quested Visits Authorized [id number] Encounter Details Date Type Department Care Team (Latest Contact Info) Description 10/18/2023 10:36 AM EDT - 10/18/2023 12:57 PM EDT Hospital Encounter [facility], Operating Room, [facility] - 4th Floor [address] [place] [address] Jena Camargo MD [address] [facility] [place] [address] Upper GI Endoscopy Discharge Disposition: Home - Self Care Allergies Active Allergy Reactions Criticality Noted Date Comments Other Allergy (See Comments) Anaphylaxis High 06/21/2018 Bee stings- swelling documented as of this encounter (statuses as of 10/19/2023) Medications Medication Sig Dispensed Refills Start Date [...] mL before bedtime. 946 mL 10/16/2023 Active documented as of this encounter (statuses as of 10/19/2023) Active Problems Problem Noted Date Diagnosed Date [...] ischemic heart disease 002 Overview: father had AL's in 40's Gastroesophageal reflux disease with esophagitis documented as of this encounter (statuses as of 10/19/2023) Resolved Problems Problem Noted Date Diagnosed Date Resolved Date History of alcohol abuse 05/22/2023 Alcohol dependence, uncomplicated 01/17/2023 05/22/2023 Avascular necrosis of bone of hip 05/10/2022 05/22/2023 Chronic alcohol abuse 06/17/20212023 Facial swelling 06/09/2017 08/07/2019 Urticaria 06/09/2017 08/07/2019 Intestinal obstruction 05/09/201203/02 CLASSICAL MIGRAINE WITHOU ME NTION OF INTRACTABLE MIGRAINE 11/29/2001 08/07/2019 Undiagnosed cardiac murmurs 11/29/2001 03/02/2017 Overview: Not [place] on 11/29/01 documented as of this encounter (statuses as of 10/19/2023) Immunizations Name Administration Dates Next Due HEP A - Hepatitis A (Adult > 18 yrs) 06/06/2020 Pneumococcal Conjugate Vacci ne, 20-valent ([id number]) 06/24/2022 Seasonal Influenza Virus Vac cine, Unspecified [...] Sign Reading Time Taken Comments Blood Pressure 119/77 10/18/2023 12:41 PM EDT Pulse 70 10/18/2023 12:41 PM EDT Temperature 36 C (96.8 F) 10/18/2023 12:41 PM EDT Respiratory Rate 14 10/18/2023 12:41 PM EDT Oxygen Saturation 96% 10/18/2023 12:41 PM EDT Inhaled Oxygen Concentration - - Weight 88.5 kg (195 lb) 10/18/2023 10:47 AM EDT Height 175.3 cm (5' 9.02") 10/18/2023 10:47 AM E DT Body Mass Index 28.78 10/18/2023 10:47 AM EDT documented in this encounter Functional Status Functional Status Response Date of Assess ment Does this person have seriou s difficulty walking or climbing stairs? Yes 08/23/2021 documented as of this encounter Progress Notes * Jena Camargo MD - 10/18/2023 12:27 PM EDT BRIEF DISCHARGE SUMMARY [facility] [address] Name: Muaro Gutierrez Location: OR [facility]/OR Date: 10/18/2023 Time: 12:27 PM Seen in recovery Results discussed with him Resume diet/medications later today Discharge to home with an escort when recovered documented in this encounter H&P Notes * Jena Camargo MD - 10/18/2023 11:48 AM EDT Endoscopy Pre-Procedure Assessment Name: Mauro Gutierrez Date: 10/18/2023 Time: 11:48 AM Procedure(s): Upper GI Endoscopy; with Indication(s) of variceal assessment Endoscopy Pre-Procedure Assessment: Prior to the procedure, the patient is identified. The patient's history, medications and allergieshave been reviewed. The patient is competent. The risks and benefits of the proposed procedure and the planned sedation have been discussed with the patient. All questions have been answered and informed consent for the procedure has been obtained. Prior to Admission medications Medication Sig Last Dose Discont. Lactulose 10 GM/15ML Oral Solution (Constulose) Take 30 mL by mouth in the morning and 30 mL at noon and 30 mL in the evening and 30 mL before bedtime. 10/17/2023 LORazepam 0.5 MG Oral Tablet (Ativan) Take 1 Tablet by mouth every 6 hours as needed. 10/17/2023 Spironolactone 25 MG Oral Tablet (Aldactone) Take 1 Tablet by mouth in the morning. 10/17/2023 traZODone HCl 50 MG Oral Tablet (Desyrel) Take 2 Tablets by mouth at bedtime. 10/17/2023 Gabapentin 300 MG Oral Capsule (Neurontin) Take 1 Capsule by mouth at bedtime. 10/17/2023 Furosemide 20 MG Oral Tablet (Lasix) Take 1 Tablet by mouth in the morning. 10/17/2023 FLUoxetine HCl 10 MG Oral Capsule (PROzac) Take 1 Capsule by mouth in the morning. 10/17/2023 Atorvastatin Calcium 20 MG Oral Tablet (Lipitor) Take 1 Tablet by mouth in the morning. 10/17/2023 Gabapentin 100 MG Oral Capsule (Neurontin) take 1 capsule by mouth every morning and AT NOON and BEFORE BEDTIME 10/17/2023 Magnesium Oxide -Mg Supplement 400 (240 Mg) MG Oral Tablet (Mag-Ox) take 1 tablet by mouth IN THE MORNING AND BEFORE BEDTIME 10/17/2023 Pantoprazole Sodium 40 MG Oral Tablet Delayed Release (Protonix) Take 1 Tablet by mouth in the morning and 1 Tablet before bedtime. 10/17/2023 rifAXIMin 550 MG Oral Tablet (Xifaxan) take 1 tablet by mouth IN THE MORNING then take 1 tablet by mouth BEFORE BEDTIME Past Week Iron (Ferrous Sulfate) 325 (65 Fe) MG Oral Tablet Take by mouth. 10/17/2023 traMADol HCl 50 MG Oral Tablet (Ultram) Take 1 Tablet by mouth 2 times a day as needed for Pain, Severe. Over 30 Days EpiPen 2-Dave 0.3 MG/0.3ML Injection Solution Auto-injector For a severe reaction: Place orange end against the outer thigh, press firmly, hold in place for 10 seconds and go to the Emergency room. Ofloxacin 0.3 % Ophthalmic Solution (Ocuflox) Instill 1 Drop into the right eye in the morning and 1 Drop at noon and 1 Drop in the evening and 1 Drop before bedtime. Patient not taking: Reported on 09/18/2023 Not Taking prednisoLONE Acetate 1 % Ophthalmic Suspension (Pred Forte) Instill 1 Drop into the right eye in the morning and 1 Drop at noon and 1 Drop in the evening and 1 Drop before bedtime. Patient not taking: Reported on 08/31/2023 Not Taking Triamcinolone Acetonide 0.1 % External Cream (Aristocort) Apply topically to affected area 2 times a day. To affected area. Patient not taking: Reported on 09/18/2023 Not Taking Diclofenac Sodium 1 % External Gel (Voltaren) Apply topically to affected area 2 times a day. Applyto area lateral to left hip Patient not taking: Reported on 10/10/2023 Not Taking Review of patient's allergies indicates: Allergen Reactions Other Allergy (See Comments) Anaphylaxis Bee stings- swelling BP 125/74 | Pulse 71 | Temp 36.5 C (97.7 F) (Temporal Artery) | Resp 16 | Ht 1.753 m (5' 9.02")| Wt 88.5 kg (195 lb) | SpO2 97% | BMI 28.78 kg/m | BSA 2.08 m Physical Exam: Mental Status Examination: alert and oriented. Resp normal CV normal ASA Grade: III - A patient with severe systemic disease. Abdomen: soft This patient has undergone a preprocedural evaluation. A determination has been made to proceed with the planned procedure under [facility] procedural guidelines and the [facility] Non-Emergent, Elective Medical Services and Treatment Recommendations (published on 07-09-19). The community and hospital prevalence of COVID-19 has been discussed as well as this patient's specific risks associated with SARS-CoV-19 infection. Based upon the clinical acuity and patient-specific care considerations, this procedure is deemed a Tier III - Procedures at little or no risk for clinical deterioration (example - cosmetic). After reviewing the risks and benefits, the patient is deemed in satisfactory condition to undergo the procedure. The anesthesia plan is to use general anesthesia. Jena Camargo MD 10/18/2023 documented in this encounter Procedure Notes * Keyanna Gordon CRNP - 10/18/2023 11:43 AM EDTAssociated Order(s): UPPER GI ENDOSCOPY [facility] Patient Name: Mauro Gutierrez Procedure Date: 10/18/2023 11:43 AM Date of : 1965 Admit Type: Outpatient Note Status: Finalized Date of : 1965 Admit Type: Outpatient Age: 58 Room: OR 5 Gender: Male Note Status: Finalized Procedure: Upper GI endoscopy Indications: Cirrhosis with suspected esophageal varices Providers: Jena Camargo MD Referring MD: Keyanna Gordon NP Medicines: See the Anesthesia note for documentation of the administered medications Complications: No immediate complications. Procedure: Pre-Anesthesia Assessment: - Patient identification and proposed procedure were verified prior to the procedure by the physician, the nurse and the anesthesiologist. The procedure was verified in the pre-procedure area. - Prior to the procedure, a History and Physical was performed, and patient medications, allergies and sensitivities were reviewed. The patient's tolerance of previous anesthesia was reviewed. - The risks and benefits of the procedure and the sedation options and risks were discussed with the patient. All questions were answered and informed consent was obtained. - The medication list for this patient has been reviewed prior to the procedure and has been determined that the patient may proceed with the planned study. Any medication changes made as a result of the findings of this procedure have been discussed with the patient and/or traffic workforce representative at the time of discharge from the department. After obtaining informed consent, the endoscope was passed under direct vision. All instruments were visually inspected immediately before and after removal from the patient to ensure they are fully intact. Throughout the procedure, the patient's blood pressure, pulse, and oxygen saturations were monitored continuously. The GIF-Q190 Endoscope ([id number]) was introduced through the mouth, and advanced to the operative stoma of duodenum. Findings & Specimens: The examined esophagus appeared normal. Faint grade I varices were found in the lower third of the esophagus. The Z-line appeared regular. The examined stomach appeared normal. No evidence of gastric varices were noted. Moderate portal hypertensive gastropathy was found in the stomach. The duodenal bulb and second portion of the duodenum appeared normal. Impression: - Normal esophagus. - Grade I esophageal varices. - Z-line regular. - Normal stomach. No evidence of gastric varices were noted. - Portal hypertensive gastropathy. - Normal duodenal bulb and second portion of the duodenum. Recommendation: - Consider Coreg 6.25 mg po daily to help with reduction in portal pressures. - Repeat EGD in 2 years. Jena Camargo MD 10/18/2023 12:12:34 PM This report has been signed electronically. Estimated Blood Loss: Estimated blood loss was minimal. documented in this encounter Nursing Notes * Candace Trivedi RN - 10/18/2023 12:09 PM EDT EGD completed. Sedated by SOLAR ENGINEER. See anesthesia record for VS and medications given. Pt tolerated procedure well with minimal gagging. Abd soft. Airway patent. Pt to recovery on L side with HOB elevated. Report to recovery room nurse. Bedside cleaning done. documented in this encounter Plan of Treatment Upcoming Encounters Date Type Department Care Team (Late st Contact Info) Description 10/27/2023 2:00 PM EDT NeuroDiagnostic Study Neurophysiology [facility] 200 [facility] [place] [address] Sp, Neurophys Tech 200 [facility] [place] [address] 11/21/2023 5:40 PM EDT Office Visit [facility] [address] [place] [phone] Toby Paz MD [address] [place] [address] 12/28/2023 3:40 PM EDT Office Visit Neurology [facility] 200 [facility] [place] [address] Britni De La Cruz MD 200 [facility] [place] [address] Scheduled Procedures Name Priority Associated Diagnoses Date/Ti [...] Procedure Name Priority Date/Time Associated Diagnosis Comments UPPER GI ENDOSCOPY 10/18/2023 11 :43 AM EDT documented in this encounter Results * UPPER GI ENDOSCOPY (10/18/2023 11:43 AM EDT) 10/18/2023 11:4 3 AM EDT Narrative Procedure Note Keyanna Gordon CRNP - 10/18/2023 11:43 AM EDT [facility] Patient Name: Mauro Gutierrez Procedure Date: 10/18/2023 11:43 AM Date of : 1965 Admit Type: Outpatient Note Status:Finalized Date of : 1965 Admit Type: Outpatient Age: 58 Room: OR 5 Gender: Male Note Status: Finalized Procedure: Upper GI endoscopy Indications: Cirrhosis with suspected esophageal varices Providers: Jena Camargo MD Referring MD: Keyanna Gordon NP Medicines: See the Anesthesia note for documentation of theadministered medications Complications: No immediate complications. Procedure: Pre-Anesthesia Assessment: - Patient identification and proposed procedurewere verified prior to the procedure by the physician, the nurse and theanesthesiologist. The procedure was verified in the pre-procedure area. - Prior to the procedure, a History and Physicalwas performed, and patient medications, allergies and sensitivities werereviewed. The patient's tolerance of previous anesthesia was reviewed. - The risks and benefits of the procedure and thesedation options and risks were discussed with the patient. All questions wereanswered and informed consent was obtained. - The medication list for this patient has beenreviewed prior to the procedure and has been determined that the patient may proceed with the plannedstudy. Any medication changes made as a result of the findings of this procedure have beendiscussed with the patient and/or traffic workforce representative at [facility] After obtaining informed consent, the endoscope waspassed under direct vision. All instruments were visually inspected immediatelybefore and after removal from the patient to ensure they are fully intact. Throughoutthe procedure, the patient's blood pressure, pulse, and oxygen saturations weremonitored continuously. The GIF-Q190 Endoscope ([id number]) was introduced throughthe mouth, and advanced to the operative stoma of duodenum. Findings & Specimens: The examined esophagus appeared normal. Faint grade I varices were found in the lower third of theesophagus. The Z-line appeared regular. The examined stomach appeared normal. No evidence of gastric variceswere noted. Moderate portal hypertensive gastropathy was found in the stomach. The duodenal bulb and second portion of the duodenum appearednormal. Impression: - Normal esophagus. - Grade I esophageal varices. - Z-line regular. - Normal stomach. No evidence of gastric variceswere noted. - Portal hypertensive gastropathy. - Normal duodenal bulb and second portion of theduodenum. Recommendation: - Consider Coreg 6.25 mg po daily to help withreduction in portal pressures. - Repeat EGD in 2 years. Jena Camargo MD 10/18/2023 12:12:34 PM This report has been signed electronically. Estimated Blood Loss: Estimated blood loss was minimal. Keyanna ZUÑIGA GASTRO UPPER documented in this encounter Administered Medications Inactive Administered Medications - up to 3 most recent administrations Medication Order MAR Action Action Date Dose Rate Site isolyte-S pH 7.4 infusion Intravenous, at 10 mL/hr, Plasma-LYTE 148, isolyte-S, and isolyte-S pH 7.4 are considered equivalent - including for MAR barcode scanning., CONTINUOUS, Starting on Mon10/18/23 at 1130, Until Mon10/18/23 at 1657 Restarted 10/18/2023 12:03 PM EDT Continue from Pre-Op 10/18/2023 11:59 AM EDT 10 mL/hr New Bag 10/18/2023 11:00 AM EDT 10 mL/hr documented in this encounter Active and Recently Administered Medications Times are shown in EDT. Continuous Medication Order 10/16/2023 10/17/2023 10/18/2023 isolyte-S pH 7.4 infusion Intravenous, at 10 mL/hr, Plasma-LYTE 148, isolyte-S, and isolyte-S pH 7.4 are considered equivalent - including for MAR barcode scanning., CONTINUOUS, Starting on Mon10/18/23 at 1130, Until Mon10/18/23 at 1657 1100 (New Bag - Prov ider: Rosa Patel RN)1159 (Continue from Pre-Op - Provider: Jeni Hooks CRNA)1202 (Paused - Provider: Jeni Hooks CRNA - Comment: Switch to gravity)1203 (Restarted - Provider: Jeni Hooks CRNA) documented in this encounter Care Teams Outside Sales Manager Relationship Specialty Start Date End Date Rao Ochoa MD [address] [place] [address] PCP - General Internal Medicine 10/11/23 documented as of this encounter
--- OUTSIDE RECORDS SUMMARY | 2023-11-17 00:02 | External Medical Summary | Summary of Care ---
Author Name Unknown Organization [facility] Address [address] [place] [address] Phone [phone] Care Team Providers Care Hazardous Materials Waste Technician Name Role Phone Toby Paz MD Primary Care Provider +1- [phone] Reason for Visit * Reason Onset Date Comments Fax 07/12/2023 Encounter Details Date Type Department Care Team (Late st Contact Info) Description 07/12/2023 Telephone [facility] [address] [place] [address] Toby Paz MD [address] [place] [address] Fax Allergies Active Allergy Reactions [...] on 10/10/2023 Lactulose 10 GM/15ML Oral Solution (Constulose)Indic ations:Hyperammon [...] at bedtime. 180 Tablet 3 07/07/2023 Active EpiPen 2-Dave 0.3 MG/0.3ML Injection Solution Auto-injector For a severe reaction: Place orange end against the outer thigh, press firmly, hold in place for 10 seconds and go to the Emergency room. 2 Each 1 07/20/2020 4 Discontinue d(Refill) traMADol HCl 50 MG Oral Tablet (Ultram)Indicatio ns:Avascular necrosis of bone of left hip (HCC) Take 1 Tablet by mouth every 8 hours as needed for Pain, Severe. 30 Tablet 06/28/2023 4 Discontinue d(Refill) Spironolactone 25 MG Oral Tablet (Aldactone) Take [...] Undiagnosed cardiac murmurs 11/29/2001 03/02/2017 Overview: Not [place] on 11/29/01 documented as of this encounter (statuses as of 10/11/2023) Immunizations Name Administration Dates Next Due HEP A - Hepatitis A (Adult > 18 yrs) 06/06/2020 Pneumococcal Conjugate Vacci ne, 20-valent ([id number]) 06/24/2022 Seasonal Influenza Virus Vac cine, Unspecified [...] Telephone Encounter - Leeanna Mcdermott LPN - 07/12/2023 12:28 PM EDT Paperwork was faxed. [phone] * Telephone Encounter - Randi Morales OSA - 07/12/2023 9:12 AM EDT Caller requesting the following information to be faxed: Name/Company of caller: [employer] Information requested to be faxed: Office note Pre-op clearance Fax number: [phone] Attention to Name/Company: [employer] Any additional information?: n/a documented in this encounter Plan of Treatment Upcoming Encounters Date Type Department Care Team (Latest Contact Info) Description 4 2:00 PM EDT NeuroDiagnostic Study Neurophysiolog y [facility] [place] [address] [facility] [place] [address] Sp, Neurophys Tech 200 [facility] [place] [address] 4 5:40 PM EDT Office Visit [facility] [address] [place] [phone] Toby Paz MD [address], [place] [address] 4 1:04 PM EDT Hospital Encounter OR [facility], Operating Room, [facility] - 4th Floor [address] [place] [address] [place] [address] Ki Huang MD [address] [place] [address] 4 1:04 PM EDT - 4 1:54 PM EDT Surgery OR [facility], Operating Room, [facility] - 4th Floor [address] [place] [place] [address] Ki Huang MD [address] [place] [address] ESOPHAGOGASTRODUODENOSCOPY (EGD), FLEXIBLE, TRANSORAL, DIAGNOSTIC 4 3:40 PM EDT Office Visit Neurology [facility] [place] [address] [place] [address] Britni De La Cruz MD [address] [place] [address] Scheduled Procedures Name Priority Associated Diagnoses Date/Ti [...] filedocumented as of this encounter Care Teams Hazardous Materials Waste Technician Relationship Specialty Start Date End Date Toby Paz MD [address] [place] [address] PCP - General Family Medicine 11/25/14 documented as of this encounter
--- OUTSIDE RECORDS SUMMARY | 2023-11-17 00:02 | External Medical Summary | Summary of Care ---
Author Name Unknown Organization [facility] Address [address] [place] [address] Phone [phone] Care Team Providers Care Mushroom Cutter Name Role Phone Rao Ochoa MD Primary Care Provider [phone] Reason for Visit * Reason Onset Date Comments Test Results Lab 10/10/2023 Encounter Details Date Type Department Care Team (Late st Contact Info) Description 10/10/2023 Telephone Gastroenterology, [place] [address], [place] [id number] Services, [facility] [address] [place] [address] Test Results Lab Allergies Active Allergy Reactions Criticality Noted Date Comments Other Allergy (See Comments) Anaphylaxis High 06/21/2018 Bee stings- swelling documented as of this encounter (statuses as of 10/18/2023) Medications Medication Sig Dispensed Refills Start Date [...] mL before bedtime. 946 mL 5 03/29/2023 4 Discontinued Hospital, Clinic, or Other Facility Administered Medication Ordered Dose Route Frequency Start Date End Date Status albuterol sulfate (PROVENTIL) (2.5 MG/3ML) 0.083% inhalation solution 2.5 mgIndications:SOB (shortness of breath) 2.5 mg NEBULIZER Q4H PRN 05/10/2018 Act guzman documented as of this encounter (statuses as of 10/18/2023) Active Problems Problem Noted Date Diagnosed Date [...] as of this encounter (statuses as of 10/18/2023) Resolved Problems Problem Noted Date Diagnosed Date Resolved Date History of alcohol abuse 05/22/2023 Alcohol dependence, uncomplicated 01/17/2023 05/22/2023 Avascular necrosis of bone of hip 05/10/2022 05/22/2023 Chronic alcohol abuse 06/17/20212023 Facial swelling 06/09/2017 08/07/2019 Urticaria 06/09/2017 08/07/2019 Intestinal obstruction 05/09/201203/02 CLASSICAL MIGRAINE WITHOU ME NTION OF INTRACTABLE MIGRAINE 11/29/2001 08/07/2019 Undiagnosed cardiac murmurs 11/29/2001 03/02/2017 Overview: Not [place] on 11/29/01 documented as of this encounter (statuses as of 10/18/2023) Immunizations Name Administration Dates Next Due HEP A - Hepatitis A (Adult > 18 yrs) 06/06/2020 Pneumococcal Conjugate Vacci ne, 20-valent ([id number]) 06/24/2022 Seasonal Influenza Virus Vac cine, Unspecified [...] encounter Miscellaneous Notes * Telephone Encounter - Lesly Turner CMA - 10/18/2023 9:51 AM EDT Pt scheduled today 10/18/23 for EGD. Addressed at preanesthesia call 10/16/23. * Telephone Encounter - Falguni Ritter LPN - 10/11/2023 8:52 AM EDT Mauro still has not read his [employer] message. Attempted to call, but both his and the alternative contact's number is not in service. * Telephone Encounter - Sandra Patel OSA - 10/10/2023 6:04 PM EDT Lab called in [facility] to report a critical lab result for patient. Ammonia Level was 135. I notified my residential field manager Deann Oscar of this call. documented in this encounter Plan of Treatment Upcoming Encounters Date Type Department Care Team (Late st Contact Info) Description 10/27/2023 2:00 PM EDT NeuroDiagnostic Study Neurophysiology Ramandeep [place] [address] [place] [address] Sp, Neurophys Tech [address] [place] [address] 11/21/2023 5:40 PM EDT Office Visit [facility] [address] [place] [facility] [place] [address] Toby Paz MD [address] [place] [address] 12/28/2023 3:40 PM EDT Office Visit Neurology [facility] [address] [facility] [place], [place] [address] Britni De La Cruz MD [address] [facility] [place] [address] Scheduled Procedures Name Priority Associated Diagnoses Date/Ti me ESOPHAGOGASTRODUODENOSCOPY ( EGD), FLEXIBLE, TRANSORAL, DIAGNOSTIC Cirrhosis (HCC) 10/18/2023 12:19 PM EDT ESOPHAGOGASTRODUODENOSCOPY ( EGD), FLEXIBLE, TRANSORAL, [...] Colorectal Cancer Screening 06/30/2024 GFR 10/09/2024 10/10/2023, 06/08/2023, 08/11/2023, Additional history exists Albumin/Creatinine Ratio 07/09/2026 [...] filedocumented as of this encounter Care Teams Mushroom Cutter Relationship Specialty Start Date End Date Rao Ochoa MD [address] [place] [address] PCP - General Internal Medicine 10/11/23 documented as of this encounter
--- OUTSIDE RECORDS SUMMARY | 2023-11-17 00:03 | External Medical Summary | Summary of Care ---
Author Name Unknown Organization [facility] Address [address] [facility] [address] Phone [phone] Care Team Providers Care Tool Setter Apprentice Name Role Phone Toby Paz MD Primary Care Provider [phone]- [phone] Reason for Visit * Reason Comments Outpatient Testing Encounter Details Date Type Department Care Team (Late st Contact Info) Description 10/10/2023 10:40 AM EDT Laboratory Laboratory [facility] [place] [address] [place] [address] [facility] Lab [facility] [address] [facility] [place] [address] Alcoholic cirrhosis of liver with ascites (HCC); Alcoholic cirrhosis of liver (HCC); Other specified pre-operative examination; Polyneuropathy Allergies Active Allergy Reactions Criticality Noted Date Comments Other Allergy (See Comments) Anaphylaxis High 06/21/2018 Bee stings- swelling documented as of this encounter (statuses as of 10/10/2023) Medications Medication Sig Dispensed Refills Start Date [...] as of this encounter (statuses as of 10/10/2023) Active Problems Problem Noted Date Diagnosed Date [...] as of this encounter (statuses as of 10/10/2023) Resolved Problems Problem Noted Date Diagnosed Date Resolved Date History of alcohol abuse 05/22/2023 Alcohol dependence, uncomplicated 01/17/2023 05/22/2023 Avascular necrosis of bone of hip 05/10/2022 05/22/2023 Chronic alcohol abuse 06/17/20212023 Facial swelling 06/09/2017 08/07/2019 Urticaria 06/09/2017 08/07/2019 Intestinal obstruction 05/09/201203/02 CLASSICAL MIGRAINE WITHOU ME NTION OF INTRACTABLE MIGRAINE 11/29/2001 08/07/2019 Undiagnosed cardiac murmurs 11/29/2001 03/02/2017 Overview: Not [place] on 11/29/01 documented as of this encounter (statuses as of 10/10/2023) Immunizations Name Administration Dates Next Due HEP A - Hepatitis A (Adult > 18 yrs) 06/06/2020 Pneumococcal Conjugate Vacci ne, 20-valent ([id number]) 06/24/2022 Seasonal Influenza Virus Vac cine, Unspecified [...] 2:00 PM EDT NeuroDiagnostic Study Neurophysiolog y [facility] 200 [place] [address] Sp, Neurophys Tech 200 [place] [address] 4 5:40 PM EDT Office Visit [facility] [address] [place] [address] Toby Paz MD [address] [place] [address] 4 1:04 PM EDT Hospital Encounter OR [facility], Operating Room, [facility] - 4th Floor [address] [place] [address] Ki Huang MD [address] [place] [address] 4 1:04 PM EDT - 4 1:54 PM EDT Surgery OR [facility], Operating Room, [facility] - 4th Floor [address] [place] [address] Ki Huang MD [address] [place] [address] ESOPHAGOGASTRODUODENOSCOPY (EGD), FLEXIBLE, TRANSORAL, DIAGNOSTIC 3:40 PM EDT Office Visit Neurology [facility] 200 [facility] [place] [address] Britni De La Cruz MD [address] [place] [address] Pending Results Name Type Priority Associated Diagnoses Date /Time PT INR Lab Routine Alcoholic cirrhosis of liver with ascites (HCC) 10/10/2023 11:34 AM EDT AMMONIA Lab Routine Alcoholic cirrhosis of liver with ascites (HCC) 10/10/2023 11:34 AM EDT PSA Lab Routine Alcoholic cirrhosis of liver (HCC) Other specified pre-operative examination 10/10/2023 11:34 AM EDT PHOSPHATIDYLETHANOL, BLOOD Lab Routine Alcoholic cirrhosis of liver (HCC) Other specified pre-operative examination 10/10/2023 11:34 AM EDT BASIC METABOLIC PANEL Lab Routine Alcoholic cirrhosis of liver (HCC) Other specified pre-operative examination 10/10/2023 11:34 AM EDT MONOCLONAL GAMMOPATHIES SCREENING PANEL Lab Routine Polyneuropathy 10/10/2023 11:34 AM EDT SERUM PROTEIN ELECTROPHORESIS REFLEX PROFILE Lab Routine Polyneuropathy 10/10/2023 11:34 AM EDT SERUM FREE LIGHT CHAINS Lab Routine Polyneuropathy 10/10/2023 11:34 AM EDT SERUM IMMUNOFIXATION Lab Routine Polyneuropathy 10/10/2023 11:34 AM EDT CULTURE, URINE, QUANTITATIVE Lab Routine Alcoholic cirrhosis of liver with ascites (HCC) 10/10/2023 11:37 AM EDT Scheduled Procedures Name Priority Associated [...] with ascites (HCC) Alcoholic cirrhosis of liver Other specified pre-operative examination Polyneuropathy Unspecified hereditary and idiopathic peripheral neuropathy Cirrhosis (HCC) Cirrhosis of liver without mention of alcohol documented in this encounter Care Teams Tool Setter Apprentice Relationship Specialty Start Date End Date Toby Paz MD [address] [place] [address] PCP - General Family Medicine 11/25/14 documented as of this encounter
--- OUTSIDE RECORDS SUMMARY | 2023-11-17 00:03 | External Medical Summary | Summary of Care ---
Author Name Unknown Organization [facility] Address [address] [facility] [place] [address] Phone [phone] Care Team Providers Care Associate Professor Of Automation Name Role Phone Toby Paz MD Primary Care Provider +1- [phone] Encounter Details Date Type Department Care Team (Late st Contact Info) Description 10/11/2023 Telephone Neurology [facility] [address] [place] [address] Britni De La Cruz MD [address] [place] [address] Allergies Active Allergy Reactions Criticality Noted Date [...] Undiagnosed cardiac murmurs 11/29/2001 03/02/2017 Overview: Not [place] on 11/29/01 documented as of this encounter (statuses as of 10/11/2023) Immunizations Name Administration Dates Next Due HEP A - Hepatitis A (Adult > 18 yrs) 06/06/2020 Pneumococcal Conjugate Vacci ne, 20-valent ([id number]) 06/24/2022 Seasonal Influenza Virus Vac cine, Unspecified [...] - Britni De La Cruz MD - 10/11/2023 9:14 AM EDT Call fiance-who is liver specialist? documented in this encounter Plan of Treatment Upcoming Encounters Date Type Department Care Team (Latest Contact Info) Description 4 2:00 PM EDT NeuroDiagnostic Study Neurophysiolog y [facility] 200 [facility] [place] [address] Sp, Neurophys Tech 200 [facility] [address] 4 5:40 PM EDT Office Visit [facility] [address] [place] [phone] Toby Paz MD [address] [place] [address] 4 1:04 PM EDT Hospital Encounter OR [facility], Operating Room, [facility] - 4th Floor [address] [place] [id number] Ki Huang MD [address] [place] [address] 4 1:04 PM EDT - 4 1:54 PM EDT Surgery OR [facility], Operating Room, [facility] - 4th Floor [address] [place] [address] Ki Huang MD [address] [place] [address] ESOPHAGOGASTRODUODENOSCOPY (EGD), FLEXIBLE, TRANSORAL, DIAGNOSTIC 4 3:40 PM EDT Office Visit Neurology [facility] 200 [facility] [place] [address] Britni De La Cruz MD 200 [facility] [place] [address] Scheduled Procedures Name Priority Associated Diagnoses Date/Ti [...] as of this encounter Care Teams Associate Professor Of Automation Relationship Specialty Start Date End Date Toby Paz MD [address] [place] [address] PCP - General Family Medicine 11/25/14 documented as of this encounter
--- OUTSIDE RECORDS SUMMARY | 2023-11-17 00:03 | External Medical Summary | Summary of Care ---
Author Name Unknown Organization [facility] Address [address] [facility] [address] Phone [phone] Care Team Providers Care Manufacturing Quality Engineer Name Role Phone Toby Paz MD Primary Care Provider +1- [phone] Reason for Visit * Reason Comments Outpatient Testing Encounter Details Date Type Department Care Team (Late st Contact Info) Description 10/10/2023 10:40 AM EDT Laboratory Laboratory [facility] [place] [address] [place] [address] [facility] [address] [facility] [place] [address] Alcoholic cirrhosis of liver with ascites (HCC); [...] Undiagnosed cardiac murmurs 11/29/2001 03/02/2017 Overview: Not [place] on 11/29/01 documented as of this encounter (statuses as of 10/11/2023) Immunizations Name Administration Dates Next Due HEP A - Hepatitis A (Adult > 18 yrs) 06/06/2020 Pneumococcal Conjugate Vacci ne, 20-valent ([id number]) 06/24/2022 Seasonal Influenza Virus Vac cine, Unspecified [...] Encounter Note - Keyanna Gordon CRNP - 10/11/2023 9:24 AM EDT Message sent, not read. I tried to call his and his SO phone - got these at both numbers "not a subscriber" Reviewed [facility] records where admitted for acute hep enceph 09/29 and 09/30. documented in this encounter Plan of Treatment Upcoming Encounters Date Type Department Care Team (Latest Contact Info) Description 4 2:00 PM EDT NeuroDiagnostic Study Neurophysiolog y Ramandeep [place] [address] [place] [address] Sp, Neurophys Tech 200 [facility] [place] [address] 4 5:40 PM EDT Office Visit [facility] [address] [facility] [address] Toby Paz MD [address] [place] [facility] [place] [address] 4 1:04 PM EDT Hospital Encounter OR [facility], Operating Room, [facility] - 4th Floor 400 [facility] [place] [address] Ki Huang MD [address] [place] [address] 4 1:04 PM EDT - 4 1:54 PM EDT Surgery OR [facility], Operating Room, [facility] - 4th Floor [address] [facility] [place] [address] Ki Huang MD [address] [place] [address] ESOPHAGOGASTRODUODENOSCOPY (EGD), FLEXIBLE, TRANSORAL, DIAGNOSTIC 4 3:40 PM EDT Office Visit Neurology [facility] 200 [facility] [place] [address] Britni De La Cruz MD [address] [place] [address] Pending Results Name Type Priority Associated Diagnoses Date /Time PHOSPHATIDYLETHANOL, BLOOD Lab Routine Alcoholic cirrhosis of [...] Scheduled Procedures Name Priority Associated Diagnoses Date/Ti id ESOPHAGOGASTRODUODENOSCOPY ( EGD), FLEXIBLE, TRANSORAL, DIAGNOSTIC Cirrhosis [...] Procedure Name Priority Date/Time Associated Diagnosis Comments BASIC METABOLIC PANEL Routine 10/10/2023 11:34 AM EDT Alcoholic cirrhosis of liver (HCC) Other specified pre-operative examination PSA Routine 10/10/2023 11:34 AM EDT Alcoholic cirrhosis of liver (HCC) Other specified pre-operative examination SERUM FREE LIGHT CHAINS Routine 10/10/2023 11:34 AM EDT Polyneuropathy PT INR Routine 10/10/2023 11:34 AM EDT Alcoholic cirrhosis of liver with ascites (HCC) AMMONIA Routine 10/10/2023 11:34 AM EDT Alcoholic cirrhosis of liver with ascites (HCC) documented in this encounter Results * (ABNORMAL) SERUM FREE LIGHT CHAINS (10/10/2023 11:34 AM EDT) [place] Free Light Chains, Serum 44.19(H) 3.30 - 19.40 mg/L 10/11/2023 9:06 AM EDT LABORATORY [facility] [place] Free Light Chains, Serum 37.20(H) 5.71 - 26.30 mg/L 10/11/2023 9:06 AM EDT LABORATORY [facility] [place] Lambda Free Light Chains Ratio 1.19 0.26 - 1.65 10/11/2023 9:06 AM EDT LABORATORY [facility] Blood Venous blood specimen / Unknown Venipuncture / Unknown 10/10/2023 11:34 AM EDT 10/10/2023 11:35 AM EDT Britni De La Cruz MD LAB BLOOD ORDER [facility] [address] [place] [address] * (ABNORMAL) BASIC METABOLIC PANEL (10/10/2023 11:34 AM EDT) Pathologist [facility] BUN 12 6 - 20 mg/dL 10/10/2023 1:16 PM EDT [facility] 56-02 Creatinine 0.8 0.6 - 1.2 mg/dL 10/10/2023 1:16 PM EDT [facility] 56- Estimated Glomerular Filtration Rate >90 >=60 mL/min 10/10/2023 1:16 PM EDT [facility] 56- Comment:eGFR is calculated b ased on the CKD-EPI 2020 equation Sodium 142 135 - 146 mmol/L 10/10/2023 1:16 PM EDT [facility] 56- Potassium 4.2 3.5 - 5.1 mmol/L 10/10/2023 1:16 PM EDT [facility] 56- Chloride 113(H) 98 - 107 mmol/L 10/10/2023 1:16 PM EDT [facility] 56 CO2 20(L) 22 - 32 mmol/L 10/10/2023 1:16 PM EDT [facility] 56- Anion Gap 9 7 - 15 mmol/L 10/10/2023 1:16 PM EDT [facility] 56- Glucose 82 70 - 120 mg/dL 10/10/2023 1:16 PM EDT [facility] 56 Calcium 9.0 8.4 - 10.2 mg/dL 10/10/2023 1:16 PM EDT LABORATORY [place] 56- Blood Venous blood specimen / Unknown Venipuncture / Unknown 10/10/2023 11:34 AM EDT 10/10/2023 11:35 AM EDT Keyanna ZUÑIGA LAB BLOOD ORDERABL ES [facility] 56- [address] [place] [address] * PSA (10/10/2023 11:34 AM EDT) PSA 0.59 <3.10 ng/mL 10/10/2023 8:57 PM EDT LABORATORY [facility] Blood Venous blood specimen / Unknown Venipuncture / Unknown 10/10/2023 11:34 AM EDT 10/10/2023 11:35 AM EDT Keyanna ZUÑIGA LAB BLOOD ORDERABL ES LABORATORY [facility] [address] [place] [address] * (ABNORMAL) AMMONIA (10/10/2023 11:34 AM EDT) Ammonia 135(HH) 11 - 35 umol/L 10/10/2023 5:56 PM EDT LABORATORY [facility] Blood Venous blood specimen / Unknown Venipuncture / Unknown 10/10/2023 11:34 AM EDT 10/10/2023 11:35 AM EDT Keyanna ZUÑIGA LAB BLOOD ORDERABL ES [facility] [address] [place] [address] * (ABNORMAL) PT INR (10/10/2023 11:34 AM EDT) Prothrombin Time 18.2(H) 11.6 - 15.2 seconds 10/10/2023 12:10 PM EDT [facility] 56- INR 1.5(H) 0.8 - 1.2 10/10/2023 12:10 PM EDT [facility] 56- Blood Venous blood specimen / Unknown Venipuncture / Unknown 10/10/2023 11:34 AM EDT 10/10/2023 11:35 AM EDT Narrative [facility] 56- - 10/10/2023 12:10 PM EDT Warfarin Therapy INR: 2.0-3.0 conventional anticoagulation INR: 2.5-3.5 high intensity anticoagulation Krystalkaris Ruddy ZUÑIGA LAB BLOOD ORDERABL ES [facility] 56- [address] [place] [address] documented in this encounter Visit Diagnoses Diagnosis Alcoholic cirrhosis of liver with ascites (HCC) Alcoholic cirrhosis of liver Other specified pre-operative examination Polyneuropathy Unspecified hereditary and idiopathic peripheral neuropathy Cirrhosis (HCC) Cirrhosis of liver without mention of alcohol documented in this encounter Care Teams Manufacturing Quality Engineer Relationship Specialty Start Date End Date Toby Paz MD [address] [place] [address] PCP - General Family Medicine 11/25/14 documented as of this encounter
--- OUTSIDE RECORDS SUMMARY | 2023-11-17 00:03 | External Medical Summary | Summary of Care ---
Author Name Unknown Organization [facility] Address [address] [facility] [place] [address] Phone [phone] Care Team Providers Care Field Technical Support Consultant Name Role Phone Toby Paz MD Primary Care Provider +1- [phone] Encounter Details Date Type Department Care Team (Late st Contact Info) Description 10/11/2023 Telephone Neurology [facility] [address] [place] [address] Britni De La Cruz MD [address] [place] [address] Allergies Active Allergy Reactions Criticality Noted Date [...] Undiagnosed cardiac murmurs 11/29/2001 03/02/2017 Overview: Not Morgan on 11/29/01 documented as of this encounter (statuses as of 10/11/2023) Immunizations Name Administration Dates Next Due HEP A - Hepatitis A (Adult > 18 yrs) 06/06/2020 Pneumococcal Conjugate Vacci ne, 20-valent ([id number]) 06/24/2022 Seasonal Influenza Virus Vac cine, Unspecified [...] Telephone Encounter - Yari Aaron LPN - 10/11/2023 9:56 AM EDT Attempted to call pt and his fiance and both numbers are no longer in service. Will send [employer] message. * Telephone Encounter - Britni De La Cruz MD - 10/11/2023 9:14 AM EDT Call fiance-who is liver specialist? documented in this encounter Plan of Treatment Upcoming Encounters Date Type Department Care Team (Latest Contact Info) Description 4 2:00 PM EDT NeuroDiagnostic [facility] [place] [address] [place], [place] [address] Sp, Neurophys Tech [address] [place] [address] 4 5:40 PM EDT Office [facility] [address] [facility] [phone] Toby Paz MD [address] [place] [facility] [place] [address] 4 1:04 PM EDT Hospital Encounter OR [facility], Operating Room, [facility] - 4th Floor [address] [place] [address] Ki Huang MD [address] [place] [address] 4 1:04 PM EDT - 4 1:54 PM EDT Surgery OR [facility], Operating Room, [facility] - 4th Floor [address] [place] [address] Ki Huang MD [address] [place] [address] ESOPHAGOGASTRODUODENOSCOPY (EGD), FLEXIBLE, TRANSORAL, DIAGNOSTIC 4 3:40 PM EDT Office Visit Neurology [facility] [address] [place] [address] Britni De La Cruz MD [address] [place] [address] Scheduled Procedures Name Priority Associated Diagnoses Date/Ti [...] filedocumented as of this encounter Care Teams Field Technical Support Consultant Relationship Specialty Start Date End Date Toby Paz MD [address] [place] [address] PCP - General Family Medicine 11/25/14 documented as of this encounter
--- OUTSIDE RECORDS SUMMARY | 2023-11-17 00:03 | External Medical Summary | Summary of Care ---
Author Name Unknown Organization [facility] Address [address] [place] [address] Phone [phone] Care Team Providers Care Soil Specialist Name Role Phone Toby Paz MD Primary Care Provider +1- [phone] Reason for Visit * Reason Comments Return Neuro Encounter Details Date Type Department Care Team (Late st Contact Info) Description 10/10/2023 10:40 AM EDT [facility] [address] [facility] [place] [address] Britni De La Cruz MD [address] [place] [address] Memory loss*; Pain in both upper extremities; Pain in both lower extremities; Polyneuropathy Allergies Active Allergy Reactions Criticality Noted [...] Undiagnosed cardiac murmurs 11/29/2001 03/02/2017 Overview: Not Galax on 11/29/01 documented as of this encounter (statuses as of 10/11/2023) Immunizations Name Administration Dates Next Due HEP A - Hepatitis A (Adult > 18 yrs) 06/06/2020 Pneumococcal Conjugate Vacci ne, 20-valent ([id number]) 06/24/2022 Seasonal Influenza Virus Vac cine, Unspecified [...] Sign Reading Time Taken Comments Blood Pressure 118/60 10/10/2023 10:27 AM EDT Pulse 68 10/10/2023 10:27 AM EDT Temperature 36.8 C (98.2 F) 10/10/2023 10:27 AM E DT Respiratory Rate - - Oxygen Saturation 97% 10/10/2023 10:27 AM EDT Inhaled Oxygen Concentration - - Weight 88.5 kg (195 lb) 10/10/2023 10:27 AM EDT Height - - Body Mass Index 28.8 05/10/2023 5:59 PM EST documented in this encounter Functional Status Functional Status Response Date of Assess ment Does this person have seriou s difficulty walking or climbing stairs? Yes 08/23/2021 documented as of this encounter Progress Notes * Britni De La Cruz MD - 10/10/2023 10:50 AM EDT HISTORY AND PHYSICAL EXAMINATION [place] [address] NAME: Mauro iLu Date of : 1965 Date of Visit: 10/10/23 Chief Complaint: Chief Complaint Patient presents with Return Neuro HPI: Mauro Liu is a 58 year old male presenting with memory loss. Duration has been for several months and timing is ongoing. Context is that of a gentleman who has wearing a liver transplantfor presumptive cirrhosis he has not imbibed alcohol in many years. 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 Duration is for about ayear. He has similar symptoms of his feet with a accompanying balance disorder and inability to stand forvery long since his increases the burning paresthesia He is on gabapentin for the above, which has helped cramping HOME MEDICATIONS : Current Outpatient Medications Medication Sig Dispense Refill [...] by mouth at bedtime. 180 Tablet 3 LORazepam 0.5 MG Oral Tablet (Ativan) Take [...] to the Emergency room. 2 Each 1 traMADol HCl 50 MG Oral Tablet (Ultram) Take 1 Tablet by mouth 2 times a day as needed for Pain, Severe. 30 Tablet 0 Diclofenac Sodium 1 % External Gel (Voltaren) Apply topically to affected area 2 times a day. Applyto area lateral to left hip (Patient not taking: Reported on 10/10/2023) 150 g 5 Triamcinolone Acetonide 0.1 % External Cream (Aristocort) [...] Allergy (See Comments) Anaphylaxis Bee stings- swelling Past Medical History: Diagnosis Date Abdominal pain Alcoholic cirrhosis (HCC) 2020 Cirrhosis of liver with ascites (HCC) 2021 Esophageal varices in cirrhosis (HCC) 2021 GERD (gastroesophageal reflux disease) HTN, goal below 130/80 08/07/2019 Intestinal obstruction (HCC) 05/09/2012 Iron deficiency anemia Migraine with aura 1977 Undiagnosed cardiac murmurs since Past Surgical History: Procedure Laterality Date ANESTHESIA FOR CAT OR MRI SCAN N/A 08/31/2023 ANESTHESIA FOR NON-INVASIVE IMAGING (MRI OR CT) performed by [facility] In And Out Surgery at [place] [facility] COLONOSCOPY, DIAGNOSTIC (RECTUM) 04/10/2015 adenomatous polyps, repeat 3 yrs/COLONOSCOPY FLEXIBLE PROXIMAL DIAGNOSTIC performed by Lopez Shi MD at ENDOSCOPY [facility] COLONOSCOPY, DIAGNOSTIC (RECTUM) 05/18/2018 adenomatous polyps, diverticulosis, repeat 1yr/COLONOSCOPY FLEXIBLE PROXIMAL DIAGNOSTIC performed by Lopez Shi MD at ENDOSCOPY [facility] COLONOSCOPY, DIAGNOSTIC (RECTUM) 05/30/2019 adenomatous polyps, diverticulosis, repeat 3 yrs / COLONOSCOPY FLEXIBLE PROXIMAL DIAGNOSTIC performed by Lopez Shi MD at ENDOSCOPY [facility] COLONOSCOPY, DIAGNOSTIC (RECTUM) 06/30/2021 1-4mm in rectum, otherwise normal / biopsies normal / 5 year recall / COLONOSCOPY FLEXIBLE PROXIMALDIAGNOSTIC performed by Jena Camargo MD at [facility] EGD, FLEXIBLE, DIAGNOSTIC 05/05/2014 normal bx/ESOPHAGOGASTRODUODENOSCOPY (EGD), FLEXIBLE, TRANSORAL, DIAGNOSTIC performed by Ki Huang MD at [facility] EGD, FLEXIBLE, DIAGNOSTIC 04/11/2016 Schatzki ring, hiatal hernia, gastritis/ESOPHAGOGASTRODUODENOSCOPY (EGD), FLEXIBLE, TRANSORAL, DIAGNOSTIC performed by Ki Huang MD at [facility] EGD, FLEXIBLE, DIAGNOSTIC 01/24/2018 w/ [facility] EGD, FLEXIBLE, DIAGNOSTIC 07/17/2018 normal biopsies/ESOPHAGOGASTRODUODENOSCOPY (EGD), FLEXIBLE, TRANSORAL, DIAGNOSTIC performed by Lopez Shi MD at [facility] EGD, FLEXIBLE, DIAGNOSTIC 07/07/2020 sm hiatal hernia / ESOPHAGOGASTRODUODENOSCOPY (EGD), FLEXIBLE, TRANSORAL, DIAGNOSTIC performed by Lopez Shi MD at [facility] EGD, FLEXIBLE, DIAGNOSTIC 09/03/2021 esophageal varices, repeat 1 yr / ESOPHAGOGASTRODUODENOSCOPY (EGD), FLEXIBLE, TRANSORAL, DIAGNOSTICperformed by Alen Garcia DO at [facility] EGD, FLEXIBLE, DIAGNOSTIC 07/06/2022 Portal hypertensive gastropathy, eso varices, mild-mod inflammation on bx / ESOPHAGOGASTRODUODENOSCOPY (EGD), FLEXIBLE, TRANSORAL, DIAGNOSTIC performed by Lopez Shi MD at [facility] EGD, W/ENDOSCOPIC US 06/26/2018 retained food, repeat study/ESOPHAGOGASTRODUODENOSCOPY (EGD), FLEXIBLE, TRANSORAL, ENDOSCOPIC ULTRASOUND performed by Lopez Shi MD at [facility] EGD, W/ENDOSCOPIC US 07/17/2018 sludge gallbladder/ESOPHAGOGASTRODUODENOSCOPY (EGD), FLEXIBLE, TRANSORAL, ENDOSCOPIC ULTRASOUND performed by Lopez Shi MD at [facility] IR BIOPSY 02/14/2022 LAPAROSCOPY; CHOLECYSTECTOMY MO ARTHRP ACETBLR/PROX FEM PROSTC AGRFT/ALGRFT Left 04/08/2023 REDUCTION OF 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 04/26/2012 Exploratory laparotomy with extensive lysis of adhesions and repair of small bowel serosal REMOVAL OF RUPTURED APPENDIX 1977 Appendectomy, Rupt Appendx+Abscess Family History Problem Relation Name Age of Onset Neurological Disorder Mother Parkisons Parkinsonism Mother Heart Disorder Father [place] in 40's Stroke Father Heart failure Father Dementia Father No Known Problems Brother Kelvin Social History Socioeconomic History Marital status: Single Spouse name: Carmen Number of children: Not on file Years of education: Not on file Highest education level: 12th grade Occupational History 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 Tobacco Use Smoking status: Former Current packs/day: 0.00 Average packs/day: 0.1 packs/day for 20.0 years (2.0 ttl pk-yrs) Types: Cigarettes Start date: 05/10/1995 Quit date: 05/10/2015 Years since quittin.4 Passive exposure: Never Smokeless tobacco: Never Tobacco comments: fiance smokes Vaping Use Vaping status: Never Used Substance and Sexual Activity Alcohol use: Not Currently Comment: 12 pack on the weekends, No ETOH since December 2021 Drug use: No Comment: no caffeine Sexual activity: Yes Partners: Female Other Topics Concern Not on file 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 (Adult - for ages 18 years and over): No Does your family have trouble paying for medicine? (Household - for ages 0-17 years): Not on file Food Insecurity: No Food Insecurity (04/17/2023) Food Insecurity Do you need food for this week? (Adult - for ages 18 years and over): No Are you able to get enough food for your family? (Household - for ages 0-17 years): Not on file Does your family need food this week? (Household - for ages 0-17 years): Not on file Do you always have enough food for your family? (Household - for ages 0-17 years): Not on file Transportation Needs: No Transportation Needs (04/17/2023) Transportation Needs Do you have trouble getting a ride to medical visits or work? (Adult - for ages 18 years and over):Never True Does your family have a hard time getting a ride to doctors visits? (Household - for ages 0-17 years): Not on file Has lack of transportation kept you from medical appointments, meetings, work, or from getting things needed for daily living? Check all that apply. (Adult - for ages 18 years and over): Not on file Do you (or your family) have trouble finding or paying for a ride (transportation)? (Household - for ages 0-17 years): Not on file Social Connections: Socially Integrated (04/17/2023) Social Connections How often do you feel lonely or isolated from those around you? (Adult - for ages 18 years and over): Never Housing Stability: Low Risk (04/17/2023) Housing Stability Do you currently live in a senior living or have no steady place to sleep at night? (Adult - for ages 18 years and over): No Do you think you are at risk of becoming homeless? (Adult - for ages 18 years and over): No Does your family worry about paying for your home or becoming homeless? (Household - for ages 0-17 years): Not on file Are you homeless or worried that you might be in the future? (Adult - for ages 18 years and over): Not on file Are you (or your family) homeless or worried that you might be in the future? (Household - for ages0-17 years): Not on file ROS: Review of Systems Constitutional: Negative. HENT: Negative. Eyes: Negative. Respiratory: Negative. Cardiovascular: Negative. Gastrointestinal: Positive for abdominal distention and diarrhea. Endocrine: Negative. Genitourinary: Negative. Musculoskeletal: Negative. Allergic/Immunologic: Negative. Neurological: Negative. Hematological: Negative. Psychiatric/Behavioral: Negative. All other systems reviewed and are negative. From lactulose PHYSICAL EXAMINATION: Vital Signs: BP 118/60 (BP Site: Right Arm, BP Position: Sitting, BP Cuff Size: Regular) | Pulse 68 | Temp 36.8 C (98.2 F) (Tympanic) | Wt 88.5 kg (195 lb) | SpO2 97% | BMI 28.80 kg/m | BSA 2.08 m EXAM: Constitutional: appearance normally developed, with no deformities Heart sounds are normal Examination of the peripheral vascular system by observation does not reveal varicosity or edema. Palpation reveals normal pulses and temperature Carotid arteries reveal no bruit. NEUROLOGIC EXAMINATION: Appearance: no acute distress Opthalmoscopic: disc flat, normal fundus The patient has intact higher integrative functioning to language, attention to examiner Speech: no dysarthria; Fund is 3/3; Memory is 1/3; He cannot abstract; He is oriented to date but not place Cranial Nerves: CN 2 - no visual defect on confrontation. CN 3, 4, 6 - extra-ocular movements intact and no nystagmus; with round pupils appropriately reactive to light and accomodation CN 5 - facial sensation intact CN 7 - no facial asymmetry CN 8 - intact hearing CN 9, 10 - palate symmetric CN 11 - good shoulder shrug CN 12 - tongue midline Gait and station: Very unsteady requiring one person assist. Coordination: normal finger to nose testing and rapid alternating movements of the lower extremities.A mild of the fingers tremor is seen. There is no asterixis! Sensory: intact to light touch and pain; poor proprioception Muscle Tone: normal Muscle exam:APBs and EHLs 4/5 with loss of foot musculature without pronator drift. Reflexes: Hypoactive in uppers herman in lowers (!) with downgoing toes IMPRESSION / PLAN: This patient clearly has cognitive decline. His [facility] physicians already ordered MRI. I am ordering appropriate blood studies and an EEG. In all likelihood the painful paresthesia of all 4 extremities are due to peripheral neuropathy I am ordering appropriate blood studies and will see what can be done. The patient and his accompanying fiancee recognize that any response at this point (without a livertransplant) would be extremely limited. Many medicines are toxic to the liver or process there through and then would need to be approved by the liver specialists. I will see him back in 2 months hoping to have him on some treatment for the above. Inocente is going to call in the name of his liver specialist so I can share this information. Britni De La Cruz MD documented in this encounter Nursing Notes * Leon Elsagiovanna Moore LPN - 10/10/2023 10:27 AM EDT Chief Complaint Patient presents with Return Neuro Pt stated he is having difficulty walking and experiencing tremors. Pt stated he has pain in his feet and hands documented in this encounter Plan of Treatment Upcoming Encounters Date Type Department Care Team (Latest Contact Info) Description 4 2:00 PM EDT NeuroDiagnostic Study Neurophysiolog y [facility] [place] [address] [facility] [place] [address] Sp, Neurophys Tech [address] [facility] [place] [address] 4 5:40 PM EDT Office Visit [facility] [address] [place] [phone] Toby Paz MD [address] [place] [address] 4 1:04 PM EDT Hospital Encounter OR [facility], Operating Room, [facility] - 4th Floor [address] [place] [address] Ki Huang MD [address] [place] [address] 4 1:04 PM EDT - 4 1:54 PM EDT Surgery OR [facility], Operating Room, [facility] - 4th Floor [address] [place] [address] Ki Huang MD [address] [place] [address] ESOPHAGOGASTRODUODENOSCOPY (EGD), FLEXIBLE, TRANSORAL, DIAGNOSTIC 4 3:40 PM EDT Office Visit Neurology [facility] [place] [address] [place] [address] Britni De La Cruz MD [address] [place] [address] Pending Results Name Type Priority Associated Diagnoses Date /Time MONOCLONAL GAMMOPATHIES SCREENING PANEL Lab Routine Polyneuropathy 10/10/2023 11:34 AM EDT Scheduled Orders Name Type Priority Associated Diagnoses Orde r Schedule EEG ROUTINE Procedures Routine Memory loss Ordered: 10/10/2023 MONOCLONAL GAMMOPATHIES SCREENING PANEL Lab Routine Polyneuropathy Expected: 10/10/2023, Expires: 10/09/2024 Scheduled Procedures Name Priority Associated Diagnoses Date/Ti [...] Procedure Name Priority Date/Time Associated Diagnosis Comments LYME DISEASE ANTIBODY SCREEN Routine 10/10/2023 11:34 AM EDT Polyneuropathy ANTINUCLEAR ANTIBODY (SALLIE) SCREEN, RENEE Routine 10/10/2023 11:34 AM EDT Memory loss Polyneuropathy ANTINUCLEAR ANTIBODY (SALLIE) EIA SCREEN WITH REFLEX AB QUANT Routine 10/10/2023 11:34 AM EDT Memory loss Polyneuropathy LYME DISEASE ANTIBODY SCREEN WITH REFLEX TO CONFIRMATION Routine 10/10/2023 11:34 AM EDT Polyneuropathy ERYTHROCYTE SEDIMENTATION RATE (ESR) Routine 10/10/2023 11:34 AM EDT Polyneuropathy TSH Routine 10/10/2023 11:34 AM EDT Memory loss Polyneuropathy VITAMIN B12 Routine 10/10/2023 11:34 AM EDT Memory loss Polyneuropathy documented in this encounter Results * LYME DISEASE ANTIBODY SCREEN (10/10/2023 11:34 AM EDT) Lyme Disease Antibody Screen Negative Negative 10/11/2023 9:15 AM EDT LABORATORY [facility] Blood Venous blood specimen / Unknown Venipuncture / Unknown 10/10/2023 11:34 AM EDT 10/10/2023 11:35 AM EDT Britni De La Cruz MD LAB BLOOD ORDER [facility] [address] [place] [address] * ANTINUCLEAR ANTIBODY (SALLIE) SCREEN, RENEE (10/10/2023 11:34 AM EDT) SALLIE Screen Negative Negative 10/11/2023 11:40 AM EDT LABORATORY [facility] dsDNA Antibody Interpretation Negative Negative 10/11/2023 11:40 AM EDT LABORATORY [facility] dsDNA Antibody Value 8.8 <20 IU/mL 10/11/2023 11:40 AM EDT LABORATORY [facility] HEMA Antibodies Screen Interpretation Negative Negative 10/11/2023 11:40 AM EDT LABORATORY [facility] HEMA Antibodies Screen Value 0.3 <0.7 Ratio 10/11/2023 11:40 AM EDT LAB[facility]ATORY [facility] Comment: Screening is based on detection of the following antibodies: dsDNA, U1-PHOTOCOMPOSITION KEYBOARD OPERATOR (RNP70, A, C), SS-A/Ro, SS-B / La, Tammy-1, Scl-70, Centromere B proteins and Sm proteins. In conjunction with clinical findings, this can aid in the diagnosis of systemic lupus erythematosous (SLE), mixed connective tissue disease (MCTD), Sjogren's syndrome, scleroderma and polymyositis/dermatomyositis. However, a negative result does not rule out systemic rheumatic or other autoimmune disease. If clinically suspected, further evaluation and testing may be necessary. Please consult with Rheumatology Department. Methodology: Fluorescent Enzyme Immunoassay. Blood Venous blood specimen / Unknown Venipuncture / Unknown 10/10/2023 11:34 AM EDT 10/10/2023 11:35 AM EDT Britni De La Cruz MD LAB BLOOD ORDER [facility] [address] [place] [address] * ERYTHROCYTE SEDIMENTATION RATE (ESR) (10/10/2023 11:34 AM EDT) [facility] ESR 6 <20 mm/hour 10/10/2023 7:57 PM EDT LABORATORY [facility] Blood Venous blood specimen / Unknown Venipuncture / Unknown 10/10/2023 11:34 AM EDT 10/10/2023 11:35 AM EDT Britni De La Cruz MD LAB BLOOD ORDER [facility] [address] [place] [address] * TSH (10/10/2023 11:34 AM EDT) TSH 0.75 0.27 - 4.20 uIU/mL 10/10/2023 9:08 PM EDT LABORATORY [facility] Blood Venous blood specimen / Unknown Venipuncture / Unknown 10/10/2023 11:34 AM EDT 10/10/2023 11:35 AM EDT Britni De La Cruz MD LAB BLOOD ORDER [facility] [address] [place] [address] * VITAMIN B12 (10/10/2023 11:34 AM EDT) Vitamin B12 613 232 - 1,245 pg/mL 10/10/2023 9:08 PM EDT LAB[facility]ATORY [facility] Blood Venous blood specimen / Unknown Venipuncture / Unknown 10/10/2023 11:34 AM EDT 10/10/2023 11:35 AM EDT Britni De La Cruz MD LAB BLOOD ORDER [facility] [address] [place] [address] documented in this encounter Visit Diagnoses Diagnosis Memory loss- Primary Pain in both upper extremities Pain in both lower extremities Polyneuropathy Unspecified hereditary and idiopathic peripheral neuropathy Cirrhosis (HCC) Cirrhosis of liver without mention of alcohol documented in this encounter Care Teams Soil Specialist Relationship Specialty Start Date End Date Toby Paz MD [address] [place] [address] PCP - General Family Medicine 11/25/14 documented as of this encounter"
--- OUTSIDE RECORDS SUMMARY | 2023-11-17 00:03 | External Medical Summary | Summary of Care ---
Author Name Unknown Organization [facility] Address [address] [facility] [address] Phone [phone] Care Team Providers Care Sheet Metal Smith Name Role Phone Toby Paz MD Primary Care Provider +1- [phone] Reason for Visit * Reason Comments Outpatient Testing Encounter Details Date Type Department Care Team (Late st Contact Info) Description 10/10/2023 10:40 AM EDT Laboratory Laboratory [facility] [place] [address] [place] [address] [facility] [address] [facility] [place] [address] Alcoholic cirrhosis of liver with ascites (HCC); [...] Undiagnosed cardiac murmurs 11/29/2001 03/02/2017 Overview: Not Schuyler on 11/29/01 documented as of this encounter (statuses as of 10/10/2023) Immunizations Name Administration Dates Next Due HEP A - Hepatitis A (Adult > 18 yrs) 06/06/2020 Pneumococcal Conjugate Vacci ne, 20-valent ([id number]) 06/24/2022 Seasonal Influenza Virus Vac cine, Unspecified [...] 2:00 PM EDT NeuroDiagnostic Study Neurophysiolog y [facility] [address] [place] [address] Sp, Neurophys Tech [address] [place] [address] 4 5:40 PM EDT Office Visit [facility] [address] [place] [phone] Toby Paz MD [address] [place] [address] 4 1:04 PM EDT Hospital Encounter OR [facility], Operating Room, [facility] - 4th Floor [address] [place] [address] Ki Huang MD [address] [place] [address] 4 1:04 PM EDT - 4 1:54 PM EDT Surgery OR [facility], Operating Room, [facility] - 4th Floor [address] [place] [address] Ki Huang MD [address] [place] [address] ESOPHAGOGASTRODUODENOSCOPY (EGD), FLEXIBLE, TRANSORAL, DIAGNOSTIC 3:40 PM EDT Office Visit Neurology [facility] 200 [facility] [place] [address] Britni De La Cruz MD [address] [place] [address] Pending Results Name Type Priority Associated Diagnoses [...] alcohol documented in this encounter Care Teams Sheet Metal Smith Relationship Specialty Start Date End Date Toby Paz MD [address] [place] [address] PCP - General Family Medicine 11/25/14 documented as of this encounter
--- OUTSIDE RECORDS SUMMARY | 2023-11-17 00:03 | External Medical Summary | Summary of Care ---
Author Name Unknown Organization [facility] Address [address] [place] [address] Phone [phone] Care Team Providers Care Food Mobile Driver Name Role Phone Toby Paz MD Primary Care Provider +1- [phone] Reason for Visit * Reason Onset Date Comments Test Results Lab 10/10/2023 Encounter Details Date Type Department Care Team (Late st Contact Info) Description 10/10/2023 Telephone Gastroenterology, [place] [address], [place] [id number] Services, [facility] [address] [place] [address] Test Results Lab Allergies Active Allergy Reactions [...] Undiagnosed cardiac murmurs 11/29/2001 03/02/2017 Overview: Not [place] on 11/29/01 documented as of this encounter (statuses as of 10/11/2023) Immunizations Name Administration Dates Next Due HEP A - Hepatitis A (Adult > 18 yrs) 06/06/2020 Pneumococcal Conjugate Vacci ne, 20-valent ([id number]) 06/24/2022 Seasonal Influenza Virus Vac cine, Unspecified [...] encounter Miscellaneous Notes * Telephone Encounter - Falguni Ritter LPN - 10/11/2023 8:52 AM EDT Mauro still has not read his [employer] message. Attempted to call, but both his and the alternative contact's number is not in service. * Telephone Encounter - Sandra Patel OSA - 10/10/2023 6:04 PM EDT Lab [facility] to report a critical lab result for patient. Ammonia Level was 135. I notified my it help desk manager Deann Oscar of this call. documented in this encounter Plan of Treatment Upcoming Encounters Date Type Department Care Team (Latest Contact Info) Description 4 2:00 PM EDT NeuroDiagnostic Study Neurophysiolog y [place] [address] [place] [address] Sp, Neurophys Tech [address] [place] [address] 4 5:40 PM EDT [facility] [address] [facility] [phone] Toby Paz MD [address] [facility] [place] [id number] 4 1:04 PM EDT Hospital Encounter OR [facility], Operating Room, [facility] - 4th Floor [address] [place] [address] Ki Huang MD [address] [place] [address] 4 1:04 PM EDT - 4 1:54 PM EDT Surgery OR [facility], Operating Room, [facility] - 4th Floor [address] [place] [address] Ki Huang MD [address] [place] [address] ESOPHAGOGASTRODUODENOSCOPY (EGD), FLEXIBLE, TRANSORAL, DIAGNOSTIC 4 3:40 PM EDT Office Visit Neurology [facility] Katie [place] [address] [place] [address] Britni De La Cruz MD [address] [place] [address] Scheduled Procedures Name Priority Associated Diagnoses Date/Ti [...] filedocumented as of this encounter Care Teams Food Mobile Driver Relationship Specialty Start Date End Date Toby Paz MD [address] [place] [address] PCP - General Family Medicine 11/25/14 documented as of this encounter
--- OUTSIDE RECORDS SUMMARY | 2023-11-17 00:03 | External Medical Summary ---
Author Name Unknown Address Unknown Organization [id number]:[facility] - [address] [place] [phone] Laboratory Report Ordering Provider Test Date Status LIZA LAROSE 10/10/2023 11:37:22 Final Observation Date Value Abnormality Reference (Units) Status Bacteria identified in Specimen by Culture 10/10/2023 11:37:22 No significant growth Final Test: Culture, Urine, Quanti tative
Specimen Source: Urine, Clean Catch
Specimen Type: Urine
Specimen Date: 10/10/2023 1137
Result Date: 10/11/2023 1146
Result Status: Final result
Resulting Lab: [facility]
[address]
[place] [id number]

CULTURE

No significant growth

null Performing Location [facility] - [address] [facility] [address]
--- OUTSIDE RECORDS SUMMARY | 2023-11-17 00:04 | External Medical Summary ---
Author Name Unknown Address Unknown Organization [id number]:[facility] [place] [address] [facility] [place] [address] Laboratory Report Ordering Provider Test Date Status ANDREW COYLE 10/10/2023 11:34:35 Final Observation Date Value Abnormality Reference (Units) Status PARAPROTEIN NORMAL/ABNORMAL 10/10/2023 11:34:35 Normal Normal Final Protein 10/10/2023 11:34:35 6.1 6.0-8.3 (g/dL) Final Albumin/Protein.total [Pure mass fraction] in Serum or Plasma by Electrophoresis 10/10/2023 11:34:35 3.10 Below low normal 3.30-4.40 (g/dL) Final Alpha 1 globulin/Protein.tota l [Pure mass fraction] in Serum or Plasma by Electrophoresis 10/10/2023 11:34:35 0.14 0.10-0.30 (g/dL) Final Alpha 2 globulin/Protein.tota l [Pure mass fraction] in Serum or Plasma by Electrophoresis 10/10/2023 11:34:35 0.67 0.60-1.00 (g/dL) Final Beta globulin/Protein.tota l [Pure mass fraction] in Serum or Plasma by Electrophoresis 10/10/2023 11:34:35 0.52 Below low normal 0.80-1.30 (g/dL) Final Gamma globulin/Protein.tota l [Pure mass fraction] in Serum or Plasma by Electrophoresis 10/10/2023 11:34:35 1.67 0.70-1.70 (g/dL) Final Protein Fractions [Interpretation] in Serum or Plasma by Electrophoresis Narrative 10/10/2023 11:34:35 No paraprotein detected. Final Performing Location [facility] [place] [address] [facility] [place] [address]
--- OUTSIDE RECORDS SUMMARY | 2023-11-17 00:04 | External Medical Summary ---
Author Name Unknown Address Unknown Organization [id number]:[facility] - [address] [place] [address] Laboratory Report Ordering Provider Test Date Status ANDREW COYLE 10/10/2023 11:34:35 Final Observation Date Value Abnormality Reference (Units ) Status TSH 10/10/2023 11:34:35 0.75 0.27-4.20 (uIU/mL) Final Performing Location [facility] - [address] [place] [address]
--- OUTSIDE RECORDS SUMMARY | 2023-11-17 00:04 | External Medical Summary ---
Author Name Unknown Address Unknown Organization [id number]:[facility] - [facility] [place] [address] Laboratory Report Ordering Provider Test Date Status ANDREW COYLE 10/10/2023 11:34:35 Final Observation Date Value Abnormality Reference (Units ) Status Ivyland light chains, Free, Serum 10/10/2023 11:34:35 44.19 Above high normal 3.30-19.40 (mg/L) Final Lambda light chains, free, Serum 10/10/2023 11:34:35 37.20 Above high normal 5.71-26.30 (mg/L) Final KAPPA LAMBDA FLC RATIO 10/10/2023 11:34:35 1.19 0.26-1.65 Final Performing Location LAB[facility]ORY [facility] - [address] [place] [address]
--- OUTSIDE RECORDS SUMMARY | 2023-11-17 00:04 | External Medical Summary ---
Author Name Unknown Address Unknown Organization [id number]:[facility] - [address] [place] [address] Laboratory Report Ordering Provider Test Date Status ALEJANDRA COYLEENZO 10/10/2023 11:34:35 Final Observation Date Value Abnormality Reference (Units) Status PARAPROTEIN NORMAL/ABNORMAL 10/10/2023 11:34:35 Normal Normal Final Immunofixation for Serum or Plasma 10/10/2023 11:34:35 No monoclonal gammopathy detected. Final Performing Location [facility] - [address] [place] [address]
--- OUTSIDE RECORDS SUMMARY | 2023-11-17 00:04 | External Medical Summary | Summary of Care ---
Author Name Unknown Organization [facility] Address [address] [place] [address] Phone [phone] Care Team Providers Care Legal Job Titles Name Role Phone Toby Paz MD Primary Care Provider +1- [phone] Encounter Details Date Type Department Care Team (Late st Contact Info) Description 10/03/2023 Population Health External Data Unspecified Department Allergies Active Allergy Reactions Criticality Noted Date Comments Other Allergy (See Comments) Anaphylaxis High 06/21/2018 Bee stings- swelling documented as of this encounter (statuses as of 10/03/2023) Medications Medication Sig Dispensed Refills Start Date [...] as of this encounter (statuses as of 10/03/2023) Active Problems Problem Noted Date Diagnosed Date [...] as of this encounter (statuses as of 10/03/2023) Resolved Problems Problem Noted Date Diagnosed Date Resolved Date History of alcohol abuse 05/22/2023 Alcohol dependence, uncomplicated 01/17/2023 05/22/2023 Avascular necrosis of bone of hip 05/10/2022 05/22/2023 Chronic alcohol abuse 06/17/20212023 Facial swelling 06/09/2017 08/07/2019 Urticaria 06/09/2017 08/07/2019 Intestinal obstruction 05/09/201203/02 CLASSICAL MIGRAINE WITHOU ME NTION OF INTRACTABLE MIGRAINE 11/29/2001 08/07/2019 Undiagnosed cardiac murmurs 11/29/2001 03/02/2017 Overview: Not [place] on 11/29/01 documented as of this encounter (statuses as of 10/03/2023) Immunizations Name Administration Dates Next Due HEP A - Hepatitis A (Adult > 18 yrs) 06/06/2020 Pneumococcal Conjugate Vacci ne, 20-valent ([id number]) 06/24/2022 Seasonal Influenza Virus Vac cine, Unspecified [...] Interventional [facility], [facility] [address] [place] [address] Ed Causey MD [address] [facility] [place] [address] 10/10/2023 10:40 AM EDT Office Visit Neurology [facility] [address] [facility] [place] [address] Britni De La Cruz MD [address] [facility] [place] [address] 11/21/2023 5:40 PM EDT Office Visit [address] [phone] Toby Paz MD [address] [place] [address] 12/11/2023 1:04 PM EDT Hospital Encounter OR [facility], Operating Room, [facility] - 4th Floor [address] [address] Ki Huang MD [address] [place] [address] 12/11/2023 1:04 PM EDT - 12/11/2023 1:54 PM EDT Surgery OR [facility], Operating Room, [facility] - 4th Floor [address] [place] [address] Ki Huang MD [address] [place] [address] ESOPHAGOGASTRODUODENOSCOPY (EGD), FLEXIBLE, TRANSORAL, DIAGNOSTIC Scheduled Procedures [...] filedocumented as of this encounter Care Teams Legal Job Titles Relationship Specialty Start Date End Date Toby Paz MD [address] [place] [address] PCP - General Family Medicine 11/25/14 documented as of this encounter
--- OUTSIDE RECORDS SUMMARY | 2023-11-17 00:04 | External Medical Summary ---
Author Name Unknown Address Unknown Organization : Laboratory Report Ordering Provider Test Date Status LIZA LAROSE 10/10/2023 11:34:35 Final Observation Date Value Abnormality Reference (Units ) Status PETH 16:0/18:1 (POPETH) 10/10/2023 11:34:35 SEE BELOW Final THE ABOVE TEST WAS PERFORMED ; HOWEVER, ANALYSIS OF THIS
SAMPLE INDICATES A DRUG/CHEMICAL INTERFERENCE WITH THE
ASSAY. WE ARE UNABLE TO REPORT A QUANTITATIVE VALUE. PETH 16:0/18:2 (PLPETH) 10/10/2023 11:34:35 24 Above high normal <20 (ng/mL) Fin al PETH COMMENTS 10/10/2023 11:34:35 SEE BELOW Final See LDT Notes
Notes and Comments
This drug testing is for medical treatment only.
Analysis was performed as non-forensic testing and
these results should be used only by healthcare
providers to render diagnosis or treatment, or to
monitor progress of medical conditions.
LDT Notes:
These tests were developed and their analytical
performance characteristics have been determined
by [employer]. They have not been cleared
or approved by the FDA. These assays have been
validated pursuant to the CLIA regulations and are
used for clinical purposes.
Healthcare Providers needing Interpretation
assistance, please contact us at [phone]
( )M-F, 8am to 10pm EST

Test Performed at:
[facility]
[address]
[place] [address]
Iván Winkler M.D., Ph.D.,Director of Laboratories Performing Location
--- OUTSIDE RECORDS SUMMARY | 2023-11-17 00:04 | External Medical Summary ---
Author Name Unknown Address Unknown Organization [id number]:[facility] [address] Laboratory Report Ordering Provider Test Date Status LIZA LAROSE 10/10/2023 11:34:35 Final Observation Date Value Abnormality Reference (Units ) Status BUN 10/10/2023 11:34:35 12 6-20 (mg/dL) Final Creatinine 10/10/2023 11:34:35 0.8 0.6-1.2 (mg/dL) Final Glomerular filtration rate/1.73 sq M.predicted [Volume Rate/Area] in Serum, Plasma or Blood by Creatinine-based formula (CKD-EPI) 10/10/2023 11:34:35 >90 >=60 (mL/min) Final eGFR is calculated based on the CKD-EPI 2020 equation Sodium 10/10/2023 11:34:35 142 135-146 (m mol/L) Final Potassium 10/10/2023 11:34:35 4.2 3.5-5.1 (m mol/L) Final Cl 10/10/2023 11:34:35 113 Above high normal 98 -107 (mmol/L) Final CO2 10/10/2023 11:34:35 20 Below low normal 22- 32 (mmol/L) Final Anion gap 10/10/2023 11:34:35 9 7-15 (mmol /L) Final Glucose 10/10/2023 11:34:35 82 70-120 (mg /dL) Final Calcium 10/10/2023 11:34:35 9.0 8.4-10.2 ( mg/dL) Final Performing Location [facility] [address] [place] [address]
--- OUTSIDE RECORDS SUMMARY | 2023-11-17 00:04 | External Medical Summary ---
Author Name Unknown Address Unknown Organization K01:[facility]ATORY [place] [address] [facility] [address] Laboratory Report Ordering Provider Test Date Status ANDREW COYLE 10/10/2023 11:34:35 Final Observation Date Value Abnormality Reference (Units ) Status Nuclear IgG Ab [Ratio] in Serum by Immunoassay 10/10/2023 11:34:35 Negative Negative Final DNA double strand Ab [Presence] in Serum 10/10/2023 11:34:35 Negative Negative Final DOUBLE STRANDED DNA VALUE - [facility] 10/10/2023 11:34:35 8.8 <20 (IU/mL) Final Extractable nuclear Ab [Presence] in Serum 10/10/2023 11:34:35 Negative Negative Final Nuclear IgG Ab [Ratio] in Serum by Immunoassay 10/10/2023 11:34:35 0.3 <0.7 (Ratio) Final Screening is based on detect ion of the following antibodies: dsDNA, U1-CONTROL SYSTEM COMPUTER SCIENTIST (RNP70, A, C), SS-A/Ro, SS-B / La, [...] with Rheumatology Department.
Methodology: Fluorescent Enzyme Immunoassay. Performing Location LABORATORY [address] [facility] [address]
--- OUTSIDE RECORDS SUMMARY | 2023-11-17 00:04 | External Medical Summary ---
Author Name Unknown Address Unknown Organization [id number]:[facility]ORY [facility] - [address] [place] [address] Laboratory Report Ordering Provider Test Date Status ANDREW COYLE 10/10/2023 11:34:35 Final Observation Date Value Abnormality Reference (Units ) Status Erythrocyte sedimentation rate by Photometric method 10/10/2023 11:34:35 6 <20 (mm/hour) Final Performing Location [facility] - [address] [place] [address]
--- OUTSIDE RECORDS SUMMARY | 2023-11-17 00:04 | External Medical Summary ---
Author Name Unknown Address Unknown Organization K01:[facility]ORY [facility] - [address] [place] [address] Laboratory Report Ordering Provider Test Date Status ANDREW COYLE 10/10/2023 11:34:35 Final Observation Date Value Abnormality Reference (Units ) Status Vitamin B12 10/10/2023 11:34:35 973 128-5332 (pg/mL) Final Performing Location [facility] - [address] [place] [address]
--- OUTSIDE RECORDS SUMMARY | 2023-11-17 00:04 | External Medical Summary ---
Author Name Unknown Address Unknown Organization K01:[facility] - [address] [place] [address] Laboratory Report Ordering Provider Test Date Status LIZA LAROSE 10/10/2023 11:34:35 Final Observation Date Value Abnormality Reference (Units ) Status Ammonia 10/10/2023 11:34:35 135 Above upper panic limits 11-35 (umol/L) Final Performing Location [facility] - [address] [place] [address]
--- OUTSIDE RECORDS SUMMARY | 2023-11-17 00:04 | External Medical Summary ---
Author Name Unknown Address Unknown Organization K01:[facility] - [address] [place] [address] Laboratory Report Ordering Provider Test Date Status LIZA LAROSE 10/10/2023 11:34:35 Final Observation Date Value Abnormality Reference (Units ) Status PSA 10/10/2023 11:34:35 0.59 <3.10 (ng/ mL) Final Performing Location [facility] - [address] [place] [address]
--- OUTSIDE RECORDS SUMMARY | 2023-11-17 00:04 | External Medical Summary ---
Author Name Unknown Address Unknown Organization K01:[facility] [place] - [address] [place] [address] Laboratory Report Ordering Provider Test Date Status ANDREW COYLE 10/10/2023 11:34:35 Final Observation Date Value Abnormality Reference (Units ) Status Borrelia burgdorferi IgG and IgM [Interpretation] in Serum by Immunoassay 10/10/2023 11:34:35 Negative Negative Final Performing Location [facility] - [address] [place] [address]
--- OUTSIDE RECORDS SUMMARY | 2023-11-17 00:04 | External Medical Summary ---
Author Name Unknown Address Unknown Organization K09:[facility] [place] [address] Laboratory Report Ordering Provider Test Date Status LIZA LAROSE 10/10/2023 11:34:35 Final Warfarin Therapy
INR: 2 .0-3.0 conventional anticoagulation
INR: 2.5- 3.5 high intensity anticoagulation Observation Date Value Abnormality Reference (Units ) Status PT 10/10/2023 11:34:35 18.2 Above high normal 11 .6-15.2 (seconds) Final INR 10/10/2023 11:34:35 1.5 Above high normal 0. 8-1.2 Final Performing Location [facility] [place] [address]
[2023-11-17 05:48] LABS: Hematocrit (blood only) 40.4 % (42.0-52.0); Hemoglobin 13.7 g/dl (14.0-18.0); Mean Corpuscular Hemoglobin 32.3 pg (25.0-34.0); Mean Corpuscular Hgb Conc 33.9 g/dL (32.0-36.0); Mean Corpuscular Volume 95.3 fL (80.0-100.0); Mean Platelet Volume 11.9 fL (9.4-12.4); Platelet Count 38 K/uL (130-400); Red Blood Count 4.24 M/uL (4.70-6.10); White Blood Count 5.36 K/ul (4.8-10.8)
[2023-11-17 06:09] LABS: Albumin Globulin Ratio 1.3 (0.9-2); Albumin Level 3.1 gm/dl (3.4-5.0); BUN Creatinine Ratio 16.1 (10-20); Bilirubin,Total 2.9 mg/dl (0.2-1.0); Calcium 8.4 mg/dl (8.6-10.3); Creatinine Clr Calc Pharmacy 100.6 ml/min; Est GFR (African American) 109.5 ml/min; Est GFR (Non-African American) 94.5 ml/min; Globulin 2.4 gm/dl (2.5-4.0); Magnesium 1.7 mg/dl (1.7-2.4); Total Protein 5.5 gm/dl (6.0-8.3)
[2023-11-17 06:16] LABS: Troponin I High Sensitivity 8.6 pg/ml (0-20)
[2023-11-17 07:15] VITALS: RESP 18
[2023-11-17] MEDS: ATORVASTATIN 20 MG TAB PO SCH (08:04)
[2023-11-17] MEDS: FLUoxetine HCL 10 MG CAP PO SCH (08:04)
[2023-11-17] MEDS: GABAPENTIN 100 MG CAP PO SCH (08:04)
[2023-11-17] MEDS: FERROUS SULFATE 325 MG TAB PO SCH (08:04)
[2023-11-17] MEDS: LACTULOSE SYRUP 30 GM/45 ML UDP PO SCH (12:49)
[2023-11-17 14:57] VITALS: BP 103/58; PULSE 63; TEMP 98.2; O2SAT 96
--- NOTE | 2023-11-17 14:57 | Discharge Summary ---
Discharge Summary Date of Service November 17, 2023 Principal Dx & Hospital Course #1 = Principal Diagnosis (1) Right upper quadrant abdominal pain: (2) Hepatic encephalopathy: (3) Hyperammonemia: (4) Ambulatory dysfunction: Plan Mauro Liu is a 58y/o M with PMHx of dyslipidemia, history of hepatic encephalopathy, HTN, esophageal varices without bleeding, history of ND, AAA, history of TIA, history of alcoholic cirrhosis, GERD with esophagitis, DDD, SBO, chronic thrombocytopenia, history of anemia, history of depression and other problems listed below who presented to the ED for evaluation 2/2 RUQ abdominal pain. RUQ Abdominal Pain Trop WNL at 6.9, CXR negative. UA negative. EKG w/o ischemic changes. Low suspicion for ACS. D-Dimer elevated at 1950 likely ISO cirrhosis, CTA negative for PE. CTAP showing cirrhosis w/ stigmata of portal venous hypertension including splenomegaly w/ abdominal pelvic varicosities and trace ascites. It also revealed scattered colonic air-fluid levels that could either represent diarrheal illness or may be physiologic, no bowel obstruction or pneumoperitoneum. Hepatic Encephalopathy, Hyperammonemia H/O Alcoholic Cirrhosis & Ambulatory Dysfunction [Likely 2/2 encephalopathy] Compliant w/ lactulose therapy at home. Pt following w/ [facility]. Awaiting liver transplant. Ammonia level 98.0, trend in AM. AST 39, ALT 26 and Alk Phos 110. Total bili 2.8 on admission. INR 1.3, unchanged from baseline. Lactulose 30G given in ED. Holding lactulose for now as patient already had 4 doses and ~8 BMs today. Continue Xifaxan 550mg BID. Goal of 3-4 BMs/day. Avoid sedating medications. CMP, ammonia level in AM - follow results. Patient reports being unsteady on his feet, denies any recent falls or trauma. Will proceed with PT/OT consults. Chronic Thrombocytopenia: Plt count 45 on admission, baseline plt count ~40s per chart review. Hgb stable at 14.9, can continue [employer] iron supplementation. HLD: Continue [employer] atorvastatin. Depression: Continue [employer] fluoxetine. H/O Left Total Hip Arthroplasty, DDD: Continue [employer] gabapentin. Plan to hold gabapentin if pt is overtly sleepy 2/2 drowsiness effect. GERD: Continue [employer] pantoprazole. H/O Esophageal Varices Chronic, no overt signs of bleeding. Last upper GI endoscopy performed on 10/18/23 showed grade I esophageal varices and portal hypertensive gastropathy. Patient does report 2 episodes of blackish stools yesterday. Hgb stable. Fecal occult stool pending - follow results. Patient started on IV Protonix BID for now. Trend H/H. H/O Sleeping Issues: Holding [employer] trazodone and PRN Ativan for now 2/2 encephalopathy and concern for drowsiness. DVT Prophylaxis: SCD, JUVENTINO. Chemoprophylaxis C/I with chronic thrombocytopenia. Code Status: FULL CODE Patient was seen at bedside today. He said he feels much much better. Nurses report no confusion. He is taking his lactulose. He is tolerating oral intake. He is ambulating without difficulty. Patient wants to be discharged today. Spoke to the [facility] transplant team and they would like to see him in the follow- up. Patient was discharged today to home in stable condition. PCP: Toby Paz MD Dispo: Admit to Med/Surg + Telemetry Notes For Next Care Provider Medication Changes From Visit o Admission HPI Per Admitting Provider Mauro Liu is a 58y/o M with PMHx of dyslipidemia, history of hepatic encephalopathy, HTN, esophageal varices without bleeding, history of ND, AAA, history of TIA, history of alcoholic cirrhosis, GERD with esophagitis, DDD, SBO, chronic thrombocytopenia, history of anemia, history of depression and other problems listed below who presented to the ED for evaluation /2 RUQ abdominal pain. History obtained from patient, significant other at bedside and associated chart review. Patient reports that he experienced an episode of sharp, stabbing RUQ abdominal pain this morning that only lasted a few minutes. Since then, he has had a dull achy pain in his RUQ abdominal region. He is also tender to palpation in that area of his abdomen as well. Denies any nausea or vomiting. Significant other mentions that he was acting somewhat more "confused" this morning, therefore she can him a double dose of lactulose. He received a total of 3 doses of lactulose prior to arrival and has since then had approximately 8 bowel movements. Patient reports that he feels rather unsteady on his feet, which is unchanged from his previous admission. No recent falls or trauma. Of note, patient was recently admitted back in September here at [facility] 2/2 hepatic encephalopathy and hyperammonemia. Admission Exam Per Admitting Provider General: NAD, appears rather tired, conversing appropriately, A+Ox3, resting comfortably in bed lying down. HEENT: Normocephalic, atraumatic. EOMI, conjunctivae normal, anicteric sclerae, droopy eyelids, oropharynx normal. Respiratory: Normal respiratory effort, lungs clear to auscultation, no wheeze, rales, rhonchi. No accessory muscle use. Cardiovascular: Regular rate, rhythm, no murmur, normal peripheral pulses, no BLE edema. Vessels: No JVD. Abdomen/GI: Normal bowel sounds, soft, mildly tender to palpation in RUQ, no hepatosplenomegaly. Extremities/Musculoskeletal: No cyanosis or clubbing. Gross sensation intact in all extremities, slow with ambulation. Neurologic: Accommodation nl, no face palsy, no dysarthria, CN's II-XI not formally tested but appear intact bilaterally. Skin: No rashes, normal color, warm/dry, mildly jaundiced. Discharge Exam General- adult male seen at bedside. NAD Head- atraumatic Eyes- PERRL, EOMI, anicteric ENT- oropharynx clear Neck- supple, no JVD, no adenopathy, no thyromegaly; carotids +2/2, no bruits appreciated Lungs- clear to auscultation and percussion Heart- regular rhythm; no murmur, no gallop, no rub appreciated Abdomen- normal bowel sounds, soft, nontender, no masses or hepatosplenomegaly Extremities- no pretibial edema, no calf tenderness; peripheral pulses intact Neuro- alert, oriented x 3; PERRL, EOMI; no facial palsy; no dysarthria; motor 5 /5 bilaterally; no cogwheel rigidity; patellar DTRs +2/2; toes downgoing bilaterally; finger to nose intact bilaterally Skin- warm & dry Updated Medication List Medication Instructions Recorded Confirmed Type atorvastatin 20 mg tablet 20 mg PO QAM 01/18/18 11/16/23 History pantoprazole 40 mg tablet,delayed 40 mg PO BID 07/26/18 11/16/23 History release lactulose 10 gram/15 mL oral 20 g PO QID 11/24/21 11/16/23 History solution magnesium oxide 400 mg (241.3 mg 400 mg PO AMHS 11/24/21 11/16/23 History magnesium) tablet gabapentin 100 mg capsule 100 mg PO BID 02/23/22 11/16/23 History rifaximin 550 mg tablet (Xifaxan) 550 mg PO BID 02/23/22 11/16/23 History fluoxetine 10 mg capsule 10 mg PO QAM 01/11/23 11/16/23 History ferrous sulfate 325 mg (65 mg 325 mg PO DAILY 05/11/23 11/16/23 History iron) tablet (iron) trazodone 50 mg tablet 100 mg PO HS 05/11/23 11/16/23 History epinephrine 0.3 mg/0.3 mL 0.3 mg IM DIRECTED PRN Allergic 09/30/23 11/16/23 History injection, auto-injector (EpiPen) Reaction gabapentin 300 mg capsule 300 mg PO HS 09/30/23 11/16/23 History lorazepam 0.5 mg tablet 0.5 mg PO QAM Anxiety 09/30/23 11/16/23 History furosemide 20 mg tablet 20 mg PO DAILY 11/16/23 11/16/23 History Hospital Stay Data Consultations 11/16/23 17:18 ED Decision to Admit Stat Diagnostic Imagining Performed 11/16/23 15:00 CT abd pelvis IV con only Stat CT angio chest PE protocol Stat Laboratory Results WBC 5.36 K/ul (4.8-10.8) 11/17/23 05:30 RBC 4.24 M/uL (4.70-6.10) L 11/17/23 05:30 Hgb 13.7 g/dl (14.0-18.0) L 11/17/23 05:30 POC Hgb 13.9 g/dl (14.0-18.0) L 11/16/23 14:29 Hct 40.4 % (42.0-52.0) L 11/17/23 05:30 POC Hct 41 % (42-52) L 11/16/23 14:29 MCV 95.3 fL (80.0-100.0) 11/17/23 05:30 MCH 32.3 pg (25.0-34.0) 11/17/23 05:30 MCHC 33.9 g/dL (32.0-36.0) 11/17/23 05:30 RDW Std Deviation 53.0 fL (36.4-46.3) H 11/17/23 05:30 RDW Coeff of Fabiola 15.0 % (11.5-14.5) H 11/17/23 05:30 Plt Count 38 K/uL (130-400) L 11/17/23 05:30 MPV 11.9 fL (9.4-12.4) 11/17/23 05:30 Immature Gran % (Auto) 0.3 % 11/16/23 14:16 Neut % (Auto) 60.2 % 11/16/23 14:16 Lymph % (Auto) 20.3 % 11/16/23 14:16 Baca % (Auto) 12.4 % 11/16/23 14:16 Eos % (Auto) 6.2 % 11/16/23 14:16 Baso % (Auto) 0.6 % 11/16/23 14:16 Neut # (Auto) 3.98 K/uL (1.40-6.50) 11/16/23 14:16 Lymph # (Auto) 1.34 K/uL (1.20-3.40) 11/16/23 14:16 Baca # (Auto) 0.82 K/uL (0.11-0.59) H 11/16/23 14:16 Eos # (Auto) 0.41 K/uL (0.00-0.50) 11/16/23 14:16 Baso # (Auto) 0.04 K/uL (0.00-0.20) 11/16/23 14:16 Immature Gran # (Auto) 0.02 K/uL (0.01-0.20) 11/16/23 14:16 PT 14.0 Seconds (9.0-12.0) H 11/16/23 14:16 INR 1.3 (0.9-1.1) H 11/16/23 14:16 APTT 31 Seconds (21-31) 11/16/23 14:16 PTT Ratio 1.2 11/16/23 14:16 D-Dimer 1950 ug/L FEU (0-500) H* 11/16/23 14:16 VBG pH 7.41 (7.36-7.41) 11/16/23 14:16 VBG pCO2 34 mmHg (38-50) L 11/16/23 14:16 VBG pO2 63 mmHg 11/16/23 14:16 VBG HCO3 22 mmol/L 11/16/23 14:16 VBG O2 Saturation 92.1 % 11/16/23 14:16 VBG Base Excess -2.4 mEq/L 11/16/23 14:16 POC Sodium 143 mmol/L (135-144) 11/16/23 14:29 Sodium 140 mmol/L (136-145) 11/17/23 05:30 POC Potassium 3.8 mmol/L (3.3-5.0) 11/16/23 14:29 Potassium 4.0 mmol/L (3.5-5.1) 11/17/23 05:30 POC Chloride 112 mmol/L (101-112) 11/16/23 14:29 Chloride 115 mmol/L (98-107) H 11/17/23 05:30 Carbon Dioxide 21 mmol/L (21-32) 11/17/23 05:30 POC Total CO2 20 mmol/L (24-31) L 11/16/23 14:29 Anion Gap 4 (3-11) 11/17/23 05:30 POC Anion Gap 15.0 mmol/L (16-25) L 11/16/23 14:29 POC BUN 14 mg/dl (7-18) 11/16/23 14:29 BUN 14 mg/dl (6-23) 11/17/23 05:30 Creatinine 0.87 mg/dl (0.6-1.4) 11/17/23 05:30 POC Creatinine 0.9 mg/dl (0.6-1.3) 11/16/23 14:29 Est Cr Clr Drug Dosing 100.6 ml/min 11/17/23 05:30 Est GFR ( Amer) 109.5 ml/min 11/17/23 05:30 Est GFR (Non-Af Amer) 94.5 ml/min 11/17/23 05:30 BUN/Creatinine Ratio 16.1 (10-20) 11/17/23 05:30 Glucose 91 mg/dl (70-99(Fasting)) 11/17/23 05:30 POC Glucose (other) 100 mg/dl (70-99) H 11/16/23 14:29 Calcium 8.4 mg/dl (8.6-10.3) L 11/17/23 05:30 POC Ioniz Calcium Doug 1.22 mmol/l (1.12-1.32) 11/16/23 14:29 Phosphorus 4.0 mg/dl (2.5-4.9) 11/17/23 05:30 Magnesium 1.7 mg/dl (1.7-2.4) 11/17/23 05:30 Total Bilirubin 2.9 mg/dl (0.2-1.0) H 11/17/23 05:30 AST 36 U/L (13-39) 11/17/23 05:30 ALT 22 U/L (7-52) 11/17/23 05:30 Alkaline Phosphatase 95 U/L (34-104) 11/17/23 05:30 Ammonia 63.0 umol/L (18-72) 11/17/23 05:30 Troponin I High Sens 6.7 pg/ml (0-20) 11/17/23 10:10 Total Protein 5.5 gm/dl (6.0-8.3) L 11/17/23 05:30 Albumin 3.1 gm/dl (3.4-5.0) L 11/17/23 05:30 Globulin 2.4 gm/dl (2.5-4.0) L 11/17/23 05:30 Albumin/Globulin Ratio 1.3 (0.9-2) 11/17/23 05:30 Lipase 40 U/L (11-82) 11/16/23 14:16 Urine Color Yellow 11/16/23 16:55 Urine Appearance Clear (Clear) 11/16/23 16:55 Urine pH 6.0 (4.5-7.5) 11/16/23 16:55 Ur Specific Dora > 1.045 (1.000-1.030) H 11/16/23 16:55 Urine Protein Negative (Negative) 11/16/23 16:55 Urine Glucose (UA) Negative (Negative) 11/16/23 16:55 Urine Ketones Negative (Negative) 11/16/23 16:55 Urine Blood Trace (Negative) H 11/16/23 16:55 Urine Nitrite Negative (Negative) 11/16/23 16:55 Urine Bilirubin Negative (Negative) 11/16/23 16:55 Urine Urobilinogen Positive (Negative) H 11/16/23 16:55 Ur Leukocyte Esterase Negative (Negative) 11/16/23 16:55 Urine WBC (Auto) 0-5 /hpf (0-5) 11/16/23 16:55 Urine RBC (Auto) 6-10 /hpf (0-2) H 11/16/23 16:55 U Hyaline Cast (Auto) 0-2 /lpf (0-2) 11/16/23 16:55 U Epithel Cells (Auto) 0-2 /hpf (0-2) 11/16/23 16:55 Urine Bacteria (Auto) None Seen (None Seen) 11/16/23 16:55 Urine Opiates Screen Neg (Neg) 11/16/23 16:55 Ur Methadone, Qual Neg (Neg) 11/16/23 16:55 Urine Fentanyl Screen Neg (Neg) 11/16/23 16:55 Urine Barbiturates Neg (Neg) 11/16/23 16:55 Ur Phencyclidine (PCP) Neg (Neg) 11/16/23 16:55 U Amphetamin/Meth Scrn Neg (Neg) 11/16/23 16:55 MDMA (Ecstasy) Screen Neg (Neg) 11/16/23 16:55 U Benzodiazepines Scrn Neg (Neg) 11/16/23 16:55 Ur Cocaine Metabolite Neg (Neg) 11/16/23 16:55 U Marijuana (THC) Screen Neg (Neg) 11/16/23 16:55 Ethyl Alcohol mg/dL < 10.0 mg/dl (<10.0) 11/16/23 14:39 Blood Type O Positive 11/16/23 14:27 Antibody Screen NEGATIVE 11/16/23 14:27 Impressions Chest X-Ray 11/16/23 14:07 XR chest 1V portable CLINICAL HISTORY: Chest pain. COMPARISON STUDY: Chest CT May 2023 and chest radiograph September 30, 2023. FINDINGS: Lung volumes are normal. Lungs are clear. There is no pneumothorax or pleural effusion. Cardiac size is stable. Mediastinal contours are normal. There is no evidence for pulmonary edema. IMPRESSION: No acute cardiopulmonary findings. ACT 112: Negative or not required by law. Electronically signed by: Hira Cordova M.D. 11/16/2023 2:39 PM Abdomen/Pelvis CT 11/16/23 15:00 CT angio chest PE protocol, CT abd pelvis IV con only CT DOSE: 2245.27 mGy.cm HISTORY: 58 years-old Male with PE. Acute shortness of breath with chest and abdominal pain TECHNIQUE: Multiple CTA images of the chest were obtained after the intravenous administration of 120 ml Optiray. Coronal and sagittal MIPS were obtained from the axial data set and were submitted for review. All measurements were obtained according to NASCET criteria. CT abdomen and pelvis with IV contrast only also obtained. A dose lowering technique was utilized adhering to the principles of ALARA. COMPARISON: CT abdomen and pelvis 06/25/2023, CT chest 05/11/2023 FINDINGS: CTA: Heart is normal in size. Moderate coronary artery calcifications. No thoracic aortic aneurysm. No pulmonary emboli identified. CT CHEST: Unremarkable thyroid. No lymphadenopathy. Gynecomastia. Lungs are clear. No pneumothorax, pleural effusion or airspace consolidation. Minimal subpleural reticulation of the anterior right upper lobe is unchanged suggestive of scar ring scarring/fibrosis. Central airways are patent. Unremarkable soft tissues. No acute fracture. CT ABDOMEN/PELVIS: No free air. Spleen measures 16 cm. Scattered calcified granulomata of the splenic parenchyma. Unremarkable pancreas and adrenal glands. Cholecystectomy. Cirrhotic liver with scattered subcentimeter hypodensities suggestive of cysts redemonstrated. No solid hepatic mass lesions identified. Patent portal vein. Abdominal pelvic varicosities redemonstrated. Bilateral renal sinus cysts. No hydronephrosis. Decompressed urinary bladder with wall thickening. Trace abdominal pelvic ascites. Atherosclerosis of the aorta with infrarenal ectasia, 2.9 x 2.6 cm. Paraesophageal varicosities. Gastric wall thickening with partial distention. No bowel obstruction. Scattered large bowel air-fluid levels. Appendix it is reportedly surgically absent. Postoperative changes of the anterior abdominal wall. Left hip arthroplasty. No acute fracture. IMPRESSION: 1. Unremarkable CTA of the chest. No pulmonary emboli. 2. Cirrhosis with stigmata of portal venous hypertension including splenomegaly with abdominal pelvic varicosities and trace ascites. 3. No bowel obstruction or pneumoperitoneum. 4. Scattered colonic air-fluid levels may be physiologic or represent diarrheal illness. 5. Incidental findings as above. ACT 112: Negative or not required by law. The above report was generated using voice recognition software. It may contain grammatical, syntax or spelling errors. Electronically signed by: Gerardo Brown M.D. 11/16/2023 4:26 PM Chest CTA 11/16/23 15:00 CT angio chest PE protocol, CT abd pelvis IV con only CT DOSE: 2245.27 mGy.cm HISTORY: 58 years-old Male with PE. Acute shortness of breath with chest and abdominal pain TECHNIQUE: Multiple CTA images of the chest were obtained after the intravenous administration of 120 ml Optiray. Coronal and sagittal MIPS were obtained from the axial data set and were submitted for review. All measurements were obtained according to NASCET criteria. CT abdomen and pelvis with IV contrast only also obtained. A dose lowering technique was utilized adhering to the principles of ALARA. COMPARISON: CT abdomen and pelvis 06/25/2023, CT chest 05/11/2023 FINDINGS: CTA: Heart is normal in size. Moderate coronary artery calcifications. No thoracic aortic aneurysm. No pulmonary emboli identified. CT CHEST: Unremarkable thyroid. No lymphadenopathy. Gynecomastia. Lungs are clear. No pneumothorax, pleural effusion or airspace consolidation. Minimal subpleural reticulation of the anterior right upper lobe is unchanged suggestive of scarring scarring/fibrosis. Central airways are patent. Unremarkable soft tissues. No acute fracture. CT ABDOMEN/PELVIS: No free air. Spleen measures 16 cm. Scattered calcified granulomata of the splenic parenchyma. Unremarkable pancreas and adrenal glands. Cholecystectomy. Cirrhotic liver with scattered subcentimeter hypodensities suggestive of cysts redemonstrated. No solid hepatic mass lesions identified. Patent portal vein. Abdominal pelvic varicosities redemonstrated. Bilateral renal sinus cysts. No hydronephrosis. Decompressed urinary bladder with wall thickening. Trace abdominal pelvic ascites. Atherosclerosis of the aorta with infrarenal ectasia, 2.9 x 2.6 cm. Paraesophageal varicosities. Gastric wall thickening with partial distention. No bowel obstruction. Scattered large bowel air-fluid levels. Appendix it is reportedly surgically absent. Postoperative changes of the anterior abdominal w all. Left hip arthroplasty. No acute fracture. IMPRESSION: 1. Unremarkable CTA of the chest. No pulmonary emboli. 2. Cirrhosis with stigmata of portal venous hypertension including splenomegaly with abdominal pelvic varicosities and trace ascites. 3. No bowel obstruction or pneumoperitoneum. 4. Scattered colonic air-fluid levels may be physiologic or represent diarrheal illness. 5. Incidental findings as above. ACT 112: Negative or not required by law. The above report was generated using voice recognition software. It may contain grammatical, syntax or spelling errors. Electronically signed by: Gerardo Brown M.D. 11/16/2023 4:26 PM Pending Results Patient Have Any Pending Studies at Discharge: No Discharge Instructions Given to Patient (Per Discharging Provider) F/U with [facility] Liver transplant team Total Time Total Time Spent Total Time Spent (In Minutes): 45 minutes spent in discharge planning for this patient
--- NOTE | 2023-11-17 15:22 | Electrocardiogram Report ---
Test Reason : Blood Pressure : */* mmHG Vent. Rate : 70 BPM Atrial Rate : 70 BPM P-R Int : 160 ms QRS Dur : 76 ms QT Int : 418 ms P-R-T Axes : 33 19 24 degrees QTcB Int : 451 ms Poor data quality, interpretation may be adversely affected Normal sinus rhythm Normal ECG When compared with ECG of 30-Sep-2023 15:30, Premature ventricular complexes are no longer Present Confirmed by Zay Scott ([id number]) on 11/17/2023 3:22:00 PM Referred By: REFERRED SELF Confirmed By: Zay Scott
--- NOTE | 2023-11-17 15:29 | Electrocardiogram Report ---
Test Reason : Blood Pressure : */* mmHG Vent. Rate : 64 BPM Atrial Rate : 64 BPM P-R Int : 172 ms QRS Dur : 86 ms QT Int : 442 ms P-R-T Axes : 39 23 24 degrees QTcB Int : 455 ms Normal sinus rhythm Normal ECG When compared with ECG of 16-Nov-2023 14:08, (unconfirmed) No significant change was found Confirmed by Zay Scott ([id number]) on 11/17/2023 3:28:48 PM Referred By: REFERRED SELF Confirmed By: Zay Scott
== END 2023-11-17 15:15 | disposition home or self-care (01) | DRG 433 ==
LOC: ED 13:46 → SUATTDRO 18:48 → 2N 18:48

== ENCOUNTER 2024-04-19 23:17 | Inpatient (IN) ==
[2024-04-20 00:34] LABS: Basophils # (auto) 0.02 K/uL (0.00-0.20); Basophils % (auto) 0.3 %; Eosinophils # (auto) 0.33 K/uL (0.00-0.50); Eosinophils % (auto) 4.3 %; Hematocrit (blood only) 41.9 % (42.0-52.0); Hemoglobin 14.6 g/dl (14.0-18.0); Immature Granulocytes # (auto) 0.03 K/uL (0.01-0.20); Immature Granulocytes % (auto) 0.4 %; Lymphocytes # (auto) 0.99 K/uL (1.20-3.40); Mean Corpuscular Hemoglobin 33.3 pg (25.0-34.0); Mean Corpuscular Hgb Conc 34.8 g/dL (32.0-36.0); Mean Corpuscular Volume 95.4 fL (80.0-100.0); Mean Platelet Volume 11.6 fL (9.4-12.4); Monocytes # (auto) 0.66 K/uL (0.11-0.59); Monocytes % (auto) 8.7 %; Neutrophils # (auto) 5.56 K/uL (1.40-6.50); Neutrophils % (auto) 73.3 %; Platelet Count 40 K/uL (130-400); RDW Coefficient of Variation 15.9 % (11.5-14.5); RDW Standard Deviation 55.9 fL (36.4-46.3); Red Blood Count 4.39 M/uL (4.70-6.10); White Blood Count 7.59 K/ul (4.8-10.8)
[2024-04-20 00:47] LABS: Albumin Globulin Ratio 1.2 (0.9-2); Albumin Level 3.3 gm/dl (3.4-5.0); BUN Creatinine Ratio 17.9 (10-20); Calcium 8.3 mg/dl (8.6-10.3); Creatinine Clr Calc Pharmacy 112.2 ml/min; Globulin 2.7 gm/dl (2.5-4.0); Potassium 3.7 mmol/L (3.5-5.1)
[2024-04-20 02:05] LABS: INR 1.2 (0.9-1.1); Prothrombin Time 12.4 Seconds (9.0-12.0)
--- NOTE | 2024-04-20 02:05 | XRay Report ---
EXAM: XR chest 1V portable CLINICAL HISTORY: CHEST PAIN SDM TECHNIQUE: Radiograph of chest was acquired. COMPARISON: 16 November 2023. FINDINGS: Lungs are clear and well-expanded with no pulmonary infiltrate. No pleural effusion is detected. The cardiomediastinal silhouette is within normal limits. No acute osseous abnormality. Rest of the finidngs are unchanged. IMPRESSION: 1. No acute abnormality detected. No interval new finding detected. Electronically signed by Martin Wilkinson 04-20-2024 02:05 AM
--- NOTE | 2024-04-20 02:35 | Emergency Department Note ---
Impression & Plan Acute hepatic encephalopathy, Hyperammonemia, Left axillary pain Admit to the [facility] ED Provider Note NAME: MARLEEN MELTON AGE: 58 SEX: Male INFORMANT: Patient ED PROVIDER(S): Caron Madison DO CHIEF COMPLAINT: confusion and left axillary pain PLAN: Disposition: Admit to the [facility] MEDICAL DECISION MAKING: this is a 58-year-old male patient who presents to the emergency department with increasing confusion over the past 3 days and pain extending from the left flank up in the left axilla. Patient has a history of hepatic encephalopathy. He is followed by hepatology at [facility]. Patient describes taking his lactulose normally but ammonia level is elevated to 152. His notes that he has had increased difficulty with walking and some confusion and that his speech has been off with some stuttering. He presents here primarily for pain in his left axilla and left flank over the past [address] scanning of the chest to further evaluate the location of this pain and this was unremarkable. Other laboratory studies show significant thrombocytopenia which is baseline for the patient with a platelet count of 40. Glucose was 150. Total bilirubin was 2.0. Alk phos was 148 which was normal. Lipase was normal. Troponin was negative. Chest x-ray was unremarkable. Urinalysis showed no signs of urinary tract infection. CT scan of the brain was negative. I discussed the case with the [facility] and they will evaluate for further inpatient care. Care/management discussed with: release manager and [facility] Triage Nursing notes: reviewed and agree with them. Vital Signs: reviewed and remarkable for no significant abnormalities Additional History obtained from: Patient's is at the bedside Chronic Medical/Social Conditions affecting care: Cirrhosis with hepatic encephalopathy Differential Diagnosis: elevated ammonia levels, UTI, intrathoracic pathology Diagnostics, independently interpreted by me: ECG: normal sinus rhythm at a rate of [address] segment elevation or signs of ischemia. There is no ectopy. Cardiac Monitoring: Normal sinus rhythm at a rate of 82 Imaging studies: CT scan of the brain: As per Imbro CT scan of the chest: As per [facility] HPI: 58 year old Male arrives for evaluation of pain in the left axilla. Patient has a history of liver failure from cirrhosis. notes that the patient has become increasingly confused over the past couple days with difficulty walking and slurred speech. Patient complains of increasing pain in the left flank radiating up into the left armpit and down into the left arm. PAST MEDICAL HISTORY: See Below, PAST SURGICAL HISTORY: See Below, SOCIAL HISTORY: See Below, HOME MEDICATIONS: See list ALLERGIES: See list VITALS: See Below PHYSICAL EXAMINATION: General: The patient is slow to answer questions but is oriented to time and place. HEENT: Head - normocephalic and atraumatic. Pupils are equal, round, and reactive to light. Extraocular eye muscles are intact, and sclera are anicteric. Nose - moist nasal mucosa without discharge. Mouth - moist buccal mucosa. Oropharynx is nonerythematous and there is no tonsillar exudate or edema noted. Neck: Supple; no JVD, nuchal rigidity, cervical lymphadenopathy. Chest: There are no skin lesions noted to the left anterior chest wall or in the axilla. There is reproducible discomfort with palpation over the left axilla down into the left flank. Heart: Regular rate and rhythm. There is a normal S1 and S2 with no murmurs, clicks, or gallops appreciated. Lungs: Clear to auscultation bilaterally with no wheezes, rales, or rhonchi. Abdomen: Soft, completely nontender, nondistended, with good bowel sounds. There are no palpable pulsatile masses or hepatosplenomegaly. There is no guarding, rigidity, or rebound noted. Extremities: No evidence of cyanosis or clubbing but there is edema noted in the lower extremities. There are easily palpable peripheral pulses. Skin: warm and dry with good turgor and no rashes. Neuro: Patient is lethargic appearing and falls asleep easily. He is moving all 4 extremities on command. He will wake up to voice and answer questions appropriately. He is oriented. Emergency Department course: The patient was evaluated in room C10. A complete history and physical was performed. An order was placed for continuous cardiac monitoring. Patient is in a normal sinus rhythm at a rate of 82. Twelve-lead EKG was obtained as described above. Patient went for CT scan of the brain and chest as described above. I reviewed the results of the labs and radiograph studies with the patient and his . [facility] and [facility] will evaluate for further inpatient care and treatment of his hepatic encephalopathy. Past Med/Surg History Problem List (Updated 04/21/24 @ 18:42 by Caron Madison DO) Left axillary pain (Acute) Acute hepatic encephalopathy (Acute) Chest discomfort Hepatic encephalopathy (Acute) Atypical chest pain (Acute) Encephalopathy, hepatic (Acute) Depression GERD (gastroesophageal reflux disease) Acute confusion (Acute) Hyperammonemia (Acute) Thrombocytopenia (Acute) Acute hepatic encephalopathy (Acute) History of total left hip replacement (Acute) Bilateral leg pain (Acute) Altered mental status (Acute) Confusion Avascular necrosis of femur Hip pain Ambulatory dysfunction (Acute) Hyperammonemia (Acute) Acute pain of left hip (Acute) Alcoholic cirrhosis Dilated aortic root Acute alteration in mental status (Acute) Thrombocytopenia (Acute) Bilateral arm weakness (Acute) Acute hepatic encephalopathy (Acute) H/O angioedema (Chronic) ongoing, follows with allergy Elevated LFTs (Acute) HTN (hypertension) (Chronic) Acid reflux Abnormal PFT Thrombocytopenia UTI (urinary tract infection) Cirrhosis of liver Cough Encounter for pre-operative examination RUQ pain Insomnia (Chronic) Intractable right upper quadrant abdominal pain (Acute) GERD (gastroesophageal reflux disease) (Chronic) Migraine (Chronic) Medical History History of ascites Acute alteration in mental status Nausea HLD (hyperlipidemia) Hypertension Hyperlipidemia Surgical History History of esophagogastroduodenoscopy (EGD) History of colonoscopy History of bowel resection 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 History of appendectomy History of tooth extraction Family History Father Hearing loss Hypertension Stroke Heart disease Other No pertinent family history in first degree relatives Denies family history of No family history of adverse response to anesthesia No family history of bleeding disorder Allergies Asthma Social History Smoking Status: Former smoker Tobacco Type: Cigarettes Cigarettes Per Day: 1; Second Hand Exposure: No; Do You Dip or Chew Tobacco: No; Hx Alcohol Use: No Hx Substance Use: No Preferred Language: Sierra Leonean Communication Ability: Effective 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: No Beliefs That Will Affect Care: None marital status: Current Living Situation: Spouse and Significant Other Current Living Situation Comment: LIVES WITH GIRLFRIEND 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 Safe at Home: Yes Assistive Devices: None, Cane and Glasses Allergies Allergies Allergy/AdvReac Type Severity Reaction Status Date / Time bee venom protein (honey bee) Allergy Severe Anaphylaxis--CARRIES Verified 11/16/23 17:24 AN EPIPEN Home Meds Home Medications Medication Instructions Recorded Confirmed atorvastatin 20 mg tablet 20 mg PO DAILY 04/20/24 04/20/24 duloxetine 30 mg capsule,delayed 30 mg PO DAILY 04/20/24 04/20/24 release ferrous sulfate 325 mg (65 mg 325 mg PO DAILY 04/20/24 04/20/24 iron) tablet furosemide 40 mg tablet 40 mg PO DAILY 04/20/24 04/20/24 gabapentin 100 mg capsule 100 mg PO TID 04/20/24 04/20/24 gabapentin 300 mg capsule 300 mg PO HS 04/20/24 04/20/24 lactulose 10 gram/15 mL oral 30 ml PO QID 04/20/24 04/20/24 solution lorazepam 0.5 mg tablet 0.5 mg PO DAILY PRN Anxiety 04/20/24 04/20/24 magnesium oxide 400 mg (241.3 mg 400 mg PO BID 04/20/24 04/20/24 magnesium) tablet pantoprazole 40 mg tablet,delayed 40 mg PO BID 04/20/24 04/20/24 release (Protonix) rifaximin 550 mg tablet (Xifaxan) 550 mg PO BID 04/20/24 04/20/24 spironolactone 25 mg tablet 25 mg PO DAILY 04/20/24 04/20/24 trazodone 50 mg tablet 100 mg PO HS 04/20/24 04/20/24 Results & Data (ED) Vital Signs Vital Signs - 24 hr 04/19/24 23:22 04/20/24 00:17 04/20/24 01:00 Temperature 37 C Temperature Source Temporal Artery Scan Pulse Rate 93 H 78 74 Pulse Rhythm Regular Pulse Strength Normal Respiratory Rate 18 22 Respiratory Effort / Characteristics Non-Labored Spontaneous Respiratory Depth Normal Respiratory Pattern Regular Blood Pressure 133/84 140/84 Blood Pressure Mean 100 102 Blood Pressure Position Sitting Pulse Oximetry 96 98 Oxygen Delivery Method Room Air Sepsis Recent Fever Within 48 Hours No Sepsis New/Unexplained Change in Mental Status N/A Sepsis Action Taken by Nursing No Action Required Laboratory Data 04/21/24 05:41 04/21/24 05:41 Lab Results 04/20/24 04/20/24 04/20/24 Range/Units 00:09 01:29 02:21 WBC 7.59 (4.8-10.8) K/ul RBC 4.39 L (4.70-6.10) M/uL Hgb 14.6 (14.0-18.0) g/dl Hct 41.9 L (42.0-52.0) % MCV 95.4 (80.0-100.0) fL MCH 33.3 (25.0-34.0) pg MCHC 34.8 (32.0-36.0) g/dL RDW Std Deviation 55.9 H (36.4-46.3) fL RDW Coeff of Fabiola 15.9 H (11.5-14.5) % Plt Count 40 L (130-400) K/uL MPV 11.6 (9.4-12.4) fL Immature Gran % (Auto) 0.4 % Neut % (Auto) 73.3 % Lymph % (Auto) 13.0 % Crawford % (Auto) 8.7 % Eos % (Auto) 4.3 % Baso % (Auto) 0.3 % Neut # (Auto) 5.56 (1.40-6.50) K/uL Lymph # (Auto) 0.99 L (1.20-3.40) K/uL Crawford # (Auto) 0.66 H (0.11-0.59) K/uL Eos # (Auto) 0.33 (0.00-0.50) K/uL Baso # (Auto) 0.02 (0.00-0.20) K/uL Immature Gran # (Auto) 0.03 (0.01-0.20) K/uL PT 12.4 H (9.0-12.0) Seconds INR 1.2 H (0.9-1.1) Sodium 138 (136-145) mmol/L Potassium 3.7 (3.5-5.1) mmol/L Chloride 113 H (98-107) mmol/L Carbon Dioxide 20 L (21-32) mmol/L Anion Gap 5 (3-11) BUN 14 (6-23) mg/dl Creatinine 0.78 (0.6-1.4) mg/dl Est Cr Clr Drug Dosing 112.2 ml/min eGFR 102.73 BUN/Creatinine Ratio 17.9 (10-20) Glucose 150 H (70-99(Fasting)) mg/dl Calcium 8.3 L (8.6-10.3) mg/dl Total Bilirubin 2.0 H (0.2-1.0) mg/dl AST 93 H (13-39) U/L ALT 49 (7-52) U/L Alkaline Phosphatase 148 H (34-104) U/L Ammonia 152.0 H (18-72) umol/L Troponin I High Sens 10.0 (0-20) pg/ml Total Protein 6.0 (6.0-8.3) gm/dl Albumin 3.3 L (3.4-5.0) gm/dl Globulin 2.7 (2.5-4.0) gm/dl Albumin/Globulin Ratio 1.2 (0.9-2) Lipase 51 (11-82) U/L Urine Color Dark Yellow Urine Appearance Clear (Clear) Urine pH 5.5 (4.5-7.5) Ur Specific Wright 1.025 (1.000-1.030) Urine Protein 1+ H (Negative) Urine Glucose (UA) Negative (Negative) Urine Ketones Trace H (Negative) Urine Blood Trace H (Negative) Urine Nitrite Negative (Negative) Urine Bilirubin 1+ H (Negative) Urine Urobilinogen Positive H (Negative) Ur Leukocyte Esterase Negative (Negative) Urine WBC (Auto) 0-5 (0-5) /hpf Urine RBC (Auto) 11-20 H (0-2) /hpf U Hyaline Cast (Auto) 0-2 (0-2) /lpf U Epithel Cells (Auto) 0-2 (0-2) /hpf Urine Bacteria (Auto) None Seen (None Seen) Urine Mucus Present A (None Prsent) Urine Sperm Present A (None Prsent) Administered Medications Atorvastatin Calcium (Atorvastatin 20 Mg Tab) 20 mg PO DAILY ANNMARIE Stop: 05/20/24 08:59 Last Admin: 04/21/24 07:49 Dose: 20 mg Documented By: Admin: 04/20/24 08:01 Dose: 20 mg Documented By: ML Duloxetine HCl (Duloxetine Hcl 30 Mg Cap) 30 mg PO DAILY ANNMARIE Stop: 05/20/24 08:59 Last Admin: 04/21/24 07:49 Dose: 30 mg Documented By: Admin: 04/20/24 08:01 Dose: 30 mg Documented By: SHEKHAR Furosemide (Furosemide 40 Mg Tab) 40 mg PO QAM ANNMARIE Stop: 05/21/24 08:59 Last Admin: 04/21/24 10:45 Dose: 40 mg Documented By: NICK Gabapentin (Gabapentin 300 Mg Cap) 300 mg PO HS ANNMARIE Stop: 05/20/24 20:59 Last Admin: 04/20/24 21:45 Dose: 300 mg Documented By: NATHANAEL Gabapentin (Gabapentin 100 Mg Cap) 100 mg PO TID ANNMARIE Stop: 05/20/24 08:59 Last Admin: 04/21/24 13:07 Dose: 100 mg Documented By: Admin: 04/21/24 07:49 Dose: 100 mg Documented By: Admin: 04/20/24 21:44 Dose: 100 mg Documented By: Admin: 04/20/24 13:18 Dose: 100 mg Documented By: Admin: 04/20/24 08:03 Dose: 100 mg Documented By: SHEKHAR Lactulose (Lactulose Syrup 30 Gm/45 Ml Udp) 30 gm PO QID ANNMARIE Stop: 05/20/24 08:59 Last Admin: 04/21/24 13:07 Dose: 30 gm Documented By: Admin: 04/21/24 07:50 Dose: 30 gm Documented By: Admin: 04/20/24 21:43 Dose: 30 gm Documented By: Admin: 04/20/24 18:17 Dose: 30 gm Documented By: Admin: 04/20/24 13:18 Dose: 30 gm Documented By: Admin: 04/20/24 08:00 Dose: 30 gm Documented By: SHEKHAR Magnesium Oxide (Magnesium Oxide 400 Mg Tab) 400 mg PO BID ANNMARIE Stop: 05/20/24 08:59 Last Admin: 04/21/24 07:49 Dose: 400 mg Documented By: Admin: 04/20/24 21:46 Dose: 400 mg Documented By: Admin: 04/20/24 08:03 Dose: 400 mg Documented By: SHEKHAR Pantoprazole Sodium (Pantoprazole 40 Mg Tab) 40 mg PO BID ANNMARIE Stop: 05/20/24 08:59 Last Admin: 04/21/24 07:49 Dose: 40 mg Documented By: Admin: 04/20/24 21:46 Dose: 40 mg Documented By: Admin: 04/20/24 08:02 Dose: 40 mg Documented By: SHEKHAR Rifaximin (Rifaximin 550 Mg Tablet) 550 mg PO BID ANNMARIE Stop: 05/20/24 08:59 Last Admin: 04/21/24 07:49 Dose: 550 mg Documented By: Admin: 04/20/24 21:44 Dose: 550 mg Documented By: Admin: 04/20/24 08:03 Dose: 550 mg Documented By: SHEKHAR Spironolactone (Spironolactone 25 Mg Tab) 25 mg PO QAM ANNMARIE Stop: 05/21/24 08:59 Last Admin: 04/21/24 10:45 Dose: 25 mg Documented By: NICK Discontinued Medications Sodium Chloride (Nss) 1,000 mls @ 50 mls/hr IV .Q20H ANNMARIE Stop: 04/21/24 02:59 Last Infusion: 04/21/24 05:19 Dose: Infused Documented By: Admin: 04/20/24 07:54 Dose: 50 mls/hr Documented By: SHEKHAR Ioversol (Optiray 320 100ml) 93 ml IV ONCE ONE Stop: 04/20/24 02:55 Last Admin: 04/20/24 02:55 Dose: 93 ml Documented By: DINORA Lactulose (Lactulose Syrup 30 Gm/45 Ml Udp) 30 gm PO NOW STA Stop: 04/20/24 06:51 Last Admin: 04/20/24 08:00 Dose: Not Given Documented By: SHEKHAR Imaging Data Radiologist's Impression: Chest X-Ray 04/19/24 23:30 EXAM: XR chest 1V portable CLINICAL HISTORY: CHEST PAIN SDM TECHNIQUE: Radiograph of chest was acquired. COMPARISON: 16 November 2023. FINDINGS: Lungs are clear and well-expanded with no pulmonary infiltrate. No pleural effusion is detected. The cardiomediastinal silhouette is within normal limits. No acute osseous abnormality. Rest of the finidngs are unchanged. IMPRESSION: 1. No acute abnormality detected. No interval new finding detected. Electronically signed by Martin Wilkinson 04-20-2024 02:05 AM Discharge Plan Visit Data Chief Complaint: Flank Pain Stated Complaint: [place] UNDER L ARMPIT,SIDE ED Provider: Caron Madison Discharge Problem: Acute hepatic encephalopathy, Hyperammonemia, Left axillary pain Patient Disposition: Admitted As Inpatient Discharge Instructions Interventions: ED Discharge Assessment Last Done: 04/20/24 07:37
[2024-04-20] MEDS: OPTIRAY 320 100ml IV ONE (02:55)
--- OUTSIDE RECORDS SUMMARY | 2024-04-20 03:13 | External Medical Summary | Summary of Care ---
Author Name Unknown Organization [facility] Address [address] [place] [address] Phone [phone] Care Team Providers Care Insert Operator Name Role Phone Rao Ochoa MD Primary Care Provider [phone] Encounter Details Date Type Department Care Team (Late st Contact Info) Description 04/10/2024 Patient Reported Data Patient Survey Ortho [facility] Allergies Active Allergy Reactions Criticality Noted Date Comments Other Allergy (See Comments) Anaphylaxis High 06/21/2018 Bee stings- swelling documented as of this encounter (statuses as of 04/10/2024) Medications Iron (Ferrous Sulfate) 325 (65 Fe) MG Oral Tablet Take by mouth. Active Diclofenac Sodium 1 % External Gel (Voltaren) Apply topically to affected area 2 times a day. Apply to area lateral to left hip 150 g 5 3 Active Gabapentin 100 MG Oral Capsule (Neurontin)Indicat ions:Complaint of paresthesia take 1 capsule by mouth every morning and AT NOON and BEFORE BEDTIME 90 Capsule 5 3 Active Magnesium Oxide -Mg Supplement 400 (240 Mg) MG Oral Tablet (Mag-Ox) take 1 tablet by mouth IN THE MORNING AND BEFORE BEDTIME 180 Tablet 1 3 Active Pantoprazole Sodium 40 MG Oral Tablet Delayed Release (Protonix)Indicati ons:Gastroesophage al reflux disease Take 1 Tablet by mouth in the morning and 1 Tablet before bedtime. 180 Tablet 1 3 Active traZODone HCl 50 MG Oral Tablet (Desyrel)Indicatio ns:Primary insomnia Take 2 Tablets by mouth at bedtime. 180 Tablet 3 4 Active LORazepam 0.5 MG Oral Tablet (Ativan) Take 1 Tablet by mouth every 6 hours as needed. 4 Active Spironolactone 25 MG Oral Tablet (Aldactone) Take 1 Tablet by mouth in the morning. 4 Active EpiPen 2-Dave 0.3 MG/0.3ML Injection Solution Auto-injector For a severe reaction: Place orange end against the outer thigh, press firmly, hold in place for 10 seconds and go to the Emergency room. 2 Each 1 4 Active Zinc Acetate 50 MG Oral Capsule Take by mouth 2 times a day. Active Furosemide 40 MG Oral Tablet (Lasix) Take 1 tab by mouth daily 90 Tablet 1 4 Active rifAXIMin 550 MG Oral Tablet (Xifaxan) take 1 tablet by mouth IN THE MORNING then take 1 tablet by mouth BEFORE BEDTIME 60 Tablet 5 4 Active Gabapentin 300 MG Oral Capsule (Neurontin) Take 1 Capsule by mouth at bedtime. 30 Capsule 5 4 Active Lactulose 10 GM/15ML Oral Solution (Constulose)Indica tions:Hyperammonem ia (HCC) Take 30 mL by mouth in the morning and 30 mL at noon and 30 mL in the evening and 30 mL before bedtime. 946 mL 11 4 Active traMADol HCl 50 MG Oral Tablet (Ultram)Indication s:Avascular necrosis of bone of left hip (HCC),Peripheral polyneuropathy Take 1 Tablet by mouth daily as needed for Pain, Severe. Not more than #15 per month due to liver condition 15 Tablet 4 Active DULoxetine HCl 30 MG Oral Capsule Delayed Release Particles (Cymbalta) Take 1 Capsule by mouth in the morning. Do not cut, crush or chew. 30 Capsule 5 4 Active Atorvastatin Calcium 20 MG Oral Tablet (Lipitor)Indicatio ns:Dyslipidemia Take 1 Tablet by mouth in the morning. 90 Tablet 1 5 Active Hospital, Clinic, or Other Facility Administered Medication Ordered Dose Route Frequency Start Date End Date Status albuterol sulfate (PROVENTIL) (2.5 MG/3ML) 0.083% inhalation solution 2.5 mgIndications:SOB (shortness of breath) 2.5 mg NEBULIZER Q4H PRN 05/10/2018 Act guzman documented as of this encounter (statuses as of 04/10/2024) Active Problems Problem Noted Date Diagnosed Date Hepatic encephalopathy 07/31/2023 S/P hip replacement, left 05/22/2023 Esophageal varices without bleeding 05/22/2023 Avascular necrosis of bone of left hip Hypoproliferative anemia 05/10/2023 DDD (degenerative disc disease), lumbosacral 10/2023 Other intervertebral disc displacement, lumbosac ral region 05/10/2023 Major depressive disorder with single episode Age-related nuclear cataract, bilateral 02/07/20 AAA (abdominal aortic aneurysm) 10/25/2022 Overview (10/25/2022): 3.0 cm AAA noted on MRI Liver 10/18/22 Iron deficiency anemia due to chronic blood loss 07/01/2022 Anemia in other chronic diseases classified else where 06/24/2022 Transient ischemic attack 06/17/2021 Cirrhosis of liver 06/17/2021 History of appendectomy 06/17/2021 Hx SBO 06/17/2021 Subungual hematoma of finger of left hand 2020 Old myocardial infarction 04/13/2020 Thrombocytopenia 04/13/2020 Internal hemorrhoids 04/13/2020 HTN, goal below 130/80 08/07/2019 Steatosis of liver 05/30/2018 Elevated LFTs 12/29/2017 Dyslipidemia 03/02/2017 Angioedema 06/29/2016 Seasonal allergic rhinitis due to pollen 017 Family history of ischemic heart disease 002 Overview (11/29/2001): father had LA's in 40's Gastroesophageal reflux disease with esophagitis documented as of this encounter (statuses as of 04/10/2024) Resolved Problems Problem Noted Date Diagnosed Date Resolved Date History of alcohol abuse 05/22/2023 Alcohol dependence, uncomplicated 01/17/2023 05/22/2023 Avascular necrosis of bone of hip 05/10/2022 05/22/2023 Chronic alcohol abuse 06/17/20212023 Gastro-esophageal reflux dis ease without esophagitis 04/13/2020 01/16/2024 Facial swelling 06/09/2017 08/07/2019 Urticaria 06/09/2017 08/07/2019 Intestinal obstruction 05/09/201203/02 CLASSICAL MIGRAINE WITHOU ME NTION OF INTRACTABLE MIGRAINE 11/29/2001 08/07/2019 Undiagnosed cardiac murmurs 11/29/2001 03/02/2017 Overview (11/29/2001): Not [place] on 11/29/01 documented as of this encounter (statuses as of 04/10/2024) Immunizations Name Administration Dates Next Due HEP A - Hepatitis A (Adult > 18 yrs) 06/06/2020 Pneumococcal Conjugate Vacci ne, 20-valent ([id number]) 06/24/2022 Seasonal Influenza Virus Vac cine, Unspecified Formulation 05/04/2021,01/13/2020,12/18/2018,2017,02/03/2017,12/22/2015,01/14/2015 Seasonal Influenza, PF, 6 M & above, IM , (FluLaval or Fluzone) 12/08/2022,12/14/2021,05/04/2021,2019,12/18/2018,02/01/2018,02/03/2017 Seasonal Influenza, Quadriva lent, No Preserve, IM 12/22/2015,01/14/2015 Seasonal Influenza, Trivalen t, (IIV3), PF, (Fluzone) 01/03/2024 TDAP (age 10 and older)(Boostrix) 02/15/2017 documented [...] Assigned at Male 11/24/2022 1:52 PM EDT Legal Sex Male 7:01 AM EST Gender Identity Male 11/24/2022 1:52 PM EDT Sexual Orientation Straight 08/27/2019 5: 39 PM EDT 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 Answer Date of Assessment Author Yes 08/23/2021 12:08 PM EDT documented as of this encounter Plan of Treatment Upcoming Encounters Date Type Department Care Team (Late st Contact Info) Description 04/23/2024 9:00 AM EST Office Visit Gastroenterology, [facility] [address] [place] [phone] Keyanna Gordon CRNP [address] [place] [phone] 05/29/2024 3:40 PM EST Office Visit Neurology [facility] [address] [place] [address] Britni De La Cruz MD [address] [place] [address] 09/18/2024 3:40 PM EDT Office Visit Gastroenterology, [facility] [address] [place] [address] Ki Huang MD [address] [place] [phone] Scheduled Procedures Name Priority Associated Diagnoses Date/Ti me ESOPHAGOGASTRODUODENOSCOPY ( EGD), FLEXIBLE, TRANSORAL, DIAGNOSTIC Recall Portal hypertensive gastropathy (HCC) Esophageal varices (HCC) COLONOSCOPY FLEXIBLE PROXIMAL DIAGNOSTIC Recall History of colon polyps Health Maintenance Due Date Last Done Comments Cologuard 2009 Fecal Occult Blood Test 2009 Sigmoidoscopy 2009 COVID-19 Vaccine ( season) 2023 Depression Monitoring 04/17/2024 04/17/2023 Colonoscopy 06/30/2024 06/30/2021, 06/03, 05/30/2019, Additional history exists Colorectal Cancer Screening 06/30/2024 GFR 01/02/2025 01/03/2024, 07/0 12/2023, 10/10/2023, Additional history exists Albumin/Creatinine Ratio 07/09/2026 07/10/2023 Diabetes Screening 01/02/2027 01/03/2024, 0 10/10/2023, 09/06/2023, Additional history exists DTap/Tdap Vaccines (2 - Td or Tdap) 02/15/2027 02/15/2017 Pneumococcal Vaccine: 50+ Years Completed 06/24/2022 Zoster Vaccines Discontinued 08/23/2023 Influenza Vaccine (FLU shot) Completed 01/03/2024, 12/08/2022, 12/14/2021, Additional history exists HPV (Gardasil) Vaccine Aged Out No lo nger eligible based on patient's age to complete this topic Hepatitis B Vaccine Discontinued MENINGOCOCCAL (MENACTRA/MENVEO) Aged Out No longer eligible based on patient's age to complete this topic documented as of this encounter Medical Devices Not on filedocumented as of this encounter Care Teams Insert Operator Relationship Specialty Start Date End Date Rao Ochoa MD [address] [facility] [place] [phone] PCP - General Internal Medicine 02/05/24 documented as of this encounter
--- OUTSIDE RECORDS SUMMARY | 2024-04-20 03:13 | External Medical Summary | Summary of Care ---
Author Name Unknown Organization [facility] Address [address] [place] [address] Phone [phone] Care Team Providers [employer] First Officer Name Role Phone Rao Ochoa MD Primary Care Provider [phone] Reason for Visit * Reason Onset Date Comments Medication Refill 04/10/2024 Encounter Details Date Type Department Care Team (Late st Contact Info) Description 04/10/[address] [facility] Ilsa [address] [place] [address] Rao Ochoa MD [address] [facility] [place] [address] Complaint of paresthesia Allergies Active Allergy Reactions Criticality Noted Date Comments Other Allergy (See Comments) Anaphylaxis High 06/21/2018 Bee stings- swelling documented as of this encounter (statuses as of 04/11/2024) Medications Iron (Ferrous Sulfate) 325 (65 Fe) MG Oral Tablet Take by mouth. Active Diclofenac Sodium 1 % External Gel (Voltaren) Apply topically to affected area 2 times a day. Apply to area lateral to left hip 150 g 5 03/29/20 23 Active Magnesium Oxide -Mg Supplement 400 (240 Mg) MG Oral Tablet (Mag-Ox) take 1 tablet by mouth IN THE MORNING AND BEFORE BEDTIME 180 Tablet 1 03/29/20 23 Active Pantoprazole Sodium 40 MG Oral Tablet Delayed Release (Protonix)Indicati ons:Gastroesophage al reflux disease Take 1 Tablet by mouth in the morning and 1 Tablet before bedtime. 180 Tablet 1 03/29/20 23 Active traZODone HCl 50 MG Oral Tablet (Desyrel)Indicatio ns:Primary insomnia Take 2 Tablets by mouth at bedtime. 180 Tablet 3 07/07/19 24 Active LORazepam 0.5 MG Oral Tablet (Ativan) Take 1 Tablet by mouth every 6 hours as needed. 05/11/19 24 Active Spironolactone 25 MG Oral Tablet (Aldactone) Take 1 Tablet by mouth in the morning. 07/07/19 24 Active EpiPen 2-Dave 0.3 MG/0.3ML Injection Solution Auto-injector For a severe reaction: Place orange end against the outer thigh, press firmly, hold in place for 10 seconds and go to the Emergency room. 2 Each 1 08/17/19 24 Active Zinc Acetate 50 MG Oral Capsule Take by mouth 2 times a day. Active Furosemide 40 MG Oral Tablet (Lasix) Take 1 tab by mouth daily 90 Tablet 1 01/02/20 24 Active rifAXIMin 550 MG Oral Tablet (Xifaxan) take 1 tablet by mouth IN THE MORNING then take 1 tablet by mouth BEFORE BEDTIME 60 Tablet 5 01/23/20 24 Active Gabapentin 300 MG Oral Capsule (Neurontin) Take 1 Capsule by mouth at bedtime. 30 Capsule 5 01/26/20 24 Active Lactulose 10 GM/15ML Oral Solution (Constulose)Indica tions:Hyperammonem ia (HCC) Take 30 mL by mouth in the morning and 30 mL at noon and 30 mL in the evening and 30 mL before bedtime. 946 mL 11 02/15/20 24 Active traMADol HCl 50 MG Oral Tablet (Ultram)Indication s:Avascular necrosis of bone of left hip (HCC),Peripheral polyneuropathy Take 1 Tablet by mouth daily as needed for Pain, Severe. Not more than #15 per month due to liver condition 15 Tablet 03/08/20 24 Active DULoxetine HCl 30 MG Oral Capsule Delayed Release Particles (Cymbalta) Take 1 Capsule by mouth in the morning. Do not cut, crush or chew. 30 Capsule 5 03/19/20 24 Active Atorvastatin Calcium 20 MG Oral Tablet (Lipitor)Indicatio ns:Dyslipidemia Take 1 Tablet by mouth in the morning. 90 Tablet 1 04/06/19 25 Active Gabapentin 100 MG Oral Capsule (Neurontin)Indicat ions:Complaint of paresthesia take 1 capsule by mouth every morning and AT NOON and BEFORE BEDTIME 90 Capsule 5 04/11/19 25 Active Gabapentin 100 MG Oral Capsule (Neurontin)Indicat ions:Complaint of paresthesia take 1 capsule by mouth every morning and AT NOON and BEFORE BEDTIME 90 Capsule 5 03/29/20 23 025 Discontin ued(Refil l) Hospital, Clinic, or Other Facility Administered Medication Ordered Dose Route Frequency Start Date End Date Status albuterol sulfate (PROVENTIL) (2.5 MG/3ML) 0.083% inhalation solution 2.5 mgIndications:SOB (shortness of breath) 2.5 mg NEBULIZER Q4H PRN 05/10/2018 Act guzman documented as of this encounter (statuses as of 04/11/2024) Active Problems Problem Noted Date Diagnosed Date [...] heart disease 002 Overview (11/29/2001): father had PR's in 40's Gastroesophageal reflux disease with esophagitis documented as of this encounter (statuses as of 04/11/2024) Resolved Problems Problem Noted Date Diagnosed Date [...] cardiac murmurs 11/29/2001 03/02/2017 Overview (11/29/2001): Not [place] on 11/29/01 documented as of this encounter (statuses as of 04/11/2024) Immunizations Name Administration Dates Next Due HEP A - Hepatitis A (Adult > 18 yrs) 06/06/2020 Pneumococcal Conjugate Vacci ne, 20-valent ([id number]) 06/24/2022 Seasonal Influenza Virus Vac cine, Unspecified [...] 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 Answer Date of Assessment Author Yes 08/23/2021 12:08 PM EDT documented as of this encounter Miscellaneous Notes * Telephone Encounter - Rao Ochoa MD - 04/11/2024 6:42 AM ESTSigned Prescriptions: Disp Refills Gabapentin 100 MG Oral Capsule (Neurontin) 90 Cap*5 Sig: take 1 capsule by mouth every morning and AT NOON and BEFORE BEDTIME Authorizing Provider: RAO OCHOA * Telephone Encounter - Mian Rey, election judge - 04/10/2024 10:06 AM EST Did you pend patient's preferred pharmacy and medication before forwarding?yes Pharmacy: [id number] Pending Prescriptions: Disp Refills Gabapentin 100 MG Oral Capsule (Neurontin)90 Cap*5 Sig: take 1 capsule by mouth every morning and AT NOON and BEFORE BEDTIME Last Visit: 03/08/2024 (in office), Visit date not found (telemedicine) Next Visit: Visit date not found If no future appointments scheduled, and last appointment is greater than a year ago, please schedule patient for a follow-up appointment Last date the medication was ordered: 03/29/2023 Is this request for a controlled substance?No Urine Drug Screen: Results for orders placed or performed in [...] results can be found in Results Review. Patient Phone Numbers mobile [phone] Labs: Lab Results Component Value Date/Time CREAT 1.1 01/03/2024 11:16 AM CREAT 0.85 08/11/2023 08:43 AM CREAT 0.8 04/16/2020 11:06 AM POTASSIUM 4.2 01/03/2024 11:16 AM POTASSIUM 3.6 08/11/2023 08:43 AM POTASSIUM 3.8 02/24/2020 12:06 PM TSH 0.75 10/10/2023 11:34 AM TSH 0.73 06/21/2018 03:01 PM LDL 43 03/31/2023 10:15 AM LDL 78 02/24/2020 12:06 PM LDL NOT APPLICABLE 02/24/2020 12:06 PM LDLCALC 47 08/11/2023 08:43 AM ALT 40 01/03/2024 11:16 AM ALT 31 08/11/2023 08:43 AM ALT 65 (H) 02/24/2020 12:06 PM HGBA1C 5.0 08/11/2023 08:43 AM HGBA1C 5.0 08/11/2023 08:43 AM documented in this encounter Plan of Treatment Upcoming Encounters Date Type Department Care Team (Late st Contact Info) Description 04/23/2024 9:00 AM EST Office Visit Gastroenterology, [facility] [address] [place] [address] Keyanna Gordon CRNP [address] [place] [address] 05/29/2024 3:40 PM EST Office Visit Neurology [facility] [address] [facility] [place] [address] Britni De La Cruz MD [address] [facility] [place] [address] 09/18/2024 3:40 PM EDT Office Visit Gastroenterology, [facility] [address] [place] [address] Ki Huang MD [address] [place] [address] Scheduled Procedures Name Priority Associated Diagnoses Date/Ti [...] Colorectal Cancer Screening 06/30/2024 GFR 01/02/2025 01/03/2024, /12/2023, 10/10/2023, Additional history exists Albumin/Creatinine Ratio 07/09/2026 [...] as of this encounter Visit Diagnoses Diagnosis Complaint of paresthesia documented in this encounter Care Teams International First Officer Relationship Specialty Start Date End Date Rao Ochoa MD [address] [place] [address] PCP - General Internal Medicine 02/05/24 documented as of this encounter
--- OUTSIDE RECORDS SUMMARY | 2024-04-20 03:14 | External Medical Summary | Summary of Care ---
Author Name Unknown Organization [facility] Address [address] [facility] [place] [address] Phone [phone] Care Team Providers Care Cyber Systems Administrator Name Role Phone Rao Ochoa MD Primary Care Provider [phone] Reason for Visit * Reason Comments Follow Up L knee Encounter Details Date Type Department Care Team (Late st Contact Info) Description 04/05/2024 11:00 AM EST Office Visit Orthopaedics [facility] [address] [place] [address] Javi Veloz MD [address] [place] [address] Chronic pain of left knee* Allergies Active Allergy Reactions Criticality Noted Date Comments Other Allergy (See Comments) Anaphylaxis High 06/21/2018 Bee stings- swelling documented as of this encounter (statuses as of 04/05/2024) Medications Iron (Ferrous Sulfate) 325 (65 Fe) MG Oral Tablet Take by mouth. Active Atorvastatin Calcium 20 MG Oral Tablet (Lipitor)Indicatio ns:Dyslipidemia Take 1 Tablet by mouth in the morning. 90 Tablet 1 3 Active Diclofenac Sodium 1 % External [...] or chew. 30 Capsule 5 4 Active Hospital, Clinic, or Other Facility Administered Medication Ordered Dose Route Frequency Start Date End Date Status albuterol sulfate (PROVENTIL) (2.5 MG/3ML) 0.083% inhalation solution 2.5 mgIndications:SOB (shortness of breath) 2.5 mg NEBULIZER Q4H PRN 05/10/2018 Act guzman lidocaine 1% 1 mL - triamcinolone acetonide 40 mg/mL 1 mL inj 2 mLIndications:Chronic pain of left knee 2 mL IJ ONCE 04/05/2024 04/05/2024 Ended documented as of this encounter (statuses as of 04/05/2024) Active Problems Problem Noted Date Diagnosed Date [...] heart disease 002 Overview (11/29/2001): father had HI's in 40's Gastroesophageal reflux disease with esophagitis documented as of this encounter (statuses as of 04/05/2024) Resolved Problems Problem Noted Date Diagnosed Date [...] cardiac murmurs 11/29/2001 03/02/2017 Overview (11/29/2001): Not [place] on 11/29/01 documented as of this encounter (statuses as of 04/05/2024) Immunizations Name Administration Dates Next Due HEP A - Hepatitis A (Adult > 18 yrs) 06/06/2020 Pneumococcal Conjugate Vacci ne, 20-valent ([id number]) 06/24/2022 Seasonal Influenza Virus Vac cine, Unspecified [...] Job Start Date Job End Date 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 Answer Date of Assessment Author Yes 08/23/2021 12:08 PM EDT documented as of this encounter Patient Instructions * Patient Instructions* Javi Veloz MD - 04/05/2024 10:56 AM EST Remember to contact the provider that helps you with your thrombocytopenia so you can potentially progress with the treatments offered by pain management documented in this encounter Progress Notes * Javi Veloz MD - 04/05/2024 10:46 AM EST Mauro Liu [id number] Mauro Liu is a 58 year old male who presents for f/u to [facility] for left knee injury/pain. I saw him originally for this on 03/12/2024 Mauro Liu is here unaccompanied Quality: reviewed and agree with Nursing Notes for HPI elements History: History on 03/12/2024 - NEW Pt PCP referral L knee pain x 4 mos Pt c/o 11/10 pain Xray L knee today However upon discussion is greatest pain begins in his back and radiates the entire way down the leg. He has received a pain management referral from primary care. He denies bowel or bladder incontinence or saddle anesthesia. Since that visit: Fup L knee pain 11/10 Review MRI Pt is unaccompanied MRIs described below. In addition he was seen by pain management an MRI of his lumbar spine also returned. 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 VIC was recommended, however, he was not considered a candidate given his thro mbocytopenia. Patient was informed platelets would have to be more than 100. ROS: ROS per HPI otherwise non-contributory Past Medical History: Diagnosis Date Abdominal pain Alcoholic cirrhosis (HCC) 2020 Cirrhosis of liver with ascites (HCC) 2021 Esophageal varices in cirrhosis (HCC) 2021 GERD (gastroesophageal reflux disease) HTN, goal below 130/80 08/07/2019 Intestinal obstruction (HCC) 05/09/2012 Iron deficiency anemia Migraine with aura 1977 Undiagnosed cardiac murmurs since Family History Problem Relation Name Age of Onset Neurological Disorder Mother Parkisons Parkinsonism Mother Heart Disorder Father HI in 40's Stroke Father Heart failure Father Dementia Father No Known Problems Brother Kelvin Social History Socioeconomic History Marital status: Single Spouse name: Carmen Number of children: Not on file Years of education: Not on file Highest education level: 12th grade Occupational History 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 Tobacco Use Smoking status: Former Current packs/day: 0.00 Average packs/day: 0.1 packs/day for 20.0 years (2.0 ttl pk-yrs) Types: Cigarettes Start date: 05/10/1995 Quit date: 05/10/2015 Years since quittin.9 Passive exposure: Never Smokeless tobacco: Never Tobacco [...] single no children dog- dalmation- [employer] Social Needs Financial Resource Strain: Low Risk (04/17/2023) Financial [...] Stability Do you currently live in a alf or have no steady place to sleep [...] - for ages0-17 years): Not on file Physical Exam Constitutional: Generally well-nourished and in no acute distress Psychiatric: Mood and Affect normal Eyes: EOMI Respiratory: Normal respiratory effort with regular rate and rhythm Cardiovascular: No edema in the affected extremity(s) Knee Exam, Bilateral Inspection: Unremarkable Lower extremity strength testin/5 throughout on the right, regarding the left he was 4/5 with ankle plantar and dorsiflexion, knee flexion and extension and hip flexion Radiology: 04/01/24: MRI L knee FINDINGS Menisci: No appreciable tear or meniscocapsular separation. Cruciate Ligaments: Intact. Collateral Ligaments: Medial collateral ligament is intact. Visualized posterolateral corner complex structures (including the fibular collateral ligament, biceps femoris tendon, and popliteus tendon) are intact. Extensor Mechanism: Quadriceps and patellar tendons are intact. Medial and lateral extensor retinacula are intact. Muscles, Tendons, and Neurovascular Structures: Regional musculature is normal in bulk. Visualized tendons are intact. Visualized portions of the tibial and common peroneal nerves are grossly normal in size and signal intensity. Popliteal vessels are unremarkable. Bone and Cartilage: No fracture, bone lesion, or significant marrow edema. No focal cartilage defect identified. miscellaneous: No significant joint effusion. IMPRESSION IMPRESSION No structural abnormality identified in the left knee 03/13/2024: MRI of the lumbar spine IMPRESSION: Multilevel degenerative changes of the lumbar spine, including [id number] neural foraminal narrowing at L3-L4 and L5-S1 on the left. No significant spinal canal stenosis. Findings are similar to MRI lumbar spine dated 08/31/2023 03/12/2024:4 view x-ray left knee FINDINGS No visible fracture. Alignment is normal. Minimal marginal osteophyte formation with preserved joint spaces. Mild extensor enthesopathy noted. IMPRESSION IMPRESSION No acute findings. Mild osteoarthritis Assessment and Plan: 1) left knee pain This is reason for which the patient was referred. Although I suspect the majority of the patient'ssymptoms are secondary to lumbar pathology/radiculopathy I do think patient may also have a secondary knee issue. Given pain out of proportion to radiographs with palpation, history of AVN of the hipand complex medical history I recommended an MRI That MRI was essentially unremarkable. Patient continues to report radicular type pain but medial knee pain as well. Offered to try intra-articular steroid injection which the patient desired Intra-articular steroid injection performed today 04/05/2024 Note: prior to injection limited aspiration into the syringe performed on the L knee showed straw color joint fluid confirming intra-articular location of needle for injection. Patient also desired to try a brace. Recommended lateral J brace 2) chronic back with radicular left leg pain accompanied by lower extremity weakness High dose prednisone taper prescribed given patient requested something for pain while awaiting in his pain management visit In addition he was seen by pain management an MRI of his lumbar spine also returned. 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 VIC was recommended, however, he was not considered a candidate given his thro mbocytopenia. Patient was informed platelets would have to be more than 100. Patient instructed to contact the provider that helps with his thrombocytopenia so he could potentially progress with the treatments offered through pain management Procedure note (knee injection), Left: Time out: Prior to injection, a time out was called to confirm the administration of appropriate medicine, patient name, procedure and confirm to the best of our ability and knowledge the presence of any necessary risks and benefits. Patient verbalizes understanding. Sterile techinique applied. Skin sterilized with alcohol swab. Knee injected using 1.5 inch, 22 gauge needle. Injected with 1 ml lidocaine 1%, triamcinolone acetonide 40mg/ml 1 ml. Patient tolerated procedure with no significant bleeding or adverse reaction. Patient instructed to call or return to clinic for fever or warmth and redness at injection site for potential infection. Patient also advised as to potential for steroid flare reaction including increased pain and redness at injection site which should be treated with ice and resolve within 24 hours. Note: prior to injection limited aspiration into the syringe performed on the L knee showed straw color joint fluid confirming intra-articular location of needle for injection. Javi Veloz MD Primary Care Sports Medicine Orthopaedics [address] [address] documented in this encounter Nursing Notes * Shellie Medina LPN - 04/05/2024 10:42 AM EST Fup L knee pain 11/10 Review MRI Pt is unaccompanied Celine Antonio LPN documented in this encounter Plan of Treatment Upcoming Encounters Date Type Department Care Team (Late st Contact Info) Description 05/29/2024 3:40 PM EST Office Visit Neurology [facility] [address] [facility] [place] [address] Britni De La Cruz MD [address] [facility] [place] [address] 09/18/2024 3:40 PM EDT Office Visit Gastroenterology, [facility] [address] [place] [address] Ki Huang MD [address] [place] [address] Scheduled Procedures Name Priority Associated Diagnoses Date/Ti [...] as of this encounter Visit Diagnoses Diagnosis Chronic pain of left knee- Primary Pain in joint, lower leg documented in this encounter Administered Medications Inactive Administered Medications - up to 3 most recent administrations Medication Order MAR Action Action Date Dose Rate Site lidocaine 1% 1 mL - triamcinolone acetonide 40 mg/mL 1 mL inj 2 mL 2 mL, Injection, ONCE, On Mon04/05/24 at 1145, For 1 dose, Lidocaine 1% 1mL Triamcinolone Acetonide 40 mg/mL 1 mL (Final concentration = 20 mg/mL) REFRIGERATE and SHAKE WELLIndications:Chronic pain of left knee Given 04/05/2024 11:07 AM EST 2 mL Knee Left documented in this encounter Care Teams Cyber Systems Administrator Relationship Specialty Start Date End Date Rao Ochoa MD [address] [place] [address] PCP - General Internal Medicine 02/05/24 documented as of this encounter
--- OUTSIDE RECORDS SUMMARY | 2024-04-20 03:14 | External Medical Summary | Summary of Care ---
Author Name Unknown Organization [facility] Address [address] [place] [address] Phone [phone] Care Team Providers Care Bsw Name Role Phone Rao Ochoa MD Primary Care Provider [phone] Encounter Details Date Type Department Care Team (Latest Contact Info) Description 03/22/2024 9:25 AM EST - 03/22/2024 11:59 PM EST Hospital Encounter Radiology, [place] [address] [place] [address] Arrived Discharge Disposition: Home - Self Care Allergies Active Allergy Reactions Criticality Noted Date Comments Other Allergy (See Comments) Anaphylaxis High 06/21/2018 Bee stings- swelling documented as of this encounter (statuses as of 03/23/2024) Medications Iron (Ferrous Sulfate) 325 (65 Fe) [...] as of this encounter (statuses as of 03/23/2024) Active Problems Problem Noted Date Diagnosed Date [...] heart disease 002 Overview (11/29/2001): father had [place]'s in 40's Gastroesophageal reflux disease with esophagitis documented as of this encounter (statuses as of 03/23/2024) Resolved Problems Problem Noted Date Diagnosed Date [...] cardiac murmurs 11/29/2001 03/02/2017 Overview (11/29/2001): Not [place] on 11/29/01 documented as of this encounter (statuses as of 03/23/2024) Immunizations Name Administration Dates Next Due HEP A - Hepatitis A (Adult > 18 yrs) 06/06/2020 Pneumococcal Conjugate Vacci ne, 20-valent ([id number]) 06/24/2022 Seasonal Influenza Virus Vac cine, Unspecified [...] 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 Answer Date of Assessment Author Yes 08/23/2021 12:08 PM EDT documented as of this encounter Plan of Treatment Upcoming Encounters Date Type Department Care Team (Late st Contact Info) Description 04/01/2024 7:00 AM EST Imaging Radiology [facility] [address] [facility] [place] [address] 04/05/2024 11:00 AM EST Office Visit Orthopaedics [facility] [place] [address] Javi Veloz MD [address] [facility] [place] [address] 05/29/2024 3:40 PM EST Office Visit Neurology [facility] [address] [place] [address] Britni De La Cruz MD [address] [place] [address] 09/18/2024 3:40 PM EDT Office Visit Gastroenterology, [facility] [address] [place] [address] Ki Huang MD [address] [place] [address] Scheduled Procedures Name Priority Associated Diagnoses Date/Ti me ESOPHAGOGASTRODUODENOSCOPY ( EGD), FLEXIBLE, TRANSORAL, DIAGNOSTIC Recall Portal hypertensive gastropathy (HCC) Esophageal varices (HCC) COLONOSCOPY FLEXIBLE PROXIMAL DIAGNOSTIC Recall History of colon polyps Health Maintenance Due Date Last Done Comments Cologuard 2009 Fecal Occult Blood Test 2009 Sigmoidoscopy 2009 COVID-19 Vaccine ( season) 2023 Depression Monitoring 04/17/2024 04/17/2023 Colonoscopy 06/30/2024 06/30/2021, 03, 05/30/2019, Additional history exists Colorectal Cancer Screening 06/30/2024 GFR 01/02/2025 01/03/2024, 07/0 12/2023, 10/10/2023, Additional history exists Albumin/Creatinine Ratio 07/09/2026 07/10/2023 Diabetes Screening 01/02/2027 01/03/2024, 0 10/10/2023, 09/06/2023, Additional history exists DTap/Tdap Vaccines (2 - Td or Tdap) 02/15/2027 02/15/2017 Pneumococcal Vaccine: Pediatrics (0 to 5 Years) and At-Risk Patients (6 to 64 Years) Completed 06/24/2022 Zoster Vaccines Discontinued 08/23/2023 Influenza [...] Procedure Name Priority Date/Time Associated Diagnosis Comments XR LS SPINE FLEX AND EXT VIEWS ONLY Routine 03/22/2024 9:34 AM EST Low back pain, unspecified back pain laterality, unspecified chronicity, unspecified whether sciatica present documented in this encounter Results * XR LS SPINE FLEX AND EXT VIEWS ONLY (03/22/2024 9:34 AM EST) Anatomical Region Laterality Modality Vertebra, Spine, Lspine Computed Radiography 03/23/2024 12:1 3 PM EST Narrative 03/23/2024 12:11 PM EST EXAM: XR LS SPINE FLEX AND EXT VIEWS ONLY HISTORY: low back pain COMPARISON:- FINDINGS / IMPRESSION: Multilevel degenerative changes of the spine is identified. There ismild disc space narrowing with osteophytes . No acute fracture or subluxation. Questionable pars defect at L5. No dynamic instability Procedure Note Dontae Fu MD - 03/23/2024 EXAM: XR LS SPINE FLEX AND EXT VIEWS ONLY HISTORY: low back pain COMPARISON:- FINDINGS / IMPRESSION: Multilevel degenerative changes of the spine is identified. There ismilddisc space narrowing with osteophytes . No acute fracture or subluxation.Questionable pars defect at L5. No dynamic instability us Karl Kline MD RADIOLOGY (RAD GENERAL) Fi nal Result documented in this encounter Care Teams Bsw Relationship Specialty Start Date End Date Rao Ochoa MD [address] [place] [address] PCP - General Internal Medicine 02/05/24 documented as of this encounter
--- OUTSIDE RECORDS SUMMARY | 2024-04-20 03:14 | External Medical Summary | Summary of Care ---
Author Name Unknown Organization [facility] Address [address] [facility] [place] [address] Phone [phone] Care Team Providers Care Estimation Manager Name Role Phone Rao Ochoa MD Primary Care Provider [phone] Reason for Visit * Reason Comments Follow Up L knee Encounter Details Date Type Department Care Team (Late st Contact Info) Description 04/05/2024 11:00 AM EST Office Visit Orthopaedics [facility] [address] [place] [address] Javi Veloz MD [address] [place] [address] Chronic pain of left knee* Allergies Active Allergy Reactions Criticality Noted Date Comments Other Allergy (See Comments) Anaphylaxis High 06/21/2018 Bee stings- swelling documented as of this encounter (statuses as of 04/08/2024) Medications Iron (Ferrous Sulfate) 325 (65 Fe) MG Oral Tablet Take by mouth. Active Diclofenac Sodium 1 % External Gel (Voltaren) Apply topically to affected area 2 times a day. Apply to area lateral to left hip 150 g 5 03/29/20 23 Active Gabapentin 100 MG Oral Capsule (Neurontin)Indicat ions:Complaint of paresthesia take 1 capsule by mouth every morning and AT NOON and BEFORE BEDTIME 90 Capsule 5 03/29/20 23 Active Magnesium Oxide -Mg [...] mouth in the morning. 90 Tablet 1 03/29/20 23 025 Discontin ued(Refil l) Hospital, [...] as of this encounter (statuses as of 04/08/2024) Active Problems Problem Noted Date Diagnosed Date [...] heart disease 002 Overview (11/29/2001): father had [place]'s in 40's Gastroesophageal reflux disease with esophagitis documented as of this encounter (statuses as of 04/08/2024) Resolved Problems Problem Noted Date Diagnosed Date [...] cardiac murmurs 11/29/2001 03/02/2017 Overview (11/29/2001): Not [place] on 11/29/01 documented as of this encounter (statuses as of 04/08/2024) Immunizations Name Administration Dates Next Due HEP A - Hepatitis A (Adult > 18 yrs) 06/06/2020 Pneumococcal Conjugate Vacci ne, 20-valent ([id number]) 06/24/2022 Seasonal Influenza Virus Vac cine, Unspecified [...] 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: Former Current packs/day: [...] Stability Do you currently live in a jail or have no steady place to sleep [...] degenerative changes of the lumbar spine, including ovam-[id number] neural foraminal narrowing at L3-L4 and L5-S1 [...] Veloz MD Primary Care Sports Medicine Orthopaedics [address] [place] [address] documented in this encounter Nursing Notes * Shellie Medina LPN - 04/05/2024 10:42 AM EST Fup L knee pain 11/10 Review MRI Pt is unaccompanied Celine Antonio LPN documented in this encounter Miscellaneous Notes * Addendum Note - Ena Hansen CMA - 04/08/2024 9:46 AM ESTAddended by: ENA HANSEN on: 04/08/2024 09:46 AM Modules accepted: Orders documented in this encounter Plan of Treatment Upcoming Encounters Date Type Department Care Team (Late st Contact Info) Description 04/23/2024 9:00 AM EST Office Visit Gastroenterology, [facility] [address] [place] [address] Keyanna Gordon CRNP [address] [place] [address] 05/29/2024 3:40 PM EST Office Visit Neurology [facility] 200 [facility] [address] Britni De La Cruz MD 200 [place] [address] 09/18/2024 3:40 PM EDT Office Visit Gastroenterology, [facility] [address] [place] [address] Ki Huang MD [address] [place] [address] Scheduled Procedures Name Priority Associated Diagnoses Date/Ti [...] Colorectal Cancer Screening 06/30/2024 GFR 01/02/2025 01/03/2024, 12/2023, 10/10/2023, Additional history exists Albumin/Creatinine Ratio [...] Left documented in this encounter Care Teams Estimation Manager Relationship Specialty Start Date End Date Rao Ochoa MD [address] [place] [address] PCP - General Internal Medicine 02/05/24 documented as of this encounter
--- OUTSIDE RECORDS SUMMARY | 2024-04-20 03:14 | External Medical Summary | Summary of Care ---
Author Name Unknown Organization [facility] Address [address] [facility] [place] [address] Phone [phone] Care Team Providers Care User Support Specialist Name Role Phone Rao Ochoa MD Primary Care Provider [phone] Reason for Visit * Reason Onset Date Comments Medication Refill 04/06/2024 Encounter Details Date Type Department Care Team (Late st Contact Info) Description 04/06/2024 Refill [facility] Ilsa Staples [address] [place] [address] Kiley Singh MD [address] [facility] [place] [address] Dyslipidemia Allergies Active Allergy Reactions Criticality Noted Date Comments Other Allergy (See Comments) Anaphylaxis High 06/21/2018 Bee stings- swelling documented as of this encounter (statuses as of 04/06/2024) Medications Iron (Ferrous Sulfate) 325 (65 Fe) [...] morning. 90 Tablet 1 04/06/19 25 Active Atorvastatin Calcium 20 MG Oral Tablet [...] as of this encounter (statuses as of 04/06/2024) Active Problems Problem Noted Date Diagnosed Date [...] heart disease 002 Overview (11/29/2001): father had [place]'s in 40's Gastroesophageal reflux disease with esophagitis documented as of this encounter (statuses as of 04/06/2024) Resolved Problems Problem Noted Date Diagnosed Date [...] cardiac murmurs 11/29/2001 03/02/2017 Overview (11/29/2001): Not [place] on 11/29/01 documented as of this encounter (statuses as of 04/06/2024) Immunizations Name Administration Dates Next Due HEP A - Hepatitis A (Adult > 18 yrs) 06/06/2020 Pneumococcal Conjugate Vacci ne, 20-valent ([id number]) 06/24/2022 Seasonal Influenza Virus Vac cine, Unspecified [...] 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 Answer Date of Assessment Author Yes 08/23/2021 12:08 PM EDT documented as of this encounter Miscellaneous Notes * Telephone Encounter - Maurice Fontana [facility] - 04/06/2024 9:59 AM ESTSigned Prescriptions: Disp Refills Atorvastatin Calcium 20 MG Oral Tablet (Li*90 Tab*1 Sig: Take 1 Tablet by mouth in the morning. Authorizing Provider: KILEY SINGH Ordering User: MAURICE DACOSTA * Telephone Encounter - Uziel Goldsmith [facility] - 04/06/2024 9:44 AM EST Did you pend patient's preferred pharmacy and medication before forwarding? Yes Pharmacy: [id number] [place] Pending Prescriptions: Disp Refills Atorvastatin Calcium 20 MG Oral Tablet (L*90 Tab*1 Sig: Take 1 Tablet by mouth in the morning. Last Visit: 03/08/2024 (in office), Visit date not found (telemedicine) Next Visit: Visit date not found If no future appointments scheduled, and last appointment is greater than a year ago, please schedule patient for a follow-up appointment Last date the medication was ordered: 03/29/23 Is this request for a controlled substance?No [...] found in Results Review. Patient Phone Numbers [facility] [phone] Labs: Lab Results Component Value Date/Time CREAT [...] 08:43 AM HGBA1C 5.0 08/11/2023 08:43 AM Thank you, Tam Goldsmith (safety admin assistant) Orthotics Technician III [facility] 04/06/2024, 9:45 AM documented in this encounter Plan of Treatment Upcoming Encounters Date Type Department Care Team (Late st Contact Info) Description 05/29/2024 3:40 PM EST Office Visit Neurology [facility] [address] [facility] [place] [address] Britni De La Cruz MD [address] [facility] [place] [address] 09/18/2024 3:40 PM EDT Office Visit Gastroenterology, [facility] [address] [facility] [place] [address] Ki Huang MD [address] [facility] [place] [address] Scheduled Procedures Name Priority Associated Diagnoses Date/Ti [...] Diagnoses Diagnosis Dyslipidemia Other and unspecified hyperlipidemia documented in this encounter Care Teams User Support Specialist Relationship Specialty Start Date End Date Rao Ochoa MD [address] [place] [address] PCP - General Internal Medicine 02/05/24 documented as of this encounter
--- OUTSIDE RECORDS SUMMARY | 2024-04-20 03:14 | External Medical Summary | Summary of Care ---
Author Name Unknown Organization [facility] Address [address] [facility] [place] [address] Phone [phone] Care Team Providers Care Vocational Placement Specialist Name Role Phone Rao Ochoa MD Primary Care Provider Reason for Visit * Reason Comments Follow Up L knee Encounter Details Date Type Department Care Team (Late st Contact Info) Description 04/05/2024 11:00 AM EST Office Visit Orthopaedics [facility] [address] [place] [address] Javi Veloz MD [address] [place] [address] Chronic pain of left knee* Allergies Active [...] heart disease 002 Overview (11/29/2001): father had DC's in 40's Gastroesophageal reflux [...] cardiac murmurs 11/29/2001 03/02/2017 Overview (11/29/2001): Not [place] on 11/29/01 documented as of this encounter (statuses as of 04/05/2024) Immunizations Name Administration Dates Next Due HEP A - Hepatitis A (Adult > 18 yrs) 06/06/2020 Pneumococcal Conjugate Vacci ne, 20-valent ([id number]) 06/24/2022 Seasonal Influenza Virus Vac cine, Unspecified [...] 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 Tobacco Use Smoking status: Former Current packs/day: [...] Stability Do you currently live in a chcf or have no steady place to sleep [...] degenerative changes of the lumbar spine, including gswh-gq-jfkklwyv neural foraminal narrowing at L3-L4 and L5-S1 [...] Veloz MD Primary Care Sports Medicine Orthopaedics [address] [address] documented in this encounter Nursing Notes * Shellie Medina LPN - 04/05/2024 10:42 AM EST Fup L knee pain 11/10 Review MRI Pt is unaccompanied Celine Antonio LPN documented in this encounter Plan of Treatment Upcoming Encounters Date Type Department Care Team (Late st Contact Info) Description 05/29/2024 3:40 PM EST Office Visit Neurology [facility] [address] [facility] [place] [address] Britni De La Cruz MD [address] [facility] [place] [address] 09/18/2024 3:40 PM EDT Office Visit Gastroenterology, [facility] [address] [place] [address] Ki Huang MD [address] [facility] [place] [address] Scheduled Procedures Name Priority Associated Diagnoses Date/Ti [...] Left documented in this encounter Care Teams Vocational Placement Specialist Relationship Specialty Start Date End Date Rao Ochoa MD [address] [place] [address] PCP - General Internal Medicine 02/05/24 documented as of this encounter
--- OUTSIDE RECORDS SUMMARY | 2024-04-20 03:14 | External Medical Summary | Summary of Care ---
Author Name Unknown Organization [facility] Address [address] [facility] [place] [address] Phone [phone] Care Team Providers Care Manufactured Buildings Repairer Name Role Phone Rao Ochoa MD Primary Care Provider [phone] Reason for Visit * Reason Onset Date Comments Appointment 03/30/2024 Encounter Details Date Type Department Care Team (Late st Contact Info) Description 03/30/[address] [place] [id number] Aisha Barboza, RT (M) Appointment Allergies Active Allergy Reactions Criticality Noted Date Comments Other Allergy (See Comments) Anaphylaxis High 06/21/2018 Bee stings- swelling documented as of this encounter (statuses as of 03/30/2024) Medications Iron (Ferrous Sulfate) 325 (65 Fe) [...] as of this encounter (statuses as of 03/30/2024) Active Problems Problem Noted Date Diagnosed Date [...] heart disease 002 Overview (11/29/2001): father had [place]'s in 40's Gastroesophageal reflux disease with esophagitis documented as of this encounter (statuses as of 03/30/2024) Resolved Problems Problem Noted Date Diagnosed Date [...] cardiac murmurs 11/29/2001 03/02/2017 Overview (11/29/2001): Not [place] on 11/29/01 documented as of this encounter (statuses as of 03/30/2024) Immunizations Name Administration Dates Next Due HEP A - Hepatitis A (Adult > 18 yrs) 06/06/2020 Pneumococcal Conjugate Vacci ne, 20-valent ([id number]) 06/24/2022 Seasonal Influenza Virus Vac cine, Unspecified [...] 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 Answer Date of Assessment Author Yes 08/23/2021 12:08 PM EDT documented as of this encounter Miscellaneous Notes * Telephone Encounter - Aisha Barboza RT (M) - 03/30/2024 9:11 AM EST Name: Mauro Liu Do you have any of the following: Pacemaker, stents, heart valves, aneurysm clips? No Have you ever worked with metal or have you ever gotten metal in your eyes? No Have you had a colonoscopy in the last 30 days? No On dialysis? No Do you have any dermals or body piercing's? No or ? N/A Do you wear an insulin pump or diabetic monitor? No RT Anuel (M) documented in this encounter Plan of Treatment Upcoming Encounters Date Type Department Care Team (Late st Contact Info) Description 04/01/2024 7:00 AM EST Imaging Radiology [address] 132 [facility] [place] [address] 04/05/2024 11:00 AM EST Office Visit Orthopaedics [facility] 132 [facility] [place] [address] Javi Veloz MD 132 [facility] [place] [address] 05/29/2024 3:40 PM EST Office Visit [facility] [place] [address] Britni De La Cruz MD 200 [facility] [place] [address] 09/18/2024 3:40 PM EDT Office Visit Gastroenterology, [facility] [address] [place] [address] Ki Huang MD [address] [place] [address] Scheduled Procedures Name Priority Associated Diagnoses Date/Ti [...] filedocumented as of this encounter Care Teams Manufactured Buildings Repairer Relationship Specialty Start Date End Date Rao Ochoa MD [address] [place] [address] PCP - General Internal Medicine 02/05/24 documented as of this encounter
--- OUTSIDE RECORDS SUMMARY | 2024-04-20 03:15 | External Medical Summary | Summary of Care ---
Author Name Unknown Organization [facility] Address [address] [facility] [address] Phone [phone] Care Team Providers Care Emt Dispatcher Name Role Phone Georgia Ochoa MD Primary Care Provider [phone] Encounter Details Date Type Department Care Team ([facility] st Contact Info) Description 03/19/2024 Telephone [facility] [address] [place] [address] Georgia Ochoa MD [address] [place] [address] Allergies Active Allergy Reactions Criticality Noted Date Comments Other Allergy (See Comments) Anaphylaxis High 06/21/2018 Bee stings- swelling documented as of this encounter (statuses as of 03/19/2024) Medications Iron (Ferrous Sulfate) 325 (65 Fe) MG Oral Tablet Take by mouth. Activ e Atorvastatin Calcium 20 MG Oral Tablet (Lipitor)Indicati ons:Dyslipidemia Take 1 Tablet by mouth in the morning. 90 Tablet 1 023 Active Diclofenac Sodium 1 % External Gel (Voltaren) Apply topically to affected area 2 times a day. Apply to area lateral to left hip 150 g 5 023 Active Gabapentin 100 MG Oral Capsule (Neurontin)Indica tions:Complaint of paresthesia take 1 capsule by mouth every morning and AT NOON and BEFORE BEDTIME 90 Capsule 5 023 Active Magnesium Oxide -Mg Supplement 400 (240 Mg) MG Oral Tablet (Mag-Ox) take 1 tablet by mouth IN THE MORNING AND BEFORE BEDTIME 180 Tablet 1 Active Pantoprazole Sodium 40 MG Oral Tablet Delayed Release (Protonix)Indicat ions:Gastroesopha geal reflux disease Take 1 Tablet by mouth in the morning and 1 Tablet before bedtime. 180 Tablet 1 023 Active Triamcinolone Acetonide 0.1 % External Cream (Aristocort)Indic ations:Psoriasifo rm eczema Apply topically to affected area 2 times a day. To affected area. 60 g 5 024 Active traZODone HCl 50 MG Oral Tablet (Desyrel)Indicati ons:Primary insomnia Take 2 Tablets by mouth at bedtime. 180 Tablet 3 Active LORazepam 0.5 MG Oral Tablet (Ativan) Take 1 Tablet by mouth every 6 hours as needed. Active Spironolactone 25 MG Oral Tablet (Aldactone) Take 1 Tablet by mouth in the morning. Active EpiPen 2-Dave 0.3 MG/0.3ML Injection Solution Auto-injector For a severe reaction: Place orange end against the outer thigh, press firmly, hold in place for 10 seconds and go to the Emergency room. 2 Each 1 Active Zinc Acetate 50 MG Oral Capsule Take by mouth 2 times a day. Active Furosemide 40 MG Oral Tablet (Lasix) Take 1 tab by mouth daily 90 Tablet 1 Active rifAXIMin 550 MG Oral Tablet (Xifaxan) take 1 tablet by mouth IN THE MORNING then take 1 tablet by mouth BEFORE BEDTIME 60 Tablet 5 024 Active Gabapentin 300 MG Oral Capsule (Neurontin) Take 1 Capsule by mouth at bedtime. 30 Capsule 5 024 Active Lactulose 10 GM/15ML Oral Solution (Constulose)Indic ations:Hyperammon emia (HCC) Take 30 mL by mouth in the morning and 30 mL at noon and 30 mL in the evening and 30 mL before bedtime. 946 mL 11 024 Active traMADol HCl 50 MG Oral Tablet (Ultram)Indicatio ns:Avascular necrosis of bone of left hip (HCC),Peripheral polyneuropathy Take 1 Tablet by mouth daily as needed for Pain, Severe. Not more than #15 per month due to liver condition 15 Tablet 12/06/2 024 Active predniSONE 10 MG Oral Tablet (Deltasone) 3 tabs two times per day x 3 days, 2 tabs two times per day x 3 days, 1 tab two times per day x 3 days, 1 tab daily x 3 days 39 Tablet Active Additional Information Patient not taking.Reported on 03/19/2024 DULoxetine HCl 30 MG Oral Capsule Delayed Release Particles (Cymbalta) Take 1 Capsule by mouth in the morning. Do not cut, crush or chew. 30 Capsule 5 Active FLUoxetine HCl 10 MG Oral Capsule (PROzac) Take 1 Capsule by mouth in the morning. 90 Capsule 3 024 2023 Discontinued Hospital, Clinic, or Other Facility Administered Medication Ordered Dose Route Frequency Start Date End Date Status albuterol sulfate (PROVENTIL) (2.5 MG/3ML) 0.083% inhalation solution 2.5 mgIndications:SOB (shortness of breath) 2.5 mg NEBULIZER Q4H PRN 05/10/2018 Act guzman documented as of this encounter (statuses as of 03/19/2024) Active Problems Problem Noted Date Diagnosed Date [...] heart disease 002 Overview (11/29/2001): father had NV's in 40's Gastroesophageal reflux disease with esophagitis documented as of this encounter (statuses as of 03/19/2024) Resolved Problems Problem Noted Date Diagnosed Date [...] cardiac murmurs 11/29/2001 03/02/2017 Overview (11/29/2001): Not [place] on 11/29/01 documented as of this encounter (statuses as of 03/19/2024) Immunizations Name Administration Dates Next Due HEP A - Hepatitis A (Adult > 18 yrs) 06/06/2020 Pneumococcal Conjugate Vacci ne, 20-valent ([id number]) 06/24/2022 Seasonal Influenza Virus Vac cine, Unspecified [...] 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 Answer Date of Assessment Author Yes 08/23/2021 12:08 PM EDT documented as of this encounter Miscellaneous Notes * Addendum Note - Georgia Ochoa MD - 03/19/2024 11:39 AM ESTAddended by: GEORGIA OCHOA on: 03/19/2024 11:39 AM Modules accepted: Orders * Telephone Encounter - Georgia Ochoa MD - 03/19/2024 11:38 AM EST Please stop prozac and switch to cymbalta 30 mg daily And If he tolerates well next a few wks, possibly increase dose to 60 mg soon Pt should update us on medication * Telephone Encounter - Ana Dan LPN - 03/19/2024 11:35 AM EST The patient is aware, and verbalizes an understanding. Patient states that he would to try the Cymbalta. Please advise. * Telephone Encounter - Georgia Ochoa MD - 03/19/2024 11:22 AM EST Discussed with pain medicine Due to low platelet count , related to his liver condition, he is not indicated for spinal injection Wonder if he would like to try cymbalta for depression and pain instead of prozac 10 mg ? documented in this encounter Plan of Treatment Upcoming Encounters Date Type Department Care Team (Late st Contact Info) Description 04/01/2024 7:00 AM EST Imaging Radiology [facility] 1[facility] [address] [place] [address] 04/05/2024 11:00 AM EST Office Visit Orthopaed[facility] [address] [place] [address] Javi Veloz MD [address] [place] [address] 05/29/2024 3:40 PM EST Office Visit Neurology [facility] [address] [facility] [place] [place] [address] Britni De La Cruz MD [address] [facility] [place] [address] 09/18/2024 3:40 PM EDT Office Visit Gastroenterology, [facility] [address] [address] Ki Huang MD [address] [place] [address] Scheduled Procedures Name Priority Associated Diagnoses Date/Ti [...] filedocumented as of this encounter Care Teams Emt Dispatcher Relationship Specialty Start Date End Date Georgia Ochoa MD [address] [place] [address] PCP - General Internal Medicine 02/05/24 documented as of this encounter
--- OUTSIDE RECORDS SUMMARY | 2024-04-20 03:15 | External Medical Summary | Summary of Care ---
Author Name Unknown Organization [facility] Address [address] [facility] [place] [address] Phone [phone] Care Team Providers Care Radio Repairer Domestic Name Role Phone Rao Ochoa MD Primary Care Provider [phone] Reason for Visit * Reason Onset Date Comments Other 03/12/2024 Encounter Details Date Type Department Care Team (Late st Contact Info) Description 03/12/2024 Telephone Orthopaedics [facility] [address] [place] [address] Javi Veloz MD [address] [place] [address] Other Allergies Active Allergy Reactions Criticality Noted Date Comments Other Allergy (See Comments) Anaphylaxis High 06/21/2018 Bee stings- swelling documented as of this encounter (statuses as of 03/12/2024) Medications Iron (Ferrous Sulfate) 325 (65 Fe) [...] before bedtime. 180 Tablet 1 3 Active Triamcinolone Acetonide 0.1 % External Cream (Aristocort)Indica tions:Psoriasiform eczema Apply topically to affected area 2 times a day. To affected area. 60 g 5 4 Active FLUoxetine HCl 10 MG Oral Capsule (PROzac) Take 1 Capsule by mouth in the morning. 90 Capsule 3 4 Active traZODone HCl 50 MG Oral Tablet [...] to liver condition 15 Tablet 4 Active Hospital, Clinic, or Other Facility Administered Medication Ordered Dose Route Frequency Start Date End Date Status albuterol sulfate (PROVENTIL) (2.5 MG/3ML) 0.083% inhalation solution 2.5 mgIndications:SOB (shortness of breath) 2.5 mg NEBULIZER Q4H PRN 05/10/2018 Act guzman documented as of this encounter (statuses as of 03/12/2024) Active Problems Problem Noted Date Diagnosed Date [...] heart disease 002 Overview (11/29/2001): father had [place]'s in 40's Gastroesophageal reflux disease with esophagitis documented as of this encounter (statuses as of 03/12/2024) Resolved Problems Problem Noted Date Diagnosed Date [...] cardiac murmurs 11/29/2001 03/02/2017 Overview (11/29/2001): Not [place] on 11/29/01 documented as of this encounter (statuses as of 03/12/2024) Immunizations Name Administration Dates Next Due HEP A - Hepatitis A (Adult > 18 yrs) 06/06/2020 Pneumococcal Conjugate Vacci ne, 20-valent ([id number]) 06/24/2022 Seasonal Influenza Virus Vac cine, Unspecified [...] Job 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 Answer Date of Assessment Author Yes 08/23/2021 12:08 PM EDT documented as of this encounter Miscellaneous Notes * Telephone Encounter - Thao Agrawal OSA - 03/12/2024 10:17 AM EST Patient is scheduled for mri lumbar 03/13 and is claustrophobic. Please call Medication to [facility] [place]. Patient is aware he will need a driver sales \ documented in this encounter Plan of Treatment Upcoming Encounters Date Type Department Care Team (Late st Contact Info) Description 03/13/2024 6:30 AM EST Imaging Radiology [address] [place] [address] 03/19/2024 10:30 AM EST Office Visit Interventional Pain Center, [facility] [address] [facility] [place] [address] Sita Molina PA-C [address] [place] [address] 04/01/2024 7:00 AM EST Imaging Radiology [address] [facility] [place] [address] 04/05/2024 11:00 AM EST Office Visit Orthopaedics [facility] [address] [facility] [place] [address] Javi Veloz MD [address] [place] [address] 05/29/2024 3:40 PM EST Office Visit Neurology [facility] 200 [facility] [place] [address] Britni De La Cruz MD [address] [facility] [place] [address] Scheduled Procedures Name Priority Associated Diagnoses Date/Ti [...] filedocumented as of this encounter Care Teams Radio Repairer Domestic Relationship Specialty Start Date End Date Rao Ochoa MD [address] [place] [address] PCP - General Internal Medicine 02/05/24 documented as of this encounter
--- OUTSIDE RECORDS SUMMARY | 2024-04-20 03:15 | External Medical Summary | Summary of Care ---
Author Name Unknown Organization [facility] Address [address] [facility] [place] [address] Phone [phone] Care Team Providers Care Putty Maker Name Role Phone Rao Ochoa MD Primary Care Provider [phone] Reason for Referral * Precert (Within 10 days (routine)) - Authorized Specialty Diagnoses / Procedures Referred By Contac t Referred To Contact Radiology Diagnoses Left knee pain Procedures MRI KNEE LEFT WO CONTRAST Javi Veloz MD [address] [place] [address] Phone: tel: fax: Referral ID Status Reason Start Date Expiration Date V isits Requested Visits Authorized [id number] Authorized 03/12/2024 999 999 * Precert (Within 10 days (routine)) - Authorized Specialty Diagnoses / Procedures Referred By Contac t Referred To Contact Radiology Diagnoses Chronic left-sided low back pain with left-sided sciatica Procedures MRI L SPINE WO CONTRAST Javi Veloz MD [address] [place] [address] Phone: tel: fax: Referral ID Status Reason Start Date Expiration Date V isits Requested Visits Authorized [id number] Authorized 03/12/2024 999 999 Reason for Visit * Reason Comments NEW PATIENT Knee Pain L knee * Evaluate & Treat - Unlimited Visits (Within 10 days (routine)) - Authorized Specialty Diagnoses / Procedures Referred By Contac t Referred To Contact Orthopaedic Surgery / Orthopedics Diagnoses Chronic pain of left knee Rao Ochoa MD [address] [place] [address] Phone: tel: fax: Referral ID Status Reason Start Date Expiration Date Visits Requested Visits Authorized [id number] Authorized Specialty Services Required 03/08/2024 999 999 Encounter Details Date Type Department Care Team (Late st Contact Info) Description 03/12/2024 9:00 AM EST Office Visit Orthopaedics [facility] [address] [place] [address] Javi Veloz MD [address] [place] [address] Chronic pain of left knee*; Chronic left-sided low back pain with left-sided sciatica Allergies Active Allergy Reactions Criticality Noted Date [...] mouth in the morning. 4 Active EpiPen 2-Adve 0.3 MG/0.3ML Injection Solution Auto-injector For a [...] to liver condition 15 Tablet 4 Active predniSONE 10 MG Oral Tablet (Deltasone) 3 tabs two times per day x 3 days, 2 tabs two times per day x 3 days, 1 tab two times per day x 3 days, 1 tab daily x 3 days 39 Tablet 4 Active Hospital, Clinic, or Other [...] heart disease 002 Overview (11/29/2001): father had PA's in 40's Gastroesophageal reflux [...] cardiac murmurs 11/29/2001 03/02/2017 Overview (11/29/2001): Not [place] on 11/29/01 documented as of this encounter (statuses as of 03/12/2024) Immunizations Name Administration Dates Next Due HEP A - Hepatitis A (Adult > 18 yrs) 06/06/2020 Pneumococcal Conjugate Vacci ne, 20-valent ([id number]) 06/24/2022 Seasonal Influenza Virus Vac cine, Unspecified [...] 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 Answer Date of Assessment Author Yes 08/23/2021 12:08 PM EDT documented as of this encounter Progress Notes * Javi Veloz MD - 03/12/2024 9:00 AM EST Mauro Liu [id number] Mauro Liu is a 58 year old male who presents for consultation to [facility] for left knee injury/pain. Consult requested by Rao Ochoa MD. Mauro Liu is here unaccompanied Quality: reviewed and agree with Nursing Notes for HPI elements History: History - NEW Pt PCP referral L knee pain x 4 mos Pt c/o 11/10 pain Xray L knee today However upon discussion is greatest pain begins in his back and radiates the entire way down the leg. He has received a pain management referral from primary care. He denies bowel or bladder incontinence or saddle anesthesia. 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 Tobacco Use Smoking status: Former Current packs/day: 0.00 Average packs/day: 0.1 packs/day for 20.0 years (2.0 ttl pk-yrs) Types: Cigarettes Start date: 05/10/1995 Quit date: 05/10/2015 Years since quittin.8 Passive exposure: Never Smokeless tobacco: Never Tobacco [...] Stability Do you currently live in a prison or have no steady place to sleep [...] affected extremity(s) Knee Exam, Bilateral Inspection: Unremarkable Alignment: Normal Bilateral Effusion: Negative Bilateral Palpation: Significantly tender to palpate along both medial lateral joints ROM: Flexion/Neutral/Extension: L - 120/0/0 Special Tests: Crepitus - negative Hip exam, bilateral: passive internal and external rotation reproduces no pain. Full ROM B/L Lower extremity strength testin/5 throughout on the right, regarding the left he was 4/5 with ankle plantar and dorsiflexion, knee flexion and extension and hip flexion Radiology: 03/12/2024:4 view x-ray left knee Mild patellofemoral degenerative changes - per my interpretation. Awaiting formal radiology interpretation. Assessment and Plan: 1) left knee pain This is reason for which the patient was referred. Although I suspect the majority of the patient'ssymptoms are secondary to lumbar pathology/radiculopathy I do think patient may also have a secondary knee issue. Given pain out of proportion to radiographs with palpation, history of AVN of the hipand complex medical history I recommended an MRI Patient will follow up in the office least 3 days after the MRI 2) chronic back with radicular left leg pain accompanied by lower extremity weakness High dose prednisone taper prescribed given patient requested something for pain while awaiting in his pain management visit X-rays obtained today did show degenerative changes in the lumbar spine MRI of the lumbar spine ordered To keep his pending pain management visit which is scheduled in 7 days. Referral was placed by his primary care physician. Javi Veloz MD Primary Care Sports Medicine Orthopaedics [facility] [address] [place] [address] documented in this encounter Nursing Notes * Shellie Medina LPN - 03/12/2024 9:12 AM EST NEW Pt PCP referral L knee pain x 4 mos Pt c/o 11/10 pain Xray L knee today Pt is unaccompanied Celine Antonio LPN documented in this encounter Plan of Treatment Upcoming Encounters Date Type Department Care Team (Late st Contact Info) Description 03/13/2024 6:30 AM EST Imaging Radiology [address] [facility] [place] [address] 03/19/2024 10:30 AM EST Office Visit Interventional Pain Center, [facility] [address] [place] [address] Sita Molina PA-C [address] [place] [address] 04/01/2024 7:00 AM EST Imaging Radiology [address] [place] [address] 04/05/2024 11:00 AM EST Office Visit Orthopaedics [facility] [address] [place] [address] Javi Veloz MD [address] [place] [address] 05/29/2024 3:40 PM EST Office Visit [facility] [address] [facility] [place] [address] Britni De La Cruz MD [address] [facility] [place] [address] Pending Results Name Type Priority Associated Diagnoses Date /Time XR KNEE 4 OR MORE VIEWS Medical Imaging Routine Chronic pain of left knee 03/12/2024 9:45 AM EST XR L SPINE MINIMUM 4 VIEWS Medical Imaging Routine Chronic left-sided low back pain with left-sided sciatica 03/12/2024 9:56 AM EST Scheduled Orders Name Type Priority Associated Diagnoses Orde r Schedule MRI L SPINE WO CONTRAST Medical Imaging Routine Chronic left-sided low back pain with left-sided sciatica Expected: 03/12/2024, Expires: 04/12/2025 MRI KNEE LEFT WO CONTRAST Medical Imaging Routine Chronic pain of left knee Expected: 03/12/2024, Expires: 04/12/2025 Scheduled Procedures Name Priority Associated Diagnoses Date/Ti [...] knee- Primary Pain in joint, lower leg Chronic left-sided low back pain with left-sided sciatica documented in this encounter Care Teams Putty Maker Relationship Specialty Start Date End Date Rao Ochoa MD [address] [facility] [place] [address] PCP - General Internal Medicine 02/05/24 documented as of this encounter
--- OUTSIDE RECORDS SUMMARY | 2024-04-20 03:15 | External Medical Summary | Summary of Care ---
Author Name Unknown Organization [facility] Address [address] [facility] [address] Phone [phone] Care Team Providers Care Operations Research Director Name Role Phone Georgia Ochoa MD Primary Care Provider [phone] Encounter Details Date Type Department Care Team ([facility] st Contact Info) Description 03/19/2024 Telephone [facility] [address] [place] [address] Georgia Ochoa MD [address] [place] [address] Allergies Active Allergy Reactions Criticality Noted Date Comments Other Allergy (See Comments) Anaphylaxis High 06/21/2018 Bee stings- swelling documented as of this encounter (statuses as of 03/20/2024) Medications Iron (Ferrous Sulfate) 325 (65 Fe) [...] as of this encounter (statuses as of 03/20/2024) Active Problems Problem Noted Date Diagnosed Date [...] heart disease 002 Overview (11/29/2001): father had CO's in 40's Gastroesophageal reflux disease with esophagitis documented as of this encounter (statuses as of 03/20/2024) Resolved Problems Problem Noted Date Diagnosed Date [...] cardiac murmurs 11/29/2001 03/02/2017 Overview (11/29/2001): Not [place] on 11/29/01 documented as of this encounter (statuses as of 03/20/2024) Immunizations Name Administration Dates Next Due HEP A - Hepatitis A (Adult > 18 yrs) 06/06/2020 Pneumococcal Conjugate Vacci ne, 20-valent ([id number]) 06/24/2022 Seasonal Influenza Virus Vac cine, Unspecified [...] Job 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 Answer Date of Assessment Author Yes 08/23/2021 12:08 PM EDT documented as of this encounter Miscellaneous Notes * Telephone Encounter - Ana Dan LPN - 03/20/2024 3:12 PM EST The patient is aware, and verbalizes an understanding. * Addendum Note - Georgia Ochoa MD [...] Description 04/01/2024 7:00 AM EST Imaging Radiology [facility] 1st [facility] [place] [address] [place] [address] 04/05/2024 11:00 AM EST Office Visit Orthopaedics [facility] [address] [place] [address] Javi Veloz MD [address] [place] [address] 05/29/2024 3:40 PM EST Office Visit Neurology [facility] [address] [facility] [place] [address] Britni De La Cruz MD [address] [facility] [place] [address] 09/18/2024 3:40 PM EDT Office Visit Gastroenterology, [facility] [address] [place] [address] Ki Huang MD [address] [place] [address] Scheduled Procedures Name Priority Associated Diagnoses Date/Ti [...] filedocumented as of this encounter Care Teams Operations Research Director Relationship Specialty Start Date End Date Georgia Ochoa MD [address] [place] [address] PCP - General Internal Medicine 02/05/24 documented as of this encounter
--- OUTSIDE RECORDS SUMMARY | 2024-04-20 03:15 | External Medical Summary | Summary of Care ---
Author Name Unknown Organization [facility] Address [address] [place] [address] Phone [phone] Care Team Providers Care Broadcast Systems Engineer Name Role Phone Rao Ochoa MD Primary Care Provider [phone] Reason for Referral * Evaluate & Treat - Unlimited Visits (Within 10 days (routine)) - Authorized Specialty Diagnoses / Procedures Referred By Pj hernandez Referred To Contact Neuro/Ortho Surgery - Spine. / Neurological Surgery Diagnoses Lumbar radicular pain Neuropathic pain, leg, left Sita Molina PA-C [address] [facility] [address] Phone: tel: fax: Referral ID Status Reason Start Date Expiration Date Visits Requested Visits Authorized [id number] Authorized Specialty Services Required 4 [phone] Question Answer Referral Priority Within 10 days (routine) Where should this appointment be scheduled? [facility] region: Back - Thoracic/Lumbar Do you have any recent complete loss of bladder or bowel function? No Comments Lumbar radiculopathy, L LE Neuropathic pain L LE Reason for Visit * Reason Comments Back Pain * Evaluate & Treat - Unlimited Visits (Within 10 days (routine)) - Authorized Specialty Diagnoses / Procedures Referred By Pj hernandez Referred To Contact Pain Management / Pain Medicine Diagnoses Osteoarthritis of spine with radiculopathy, lumbosacral region Rao Ochoa MD [address] [place] [address] Phone: tel: fax: Referral ID Status Reason Start Date Expiration Date Visits Requested Visits Authorized [id number] Authorized Specialty Services Required 03/08/2024 [id number] Encounter Details Date Type Department Care Team (Late st Contact Info) Description 03/19/2024 10:30 AM EST Office Visit Interventional Pain Center, [facility] [address] [place] [address] Sita Molina PA-C [address] [place] [address] Lumbar radicular pain*; Neuropathic pain, leg, left Allergies Active Allergy Reactions Criticality Noted Date [...] MORNING AND BEFORE BEDTIME 180 Tablet 1 023 Active Pantoprazole Sodium 40 MG Oral Tablet [...] by mouth BEFORE BEDTIME 60 Tablet 5 Active Gabapentin 300 MG Oral Capsule (Neurontin) Take 1 Capsule by mouth at bedtime. 30 Capsule 5 Active Lactulose 10 GM/15ML Oral Solution (Constulose)Indic ations:Hyperammon emia (HCC) Take 30 mL by mouth in the morning and 30 mL at noon and 30 mL in the evening and 30 mL before bedtime. 946 mL 11 Active traMADol HCl 50 MG Oral Tablet (Ultram)Indicatio ns:Avascular necrosis of bone of left hip (HCC),Peripheral polyneuropathy Take 1 Tablet by mouth daily as needed for Pain, Severe. Not more than #15 per month due to liver condition 15 Tablet Active predniSONE 10 MG Oral Tablet (Deltasone) 3 tabs two times per day x 3 days, 2 tabs two times per day x 3 days, 1 tab two times per day x 3 days, 1 tab daily x 3 days 39 Tablet Active Additional Information Patient not taking.Reported on 03/19/2024 FLUoxetine HCl 10 MG Oral Capsule (PROzac) [...] cardiac murmurs 11/29/2001 03/02/2017 Overview (11/29/2001): Not [place] on 11/29/01 documented as of this encounter (statuses as of 03/19/2024) Immunizations Name Administration Dates Next Due HEP A - Hepatitis A (Adult > 18 yrs) 06/06/2020 Pneumococcal Conjugate Vacci ne, 20-valent ([id number]) 06/24/2022 Seasonal Influenza Virus Vac cine, Unspecified [...] Job Start Date Job End Date 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 Answer Date of Assessment Author Yes 08/23/2021 12:08 PM EDT documented as of this encounter Progress Notes * Sita Molina PA-C - 03/19/2024 10:29 AM EST Name: Mauro Liu Date: 03/19/2024 HPI: Mauro Liu is a 58 year old male known to the Pain Management clinic presents for follow up due to chronic low back pain with new onset L LE radiculopathy. Has followed with ortho for this complaint who felt th pain is related to lumbar spine. Ortho continues to follow with him for chronic hip pain. Reviewed L spine MRI 03/13/24 - B L5 pars defect, mild to moderate L foraminal narrowing L5/S1, no area of high grade central stenosis, mild L foraminal narrowing L3/4 and L4/5. Locates pain L low back, buttock that radiates to anterior thigh and modi on L. Rates pain 7/10 andis constant in nature. Baseline LE weakness for number of years, L > R, per patient they questioned if he's had CVA in the past. Paresthesia L LE, unable to produce dermatomal pattern. Denies R LEradicular pain. Denies bowel/bladder dysfunction. Aggravated by transitional movement, lumbar extension. Oral steroid taper provided via ortho. Using tramadol, gabapentin, voltaren gel for pain relief. Pain is affecting ADL. Significant past medical hx alcoholic cirrhosis and thrombocytopenia. Most recent platelet count 41. History: Past Medical History: Diagnosis Date Abdominal pain [...] NON-INVASIVE IMAGING (MRI OR CT) performed by [facility] [place] at [place] [facility] [place] COLONOSCOPY, DIAGNOSTIC (RECTUM) 04/10/2015 adenomatous polyps, repeat 3 yrs/COLONOSCOPY FLEXIBLE PROXIMAL DIAGNOSTIC performed by Lopez Shi MD at [facility] COLONOSCOPY, DIAGNOSTIC (RECTUM) 05/18/2018 adenomatous polyps, diverticulosis, repeat 1yr/COLONOSCOPY FLEXIBLE PROXIMAL DIAGNOSTIC performed by Lopez Shi MD at [facility] COLONOSCOPY, DIAGNOSTIC (RECTUM) 05/30/2019 adenomatous polyps, diverticulosis, repeat 3 yrs / COLONOSCOPY FLEXIBLE PROXIMAL DIAGNOSTIC performed by Lopez Shi MD at [facility] COLONOSCOPY, DIAGNOSTIC (RECTUM) 06/30/2021 1-4mm in rectum, otherwise normal / biopsies normal / 5 year recall / COLONOSCOPY FLEXIBLE PROXIMALDIAGNOSTIC performed by Jena Camargo MD at [facility] EGD, FLEXIBLE, DIAGNOSTIC 05/05/2014 normal bx/ESOPHAGOGASTRODUODENOSCOPY (EGD), FLEXIBLE, TRANSORAL, DIAGNOSTIC performed by Ki Huang MD at [facility] EGD, FLEXIBLE, DIAGNOSTIC 04/11/2016 Schatzki ring, hiatal hernia, gastritis/ESOPHAGOGASTRODUODENOSCOPY (EGD), FLEXIBLE, TRANSORAL, DIAGNOSTIC performed by Ki uHang MD at [facility] EGD, FLEXIBLE, DIAGNOSTIC 01/24/2018 w/ [facility] EGD, FLEXIBLE, DIAGNOSTIC 07/17/2018 normal biopsies/ESOPHAGOGASTRODUODENOSCOPY (EGD), FLEXIBLE, TRANSORAL, DIAGNOSTIC performed by Lopez Shi MD at [facility] EGD, FLEXIBLE, DIAGNOSTIC 07/07/2020 sm hiatal hernia / ESOPHAGOGASTRODUODENOSCOPY (EGD), FLEXIBLE, TRANSORAL, DIAGNOSTIC performed by Lopez Shi MD at [facility] EGD, FLEXIBLE, DIAGNOSTIC 09/03/2021 esophageal varices, repeat 1 yr / ESOPHAGOGASTRODUODENOSCOPY (EGD), FLEXIBLE, TRANSORAL, DIAGNOSTICperformed by Alen Garcia DO at [facility] EGD, FLEXIBLE, DIAGNOSTIC 07/06/2022 Portal hypertensive gastropathy, eso varices, mild-mod inflammation on bx / ESOPHAGOGASTRODUODENOSCOPY (EGD), FLEXIBLE, TRANSORAL, DIAGNOSTIC performed by Lopez Shi MD at ENDOSCOPY [facility] EGD, FLEXIBLE, DIAGNOSTIC N/A 10/18/2023 grade I esophageal varices/portal hypertensive gastropathy/recall 2 years/ESOPHAGOGASTRODUODENOSCOPY (EGD), FLEXIBLE, TRANSORAL, DIAGNOSTIC performed by Jena Camargo MD at OR [facility] EGD, W/ENDOSCOPIC US 06/26/2018 retained food, repeat study/ESOPHAGOGASTRODUODENOSCOPY (EGD), FLEXIBLE, TRANSORAL, ENDOSCOPIC ULTRASOUND performed by Lopez Shi MD at ENDOSCOPY [facility] EGD, W/ENDOSCOPIC US 07/17/2018 sludge gallbladder/ESOPHAGOGASTRODUODENOSCOPY (EGD), FLEXIBLE, TRANSORAL, ENDOSCOPIC ULTRASOUND performed by Lopez Shi MD at ENDOSCOPY [facility] IR BIOPSY 02/14/2022 LAPAROSCOPY; CHOLECYSTECTOMY OK ARTHRP ACETBLR/PROX FEM PROSTC AGRFT/ALGRFT Left 04/08/2023 REDUCTION OF 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 04/26/2012 Exploratory laparotomy with extensive lysis of adhesions and repair of small bowel serosal REMOVAL OF RUPTURED APPENDIX 1978 Appendectomy, Rupt Appendx+Abscess Current Outpatient Medications Medication Sig Dispense Refill Iron (Ferrous Sulfate) 325 (65 Fe) MG Oral Tablet Take by mouth. Atorvastatin Calcium 20 MG Oral Tablet (Lipitor) Take 1 Tablet by mouth in the morning. 90 Tablet 1 Diclofenac Sodium 1 % External Gel (Voltaren) Apply topically to affected area 2 times a day. Applyto area lateral to left hip 150 g 5 Gabapentin 100 MG Oral [...] 1 Tablet before bedtime. 180 Tablet 1 FLUoxetine HCl 10 MG Oral Capsule (PROzac) Take 1 Capsule by mouth in the morning. 90 Capsule 3 traZODone HCl 50 MG Oral Tablet (Desyrel) Take 2 Tablets by mouth at bedtime. 180 Tablet 3 LORazepam 0.5 MG Oral Tablet (Ativan) Take 1 Tablet by mouth every 6 hours as needed. Spironolactone 25 MG Oral Tablet (Aldactone) Take 1 Tablet by mouth in the morning. Zinc Acetate 50 MG Oral Capsule Take by mouth 2 times a day. Furosemide 40 MG Oral Tablet (Lasix) Take 1 tab by mouth daily 90 Tablet 1 rifAXIMin 550 MG Oral Tablet (Xifaxan) take 1 tablet by mouth IN THE MORNING then take 1 tablet by mouth BEFORE BEDTIME 60 Tablet 5 Gabapentin 300 MG Oral Capsule (Neurontin) Take 1 Capsule by mouth at bedtime. 30 Capsule 5 Lactulose 10 GM/15ML Oral Solution (Constulose) Take 30 mL by mouth in the morning and 30 mL at noon and 30 mL in the evening and 30 mL before bedtime. 946 mL 11 traMADol HCl 50 MG Oral Tablet (Ultram) Take 1 Tablet by mouth daily as needed for Pain, Severe. Not more than #15 per month due to liver condition 15 Tablet 0 Triamcinolone Acetonide 0.1 % External Cream (Aristocort) Apply topically to affected area 2 times a day. To affected area. 60 g 5 EpiPen 2-Dave 0.3 MG/0.3ML Injection Solution Auto-injector For a severe reaction: Place orange end against the outer thigh, press firmly, hold in place for 10 seconds and go to the Emergency room. 2 Each 1 predniSONE 10 MG Oral Tablet (Deltasone) 3 tabs two times per day x 3 days, 2 tabs two times per day x 3 days, 1 tab two times per day x 3 days, 1 tab daily x 3 days (Patient not taking: Reported on 03/19/2024) 39 Tablet 0 Current Facility-Administered Medications Medication Dose Route Frequency Provider Last Rate Last Admin albuterol sulfate (PROVENTIL) (2.5 MG/3ML) 0.083% inhalation solution 2.5 mg 2.5 mg Nebulizer Q4H PRN Toby Paz MD 2.5 mg at 05/10/18 1241 Review of patient's allergies indicates: Allergen Reactions Other Allergy (See Comments) Anaphylaxis Bee stings- swelling ROS: CONSTITUTIONAL: Denies anorexia, weight loss, fever, night sweats. RESPIRATORY: Denies shortness of breath, wheezing, productive cough. CARDIOVASCULAR: Denies chest pains, irregular heartbeat. HEME: Admits easy bruising. Denies anticoagulation use. ROS EXAM: Remainder of ROS negative as discussed above in the HPI. PHYSICAL EXAM: There were no vitals taken for this visit. GENERAL: WD/WN male who is awake and alert. Does not appear to be in acute distress. MENTAL STATUS: Oriented x 3. Pleasant and cooperative with normal affect. LUMBAR SPINE: No gross abnormalities. Skin is intact. No lesions visualized. Significant TTP midline and B paraspinal region with light touch, difficult exam to complete due to his pain with palpation. Limited active ROM with flexion and extension of the lumbar spine. Lumbar facet loading: positive bilaterally. Straight leg raise: positive L, negative R. MARILIN: negative bilaterally. STRENGTH: 5/5 in all major motor groups lower extremities bilateral except 3/5 plantar and dorsi flexion. SENSATION: Not formally tested. No gross sensory deficits lower extremities bilaterally. GAIT/COORDINATION: Gait is intact. Ambulates without assistance. Slow to rise from seated position due to pain. IMAGING: MRI L SPINE WO CONTRAST - 03/13/2024 The lumbar lordosis is maintained. Bilateral L5 pars defects are again noted. Vertebral body heights are maintained. Disc desiccation is noted at multiple levels. There is mild disc space narrowing at L5-S1. Chronic degenerative Schmorl's node is noted at the superior endplate of L5 on the left andassociated with mild degenerative edema. The conus medullaris terminates normally at L1 level. Multilevel degenerative changes of the lumbar spine are noted, detailed below. L3-L4: Disc bulge, ligamentum flavum thickening, and facet arthropathy contributes to [id number] right and mild left neural foraminal narrowing. No significant spinal canal stenosis. L4-L5: Disc bulge with annular fissure and facet arthropathy contributes to mild bilateral neural foraminal narrowing. No significant spinal canal stenosis. L5-S1: Disc bulge superimposed with a small central protrusion and facet arthropathy contributes tomild right and [id number] left neural foraminal narrowing. No significant spinal canal narrowing. Left hip prosthesis is partially imaged on the eap specialist sequence. A small left renal cyst is noted. IMPRESSION: Multilevel degenerative changes of the lumbar spine, including [id number] neural foraminal narrowing at L3-L4 and L5-S1 on the left. No significant spinal canal stenosis. Findings are similar to MRI lumbar spine dated 08/31/2023. ASSESSMENT: Lumbar radicular pain, L LE B L5 pars defect Thrombocytopenia RECOMMENDATION: Chronic low back pain with progressive L LE radicular pain. Reviewed L spine MRI 03/13/24 - B L5 pars defect, mild to moderate L foraminal narrowing L5/S1, no area of high grade central stenosis, mild L foraminal narrowing L3/4 and L4/5. Patient is not a candidate to VIC in light of thrombocytopenia, aware platelets would need to be at least 100 to considered. He is very frustrated by this, noting "this was a waste of time. He is requesting surgical consultation. Referral placed per his request. Attempted to reiterated hewould likely be considered high risk. Staff message sent to PCP to consider further titration gabapentin - suing 300 mg QHS, 100 mg AM and noon. Also ?if cymbalta could be considered. I spent a total of 30-39 minutes (exact time 35 mins) on the date of service in preparation, delivery, and documentation of the care provided to Mauro Liu excluding any time spent in the performance of separately billed services or time spent by another provider/QHP. Sita Molina PA-C 03/19/2024 documented in this encounter Nursing Notes * Marilou Layne LPN - 03/19/2024 10:26 AM EST Patient reports low back, left leg, left upper back pain [id number] MRI in chart Also reports eye issues-saw small business consultant No relief with oral steroids documented in this encounter Plan of Treatment Upcoming Encounters Date Type Department Care Team (Late st Contact Info) Description 04/01/2024 7:00 AM EST Imaging Radiology [facility] [facility] [address] [place] [address] 04/05/2024 11:00 AM EST Office Visit [facility]opaedics [facility] [place] [address] Javi Veloz MD [address] [facility] [place] [address] 05/29/2024 3:40 PM EST Office Visit [facility] [address] [facility] [place] [address] Britni De La Cruz MD [address] [facility] [place] [address] 09/18/2024 3:40 PM EDT Office Visit Gastroenterology, [facility] [address] [place] [address] Ki Huang MD [address] [facility] [place] [address] Scheduled Procedures Name Priority Associated Diagnoses Date/Ti me ESOPHAGOGASTRODUODENOSCOPY ( EGD), FLEXIBLE, TRANSORAL, DIAGNOSTIC Recall Portal hypertensive gastropathy (HCC) Esophageal varices (HCC) COLONOSCOPY FLEXIBLE PROXIMAL DIAGNOSTIC Recall History of colon polyps Scheduled Referrals Name Type Priority Associated Diagnoses Orde r Schedule SPINE SURGERY REFERRAL OP Referral Within 10 days (routine) Lumbar radicular pain Neuropathic pain, leg, left Ordered: 03/19/2024 Health Maintenance Due Date Last Done Comments [...] as of this encounter Visit Diagnoses Diagnosis Lumbar radicular pain- Primary Thoracic or lumbosacral neuritis or radiculitis, unspecified Neuropathic pain, leg, left documented in this encounter Care Teams Broadcast Systems Engineer Relationship Specialty Start Date End Date Rao Ochoa MD [address] [place] [address] PCP - General Internal Medicine 02/05/24 documented as of this encounter
--- OUTSIDE RECORDS SUMMARY | 2024-04-20 03:15 | External Medical Summary | Summary of Care ---
Author Name Unknown Organization [facility] Address [address] [facility] [address] Phone [phone] Care Team Providers Care Construction Operations Manager Name Role Phone Rao Ochoa MD Primary Care Provider [phone] Encounter Details Date Type Department Care Team ([facility] st Contact Info) Description 03/19/2024 Telephone [facility] [address] [place] [address] Rao Ochoa MD [address] [place] [address] Allergies Active Allergy Reactions Criticality [...] heart disease 002 Overview (11/29/2001): father had CT's in 40's Gastroesophageal reflux [...] cardiac murmurs 11/29/2001 03/02/2017 Overview (11/29/2001): Not [place] on 11/29/01 documented as of this encounter (statuses as of 03/19/2024) Immunizations Name Administration Dates Next Due HEP A - Hepatitis A (Adult > 18 yrs) 06/06/2020 Pneumococcal Conjugate Vacci ne, 20-valent ([id number]) 06/24/2022 Seasonal Influenza Virus Vac cine, Unspecified [...] 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 Please advise. * Telephone Encounter - Rao Ochoa MD - 03/19/2024 11:22 AM EST [...] Description 04/01/2024 7:00 AM EST Imaging Radiology [facility]st [facility] [address] [facility] [place] [address] 04/05/2024 11:00 AM EST Office Visit Orthopaedics [facility] [place] [address] Javi Veloz MD [address] [facility] [place] [address] 05/29/2024 3:40 PM EST Office Visit Neurology [facility] [address] [facility] [place] [address] Britni De La Cruz MD [address] [facility] [place] [address] 09/18/2024 3:40 PM EDT Office Visit Gastroenterology, [facility] [address] [facility] [place] [address] Ki Huang [facility] [address] [facility] [place] [address] Scheduled Procedures Name Priority Associated Diagnoses Date/Ti [...] filedocumented as of this encounter Care Teams Construction Operations Manager Relationship Specialty Start Date End Date Rao Ochoa MD [address] [facility] [place] [address] PCP - General Internal Medicine 02/05/24 documented as of this encounter
--- OUTSIDE RECORDS SUMMARY | 2024-04-20 03:15 | External Medical Summary | Summary of Care ---
Author Name Unknown Organization [facility] Address [address] [facility] [place] [address] Phone [phone] Care Team Providers Care Dependency Program Director Name Role Phone Rao Ochoa MD Primary Care Provider [phone] Reason for Referral * Medication Prior Authorization - Pending Review Specialty Diagnoses / Procedures Referred By Pj t Referred To Contact Diagnoses Avascular necrosis of bone of left hip (HCC) Peripheral polyneuropathy Rao Ochoa MD [address] [place] [address] Phone: tel: fax: Referral ID Status Reason Start Date Expiration Date V isits Requested Visits Authorized [id number] Pending Review 999 999 Reason for Visit * Reason Onset Date Comments Medication Refill 03/06/2024 Medication Pre-auth 03/06/2024 Encounter Details Date Type Department Care Team ([facility] st Contact Info) Description 03/06/[address] [phone] [facility]cho[facility] [address] [facility] [place] [address] Medication Refill; Medication Pre-auth Allergies Active Allergy Reactions Criticality Noted Date Comments Other Allergy (See Comments) Anaphylaxis High 06/21/2018 Bee stings- swelling documented as of this encounter (statuses as of 03/08/2024) Medications Iron (Ferrous Sulfate) 325 (65 Fe) MG Oral Tablet Take by mouth. Active Atorvastatin Calcium 20 MG Oral Tablet (Lipitor)Indicatio ns:Dyslipidemia Take 1 Tablet by mouth in the morning. 90 Tablet 1 03/29/20 23 Active Diclofenac Sodium 1 % External Gel (Voltaren) Apply topically to affected area 2 times a day. Apply to area lateral to left hip 150 g 5 03/29/20 23 Active Additional Information Patient not taking.Reported on 10/10/2023 Gabapentin 100 MG Oral Capsule (Neurontin)Indicat ions:Complaint [...] bedtime. 180 Tablet 1 03/29/20 23 Active Triamcinolone Acetonide 0.1 % External Cream (Aristocort)Indica tions:Psoriasiform eczema Apply topically to affected area 2 times a day. To affected area. 60 g 5 05/10/19 24 Active FLUoxetine HCl 10 MG Oral Capsule (PROzac) Take 1 Capsule by mouth in the morning. 90 Capsule 3 06/25/19 24 Active traZODone HCl 50 MG Oral Tablet [...] room. 2 Each 1 08/17/19 24 Active Additional Information Patient not taking.Reported on 01/17/2024 Zinc Acetate 50 MG Oral Capsule Take [...] liver condition 15 Tablet 03/08/20 24 Active traMADol HCl 50 MG Oral Tablet (Ultram)Indication s:Avascular necrosis of bone of left hip (HCC),Peripheral polyneuropathy Take 1 Tablet by mouth daily as needed for Pain, Severe. Not more than #15 per month due to liver condition 15 Tablet 01/16/20 24 024 Discontin ued(Refil l) Hospital, Clinic, or Other Facility Administered Medication Ordered Dose Route Frequency Start Date End Date Status albuterol sulfate (PROVENTIL) (2.5 MG/3ML) 0.083% inhalation solution 2.5 mgIndications:SOB (shortness of breath) 2.5 mg NEBULIZER Q4H PRN 05/10/2018 Act guzman documented as of this encounter (statuses as of 03/08/2024) Active Problems Problem Noted Date Diagnosed Date [...] heart disease 002 Overview (11/29/2001): father had SC's in 40's Gastroesophageal reflux disease with esophagitis documented as of this encounter (statuses as of 03/08/2024) Resolved Problems Problem Noted Date Diagnosed Date [...] cardiac murmurs 11/29/2001 03/02/2017 Overview (11/29/2001): Not [place] on 11/29/01 documented as of this encounter (statuses as of 03/08/2024) Immunizations Name Administration Dates Next Due HEP A - Hepatitis A (Adult > 18 yrs) 06/06/2020 Pneumococcal Conjugate Vacci ne, 20-valent ([id number]) 06/24/2022 Seasonal Influenza Virus Vac cine, Unspecified [...] 04/17/2023 Does the household have a re lar source of income? 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 Answer Date of Assessment Author Yes 08/23/2021 12:08 PM EDT documented as of this encounter Miscellaneous Notes * Telephone Encounter - Diamante Deal rotor blade installer - 03/08/2024 10:29 AM EST [place] calling from [facility]. Needs clinical information sent over for Tramadol 50mg. Please fax information to [phone] by 2pm today [facility] [phone] ThanksDiamante Civil Engineering Project Designer III [facility] 03/08/2024,10:30 AM * Telephone Encounter - Rao Ochoa MD - 03/08/2024 9:14 AM ESTSigned Prescriptions: Disp Refills traMADol HCl 50 MG Oral Tablet (Ultram) 15 Tab*0 Sig: Take 1 Tablet by mouth daily as needed for Pain, Severe. Not more than #15 per month due to liver condition Authorizing Provider: RAO OCHOA * Telephone Encounter - Olvin Koehler RPh - 03/08/2024 8:48 AM EST I have reviewed the patients controlled substance dispensing history in the Prescription Drug Monitoring Program in compliance with the [facility] regulations before prescribing a controlled substance. PDMP checked on 03/08/2024. Pending Prescriptions: Disp Refills traMADol HCl 50 MG Oral Tablet (Ultram) 15 Tab*0 Sig: Take 1 Tablet by mouth daily as needed for Pain, Severe. Not more than #15 per month due to liver condition Last Visit: 01/16/2024 (in office), Visit date not found (telemedicine) Next Visit: Visit date not found Date medication was last filled: 01/16/24 Date medication is due for refill: 02/14/24 Pharmacy: [id number] Is this request for a controlled substance? Yes and Urine Drug Screen Not completed Please approve if appropriate. Thanks, Olvin Koehler, PharmDion Clinical Pharmacist [facility] [phone] 03/08/2024, 8:48 AM documented in this encounter Plan of Treatment Upcoming Encounters Date Type Department Care Team (Late st Contact Info) Description 03/08/2024 11:40 AM EST Office Visit Family [facility], Bertha Whitney [address] [place] [phone] Rao Ochoa MD [address] [place] [address] 05/29/2024 3:40 PM EST Office Visit Neurology [employer] [address] [place] [address] Britni De La Cruz MD [address] [facility] [place] [address] Scheduled Procedures Name Priority Associated Diagnoses Date/Ti [...] necrosis of bone of left hip (HCC) Peripheral polyneuropathy Unspecified hereditary and idiopathic peripheral neuropathy documented in this encounter Care Teams Dependency Program Director Relationship Specialty Start Date End Date Rao Ochoa MD [address] [facility] [place] [address] PCP - General Internal Medicine 02/05/24 documented as of this encounter
--- OUTSIDE RECORDS SUMMARY | 2024-04-20 03:15 | External Medical Summary | Summary of Care ---
Author Name Unknown Organization [facility] Address [address] [place] [facility] [place] [address] Phone [phone] Care Team Providers Care Stamp Machine Servicer Name Role Phone Rao Ochoa MD Primary Care Provider [phone] Encounter Details Date Type Department Care Team ([facility] st Contact Info) Description 03/19/2024 Telephone [facility] [address] [place] [phone] Rao Ochoa MD [address] [place] [address] Allergies Active Allergy Reactions Criticality [...] liver condition 15 Tablet 03/08/20 24 Active predniSONE 10 MG Oral Tablet (Deltasone) 3 tabs two times per day x 3 days, 2 tabs two times per day x 3 days, 1 tab two times per day x 3 days, 1 tab daily x 3 days 39 Tablet 03/12/20 24 Active Additional Information Patient not taking.Reported on 03/19/2024 Hospital, Clinic, or Other Facility Administered Medication [...] cardiac murmurs 11/29/2001 03/02/2017 Overview (11/29/2001): Not [place] on 11/29/01 documented as of this encounter (statuses as of 03/19/2024) Immunizations Name Administration Dates Next Due HEP A - Hepatitis A (Adult > 18 yrs) 06/06/2020 Pneumococcal Conjugate Vacci ne, 20-valent ([id number]) 06/24/2022 Seasonal Influenza Virus Vac cine, Unspecified [...] Job Start Date Job End Date 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 Not on file Not [...] Description 04/01/2024 7:00 AM EST Imaging Radiology [facility] [address] [place] [address] 04/05/2024 11:00 AM EST Office Visit Orthopaedics [address] [place] [address] Javi Veloz MD [address] [facility] [place] [address] 05/29/2024 3:40 PM EST Office Visit Neurology [facility] [address] [facility] [place] [address] Britni De La Cruz MD [address] [facility] [place] [address] 09/18/2024 3:40 PM EDT Office Visit [facility]enterology, [facility] [address] [facility] [place] [address] Ki Huang MD [address] [facility] [place] [address] Scheduled Procedures Name Priority Associated Diagnoses Date/Ti [...] filedocumented as of this encounter Care Teams Stamp Machine Servicer Relationship Specialty Start Date End Date Rao Ochoa MD [address] [place] [address] PCP - General Internal Medicine 02/05/24 documented as of this encounter
--- OUTSIDE RECORDS SUMMARY | 2024-04-20 03:15 | External Medical Summary | Summary of Care ---
Author Name Unknown Organization [facility] Address [address] [place] [address] Phone [phone] Care Team Providers Care Compressor Battery Pellets Name Role Phone Rao Ochoa MD Primary Care Provider [phone] Reason for Visit * Reason Comments NEW PATIENT Low back pain * Evaluate & Treat - Unlimited Visits (Within 10 days (routine)) - Authorized Specialty Diagnoses / Procedures Referred By Contac t Referred To Contact Neuro/Ortho Surgery - Spine. / Neurological Surgery Diagnoses Lumbar radicular pain Neuropathic pain, leg, left Sita Molina PA-Jose [address] [facility] [place] [address] Phone: tel: fax: Referral ID Status Reason Start Date Expiration Date Visits Requested Visits Authorized [id number] Authorized Specialty Services Required [phone] Encounter Details Date Type Department Care Team (Late st Contact Info) Description 03/22/2024 9:30 AM EST [facility] [address] [place] [address] Karl Kline MD [address] [place] [address] Low back pain, unspecified back pain laterality, unspecified chronicity, unspecified whether sciatica present* Allergies Active Allergy Reactions Criticality Noted Date Comments Other Allergy (See Comments) Anaphylaxis High 06/21/2018 Bee stings- swelling documented as of this encounter (statuses as of 03/22/2024) Medications Iron (Ferrous Sulfate) 325 (65 Fe) [...] chew. 30 Capsule 5 03/19/20 24 Active Triamcinolone Acetonide 0.1 % External Cream (Aristocort)Indica tions:Psoriasiform eczema Apply topically to affected area 2 times a day. To affected area. 60 g 5 05/10/19 24 024 Discontin ued(Medic ation List Clean Up) predniSONE 10 MG Oral Tablet (Deltasone) 3 tabs two times per day x 3 days, 2 tabs two times per day x 3 days, 1 tab two times per day x 3 days, 1 tab daily x 3 days 39 Tablet 03/12/20 24 024 Discontin ued(Medic ation List Clean Up) Hospital, Clinic, or Other Facility Administered Medication Ordered Dose Route Frequency Start Date End Date Status albuterol sulfate (PROVENTIL) (2.5 MG/3ML) 0.083% inhalation solution 2.5 mgIndications:SOB (shortness of breath) 2.5 mg NEBULIZER Q4H PRN 05/10/2018 Act guzman documented as of this encounter (statuses as of 03/22/2024) Active Problems Problem Noted Date Diagnosed Date [...] heart disease 002 Overview (11/29/2001): father had MO's in 40's Gastroesophageal reflux disease with esophagitis documented as of this encounter (statuses as of 03/22/2024) Resolved Problems Problem Noted Date Diagnosed Date [...] cardiac murmurs 11/29/2001 03/02/2017 Overview (11/29/2001): Not [place] on 11/29/01 documented as of this encounter (statuses as of 03/22/2024) Immunizations Name Administration Dates Next Due HEP A - Hepatitis A (Adult > 18 yrs) 06/06/2020 Pneumococcal Conjugate Vacci ne, 20-valent ([id number]) 06/24/2022 Seasonal Influenza Virus Vac cine, Unspecified [...] Job Start Date Job End 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 Answer Date of Assessment Author Yes 08/23/2021 12:08 PM EDT documented as of this encounter Progress Notes * Karl Kline MD - 03/22/2024 10:04 AM EST Name: Mauro Liu Date: 03/22/24 CC: Low back pain, left leg pain HPI: 58-year-old male with a history of alcoholic cirrhosis and thrombocytopenia comes to see us today as a new patient for low back pain and left leg pain. He states that the pain in his low back has been chronic, however he states the pain in his left leg seems to have started after he had a total hip arthroplasty procedure done within the last year or so. This was done at an outside institution he believes might have been [facility]. Since that time he states that it has been difficult for him to bear weight on the left lower extremity as he has increasing pain across his left groin and radiating down the anterior thigh towards his knee. He states that his knee has been increasingly painful with weight-bearing as well. He also reports having weakness with dorsiflexion and plantar flexion in the left lower extremity ever since the hip surgery as well. He has been to pain management for this previously and they were unable to give him any injections into his spine as he has had thrombocytopenia and they stated this was not be a safe unless his platelets were above 100. He has also seen orthopedics in [facility] for his left knee pain and they have a MRI of his left kneescheduled for April 01. He has increased his medication in gabapentin to 300 mg three times daily as well as started duloxetine and he is currently on tramadol 50 mg as well. Denies any changes with saddle anesthesia or bladder or bowel changes in function. Denies any new focal weakness. Denies any numbness or tingling today. Past Medical History: Diagnosis Date Abdominal pain [...] NON-INVASIVE IMAGING (MRI OR [place] [facility] [place] [facility] [place], [place]NOSTIC (RECTUM) 04/10/2015 adenomatous polyps, repeat 3 yrs/COLONOSCOPY FLEXIBLE PROXIMAL DIAGNOSTIC performed by Lopez Shi MD at [facility] COLONOSCOPY, DIAGNOSTIC (RECTUM) 05/18/2018 adenomatous polyps, diverticulosis, repeat 1yr/COLONOSCOPY FLEXIBLE PROXIMAL DIAGNOSTIC performed by Lopez Shi MD at [facility] COLONOSCOPY, DIAGNOSTIC (RECTUM) 05/30/2019 adenomatous polyps, diverticulosis, repeat 3 yrs / COLONOSCOPY FLEXIBLE PROXIMAL DIAGNOSTIC performed by Lopez Shi MD at [facility] COLONOSCOPY, DIAGNOSTIC (RECTUM) 06/30/2021 1-4mm in rectum, otherwise normal / biopsies normal / 5 year recall / COLONOSCOPY FLEXIBLE PROXIMALDIAGNOSTIC performed by Jena Camargo MD at [facility] EGD, FLEXIBLE, DIAGNOSTIC 05/05/2014 normal bx/ESOPHAGOGASTRODUODENOSCOPY (EGD), FLEXIBLE, TRANSORAL, DIAGNOSTIC performed by Ki Huang MD at [facility] EGD, FLEXIBLE, DIAGNOSTIC 04/11/2016 Schatzki ring, hiatal hernia, gastritis/ESOPHAGOGASTRODUODENOSCOPY (EGD), FLEXIBLE, TRANSORAL, DIAGNOSTIC performed by Ki Huang MD at [facility] EGD, FLEXIBLE, DIAGNOSTIC 01/24/2018 w/ [facility] EGD, FLEXIBLE, DIAGNOSTIC 07/17/2018 normal biopsies/ESOPHAGOGASTRODUODENOSCOPY (EGD), FLEXIBLE, TRANSORAL, DIAGNOSTIC performed by Lopez Shi MD at [facility] EGD, FLEXIBLE, DIAGNOSTIC 07/07/2020 sm hiatal hernia / ESOPHAGOGASTRODUODENOSCOPY (EGD), FLEXIBLE, TRANSORAL, DIAGNOSTIC performed by Lopez Shi MD at [facility] EGD, FLEXIBLE, DIAGNOSTIC 09/03/2021 esophageal varices, repeat 1 yr / ESOPHAGOGASTRODUODENOSCOPY (EGD), FLEXIBLE, TRANSORAL, DIAGNOSTICperformed by Alen Garcia DO at [facility] EGD, FLEXIBLE, DIAGNOSTIC 07/06/2022 Portal hypertensive gastropathy, eso varices, mild-mod inflammation on bx / ESOPHAGOGASTRODUODENOSCOPY (EGD), FLEXIBLE, TRANSORAL, DIAGNOSTIC performed by Lopez Shi MD at [facility] EGD, FLEXIBLE, DIAGNOSTIC N/A 10/18/2023 grade I esophageal varices/portal hypertensive gastropathy/recall 2 years/ESOPHAGOGASTRODUODENOSCOPY (EGD), FLEXIBLE, TRANSORAL, DIAGNOSTIC performed by Jena Camargo MD at OR [facility] EGD, W/ENDOSCOPIC US 06/26/2018 retained food, repeat study/ESOPHAGOGASTRODUODENOSCOPY (EGD), FLEXIBLE, TRANSORAL, ENDOSCOPIC ULTRASOUND performed by Lopez Shi MD at [facility] EGD, W/ENDOSCOPIC US 07/17/2018 sludge gallbladder/ESOPHAGOGASTRODUODENOSCOPY (EGD), FLEXIBLE, TRANSORAL, ENDOSCOPIC ULTRASOUND performed by Lopez Shi MD at [facility] IR BIOPSY 02/14/2022 LAPAROSCOPY; CHOLECYSTECTOMY SD ARTHRP ACETBLR/PROX FEM PROSTC AGRFT/ALGRFT Left 04/08/2023 REDUCTION OF 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 04/26/2012 Exploratory laparotomy with extensive lysis of adhesions and repair of small bowel serosal REMOVAL OF RUPTURED APPENDIX 1977 Appendectomy, Rupt Appendx+Abscess Family History Problem Relation Name Age of Onset Neurological Disorder Mother Parkisons Parkinsonism Mother Heart Disorder Father MO in 40's Stroke Father Heart failure Father Dementia Father No Known Problems Brother Kelvin Social History Tobacco Use Smoking status: Former Current packs/day: 0.00 Average packs/day: 0.1 packs/day for 20.0 years (2.0 ttl pk-yrs) Types: Cigarettes Start date: 05/10/1995 Quit date: 05/10/2015 Years since quittin.8 Passive exposure: Never Smokeless tobacco: Never Tobacco comments: fiance smokes Vaping Use Vaping status: Never Used Substance Use Topics Alcohol use: Not Currently Comment: 12 pack on the weekends, No ETOH since December 2021 Drug use: No Comment: no caffeine Current Outpatient Medications Medication Sig Dispense Refill [...] 1 Tablet before bedtime. 180 Tablet 1 traZODone HCl 50 MG Oral Tablet (Desyrel) [...] due to liver condition 15 Tablet 0 DULoxetine HCl 30 MG Oral Capsule Delayed Release Particles (Cymbalta) Take 1 Capsule by mouth in the morning. Do not cut, crush or chew. 30 Capsule 5 EpiPen 2-Dave 0.3 MG/0.3ML Injection Solution Auto-injector For a severe reaction: Place orange end against the outer thigh, press firmly, hold in place for 10 seconds and go to the Emergency room. 2 Each 1 Current Facility-Administered Medications Medication Dose Route Frequency Provider Last Rate Last Admin albuterol sulfate (PROVENTIL) (2.5 MG/3ML) 0.083% inhalation solution 2.5 mg 2.5 mg Nebulizer Q4H PRN Toby Paz MD 2.5 mg at 05/10/18 1241 Review of patient's allergies indicates: Allergen Reactions Other Allergy (See Comments) Anaphylaxis Bee stings- swelling Physical Exam: 5/5 strength in all muscle groups right lower extremity. Intact sensation across alldermatomes right lower extremity. Left lower extremity is 3/5 strength in dorsiflexion and plantar flexion and EHL, 5/5 strength in quad and hip flexor although these are difficult to test secondary to pain. Left knee is tender to palpation throughout. Effusion is present. Tender to palpation over trochanteric bursa on the left as well. Imaging: X-rays of his lumbar spine obtained in clinic today and interpreted by myself show diffusespondylotic change but no evidence of spondylolisthesis. No dynamic instability. MRI of his lumbar spine showing no central canal stenosis. No significant lateral recess stenosis. Very small broad-based disc bulge at L3-4 level causing very mild stenosis in the neural foramen at exiting 3 root however this is noncompressive. 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 He has seen a number of providers including pain management as well as Orthopedics, and his primary care provider who referred him to spine clinic as they believe he has had left lower extremity radicular symptoms. On examination today I think most of his symptoms are coming from left hip pain that came on ever since a total hip arthroplasty surgery, as well as left knee pain that is mechanical in nature and reproducible on exam. He is tender to palpation and any range of motion of theknee causes him significant pains. He does have an MRI scheduled for that knee on April 01 cintia follow up shortly after with his orthopedic doctor at [facility]. Would definitely recommend following up with that as his knee pain seems to be most significant today. With regard to any type ofspine intervention, he does not have any significant levels of stenosis that would explain the symptoms that he is experiencing today. Furthermore any type of spine intervention would only be warranted after other etiologies of pain or completely eliminated. It is possible that he is having some ofhis low back pain from a pars defect at L5 however his picture is quite cloudy at this point with all his other pains. Additionally he would be a very high-risk candidate for spine surgery with thrombocytopenia and we would have to address this as well. He states that he also has an appointment with his hip surgeon that he believes his [facility] [place] coming up and I would recommend him following up with that as well as this could be contributing to his pain as well. I will leave things open-ended on from our end at this point in time until he gets some of these other issues addressed. Should his symptoms worsen he can always contact us. I have personally interviewed the patient and/or family, and performed a pertinent physical examination. I personally formulated the above assessment and plan, based on the information available to me today. My assessment was discussed in detail with the patient and all feasible options were entertained. Ample time was allotted for discussion of my findings and then all questions were answered indetail to the patients and/or familys satisfaction. Karl Kline MD Orthopaedics Spine Surgery, [address] [address] 03/22/2024 10:04 AM documented in this encounter Plan of Treatment Upcoming Encounters Date Type Department Care Team (Late st Contact Info) Description 04/01/2024 7:00 AM EST Imaging Radiology [facility] [address] [facility] [place] [address] 04/05/2024 11:00 AM EST Office Visit Orthopaedics [facility] [address] [facility] [place] [address] Javi Veloz MD [address] [facility] [place] [address] 05/29/2024 3:40 PM EST Office Visit Neurology [facility] Katie [place] [address] [facility] [place] [address] Britni De La Cruz MD [address] [facility] [place] [address] 09/18/2024 3:40 PM EDT Office Visit Gastroenterology, [facility] [address] [facility] [place] [address] Ki Huang MD [address] [place] [address] Pending Results Name Type Priority Associated Diagnoses Date /Time XR LS SPINE FLEX AND EXT VIEWS ONLY Medical Imaging Routine Low back pain, unspecified back pain laterality, unspecified chronicity, unspecified whether sciatica present 03/22/2024 9:34 AM EST Scheduled Procedures Name Priority Associated [...] as of this encounter Visit Diagnoses Diagnosis Low back pain, unspecified back pain laterality, unspecified chronicity, unspecified whether sciatica present- Primary documented in this encounter Care Teams Compressor Battery Pellets Relationship Specialty Start Date End Date Rao Ochoa MD [address] [place] [address] PCP - General Internal Medicine 02/05/24 documented as of this encounter
--- OUTSIDE RECORDS SUMMARY | 2024-04-20 03:15 | External Medical Summary | Summary of Care ---
Author Name Unknown Organization [facility] Address [address] [facility] [place] [address] Phone [phone] Care Team Providers Care Sales Administration Specialist Name Role Phone Rao Ochoa MD Primary Care Provider [phone] Reason for Referral * Evaluate & Treat - Unlimited Visits (Within 10 days (routine)) - Authorized Specialty Diagnoses / Procedures Referred By Pj t Referred To Contact Orthopaedic Surgery / Orthopedics Diagnoses Chronic pain of left knee Rao Ochoa MD [address] [place] [address] Phone: tel: fax: Referral ID Status Reason Start Date Expiration Date Visits Requested Visits Authorized [id number] Authorized Specialty Services Required 03/08/2024 999 [id number] Question Answer Referral Priority Within 10 days (routine) Where should this appointment be scheduled? [facility] What body part is the patient being seen for? Thigh/Knee What condition is the patient being seen for? Arthritis including related infection * Evaluate & Treat - Unlimited Visits (Within 10 days (routine)) - Authorized Specialty Diagnoses / Procedures Referred By Contac t Referred To Contact Pain Management / Pain Medicine Diagnoses Osteoarthritis of spine with radiculopathy, lumbosacral region Rao Ochoa MD [address] [place] [address] Phone: tel: fax: Referral ID Status Reason Start Date Expiration Date Visits Requested Visits Authorized [id number] Authorized Specialty Services Required 03/08/2024 999 999 Question Answer Referral Priority Within 10 days (routine) Where should this appointment be scheduled? [facility] Reason for referral? Interventional Pain Management - (Injection) What condition is the patient being referred for? Lumbar Radiculopathy What is the preferred location to have this test performed? [facility] Comments Patient Name: Mauro Liu Date [...] pain if not done previously. Fax No. [facility] [phone] or contact java front end web developer [phone] Fax No. [facility] [phone] or contact java front end web developer [phone] Fax No. [facility] [phone] or contact java front end web developer [phone] Reason for Visit * Reason Comments Acute Pt here today due to having left leg and knee (mostly around the knee) and also goes down to his foot. Pt states " It's like numb, and on fire" Encounter Details Date Type Department Care Team (Late st Contact Info) Description 03/08/2024 11:40 AM EST [facility] [address] [place] [address] Rao Ochoa MD [address] [place] [address] Osteoarthritis of spine with radiculopathy, lumbosacral region*; Chronic pain of left knee; S/P hip replacement, left; Hepatic encephalopathy (HCC); Alcoholic cirrhosis of liver [...] 02/07/20 23 AAA (abdominal aortic aneurysm) 10/25/2022 Overview (10/25/2022): [...] heart disease 002 Overview (11/29/2001): father had OH's in 40's Gastroesophageal reflux [...] cardiac murmurs 11/29/2001 03/02/2017 Overview (11/29/2001): Not [place] on 11/29/01 documented as of this encounter (statuses as of 03/08/2024) Immunizations Name Administration Dates Next Due HEP A - Hepatitis A (Adult > 18 yrs) 06/06/2020 Pneumococcal Conjugate Vacci ne, 20-valent ([id number]) 06/24/2022 Seasonal Influenza Virus Vac cine, Unspecified [...] 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 Answer Date of Assessment Author Yes 08/23/2021 12:08 PM EDT documented as of this encounter Progress Notes * Rao Ochoa MD - 03/08/2024 12:03 PM EST Subjective Mauro Liu is a 58 year old male. Chief Complaint Patient presents with Acute Pt here today due to having left leg and knee (mostly around the knee) and also goes down to his foot. Pt states " It's like numb, and on fire" HPI: Here for chronic progressing lower back pain, lt leg pain, also progressing lt knee pain Known lumbar DDD, disc problem last MRI done in august this year Was referred to pain medicine Was getting PT But due to his complicated liver condition, multiple hospital admission this year, he was not scheduled with pain medicine Will also get knee xray , agreed with ortho referral Taking tramadol , neurontin, Minimum use of opioid due to liver cirrhosis PMH: Patient Active Problem List Diagnosis Family history of ischemic heart disease Gastroesophageal reflux disease with esophagitis Angioedema Seasonal allergic rhinitis due to pollen Dyslipidemia Elevated LFTs Steatosis of liver HTN, goal below 130/80 Old myocardial infarction Thrombocytopenia (HCC) Internal hemorrhoids Subungual hematoma of [...] to the Emergency room. 2 Each 1 Zinc Acetate 50 MG Oral Capsule Take [...] NON-INVASIVE IMAGING (MRI OR CT) performed by [facility] [place] [place] [facility] at [place] [facility] COLONOSCOPY, DIAGNOSTIC (RECTUM) 04/10/2015 adenomatous polyps, repeat 3 yrs/COLONOSCOPY FLEXIBLE PROXIMAL DIAGNOSTIC performed by Lopez Shi MD at [facility] COLONOSCOPY, DIAGNOSTIC (RECTUM) 05/18/2018 adenomatous polyps, diverticulosis, repeat 1yr/COLONOSCOPY FLEXIBLE PROXIMAL DIAGNOSTIC performed by Lopez Shi MD at [facility] COLONOSCOPY, DIAGNOSTIC (RECTUM) 05/30/2019 adenomatous polyps, diverticulosis, repeat 3 yrs / COLONOSCOPY FLEXIBLE PROXIMAL DIAGNOSTIC performed by Lopez Shi MD at [facility] COLONOSCOPY, DIAGNOSTIC (RECTUM) 06/30/2021 1-4mm in rectum, otherwise normal / biopsies normal / 5 year recall / COLONOSCOPY FLEXIBLE PROXIMALDIAGNOSTIC performed by Jena Camargo MD at [facility] EGD, FLEXIBLE, DIAGNOSTIC 05/05/2014 normal bx/ESOPHAGOGASTRODUODENOSCOPY (EGD), FLEXIBLE, TRANSORAL, DIAGNOSTIC performed by Ki Huang MD at [facility] EGD, FLEXIBLE, DIAGNOSTIC 04/11/2016 Schatzki ring, hiatal hernia, gastritis/ESOPHAGOGASTRODUODENOSCOPY (EGD), FLEXIBLE, TRANSORAL, DIAGNOSTIC performed by Ki Huang MD at [facility] EGD, FLEXIBLE, DIAGNOSTIC 01/24/2018 w/ [facility] EGD, FLEXIBLE, DIAGNOSTIC 07/17/2018 normal biopsies/ESOPHAGOGASTRODUODENOSCOPY (EGD), [...] performed by Lopez Shi MD at [facility] EGD, FLEXIBLE, DIAGNOSTIC N/A 10/18/2023 grade I esophageal varices/portal hypertensive gastropathy/recall 2 years/ESOPHAGOGASTRODUODENOSCOPY (EGD), FLEXIBLE, TRANSORAL, DIAGNOSTIC performed by Jena Camargo MD at OR [facility] EGD, W/ENDOSCOPIC US 06/26/2018 retained food, repeat study/ESOPHAGOGASTRODUODENOSCOPY (EGD), FLEXIBLE, TRANSORAL, ENDOSCOPIC ULTRASOUND performed by Lopez Shi MD at [facility] EGD, W/ENDOSCOPIC US 07/17/2018 sludge gallbladder/ESOPHAGOGASTRODUODENOSCOPY (EGD), FLEXIBLE, TRANSORAL, ENDOSCOPIC ULTRASOUND performed by Lopez Shi MD at [facility] IR BIOPSY 02/14/2022 LAPAROSCOPY; CHOLECYSTECTOMY IL ARTHRP ACETBLR/PROX FEM PROSTC AGRFT/ALGRFT Left 04/08/2023 REDUCTION OF 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 04/26/2012 Exploratory laparotomy with extensive lysis of adhesions and repair of small bowel serosal REMOVAL OF RUPTURED APPENDIX 1977 Appendectomy, Rupt Appendx+Abscess Review of patient's allergies indicates: Allergen Reactions Other Allergy (See Comments) Anaphylaxis Bee stings- swelling Family History Problem Relation Name Age of Onset Neurological Disorder Mother Parkisons Parkinsonism Mother Heart Disorder Father OH in 40's Stroke Father Heart failure Father Dementia Father No Known Problems Brother Kelvin Family Status Relation Status Mo Fa Bro Alive Social History Socioeconomic History Marital status: Single Spouse name: Carmen Number of children: Not on file Years of education: Not on file Highest education level: 12th grade Occupational History 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 Negative for appetite change,chills, diaphoresis, fever and unexpected weight change. Respiratory: Negative for cough and shortness of breath. Cardiovascular: Negative. Negative for leg swelling. Gastrointestinal: Negative for abdominal distention and abdominal pain. Musculoskeletal: Positive for arthralgias, back pain and gait problem. Allergic/Immunologic: Positive for immunocompromised state. Neurological: Positive for weakness (lt leg) and numbness (lt leg). Psychiatric/Behavioral: Positive for dysphoric mood and sleep disturbance. Negative for agitation and behavioral problems. The patient is nervous/anxious. Objective BP 121/69 | Pulse 63 | Temp 98.6 F (37 C) (Infrared ) | Resp 18 | Wt 207 lb 9.6 oz (94.2 kg) | SpO2 96% | BMI 30.64 kg/m | BSA 2.14 m Physical Exam Constitutional: General: He is not in acute distress. Appearance: Normal appearance. He is not ill-appearing, toxic-appearing or diaphoretic. HENT: Head: Normocephalic and atraumatic. Nose: Nose normal. Eyes: Extraocular Movements: Extraocular movements intact. Cardiovascular: Rate and Rhythm: Normal rate and regular rhythm. Pulmonary: Effort: Pulmonary effort is normal. No respiratory distress. Breath sounds: Normal breath sounds. Musculoskeletal: General: Tenderness (lower back to lt whole leg) present. Right lower leg: No edema. Left lower leg: No edema. Neurological: General: No focal deficit present. Mental Status: He is alert and oriented to person, place, and time. Psychiatric: Behavior: Behavior normal. ASSESSMENT/PLAN: Osteoarthritis of spine with radiculopathy, lumbosacral region (Primary) - PAIN MEDICINE REFERRAL OP Chronic pain of left knee - ORTHOPAEDICS REFERRAL OP - XR KNEE 4 OR MORE VIEWS S/P hip replacement, left Hepatic encephalopathy (HCC) Alcoholic cirrhosis of liver without ascites (HCC) Check-out note: Xray , referral to pain medicine, ortho F/u with referral Resume PT too Pain med prn Rao Ochoa MD documented in this encounter Nursing Notes * Dayana Menjivar LPN - 03/08/2024 11:37 AM EST Chief Complaint Patient presents with Acute Pt here today due to having left leg and knee (mostly around the knee) and also goes down to his foot. Pt states " It's like numb, and on fire" documented in this encounter Plan of Treatment Upcoming Encounters Date Type Department Care Team (Late st Contact Info) Description 03/12/2024 9:00 AM EST Office Visit Orthopaedics [facility] [address] [place] [address] aJvi Veloz MD [address] [facility] [place] [address] 03/19/2024 10:30 AM EST Office Visit Interventional Pain Center, [facility] [address] [place] [address] Sita Molina PA-C [address] [facility] [place] [address] 05/29/2024 3:40 PM EST Office Visit Neurology [facility] [address] [facility] [place] [address] Britni De La Cruz MD [address] [facility] [place] [address] Scheduled Orders Name Type Priority Associated Diagnoses Orde r Schedule XR KNEE 4 OR MORE VIEWS Medical Imaging Routine Chronic pain of left knee Ordered: 03/08/2024 Scheduled Procedures Name Priority Associated Diagnoses Date/Ti me ESOPHAGOGASTRODUODENOSCOPY ( EGD), FLEXIBLE, TRANSORAL, DIAGNOSTIC Recall Portal hypertensive gastropathy (HCC) Esophageal varices (HCC) COLONOSCOPY FLEXIBLE PROXIMAL DIAGNOSTIC Recall History of colon polyps Scheduled Referrals Name Type Priority Associated Diagnoses Orde r Schedule PAIN MEDICINE REFERRAL OP Referral Within 10 days (routine) Osteoarthritis of spine with radiculopathy, lumbosacral region Ordered: 03/08/2024 ORTHOPAEDICS REFERRAL OP Referral Within 10 days (routine) Chronic pain of left knee Ordered: 03/08/2024 Health Maintenance Due Date Last Done Comments [...] as of this encounter Visit Diagnoses Diagnosis Osteoarthritis of spine with radiculopathy, lumbosacral region- Primary Chronic pain of left knee Pain in joint, lower leg S/P hip replacement, left Hepatic encephalopathy (HCC) Hepatic encephalopathy Alcoholic cirrhosis of liver without ascites (HCC) Alcoholic cirrhosis of liver documented in this encounter Care Teams Sales Administration Specialist Relationship Specialty Start Date End Date Rao Ochoa MD [address] [place] [address] PCP - General Internal Medicine 02/05/24 documented as of this encounter
--- OUTSIDE RECORDS SUMMARY | 2024-04-20 03:16 | External Medical Summary | Summary of Care ---
Author Name Unknown Organization [facility] Address [address] [facility] [address] Phone [phone] Care Team Providers Care Stripper Latex Name Role Phone Rao Ochoa MD Primary Care Provider [phone] Reason for Referral * Medication Prior Authorization - Pending Review Specialty Diagnoses / Procedures Referred By Pj t Referred To Contact Diagnoses Avascular necrosis of bone of left hip (HCC) Peripheral polyneuropathy Rao Ochoa MD [address] [place] [address] Phone: tel: fax: Referral ID Status Reason Start Date Expiration Date V isits Requested Visits Authorized [id number] Pending Review 999 999 Reason for Visit * Reason Onset Date Comments Medication Refill 03/06/2024 Encounter Details Date Type Department Care Team (Late st Contact Info) Description 03/06/[address] [id number] Rao Ochoa MD [address] [facility] [place] [id number] Avascular necrosis of bone of left hip (HCC); Peripheral polyneuropathy Allergies Active Allergy Reactions Criticality Noted Date [...] yrs) 06/06/2020 Pneumococcal Conjugate Vacci ne, 20-valent ([id number]) 06/24/2022 Seasonal Influenza Virus Vac cine, Unspecified [...] 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 Yes and Urine Drug Screen Not completed Please approve if appropriate. Thanks, Olvin Koehler, PharmD Clinical Pharmacist [facility] ([facility]) [phone] 03/08/2024, 8:48 AM documented in this encounter Plan of Treatment Upcoming Encounters Date Type Department Care Team (Late st Contact Info) Description 03/08/2024 11:40 AM EST [facility] [address] [place] [address] Rao Ochoa MD [address] [place] [address] 05/29/2024 3:40 PM EST Office Visit Neurology [facility] [place] [address] [place] [address] Britni De La Cruz MD [address] [place] [address] [place], [place] [address] Scheduled Procedures Name Priority Associated Diagnoses Date/Ti [...] neuropathy documented in this encounter Care Teams Stripper Latex Relationship Specialty Start Date End Date Rao Ochoa MD [address] [place] [address] PCP - General Internal Medicine 02/05/24 documented as of this encounter
--- OUTSIDE RECORDS SUMMARY | 2024-04-20 03:16 | External Medical Summary | Summary of Care ---
Author Name Unknown Organization [facility] Address [address] [facility] [place] [address] Phone [phone] Care Team Providers Care Tattoo Identifier Name Role Phone Rao Ochoa MD Primary Care Provider [phone] Reason for Visit * Reason Comments eRx-Medication Refill Encounter Details Date Type Department Care Team (Late st Contact Info) Description 03/06/[address] [address] Rao Ochoa MD [address] [place] [phone] Avascular necrosis of bone of left hip [...] the Emergency room. 2 Each 1 08/17/19 Active Additional Information Patient not taking.Reported on 01/17/2024 Zinc Acetate 50 MG Oral Capsule Take by mouth 2 times a day. Active Furosemide 40 MG Oral Tablet (Lasix) Take 1 tab by mouth daily 90 Tablet 1 01/02/20 24 Active traMADol HCl 50 MG Oral Tablet (Ultram)Indication s:Avascular necrosis of bone of left hip (HCC),Peripheral polyneuropathy Take 1 Tablet by mouth daily as needed for Pain, Severe. Not more than #15 per month due to liver condition 15 Tablet 01/16/20 24 Active rifAXIMin 550 MG Oral Tablet [...] bedtime. 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 Answer Date of Assessment Author Yes 08/23/2021 12:08 PM EDT documented as of this encounter Miscellaneous Notes * Telephone Encounter - Olvin Koehler RP - 03/08/2024 8:50 AM EST Refused Prescriptions: Disp Refills traMADol HCl 50 MG Oral Tablet (Ultram) 15 Tab*0 Sig: Take 1 Tablet by mouth daily as needed for Pain, Severe. Not more than #15 per month due to liver conditionRefused By: [facility] for Refusal: Duplicate Request documented in this encounter Plan of Treatment Upcoming Encounters Date Type Department Care Team (Late st Contact Info) Description 03/08/2024 11:40 AM EST Office Visit [facility] [place] [address] [place] [address] Rao Ochoa MD [address] [place] [address] 05/29/2024 3:40 PM EST Office Visit [facility] [place] [address] [facility] [place] [address] Britni De La Cruz MD [address] [facility] [place] [address] Scheduled Procedures Name Priority Associated Diagnoses Date/Ti [...] neuropathy documented in this encounter Care Teams Tattoo Identifier Relationship Specialty Start Date End Date Rao Ochoa MD [address] [place] [address] PCP - General Internal Medicine 02/05/24 documented as of this encounter
--- OUTSIDE RECORDS SUMMARY | 2024-04-20 03:16 | External Medical Summary | Summary of Care ---
Author Name Unknown Organization [facility] Address [address] [facility] [place] [address] Phone [phone] Care Team Providers Care Patient Care Secretary Name Role Phone Rao Ochoa MD Primary Care Provider [phone] Reason for Visit * Reason Onset Date Comments Test Results Imaging Study 03/08/2024 Encounter Details Date Type Department Care Team (Late st Contact Info) Description 03/08/2024 Telephone Gastroenterology, [facility] [address] [place] [address] Ki Huang MD [address] [place] [id number] Test Results Imaging Study Allergies Active Allergy Reactions Criticality Noted Date [...] heart disease 002 Overview (11/29/2001): father had OR's in 40's Gastroesophageal reflux [...] cardiac murmurs 11/29/2001 03/02/2017 Overview (11/29/2001): Not [place] on 11/29/01 documented as of this encounter (statuses as of 03/08/2024) Immunizations Name Administration Dates Next Due HEP A - Hepatitis A (Adult > 18 yrs) 06/06/2020 Pneumococcal Conjugate Vacci ne, 20-valent ([id number]) 06/24/2022 Seasonal Influenza Virus Vac cine, Unspecified [...] 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 Answer Date of Assessment Author Yes 08/23/2021 12:08 PM EDT documented as of this encounter Miscellaneous Notes * Telephone Encounter - Falguni Ritter LPN - 03/08/2024 8:50 AM EST ----- Message from Ki Huang MD sent at 03/07/2024 4:39 PM EST ----- Please let pt know that his MRI did not show any evidence of HCC. The lesions seen on ultrasound were liver cysts. He also has two small panc cysts which are not a cause for concern. He should have repeat uls in 6 mos for hCC screen. documented in this encounter Plan of Treatment Upcoming Encounters Date Type Department Care Team (Late st Contact Info) Description 03/08/2024 11:40 AM EST [facility] [address] [place] [place] [address] Rao Ochoa MD [address] [place] [address] 05/29/2024 3:40 PM EST Office Visit [facility] [place] [address] [place] [address] Britni De La Cruz MD [address] [place] [address] [place] [address] Scheduled Procedures Name Priority Associated Diagnoses Date/Ti [...] filedocumented as of this encounter Care Teams Patient Care Secretary Relationship Specialty Start Date End Date Rao Ochoa MD [address] [place] [address] PCP - General Internal Medicine 02/05/24 documented as of this encounter
--- OUTSIDE RECORDS SUMMARY | 2024-04-20 03:16 | External Medical Summary | Summary of Care ---
Author Name Unknown Organization [facility] Address [address] [facility] [place] [address] Phone [phone] Care Team Providers Care Telecom Manager Name Role Phone Rao Ochoa MD Primary Care Provider [phone] Reason for Visit * Reason Onset Date Comments Appointment 03/05/2024 Acute appt Encounter Details Date Type Department Care Team (Late st Contact Info) Description 03/05/2024 Telephone [facility] Ilsa Whitney [address] [place] [address] Rao Ochoa MD [address] [facility] [place] [address] Appointment (Acute appt) Allergies Active Allergy Reactions Criticality Noted Date Comments Other Allergy (See Comments) Anaphylaxis High 06/21/2018 Bee stings- swelling documented as of this encounter (statuses as of 03/06/2024) Medications Iron (Ferrous Sulfate) 325 (65 Fe) [...] as of this encounter (statuses as of 03/06/2024) Active Problems Problem Noted Date Diagnosed Date [...] as of this encounter (statuses as of 03/06/2024) Resolved Problems Problem Noted Date Diagnosed Date [...] cardiac murmurs 11/29/2001 03/02/2017 Overview (11/29/2001): Not [place] on 11/29/01 documented as of this encounter (statuses as of 03/06/2024) Immunizations Name Administration Dates Next Due HEP A - Hepatitis A (Adult > 18 yrs) 06/06/2020 Pneumococcal Conjugate Vacci ne, 20-valent ([id number]) 06/24/2022 Seasonal Influenza Virus Vac cine, Unspecified [...] 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 Answer Date of Assessment Author Yes 08/23/2021 12:08 PM EDT documented as of this encounter Miscellaneous Notes * Telephone Encounter - Maylin Sutton OSA - 03/06/2024 1:37 PM EST Done. 03/06/2024 * Telephone Encounter - Meri Burnett OSA - 03/05/2024 11:41 AM EST No Appointments Available Patient declined appointments?: Yes What Visit Type is needed? Acute If Acute Visit Type is needed, were surrounding clinics offered to patient (Yes/No)? Yes Was patient offered appointments with other available providers (Yes/No)? Yes See Call Details? (Yes or No): Yes documented in this encounter Plan of Treatment Upcoming Encounters Date Type Department Care Team (Late st Contact Info) Description 03/08/2024 11:40 AM EST Office Visit Bertha Bravo [address] [place] [id number] Rao Ochoa MD [address] [place] [address] 05/29/2024 3:40 PM EST Office Visit Neurology [place] [facility] [address] [facility] [place] [address] Britni De La Cruz MD [address] [facility] [place] [address] Scheduled Procedures Name Priority Associated Diagnoses Date/Ti [...] filedocumented as of this encounter Care Teams Telecom Manager Relationship Specialty Start Date End Date Rao Ochoa MD [address] [place] [address] PCP - General Internal Medicine 02/05/24 documented as of this encounter
--- OUTSIDE RECORDS SUMMARY | 2024-04-20 03:16 | External Medical Summary | Summary of Care ---
Author Name Unknown Organization [facility] Address [address] [facility] [place] [address] Phone [phone] Care Team Providers Care Senior Capital Markets Specialist Name Role Phone Rao Ochoa MD Primary Care Provider [phone] Reason for Visit * Reason Onset Date Comments [facility]: Screening 03/01/2024 Encounter Details Date Type Department Care Team (Late st Contact Info) Description 03/01/2024 Telephone [facility], [facility] [address] [facility] [place] [address] Micaela Stevenson LPN [address] [place] [address] [facility]: Screening Allergies Active Allergy Reactions Criticality Noted Date Comments Other Allergy (See Comments) Anaphylaxis High 06/21/2018 Bee stings- swelling documented as of this encounter (statuses as of 03/01/2024) Medications Iron (Ferrous Sulfate) 325 (65 Fe) [...] by mouth BEFORE BEDTIME 60 Tablet 5 10/22/20 24 Active Gabapentin 300 MG Oral Capsule (Neurontin) Take 1 Capsule by mouth at bedtime. 30 Capsule 5 01/26/20 Active Lactulose 10 GM/15ML Oral Solution (Constulose)Indica tions:Hyperammonem ia (HCC) Take 30 mL by mouth in the morning and 30 mL at noon and 30 mL in the evening and 30 mL before bedtime. 946 mL 11 02/15/20 Active Hospital, Clinic, or Other Facility Administered Medication Ordered Dose Route Frequency Start Date End Date Status albuterol sulfate (PROVENTIL) (2.5 MG/3ML) 0.083% inhalation solution 2.5 mgIndications:SOB (shortness of breath) 2.5 mg NEBULIZER Q4H PRN 05/10/2018 Act guzman documented as of this encounter (statuses as of 03/01/2024) Active Problems Problem Noted Date Diagnosed Date [...] as of this encounter (statuses as of 03/01/2024) Resolved Problems Problem Noted Date Diagnosed Date [...] cardiac murmurs 11/29/2001 03/02/2017 Overview (11/29/2001): Not [place] on 11/29/01 documented as of this encounter (statuses as of 03/01/2024) Immunizations Name Administration Dates Next Due HEP A - Hepatitis A (Adult > 18 yrs) 06/06/2020 Pneumococcal Conjugate Vacci ne, 20-valent ([id number]) 06/24/2022 Seasonal Influenza Virus Vac cine, Unspecified [...] 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 Answer Date of Assessment Author Yes 08/23/2021 12:08 PM EDT documented as of this encounter Miscellaneous Notes * Telephone Encounter - Micaela Stevenson LPN - 03/01/2024 3:29 PM EST Mauro Liu was referred as a potential candidate for enrollment for [facility]. A review of this chart was completed and: Mauro does not meet criteria for enrollment into [facility]. Referral Source: Monthly Proactive Eligibility List Criteria for Ineligibility: Not Located in Service Area Referring care team was notified via : [employer] communication Recently declined [facility] no new conditions since documented in this encounter Plan of Treatment Upcoming Encounters Date Type Department Care Team (Late st Contact Info) Description 05/29/2024 3:40 PM EST Office Visit Neurology [facility] [place] [address] [place] [address] Britni De La Cruz MD [address] [place] [address] Scheduled Procedures Name Priority Associated Diagnoses Date/Ti [...] as of this encounter Care Teams Senior Capital Markets Specialist Relationship Specialty Start Date End Date Rao Ochoa MD [address] [place] [address] PCP - General Internal Medicine 02/05/24 documented as of this encounter
--- OUTSIDE RECORDS SUMMARY | 2024-04-20 03:17 | External Medical Summary | Summary of Care ---
Author Name Unknown Organization [facility] Address [address] [facility] [place] [address] Phone [phone] Care Team Providers Care Discharge Planner Name Role Phone Rao Ochoa MD Primary Care Provider [phone] Reason for Visit * Reason Onset Date Comments Test Results 01/05/2024 Encounter Details Date Type Department Care Team (Late st Contact Info) Description 01/05/2024 Telephone Gastroenterology, [facility] [address] [place] [address] Ki Huang MD [address] [place] [address] Test Results Allergies Active Allergy Reactions Criticality Noted Date Comments Other Allergy (See Comments) Anaphylaxis High 06/21/2018 Bee stings- swelling documented as of this encounter (statuses as of 01/17/2024) Medications Medication Sig Dispensed Refills Start Date [...] the morning. 90 Capsule 3 06/25/2023 Active Gabapentin 300 MG Oral Capsule (Neurontin) Take 1 Capsule by mouth at bedtime. 30 Capsule 5 07/06/2023 Active traZODone HCl 50 MG Oral Tablet (Desyrel)Indication s:Primary insomnia Take 2 Tablets by mouth at bedtime. 180 Tablet 3 07/07/2023 Active LORazepam 0.5 MG Oral Tablet (Ativan) [...] Emergency room. 2 Each 1 08/17/2023 Active rifAXIMin 550 MG Oral Tablet (Xifaxan) take 1 tablet by mouth IN THE MORNING then take 1 tablet by mouth BEFORE BEDTIME 60 Tablet 12/18/2023 Active Zinc Acetate 50 MG Oral Capsule Take by mouth 2 times a day. Active Lactulose 10 GM/15ML Oral Solution (Constulose)Indicat ions:Hyperammonemia (HCC) Take 30 mL by mouth in the morning and 30 mL at noon and 30 mL in the evening and 30 mL before bedtime. 946 mL 01/01/2024 Active Furosemide 40 MG Oral Tablet (Lasix) Take 1 tab by mouth daily 90 Tablet 1 01/02/2024 Active traMADol HCl 50 MG Oral Tablet (Ultram)Indications :Avascular necrosis of bone of left hip (HCC),Peripheral polyneuropathy Take 1 Tablet by mouth daily as needed for Pain, Severe. Not more than #15 per month due to liver condition 15 Tablet 11/30/2023 4 Discontinu ed(Refill) Hospital, Clinic, or Other Facility Administered Medication Ordered Dose Route Frequency Start Date End Date Status albuterol sulfate (PROVENTIL) (2.5 MG/3ML) 0.083% inhalation solution 2.5 mgIndications:SOB (shortness of breath) 2.5 mg NEBULIZER Q4H PRN 05/10/2018 Act guzman documented as of this encounter (statuses as of 01/17/2024) Active Problems Problem Noted Date Diagnosed Date [...] 017 Family history of ischemic heart disease 08/29/2 002 Overview: father had AK's in 40's Gastroesophageal reflux disease with esophagitis documented as of this encounter (statuses as of 01/17/2024) Resolved Problems Problem Noted Date Diagnosed Date [...] Undiagnosed cardiac murmurs 11/29/2001 03/02/2017 Overview: Not [place] on 11/29/01 documented as of this encounter (statuses as of 01/17/2024) Immunizations Name Administration Dates Next Due HEP A - Hepatitis A (Adult > 18 yrs) 06/06/2020 Pneumococcal Conjugate Vacci ne, 20-valent ([id number]) 06/24/2022 Seasonal Influenza Virus Vac cine, Unspecified [...] Telephone Encounter - Falguni Ritter LPN - 01/16/2024 4:16 PM EDT Has not returned call. MyG message sent * Telephone Encounter - Lesly Turner CMA - 01/11/2024 9:01 AM EDT LM viola Morales to call office RE: note. * Telephone Encounter - Linnette Christianson OSA - 01/05/2024 3:00 PM EDT See letter from 01/03/24, pt to have MRI of liver per Dr. Huang. * Telephone Encounter - Lesly Turner CMA - 01/05/2024 10:23 AM EDT Images from the original note were not included. LM viola Morales (significant other) to call back RE: note. ----- Message from Ki Huang MD sent at 01/04/2024 10:31 PM EDT ----- Nurses - can you call pt 's significant other, and discuss lab works. His creatinine is up from baseline - please confirm diuretic dose with pt. He was previously taking lasix 40 daily; please ask him to hold for 2 days and then resume. Of note, his recent ultrasound did not show ascites. He also missed his apptment with Mellissa, and has been difficult to reach to reschedule. Can he be rescheduled for mellissa within 2-3 weeks? Ki Huang MD P [facility] Gastro Nurse Pool/Class Pt's copper levels are mildly low. He should dc zinc supplements, which can interfere with copper absorption. documented in this encounter Plan of Treatment Upcoming Encounters Date Type Department Care Team (Late st Contact Info) Description 01/17/2024 3:40 PM EDT Office Visit Neurology [facility] [address] [place] [address] Britni De La Cruz MD [address] [facility] [place] [address] 02/03/2024 11:00 AM EDT Imaging Radiology [address] [place] [address] Scheduled Procedures Name Priority Associated Diagnoses Date/Ti [...] filedocumented as of this encounter Care Teams Discharge Planner Relationship Specialty Start Date End Date Rao Ochoa MD [address] [place] [address] PCP - General Internal Medicine 10/11/23 documented as of this encounter
--- OUTSIDE RECORDS SUMMARY | 2024-04-20 03:17 | External Medical Summary | Summary of Care ---
Author Name Unknown Organization [facility] Address [address] [facility] [place] [address] Phone [phone] Care Team Providers Care Vp Rheumatology Name Role Phone Rao Ochoa MD Primary Care Provider [phone] Reason for Visit * Reason Onset Date Comments Appointment 02/21/2024 Encounter Details Date Type Department Care Team (Late st Contact Info) Description 02/21/2024 Telephone [address] [place] [id number] Aisha Barboza, RT (M) Appointment Allergies Active Allergy Reactions Criticality Noted Date Comments Other Allergy (See Comments) Anaphylaxis High 06/21/2018 Bee stings- swelling documented as of this encounter (statuses as of 02/21/2024) Medications Iron (Ferrous Sulfate) 325 (65 Fe) [...] as of this encounter (statuses as of 02/21/2024) Active Problems Problem Noted Date Diagnosed Date [...] heart disease 002 Overview (11/29/2001): father had ND's in 40's Gastroesophageal reflux disease with esophagitis documented as of this encounter (statuses as of 02/21/2024) Resolved Problems Problem Noted Date Diagnosed Date [...] cardiac murmurs 11/29/2001 03/02/2017 Overview (11/29/2001): Not [place] on 11/29/01 documented as of this encounter (statuses as of 02/21/2024) Immunizations Name Administration Dates Next Due HEP A - Hepatitis A (Adult > 18 yrs) 06/06/2020 Pneumococcal Conjugate Vacci ne, 20-valent ([id number]) 06/24/2022 Seasonal Influenza Virus Vac cine, Unspecified [...] 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 Answer Date of Assessment Author Yes 08/23/2021 12:08 PM EDT documented as of this encounter Miscellaneous Notes * Telephone Encounter - Aisha Barboza RT (M) - 02/21/2024 6:34 PM EST If you answer "yes" to any of the following, please give us a call at [phone] before coming to your MRI appointment: Do you have a pacemaker/defibrillator? Do you have any electronic or mechanical implants? Have you had a recent colonoscopy in the last 30 days? Are you or ? Do you work around metal or ever gotten metal in your eyes? Any dermals or body piercing you cannot remove? Do you wear an insulin pump or diabetic monitor? Have you had any tattoos or permanent makeup in the last 4 weeks? LM to arrive at 3:30 PM on 02/28/24 documented in this encounter Plan of Treatment Upcoming Encounters Date Type Department Care Team (Late st Contact Info) Description 02/28/2024 4:00 PM EST Imaging Radiology [address] [place] [address] 05/29/2024 3:40 PM EST Office Visit Neurology [facility] [address] [place] [address] Brinti De La Cruz MD [address] [place] [address] Scheduled Procedures Name Priority Associated Diagnoses Date/Ti [...] filedocumented as of this encounter Care Teams Vp Rheumatology Relationship Specialty Start Date End Date Rao Ochoa MD [address] [place] [address] PCP - General Internal Medicine 02/05/24 documented as of this encounter
--- OUTSIDE RECORDS SUMMARY | 2024-04-20 03:17 | External Medical Summary | Summary of Care ---
Author Name Unknown Organization [facility] Address [address] [facility] [place] [address] Phone [phone] Care Team Providers Care Clinical Research Monitor Name Role Phone Rao Ochoa MD Primary Care Provider [phone] Reason for Visit * Reason Onset Date Comments Test Results 01/05/2024 Encounter Details Date Type Department Care Team (Late st Contact Info) Description 01/05/2024 Telephone Gastroenterology, [facility] [address] [place] [address] Ki Huang MD [address] [place] [address] Test Results Allergies Active Allergy Reactions Criticality Noted Date Comments Other Allergy (See Comments) Anaphylaxis High 06/21/2018 Bee stings- swelling documented as of this encounter (statuses as of 01/16/2024) Medications Medication Sig Dispensed Refills Start Date [...] as of this encounter (statuses as of 01/16/2024) Active Problems Problem Noted Date Diagnosed Date [...] heart disease 08/29/2 002 Overview: father had DE's in 40's Gastroesophageal reflux disease with esophagitis documented as of this encounter (statuses as of 01/16/2024) Resolved Problems Problem Noted Date Diagnosed Date [...] Undiagnosed cardiac murmurs 11/29/2001 03/02/2017 Overview: Not [place] on 11/29/01 documented as of this encounter (statuses as of 01/16/2024) Immunizations Name Administration Dates Next Due HEP A - Hepatitis A (Adult > 18 yrs) 06/06/2020 Pneumococcal Conjugate Vacci ne, 20-valent ([id number]) 06/24/2022 Seasonal Influenza Virus Vac cine, Unspecified [...] CMA - 01/11/2024 9:01 AM EDT LM for Carmen to call office RE: note. * Telephone Encounter - Linnette Christianson OSA - 01/05/2024 3:00 PM EDT See letter from 01/03/24, pt to have MRI of liver per Dr. Huang. * Telephone Encounter - Lesly Turner CMA - 01/05/2024 10:23 AM EDT Images from the original note were not included. LM for Carmen (significant other) to call back RE: note. [...] ascites. He also missed his apptment with Marilou, and has been difficult to reach to reschedule. Can he be rescheduled for marilou within 2-3 weeks? Ki Huang MD P [place] [facility] Nurse Pool/Class Pt's copper levels are mildly low. He should dc zinc supplements, which can interfere with copper absorption. documented in this encounter Plan of Treatment Upcoming Encounters Date Type Department Care Team (Late st Contact Info) Description 01/17/2024 3:40 PM EDT Office Visit Neurology [facility] [address] [facility] [address] Britni De La Cruz MD [address] [facility] [place] [address] 02/03/2024 11:00 AM EDT Imaging Radiology [address] [place] [address] Scheduled Procedures Name Priority Associated Diagnoses Date/Ti [...] filedocumented as of this encounter Care Teams Clinical Research Monitor Relationship Specialty Start Date End Date Rao Ochoa MD [address] [place] [address] PCP - General Internal Medicine 10/11/23 documented as of this encounter
--- OUTSIDE RECORDS SUMMARY | 2024-04-20 03:17 | External Medical Summary | Summary of Care ---
Author Name Unknown Organization [facility] Address [address] [facility] [address] Phone [phone] Care Team Providers Care Glassware Engraver Name Role Phone Georgia Ochoa MD Primary Care Provider [phone] Reason for Visit * Reason Onset Date Comments Medication Refill 01/14/2024 Encounter Details Date Type Department Care Team (Late st Contact Info) Description 01/14/2024 Refill [facility] [address] [place] [address] [place] Ochoa MD [address] [place] [address] Avascular necrosis of bone of [...] month due to liver condition 15 Tablet 01/16/2024 Active traMADol HCl 50 MG Oral Tablet [...] Undiagnosed cardiac murmurs 11/29/2001 03/02/2017 Overview: Not [place] on 11/29/01 documented as of this encounter (statuses as of 01/16/2024) Immunizations Name Administration Dates Next Due HEP A - Hepatitis A (Adult > 18 yrs) 06/06/2020 Pneumococcal Conjugate Vacci ne, 20-valent ([id number]) 06/24/2022 Seasonal Influenza Virus Vac cine, Unspecified [...] Telephone Encounter - Georgia Ochoa MD - 01/16/2024 9:36 AM EDTSigned Prescriptions: Disp Refills traMADol HCl 50 MG Oral Tablet (Ultram) 15 Tab*0 Sig: Take 1 Tablet by mouth daily as needed for Pain, Severe. Not more than #15 per month due to liver condition Authorizing Provider: GEORGIA OCHOA * Telephone Encounter - Betina Winston [facility] - 01/16/2024 8:56 AM EDT Pending Prescriptions: Disp Refills traMADol HCl 50 MG Oral Tablet (Ultram) 15 Tab*0 Sig: Take 1 Tablet by mouth daily as needed for Pain, Severe. Not more than #15 per month due to liver condition * Telephone Encounter - Betina Winston [facility] - 01/16/2024 8:56 AM EDT I have reviewed the patients controlled substance dispensing history in the Prescription Drug Monitoring Program in compliance with the [facility] regulations before prescribing a controlled substance. PDMP checked on 01/16/2024. Pending Prescriptions: Disp Refills traMADol HCl 50 MG Oral Tablet (Ultram) 15 Tab*0 Sig: Take 1 Tablet by mouth daily as needed for Pain, Severe. Not more than #15 per month due to liver condition Last Visit: 11/30/2023 (in office), Visit date not found (telemedicine) Next Visit: 01/16/2024 Date medication was last filled: 12/08/23 Date medication is due for refill: 01/06/24 Pharmacy: [id number] [facility] Is this request for a controlled substance? Yes and Urine Drug Screen was completed Toxicology results: Results for orders placed [...] Review. Please approve if appropriate. Thank you, Betina Winston, PharmD Clinical Pharmacist [facility] ([facility]) 01/16/24 8:56 AM [phone] documented in this encounter Plan of Treatment Upcoming Encounters Date Type Department Care Team (Late st Contact Info) Description 01/16/2024 3:20 PM EDT Office Visit [facility] [address] [place] [phone] [place] Ochoa MD [address] [place] [address] 01/17/2024 3:40 PM EDT Office Visit Neurology [facility] [address] [place] [address] Britni De La Cruz MD [address] [place] [address] 02/03/2024 11:00 AM EDT Imaging Radiology [address] [place], [place] [id number] Scheduled Procedures Name Priority Associated Diagnoses Date/Ti [...] neuropathy documented in this encounter Care Teams Glassware Engraver Relationship Specialty Start Date End Date Georgia Ochoa MD [address] [place] [address] PCP - General Internal Medicine 10/11/23 documented as of this encounter
--- OUTSIDE RECORDS SUMMARY | 2024-04-20 03:17 | External Medical Summary | Summary of Care ---
Author Name Unknown Organization [facility] [address] [facility] [address] Phone [phone] Care Team Providers Care Manager Rental Name Role Phone Georgia Ochoa MD Primary Care Provider [phone] Reason for Visit * Reason Comments eRx-Medication Refill Encounter Details Date Type Department Care Team (Late st Contact Info) Description 02/13/2024 Refill [facility] [address] [place] [address] Georgia Ochoa MD [address] [place] [address] Hyperammonemia (HCC) Allergies Active Allergy Reactions Criticality Noted Date Comments Other Allergy (See Comments) Anaphylaxis High 06/21/2018 Bee stings- swelling documented as of this encounter (statuses as of 02/15/2024) Medications Iron (Ferrous Sulfate) 325 (65 Fe) [...] left hip 150 g 5 023 Active Additional Information Patient not taking.Reported on [...] affected area. 60 g 5 024 Active FLUoxetine HCl 10 MG Oral Capsule (PROzac) Take 1 Capsule by mouth in the morning. 90 Capsule 3 024 Active traZODone HCl 50 MG Oral Tablet (Desyrel)Indicati ons:Primary insomnia Take 2 Tablets by mouth at bedtime. 180 Tablet 3 024 Active LORazepam 0.5 MG Oral Tablet (Ativan) Take 1 Tablet by mouth every 6 hours as needed. 024 Active Spironolactone 25 MG Oral Tablet (Aldactone) Take 1 Tablet by mouth in the morning. Active EpiPen 2-Dave 0.3 MG/0.3ML Injection Solution Auto-injector For a severe reaction: Place orange end against the outer thigh, press firmly, hold in place for 10 seconds and go to the Emergency room. 2 Each 1 Active Additional Information Patient not taking.Reported on 01/17/2024 Zinc Acetate 50 MG Oral Capsule Take by mouth 2 times a day. Active Furosemide 40 MG Oral Tablet (Lasix) Take 1 tab by mouth daily 90 Tablet 1 024 Active traMADol HCl 50 MG Oral Tablet (Ultram)Indicatio ns:Avascular necrosis of bone of left hip (HCC),Peripheral polyneuropathy Take 1 Tablet by mouth daily as needed for Pain, Severe. Not more than #15 per month due to liver condition 15 Tablet 024 Active rifAXIMin 550 MG Oral Tablet (Xifaxan) [...] mL before bedtime. 946 mL 11 Active Lactulose 10 GM/15ML Oral Solution (Constulose)Indic ations:Hyperammon emia (HCC) Take 30 mL by mouth in the morning and 30 mL at noon and 30 mL in the evening and 30 mL before bedtime. 946 mL 024 2023 Discontinued Hospital, Clinic, or Other Facility Administered Medication Ordered Dose Route Frequency Start Date End Date Status albuterol sulfate (PROVENTIL) (2.5 MG/3ML) 0.083% inhalation solution 2.5 mgIndications:SOB (shortness of breath) 2.5 mg NEBULIZER Q4H PRN 05/10/2018 Act guzman documented as of this encounter (statuses as of 02/15/2024) Active Problems Problem Noted Date Diagnosed Date [...] heart disease 002 Overview (11/29/2001): father had CA's in 40's Gastroesophageal reflux disease with esophagitis documented as of this encounter (statuses as of 02/15/2024) Resolved Problems Problem Noted Date Diagnosed Date [...] cardiac murmurs 11/29/2001 03/02/2017 Overview (11/29/2001): Not [place] on 11/29/01 documented as of this encounter (statuses as of 02/15/2024) Immunizations Name Administration Dates Next Due HEP A - Hepatitis A (Adult > 18 yrs) 06/06/2020 Pneumococcal Conjugate Vacci ne, 20-valent ([id number]) 06/24/2022 Seasonal Influenza Virus Vac cine, Unspecified [...] 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 Answer Date of Assessment Author Yes 08/23/2021 12:08 PM EDT documented as of this encounter Miscellaneous Notes * Telephone Encounter - Georgia Ochoa MD - 02/15/2024 11:17 AM ESTSigned Prescriptions: Disp Refills Lactulose 10 GM/15ML Oral Solution (Constu*946 mL 11 Sig: Take 30 mL by mouth in the morning and 30 mL at noon and 30 mL in the evening and 30 mL before bedtime. Authorizing Provider: GEORGIA OCHOA * Telephone Encounter - Maryann Quesada [facility] - 02/15/2024 11:08 AM ESTPending Prescriptions: Disp Refills Lactulose 10 GM/15ML Oral Solution [Pharma*946 mL 0 Sig: Take 30 mL by mouth in the morning and 30 mL at noon and 30 mL in the evening and 30 mL before bedtime. * Telephone Encounter - Maryann Quesada RP - 02/15/2024 11:07 AM EST [facility] is currently not authorized to approve refills for the pended medication(s) per refill protocol. Please approve if appropriate. Did you pend patient's preferred pharmacy and medication before forwarding?yes [id number] [address] [facility] Pending Prescriptions: Disp Refills Lactulose 10 GM/15ML Oral Solution [Pharma*946 mL 0 Sig: Take 30 mL by mouth in the morning and 30 mL at noon and 30 mL in the evening and 30 mL before bedtime. Last Visit: 01/16/2024 (in office), Visit date not found (telemedicine) Next Visit: Visit date not found If no future appointments scheduled, and last appointment is greater than a year ago, please schedule patient for a follow-up appointment Last date the medication was ordered: 01/01/24 Is this request for a controlled substance?No [...] found in Results Review. Patient Phone Numbers Labs: Lab Results Component Value Date/Time CREAT [...] AM HGBA1C 5.0 08/11/2023 08:43 AM Thank You, Maryann Quesada [facility] Pharmacist Telepharmacy [phone] 02/15/2024, 11:07 AM * Telephone Encounter - Grisel Burleson OSA - 02/13/2024 12:42 PM EST Patient calling in to check on the status of previous message. Patient Called within 48 hour timeframe. Reminded patient of 48 hour turn-around time. documented in this encounter Plan of Treatment Upcoming Encounters Date Type Department Care Team (Late st Contact Info) Description 02/28/2024 4:00 PM EST Imaging Radiology [address], [place] [address] [facility] [place] [address] 05/29/2024 3:40 PM EST Office Visit Neurology [facility] [place] [address] [place] [address] Britni De La Cruz MD [address] [place] [address] Scheduled Procedures Name Priority Associated Diagnoses Date/Ti [...] Hyperammonemia (HCC) Disorders of urea cycle metabolism documented in this encounter Care Teams Manager Rental Relationship Specialty Start Date End Date Georgia Ochoa MD [address] [place] [address] PCP - General Internal Medicine 02/05/24 documented as of this encounter
--- OUTSIDE RECORDS SUMMARY | 2024-04-20 03:17 | External Medical Summary | Summary of Care ---
Author Name Unknown Organization [facility] Address [address] [place] [facility] [place] [address] Phone [phone] Care Team Providers Care Senior Restaurant Manager Name Role Phone Rao Ochoa MD Primary Care Provider [phone] Reason for Visit * Reason Comments Return Neuro Patient reports left side shoulder nerve pain and states worsening tingling in leg and feels like leg is on fire. Also complains of upper right quadrant abdominal pain. 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 Would like to get an accessible space parking permit and electric scooter. Encounter Details Date Type Department Care Team (Late st Contact Info) Description 01/17/2024 3:40 PM EDT Office Visit Neurology [facility] [address] [facility] [place] [address] Britni De La Cruz MD [address] [place] [address] Memory loss*; Pain in both lower extremities Allergies Active Allergy Reactions Criticality Noted Date [...] on 10/10/2023 Gabapentin 100 MG Oral Capsule (Neurontin)Indicatio ns:Complaint [...] Emergency room. 2 Each 1 08/17/2023 Active Additional Information Patient not taking.Reported on 01/17/2024 rifAXIMin 550 MG Oral Tablet (Xifaxan) take 1 tablet by mouth IN THE MORNING then take 1 tablet by mouth BEFORE BEDTIME 60 Tablet 12/18/2023 Active Zinc Acetate 50 MG Oral Capsule Take by mouth 2 times a day. Active Lactulose 10 GM/15ML Oral Solution (Constulose)Indicati [...] Avascular necrosis of bone of left hip (HCC),Peripheral polyneuropathy Take 1 Tablet by mouth daily as needed for Pain, Severe. Not more than #15 per month due to liver condition 15 Tablet 01/16/2024 Active Hospital, Clinic, or Other Facility Administered [...] yrs) 06/06/2020 Pneumococcal Conjugate Vacci ne, 20-valent ([id number]) 06/24/2022 Seasonal Influenza Virus Vac cine, Unspecified [...] Sign Reading Time Taken Comments Blood Pressure 110/54 01/17/2024 2:55 PM EDT Pulse 68 01/17/2024 2:55 PM EDT Temperature - - Respiratory Rate 16 01/17/2024 2:55 PM EDT Oxygen Saturation 95% 01/17/2024 2:55 PM EDT Inhaled Oxygen Concentration - - Weight 93.8 kg (206 lb 14.4 oz) 01/17/2024 2:55 PM EDT Height - - Body Mass Index 30.54 01/16/2024 3:14 PM EDT documented in this encounter Functional Status Functional Status Response Date of Assess ment Does this person have seriou s difficulty walking or climbing stairs? Yes 08/23/2021 documented as of this encounter Progress Notes * Britni De La Cruz MD - 01/17/2024 3:13 PM EDT Progress Note - Neurology [facility] [address] [place] [address] NAME: Mauro Liu Date of : 1965 Date of Visit: 01/17/24 Chief Complaint: Chief Complaint Patient presents with Return Neuro Patient reports left side shoulder nerve pain and states worsening tingling in leg and feels like leg is on fire. Also complains of upper right quadrant abdominal pain. 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 Would like to get an accessible space parking permit and electric scooter. Subjective: f/u memory loss Neuro ROS: neg for stroke sx; still burning pain lowers; nonradiating left shoulder pain HOME MEDICATIONS : Current Outpatient Medications Medication Sig Dispense Refill Iron (Ferrous Sulfate) 325 (65 Fe) MG Oral Tablet Take by mouth. Atorvastatin Calcium 20 MG Oral Tablet (Lipitor) Take 1 Tablet by mouth in the morning. 90 Tablet 1 Gabapentin 100 MG Oral Capsule (Neurontin) take [...] mouth in the morning. 90 Capsule 3 Gabapentin 300 MG Oral Capsule (Neurontin) Take 1 Capsule by mouth at bedtime. 30 Capsule 5 traZODone HCl 50 MG Oral Tablet (Desyrel) Take 2 Tablets by mouth at bedtime. 180 Tablet 3 LORazepam 0.5 MG Oral Tablet (Ativan) Take 1 Tablet by mouth every 6 hours as needed. rifAXIMin 550 MG Oral Tablet (Xifaxan) take 1 tablet by mouth IN THE MORNING then take 1 tablet by mouth BEFORE BEDTIME 60 Tablet 0 Lactulose 10 GM/15ML Oral Solution (Constulose) Take 30 mL by mouth in the morning and 30 mL at noon and 30 mL in the evening and 30 mL before bedtime. 946 mL 0 Furosemide 40 MG Oral Tablet (Lasix) Take 1 tab by mouth daily 90 Tablet 1 traMADol HCl 50 MG Oral Tablet (Ultram) Take 1 Tablet by mouth daily as needed for Pain, Severe. Not more than #15 per month due to liver condition 15 Tablet 0 Diclofenac Sodium 1 % External Gel (Voltaren) Apply topically to affected area 2 times a day. Applyto area lateral to left hip (Patient not taking: Reported on 10/10/2023) 150 g 5 Spironolactone 25 MG Oral Tablet (Aldactone) Take 1 Tablet by mouth in the morning. (Patient not taking: Reported on 01/16/2024) EpiPen 2-Dave 0.3 MG/0.3ML Injection Solution Auto-injector For a severe reaction: Place orange end against the outer thigh, press firmly, hold in place for 10 seconds and go to the Emergency room. (Patient not taking: Reported on 01/17/2024) 2 Each 1 Zinc Acetate 50 MG Oral Capsule Take by mouth 2 times a day. (Patient not taking: Reported on 01/17/2024) Current Facility-Administered Medications Medication Dose Route Frequency Provider Last Rate Last Admin albuterol sulfate (PROVENTIL) (2.5 MG/3ML) 0.083% inhalation solution 2.5 mg 2.5 mg Nebulizer Q4H PRN Toby Paz MD 2.5 mg at 05/10/18 1241 Review of patient's allergies indicates: Allergen Reactions Other Allergy (See Comments) Anaphylaxis Bee stings- swelling PHYSICAL EXAMINATION: Vital Signs: BP 110/54 | Pulse 68 | Resp 16 | Wt 93.8 kg (206 lb 14.4 oz) | SpO2 95% | BMI 30.54 kg/m | BSA 2.14 m EXAM: Constitutional: appearance normally developed, well nourished. Head and Face: normocephalic and atraumatic Cardiovascular: heart sounds are normal. Rhythm is sinus NEUROLOGIC EXAM Higher integrative is intact to orientation, language and attention to the examnier; Fund 2/3; Memory 0/3; [place]. Cranial Nerves: CN 2 - no visual defect on confrontation and pupils round, equal, reactive to light CN 3, 4, 6 - extra-ocular movements intact and no nystagmus CN 7 - no facial asymmetry CN 9, 10 - palate symmetric CN 12 - tongue midline Motor: Normal, without pronator drift, with EHLs 4/5 Coordination: Normal finger to nose and rapid alternating movement of lower extremities Asterixis of fingers; PVE nl; Tone nl; Gait using stick-really off balance IMPRESSION / PLAN: This patient continues to have cognitive difficulties. This is related to liver failure as best I can tell. He continues to have neuropathic pain. I will be placing him on medication, if permissible with theliver crowd. He and his are going to get me the name of his liver specialist and ensure that his phone numbers are up-to-date in the [employer] system. documented in this encounter Nursing Notes * Luisa Messina CMA - 01/17/2024 2:53 PM EDT Chief Complaint Patient presents with Return Neuro Patient reports left side shoulder nerve pain and states worsening tingling in leg and feels like leg is on fire. Also complains of upper right quadrant abdominal pain. 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 Would like to get an accessible space parking permit and electric scooter. documented in this encounter Plan of Treatment Upcoming Encounters Date Type Department Care Team (Late st Contact Info) Description 02/03/2024 11:00 AM [place] [address] Scheduled Procedures Name Priority Associated Diagnoses Date/Ti [...] of this encounter Visit Diagnoses Diagnosis Memory loss- Primary Pain in both lower extremities documented in this encounter Care Teams Senior Restaurant Manager Relationship Specialty Start Date End Date Rao Ochoa MD [address] [place] [address] PCP - General Internal Medicine 10/11/23 documented as of this encounter"
--- OUTSIDE RECORDS SUMMARY | 2024-04-20 03:17 | External Medical Summary | Summary of Care ---
Author Name Unknown Organization [facility] Address [address] [facility] [place] [address] Phone [phone] Care Team Providers Care Director Of Training Name Role Phone Rao Ochoa MD Primary Care Provider [phone] Reason for Visit * Reason Onset Date Comments Test Results 01/05/2024 Encounter Details Date Type Department Care Team (Late st Contact Info) Description 01/05/2024 Telephone Gastroenterology, [facility] [address] [place] [address] Ki Huang MD [address] [place] [address] Test Results Allergies Active Allergy Reactions Criticality [...] heart disease 08/29/2 002 Overview: father had DC's in 40's [...] Undiagnosed cardiac murmurs 11/29/2001 03/02/2017 Overview: Not [place] on 11/29/01 documented as of this encounter (statuses as of 01/16/2024) Immunizations Name Administration Dates Next Due HEP A - Hepatitis A (Adult > 18 yrs) 06/06/2020 Pneumococcal Conjugate Vacci ne, 20-valent ([id number]) 06/24/2022 Seasonal Influenza Virus Vac cine, Unspecified [...] within 2-3 weeks? Ki Huang MD P [facility] Gastro Nurse Pool/Class Pt's copper levels are mildly low. He should dc zinc supplements, which can interfere with copper absorption. documented in this encounter Plan of Treatment Upcoming Encounters Date Type Department Care Team (Late st Contact Info) Description 01/17/2024 3:40 PM EDT Office Visit Neurology [facility] [address] [facility] [place] [address] Britni De La Cruz MD [address] [facility] [place] [address] 02/03/2024 11:00 AM EDT Imaging Radiology [address] [place] [address] Scheduled Procedures Name Priority Associated Diagnoses Date/Ti [...] filedocumented as of this encounter Care Teams Director Of Training Relationship Specialty Start Date End Date Rao Ochoa MD [address] [place] [address] PCP - General Internal Medicine 10/11/23 documented as of this encounter
--- OUTSIDE RECORDS SUMMARY | 2024-04-20 03:17 | External Medical Summary | Summary of Care ---
Author Name Unknown Organization [facility] Address [address] [facility] [address] Phone [phone] Care Team Providers Care Riveter Name Role Phone Georgia Ochoa MD Primary Care Provider [phone] Reason for Visit * Reason Onset Date Comments Medication Refill 01/22/2024 Encounter Details Date Type Department Care Team (Late st Contact Info) Description 01/22/2024 Refill [facility] [address] [place] [address] Georgia Ochoa MD [address] [place] [address] Allergies Active Allergy Reactions Criticality Noted Date Comments Other Allergy (See Comments) Anaphylaxis High 06/21/2018 Bee stings- swelling documented as of this encounter (statuses as of 01/23/2024) Medications Medication Sig Dispensed Refills Start Date [...] to liver condition 15 Tablet 01/16/2024 Active rifAXIMin 550 MG Oral Tablet (Xifaxan) take 1 tablet by mouth IN THE MORNING then take 1 tablet by mouth BEFORE BEDTIME 60 Tablet 5 01/23/2024 Active rifAXIMin 550 MG Oral Tablet (Xifaxan) take 1 tablet by mouth IN THE MORNING then take 1 tablet by mouth BEFORE BEDTIME 60 Tablet 12/18/2023 4 Discontinu ed(Refill) Hospital, Clinic, or Other Facility Administered Medication Ordered Dose Route Frequency Start Date End Date Status albuterol sulfate (PROVENTIL) (2.5 MG/3ML) 0.083% inhalation solution 2.5 mgIndications:SOB (shortness of breath) 2.5 mg NEBULIZER Q4H PRN 05/10/2018 Act guzman documented as of this encounter (statuses as of 01/23/2024) Active Problems Problem Noted Date Diagnosed Date [...] ischemic heart disease 002 Overview: father had FL's in 40's Gastroesophageal reflux disease with esophagitis documented as of this encounter (statuses as of 01/23/2024) Resolved Problems Problem Noted Date Diagnosed Date [...] Undiagnosed cardiac murmurs 11/29/2001 03/02/2017 Overview: Not [place] on 11/29/01 documented as of this encounter (statuses as of 01/23/2024) Immunizations Name Administration Dates Next Due HEP A - Hepatitis A (Adult > 18 yrs) 06/06/2020 Pneumococcal Conjugate Vacci ne, 20-valent ([id number]) 06/24/2022 Seasonal Influenza Virus Vac cine, Unspecified [...] Telephone Encounter - Georgia Ochoa MD - 01/23/2024 8:30 AM EDTSigned Prescriptions: Disp Refills rifAXIMin 550 MG Oral Tablet (Xifaxan) 60 Tab*5 Sig: take 1 tablet by mouth IN THE MORNING then take 1 tablet by mouth BEFORE BEDTIME Authorizing Provider: GEORGIA OCHOA * Telephone Encounter - Thao Wheeler CPhT - 01/22/2024 3:12 PM EDT Did you pend patient's preferred pharmacy and medication before forwarding?yes Pharmacy: [id number] [address] [facility] Pending Prescriptions: Disp Refills rifAXIMin 550 MG Oral Tablet (Xifaxan) 60 Tab*0 Sig: take 1 tablet by mouth IN THE MORNING then take 1 tablet by mouth BEFORE BEDTIME Last Visit: 01/16/2024 (in office), Visit date not found (telemedicine) Next Visit: Visit date not found If no future appointments scheduled, and last appointment is greater than a year ago, please schedule patient for a follow-up appointment Last date the medication was ordered: 12/18/2023 Is this request for a controlled substance?No [...] in Results Review. Patient Phone Numbers mobile [phone] Labs: Lab Results Component Value Date/Time CREAT [...] Description 02/03/2024 11:00 AM EDT Imaging Radiology [address] [place] [address] 05/29/2024 3:40 PM EST Office Visit Neurology [facility] [address] [facility] [place] [address] Britni De La Cruz MD [address] [place] [address] Scheduled Procedures Name Priority Associated Diagnoses Date/Ti [...] filedocumented as of this encounter Care Teams Riveter Relationship Specialty Start Date End Date Georgia Ochoa MD [address] [place] [address] PCP - General Internal Medicine 10/11/23 documented as of this encounter
--- OUTSIDE RECORDS SUMMARY | 2024-04-20 03:17 | External Medical Summary | Summary of Care ---
Author Name Unknown Organization [facility] Address [address] [facility] [place] [address] Phone [phone] Care Team Providers Care Product Builder Name Role Phone Rao Ochoa MD Primary Care Provider Reason for Visit * Reason Comments Follow Up Discuss motorized sc ooter Encounter Details Date Type Department Care Team (Latest Contact Info) Description 01/16/2024 3:20 PM EDT Office Visit [facility] [address] [place] [address] Rao Ochoa MD [address] [place] [address] S/P hip replacement, left*; Hepatic encephalopathy (HCC); Alcoholic cirrhosis of liver without ascites (HCC); Avascular necrosis of bone of left hip (HCC); Other intervertebral disc displacement, lumbosacral region; Gait difficulty Allergies Active Allergy Reactions Criticality Noted Date [...] Undiagnosed cardiac murmurs 11/29/2001 03/02/2017 Overview: Not [place] on 11/29/01 documented as of this encounter (statuses as of 01/16/2024) Immunizations Name Administration Dates Next Due HEP A - Hepatitis A (Adult > 18 yrs) 06/06/2020 Pneumococcal Conjugate Vacci ne, 20-valent ([id number]) 06/24/2022 Seasonal Influenza Virus Vac cine, Unspecified [...] Reading Time Taken Comments Blood Pressure 112/60 01/16/2024 3:14 PM EDT Pulse 70 01/16/2024 3:14 PM EDT Temperature 36.9 C (98.4 F) 01/16/2024 3:14 PM ED T Respiratory Rate 16 01/16/2024 3:14 PM EDT Oxygen Saturation - - Inhaled Oxygen Concentration - - Weight 93.9 kg (207 lb) 01/16/2024 3:14 PM EDT Height 175.3 cm (5' 9.02") 01/16/2024 3:14 PM ED T Body Mass Index 30.55 01/16/2024 3:14 PM EDT documented in this encounter Functional Status Functional Status Response Date of Assess ment Does this person have seriou s difficulty walking or climbing stairs? Yes 08/23/2021 documented as of this encounter Progress Notes * Rao Ochoa MD - 01/16/2024 3:28 PM EDT Subjective Mauro Liu is a 58 year old male. Chief Complaint Patient presents with Follow Up Discuss motorized scooter HPI: Here for evaluation for motorized scooter prescription Known avascular necrosis of left hip and s/p lt hip replacement early this year And also has known chronic lumbar DDD with back pain, sciatica issue Has been using a cane, or a walker But it has been very difficult for him to walk more than 1 minute at this time Has limitation on pain med use due to known liver cirrhosis - can use only tramadol 50 mg daily prn, not more than #15 per month High ammonia level due to liver cirrhosis, f/u with GI, is scheduled for MRI liver early feb PMH: Patient Active Problem List Diagnosis Family [...] by mouth every 6 hours as needed. EpiPen 2-Dave 0.3 MG/0.3ML Injection Solution Auto-injector For a severe reaction: Place orange end against the outer thigh, press firmly, hold in place for 10 seconds and go to the Emergency room. 2 Each 1 rifAXIMin 550 MG Oral Tablet (Xifaxan) take 1 tablet by mouth IN THE MORNING then take 1 tablet by mouth BEFORE BEDTIME 60 Tablet 0 Zinc Acetate 50 MG Oral Capsule Take by mouth 2 times a day. Lactulose 10 GM/15ML Oral Solution (Constulose) Take [...] morning. (Patient not taking: Reported on 01/16/2024) Current Facility-Administered Medications Medication Dose Route Frequency [...] NON-INVASIVE IMAGING (MRI OR CT) performed by [facility] at [facility] COLONOSCOPY, DIAGNOSTIC (RECTUM) 04/10/2015 adenomatous polyps, repeat 3 yrs/COLONOSCOPY FLEXIBLE PROXIMAL DIAGNOSTIC performed by Lopez Shi MD at ENDOSCOPY [facility] COLONOSCOPY, DIAGNOSTIC (RECTUM) 05/18/2018 adenomatous polyps, diverticulosis, repeat 1yr/COLONOSCOPY FLEXIBLE PROXIMAL DIAGNOSTIC performed by Lopez Shi MD at ENDOSCOPY [facility] COLONOSCOPY, DIAGNOSTIC (RECTUM) 05/30/2019 adenomatous polyps, diverticulosis, repeat 3 yrs / COLONOSCOPY FLEXIBLE PROXIMAL DIAGNOSTIC performed by Lopez Shi MD at [facility] COLONOSCOPY, DIAGNOSTIC (RECTUM) 06/30/2021 1-4mm in rectum, otherwise normal / biopsies normal / 5 year recall / COLONOSCOPY FLEXIBLE PROXIMALDIAGNOSTIC performed by Jena Camargo MD at [facility] EGD, FLEXIBLE, DIAGNOSTIC 05/05/2014 normal bx/ESOPHAGOGASTRODUODENOSCOPY (EGD), FLEXIBLE, TRANSORAL, DIAGNOSTIC performed by Ki Huang MD at [facility] EGD, FLEXIBLE, DIAGNOSTIC 04/11/2016 Schatzki ring, hiatal hernia, gastritis/ESOPHAGOGASTRODUODENOSCOPY (EGD), FLEXIBLE, TRANSORAL, DIAGNOSTIC performed by Ki Huang MD at [facility] EGD, FLEXIBLE, DIAGNOSTIC 01/24/2018 w/ [facility] EGD, FLEXIBLE, DIAGNOSTIC 07/17/2018 normal biopsies/ESOPHAGOGASTRODUODENOSCOPY (EGD), FLEXIBLE, TRANSORAL, DIAGNOSTIC performed by Lopez Shi MD at [facility] EGD, FLEXIBLE, DIAGNOSTIC 07/07/2020 sm hiatal hernia / ESOPHAGOGASTRODUODENOSCOPY (EGD), FLEXIBLE, TRANSORAL, DIAGNOSTIC performed by Lopez Shi MD at [facility] EGD, FLEXIBLE, DIAGNOSTIC 09/03/2021 esophageal varices, repeat 1 yr / ESOPHAGOGASTRODUODENOSCOPY (EGD), FLEXIBLE, TRANSORAL, DIAGNOSTICperformed by Alen Garcia DO at [facility] EGD, FLEXIBLE, DIAGNOSTIC 07/06/2022 Portal hypertensive gastropathy, eso varices, mild-mod inflammation on bx / ESOPHAGOGASTRODUODENOSCOPY (EGD), FLEXIBLE, TRANSORAL, DIAGNOSTIC performed by Lopez Shi MD at [facility] EGD, FLEXIBLE, DIAGNOSTIC N/A 10/18/2023 grade I esophageal varices/portal hypertensive gastropathy/recall 2 years/ESOPHAGOGASTRODUODENOSCOPY (EGD), FLEXIBLE, TRANSORAL, DIAGNOSTIC performed by Jena Camargo MD at [facility] EGD, W/ENDOSCOPIC US 06/26/2018 retained food, repeat study/ESOPHAGOGASTRODUODENOSCOPY (EGD), FLEXIBLE, TRANSORAL, ENDOSCOPIC ULTRASOUND performed by Lopez Shi MD at ENDOSCOPY [facility] EGD, W/ENDOSCOPIC US 07/17/2018 sludge gallbladder/ESOPHAGOGASTRODUODENOSCOPY (EGD), FLEXIBLE, TRANSORAL, ENDOSCOPIC ULTRASOUND performed by Lopez Shi MD at ENDOSCOPY [facility] IR BIOPSY 02/14/2022 LAPAROSCOPY; CHOLECYSTECTOMY NM ARTHRP ACETBLR/PROX FEM PROSTC AGRFT/ALGRFT Left 04/08/2023 [...] Mother Parkisons Parkinsonism Mother Heart Disorder Father [place] in 40's Stroke Father Heart failure Father Dementia Father No Known Problems Brother Kelvin Family Status Relation Status Mo Fa Bro Alive Social History Socioeconomic History Marital status: Single Spouse name: Carmen Number of children: Not on file Years of education: Not on file Highest education level: 12th grade Occupational History 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 Negative for appetite change, chills, diaphoresis, fever and unexpected weight change. Respiratory: Negative for shortness of breath. Cardiovascular: Negative for chest pain, palpitations and leg swelling. Gastrointestinal: Negative for abdominal distention and abdominal pain. Musculoskeletal: Positive for arthralgias, back pain, gait problem and myalgias. Allergic/Immunologic: Positive for immunocompromised state. Neurological: Positive for dizziness, tremors, weakness (legs , general) and light-headedness. Psychiatric/Behavioral: Positive for confusion, dysphoric mood and sleep disturbance. Negative for agitation and behavioral problems. The patient is nervous/anxious. Objective BP 112/60 | Pulse 70 | Temp 36.9 C (98.4 F) | Resp 16 | Ht 1.753 m (5' 9.02") | Wt 93.9 kg (207lb) | BMI 30.55 kg/m | BSA 2.14 m Physical Exam Constitutional: General: He is not in acute distress. Appearance: Normal appearance. He is not ill-appearing, toxic-appearing or diaphoretic. HENT: Head: Normocephalic and atraumatic. Nose: Nose normal. Eyes: Extraocular Movements: Extraocular movements intact. Cardiovascular: Rate and Rhythm: Normal rate. Pulmonary: Effort: Pulmonary effort is normal. No respiratory distress. Musculoskeletal: General: Tenderness (lt hip, lower back , BOth legs) present. Right lower leg: No edema. Left lower leg: No edema. Neurological: General: No focal deficit present. Mental Status: He is alert and oriented to person, place, and time. Motor: Weakness (lt leg) present. Gait: Gait abnormal. Psychiatric: Behavior: Behavior normal. ASSESSMENT/PLAN: S/P hip replacement, left (Primary) - DURABLE MEDICAL EQUIPMENT Hepatic encephalopathy (HCC) Alcoholic cirrhosis of liver without ascites (HCC) Avascular necrosis of bone of left hip (HCC) - DURABLE MEDICAL EQUIPMENT Other intervertebral disc displacement, lumbosacral region - DURABLE MEDICAL EQUIPMENT Gait difficulty - DURABLE MEDICAL EQUIPMENT Motorized scooter order Rao Ochoa MD documented in this encounter Nursing Notes * Micaela Goddard LPN - 01/16/2024 3:14 PM EDT The patient has been properly identified by confirmation of name and date of . Chief Complaint Patient presents with Follow Up Discuss motorized scooter documented in this encounter Plan of Treatment Upcoming Encounters Date Type Department Care Team (Late st Contact Info) Description 01/17/2024 3:40 PM EDT Office Visit Neurology [facility] [address] [place] [address] Britni De La Cruz MD [address] [facility] [place] [address] 02/03/2024 11:00 AM EDT Imaging Radiology [address] [place] [id number] Scheduled Procedures Name Priority Associated Diagnoses Date/Ti [...] this encounter Visit Diagnoses Diagnosis S/P hip replacement, left- Primary Hepatic encephalopathy (HCC) Hepatic encephalopathy Alcoholic cirrhosis of liver without ascites (HCC) Alcoholic cirrhosis of liver Avascular necrosis of bone of left hip (HCC) Other intervertebral disc displacement, lumbosacral region Gait difficulty Abnormality of gait documented in this encounter Care Teams Product Builder Relationship Specialty Start Date End Date Rao Ochoa MD [address] [place] [address] PCP - General Internal Medicine 10/11/23 documented as of this encounter
--- OUTSIDE RECORDS SUMMARY | 2024-04-20 03:17 | External Medical Summary | Summary of Care ---
Author Name Unknown Organization [facility] Address [address] [facility] [address] Phone [phone] Care Team Providers Care Templer Head Name Role Phone Georgia Ochoa MD Primary Care Provider [phone] Reason for Visit * Reason Onset Date Comments Medication Refill 01/25/2024 Encounter Details Date Type Department Care Team (Late st Contact Info) Description 01/25/2024 Refill [facility] [address] [place] [address] Georgia Ochoa MD [address] [place] [address] Allergies Active Allergy Reactions Criticality Noted Date Comments Other Allergy (See Comments) Anaphylaxis High 06/21/2018 Bee stings- swelling documented as of this encounter (statuses as of 01/26/2024) Medications Medication Sig Dispensed Refills Start Date [...] the morning. 90 Capsule 3 06/25/2023 Active traZODone HCl 50 MG Oral Tablet [...] BEFORE BEDTIME 60 Tablet 5 01/23/2024 Active Gabapentin 300 MG Oral Capsule (Neurontin) Take 1 Capsule by mouth at bedtime. 30 Capsule 5 01/26/2024 Active Gabapentin 300 MG Oral Capsule (Neurontin) Take 1 Capsule by mouth at bedtime. 30 Capsule 5 07/06/2023 4 Discontinu ed(Refill) Hospital, Clinic, or Other Facility Administered Medication Ordered Dose Route Frequency Start Date End Date Status albuterol sulfate (PROVENTIL) (2.5 MG/3ML) 0.083% inhalation solution 2.5 mgIndications:SOB (shortness of breath) 2.5 mg NEBULIZER Q4H PRN 05/10/2018 Act guzman documented as of this encounter (statuses as of 01/26/2024) Active Problems Problem Noted Date Diagnosed Date [...] as of this encounter (statuses as of 01/26/2024) Resolved Problems Problem Noted Date Diagnosed Date [...] Undiagnosed cardiac murmurs 11/29/2001 03/02/2017 Overview: Not [place] on 11/29/01 documented as of this encounter (statuses as of 01/26/2024) Immunizations Name Administration Dates Next Due HEP A - Hepatitis A (Adult > 18 yrs) 06/06/2020 Pneumococcal Conjugate Vacci ne, 20-valent ([id number]) 06/24/2022 Seasonal Influenza Virus Vac cine, Unspecified [...] Telephone Encounter - Georgia Ochoa MD - 01/26/2024 9:30 AM EDTSigned Prescriptions: Disp Refills Gabapentin 300 MG Oral Capsule (Neurontin) 30 Cap*5 Sig: Take 1 Capsule by mouth at bedtime. Authorizing Provider: GEORGIA OCHOA * Telephone Encounter - Tata Lopez LPN - 01/26/2024 8:25 AM EDTPending Prescriptions: Disp Refills Gabapentin 300 MG Oral Capsule (Neurontin) 30 Cap*5 Sig: Take 1 Capsule by mouth at bedtime. * Telephone Encounter - Daljit Atkinson - 01/26/2024 8:06 AM EDTPending Prescriptions: Disp Refills Gabapentin 300 MG Oral Capsule (Neurontin) 30 Cap*5 Sig: Take 1Capsule by mouth at bedtime. documented in this encounter Plan of Treatment Upcoming Encounters Date Type Department Care Team (Late st Contact Info) Description 02/03/2024 11:00 AM EDT Imaging Radiology [address] [facility] [place] [address] 05/29/2024 3:40 PM EST Office Visit Neurology [facility] [address] [facility] [place] [address] Britni De La Cruz MD [address] [facility] [place] [address] Scheduled Procedures Name Priority Associated Diagnoses Date/Ti [...] filedocumented as of this encounter Care Teams Templer Head Relationship Specialty Start Date End Date Georgia Ochoa MD [address] [place] [address] PCP - General Internal Medicine 10/11/23 documented as of this encounter
--- OUTSIDE RECORDS SUMMARY | 2024-04-20 03:17 | External Medical Summary | Summary of Care ---
Author Name Unknown Organization [facility] Address [address] [facility] [address] Phone [phone] Care Team Providers Care Pigment Processor Name Role Phone Rao Ochoa MD Primary Care Provider [phone] Reason for Referral * Precert (Within 10 days (routine)) - Pending Review Specialty Diagnoses / Procedures Referred By Pj t Referred To Contact Radiology Diagnoses Cirrhosis of liver (HCC) Procedures MRI LIVER W WO CONTRAST Ki Huang MD [address] [place] [address] Referral ID Status Reason Start Date Expiration Date V isits Requested Visits Authorized [id number] Pending Review 02/03/2024 999 999 Reason for Visit * Reason Onset Date Comments Office Procedure Medication Administration 01/03/2024 Flu an d/or Pneumo Inj Encounter Details Date Type Department Care Team (Late st Contact Info) Description 01/03/2024 11:00 AM EDT Nurse Only Gastroenterology, [facility] [place], [facility] [place] [address] [address] [facility] [address] [place] [address] Office Procedure; Medication Administratio... Allergies Active Allergy Reactions Criticality Noted Date Comments Other Allergy (See Comments) Anaphylaxis High 06/21/2018 Bee stings- swelling documented as of this encounter (statuses as of 01/25/2024) Medications Medication Sig Dispensed Refills Start Date [...] Emergency room. 2 Each 1 08/17/2023 Active Zinc Acetate 50 MG Oral Capsule [...] mouth daily 90 Tablet 1 01/02/2024 Active prednisoLONE Acetate 1 % Ophthalmic Suspension (Pred Forte) Instill 1 Drop into the right eye in the morning and 1 Drop at noon and 1 Drop in the evening and 1 Drop before bedtime. 07/10/2023 4 Discontinu ed(Medicat ion List Clean Up) Ofloxacin 0.3 % Ophthalmic Solution (Ocuflox) Instill 1 Drop into the right eye in the morning and 1 Drop at noon and 1 Drop in the evening and 1 Drop before bedtime. 07/10/2023 4 Discontinu ed(Medicat ion List Clean Up) traMADol HCl 50 MG Oral Tablet (Ultram)Indications :Avascular necrosis of bone of left hip (HCC),Peripheral polyneuropathy Take 1 Tablet by mouth daily as needed for Pain, Severe. Not more than #15 per month due to liver condition 15 Tablet 11/30/2023 4 Discontinu ed(Refill) rifAXIMin 550 MG Oral Tablet (Xifaxan) take [...] as of this encounter (statuses as of 01/25/2024) Active Problems Problem Noted Date Diagnosed Date [...] as of this encounter (statuses as of 01/25/2024) Resolved Problems Problem Noted Date Diagnosed Date [...] Undiagnosed cardiac murmurs 11/29/2001 03/02/2017 Overview: Not [place] on 11/29/01 documented as of this encounter (statuses as of 01/25/2024) Immunizations Name Administration Dates Next Due HEP A - Hepatitis A (Adult > 18 yrs) 06/06/2020 Pneumococcal Conjugate Vacci ne, 20-valent ([id number]) 06/24/2022 Seasonal Influenza Virus Vac cine, Unspecified [...] No 04/17/2023 Does the household have a [facility] source of income? (Household - for ages [...] Sign Reading Time Taken Comments Blood Pressure 116/56 01/03/2024 10:46 AM EDT Pulse 68 01/03/2024 10:46 AM EDT Temperature 36.5 C (97.7 F) 01/03/2024 10:46 AM E DT Respiratory Rate 18 01/03/2024 10:46 AM EDT Oxygen Saturation - - Inhaled Oxygen Concentration - - Weight 91.3 kg (201 lb 4.8 oz) 01/03/2024 10:46 AM EDT Height - - Body Mass Index 29.71 11/30/2023 3:11 PM EDT documented in this encounter Functional Status Functional Status Response Date of Assess ment Does this person have seriou s difficulty walking or climbing stairs? Yes 08/23/2021 documented as of this encounter Patient Instructions * Patient Instructions* Leeanna Tijerina RN - 01/03/2024 10:49 AM EDT ~~PATIENT INSTRUCTIONS FOR FLU SHOT~~ [...] documented in this encounter Progress Notes * Leeanna Tijerina RN - 01/03/2024 10:49 AM EDT [facility] Department of Gastroenterology & Hepatology Fibroscan/Vibration Controlled Transient Elastography (VCTE) Procedure Report Date: 01/03/2024 Patient: Mauro Liu Referring Provider: Ki Huang MD Interpreting Provider: Dr Huang Indication: cirrhosis NPO 3-Hours: Yes Probe: M Procedure: After providing oral explanation of the procedure to the patient, patient was placed in a supine position with right arm extended over the head to allow optimal exposure of the right lateral abdomen. Ultrasound location was identified by locating the terminus of the xiphoid process and finding intercostal spacing located midline and lateral to this point. 50 Hz Shear Wave pulses were applied and the resulting Shear Wave and Propagation Speed detected with 3.5 MHz ultrasonic signal, using the FibroScan probe. Skin to liver capsule distance and liver parenchyma were accessed during the entire examination using the FibroScan probe. Eleven Shear wave impulses were produced; individual measurements of each Shear Wave were calculated. Patient tolerated procedure well. Findings: Results for orders placed or performed in visit on 01/03/24 LIVER ELASTOGRAPHY W/O IMAGING Result Value Ref Range Median Shear Wave Speed 3.35 meters/second Median Liver Stiffness 33.6 kilopascal (kPa) IQR/med 26 Range < 30% Fibrosis Staging CAP SCORE 191 dB/m The Interquartile Range to Median ration (IQR/med) for all measurements was 26% , indicating a goodquality study was performed. (Acceptable range of IQR/med less than 30%) Interpretation: Table 1. Exam suggestive of clinically significant portal HTN, although active alcohol use may confound these results. Recommendations: Follow up in GI clinic for consideration of non selective beta tonia. Signature: Ki Huang MD [facility] Gastroenterology [address] [place] [id number] References: Osmel Hamilton, Salomón Jarquin. (2014) Utilization of FibroScan in Clinical Practice. Curr Gastroenterol Rep. DOI 10.1007/j33199-485-2858-5 Table 1 Recommended values for different stage of fibrosis Disease F0-F1 (kPA) F2 (kPA) F3 (kPA) F4 (kPA) Hepatitis B < 6.0 > 6.0 > 9.0 >12.0 Hepatitis C < 7.0 > 7.0 > 9.5 > 12.0 HCV-HIV coinfection < 7.0 < 10.0 > 11.0 >14.0 Cholestatic liver disease < 7.0 > 7.5 > 10.0 > 17.0 NAFLD/TINSLEY < 7.0 > 7.5 < 10.0 > 14.0 Thank you for referring your patient for Fibroscan. Please do not hesitate to contact us for further information. documented in this encounter Nursing Notes * Leeanna Tijerina RN - 01/03/2024 10:48 AM EDT Chief Complaint Patient presents with Office Procedure Verified NPO PRE - ADMINISTRATION DOCUMENTATION Are you experiencing any cold symptoms or fever? No Have you had Guillain-[place] Syndrome (an illness that causes paralysis) within the last 6 weeks? No Have you had the flu shot in the past? YES Have you ever had a reaction to the flu shot? No Leeanna Tijerina RN, 01/03/2024 10:49 AM Immunization Administration Documentation Time Out Procedure [...] Description 02/03/2024 11:00 AM EDT Imaging Radiology [address] 132 [facility] [place] [address] 05/29/2024 3:40 PM EST Office Visit Neurology [facility] [address] [facility] [place] [address] Britni De La Cruz MD [address] [facility] [place] [address] Pending Results Name Type Priority Associated Diagnoses Date /Time LIVER ELASTOGRAPHY W/O IMAGING Procedures Routine Cirrhosis of liver (HCC) 01/03/2024 11:05 AM EDT Scheduled Orders Name Type Priority Associated Diagnoses Orde r Schedule MRI LIVER W WO CONTRAST Medical Imaging Routine Cirrhosis of liver (HCC) Expected: 02/03/2024, Expires: 02/02/2025 Scheduled Procedures Name Priority Associated Diagnoses Date/Ti [...] Procedure Name Priority Date/Time Associated Diagnosis Comments LIVER ELASTOGRAPHY W/O IMAGING Routine 01/03/2024 11:05 AM EDT Cirrhosis of liver (HCC) documented in this encounter Visit Diagnoses Diagnosis Cirrhosis of liver (HCC)- Primary Cirrhosis of liver without mention of alcohol Need for prophylactic vaccination and inoculation against influenza documented in this encounter Care Teams Pigment Processor Relationship Specialty Start Date End Date Rao Ochoa MD [address] [place] [address] PCP - General Internal Medicine 10/11/23 documented as of this encounter
--- OUTSIDE RECORDS SUMMARY | 2024-04-20 03:18 | External Medical Summary | Summary of Care ---
Author Name Unknown Organization [facility] [address] [place] [address] Phone [phone] Care Team Providers Care Concrete Block Layer Name Role Phone Rao Ochoa MD Primary Care Provider [phone] Encounter Details Date Type Department Care Team (Latest Contact Info) Description 01/03/2024 11:40 AM EDT - 01/03/2024 11:59 PM EDT Hospital Encounter Radiology, [address] [address] Arrived Discharge Disposition: Home - Self Care Allergies Active Allergy Reactions Criticality Noted Date Comments Other Allergy (See Comments) Anaphylaxis High 06/21/2018 Bee stings- swelling documented as of this encounter (statuses as of 01/04/2024) Medications Medication Sig Dispensed Refills Start Date [...] due to liver condition 15 Tablet 11/30/2023 Active rifAXIMin 550 MG Oral Tablet (Xifaxan) [...] mouth daily 90 Tablet 1 01/02/2024 Active Hospital, Clinic, or Other Facility Administered Medication Ordered Dose Route Frequency Start Date End Date Status albuterol sulfate (PROVENTIL) (2.5 MG/3ML) 0.083% inhalation solution 2.5 mgIndications:SOB (shortness of breath) 2.5 mg NEBULIZER Q4H PRN 05/10/2018 Act guzman documented as of this encounter (statuses as of 01/04/2024) Active Problems Problem Noted Date Diagnosed Date [...] as of this encounter (statuses as of 01/04/2024) Resolved Problems Problem Noted Date Diagnosed Date Resolved Date History of alcohol abuse 05/22/2023 Alcohol dependence, uncomplicated 01/17/2023 05/22/2023 Avascular necrosis of bone of hip 05/10/2022 05/22/2023 Chronic alcohol abuse 06/17/20212023 Facial swelling 06/09/2017 08/07/2019 Urticaria 06/09/2017 08/07/2019 Intestinal obstruction 05/09/201203/02 CLASSICAL MIGRAINE WITHOU ME NTION OF INTRACTABLE MIGRAINE 11/29/2001 08/07/2019 Undiagnosed cardiac murmurs 11/29/2001 03/02/2017 Overview: Not [place] on 11/29/01 documented as of this encounter (statuses as of 01/04/2024) Immunizations Name Administration Dates Next Due HEP A - Hepatitis A (Adult > 18 yrs) 06/06/2020 Pneumococcal Conjugate Vacci ne, 20-valent ([id number]) 06/24/2022 Seasonal Influenza Virus Vac cine, Unspecified [...] Miscellaneous Notes * Result Encounter Note - Ki Huang MD - 01/03/2024 12:30 PM EDT Nurses - can you speak to pt, and ask him to schedule liver MRI to follow up ultrasound? Please call his significant other, as his number is not working. I left a voicemail on his significant other'svoice mail. documented in this encounter Plan of Treatment Upcoming Encounters Date Type Department Care Team (Late st Contact Info) Description 01/17/2024 3:40 PM EDT Office Visit Neurology [facility] [place] [address] [facility] [place] [address] Britni De La Cruz MD [address] [facility] [place] [address] Scheduled Procedures Name Priority Associated Diagnoses Date/Ti me COLONOSCOPY FLEXIBLE PROXIMAL DIAGNOSTIC Recall History of colon polyps Health Maintenance Due Date Last Done Comments Cologuard 2009 Fecal Occult Blood Test 2009 Sigmoidoscopy 2009 COVID-19 Vaccine ( season) 2023 Depression Monitoring 04/17/2024 04/17/2023 Colonoscopy 06/30/2024 06/30/2021, 03/3 , 05/30/2019, Additional [...] Procedure Name Priority Date/Time Associated Diagnosis Comments US ABDOMEN LIMITED Routine 01/03/2024 12 :35 PM EDT Alcoholic cirrhosis of liver without ascites (HCC) documented in this encounter Results * US ABDOMEN LIMITED (01/03/2024 12:35 PM EDT) Anatomical Region Laterality Modality Abdomen, Body Ultrasound 01/03/2024 1:02 PM EDT Impressions 01/03/2024 12:59 PM EDT IMPRESSION: Status post cholecystectomy. Hepatic findings compatible with patient's clinical diagnosis of cirrhosis. Two focal lesions as discussed nonspecific but perhaps complicated cysts. MRI demonstrated pancreatic lesion not ultrasonographically delineated. Narrative 01/03/2024 12:59 PM EDT EXAM: US ABDOMEN LIMITED HISTORY: hcc screen TECHNIQUE: Time scanning is performed right upper quadrant COMPARISON: MRI abdomen dated 08/31/2023; ultrasound abdomen dated 06/06/2023 and prior studies FINDINGS: Gallbladder: Not identified compatible with patient's history prior cholecystectomy. No intrahepatic biliary dilatation. There is no extrahepatic biliary dilatation with common duct measuring approximally 6 mm. No gross choledocholithiasis. Liver: Size length: Right lobe approximate 14.1 cm Visualized parenchyma somewhat heterogeneous. There is also irregularity and nodularity of visualized surface contour. These findings are nonspecific but compatible patient's clinical history of cirrhosis. Two focal lesions are identified. Each is in the right lobe. One is ovoid well-defined predominantly sonolucent with thin internal septation measuring approximately 1.1 cm x 1.2 cm x 1.3 cm.. A 2nd is ovoid well-defined and perhaps also predominantly sonolucent allowing for technical artifact. This measures approximately 1.5 cm x 1.3 cm x 1.3 cm. Continued MRI follow-up would be helpful in this patient. No other discrete focal lesion. 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 Ascites: None demonstrated right upper quadrant Pancreas: Unfortunately, pancreatic bed rather obscured by overlying bowel. Limited visualized portions of pancreas demonstrate no discrete focal lesion or pancreatic ductal dilatation. MRI dated 08/31/2023 did demonstrate focal pancreatic body cyst. Right Kidney: Size length: 9.7 cm. No hydronephrosis or focal lesion. Cortex maintained in regard to thickness/echotexture. No demonstrable intrarenal calculus or perinephric abnormality. Right pleural effusion: None demonstrated. Procedure Note Dann Pruitt MD - 01/03/2024 EXAM: US ABDOMEN LIMITED HISTORY: hcc screen TECHNIQUE: Time scanning is performed right upper quadrant COMPARISON: MRI abdomen dated 08/31/2023; ultrasound abdomen dated 06/06/2023 andprior studies FINDINGS: Gallbladder: Not identified compatible with patient's history priorcholecystectomy. No intrahepatic biliary dilatation. There is no extrahepatic biliarydilatation with common duct measuring approximally 6 mm. No grosscholedocholithiasis. Liver: Size length: Right lobe approximate 14.1 cm Visualized parenchyma somewhat heterogeneous. There is also irregularityand nodularity of visualized surface contour. These findings arenonspecific but compatible patient's clinical history of cirrhosis. Two focal lesions are identified. Each is in the right lobe. One isovoid well- defined predominantly sonolucent with thin internal septationmeasuring approximately 1.1 cm x 1.2 cm x 1.3 cm.. A 2nd is ovoidwell-defined and perhaps also predominantly sonolucent allowing fortechnical artifact. This measures approximately 1.5 cm x 1.3 cm x 1.3 cm.Continued MRI follow-up would be helpful in this patient. No otherdiscrete focal lesion. It is understood patient has narrowed portal veins with SMA shunt andvarices. Ascites: None demonstrated right upper quadrant Pancreas: Unfortunately, pancreatic bed rather obscured by overlyingbowel. Limited visualized portions of pancreas demonstrate no discretefocal lesion or pancreatic ductal dilatation. MRI dated 08/31/2023 diddemonstrate focal pancreatic body cyst. Right Kidney: Size length: 9.7 cm. No hydronephrosis or focal lesion.Cortex maintained in regard to thickness/echotexture. No demonstrableintrarenal calculus or perinephric abnormality. Right pleural effusion: None demonstrated. IMPRESSION IMPRESSION: Status post cholecystectomy. Hepatic findings compatible with patient's clinical diagnosis ofcirrhosis. Two focal lesions as discussed nonspecific but perhapscomplicated cysts. MRI demonstrated pancreatic lesion not ultrasonographically delineated. Ki Huang MD RAD ULTRASOUND documented in this encounter Visit Diagnoses Diagnosis Alcoholic cirrhosis of liver without ascites (HCC) Alcoholic cirrhosis of liver documented in this encounter Care Teams Concrete Block Layer Relationship Specialty Start Date End Date Rao Ochoa MD [address] [place] [address] PCP - General Internal Medicine 10/11/23 documented as of this encounter
--- OUTSIDE RECORDS SUMMARY | 2024-04-20 03:18 | External Medical Summary | Summary of Care ---
Author Name Unknown Organization [facility] Address [address] [place] [facility] [place] [address] Phone [phone] Care Team Providers Care Field Service Representative Name Role Phone Rao Ochoa MD Primary Care Provider [phone] Reason for Visit * Reason Onset Date Comments Hospital Follow-Up Patient is he re today for a hospital follow up. Patient was in the hospital for abdominal pain for 1 day.Patient is feeling not well, he is having pain in his legs and is very lethargic. Patient would like a refill of tramadol Hospital Follow-Up 12/25/2023 Encounter Details Date Type Department Care Team (Latest Contact Info) Description 11/30/2023 3:00 PM EDT Office Visit [facility] [address] [place] [address] Toby Paz MD [address] [place] [address] Hepatic encephalopathy (HCC)*; Alcoholic cirrhosis of liver without ascites (HCC); RUQ abdominal pain; Avascular necrosis of bone of left hip (HCC); Hyperammonemia (HCC); Peripheral polyneuropathy; Hospital discharge follow-up Allergies Active Allergy Reactions Criticality Noted Date Comments Other Allergy (See Comments) Anaphylaxis High 06/21/2018 Bee stings- swelling documented as of this encounter (statuses as of 12/25/2023) Medications Medication Sig Dispensed Refills Start Date End Date Status Iron (Ferrous Sulfate) 325 (65 Fe) MG Oral Tablet Take by mouth. Ac tive Atorvastatin Calcium 20 MG Oral Tablet (Lipitor)Indicatio ns:Dyslipidemia Take 1 Tablet by mouth in the morning. 90 Tablet 1 3 Active Diclofenac Sodium 1 % External Gel (Voltaren) Apply topically to affected area 2 times a day. Apply to area lateral to left hip 150 g 5 3 Active Additional Information Patient not taking.Reported on [...] affected area. 60 g 5 4 Active Additional Information Patient not taking.Reported on 09/18/2023 FLUoxetine HCl 10 MG Oral Capsule (PROzac) Take 1 Capsule by mouth in the morning. 90 Capsule 3 4 Active Gabapentin 300 MG Oral Capsule (Neurontin) Take 1 Capsule by mouth at bedtime. 30 Capsule 5 4 Active traZODone HCl 50 MG Oral Tablet (Desyrel)Indicatio ns:Primary insomnia Take 2 Tablets by mouth at bedtime. 180 Tablet 3 4 Active prednisoLONE Acetate 1 % Ophthalmic Suspension (Pred Forte) Instill 1 Drop into the right eye in the morning and 1 Drop at noon and 1 Drop in the evening and 1 Drop before bedtime. 4 Active Ofloxacin 0.3 % Ophthalmic Solution (Ocuflox) Instill 1 Drop into the right eye in the morning and 1 Drop at noon and 1 Drop in the evening and 1 Drop before bedtime. 4 Active LORazepam 0.5 MG Oral Tablet [...] Emergency room. 2 Each 1 4 Active Furosemide 20 MG Oral Tablet (Lasix) Take 1 Tablet by mouth in the morning. 90 Tablet 3 4 Active traMADol HCl 50 MG Oral Tablet (Ultram)Indication s:Avascular necrosis of bone of left hip (HCC),Peripheral polyneuropathy Take 1 Tablet by mouth daily as needed for Pain, Severe. Not more than #15 per month due to liver condition 15 Tablet 4 Active Lactulose 10 GM/15ML Oral Solution (Constulose)Indica tions:Hyperammonem ia (HCC) Take 30 mL by mouth in the morning and 30 mL at noon and 30 mL in the evening and 30 mL before bedtime. 946 mL 4 024 Discontinued rifAXIMin 550 MG Oral Tablet (Xifaxan) take 1 tablet by mouth IN THE MORNING then take 1 tablet by mouth BEFORE BEDTIME 60 Tablet 4 024 Discontinued traMADol HCl 50 MG Oral Tablet (Ultram)Indication s:Avascular necrosis of bone of left hip (HCC) Take 1 Tablet by mouth daily as needed for Pain, Severe. Not more than #15 per month due to liver condition 15 Tablet 4 024 Discontinued(Re fill) Hospital, Clinic, or Other Facility Administered Medication Ordered Dose Route Frequency Start Date End Date Status albuterol sulfate (PROVENTIL) (2.5 MG/3ML) 0.083% inhalation solution 2.5 mgIndications:SOB (shortness of breath) 2.5 mg NEBULIZER Q4H PRN 05/10/2018 Act guzman documented as of this encounter (statuses as of 12/25/2023) Active Problems Problem Noted Date Diagnosed Date [...] as of this encounter (statuses as of 12/25/2023) Resolved Problems Problem Noted Date Diagnosed Date Resolved Date History of alcohol abuse 05/22/2023 Alcohol dependence, uncomplicated 01/17/2023 05/22/2023 Avascular necrosis of bone of hip 05/10/2022 05/22/2023 Chronic alcohol abuse 06/17/20212023 Facial swelling 06/09/2017 08/07/2019 Urticaria 06/09/2017 08/07/2019 Intestinal obstruction 05/09/201203/02 CLASSICAL MIGRAINE WITHOU ME NTION OF INTRACTABLE MIGRAINE 11/29/2001 08/07/2019 Undiagnosed cardiac murmurs 11/29/2001 03/02/2017 Overview: Not [place] on 11/29/01 documented as of this encounter (statuses as of 12/25/2023) Immunizations Name Administration Dates Next Due HEP A - Hepatitis A (Adult > 18 yrs) 06/06/2020 Pneumococcal Conjugate Vacci ne, 20-valent ([id number]) 06/24/2022 Seasonal Influenza Virus Vac cine, Unspecified [...] Sign Reading Time Taken Comments Blood Pressure 120/78 11/30/2023 3:11 PM EDT Pulse 68 11/30/2023 3:11 PM EDT Temperature 36.5 C (97.7 F) 11/30/2023 3:11 PM ED T Respiratory Rate 16 11/30/2023 3:11 PM EDT Oxygen Saturation 97% 11/30/2023 3:11 PM EDT Inhaled Oxygen Concentration - - Weight 92.6 kg (204 lb 3.2 oz) 11/30/2023 3:11 P M EDT Height 175.3 cm (5' 9.02") 11/30/2023 3:11 PM ED T Body Mass Index 30.14 11/30/2023 3:11 PM EDT documented in this encounter Functional Status Functional Status Response Date of Assess ment Does this person have seriou s difficulty walking or climbing stairs? Yes 08/23/2021 documented as of this encounter Progress Notes * Toby Paz MD - 12/25/2023 8:25 PM EDT Subjective: Mauro Liu is a 58 year old male here today for Chief Complaint Patient presents with Hospital Follow-Up Patient is here today for a hospital follow up. Patient was in the hospital for abdominal pain for 1 day. Patient is feeling not well, he is having pain in his legs and is very lethargic. Patient would like a refill of tramadol Hospital Follow-Up Pt presents for hospital follow up. Admitted to [facility] 11/16/23 - 11/17/23 with RUQ pain and mental status changes. No clear cause for the RUQ abd pain. Mental status change attributed to hepatic encephalopathy related to alcoholic cirrhosis. Improved with treatment in the hospital. His abd pain has improved but still having pain in his legs. Is lethargic in clinic today - states that he has been taking lactulose and having adequate bowel movements. Recent ammonia level significantly elevated but refuses ED eval. Past Medical History: Diagnosis Date Abdominal pain [...] NON-INVASIVE IMAGING (MRI OR CT) performed by [facility] In And Out Surgery at [facility] COLONOSCOPY, DIAGNOSTIC (RECTUM) 04/10/2015 adenomatous polyps, repeat 3 yrs/COLONOSCOPY FLEXIBLE PROXIMAL DIAGNOSTIC performed by Lopez Shi MD at ENDOSCOPY [facility] COLONOSCOPY, DIAGNOSTIC (RECTUM) 05/18/2018 adenomatous polyps, diverticulosis, repeat 1yr/COLONOSCOPY FLEXIBLE PROXIMAL DIAGNOSTIC performed by Lopez Shi MD at [facility] COLONOSCOPY, DIAGNOSTIC (RECTUM) 05/30/2019 adenomatous polyps, diverticulosis, repeat 3 yrs / COLONOSCOPY FLEXIBLE PROXIMAL DIAGNOSTIC performed by Lopez Shi MD at [facility] COLONOSCOPY, DIAGNOSTIC (RECTUM) 06/30/2021 1-4mm in rectum, otherwise normal / biopsies normal / 5 year recall / COLONOSCOPY FLEXIBLE PROXIMALDIAGNOSTIC performed by Jena Camargo MD at [facility] EGD, FLEXIBLE, DIAGNOSTIC 05/05/2014 normal bx/ESOPHAGOGASTRODUODENOSCOPY (EGD), FLEXIBLE, TRANSORAL, DIAGNOSTIC performed by Ki Huang MD at [facility] EGD, FLEXIBLE, DIAGNOSTIC 04/11/2016 Schatzki ring, hiatal hernia, gastritis/ESOPHAGOGASTRODUODENOSCOPY (EGD), FLEXIBLE, TRANSORAL, DIAGNOSTIC performed by Ki Huang MD at [facility] EGD, FLEXIBLE, DIAGNOSTIC 01/24/2018 w/ [facility] / [facility] EGD, FLEXIBLE, DIAGNOSTIC 07/17/2018 normal biopsies/ESOPHAGOGASTRODUODENOSCOPY (EGD), FLEXIBLE, TRANSORAL, DIAGNOSTIC performed by Lopez Shi MD at [facility] EGD, FLEXIBLE, DIAGNOSTIC 07/07/2020 sm hiatal hernia / ESOPHAGOGASTRODUODENOSCOPY (EGD), FLEXIBLE, TRANSORAL, DIAGNOSTIC performed by Lopez Shi MD at [facility] EGD, FLEXIBLE, DIAGNOSTIC 09/03/2021 esophageal varices, repeat 1 yr / ESOPHAGOGASTRODUODENOSCOPY (EGD), FLEXIBLE, TRANSORAL, DIAGNOSTICperformed by Alen Garcia DO at [facility] EGD, FLEXIBLE, DIAGNOSTIC 07/06/2022 Portal hypertensive gastropathy, eso varices, mild-mod inflammation on bx / ESOPHAGOGASTRODUODENOSCOPY (EGD), FLEXIBLE, TRANSORAL, DIAGNOSTIC performed by Lopez Shi MD at [facility] EGD, FLEXIBLE, DIAGNOSTIC N/A 10/18/2023 ESOPHAGOGASTRODUODENOSCOPY (EGD), FLEXIBLE, TRANSORAL, DIAGNOSTIC performed by Jena Camargo MD at [facility] EGD, W/ENDOSCOPIC US 06/26/2018 retained food, repeat study/ESOPHAGOGASTRODUODENOSCOPY (EGD), FLEXIBLE, TRANSORAL, ENDOSCOPIC ULTRASOUND performed by Lopez Shi MD at [facility] EGD, W/ENDOSCOPIC US 07/17/2018 sludge gallbladder/ESOPHAGOGASTRODUODENOSCOPY (EGD), FLEXIBLE, TRANSORAL, ENDOSCOPIC ULTRASOUND performed by Lopez Shi MD at [facility] IR BIOPSY 02/14/2022 LAPAROSCOPY; CHOLECYSTECTOMY OR ARTHRP ACETBLR/PROX FEM PROSTC AGRFT/ALGRFT Left 04/08/2023 REDUCTION OF 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 04/26/2012 Exploratory laparotomy with extensive lysis of adhesions and repair of small bowel serosal REMOVAL OF RUPTURED APPENDIX 1977 Appendectomy, Rupt Appendx+Abscess Review of patient's allergies indicates: Allergen Reactions Other Allergy (See Comments) Anaphylaxis Bee stings- swelling Current Outpatient Medications Medication Sig Dispense Refill [...] to the Emergency room. 2 Each 1 Furosemide 20 MG Oral Tablet (Lasix) Take [...] before bedtime. (Patient not taking: Reported on09/18/2023) Spironolactone 25 MG Oral Tablet (Aldactone) Take 1 Tablet by mouth in the morning. (Patient not taking: Reported on 11/30/2023) Lactulose 10 GM/15ML Oral Solution (Constulose) Take [...] Take by mouth 2 times a day. Current Facility-Administered Medications Medication Dose Route Frequency Provider Last Rate Last Admin albuterol sulfate (PROVENTIL) (2.5 MG/3ML) 0.083% inhalation solution 2.5 mg 2.5 mg Nebulizer Q4H PRN Toby Paz MD 2.5 mg at 05/10/18 1241 Objective: BP 120/78 | Pulse 68 | Temp 36.5 C (97.7 F) (Tympanic) | Resp 16 | Ht 1.753 m (5' 9.02") | Wt 92.6 kg (204 lb 3.2 oz) | SpO2 97% | BMI 30.14 kg/m | BSA 2.12 m GEN: lethargic but will answer questions appropriately HEENT: Benign NECK: Supple with no LAD, TM, JVD CHEST: CTA B CV: RRR ABD: Soft, NT/ND, No HSM, NABS EXT: No c,c,e Assessment and Plan: Hepatic encephalopathy (HCC) (Primary) Alcoholic cirrhosis of liver without ascites (HCC) -continue same treatments. Stressed the importance of lactulose and taking regularly. Suggested ED eval - he declines. RUQ abdominal pain -resolved Avascular necrosis of bone of left hip (HCC) - traMADol HCl 50 MG Oral Tablet (Ultram); Take 1 Tablet by mouth daily as needed for Pain, Severe.Not more than #15 per month due to liver condition Hyperammonemia (HCC) - AMMONIA; Future; Expected date: 11/30/2023 Peripheral polyneuropathy - traMADol HCl 50 MG Oral Tablet (Ultram); Take 1 Tablet by mouth daily as needed for Pain, Severe.Not more than #15 per month due to liver condition Hospital discharge follow-up - DISCH MED RECON CUR MED COURTNEY Paz MD documented in this encounter Nursing Notes * Vicky Burgos MED ASSIST - 11/30/2023 3:15 PM EDT The patient has been properly identified by confirmation of name and date of . Chief Complaint Patient presents with Hospital Follow-Up Patient is here today for a hospital follow up. Patient was in the hospital for abdominal pain for 1 day. Patient is feeling not well, he is having pain in his legs and is very lethargic. documented in this encounter Plan of Treatment Upcoming Encounters Date Type Department Care Team (Late st Contact Info) Description 01/03/2024 11:00 AM EDT Nurse Only Gastroenterology, Andriy Cabrera [address] [place] [address] [place] [phone] Nurse Andriy Gastro Mag Thomas [address] [place] [address] [address] [place] [address] 01/03/2024 12:30 PM EDT Appointment Radiology, [address] [place] [address] 01/17/2024 3:40 PM EDT Office Visit [facility] [address] [facility] [place] [address] Britni De La Cruz MD [address] [facility] [place] [address] Scheduled Orders Name Type Priority Associated Diagnoses Orde r Schedule AMMONIA Lab Routine Hyperammonemia (HCC) Expected: 11/30/2023, Expires: 11/29/2024 Scheduled Procedures Name Priority Associated Diagnoses Date/Ti me COLONOSCOPY FLEXIBLE PROXIMAL DIAGNOSTIC Recall History of colon polyps Health Maintenance Due Date Last Done Comments Cologuard 2009 Fecal Occult Blood Test 2009 Sigmoidoscopy 2009 COVID-19 Vaccine ( season) 2023 Influenza Vaccine (FLU shot) (#1) 2023 12/08/2022, 12/14/2021, 05/04/2021, Additional history exists Depression Monitoring 04/17/2024 04/17/2023 Colonoscopy 06/30/2024 06/30/2021, 06/03, 05/30/2019, Additional history exists Colorectal Cancer Screening 06/30/2024 GFR 10/09/2024 10/10/2023, 07/0 12/2023, 09/06/2023, Additional history exists Albumin/Creatinine Ratio 07/09/2026 07/10/2023 Diabetes Screening 10/09/2026 10/10/2023, 0 09/06/2023, 08/11/2023, Additional history exists DTap/Tdap Vaccines (2 - [...] without ascites (HCC) Alcoholic cirrhosis of liver RUQ abdominal pain Abdominal pain, right upper quadrant Avascular necrosis of bone of left hip (HCC) Hyperammonemia (HCC) Disorders of urea cycle metabolism Peripheral polyneuropathy Unspecified hereditary and idiopathic peripheral neuropathy Hospital discharge follow-up Other follow-up examination documented in this encounter Care Teams Field Service Representative Relationship Specialty Start Date End Date Rao Ochoa MD [address] [place] [address] PCP - General Internal Medicine 10/11/23 documented as of this encounter
--- OUTSIDE RECORDS SUMMARY | 2024-04-20 03:18 | External Medical Summary ---
Author Name Unknown Address Unknown Organization [id number]:[facility] [place] [address] [facility] [place] [address] Laboratory Report Ordering Provider Test Date Status KONRAD MALDONADO 01/03/2024 11:16:39 Final Observation Date Value Abnormality Reference (Units ) Status BUN 01/03/2024 11:16:39 17 6-20 (mg/dL) Final Creatinine 01/03/2024 11:16:39 1.1 0.6-1.2 (mg/dL) Final Glomerular filtration rate/1.73 sq M.predicted [Volume Rate/Area] in Serum, Plasma or Blood by Creatinine-based formula (CKD-EPI) 01/03/2024 11:16:39 76 >=60 (mL/min) Final eGFR is calculated based on the CKD-EPI 2020 equation. Sodium 01/03/2024 11:16:39 140 135-146 (m mol/L) Final Potassium 01/03/2024 11:16:39 4.2 3.5-5.1 (m mol/L) Final Cl 01/03/2024 11:16:39 109 Above high normal 98 -107 (mmol/L) Final CO2 01/03/2024 11:16:39 21 Below low normal 22- 32 (mmol/L) Final Anion gap 01/03/2024 11:16:39 10 7-15 (mmol /L) Final Glucose 01/03/2024 11:16:39 91 70-120 (mg /dL) Final Albumin 01/03/2024 11:16:39 3.8 3.8-5.0 (g /dL) Final AST (Aspartate aminotransferase) 01/03/2024 11:16:39 58 Above high normal 10-50 (U/L) Final Results may be falsely eleva araseli due to hemolysis. Alk Phos 01/03/2024 11:16:39 135 Above high normal 35 -130 (U/L) Final Bilirubin, Total 01/03/2024 11:16:39 2.6 Above high no rmal <=1.2 (mg/dL) Final Calcium 01/03/2024 11:16:39 9.1 8.4-10.2 ( mg/dL) Final Protein 01/03/2024 11:16:39 6.4 6.0-8.3 (g /dL) Final ALT (Alanine aminotransferase) 01/03/2024 11:16:39 40 10-50 (U/L) Ryder joyce Performing Location [facility] [place] [address] [facility] [address]
--- OUTSIDE RECORDS SUMMARY | 2024-04-20 03:18 | External Medical Summary ---
Author Name Unknown Address Unknown Organization : Laboratory Report Ordering Provider Test Date Status KONRAD MALDONADO 01/03/2024 11:16:39 Final Observation Date Value Abnormality Reference (Units ) Status Zinc, level 01/03/2024 11:16:39 82 60-130 ( mcg/dL) Final This test was developed and its analytical performance
characteristics have been determined by [facility]
[place] It has
not been cleared or approved by the U.S. Food and Drug
Administration. This assay has been validated pursuant
to the CLIA regulations and is used for clinical
purposes.

Test Performed at:
[facility]
[address] [facility]
[place] [address]
Iván Winkler M.D., Ph.D.,Director of Laboratories Performing Location
--- OUTSIDE RECORDS SUMMARY | 2024-04-20 03:18 | External Medical Summary | Summary of Care ---
Author Name Unknown Organization [facility] Address [address] [place] [address] Phone [phone] Care Team Providers Care Emergency Medical Technician Name Role Phone Rao Ochoa MD Primary Care Provider [phone] Reason for Visit * Reason Comments Outpatient Testing Encounter Details Date Type Department Care Team (Late st Contact Info) Description 01/03/2024 11:30 AM EDT Laboratory Laboratory, [facility] [address] [place] [id number] [facility], Lab [address] [place], [place] [id number] Alcoholic cirrhosis of liver without ascites (HCC) Allergies Active Allergy Reactions Criticality Noted Date Comments Other Allergy (See Comments) Anaphylaxis High 06/21/2018 Bee stings- swelling documented as of this encounter (statuses as of 01/03/2024) Medications Medication Sig Dispensed Refills Start Date [...] as of this encounter (statuses as of 01/03/2024) Active Problems Problem Noted Date Diagnosed Date [...] heart disease 08/29/2 002 Overview: father had KS's in 40's Gastroesophageal reflux disease with esophagitis documented as of this encounter (statuses as of 01/03/2024) Resolved Problems Problem Noted Date Diagnosed Date Resolved Date History of alcohol abuse 05/22/2023 Alcohol dependence, uncomplicated 01/17/2023 05/22/2023 Avascular necrosis of bone of hip 05/10/2022 05/22/2023 Chronic alcohol abuse 06/17/20212023 Facial swelling 06/09/2017 08/07/2019 Urticaria 06/09/2017 08/07/2019 Intestinal obstruction 05/09/201203/02 CLASSICAL MIGRAINE WITHOU ME NTION OF INTRACTABLE MIGRAINE 11/29/2001 08/07/2019 Undiagnosed cardiac murmurs 11/29/2001 03/02/2017 Overview: Not [place] on 11/29/01 documented as of this encounter (statuses as of 01/03/2024) Immunizations Name Administration Dates Next Due HEP A - Hepatitis A (Adult > 18 yrs) 06/06/2020 Pneumococcal Conjugate Vacci ne, 20-valent ([id number]) 06/24/2022 Seasonal Influenza Virus Vac cine, Unspecified [...] Team (Late st Contact Info) Description 01/03/2024 12:30 PM EDT [address] [place] [address] 01/17/2024 3:40 PM EDT Office Visit Neurology [facility] [address] [place] [address] Britni De La Cruz MD [address] [place] [address] Pending Results Name Type Priority Associated Diagnoses Date /Time COMPREHENSIVE METABOLIC PANEL Lab Routine Alcoholic cirrhosis of liver without ascites (HCC) 01/03/2024 11:16 AM EDT ALPHA-FETOPROTEIN TUMOR MARKER Lab Routine Alcoholic cirrhosis of liver without ascites (HCC) 01/03/2024 11:16 AM EDT CBC WITH WBC DIFFERENTIAL Lab Routine Alcoholic cirrhosis of liver without ascites (HCC) 01/03/2024 11:16 AM EDT FERRITIN Lab Routine Alcoholic cirrhosis of liver without ascites (HCC) 01/03/2024 11:16 AM EDT ZINC Lab Routine Alcoholic cirrhosis of liver without ascites (HCC) 01/03/2024 11:16 AM EDT COPPER, SERUM OR PLASMA Lab Routine Alcoholic cirrhosis of liver without ascites (HCC) 01/03/2024 11:16 AM EDT CBC Lab Routine Alcoholic cirrhosis of liver without ascites (HCC) 01/03/2024 11:16 AM EDT DIFFERENTIAL, AUTOMATED Lab Routine Alcoholic cirrhosis of liver without ascites (HCC) 01/03/2024 11:16 AM EDT Scheduled Procedures Name Priority Associated [...] liver documented in this encounter Care Teams Emergency Medical Technician Relationship Specialty Start Date End Date Rao Ochoa MD [address] [place] [address] PCP - General Internal Medicine 10/11/23 documented as of this encounter
--- OUTSIDE RECORDS SUMMARY | 2024-04-20 03:18 | External Medical Summary | Summary of Care ---
Author Name Unknown Organization [facility] Address [address] [facility] [address] Phone [phone] Care Team Providers Care Marketing Support Manager Name Role Phone Rao Ochoa MD Primary Care Provider [phone] Reason for Referral * Precert (Within 10 days (routine)) - Pending Review Specialty Diagnoses / Procedures Referred By Pj t Referred To Contact Radiology Diagnoses Cirrhosis of liver (HCC) Procedures MRI LIVER W WO CONTRAST Ki Huang MD [address] [place] [address] Referral ID Status Reason Start Date Expiration Date V isits Requested Visits Authorized [id number] Pending Review 02/03/2024 999 999 Reason for Visit * Reason Onset Date Comments Office Procedure Medication Administration 01/03/2024 Flu an d/or Pneumo Inj Encounter Details Date Type Department Care Team (Late st Contact Info) Description 01/03/2024 11:00 AM EDT Nurse Only Gastroenterology, [address] [place], Andriy [facility] [place] [address] [address] [facility] [place] [address] [place] [address] Office Procedure; Medication Administratio... Allergies [...] 4 Discontinu ed(Medicat ion List Clean Up) Hospital, Clinic, or Other [...] Undiagnosed cardiac murmurs 11/29/2001 03/02/2017 Overview: Not [place] on 11/29/01 documented as of this encounter (statuses as of 01/03/2024) Immunizations Name Administration Dates Next Due HEP A - Hepatitis A (Adult > 18 yrs) 06/06/2020 Pneumococcal Conjugate Vacci ne, 20-valent ([id number]) 06/24/2022 Seasonal Influenza Virus Vac cine, Unspecified [...] No 04/17/2023 Does the household have a [facility] source of income? (Household - for ages [...] Tijerina RN - 01/03/2024 10:49 AM EDT [facility] Department of Gastroenterology & Hepatology Fibroscan/Vibration Controlled [...] consideration of non selective beta tonia. Signature: MD Harish Whalen [facility] Gastroenterology [address] [place] [address] References: Salomón Smith. (2014) Utilization of FibroScan in Clinical Practice. Curr Gastroenterol Rep. DOI 10.1007/s74690-031-1344-2 Table 1 Recommended values for different stage [...] symptoms or fever? No Have you had Guillain-Fruitvale Syndrome (an illness that causes paralysis) within [...] 01/17/2024 3:40 PM EDT Office Visit Neurology [facility] [place] [address] [facility] [place] [address] Britni De La Cruz MD [address] [facility] [place] [address] Pending Results Name Type Priority Associated Diagnoses [...] influenza documented in this encounter Care Teams Marketing Support Manager Relationship Specialty Start Date End Date Rao Ochoa MD [address] [place] [address] PCP - General Internal Medicine 10/11/23 documented as of this encounter
--- OUTSIDE RECORDS SUMMARY | 2024-04-20 03:18 | External Medical Summary | Summary of Care ---
Author Name Unknown Organization [facility] Address [address] [place] [facility] [place] [address] Phone [phone] Care Team Providers Care Automatic Glove Former Name Role Phone Georgia Ochoa MD Primary Care Provider [phone] Reason for Visit * Reason Comments eRx-Medication Refill Encounter Details Date Type Department Care Team (Late st Contact Info) Description 01/01/2024 Refill [facility] [address] [place] [address] Georgia Ochoa MD [address] [place] [address] Hyperammonemia (HCC) Allergies Active Allergy Reactions Criticality Noted Date Comments Other Allergy (See Comments) Anaphylaxis High 06/21/2018 Bee stings- swelling documented as of this encounter (statuses as of 01/01/2024) Medications Medication Sig Dispensed Refills Start Date [...] to liver condition 15 Tablet 4 Active rifAXIMin 550 MG Oral Tablet (Xifaxan) take 1 tablet by mouth IN THE MORNING then take 1 tablet by mouth BEFORE BEDTIME 60 Tablet 4 Active Zinc Acetate 50 MG Oral Capsule Take by mouth 2 times a day. Active Lactulose 10 GM/15ML Oral Solution (Constulose)Indicat ions:Hyperammonemia (HCC) Take 30 mL by mouth in the morning and 30 mL at noon and 30 mL in the evening and 30 mL before bedtime. 946 mL 4 Active Lactulose 10 GM/15ML Oral Solution (Constulose)Indicat ions:Hyperammonemia (HCC) Take 30 mL by mouth in the morning and 30 mL at noon and 30 mL in the evening and 30 mL before bedtime. 946 mL 4 01/01/20 24 Discontinued Hospital, Clinic, or Other Facility Administered Medication Ordered Dose Route Frequency Start Date End Date Status albuterol sulfate (PROVENTIL) (2.5 MG/3ML) 0.083% inhalation solution 2.5 mgIndications:SOB (shortness of breath) 2.5 mg NEBULIZER Q4H PRN 05/10/2018 Act guzman documented as of this encounter (statuses as of 01/01/2024) Active Problems Problem Noted Date Diagnosed Date [...] 3.0 cm AAA noted on MRI Liver 7/18/23 Iron deficiency anemia due to chronic blood [...] ischemic heart disease 002 Overview: father had HI's in 40's Gastroesophageal reflux disease with esophagitis documented as of this encounter (statuses as of 01/01/2024) Resolved Problems Problem Noted Date Diagnosed Date Resolved Date History of alcohol abuse 05/22/2023 Alcohol dependence, uncomplicated 01/17/2023 05/22/2023 Avascular necrosis of bone of hip 05/10/2022 05/22/2023 Chronic alcohol abuse 06/17/20212023 Facial swelling 06/09/2017 08/07/2019 Urticaria 06/09/2017 08/07/2019 Intestinal obstruction 05/09/201203/02 CLASSICAL MIGRAINE WITHOU ME NTION OF INTRACTABLE MIGRAINE 11/29/2001 08/07/2019 Undiagnosed cardiac murmurs 11/29/2001 03/02/2017 Overview: Not [place] on 11/29/01 documented as of this encounter (statuses as of 01/01/2024) Immunizations Name Administration Dates Next Due HEP A - Hepatitis A (Adult > 18 yrs) 06/06/2020 Pneumococcal Conjugate Vacci ne, 20-valent ([id number]) 06/24/2022 Seasonal Influenza Virus Vac cine, Unspecified [...] Telephone Encounter - Georgia Ochoa MD - 01/01/2024 2:25 PM EDTSigned Prescriptions: Disp Refills Lactulose 10 GM/15ML Oral Solution (Constu*946 mL 0 Sig: Take 30 mL by mouth in the morning and 30 mL at noon and 30 mL in the evening and 30 mL before bedtime. Authorizing Provider: GEORGIA OCHOA * Telephone Encounter - Anselmo Strauss CMA - 01/01/2024 1:43 PM EDTPending Prescriptions: Disp Refills Lactulose 10 GM/15ML Oral Solution [Pharma*946 mL 0 Sig: Take 30 mL by mouth in the morning and 30 mL at noon and 30 mL in the evening and 30 mL before bedtime. * Telephone Encounter - Anselmo Strauss CMA - 01/01/2024 1:42 PM EDT Did you pend patient's preferred pharmacy and medication before forwarding?yes Pharmacy: [id number] [place] Pending Prescriptions: Disp Refills Lactulose 10 GM/15ML Oral Solution (Const*946 mL 0 Sig: Take 30 mL by mouth in the morning and 30 mL at noon and 30 mL in the evening and 30 mL before bedtime. Last Visit: 11/30/2023 (in office), Visit date not found (telemedicine) Next Visit: 01/02/2024 If no future appointments scheduled, and last appointment is greater than a year ago, please schedule patient for a follow-up appointment Last date the medication was ordered: 12.05.2023 Is this request for a controlled substance?No [...] in Results Review. Patient Phone Numbers mobile [phone] Labs: Lab Results Component Value Date/Time CREAT 0.8 10/10/2023 11:34 AM CREAT 0.85 08/11/2023 08:43 AM CREAT 0.8 04/16/2020 11:06 AM POTASSIUM 4.2 10/10/2023 11:34 AM POTASSIUM 3.6 08/11/2023 08:43 AM POTASSIUM 3.8 02/24/2020 12:06 PM TSH 0.75 10/10/2023 11:34 AM TSH 0.73 06/21/2018 03:01 PM LDL 43 03/31/2023 10:15 AM LDL 78 02/24/2020 12:06 PM LDL NOT APPLICABLE 02/24/2020 12:06 PM LDLCALC 47 08/11/2023 08:43 AM ALT 37 09/06/2023 11:22 AM ALT 31 08/11/2023 08:43 AM ALT 65 (H) 02/24/2020 12:06 PM HGBA1C 5.0 08/11/2023 08:43 AM HGBA1C 5.0 08/11/2023 08:43 AM * Telephone Encounter - Daljit Atkinson - 01/01/2024 1:11 PM EDTPending Prescriptions: Disp Refills Lactulose 10 GM/15ML Oral Solution [Pharma*946 mL 0 Sig: Take 30 mL by mouth in the morning and 30 mL at noon and 30 mL in the evening and 30 mL before bedtime.---- documented in this encounter Plan of Treatment Upcoming Encounters Date Type Department Care Team (Late st Contact Info) Description 01/02/2024 3:20 PM EDT Office Visit [facility] [address] [place] [facility] [address] Georgia Ochoa MD [address] [place] [address] 01/03/2024 11:00 AM EDT Nurse Only Gastroenterology, [address] [place] [address] [place] [id number] [place], Nurse [address] [place] [address] 01/03/2024 12:30 PM EDT Appointment Radiology, [facility] [address] [place] [address] 01/17/2024 3:40 PM EDT Office Visit Neurology [facility] [address] [place] [address] Britni De La Cruz MD [address] [place] [address] Scheduled Procedures Name Priority Associated Diagnoses Date/Ti [...] Years) Completed 06/24/2022 Zoster Vaccines Discontinued 08/23/2023 HPV (Gardasil) Vaccine Aged Out No lo [...] metabolism documented in this encounter Care Teams Automatic Glove Former Relationship Specialty Start Date End Date Georgia Ochoa MD [address] [place] [address] PCP - General Internal Medicine 10/11/23 documented as of this encounter
--- OUTSIDE RECORDS SUMMARY | 2024-04-20 03:18 | External Medical Summary ---
Author Name Unknown Address Unknown Organization K01:[facility] [address] [place] [address] Laboratory Report Ordering Provider Test Date Status JOELZAKIMEAGAN 01/03/2024 11:16:39 Final Observation Date Value Abnormality Reference (Units ) Status Ferritin 01/03/2024 11:16:39 314 30-400 (ng /mL) Final Performing Location [facility] [address] [place] [address]
--- OUTSIDE RECORDS SUMMARY | 2024-04-20 03:18 | External Medical Summary | Summary of Care ---
Author Name Unknown Organization [facility] Address [address] [facility] [place] [address] Phone [phone] Care Team Providers Care Station Captain Name Role Phone Rao Ochoa MD Primary Care Provider [phone] Reason for Visit * Reason Onset Date Comments Test Results 01/05/2024 Encounter Details Date Type Department Care Team (Late st Contact Info) Description 01/05/2024 Telephone Gastroenterology, [facility] [address] [place] [address] Ki Huang MD [address] [place] [address] Test Results Allergies Active Allergy Reactions Criticality Noted Date Comments Other Allergy (See Comments) Anaphylaxis High 06/21/2018 Bee stings- swelling documented as of this encounter (statuses as of 01/11/2024) Medications Medication Sig Dispensed Refills Start Date [...] as of this encounter (statuses as of 01/11/2024) Active Problems Problem Noted Date Diagnosed Date [...] ischemic heart disease 002 Overview: father had [place]'s in 40's Gastroesophageal reflux disease with esophagitis documented as of this encounter (statuses as of 01/11/2024) Resolved Problems Problem Noted Date Diagnosed Date Resolved Date History of alcohol abuse 05/22/2023 Alcohol dependence, uncomplicated 01/17/2023 05/22/2023 Avascular necrosis of bone of hip 05/10/2022 05/22/2023 Chronic alcohol abuse 06/17/20212023 Facial swelling 06/09/2017 08/07/2019 Urticaria 06/09/2017 08/07/2019 Intestinal obstruction 05/09/201203/02 CLASSICAL MIGRAINE WITHOU ME NTION OF INTRACTABLE MIGRAINE 11/29/2001 08/07/2019 Undiagnosed cardiac murmurs 11/29/2001 03/02/2017 Overview: Not [place] on 11/29/01 documented as of this encounter (statuses as of 01/11/2024) Immunizations Name Administration Dates Next Due HEP A - Hepatitis A (Adult > 18 yrs) 06/06/2020 Pneumococcal Conjugate Vacci ne, 20-valent ([id number]) 06/24/2022 Seasonal Influenza Virus Vac cine, Unspecified [...] within 2-3 weeks? Ki Huang MD P [facility] Nurse Pool/Class Pt's copper levels are mildly low. He should dc zinc supplements, which can interfere with copper absorption. documented in this encounter Plan of Treatment Upcoming Encounters Date Type Department Care Team (Late st Contact Info) Description 01/17/2024 3:40 PM EDT Office Visit Neurology [facility] [address] [place] [address] Britni De La Cruz MD [address] [place] [address] 02/03/2024 11:00 AM EDT Imaging Radiology [address] [place] [address] Scheduled Procedures Name Priority Associated Diagnoses Date/Ti [...] filedocumented as of this encounter Care Teams Station Captain Relationship Specialty Start Date End Date Rao Ochoa MD [address] [place] [address] PCP - General Internal Medicine 10/11/23 documented as of this encounter
--- OUTSIDE RECORDS SUMMARY | 2024-04-20 03:18 | External Medical Summary ---
Author Name Unknown Address Unknown Organization K01:[facility] [place] [address] [facility] [place] [address] Laboratory Report Ordering Provider Test Date Status KONRAD MALDONADO 01/03/2024 11:16:39 Final Observation Date Value Abnormality Reference (Units ) Status Alpha-Fetoprotein 01/03/2024 11:16:39 2.0 0. 0-8.3 (ng/mL) Final Performing Location [facility] [place] [address] [facility] [place] [address]
--- OUTSIDE RECORDS SUMMARY | 2024-04-20 03:18 | External Medical Summary | Summary of Care ---
Author Name Unknown Organization [facility] Address [address] [facility] [place] [address] Phone [phone] Care Team Providers Care Field Cane Scaler Name Role Phone Rao Ochoa MD Primary Care Provider [phone] Reason for Visit * Reason Onset Date Comments Appointment 12/22/2023 Encounter Details Date Type Department Care Team (Late st Contact Info) Description 12/22/2023 Telephone Gastroenterology, [facility] [address] [place] [address] Marilou Andrews DO [address] [place] [address] Appointment Allergies Active Allergy Reactions Criticality Noted [...] Emergency room. 2 Each 1 4 Active traMADol HCl 50 MG Oral [...] by mouth 2 times a day. Active prednisoLONE Acetate 1 % Ophthalmic Suspension (Pred Forte) Instill 1 Drop into the right eye in the morning and 1 Drop at noon and 1 Drop in the evening and 1 Drop before bedtime. 4 024 Discontinued(Me dication List Clean Up) Ofloxacin 0.3 % Ophthalmic Solution (Ocuflox) Instill 1 Drop into the right eye in the morning and 1 Drop at noon and 1 Drop in the evening and 1 Drop before bedtime. 4 024 Discontinued(Me dication List Clean Up) Furosemide 20 MG Oral Tablet (Lasix) Take 1 Tablet by mouth in the morning. 90 Tablet 3 4 024 Discontinued(Me dication/Dose Changed) Lactulose 10 GM/15ML Oral Solution (Constulose)Indica tions:Hyperammonem ia (HCC) Take 30 mL by mouth in the morning and 30 mL at noon and 30 mL in the evening and 30 mL before bedtime. 946 mL 4 Discontinued Hospital, Clinic, or Other Facility [...] Undiagnosed cardiac murmurs 11/29/2001 03/02/2017 Overview: Not [place] on 11/29/01 documented as of this encounter (statuses as of 01/03/2024) Immunizations Name Administration Dates Next Due HEP A - Hepatitis A (Adult > 18 yrs) 06/06/2020 Pneumococcal Conjugate Vacci ne, 20-valent ([id number]) 06/24/2022 Seasonal Influenza Virus Vac cine, Unspecified [...] encounter Miscellaneous Notes * Telephone Encounter - Hollie Zhong OSA - 01/03/2024 12:14 PM EDT Unable to lm mb full Letter sent DAISHA Villanueva 01/03/2024 12:15 PM * Telephone Encounter - Hollie Zhong OSA - 12/22/2023 9:13 AM EDT Pt no showed for appt on 12/21/23. Was asked to reschedule appt. Unable to lm, vm full DAISHA Villan[place] 12/22/2023 9:14 AM documented in this encounter Plan of Treatment Upcoming Encounters Date Type Department Care Team (Late st Contact Info) Description 01/03/2024 11:40 AM EDT Hospital Encounter Radiology, [facility] [address] [place] [address] Arrived 01/17/2024 3:40 PM EDT Office Visit Neurology [facility] [address] [facility] [place] [address] Britni De La Cruz MD [address] [facility] [place] [address] Scheduled Procedures Name Priority Associated Diagnoses Date/Ti [...] as of this encounter Care Teams Field Cane Scaler Relationship Specialty Start Date End Date Rao Ochoa MD [address] [place] [address] PCP - General Internal Medicine 10/11/23 documented as of this encounter
--- OUTSIDE RECORDS SUMMARY | 2024-04-20 03:18 | External Medical Summary | Summary of Care ---
Author Name Unknown Organization [facility] Address [address] [facility] [place] [address] Phone [phone] Care Team Providers Care Tape Sewer Name Role Phone Rao Ochoa MD Primary Care Provider [phone] Reason for Visit * Reason Onset Date Comments Test Results 01/05/2024 Encounter Details Date Type Department Care Team (Late st Contact Info) Description 01/05/2024 Telephone Gastroenterology, [facility] [address] [place] [address] Ki Huang MD [address] [place] [address] Test Results Allergies Active Allergy Reactions Criticality Noted Date Comments Other Allergy (See Comments) Anaphylaxis High 06/21/2018 Bee stings- swelling documented as of this encounter (statuses as of 01/05/2024) Medications Medication Sig Dispensed Refills Start Date [...] as of this encounter (statuses as of 01/05/2024) Active Problems Problem Noted Date Diagnosed Date [...] as of this encounter (statuses as of 01/05/2024) Resolved Problems Problem Noted Date Diagnosed Date Resolved Date History of alcohol abuse 05/22/2023 Alcohol dependence, uncomplicated 01/17/2023 05/22/2023 Avascular necrosis of bone of hip 05/10/2022 05/22/2023 Chronic alcohol abuse 06/17/20212023 Facial swelling 06/09/2017 08/07/2019 Urticaria 06/09/2017 08/07/2019 Intestinal obstruction 05/09/201203/02 CLASSICAL MIGRAINE WITHOU ME NTION OF INTRACTABLE MIGRAINE 11/29/2001 08/07/2019 Undiagnosed cardiac murmurs 11/29/2001 03/02/2017 Overview: Not [place] on 11/29/01 documented as of this encounter (statuses as of 01/05/2024) Immunizations Name Administration Dates Next Due HEP A - Hepatitis A (Adult > 18 yrs) 06/06/2020 Pneumococcal Conjugate Vacci ne, 20-valent ([id number]) 06/24/2022 Seasonal Influenza Virus Vac cine, Unspecified [...] within 2-3 weeks? Ki Huang MD P [facility] Nurse Pool/Class Pt's copper levels are mildly low. He should dc zinc supplements, which can interfere with copper absorption. documented in this encounter Plan of Treatment Upcoming Encounters Date Type Department Care Team (Late st Contact Info) Description 01/17/2024 3:40 PM EDT Office Visit Neurology [facility] [address] [facility] [place] [address] Britni De La Cruz MD [address] [facility] [place] [address] Scheduled Procedures Name Priority Associated Diagnoses Date/Ti [...] filedocumented as of this encounter Care Teams Tape Sewer Relationship Specialty Start Date End Date Rao Ochoa MD [address] [place] [address] PCP - General Internal Medicine 10/11/23 documented as of this encounter
--- OUTSIDE RECORDS SUMMARY | 2024-04-20 03:18 | External Medical Summary | Summary of Care ---
Author Name Unknown Organization [facility] Address [address] [facility] [address] Phone [phone] Care Team Providers Care Ground Crewman Aircraft Support Name Role Phone Rao Ochoa MD Primary Care Provider [phone] Encounter Details Date Type Department Care Team (Late st Contact Info) Description 01/02/2024 Refill [facility] [address] [place] [address] Rao Ochoa MD [address] [place] [address] Allergies Active Allergy Reactions Criticality Noted Date Comments Other Allergy (See Comments) Anaphylaxis High 06/21/2018 Bee stings- swelling documented as of this encounter (statuses as of 01/02/2024) Medications Medication Sig Dispensed Refills Start Date [...] mouth daily 90 Tablet 1 01/02/2024 Active Furosemide 20 MG Oral Tablet (Lasix) Take 1 Tablet by mouth in the morning. 90 Tablet 3 11/14/2023 4 Discontinu ed(Medicat ion/Dose Changed) Furosemide 40 MG Oral Tablet (Lasix) 10/08/2023 01/02/20 2 4 Discontinu ed(Refill) Hospital, Clinic, or Other Facility Administered Medication Ordered Dose Route Frequency Start Date End Date Status albuterol sulfate (PROVENTIL) (2.5 MG/3ML) 0.083% inhalation solution 2.5 mgIndications:SOB (shortness of breath) 2.5 mg NEBULIZER Q4H PRN 05/10/2018 Act guzman documented as of this encounter (statuses as of 01/02/2024) Active Problems Problem Noted Date Diagnosed Date [...] as of this encounter (statuses as of 01/02/2024) Resolved Problems Problem Noted Date Diagnosed Date [...] as of this encounter (statuses as of 01/02/2024) Immunizations Name Administration Dates Next Due HEP A - Hepatitis A (Adult > 18 yrs) 06/06/2020 Pneumococcal Conjugate Vacci ne, 20-valent ([id number]) 06/24/2022 Seasonal Influenza Virus Vac cine, Unspecified [...] Telephone Encounter - Kiley Singh MD - 01/02/2024 4:29 PM EDTSigned Prescriptions: Disp Refills Furosemide 40 MG Oral Tablet (Lasix) 90 Tab*1 Sig: Take 1 tab bymouth dailyAuthorizing Provider: KILEY SINGH * Telephone Encounter - Bhavya Burgos, MED ASSIST - 01/02/2024 1:24 PM EDT Did you pend patient's preferred pharmacy and medication before forwarding?yes Pharmacy: Pending Prescriptions: Disp Refills Furosemide 40 MG Oral Tablet (Lasix) Signed Prescriptions: Disp Refills Furosemide 40 MG Oral Tablet (Lasix) Authorizing Provider: HISTORY PER PATIENT Ordering User: BHAVYA BURGOS Last Visit: 11/30/2023 (in office), Visit date not found (telemedicine) Next Visit: Visit date not found If no future appointments scheduled, and last appointment is greater than a year ago, please schedule patient for a follow-up appointment Last date the medication was ordered: 10/08/2023 Is this request for a controlled substance?No [...] in Results Review. Patient Phone Numbers mobile [phone] Labs: Lab Results Component Value Date/Time CREAT [...] AM EDT Nurse Only Gastroenterology, [address], [place] [address] [place] [address] [place], Nurse Gastro [address] [place] [address] 01/03/2024 12:30 PM EDT Appointment Radiology, [facility] [address] [facility] [place] [address] 01/17/2024 3:40 PM EDT Office Visit Neurology [facility] [address] [place] [address] Britni De La Cruz MD [address] [place] [address] Scheduled Procedures Name Priority Associated Diagnoses Date/Ti [...] filedocumented as of this encounter Care Teams Ground Crewman Aircraft Support Relationship Specialty Start Date End Date Rao Ochoa MD [address] [place] [address] PCP - General Internal Medicine 10/11/23 documented as of this encounter
--- OUTSIDE RECORDS SUMMARY | 2024-04-20 03:18 | External Medical Summary ---
Author Name Unknown Address Unknown Organization K01:LABORATORY [facility] - [address] [place] [address] [place] [address] Laboratory Report Ordering Provider Test Date Status KONRAD MALDONADO 01/03/2024 11:16:39 Final Observation Date Value Abnormality Reference (Units ) Status WBC, Total 01/03/2024 11:16:39 7.26 4.00-10.8 0 (K/uL) Final RBC 01/03/2024 11:16:39 4.71 4.50-5.25 (M/uL) Final Hemoglobin 01/03/2024 11:16:39 16.0 14.0-16.8 (g/dL) Final HCT 01/03/2024 11:16:39 46.9 40.0-48.4 (%) Final MCV 01/03/2024 11:16:39 99.6 82.0-99.5 (fL) Final MCH 01/03/2024 11:16:39 34.0 27.0-34.0 (pg) Final MCHC 01/03/2024 11:16:39 34.1 32.0-36.0 (g/dL) Final RDW 01/03/2024 11:16:39 15.4 11.5-15.5 (%) Final Platelets 01/03/2024 11:16:39 41 Below low normal 140 -400 (K/uL) Final MPV 01/03/2024 11:16:39 Final No result - abnormal platele t distribution. Nucleated erythrocytes/100 l eukocytes [Ratio] in Blood by Automated count 01/03/2024 11:16:39 0 <=0 (/100 WBCs) Final Performing Location LAB[facility]ORY [facility] - [address] [place] [address]
--- OUTSIDE RECORDS SUMMARY | 2024-04-20 03:18 | External Medical Summary ---
Author Name Unknown Address Unknown Organization K01:[facility] [place] [address] [facility] [place] [address] Laboratory Report Ordering Provider Test Date Status KONRAD MALDONADO 01/03/2024 11:16:39 Final Observation Date Value Abnormality Reference (Units ) Status SYNC LEUKOCYTES IN BLOOD BY AUTOMATED COUNT 01/03/2024 11:16:39 7.26 4.00-10.80 (K/uL) Final Segs 01/03/2024 11:16:39 61.7 40.0-75.0 (%) Final Lymphs % 01/03/2024 11:16:39 18.2 18.0-42.0 (%) Final Monos 01/03/2024 11:16:39 11.0 1.0-11.0 (%) Final Eosinophils 01/03/2024 11:16:39 7.9 Above high normal 0.0-6.0 (%) Final Basos 01/03/2024 11:16:39 1.1 0.0-2.0 (%) Final Immature Granulocyte, Percent 01/03/2024 11:16:39 0.1 0.0-2.0 (%) Final Absolute Segs 01/03/2024 11:16:39 4.48 1.80-7.70 (K/uL) Final Lymphs, absolute 01/03/2024 11:16:39 1.32 1.00-4.80 (K/ul) Final Monos, Abs 01/03/2024 11:16:39 0.80 0.00-1.10 (K/uL) Final Eos, Abs 01/03/2024 11:16:39 0.57 0.00-0.70 (K/uL) Final Basos, Abs 01/03/2024 11:16:39 0.08 0.00-0.20 (K/uL) Final Immature Granulocytes, Number 01/03/2024 11:16:39 0.01 0.00-0.20 (K/uL) Final Performing Location [facility] [place] [address] [facility] [address]
--- OUTSIDE RECORDS SUMMARY | 2024-04-20 03:18 | External Medical Summary ---
Author Name Unknown Address Unknown Organization : Laboratory Report Ordering Provider Test Date Status KONRAD MALDONADO 01/03/2024 11:16:39 Final Observation Date Value Abnormality Reference (Units ) Status Copper 01/03/2024 11:16:39 56 Below low normal 70- 175 (mcg/dL) Final This test was developed and its analytical performance
characteristics have been determined by [employer]
[place] It has
not been cleared or approved by the U.S. Food and Drug
Administration. This assay has been validated pursuant
to the CLIA regulations and is used for clinical
purposes.

Test Performed at:
[facility] [place]
[address] [facility] [place] [address]
Iván Winkler M.D., Ph.D.,Director of Laboratories Performing Location
--- OUTSIDE RECORDS SUMMARY | 2024-04-20 03:19 | External Medical Summary | Summary of Care ---
Author Name Unknown Organization [facility] Address [address] [facility] [place] [address] Phone [phone] Care Team Providers Care Appraisal Technician Name Role Phone Rao Ochoa MD Primary Care Provider [phone] Reason for Visit * Reason Comments Follow Up Pt here to f/u from EGD 10/18/23. Pt has a hx of cirrhosis/varices and GERD. Encounter Details Date Type Department Care Team (Late st Contact Info) Description 12/19/2023 3:40 PM EDT Office Visit Gastroenterology, [facility] [address] [place] [address] Ki Huang MD [address] [place] [address] Alcoholic cirrhosis of liver without ascites (HCC)* Allergies Active Allergy Reactions Criticality Noted Date Comments Other Allergy (See Comments) Anaphylaxis High 06/21/2018 Bee stings- swelling documented as of this encounter (statuses as of 12/19/2023) Medications Medication Sig Dispensed Refills Start Date [...] Emergency room. 2 Each 1 08/17/2023 Active Furosemide 20 MG Oral Tablet (Lasix) Take 1 Tablet by mouth in the morning. 90 Tablet 3 11/14/2023 Active traMADol HCl 50 MG Oral Tablet (Ultram)Indications: Avascular necrosis of bone of left hip (HCC),Peripheral polyneuropathy Take 1 Tablet by mouth daily as needed for Pain, Severe. Not more than #15 per month due to liver condition 15 Tablet 11/30/2023 Active Lactulose 10 GM/15ML Oral Solution (Constulose)Indicati ons:Hyperammonemia (HCC) Take 30 mL by mouth in the morning and 30 mL at noon and 30 mL in the evening and 30 mL before bedtime. 946 mL 12/05/2023 Active rifAXIMin 550 MG Oral Tablet (Xifaxan) take 1 tablet by mouth IN THE MORNING then take 1 tablet by mouth BEFORE BEDTIME 60 Tablet 12/18/2023 Active Zinc Acetate 50 MG Oral Capsule Take by mouth 2 times a day. Active Hospital, Clinic, or Other Facility Administered Medication Ordered Dose Route Frequency Start Date End Date Status albuterol sulfate (PROVENTIL) (2.5 MG/3ML) 0.083% inhalation solution 2.5 mgIndications:SOB (shortness of breath) 2.5 mg NEBULIZER Q4H PRN 05/10/2018 Act guzman documented as of this encounter (statuses as of 12/19/2023) Active Problems Problem Noted Date Diagnosed Date [...] as of this encounter (statuses as of 12/19/2023) Resolved Problems Problem Noted Date Diagnosed Date Resolved Date History of alcohol abuse 05/22/2023 Alcohol dependence, uncomplicated 01/17/2023 05/22/2023 Avascular necrosis of bone of hip 05/10/2022 05/22/2023 Chronic alcohol abuse 06/17/20212023 Facial swelling 06/09/2017 08/07/2019 Urticaria 06/09/2017 08/07/2019 Intestinal obstruction 05/09/201203/02 CLASSICAL MIGRAINE WITHOU ME NTION OF INTRACTABLE MIGRAINE 11/29/2001 08/07/2019 Undiagnosed cardiac murmurs 11/29/2001 03/02/2017 Overview: Not [place] on 11/29/01 documented as of this encounter (statuses as of 12/19/2023) Immunizations Name Administration Dates Next Due HEP A - Hepatitis A (Adult > 18 yrs) 06/06/2020 Pneumococcal Conjugate Vacci ne, 20-valent ([id number]) 06/24/2022 Seasonal Influenza Virus Vac cine, Unspecified [...] Sign Reading Time Taken Comments Blood Pressure 116/72 12/19/2023 3:40 PM EDT Pulse 68 12/19/2023 3:40 PM EDT Temperature 36.7 C (98 F) 12/19/2023 3:40 PM EDT Respiratory Rate - - Oxygen Saturation 96% 12/19/2023 3:40 PM EDT Inhaled Oxygen Concentration - - Weight 92.6 kg (204 lb 1.6 oz) 12/19/2023 3:40 P M EDT Height - - Body Mass Index 30.12 11/30/2023 3:11 PM EDT documented in this encounter Functional Status Functional Status Response Date of Assess ment Does this person have seriou s difficulty walking or climbing stairs? Yes 08/23/2021 documented as of this encounter Progress Notes * Ki Huang MD - 12/19/2023 4:15 PM EDT CC: Recheck cirrhosis HPI: 12/25: His weight is increased 5-10 lbs above baseline. He has leg swelling, but denies increased abd girth. He takes lasix 40 daily, unable to take aldactone due to gynecomastia, reports compliance with low Na. His PETH is 24. He is evasive about alcohol use - initially denies this, but then admits to drinking beer occasionally. He reports difficulty with word finding and poor sleep. His ammonia is increased. He takes Lactulose 30 QID with 4 BMs daily, rifaxaimn 550 BID, zinc supplements daily. He also takes Ativan once daily; tramadol once a month; Neurontin, trazodone. He denies bleeding or bruising. He recently underwent EGD which showed "faint" G1 varices without red luz signs and moderate portal gastropathy. Notes from 08/24: Recall that year old male with history of migraines, bowel obstruction, HTN, GERD, DDDand decompensated ETOH cirrhosis complicated by EV, ascites, [...] otherwise normal on direct and retroflexion views. Hep ephalopathy: Maintained on Rifixamin 550mg BID and Lactulose w instructions to titrate to 3BMs/day. Most recent admission for hep enceph in June 2023. Varices: EGD July 2022: [...] dated 12/30/2021. 3. Trace ascites. MELD 3.0: 11 at 09/06/2023 11:22 AM Calculated from: Serum Creatinine: 0.9 mg/dL (Using min of 1 mg/dL) at 09/06/2023 11:22 AM Serum Sodium: 142 mmol/L (Using max of 137 mmol/L) at 09/06/2023 11:22 AM Total Bilirubin: 1.4 mg/dL at 09/06/2023 11:22 AM Serum Albumin: 3.5 g/dL at 09/06/2023 11:22 AM INR(ratio): 1.5 at 09/06/2023 11:22 AM Age at listing (hypothetical): 58 years Sex: Male at 09/06/2023 11:22 AM Varices: EGD July 2022: Grade I [...] 3. Additional findings and details as above. Current Outpatient Medications Medication Sig Dispense Refill [...] by mouth at bedtime. 30 Capsule 5 LORazepam 0.5 MG Oral Tablet (Ativan) Take 1 Tablet by mouth every 6 hours as needed. Furosemide 20 MG Oral Tablet (Lasix) Take 1 Tablet by mouth in the morning. 90 Tablet 3 traMADol HCl 50 MG Oral Tablet (Ultram) Take 1 Tablet by mouth daily as needed for Pain, Severe. Not more than #15 per month due to liver condition 15 Tablet 0 Lactulose 10 GM/15ML Oral Solution [...] Take by mouth 2 times a day. Diclofenac Sodium 1 % External Gel (Voltaren) Apply topically to affected area 2 times a day. Applyto area lateral to left hip (Patient not taking: Reported on 10/10/2023) 150 g 5 Triamcinolone Acetonide 0.1 % External Cream (Aristocort) Apply topically to affected area 2 times a day. To affected area. (Patient not taking: Reported on 09/18/2023) 60 g 5 traZODone HCl 50 MG Oral Tablet [...] morning. (Patient not taking: Reported on 11/30/2023) EpiPen 2-Dave 0.3 MG/0.3ML Injection Solution Auto-injector [...] Paz MD 2.5 mg at 05/10/18 1241 EXAM: BP 116/72 | Pulse 68 | Temp 36.7 C (98 F) | Wt 92.6 kg (204 lb 1.6 oz) | SpO2 96% | BMI 30.12 kg/m | BSA 2.12 m GENERAL: 58 year old male well [...] no lateralizing findings, Sensory/Motor grossly normal IMPRESSION/RECOMMENDATIONS: Cirrhosis - MELD now. - HCC screen with uls + AFP due in February. - Regarding HE -- We had long discussion regardnig possiblity that his meds are aggravating his confusion. He refuses to stop Neurontin and Ativan, but is agreeable after long discussion to reductionin trazodone dose from 100 to 50. I will also increase his lactulose to 45/45/30/30, which he is reluctantly willing to do. Of note, imaging shows large portosystemic shunt which may be contrib to HE; if HE refractory, consider IR consult to see if there is intervention amenable here, or consider trial of clonidine to reduce shunt flow. Check serum copper and zinc levels due to zinc supp. - Regarding volume -- His weight is increased, but he does not have evidence of significant volume overload on exam. Cont Lasix 40, and check BMP. If uls shows sig ascites, then would consider addition of amiloride. - Regarding need for BB -- Notes describe poor tolerance of BB in the past, and he has only small varices on recent EGD. I have ordered a fibroscan to screen for clinically significant portal hypertension, which seems likely due to imaging findings and low plts; if meets Baveno criteria for CSPH, may reconsider NSBB. ARGELIA - Hgb in September was normal. Will recheck now, with ferritin. RTC 1 month in hepatology clinic. documented in this encounter Nursing Notes * Lesly Turner CMA - 12/19/2023 3:40 PM EDT Chief Complaint Patient presents with Follow Up Pt here to f/u from EGD 10/18/23. Pt has a hx of cirrhosis/varices and GERD. documented in this encounter Plan of Treatment Upcoming Encounters Date Type Department Care Team (Late st Contact Info) Description 12/25/2023 11:00 AM EDT Laboratory Laboratory, [place] [address] [place] [id number] [place], Laboratory [address] [place] [address] 01/03/2024 11:00 AM EDT Nurse Only Gastroenterology, [address], [place] [address] [place] [address] [place], Nurse Gastro [address] [place] [address] 01/03/2024 12:30 PM EDT Appointment Radiology, [facility] [address] [facility] [place] [address] 01/17/2024 3:40 PM EDT Office Visit Neurology [facility] [place] [address] [facility] [place] [address] Britni De La Cruz MD [address] [place] [address] Scheduled Orders Name Type Priority Associated Diagnoses Orde r Schedule US ABDOMEN LIMITED Medical Imaging Routine Alcoholic cirrhosis of liver without ascites (HCC) Expected: 12/19/2023, Expires: 01/17/2025 LIVER ELASTOGRAPHY W/O IMAGING Procedures Routine Alcoholic cirrhosis of liver without ascites (HCC) Ordered: 12/19/2023 COMPREHENSIVE METABOLIC PANEL Lab Routine Alcoholic cirrhosis of liver without ascites (HCC) Expected: 12/19/2023, Expires: 12/18/2024 ALPHA-FETOPROTEIN TUMOR MARKER Lab Routine Alcoholic cirrhosis of liver without ascites (HCC) Expected: 12/19/2023, Expires: 12/18/2024 CBC WITH WBC DIFFERENTIAL Lab Routine Alcoholic cirrhosis of liver without ascites (HCC) Expected: 12/19/2023, Expires: 12/18/2024 FERRITIN Lab Routine Alcoholic cirrhosis of liver without ascites (HCC) Expected: 12/19/2023, Expires: 12/18/2024 ZINC Lab Routine Alcoholic cirrhosis of liver without ascites (HCC) Expected: 12/19/2023, Expires: 12/18/2024 COPPER, SERUM OR PLASMA Lab Routine Alcoholic cirrhosis of liver without ascites (HCC) Expected: 12/19/2023, Expires: 12/18/2024 Scheduled Procedures Name Priority Associated Diagnoses Date/Ti [...] liver documented in this encounter Care Teams Appraisal Technician Relationship Specialty Start Date End Date Rao Ochoa MD [address] [place] [phone] PCP - General Internal Medicine 10/11/23 documented as of this encounter
--- OUTSIDE RECORDS SUMMARY | 2024-04-20 03:19 | External Medical Summary | Summary of Care ---
Author Name Unknown Organization [facility] Address [address] [facility] [place] [address] Phone [phone] Care Team Providers Care Supervisor Reinforced Steel Placing Name Role Phone Rao Ochoa MD Primary Care Provider [phone] Encounter Details Date Type Department Care Team (Late st Contact Info) Description 12/25/2023 Population Health External Data Unspecified Department Allergies [...] Undiagnosed cardiac murmurs 11/29/2001 03/02/2017 Overview: Not [place] on 11/29/01 documented as of this encounter (statuses as of 12/25/2023) Immunizations Name Administration Dates Next Due HEP A - Hepatitis A (Adult > 18 yrs) 06/06/2020 Pneumococcal Conjugate Vacci ne, 20-valent ([id number]) 06/24/2022 Seasonal Influenza Virus Vac cine, Unspecified [...] Description 12/25/2023 11:00 AM EDT Laboratory Laboratory, [place] [address] [place] [address] [facility] [address] [place] [address] 01/03/2024 11:00 AM EDT Nurse Only Gastroenterology, [facility], [place] [address] [place] [address] [place], Nurse Gastro [address] [facility] [address] [facility] [address] [place] [address] 01/03/2024 12:30 PM EDT Appointment Radiology, [address] [address] 01/17/2024 3:40 PM EDT Office Visit Neurology [facility]ande[facility] [place] [address] [facility] [place] [address] Britni De La Cruz MD [address] [facility] [place] [address] Scheduled Procedures Name Priority Associated Diagnoses Date/Ti [...] as of this encounter Care Teams Supervisor Reinforced Steel Placing Relationship Specialty Start Date End Date Rao Ochoa MD [address] [place] [address] PCP - General Internal Medicine 10/11/23 documented as of this encounter
--- OUTSIDE RECORDS SUMMARY | 2024-04-20 03:19 | External Medical Summary | Summary of Care ---
Author Name Unknown Organization [facility] Address [address] [facility] [place] [address] Phone [phone] Care Team Providers Care Microsoft Exchange Administrator Name Role Phone Rao Ochoa MD Primary Care Provider Reason for Visit * Reason Onset Date Comments Appointment 12/22/2023 Encounter Details Date Type Department Care Team (Late st Contact Info) Description 12/22/2023 Telephone Gastroenterology, [facility] [address] [place] [address] Marilou Andrews DO [address] [place] [address] Appointment Allergies Active Allergy Reactions Criticality Noted Date Comments Other Allergy (See Comments) Anaphylaxis High 06/21/2018 Bee stings- swelling documented as of this encounter (statuses as of 12/22/2023) Medications Medication Sig Dispensed Refills Start Date [...] as of this encounter (statuses as of 12/22/2023) Active Problems Problem Noted Date Diagnosed Date [...] as of this encounter (statuses as of 12/22/2023) Resolved Problems Problem Noted Date Diagnosed Date Resolved Date History of alcohol abuse 05/22/2023 Alcohol dependence, uncomplicated 01/17/2023 05/22/2023 Avascular necrosis of bone of hip 05/10/2022 05/22/2023 Chronic alcohol abuse 06/17/20212023 Facial swelling 06/09/2017 08/07/2019 Urticaria 06/09/2017 08/07/2019 Intestinal obstruction 05/09/201203/02 CLASSICAL MIGRAINE WITHOU ME NTION OF INTRACTABLE MIGRAINE 11/29/2001 08/07/2019 Undiagnosed cardiac murmurs 11/29/2001 03/02/2017 Overview: Not [facility] on 11/29/01 documented as of this encounter (statuses as of 12/22/2023) Immunizations Name Administration Dates Next Due HEP A - Hepatitis A (Adult > 18 yrs) 06/06/2020 Pneumococcal Conjugate Vacci ne, 20-valent ([id number]) 06/24/2022 Seasonal Influenza Virus Vac cine, Unspecified Formulation 05/04/2021,01/13/2020,12/18/2018,2017,02/03/2017,12/22/2015,01/14/2015 Seasonal Influenza, PF, 6 M & above, IM , (FluLaval or Fluzone) 12/08/2022,12/14/2021,05/04/2021,2019,12/18/2018,02/01/2018,02/03/2017 Seasonal Influenza, Quadriva mihait, No Preserve, IM 12/22/2015,01/14/2015 TDAP (age 10 [...] Description 12/25/2023 11:00 AM EDT Laboratory Laboratory, [place] [address] [place] [address] [place], Laboratory [address] [place] [address] 01/03/2024 11:00 AM EDT Nurse Only Gastroenterology, [place] [address] [place] [address] [place] Nurse [address]astro [address] [place] [address] 01/03/2024 12:30 PM EDT Appointment Radiology, [facility] [address] [place] [address] 01/17/2024 3:40 PM EDT Office Visit Neurology [place] [address] [facility] [place] [address] Britni De La Cruz MD [address] [facility] [place] [address] Scheduled Procedures Name Priority Associated Diagnoses Date/Ti [...] filedocumented as of this encounter Care Teams Microsoft Exchange Administrator Relationship Specialty Start Date End Date Rao Ochoa MD [address] [place] [address] PCP - General Internal Medicine 10/11/23 documented as of this encounter
--- OUTSIDE RECORDS SUMMARY | 2024-04-20 03:19 | External Medical Summary | Summary of Care ---
Author Name Unknown Organization [facility] Address [address] [facility] [place] [address] Phone [phone] Care Team Providers Care Associate Professor Of Pathology Name Role Phone Rao Ochoa MD Primary Care Provider [phone] Encounter Details Date Type Department Care Team (Late st Contact Info) Description 12/19/2023 Telephone Gastroenterology, [facility] [address] [place] [address] Ki Huang MD [address] [place] [address] Allergies Active Allergy Reactions Criticality Noted Date Comments Other Allergy (See Comments) Anaphylaxis High 06/21/2018 Bee stings- swelling documented as of this encounter (statuses as of 12/21/2023) Medications Medication Sig Dispensed Refills Start Date [...] as of this encounter (statuses as of 12/21/2023) Active Problems Problem Noted Date Diagnosed Date [...] as of this encounter (statuses as of 12/21/2023) Resolved Problems Problem Noted Date Diagnosed Date Resolved Date History of alcohol abuse 05/22/2023 Alcohol dependence, uncomplicated 01/17/2023 05/22/2023 Avascular necrosis of bone of hip 05/10/2022 05/22/2023 Chronic alcohol abuse 06/17/20212023 Facial swelling 06/09/2017 08/07/2019 Urticaria 06/09/2017 08/07/2019 Intestinal obstruction 05/09/201203/02 CLASSICAL MIGRAINE WITHOU ME NTION OF INTRACTABLE MIGRAINE 11/29/2001 08/07/2019 Undiagnosed cardiac murmurs 11/29/2001 03/02/2017 Overview: Not [place] on 11/29/01 documented as of this encounter (statuses as of 12/21/2023) Immunizations Name Administration Dates Next Due HEP A - Hepatitis A (Adult > 18 yrs) 06/06/2020 Pneumococcal Conjugate Vacci ne, 20-valent ([id number]) 06/24/2022 Seasonal Influenza Virus Vac cine, Unspecified [...] Telephone Encounter - Hollie Zhong OSA - 12/21/2023 2:40 PM EDT Pt no showed for appt on 12/21/23 DAISHA Villanueva 12/21/2023 2:41 PM * Telephone Encounter - Kyleigh Torre OSA - 12/19/2023 4:46 PM EDT Was unable to schedule w/ hepatology (2 week f/u) due to no openings, told pt I would call tomorrowwith any available overbook spots documented in this encounter Plan of Treatment Upcoming Encounters Date Type Department Care Team (Late st Contact Info) Description 12/25/2023 11:00 AM EDT [facility] [place] [address] [facility] [phone] [place], Laboratory [address] [place] [facility] [place] [address] 01/03/2024 11:00 AM EDT Nurse Only Gastroenterology, Andriy Cabrera [address] [place] [address] [place], Nurse [address] [place] [address] 01/03/2024 12:30 PM EDT Appointment Radiology, [facility] [address] [facility] [place] [address] 01/17/2024 3:40 PM EDT Office Visit Neurology [facility] [address] [place] [address] Britni De La Cruz MD [address] [place] [address] Scheduled Procedures Name Priority Associated Diagnoses Date/Ti [...] this encounter Care Teams Associate Professor Of Pathology Relationship Specialty Start Date End Date Rao Ochoa MD [address] [place] [address] PCP - General Internal Medicine 10/11/23 documented as of this encounter
--- OUTSIDE RECORDS SUMMARY | 2024-04-20 03:19 | External Medical Summary | Summary of Care ---
Author Name Unknown Organization [facility] Address [address] [facility] [place] [address] Phone [phone] Care Team Providers Care Broadcast Operations Technician Name Role Phone aRo Ochoa MD Primary Care Provider [phone] Encounter Details Date Type Department Care Team (Late st Contact Info) Description 12/20/2023 Telephone Gastroenterology, [facility] [address] [place] [address] Ki Huang MD [address] [place] [address] Allergies Active Allergy Reactions Criticality Noted Date [...] Undiagnosed cardiac murmurs 11/29/2001 03/02/2017 Overview: Not [place] on 11/29/01 documented as of this encounter (statuses as of 12/22/2023) Immunizations Name Administration Dates Next Due HEP A - Hepatitis A (Adult > 18 yrs) 06/06/2020 Pneumococcal Conjugate Vacci ne, 20-valent ([id number]) 06/24/2022 Seasonal Influenza Virus Vac cine, Unspecified [...] encounter Miscellaneous Notes * Telephone Encounter - Kyleigh Torre OSA - 12/20/2023 8:40 AM EDT Pt saw Reina in office on 12/18, wants pt to be seen by hepatology in two weeks. I was unableto find an opening, is there anywhere I could place him on the schedule? Thank you! documented in this encounter Plan of Treatment Upcoming Encounters Date Type Department Care Team (Late st Contact Info) Description 12/25/2023 11:00 AM EDT Laboratory Laboratory, [place] [address] [place] [address] [facility] Laboratory [address] [place] [address] 01/03/2024 11:00 AM EDT Nurse Only Gastroenterology, Andriy Cabrera [facility] [address] [place] [id number] Nurse Andriy [address] [place] [address] 01/03/2024 12:30 PM EDT Appointment Radiology, [facility] [address] [facility] [place] [id number] 01/17/2024 3:40 PM EDT Office Visit [facility]rology [facility] [address] [facility] [address] Britni De La Cruz MD [address] [facility] [place] [address] Scheduled Procedures Name Priority Associated Diagnoses Date/Ti [...] filedocumented as of this encounter Care Teams Broadcast Operations Technician Relationship Specialty Start Date End Date Rao Ochoa MD [address] [place] [address] PCP - General Internal Medicine 10/11/23 documented as of this encounter
--- OUTSIDE RECORDS SUMMARY | 2024-04-20 03:19 | External Medical Summary | Summary of Care ---
Author Name Unknown Organization [facility] Address [address] [place] [facility] [place] [place] [address] Phone [phone] Care Team Providers Care Smooth Stucco Resurfacer Name Role Phone Rao Ochoa MD Primary Care Provider [phone] Reason for Visit * Reason Comments eRx-Medication Refill Encounter Details Date Type Department Care Team (Late st Contact Info) Description 12/16/2023 Refill [facility] [address] [place] [address] Rao Ochoa MD [address] [place] [address] Allergies Active Allergy Reactions Criticality [...] mL before bedtime. 946 mL 4 Active rifAXIMin 550 MG Oral Tablet (Xifaxan) take 1 tablet by mouth IN THE MORNING then take 1 tablet by mouth BEFORE BEDTIME 60 Tablet 4 Active rifAXIMin 550 MG Oral Tablet (Xifaxan) take 1 tablet by mouth IN THE MORNING then take 1 tablet by mouth BEFORE BEDTIME 60 Tablet 4 12/18/19 24 Discontinued Hospital, Clinic, or Other Facility [...] yrs) 06/06/2020 Pneumococcal Conjugate Vacci ne, 20-valent ([id number]) 06/24/2022 Seasonal Influenza Virus Vac cine, Unspecified [...] encounter Miscellaneous Notes * Telephone Encounter - Camille Pleitez LPN - 12/19/2023 4:06 PM EDTSigned Prescriptions: Disp Refills rifAXIMin 550 MG Oral Tablet (Xifaxan) 60 Tab*0 Sig: take 1 tablet by mouth IN THE MORNING then take 1 tablet by mouth BEFORE BEDTIMEAuthorizing Provider: MARTIN OCHOA * Telephone Encounter - Tata Lopez LPN - 12/19/2023 8:23 AM EDTSigned Prescriptions: Disp Refills rifAXIMin 550 MG Oral Tablet (Xifaxan) 60 Tab*0 Sig: take 1 tablet by mouth IN THE MORNING then take 1 tablet by mouth BEFORE BEDTIMEAuthorizing Provider: MARTIN OCHOA * Telephone Encounter - Daljit Atkinson - 12/16/2023 1:08 PM EDTPending Prescriptions: Disp Refills Xifaxan 550 MG Oral Tablet [Pharmacy Med N*60 Tab*0 Sig: take 1 tablet by mouth IN THE MORNING then take 1 tablet by mouth BEFORE BEDTIME * Telephone Encounter - Kira Dc CPhT - 12/16/2023 11:42 AM EDT Pt has 1 tablet left Did you pend patient's preferred pharmacy and medication before forwarding?yes [id number] [address] [facility] Pending Prescriptions: Disp Refills rifAXIMin 550 MG Oral Tablet (Xifaxan) [P*60 Tab*0 Sig: take 1 tablet by mouth IN THE MORNING then take 1 tablet by mouth BEFORE BEDTIME Last Visit: 11/30/2023 (in office), Visit date not found (telemedicine) Next Visit: Visit date not found If no future appointments scheduled, and last appointment is greater than a year ago, please schedule patient for a follow-up appointment Last date the medication was ordered: 10/23/23 Is this request for a controlled substance?No [...] in Results Review. Patient Phone Numbers mobile [phone] Labs: Lab Results Component Value Date/Time CREAT [...] Office Visit Neurology [facility] [address] [place] [address] Britni De La Cruz MD [address] [place] [address] Scheduled Procedures Name Priority Associated Diagnoses Date/Ti [...] filedocumented as of this encounter Care Teams Smooth Stucco Resurfacer Relationship Specialty Start Date End Date Rao Ochoa MD [address] [place] [address] PCP - General Internal Medicine 10/11/23 documented as of this encounter
--- OUTSIDE RECORDS SUMMARY | 2024-04-20 03:20 | External Medical Summary | Summary of Care ---
Author Name Unknown Organization [facility] Address [address] [facility] [place] [address] Phone [phone] Care Team Providers Care Night Auditor Name Role Phone Rao Ochoa MD Primary Care Provider [phone] Reason for Visit * Reason Comments eRx-Medication Refill Encounter Details Date Type Department Care Team (Late st Contact Info) Description 12/16/2023 Refill [facility] [address] [place] [address] Rao Ochoa MD [address] [place] [address] Allergies Active Allergy Reactions Criticality [...] 2.5 mg NEBULIZER Q4H PRN 05/10/2018 Act guzmna documented as of this encounter (statuses as [...] Undiagnosed cardiac murmurs 11/29/2001 03/02/2017 Overview: Not [place] on 11/29/01 documented as of this encounter (statuses as of 12/19/2023) Immunizations Name Administration Dates Next Due HEP A - Hepatitis A (Adult > 18 yrs) 06/06/2020 Pneumococcal Conjugate Vacci ne, 20-valent ([id number]) 06/24/2022 Seasonal Influenza Virus Vac cine, Unspecified [...] BEFORE BEDTIME * Telephone Encounter - Kira Dc, metrology specialist - 12/16/2023 11:42 AM EDT Pt has 1 tablet left Did you pend patient's preferred pharmacy and medication before forwarding?yes Pharmacy: [id number] [place] Pending Prescriptions: Disp Refills rifAXIMin 550 MG [...] in Results Review. Patient Phone Numbers mobile [phone] Labs: Lab Results Component Value Date/Time CREAT [...] 12/19/2023 3:40 PM EDT Office Visit Gastroenterology, [facility] [address] [facility] [place] [address] Ki uHang MD [address] [facility] [place] [address] 01/17/2024 3:40 PM EDT Office Visit Neurology [facility] [place] [address] [facility] [place] [address] Britni De La Cruz MD [address] [facility] [place] [address] Scheduled Procedures Name Priority Associated Diagnoses Date/Ti [...] Colorectal Cancer Screening 06/30/2024 GFR 10/09/2024 10/10/2023, 070 12/2023, 09/06/2023, Additional history exists Albumin/Creatinine Ratio [...] filedocumented as of this encounter Care Teams Night Auditor Relationship Specialty Start Date End Date Rao Ochoa MD [address] [place] [address] PCP - General Internal Medicine 10/11/23 documented as of this encounter
--- OUTSIDE RECORDS SUMMARY | 2024-04-20 03:20 | External Medical Summary | Summary of Care ---
Author Name Unknown Organization [facility] Address [address] [facility] [address] Phone [phone] Care Team Providers Care Carpenter Refrigerator Name Role Phone Rao Ochoa MD Primary Care Provider [phone] Reason for Visit * Reason Onset Date Comments [facility]: Screening 12/01/2023 Encounter Details Date Type Department Care Team (Late st Contact Info) Description 12/01/2023 Telephone [facility] [address] [facility] [place] [address] [facility] [address] [place] [facility] [place] [address] [facility]: Screening Allergies Active Allergy Reactions Criticality Noted Date Comments Other Allergy (See Comments) Anaphylaxis High 06/21/2018 Bee stings- swelling documented as of this encounter (statuses as of 12/01/2023) Medications Medication Sig Dispensed Refills Start Date [...] 08/17/2023 Active Lactulose 10 GM/15ML Oral Solution (Constulose)Indicati ons:Hyperammonemia (HCC) Take 30 mL by mouth in the morning and 30 mL at noon and 30 mL in the evening and 30 mL before bedtime. 946 mL 10/16/2023 Active rifAXIMin 550 MG Oral Tablet (Xifaxan) take 1 tablet by mouth IN THE MORNING then take 1 tablet by mouth BEFORE BEDTIME 60 Tablet 10/23/2023 Active Furosemide 20 MG Oral Tablet (Lasix) Take 1 Tablet by mouth in the morning. 90 Tablet 3 11/14/2023 Active traMADol HCl 50 MG Oral Tablet (Ultram)Indications: Avascular necrosis of bone of left hip (HCC),Peripheral polyneuropathy Take 1 Tablet by mouth daily as needed for Pain, Severe. Not more than #15 per month due to liver condition 15 Tablet 11/30/2023 Active Hospital, Clinic, or Other Facility Administered Medication Ordered Dose Route Frequency Start Date End Date Status albuterol sulfate (PROVENTIL) (2.5 MG/3ML) 0.083% inhalation solution 2.5 mgIndications:SOB (shortness of breath) 2.5 mg NEBULIZER Q4H PRN 05/10/2018 Act guzman documented as of this encounter (statuses as of 12/01/2023) Active Problems Problem Noted Date Diagnosed Date [...] as of this encounter (statuses as of 12/01/2023) Resolved Problems Problem Noted Date Diagnosed Date Resolved Date History of alcohol abuse 05/22/2023 Alcohol dependence, uncomplicated 01/17/2023 05/22/2023 Avascular necrosis of bone of hip 05/10/2022 05/22/2023 Chronic alcohol abuse 06/17/20212023 Facial swelling 06/09/2017 08/07/2019 Urticaria 06/09/2017 08/07/2019 Intestinal obstruction 05/09/201203/02 CLASSICAL MIGRAINE WITHOU ME NTION OF INTRACTABLE MIGRAINE 11/29/2001 08/07/2019 Undiagnosed cardiac murmurs 11/29/2001 03/02/2017 Overview: Not [place] on 11/29/01 documented as of this encounter (statuses as of 12/01/2023) Immunizations Name Administration Dates Next Due HEP A - Hepatitis A (Adult > 18 yrs) 06/06/2020 Pneumococcal Conjugate Vacci ne, 20-valent ([id number]) 06/24/2022 Seasonal Influenza Virus Vac cine, Unspecified [...] Miscellaneous Notes * Telephone Encounter - Lacey Maynard LPN - 12/01/2023 2:41 PM EDT Mauro Liu was referred as a potential candidate for enrollment for [facility]. A review of this chart was completed and: Mauro does not meet criteria for enrollment into [facility]. Referral Source: Monthly Proactive Eligibility List Criteria for Ineligibility: Not Located in Service Area Referring care team was notified via : [employer] communication Pt recently declined [facility] enrollment documented in this encounter Plan of Treatment Upcoming Encounters Date Type Department Care Team (Late st Contact Info) Description 12/28/2023 3:40 PM EDT Office Visit [facility] [address] [place] [address] Britni De La Cruz MD [address] [place] [address] Scheduled Procedures Name Priority Associated Diagnoses Date/Ti [...] filedocumented as of this encounter Care Teams Carpenter Refrigerator Relationship Specialty Start Date End Date Rao Ochoa MD [address] [place] [address] PCP - General Internal Medicine 10/11/23 documented as of this encounter
--- OUTSIDE RECORDS SUMMARY | 2024-04-20 03:20 | External Medical Summary | Summary of Care ---
Author Name Unknown Organization [facility] Address [address] [facility] [place] [address] Phone [phone] Care Team Providers Care Alteration Tailor Apprentice Name Role Phone Rao Ochoa MD Primary Care Provider [phone] Reason for Visit * Reason Onset Date Comments Advice 11/25/2023 Encounter Details Date Type Department Care Team (Late st Contact Info) Description 11/25/2023 Telephone Gastroenterology, [facility] [address] [place] [address] Alen Garcia, [address] [place] [address] Advice Allergies Active Allergy Reactions Criticality Noted Date Comments Other Allergy (See Comments) Anaphylaxis High 06/21/2018 Bee stings- swelling documented as of this encounter (statuses as of 11/25/2023) Medications Medication Sig Dispensed Refills Start Date [...] to liver condition 15 Tablet 11/02/2023 Active Furosemide 20 MG Oral Tablet (Lasix) Take 1 Tablet by mouth in the morning. 90 Tablet 3 11/14/2023 Active Hospital, Clinic, or Other Facility Administered Medication Ordered Dose Route Frequency Start Date End Date Status albuterol sulfate (PROVENTIL) (2.5 MG/3ML) 0.083% inhalation solution 2.5 mgIndications:SOB (shortness of breath) 2.5 mg NEBULIZER Q4H PRN 05/10/2018 Act guzman documented as of this encounter (statuses as of 11/25/2023) Active Problems Problem Noted Date Diagnosed Date [...] as of this encounter (statuses as of 11/25/2023) Resolved Problems Problem Noted Date Diagnosed Date Resolved Date History of alcohol abuse 05/22/2023 Alcohol dependence, uncomplicated 01/17/2023 05/22/2023 Avascular necrosis of bone of hip 05/10/2022 05/22/2023 Chronic alcohol abuse 06/17/20212023 Facial swelling 06/09/2017 08/07/2019 Urticaria 06/09/2017 08/07/2019 Intestinal obstruction 05/09/201203/02 CLASSICAL MIGRAINE WITHOU ME NTION OF INTRACTABLE MIGRAINE 11/29/2001 08/07/2019 Undiagnosed cardiac murmurs 11/29/2001 03/02/2017 Overview: Not [place] on 11/29/01 documented as of this encounter (statuses as of 11/25/2023) Immunizations Name Administration Dates Next Due HEP A - Hepatitis A (Adult > 18 yrs) 06/06/2020 Pneumococcal Conjugate Vacci ne, 20-valent ([id number]) 06/24/2022 Seasonal Influenza Virus Vac cine, Unspecified [...] encounter Miscellaneous Notes * Telephone Encounter - Alen Garcia DO - 11/25/2023 7:42 AM EDT I attempted a call to the patient this morning as his ammonia level was 124. He has a history of cirrhosis and is followed by Dr Camargo and Ms Gordon. I did leave a message for his to contact our office and advised him to seek care at the ER should he have an problems with confusion. documented in this encounter Plan of Treatment Upcoming Encounters Date Type Department Care Team (Late st Contact Info) Description 11/30/2023 3:00 PM EDT Office Visit [facility] [address] [place] [id number] Toby Paz MD [address] [place] [address] 12/28/2023 3:40 PM EDT Office Visit [facility] [address] [facility] [place] [address] Britni De La Cruz MD [address] [facility] [place] [address] Scheduled Procedures Name Priority Associated Diagnoses Date/Ti [...] filedocumented as of this encounter Care Teams Alteration Tailor Apprentice Relationship Specialty Start Date End Date Rao Ochoa MD [address] [place], [place] [phone] PCP - General Internal Medicine 10/11/23 documented as of this encounter
--- OUTSIDE RECORDS SUMMARY | 2024-04-20 03:20 | External Medical Summary | Summary of Care ---
Author Name Unknown Organization [facility] Address [address] [facility] [place] [address] Phone [phone] Care Team Providers Care Functional Director Name Role Phone Rao Ochoa MD Primary Care Provider [phone] Reason for Visit * Reason Comments Outpatient Testing Encounter Details Date Type Department Care Team (Late st Contact Info) Description 11/24/2023 2:00 PM EDT Laboratory Laboratory, [place] [address] [place] [address] [place], Laboratory [address] [place] [address] Alcoholic cirrhosis of liver with ascites (HCC); Alcoholic cirrhosis, unspecified whether ascites present (HCC); Other specified pre-operative examination; Involuntary quiver; Tactile anesthesia; Paresthesia Allergies Active Allergy Reactions Criticality Noted Date Comments Other Allergy (See Comments) Anaphylaxis High 06/21/2018 Bee stings- swelling documented as of this encounter (statuses as of 11/24/2023) Medications Medication Sig Dispensed Refills Start Date [...] as of this encounter (statuses as of 11/24/2023) Active Problems Problem Noted Date Diagnosed Date [...] as of this encounter (statuses as of 11/24/2023) Resolved Problems Problem Noted Date Diagnosed Date Resolved Date History of alcohol abuse 05/22/2023 Alcohol dependence, uncomplicated 01/17/2023 05/22/2023 Avascular necrosis of bone of hip 05/10/2022 05/22/2023 Chronic alcohol abuse 06/17/20212023 Facial swelling 06/09/2017 08/07/2019 Urticaria 06/09/2017 08/07/2019 Intestinal obstruction 05/09/201203/02 CLASSICAL MIGRAINE WITHOU ME NTION OF INTRACTABLE MIGRAINE 11/29/2001 08/07/2019 Undiagnosed cardiac murmurs 11/29/2001 03/02/2017 Overview: Not [place] on 11/29/01 documented as of this encounter (statuses as of 11/24/2023) Immunizations Name Administration Dates Next Due HEP A - Hepatitis A (Adult > 18 yrs) 06/06/2020 Pneumococcal Conjugate Vacci ne, 20-valent ([id number]) 06/24/2022 Seasonal Influenza Virus Vac cine, Unspecified [...] Description 11/30/2023 3:00 PM EDT Office Visit [facility] [address] [place] [phone] Toby Paz MD [address] [place] [address] 12/28/2023 3:40 PM EDT Office [facility] [address] [facility] [place] [address] Britni De La Cruz MD [address] [facility] [place] [address] Pending Results Name Type Priority Associated Diagnoses Date /Time PT INR Lab Routine Alcoholic cirrhosis of liver with ascites (HCC) 11/24/2023 1:48 PM EDT CULTURE, URINE, QUANTITATIVE Lab Routine Alcoholic cirrhosis of liver with ascites (HCC) 11/24/2023 1:48 PM EDT AMMONIA Lab Routine Alcoholic cirrhosis of liver with ascites (HCC) 11/24/2023 1:48 PM EDT PHOSPHATIDYLETHANOL, BLOOD Lab Routine Alcoholic cirrhosis, unspecified whether ascites present (HCC) Other specified pre-operative examination Involuntary quiver Tactile anesthesia Paresthesia 11/24/2023 1:48 PM EDT DRUG TOX MONITORING ALCOHOL METAB, QN, U Lab Routine Alcoholic cirrhosis, unspecified whether ascites present (HCC) Other specified pre-operative examination Involuntary quiver Tactile anesthesia Paresthesia 11/24/2023 1:48 PM EDT Scheduled Procedures Name Priority Associated [...] of this encounter Visit Diagnoses Diagnosis Alcoholic cirrhosis, unspecified whether ascites present (HCC) Other specified pre-operative examination Involuntary quiver Abnormal involuntary movements Tactile anesthesia Disturbance of skin sensation Paresthesia Disturbance of skin sensation documented in this encounter Care Teams Functional Director Relationship Specialty Start Date End Date Rao Ochoa MD [address] [place] [facility] [place] [address] PCP - General Internal Medicine 10/11/23 documented as of this encounter
--- OUTSIDE RECORDS SUMMARY | 2024-04-20 03:20 | External Medical Summary | Summary of Care ---
Author Name Unknown Organization [facility] Address [address] [facility] [place] [address] Phone [phone] Care Team Providers Care Fish Warden Name Role Phone Rao Ochoa MD Primary Care Provider [phone] Encounter Details Date Type Department Care Team (Late st Contact Info) Description 12/06/2023 Orders Only PATIENT PORTAL DO NOT DELETE THIS DEPT USED BY [place] [id number] Allergies Active Allergy Reactions Criticality Noted Date Comments Other Allergy (See Comments) Anaphylaxis High 06/21/2018 Bee stings- swelling documented as of this encounter (statuses as of 12/06/2023) Medications Medication Sig Dispensed Refills Start Date [...] mL before bedtime. 946 mL 12/05/2023 Active Hospital, Clinic, or Other Facility Administered Medication Ordered Dose Route Frequency Start Date End Date Status albuterol sulfate (PROVENTIL) (2.5 MG/3ML) 0.083% inhalation solution 2.5 mgIndications:SOB (shortness of breath) 2.5 mg NEBULIZER Q4H PRN 05/10/2018 Act guzman documented as of this encounter (statuses as of 12/06/2023) Active Problems Problem Noted Date Diagnosed Date [...] as of this encounter (statuses as of 12/06/2023) Resolved Problems Problem Noted Date Diagnosed Date Resolved Date History of alcohol abuse 05/22/2023 Alcohol dependence, uncomplicated 01/17/2023 05/22/2023 Avascular necrosis of bone of hip 05/10/2022 05/22/2023 Chronic alcohol abuse 06/17/20212023 Facial swelling 06/09/2017 08/07/2019 Urticaria 06/09/2017 08/07/2019 Intestinal obstruction 05/09/201203/02 CLASSICAL MIGRAINE WITHOU ME NTION OF INTRACTABLE MIGRAINE 11/29/2001 08/07/2019 Undiagnosed cardiac murmurs 11/29/2001 03/02/2017 Overview: Not [place] on 11/29/01 documented as of this encounter (statuses as of 12/06/2023) Immunizations Name Administration Dates Next Due HEP A - Hepatitis A (Adult > 18 yrs) 06/06/2020 Pneumococcal Conjugate Vacci ne, 20-valent ([id number]) 06/24/2022 Seasonal Influenza Virus Vac cine, Unspecified [...] 12/28/2023 3:40 PM EDT Office Visit Neurology [facility] [address] [facility] [place] [address] Britni De La Cruz MD [address] [place] [address] 04/11/2024 9:30 AM EST Office Visit Gastroenterology, [facility] [address] [place] [address] Keyanna Gordon CRNP [address] [facility] [address] Scheduled Procedures Name Priority Associated Diagnoses Date/Ti [...] filedocumented as of this encounter Care Teams Fish Warden Relationship Specialty Start Date End Date Rao Ochoa MD [address] [place] [address] PCP - General Internal Medicine 10/11/23 documented as of this encounter
--- OUTSIDE RECORDS SUMMARY | 2024-04-20 03:20 | External Medical Summary | Summary of Care ---
Author Name Unknown Organization [facility] Address [address] [facility] [place] [address] Phone [phone] Care Team Providers Care Crook Operator Name Role Phone Rao Ochoa MD Primary Care Provider [phone] Reason for Visit * Reason Comments eRx-Medication Refill Encounter Details Date Type Department Care Team (Late st Contact Info) Description 12/16/2023 Refill [facility] [address] [place] [address] Rao Ochoa MD [address] [place] [address] Allergies Active Allergy Reactions Criticality [...] Undiagnosed cardiac murmurs 11/29/2001 03/02/2017 Overview: Not [place] on 11/29/01 documented as of this encounter (statuses as of 12/19/2023) Immunizations Name Administration Dates Next Due HEP A - Hepatitis A (Adult > 18 yrs) 06/06/2020 Pneumococcal Conjugate Vacci ne, 20-valent ([id number]) 06/24/2022 Seasonal Influenza Virus Vac cine, Unspecified [...] BEDTIME * Telephone Encounter - Kira Dc, railroad car repair supervisor - 12/16/2023 11:42 AM EDT Pt has [...] in Results Review. Patient Phone Numbers mobile [phone] Labs: Lab Results Component Value Date/Time CREAT [...] 12/19/2023 3:40 PM EDT Office Visit Gastroenterology, [facility] [address] [facility] [place] [address] Ki Huang MD [address] [facility] [place] [address] 01/17/2024 3:40 PM EDT Office Visit Neurology [facility] [place] [address] [facility] [place] [address] Britni De La Cruz MD [address] [facility] [place] [address] Scheduled Procedures Name Priority Associated Diagnoses Date/Ti [...] filedocumented as of this encounter Care Teams Crook Operator Relationship Specialty Start Date End Date Rao Ochoa MD [address] [place] [address] PCP - General Internal Medicine 10/11/23 documented as of this encounter
--- OUTSIDE RECORDS SUMMARY | 2024-04-20 03:20 | External Medical Summary | Summary of Care ---
Author Name Unknown Organization [facility] Address [address] [facility] [place] [address] Phone [phone] Care Team Providers Care Pigment Grinder Name Role Phone Rao Ochoa MD Primary Care Provider [phone] Reason for Visit * Reason Comments eRx-Medication Refill Encounter Details Date Type Department Care Team (Late st Contact Info) Description 12/16/2023 Refill [facility] [address] [place] [address] Rao Ochoa MD [address] [place] [address] Allergies Active Allergy Reactions Criticality Noted Date Comments Other Allergy (See Comments) Anaphylaxis High 06/21/2018 Bee stings- swelling documented as of this encounter (statuses as of 12/18/2023) Medications Medication Sig Dispensed Refills Start Date [...] as of this encounter (statuses as of 12/18/2023) Active Problems Problem Noted Date Diagnosed Date [...] as of this encounter (statuses as of 12/18/2023) Resolved Problems Problem Noted Date Diagnosed Date Resolved Date History of alcohol abuse 05/22/2023 Alcohol dependence, uncomplicated 01/17/2023 05/22/2023 Avascular necrosis of bone of hip 05/10/2022 05/22/2023 Chronic alcohol abuse 06/17/20212023 Facial swelling 06/09/2017 08/07/2019 Urticaria 06/09/2017 08/07/2019 Intestinal obstruction 05/09/201203/02 CLASSICAL MIGRAINE WITHOU ME NTION OF INTRACTABLE MIGRAINE 11/29/2001 08/07/2019 Undiagnosed cardiac murmurs 11/29/2001 03/02/2017 Overview: Not [place] on 11/29/01 documented as of this encounter (statuses as of 12/18/2023) Immunizations Name Administration Dates Next Due HEP A - Hepatitis A (Adult > 18 yrs) 06/06/2020 Pneumococcal Conjugate Vacci ne, 20-valent ([id number]) 06/24/2022 Seasonal Influenza Virus Vac cine, Unspecified [...] encounter Miscellaneous Notes * Telephone Encounter - Daljit Atkinson - [...] forwarding?yes Pharmacy: [id number] [place] Pending Prescriptions: Disp Refills rifAXIMin 550 MG [...] in Results Review. Patient Phone Numbers mobile [phone] Labs: Lab Results Component Value Date/Time CREAT [...] 12/19/2023 3:40 PM EDT Office Visit Gastroenterology, [facility] [address] [place] [address] Ki Huang MD [address] [place] [address] 01/17/2024 3:40 PM EDT Office Visit Neurology [facility] [address] [facility] [place] [address] Britni De La Cruz MD [address] [facility] [place] [address] Scheduled Procedures Name Priority Associated Diagnoses Date/Ti [...] filedocumented as of this encounter Care Teams Pigment Grinder Relationship Specialty Start Date End Date Rao Ochoa MD [address] [place] [address] PCP - General Internal Medicine 10/11/23 documented as of this encounter
--- OUTSIDE RECORDS SUMMARY | 2024-04-20 03:20 | External Medical Summary | Summary of Care ---
Author Name Unknown Organization [facility] Address [address] [place] [facility] [place] [place] [address] Phone [phone] Care Team Providers Care Roustabout Crew Leader Name Role Phone Georgia Ochoa MD Primary Care Provider [phone] Reason for Visit * Reason Comments eRx-Medication Refill Encounter Details Date Type Department Care Team (Late st Contact Info) Description 12/01/2023 Refill [facility] [address] [place] [address] Georgia Ochoa MD [address] [place] [address] Hyperammonemia (HCC) Allergies Active Allergy Reactions Criticality Noted Date Comments Other Allergy (See Comments) Anaphylaxis High 06/21/2018 Bee stings- swelling documented as of this encounter (statuses as of 12/05/2023) Medications Medication Sig Dispensed Refills Start Date [...] Emergency room. 2 Each 1 4 Active rifAXIMin 550 MG Oral Tablet (Xifaxan) take 1 tablet by mouth IN THE MORNING then take 1 tablet by mouth BEFORE BEDTIME 60 Tablet 4 Active Furosemide 20 MG Oral Tablet [...] 30 mL before bedtime. 946 mL 4 12/05/19 24 Discontinued Hospital, Clinic, or Other Facility Administered Medication Ordered Dose Route Frequency Start Date End Date Status albuterol sulfate (PROVENTIL) (2.5 MG/3ML) 0.083% inhalation solution 2.5 mgIndications:SOB (shortness of breath) 2.5 mg NEBULIZER Q4H PRN 05/10/2018 Act guzman documented as of this encounter (statuses as of 12/05/2023) Active Problems Problem Noted Date Diagnosed Date [...] as of this encounter (statuses as of 12/05/2023) Resolved Problems Problem Noted Date Diagnosed Date Resolved Date History of alcohol abuse 05/22/2023 Alcohol dependence, uncomplicated 01/17/2023 05/22/2023 Avascular necrosis of bone of hip 05/10/2022 05/22/2023 Chronic alcohol abuse 06/17/20212023 Facial swelling 06/09/2017 08/07/2019 Urticaria 06/09/2017 08/07/2019 Intestinal obstruction 05/09/201203/02 CLASSICAL MIGRAINE WITHOU ME NTION OF INTRACTABLE MIGRAINE 11/29/2001 08/07/2019 Undiagnosed cardiac murmurs 11/29/2001 03/02/2017 Overview: Not [place] on 11/29/01 documented as of this encounter (statuses as of 12/05/2023) Immunizations Name Administration Dates Next Due HEP A - Hepatitis A (Adult > 18 yrs) 06/06/2020 Pneumococcal Conjugate Vacci ne, 20-valent ([id number]) 06/24/2022 Seasonal Influenza Virus Vac cine, Unspecified [...] Telephone Encounter - Georgia Ochoa MD - 12/05/2023 10:57 AM EDTSigned Prescriptions: Disp Refills Lactulose 10 GM/15ML Oral Solution (Constu*946 mL 0 Sig: Take 30 mL by mouth in the morning and 30 mL at noon and 30 mL in the evening and 30 mL before bedtime. Authorizing Provider: GEORGIA OCHOA * Telephone Encounter - Tata Lopez LPN - 12/05/2023 10:10 AM EDTPending Prescriptions: Disp Refills Lactulose 10 GM/15ML Oral Solution [Pharma*946 mL 0 Sig: Take 30 mL by mouth in the morning and 30 mL at noon and 30 mL in the evening and 30 mL before bedtime. * Telephone Encounter - Tata Lopez LPN - 12/05/2023 10:10 AM EDTPending Prescriptions: Disp Refills Lactulose 10 GM/15ML Oral Solution (Const*946 mL 0 Sig: Take 30 mL by mouth in the morning and 30 mL at noon and 30 mL in the evening and 30 mL before bedtime. * Telephone Encounter - Trace, [employer] - 12/03/2023 3:42 PM EDT Pending Prescriptions: Disp Refills Lactulose 10 GM/15ML Oral Solution [Pharma*946 mL 0 Sig: Take 30 mL by mouth in the morning and 30 mL at noon and 30 mL in the evening and 30 mL before bedtime. * Telephone Encounter - Daljit Atkinson - 12/01/2023 7:12 PM EDTPending Prescriptions: Disp Refills Lactulose 10 GM/15ML Oral Solution [Pharma*946 mL 0 Sig: Take 30 mL by mouth in the morning and 30 mL at noon and 30 mL in the evening and 30 mL before bedtime. * Telephone Encounter - Monique Kamara, break off worker - 12/01/2023 4:28 PM EDT Pt is almost out of rx. Did you pend patient's preferred pharmacy and medication before forwarding?yes Pharmacy: [id number] [facility] Pending Prescriptions: Disp Refills Lactulose 10 [...] appointment Last date the medication was ordered: 10/16/2023 Is this request for a controlled substance?No [...] 12/28/2023 3:40 PM EDT Office Visit Neurology [facility] [place] [address] [place] [address] Britni De La Cruz MD [address] [place] [address] Scheduled Procedures Name Priority Associated Diagnoses Date/Ti [...] metabolism documented in this encounter Care Teams Roustabout Crew Leader Relationship Specialty Start Date End Date Georgia Ochoa MD [address] [place] [address] PCP - General Internal Medicine 10/11/23 documented as of this encounter
--- OUTSIDE RECORDS SUMMARY | 2024-04-20 03:20 | External Medical Summary | Summary of Care ---
Author Name Unknown Organization [facility] Address [address] [place] [facility] [place] [address] Phone [phone] Care Team Providers Care Flour Mixer Name Role Phone Rao Ochoa MD Primary Care Provider [phone] Reason for Visit * Reason Comments Outpatient Testing Encounter Details Date Type Department Care Team (Late st Contact Info) Description 11/24/2023 2:00 PM EDT Laboratory Laboratory, [place] [address] [place] [address] [place], [facility] [address] [place] [address] Alcoholic cirrhosis of liver with [...] Undiagnosed cardiac murmurs 11/29/2001 03/02/2017 Overview: Not [place] on 11/29/01 documented as of this encounter (statuses as of 11/24/2023) Immunizations Name Administration Dates Next Due HEP A - Hepatitis A (Adult > 18 yrs) 06/06/2020 Pneumococcal Conjugate Vacci ne, 20-valent ([id number]) 06/24/2022 Seasonal Influenza Virus Vac cine, Unspecified [...] Description 11/30/2023 3:00 PM EDT Office Visit [facility] [address] [place] [id number] Toby Paz MD [address] [place] [address] 12/28/2023 3:40 PM EDT Office Visit Neurology [facility] [address] [facility] [place] [address] Britni De La Cruz MD [address] [facility] [place] [address] Pending Results Name Type Priority Associated Diagnoses [...] sensation documented in this encounter Care Teams Flour Mixer Relationship Specialty Start Date End Date Rao Ochoa MD [address] [place] [facility] [place] [address] PCP - General Internal Medicine 10/11/23 documented as of this encounter
--- OUTSIDE RECORDS SUMMARY | 2024-04-20 03:20 | External Medical Summary | Summary of Care ---
Author Name Unknown Organization [facility] Address [address] [facility] [place] [address] Phone [phone] Care Team Providers Care Event Coordinator Name Role Phone Rao Ochoa MD Primary Care Provider [phone] Reason for Visit * Reason Onset Date Comments Advice 11/25/2023 Encounter Details Date Type Department Care Team (Late st Contact Info) Description 11/25/2023 Telephone Gastroenterology, [facility] [address] [place] [address] Alen Garcia, [address] [place] [address] Advice Allergies Active Allergy Reactions Criticality Noted [...] due to liver condition 15 Tablet 11/02/2023 4 Discontinue d(Refill) Hospital, Clinic, or Other [...] Undiagnosed cardiac murmurs 11/29/2001 03/02/2017 Overview: Not [place] on 11/29/01 documented as of this encounter (statuses as of 12/01/2023) Immunizations Name Administration Dates Next Due HEP A - Hepatitis A (Adult > 18 yrs) 06/06/2020 Pneumococcal Conjugate Vacci ne, 20-valent ([id number]) 06/24/2022 Seasonal Influenza Virus Vac cine, Unspecified [...] Telephone Encounter - Lesly Turner CMA - 12/01/2023 9:12 AM EDT SHIPPER sent My G message in another encounter. Pt read message. * Telephone Encounter - Alen Garcia DO [...] State [place] [address] [place] [address] Britni De La Cruz MD [address] [place] [address] Scheduled Procedures Name Priority Associated Diagnoses Date/Ti me COLONOSCOPY FLEXIBLE PROXIMAL DIAGNOSTIC Recall History of colon polyps Health Maintenance Due Date Last Done Comments Cologuard 2009 Fecal Occult Blood Test 2009 Sigmoidoscopy 2009 COVID-19 Vaccine (2022- season) 2022 Influenza Vaccine (FLU shot) (#1) [...] filedocumented as of this encounter Care Teams Event Coordinator Relationship Specialty Start Date End Date Rao Ochoa MD [address] [place] [address] PCP - General Internal Medicine 10/11/23 documented as of this encounter
--- OUTSIDE RECORDS SUMMARY | 2024-04-20 03:20 | External Medical Summary | Summary of Care ---
Author Name Unknown Organization [facility] Address [address] [place] [address] Phone [phone] Care Team Providers Care Long Line Teamster Name Role Phone Rao Ochoa MD Primary Care Provider [phone] Reason for Visit * Reason Comments Outpatient Testing Encounter Details Date Type Department Care Team (Late st Contact Info) Description 11/24/2023 2:00 PM EDT Laboratory Laboratory, [place] [address] [place] [address] [place], [facility] [address] [place] [address] Alcoholic cirrhosis of liver with [...] yrs) 06/06/2020 Pneumococcal Conjugate Vacci ne, 20-valent ([id number]) 06/24/2022 Seasonal Influenza Virus Vac cine, Unspecified [...] Visit [facility] [address] [place] [address] Toby Paz MD [address] [place] [address] 12/28/2023 3:40 PM EDT Office [facility] [address] [place] [address] Britni De La Cruz MD [address] [place] [address] Pending Results Name Type Priority Associated Diagnoses [...] sensation documented in this encounter Care Teams Long Line Teamster Relationship Specialty Start Date End Date Rao Ochoa MD [address] [place] [address] PCP - General Internal Medicine 10/11/23 documented as of this encounter
[2024-04-20 03:21] LABS: Appearance Urine Clear (Clear); Bacteria Urine Automated None Seen (None Seen); Bilirubin Urine 1+ (Negative); Blood Urine Trace (Negative); Cast Urine Automated 0-2 /lpf (0-2); Color Urine Dark Yellow; Epithelial Cell Urine Auto 0-2 /hpf (0-2); Glucose Urine UA Negative (Negative); Ketones Urine Trace (Negative); Leukocyte Esterase Urine Negative (Negative); Mucus Urine Present (None Prsent); Nitrite Urine Negative (Negative); Protein Urine 1+ (Negative); Specific Gravity Urine 1.025 (1.000-1.030); Sperm Urine Present (None Prsent); Urobilinogen Urine Positive (Negative); WBC Urine Automated 0-5 /hpf (0-5); pH Urine 5.5 (4.5-7.5)
--- OUTSIDE RECORDS SUMMARY | 2024-04-20 03:21 | External Medical Summary ---
Author Name Unknown Address Unknown Organization [id number]:[facility] [address] [place] [address] Laboratory Report Ordering Provider Test Date Status LIZA LAROSE 11/24/2023 13:48:45 Final Warfarin Therapy
INR: 2 .0-3.0 conventional anticoagulation
INR: 2.5- 3.5 high intensity anticoagulation Observation Date Value Abnormality Reference (Units ) Status PT 11/24/2023 13:48:45 17.6 Above high normal 11 .6-15.2 (seconds) Final INR 11/24/2023 13:48:45 1.4 Above high normal 0. 8-1.2 Final Performing Location [facility] [address] [place] [address]
--- OUTSIDE RECORDS SUMMARY | 2024-04-20 03:21 | External Medical Summary ---
Author Name Unknown Address Unknown Organization K01:LAB[facility]ATORY [facility] - [address] [place] [address] Laboratory Report Ordering Provider Test Date Status LIZA LAROSE 11/24/2023 13:48:45 Final Observation Date Value Abnormality Reference (Units ) Status Ammonia 11/24/2023 13:48:45 124 Above upper panic limits 11-35 (umol/L) Final Performing Location [facility] - [address] [place] [address]
--- OUTSIDE RECORDS SUMMARY | 2024-04-20 03:21 | External Medical Summary | Summary of Care ---
Author Name Unknown Organization [facility] Address [address] [facility] [place] [address] Phone [phone] Care Team Providers Care Hide Dyer Name Role Phone Rao Ochoa MD Primary Care Provider [phone] Encounter Details Date Type Department Care Team (Late st Contact Info) Description 11/24/2023 Population Health External Data Unspecified Department Allergies [...] 06/29/2016 Seasonal allergic rhinitis due to pollen 03/29/2 017 Family history of ischemic heart disease [...] Undiagnosed cardiac murmurs 11/29/2001 03/02/2017 Overview: Not [place] on 11/29/01 documented as of this encounter (statuses as of 11/24/2023) Immunizations Name Administration Dates Next Due HEP A - Hepatitis A (Adult > 18 yrs) 06/06/2020 Pneumococcal Conjugate Vacci ne, 20-valent ([id number]) 06/24/2022 Seasonal Influenza Virus Vac cine, Unspecified [...] Description 11/24/2023 2:00 PM EDT Laboratory Laboratory, [place] [address] [place] [address] [facility] [address] [place] [address] 11/30/2023 3:00 PM EDT Office Visit [facility] [place] [address] [place] [address] Toby Paz MD [address] [place] [address] 12/28/2023 3:40 PM EDT Office Visit Neurology [facility] [address] [place] [address] Britni De La Cruz MD [address] [place] [address] Scheduled Procedures Name Priority Associated Diagnoses Date/Ti [...] filedocumented as of this encounter Care Teams Hide Dyer Relationship Specialty Start Date End Date Rao Ochoa MD [address] [place] [address] PCP - General Internal Medicine 10/11/23 documented as of this encounter
--- OUTSIDE RECORDS SUMMARY | 2024-04-20 03:21 | External Medical Summary ---
Author Name Unknown Address Unknown Organization : Laboratory Report Ordering Provider Test Date Status YAIR JEFFRIES 11/24/2023 13:48:45 Final Observation Date Value Abnormality Reference (Units ) Status PETH 16:0/18:1 (POPETH) 11/24/2023 13:48:45 39 Above high normal <20 (ng/mL) Final PETH 16:0/18:2 (PLPETH) 11/24/2023 13:48:45 34 Above high normal <20 (ng/mL) Final PETH COMMENTS 11/24/2023 13:48:45 SEE BELOW Final See LDT Notes
Notes and Comments
This drug testing is for medical treatment only.
Analysis was performed as non-forensic testing and
these results should be used only by healthcare
providers to render diagnosis or treatment, or to
monitor progress of medical conditions.
LDT Notes:
These tests were developed and their analytical
performance characteristics have been determined
by [employer]. They have not been cleared
or approved by the FDA. These assays have been
validated pursuant to the CLIA regulations and are
used for clinical purposes.
Healthcare Providers needing Interpretation
assistance, please contact us at [phone]
( )M-F, 8am to 10pm EST

Test Performed at:
[facility]
[address] [facility]
[place] [address]
Iván Winkler M.D., Ph.D.,Director of Laboratories Performing Location
--- OUTSIDE RECORDS SUMMARY | 2024-04-20 03:21 | External Medical Summary ---
Author Name Unknown Address Unknown Organization : Laboratory Report Ordering Provider Test Date Status YAIR JEFFRIES 11/24/2023 13:48:45 Final Observation Date Value Abnormality Reference (Units ) Status Ethyl glucuronide [Mass/volume] in Urine 11/24/2023 13:48:45 NEGATIVE <500 (ng/mL) Final Ethyl sulfate [Mass/volume] in Urine 11/24/2023 13:48:45 NEGATIVE <100 (ng/mL) Final This drug testing is for med ical treatment only.
Analysis was performed as non-forensic testing and
these results should be used only by healthcare
providers to render diagnosis or treatment, or to
monitor progress of medical conditions.
For assistance with interpreting these drug results,
please contact a [employer] [facility]
Specialist: [phone] ( ), M-F,
8am-6pm EST.
For additional information, please refer to
http://education.[employer]/faq/KUP601
(This link is being provided for informational/
educational purposes only.)
This test was developed and its analytical performance
characteristics have been determined by [employer] [place], [place]. It has
not been cleared or approved by the U.S. Food and Drug
Administration. This assay has been validated pursuant
to the CLIA regulations and is used for clinical
purposes.

Test Performed at:
[facility] [place]
[address] [facility] [place] [place] [address]
Iván Winkler M.D., Ph.D.,Director of Laboratories Performing Location
--- OUTSIDE RECORDS SUMMARY | 2024-04-20 03:21 | External Medical Summary ---
Author Name Unknown Address Unknown Organization K01:[facility]ATORY [facility] [place] - [address] [place] [id number] Laboratory Report Ordering Provider Test Date Status LIZA LAROSE 11/24/2023 13:48:45 Final Observation Date Value Abnormality Reference (Units) Status Bacteria identified in Specimen by Culture 11/24/2023 13:48:45 No significant growth Final Test: Culture, Urine, Quanti tative
Specimen Source: Urine, Clean Catch
Specimen Type: Urine
Specimen Date: 11/24/2023 1348
Result Date: 11/25/2023 1659
Result Status: Final result
Resulting Lab: [facility]
[address]
[place] [id number]

CULTURE

No significant growth

null Performing Location [facility]ATORY [facility] - [address] [facility] [address]
--- NOTE | 2024-04-20 04:16 | CT Scan Report ---
EXAM: CT head/brain wo con CLINICAL HISTORY: Altered ms. TECHNIQUE: An axial non-contrast CT scan of the brain was performed from the skull base to the high parietal region. One of the following dose reduction techniques was utilized for this exam: Automated exposure control, adjustment of the mA and/or kV according to patient size, use of iterative reconstruction. CTDI: 63.7 mGy, DLP: 1542.65 mGy-cm. COMPARISON: CT dated 09/30/2023. FINDINGS: Brain Parenchyma: Multiple subcortical and periventricular white matter hypodensities likely represent chronic microvascular ischemic changes. A faint small hypodense area was seen in the left occipital lobe, unchanged from the prior study. Likely due to chronic ischemic insult. Normal attenuation of the cerebral hemispheres, cerebellum, and brainstem. No evidence of acute infarct, hemorrhage, or mass effect. No abnormal areas of hyperattenuation. Ventricular System: A capacious ventricular system, denoting atrophic changes. No evidence of hydrocephalus. Subarachnoid Spaces: Capacious CSF spaces denote atrophic changes. No evidence of subarachnoid hemorrhage or extra-axial fluid collections. Cerebellum and Brainstem: Normal size and attenuation. No masses, lesions, or areas of abnormal attenuation. Orbits: Normal appearance of the globes, optic nerves, and extraocular muscles. No evidence of orbital masses or abnormal attenuation. Sinuses: Clear paranasal sinuses. No evidence of sinusitis or mucosal thickening. Mastoid Air Cells: Clear mastoid air cells. No evidence of mastoiditis. Skull and Meninges: Normal skull morphology. IMPRESSION: 1. No evidence of acute intracranial hemorrhage. 2. Mild chronic microvascular ischemic changes. 3. Mild senile brain atrophy changes. 4. Recommend MRI brain with diffusion sequences to rule out acute ischemic insult if clinically warranted. 5. No significant interval changes compared to the prior study, dated 09/30/2023. Electronically signed by Se Coon 04-20-2024 04:15 AM
--- NOTE | 2024-04-20 04:51 | CT Scan Report ---
EXAM: CT chest diagnostic w con CLINICAL HISTORY: eval left axilla and L chest pain to palp 93 ml opti 320 PW TECHNIQUE: Contiguous axial CT images of the chest were acquired with administration of intravenous contrast. Coronal and sagittal reconstructions were obtained. 93 ml opti 320 intravenous contrast was administered. One of the following dose reduction techniques were utilized for this exam: Automated exposure control, adjustment of the mA and/or kV according to patient size, use of iterative reconstruction. DLP 1542.65 COMPARISON: CT angio chest 11/16/2023. FINDINGS: Lungs: The lung parenchyma is clear with no evidence of consolidation, collapse, or focal lesions. No pulmonary nodules or masses are identified. No evidence of interstitial lung disease or emphysema. No pleural effusion or pleural thickening. Mediastinum: The mediastinum is normal in size and contour. No mediastinal mass or abnormal lymphadenopathy. The heart size is within normal limits. Atherosclerotic changes of the aortic arch. Hilar Structures: The hilar structures appear normal without enlargement or abnormality. Trachea and Main Bronchi: The trachea and main bronchi are patent without evidence of obstruction or abnormality. Chest Wall: Bilateral gynecomastia. Few prominent left axillary lymph nodes, the largest measured about 6 mm in short axis, likely reactionary. No evidence of collection or abscess. Upper Abdomen: The liver showed heterogeneous density with serrated outlines suggestive of cirrhotic changes. Multiple hypodense hepatic cysts are noted the largest measured about 1.1x1 cm. The spleen is enlarged, measuring about 15.5 cm maximum with spots of calcified granulomas. A few paraesophageal varicosities are noted Evidence of cholecystectomy. Please correlate with the prior surgical history. Visualized portions of the adrenal glands, and kidneys are unremarkable. Bones: Visualized osseous structures are normal, no evidence of fracture or lytic/sclerotic lesions. IMPRESSION: 1. Hepatic cirrhotic changes. Multiple hepatic cysts, the largest measuring 1.1 x 1 cm. Unchanged. 2. Splenomegaly with calcified granulomas. Unchanged. 3. Evidence of paraesophageal varices. Unchanged. 4. Bilateral gynecomastia. Unchanged. 5. A few prominent left axillary lymph nodes, likely reactionary. No evidence of collection or abscess. Unchanged. 6. No significant interval change compared to prior study, dated on 11/16/2023. Electronically signed by Se Coon 04-20-2024 04:49 AM
[2024-04-20] MEDS ORDERED: NITROGLYCERIN SL 0.4 MG/TAB TAB SL PRN (07:36)
--- OUTSIDE RECORDS SUMMARY | 2024-04-20 07:39 | External Medical Summary | Summary of Care ---
Author Name Unknown Organization [facility] Address [address] [facility] [place] [address] Phone [phone] Care Team Providers Care Commodities Broker Name Role Phone Rao Ochoa MD Primary Care Provider [phone] Reason for Visit * Reason Comments eRx-Medication Refill Encounter Details Date Type Department Care Team (Late st Contact Info) Description 04/19/[address] [facility] [address] [place] [id number] Kiley Singh MD [address] [facility] [place], [place] [id number] Hypomagnesemia* Allergies Active Allergy Reactions Criticality Noted Date Comments Other Allergy (See Comments) Anaphylaxis High 06/21/2018 Bee stings- swelling documented as of this encounter (statuses as of 04/19/2024) Medications Iron (Ferrous Sulfate) 325 (65 Fe) MG Oral Tablet Take by mouth. Active Diclofenac Sodium 1 % External Gel (Voltaren) Apply topically to affected area 2 times a day. Apply to area lateral to left hip 150 g 5 03/29/20 23 Active Pantoprazole Sodium 40 MG [...] 24 Active Lactulose 10 GM/15ML Oral Solution (Constulose)Indic [...] 25 Active Gabapentin 100 MG Oral Capsule (Neurontin)Indica tions:Complaint of paresthesia take 1 capsule by mouth every morning and AT NOON and BEFORE BEDTIME 90 Capsule 5 04/11/19 25 Active Magnesium Oxide -Mg Supplement 400 (240 Mg) MG Oral Tablet (Mag-Ox)Indicatio ns:Hypomagnesemia take 1 tablet by mouth IN THE MORNING AND BEFORE BEDTIME 180 Tablet 04/19/19 25 Active Magnesium Oxide -Mg Supplement 400 (240 Mg) MG Oral Tablet (Mag-Ox) take 1 tablet by mouth IN THE MORNING AND BEFORE BEDTIME 180 Tablet 1 03/29/20 23 025 Discontinued Hospital, Clinic, or Other Facility Administered Medication Ordered Dose Route Frequency Start Date End Date Status albuterol sulfate (PROVENTIL) (2.5 MG/3ML) 0.083% inhalation solution 2.5 mgIndications:SOB (shortness of breath) 2.5 mg NEBULIZER Q4H PRN 05/10/2018 Act guzman documented as of this encounter (statuses as of 04/19/2024) Active Problems Problem Noted Date Diagnosed Date [...] as of this encounter (statuses as of 04/19/2024) Resolved Problems Problem Noted Date Diagnosed Date [...] cardiac murmurs 11/29/2001 03/02/2017 Overview (11/29/2001): Not [place] on 11/29/01 documented as of this encounter (statuses as of 04/19/2024) Immunizations Name Administration Dates Next Due HEP A - Hepatitis A (Adult > 18 yrs) 06/06/2020 Pneumococcal Conjugate Vacci ne, 20-valent ([id number]) 06/24/2022 Seasonal Influenza Virus Vac c[place], Unspecified [...] Job Start Date Job End Date 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 Answer Date of Assessment Author Yes 08/23/2021 12:08 PM EDT documented as of this encounter Miscellaneous Notes * Telephone Encounter - Kiley Singh MD - 04/19/2024 5:10 PM ESTSigned Prescriptions: Disp Refills Magnesium Oxide -Mg Supplement 400 (240 Mg*180 Ta*0 Sig: take 1 tablet by mouth IN THE MORNING AND BEFORE BEDTIMEAuthorizing Provider: KILEY SINGH * Telephone Encounter - Kiley Singh MD - 04/19/2024 5:09 PM EST Sent - but I have not been seeing lately and no recent mag level. Ordered and can be done with [email or web address]. * Telephone Encounter - Diamante Paredes, electrical electronics engineers - 04/19/2024 3:07 PM EST Did you pend patient's preferred pharmacy and medication before forwarding?yes [id number] [id number] Pending Prescriptions: Disp Refills Magnesium Oxide -Mg Supplement 400 (240 M*180 Ta*0 Sig: take 1 tablet by mouth IN THE MORNING AND BEFORE BEDTIME Last Visit: 03/08/2024 (in office), Visit date not found (telemedicine) Next Visit: Visit date not found If no future appointments scheduled, and last appointment is greater than a year ago, please schedule patient for a follow-up appointment Last date the medication was ordered: 03-29-23 Is this request for a controlled substance?No [...] in Results Review. Patient Phone Numbers mobile [phone] Labs: Lab Results Component Value Date/Time CREAT [...] 04/23/2024 9:00 AM EST Office Visit Gastroenterology, [facility] [address] [place] [address] Keyanna Gordon CRNP [address] [facility] [place] [address] 05/29/2024 3:40 PM EST Office Visit Neurology [facility] [address] [place] [address] Britni De La Cruz MD [address] [place] [address] 09/18/2024 3:40 PM EDT Office Visit Gastroenterology, [facility] [address] [facility] [place] [address] Ki Huang MD [address] [facility] [place] [address] Scheduled Orders Name Type Priority Associated Diagnoses Orde r Schedule MAGNESIUM Lab Routine Hypomagnesemia Expected: 04/19/2024 (Approximate), Expires: 04/19/2025 Scheduled Procedures Name Priority Associated Diagnoses Date/Ti [...] as of this encounter Visit Diagnoses Diagnosis Hypomagnesemia- Primary Disorders of magnesium metabolism documented in this encounter Care Teams Commodities Broker Relationship Specialty Start Date End Date Rao Ochoa MD [address] [place] [address] [place] [address] PCP - General Internal Medicine 02/05/24 documented as of this encounter
[2024-04-20] MEDS: SODIUM CHLORIDE 0.9% 1,000 ML IV SCH (07:54)
[2024-04-20] MEDS: LACTULOSE SYRUP 30 GM/45 ML UDP PO STA (08:00)
[2024-04-20] MEDS: LACTULOSE SYRUP 30 GM/45 ML UDP PO SCH (08:00)
[2024-04-20] MEDS: ATORVASTATIN 20 MG TAB PO SCH (08:01)
[2024-04-20] MEDS: DULoxetine HCL 30 MG CAP PO SCH (08:01)
[2024-04-20] MEDS: PANTOprazole 40 MG TAB PO SCH (08:02)
[2024-04-20] MEDS: GABAPENTIN 100 MG CAP PO SCH (08:03)
[2024-04-20] MEDS: rifAXIMin 550 MG TABLET PO SCH (08:03)
[2024-04-20] MEDS: MAGNESIUM OXIDE 400 MG TAB PO SCH (08:03)
--- NOTE | 2024-04-20 08:22 | History & Physical Report ---
Date of Service April 20, 2024 Assessment & Plan (1) Hepatic encephalopathy: Plan: 58-year-old male with past medical history significant for dyslipidemia, hepatic encephalopathy, esophageal varices without bleeding, hypertension, history of AZ, internal hemorrhoids, history of TIA, abdominal aortic aneurysm, cirrhosis of liver, GERD, avascular necrosis of bone of left hip, degenerative disc disease, thrombocytopenia, anemia of chronic disease, iron deficiency anemia due to chronic blood loss, hypoproliferative anemia, history of angioedema, history of SBO, depression, status post left hip replacement comes from home because of complaining of pain in the left axillary region and flank region. Imaging studies were okay and currently pain is resolved. Patient seemed somewhat confused in the ER. His ammonia level is 153. Currently resting comfortable and hemodynamically stable. Currently alert and oriented x 3. Says he is taking lactulose regularly. Says he has 3 bowel movements daily. Denies any fevers. Denies abdominal pain. Micturating okay. Denies chest pain or shortness of breath. Has some nausea. Currently denies any headache. No runny nose or sore throat. No cough. States he has some ambulatory dysfunction from his hip pain. Hepatic encephalopathy CT head okay Ammonia level 152 Lactulose 30 g every 6 hours Continue home rifaximin Repeat ammonia levels Gentle fluids GI consult Telemetry Liver cirrhosis Holding Lasix and spironolactone On Lactulose and Xifaxan Getting gentle fluids Follow liver ultrasound for ascites Monitor for volume overload Per previous admission following with [facility] GI and waiting for liver transplant History of esophageal varices Per EGD 10/15/2023. Grade 1 esophageal varices. Portal hypertensive gastropathy. And was recommended Coreg 6.25 mg p.o. daily to help with reduction portal pressure Left flank and axilla pain CT chest showed prominent left axillary lymph nodes likely reactive reactionary. No evidence of collection or abscess. Unchanged EKG no acute findings. Troponin unremarkable Currently pain resolved Will follow serial enzymes Chronic thrombocytopenia Platelets 40 Mostly from liver cirrhosis Will follow labs History of anemia Hemoglobin 14.6 Need to confirm with patient if he still on iron pills Hyperlipidemia Statin Depression Duloxetine History of left total hip replacement, degenerative disc disease Ambulatory dysfunction On gabapentin. To hold if patient becomes sleepy PT OT when stable GERD On Protonix DVT prophylaxis SCDs as patient has thrombocytopenia Disposition Telemetry Full code Admission and Anticipated Discharge Date Admission Date: April 20, 2024 History of Present Illness Chief Complaint: Hepatic encephalopathy Primary Care Provider: Toby Paz MD 58-year-old male with past medical history significant for dyslipidemia, hepatic encephalopathy, esophageal varices without bleeding, hypertension, history of AZ, internal hemorrhoids, history of TIA, abdominal aortic aneurysm, cirrhosis of liver, GERD, avascular necrosis of bone of left hip, degenerative disc disease, thrombocytopenia, anemia of chronic disease, iron deficiency anemia due to chronic blood loss, hypoproliferative anemia, history of angioedema, history of SBO, depression, status post left hip replacement comes from home because of complaining of pain in the left axillary region and flank region. Imaging studies were okay and currently pain is resolved. Patient seemed somewhat confused in the ER. His ammonia level is 153. Currently resting comfortable and hemodynamically stable. Currently alert and oriented x 3. Says he is taking lactulose regularly. Says he has 3 bowel movements daily. Denies any fevers. Denies abdominal pain. Micturating okay. Denies chest pain or shortness of breath. Has some nausea. Currently denies any headache. No runny nose or sore throat. No cough. States he has some ambulatory dysfunction from his hip pain. Past medical history. As mentioned above Past surgical history. Colonoscopy. EGD. EGD with endoscopic ultrasound. Laparoscopic cholecystectomy. Reduction bowel obstruction. Removal of ruptured appendix. Status post left hip replacement Social history. Quit smoking 2015. Smokes 0.1 pack a day for 20 years. No alcohol use currently. History of 12 pack on the weekends no alcohol since December 2021 as per epic. No drug use. Family history. Father has dementia. AZ in 40s. Heart failure. Stroke. Mother has parkinsonism. Allergies Allergy/AdvReac Type Severity Reaction Status Date / Time bee venom protein (honey bee) Allergy Severe Anaphylaxis--CARRIES Verified 11/16/23 17:24 AN EPIPEN Home Medications Medication Instructions Recorded Confirmed Type atorvastatin 20 mg tablet 20 mg PO DAILY 04/20/24 04/20/24 History duloxetine 30 mg capsule,delayed 30 mg PO DAILY 04/20/24 04/20/24 History release ferrous sulfate 325 mg (65 mg 325 mg PO DAILY 04/20/24 04/20/24 History iron) tablet furosemide 40 mg tablet 40 mg PO DAILY 04/20/24 04/20/24 History gabapentin 100 mg capsule 100 mg PO TID 04/20/24 04/20/24 History gabapentin 300 mg capsule 300 mg PO HS 04/20/24 04/20/24 History lactulose 10 gram/15 mL oral 30 ml PO QID 04/20/24 04/20/24 History solution lorazepam 0.5 mg tablet 0.5 mg PO DAILY PRN Anxiety 04/20/24 04/20/24 History magnesium oxide 400 mg (241.3 mg 400 mg PO BID 04/20/24 04/20/24 History magnesium) tablet pantoprazole 40 mg tablet,delayed 40 mg PO BID 04/20/24 04/20/24 History release (Protonix) rifaximin 550 mg tablet (Xifaxan) 550 mg PO BID 04/20/24 04/20/24 History spironolactone 25 mg tablet 25 mg PO DAILY 04/20/24 04/20/24 History trazodone 50 mg tablet 100 mg PO HS 04/20/24 04/20/24 History Past Med/Surg History Problem List (Updated 12/18/23 @ 00:07 by Roxie Morris) Chest discomfort Hepatic encephalopathy (Acute) Atypical chest pain (Acute) Encephalopathy, hepatic (Acute) Depression GERD (gastroesophageal reflux disease) Acute confusion (Acute) Hyperammonemia (Acute) Thrombocytopenia (Acute) Acute hepatic encephalopathy (Acute) History of total left hip replacement (Acute) Bilateral leg pain (Acute) Altered mental status (Acute) Confusion Avascular necrosis of femur Hip pain Ambulatory dysfunction (Acute) Hyperammonemia (Acute) Acute pain of left hip (Acute) Alcoholic cirrhosis Dilated aortic root Acute alteration in mental status (Acute) Thrombocytopenia (Acute) Bilateral arm weakness (Acute) Acute hepatic encephalopathy (Acute) H/O angioedema (Chronic) ongoing, follows with allergy Elevated LFTs (Acute) HTN (hypertension) (Chronic) Acid reflux Abnormal PFT Thrombocytopenia UTI (urinary tract infection) Cirrhosis of liver Cough Encounter for pre-operative examination RUQ pain Insomnia (Chronic) Intractable right upper quadrant abdominal pain (Acute) GERD (gastroesophageal reflux disease) (Chronic) Migraine (Chronic) Medical History History of ascites Acute alteration in mental status Nausea HLD (hyperlipidemia) Hypertension Hyperlipidemia Surgical History History of esophagogastroduodenoscopy (EGD) History of colonoscopy History of bowel resection 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 History of appendectomy History of tooth extraction Family History Father Hearing loss Hypertension Stroke Heart disease Other No pertinent family history in first degree relatives Denies family history of No family history of adverse response to anesthesia No family history of bleeding disorder Allergies Asthma Social History Smoking Status: Former smoker Tobacco Type: Cigarettes Cigarettes Per Day: 1-2; Second Hand Exposure: No; Do You Dip or Chew Tobacco: No; Hx Alcohol Use: No Hx Substance Use: No Preferred Language: Bur[place]ian Communication Ability: Effective Insulator Cutter And Former Required: No Beliefs That Will Affect Care: None marital status: Current Living Situation: Significant Other Current Living Situation Comment: LIVES WITH GIRLFRIEND 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 ENT- oropharynx clear Neck- supple, no JVD. Lungs- clear to auscultation no wheezing or crackles Heart- regular rhythm; no murmur, no gallop. Abdomen- normal bowel sounds, soft, nontender, no distension Extremities- no pretibial edema, no erythema seen Neuro- alert, oriented x 3; PERRL, no facial palsy; no dysarthria; moves extremities Results & Data Results & Data Vital Signs (Past 12 Hours) Vital Signs Temp Pulse Resp BP Pulse Ox Pulse Ox O2 Del Method 04/20/24 07:47 04/20/24 07:42 75 15 04/20/24 07:33 72 15 95 04/20/24 07:30 131/77 04/20/24 07:27 74 15 95 04/20/24 07:12 73 15 95 04/20/24 07:00 74 17 95 04/20/24 07:00 118/72 04/20/24 07:00 11804/20/24 07:00 118/72 04/20/24 07:00 118/72 04/20/24 07:00 118/72 04/20/24 06:51 73 15 95 04/20/24 06:42 87 23 97 04/20/24 06:31 158/95 H 04/20/24 06:31 158/95 H 04/20/24 06:30 79 19 95 04/20/24 06:27 82 17 95 04/20/24 06:12 77 18 95 04/20/24 06:00 72 18 127/83 96 04/20/24 04:48 70 18 144/77 H 96 04/20/24 04:18 78 04/20/24 03:42 73 18 145/81 H 96 04/20/24 02:00 78 16 146/87 H 97 04/20/24 01:00 74 22 140/84 98 04/20/24 00:17 78 04/19/24 23:22 37 C 93 H 18 133/84 96 Room Air O2 Del Method 04/20/24 07:47 Room Air 04/20/24 07:42 04/20/24 07:33 04/20/24 07:30 04/20/24 07:27 04/20/24 07:12 04/20/24 07:00 04/20/24 07:00 04/20/24 07:00 04/20/24 07:00 04/20/24 07:00 04/20/24 07:00 04/20/24 06:51 04/20/24 06:42 04/20/24 06:31 04/20/24 06:31 04/20/24 06:30 04/20/24 06:27 04/20/24 06:12 04/20/24 06:00 04/20/24 04:48 04/20/24 04:18 04/20/24 03:42 04/20/24 02:00 04/20/24 01:00 04/20/24 00:17 04/19/24 23:22 Diagnostic Findings Laboratory Results WBC 7.59 K/ul (4.8-10.8) 04/20/24 00:09 RBC 4.39 M/uL (4.70-6.10) L 04/20/24 00:09 Hgb 14.6 g/dl (14.0-18.0) 04/20/24 00:09 Hct 41.9 % (42.0-52.0) L 04/20/24 00:09 MCV 95.4 fL (80.0-100.0) 04/20/24 00:09 MCH 33.3 pg (25.0-34.0) 04/20/24 00:09 MCHC 34.8 g/dL (32.0-36.0) 04/20/24 00:09 RDW Std Deviation 55.9 fL (36.4-46.3) H 04/20/24 00:09 RDW Coeff of Fabiola 15.9 % (11.5-14.5) H 04/20/24 00:09 Plt Count 40 K/uL (130-400) L 04/20/24 00:09 MPV 11.6 fL (9.4-12.4) 04/20/24 00:09 Immature Gran % (Auto) 0.4 % 04/20/24 00:09 Neut % (Auto) 73.3 % 04/20/24 00:09 Lymph % (Auto) 13.0 % 04/20/24 00:09 Ceiba % (Auto) 8.7 % 04/20/24 00:09 Eos % (Auto) 4.3 % 04/20/24 00:09 Baso % (Auto) 0.3 % 04/20/24 00:09 Neut # (Auto) 5.56 K/uL (1.40-6.50) 04/20/24 00:09 Lymph # (Auto) 0.99 K/uL (1.20-3.40) L 04/20/24 00:09 Ceiba # (Auto) 0.66 K/uL (0.11-0.59) H 04/20/24 00:09 Eos # (Auto) 0.33 K/uL (0.00-0.50) 04/20/24 00:09 Baso # (Auto) 0.02 K/uL (0.00-0.20) 04/20/24 00:09 Immature Gran # (Auto) 0.03 K/uL (0.01-0.20) 04/20/24 00:09 PT 12.4 Seconds (9.0-12.0) H 04/20/24 00:09 INR 1.2 (0.9-1.1) H 04/20/24 00:09 Sodium 138 mmol/L (136-145) 04/20/24 00:09 Potassium 3.7 mmol/L (3.5-5.1) 04/20/24 00:09 Chloride 113 mmol/L (98-107) H 04/20/24 00:09 Carbon Dioxide 20 mmol/L (21-32) L 04/20/24 00:09 Anion Gap 5 (3-11) 04/20/24 00:09 BUN 14 mg/dl (6-23) 04/20/24 00:09 Creatinine 0.78 mg/dl (0.6-1.4) 04/20/24 00:09 Est Cr Clr Drug Dosing 112.2 ml/min 04/20/24 00:09 eGFR 102.73 04/20/24 00:09 BUN/Creatinine Ratio 17.9 (10-20) 04/20/24 00:09 Glucose 150 mg/dl (70-99(Fasting)) H 04/20/24 00:09 Calcium 8.3 mg/dl (8.6-10.3) L 04/20/24 00:09 Total Bilirubin 2.0 mg/dl (0.2-1.0) H 04/20/24 00:09 AST 93 U/L (13-39) H 04/20/24 00:09 ALT 49 U/L (7-52) 04/20/24 00:09 Alkaline Phosphatase 148 U/L (34-104) H 04/20/24 00:09 Ammonia 152.0 umol/L (18-72) H 04/20/24 01:29 Troponin I High Sens 10.0 pg/ml (0-20) 04/20/24 00:09 Total Protein 6.0 gm/dl (6.0-8.3) 04/20/24 00:09 Albumin 3.3 gm/dl (3.4-5.0) L 04/20/24 00:09 Globulin 2.7 gm/dl (2.5-4.0) 04/20/24 00:09 Albumin/Globulin Ratio 1.2 (0.9-2) 04/20/24 00:09 Lipase 51 U/L (11-82) 04/20/24 00:09 Urine Color Dark Yellow 04/20/24 02:21 Urine Appearance Clear (Clear) 04/20/24 02:21 Urine pH 5.5 (4.5-7.5) 04/20/24 02:21 Ur Specific Cornelia 1.025 (1.000-1.030) 04/20/24 02:21 Urine Protein 1+ (Negative) H 04/20/24 02:21 Urine Glucose (UA) Negative (Negative) 04/20/24 02:21 Urine Ketones Trace (Negative) H 04/20/24 02:21 Urine Blood Trace (Negative) H 04/20/24 02:21 Urine Nitrite Negative (Negative) 04/20/24 02:21 Urine Bilirubin 1+ (Negative) H 04/20/24 02:21 Urine Urobilinogen Positive (Negative) H 04/20/24 02:21 Ur Leukocyte Esterase Negative (Negative) 04/20/24 02:21 Urine WBC (Auto) 0-5 /hpf (0-5) 04/20/24 02:21 Urine RBC (Auto) 11-20 /hpf (0-2) H 04/20/24 02:21 U Hyaline Cast (Auto) 0-2 /lpf (0-2) 04/20/24 02:21 U Epithel Cells (Auto) 0-2 /hpf (0-2) 04/20/24 02:21 Urine Bacteria (Auto) None Seen (None Seen) 04/20/24 02:21 Urine Mucus Present (None Prsent) A 04/20/24 02:21 Urine Sperm Present (None Prsent) A 04/20/24 02:21 Impressions Chest X-Ray 04/19/24 23:30 EXAM: XR chest 1V portable CLINICAL HISTORY: CHEST PAIN SDM TECHNIQUE: Radiograph of chest was acquired. COMPARISON: 16 November 2023. FINDINGS: Lungs are clear and well-expanded with no pulmonary infiltrate. No pleural effusion is detected. The cardiomediastinal silhouette is within normal limits. No acute osseous abnormality. Rest of the finidngs are unchanged. IMPRESSION: 1. No acute abnormality detected. No interval new finding detected. Electronically signed by Martin Wilkinson 04-20-2024 02:[address] 04/20/24 02:14 EXAM: CT chest diagnostic w con CLINICAL HISTORY: eval left axilla and L chest pain to palp 93 ml opti 320 PW TECHNIQUE: Contiguous axial CT images of the chest were acquired with administration of intravenous contrast. Coronal and sagittal reconstructions were obtained. 93 ml opti 320 intravenous contrast was administered. One of the following dose reduction techniques were utilized for this exam: Automated exposure control, adjustment of the mA and/or kV according to patient size, use of iterative reconstruction. DLP 1542.65 COMPARISON: CT angio chest 11/16/2023. FINDINGS: Lungs: The lung parenchyma is clear with no evidence of consolidation, collapse, or focal lesions. No pulmonary nodules or masses are identified. No evidence of interstitial lung disease or emphysema. No pleural effusion or pleural thickening. Mediastinum: The mediastinum is normal in size and contour. No mediastinal mass or abnormal lymphadenopathy. The heart size is within normal limits. Atherosclerotic changes of the aortic arch. Hilar Structures: The hilar structures appear normal without enlargement or abnormality. Trachea and Main Bronchi: The trachea and main bronchi are patent without evidence of obstruction or abnormality. Chest Wall: Bilateral gynecomastia. Few prominent left axillary lymph nodes, the largest measured about 6 mm in short axis, likely reactionary. No evidence of collection or abscess. Upper Abdomen: The liver showed heterogeneous density with serrated outlines suggestive of cirrhotic changes. Multiple hypodense hepatic cysts are noted the largest measured about 1.1x1 cm. The spleen is enlarged, measuring about 15.5 cm maximum with spots of calcified granulomas. A few paraesophageal varicosities are noted Evidence of cholecystectomy. Please correlate with the prior surgical history. Visualized portions of the adrenal glands, and kidneys are unremarkable. Bones: Visualized osseous structures are normal, no evidence of fracture or lytic/sclerotic lesions. IMPRESSION: 1. Hepatic cirrhotic changes. Multiple hepatic cysts, the largest measuring 1.1 x 1 cm. Unchanged. 2. Splenomegaly with calcified granulomas. Unchanged. 3. Evidence of paraesophageal varices. Unchanged. 4. Bilateral gynecomastia. Unchanged. 5. A few prominent left axillary lymph nodes, likely reactionary. No evidence of collection or abscess. Unchanged. 6. No significant interval change compared to prior study, dated on 11/16/2023. Electronically signed by Se Coon 04-20-2024 04:[address] 04/20/24 02:14 EXAM: CT head/brain wo con CLINICAL HISTORY: Altered ms. TECHNIQUE: An axial non-contrast CT scan of the brain was performed from the skull base to the high parietal region. One of the following dose reduction techniques was utilized for this exam: Automated exposure control, adjustment of the mA and/or kV according to patient size, use of iterative reconstruction. CTDI: 63.7 mGy, DLP: 1542.65 mGy-cm. COMPARISON: CT dated 09/30/2023. FINDINGS: Brain Parenchyma: Multiple subcortical and periventricular white matter hypodensities likely represent chronic microvascular ischemic changes. A faint small hypodense area was seen in the left occipital lobe, unchanged from the prior study. Likely due to chronic ischemic insult. Normal attenuation of the cerebral hemispheres, cerebellum, and brainstem. No evidence of acute infarct, hemorrhage, or mass effect. No abnormal areas of hyperattenuation. Ventricular System: A capacious ventricular system, denoting atrophic changes. No evidence of hydrocephalus. Subarachnoid Spaces: Capacious CSF spaces denote atrophic changes. No evidence of subarachnoid hemorrhage or extra-axial fluid collections. Cerebellum and Brainstem: Normal size and attenuation. No masses, lesions, or areas of abnormal attenuation. Orbits: Normal appearance of the globes, optic nerves, and extraocular muscles. No evidence of orbital masses or abnormal attenuation. Sinuses: Clear paranasal sinuses. No evidence of sinusitis or mucosal thickening. Mastoid Air Cells: Clear mastoid air cells. No evidence of mastoiditis. Skull and Meninges: Normal skull morphology. IMPRESSION: 1. No evidence of acute intracranial hemorrhage. 2. Mild chronic microvascular ischemic changes. 3. Mild senile brain atrophy changes. 4. Recommend MRI brain with diffusion sequences to rule out acute ischemic insult if clinically warranted. 5. No significant interval changes compared to the prior study, dated 09/30/2023. Electronically signed by Se Coon 04-20-2024 04:15 AM ECG Additional Comments: ECG. Normal sinus rhythm rate of 79. No significant change was found. QTc 438. Code Status & VTE Plan VTE Prophylaxis Plan VTE Prophylaxis will be ordered: Yes
--- NOTE | 2024-04-20 09:20 | Electrocardiogram Report ---
Test Reason : Blood Pressure : */* mmHG Vent. Rate : 79 BPM Atrial Rate : 79 BPM P-R Int : 166 ms QRS Dur : 78 ms QT Int : 382 ms P-R-T Axes : 33 17 33 degrees QTcB Int : 438 ms Normal sinus rhythm Normal ECG When compared with ECG of 17-Nov-2023 05:34, No significant change was found Confirmed by Cachorro Mendoza ([id number]) on 04/20/2024 9:20:31 AM Referred By: REFERRED SELF Confirmed By: Cachorro Mendoza
--- NOTE | 2024-04-20 09:55 | Ultrasound Report ---
EXAM: US Abdomen Limited INDICATION: TECHNIQUE: 4 quadrant and midline abdominal ultrasound obtained to assess for ascites. COMPARISON: No relevant prior studies available. FINDINGS: No ascitic fluid identified. Limited included views of the liver show nodular changes typical of cirrhosis. IMPRESSION: No ascites noted. ACT 112: Negative or not required by law. Electronically signed by Adrienne Cruz 04-20-2024 09:55 AM
--- NOTE | 2024-04-20 10:31 | Communication Note ---
Date of Service: April 20, 2024 Patient seen and examined Reports left flank pain has resolved Reported he had missed his lactulose for the past couple of days Patient has been mildly confused per RN Counseled patient on need for adherence to his lactulose Continue lactulose for now Will monitor mental status Will follow up GI consulted Other plans as detailed in H/P this AM
--- NOTE | 2024-04-20 11:21 | History & Physical Report ---
Date of Service April 20, 2024 Assessment & Plan (1) Hepatic encephalopathy: Plan: Hepatic encephalopathy would appear to be due to him not taking the lactulose as prescribed. There is no evidence for active gastrointestinal bleeding. He is not dehydrated potassium is normal no signs of infection. He does not have ascites to suggest SBP playing a role. At this point I would continue with the supplemental lactulose and rifaximin. Once his encephalopathy is cleared he could be discharged to home with follow-up with his usual gastroenterology team. Which strongly encouraged to continue lactulose as he does not like the taste he could mix it with some orange juice which sometimes is helpful. I do note on his med list that he is taking lorazepam. This should be stopped or discouraged may increase the risk of confusion in cirrhotic patients with hepatic encephalopathy. (2) Hyperammonemia: (3) Cirrhosis of liver: Admission and Anticipated Discharge Date Admission Date: April 20, 2024 History of Present Illness Chief Complaint: Hepatic encephalopathy. Primary Care Provider: Toby Paz MD 58-year-old gentleman with history of cirrhosis currently without nevaeh ascites. Has history of significant alcohol ingestion. Patient is on the transplant list last saw his transplantation team 6 or 8 months ago. He came into the emergency room because of some maxillary and flank pain. This is per the notes on the chart. Patient states he came in because of confusion. His confusion is improving. He has had hepatic encephalopathy in the past. In regards to potential etiology. Patient does not appear to have an acute infection. He does not have significant ascites to suspect SBP. There has been no gastrointestinal bleeding he has a normal hemoglobin. He is BUN/creatinine are also normal which against prerenal azotemia or dehydration as a source potassium is also normal on questioning the patient states he may have missed a few doses of his lactulose. He states he does not take it all the time as it tasted bad to him. Does not necessarily note too much diarrhea. States he takes his Xifaxan on a regular basis I do note that he takes Ativan. He states he has been on this for at least a year. Benzodiazepines are relatively contraindicated in patients with liver disease and hepatic encephalopathy. Ideally he should do without this if this is feasible. Patient denies any alcohol ingestion. Her enzymes are stable. Allergies Allergy/AdvReac Type Severity Reaction Status Date / Time bee venom protein (honey bee) Allergy Severe Anaphylaxis--CARRIES Verified 11/16/23 17:24 AN EPIPEN Home Medications Medication Instructions Recorded Confirmed Type atorvastatin 20 mg tablet 20 mg PO DAILY 04/20/24 04/20/24 History duloxetine 30 mg capsule,delayed 30 mg PO DAILY 04/20/24 04/20/24 History release ferrous sulfate 325 mg (65 mg 325 mg PO DAILY 04/20/24 04/20/24 History iron) tablet furosemide 40 mg tablet 40 mg PO DAILY 04/20/24 04/20/24 History gabapentin 100 mg capsule 100 mg PO TID 04/20/24 04/20/24 History gabapentin 300 mg capsule 300 mg PO HS 04/20/24 04/20/24 History lactulose 10 gram/15 mL oral 30 ml PO QID 04/20/24 04/20/24 History solution lorazepam 0.5 mg tablet 0.5 mg PO DAILY PRN Anxiety 04/20/24 04/20/24 History magnesium oxide 400 mg (241.3 mg 400 mg PO BID 04/20/24 04/20/24 History magnesium) tablet pantoprazole 40 mg tablet,delayed 40 mg PO BID 04/20/24 04/20/24 History release (Protonix) rifaximin 550 mg tablet (Xifaxan) 550 mg PO BID 04/20/24 04/20/24 History spironolactone 25 mg tablet 25 mg PO DAILY 04/20/24 04/20/24 History trazodone 50 mg tablet 100 mg PO HS 04/20/24 04/20/24 History Past Med/Surg History Problem List (Updated 12/18/23 @ 00:07 by Background Alexandra) Chest discomfort Hepatic encephalopathy (Acute) Atypical chest pain (Acute) Encephalopathy, hepatic (Acute) Depression GERD (gastroesophageal reflux disease) Acute confusion (Acute) Hyperammonemia (Acute) Thrombocytopenia (Acute) Acute hepatic encephalopathy (Acute) History of total left hip replacement (Acute) Bilateral leg pain (Acute) Altered mental status (Acute) Confusion Avascular necrosis of femur Hip pain Ambulatory dysfunction (Acute) Hyperammonemia (Acute) Acute pain of left hip (Acute) Alcoholic cirrhosis Dilated aortic root Acute alteration in mental status (Acute) Thrombocytopenia (Acute) Bilateral arm weakness (Acute) Acute hepatic encephalopathy (Acute) H/O angioedema (Chronic) ongoing, follows with allergy Elevated LFTs (Acute) HTN (hypertension) (Chronic) Acid reflux Abnormal PFT Thrombocytopenia UTI (urinary tract infection) Cirrhosis of liver Cough Encounter for pre-operative examination RUQ pain Insomnia (Chronic) Intractable right upper quadrant abdominal pain (Acute) GERD (gastroesophageal reflux disease) (Chronic) Migraine (Chronic) Medical History History of ascites Acute alteration in mental status Nausea HLD (hyperlipidemia) Hypertension Hyperlipidemia Surgical History History of esophagogastroduodenoscopy (EGD) History of colonoscopy History of bowel resection 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 History of appendectomy History of tooth extraction Family History Father Hearing loss Hypertension Stroke Heart disease Other No pertinent family history in first degree relatives Denies family history of No family history of adverse response to anesthesia No family history of bleeding disorder Allergies Asthma Social History Smoking Status: Former smoker Tobacco Type: Cigarettes Cigarettes Per Day: 1-2; Second Hand Exposure: No; Do You Dip or Chew Tobacco: No; Hx Alcohol Use: No Hx Substance Use: No Preferred Language: Turkmen Communication Ability: Effective Breeding Manager Required: No Beliefs That Will Affect Care: None marital status: Current Living Situation: Significant Other Current Living Situation Comment: LIVES WITH GIRLFRIEND 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 Chest and heart sounds were normal GI currently denies abdominal pain. Denies bleeding. States his stools are dark because of iron PRESSURE TANK OPERATOR notes confusion. States he was aware of it Psych endocrine negative Review of systems otherwise negative Physical Exam Physical Exam: Patient was sitting up at the edge of the bed. Responds promptly to questions. He was orientated to person place and day of the week. Was unable to do serial sevens. There is also slight delay in answering to questions consistent with some residual hepatic encephalopathy Reveal no clear scleral icterus Chest and heart sounds were normal Abdomen was protuberant but benign. No definite ascites. Bowel sounds were normal PRESSURE TANK OPERATOR did not demonstrate asterixis. Psych affect normal Exam otherwise negative Results & Data Vital Signs (Past 12 Hours) Vital Signs Temp Pulse Resp BP Pulse Ox Pulse Ox O2 Del Method 04/20/24 08:42 75 15 95 04/20/24 08:30 73 16 95 04/20/24 08:30 146/88 H 04/20/24 08:30 146/88 H 04/20/24 08:21 73 15 95 04/20/24 08:18 71 16 95 04/20/24 08:06 72 18 95 04/20/24 08:00 141/86 H 04/20/24 07:55 154/89 H 04/20/24 07:48 77 23 94 04/20/24 07:47 95 04/20/24 07:42 75 15 95 04/20/24 07:33 72 15 95 04/20/24 07:30 131/77 04/20/24 07:27 74 15 95 04/20/24 07:12 73 15 95 04/20/24 07:00 74 17 95 04/20/24 07:00 118/72 04/20/24 07:00 118/72 04/20/24 07:00 118/72 04/20/24 07:00 118/72 04/20/24 07:00 118/72 04/20/24 06:51 73 15 95 04/20/24 06:42 87 23 97 04/20/24 06:31 158/95 H 04/20/24 06:31 158/95 H 04/20/24 06:30 79 19 95 04/20/24 06:27 82 17 95 04/20/24 06:12 77 18 95 04/20/24 06:00 72 18 127/83 96 04/20/24 04:48 70 18 144/77 H 96 04/20/24 04:18 78 04/20/24 03:42 73 18 145/81 H 96 04/20/24 02:00 78 16 146/87 H 97 04/20/24 01:00 74 22 140/84 98 04/20/24 00:17 78 04/19/24 23:22 37 C 93 H 18 133/84 96 Room Air O2 Del Method 04/20/24 08:42 04/20/24 08:30 04/20/24 08:30 04/20/24 08:30 04/20/24 08:21 04/20/24 08:18 04/20/24 08:06 04/20/24 08:00 04/20/24 07:55 04/20/24 07:48 04/20/24 07:47 Room Air 04/20/24 07:42 04/20/24 07:33 04/20/24 07:30 04/20/24 07:27 04/20/24 07:12 04/20/24 07:00 04/20/24 07:00 04/20/24 07:00 04/20/24 07:00 04/20/24 07:00 04/20/24 07:00 04/20/24 06:51 04/20/24 06:42 04/20/24 06:31 04/20/24 06:31 04/20/24 06:30 04/20/24 06:27 04/20/24 06:12 04/20/24 06:00 04/20/24 04:48 04/20/24 04:18 04/20/24 03:42 04/20/24 02:00 04/20/24 01:00 04/20/24 00:17 04/19/24 23:22 Laboratory Results Ammonia of 152. Normal hemoglobin. Normal BUN and creatinine. Diagnostic Findings Ultrasound liver does not show ascites though shows nodular liver consistent with cirrhosis. No evidence for hepatoma Code Status & VTE Plan VTE Prophylaxis Plan VTE Prophylaxis will be ordered: Yes Coding Level of Care Code 93058 INT INP/OBS CARE 2MIN Diagnoses Hepatic encephalopathy K76.82 Hyperammonemia E72.20 Cirrhosis of liver K74.60
[2024-04-20] MEDS: GABAPENTIN 300 MG CAP PO SCH (21:45)
[2024-04-21 06:40] LABS: Basophils # (auto) 0.04 K/uL (0.00-0.20); Basophils % (auto) 0.6 %; Eosinophils % (auto) 6.2 %; Hematocrit (blood only) 38.9 % (42.0-52.0); Hemoglobin 13.6 g/dl (14.0-18.0); Immature Granulocytes # (auto) 0.02 K/uL (0.01-0.20); Immature Granulocytes % (auto) 0.3 %; Lymphocytes % (auto) 18.7 %; Mean Corpuscular Hemoglobin 33.6 pg (25.0-34.0); Mean Platelet Volume 12.6 fL (9.4-12.4); Monocytes # (auto) 0.73 K/uL (0.11-0.59); Monocytes % (auto) 11.4 %; Neutrophils # (auto) 4.02 K/uL (1.40-6.50); Neutrophils % (auto) 62.8 %; Platelet Count 40 K/uL (130-400); RDW Coefficient of Variation 15.6 % (11.5-14.5); RDW Standard Deviation 55.8 fL (36.4-46.3); Red Blood Count 4.05 M/uL (4.70-6.10); White Blood Count 6.41 K/ul (4.8-10.8)
[2024-04-21 07:01] LABS: Albumin Level 3.2 gm/dl (3.4-5.0); BUN Creatinine Ratio 19.2 (10-20); Bilirubin Direct 0.6 mg/dl (0-0.2); Bilirubin,Total 2.5 mg/dl (0.2-1.0); Calcium 8.3 mg/dl (8.6-10.3); Creatinine Clr Calc Pharmacy 124.2 ml/min; Magnesium 1.7 mg/dl (1.7-2.4); Potassium 3.9 mmol/L (3.5-5.1); Total Protein 5.4 gm/dl (6.0-8.3)
--- NOTE | 2024-04-21 08:57 | Hospitalist Progress Note ---
Date of Service April 21, 2024 Assessment & Plan (1) Hepatic encephalopathy: Plan: 58-year-old male with past medical history significant for dyslipidemia, hepatic encephalopathy, esophageal varices without bleeding, hypertension, history of DC, internal hemorrhoids, history of TIA, abdominal aortic aneurysm, cirrhosis of liver, GERD, avascular necrosis of bone of left hip, degenerative disc disease, thrombocytopenia, anemia of chronic disease, iron deficiency anemia due to chronic blood loss, hypoproliferative anemia, history of angioedema, history of SBO, depression, status post left hip replacement comes from home because of complaining of pain in the left axillary region and flank region. Patient seemed somewhat confused in the ER. Hepatic encephalopathy Patient acknowledged poor adherence to his lactulose CT head did not show any acute abnormalities Ammonia level was 152 Continue Lactulose 30 g QID Continue home rifaximin GI eval noted Patient has GI appt on 04/23/23 Resumed home lasix and spironolactone Per previous admission following with [facility] GI and waiting for liver transplant History of esophageal varices Per EGD 10/15/2023. Grade 1 esophageal varices. Portal hypertensive gastropathy. Left flank and axilla pain CT chest showed prominent left axillary lymph nodes likely reactive reactionary. No evidence of collection or abscess. EKG no acute findings. Troponin unremarkable Pain is resolved Chronic thrombocytopenia Due to cirrhosis Platelets 40 History of anemia Hemoglobin 13.6 today Hyperlipidemia Statin Depression Duloxetine History of left total hip replacement, degenerative disc disease Ambulatory dysfunction RN to ambulate. PT/OT if needed GERD On Protonix DVT prophylaxis SCDs as patient has thrombocytopenia Full code I spent a total of 50 minutes coordinating, documenting and providing care for this patient excluding time spent in performance of separately billed services Admission and Anticipated Discharge Date Admission Date: April 20, 2024 Subjective Patient seen and examined Reports confusion is improving Denied any other complaints Physical Exam Constitutional: + well hydrated; no acute distress Eyes: PERRL, conjunctivae normal, anicteric sclerae ENMT: external ear and nose normal, oropharynx normal Respiratory: normal respiratory effort, lungs clear to auscultation Cardiovascular: Rate/Rhythm: regular rate and regular rhythm Gastrointestinal (Abdomen): Soft, not distended, Normal bowel sounds, nontender Musculoskeletal: No pedal edema Neurologic: PERRL, EOMI, accommodation nl, no face palsy, no dysarthria No asterixis Psychiatric: A+Ox3, euthymic affect Results & Data Results & Data Vital Signs (Past 12 Hours) Vital Signs Temp Pulse Pulse Resp BP Pulse Ox O2 Del Method 04/21/24 07:48 36.8 C 80 18 147/73 H 95 Room Air 04/21/24 03:13 36.9 C 81 18 152/81 H 94 Room Air 04/20/24 23:18 36.8 C 79 16 144/77 H 93 Room Air 04/20/24 22:09 82 Laboratory Results Abnormal lab results 04/20/24 04/21/24 Range/Units 15:06 05:41 RBC 4.05 L (4.70-6.10) M/uL Hgb 13.6 L (14.0-18.0) g/dl Hct 38.9 L (42.0-52.0) % RDW Std Deviation 55.8 H (36.4-46.3) fL RDW Coeff of Fabiola 15.6 H (11.5-14.5) % Plt Count 40 L (130-400) K/uL MPV 12.6 H (9.4-12.4) fL Troup # (Auto) 0.73 H (0.11-0.59) K/uL Chloride 114 H (98-107) mmol/L Carbon Dioxide 20 L (21-32) mmol/L Calcium 8.3 L (8.6-10.3) mg/dl Total Bilirubin 2.5 H (0.2-1.0) mg/dl Direct Bilirubin 0.6 H (0-0.2) mg/dl AST 71 H (13-39) U/L Alkaline Phosphatase 108 H (34-104) U/L Ammonia 120.0 H (18-72) umol/L Total Protein 5.4 L (6.0-8.3) gm/dl Albumin 3.2 L (3.4-5.0) gm/dl
--- NOTE | 2024-04-21 09:34 | Gastroenterology Progress Note ---
Date of Service April 21, 2024 Assessment & Plan (1) Encephalopathy, hepatic: Plan: Resolving hepatic cephalopathy. Related to noncompliance with lactulose. Improving with reinstitution of lactulose. I believe he can be discharged as he has a significant other at home and has a office visit doctors appointment tomorrow. Discharge on usual lactulose and rifaximin. Did recommend to him that he stop if possible his benzodiazepine. Relatively contraindicated in hepatic encephalopathy patient's. Can follow-up with his usual treating professional benefits sales consultant. GI signed off reconsult as needed Admission and Anticipated Discharge Date Admission Date: April 20, 2024 Subjective Hepatic encephalopathy Patient's mentation improving. He was orientated person place and time. Still slow on serial threes but improved over yesterday. Ammonia level down to 120. Encephalopathy felt to be noncompliance with lactulose. As his ammonia is decreasing. His mentation is improving. Issue appears just to be noncompliance due to taste with lactulose as needed he can be discharged today. He has a significant other living with him him to monitor his progress and confusion. Patient tells me he has an office visit tomorrow and would like to be discharged for that visit. He can follow-up with his usual treating professional benefits sales consultant 10 to 14 days postdischarge Review of Systems Review of Systems: Denies fevers chills denies chest pain or shortness of breath. Denies any abdominal pain. Feels that his confusion is improving review of systems otherwise 9 Physical Exam Physical Exam: Sleeping though arouses easily. Does not appear confused. Orientated x 3. Mentation still somewhat slow though improved over yesterday. He has real no jaundice Abdominal examination benign CORPORATE ADMINISTRATIVE ASSISTANT no asterixis Results & Data Results & Data Vital Signs (Past 12 Hours) Vital Signs Temp Pulse Pulse Resp BP Pulse Ox O2 Del Method 04/21/24 07:48 36.8 C 80 18 147/73 H 95 Room Air 04/21/24 03:13 36.9 C 81 18 152/81 H 94 Room Air 04/20/24 23:18 36.8 C 79 16 144/77 H 93 Room Air 04/20/24 22:09 82 Laboratory Results Ammonia down to 120 PG Care Time/CCT Total # of Minutes Spent Total Time Spent with Patient: Total time spent is greater than 50% in coordination of care (as documented) at patient's floor/unit and/or counseling patient: Coding Level of Care Code 85912 SUB INP/OBS CARE 04/27MIN Diagnoses Encephalopathy, hepatic K76.82
[2024-04-21] MEDS: SPIRONOLACTONE 25 MG TAB PO SCH (10:45)
[2024-04-21] MEDS: FUROSEMIDE 40 MG TAB PO SCH (10:45)
[2024-04-22 07:05] LABS: Hematocrit (blood only) 40.9 % (42.0-52.0); Hemoglobin 14.3 g/dl (14.0-18.0); Mean Corpuscular Hemoglobin 33.1 pg (25.0-34.0); Mean Corpuscular Volume 94.7 fL (80.0-100.0); Mean Platelet Volume 12.2 fL (9.4-12.4); Platelet Count 36 K/uL (130-400); RDW Coefficient of Variation 15.4 % (11.5-14.5); RDW Standard Deviation 53.2 fL (36.4-46.3); Red Blood Count 4.32 M/uL (4.70-6.10); White Blood Count 7.76 K/ul (4.8-10.8)
[2024-04-22 07:18] LABS: Albumin Globulin Ratio 1.4 (0.9-2); Albumin Level 3.3 gm/dl (3.4-5.0); BUN Creatinine Ratio 14.8 (10-20); Bilirubin,Total 2.7 mg/dl (0.2-1.0); Calcium 8.5 mg/dl (8.6-10.3); Creatinine Clr Calc Pharmacy 112.1 ml/min; Globulin 2.4 gm/dl (2.5-4.0); Magnesium 1.8 mg/dl (1.7-2.4); Potassium 3.9 mmol/L (3.5-5.1); Total Protein 5.7 gm/dl (6.0-8.3)
[2024-04-22 07:54] VITALS: BP 142/75; RESP 19; TEMP 97.9; O2SAT 95
--- NOTE | 2024-04-22 09:15 | Discharge Summary ---
Date of Service April 22, 2024 Admission HPI Per Admitting Provider 58-year-old gentleman with history of cirrhosis currently without nevaeh ascites. Has history of significant alcohol ingestion. Patient is on the transplant list last saw his transplantation team 6 or 8 months ago. He came into the emergency room because of some maxillary and flank pain. This is per the notes on the chart. Patient states he came in because of confusion. His confusion is improving. He has had hepatic encephalopathy in the past. In regards to potential etiology. Patient does not appear to have an acute infection. He does not have significant ascites to suspect SBP. There has been no ga strointestinal bleeding he has a normal hemoglobin. He is BUN/creatinine are also normal which against prerenal azotemia or dehydration as a source potassium is also normal on questioning the patient states he may have missed a few doses of his lactulose. He states he does not take it all the time as it tasted bad to him. Does not necessarily note too much diarrhea. States he takes his Xifaxan on a regular basis I do note that he takes Ativan. He states he has been on this for at least a year. Benzodiazepines are relatively contraindicated in patients with liver disease and hepatic encephalopathy. Ideally he should do without this if this is feasible. Patient denies any alcohol ingestion. Her enzymes are stable. Admission Exam Per Admitting Provider Patient was sitting up at the edge of the bed. Responds promptly to questions. He was orientated to person place and day of the week. Was unable to do serial sevens. There is also slight delay in answering to questions consistent with some residual hepatic encephalopathy Reveal no clear scleral icterus Chest and heart sounds were normal Abdomen was protuberant but benign. No definite ascites. Bowel sounds were normal CLIENT MANAGER [employer] did not demonstrate asterixis. Psych affect normal Exam otherwise negative Principal Diagnosis Hepatic encephalopathy Discharge Exam Constitutional + well hydrated; no acute distress Eyes PERRL, conjunctivae normal, anicteric sclerae ENMT external ear and nose normal, oropharynx normal Respiratory normal respiratory effort, lungs clear to auscultation Cardiovascular Rate/Rhythm: regular rate and regular rhythm Gastrointestinal (Abdomen) Soft, normal bowel sounds, nontender Musculoskeletal No pedal edema Neurologic PERRL, EOMI, accommodation nl, no face palsy, no dysarthria Psychiatric A+Ox3, euthymic affect Discharge Data Allergies Allergy/AdvReac Type Severity Reaction Status Date / Time bee venom protein (honey bee) Allergy Severe Anaphylaxis--CARRIES Verified 11/16/23 17:24 AN EPIPEN Consultations 04/20/24 05:06 ED Decision to Admit Stat 04/20/24 07:36 Consult Gastroenterology Routine Ordered Studies 04/20/24 02:14 CT Brain [CT head/brain wo con] Stat CT chest diagnostic w con Stat 04/20/24 07:36 US abdomen ltd ascites Routine Hospital Course (1) Hepatic encephalopathy: 58-year-old male with past medical history significant for dyslipidemia, hepatic encephalopathy, esophageal varices without bleeding, hypertension, history of MT, internal hemorrhoids, history of TIA, abdominal aortic aneurysm, cirrhosis of liver, GERD, avascular necrosis of bone of left hip, degenerative disc disease, thrombocytopenia, anemia of chronic disease, iron deficiency anemia due to chronic blood loss, hypoproliferative anemia, history of angioedema, history of SBO, depression, status post left hip replacement comes from home because of complaining of pain in the left axillary region and flank region. Patient seemed somewhat confused in the ER. Hepatic encephalopathy Patient acknowledged poor adherence to his lactulose CT head did not show any acute abnormalities Ammonia level was 152 on admission Was managed with Lactulose Patient was counseled on need to be adherent with his lactulose Continue Lactulose 30 g QID Continue home rifaximin Patient needs to follow up with his GI/Title Insurance Agent Per previous admission following with [facility] GI and waiting for liver transplant History of esophageal varices Per EGD 10/15/2023. Grade 1 esophageal varices. Portal hypertensive gastropathy. Left flank and axilla pain CT chest showed prominent left axillary lymph nodes likely reactive reactionary. No evidence of collection or abscess. EKG no acute findings. Troponin unremarkable Pain is resolved Chronic thrombocytopenia Due to cirrhosis Platelets 36 today Total Time Total Time Spent Total Time Spent (In Minutes): 40 Total Time Includes: Examination of the Patient, Discharge Planning, Medication Reconciliation and Other (Updated significant other at bedside) Discharge Plan Discharge Items Patient Disposition: Home - Self-Care Reason For Visit: HEPATIC ENCEPHALOPATHY Discharge Diagnosis: Hepatic encephalopathy Activity: Resume your previous activity Non-emergency contact: Primary Care Provider and High Lift Operator Call non-emergency contact if: you have any medication questions and your symptoms worsen Follow-up/Referrals: Toby Paz MD [Primary Care Provider] - (Date & Time 04/26/2024 2:00 PM Provider: Rao Ochoa MD [facility], [facility] Diet: Heart Healthy and Low Sodium (2gm) Addtl Attending Provider Instructions: Mr Gutierrez You were hospitalized and managed for Hepatic encephalopathy. Please ensure you take your lactulose to ensure 3-4 bowel movements per day Continue your other medications as prescribed. Please ensure follow up with your Primary Doctor and High Lift Operator/Title Insurance Agent It was a pleasure taking care of you Pending Studies at Discharge: No Stand-Alone Forms: My [facility], Smoking Cessation Medications and DC Order Prescriptions: Continued furosemide 40 mg tablet 40 mg PO DAILY atorvastatin 20 mg tablet 20 mg PO DAILY trazodone 50 mg tablet 100 mg PO HS spironolactone 25 mg tablet 25 mg PO DAILY magnesium oxide 400 mg (241.3 mg magnesium) tablet 400 mg PO BID gabapentin 300 mg capsule 300 mg PO HS gabapentin 100 mg capsule 100 mg PO TID duloxetine 30 mg capsule,delayed release(DR/EC) 30 mg PO DAILY lactulose 10 gram/15 mL solution 30 ml PO QID Xifaxan 550 mg tablet 550 mg PO BID pantoprazole [Protonix] 40 mg Tablet,Delayed Release (Dr/Ec) 40 mg PO BID lorazepam 0.5 mg tablet 0.5 mg PO DAILY PRN (Reason: Anxiety) ferrous sulfate 325 mg (65 mg iron) Tablet 325 mg PO DAILY Discharge Orders: Discharge Order (Routine); Ordered 04/22/24 Ordered By: Danna Pelaez/Other Patient Handouts: Hepatic Encephalopathy Admission Data Admit Date/Time: 04/20/24 06:55 Attending Provider: Danna Espinoza I. Admit Provider: Eliot Valdes Primary Care Provider: Toby Paz Other Providers: Eliot Valdes; Pernell Pemberton Other Interventions: Discharge Summary Assessment (RN) Last Done: 04/22/24 09:32
[2024-04-22 09:53] VITALS: PULSE 83
--- NOTE | 2024-04-22 10:08 | Gastroenterology Progress Note ---
Date of Service April 22, 2024 Assessment & Plan (1) Acute hepatic encephalopathy: Plan: 58 year old male with history of dyslipidemia, cirrhosis w/ hepatic encephalopathy, esophageal varices, hypertension, history of OR, internal hemorrhoids, history of TIA, abdominal aortic aneurysm, GERD, avascular necrosis left hip, degenerative disc disease, anemia of chronic disease, iron deficiency anemia, history of SBO, depression admitted w/ HE in the setting of medication non-compliance. Ammonia and mentation improved w/ re-introduction of lactulose as prescribed. He tells me is being discharged this AM as he has outpatient follow up around 11 am today. Continue Lactulose titrated to 3-4 BMs daily Continue Xifaxan twice daily Outpatient follow up with your established liver team MELD labs every 6 months ABD imaging w/ AFP every 6 months EGD every 1-2 years No ETOH No NSAIDs Avoid hepatotoxin Low NA diet, less than 2G daily Less than 2G acetaminophen containing products daily I spent a total of 40 minutes on the date of service in review of patient's record, and previously obtained information in person and appropriate medical visit, discussion and education of plan, with patient and/or caregiver, placing orders for tests/referral/procedures as medically necessary and documentation of pertinent clinical information in patient's medical records for their visit today. Admission and Anticipated Discharge Date Admission Date: April 20, 2024 Supervising Physician Co-Signing Physician Notes Agree with above. 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 Compliance with lactulose strongly suggested. Subjective Pt was seen and evaluated, chart reviewed. Feeling well. Family at bedside. Request for discharge this AM as they have an outpatient appt around 11. Denies abd pain, moving bowels, loose 3-4 times daily. No black or bloody stools. Review of Systems Review of Systems: All other findings negative except as noted in HPI. Physical Exam Constitutional: WD/WN, vitals as above Respiratory: normal respiratory effort Skin: no rashes, warm and dry Results & Data Results & Data Vital Signs (Past 12 Hours) Vital Signs Temp Pulse Pulse Resp BP Pulse Ox O2 Del Method 04/22/24 09:32 97.9 F 81 19 142/75 H 95 04/22/24 07:53 97.9 F 81 19 142/75 H 95 Room Air 04/22/24 05:41 83 04/22/24 02:59 98.2 F 75 18 142/73 H 94 Room Air 04/21/24 23:48 98.4 F 84 16 147/71 H 93 Room Air Laboratory Results 04/22/24 Range/Units 06:16 WBC 7.76 (4.8-10.8) K/ul RBC 4.32 L (4.70-6.10) M/uL Hgb 14.3 (14.0-18.0) g/dl Hct 40.9 L (42.0-52.0) % MCV 94.7 (80.0-100.0) fL MCH 33.1 (25.0-34.0) pg MCHC 35.0 (32.0-36.0) g/dL RDW Std Deviation 53.2 H (36.4-46.3) fL RDW Coeff of Fabiola 15.4 H (11.5-14.5) % Plt Count 36 L (130-400) K/uL MPV 12.2 (9.4-12.4) fL Sodium 137 (136-145) mmol/L Potassium 3.9 (3.5-5.1) mmol/L Chloride 111 H (98-107) mmol/L Carbon Dioxide 21 (21-32) mmol/L Anion Gap 5 (3-11) BUN 12 (6-23) mg/dl Creatinine 0.81 (0.6-1.4) mg/dl Est Cr Clr Drug Dosing 112.1 ml/min eGFR 101.57 BUN/Creatinine Ratio 14.8 (10-20) Glucose 99 (70-99(Fasting)) mg/dl Calcium 8.5 L (8.6-10.3) mg/dl Magnesium 1.8 (1.7-2.4) mg/dl Total Bilirubin 2.7 H (0.2-1.0) mg/dl AST 66 H (13-39) U/L ALT 43 (7-52) U/L Alkaline Phosphatase 113 H (34-104) U/L Total Protein 5.7 L (6.0-8.3) gm/dl Albumin 3.3 L (3.4-5.0) gm/dl Globulin 2.4 L (2.5-4.0) gm/dl Albumin/Globulin Ratio 1.4 (0.9-2) PG Care Time/CCT Total # of Minutes Spent Total Time Spent with Patient: Total time spent is greater than 50% in coordination of care (as documented) at patient's floor/unit and/or counseling patient: Coding Level of Care Code 11464 SUB INP/OBS CARE MIN Diagnoses Acute hepatic encephalopathy K76.82
== END 2024-04-22 09:50 | disposition home or self-care (01) | DRG 442 ==
LOC: ED 23:17 → EDINP 04-20 06:55 → 2E 04-20 07:37

== ENCOUNTER 2024-07-04 17:06 | Inpatient (IN) ==
[2024-07-04 17:39] LABS: iSTAT Creatinine 0.9 mg/dl (0.6-1.3); iSTAT Hemoglobin 14.3 g/dl (14.0-18.0); iSTAT Ionized Calcium 1.17 mmol/l (1.12-1.32); iSTAT Potassium 3.7 mmol/L (3.3-5.0)
[2024-07-04 17:48] LABS: Basophils # (auto) 0.07 K/uL (0.00-0.20); Basophils % (auto) 1.2 %; Eosinophils # (auto) 0.52 K/uL (0.00-0.50); Eosinophils % (auto) 8.8 %; Hematocrit (blood only) 42.6 % (42.0-52.0); Hemoglobin 15.1 g/dl (14.0-18.0); Immature Granulocytes # (auto) 0.01 K/uL (0.01-0.20); Immature Granulocytes % (auto) 0.2 %; Lymphocytes # (auto) 1.39 K/uL (1.20-3.40); Lymphocytes % (auto) 23.4 %; Mean Corpuscular Hgb Conc 35.4 g/dL (32.0-36.0); Mean Corpuscular Volume 95.9 fL (80.0-100.0); Mean Platelet Volume 12.6 fL (9.4-12.4); Monocytes # (auto) 0.79 K/uL (0.11-0.59); Monocytes % (auto) 13.3 %; Neutrophils # (auto) 3.15 K/uL (1.40-6.50); Neutrophils % (auto) 53.1 %; Platelet Count 57 K/uL (130-400); RDW Coefficient of Variation 15.1 % (11.5-14.5); RDW Standard Deviation 53.4 fL (36.4-46.3); Red Blood Count 4.44 M/uL (4.70-6.10); White Blood Count 5.93 K/ul (4.8-10.8)
--- NOTE | 2024-07-04 17:50 | Emergency Department Note ---
ED Provider Note History of Present Illness Chief Complaint: TIA Symptoms Stated Complaint: CONFUSION, BLURRED VISION Time Seen by Provider: 07/04/24 17:18 Source: patient Mode of arrival: ambulatory Limitations: no limitations This patient is a 58-year-old male who presents to the emergency department accompanied by his fiance for evaluation of confusion over the past few days. Patient reports that he feels he has been confused and disoriented over the past few days. His fiance states that he has been somewhat confused for the past 3 to 4 days but symptoms are worse today. He has been calling her at work today telling her that they need to leave to go to their appointment, but their appointment was not until tomorrow. She states that he is acting similar to he does when he forgets to take his lactulose, but he has been taking it as prescribed. He does have a history of hepatic encephalopathy. Patient states that he drinks alcohol "sometimes", last alcohol ingestion a few days ago. Patient notes some generalized blurred vision. He complained of some right arm weakness to triage but did not note this to me. Fianc states he has been off balance. No recent trauma or head injury. No fever/chills, illness or urinary symptoms. Patient denies abdominal pain, vomiting or chest pain. Home Medications Medication Instructions Recorded Confirmed Type atorvastatin 20 mg tablet 20 mg PO QAM 04/20/24 07/04/24 History duloxetine 30 mg capsule,delayed 30 mg PO QAM 04/20/24 07/04/24 History release ferrous sulfate 325 mg (65 mg 325 mg PO QAM 04/20/24 07/04/24 History iron) tablet furosemide 40 mg tablet 40 mg PO QAM 04/20/24 07/04/24 History gabapentin 100 mg capsule 100 mg PO BID 04/20/24 07/04/24 History gabapentin 300 mg capsule 300 mg PO HS 04/20/24 07/04/24 History lactulose 10 gram/15 mL oral 30 ml PO QID 04/20/24 07/04/24 History solution lorazepam 0.5 mg tablet 0.5 mg PO DAILY PRN Anxiety 04/20/24 07/04/24 History magnesium oxide 400 mg (241.3 mg 400 mg PO BID 04/20/24 07/04/24 History magnesium) tablet pantoprazole 40 mg tablet,delayed 40 mg PO BID 04/20/24 07/04/24 History release (Protonix) rifaximin 550 mg tablet (Xifaxan) 550 mg PO BID 04/20/24 07/04/24 History spironolactone 25 mg tablet 25 mg PO QAM 04/20/24 07/04/24 History trazodone 50 mg tablet 100 mg PO HS 04/20/24 07/04/24 History vitamin A-vitamin C-vit E-min 1 tab PO DAILY 07/04/24 07/04/24 History tablet Allergies Allergy/AdvReac Type Severity Reaction Status Date / Time bee venom protein (honey bee) Allergy Severe Anaphylaxis--CARRIES Verified 07/04/24 20:41 AN EPIPEN Past Med/Surg History Problem List (Updated 07/05/24 @ 01:35 by aCrolyn Neely PA-C) Left axillary pain (Acute) Acute hepatic encephalopathy (Acute) Chest discomfort Hepatic encephalopathy (Acute) Atypical chest pain (Acute) Encephalopathy, hepatic (Acute) Depression GERD (gastroesophageal reflux disease) Acute confusion (Acute) Hyperammonemia (Acute) Thrombocytopenia (Acute) Acute hepatic encephalopathy (Acute) History of total left hip replacement (Acute) Bilateral leg pain (Acute) Altered mental status (Acute) Confusion Avascular necrosis of femur Hip pain Ambulatory dysfunction (Acute) Hyperammonemia (Acute) Acute pain of left hip (Acute) Alcoholic cirrhosis Dilated aortic root Acute alteration in mental status (Acute) Thrombocytopenia (Acute) Bilateral arm weakness (Acute) Acute hepatic encephalopathy (Acute) H/O angioedema (Chronic) ongoing, follows with allergy Elevated LFTs (Acute) HTN (hypertension) (Chronic) Acid reflux Abnormal PFT Thrombocytopenia UTI (urinary tract infection) Cirrhosis of liver Cough Encounter for pre-operative examination RUQ pain Insomnia (Chronic) Intractable right upper quadrant abdominal pain (Acute) GERD (gastroesophageal reflux disease) (Chronic) Migraine (Chronic) Medical History History of ascites Acute alteration in mental status Nausea HLD (hyperlipidemia) Hypertension Hyperlipidemia Surgical History History of esophagogastroduodenoscopy (EGD) History of colonoscopy History of bowel resection 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 History of appendectomy History of tooth extraction Family History Father Hearing loss Hypertension Stroke Heart disease Other No pertinent family history in first degree relatives Denies family history of No family history of adverse response to anesthesia No family history of bleeding disorder Allergies Asthma Social History Smoking Status: Former smoker Tobacco Type: Cigarettes Cigarettes Per Day: 1; Second Hand Exposure: No; Do You Dip or Chew Tobacco: No; Hx Alcohol Use: No Hx Substance Use: No Preferred Language: Kazakh Communication Ability: Effective Epic Cupid Analyst Required: No Beliefs That Will Affect Care: None marital status: Current Living Situation: Spouse Current Living Situation Comment: LIVES WITH GIRLFRIEND 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 Safe at Home: Yes Safety Concerns: Feels Safe At This Time Assistive Devices: Glasses Physical Exam Vital Signs Vital Signs - 24 hr 07/04/24 17:10 07/04/24 17:29 07/04/24 17:30 Temperature 36.5 C Temperature Source Temporal Artery Scan Pulse Rate 98 H 81 85 Pulse Rate from SpO2 Sensor 85 Pulse Rhythm Regular Pulse Strength Normal Respiratory Rate 20 28 H Respiratory Effort / Characteristics Non-Labored Spontaneous Respiratory Depth Normal Respiratory Pattern Regular Blood Pressure 161/97 H 146/84 H Blood Pressure Mean 118 104 Blood Pressure Position Sitting Pulse Oximetry 96 95 Oxygen Delivery Method Room Air Sepsis Recent Fever Within 48 Hours No Sepsis New/Unexplained Change in Mental Status No Sepsis Action Taken by Nursing No Action Required 07/04/24 18:09 07/04/24 19:00 07/04/24 20:00 Temperature Temperature Source Pulse Rate 78 75 80 Pulse Rate from SpO2 Sensor 77 Pulse Rhythm Pulse Strength Respiratory Rate 20 19 18 Respiratory Effort / Characteristics Respiratory Depth Respiratory Pattern Blood Pressure 142/77 H 143/86 H 153/85 H Blood Pressure Mean 98 94 96 Blood Pressure Position Pulse Oximetry 97 97 97 Oxygen Delivery Method Sepsis Recent Fever Within 48 Hours Sepsis New/Unexplained Change in Mental Status Sepsis Action Taken by Nursing VITALS: Vitals are noted on the nurse's note and reviewed by myself. GENERAL: This is a 58-year-old male, in no acute distress, well-developed well- nourished. SKIN: Mild jaundice noted. EARS: External auditory canals clear, tympanic membranes pearly summers without erythema or effusion bilaterally. EYES: Pupils equal round and reactive to light and accommodation. Mild scleral icterus noted. MOUTH: Mucous membranes dry. Tonsils are not enlarged. Pharynx without erythema or exudate. NECK: Supple without nuchal rigidity. No lymphadenopathy. HEART: Regular rate and rhythm without murmurs gallops or rubs. LUNGS: Clear to auscultation bilaterally without wheezes, rales or rhonchi. ABDOMEN: Positive bowel sounds x 4. Protuberant abdomen, nontender to palpation. NEURO: Patient was alert and oriented to person place and month/day of the week. Course Administered Medications Gabapentin (Gabapentin 100 Mg Cap) 100 mg PO TID ANNMARIE Stop: 08/03/24 23:19 Last Admin: 07/05/24 00:08 Dose: 100 mg Documented By: TODD Sodium Chloride (Nss) 1,000 mls @ 100 mls/hr IV .Q10H ANNMARIE Stop: 07/05/24 06:59 Last Admin: 07/04/24 21:24 Dose: 100 mls/hr Documented By: JENY Magnesium Oxide (Magnesium Oxide 400 Mg Tab) 400 mg PO BID ANNMARIE Stop: 08/03/24 23:19 Last Admin: 07/05/24 00:08 Dose: 400 mg Documented By: TODD Pantoprazole Sodium (Pantoprazole 40 Mg Tab) 40 mg PO BID ANNMARIE Stop: 08/03/24 23:19 Last Admin: 07/05/24 00:09 Dose: 40 mg Documented By: TODD Rifaximin (Rifaximin 550 Mg Tablet) 550 mg PO BID ANNMARIE Stop: 08/03/24 23:19 Last Admin: 07/05/24 00:08 Dose: 550 mg Documented By: TODD Discontinued Medications Sodium Chloride (Nss) 500 mls @ 999 mls/hr IV .Q31M ONE Stop: 07/04/24 18:03 Last Infusion: 07/04/24 20:11 Dose: Infused Documented By: Admin: 07/04/24 18:47 Dose: 999 mls/hr Documented By: JENY Thiamine HCl 200 mg/ Sodium (Chloride) 52 mls @ 208 mls/hr IV NOW STA Stop: 07/04/24 20:58 Last Infusion: 07/04/24 21:40 Dose: Infused Documented By: Admin: 07/04/24 21:23 Dose: 208 mls/hr Documented By: JENY Ioversol (Optiray 320 125ml) 115 ml IV ONCE ONE Stop: 07/04/24 18:01 Last Admin: 07/04/24 18:00 Dose: 115 ml Documented By: DELANEY Lactulose (Lactulose Syrup 30 Gm/45 Ml Udp) 30 gm PO NOW STA Stop: 07/04/24 19:35 Last Admin: 07/04/24 21:24 Dose: 30 gm Documented By: NRB Medical Decision Making Differential Diagnosis Infection, hypoglycemia, electrolyte abnormalities, overdose, toxicologic, cardiac sources, intracerebral event, neurologic, trauma, as well as other pathologies. Laboratory Data Attestation: I reviewed the patient's lab results. 07/04/24 17:05 07/04/24 17:05 Lab Results 07/04/24 07/04/24 07/04/24 Range/Units 17:05 17:27 18:50 WBC 5.93 (4.8-10.8) K/ul RBC 4.44 L (4.70-6.10) M/uL Hgb 15.1 (14.0-18.0) g/dl POC Hgb 14.3 (14.0-18.0) g/dl Hct 42.6 (42.0-52.0) % POC Hct 42 (42-52) % MCV 95.9 (80.0-100.0) fL MCH 34.0 (25.0-34.0) pg MCHC 35.4 (32.0-36.0) g/dL RDW Std Deviation 53.4 H (36.4-46.3) fL RDW Coeff of Fabiola 15.1 H (11.5-14.5) % Plt Count 57 L (130-400) K/uL MPV 12.6 H (9.4-12.4) fL Immature Gran % (Auto) 0.2 % Neut % (Auto) 53.1 % Lymph % (Auto) 23.4 % [place] % (Auto) 13.3 % Eos % (Auto) 8.8 % Baso % (Auto) 1.2 % Neut # (Auto) 3.15 (1.40-6.50) K/uL Lymph # (Auto) 1.39 (1.20-3.40) K/uL [place] # (Auto) 0.79 H (0.11-0.59) K/uL Eos # (Auto) 0.52 H (0.00-0.50) K/uL Baso # (Auto) 0.07 (0.00-0.20) K/uL Immature Gran # (Auto) 0.01 (0.01-0.20) K/uL PT 13.2 H (9.0-12.0) Seconds INR 1.2 H (0.9-1.1) POC Sodium 144 (135-144) mmol/L Sodium 142 (136-145) mmol/L POC Potassium 3.7 (3.3-5.0) mmol/L Potassium 3.8 (3.5-5.1) mmol/L POC Chloride 112 (101-112) mmol/L Chloride 115 H (98-107) mmol/L Carbon Dioxide 22 (21-32) mmol/L POC Total CO2 20 L (24-31) mmol/L Anion Gap 5 (3-11) POC Anion Gap 17.0 (16-25) mmol/L POC BUN 14 (7-18) mg/dl BUN 14 (6-23) mg/dl Creatinine 0.90 (0.6-1.4) mg/dl POC Creatinine 0.9 (0.6-1.3) mg/dl Est Cr Clr Drug Dosing 101.2 ml/min eGFR 98.38 BUN/Creatinine Ratio 15.6 (10-20) Glucose 112 H (70-99(Fasting)) mg/dl POC Glucose (other) 111 H (70-99) mg/dl Calcium 8.7 (8.6-10.3) mg/dl POC Ioniz Calcium Doug 1.17 (1.12-1.32) mmol/l Magnesium 2.0 (1.7-2.4) mg/dl Total Bilirubin 2.4 H (0.2-1.0) mg/dl AST 54 H (13-39) U/L ALT 31 (7-52) U/L Alkaline Phosphatase 154 H (34-104) U/L Ammonia 126.0 H (18-72) umol/L Total Protein 6.7 (6.0-8.3) gm/dl Albumin 3.6 (3.4-5.0) gm/dl Globulin 3.1 (2.5-4.0) gm/dl Albumin/Globulin Ratio 1.2 (0.9-2) Ethyl Alcohol mg/dL < 10.0 (<10.0) mg/dl Imaging Data Attestation: I personally reviewed and interpreted this imaging study as follows: Radiologist's Impression: Head CT 07/04/24 17:33 Clinical History: Right-sided weakness. Confusion Technique: Axial computed tomography images were obtained of the brain from the vertex to the skull base without intravenous contrast. Findings: There is no sign of intracranial hemorrhage. There is normal summers-white matter differentiation with no sign of acute or old infarction. No midline shift or other form of herniation is identified. There is no hydrocephalus. No obvious mass lesion is seen on this noncontrast examination. The visualized portions of the orbits and paranasal sinuses appear unremarkable. The mastoid air cells appear clear Impression: Unremarkable noncontrast CT of the brain Electronically signed by Ryder Forrester 07-04-2024 6:21 PM Head CTA 07/04/24 17:33 Clinical History: Right-sided weakness. Confusion Technique: Axial computed tomography images were obtained of the brain after the administration of intravenous contrast according to the CT angiogram protocol Findings: There is calcified plaque within the cavernous and supraclinoid segments of the internal carotid arteries bilaterally, without stenosis No definite stenosis is seen of the anterior, middle, or posterior cerebral artery circulations. There is mild nodularity of the tip of the basilar artery, measuring up to 5 mm in diameter Impression: 1. No definite stenosis of the intracranial arteries 2. 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 Follow-up conventional angiography could be considered ACT 112: Positive. There are findings on this exam that require communication between the performing entity and the patient following Patient Test Result Information Act ([place] ACT 112) guidelines. Electronically signed by Ryder Forrester 07-04-2024 6:24 PM Neck CTA 07/04/24 17:33 Clinical History: Right-sided weakness. Confusion Technique: Axial computed tomography images were obtained of the neck after the administration of intravenous contrast according to the CT angiogram protocol Findings: No stenosis is seen of the common carotid arteries bilaterally. There is plaque within the carotid bulbs bilaterally, without stenosis. There is plaque within the proximal left internal carotid artery, with less than 30% diameter narrowing. The remainder of the internal carotid arteries appear patent bilaterally. There is mild plaque within the proximal external carted arteries bilaterally, without stenosis The vertebral arteries are patent bilaterally with no significant stenosis seen. The visualized thoracic aorta appears unremarkable Impression: Bilateral carotid atherosclerosis, without significant stenosis Electronically signed by Ryder Forrester 07-04-2024 6:31 PM MDM Narrative This patient is a 58-year-old male who presents to the emergency department for evaluation of confusion/disorientation over the past few days. On exam patient is alert and oriented to person, place and day of the week. He is unsure what year it is. CT of the head as well as CT angiograms of the head and neck were performed and reviewed by radiology. Patient does have a possible small aneurysm as well as some carotid atherosclerosis, but nothing that would explain symptoms today. Labs revealed no leukocytosis, anemia or concerning electrolyte abnormalities. Ammonia was noted to be elevated at 126. I do suspect hepatic encephalopathy is likely the cause of the patient's symptoms. He was treated with a dose of lactulose and [facility] the patient for further care. Impression Acute hepatic encephalopathy Discharge Plan Visit Data Chief Complaint: TIA Symptoms Stated Complaint: CONFUSION, BLURRED VISION ED Provider: Brain Berrios ED Midlevel Provider: Carolyn Neely Discharge Problem: Acute hepatic encephalopathy Patient Disposition: Admitted As Inpatient Discharge Instructions Interventions: ED Discharge Assessment Last Done: 07/04/24 22:47
[2024-07-04] MEDS: OPTIRAY 320 125ml IV ONE (18:00)
[2024-07-04 18:05] LABS: Albumin Globulin Ratio 1.2 (0.9-2); Albumin Level 3.6 gm/dl (3.4-5.0); BUN Creatinine Ratio 15.6 (10-20); Bilirubin,Total 2.4 mg/dl (0.2-1.0); Calcium 8.7 mg/dl (8.6-10.3); Creatinine Clr Calc Pharmacy 101.2 ml/min; Globulin 3.1 gm/dl (2.5-4.0); Potassium 3.8 mmol/L (3.5-5.1); Total Protein 6.7 gm/dl (6.0-8.3)
[2024-07-04 18:11] LABS: INR 1.2 (0.9-1.1); Prothrombin Time 13.2 Seconds (9.0-12.0)
--- NOTE | 2024-07-04 18:21 | CT Scan Report ---
Clinical History: Right-sided weakness. Confusion Technique: Axial computed tomography images were obtained of the brain from the vertex to the skull base without intravenous contrast. Findings: There is no sign of intracranial hemorrhage. There is normal summers-white matter differentiation with no sign of acute or old infarction. No midline shift or other form of herniation is identified. There is no hydrocephalus. No obvious mass lesion is seen on this noncontrast examination. The visualized portions of the orbits and paranasal sinuses appear unremarkable. The mastoid air cells appear clear Impression: Unremarkable noncontrast CT of the brain Electronically signed by Ryder Forrester 07-04-2024 6:21 PM
--- NOTE | 2024-07-04 18:25 | CT Scan Report ---
Clinical History: Right-sided weakness. Confusion Technique: Axial computed tomography images were obtained of the brain after the administration of intravenous contrast according to the CT angiogram protocol Findings: There is calcified plaque within the cavernous and supraclinoid segments of the internal carotid arteries bilaterally, without stenosis No definite stenosis is seen of the anterior, middle, or posterior cerebral artery circulations. There is mild nodularity of the tip of the basilar artery, measuring up to 5 mm in diameter Impression: 1. No definite stenosis of the intracranial arteries 2. 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 Follow-up conventional angiography could be considered ACT 112: Positive. There are findings on this exam that require communication between the performing entity and the patient following Patient Test Result Information Act ([place] ACT 112) guidelines. Electronically signed by Ryder Forrester 07-04-2024 6:24 PM
--- NOTE | 2024-07-04 18:31 | CT Scan Report ---
Clinical History: Right-sided weakness. Confusion Technique: Axial computed tomography images were obtained of the neck after the administration of intravenous contrast according to the CT angiogram protocol Findings: No stenosis is seen of the common carotid arteries bilaterally. There is plaque within the carotid bulbs bilaterally, without stenosis. There is plaque within the proximal left internal carotid artery, with less than 30% diameter narrowing. The remainder of the internal carotid arteries appear patent bilaterally. There is mild plaque within the proximal external carted arteries bilaterally, without stenosis The vertebral arteries are patent bilaterally with no significant stenosis seen. The visualized thoracic aorta appears unremarkable Impression: Bilateral carotid atherosclerosis, without significant stenosis Electronically signed by Ryder Forrester 07-04-2024 6:31 PM
[2024-07-04] MEDS: SODIUM CHLORIDE 0.9% 500 ML IV ONE (18:47)
[2024-07-04 19:32] LABS: Appearance Urine Clear (Clear); Bacteria Urine Automated None Seen (None Seen); Bilirubin Urine Negative (Negative); Blood Urine Negative (Negative); Calcium Oxalate Crystals Urine Present (None Prsent); Color Urine Dark Yellow; Epithelial Cell Urine Auto 0-2 /hpf (0-2); Glucose Urine UA Negative (Negative); Ketones Urine Trace (Negative); Leukocyte Esterase Urine Negative (Negative); Nitrite Urine Negative (Negative); Protein Urine 1+ (Negative); Specific Gravity Urine > 1.045 (1.000-1.030); Sperm Urine Present (None Prsent); Urobilinogen Urine Positive (Negative); WBC Urine Automated 0-5 /hpf (0-5); pH Urine 6.5 (4.5-7.5)
[2024-07-04] MEDS ORDERED: ACETAMINOPHEN 325 MG TAB PO PRN (20:34)
[2024-07-04] MEDS ORDERED: MAGNESIUM HYDROXIDE SUSP 30 ML UDC PO PRN (20:34)
--- NOTE | 2024-07-04 20:58 | History & Physical Report ---
Date of Service July 04, 2024 Assessment & Plan (1) Hepatic encephalopathy: Plan Assessment/plan Patient is a 58-year-old male with past medical history of dyslipidemia, hepatic encephalopathy, esophageal varices without bleeding, hypertension, history of [place], internal hemorrhoids, history of TIA, abdominal aortic aneurysm, cirrhosis of liver, GERD, avascular necrosis of bone of left hip, degenerative disc disease, thrombocytopenia, anemia of chronic disease, iron deficiency anemia due to chronic blood loss, hypoproliferative anemia presents to the hospital with confusion for 4 days. Hepatic encephalopathy Patient's with a past medical history of decompensated liver cirrhosis presents with confusion for [address] head without contrast on admission did not show any acute finding No leukocytosis Ammonia level of 126 umol/h on admission Urinalysis does not suggest infection CTA of the head showed possible small aneurysm at the tip of the basilar artery measuring 5mm. Will need outpatient follow-up for further evaluation Continue lactulose every 6 hours; titrate dose to have bowel movement up to 3 times per day Continue on rifaximin Hold home as needed Ativan, trazodone, gabapentin at night Follow-up on ammonia level Hold lasix and spironolactone for now NSS at 100cc/hr for 1 L Thiamine daily Chronic thrombocytopenia- likely secondary to cirrhosis, monitor Hyperlipidemiacontinue on Lipitor Depressioncontinue duloxetine. trazodone on hold History of left hip replacement, degenerative disc diseaseon gabapentin. Gabapentin at night on hold. Continue gabapentin 100mg tid GERDcontinue on Protonix Full code DVT prophylaxisSCDs as patient has thrombocytopenia Time spent evaluating patient, direct bedside care, chart review, placing orders, interpretation of diagnostic studies, discussion with consultants, patient, and family members, as well as other required patient management activities is 75 minutes Please note the above document was generated using voice recognition software. It may contain grammatical, syntax or spelling errors. Any formal questions or concerns about the content, text or information contained within the body of this dictation should be directly addressed to the provider for clarification History of Present Illness Chief Complaint: Confusion for last few days Primary Care Provider: Toby Paz MD History obtained from chart review and interview with the patient Past medical history of hyperlipidemia, history of alcohol cirrhosis, history of hepatic encephalopathy, hypertension, GERD, depression, abdominal aortic aneurysm, internal hemorrhoids, avascular necrosis of left hip, thrombocytopenia Last admission in April 2024 for hepatic encephalopathy Patient presented to the hospital with confusion, changes in sleep pattern for last 4 days. Patient reports that he has been feeling "off" last several days. He reports feeling confused, reports increasing lethargy and sleepiness for last few days. He denies fever, visual changes, focal weakness, abdominal pain, urinary urgency, increased frequency. He reports that he has been compliant with lactulose; reports bowel movement up to 3-4 times a day. On presentation to the ED, he was afebrile, hemodynamically stable and saturating well on room air. He underwent CT chest, CTA head and neck which did not show any acute findings. Ammonia level was found to be 126 umol/h. AST slightly elevated to 54, ALP elevated to 154. Patient was given a dose of lactulose. He reports 2 bowel movement in the ED. Patient was admitted for further evaluation and treatment. Allergies Allergy/AdvReac Type Severity Reaction Status Date / Time bee venom protein (honey bee) Allergy Severe Anaphylaxis--CARRIES Verified 07/04/24 20:41 AN EPIPEN Home Medications Medication Instructions Recorded Confirmed Type atorvastatin 20 mg tablet 20 mg PO QAM 04/20/24 07/04/24 History duloxetine 30 mg capsule,delayed 30 mg PO QAM 04/20/24 07/04/24 History release ferrous sulfate 325 mg (65 mg 325 mg PO QAM 04/20/24 07/04/24 History iron) tablet furosemide 40 mg tablet 40 mg PO QAM 04/20/24 07/04/24 History gabapentin 100 mg capsule 100 mg PO BID 04/20/24 07/04/24 History gabapentin 300 mg capsule 300 mg PO HS 04/20/24 07/04/24 History lactulose 10 gram/15 mL oral 30 ml PO QID 04/20/24 07/04/24 History solution lorazepam 0.5 mg tablet 0.5 mg PO DAILY PRN Anxiety 04/20/24 07/04/24 History magnesium oxide 400 mg (241.3 mg 400 mg PO BID 04/20/24 07/04/24 History magnesium) tablet pantoprazole 40 mg tablet,delayed 40 mg PO BID 04/20/24 07/04/24 History release (Protonix) rifaximin 550 mg tablet (Xifaxan) 550 mg PO BID 04/20/24 07/04/24 History spironolactone 25 mg tablet 25 mg PO QAM 04/20/24 07/04/24 History trazodone 50 mg tablet 100 mg PO HS 04/20/24 07/04/24 History vitamin A-vitamin C-vit E-min 1 tab PO DAILY 07/04/24 07/04/24 History tablet Past Med/Surg History Problem List Left axillary pain (Acute) Acute hepatic encephalopathy (Acute) Chest discomfort Hepatic encephalopathy (Acute) Atypical chest pain (Acute) Encephalopathy, hepatic (Acute) Depression GERD (gastroesophageal reflux disease) Acute confusion (Acute) Hyperammonemia (Acute) Thrombocytopenia (Acute) Acute hepatic encephalopathy (Acute) History of total left hip replacement (Acute) Bilateral leg pain (Acute) Altered mental status (Acute) Confusion Avascular necrosis of femur Hip pain Ambulatory dysfunction (Acute) Hyperammonemia (Acute) Acute pain of left hip (Acute) Alcoholic cirrhosis Dilated aortic root Acute alteration in mental status (Acute) Thrombocytopenia (Acute) Bilateral arm weakness (Acute) Acute hepatic encephalopathy (Acute) H/O angioedema (Chronic) ongoing, follows with allergy Elevated LFTs (Acute) HTN (hypertension) (Chronic) Acid reflux Abnormal PFT Thrombocytopenia UTI (urinary tract infection) Cirrhosis of liver Cough Encounter for pre-operative examination RUQ pain Insomnia (Chronic) Intractable right upper quadrant abdominal pain (Acute) GERD (gastroesophageal reflux disease) (Chronic) Migraine (Chronic) Medical History History of ascites Acute alteration in mental status Nausea HLD (hyperlipidemia) Hypertension Hyperlipidemia Surgical History History of esophagogastroduodenoscopy (EGD) History of colonoscopy History of bowel resection 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 History of appendectomy History of tooth extraction Family History Father Hearing loss Hypertension Stroke Heart disease Other No pertinent family history in first degree relatives Denies family history of No family history of adverse response to anesthesia No family history of bleeding disorder Allergies Asthma Social History Smoking Status: Never smoker Tobacco Type: Cigarettes Cigarettes Per Day: 1; Second Hand Exposure: No; Do You Dip or Chew Tobacco: No; Hx Alcohol Use: No Hx Substance Use: No Preferred Language: Slovak Communication Ability: Effective Paper Wood Cutter Required: No Beliefs That Will Affect Care: None marital status: Current Living Situation: Spouse and Significant Other Current Living Situation Comment: LIVES WITH GIRLFRIEND 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 Oriented to time place and person. Not in any distress. Respiratory: normal respiratory effort, lungs clear to auscultation, no wheeze, rales, rhonchi. Normal insp/exp effort, no accessory muscle use Cardiovascular: RRR, no murmur, no edema Vessels: no JVD or carotid bruit Chest: normal inspection of chest Abdomen: Soft, nontender. Bowel sound present. Neurologic: PERRL, EOMI, accommodation nl, no face palsy, no dysarthria CN's II- XI intact bilaterally and moves all extremities. No focal weakness. Results & Data Results & Data Vital Signs (Past 12 Hours) Vital Signs Temp Pulse Resp BP Pulse Ox O2 Del Method 07/04/24 20:00 80 18 153/85 H 97 07/04/24 19:00 75 19 143/86 H 97 07/04/24 18:09 78 20 142/77 H 97 07/04/24 17:30 85 28 H 146/84 H 95 07/04/24 17:29 81 07/04/24 17:10 36.5 C 98 H 20 161/97 H 96 Room Air
[2024-07-04] MEDS: THIAMINE HCL 200 MG in SODIUM CHLORIDE 0.9% 50 ML IV STA (21:23)
[2024-07-04] MEDS: LACTULOSE SYRUP 30 GM/45 ML UDP PO STA (21:24)
[2024-07-04] MEDS: SODIUM CHLORIDE 0.9% 1,000 ML IV SCH (21:24)
[2024-07-05] MEDS: MAGNESIUM OXIDE 400 MG TAB PO SCH (00:08)
[2024-07-05] MEDS: GABAPENTIN 100 MG CAP PO SCH (00:08)
[2024-07-05] MEDS: rifAXIMin 550 MG TABLET PO SCH (00:08)
[2024-07-05] MEDS: PANTOprazole 40 MG TAB PO SCH (00:09)
[2024-07-05 06:26] LABS: Basophils # (auto) 0.06 K/uL (0.00-0.20); Basophils % (auto) 1.2 %; Eosinophils # (auto) 0.63 K/uL (0.00-0.50); Eosinophils % (auto) 12.7 %; Hematocrit (blood only) 38.2 % (42.0-52.0); Hemoglobin 13.5 g/dl (14.0-18.0); Immature Granulocytes # (auto) 0.02 K/uL (0.01-0.20); Immature Granulocytes % (auto) 0.4 %; Lymphocytes # (auto) 1.31 K/uL (1.20-3.40); Lymphocytes % (auto) 26.4 %; Mean Corpuscular Hemoglobin 34.4 pg (25.0-34.0); Mean Corpuscular Hgb Conc 35.3 g/dL (32.0-36.0); Mean Corpuscular Volume 97.4 fL (80.0-100.0); Mean Platelet Volume 12.5 fL (9.4-12.4); Monocytes # (auto) 0.75 K/uL (0.11-0.59); Monocytes % (auto) 15.1 %; Neutrophils # (auto) 2.19 K/uL (1.40-6.50); Neutrophils % (auto) 44.2 %; Platelet Count 41 K/uL (130-400); RDW Coefficient of Variation 14.5 % (11.5-14.5); RDW Standard Deviation 52.1 fL (36.4-46.3); Red Blood Count 3.92 M/uL (4.70-6.10); White Blood Count 4.96 K/ul (4.8-10.8)
[2024-07-05 07:01] LABS: Albumin Globulin Ratio 1.2 (0.9-2); Albumin Level 3.1 gm/dl (3.4-5.0); BUN Creatinine Ratio 15.2 (10-20); Bilirubin,Total 2.6 mg/dl (0.2-1.0); Calcium 8.2 mg/dl (8.6-10.3); Globulin 2.6 gm/dl (2.5-4.0); Potassium 3.6 mmol/L (3.5-5.1); Total Protein 5.7 gm/dl (6.0-8.3)
--- OUTSIDE RECORDS SUMMARY | 2024-07-05 07:27 | External Medical Summary | Summary of Care ---
Author Name Unknown Organization [facility] Address [address] [place] [address] Phone [phone] Care Team Providers Care Electrician Apprentice Powerhouse Name Role Phone Rao Ochoa MD Primary Care Provider [phone] Reason for Referral * Evaluate & Treat - Unlimited Visits (Within 30 days (routine)) - Authorized Specialty Diagnoses / Procedures Referred By Pj hernandez Referred To Contact Gastroenterology Diagnoses Hepatic encephalopathy (HCC) Steatosis of liver Secondary esophageal varices without bleeding (HCC) Alcoholic cirrhosis of liver without ascites (HCC) Rao Ochoa MD [address] [place] [address] Phone: tel: fax: Referral ID Status Reason Start Date Expiration Date Visits Requested Visits Authorized [id number] Authorized Specialty Services Required 06/25/2024 [id number] Question Answer Referral Priority Within 30 days (routine) Where should this appointment be scheduled? [facility] For what condition is the patient being referred? Liver conditions Reason for Visit * Reason Onset Date Comments Referral 06/24/2024 Hepatology Encounter Details Date Type Department Care Team (Late st Contact Info) Description 06/24/2024 Telephone [facility] Bertha Kim [address] [place] [phone] Rao Ochoa MD [address] [place] [address] Referral (Hepatology ) Allergies Active Allergy Reactions Criticality Noted Date Comments Other Allergy (See Comments) Anaphylaxis High 06/21/2018 Bee stings- swelling documented as of this encounter (statuses as of 06/28/2024) Medications Iron (Ferrous Sulfate) 325 (65 Fe) MG Oral Tablet Take by mouth. Activ e Diclofenac Sodium 1 % External Gel (Voltaren) Apply topically to affected area 2 times a day. Apply to area lateral to left hip 150 g 5 3 Active traZODone HCl 50 MG Oral [...] 4 Active Lactulose 10 GM/15ML Oral Solution (Constulose)Kaylin cations:Hyperamm onemia (HCC) Take 30 mL by mouth in the morning and 30 mL at noon and 30 mL in the evening and 30 mL before bedtime. 946 mL 11 4 Active DULoxetine HCl 30 MG Oral Capsule Delayed Release Particles (Cymbalta) Take 1 Capsule by mouth in the morning. Do not cut, crush or chew. 30 Capsule 5 4 Active Atorvastatin Calcium 20 MG Oral Tablet (Lipitor)Indicat ions:Dyslipidemi a Take 1 Tablet by mouth in the morning. 90 Tablet 1 5 Active Gabapentin 100 MG Oral Capsule (Neurontin)Indic ations:Complaint of paresthesia take 1 capsule by mouth every morning and AT NOON and BEFORE BEDTIME 90 Capsule 5 5 Active Magnesium Oxide -Mg Supplement 400 (240 Mg) MG Oral Tablet (Mag-Ox)Indicati ons:Hypomagnesem ia take 1 tablet by mouth IN THE MORNING AND BEFORE BEDTIME 180 Tablet 5 Active Pantoprazole Sodium 40 MG Oral Tablet Delayed Release (Protonix)Indica tions:Gastroesop hageal reflux disease Take 1 Tablet by mouth in the morning and 1 Tablet before bedtime. 180 Tablet 1 5 Active cloNIDine HCl 0.1 MG Oral Tablet (Catapres) Take 1 Tablet by mouth in the morning and 1 Tablet before bedtime. 60 Tablet 11 5 Active Hospital, Clinic, or Other Facility Administered Medication Ordered Dose Route Frequency Start Date End Date Status albuterol sulfate (PROVENTIL) (2.5 MG/3ML) 0.083% inhalation solution 2.5 mgIndications:SOB (shortness of breath) 2.5 mg NEBULIZER Q4H PRN 05/10/2018 Act guzman documented as of this encounter (statuses as of 06/28/2024) Active Problems Problem Noted Date Diagnosed Date Splenomegaly, not elsewhere classified 5 Peripheral polyneuropathy 04/29/2024 Spondylolysis, lumbar region 04/29/2024 Hepatic encephalopathy 07/31/2023 S/P hip replacement, left 05/22/2023 Esophageal varices without bleeding 05/22/2023 Avascular necrosis of bone of left hip 4 Hypoproliferative anemia 05/10/2023 DDD (degenerative disc disease), lumbosacral 10/2023 Other intervertebral disc displacement, lumbosac ral region 05/10/2023 Age-related nuclear cataract, bilateral 02/07/20 AAA (abdominal [...] heart disease 002 Overview (11/29/2001): father had ME's in 40's Gastroesophageal reflux disease with esophagitis documented as of this encounter (statuses as of 06/28/2024) Resolved Problems Problem Noted Date Diagnosed Date Resolved Date History of alcohol abuse 05/22/2023 Major depressive disorder with single episode 02/07/20 23 04/29/2024 Alcohol dependence, uncomplicated 01/17/2023 05/22/2023 Avascular necrosis of bone of hip 05/10/2022 05/22/2023 Chronic alcohol abuse 06/17/20212023 Gastro-esophageal reflux dis ease without esophagitis 04/13/2020 01/16/2024 Facial swelling 06/09/2017 08/07/2019 Urticaria 06/09/2017 08/07/2019 Intestinal obstruction 05/09/201203/02 CLASSICAL MIGRAINE WITHOU ME NTION OF INTRACTABLE MIGRAINE 11/29/2001 08/07/2019 Undiagnosed cardiac murmurs 11/29/2001 03/02/2017 Overview (11/29/2001): Not Ross on 11/29/01 documented as of this encounter (statuses as of 06/28/2024) Immunizations Name Administration Dates Next Due HEP A - Hepatitis A (Adult > 18 yrs) 06/06/2020 Pneumococcal Conjugate Vacci ne, 20-valent ([id number]) 06/24/2022 Seasonal Influenza Virus Vac cine, Unspecified [...] Date Recorded PHQ Adult Total Score 0 04/25/2024 Hunger Vital Sign Answer Date Recorded Within the past 12 months, y ou worried that your food would run out before you got the money to buy more. Never true 04/25/19 25 Within the past 12 months, t he food you bought just didn't last and you didn't have money to get more. Never true 04/25/2024 Childcare Answer Date Recorded Do you feel overwhelmed with taking care of a child, family member or friend? No 04/25/2024 Does your family need help f inding childcare? (Household - for ages 0-17 years) Not on file 04/25/2024 Clothing Answer Date Recorded Have you been unable to get clothing when it was really needed? No 04/25/2024 Is your family able to get c lothes or diapers when needed? (Household - for ages 0-17 years) Not on file 04/25/2024 Personal Safety Answer Date Recorded Do you feel unsafe or have concerns for your saf ety? No 04/25/2024 Do you have concerns for you r family's safety? (Household - for ages 0-17 years) Not on file 04/25/2024 Utilities Answer Date Recorded Do you have trouble paying y our heating, water, or electric bill? Yes 04/25/2024 Is your family able to pay t he heat, water, or electric bill? (Household - for ages 0-17 years) Not on file 04/25/2024 Does your family have access to good internet? (Household - for ages 0-17 years) Not on file 04/25/2024 Employment Status Answer Date Recorded Are you unemployed or without regular income? No 04/25/2024 Does the household have a re gular source of income? (Household - for ages 0-17 years) Not on file 04/25/2024 Social Connections Answer Date Recorded How often do you feel lonely or isolated from th ose around you? Never 04/25/2024 Financial Resource Strain Answer Date R ecorded Do you have any trouble payi ng for your medications, or do you think you might in the future? No 04/25/2024 Does your family have troubl e paying for medicine? (Household - for ages 0-17 years) Not on file 04/25/2024 Transportation Needs Answer Date Record ed Do you have trouble getting a ride to medical visits or work? (Adult - for ages 18 years and over) Not on file 04/25/2024 Does your family have a hard time getting a ride to doctors visits? (Household - for ages 0-17 years) Not on file 04/25/2024 Has lack of transportation k ept you from medical appointments, meetings, work, or from getting things needed for daily living? Check all that apply. No 04/25/2024 Do you (or your family) have trouble finding or paying for a ride (transportation)? (Household - for ages 0-17 years) Not on file 04/25/2024 Housing Stability Answer Date Recorded Do you currently live in a s helter or have no steady place to sleep at night? No 04/25/2024 Do you think you are at risk of becoming homeless? (Adult - for ages 18 years and over) Not on file 04/25/2024 Does your family worry about paying for your home or becoming homeless? (Household - for ages 0-17 years) Not on file 0 04/25/2024 Are you homeless or worried that you might be in the future? No 04/25/2024 Are you (or your family) justen eless or worried that you might be in the future? (Household - for ages 0-17 years) Not on file Food Insecurity Answer Date Recorded Do you need food for this week? No 04/25/2024 Are you able to get enough f ood for your family? (Household - for ages 0-17 years) Not on file 04/25/2024 Does your family need food t his week? (Household - for ages 0-17 years) Not on file 04/25/2024 Do you always have enough fo od for your family? (Household - for ages 0-17 years) Not on file 04/25/2024 Food Insecurity Answer Date Recorded Within the past 12 months, y ou worried that your food would run out before you got the money to buy more. Never true 04/25/19 25 Within the past 12 months, t he food you bought just didn't last and you didn't have money to get more. Never true 04/25/2024 Do you need food for this week? 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 Answer Date of Assessment Author Yes 08/23/2021 12:08 PM EDT documented as of this encounter Miscellaneous Notes * Telephone Encounter - Maylin Sutton OSA - 06/28/2024 10:12 AM EDT Done. 06/28/2024 * Telephone Encounter - Maylin Sutton OSA - 06/25/2024 4:15 PM EDT LMOM to schedule. 06/25/2024 * Telephone Encounter - Rao Ochoa MD - 06/25/2024 12:09 PM EDT Please schedule * Telephone Encounter - Randi Morales OSA - 06/24/2024 12:22 PM EDT Has the patient been seen for this problem? (Y/N)?: yes If No, an appt needs to be scheduled before a referral will be placed (exception: proceed with referral request if referral request is for a yearly routine appointment with speciality) Patient Name: Mauro Liu Patient Primary care provider: Rao Ochoa MD Does this need to be an insurance referral (Y/N)?: yes If Yes, does the insurance referral need to be placed into the [employer] system? Name of preferred specialist: [facility] Type of specialist: Hepatology Location of specialist: [facility] Specialist's Phone #: n/a Specialist's Fax #: n/a Reason for visit: liver Date of visit: needs referral prior to scheduling. documented in this encounter Plan of Treatment Upcoming Encounters Date Type Department Care Team (Late st Contact Info) Description 08/21/2024 10:45 AM EDT Imaging Radiology [facility] [address] [place] [phone] 09/18/2024 3:40 PM EDT Office Visit Gastroenterology, [facility] [address] [place] [phone] Ki Huang MD [address] [place] [address] 10/16/2024 3:40 PM EDT Office Visit [facility] [address] [facility] [facility] [place] [address] Britni De La Cruz MD [address] [place] [address] 10/31/2024 8:40 AM EDT Office Visit Hepatology, [facility] [address] [place] [phone] Jena Camargo MD [address] [place] [place] [address] Scheduled Procedures Name Priority Associated Diagnoses Date/Ti me ESOPHAGOGASTRODUODENOSCOPY ( EGD), FLEXIBLE, TRANSORAL, DIAGNOSTIC Recall Portal hypertensive gastropathy (HCC) Esophageal varices (HCC) Scheduled Referrals Name Type Priority Associated Diagnoses Orde r Schedule HEPATOLOGY REFERRAL OP Referral Within 30 days (routine) Hepatic encephalopathy (HCC) Steatosis of liver Secondary esophageal varices without bleeding (HCC) Alcoholic cirrhosis of liver without ascites (HCC) Ordered: 06/25/2024 Health Maintenance Due Date Last Done Comments Cologuard 2009 Fecal Occult Blood Test 2009 Sigmoidoscopy 2009 COVID-19 Vaccine ( season) 2023 Depression Screening 04/25/2025 04/25/2024 GFR 05/15/2025 05/15/2024, 02/0 06/2024, 04/23/2024, Additional history exists Albumin/Creatinine Ratio 07/09/2026 07/10/2023 DTap/Tdap Vaccines (2 - Td or Tdap) 02/15/2027 02/15/2017 Diabetes Screening 05/15/2027 05/15/2024, 0 05/06/2024, 04/23/2024, Additional history exists Colonoscopy 06/11/2027 06/10/2024, 06/01, 05/13/2024, Additional history exists Colorectal Cancer Screening 06/11/2027 Pneumococcal Vaccine: 50+ Years Completed 06/24/2022 Zoster Vaccines Discontinued 08/23/2023 Influenza Vaccine (FLU shot) Completed 01/03/2024, 12/08/2022, 12/14/2021, Additional history exists HPV (Gardasil) Vaccine Aged Out No lo nger eligible based on patient's age to complete this topic Hepatitis B Vaccine Discontinued MENINGOCOCCAL (MENACTRA/MENVEO) Aged Out No longer eligible based on patient's age to complete this topic Meningitis B Vaccine (Bexsero/Trumemba) Aged Out No longer eligible based on patient's age to complete this topic documented as of this encounter Medical Devices Not on filedocumented as of this encounter Visit Diagnoses Diagnosis Alcoholic cirrhosis of liver without ascites (HCC)- Primary Alcoholic cirrhosis of liver Hepatic encephalopathy (HCC) Hepatic encephalopathy Steatosis of liver Other chronic nonalcoholic liver disease Secondary esophageal varices without bleeding (HCC) Esophageal varices without mention of bleeding in diseases classified elsewhere documented in this encounter Advance Directives * Full Code (Latest Code Status on File) Date Activated Date Inactivated Comments 05/13/2024 1:44 PM 05/13/2024 6:09 PM This order r eflects the patients wishes and were consensually agreed upon. Question Answer Comments Discussion of Advance Direct jerry occurred with: Not Discussed due to patient's condition * Full Code Date Activated Date Inactivated Comments 05/13/2024 11:59 AM 05/13/2024 1:44 PM This order reflects the patients wishes and were consensually agreed upon. Question Answer Comments Discussion of Advance Direct jerry occurred with: Not Discussed due to patient's condition Healthcare Agents on File Name Relationship Healthcare Agent Relationship Communication Carmen Marr Significant Other Health Care Elevator Adjuster (appointed verbally by patient or by statute hierarchy) Care Teams Electrician Apprentice Powerhouse Relationship Specialty Start Date End Date Rao Ochoa MD [address] [place] [address] PCP - General Internal Medicine 02/05/24 documented as of this encounter
--- OUTSIDE RECORDS SUMMARY | 2024-07-05 07:27 | External Medical Summary | Summary of Care ---
Author Name Unknown Organization [facility] Address [address] [facility] [place] [address] Phone [phone] Care Team Providers Care Wireless Watcher Name Role Phone Rao Ochoa MD Primary Care Provider [phone] Reason for Referral * Evaluate & Treat - Unlimited Visits (Within 30 days (routine)) - Authorized Specialty Diagnoses / Procedures Referred By Pj hernandez Referred To Contact Gastroenterology Diagnoses Hepatic encephalopathy (HCC) Steatosis of liver Secondary esophageal varices without bleeding (HCC) Alcoholic cirrhosis of liver without ascites (HCC) Rao Ochoa MD [address] [place] [address] Phone: tel: fax: Referral ID Status Reason Start Date Expiration Date Visits Requested Visits Authorized [id number] Authorized Specialty Services Required 06/25/2024 999 [id number] Question Answer Referral Priority Within 30 days (routine) Where should this appointment be scheduled? [facility] For what condition is the patient being referred? Liver conditions Reason for Visit * Reason Onset Date Comments Referral 06/24/2024 Hepatology Encounter Details Date Type Department Care Team (Late st Contact Info) Description 06/24/2024 Telephone [facility] Bertha Kim [address] [place] [phone] Rao Ochoa MD [address] [place] [address] Referral (Hepatology ) Allergies Active Allergy Reactions Criticality Noted Date Comments Other Allergy (See Comments) Anaphylaxis High 06/21/2018 Bee stings- swelling documented as of this encounter (statuses as of 06/26/2024) Medications Iron (Ferrous Sulfate) 325 (65 Fe) [...] as of this encounter (statuses as of 06/26/2024) Active Problems Problem Noted Date Diagnosed Date [...] heart disease 002 Overview (11/29/2001): father had [place]'s in 40's Gastroesophageal reflux disease with esophagitis documented as of this encounter (statuses as of 06/26/2024) Resolved Problems Problem Noted Date Diagnosed Date [...] cardiac murmurs 11/29/2001 03/02/2017 Overview (11/29/2001): Not [place] on 11/29/01 documented as of this encounter (statuses as of 06/26/2024) Immunizations Name Administration Dates Next Due HEP A - Hepatitis A (Adult > 18 yrs) 06/06/2020 Pneumococcal Conjugate Vacci ne, 20-valent ([id number]) 06/24/2022 Seasonal Influenza Virus Vac cine, Unspecified [...] money to buy more. 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 Name of preferred specialist: [facility] Type of specialist: Hepatology Location of specialist: [facility] Specialist's Phone #: n/a Specialist's Fax #: n/a Reason for visit: liver Date of visit: needs referral prior to scheduling. documented in this encounter Plan of Treatment Upcoming Encounters Date Type Department Care Team (Late st Contact Info) Description 08/21/2024 10:45 AM EDT Imaging Radiology [facility] [address] [place] [phone] 09/18/2024 3:40 PM EDT Office Visit Gastroenterology, [facility] [address] [place] [phone] Ki Huang MD [address] [place] [address] 10/16/2024 3:40 PM EDT Office Visit Neurology [facility] [address] [place] [address] Britni De La Cruz MD [address] [place] [address] [place] [address] Scheduled Procedures Name Priority Associated Diagnoses Date/Ti [...] Depression Screening 04/25/2025 04/25/2024 GFR 05/15/2025 05/15/2024, /06/2024, 04/23/2024, Additional history exists Albumin/Creatinine Ratio 07/09/2026 [...] Communication Carmen Marr Significant Other Health Care Silver Chaser (appointed verbally by patient or by statute hierarchy) Care Teams Wireless Watcher Relationship Specialty Start Date End Date Rao Ochoa MD [address] [facility] [address] [place] [address] PCP - General Internal Medicine 02/05/24 documented as of this encounter
--- OUTSIDE RECORDS SUMMARY | 2024-07-05 07:27 | External Medical Summary | Summary of Care ---
Author Name Unknown Organization [facility] Address [address] [place] [address] Phone [phone] Care Team Providers Care Forensic Anthropologist Name Role Phone Rao Ochoa MD Primary Care Provider [phone] Encounter Details Date Type Department Care Team (Late st Contact Info) Description 05/13/2024 Telephone Gastroenterology, [place] [address] [place] [address] Jena Camargo MD [facility] [place] [address] Allergies Active Allergy Reactions Criticality Noted Date Comments Other Allergy (See Comments) Anaphylaxis High 06/21/2018 Bee stings- swelling documented as of this encounter (statuses as of 07/01/2024) Medications Iron (Ferrous Sulfate) 325 (65 Fe) [...] as of this encounter (statuses as of 07/01/2024) Active Problems Problem Noted Date Diagnosed Date Splenomegaly, not elsewhere classified Peripheral polyneuropathy 04/29/2024 Spondylolysis, lumbar region 04/29/2024 [...] heart disease 002 Overview (11/29/2001): father had [place]'s in 40's Gastroesophageal reflux disease with esophagitis documented as of this encounter (statuses as of 07/01/2024) Resolved Problems Problem Noted Date Diagnosed Date [...] cardiac murmurs 11/29/2001 03/02/2017 Overview (11/29/2001): Not [place] on 11/29/01 documented as of this encounter (statuses as of 07/01/2024) Immunizations Name Administration Dates Next Due HEP A - Hepatitis A (Adult > 18 yrs) 06/06/2020 Pneumococcal Conjugate Vacci ne, 20-valent ([id number]) 06/24/2022 Seasonal Influenza Virus Vac cine, Unspecified [...] 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 Answer Date of Assessment Author Yes 08/23/2021 12:08 PM EDT documented as of this encounter Miscellaneous Notes * Telephone Encounter - Linnette Christianson OSA - 07/01/2024 11:04 AM EDT Pt was done on 06/10/24. * Telephone Encounter - Estefania Valentine OSA - 05/13/2024 3:34 PM EST lmm * Telephone Encounter - Estefania Valentine OSA - 05/13/2024 2:10 PM EST ----- Message from Alen Garcia DO sent at 05/13/2024 1:44 PM EST ----- Patient should have a repeat colonoscopy scheduled as it was an insufficient prep. This can be doneby any provider, I believe he normally gets a follow up by Dr. Camargo. I would suggest a 2 day prep with the next attempt documented in this encounter Plan of Treatment Upcoming Encounters Date Type Department Care Team (Sara Contact Info) Description 08/21/2024 10:45 AM EDT Imaging Radiology [facility] [address] [place] [phone] 09/18/2024 3:40 PM EDT Office Visit Gastroenterology, [facility] [address] [place] [phone] Ki Huang MD [address] [place] [address] 10/16/2024 3:40 PM EDT Office Visit Neu[facility] [address] [place] [address] Britni De La Cruz MD [address] [place] [address] 10/31/2024 8:40 AM EDT Office Visit Hepatology, [facility] [address] [place] [phone] Jena Camargo MD [address] [place] [id number] Scheduled Procedures Name Priority Associated Diagnoses Date/Ti me ESOPHAGOGASTRODUODENOSCOPY ( EGD), FLEXIBLE, TRANSORAL, DIAGNOSTIC Recall Portal hypertensive gastropathy (HCC) Esophageal varices (HCC) Health Maintenance Due Date Last Done Comments Cologuard 2009 Fecal Occult Blood Test 2009 Sigmoidoscopy 2009 COVID-19 Vaccine ( season) 2023 Depression Screening 04/25/2025 04/25/2024 GFR 05/15/2025 05/15/2024, 06/2024, 04/23/2024, Additional history exists Albumin/Creatinine Ratio [...] Not on filedocumented as of this encounter Advance Directives * Full Code [...] Communication Carmen Marr Significant Other Health Care Edge Finisher (appointed verbally by patient or by statute hierarchy) Care Teams Forensic Anthropologist Relationship Specialty Start Date End Date Rao Ochoa MD [address] [place] [address] PCP - General Internal Medicine 02/05/24 documented as of this encounter
--- OUTSIDE RECORDS SUMMARY | 2024-07-05 07:27 | External Medical Summary | Summary of Care ---
Author Name Unknown Organization [facility] Address [address] [facility] [place] [address] Phone [phone] Care Team Providers Care Warm In Worker Name Role Phone Rao Ochoa MD Primary Care Provider [phone] Reason for Referral * Evaluate & Treat - Unlimited Visits (Within 30 days (routine)) - Authorized Specialty Diagnoses / Procedures Referred By Pj hernandez Referred To Contact Gastroenterology Diagnoses Hepatic encephalopathy (HCC) Steatosis of liver Secondary esophageal varices without bleeding (HCC) Alcoholic cirrhosis of liver without ascites (HCC) Rao Ochoa MD [address] [place] [address] Phone: tel: fax: Referral ID Status Reason Start Date Expiration Date Visits Requested Visits Authorized [id number] Authorized Specialty Services Required 06/25/[phone] Question Answer Referral Priority Within 30 days (routine) Where should this appointment be scheduled? [facility] For what condition is the patient being referred? Liver conditions Reason for Visit * Reason Onset Date Comments Referral 06/24/2024 Hepatology Encounter Details Date Type Department Care Team (Late st Contact Info) Description 06/24/2024 Telephone [facility] Bertha Kim [address] [place] [phone] Rao Ochoa MD [address] [place] [address] Referral (Hepatology ) Allergies Active Allergy Reactions Criticality Noted Date Comments Other Allergy (See Comments) Anaphylaxis High 06/21/2018 Bee stings- swelling documented as of this encounter (statuses as of 06/25/2024) Medications Iron (Ferrous Sulfate) 325 (65 Fe) [...] as of this encounter (statuses as of 06/25/2024) Active Problems Problem Noted Date Diagnosed Date [...] heart disease 002 Overview (11/29/2001): father had [place]'s in 40's Gastroesophageal reflux disease with esophagitis documented as of this encounter (statuses as of 06/25/2024) Resolved Problems Problem Noted Date Diagnosed Date [...] cardiac murmurs 11/29/2001 03/02/2017 Overview (11/29/2001): Not [place] on 11/29/01 documented as of this encounter (statuses as of 06/25/2024) Immunizations Name Administration Dates Next Due HEP A - Hepatitis A (Adult > 18 yrs) 06/06/2020 Pneumococcal Conjugate Vacci ne, 20-valent ([id number]) 06/24/2022 Seasonal Influenza Virus Vac cine, Unspecified [...] Job 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 Name of preferred specialist: CHADWICK Type of specialist: Hepatology Location of specialist: [facility] Specialist's Phone #: n/a Specialist's Fax #: n/a Reason for visit: liver Date of visit: needs referral prior to scheduling. documented in this encounter Plan of Treatment Upcoming Encounters Date Type Department Care Team (Late st Contact Info) Description 08/21/2024 10:45 AM EDT Imaging Radiology [facility] [address] [place] [phone] 09/18/2024 3:40 PM EDT Office Visit Gastroenterology, [facility] [address] [place] [phone] Ki Huang MD [address] [place] [address] 10/16/2024 3:40 PM EDT Office Visit Neurology [facility] [address] [place] [address] Britni De La Cruz MD [address] [place] [address] [place] [address] Scheduled Procedures Name Priority Associated Diagnoses Date/Ti [...] 1:44 PM 05/13/2024 6:09 PM This order reflects the patients wishes [...] File Name Relationship Healthcare Agent Relationship Communication Caremn Withalva Significant Other Health Care Tinsmith Apprentice (appointed verbally by patient or by statute hierarchy) Care Teams Warm In Worker Relationship Specialty Start Date End Date Rao Ochoa MD [address] [place] [address] PCP - General Internal Medicine 02/05/24 documented as of this encounter
--- OUTSIDE RECORDS SUMMARY | 2024-07-05 07:28 | External Medical Summary | Summary of Care ---
Author Name Unknown Organization [facility] Address [address] [place] [address] Phone [phone] Care Team Providers Care Reconciliation Accountant Name Role Phone Rao Ochoa MD Primary Care Provider [phone] Encounter Details Date Type Department Care Team (Late st Contact Info) Description 06/24/2024 Orders Only Outcomes Research Department [address] [place], [place] [id number] Edna Redman CHRA [facility] Other*[id number] Allergies Active Allergy Reactions Criticality Noted Date Comments Other Allergy (See Comments) Anaphylaxis High 06/21/2018 Bee stings- swelling documented as of this encounter (statuses as of 06/24/2024) Medications Iron (Ferrous Sulfate) 325 (65 Fe) [...] as of this encounter (statuses as of 06/24/2024) Active Problems Problem Noted Date Diagnosed Date [...] as of this encounter (statuses as of 06/24/2024) Resolved Problems Problem Noted Date Diagnosed Date [...] cardiac murmurs 11/29/2001 03/02/2017 Overview (11/29/2001): Not [place] on 11/29/01 documented as of this encounter (statuses as of 06/24/2024) Immunizations Name Administration Dates Next Due HEP A - Hepatitis A (Adult > 18 yrs) 06/06/2020 Pneumococcal Conjugate Vacci ne, 20-valent ([id number]) 06/24/2022 Seasonal Influenza Virus Vac cine, Unspecified [...] 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 Not on file Not [...] Description 08/21/2024 10:45 AM EDT Imaging Radiology [facility] [address] [place] [phone] 09/18/2024 3:40 PM EDT Office Visit Gastroenterology, [facility] [address] [place] [phone] Ki Huang MD [address] [place] [address] 10/16/2024 3:40 PM EDT Office Visit Neurology [facility] [address] [place] [address] Britni De La Cruz MD [address] [facility] [place] [address] Scheduled Orders Name Type Priority Associated Diagnoses Orde r Schedule MYCODE SUBSEQUENT ADULT Lab Routine [employer] Other*[id number] Every 6 Months for 2 Occurrences starting 06/24/2024 until 07/14/2025 Scheduled Procedures Name Priority Associated Diagnoses Date/Ti [...] this encounter Visit Diagnoses Diagnosis [employer] Other*[id number] documented in this encounter Advance Directives * [...] Communication Carmen Marr Significant Other Health Care Material Man (appointed verbally by patient or by statute hierarchy) Care Teams Reconciliation Accountant Relationship Specialty Start Date End Date Rao Ochoa MD [address] [place] [address] PCP - General Internal Medicine 02/05/24 documented as of this encounter
--- OUTSIDE RECORDS SUMMARY | 2024-07-05 07:28 | External Medical Summary | Summary of Care ---
Author Name Unknown Organization [facility] Address [address] [facility] [place] [address] Phone [phone] Care Team Providers Care Electrical Manufacturing Engineer Name Role Phone Rao Ochoa MD Primary Care Provider [phone] Reason for Visit * Auth/Cert Specialty Diagnoses / Procedures Referred By Pj hernandez Referred To Contact Diagnoses History of colon polyps Rectal bleeding History of colon polyps [Z86.0100] Rectal bleeding [K62.5] Procedures COLONOSCOPY, DIAGNOSTIC (RECTUM) COLONOSCOPY FLEXIBLE PROXIMAL DIAGNOSTIC Marilou Andrews DO [address] [place] [address] Phone: tel: fax: OR [facility] [address] [place] [address] Phone: tel: Referral ID Status Reason Start Date Expiration Date Visits Re quested Visits Authorized [id number] Encounter Details Date Type Department Care Team (Latest Contact Info) Description 06/10/2024 10:13 AM EDT - 06/10/2024 12:19 PM EDT Hospital Encounter OR [facility], Operating Room, [facility] - 4th Floor [address] [place] [phone] Marilou Andrews DO [address] [place] [id number] Colonoscopy Discharge Disposition: Home - Self Care Allergies Active Allergy Reactions Criticality Noted Date Comments Other Allergy (See Comments) Anaphylaxis High 06/21/2018 Bee stings- swelling documented as of this encounter (statuses as of 06/11/2024) Medications Iron (Ferrous Sulfate) 325 (65 Fe) [...] before bedtime. 60 Tablet 11 5 Active documented as of this encounter (statuses as of 06/11/2024) Active Problems Problem Noted Date Diagnosed Date [...] as of this encounter (statuses as of 06/11/2024) Resolved Problems Problem Noted Date Diagnosed Date [...] cardiac murmurs 11/29/2001 03/02/2017 Overview (11/29/2001): Not Assumption on 11/29/01 documented as of this encounter (statuses as of 06/11/2024) Immunizations Name Administration Dates Next Due HEP A - Hepatitis A (Adult > 18 yrs) 06/06/2020 Pneumococcal Conjugate Vacci ne, 20-valent ([id number]) 06/24/2022 Seasonal Influenza Virus Vac cine, Unspecified [...] 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 Not on file Not on fi le documented as of this encounter Last Filed Vital Signs Vital Sign Reading Time Taken Comments Blood Pressure 127/78 06/10/2024 12:14 PM EDT Pulse 85 06/10/2024 12:14 PM EDT Temperature 36.7 C (98.1 F) 06/10/2024 12:14 PM E DT Respiratory Rate 18 06/10/2024 12:14 PM EDT Oxygen Saturation 99% 06/10/2024 12:14 PM EDT Inhaled Oxygen Concentration - - Weight 97.1 kg (214 lb) 05/31/2024 10:16 AM EST Height 168.9 cm (5' 6.5") 05/31/2024 10:16 AM ES T Body Mass Index 34.02 05/31/2024 10:16 AM EST documented in this encounter Functional Status * Does this person have serious difficulty walking or climbing stairs? Answer Date of Assessment Author Yes 08/23/2021 12:08 PM EDT documented as of this encounter H&P Notes * Marilou Andrews, DO - 06/10/2024 11:03 AM EDT Endoscopy Pre-Procedure Assessment Name: Mauro Liu Date: 06/10/2024 Time: 11:03 AM Procedure: Colonoscopy; with Indication(s) of colon polyp surveillance Endoscopy Pre-Procedure Assessment: Prior to the procedure, the patient was identified. The patient's history, medications and allergies were reviewed as per the Anesthesia Assessment. The patient is competent. The risks and benefits of the proposed procedure and the planned sedation were discussed with the patient. All questions were answered and informed consent for the procedure was obtained. This patient has undergone a preprocedural evaluation. A determination has been made to proceed with the planned procedure under [facility] procedural guidelines and the [facility] Non-Emergent, Elective Medical Services and Treatment Recommendations (published on 07-09-19). The community and hospital prevalence of COVID-19 has been discussed as well as this patient's specific risks associated with SARS-CoV-19 infection. Based upon the clinical acuity and patient-specific care considerations, this procedure is deemed a Tier II - Intermediate acuity treatment or service with either progression or the threat of progressive disease related to the delay in treatment. Not providing the service has the potential for increasing morbidity or mortality. BP 135/83 | Pulse 91 | Temp 36.8 C (98.2 F) (Temporal Artery) | Resp 18 | Ht 1.689 m (5' 6.5") | Wt 97.1 kg (214 lb) | SpO2 94% | BMI 34.02 kg/m | BSA 2.13 m Prior to Admission medications Medication Sig Last Dose Discont. cloNIDine HCl 0.1 MG Oral Tablet (Catapres) Take 1 Tablet by mouth in the morning and 1 Tablet before bedtime. 06/10/2024 Morning Pantoprazole Sodium 40 MG Oral Tablet Delayed Release (Protonix) Take 1 Tablet by mouth in the morning and 1 Tablet before bedtime. 06/10/2024 Morning Magnesium Oxide -Mg Supplement 400 (240 Mg) MG Oral Tablet (Mag-Ox) take 1 tablet by mouth IN THE MORNING AND BEFORE BEDTIME Past Week Gabapentin 100 MG Oral Capsule (Neurontin) take 1 capsule by mouth every morning and AT NOON and BEFORE BEDTIME 06/10/2024 Morning Atorvastatin Calcium 20 MG Oral Tablet (Lipitor) Take 1 Tablet by mouth in the morning. 06/10/2024 Morning DULoxetine HCl 30 MG Oral Capsule Delayed Release Particles (Cymbalta) Take 1 Capsule by mouth in the morning. Do not cut, crush or chew. 06/10/2024 Morning Lactulose 10 GM/15ML Oral Solution (Constulose) Take 30 mL by mouth in the morning and 30 mL at noon and 30 mL in the evening and 30 mL before bedtime. 06/09/2024 Gabapentin 300 MG Oral Capsule (Neurontin) Take 1 Capsule by mouth at bedtime. 06/09/2024 rifAXIMin 550 MG Oral Tablet (Xifaxan) take 1 tablet by mouth IN THE MORNING then take 1 tablet by mouth BEFORE BEDTIME 06/10/2024 Morning Furosemide 40 MG Oral Tablet (Lasix) Take 1 tab by mouth daily 06/10/2024 Morning Zinc Acetate 50 MG Oral Capsule Take by mouth 2 times a day. Past Week LORazepam 0.5 MG Oral Tablet (Ativan) Take 1 Tablet by mouth every 6 hours as needed. 06/09/2024 Spironolactone 25 MG Oral Tablet (Aldactone) Take 1 Tablet by mouth in the morning. 06/10/2024 Morning traZODone HCl 50 MG Oral Tablet (Desyrel) Take 2 Tablets by mouth at bedtime. 06/09/2024 Diclofenac Sodium 1 % External Gel (Voltaren) Apply topically to affected area 2 times a day. Applyto area lateral to left hip Unknown Iron (Ferrous Sulfate) 325 (65 Fe) MG Oral Tablet Take by mouth. Past Week EpiPen 2-Dave 0.3 MG/0.3ML Injection Solution Auto-injector For a severe reaction: Place orange end against the outer thigh, press firmly, hold in place for 10 seconds and go to the Emergency room. Over 30 Days Review of patient's allergies indicates: Allergen Reactions Other Allergy (See Comments) Anaphylaxis Bee stings- swelling Physical Exam: Mental Status Examination: alert and oriented. General: nad, calm Airway Examination: normal oropharyngeal airway and neck mobility. Respiratory Examination: symmetrical excursion Cardiac: RRR, no murmurs Abd:soft/ntd ASA Grade: III - A patient with severe systemic disease. After reviewing the risks and benefits, the patient was deemed in satisfactory condition to undergothe procedure. The anesthesia plan was to use general anesthesia. Marilou Andrews DO Gastroenterology and Hepatology 06/10/2024 documented in this encounter Procedure Notes * Keyanna Gordon CRNP - 06/10/2024 11:13 AM EDTAssociated Order(s): COLONOSCOPY [facility] Patient Name: Mauro Liu Procedure Date: 06/10/2024 11:13 AM Date of : 1965 Admit Type: Outpatient Note Status: Finalized Date of : 1965 Admit Type: Outpatient Age: 58 Room: OR 5 Gender: Male Note Status: Finalized Procedure: Colonoscopy Indications: High risk colon cancer surveillance: Personal history of colonic polyps Providers: Marilou Andrews DO (Doctor) Patient Profile: This is a 58 year old male. Refer to note in patient chart for documentation of history and physical. of note, patients platelet count is 37 today. Pre-procedure discussed increased risk of bleeding. Referring MD: Keyanna Gordon NP, aRo Ochoa MD Medicines: General Anesthesia Complications: No immediate complications. Procedure: Pre-Anesthesia Assessment: - Prior to the procedure, a History and Physical was performed, and patient medications and allergies were reviewed. The risks and benefits of the procedure and the sedation options and risks were discussed with the patient. All questions were answered and informed consent was obtained. Patient identification and proposed procedure were verified by the physician, the nurse and the overlocker in the procedure room. Mental Status Examination: alert and oriented. Airway Examination: Mallampati Class II (the uvula but not tonsillar pillars visualized). Respiratory Examination: clear to auscultation. CV Examination: RRR, no murmurs, no S3 or S4. Prophylactic Antibiotics: The patient does not require prophylactic antibiotics. Prior Anticoagulants: The patient has taken no anticoagulant or antiplatelet agents. ASA Grade Assessment: III - A patient with severe systemic disease. After reviewing the risks and benefits, the patient was deemed in satisfactory condition to undergo the procedure. The anesthesia plan was to use general anesthesia. Immediately prior to administration of medications, the patient was re-assessed for adequacy to receive sedatives. The physical status of the patient was re-assessed after the procedure. After I obtained informed consent, the scope was passed under direct vision. All instruments were visually inspected immediately before and after removal from the patient to ensure they are fully intact. Throughout the procedure, the patient's blood pressure, pulse, and oxygen saturations were monitored continuously. The colonoscopy was performed without difficulty. The patient tolerated the procedure well. The quality of the bowel preparation was good. The PCF-H180AL Colonoscope ([id number]) was introduced through the anus and advanced to the cecum, identified by appendiceal orifice and ileocecal valve. Findings & Specimens: The perianal and digital rectal examinations were normal. Internal hemorrhoids were found during retroflexion. An area of friable mucosa with contact bleeding was found in the entire colon. Impression: - Internal hemorrhoids. - Friability with contact bleeding in the entire examined colon given platelets of 30. - No specimens collected. Recommendation: - Patient has a contact number available for emergencies. The signs and symptoms of potential delayed complications were discussed with the patient. Return to normal activities tomorrow. Written discharge instructions were provided to the patient. - The patient will be observed post-procedure, until all discharge criteria are met. - Discharge patient to home (with escort). - Resume previous diet. - Continue present medications. - Repeat colonoscopy in 3 years for surveillance. Marilou Andrews DO 06/10/2024 11:42:55 AM This report has been signed electronically. Estimated Blood Loss: Estimated blood loss was minimal. documented in this encounter Nursing Notes * Paige Rajan RN - 06/10/2024 11:41 AM EDT Colonoscopy completed in [facility] OR. Abd pressure used. Pt roxanne procedure well. Sedated by COMBINATION MACHINE TOOL OPERATOR. See anesthesia record for VS and medications given. Abd soft. Airway patent. Pt to recovery on L side with HOB elevated. Report to recovery room nurse. Bedside cleaning done. documented in this encounter Plan of Treatment Upcoming Encounters Date Type Department Care Team (Late st Contact Info) Description 06/18/2024 12:40 PM EDT Office Visit Hepatology, [facility] [address] [place] [address] Marilou Andrews DO [address] [place] [address] 08/21/2024 10:45 AM EDT Imaging Radiology [facility] [address] [place] [id number] 09/18/2024 3:40 PM EDT Office Visit Gastroenterology, [facility] [address] [place] [address] Ki Huang MD [address] [place] [address] 10/16/2024 3:40 PM EDT Office Visit Neurology [facility] [address] [facility] [place] [address] Britni De La Cruz MD [address] [facility] [place] [address] Scheduled Procedures Name Priority Associated Diagnoses Date/Ti [...] 04/23/2024, Additional history exists Colonoscopy 06/11/2027 06/10/2024, 05/04, 05/13/2024, Additional history exists Colorectal Cancer Screening [...] Procedure Name Priority Date/Time Associated Diagnosis Comments COLONOSCOPY 06/10/2024 11:13 AM EDT documented in this encounter Results * COLONOSCOPY (06/10/2024 11:13 AM EDT) 06/10/2024 11:1 3 AM EDT Narrative Procedure Note Keyanna Gordon CRNP - 06/10/2024 11:13 AM EDT [facility] Patient Name: Mauro Liu Procedure Date: 06/10/2024 11:13 AM Date of : 1965 Admit Type: Outpatient Note Status:Finalized Date of : 1965 Admit Type: Outpatient Age: 58 Room: OR 5 Gender: Male Note Status: Finalized Procedure: Colonoscopy Indications: High risk colon cancer surveillance: Personalhistory of colonic polyps Providers: Marilou Andrews DO (Doctor) Patient Profile: This is a 58 year old male. Refer to note inpatient chart for documentation of history and physical. of note, patients plateletcount is 37 today. Pre-procedure discussed increased risk of bleeding. Referring MD: Keyanna Gordon NP, Rao Ochoa MD Medicines: General Anesthesia Complications: No immediate complications. Procedure: Pre-Anesthesia Assessment: - Prior to the procedure, a History and Physicalwas performed, and patient medications and allergies were reviewed. The risksand benefits of the procedure and the sedation options and risks were discussed withthe patient. All questions were answered and informed consent was obtained. Patientidentification and proposed procedure were verified by the physician, the nurseand the overlocker in the procedure room. Mental Status Examination: alertand oriented. Airway Examination: Mallampati Class II (the uvula but not tonsillarpillars visualized). Respiratory Examination: clear to auscultation. CV Examination:RRR, no murmurs, no S3 or S4. Prophylactic Antibiotics: The patient does notrequire prophylactic antibiotics. Prior Anticoagulants: The patient has taken noanticoagulant or antiplatelet agents. ASA Grade Assessment: III - A patient with severesystemic disease. After reviewing the risks and benefits, the patient was deemed insatisfactory condition to undergo the procedure. The anesthesia plan was to usegeneral anesthesia. Immediately prior to administration of medications, the patient wasre-assessed for adequacy to receive sedatives. The physical status of the patient wasre-assessed after the procedure. After I obtained informed consent, the scope waspassed under direct vision. All instruments were visually inspected immediatelybefore and after removal from the patient to ensure they are fully intact. Throughout the procedure, the patient's bloodpressure, pulse, and oxygen saturations were monitored continuously. The colonoscopy wasperformed without difficulty. The patient tolerated the procedure well. The qualityof the bowel preparation was good. The PCF-H180AL Colonoscope ([id number]) wasintroduced through the anus and advanced to the cecum, identified by appendiceal orifice andileocecal valve. Findings & Specimens: The perianal and digital rectal examinations were normal. Internal hemorrhoids were found during retroflexion. An area of friable mucosa with contact bleeding was found in theentire colon. Impression: - Internal hemorrhoids. - Friability with contact bleeding in the entireexamined colon given platelets of 30. - No specimens collected. Recommendation: - [facility] The signs and symptoms of potential delayed complications were discussed withthe patient. Return to normal activities tomorrow. Written discharge instructionswere provided to the patient. - The patient will be observed post-procedure,until all discharge criteria are met. - Discharge patient to home (with escort). - Resume previous diet. - Continue present medications. - Repeat colonoscopy in 3 years for surveillance. Marilou Andrews, 06/10/2024 11:42:55 AM This report has been signed electronically. Estimated Blood Loss: Estimated blood loss was minimal. Keyanna ZUÑIGA GASTRO LOWER Final Resu lt documented in this encounter Administered Medications Inactive Administered Medications - up to 3 most recent administrations Medication Order MAR Action Action Date Dose Rate Site Isolyte-S pH 7.4 infusion Intravenous, at 25 mL/hr, All Patients EXCEPT Dialysis patients Plasma-LYTE 148, isolyte-S, and isolyte-S pH 7.4 are considered equivalent - including for MAR barcode scanning., CONTINUOUS, Starting on Mon06/10/24 at 1100, Until Mon06/10/24 at 1622, Pre-Op New Bag 06/10/2024 10:39 AM EDT 25 mL/hr 25 mL/ hr documented in this encounter Active and Recently Administered Medications Due to Daylight Saving Time, this section may contain times in both EST and EDT. Continuous Medication Order 06/08/2024 06/09/2024 06/10/2024 Isolyte-S pH 7.4 infusion Intravenous, at 25 mL/hr, All Patients EXCEPT Dialysis patients Plasma-LYTE 148, isolyte-S, and isolyte-S pH 7.4 are considered equivalent - including for MAR barcode scanning., CONTINUOUS, Starting on Mon06/10/24 at 1100, Until Mon06/10/24 at 1622, Pre-Op 1039 (New Bag - Prov ider: Perla Salmeron RN) documented in this encounter Advance Directives * [...] Name Relationship Healthcare Agent Relationship Communication Carmen Withalva Significant Other Health Care Web Project Manager (appointed verbally by patient or by statute hierarchy) Care Teams Electrical Manufacturing Engineer Relationship Specialty Start Date End Date Rao Ochoa MD [address] [facility] [place] [address] PCP - General Internal Medicine 02/05/24 documented as of this encounter
--- OUTSIDE RECORDS SUMMARY | 2024-07-05 07:28 | External Medical Summary | Summary of Care ---
Author Name Unknown Organization [facility] Address [address] [facility] [place] [address] Phone [phone] Care Team Providers Care Confectionery Cooker Name Role Phone Rao Ochoa MD Primary Care Provider [phone] Reason for Visit * Reason Onset Date Comments [facility]: Screening 05/30/2024 Encounter Details Date Type Department Care Team (Late st Contact Info) Description 05/30/2024 Telephone [facility], [facility] [address] [facility] [place] [address] Micaela Stevenson, POOJA [address] [place] [address] [facility]: Screening Allergies Active Allergy Reactions Criticality Noted Date Comments Other Allergy (See Comments) Anaphylaxis High 06/21/2018 Bee stings- swelling documented as of this encounter (statuses as of 05/31/2024) Medications Iron (Ferrous Sulfate) 325 (65 Fe) [...] as of this encounter (statuses as of 05/31/2024) Active Problems Problem Noted Date Diagnosed Date [...] heart disease 002 Overview (11/29/2001): father had TN's in 40's Gastroesophageal reflux disease with esophagitis documented as of this encounter (statuses as of 05/31/2024) Resolved Problems Problem Noted Date Diagnosed Date [...] cardiac murmurs 11/29/2001 03/02/2017 Overview (11/29/2001): Not Sunflower on 11/29/01 documented as of this encounter (statuses as of 05/31/2024) Immunizations Name Administration Dates Next Due HEP A - Hepatitis A (Adult > 18 yrs) 06/06/2020 Pneumococcal Conjugate Vacci ne, 20-valent ([id number]) 06/24/2022 Seasonal Influenza Virus Vac cine, Unspecified [...] 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 Answer Date of Assessment Author Yes 08/23/2021 12:08 PM EDT documented as of this encounter Miscellaneous Notes * Telephone Encounter - Micaela Stevenson LPN - 05/30/2024 4:09 PM EST Mauro Liu was referred as a potential candidate for enrollment for [facility]. A review of this chart was completed and: Mauro does not meet criteria for enrollment into [facility]. Referral Source: Monthly Proactive Eligibility List Criteria for Ineligibility: Not Located in Service Area Referring care team was notified via : Epic communication Recently declined [facility] Patient does not have 6 or more chronic conditions documented in this encounter Plan of Treatment Upcoming Encounters Date Type Department Care Team (Latest Contact Info) Description 06/10/2024 1:17 PM EDT Hospital Encounter [facility], Operating Room, [facility] - 4th Floor [address] [place] [phone] Marilou Andrews DO [address] [place] [address] 06/10/2024 1:17 PM EDT - 06/10/2024 2:05 PM EDT Surgery OR [facility], Operating Room, [facility] - 4th Floor [address] [place] [phone] Marilou Andrews, [address] [place] [address] COLONOSCOPY FLEXIBLE PROXIMAL DIAGNOSTIC 06/18/2024 12:40 PM EDT Office Visit Hepatology, [facility] [address] [place] [address] Marilou Andrews DO [address] [place] [address] 08/21/2024 10:45 AM EDT Imaging Radiology [facility] [address] [place] [phone] 09/18/2024 3:40 PM EDT Office Visit Gastroenterology, [facility] [address] [place] [address] Ki Huang MD [address] [place] [address] 10/16/2024 3:40 PM EDT Office Visit Neurology [facility] [address] [facility] [place] [address] Britni De La Cruz MD [address] [facility] [place] [address] Scheduled Procedures Name Priority Associated Diagnoses Date/Ti pa COLONOSCOPY FLEXIBLE PROXIMA L DIAGNOSTIC History of colon polyps Rectal bleeding 06/10/2024 1:17 PM EDT ESOPHAGOGASTRODUODENOSCOPY ( EGD), FLEXIBLE, TRANSORAL, DIAGNOSTIC Recall Portal hypertensive gastropathy (HCC) Esophageal varices (HCC) Health Maintenance Due Date Last Done Comments Cologuard 2009 Fecal Occult Blood Test 2009 Sigmoidoscopy 2009 COVID-19 Vaccine ( season) 2023 Depression Screening 04/25/2025 04/25/2024 GFR 05/15/2025 05/15/2024, 02/0 06/2024, 04/23/2024, Additional history exists Albumin/Creatinine Ratio 07/09/2026 07/10/2023 DTap/Tdap Vaccines (2 - Td or Tdap) 02/15/2027 02/15/2017 Colonoscopy 05/13/2027 05/13/2024, 05/04, 06/30/2021, Additional history exists Colorectal Cancer Screening 05/13/2027 Diabetes Screening 05/15/2027 05/15/2024, 0 05/06/2024, 04/23/2024, Additional history exists Pneumococcal Vaccine: 50+ Years Completed 06/24/2022 Zoster [...] Name Relationship Healthcare Agent Relationship Communication Carmen [place] Significant Other Health Care Truck Service Technician (appointed verbally by patient or by statute hierarchy) Care Teams Confectionery Cooker Relationship Specialty Start Date End Date Rao Ochoa MD [address] [place] [address] PCP - General Internal Medicine 02/05/24 documented as of this encounter
[2024-07-05 08:07] VITALS: BP 151/88; PULSE 83; RESP 18; TEMP 97.5; O2SAT 95
[2024-07-05] MEDS: DULoxetine HCL 30 MG CAP PO SCH (08:16)
[2024-07-05] MEDS: LACTULOSE SYRUP 30 GM/45 ML UDP PO SCH (08:17)
[2024-07-05] MEDS: ATORVASTATIN 20 MG TAB PO SCH (08:17)
[2024-07-05] MEDS: THIAMINE HCL 200 MG in SODIUM CHLORIDE 0.9% 50 ML IV SCH (08:20)
[2024-07-05] MEDS ORDERED: NON-FORMULARY MEDICATION (Vitamin A-Vitamin C-Vit E-Min Tablet) PO SCH (09:00)
--- NOTE | 2024-07-05 11:27 | Discharge Summary ---
Discharge Summary Date of Service July 05, 2024 Principal Dx & Hospital Course #1 = Principal Diagnosis (1) Acute hepatic encephalopathy: (2) Other toxic encephalopathy: (3) Alcoholic cirrhosis: (4) Thrombocytopenia: (5) Hypertension: (6) Basilar artery aneurysm: Plan Patient is a 58-year-old gentleman with known alcoholic cirrhosis and previous episodes of hepatic encephalopathy. Presented to the emergency room with incr easing confusion over last 3 to 4 days. Ammonia level was noted to be elevated. Patient was cared for in the hospital. Given some hydration and continued his lactulose. Following morning his mentation had improved and his ammonia level had significantly decreased. Family at the bedside confirms that his cognition has improved still little bit off but definitely improved. Patient was evaluate d for infection. No evidence of pneumonia or urinary tract infection. Attempted to really understand patient's compliance with his lactulose and other medications. At times he seems to mention that he does not always remember to take it other times he says that he is very compliant and family says he is compliant. He also states he has 4-5 loose stools per day. It did not seem to be any other cause for the patient's progressive encephalopathy. He is on some medications that can cause confusion especially in the setting of liver disease including lorazepam, gabapentin, and trazodone. This may be contributing to some of his confusion as well. Will eliminate the gabapentin 300 mg at bedtime. Recommend stopping the lorazepam and decreasing the trazodone in half. He will be discharged home to follow-up with his PCP and outpatient optometric coordinator. Notes For Next Care Provider Continue to encourage compliance with medications Goal was to have 3-5 loose stools per day to manage his hepatic encephalopathy Continue to have patient follow-up with his liver team at [facility] for possible transplant. CT of the head shows small basilar artery aneurysm. Can consider outpatient neurovascular consultation Medication Changes From Visit Trazodone dose cut in half Gabapentin decreased to 100 mg 3 times daily Lorazepam discontinued Admission HPI Per Admitting Provider History obtained from chart review and interview with the patient Past medical history of hyperlipidemia, history of alcohol cirrhosis, history of hepatic encephalopathy, hypertension, GERD, depression, abdominal aortic aneurysm, internal hemorrhoids, avascular necrosis of left hip, thrombocytopenia Last admission in April 2024 for hepatic encephalopathy Patient presented to the hospital with confusion, changes in sleep pattern for last 4 days. Patient reports that he has been feeling "off" last several days. He reports feeling confused, reports increasing lethargy and sleepiness for last few days. He denies fever, visual changes, focal weakness, abdominal pain, urinary urgency, increased frequency. He reports that he has been compliant with lactulose; reports bowel movement up to 3-4 times a day. On presentation to the ED, he was afebrile, hemodynamically stable and saturating well on room air. He underwent CT chest, CTA head and neck which did not show any acute findings. Ammonia level was found to be 126 umol/h. AST slightly elevated to 54, ALP elevated to 154. Patient was given a dose of lactulose. He reports 2 bowel movement in the ED. Patient was admitted for further evaluation and treatment. Admission Exam Per Admitting Provider See H&P Discharge Exam Constitutional: Alert HEENT: Mucous membranes moist. Mild scleral icterus Lungs: Clear to auscultation, decreased, no wheezes rales or rhonchi CV: S1-S2, regular Abdomen: Soft, firm but nontender Extremities: No significant edema Neuro: No focal deficits Psych: Cooperative, normal mood Updated Medication List Medication Instructions Recorded Confirmed Type atorvastatin 20 mg tablet 20 mg PO QAM 04/20/24 07/04/24 History duloxetine 30 mg capsule,delayed 30 mg PO QAM 04/20/24 07/04/24 History release ferrous sulfate 325 mg (65 mg 325 mg PO QAM 04/20/24 07/04/24 History iron) tablet furosemide 40 mg tablet 40 mg PO QAM 04/20/24 07/04/24 History gabapentin 100 mg capsule 100 mg PO BID 04/20/24 07/04/24 History gabapentin 300 mg capsule 300 mg PO HS 04/20/24 07/04/24 History lactulose 10 gram/15 mL oral 30 ml PO QID 04/20/24 07/04/24 History solution lorazepam 0.5 mg tablet 0.5 mg PO DAILY PRN Anxiety 04/20/24 07/04/24 History magnesium oxide 400 mg (241.3 mg 400 mg PO BID 04/20/24 07/04/24 History magnesium) tablet pantoprazole 40 mg tablet,delayed 40 mg PO BID 04/20/24 07/04/24 History release (Protonix) rifaximin 550 mg tablet (Xifaxan) 550 mg PO BID 04/20/24 07/04/24 History spironolactone 25 mg tablet 25 mg PO QAM 04/20/24 07/04/24 History trazodone 50 mg tablet 100 mg PO HS 04/20/24 07/04/24 History vitamin A-vitamin C-vit E-min 1 tab PO DAILY 07/04/24 07/04/24 History tablet Hospital Stay Data Consultations 07/04/24 20:03 ED Decision to Admit Stat Diagnostic Imagining Performed 07/04/24 17:33 CT angio head w con Stat CT angio neck with con Stat CT head/brain wo con Stat Reviewed imaging, laboratory and diagnostic studies. Pertinent findings as below. WBCs 4.9 Hemoglobin 13.5 Platelets 41, baseline Electrolytes stable Creatinine 0.79 Total bilirubin 2.6 Ammonia 72, improved from 126 Pending Results Patient Have Any Pending Studies at Discharge: No Discharge Instructions Given to Patient (Per Discharging Provider) In addition to hepatic encephalopathy, concern potentially the gabapentin and lorazepam and trazodone may be contributing to some of your confusion. Will try to decrease and limit the use of some of his medicines. Compliance with your lactulose is extremely important. Goal was to have 3-5 loose stools per day. Follow-up with your PCP Follow-up with your liver team as scheduled. Total Time Total Time Spent Total Time Spent (In Minutes): 42
== END 2024-07-05 12:38 | disposition home or self-care (01) | DRG 443 ==
LOC: ED 17:06 → 2N 20:34
DX: Z79.899 Other long term (current) drug therapy; Z96.642 Presence of left artificial hip joint; Z87.891 Personal history of nicotine dependence; E78.5 Hyperlipidemia, unspecified; I71.40 Abdominal aortic aneurysm, without rupture, unspecified; Z86.73 Personal history of transient ischemic attack (TIA), and cerebral infarction without residual deficits; D69.59 Other secondary thrombocytopenia; K21.9 Gastro-esophageal reflux disease without esophagitis; M51.369 Other intervertebral disc degeneration, lumbar region without mention of lumbar back pain or lower extremity pain; K70.30 Alcoholic cirrhosis of liver without ascites; I10 Essential (primary) hypertension; G43.909 Migraine, unspecified, not intractable, without status migrainosus; F32.A Depression, unspecified; I25.2 Old myocardial infarction; K76.82 Hepatic encephalopathy

== ENCOUNTER 2024-08-18 12:52 | Inpatient (IN) ==
--- OUTSIDE RECORDS SUMMARY | 2024-08-18 13:00 | External Medical Summary | Summary of Care ---
Author Name Unknown Organization [facility] [address] [facility] [address] Phone [phone] Care Team Providers Care Safety Security Officer Name Role Phone Rao Ochoa MD Primary Care Provider [phone] Reason for Visit * Reason Comments Outpatient Testing Encounter Details Date Type Department Care Team (Late st Contact Info) Description 08/07/2024 11:20 AM EDT Laboratory Laboratory, [place] [facility] [address] [facility] [place] [address] [place], Laboratory [address] [place] [address] Hyperammonemia (HCC); Vitamin A deficiency; Hepatic encephalopathy (HCC); Alcoholic cirrhosis of liver without ascites (HCC) Allergies Active Allergy Reactions Criticality Noted Date Comments Other Allergy (See Comments) Anaphylaxis High 06/21/2018 Bee stings- swelling documented as of this encounter (statuses as of 08/07/2024) Medications Iron (Ferrous Sulfate) 325 (65 Fe) MG Oral Tablet Take by mouth. Activ e Diclofenac Sodium 1 % External Gel (Voltaren) Apply topically to affected area 2 times a day. Apply to area lateral to left hip 150 g 5 3 Active Additional Information Patient not taking.Reported on 07/11/2024 traZODone HCl 50 MG Oral Tablet (Desyrel)Indicat [...] BEFORE BEDTIME 60 Tablet 5 4 Active DULoxetine HCl 30 MG Oral [...] BEFORE BEDTIME 90 Capsule 5 5 Active Pantoprazole Sodium 40 MG Oral Tablet Delayed Release (Protonix)Indica tions:Gastroesop hageal reflux disease Take 1 Tablet by mouth in the morning and 1 Tablet before bedtime. 180 Tablet 5 Active cloNIDine HCl 0.1 MG Oral Tablet (Catapres) Take 1 Tablet by mouth in the morning and 1 Tablet before bedtime. 60 Tablet 5 Active Lactulose 10 GM/15ML Oral Solution (Constulose)Kaylin cations:Hyperamm onemia (HCC) Take 30 mL by mouth in the morning and 30 mL at noon and 30 mL in the evening and 30 mL before bedtime. 946 mL 5 Active Magnesium Oxide -Mg Supplement 400 (240 Mg) MG Oral Tablet (Mag-Ox)Indicati ons:Hypomagnesem ia take 1 tablet by mouth IN THE MORNING AND BEFORE BEDTIME 180 Tablet Active Hospital, Clinic, or Other Facility Administered Medication Ordered Dose Route Frequency Start Date End Date Status albuterol sulfate (PROVENTIL) (2.5 MG/3ML) 0.083% inhalation solution 2.5 mgIndications:SOB (shortness of breath) 2.5 mg NEBULIZER Q4H PRN 05/10/2018 Act guzman documented as of this encounter (statuses as of 08/07/2024) Active Problems Problem Noted Date Diagnosed Date Other secondary cataract, right eye 07/11/2024 Splenomegaly, not elsewhere classified Peripheral polyneuropathy 04/29/2024 [...] as of this encounter (statuses as of 08/07/2024) Resolved Problems Problem Noted Date Diagnosed Date [...] cardiac murmurs 11/29/2001 03/02/2017 Overview (11/29/2001): Not 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 Answer Date of Assessment Author Yes 08/23/2021 12:08 PM EDT documented as of this encounter Plan of Treatment Upcoming Encounters Date Type Department Care Team (Late st Contact Info) Description 08/08/2024 11:30 AM EDT [facility] [address] [place] [phone] Adan Stone [address] [place] [address] 08/12/2024 11:00 AM EDT Appointment Radiology, [place] [address] [place] [address] [place] [address] 08/12/2024 11:00 AM EDT Rehab Services [facility], [place] [address] [place] [address] [place] [address] [phone] Rehab, Video Therapist [facility] [place] [phone] 08/21/2024 10:45 AM EDT Imaging Radiology [facility] [address] [place] [phone] 09/18/2024 3:40 PM EDT Office Visit Gastroenterology, [facility] [address] [place] [phone] Ki Huang MD [address] [place] [address] 10/16/2024 3:40 PM EDT Office Visit Neurology [facility] [address] [place] [address] Britni De La Cruz MD [address] [facility] [place] [address] 10/31/2024 8:40 AM EDT Office Visit Hepatology, [facility] [address] [place] [phone] Jena Camargo [place] [address] [place] [address] 11/06/2024 12:30 PM EDT Office Visit OphthalmologyAndriy [address] [facility] [place] [address] Reji Nazario DO [address] [facility] [place] [address] Pending Results Name Type Priority Associated Diagnoses Date /Time AMMONIA Lab Routine Hyperammonemia (HCC) 08/07/2024 11:21 AM EDT VITAMIN A (RETINOL) Lab Routine Vitamin A deficiency 08/07/2024 11:21 AM EDT CBC WITH WBC DIFFERENTIAL AND ANEMIA REFLEX WORKUP Lab Routine Hepatic encephalopathy (HCC) Alcoholic cirrhosis of liver without ascites (HCC) 08/07/2024 11:21 AM EDT COMPREHENSIVE METABOLIC PANEL Lab Routine Hepatic encephalopathy (HCC) Alcoholic cirrhosis of liver without ascites (HCC) 08/07/2024 11:21 AM EDT ANEMIA CBC Lab Routine Hepatic encephalopathy (HCC) Alcoholic cirrhosis of liver without ascites (HCC) 08/07/2024 11:21 AM EDT DIFFERENTIAL, AUTOMATED Lab Routine Hepatic encephalopathy (HCC) Alcoholic cirrhosis of liver without ascites (HCC) 08/07/2024 11:21 AM EDT ANEMIA REFLEX CHEMISTRY HOLD Lab Routine Hepatic encephalopathy (HCC) Alcoholic cirrhosis of liver without ascites (HCC) 08/07/2024 11:21 AM EDT Scheduled Procedures Name Priority Associated Diagnoses Date/Ti me COLONOSCOPY FLEXIBLE PROXIMAL DIAGNOSTIC Recall History of colonic polyps ESOPHAGOGASTRODUODENOSCOPY ( EGD), FLEXIBLE, TRANSORAL, DIAGNOSTIC Recall Portal hypertensive gastropathy (HCC) Esophageal varices (HCC) Health Maintenance Due Date Last Done Comments Cologuard 2009 Fecal Occult Blood Test 2009 Sigmoidoscopy 2009 COVID-19 Vaccine ( season) 2023 Depression Screening 04/25/2025 04/25/2024 GFR 05/15/2025 05/15/2024, 02/06/2024, 04/23/2024, Additional history exists Albumin/Creatinine Ratio 07/09/2026 [...] Hyperammonemia (HCC) Disorders of urea cycle metabolism Vitamin A deficiency Unspecified vitamin A deficiency Hepatic encephalopathy (HCC) Hepatic encephalopathy Alcoholic cirrhosis of liver without ascites (HCC) Alcoholic cirrhosis of liver documented in this encounter Advance Directives * [...] Communication Carmen Marr Significant Other Health Care Buffet Waiter/Waitress (appointed verbally by patient or by statute hierarchy) Care Teams Safety Security Officer Relationship Specialty Start Date End Date Rao Ochoa MD [address] [place] [address] [place] [address] PCP - General Internal Medicine 02/05/24 documented as of this encounter
--- OUTSIDE RECORDS SUMMARY | 2024-08-18 13:00 | External Medical Summary | Summary of Care ---
Author Name Unknown Organization [facility] Address [address] [place] [place] [facility] [place] [address] Phone [phone] Care Team Providers Care Marketing Database Analyst Name Role Phone Rao Ochoa MD Primary Care Provider [phone] Reason for Visit * Reason Onset Date Comments Medication Question 08/15/2024 Encounter Details Date Type Department Care Team (Late st Contact Info) Description 08/15/[address] [facility] Ilsa [place] [address] [place] [phone] Rao Ochoa MD [address] [facility] [address] Medication Question Allergies Active Allergy Reactions Criticality Noted Date Comments Other Allergy (See Comments) Anaphylaxis High 06/21/2018 Bee stings- swelling documented as of this encounter (statuses as of 08/16/2024) Medications Iron (Ferrous Sulfate) 325 (65 Fe) [...] AND BEFORE BEDTIME 180 Tablet 5 Active Vitamin A 4.5 MG (74698 UT) Oral Tablet Take one tablet by mouth daily. 90 Tablet 3 5 Active Hospital, Clinic, or Other Facility Administered Medication Ordered Dose Route Frequency Start Date End Date Status albuterol sulfate (PROVENTIL) (2.5 MG/3ML) 0.083% inhalation solution 2.5 mgIndications:SOB (shortness of breath) 2.5 mg NEBULIZER Q4H PRN 05/10/2018 Act guzman documented as of this encounter (statuses as of 08/16/2024) Active Problems Problem Noted Date Diagnosed Date [...] heart disease 002 Overview (11/29/2001): father had IA's in 40's Gastroesophageal reflux disease with esophagitis documented as of this encounter (statuses as of 08/16/2024) Resolved Problems Problem Noted Date Diagnosed Date [...] cardiac murmurs 11/29/2001 03/02/2017 Overview (11/29/2001): Not [place] on 11/29/01 documented as of this encounter (statuses as of 08/16/2024) Immunizations Immunization Administration Dates Next Due HEP A - Hepatitis A (Adult > 18 yrs) 06/06/2020 Pneumococcal Conjugate Vacci ne, 20-valent ([id number]) 06/24/2022 Seasonal Influenza Virus Vac cine, Unspecified [...] No 04/25/2024 Are you (or your family) jsuten eless or worried that you might be [...] Job 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 Answer Date of Assessment Author Yes 08/23/2021 12:08 PM EDT documented as of this encounter Miscellaneous Notes * Telephone Encounter - Marcelino Baca LPN - 08/16/2024 3:13 PM EDT Attempted to call patient, there was no answer, left voicemail. When patient returns call, ok for DAISHA to relay message, please refer to below documentation. If needed, can transfer to dedicated nurse line. * Telephone Encounter - Rao Ochoa MD - 08/16/2024 3:05 PM EDT He has been taking 3mg (47548 unit) daily but still low Vt A level Is he ok to take twice daily ? * Telephone Encounter - Samantha Avendano CPhT - 08/15/2024 1:24 PM EDT Pharmacy calling about Vitamin A 4.5 MG (01348 UT) Tabs, Take one tablet by mouth daily. The pharmacy is unable to order this strength in. We are able to order Vitamin A 12180 UT Caps. If agreeable, please send 90 day supply to [facility]. Thank you! Thank you, Samantha Avendano Assistant General Manager II Centralized Clinical Pharmacy Services 08/15/2024, 1:27 PM documented in this encounter Plan of Treatment Upcoming Encounters Date Type Department Care Team (Late st Contact Info) Description 08/21/2024 10:45 AM EDT Imaging Radiology [facility] [address] [place] [phone] 09/18/2024 3:40 PM EDT Office Visit Gastroenterology, [facility] [address] [place] [phone] Ki Huang MD [address] [facility] [place] [address] 10/16/2024 3:40 PM EDT Office Visit Neurology [facility] [address] [facility] [place] [address] Britni De La Cruz MD [address] [facility] [place] [address] 10/31/2024 8:40 AM EDT Office Visit Hepatology, [facility] [address] [place] [phone] Jena Camargo MD [address] [place] [address] 11/06/2024 12:30 PM EDT Office Visit Ophthalmology, [place] [address] [place] [address] Reji Nazario DO [address] [place] [address] Scheduled Procedures Name Priority Associated Diagnoses Date/Ti me COLONOSCOPY FLEXIBLE PROXIMAL DIAGNOSTIC Recall History of colonic polyps ESOPHAGOGASTRODUODENOSCOPY ( EGD), FLEXIBLE, TRANSORAL, DIAGNOSTIC Recall Portal hypertensive gastropathy (HCC) Esophageal varices (HCC) Health Maintenance Due Date Last Done Comments Cologuard 2009 Fecal Occult Blood Test 2009 Sigmoidoscopy 2009 COVID-19 Vaccine ( season) 2023 Depression Screening 04/25/2025 04/25/2024 GFR 08/07/2025 08/07/2024, 05/04, 05/06/2024, Additional history exists Albumin/Creatinine Ratio 07/09/2026 07/10/2023 DTap/Tdap Vaccines (2 - Td or Tdap) 02/15/2027 02/15/2017 Colonoscopy 06/11/2027 06/10/2024, 06/01, 05/13/2024, Additional history exists Colorectal Cancer Screening 06/11/2027 Diabetes Screening 08/08/2027 08/07/2024, 0 05/15/2024, 05/06/2024, Additional history exists Pneumococcal Vaccine: 50+ Years Completed 06/24/2022 EKG Completed 07/11/2023, 08/0 04/2022, 08/27/2019, Additional history exists Zoster Vaccines Discontinued 08/23/2023 Influenza Vaccine (FLU [...] Communication Carmen Marr Significant Other Health Care Print Line Feeder (appointed verbally by patient or by statute hierarchy) Care Teams Marketing Database Analyst Relationship Specialty Start Date End Date Rao Ochoa MD [address] [place] [address] PCP - General Internal Medicine 02/05/24 documented as of this encounter
--- OUTSIDE RECORDS SUMMARY | 2024-08-18 13:00 | External Medical Summary | Summary of Care ---
Author Name Unknown Organization [facility] Address [address] [facility] [facility] [address] Phone [phone] Care Team Providers Care Draw Machine Operator Name Role Phone Rao Ochoa MD Primary Care Provider [phone] Encounter Details Date Type Department Care Team (Late st Contact Info) Description 08/07/2024 Telephone [facility] Ilsa Whitney [address] [place] [address] Tara Saldana PA-C [address] [place] [address] Allergies Active Allergy Reactions Criticality Noted Date Comments Other Allergy (See Comments) Anaphylaxis High 06/21/2018 Bee stings- swelling documented as of this encounter (statuses as of 08/08/2024) Medications Iron (Ferrous Sulfate) 325 (65 Fe) [...] AND BEFORE BEDTIME 180 Tablet 5 Active Hospital, Clinic, or Other Facility Administered Medication Ordered Dose Route Frequency Start Date End Date Status albuterol sulfate (PROVENTIL) (2.5 MG/3ML) 0.083% inhalation solution 2.5 mgIndications:SOB (shortness of breath) 2.5 mg NEBULIZER Q4H PRN 05/10/2018 Act guzman documented as of this encounter (statuses as of 08/08/2024) Active Problems Problem Noted Date Diagnosed Date [...] heart disease 002 Overview (11/29/2001): father had NH's in 40's Gastroesophageal reflux disease with esophagitis documented as of this encounter (statuses as of 08/08/2024) Resolved Problems Problem Noted Date Diagnosed Date [...] cardiac murmurs 11/29/2001 03/02/2017 Overview (11/29/2001): Not [place] on 11/29/01 documented as of this encounter (statuses as of 08/08/2024) Immunizations Name Administration Dates Next Due HEP A - Hepatitis A (Adult > 18 yrs) 06/06/2020 Pneumococcal Conjugate Vacci ne, 20-valent ([id number]) 06/24/2022 Seasonal Influenza Virus Vac cine, Unspecified [...] Job 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 Answer Date of Assessment Author Yes 08/23/2021 12:08 PM EDT documented as of this encounter Miscellaneous Notes * Telephone Encounter - Rao Ochoa MD - 08/08/2024 10:04 AM EDT Discussed with pt and his Pt was still taking lactulose only three times per day Advised to set up alarm on his phone 4 times per day Pt is scheduled or retinal detachment surgery tomorrow Also will need to f/u ammonia level early next week * Telephone Encounter - Tara Saldana PA-C - 08/07/2024 11:09 PM EDT Paged for critical value of ammonia of 199 Spoke with patient Balance is off - has fallen Taking his lactulose Rev lab results with patient E is worse Advised er. Patient aware and disagrees with plan. He refuses ed Wants me to advise pcp Tara Saldana PA-C documented in this encounter Plan of Treatment Upcoming Encounters Date Type Department Care Team (Late st Contact Info) Description 08/12/2024 11:00 AM EDT Appointment Radiology, [place] [address] [place] [address] 08/12/2024 11:00 AM EDT Rehab Services Video Fluoroscopy Rehab, [place] [address] [place] [address] Rehab, Video Therapist [address] [place] [address] 08/21/2024 10:45 AM EDT Imaging Radiology [facility] [address] [place] [phone] 09/18/2024 3:40 PM EDT Office Visit Gastroenterology, [facility] [address] [facility] [phone] Ki Huang MD [address] [place] [address] 10/16/2024 3:40 PM EDT Office Visit Neurology [facility] [address] [place] [address] Britni De La Cruz MD [address] [place] [address] 10/31/2024 8:40 AM EDT Office Visit Hepatology, [facility] [address] [place] [phone] Jena Camargo MD [address] [place], [place] [address] [address] 11/06/2024 12:30 PM EDT Office Visit Ophthalmology, [place] [address] [place] [address] Reji Nazario DO [address] [place] [place] [address] Scheduled Orders Name Type Priority Associated Diagnoses Orde r Schedule AMMONIA Lab Routine Hepatic encephalopathy (HCC) Alcoholic cirrhosis of liver without ascites (HCC) Expected: 08/12/2024 (Approximate), Expires: 08/08/2025 Scheduled Procedures Name Priority Associated Diagnoses Date/Ti [...] Communication Carmen Marr Significant Other Health Care Employment Counselor (appointed verbally by patient or by statute hierarchy) Care Teams Draw Machine Operator Relationship Specialty Start Date End Date Rao Ochoa MD [address] [place] [address] PCP - General Internal Medicine 02/05/24 documented as of this encounter
--- OUTSIDE RECORDS SUMMARY | 2024-08-18 13:00 | External Medical Summary | Continuity of Care Document ---
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 Name Role Phone Toby Paz Primary Care Physician [phone] [id number] Date(s): 08/09/24 - 08/09/24 [facility] [address] [place] [address] [id number] us Encounter Diagnosis Retinal detachment, right(Discharge Diagnosis) - 08/09/24 Discharge Disposition: Home or Self Care Attending Physician: MD Murray Paul Scott Encounter Type: Same Day Surgery Allergies, Adverse Reactions, Alerts No Known Allergies Functional Status 08/09/24 Facial Symmetry Symmetric Swallowing Difficulty None Level of Consciousness Neuro Alert Hallucinations Present None Speech Pattern Clear 08/09/24 History of Fall in Last 3 Months Shields N o Presence of Secondary Diagnosis Shields Ye s Use of Ambulatory Aid Shields None/bedrest /nurse assist IV/Heparin Lock Fall Risk Shields No Gait/Transferring Fall Risk Shields Normal /bedrest/immobile Mental Status Fall Risk Shields Oriented t o own ability Shields Fall Risk Score 15 Shields Fall Risk No Risk Medications atorvastatin 20 mg oral tablet 1 tab, PO, Daily Start Date: 01/18/23 Status: Ordered Repeat number: 1 DULoxetine 30 mg oral delayed release capsule Start: 08/08/24 8:58:00 AM EDT, 1 cap, PO, Daily Start Date: 08/08/24 Status: Ordered Repeat number: 1 FLUoxetine 10 mg oral capsule 1 cap, PO, Daily Start Date: 01/18/23 Status: Ordered Repeat number: 1 furosemide 40 mg oral tablet 1 tab, PO, Daily Start Date: 01/18/23 Status: Ordered Repeat number: 1 gabapentin 100 mg oral capsule 1 cap, PO, Daily Start Date: 01/18/23 Status: Ordered Repeat number: 1 iron sulfate Start: 04/10/23 8:15:00 AM EST, 324 mg =, PO, Daily Start Date: 04/10/23 Status: Ordered Repeat number: 1 lactulose Start: 01/18/23 9:58:00 AM EDT, 30 mL, PO, tid Start Date: 01/18/23 Status: Ordered Repeat number: 1 LORazepam 0.5 mg oral tablet Start: 08/08/24 8:57:00 AM EDT, 1 tab, PO, Daily Start Date: 08/08/24 Status: Ordered Repeat number: 1 magnesium oxide 400 mg (241.3 mg elemental magnesium) oral tablet Start: 01/18/23 9:57:00 AM EDT, 1 tab, PO, qAM Start Date: 01/18/23 Status: Ordered Repeat number: 1 pantoprazole 40 mg oral delayed release tablet 1 tab, PO, Daily Start Date: 01/18/23 Status: Ordered Repeat number: 1 spironolactone Start: 01/18/23 9:57:00 AM EDT, 25 mg =, PO, qAM Start Date: 01/18/23 Status: Ordered Repeat number: 1 traZODone 50 mg oral tablet Start: 03/21/23 10:40:00 AM EST, 2 tab, PO, qhs Start Date: 03/21/23 Status: Ordered Repeat number: 1 Vitamin B12 Start: 08/08/24 8:58:00 AM EDT, unknown, PO, Daily Start Date: 08/08/24 Status: Ordered Repeat number: 1 Mental Status 08/09/24 Communication Barrier Present No Problem List Condition Confirmation Course Effective Dates Status Health St atus Informant Orthopedic aftercare Confirmed Active Diagnosis Diagnosis Type Effective Dates Health Status Cl inical Service Informant Retinal detachment, right Discharge Diagnosis 08/09/24 Non-Specified Procedures Procedure Date Related Diagnosis Body Site Status VITRECTOMY 1 08/09/24 Completed Cholecystectomy 2015 Completed Bowel resection s/t obstruction 2013 Completed Appendectomy as teenager Completed Bilateral cataract extraction Completed Colonoscopy Completed Endoscopy Completed Hip replacement 2 Complet ed 1auto-populated from documented surgical case 2Left Vital Signs Most recent to oldest [Reference Range]: 1 2 3 Height 175.26 cm (08/09/24 10:26 AM) Patient Weight 100 kg (08/09/24 10:26 AM) Body Mass Index 32.56 kg/m2 (08/09/24 10:26 AM) Temperature [36.5-37.9 DegC] 36.4 DegC *LOW* (08/09/24 4:55 PM) 36 DegC *LOW* (08/09/24 4:00 PM) 36 DegC *LOW* (08/09/24 3:50 PM) Heart Rate 67 bpm (08/09/24 3:50 PM) 70 bpm (08/09/24 3:45 PM) 75 bpm (08/09/24 3:31 PM) Respiratory Rate 14 br/min (08/09/24 4:55 PM) 16 br/min (08/09/24 4:20 PM) 16 br/min (08/09/24 4:00 PM) Blood Pressure 138/85mmHg (08/09/24 4:55 PM) 123/75mmHg (08/09/24 4:20 PM) 149/80mmHg (08/09/24 4:00 PM) Mean Blood Pressure 89 mmHg (08/09/24 3:52 PM) 107 mmHg (08/09/24 3:30 PM) Cuff Pulse Pressure 53 mmHg (08/09/24 4:55 PM) 48 mmHg (08/09/24 4:20 PM) 69 mmHg (08/09/24 4:00 PM) Social History Social History Type Response Smoking Status Never smoked cigaret jocelin Sex Male Sex Representation Male (finding) Implantable Device List Procedure Provider Procedure Date Device Type Site Unknown Unknown 04/10/23 Unknown Unknown Device Identifier Serial Number Lot or Batch Number Manufacturing Date Expiration Date Distinct Identification Code MRI Safety Implantable Status Assigning Authority Unknown Unknown [id number] Unknown 12/31/32 Unknown Unknown Active Unk nown Unknown Unknown [id number] Unknown 09/30/32 Unknown Unknown Active Unknown Unknown Unknown [id number] Unknown 12/02/27 Unknown Unknown Active Unkn own Unknown Unknown [id number] Unknown 08/31/30 Unknown Unknown Active Unkn own Unknown Unknown [id number] Unknown 01/01/28 Unknown Unknown Active Unk nown History and physical note * MD Trevor, Gabriel Washington: PERFORM Event Display: H&P Update Authored Date: [id number] Name: MARLEEN MELTON Patient Number: [id number] : 1965 Date of Service: 08/09/2024 HISTORY & PHYSICAL INTERVAL NOTE History and Physical Update: I have reviewed the H&P previously performed and examined the patient today. There are no newfindings noted. Electronic Signature on File Electronically Reviewed/Signed by: Gabriel Murray MD Author Signature Dt/Tm:08/09/2024 01:28 PM Ophthalmology PSB * MD Robles Justin: PERFORM, MODIFY, SIGN, VERIFY Event Display: Anes H&P Authored Date: [id number] Patient: MARLEEN MELTON Age: 59 years Sex: Male : 1965 Associated Diagnoses: None Author: MD Robles Justin Preoperative Information Pre-Operative Diagnosis: See below . Anesthiesia Preop Info: Procedure: pars plana vitretomy, endolaser, air fluid exchange, fluid gas exchange, right eye Date: 08/09/24 12:30 Surgeons: MD Trevor, Gabriel Washington Diagnosis: retinal detachment, vitreous hemorrhage, lattice degeneration, RIGHT eye . NPO Status: Other: NPO solids > 8hr, liquids > 2hr. Nursing Information: Nurse Pre Procedure Screening Assessment 08/08/2024 08:44 ( Encounter Location: [address]) Documentation Location: [facility] ([facility]) Cardiovascular History Of: HTN Controlled, Dyslipidemia Anesthesia History: Yes PostOp Nausea & Vomiting: No Family Anesthesia History: No prior anesthesia complications Recent URI Resolved Comment: none Pulmonary History: None Reported Endocrine History: None Reported Gastrointestinal History Of: GERD, Other: cirrhosis; hx of bowel obstruction s/p bowel resection Hematologic History: None Reported Neurologic History: None Reported Psychiatric History Of: Depression, Anxiety Renal History: None Reported Orthopedic History Of: Osteoarthritis Oncology History: None Reported Ophthalmology History Of: Cataract, Other: right eye retinal detachment . Denies URI, anesthesia problems, DAISHA sx, . GERD +cirrhosis with associated thrombocytopenia denies history of ascites, varices, significant encephalopathy. compensated MET > 4 Medical History Medical Devices: Medical Devices: none . Health Status Allergies: Allergic Reactions (Selected) NKA. Medications: Medication List (Selected) Documented Medications Documented DULoxetine 30 mg oral delayed release capsule: 1 cap, PO, Daily FLUoxetine 10 mg oral capsule: 1 cap, PO, Daily LORazepam 0.5 mg oral tablet: 1 tab, PO, Daily Vitamin B12: unknown, PO, Daily atorvastatin 20 mg oral tablet: 1 tab, PO, Daily furosemide 40 mg oral tablet: 1 tab, PO, Daily gabapentin 100 mg oral capsule: 1 cap, PO, Daily iron sulfate: 324 mg, PO, Daily lactulose: 30 mL, PO, tid magnesium oxide 400 mg (241.3 mg elemental magnesium) oral tablet: 1 tab, PO, qAM pantoprazole 40 mg oral delayed release tablet: 1 tab, PO, Daily spironolactone: 25 mg, PO, qAM traZODone 50 mg oral tablet: 2 tab, PO, qhs. Problem List: All Problems Acid reflux / SNOMED CT 668472910 / Confirmed Anxiety / SNOMED CT 41555176 / Confirmed Hip pain / SNOMED CT 61803835 / Complaint of HLD (hyperlipidemia) / SNOMED CT 24040733 / Confirmed Hypertension / SNOMED CT 3056587420 / Complaint of Liver disease / SNOMED CT 400260066 / Complaint of Orthopedic aftercare / SNOMED CT 726175548 / Confirmed. Histories Procedure History: Cholecystectomy (91156525) in 2016 at 50 Years. Bowel resection s/t obstruction (599681016) in 2013 at 48 Years. Appendectomy as teenager (269281484). Colonoscopy (637877507). Endoscopy (6948065348). Bilateral cataract extraction (8562838385). Hip replacement (6098186095). Comments: 08/08/2024 08:59 OLIVIAT - RONA Cobos, Betina Left. 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 Never smoked cigarettes Other Tobacco Use: Never used other tobacco products Alcohol: Recreational Drugs: . 2023 aw: 04/2024 labs: Physical Examination VS/Measurements: Vital Signs 08/09/2024 10:26 EDT Temperature 36.9 DegC Temperature Route Temporal Respiratory Rate 16 br/min Systolic Blood Pressure 118 mmHg Diastolic Blood Pressure 68 mmHg Cuff Pulse Pressure 50 mmHg Pulse 66 Oxygen Therapy Room Air SpO2 97 % . General: Alert and oriented, No acute distress. Airway: Mallampati classification: II (soft palate, fauces, uvula visible). Distance: Thyromental, Hyomental distance ( 30-40 millimeters ). Temporomandibular joint mobility: Good. Mouth: Within normal limits, Dentures ( Lower dentures, Partial plate ), Teeth ( Within normal limits ). Neck: Full range of motion. Respiratory: Lungs are clear to auscultation, Respirations are non-labored, Breath sounds are equal. Cardiovascular: Normal rate, Regular rhythm, No murmur. Anesthesiologist Assessment and Plan Problems: No active cardiac conditions, No previous anesthetic complications, No a/w concerns. Risk of major adverse cardiac event (Revised Cardiac Risk Index): 0 = 0.4%. Cardiovascular risk associated with the procedure: Low (<1%). Disposition: No further testing or evaluation indicated preoperatively, may proceed with procedure as scheduled. ASA Classification: Class IV. Anesthetic Plan: Premedication: None. Anesthetic technique discussed: General anesthesia, Inhalation. Induction discussed: Intravenously. Airway plan discussed: Laryngeal mask airway, Oral endotracheal tube. Risks discussed: Nausea-vomiting, Sore throat, Dental injury, Allergic reaction, Serious complications, Aspiration. Informed consent: Signed by patient. Special techniques and precautions discussed: Nausea-vomiting, Transfusion of blood or blood products. History, Physical Exam, Assessment and Plan Completed: 08/09/2024 13:18:00, MD Travis, Inocente. 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 The surgical indications, risks, benefits, alternatives were reviewed with the patient, all of their questions and concerns were addressed. The risks included, but were not limited to, bleeding, infection, loss of vision, and loss of eye. The patient understood these risks and wished to proceed with surgery. (( DESCRIPTION OF OPERATION:( The patient and operative site were identified and marked by the surgeon. The patient was then taken to the operating room. An intravenous line was started and cardiac and blood pressure monitoring devices were applied. The appropriate anesthesia was administered and a 50:50 mixture of Lidocaine 2%and Marcaine 0.75% was given as a peribulbar block. The operative eye was prepped with betadine anddraped in the sterile ophthalmic fashion. A lid speculum was placed.( (A 25 gauge valved cannula was inserted 4.0 mm posterior to the limbus in the inferotemporal quadrant using the trocar system and a beveled technique. This cannula was connected to the infusionline, placement of the infusion cannula in the vitreous cavity was confirmed by direct visualization, and infusion of BSS plus was initiated. Valved 25 gauge cannulas were similarly placed 4.0 mm post erior to the limbus in the supranasal and supratemporal quadrants using the trocar system and a beveled technique. ((After placement of cannulas, light pipe and vitrector were introduced in the posterior segment. Inspection of the retina revealed a macula on temporal retinal detachment with multiple breaks. Core vitrectomy followed by shave of the peripheral gel was performed under the wide angleviewing system. With the aid of scleral depression, a complete vitrectomy was performed to the vitreous base. The flaps of the retinal breaks were amputated with vitrector to relieve any traction. Endodiathermy was used to jones the retinal breaks as well as a posterior drainage retinotomy. Soft tipped cannula was used to open the retinotomy and sub retinal fluid was drained during an air fluid change. Once the retina was flattened, endolaser was used to treat the retinal breaks and the retinotomy. Endolaser was also used to treat the vitreous base along the extent of the retinal detachment. A 360 degree scleral depressed exam was performed, and no new tears were seen. An air gas exchange was performed to leave the eye with a total fill of SF6 20%. No sclerotomies were sutured after the cannulas were removed and the wounds were watertight. ((The normal intraocular pressure was verified. Subconjunctival injection of antibioticwas performed in the inferior fornix. The lid speculum was removed, antibiotic ointment was instilled in the eye, and a patch and protective shield were applied. The patient was transferred to the recovery room in stable condition.( Electronic Signature on File Electronically Reviewed/Signed by: Gabriel Murray MD Author Signature Dt/Tm:08/09/2024 03:12 PM Ophthalmology PSB Discharge instructions * MD Trevor, Gabriel Washington: PERFORM Event Display: Patient Discharge Instructions Authored Date: [id number] MARLEEN MELTON :1965 Visit Date:08/09/2024 Patient Discharge Instructions [facility] For questions or further information, call: . Date of Admission: 08/09/2024 Date of Discharge: 08/09/2024 Physician: MD Murray Paul Scott Service: Ophthalmology Discharge Disposition: . Advance Directive: None Reason for Hospitalization My [employer] Patient Portal: [facility] [employer] makes it easy for you to manage your health information online. [employer] is a free service that provides you instant, secure access to your medical information anytime, anywhere. Sign in or set up your account today at [facility].[email or web address]/[employer] Thank you for allowing us to assist you with your healthcare needs. If you need additional community resources, [place] [employer] can help at https://www.pa211.org. 211 can assist you in connecting with social programs based on your unique needs and locations. 211 is an anonymous search that can help you locate resources for: Food, Housing, Transportation, Goods, Education and Healthcare. Medications What How Much When Instructions Next Dose Unchanged atorvastatin (atorvastatin 20 mg oral tablet) 1 tab(s) by mouth Once daily Unchanged cyanocobalamin (Vitamin B12) unknown by mouth Once daily Unchanged DULoxetine (DULoxetine 30 mg oral delayed release capsule) 1 cap by mouth Once daily Unchanged ferrous sulfate (iron sulfate) 324 Milligram by mouth Once daily Unchanged FLUoxetine (FLUoxetine 10 mg oral capsule) 1 cap by mouth Once daily Unchanged furosemide (furosemide 40 mg oral tablet) 1 tab(s) by mouth Once daily Unchanged gabapentin (gabapentin 100 mg oral capsule) 1 cap by mouth Once daily Unchanged lactulose 30 Milliliter by mouth 3 times daily Unchanged LORazepam (LORazepam 0.5 mg oral tablet) 1 tab(s) by mouth Once daily Unchanged magnesium oxide (magnesium oxide 400 [...] tablet) 2 tab(s) by mouth At bedtime Allergies NKA What to do next Instructions From Your Doctor You may call [facility] at during business hours or for after-hours emergencies to have your doctor paged. The information below provides you with the instructions and the list of medications you need to betaking following discharge from the hospital. If you have any questions, please ask before leaving. Please carry this letter with you when you see your doctor in the clinic. If you have questions, you can reach us at the numbers above. SPECIAL INSTRUCTIONS: Please remove your patch when you get up in the morning and begin your pre- prescribed eye drop(s) unless otherwise instructed. Bring drop(s) to all appointments. If you are taking other eye drops (to manage glaucoma, for example), please bring them to the post-operative appointment. You may have been instructed to stay in the following position after surgery: face down 4 days, can lay on left side. We request that you do this as much as possible in the daytime and at night. As a general guideline during the daytime, try to stay in the position for 45 minutes out of every hour. Pain may be controlled with Tylenol tables (650-1000 mg every four to six hours), Ibuprofen (400 mgevery four to six hours), or Naproxen (2 tabs every six to eight hours) If you develop significant pain please call us at . It is normal for the eye to be scratchy, red, light sensitive, and uncomfortable for the first week or so after surgery. Also, itis common for the eye to be quite blurred and to see bubbles and reflections if air or gas was placed in the eye during surgery. Diet: Resume previous diet Activity: Avoid getting soapy water or pool water in your eyes for one weeks after your date of surgery. Itis OK to wash your face with a wash cloth. You may return to your usual activities, exercising reasonable judgement unless you are specifically advised otherwise Follow Up - Return appointment(s): Post-operative appointment with surgeon is scheduled for: Tomorrow at [facility], monday 9:45 AM at the [place] office ([address]) See your primary care physician as needed. If you notice the following symptoms Contact the [facility] at . If unable to contact your physician and you feel it is an emergency, go to the nearest Emergency Room or call 911 Diet Instructions Activity Instructions Follow-Up Appointments Scheduled Follow-Up Appointments Date/Time: Provider/Resource: Oct 02:30 pm HPD MRI Rm1 Location/Instructions: To ensure your safety ALL patients will be required to change into a gown. Please DO NOT wear undergarments that contain any Metallic components to them, as these have the potential to cause injury. All glucose monitoring devices will be required to be removed. Children under the age of 12 years require adult supervision and may not be left unattended while a parent or guardian is having an exam. The Following Services Have Been Arranged for You No Post-Acute Placement(s) Listed No Post-Acute Service(s) Listed Tests Pending None Special Instructions Common Emergency Awareness Tips Call [...] signs, call to get immediate medical attention! Patient Care team information Care Team Personnel Name: MD Brandi, Toby Barron Position: Referring Member Role: Primary Care Provider Address: [address] Telecom: [phone] Care Team Related Persons Name: MALCOM BURDEN Insurance Providers Guarantor name: Health Plan Information #: 1 Payer: [employer] Member Number: [id number] Policy Number: NA Group Number: [id number] Payer Identifier: [id number] Health Plan Information #: 2 Payer: [employer] Member Number: [id number] Policy Number: NA Group Number: NA Payer Identifier: [id number] Health Plan Information #: 3 Payer: JEROMY AMIN Member Number: NA Policy Number: NA Group Number: NA Payer Identifier: [id number]
--- OUTSIDE RECORDS SUMMARY | 2024-08-18 13:00 | External Medical Summary | Summary of Care ---
Author Name Unknown Organization [facility] Address [address] [facility] [place] [address] Phone [phone] Care Team Providers Care Quality Control Operator Name Role Phone Rao Ochoa MD Primary Care Provider [phone] Reason for Visit * Reason Onset Date Comments Medication Question 08/15/2024 Encounter Details Date Type Department Care Team (Late st Contact Info) Description 08/15/[address] [facility] Ilsa Whitney [address] [place] [phone] Rao Ochoa MD [address] [facility] [address] Medication Question Allergies Active Allergy [...] Tablet 5 Active Vitamin A 4.5 MG (16487 UT) Oral Tablet Take one tablet by [...] cardiac murmurs 11/29/2001 03/02/2017 Overview (11/29/2001): Not Starke on 11/29/01 documented as of this encounter (statuses as of 08/16/2024) Immunizations Immunization Administration Dates Next Due HEP A - Hepatitis A (Adult > 18 yrs) 06/06/2020 Pneumococcal Conjugate Vacci ne, 20-valent ([id number]) 06/24/2022 Seasonal Influenza Virus Vac cine, Unspecified [...] Job 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 * Telephone Encounter - Samantha Avendano CPhT - 08/15/2024 1:24 PM EDT Pharmacy calling about Vitamin A 4.5 MG (67040 UT) Tabs, Take one tablet by mouth daily. The pharmacy is unable to order this strength in. We are able to order Vitamin A 36934 UT Caps. If agreeable, please send 90 day supply to [facility]. Thank you! Thank you, Samantha Avendano Personnel Arbitrator II [facility] 08/15/2024, 1:27 PM documented in this encounter Plan of Treatment Upcoming Encounters Date Type Department Care Team (Late st Contact Info) Description 08/21/2024 10:45 AM EDT Imaging Radiology [facility] [address] [place] [phone] 09/18/2024 3:40 PM EDT Office Visit Gastroenterology, [facility] [address] [phone] Ki [facility] [address] [facility] [place] [address] 10/16/2024 3:40 PM EDT Office Visit Neurology [facility] [address] [facility] [place] [address] Britni De La Cruz MD [address] [facility] [place] [address] 10/31/2024 8:40 AM EDT Office Visit Hepatology, [facility] [address] [place] [phone] Jena Camargo MD [address] [place] [address] 11/06/2024 12:30 PM EDT Office Visit Ophthalmology, [place] [address] [address] Reji Nazario DO [address] [address] Scheduled Procedures Name Priority Associated Diagnoses Date/Ti [...] Communication Carmen Marr Significant Other Health Care Sports Official (appointed verbally by patient or by statute hierarchy) Care Teams Quality Control Operator Relationship Specialty Start Date End Date Rao Ochoa MD [address] [place] [address] PCP - General Internal Medicine 02/05/24 documented as of this encounter
--- OUTSIDE RECORDS SUMMARY | 2024-08-18 13:01 | External Medical Summary | Summary of Care ---
Author Name Unknown Organization [facility] Address [address] [facility] [place] [address] Phone [phone] Care Team Providers Care Welder Fitter Gas Name Role Phone Rao Ochoa MD Primary Care Provider [phone] Encounter Details Date Type Department Care Team (Late st Contact Info) Description 07/04/2024 Result Scan Unspecified Department <No scans attached> Allergies Active Allergy Reactions Criticality Noted Date [...] right eye 07/11/2024 Splenomegaly, not elsewhere classified 5 Peripheral polyneuropathy [...] cardiac murmurs 11/29/2001 03/02/2017 Overview (11/29/2001): Not Leslie on 11/29/01 documented as of this encounter (statuses as of 08/07/2024) Immunizations Name Administration Dates Next Due HEP A - Hepatitis A (Adult > 18 yrs) 06/06/2020 Pneumococcal Conjugate Vacci ne, 20-valent ([id number]) 06/24/2022 Seasonal Influenza Virus Vac cine, Unspecified [...] No 04/25/2024 Does the household have a [facility] source of income? 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 Answer Date of Assessment Author Yes 08/23/2021 12:08 PM EDT documented as of this encounter Plan of Treatment Upcoming Encounters Date Type Department Care Team (Late st Contact Info) Description 08/08/2024 11:30 AM EDT Laboratory Laboratory, [facility]tha [address] [place] [phone] [facility] [address] [address] 08/12/2024 11:00 AM EDT Appointment Radiology, [address] [phone] 08/12/2024 11:00 AM EDT Rehab Services Video Fluoroscopy Rehab, [address] [address] Rehab, Video Therapist [facility] [place] [address] 08/21/2024 10:45 AM EDT Imaging Radiology [facility] [address] [place] [phone] 09/18/2024 3:40 PM EDT Office Visit Gastroenterology, [facility] [address] [place] [phone] Ki Huang MD [address] [place] [address] 10/16/2024 3:40 PM EDT Office Visit Neurology [facility] [place] [address] [place] [address] Britni De La Cruz MD [address] [place] [address] 10/31/2024 8:40 AM EDT Office Visit Hepatology, [facility] [address] [place] [phone] Jena Camargo MD [address] [place] [address] 11/06/2024 12:30 PM EDT Office Visit Ophthalmology, [address]ri[address] [place] [address] Reji Nazario DO [address] [place] [address] Scheduled Procedures Name Priority Associated Diagnoses Date/Ti [...] Procedure Name Priority Date/Time Associated Diagnosis Comments RADIOLOGY SCANNED RESULT 07/04/2024 documented in this encounter Results * RADIOLOGY SCANNED RESULT (07/04/2024) 07/04/2024 us No Physician Data Unknown DIAGNOSTIC RADIOLOGY S ERVICES Final Result documented in this encounter Advance Directives * [...] Communication Carmen Marr Significant Other Health Care Staff Rn (appointed verbally by patient or by statute hierarchy) Care Teams Welder Fitter Gas Relationship Specialty Start Date End Date Rao Ochoa MD [address] [place] [address] [place] [address] PCP - General Internal Medicine 02/05/24 documented as of this encounter
--- OUTSIDE RECORDS SUMMARY | 2024-08-18 13:01 | External Medical Summary | Summary of Care ---
Author Name Unknown Organization [facility] Address [address] [facility] [place] [address] Phone [phone] Care Team Providers Care Head Of Ethics And Compliance Name Role Phone Rao Ochoa MD Primary Care Provider [phone] Reason for Visit * Reason Comments eRx-Medication Refill Encounter Details Date Type Department Care Team (Late st Contact Info) Description 07/31/2024 [facility] [address] [facility] [place] [phone] Kiley Singh MD [address] [facility] [place] [id number] Hypomagnesemia Allergies Active Allergy Reactions Criticality Noted Date Comments Other Allergy (See Comments) Anaphylaxis High 06/21/2018 Bee stings- swelling documented as of this encounter (statuses as of 08/02/2024) Medications Iron (Ferrous Sulfate) 325 (65 Fe) MG Oral Tablet Take by mouth. Activ e Diclofenac Sodium 1 % External Gel (Voltaren) Apply topically to affected area 2 times a day. Apply to area lateral to left hip 150 g 5 03/29/20 23 Active Additional Information Patient not taking.Reported on 07/11/2024 traZODone HCl 50 MG Oral Tablet (Desyrel)Indica tions:Primary insomnia Take 2 Tablets by mouth at [...] tablet by mouth BEFORE BEDTIME 60 Tablet 01/23/20 24 Active DULoxetine HCl 30 MG Oral Capsule Delayed Release Particles (Cymbalta) Take 1 Capsule by mouth in the morning. Do not cut, crush or chew. 30 Capsule 03/19/20 24 Active Atorvastatin Calcium 20 MG Oral Tablet (Lipitor)Indica tions:Dyslipide reta Take 1 Tablet by mouth in the morning. 90 Tablet 04/06/19 25 Active Gabapentin 100 MG Oral Capsule (Neurontin)Kaylin cations:Complai nt of paresthesia take 1 capsule by mouth every morning and AT NOON and BEFORE BEDTIME 90 Capsule 04/11/19 25 Active Pantoprazole Sodium 40 MG Oral Tablet Delayed Release (Protonix)Indic ations:Gastroes ophageal reflux disease Take 1 Tablet by mouth in the morning and 1 Tablet before bedtime. 180 Tablet 04/22/19 25 Active cloNIDine HCl 0.1 MG Oral Tablet (Catapres) Take 1 Tablet by mouth in the morning and 1 Tablet before bedtime. 60 Tablet 04/29/19 25 Active Lactulose 10 GM/15ML Oral Solution (Constulose)Ind ications:Hypera mmonemia (HCC) Take 30 mL by mouth in the morning and 30 mL at noon and 30 mL in the evening and 30 mL before bedtime. 946 mL 07/12/19 25 Active Magnesium Oxide -Mg Supplement 400 (240 Mg) MG Oral Tablet (Mag-Ox)Indicat ions:Hypomagnes emia take 1 tablet by mouth IN THE MORNING AND BEFORE BEDTIME 180 Tablet 08/02/19 25 Active Magnesium Oxide -Mg Supplement 400 (240 Mg) MG Oral Tablet (Mag-Ox)Indicat ions:Hypomagnes emia take 1 tablet by mouth IN THE MORNING AND BEFORE BEDTIME 180 Tablet 04/19/19 25 025 Discontinued Hospital, Clinic, or Other Facility Administered Medication Ordered Dose Route Frequency Start Date End Date Status albuterol sulfate (PROVENTIL) (2.5 MG/3ML) 0.083% inhalation solution 2.5 mgIndications:SOB (shortness of breath) 2.5 mg NEBULIZER Q4H PRN 05/10/2018 Act guzman documented as of this encounter (statuses as of 08/02/2024) Active Problems Problem Noted Date Diagnosed Date [...] as of this encounter (statuses as of 08/02/2024) Resolved Problems Problem Noted Date Diagnosed Date [...] cardiac murmurs 11/29/2001 03/02/2017 Overview (11/29/2001): Not Porter on 11/29/01 documented as of this encounter (statuses as of 08/02/2024) Immunizations Name Administration Dates Next Due HEP A - Hepatitis A (Adult > 18 yrs) 06/06/2020 Pneumococcal Conjugate Vacci ne, 20-valent ([id number]) 06/24/2022 Seasonal Influenza Virus Vac cine, Unspecified [...] 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 Answer Date of Assessment Author Yes 08/23/2021 12:08 PM EDT documented as of this encounter Miscellaneous Notes * Telephone Encounter - Maurice Smith RPh - 08/01/2024 7:16 PM EDT Signed Prescriptions: Disp Refills Magnesium Oxide -Mg Supplement 400 (240 Mg*180 Ta*0 Sig: take 1tablet by mouth IN THE MORNING AND BEFORE BEDTIMEAuthorizing Provider: KILEY SINGH User: MAURICE SMITH documented in this encounter Plan of Treatment Upcoming Encounters Date Type Department Care Team (Late st Contact Info) Description 08/21/2024 10:45 AM EDT Imaging Radiology [place], [place] [address] [place] [phone] 09/18/2024 3:40 PM EDT Office Visit Gastroenterology, [facility] [address] [place] [phone] Ki Huang MD [address] [place] [address] 10/16/2024 3:40 PM EDT Office Visit Neurology [facility] [address] [place] [address] Britni De La Cruz MD [address] [place] [address] 10/31/2024 8:40 AM EDT Office Visit Hepatology, [facility] [address] [place] [phone] Jena Camargo MD [address] [place] [address] 11/06/2024 12:30 PM EDT Office Visit OphthalmologyAndriy [address] [place] [address] Reji Nazario DO [address] [place] [address] Scheduled Procedures Name Priority Associated Diagnoses Date/Ti me COLONOSCOPY FLEXIBLE PROXIMAL DIAGNOSTIC Recall History of colonic polyps ESOPHAGOGASTRODUODENOSCOPY ( EGD), FLEXIBLE, TRANSORAL, DIAGNOSTIC Recall Portal hypertensive gastropathy (HCC) Esophageal varices (HCC) Health Maintenance Due Date Last Done Comments Cologuard 2009 Fecal Occult Blood Test 2009 Sigmoidoscopy 2009 COVID-19 Vaccine ( season) 2023 Depression Screening 04/25/2025 04/25/2024 GFR 05/15/2025 05/15/2024, 0206/2024, 04/23/2024, Additional history exists Albumin/Creatinine Ratio 07/09/2026 [...] as of this encounter Visit Diagnoses Diagnosis Hypomagnesemia Disorders of magnesium metabolism documented in this encounter Advance Directives * [...] Communication Carmen Withalva Significant Other Health Care Student Nurse (appointed verbally by patient or by statute hierarchy) Care Teams Head Of Ethics And Compliance Relationship Specialty Start Date End Date Rao Ochoa MD [address] [place] [address] PCP - General Internal Medicine 02/05/24 documented as of this encounter
--- OUTSIDE RECORDS SUMMARY | 2024-08-18 13:01 | External Medical Summary ---
Author Name Unknown Address Unknown Organization [id number]:[facility] [address] [place] [address] Laboratory Report Ordering Provider Test Date Status FRANCISCO CAO 08/07/2024 11:21:48 Final Observation Date Value Abnormality Reference (Units ) Status Ammonia 08/07/2024 11:21:48 199 Above upper panic limits 11-35 (umol/L) Final Performing Location [facility] - [address] [place] [address]
--- OUTSIDE RECORDS SUMMARY | 2024-08-18 13:01 | External Medical Summary ---
Author Name Unknown Address Unknown Organization [id number]:[facility] - [address] [facility] [place] [address] Laboratory Report Ordering Provider Test Date Status MARISOLBRENT LUQUE 08/07/2024 11:21:48 Final Observation Date Value Abnormality Reference (Units ) Status SYNC LEUKOCYTES IN BLOOD BY AUTOMATED COUNT 08/07/2024 11:21:48 5.24 4.00-10.80 (K/uL) Final Segs 08/07/2024 11:21:48 56.6 40.0-75.0 (%) Final Lymphs % 08/07/2024 11:21:48 18.5 18.0-42.0 (%) Final Monos 08/07/2024 11:21:48 14.9 Above high normal 1.0-11.0 (%) Final Eosinophils 08/07/2024 11:21:48 9.0 Above high normal 0.0-6.0 (%) Final Basos 08/07/2024 11:21:48 0.6 0.0-2.0 (%) Final Immature Granulocyte, Percent 08/07/2024 11:21:48 0.4 0.0-2.0 (%) Final Absolute Segs 08/07/2024 11:21:48 2.97 1.80-7.70 (K/uL) Final Lymphs, absolute 08/07/2024 11:21:48 0.97 Below low normal 1.00-4.80 (K/ul) Final Monos, Abs 08/07/2024 11:21:48 0.78 0.00-1.10 (K/uL) Final Eos, Abs 08/07/2024 11:21:48 0.47 0.00-0.70 (K/uL) Final Basos, Abs 08/07/2024 11:21:48 0.03 0.00-0.20 (K/uL) Final Immature Granulocytes, Number 08/07/2024 11:21:48 0.02 0.00-0.20 (K/uL) Final Performing Location [facility]ATORY [facility] - [address] [facility] [address]
--- OUTSIDE RECORDS SUMMARY | 2024-08-18 13:01 | External Medical Summary ---
Author Name Unknown Address Unknown Organization : Laboratory Report Ordering Provider Test Date Status BRENT HO 08/07/2024 11:21:48 Final Observation Date Value Abnormality Reference (Units ) Status Vitamin A, level 08/07/2024 11:21:48 23 Below low nor mal 38-98 (mcg/dL) Final Vitamin supplementation with in 24 hours prior to
blood draw may affect the accuracy of the results.
This test was developed and its analytical performance
characteristics have been determined by [facility] [employer] [place], [place]. It has
not been cleared or approved by the U.S. Food and Drug
Administration. This assay has been validated pursuant
to the CLIA regulations and is used for clinical
purposes.

Test Performed at:
[facility]
[address] [facility] [place] [address]
Iván Winkler M.D., Ph.D.,Director of Laboratories Performing Location
--- OUTSIDE RECORDS SUMMARY | 2024-08-18 13:01 | External Medical Summary ---
Author Name Unknown Address Unknown Organization [id number]:[facility] - [address] [facility] [place] [address] Laboratory Report Ordering Provider Test Date Status BRENT HO 08/07/2024 11:21:48 Final Observation Date Value Abnormality Reference (Units ) Status BUN 08/07/2024 11:21:48 17 6-20 (mg/dL) Final Creatinine 08/07/2024 11:21:48 0.8 0.6-1.2 (mg/dL) Final Glomerular filtration rate/1.73 sq M.predicted [Volume Rate/Area] in Serum, Plasma or Blood by Creatinine-based formula (CKD-EPI) 08/07/2024 11:21:48 >90 >=60 (mL/min) Final eGFR is calculated based on the CKD-EPI 2020 equation. Sodium 08/07/2024 11:21:48 141 135-146 (m mol/L) Final Potassium 08/07/2024 11:21:48 4.2 3.5-5.1 (m mol/L) Final Cl 08/07/2024 11:21:48 112 Above high normal 98 -107 (mmol/L) Final CO2 08/07/2024 11:21:48 21 Below low normal 22- 32 (mmol/L) Final Anion gap 08/07/2024 11:21:48 8 7-15 (mmol /L) Final Glucose 08/07/2024 11:21:48 104 70-120 (mg /dL) Final Albumin 08/07/2024 11:21:48 3.2 Below low normal 3.8 -5.0 (g/dL) Final AST (Aspartate aminotransferase) 08/07/2024 11:21:48 68 Above high normal 10-50 (U/L) Final Alk Phos 08/07/2024 11:21:48 190 Above high normal 35 -130 (U/L) Final Bilirubin, Total 08/07/2024 11:21:48 1.9 Above high no rmal <=1.2 (mg/dL) Final Calcium 08/07/2024 11:21:48 8.5 8.4-10.2 ( mg/dL) Final Protein 08/07/2024 11:21:48 5.6 Below low normal 6.0 -8.3 (g/dL) Final ALT (Alanine aminotransferase) 08/07/2024 11:21:48 55 Above high normal 10-50 (U/L) Final Performing Location [facility]ORY [facility] - [address] [facility] [address]
--- OUTSIDE RECORDS SUMMARY | 2024-08-18 13:01 | External Medical Summary ---
Author Name Unknown Address Unknown Organization [id number]:LABORATORY [facility] - [address] [place] [address] Laboratory Report Ordering Provider Test Date Status BRENT HO 08/07/2024 11:21:48 Final Observation Date Value Abnormality Reference (Units ) Status WBC, Total 08/07/2024 11:21:48 5.24 4.00-10.8 0 (K/uL) Final RBC 08/07/2024 11:21:48 4.48 4.50-5.25 (M/uL) Final Hemoglobin 08/07/2024 11:21:48 15.1 14.0-16.8 (g/dL) Final Anemia reflex testing trigge rs on a HGB < 12.0 for Females and HGB < 13.0 for Males in accordance with the WHO Anemia Guidelines HCT 08/07/2024 11:21:48 45.5 40.0-48.4 (%) Final MCV 08/07/2024 11:21:48 101.6 82.0-99.5 (fL) Final MCH 08/07/2024 11:21:48 33.7 27.0-34.0 (pg) Final MCHC 08/07/2024 11:21:48 33.2 32.0-36.0 (g/dL) Final RDW 08/07/2024 11:21:48 14.6 11.5-15.5 (%) Final Platelets 08/07/2024 11:21:48 39 Below low normal 140 -400 (K/uL) Final MPV 08/07/2024 11:21:48 15.8 6.6-11.1 ( fL) Final Nucleated erythrocytes/100 leukocytes [Ratio] in Blood by Automated count 08/07/2024 11:21:48 0 <=0 (/100 WBCs) Fi nal Performing Location [facility] - [address] [place] [address]
--- NOTE | 2024-08-18 13:02 | Emergency Department Note ---
Impression & Plan Acute confusion, Encephalopathy, hepatic, Left rib fracture, Traumatic injury, Enteritis ED Provider Note CHIEF COMPLAINT: Fall from 4 feet with head strike HISTORY OF PRESENTING ILLNESS: Patient is a 59-year-old male who presents to the emergency department with his today after a 4 foot fall off his porch onto pavement. He has a history of alcoholic cirrhosis of the liver with frequent episodes of hepatic encephalopathy. He reports landing on his back with a head strike. He does not take any blood thinners. His primary complaint is the right tib-fib to the ankle and the foot with pain. He denies loss of consciousness, blurred vision, visual changes, or headache. does report a recent surgery to the right eye the left an air bubble and erythema which is normal. He denies chest pain, sob, breathing difficulties, abdominal pain, headache, fevers/chills, blood in stool or urine, any recent illness, or any recent travel. REVIEW OF SYSTEMS: See HPI for pertinent positives and pertinent negatives. ALLERGIES: Bees MEDICATIONS: See below PAST MEDICAL HISTORY: See below PHYSICAL EXAM: Primary Survey Airway: Intact Breathing: Normal, breath sounds equal bilaterally Circulation: Skin warm, well perfused, capillary refill less than 2 seconds Disability Pupils: Right: reactive to light, 2mm, brisk, Left: reactive to light but sluggish, 3mm (recent surgery) GCS: 15, E = 4 V= 5 M= 6 motor Function: Moves all extremities, increased tenderness to the RLE. Sensory: No deficits, minor numbness to the RLE. VITALS: Vitals are noted on the nurse's note and reviewed by myself. Vital signs stable. Secondary Survey GENERAL: 59-year-old male, in no acute distress, non-diaphoretic, well-developed well-nourished. SKIN: The skin was without obvious lacerations. An abrasion is noted to the right mid tib/fib. Capillary reflex less than 2 seconds. HEAD: Normocephalic atraumatic. EARS: External auditory canals clear, tympanic membranes pearly summers without erythema or effusion bilaterally. No hemotympanum. No holloway sign. No mastoid tenderness. EYES: Left pupil 2mm round and reactive to light and accommodation. Right pupil 3mm sluggish (recent surgery with air bubble 1.5 weeks ago) Conjunctivae without injection, sclerae without icterus. Extraocular movements intact. NOSE: Patent, turbinates without inflammation or discharge. No sinus tenderness. No septal hematoma or bleeding. FACE: No facial bone tenderness. Full range of motion of the jaw without tenderness. MOUTH: Mucous membranes moist. Pharynx without erythema or exudate. Uvula midline. Airway patent. Tongue does not deviate. NECK: Supple without nuchal rigidity. Cervical spine is tende- cervical collar placed. No JVD. HEART: Regular rate and rhythm without murmurs gallops or rubs. LUNGS: Clear to auscultation bilaterally without wheezes, rales or rhonchi. No dullness to percussion. No retractions or accessory muscle use. No chest wall tenderness. ABDOMEN: Positive bowel sounds x 4. Soft but tender in all 4 quadrants on palpation. MUSCULOSKELETAL: No tenderness of the thoracic or lumbar spine. No tenderness with pelvic rocking. Full range of motion without tenderness to palpation in the bilateral upper and LLE. Strength 5/5 in bilateral upper extremities and left lower extremity. Decreased ROM to the right lower extremity. Peripheral pulses 2+. NEURO: GCS: 15. Patient was alert and oriented to person place and time. Normal sensation to light and sharp touch. Slight numbness to the right lower extremity. RLE has swelling to the mid tib/fib area with pain to the ankle/foot. Negative Romberg and pronator drift. Cerebellar function intact. No focal neurological deficits. DIFFERENTIAL DIAGNOSIS: Differential diagnosis includes closed head injury, concussion, subarachnoid hemorrhage, epidural hematoma, subdural hematoma, skull fracture, cervical spine fracture, abdominal trauma, chest trauma, pneumothorax, skeletal fractures, hematomas, among others. ED COURSE AND MEDICAL DECISION MAKING: HISTORY FROM INDEPENDENT HISTORIAN: History was provided by the patient and and his who is at bedside. I examined the patient for complaints of . A physical exam and history were performed. Nursing notes, EMR, and medication list were personally reviewed. MEDICATIONS GIVEN: An IV lock was placed. The patient was given morphine 4 mg, Zofran 4 mg and had improvement with pain and nausea. I considered the use of narcotics on this patient due to his pain in multiple locations and mechanism of injury. He was given morphine 4 mg x 2 doses, fentanyl 50 mcg with improvement in pain. Patient was also treated with a dose of lactulose 30 g for an elevated ammonia level of 95. MONITOR: Continuous monitoring analyst: Order was placed for continuous monitoring analyst. Patient was placed on the monitoring analyst and continuous pulse ox. Patient was noted to be in normal sinus rhythm at an initial rate of 98 bpm per my interpretation. EKG: EKG was interpreted by myself as normal sinus rhythm. INTERPRETATION OF LABS: An IV lock was placed and labs were drawn. I interpreted the labs with full lab results as below in the lab section of this note. Laboratory results pertinent to the emergent complaint are discussed in the MDM section below. The patient was advised to follow up with their PCP and/or specialist(s) for further outpatient monitoring and management of any abnormal results. There was no leukocytosis, anemia. Platelet count is 40 which appears to be consistent with his previous lab work from July. PT is 13.3, INR is 1.2. Bilirubin is 2.3, AST 80, ALT 54, alkaline phosphatase 237. Ammonia 95. The urinalysis was negative for leukocytes, nitrates, bacteria. INTERPRETATION OF IMAGING: Imaging studies were interpreted by myself and read by radiology as per the imaging section of this note. The patient was advised to follow up with their PCP and/or specialist(s) for further outpatient management of any non-emergent abnormal findings. The CT scans of the thoracic spine, lumbar spine, chest, abdomen and pelvis showed an acute left rib fracture of ribs 7, 8, 9. Cirrhotic morphology of the liver with evidence of portal hypertension including numerous collateral varicosities and splenomegaly. Diffuse fluid filling of the small and large bowel suggestive of enteritis. No fracture or traumatic subluxation of the thoracic or lumbar spine. The CT of the head was negative for any acute findings. X-ray of the tibia and fibula showed some soft tissue swelling without acute fracture or dislocation. EXTERNAL RECORDS REVIEWED: Patient's previous hospital admission stays CHRONIC MEDICAL/SOCIAL CONDITIONS AFFECTING CARE: No social concerns were identified as barriers to patients care. ESCALATION OF CARE CONSIDERED: I considered admission on this patient due to the increased confusion and unsteady gait. CONSULTATIONS: I had a meaningful discussion about this patient with Dr. Cooper who agrees with my assessment and the treatment plan. I spoke with Dr. Trevino, hospitalist for admission. SUMMARY: I evaluated the patient in the emergency department today for complaints of a 4 foot fall with head strike. On initial assessment, the patient had diffuse abdominal pain, posterior head pain, and concern for an open fracture of the right tib/fib. A trauma alert was called, Dr. Cooper came to the bedside to also evaluate the patient. Cervical collar was placed and C-spine precautions taken. He had a briseno scan ordered, see above interpretation. Prior going to CT, nursing noted the patient had grown significantly more confused. I evaluated the patient again at bedside with no changes to original physical assessment aside from he was unable to provide the month or details of his fall/the amount of steps to get into his home. On review of the patients medical record he had a history of hepatic encephalopathy and acute confusion secondary to alcoholic cirrhosis of the liver. There was no leukocytosis, anemia. Platelet count is 40 which appears to be consistent with his previous lab work from July. PT is 13.3, INR is 1.2. Bilirubin is 2.3, AST 80, ALT 54, alkaline phosphatase 237. Ammonia 95. The urinalysis was negative for leukocytes, nitrates, bacteria. Patient was given morphine 4 mg x 2 doses, fentanyl 50 mcg, Zofran 4 mg, and lactulose 30 g for an elevated ammonia level. Dr. Trevino accepted the patient for admission to the hospital. DIAGNOSIS: hepatic encephalopathy, left rib fractures 7th-9th, acute confusion, traumatic fall, enteritis TREATMENT PLAN/DISCHARGE INSTRUCTIONS: Admit as inpatient to hospitalist service. Past Med/Surg History Problem List (Updated 08/18/24 @ 16:48 by YOGESH Mora) Enteritis (Acute) Traumatic injury (Acute) Left rib fracture (Acute) Basilar artery aneurysm Other toxic encephalopathy Left axillary pain (Acute) Acute hepatic encephalopathy (Acute) Chest discomfort Hepatic encephalopathy (Acute) Atypical chest pain (Acute) Encephalopathy, hepatic (Acute) Depression GERD (gastroesophageal reflux disease) Acute confusion (Acute) Hyperammonemia (Acute) Thrombocytopenia (Acute) Acute hepatic encephalopathy (Acute) History of total left hip replacement (Acute) Bilateral leg pain (Acute) Altered mental status (Acute) Confusion Avascular necrosis of femur Hip pain Ambulatory dysfunction (Acute) Hyperammonemia (Acute) Acute pain of left hip (Acute) Alcoholic cirrhosis Dilated aortic root Acute alteration in mental status (Acute) Thrombocytopenia (Acute) Bilateral arm weakness (Acute) Acute hepatic encephalopathy (Acute) H/O angioedema (Chronic) ongoing, follows with allergy Elevated LFTs (Acute) HTN (hypertension) (Chronic) Acid reflux Abnormal PFT Thrombocytopenia UTI (urinary tract infection) Cirrhosis of liver Cough Encounter for pre-operative examination RUQ pain Insomnia (Chronic) Intractable right upper quadrant abdominal pain (Acute) GERD (gastroesophageal reflux disease) (Chronic) Migraine (Chronic) Medical History History of ascites Acute alteration in mental status Nausea HLD (hyperlipidemia) Hypertension Hyperlipidemia Surgical History History of esophagogastroduodenoscopy (EGD) History of colonoscopy History of bowel resection 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 History of appendectomy History of tooth extraction Family History Father Hearing loss Hypertension Stroke Heart disease Other No pertinent family history in first degree relatives Denies family history of No family history of adverse response to anesthesia No family history of bleeding disorder Allergies Asthma Social History Smoking Status: Never smoker Tobacco Type: Cigarettes Cigarettes Per Day: 1; Second Hand Exposure: No; Do You Dip or Chew Tobacco: No; Hx Alcohol Use: No Hx Substance Use: No Preferred Language: Syriac Communication Ability: Effective [employer] Required: No Beliefs That Will Affect Care: None marital status: Current Living Situation: Spouse Current Living Situation Comment: LIVES WITH GIRLFRIEND 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 Safe at Home: Yes Assistive Devices: None Allergies Allergies Allergy/AdvReac Type Severity Reaction Status Date / Time bee venom protein (honey bee) Allergy Severe Anaphylaxis--CARRIES Verified 08/18/24 16:59 AN EPIPEN Home Meds Home Medications Medication Instructions Recorded Confirmed atorvastatin 20 mg tablet 20 mg PO QAM 04/20/24 08/18/24 duloxetine 30 mg capsule,delayed 30 mg PO QAM 04/20/24 08/18/24 release ferrous sulfate 325 mg (65 mg 325 mg PO QAM 04/20/24 08/18/24 iron) tablet furosemide 40 mg tablet 40 mg PO QAM 04/20/24 08/18/24 gabapentin 100 mg capsule 100 mg PO TID 04/20/24 08/18/24 lactulose 10 gram/15 mL oral 30 ml PO QID 04/20/24 08/18/24 solution magnesium oxide 400 mg (241.3 mg 400 mg PO BID 04/20/24 08/18/24 magnesium) tablet pantoprazole 40 mg tablet,delayed 40 mg PO BID 04/20/24 08/18/24 release (Protonix) rifaximin 550 mg tablet (Xifaxan) 550 mg PO BID 04/20/24 08/18/24 clonidine HCl 0.1 mg tablet 0.1 mg PO BID 08/18/24 08/18/24 cyanocobalamin (vitamin B-12) 1,000 mcg PO DAILY 08/18/24 08/18/24 1,000 mcg tablet (Vitamin B-12) meloxicam 15 mg tablet 15 mg PO DAILY 08/18/24 08/18/24 [id number] 3.5 1 drp OPR QID 08/18/24 08/18/24 mg/mL-10,000 unit/mL-0.1% eye drops trazodone 50 mg tablet 50 - 100 mg PO HS 08/18/24 08/18/24 vitamin A 3,000 mcg (10,000 unit) 3,000 mcg PO DAILY 08/18/24 08/18/24 capsule Results & Data (ED) Vital Signs Vital Signs - 24 hr 08/18/24 12:53 08/18/24 13:38 08/18/24 13:38 Temperature 36.5 C 36.6 C 36.6 C Temperature Source Temporal Artery Scan Oral Pulse Rate 100 H 96 H Pulse Rate [Apical] 94 H Pulse Rhythm Pulse Rhythm [Apical] Regular Pulse Strength [Apical] Respiratory Rate 16 23 14 Respiratory Effort / Characteristics Non-Labored Spontaneous Non-Labored Respiratory Depth Normal Normal Respiratory Pattern Blood Pressure 109/69 142/90 H Blood Pressure [Right Arm] 142/90 H Blood Pressure Mean 82 Blood Pressure Mean [Right Arm] 107 Blood Pressure Position Sitting Blood Pressure Position [Right Arm] Lying Pulse Oximetry 95 95 95 Oxygen Delivery Method Room Air Room Air Room Air Oxygen Flow Rate 0 Sepsis Recent Fever Within 48 Hours No Sepsis New/Unexplained Change in Mental Status N/A Sepsis Action Taken by Nursing No Action Required 08/18/24 13:52 08/18/24 13:52 08/18/24 14:37 Temperature Temperature Source Pulse Rate 98 H Pulse Rate [Apical] 93 H Pulse Rhythm Regular Pulse Rhythm [Apical] Regular Pulse Strength [Apical] Normal Respiratory Rate 15 20 Respiratory Effort / Characteristics Non-Labored Respiratory Depth Normal Respiratory Pattern Blood Pressure Blood Pressure [Right Arm] 148/94 H Blood Pressure Mean Blood Pressure Mean [Right Arm] 112 Blood Pressure Position Blood Pressure Position [Right Arm] Lying Pulse Oximetry 95 96 96 Oxygen Delivery Method Room Air Room Air Room Air Oxygen Flow Rate Sepsis Recent Fever Within 48 Hours Sepsis New/Unexplained Change in Mental Status Sepsis Action Taken by Nursing 08/18/24 15:00 08/18/24 15:21 08/18/24 15:52 Temperature Temperature Source Pulse Rate 83 Pulse Rate [Apical] 89 90 Pulse Rhythm Pulse Rhythm [Apical] Pulse Strength [Apical] Respiratory Rate 19 18 Respiratory Effort / Characteristics Respiratory Depth Respiratory Pattern Blood Pressure Blood Pressure [Right Arm] 155/95 H 155/95 H Blood Pressure Mean Blood Pressure Mean [Right Arm] 115 115 Blood Pressure Position Blood Pressure Position [Right Arm] Pulse Oximetry 96 96 Oxygen Delivery Method Room Air Oxygen Flow Rate Sepsis Recent Fever Within 48 Hours Sepsis New/Unexplained Change in Mental Status Sepsis Action Taken by Nursing 08/18/24 16:00 08/18/24 16:00 08/18/24 17:00 Temperature Temperature Source Pulse Rate Pulse Rate [Apical] 86 86 81 Pulse Rhythm Pulse Rhythm [Apical] Pulse Strength [Apical] Respiratory Rate 18 18 14 Respiratory Effort / Characteristics Non-Labored Spontaneous Respiratory Depth Normal Normal Normal Respiratory Pattern Blood Pressure Blood Pressure [Right Arm] 160/101 H 123/90 144/94 H Blood Pressure Mean Blood Pressure Mean [Right Arm] 120 101 110 Blood Pressure Position Blood Pressure Position [Right Arm] Pulse Oximetry 96 97 96 Oxygen Delivery Method Room Air Room Air Room Air Oxygen Flow Rate Sepsis Recent Fever Within 48 Hours Sepsis New/Unexplained Change in Mental Status Sepsis Action Taken by Nursing 08/18/24 17:28 08/18/24 17:30 08/18/24 18:00 Temperature Temperature Source Pulse Rate 95 H Pulse Rate [Apical] 95 H 90 Pulse Rhythm Regular Pulse Rhythm [Apical] Pulse Strength [Apical] Respiratory Rate 18 17 17 Respiratory Effort / Characteristics Respiratory Depth Normal Respiratory Pattern Blood Pressure Blood Pressure [Right Arm] 145/95 H 132/90 Blood Pressure Mean Blood Pressure Mean [Right Arm] 111 104 Blood Pressure Position Blood Pressure Position [Right Arm] Pulse Oximetry 94 95 95 Oxygen Delivery Method Room Air Room Air Room Air Oxygen Flow Rate Sepsis Recent Fever Within 48 Hours Sepsis New/Unexplained Change in Mental Status Sepsis Action Taken by Nursing 08/18/24 20:49 08/18/24 21:59 Temperature Temperature Source Pulse Rate 87 Pulse Rate [Apical] 87 Pulse Rhythm Pulse Rhythm [Apical] Pulse Strength [Apical] Respiratory Rate 18 18 Respiratory Effort / Characteristics Non-Labored Spontaneous Respiratory Depth Normal Respiratory Pattern Regular Blood Pressure 141/80 H Blood Pressure [Right Arm] 150/103 H Blood Pressure Mean Blood Pressure Mean [Right Arm] 118 Blood Pressure Position Blood Pressure Position [Right Arm] Semi-fowlers Pulse Oximetry 94 94 Oxygen Delivery Method Room Air Room Air Oxygen Flow Rate Sepsis Recent Fever Within 48 Hours Sepsis New/Unexplained Change in Mental Status Sepsis Action Taken by Nursing Laboratory Data 08/18/24 13:26 08/18/24 13:26 Lab Results 08/18/24 08/18/24 08/18/24 Range/Units 13:26 13:32 14:20 WBC 7.42 (4.8-10.8) K/ul RBC 4.49 L (4.70-6.10) M/uL Hgb 15.3 (14.0-18.0) g/dl POC Hgb 15.0 (14.0-18.0) g/dl Hct 43.3 (42.0-52.0) % POC Hct 44 (42-52) % MCV 96.4 (80.0-100.0) fL MCH 34.1 H (25.0-34.0) pg MCHC 35.3 (32.0-36.0) g/dL RDW Std Deviation 53.7 H (36.4-46.3) fL RDW Coeff of Fabiola 15.0 H (11.5-14.5) % Plt Count 40 L (130-400) K/uL MPV 12.2 (9.4-12.4) fL Immature Gran % (Auto) 0.3 % Neut % (Auto) 72.0 % Lymph % (Auto) 12.5 % Alfalfa % (Auto) 10.9 % Eos % (Auto) 3.5 % Baso % (Auto) 0.8 % Neut # (Auto) 5.34 (1.40-6.50) K/uL Lymph # (Auto) 0.93 L (1.20-3.40) K/uL Alfalfa # (Auto) 0.81 H (0.11-0.59) K/uL Eos # (Auto) 0.26 (0.00-0.50) K/uL Baso # (Auto) 0.06 (0.00-0.20) K/uL Immature Gran # (Auto) 0.02 (0.01-0.20) K/uL PT Cancelled 13.3 H INR Cancelled 1.2 H APTT Cancelled 30 PTT Ratio Cancelled 1.1 POC Sodium 146 H (135-144) mmol/L Sodium 143 (136-145) mmol/L POC Potassium 3.7 (3.3-5.0) mmol/L Potassium 3.8 (3.5-5.1) mmol/L POC Chloride 112 (101-112) mmol/L Chloride 114 H (98-107) mmol/L Carbon Dioxide 21 (21-32) mmol/L POC Total CO2 19 L (24-31) mmol/L Anion Gap 8 (3-11) POC Anion Gap 20.0 (16-25) mmol/L POC BUN 15 (7-18) mg/dl BUN 16 (6-23) mg/dl Creatinine 1.23 (0.6-1.4) mg/dl POC Creatinine 1.2 (0.6-1.3) mg/dl Est Cr Clr Drug Dosing 75.2 ml/min eGFR 67.21 BUN/Creatinine Ratio 13.0 (10-20) Glucose 150 H (70-99(Fasting)) mg/dl POC Glucose (other) 143 H (70-99) mg/dl Calcium 8.9 (8.6-10.3) mg/dl POC Ioniz Calcium Doug 1.18 (1.12-1.32) mmol/l Total Bilirubin 2.3 H (0.2-1.0) mg/dl AST 80 H (13-39) U/L ALT 54 H (7-52) U/L Alkaline Phosphatase 237 H (34-104) U/L Ammonia Cancelled Total Protein 6.9 (6.0-8.3) gm/dl Albumin 3.4 (3.4-5.0) gm/dl Globulin 3.5 (2.5-4.0) gm/dl Albumin/Globulin Ratio 1.0 (0.9-2) Lipase 30 (11-82) U/L Urine Color Urine Appearance (Clear) Urine pH (4.5-7.5) Ur Specific [place] (1.000-1.030) Urine Protein (Negative) Urine Glucose (UA) (Negative) Urine Ketones (Negative) Urine Blood (Negative) Urine Nitrite (Negative) Urine Bilirubin (Negative) Urine Urobilinogen (Negative) Ur Leukocyte Esterase (Negative) Urine Comment Ethyl Alcohol mg/dL < 10.0 (<10.0) mg/dl 08/18/24 08/18/24 Range/Units 15:08 15:13 WBC (4.8-10.8) K/ul RBC (4.70-6.10) M/uL Hgb (14.0-18.0) g/dl POC Hgb (14.0-18.0) g/dl Hct (42.0-52.0) % POC Hct (42-52) % MCV (80.0-100.0) fL MCH (25.0-34.0) pg MCHC (32.0-36.0) g/dL RDW Std Deviation (36.4-46.3) fL RDW Coeff of Fabiola (11.5-14.5) % Plt Count (130-400) K/uL MPV (9.4-12.4) fL Immature Gran % (Auto) % Neut % (Auto) % Lymph % (Auto) % Alfalfa % (Auto) % Eos % (Auto) % Baso % (Auto) % Neut # (Auto) (1.40-6.50) K/uL Lymph # (Auto) (1.20-3.40) K/uL Alfalfa # (Auto) (0.11-0.59) K/uL Eos # (Auto) (0.00-0.50) K/uL Baso # (Auto) (0.00-0.20) K/uL Immature Gran # (Auto) (0.01-0.20) K/uL PT INR APTT PTT Ratio POC Sodium (135-144) mmol/L Sodium (136-145) mmol/L POC Potassium (3.3-5.0) mmol/L Potassium (3.5-5.1) mmol/L POC Chloride (101-112) mmol/L Chloride (98-107) mmol/L Carbon Dioxide (21-32) mmol/L POC Total CO2 (24-31) mmol/L Anion Gap (3-11) POC Anion Gap (16-25) mmol/L POC BUN (7-18) mg/dl BUN (6-23) mg/dl Creatinine (0.6-1.4) mg/dl POC Creatinine (0.6-1.3) mg/dl Est Cr Clr Drug Dosing ml/min eGFR BUN/Creatinine Ratio (10-20) Glucose (70-99(Fasting)) mg/dl POC Glucose (other) (70-99) mg/dl Calcium (8.6-10.3) mg/dl POC Ioniz Calcium Doug (1.12-1.32) mmol/l Total Bilirubin (0.2-1.0) mg/dl AST (13-39) U/L ALT (7-52) U/L Alkaline Phosphatase (34-104) U/L Ammonia 95.0 H Total Protein (6.0-8.3) gm/dl Albumin (3.4-5.0) gm/dl Globulin (2.5-4.0) gm/dl Albumin/Globulin Ratio (0.9-2) Lipase (11-82) U/L Urine Color Yellow Urine Appearance Clear (Clear) Urine pH 5.5 (4.5-7.5) Ur Specific [place] > 1.045 H (1.000-1.030) Urine Protein Negative (Negative) Urine Glucose (UA) Negative (Negative) Urine Ketones Trace H (Negative) Urine Blood Negative (Negative) Urine Nitrite Negative (Negative) Urine Bilirubin Negative (Negative) Urine Urobilinogen Negative (Negative) Ur Leukocyte Esterase Negative (Negative) Urine Comment Ethyl Alcohol mg/dL (<10.0) mg/dl Administered Medications Morphine Sulfate (Morphine Sulfate 2 Mg/Ml Carp) 1 mg IV Q3H PRN PRN Reason: Pain 7-10 Stop: 09/01/24 17:29 Last Admin: 08/18/24 19:40 Dose: 1 mg Documented By: EMB Discontinued Medications Fentanyl Citrate (Fentanyl Citrate Pf 100 Mcg/2 Ml Vial) 50 mcg IV NOW STA Stop: 08/18/24 14:24 Last Admin: 08/18/24 14:30 Dose: 50 mcg Documented By: BLD Ceftriaxone Sodium (Rocephin) 2,000 mg in 50 mls @ 100 mls/hr IV NOW STA Stop: 08/18/24 20:46 Last Infusion: 08/18/24 21:29 Dose: Infused Documented By: Admin: 08/18/24 20:46 Dose: 100 mls/hr Documented By: WINNIE Ioversol (Optiray 320 100ml) 93 ml IV ONCE ONE Stop: 08/18/24 13:57 Last Admin: 08/18/24 13:56 Dose: 93 ml Documented By: CONRAD Lactulose (Lactulose Syrup 30 Gm/45 Ml Udp) 30 gm PO NOW STA Stop: 08/18/24 16:06 Last Admin: 08/18/24 16:44 Dose: 30 gm Documented By: FRANK Lactulose (Lactulose Syrup 30 Gm/45 Ml Udp) 30 gm PO NOW STA Stop: 08/18/24 20:43 Last Admin: 08/18/24 20:48 Dose: 30 gm Documented By: WINNIE Lidocaine (Lidocaine 5% 1 Patch) 1 patch TD NOW STA Stop: 08/18/24 16:29 Last Admin: 08/18/24 16:45 Dose: 1 patch Documented By: FRANK Morphine Sulfate (Morphine Sulfate 4 Mg/Ml 1 Ml Carp\Vial) 4 mg IV NOW STA Stop: 08/18/24 13:27 Last Admin: 08/18/24 14:12 Dose: 4 mg Documented By: GLORIA Morphine Sulfate (Morphine Sulfate 4 Mg/Ml 1 Ml Carp\Vial) 4 mg IV NOW STA Stop: 08/18/24 16:28 Last Admin: 08/18/24 16:45 Dose: 4 mg Documented By: FARNK Ondansetron HCl (Ondansetron Inj 2 Mg/Ml 2 Ml Vial) 4 mg IV NOW STA Stop: 08/18/24 13:27 Last Admin: 08/18/24 14:12 Dose: 4 mg Documented By: GLORIA Imaging Data Radiologist's Impression: Cervical Spine CT 08/18/24 13:13 CT cervical spine without IV contrast History: Trauma Comparison: None Technique: Using multidetector thin collimation helical acquisition technique, axial, coronal and sagittal CT images through the cervical spine were obtained without intravenous contrast. Dose reduction techniques were achieved by using automatic exposure control and/or adjustment of mA and/or kV according to patient size and/or use of iterative reconstruction technique. Findings: The cervical vertebrae are normally aligned. Straightened cervical lordosis. No acute fracture or subluxation. No prevertebral edema. There is no disc height narrowing at any level. Moderate hypertrophic atlantodental degenerative change. Advanced degenerative change and mature bony bridging seen bilaterally at the C2-3 facet joints. No abnormality of the paraspinous soft tissues. Impression: No acute fracture or traumatic subluxation. Electronically signed by Cachorro Pleitez 08-18-2024 2:42 PM Chest X-Ray 08/18/24 13:13 XR chest 1V portable HISTORY: 59 years-old Male Trauma COMPARISON: 07/30/2024 TECHNIQUE: AP view of the chest FINDINGS: Cardiomediastinal and hilar silhouettes are within normal limits. No pneumothorax, pleural effusion or airspace consolidation. Bones of the chest appear grossly intact. IMPRESSION: No acute process. ACT 112: Negative or not required by law. The above report was generated using voice recognition software. It may contain grammatical, syntax or spelling errors. Electronically signed by: Gerardo Brown M.D. 08/18/2024 1:42 PM Foot X-Ray 08/18/24 13:13 XR tibia fibula RT 2V, XR foot RT min 3V routine HISTORY: 59 years-old Male trauma acute pain of the right lower extremity status post fall COMPARISON: None TECHNIQUE: 2 views of the right tibia and fibula with 3 views of the right foot FINDINGS: TIBIA/FIBULA: Mid to lower leg anterolateral soft tissue swelling. No acute fracture, dislocation or opaque foreign body. FOOT: Hallux valgus. No acute fracture or dislocation. IMPRESSION: Soft tissue swelling without acute fracture or dislocation. ACT 112: Negative or not required by law. The above report was generated using voice recognition software. It may contain grammatical, syntax or spelling errors. Electronically signed by: Gerardo Brown M.D. 08/18/2024 1:[address] 08/18/24 13:13 CT head without contrast History: Trauma Comparison: None Technique: Using multidetector thin collimation helical acquisition technique, axial, coronal and sagittal CT images from the skull base to the vertex were obtained without intravenous contrast. Dose reduction techniques were achieved by using automatic exposure control and/or adjustment of mA and/or kV according to patient size and/or use of iterative reconstruction technique. Findings: No intracranial hemorrhage, mass-effect, or midline shift. The ventricles are proportionate to the cerebral sulci. The summers to white matter differentiation of the cerebral hemispheres is preserved. The basal cisterns are patent. The visualized paranasal sinuses are clear. Mastoid air cells are clear. Impression: No acute intracranial pathology. Electronically signed by Cachorro Pleitez 08-18-2024 4:29 PM Tibia/Fibula X-Ray 08/18/24 13:13 XR tibia fibula RT 2V, XR foot RT min 3V routine HISTORY: 59 years-old Male trauma acute pain of the right lower extremity status post fall COMPARISON: None TECHNIQUE: 2 views of the right tibia and fibula with 3 views of the right foot FINDINGS: TIBIA/FIBULA: Mid to lower leg anterolateral soft tissue swelling. No acute fracture, dislocation or opaque foreign body. FOOT: Hallux valgus. No acute fracture or dislocation. IMPRESSION: Soft tissue swelling without acute fracture or dislocation. ACT 112: Negative or not required by law. The above report was generated using voice recognition software. It may contain grammatical, syntax or spelling errors. Electronically signed by: Gerardo Brown M.D. 08/18/2024 1:45 PM Abdomen/Pelvis CT 08/18/24 13:25 EXAMINATION: CT of the chest, abdomen and pelvis, and the thoracic and lumbar spine performed after the administration of IV contrast TECHNIQUE: Helical CT images from the lung apices through the symphysis pubis were obtained with contrast. Coronal and sagittal reformatted images were generated at a workstation for further assessment. Dose reduction techniques were achieved by using automatic exposure control and/or adjustment of mA and/or kV according to patient size and/or use of iterative reconstruction technique. COMPARISON: None HISTORY: Trauma FINDINGS: Lines and tubes: None Mediastinum/Neck Base: No thyroid nodules. Central tracheobronchial tree is patent. Heart size is normal. No pericardial effusion. Normal thoracic vasculature. No thoracic lymphadenopathy. Moderate coronary calcification. Lungs: No consolidation. No pleural effusion or pneumothorax. Liver: Nodular contour of the liver compatible with cirrhosis. A small cyst is seen in the caudate lobe, as well as a few in the right lobe. No suspicious liver lesions. Portal veins appear patent. Numerous, large collateral varices throughout the right upper abdomen. Gallbladder: Cholecystectomy Spleen: Enlarged, 14.1 cm Pancreas: No suspicious pancreatic lesions. The pancreatic duct is not dilated. Adrenal glands: No adrenal nodules. Kidneys: No hydronephrosis or obstructing renal stones. Bladder / Pelvic organs: Unremarkable. Bowel: No bowel obstruction. No abnormal bowel wall thickening. The appendix is unremarkable. Diffusely fluid-filled small and large bowel compatible with enteritis. Lymph nodes: No retroperitoneal, mesenteric, or pelvic lymphadenopathy. Peritoneum / Retroperitoneum: No free fluid or air within the abdomen. Vessels: No infrarenal aortic aneurysm. Mild aortoiliac calcification. Bones and soft tissues: Degenerative changes of the spine. No acute osseous normality. Total left hip arthroplasty. Chronic bilateral L5 spondylolysis without significant spondylolisthesis. Acute anterior fractures at left ribs 9, 8, 7 IMPRESSION: 1. Acute left ribs 7, 8 and 9 fractures. 2. Cirrhotic morphology of the liver, and evidence of portal hypertension including numerous collateral varicosities, and splenomegaly. 3. Diffuse fluid filling of the small and large bowel, suggestive of enteritis. 4. No fracture or traumatic subluxation of the thoracic or lumbar spine. Electronically signed by Cachorro Pleitez 08-18-2024 2:[address] 08/18/24 13:25 EXAMINATION: CT of the chest, abdomen and pelvis, and the thoracic and lumbar spine performed after the administration of IV contrast TECHNIQUE: Helical CT images from the lung apices through the symphysis pubis were obtained with contrast. Coronal and sagittal reformatted images were generated at a workstation for further assessment. Dose reduction techniques were achieved by using automatic exposure control and/or adjustment of mA and/or kV according to patient size and/or use of iterative reconstruction technique. COMPARISON: None HISTORY: Trauma FINDINGS: Lines and tubes: None Mediastinum/Neck Base: No thyroid nodules. Central tracheobronchial tree is patent. Heart size is normal. No pericardial effusion. Normal thoracic vasculature. No thoracic lymphadenopathy. Moderate coronary calcification. Lungs: No consolidation. No pleural effusion or pneumothorax. Liver: Nodular contour of the liver compatible with cirrhosis. A small cyst is seen in the caudate lobe, as well as a few in the right lobe. No suspicious liver lesions. Portal veins appear patent. Numerous, large collateral varices throughout the right upper abdomen. Gallbladder: Cholecystectomy Spleen: Enlarged, 14.1 cm Pancreas: No suspicious pancreatic lesions. The pancreatic duct is not dilated. Adrenal glands: No adrenal nodules. Kidneys: No hydronephrosis or obstructing renal stones. Bladder / Pelvic organs: Unremarkable. Bowel: No bowel obstruction. No abnormal bowel wall thickening. The appendix is unremarkable. Diffusely fluid-filled small and large bowel compatible with enteritis. Lymph nodes: No retroperitoneal, mesenteric, or pelvic lymphadenopathy. Peritoneum / Retroperitoneum: No free fluid or air within the abdomen. Vessels: No infrarenal aortic aneurysm. Mild aortoiliac calcification. Bones and soft tissues: Degenerative changes of the spine. No acute osseous normality. Total left hip arthroplasty. Chronic bilateral L5 spondylolysis without significant spondylolisthesis. Acute anterior fractures at left ribs 9, 8, 7 IMPRESSION: 1. Acute left ribs 7, 8 and 9 fractures. 2. Cirrhotic morphology of the liver, and evidence of portal hypertension including numerous collateral varicosities, and splenomegaly. 3. Diffuse fluid filling of the small and large bowel, suggestive of enteritis. 4. No fracture or traumatic subluxation of the thoracic or lumbar spine. Electronically signed by Cachorro Pleitez 08-18-2024 2:[address] 08/18/24 13:25 EXAMINATION: CT of the chest, abdomen and pelvis, and the thoracic and lumbar spine performed after the administration of IV contrast TECHNIQUE: Helical CT images from the lung apices through the symphysis pubis were obtained with contrast. Coronal and sagittal reformatted images were generated at a workstation for further assessment. Dose reduction techniques were achieved by using automatic exposure control and/or adjustment of mA and/or kV according to patient size and/or use of iterative reconstruction technique. COMPARISON: None HISTORY: Trauma FINDINGS: Lines and tubes: None Mediastinum/Neck Base: No thyroid nodules. Central tracheobronchial tree is patent. Heart size is normal. No pericardial effusion. Normal thoracic vasculature. No thoracic lymphadenopathy. Moderate coronary calcification. Lungs: No consolidation. No pleural effusion or pneumothorax. Liver: Nodular contour of the liver compatible with cirrhosis. A small cyst is seen in the caudate lobe, as well as a few in the right lobe. No suspicious liver lesions. Portal veins appear patent. Numerous, large collateral varices throughout the right upper abdomen. Gallbladder: Cholecystectomy Spleen: Enlarged, 14.1 cm Pancreas: No suspicious pancreatic lesions. The pancreatic duct is not dilated. Adrenal glands: No adrenal nodules. Kidneys: No hydronephrosis or obstructing renal stones. Bladder / Pelvic organs: Unremarkable. Bowel: No bowel obstruction. No abnormal bowel wall thickening. The appendix is unremarkable. Diffusely fluid-filled small and large bowel compatible with enteritis. Lymph nodes: No retroperitoneal, mesenteric, or pelvic lymphadenopathy. Peritoneum / Retroperitoneum: No free fluid or air within the abdomen. Vessels: No infrarenal aortic aneurysm. Mild aortoiliac calcification. Bones and soft tissues: Degenerative changes of the spine. No acute osseous normality. Total left hip arthroplasty. Chronic bilateral L5 spondylolysis without significant spondylolisthesis. Acute anterior fractures at left ribs 9, 8, 7 IMPRESSION: 1. Acute left ribs 7, 8 and 9 fractures. 2. Cirrhotic morphology of the liver, and evidence of portal hypertension including numerous collateral varicosities, and splenomegaly. 3. Diffuse fluid filling of the small and large bowel, suggestive of enteritis. 4. No fracture or traumatic subluxation of the thoracic or lumbar spine. Electronically signed by Cachorro Pleitez 08-18-2024 2:[address] 08/18/24 13:25 EXAMINATION: CT of the chest, abdomen and pelvis, and the thoracic and lumbar spine performed after the administration of IV contrast TECHNIQUE: Helical CT images from the lung apices through the symphysis pubis were obtained with contrast. Coronal and sagittal reformatted images were generated at a workstation for further assessment. Dose reduction techniques were achieved by using automatic exposure control and/or adjustment of mA and/or kV according to patient size and/or use of iterative reconstruction technique. COMPARISON: None HISTORY: Trauma FINDINGS: Lines and tubes: None Mediastinum/Neck Base: No thyroid nodules. Central tracheobronchial tree is patent. Heart size is normal. No pericardial effusion. Normal thoracic vasculature. No thoracic lymphadenopathy. Moderate coronary calcification. Lungs: No consolidation. No pleural effusion or pneumothorax. Liver: Nodular contour of the liver compatible with cirrhosis. A small cyst is seen in the caudate lobe, as well as a few in the right lobe. No suspicious liver lesions. Portal veins appear patent. Numerous, large collateral varices throughout the right upper abdomen. Gallbladder: Cholecystectomy Spleen: Enlarged, 14.1 cm Pancreas: No suspicious pancreatic lesions. The pancreatic duct is not dilated. Adrenal glands: No adrenal nodules. Kidneys: No hydronephrosis or obstructing renal stones. Bladder / Pelvic organs: Unremarkable. Bowel: No bowel obstruction. No abnormal bowel wall thickening. The appendix is unremarkable. Diffusely fluid-filled small and large bowel compatible with enteritis. Lymph nodes: No retroperitoneal, mesenteric, or pelvic lymphadenopathy. Peritoneum / Retroperitoneum: No free fluid or air within the abdomen. Vessels: No infrarenal aortic aneurysm. Mild aortoiliac calcification. Bones and soft tissues: Degenerative changes of the spine. No acute osseous normality. Total left hip arthroplasty. Chronic bilateral L5 spondylolysis without significant spondylolisthesis. Acute anterior fractures at left ribs 9, 8, 7 IMPRESSION: 1. Acute left ribs 7, 8 and 9 fractures. 2. Cirrhotic morphology of the liver, and evidence of portal hypertension including numerous collateral varicosities, and splenomegaly. 3. Diffuse fluid filling of the small and large bowel, suggestive of enteritis. 4. No fracture or traumatic subluxation of the thoracic or lumbar spine. Electronically signed by Cachorro Pleitez 08-18-2024 2:40 PM Discharge Plan Visit Data Chief Complaint: Trauma Stated Complaint: FELL HURT LEG ED Provider: Eris Cooper ED Midlevel Provider: Francheska Santoyo Discharge Problem: Acute confusion, Encephalopathy, hepatic, Left rib fracture, Traumatic injury, Enteritis Patient Disposition: Admitted As Inpatient Condition: Fair Discharge Instructions Interventions: ED Discharge Assessment Last Done: 08/18/24 21:59 Forms Stand Alone Forms: [facility] [employer] Prescriptions Prescriptions: No Action furosemide 40 mg tablet 40 mg PO QAM atorvastatin 20 mg tablet 20 mg PO QAM magnesium oxide 400 mg (241.3 mg magnesium) tablet 400 mg PO BID gabapentin 100 mg capsule 100 mg PO TID duloxetine 30 mg capsule,delayed release(DR/EC) 30 mg PO QAM lactulose 10 gram/15 mL solution 30 ml PO QID Xifaxan 550 mg tablet 550 mg PO BID pantoprazole [Protonix] 40 mg Tablet,Delayed Release (Dr/Ec) 40 mg PO BID ferrous sulfate 325 mg (65 mg iron) Tablet 325 mg PO QAM clonidine HCl 0.1 mg tablet 0.1 mg PO BID meloxicam 15 mg tablet 15 mg PO DAILY cyanocobalamin (vitamin B-12) [Vitamin B-12] 1,000 mcg Tablet 1,000 mcg PO DAILY vitamin A 3,000 mcg (10,000 unit) Capsule 3,000 mcg PO DAILY neomycin-polymyxin B-dexameth 3.5mg/mL-10,000 unit/mL-0.1 % drops,suspension 1 drp OPR QID trazodone 50 mg tablet 50 - 100 mg PO HS Referrals Referrals: Toby Paz MD [Primary Care Provider] - Discharge Problem: Left rib fracture Qualifiers: Encounter type: initial encounter Rib fracture type: multiple ribs Fracture type: closed Qualified Code(s): S22.42XA - Multiple fractures of ribs, left side, initial encounter for closed fracture
[2024-08-18 13:41] LABS: Basophils # (auto) 0.06 K/uL (0.00-0.20); Basophils % (auto) 0.8 %; Eosinophils # (auto) 0.26 K/uL (0.00-0.50); Eosinophils % (auto) 3.5 %; Hematocrit (blood only) 43.3 % (42.0-52.0); Hemoglobin 15.3 g/dl (14.0-18.0); Immature Granulocytes # (auto) 0.02 K/uL (0.01-0.20); Immature Granulocytes % (auto) 0.3 %; Lymphocytes # (auto) 0.93 K/uL (1.20-3.40); Lymphocytes % (auto) 12.5 %; Mean Corpuscular Hemoglobin 34.1 pg (25.0-34.0); Mean Corpuscular Hgb Conc 35.3 g/dL (32.0-36.0); Mean Corpuscular Volume 96.4 fL (80.0-100.0); Mean Platelet Volume 12.2 fL (9.4-12.4); Monocytes # (auto) 0.81 K/uL (0.11-0.59); Monocytes % (auto) 10.9 %; Neutrophils # (auto) 5.34 K/uL (1.40-6.50); Platelet Count 40 K/uL (130-400); RDW Standard Deviation 53.7 fL (36.4-46.3); Red Blood Count 4.49 M/uL (4.70-6.10); White Blood Count 7.42 K/ul (4.8-10.8)
--- NOTE | 2024-08-18 13:43 | XRay Report ---
XR chest 1V portable HISTORY: 59 years-old Male Trauma COMPARISON: 07/30/2024 TECHNIQUE: AP view of the chest FINDINGS: Cardiomediastinal and hilar silhouettes are within normal limits. No pneumothorax, pleural effusion o r airspace consolidation. Bones of the chest appear grossly intact. IMPRESSION: No acute process. ACT 112: Negative or not required by law. The above report was generated using voice recognition software. It may contain grammatical, syntax o r spelling errors. Electronically signed by: Gerardo Brown M.D. 08/18/2024 1:42 PM
[2024-08-18 13:44] LABS: iSTAT Creatinine 1.2 mg/dl (0.6-1.3); iSTAT Ionized Calcium 1.18 mmol/l (1.12-1.32); iSTAT Potassium 3.7 mmol/L (3.3-5.0)
--- NOTE | 2024-08-18 13:47 | XRay Report ---
XR tibia fibula RT 2V, XR foot RT min 3V routine HISTORY: 59 years-old Male trauma acute pain of the right lower extremity status post fall COMPARISON: None TECHNIQUE: 2 views of the right tibia and fibula with 3 views of the right foot FINDINGS: TIBIA/FIBULA: Mid to lower leg anterolateral soft tissue swelling. No acute fracture, dislocation or opaque foreign body. FOOT: Hallux valgus. No acute fracture or dislocation. IMPRESSION: Soft tissue swelling without acute fracture or dislocation. ACT 112: Negative or not required by law. The above report was generated using voice recognition software. It may contain grammatical, syntax o r spelling errors. Electronically signed by: Gerardo Brown M.D. 08/18/2024 1:45 PM
[2024-08-18] MEDS: OPTIRAY 320 100ml IV ONE (13:56)
[2024-08-18 14:05] LABS: Albumin Level 3.4 gm/dl (3.4-5.0); Bilirubin,Total 2.3 mg/dl (0.2-1.0); Calcium 8.9 mg/dl (8.6-10.3); Creatinine Clr Calc Pharmacy 75.2 ml/min; Globulin 3.5 gm/dl (2.5-4.0); Potassium 3.8 mmol/L (3.5-5.1); Total Protein 6.9 gm/dl (6.0-8.3)
[2024-08-18] MEDS: MoRPHine SULFATE 4 MG/ML 1 ML CARP\\VIAL IV STA ×2 (14:12→16:45)
[2024-08-18] MEDS: ONDANSETRON INJ 2 MG/ML 2 ML VIAL IV STA (14:12)
--- NOTE | 2024-08-18 14:13 | Electrocardiogram Report ---
Test Reason : Blood Pressure : */* mmHG Vent. Rate : 90 BPM Atrial Rate : 90 BPM P-R Int : 150 ms QRS Dur : 80 ms QT Int : 390 ms P-R-T Axes : 58 36 56 degrees QTcB Int : 477 ms Normal sinus rhythm Normal ECG When compared with ECG of 30-Jul-2024 09:13, No significant change was found Confirmed by Zay Scott ([id number]) on 08/18/2024 2:13:42 PM Referred By: Confirmed By: Zay Scott
[2024-08-18] MEDS: fentaNYL citrate PF 100 MCG/2 ML VIAL IV STA (14:30)
--- NOTE | 2024-08-18 14:41 | CT Scan Report ---
EXAMINATION: CT of the chest, abdomen and pelvis, and the thoracic and lumbar spine performed after the administration of IV contrast TECHNIQUE: Helical CT images from the lung apices through the symphysis pubis were obtained with contrast. Coronal and sagittal reformatted images were generated at a workstation for further assessment. Dose reduction techniques were achieved by using automatic exposure control and/or adjustment of mA and/or kV according to patient size and/or use of iterative reconstruction technique. COMPARISON: None HISTORY: Trauma FINDINGS: Lines and tubes: None Mediastinum/Neck Base: No thyroid nodules. Central tracheobronchial tree is patent. Heart size is normal. No pericardial effusion. Normal thoracic vasculature. No thoracic lymphadenopathy. Moderate coronary calcification. Lungs: No consolidation. No pleural effusion or pneumothorax. Liver: Nodular contour of the liver compatible with cirrhosis. A small cyst is seen in the caudate lobe, as well as a few in the right lobe. No suspicious liver lesions. Portal veins appear patent. Numerous, large collateral varices throughout the right upper abdomen. Gallbladder: Cholecystectomy Spleen: Enlarged, 14.1 cm Pancreas: No suspicious pancreatic lesions. The pancreatic duct is not dilated. Adrenal glands: No adrenal nodules. Kidneys: No hydronephrosis or obstructing renal stones. Bladder / Pelvic organs: Unremarkable. Bowel: No bowel obstruction. No abnormal bowel wall thickening. The appendix is unremarkable. Diffusely fluid-filled small and large bowel compatible with enteritis. Lymph nodes: No retroperitoneal, mesenteric, or pelvic lymphadenopathy. Peritoneum / Retroperitoneum: No free fluid or air within the abdomen. Vessels: No infrarenal aortic aneurysm. Mild aortoiliac calcification. Bones and soft tissues: Degenerative changes of the spine. No acute osseous normality. Total left hip arthroplasty. Chronic bilateral L5 spondylolysis without significant spondylolisthesis. Acute anterior fractures at left ribs 9, 8, 7 IMPRESSION: 1. Acute left ribs 7, 8 and 9 fractures. 2. Cirrhotic morphology of the liver, and evidence of portal hypertension including numerous collateral varicosities, and splenomegaly. 3. Diffuse fluid filling of the small and large bowel, suggestive of enteritis. 4. No fracture or traumatic subluxation of the thoracic or lumbar spine. Electronically signed by Cachorro Pleitez 08-18-2024 2:40 PM
--- NOTE | 2024-08-18 14:43 | CT Scan Report ---
CT cervical spine without IV contrast History: Trauma Comparison: None Technique: Using multidetector thin collimation helical acquisition technique, axial, coronal and sagittal CT images through the cervical spine were obtained without intravenous contrast. Dose reduction techniques were achieved by using automatic exposure control and/or adjustment of mA and/or kV according to patient size and/or use of iterative reconstruction technique. Findings: The cervical vertebrae are normally aligned. Straightened cervical lordosis. No acute fracture or subluxation. No prevertebral edema. There is no disc height narrowing at any level. Moderate hypertrophic atlantodental degenerative change. Advanced degenerative change and mature bony bridging seen bilaterally at the C2-3 facet joints. No abnormality of the paraspinous soft tissues. Impression: No acute fracture or traumatic subluxation. Electronically signed by Cachorro Pleitez 08-18-2024 2:42 PM
[2024-08-18 14:48] LABS: INR 1.2 (0.9-1.1); Partial Thromboplastin Ratio 1.1; Partial Thromboplastin Time 30 Seconds (21-31); Prothrombin Time 13.3 Seconds (9.0-12.0)
[2024-08-18 15:23] LABS: Appearance Urine Clear (Clear); Bilirubin Urine Negative (Negative); Blood Urine Negative (Negative); Color Urine Yellow; Glucose Urine UA Negative (Negative); Ketones Urine Trace (Negative); Leukocyte Esterase Urine Negative (Negative); Nitrite Urine Negative (Negative); Protein Urine Negative (Negative); Specific Gravity Urine > 1.045 (1.000-1.030); Urobilinogen Urine Negative (Negative); pH Urine 5.5 (4.5-7.5)
--- NOTE | 2024-08-18 16:29 | CT Scan Report ---
CT head without contrast History: Trauma Comparison: None Technique: Using multidetector thin collimation helical acquisition technique, axial, coronal and sagittal CT images from the skull base to the vertex were obtained without intravenous contrast. Dose reduction techniques were achieved by using automatic exposure control and/or adjustment of mA and/or kV according to patient size and/or use of iterative reconstruction technique. Findings: No intracranial hemorrhage, mass-effect, or midline shift. The ventricles are proportionate to the cerebral sulci. The summers to white matter differentiation of the cerebral hemispheres is preserved. The basal cisterns are patent. The visualized paranasal sinuses are clear. Mastoid air cells are clear. Impression: No acute intracranial pathology. Electronically signed by Cachorro Pleitez 08-18-2024 4:29 PM
[2024-08-18] MEDS: LACTULOSE SYRUP 30 GM/45 ML UDP PO STA ×2 (16:44→20:48)
[2024-08-18] MEDS: LIDOCAINE 5% 1 PATCH TD STA (16:45)
--- NOTE | 2024-08-18 17:12 | History & Physical Report ---
Date of Service August 18, 2024 Assessment & Plan (1) Traumatic injury: (2) Enteritis: (3) Left rib fracture: Plan #Fall w/resultant L 7-9 fracture -pain control -monitor oxygenation #Decompensated EtOH cirrhosis c/b hepatic encephalopathy, varices, thrombocytopenia #Increased abdominal distention, paracentesis naive #Hyperbilirubinemia, hyperphosphatasemia, transaminitis #Enteritis >MELD-Na 14 points, Maddrey 8.3 pts -lactulose & rifaximin -rocephin for enteritis tx, no ascites no need for ppx -consider BB when stable for prophylaxis -cont lasix #Hld, NC, internal hemorrhoids, TIA, AAA, #Gerd, avascular necrosis L hip, DDD -home meds No IVF, bedside dysphagia, NPO for now given confusion SCDs History of Present Illness Primary Care Provider: Toby Paz MD 59M pmh decompensated EtOH cirrhosis c/b encephalopathy w/previous admissions for this, nonbleeding esophageal varices, thrombocytopenia, anem of chronic dx, ARGELIA, hypoproliferative anemia, hld, NC, internal hemorrhoids, TIA, AAA, gerd, avascular necrosis L hip, DDD who presents after a fall. Patient is AAOx3-4 on my evaluation, but does report that he has been feeling somewhat more confused recently. States that he was gardening today and was attempting to lift a planter which was too heavy for him when he fell about 4 feel. Current worst symptoms are R ankle pain, L chest wall pain, cervical spinal pain. Imaging showed L 7-9 rib fx as well as cirrhosis w/varices and enteritis. No other current symptoms including fever, chills. Allergies Allergy/AdvReac Type Severity Reaction Status Date / Time bee venom protein (honey bee) Allergy Severe Anaphylaxis--CARRIES Verified 08/18/24 16:59 AN EPIPEN Home Medications Medication Instructions Recorded Confirmed Type atorvastatin 20 mg tablet 20 mg PO QAM 04/20/24 08/18/24 History duloxetine 30 mg capsule,delayed 30 mg PO QAM 04/20/24 08/18/24 History release ferrous sulfate 325 mg (65 mg 325 mg PO QAM 04/20/24 08/18/24 History iron) tablet furosemide 40 mg tablet 40 mg PO QAM 04/20/24 08/18/24 History gabapentin 100 mg capsule 100 mg PO TID 04/20/24 08/18/24 History lactulose 10 gram/15 mL oral 30 ml PO QID 04/20/24 08/18/24 History solution magnesium oxide 400 mg (241.3 mg 400 mg PO BID 04/20/24 08/18/24 History magnesium) tablet pantoprazole 40 mg tablet,delayed 40 mg PO BID 04/20/24 08/18/24 History release (Protonix) rifaximin 550 mg tablet (Xifaxan) 550 mg PO BID 04/20/24 08/18/24 History clonidine HCl 0.1 mg tablet 0.1 mg PO BID 08/18/24 08/18/24 History cyanocobalamin (vitamin B-12) 1,000 mcg PO DAILY 08/18/24 08/18/24 History 1,000 mcg tablet (Vitamin B-12) meloxicam 15 mg tablet 15 mg PO DAILY 08/18/24 08/18/24 History oitswosp-qoizimbrp-pbszlodu 3.5 1 drp OPR QID 08/18/24 08/18/24 History mg/mL-10,000 unit/mL-0.1% eye drops trazodone 50 mg tablet 50 - 100 mg PO HS 08/18/24 08/18/24 History vitamin A 3,000 mcg (10,000 unit) 3,000 mcg PO DAILY 08/18/24 08/18/24 History capsule Past Med/Surg History Problem List (Updated 08/18/24 @ 16:48 by YOGESH Mora) Enteritis (Acute) Traumatic injury (Acute) Left rib fracture (Acute) Basilar artery aneurysm Other toxic encephalopathy Left axillary pain (Acute) Acute hepatic encephalopathy (Acute) Chest discomfort Hepatic encephalopathy (Acute) Atypical chest pain (Acute) Encephalopathy, hepatic (Acute) Depression GERD (gastroesophageal reflux disease) Acute confusion (Acute) Hyperammonemia (Acute) Thrombocytopenia (Acute) Acute hepatic encephalopathy (Acute) History of total left hip replacement (Acute) Bilateral leg pain (Acute) Altered mental status (Acute) Confusion Avascular necrosis of femur Hip pain Ambulatory dysfunction (Acute) Hyperammonemia (Acute) Acute pain of left hip (Acute) Alcoholic cirrhosis Dilated aortic root Acute alteration in mental status (Acute) Thrombocytopenia (Acute) Bilateral arm weakness (Acute) Acute hepatic encephalopathy (Acute) H/O angioedema (Chronic) ongoing, follows with allergy Elevated LFTs (Acute) HTN (hypertension) (Chronic) Acid reflux Abnormal PFT Thrombocytopenia UTI (urinary tract infection) Cirrhosis of liver Cough Encounter for pre-operative examination RUQ pain Insomnia (Chronic) Intractable right upper quadrant abdominal pain (Acute) GERD (gastroesophageal reflux disease) (Chronic) Migraine (Chronic) Medical History History of ascites Acute alteration in mental status Nausea HLD (hyperlipidemia) Hypertension Hyperlipidemia Surgical History History of esophagogastroduodenoscopy (EGD) History of colonoscopy History of bowel resection 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 History of appendectomy History of tooth extraction Family History Father Hearing loss Hypertension Stroke Heart disease Other No pertinent family history in first degree relatives Denies family history of No family history of adverse response to anesthesia No family history of bleeding disorder Allergies Asthma Social History Smoking Status: Never smoker Tobacco Type: Cigarettes Cigarettes Per Day: 1; Second Hand Exposure: No; Do You Dip or Chew Tobacco: No; Hx Alcohol Use: No Hx Substance Use: No Preferred Language: [place] Communication Ability: Effective Credit Collections Specialist Required: No Beliefs That Will Affect Care: None marital status: Current Living Situation: Spouse Current Living Situation Comment: LIVES WITH GIRLFRIEND 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 Safe at Home: Yes Assistive Devices: None Review of Systems Constitutional: no fever and no chills Gastrointestinal: + bloating; no abdominal pain Musculoskeletal: as above Physical Exam Constitutional: WD/WN, vitals as above Respiratory: normal respiratory effort, lungs clear to auscultation Gastrointestinal (Abdomen): abdomen distended, no significant pain Results & Data Results & Data Vital Signs (Past 12 Hours) Vital Signs Temp Pulse Pulse Resp BP BP Pulse Ox 08/18/24 16:00 86 18 123/90 97 08/18/24 16:00 86 18 160/101 H 96 08/18/24 15:52 83 08/18/24 15:21 90 18 155/95 H 96 08/18/24 15:00 89 19 155/95 H 96 08/18/24 14:37 93 H 20 148/94 H 96 08/18/24 13:52 98 H 15 96 08/18/24 13:52 95 08/18/24 13:38 36.6 C 94 H 14 142/90 H 95 08/18/24 13:38 36.6 C 96 H 23 142/90 H 95 08/18/24 12:53 36.5 C 100 H 16 109/69 95 O2 Del Method O2 Flow Rate 08/18/24 16:00 Room Air 08/18/24 16:00 Room Air 08/18/24 15:52 08/18/24 15:21 08/18/24 15:00 Room Air 08/18/24 14:37 Room Air 08/18/24 13:52 Room Air 08/18/24 13:52 Room Air 08/18/24 13:38 Room Air 08/18/24 13:38 Room Air 0 08/18/24 12:53 Room Air Laboratory Results Abnormal lab results 08/18/24 08/18/24 08/18/24 Range/Units 13:26 13:32 14:20 RBC 4.49 L (4.70-6.10) M/uL MCH 34.1 H (25.0-34.0) pg RDW Std Deviation 53.7 H (36.4-46.3) fL RDW Coeff of Fabiola 15.0 H (11.5-14.5) % Plt Count 40 L (130-400) K/uL Lymph # (Auto) 0.93 L (1.20-3.40) K/uL Mayes # (Auto) 0.81 H (0.11-0.59) K/uL PT 13.3 H (9.0-12.0) Seconds INR 1.2 H (0.9-1.1) POC Sodium 146 H (135-144) mmol/L Chloride 114 H (98-107) mmol/L POC Total CO2 19 L (24-31) mmol/L Glucose 150 H (70-99(Fasting)) mg/dl POC Glucose (other) 143 H (70-99) mg/dl Total Bilirubin 2.3 H (0.2-1.0) mg/dl AST 80 H (13-39) U/L ALT 54 H (7-52) U/L Alkaline Phosphatase 237 H (34-104) U/L Ammonia (18-72) umol/L Ur Specific [place] (1.000-1.030) Urine Ketones (Negative) 08/18/24 08/18/24 Range/Units 15:08 15:13 RBC (4.70-6.10) M/uL MCH (25.0-34.0) pg RDW Std Deviation (36.4-46.3) fL RDW Coeff of Fabiola (11.5-14.5) % Plt Count (130-400) K/uL Lymph # (Auto) (1.20-3.40) K/uL Mayes # (Auto) (0.11-0.59) K/uL PT (9.0-12.0) Seconds INR (0.9-1.1) POC Sodium (135-144) mmol/L Chloride (98-107) mmol/L POC Total CO2 (24-31) mmol/L Glucose (70-99(Fasting)) mg/dl POC Glucose (other) (70-99) mg/dl Total Bilirubin (0.2-1.0) mg/dl AST (13-39) U/L ALT (7-52) U/L Alkaline Phosphatase (34-104) U/L Ammonia 95.0 H (18-72) umol/L Ur Specific [place] > 1.045 H (1.000-1.030) Urine Ketones Trace H (Negative) Diagnostic Findings Cervical Spine CT 08/18/24 13:13 CT cervical spine without IV contrast History: Trauma Comparison: None Technique: Using multidetector thin collimation helical acquisition technique, axial, coronal and sagittal CT images through the cervical spine were obtained without intravenous contrast. Dose reduction techniques were achieved by using automatic exposure control and/or adjustment of mA and/or kV according to patient size and/or use of iterative reconstruction technique. Findings: The cervical vertebrae are normally aligned. Straightened cervical lordosis. No acute fracture or subluxation. No prevertebral edema. There is no disc height narrowing at any level. Moderate hypertrophic atlantodental degenerative change. Advanced degenerative change and mature bony bridging seen bilaterally at the C2-3 facet joints. No abnormality of the paraspinous soft tissues. Impression: No acute fracture or traumatic subluxation. Electronically signed by Cachorro Pleitez 08-18-2024 2:42 PM Chest X-Ray 08/18/24 13:13 XR chest 1V portable HISTORY: 59 years-old Male Trauma COMPARISON: 07/30/2024 TECHNIQUE: AP view of the chest FINDINGS: Cardiomediastinal and hilar silhouettes are within normal limits. No pneumothorax, pleural effusion or airspace consolidation. Bones of the chest appear grossly intact. IMPRESSION: No acute process. ACT 112: Negative or not required by law. The above report was generated using voice recognition software. It may contain grammatical, syntax or spelling errors. Electronically signed by: Gerardo Brown M.D. 08/18/2024 1:42 PM Foot X-Ray 08/18/24 13:13 XR tibia fibula RT 2V, XR foot RT min 3V routine HISTORY: 59 years-old Male trauma acute pain of the right lower extremity status post fall COMPARISON: None TECHNIQUE: 2 views of the right tibia and fibula with 3 views of the right foot FINDINGS: TIBIA/FIBULA: Mid to lower leg anterolateral soft tissue swelling. No acute fr acture, dislocation or opaque foreign body. FOOT: Hallux valgus. No acute fracture or dislocation. IMPRESSION: Soft tissue swelling without acute fracture or dislocation. ACT 112: Negative or not required by law. The above report was generated using voice recognition software. It may contain grammatical, syntax or spelling errors. Electronically signed by: Gerardo Brown M.D. 08/18/2024 1:[address] 08/18/24 13:13 CT head without contrast History: Trauma Comparison: None Technique: Using multidetector thin collimation helical acquisition technique, axial, coronal and sagittal CT images from the skull base to the vertex were obtained without intravenous contrast. Dose reduction techniques were achieved by using automatic exposure control and/or adjustment of mA and/or kV according to patient size and/or use of iterative reconstruction technique. Findings: No intracranial hemorrhage, mass-effect, or midline shift. The ventricles are proportionate to the cerebral sulci. The summers to white matter differentiation of the cerebral hemispheres is preserved. The basal cisterns are patent. The visualized paranasal sinuses are clear. Mastoid air cells are clear. Impression: No acute intracranial pathology. Electronically signed by Cachorro Pleitez 08-18-2024 4:29 PM Tibia/Fibula X-Ray 08/18/24 13:13 XR tibia fibula RT 2V, XR foot RT min 3V routine HISTORY: 59 years-old Male trauma acute pain of the right lower extremity status post fall COMPARISON: None TECHNIQUE: 2 views of the right tibia and fibula with 3 views of the right foot FINDINGS: TIBIA/FIBULA: Mid to lower leg anterolateral soft tissue swelling. No acute fracture, dislocation or opaque foreign body. FOOT: Hallux valgus. No acute fracture or dislocation. IMPRESSION: Soft tissue swelling without acute fracture or dislocation. ACT 112: Negative or not required by law. The above report was generated using voice recognition software. It may contain grammatical, syntax or spelling errors. Electronically signed by: Gerardo Brown M.D. 08/18/2024 1:45 PM Abdomen/Pelvis CT 08/18/24 13:25 EXAMINATION: CT of the chest, abdomen and pelvis, and the thoracic and lumbar spine performed after the administration of IV contrast TECHNIQUE: Helical CT images from the lung apices through the symphysis pubis were obtained with contrast. Coronal and sagittal reformatted images were generated at a workstation for further assessment. Dose reduction techniques were achieved by using automatic exposure control and/or adjustment of mA and/or kV according to patient size and/or use of iterative reconstruction technique. COMPARISON: None HISTORY: Trauma FINDINGS: Lines and tubes: None Mediastinum/Neck Base: No thyroid nodules. Central tracheobronchial tree is patent. Heart size is normal. No pericardial effusion. Normal thoracic vasculature. No thoracic lymphadenopathy. Moderate coronary calcification. Lungs: No consolidation. No pleural effusion or pneumothorax. Liver: Nodular contour of the liver compatible with cirrhosis. A small cyst is seen in the caudate lobe, as well as a few in the right lobe. No suspicious liver lesions. Portal veins appear patent. Numerous, large collateral varices throughout the right upper abdomen. Gallbladder: Cholecystectomy Spleen: Enlarged, 14.1 cm Pancreas: No suspicious pancreatic lesions. The pancreatic duct is not dilated. Adrenal glands: No adrenal nodules. Kidneys: No hydronephrosis or obstructing renal stones. Bladder / Pelvic organs: Unremarkable. Bowel: No bowel obstruction. No abnormal bowel wall thickening. The appendix is unremarkable. Diffusely fluid-filled small and large bowel compatible with enteritis. Lymph nodes: No retroperitoneal, mesenteric, or pelvic lymphadenopathy. Peritoneum / Retroperitoneum: No free fluid or air within the abdomen. Vessels: No infrarenal aortic aneurysm. Mild aortoiliac calcification. Bones and soft tissues: Degenerative changes of the spine. No acute osseous normality. Total left hip arthroplasty. Chronic bilateral L5 spondylolysis without significant spondylolisthesis. Acute anterior fractures at left ribs 9, 8, 7 IMPRESSION: 1. Acute left ribs 7, 8 and 9 fractures. 2. Cirrhotic morphology of the liver, and evidence of portal hypertension including numerous collateral varicosities, and splenomegaly. 3. Diffuse fluid filling of the small and large bowel, suggestive of enteritis. 4. No fracture or traumatic subluxation of the thoracic or lumbar spine. Electronically signed by Cachorro Pleitez 08-18-2024 2:[address] 08/18/24 13:25 EXAMINATION: CT of the chest, abdomen and pelvis, and the thoracic and lumbar spine performed after the administration of IV contrast TECHNIQUE: Helical CT images from the lung apices through the symphysis pubis were obtained with contrast. Coronal and sagittal reformatted images were generated at a workstation for further assessment. Dose reduction techniques were achieved by using automatic exposure control and/or adjustment of mA and/or kV according to patient size and/or use of iterative reconstruction technique. COMPARISON: None HISTORY: Trauma FINDINGS: Lines and tubes: None Mediastinum/Neck Base: No thyroid nodules. Central tracheobronchial tree is patent. Heart size is normal. No pericardial effusion. Normal thoracic vasculature. No thoracic lymphadenopathy. Moderate coronary calcification. Lungs: No consolidation. No pleural effusion or pneumothorax. Liver: Nodular contour of the liver compatible with cirrhosis. A small cyst is seen in the caudate lobe, as well as a few in the right lobe. No suspicious liver lesions. Portal veins appear patent. Numerous, large collateral varices throughout the right upper abdomen. Gallbladder: Cholecystectomy Spleen: Enlarged, 14.1 cm Pancreas: No suspicious pancreatic lesions. The pancreatic duct is not dilated. Adrenal glands: No adrenal nodules. Kidneys: No hydronephrosis or obstructing renal stones. Bladder / Pelvic organs: Unremarkable. Bowel: No bowel obstruction. No abnormal bowel wall thickening. The appendix is unremarkable. Diffusely fluid-filled small and large bowel compatible with enteritis. Lymph nodes: No retroperitoneal, mesenteric, or pelvic lymphadenopathy. Peritoneum / Retroperitoneum: No free fluid or air within the abdomen. Vessels: No infrarenal aortic aneurysm. Mild aortoiliac calcification. Bones and soft tissues: Degenerative changes of the spine. No acute osseous normality. Total left hip arthroplasty. Chronic bilateral L5 spondylolysis without significant spondylolisthesis. Acute anterior fractures at left ribs 9, 8, 7 IMPRESSION: 1. Acute left ribs 7, 8 and 9 fractures. 2. Cirrhotic morphology of the liver, and evidence of portal hypertension including numerous collateral varicosities, and splenomegaly. 3. Diffuse fluid filling of the small and large bowel, suggestive of enteritis. 4. No fracture or traumatic subluxation of the thoracic or lumbar spine. Electronically signed by Cachorro Pleitez 08-18-2024 2:[address] 08/18/24 13:25 EXAMINATION: CT of the chest, abdomen and pelvis, and the thoracic and lumbar spine performed after the administration of IV contrast TECHNIQUE: Helical CT images from the lung apices through the symphysis pubis were obtained with contrast. Coronal and sagittal reformatted images were generated at a workstation for further assessment. Dose reduction techniques were achieved by using automatic exposure control and/or adjustment of mA and/or kV according to patient size and/or use of iterative reconstruction technique. COMPARISON: None HISTORY: Trauma FINDINGS: Lines and tubes: None Mediastinum/Neck Base: No thyroid nodules. Central tracheobronchial tree is patent. Heart size is normal. No pericardial effusion. Normal thoracic vasculature. No thoracic lymphadenopathy. Moderate coronary calcification. Lungs: No consolidation. No pleural effusion or pneumothorax. Liver: Nodular contour of the liver compatible with cirrhosis. A small cyst is seen in the caudate lobe, as well as a few in the right lobe. No suspicious liver lesions. Portal veins appear patent. Numerous, large collateral varices throughout the right upper abdomen. Gallbladder: Cholecystectomy Spleen: Enlarged, 14.1 cm Pancreas: No suspicious pancreatic lesions. The pancreatic duct is not dilated. Adrenal glands: No adrenal nodules. Kidneys: No hydronephrosis or obstructing renal stones. Bladder / Pelvic organs: Unremarkable. Bowel: No bowel obstruction. No abnormal bowel wall thickening. The appendix is unremarkable. Diffusely fluid-filled small and large bowel compatible with enteritis. Lymph nodes: No retroperitoneal, mesenteric, or pelvic lymphadenopathy. Peritoneum / Retroperitoneum: No free fluid or air within the abdomen. Vessels: No infrarenal aortic aneurysm. Mild aortoiliac calcification. Bones and soft tissues: Degenerative changes of the spine. No acute osseous normality. Total left hip arthroplasty. Chronic bilateral L5 spondylolysis without significant spondylolisthesis. Acute anterior fractures at left ribs 9, 8, 7 IMPRESSION: 1. Acute left ribs 7, 8 and 9 fractures. 2. Cirrhotic morphology of the liver, and evidence of portal hypertension including numerous collateral varicosities, and splenomegaly. 3. Diffuse fluid filling of the small and large bowel, suggestive of enteritis. 4. No fracture or traumatic subluxation of the thoracic or lumbar spine. Electronically signed by Cachorro Pleitez 08-18-2024 2:[address] 08/18/24 13:25 EXAMINATION: CT of the chest, abdomen and pelvis, and the thoracic and lumbar spine performed after the administration of IV contrast TECHNIQUE: Helical CT images from the lung apices through the symphysis pubis were obtained with contrast. Coronal and sagittal reformatted images were generated at a workstation for further assessment. Dose reduction techniques were achieved by using automatic exposure control and/or adjustment of mA and/or kV according to patient size and/or use of iterative reconstruction technique. COMPARISON: None HISTORY: Trauma FINDINGS: Lines and tubes: None Mediastinum/Neck Base: No thyroid nodules. Central tracheobronchial tree is patent. Heart size is normal. No pericardial effusion. Normal thoracic vasculature. No thoracic lymphadenopathy. Moderate coronary calcification. Lungs: No consolidation. No pleural effusion or pneumothorax. Liver: Nodular contour of the liver compatible with cirrhosis. A small cyst is seen in the caudate lobe, as well as a few in the right lobe. No suspicious liver lesions. Portal veins appear patent. Numerous, large collateral varices throughout the right upper abdomen. Gallbladder: Cholecystectomy Spleen: Enlarged, 14.1 cm Pancreas: No suspicious pancreatic lesions. The pancreatic duct is not dilated. Adrenal glands: No adrenal nodules. Kidneys: No hydronephrosis or obstructing renal stones. Bladder / Pelvic organs: Unremarkable. Bowel: No bowel obstruction. No abnormal bowel wall thickening. The appendix is unremarkable. Diffusely fluid-filled small and large bowel compatible with enteritis. Lymph nodes: No retroperitoneal, mesenteric, or pelvic lymphadenopathy. Peritoneum / Retroperitoneum: No free fluid or air within the abdomen. Vessels: No infrarenal aortic aneurysm. Mild aortoiliac calcification. Bones and soft tissues: Degenerative changes of the spine. No acute osseous normality. Total left hip arthroplasty. Chronic bilateral L5 spondylolysis without significant spondylolisthesis. Acute anterior fractures at left ribs 9, 8, 7 IMPRESSION: 1. Acute left ribs 7, 8 and 9 fractures. 2. Cirrhotic morphology of the liver, and evidence of portal hypertension including numerous collateral varicosities, and splenomegaly. 3. Diffuse fluid filling of the small and large bowel, suggestive of enteritis. 4. No fracture or traumatic subluxation of the thoracic or lumbar spine. Electronically signed by Cachorro Pleitez 08-18-2024 2:40 PM (3) Left rib fracture Encounter type: initial encounter Fracture type: closed Rib fracture type: multiple ribs Qualified Code(s): S22.42XA - Multiple fractures of ribs, left side, initial encounter for closed fracture
[2024-08-18] MEDS ORDERED: ACETAMINOPHEN 325 MG TAB PO PRN (17:28)
[2024-08-18] MEDS ORDERED: ONDANSETRON INJ 2 MG/ML 2 ML VIAL IV PRN (17:28)
[2024-08-18] MEDS ORDERED: MELATONIN 3 MG TAB PO PRN (17:28)
[2024-08-18] MEDS: MoRPHine SULFATE 2 MG/ML CARP IV PRN (19:40)
[2024-08-18] MEDS: LACTULOSE SYRUP 30 GM/45 ML UDP PO ONE (20:33)
[2024-08-18] MEDS: cefTRIAXone SODIUM 2,000 MG/50 ML BAG IV STA (20:46)
[2024-08-18] MEDS ORDERED: traZODone HCL 50 MG TAB PO PRN (22:35)
[2024-08-18] MEDS: cloNIDine HCL 0.1 MG TAB PO SCH (22:55)
[2024-08-18] MEDS: MAGNESIUM OXIDE 400 MG TAB PO SCH (22:55)
[2024-08-18] MEDS: HYDROCODONE/ACETAMOPHEN 5/325MG TAB PO PRN (22:55)
[2024-08-18] MEDS: PANTOprazole 40 MG TAB PO SCH (23:24)
[2024-08-18] MEDS: GABAPENTIN 100 MG CAP PO SCH (23:24)
[2024-08-18] MEDS: rifAXIMin 550 MG TABLET PO SCH (23:25)
[2024-08-19 06:52] LABS: Basophils # (auto) 0.08 K/uL (0.00-0.20); Eosinophils # (auto) 0.69 K/uL (0.00-0.50); Eosinophils % (auto) 8.6 %; Hematocrit (blood only) 41.3 % (42.0-52.0); Hemoglobin 14.2 g/dl (14.0-18.0); Immature Granulocytes # (auto) 0.03 K/uL (0.01-0.20); Immature Granulocytes % (auto) 0.4 %; Lymphocytes # (auto) 1.61 K/uL (1.20-3.40); Mean Corpuscular Hemoglobin 33.7 pg (25.0-34.0); Mean Corpuscular Hgb Conc 34.4 g/dL (32.0-36.0); Mean Corpuscular Volume 98.1 fL (80.0-100.0); Monocytes # (auto) 1.16 K/uL (0.11-0.59); Monocytes % (auto) 14.4 %; Neutrophils # (auto) 4.47 K/uL (1.40-6.50); Neutrophils % (auto) 55.6 %; Platelet Count 47 K/uL (130-400); RDW Coefficient of Variation 15.3 % (11.5-14.5); RDW Standard Deviation 55.4 fL (36.4-46.3); Red Blood Count 4.21 M/uL (4.70-6.10); White Blood Count 8.04 K/ul (4.8-10.8)
[2024-08-19 07:16] LABS: Albumin Globulin Ratio 1.3 (0.9-2); Albumin Level 3.4 gm/dl (3.4-5.0); BUN Creatinine Ratio 12.6 (10-20); Bilirubin,Total 2.3 mg/dl (0.2-1.0); Calcium 8.7 mg/dl (8.6-10.3); Creatinine Clr Calc Pharmacy 57.1 ml/min; Globulin 2.6 gm/dl (2.5-4.0); Potassium 3.9 mmol/L (3.5-5.1)
[2024-08-19 08:03] VITALS: BP 110/69; RESP 18; TEMP 98.4; O2SAT 91
[2024-08-19] MEDS: ATORVASTATIN 20 MG TAB PO SCH (08:54)
[2024-08-19] MEDS: DULoxetine HCL 30 MG CAP PO SCH (08:54)
[2024-08-19] MEDS: SPIRONOLACTONE 25 MG TAB PO SCH (08:54)
[2024-08-19] MEDS: FUROSEMIDE 40 MG TAB PO SCH (08:54)
[2024-08-19] MEDS: LACTULOSE SYRUP 30 GM/45 ML UDP PO SCH (08:54)
[2024-08-19] MEDS: MELOXICAM 7.5 MG TAB PO SCH (08:54)
[2024-08-19] MEDS: CYANOCOBALAMIN (B-12) 500 MCG TABLET PO SCH (08:55)
[2024-08-19] MEDS: FERROUS SULFATE 325 MG TAB PO SCH (08:55)
[2024-08-19] MEDS ORDERED: VITAMIN A PO SCH (09:00)
[2024-08-19 10:45] VITALS: PULSE 93
--- NOTE | 2024-08-19 10:45 | Discharge Summary ---
Discharge Summary Date of Service August 19, 2024 Principal Dx & Hospital Course #1 = Principal Diagnosis (1) Traumatic injury: (2) Left rib fracture: (3) Alcoholic cirrhosis: (4) Thrombocytopenia: Plan Patient is a 59-year-old gentleman who presented to the emergency room after having a fall in his garden and lifting up a heavy potting plant. Imaging revealed a rib fracture. Patient was cared for in the hospital. He was given some pain control. Overall it seems as though he was at his baseline mental status. He has known hepatic encephalopathy in the setting of cirrhosis. Suspect findings on CAT scan showing enteritis is chronic findings associated with his lactulose use. On the morning of discharge she was requesting to go home. He reports that his pain is controlled. He was able to get up out of out of bed and into a chair without any difficulties. He is tolerating his diet. He will be discharged home to follow-up with his PCP use of Lidoderm patch for pain control and as needed Tylenol. Notes For Next Care Provider Continue outpatient care for his chronic medical issues Consider repeat BMP in 7 to 10 days Medication Changes From Visit Lidoderm patch for rib pain Admission HPI Per Admitting Provider 59M pmh decompensated EtOH cirrhosis c/b encephalopathy w/previous admissions for this, nonbleeding esophageal varices, thrombocytopenia, anem of chronic dx, ARGELIA, hypoproliferative anemia, hld, HI, internal hemorrhoids, TIA, AAA, gerd, avascular necrosis L hip, DDD who presents after a fall. Patient is AAOx3-4 on my evaluation, but does report that he has been feeling somewhat more confused recently. States that he was gardening today and was attempting to lift a planter which was too heavy for him when he fell about 4 feel. Current worst symptoms are R ankle pain, L chest wall pain, cervical spinal pain. Imaging showed L 7-9 rib fx as well as cirrhosis w/varices and enteritis. No other current symptoms including fever, chills. Admission Exam Per Admitting Provider See H&P Discharge Exam Constitutional: Alert, nontoxic HEENT: Mucous membranes moist. Lungs: Decreased breath sounds but no wheezes or rails CV: S1-S2, regular Abdomen: Soft, nontender, nondistended Extremities: No significant edema Neuro: No focal deficits at baseline mentation Psych: Cooperative, normal mood Updated Medication List Medication Instructions Recorded Confirmed Type atorvastatin 20 mg tablet 20 mg PO QAM 04/20/24 08/18/24 History duloxetine 30 mg capsule,delayed 30 mg PO QAM 04/20/24 08/18/24 History release ferrous sulfate 325 mg (65 mg 325 mg PO QAM 04/20/24 08/18/24 History iron) tablet furosemide 40 mg tablet 40 mg PO QAM 04/20/24 08/18/24 History gabapentin 100 mg capsule 100 mg PO TID 04/20/24 08/18/24 History lactulose 10 gram/15 mL oral 30 ml PO QID 04/20/24 08/18/24 History solution magnesium oxide 400 mg (241.3 mg 400 mg PO BID 04/20/24 08/18/24 History magnesium) tablet pantoprazole 40 mg tablet,delayed 40 mg PO BID 04/20/24 08/18/24 History release (Protonix) rifaximin 550 mg tablet (Xifaxan) 550 mg PO BID 04/20/24 08/18/24 History clonidine HCl 0.1 mg tablet 0.1 mg PO BID 08/18/24 08/18/24 History cyanocobalamin (vitamin B-12) 1,000 mcg PO DAILY 08/18/24 08/18/24 History 1,000 mcg tablet (Vitamin B-12) meloxicam 15 mg tablet 15 mg PO DAILY 08/18/24 08/18/24 History rvceshye-negiuyvvd-taywjtyo 3.5 1 drp OPR QID 08/18/24 08/18/24 History mg/mL-10,000 unit/mL-0.1% eye drops trazodone 50 mg tablet 50 - 100 mg PO HS 08/18/24 08/18/24 History vitamin A 3,000 mcg (10,000 unit) 3,000 mcg PO DAILY 08/18/24 08/18/24 History capsule acetaminophen 500 mg tablet 1,000 mg (2 x 500 mg) PO Q8H PRN 08/19/24 Rx (Tylenol Extra Strength) fever or pain #100 tabs lidocaine 5 % topical patch 1 patch topical DAILY #15 ea 08/19/24 Rx (Lidoderm) Hospital Stay Data Consultations 08/18/24 20:26 ED Decision to Admit Stat Diagnostic Imagining Performed 08/18/24 13:13 CT cervical spine wo con Stat CT head/brain wo con Stat 08/18/24 13:25 CT abd pelvis IV con only Stat CT chest diagnostic w con Stat CT lumbar spine w con Stat CT thoracic spine w con Stat Reviewed imaging, laboratory and diagnostic studies. Pertinent findings as below. WBCs 8.0 Hemoglobin 14.2 Sodium 146 Chloride 115 Creatinine 1.59 Pending Results Patient Have Any Pending Studies at Discharge: No Discharge Instructions Given to Patient (Per Discharging Provider) Anticipate your rib pain slowly improving over the next couple weeks No heavy lifting pushing or pulling Total Time Total Time Spent Total Time Spent (In Minutes): 33
[2024-08-19] MEDS: SODIUM CHLORIDE 0.9% 500 ML IV ONE (10:58)
[2024-08-19] MEDS ORDERED: cefTRIAXone SODIUM 2,000 MG/50 ML BAG IV SCH (20:00)
== END 2024-08-19 11:58 | disposition home or self-care (01) | DRG 184 ==
LOC: ED 12:52 → 2S 17:28 → SUATTDRO 17:28 → 2S 21:59

== ENCOUNTER 2024-11-03 12:36 | Inpatient (IN) ==
--- NOTE | 2024-11-03 13:01 | Emergency Department Note ---
Impression & Plan Acute hepatic encephalopathy, Hyperammonemia, Acute confusion, Chest pain, Thrombocytopenia ED Provider Note NAME: MARLEEN MELTON AGE: 59 SEX: M : 1965 ARRIVES VIA: Walk-In INFORMANT: Patient, the patient's significant other ED PROVIDER(S): Zay Nelson DO CHIEF COMPLAINT: Chest pain HPI: The patient is a 59-year-old male who presented to the emergency department for an evaluation of chest pain. The patient describes left-sided chest pain which began over the course of the last few days. The patient also has been complaining of confusion and difficulty ambulating. He has had frequent falls recently. He did have a fall from a ladder over a couple weeks ago but was seen in our facility at that time. The patient denies having any lower extremity swelling. He does complain of generalized weakness. ROS: See above HPI for pertinent positives & negatives. A total of 10 systems reviewed and were otherwise negative. PAST MEDICAL HISTORY: See Below PAST SURGICAL HISTORY: See Below FAMILY HISTORY: See Below SOCIAL HISTORY: See Below HOME MEDICATIONS: See Below ALLERGIES: See Below VITALS: See Below PHYSICAL EXAMINATION: GENERAL: The patient is awake and answering questions. He is slow to answer questions but answers appropriately. EYES: The conjunctivae are clear. The pupils are round and reactive. EARS, NOSE, MOUTH AND THROAT: The nose is without any evidence of any deformity. NECK: The neck is nontender and supple. RESPIRATORY: Normal respiratory effort is noted there is no evidence of wheezing rhonchi or rales CARDIOVASCULAR: Regular rate and rhythm noted there no murmurs rubs or gallops normal S1 normal S2. GASTROINTESTINAL: The abdomen is soft. Abdomen is nontender. MUSCULOSKELETAL/EXTREMITIES: There is no evidence of gross deformity full range of motion is noted in the hips and shoulders. SKIN: Skin is warm and dry. Trace pedal edema was noted bilaterally. NEUROLOGIC: Patient is awake and oriented to person place and situation. He recognizes his significant other. Speech was slow but clear. Strength is diminished but symmetric. MEDICAL DECISION MAKING: The patient is a 59-year-old male who presented to the emergency department for an evaluation of altered mental status. The patient has a history of hepatic encephalopathy. The patient has had falls recently. The patient did admit to striking his head recently. Given his past medical history further laboratory and radiographic studies were obtained. He also complained of chest pain. The patient was not tachycardic or hypoxic. EKG showed nonspecific changes. Cardiac biomarker was negative. I discussed the patient's laboratory and radiographic studies with him and his significant other. Given his findings I discussed his condition with the on-call [facility] hospitalist. They have agreed to evaluate the patient in the emergency department for further management and disposition. Triage Nursing notes reviewed. Prior medical records reviewed Vital Signs: reviewed and remarkable for no significant abnormalities Differential diagnosis: Cardiac ischemia, aortic dissection, pulmonary embolism, pneumothorax, pneumonia, pericarditis, myocarditis, esophageal rupture, GERD, cholecystitis, pancreatitis, musculoskeletal, as well as other pathologies. ER treatment provided: See below Diagnostics interpreted by me: ECG: EKG was obtained in the emergency department. My interpretation is normal sinus rhythm at 76 bpm. There is no ectopy. There is no acute ST segment abnormalities noted. Nonspecific abnormalities were noted in the T waves in the inferior leads. This was compared to a tracing from August 18, 2024. The inferior changes are new otherwise no changes were noted. Cardiac Monitoring: An order was placed for continuous cardiac monitoring. The monitor shows a rate of 71 bpm with sinus rhythm. Laboratory studies: As stated above and show below. Imaging studies: See below. Radiographic imaging was reviewed by myself Consultation(s): I discussed this case with Jodi who is on for the [facility] group. Past Med/Surg History Problem List (Updated 11/03/24 @ 14:45 by Zay Nelson DO) Thrombocytopenia (Acute) Chest pain (Acute) Acute hepatic encephalopathy (Acute) Traumatic open wound of right lower leg with delayed healing (Acute) Enteritis (Acute) Traumatic injury (Acute) Left rib fracture (Acute) Basilar artery aneurysm Other toxic encephalopathy Left axillary pain (Acute) Acute hepatic encephalopathy (Acute) Chest discomfort Hepatic encephalopathy (Acute) Atypical chest pain (Acute) Encephalopathy, hepatic (Acute) Depression GERD (gastroesophageal reflux disease) Acute confusion (Acute) Hyperammonemia (Acute) Thrombocytopenia (Acute) Acute hepatic encephalopathy (Acute) History of total left hip replacement (Acute) Bilateral leg pain (Acute) Altered mental status (Acute) Confusion Avascular necrosis of femur Hip pain Ambulatory dysfunction (Acute) Hyperammonemia (Acute) Acute pain of left hip (Acute) Alcoholic cirrhosis Dilated aortic root Acute alteration in mental status (Acute) Thrombocytopenia (Acute) Bilateral arm weakness (Acute) Acute hepatic encephalopathy (Acute) H/O angioedema (Chronic) ongoing, follows with allergy Elevated LFTs (Acute) HTN (hypertension) (Chronic) Acid reflux Abnormal PFT Thrombocytopenia UTI (urinary tract infection) Cirrhosis of liver Cough Encounter for pre-operative examination RUQ pain Insomnia (Chronic) Intractable right upper quadrant abdominal pain (Acute) GERD (gastroesophageal reflux disease) (Chronic) Migraine (Chronic) Medical History History of ascites Acute alteration in mental status Nausea HLD (hyperlipidemia) Hypertension Hyperlipidemia Surgical History History of esophagogastroduodenoscopy (EGD) History of colonoscopy History of bowel resection 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 History of appendectomy History of tooth extraction Family History Father Hearing loss Hypertension Stroke Heart disease Other No pertinent family history in first degree relatives Denies family history of No family history of adverse response to anesthesia No family history of bleeding disorder Allergies Asthma Social History Smoking Status: Never smoker Tobacco Type: Cigarettes Cigarettes Per Day: 1; Second Hand Exposure: No; Do You Dip or Chew Tobacco: No; Hx Alcohol Use: No Hx Substance Use: No Preferred Language: Ukrainian Communication Ability: Effective Grocery Packer Required: No Beliefs That Will Affect Care: None marital status: Life Partner marital status details: fiance Current Living Situation: Significant Other Current Living Situation Comment: LIVES WITH GIRLFRIEND current occupational status: 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 How many Children do You have: 0 Feels Safe at Home: Yes Assistive Devices: Cane, Denture - Lower, Glasses and Walker Allergies Allergies Allergy/AdvReac Type Severity Reaction Status Date / Time bee venom protein (honey bee) Allergy Severe Anaphylaxis--CARRIES Verified 10/28/24 10:25 AN EPIPEN Home Meds Home Medications Medication Instructions Recorded Confirmed atorvastatin 20 mg tablet 20 mg PO QAM 04/20/24 11/03/24 duloxetine 30 mg capsule,delayed 30 mg PO QAM 04/20/24 11/03/24 release ferrous sulfate 325 mg (65 mg 325 mg PO QAM 04/20/24 11/03/24 iron) tablet furosemide 40 mg tablet 40 mg PO QAM 04/20/24 11/03/24 gabapentin 100 mg capsule 100 mg PO TID 04/20/24 11/03/24 lactulose 10 gram/15 mL oral 30 ml PO QID 04/20/24 11/03/24 solution magnesium oxide 400 mg (241.3 mg 400 mg PO BID 04/20/24 11/03/24 magnesium) tablet pantoprazole 40 mg tablet,delayed 40 mg PO BID 04/20/24 11/03/24 release (Protonix) rifaximin 550 mg tablet (Xifaxan) 550 mg PO BID 04/20/24 11/03/24 clonidine HCl 0.1 mg tablet 0.1 mg PO BID 08/18/24 11/03/24 cyanocobalamin (vitamin B-12) 1,000 mcg PO DAILY 08/18/24 11/03/24 1,000 mcg tablet (Vitamin B-12) meloxicam 15 mg tablet 15 mg PO DAILY 08/18/24 11/03/24 trazodone 50 mg tablet 50 - 100 mg PO HS 08/18/24 11/03/24 vitamin A 3,000 mcg (10,000 unit) 6,000 mcg PO DAILY 08/18/24 11/03/24 capsule lidocaine 5 % topical patch 1 patch topical DAILY PRN Pain 11/03/24 11/03/24 (Lidoderm) Previous Rx's Medication Instructions Recorded acetaminophen 500 mg tablet 1,000 mg (2 x 500 mg) PO Q8H PRN 08/19/24 (Tylenol Extra Strength) fever or pain #100 tabs Results & Data (ED) Vital Signs Vital Signs - 24 hr 11/03/24 12:38 11/03/24 12:52 11/03/24 12:54 Temperature 36.9 C Temperature Source Temporal Artery Scan Pulse Rate 86 82 86 Pulse Rate [Apical] Pulse Rate from SpO2 Sensor Pulse Rhythm Regular Respiratory Rate 18 19 18 Respiratory Effort / Characteristics Non-Labored Spontaneous Respiratory Depth Normal Respiratory Pattern Blood Pressure 139/85 174/99 H Blood Pressure [Right Arm] Blood Pressure Mean 103 127 Blood Pressure Mean [Right Arm] Blood Pressure Position Sitting Blood Pressure Position [Right Arm] Pulse Oximetry 95 95 Oxygen Delivery Method Room Air Room Air Sepsis Recent Fever Within 48 Hours No Sepsis New/Unexplained Change in Mental Status N/A Sepsis Action Taken by Nursing No Action Required 11/03/24 12:56 11/03/24 13:21 11/03/24 13:24 Temperature Temperature Source Pulse Rate 70 Pulse Rate [Apical] 70 Pulse Rate from SpO2 Sensor 70 Pulse Rhythm Respiratory Rate 23 18 Respiratory Effort / Characteristics Non-Labored Spontaneous Non-Labored Spontaneous Respiratory Depth Normal Normal Respiratory Pattern Regular Blood Pressure 138/105 H Blood Pressure [Right Arm] 138/105 H Blood Pressure Mean 116 Blood Pressure Mean [Right Arm] 116 Blood Pressure Position Blood Pressure Position [Right Arm] Lying Pulse Oximetry 97 98 Oxygen Delivery Method Room Air Room Air Sepsis Recent Fever Within 48 Hours Sepsis New/Unexplained Change in Mental Status Sepsis Action Taken by Nursing 11/03/24 13:30 11/03/24 14:00 11/03/24 14:30 Temperature Temperature Source Pulse Rate 69 76 71 Pulse Rate [Apical] Pulse Rate from SpO2 Sensor 70 75 Pulse Rhythm Respiratory Rate 17 18 Respiratory Effort / Characteristics Respiratory Depth Respiratory Pattern Blood Pressure 134/98 139/92 Blood Pressure [Right Arm] Blood Pressure Mean 110 107 Blood Pressure Mean [Right Arm] Blood Pressure Position Blood Pressure Position [Right Arm] Pulse Oximetry 98 98 Oxygen Delivery Method Sepsis Recent Fever Within 48 Hours Sepsis New/Unexplained Change in Mental Status Sepsis Action Taken by Jail Medications Current Medication List: was personally reviewed by me Laboratory Data Attestation: I reviewed the patient's lab results. 11/03/24 13:06 11/03/24 13:06 Lab Results 11/03/24 11/03/24 Range/Units 13:06 13:46 WBC 4.17 L (4.8-10.8) K/ul RBC 4.61 L (4.70-6.10) M/uL Hgb 15.6 (14.0-18.0) g/dl Hct 44.7 (42.0-52.0) % MCV 97.0 (80.0-100.0) fL MCH 33.8 (25.0-34.0) pg MCHC 34.9 (32.0-36.0) g/dL RDW Std Deviation 51.8 H (36.4-46.3) fL RDW Coeff of Fabiola 14.3 (11.5-14.5) % Plt Count 37 L (130-400) K/uL MPV 12.7 H (9.4-12.4) fL Immature Gran % (Auto) 0.0 % Neut % (Auto) 56.0 % Lymph % (Auto) 23.7 % Divide % (Auto) 15.3 % Eos % (Auto) 3.8 % Baso % (Auto) 1.2 % Neut # (Auto) 2.33 (1.40-6.50) K/uL Lymph # (Auto) 0.99 L (1.20-3.40) K/uL Divide # (Auto) 0.64 H (0.11-0.59) K/uL Eos # (Auto) 0.16 (0.00-0.50) K/uL Baso # (Auto) 0.05 (0.00-0.20) K/uL Immature Gran # (Auto) 0.00 L (0.01-0.20) K/uL PT 13.3 H (9.0-12.0) Seconds INR 1.2 H (0.9-1.1) APTT 31 (21-31) Seconds PTT Ratio 1.2 Sodium 139 (136-145) mmol/L Potassium 4.6 (3.5-5.1) mmol/L Chloride 110 H (98-107) mmol/L Carbon Dioxide 24 (21-32) mmol/L Anion Gap 5 (3-11) BUN 15 (6-23) mg/dl Creatinine 0.95 (0.6-1.4) mg/dl Est Cr Clr Drug Dosing 93.7 ml/min eGFR 91.63 BUN/Creatinine Ratio 15.8 (10-20) Glucose 103 H (70-99(Fasting)) mg/dl Calcium 8.9 (8.6-10.3) mg/dl Magnesium 1.9 (1.7-2.4) mg/dl Total Bilirubin 2.4 H (0.2-1.0) mg/dl AST 48 H (13-39) U/L ALT 34 (7-52) U/L Alkaline Phosphatase 163 H (34-104) U/L Ammonia 164.0 H (18-72) umol/L Troponin I High Sens 6.9 (0-20) pg/ml Total Protein 6.3 (6.0-8.3) gm/dl Albumin 3.6 (3.4-5.0) gm/dl Globulin 2.7 (2.5-4.0) gm/dl Albumin/Globulin Ratio 1.3 (0.9-2) Lipase 35 (11-82) U/L Urine Color Yellow Urine Appearance Clear (Clear) Urine pH 6.0 (4.5-7.5) Ur Specific [place] 1.009 (1.000-1.030) Urine Protein Trace H (Negative) Urine Glucose (UA) Negative (Negative) Urine Ketones Negative (Negative) Urine Blood Negative (Negative) Urine Nitrite Negative (Negative) Urine Bilirubin Negative (Negative) Urine Urobilinogen Negative (Negative) Ur Leukocyte Esterase Trace H (Negative) Urine WBC (Auto) 0-5 (0-5) /hpf Urine RBC (Auto) 0-2 (0-2) /hpf U Hyaline Cast (Auto) 3-5 H (0-2) /lpf U Epithel Cells (Auto) 0-2 (0-2) /hpf Urine Bacteria (Auto) None Seen (None Seen) Urine Sperm Present A (None Prsent) Urine Comment Administered Medications Discontinued Medications Lactulose (Lactulose Syrup 20 Gm/30 Ml Udc) 30 gm PO NOW STA Stop: 11/03/24 13:35 Last Admin: 11/03/24 13:48 Dose: 30 gm Documented By: [email or web address] Imaging Data Attestation: I personally reviewed and interpreted this imaging study as follows: My Impression: 1 view chest x-ray was obtained in the emergency department. My interpretation is no free air or definite infiltrate, final report below. Radiologist's Impression: Cervical Spine CT 11/03/24 12:54 CT SCAN OF THE CERVICAL SPINE CLINICAL HISTORY: Change in mental status. Fall. COMPARISON STUDY: Cervical spine CT dated 08/18/2024 TECHNIQUE: CT scan of the cervical spine is performed from the skull base to the upper thoracic spine. Images are reviewed in the axial, sagittal, and coronal planes. IV contrast was not administered for this examination. A dose lowering technique was utilized adhering to the principles of ALARA. CT DOSE: 1164.98 mGy.cm FINDINGS: Skeletal structures: The skeletal structures are well mineralized. There is no evidence of fracture or subluxation involving the cervical spine. Vertebral body height and alignment are maintained. The odontoid process and lateral masses are intact. There is partial bony fusion of the posterior elements at C2 and C3. The atlantoaxial articulation is preserved noting productive degenerative change. The spinous processes appear intact. There is minimal facet arthropathy in the cervical spine. Intervertebral discs: There is mild disc space narrowing at C5-C6. The remaining disc spaces appear maintained. Central canal: Widely patent. Soft tissues: The prevertebral and paraspinous soft tissues are within normal limits. There is atherosclerotic calcification of the carotid bulbs. Calvarium: The visualized calvarium at the skull base appears intact. Brain parenchyma: Partially visualized brain parenchyma at the skull base is within normal limits. Sinuses and mastoids: The visualized paranasal sinuses are clear. There is trace left mastoid effusion. The right mastoid air cells are well pneumatized. Lung apices: Clear as visualized. IMPRESSION: There is no evidence of cervical spine fracture or subluxation. ACT 112: Negative or not required by law. Electronically signed by: Anderson Henry M.D. 11/03/2024 1:53 PM Chest X-Ray 11/03/24 12:54 SINGLE VIEW CHEST CLINICAL HISTORY: Chest pain FINDINGS: An AP, portable, upright chest radiograph is compared to chest x-ray and chest CT dated 08/18/2024. The heart is mildly enlarged. The pulmonary vasculature is noncongested. There is mild bibasilar atelectasis. The lungs and pleural spaces are otherwise clear. No pneumothorax is seen. The bony thorax is grossly intact. IMPRESSION: No acute cardiopulmonary abnormality is identified. ACT 112: Negative or not required by law. Electronically signed by: Anderson Henry M.D. 11/03/2024 1:[address] 11/03/24 12:54 CT SCAN OF THE BRAIN WITHOUT IV CONTRAST CLINICAL HISTORY: Change in mental status. COMPARISON STUDY: CT of the brain dated 08/18/2024 TECHNIQUE: Unenhanced axial CT scan of the brain is performed from the vertex to the skull base. Images are reviewed in the axial, sagittal, and coronal planes. A dose lowering technique was utilized adhering to the principles of ALARA. FINDINGS: Brain parenchyma: There is minimal microangiopathic change. There is no hemorrhage, mass effect, or evidence of acute territorial ischemia by CT criteria. Nogueira-white matter differentiation is preserved. No extra-axial fluid collection is seen. Ventricles, sulci, cisterns: Normal in configuration. Intracranial vasculature: There is atherosclerotic calcification of the cavernous carotid arteries. Calvarium: Unremarkable. Sinuses and mastoids: The visualized paranasal sinuses are clear. There is trace left mastoid effusion. The right mastoid air cells are well pneumatized. Orbits: The bony orbits are grossly intact. There are bilateral ocular lens implants. IMPRESSION: There is no hemorrhage, mass effect, or evidence of acute territorial ischemia by CT criteria. ACT 112: Negative or not required by law. Electronically signed by: Anderson Henry M.D. 11/03/2024 1:49 PM Discharge Plan Visit Data Chief Complaint: Cardiac Assessment Stated Complaint: CHEST PAINS ED Provider: Zay Nelson Discharge Problem: Acute hepatic encephalopathy, Hyperammonemia, Acute confusion, Chest pain, Thrombocytopenia Patient Disposition: Being Evaluated by Hospitalist Condition: Fair Forms Stand Alone Forms: My [facility] Prescriptions Prescriptions: No Action furosemide 40 mg tablet 40 mg PO QAM atorvastatin 20 mg tablet 20 mg PO QAM magnesium oxide 400 mg (241.3 mg magnesium) tablet 400 mg PO BID gabapentin 100 mg capsule 100 mg PO TID duloxetine 30 mg capsule,delayed release(DR/EC) 30 mg PO QAM lactulose 10 gram/15 mL solution 30 ml PO QID Xifaxan 550 mg tablet 550 mg PO BID pantoprazole [Protonix] 40 mg Tablet,Delayed Release (Dr/Ec) 40 mg PO BID ferrous sulfate 325 mg (65 mg iron) Tablet 325 mg PO QAM lidocaine [Lidoderm] 5 % adhesive patch,medicated 1 patch topical DAILY PRN (Reason: Pain) Rx Instructions: leave on most painful area for up to 12 hrs clonidine HCl 0.1 mg tablet 0.1 mg PO BID meloxicam 15 mg tablet 15 mg PO DAILY cyanocobalamin (vitamin B-12) [Vitamin B-12] 1,000 mcg Tablet 1,000 mcg PO DAILY vitamin A 3,000 mcg (10,000 unit) Capsule 6,000 mcg PO DAILY trazodone 50 mg tablet 50 - 100 mg PO HS acetaminophen [Tylenol Extra Strength] 500 mg tablet 1,000 mg PO Q8H PRN (Reason: fever or pain) Qty: 100 0RF Referrals Referrals: Toby Paz MD [Primary Care Provider] -
[2024-11-03 13:20] LABS: Hematocrit (blood only) 44.7 % (42.0-52.0); Hemoglobin 15.6 g/dl (14.0-18.0); Immature Granulocytes # (auto) 0.00 K/uL (0.01-0.20); Immature Granulocytes % (auto) 0.0 %; Mean Corpuscular Hemoglobin 33.8 pg (25.0-34.0); Mean Corpuscular Volume 97.0 fL (80.0-100.0); Platelet Count 37 K/uL (130-400); RDW Standard Deviation 51.8 fL (36.4-46.3); Red Blood Count 4.61 M/uL (4.70-6.10); White Blood Count 4.17 K/ul (4.8-10.8)
[2024-11-03 13:39] LABS: Alanine Aminotransferase 34.0 U/L (7-52); Albumin Globulin Ratio 1.3 (0.9-2); Alkaline Phosphatase 163.0 U/L (34-104); Anion Gap 5.0 (3-11); Bilirubin,Total 2.4 mg/dl (0.2-1.0); Blood Urea Nitrogen 15.0 mg/dl (6-23); Calcium 8.9 mg/dl (8.6-10.3); Carbon Dioxide 24.0 mmol/L (21-32); Chloride 110.0 mmol/L (98-107); Creatinine Clr Calc Pharmacy 93.7 ml/min; Globulin 2.7 gm/dl (2.5-4.0); Glucose 103.0 mg/dl (70-99(Fasting)); Lipase 35.0 U/L (11-82); Magnesium 1.9 mg/dl (1.7-2.4); Potassium 4.6 mmol/L (3.5-5.1); Sodium 139.0 mmol/L (136-145); Total Protein 6.3 gm/dl (6.0-8.3)
--- NOTE | 2024-11-03 13:41 | XRay Report ---
SINGLE VIEW CHEST CLINICAL HISTORY: Chest pain FINDINGS: An AP, portable, upright chest radiograph is compared to chest x-ray and chest CT dated 08/01. The heart is mildly enlarged. The pulmonary vasculature is noncongested. There is mild bibasi lar atelectasis. The lungs and pleural spaces are otherwise clear. No pneumothorax is seen. The bony thorax is grossly intact. IMPRESSION: No acute cardiopulmonary abnormality is identified. ACT 112: Negative or not required by law. Electronically signed by: Anderson Henry M.D. 11/03/2024 1:39 PM
[2024-11-03] MEDS: LACTULOSE SYRUP 20 GM/30 ML UDC PO STA (13:48)
--- NOTE | 2024-11-03 13:50 | CT Scan Report ---
CT SCAN OF THE BRAIN WITHOUT IV CONTRAST CLINICAL HISTORY: Change in mental status. COMPARISON STUDY: CT of the brain dated 08/18/2024 TECHNIQUE: Unenhanced axial CT scan of the brain is performed from the vertex to the skull base. Imag es are reviewed in the axial, sagittal, and coronal planes. A dose lowering technique was utilized a dhering to the principles of ALARA. FINDINGS: Brain parenchyma: There is minimal microangiopathic change. There is no hemorrhage, mass effect, or e vidence of acute territorial ischemia by CT criteria. Nogueira-white matter differentiation is preserved. No extra-axial fluid collection is seen. Ventricles, sulci, cisterns: Normal in configuration. Intracranial vasculature: There is atherosclerotic calcification of the cavernous carotid arteries. Calvarium: Unremarkable. Sinuses and mastoids: The visualized paranasal sinuses are clear. There is trace left mastoid effusio n. The right mastoid air cells are well pneumatized. Orbits: The bony orbits are grossly intact. There are bilateral ocular lens implants. IMPRESSION: There is no hemorrhage, mass effect, or evidence of acute territorial ischemia by CT ronnie danielson. ACT 112: Negative or not required by law. Electronically signed by: Anderson Henry M.D. 11/03/2024 1:49 PM
[2024-11-03 13:52] LABS: INR 1.2 (0.9-1.1); Partial Thromboplastin Time 31 Seconds (21-31); Prothrombin Time 13.3 Seconds (9.0-12.0)
--- NOTE | 2024-11-03 13:54 | CT Scan Report ---
CT SCAN OF THE CERVICAL SPINE CLINICAL HISTORY: Change in mental status. Fall. COMPARISON STUDY: Cervical spine CT dated 08/18/2024 TECHNIQUE: CT scan of the cervical spine is performed from the skull base to the upper thoracic spine . Images are reviewed in the axial, sagittal, and coronal planes. IV contrast was not administered fo r this examination. A dose lowering technique was utilized adhering to the principles of ALARA. CT DOSE: 1164.98 mGy.cm FINDINGS: Skeletal structures: The skeletal structures are well mineralized. There is no evidence of fracture o r subluxation involving the cervical spine. Vertebral body height and alignment are maintained. The odontoid process and lateral masses are intact. There is partial bony fusion of the posterior element s at C2 and C3. The atlantoaxial articulation is preserved noting productive degenerative change. The spinous processes appear intact. There is minimal facet arthropathy in the cervical spine. Intervertebral discs: There is mild disc space narrowing at C5-C6. The remaining disc spaces appear m aintained. Central canal: Widely patent. Soft tissues: The prevertebral and paraspinous soft tissues are within normal limits. There is athero sclerotic calcification of the carotid bulbs. Calvarium: The visualized calvarium at the skull base appears intact. Brain parenchyma: Partially visualized brain parenchyma at the skull base is within normal limits. Sinuses and mastoids: The visualized paranasal sinuses are clear. There is trace left mastoid effusio n. The right mastoid air cells are well pneumatized. Lung apices: Clear as visualized. IMPRESSION: There is no evidence of cervical spine fracture or subluxation. ACT 112: Negative or not required by law. Electronically signed by: Anderson Henry M.D. 11/03/2024 1:53 PM
[2024-11-03 14:19] LABS: Appearance Urine Clear (Clear); Bacteria Urine Automated None Seen (None Seen); Epithelial Cell Urine Auto 0-2 /hpf (0-2); Glucose Urine UA Negative (Negative); RBC Urine Automated 0-2 /hpf (0-2); WBC Urine Automated 0-5 /hpf (0-5)
--- NOTE | 2024-11-03 14:49 | History & Physical Report ---
Date of Service November 03, 2024 Assessment & Plan (1) Acute hepatic encephalopathy: (2) Chest pain: (3) Alcoholic cirrhosis: (4) Thrombocytopenia: (5) GERD (gastroesophageal reflux disease): (6) Depression: (7) Hypertension: (8) Hyperlipidemia: Plan This is a 59 y/o male with hx of alcoholic cirrhosis, recurrent hepatic encephalopathy, thrombocytopenia, hx esophageal varices without bleeding, prior ME, hx TIA, HTN, GERD, depression, avascular necrosis of left hip, hx ARGELIA/anemia of chronic disease and other history as outlined below who presents to the ED today with left chest pain, confusion, recurrent falls. Work-up in the ED revealed a negative troponin, negative chest x-ray. EKG reviewed. Labs significant for ammonia of 164 (in August it was 95), elevated total bilirubin/AST/alk phos around baseline, INR 1.2, platelets 37, H&H normal at 15.6/44.7. Calculated MELD today is 12. #Hepatic encephalopathy #Recurrent falls/ambulatory dysfunction #Cirrhosis secondary to EtOH #Chronic thrombocytopenia - Admit to med telemetry - Increase lactulose to 30 g QID, continue Xifaxan - Hold gabapentin, trazodone - pt denies taking lorazepam or oxycodone previously prescribed - Hold furosemide for now - reevaluate in the AM - Limited US to r/o ascites/SBP - Consult GI for additional recommendations - Fall precautions - PT/OT evaluations - Pt was previously prescribed meloxicam by orthopedics - will discontinue in view of liver disease #Chest pain - seems most likely MSK related to prior rib fractures - Repeat troponin tonight, EKG in AM - Lidocaine patch to area #Hypertension - Continue clonidine #GERD - Chronic, continue pantoprazole #Hyperlipidemia - Chronic, continue statin #Depression - Chronic, continue duloxetine #History ARGELIA/anemia of chronic disease - H&H within normal range today, no evidence of active bleeding - Continue daily ferrous sulfate Pt seen and reviewed with collaborating physician, Dr. Faria. Plan of care discussed and as outlined above. Code status: full code DVT prophylaxis: SCDs in view of thrombocytopenia Diet: 2 g sodium Elda Avila PA-C History of Present Illness Chief Complaint: chest pain, falls, weakness Primary Care Provider: Toby Paz MD This is a 59 y/o male with hx of alcoholic cirrhosis, recurrent hepatic encephalopathy, thrombocytopenia, hx esophageal varices without bleeding, prior ME, hx TIA, HTN, GERD, depression, avascular necrosis of left hip, anemia of chronic disease and other history as outlined below who presents to the ED today with left chest pain, confusion, recurrent falls. Pt's fiance is at bedside and assists with the history as pt has difficulty recalling much of the last several days. He has reportedly had progressive confusion over the last 1-2 weeks, even with taking lactulose 4x/day as prescribed. His fiance reports that he will often forget what he's doing, where he puts things, to the point that she took off work for the last week because she didn't feel safe leaving him alone at home. He has had some nausea with the lactulose and has vomiting shortly after taking it a few times in the last week or two. He has had multiple falls at home, which pt reports is due to loss of balance - denies syncope or lightheadedness. His fiance reports that he stumbles very often at home but does not always fall. He was admitted in August of this year after a fall off a ladder with resultant left rib fractures and RLE abrasion. He reports ongoing issues with the wound and is following with the wound clinic [facility]. He reports that the area is still very tender to touch and intermittently swollen. He has complete courses of cephalexin and Bactrim for this but continues to have issues. He had an outpatient ultrasound for possible fluid collection last week and was scheduled to f/u with wound care to discuss the results this week. He denies fevers, chills. He notes intermittent left sided chest pain in the area of prior rib fractures. He has also noted increase ERVIN, improves with rest. Intermittent issues with LE edema. He feels like his abdominal distention has progressed over the last year but is unsure if it is worse now than it was a few weeks ago. He was supposed to have an appointment with hepatology on but reports that he didn't remember it so he missed the appointment. Allergies Allergy/AdvReac Type Severity Reaction Status Date / Time bee venom protein (honey bee) Allergy Severe Anaphylaxis--CARRIES Verified 10/28/24 10:25 AN EPIPEN Home Medications Medication Instructions Recorded Confirmed Type atorvastatin 20 mg tablet 20 mg PO QAM 04/20/24 11/03/24 History duloxetine 30 mg capsule,delayed 30 mg PO QAM 04/20/24 11/03/24 History release ferrous sulfate 325 mg (65 mg 325 mg PO QAM 04/20/24 11/03/24 History iron) tablet furosemide 40 mg tablet 40 mg PO QAM 04/20/24 11/03/24 History gabapentin 100 mg capsule 100 mg PO TID 04/20/24 11/03/24 History lactulose 10 gram/15 mL oral 30 ml PO QID 04/20/24 11/03/24 History solution magnesium oxide 400 mg (241.3 mg 400 mg PO BID 04/20/24 11/03/24 History magnesium) tablet pantoprazole 40 mg tablet,delayed 40 mg PO BID 04/20/24 11/03/24 History release (Protonix) rifaximin 550 mg tablet (Xifaxan) 550 mg PO BID 04/20/24 11/03/24 History clonidine HCl 0.1 mg tablet 0.1 mg PO BID 08/18/24 11/03/24 History meloxicam 15 mg tablet 15 mg PO DAILY 08/18/24 11/03/24 History trazodone 50 mg tablet 50 - 100 mg PO HS 08/18/24 11/03/24 History vitamin A 3,000 mcg (10,000 unit) 6,000 mcg PO DAILY 08/18/24 11/03/24 History capsule acetaminophen 500 mg tablet 1,000 mg (2 x 500 mg) PO Q8H PRN 08/19/24 11/03/24 Rx (Tylenol Extra Strength) fever or pain #100 tabs albuterol sulfate 90 mcg/actuation 2 inh inhalation Q4H PRN Shortness 11/03/24 11/03/24 History aerosol inhaler Of Breath zinc acetate 50 mg (zinc) capsule 50 mg PO BID 11/03/24 11/03/24 History Past Med/Surg History Problem List (Updated 11/03/24 @ 16:53 by Che Avila PA-C) Thrombocytopenia (Acute) Chest pain (Acute) Acute hepatic encephalopathy (Acute) Traumatic open wound of right lower leg with delayed healing (Acute) Hyperammonemia (Acute) Medical History Migraine Hx SBO Alcoholic cirrhosis Dilated aortic root Insomnia H/O angioedema ongoing, follows with allergy Avascular necrosis of femur GERD (gastroesophageal reflux disease) Depression Hepatic encephalopathy Basilar artery aneurysm Left rib fracture History of ascites Hypertension Hyperlipidemia Surgical History History of total left hip replacement History of esophagogastroduodenoscopy (EGD) History of colonoscopy History of bowel resection 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 History of appendectomy History of tooth extraction Family History Father Hearing loss Hypertension Stroke Heart disease Other No pertinent family history in first degree relatives Denies family history of No family history of adverse response to anesthesia No family history of bleeding disorder Allergies Asthma Social History Smoking Status: Never smoker Tobacco Type: Cigarettes Cigarettes Per Day: 1; Second Hand Exposure: No; Do You Dip or Chew Tobacco: No; Hx Alcohol Use: No Hx Substance Use: No Preferred Language: Luxembourger Communication Ability: Effective Corn Cooker Required: No Beliefs That Will Affect Care: None marital status: Life Partner marital status details: fiance Current Living Situation: Significant Other Current Living Situation Comment: LIVES WITH GIRLFRIEND current occupational status: 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 How many Children do You have: 0 Feels Safe at Home: Yes Assistive Devices: Cane, Denture - Lower, Glasses and Walker Review of Systems Review of Systems: All systems reviewed & are unremarkable except as noted in Subjective Physical Exam Physical Exam: General: awake, alert, NAD HEENT: trace scleral icterus Neck: supple, trachea midline Heart: RRR Lungs: CTA bilaterally, no W/R/R Abdomen: softly distended, mild diffuse tenderness, +BS Extremities: trace LE edema, tender over RLE at site of prior wound, mildly swollen Neurologic: speech slowed, Ox3 but difficulty with recollection of recent events, +asterixis Results & Data Results & Data Vital Signs (Past 12 Hours) Vital Signs Temp Pulse Pulse Resp BP BP Pulse Ox 11/03/24 14:30 71 11/03/24 14:00 76 18 139/92 98 11/03/24 13:30 69 17 134/98 98 11/03/24 13:24 70 18 138/105 H 98 11/03/24 13:21 70 23 138/105 H 97 11/03/24 12:56 11/03/24 12:54 86 18 95 11/03/24 12:52 82 19 174/99 H 11/03/24 12:38 36.9 C 86 18 139/85 95 O2 Del Method 11/03/24 14:30 11/03/24 14:00 11/03/24 13:30 11/03/24 13:24 Room Air 11/03/24 13:21 11/03/24 12:56 Room Air 11/03/24 12:54 Room Air 11/03/24 12:52 11/03/24 12:38 Room Air Laboratory Results Lab Results 11/03/24 11/03/24 Range/Units 13:06 13:46 WBC 4.17 L (4.8-10.8) K/ul RBC 4.61 L (4.70-6.10) M/uL Hgb 15.6 (14.0-18.0) g/dl Hct 44.7 (42.0-52.0) % MCV 97.0 (80.0-100.0) fL MCH 33.8 (25.0-34.0) pg MCHC 34.9 (32.0-36.0) g/dL RDW Std Deviation 51.8 H (36.4-46.3) fL RDW Coeff of Fabiola 14.3 (11.5-14.5) % Plt Count 37 L (130-400) K/uL MPV 12.7 H (9.4-12.4) fL Immature Gran % (Auto) 0.0 % Neut % (Auto) 56.0 % Lymph % (Auto) 23.7 % [place] % (Auto) 15.3 % Eos % (Auto) 3.8 % Baso % (Auto) 1.2 % Neut # (Auto) 2.33 (1.40-6.50) K/uL Lymph # (Auto) 0.99 L (1.20-3.40) K/uL [place] # (Auto) 0.64 H (0.11-0.59) K/uL Eos # (Auto) 0.16 (0.00-0.50) K/uL Baso # (Auto) 0.05 (0.00-0.20) K/uL Immature Gran # (Auto) 0.00 L (0.01-0.20) K/uL PT 13.3 H (9.0-12.0) Seconds INR 1.2 H (0.9-1.1) APTT 31 (21-31) Seconds PTT Ratio 1.2 Sodium 139 (136-145) mmol/L Potassium 4.6 (3.5-5.1) mmol/L Chloride 110 H (98-107) mmol/L Carbon Dioxide 24 (21-32) mmol/L Anion Gap 5 (3-11) BUN 15 (6-23) mg/dl Creatinine 0.95 (0.6-1.4) mg/dl Est Cr Clr Drug Dosing 93.7 ml/min eGFR 91.63 BUN/Creatinine Ratio 15.8 (10-20) Glucose 103 H (70-99(Fasting)) mg/dl Calcium 8.9 (8.6-10.3) mg/dl Magnesium 1.9 (1.7-2.4) mg/dl Total Bilirubin 2.4 H (0.2-1.0) mg/dl AST 48 H (13-39) U/L ALT 34 (7-52) U/L Alkaline Phosphatase 163 H (34-104) U/L Ammonia 164.0 H (18-72) umol/L Troponin I High Sens 6.9 (0-20) pg/ml Total Protein 6.3 (6.0-8.3) gm/dl Albumin 3.6 (3.4-5.0) gm/dl Globulin 2.7 (2.5-4.0) gm/dl Albumin/Globulin Ratio 1.3 (0.9-2) Lipase 35 (11-82) U/L Urine Color Yellow Urine Appearance Clear (Clear) Urine pH 6.0 (4.5-7.5) Ur Specific [place] 1.009 (1.000-1.030) Urine Protein Trace H (Negative) Urine Glucose (UA) Negative (Negative) Urine Ketones Negative (Negative) Urine Blood Negative (Negative) Urine Nitrite Negative (Negative) Urine Bilirubin Negative (Negative) Urine Urobilinogen Negative (Negative) Ur Leukocyte Esterase Trace H (Negative) Urine WBC (Auto) 0-5 (0-5) /hpf Urine RBC (Auto) 0-2 (0-2) /hpf U Hyaline Cast (Auto) 3-5 H (0-2) /lpf U Epithel Cells (Auto) 0-2 (0-2) /hpf Urine Bacteria (Auto) None Seen (None Seen) Urine Sperm Present A (None Prsent) Urine Comment Diagnostic Findings Cervical Spine CT 11/03/24 12:54 CT SCAN OF THE CERVICAL SPINE CLINICAL HISTORY: Change in mental status. Fall. COMPARISON STUDY: Cervical spine CT dated 08/18/2024 TECHNIQUE: CT scan of the cervical spine is performed from the skull base to the upper thoracic spine. Images are reviewed in the axial, sagittal, and coronal planes. IV contrast was not administered for this examination. A dose lowering technique was utilized adhering to the principles of ALARA. CT DOSE: 1164.98 mGy.cm FINDINGS: Skeletal structures: The skeletal structures are well mineralized. There is no evidence of fracture or subluxation involving the cervical spine. Vertebral body height and alignment are maintained. The odontoid process and lateral masses are intact. There is partial bony fusion of the posterior elements at C2 and C3. The atlantoaxial articulation is preserved noting productive degenerative change. The spinous processes appear intact. There is minimal facet arthropathy in the cervical spine. Intervertebral discs: There is mild disc space narrowing at C5-C6. The remaining disc spaces appear maintained. Central canal: Widely patent. Soft tissues: The prevertebral and paraspinous soft tissues are within normal limits. There is atherosclerotic calcification of the carotid bulbs. Calvarium: The visualized calvarium at the skull base appears intact. Brain parenchyma: Partially visualized brain parenchyma at the skull base is within normal limits. Sinuses and mastoids: The visualized paranasal sinuses are clear. There is trace left mastoid effusion. The right mastoid air cells are well pneumatized. Lung apices: Clear as visualized. IMPRESSION: There is no evidence of cervical spine fracture or subluxation. ACT 112: Negative or not required by law. Electronically signed by: Anderson Henry M.D. 11/03/2024 1:53 PM Chest X-Ray 11/03/24 12:54 SINGLE VIEW CHEST CLINICAL HISTORY: Chest pain FINDINGS: An AP, portable, upright chest radiograph is compared to chest x-ray and chest CT dated 08/18/2024. The heart is mildly enlarged. The pulmonary vasculature is noncongested. There is mild bibasilar atelectasis. The lungs and pleural spaces are otherwise clear. No pneumothorax is seen. The bony thorax is grossly intact. IMPRESSION: No acute cardiopulmonary abnormality is identified. ACT 112: Negative or not required by law. Electronically signed by: Anderson Henry M.D. 11/03/2024 1:[address] 11/03/24 12:54 CT SCAN OF THE BRAIN WITHOUT IV CONTRAST CLINICAL HISTORY: Change in mental status. COMPARISON STUDY: CT of the brain dated 08/18/2024 TECHNIQUE: Unenhanced axial CT scan of the brain is performed from the vertex to the skull base. Images are reviewed in the axial, sagittal, and coronal planes. A dose lowering technique was utilized adhering to the principles of ALARA. FINDINGS: Brain parenchyma: There is minimal microangiopathic change. There is no hemorrhage, mass effect, or evidence of acute territorial ischemia by CT criteria. Nogueira-white matter differentiation is preserved. No extra-axial fluid collection is seen. Ventricles, sulci, cisterns: Normal in configuration. Intracranial vasculature: There is atherosclerotic calcification of the cavernous carotid arteries. Calvarium: Unremarkable. Sinuses and mastoids: The visualized paranasal sinuses are clear. There is trace left mastoid effusion. The right mastoid air cells are well pneumatized. Orbits: The bony orbits are grossly intact. There are bilateral ocular lens implants. IMPRESSION: There is no hemorrhage, mass effect, or evidence of acute territorial ischemia by CT criteria. ACT 112: Negative or not required by law. Electronically signed by: Anderson Henry M.D. 11/03/2024 1:49 PM Medications Administered Discontinued Medications Lactulose (Lactulose Syrup 20 Gm/30 Ml [facility]) 30 gm PO NOW STA Stop: 11/03/24 13:35 Last Admin: 11/03/24 13:48 Dose: 30 gm Documented By: amg Supervising Physician Co-Signing Physician Notes Patient seen and examined at bedside. Patient fiance present as well. Patient doing ok today. States he has some subleft rib cage pain radiating to back. Per fiance patient very confused past few days/week. On exam, asterixis noted, jaundice noted, bedside US without any significant ascites, trace pitting edema in legs bilaterally, cognitive slowing noted. Platelet 37, elevated ammonia, INR 1.2, elevated alk phos consistent with decompensated cirrhosis. Presentation consistent with decompensated alcohol cirrhosis with hepatic encephalopathy. Increase lactulose, continue rifaximin, GI consult for decompensated cirrhosis. Chest pain in region of prior rib fractures. PT/OT evaluation. I have seen and discussed the case with the collaborating advanced practitioner. I agree with the above H&P. I have reviewed and confirmed the patients medical history, the findings on physical examination, and the patients diagnosis and treatment plan with Che Avila PA-C and agree with the information documented. I spent a total of 20 minutes coordinating, documenting, and providing care for this patient excluding time spent in the performance of separately billed services. All of the aforementioned completed outside of collaborating with the assigned advanced practitioner for a full treatment plan. I have reviewed the advanced practitioner's documentation, and I agree with, and take responsibility for the plan of care (2) Chest pain Chest pain type: unspecified Qualified Code(s): R07.9 - Chest pain, unspecified (3) Alcoholic cirrhosis Ascites presence: unspecified Qualified Code(s): K70.30 - Alcoholic cirrhosis of liver without ascites (5) GERD (gastroesophageal reflux disease) Esophagitis presence: esophagitis presence not specified Qualified Code(s): K21.9 - Gastro-esophageal reflux disease without esophagitis (6) Depression Depression Type: unspecified Qualified Code(s): F32.A - Depression, unspecified (7) Hypertension Hypertension type: unspecified Qualified Code(s): I10 - Essential (primary) hypertension (8) Hyperlipidemia Hyperlipidemia type: unspecified Qualified Code(s): E78.5 - Hyperlipidemia, unspecified
[2024-11-03] MEDS: 4.5GM X1 IV STA (15:35)
[2024-11-03] MEDS: LIDOCAINE 5% 1 PATCH TD SCH (16:37)
--- NOTE | 2024-11-03 18:28 | Electrocardiogram Report ---
Test Reason : Blood Pressure : */* mmHG Vent. Rate : 76 BPM Atrial Rate : 76 BPM P-R Int : 168 ms QRS Dur : 76 ms QT Int : 398 ms P-R-T Axes : -25 -11 -19 degrees QTcB Int : 447 ms Normal sinus rhythm possible Inferior infarct , age undetermined Abnormal ECG When compared with ECG of 18-Aug-2024 13:41, T wave inversion now evident in Inferior leads Confirmed by Cachorro Mendoza ([id number]) on 11/03/2024 6:28:24 PM Referred By: REFERRED SELF Confirmed By: Cachorro Mendoza
[2024-11-03] MEDS ORDERED: ALBUTEROL HFA 8 GM INHALER INH PRN (18:38)
[2024-11-03] MEDS: LACTULOSE SYRUP 20 GM/30 ML UDC PO SCH (19:27)
[2024-11-03] MEDS ORDERED: PIPERACILLIN/TAZOBACTAM 4.5 GM/100 ML BAG IV SCH (20:00)
[2024-11-03] MEDS: MAGNESIUM OXIDE 400 MG TAB PO SCH (20:56)
[2024-11-03] MEDS: REMOVE LIDODERM PATCH SCH (20:56)
[2024-11-03] MEDS: MELATONIN 3 MG TAB PO PRN (21:14)
--- NOTE | 2024-11-04 01:55 | Ultrasound Report ---
Exam(s): US ABDOMEN LIMITED EXAM: US Abdomen Limited, limited abdominal survey CLINICAL HISTORY: Hepatic encephalopathy. TECHNIQUE: Real-time ultrasound survey of the abdomen with image documentation. COMPARISON: CT abdomen 11/16/2023. FINDINGS: Limited ultrasound survey of the abdomen without evidence for significant ascites. Fluid-filled peristalsing loops of bowel are noted. IMPRESSION: No evidence for significant ascites. Fluid-filled peristalsing loops of bowel are identified. Electronically signed by: Jayson Velasquez M.D. 11/04/24 01:54 AM
[2024-11-04 07:15] LABS: Hematocrit (blood only) 38.6 % (42.0-52.0); Hemoglobin 13.9 g/dl (14.0-18.0); Immature Granulocytes # (auto) 0.01 K/uL (0.01-0.20); Immature Granulocytes % (auto) 0.2 %; Mean Corpuscular Hemoglobin 34.9 pg (25.0-34.0); Mean Corpuscular Volume 97.0 fL (80.0-100.0); Platelet Count 35 K/uL (130-400); RDW Standard Deviation 51.8 fL (36.4-46.3); Red Blood Count 3.98 M/uL (4.70-6.10); White Blood Count 4.28 K/ul (4.8-10.8)
[2024-11-04 07:25] LABS: Alanine Aminotransferase 28.0 U/L (7-52); Alkaline Phosphatase 126.0 U/L (34-104); Anion Gap 5.0 (3-11); Bilirubin,Total 2.6 mg/dl (0.2-1.0); Blood Urea Nitrogen 18.0 mg/dl (6-23); Calcium 8.4 mg/dl (8.6-10.3); Carbon Dioxide 23.0 mmol/L (21-32); Chloride 112.0 mmol/L (98-107); Creatinine Clr Calc Pharmacy 86.8 ml/min; Glucose 102.0 mg/dl (70-99(Fasting)); Potassium 4.1 mmol/L (3.5-5.1); Sodium 140.0 mmol/L (136-145); Total Protein 5.6 gm/dl (6.0-8.3)
[2024-11-04 07:42] LABS: INR 1.3 (0.9-1.1); Prothrombin Time 13.7 Seconds (9.0-12.0)
[2024-11-04] MEDS: ATORVASTATIN 20 MG TAB PO SCH (08:15)
[2024-11-04] MEDS: FERROUS SULFATE 325 MG TAB PO SCH (08:16)
--- NOTE | 2024-11-04 10:42 | Gastrointestinal Consultation ---
Date of Consultation November 04, 2024 Assessment & Plan (1) Acute hepatic encephalopathy: (2) Hyperammonemia: Plan Patient is a 59 year old male with a past medical history of alcoholic cirrhosis, recurrent hepatic encephalopathy, thrombocytopenia, esophageal varices without bleeding, prior [place], TIA, HTN, GERD, depression, avascular necrosis of left hip, ARGELIA/anemia of chronic disease who presented to the ED 11/03/24 with complaints of left chest pain, confusion, and recurrent falls. Ammonia was found to be elevated at 164. Suspect that this is likely due to noncompliance with medications as he has had issues with this in the past. - continue with lactulose 30g QID. - continue with xifaxan 550mg bid. - once acute encephalopathy has resolved, would titrate dosage of lactulose down to ensure 2-3 bowel movements per day. - stressed the importance of medication compliance. - he should follow with his primary GI team at discharge. -Further recommendations to come with Supervising GI provider on medical rounds. Please see co-signature comments. Supervising Physician Co-Signing Physician Notes I personally saw and examined the patient. I have reviewed the chart and agree with the documentation provided by the MOVIE CRITIC including discussion about the assessment, treatment and plan. Briefly, 59 year old male with a past medical history of alcoholic cirrhosis, recurrent hepatic encephalopathy, thrombocytopenia, esophageal varices without bleeding, prior [place], TIA, HTN, GERD, depression, avascular necrosis of left hip, ARGELIA/anemia of chronic disease who presented to the ED 11/03/24 with complaints of left chest pain, confusion, and recurrent falls. Ammonia was found to be elevated at 164. He stopped taking his lactulose because it was causing him more diarrhea and discomfort. Suspect medical noncompliance leading to encephalopathy. I explained to him that he needs to take lactulose to titrate to 2-3 bowel movements a day. I explained that if he gets constipated even for a day or 2 this will lead to pretty significant encephalopathy and he seems to understand this. He has improved in his mentation but is still a little slow. His last CT was in August 2024. Please check an alpha-fetoprotein. This ultrasound here did not look at his liver just look for ascites and bowel loops. Redo a proper ultrasound of the liver in February 2025 outpt. History of Present Illness Reason for Consultation: hepatic encephalopathy. Requesting Physician: Jacaquelyn Austin PAC Attending Physician: Russ Carson MD History of Present Illness Patient is a 59 year old male with a past medical history of alcoholic cirrhosis, recurrent hepatic encephalopathy, thrombocytopenia, esophageal varices without bleeding, prior [place], TIA, HTN, GERD, depression, avascular necrosis of left hip, ARGELIA/anemia of chronic disease who presented to the ED 11/03/24 with complaints of left chest pain, confusion, and recurrent falls. Ammonia was found to be elevated at 164. He is alert, but not completely oriented when I speak with him this morning. He notes that at home he was using his lactulose, but admits he may not have been taking it properly. He has had past admission secondary to not taking the medications. He had been seen by out service in April of this year for this. he denies any etoh use. The remainder of the GI ROS were unremarkable. 11/04/24INR 1.3, wbc 4.28, hgb 13.9, hct 38.6, plts 35, BUN 18, creatinine 1.04. T bili 2.6, d bili 0.6, ast 42, alt 28, alk phos 126. 11/03/24 Nh3 164. 11/03/24 US No evidence for significant ascites. Fluid-filled peristalsing loops of bowel are identified. Allergies Allergy/AdvReac Type Severity Reaction Status Date / Time bee venom protein (honey bee) Allergy Severe Anaphylaxis--CARRIES Verified 10/28/24 10:25 AN EPIPEN Home Medications Medication Instructions Recorded Confirmed Type atorvastatin 20 mg tablet 20 mg PO QAM 04/20/24 11/03/24 History duloxetine 30 mg capsule,delayed 30 mg PO QAM 04/20/24 11/03/24 History release ferrous sulfate 325 mg (65 mg 325 mg PO QAM 04/20/24 11/03/24 History iron) tablet furosemide 40 mg tablet 40 mg PO QAM 04/20/24 11/03/24 History gabapentin 100 mg capsule 100 mg PO TID 04/20/24 11/03/24 History lactulose 10 gram/15 mL oral 30 ml PO QID 04/20/24 11/03/24 History solution magnesium oxide 400 mg (241.3 mg 400 mg PO BID 04/20/24 11/03/24 History magnesium) tablet pantoprazole 40 mg tablet,delayed 40 mg PO BID 04/20/24 11/03/24 History release (Protonix) rifaximin 550 mg tablet (Xifaxan) 550 mg PO BID 04/20/24 11/03/24 History clonidine HCl 0.1 mg tablet 0.1 mg PO BID 08/18/24 11/03/24 History meloxicam 15 mg tablet 15 mg PO DAILY 08/18/24 11/03/24 History trazodone 50 mg tablet 50 - 100 mg PO HS 08/18/24 11/03/24 History vitamin A 3,000 mcg (10,000 unit) 6,000 mcg PO DAILY 08/18/24 11/03/24 History capsule acetaminophen 500 mg tablet 1,000 mg (2 x 500 mg) PO Q8H PRN 08/19/24 11/03/24 Rx (Tylenol Extra Strength) fever or pain #100 tabs albuterol sulfate 90 mcg/actuation 2 inh inhalation Q4H PRN Shortness 11/03/24 11/03/24 History aerosol inhaler Of Breath zinc acetate 50 mg (zinc) capsule 50 mg PO BID 11/03/24 11/03/24 History Patient History Medical History Migraine Hx SBO Alcoholic cirrhosis Dilated aortic root Insomnia H/O angioedema ongoing, follows with allergy Avascular necrosis of femur GERD (gastroesophageal reflux disease) Depression Hepatic encephalopathy Basilar artery aneurysm Left rib fracture History of ascites Hypertension Hyperlipidemia Surgical History History of total left hip replacement History of esophagogastroduodenoscopy (EGD) History of colonoscopy History of bowel resection 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 History of appendectomy History of tooth extraction Family History Father Hearing loss Hypertension Stroke Heart disease Other No pertinent family history in first degree relatives Denies family history of No family history of adverse response to anesthesia No family history of bleeding disorder Allergies Asthma Social History Smoking Status: Never smoker Tobacco Type: Cigarettes Cigarettes Per Day: 1; Second Hand Exposure: No; Do You Dip or Chew Tobacco: No; Hx Alcohol Use: Yes Alcohol type: beer Hx Substance Use: No Preferred Language: Macedonian Communication Ability: Effective Childcare Center Administrator Required: No Beliefs That Will Affect Care: None marital status: Life Partner marital status details: fiance Current Living Situation: Significant Other Current Living Situation Comment: LIVES WITH GIRLFRIEND current occupational status: 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 Physical Exam Constitutional: WD/WN, vitals as above Respiratory: normal respiratory effort, lungs clear to auscultation Cardiovascular: Rate/Rhythm: regular rate and regular rhythm Gastrointestinal (Abdomen): normal bowel sounds, soft, nontender, no hepatosplenomegaly Psychiatric: Orientation: alert oriented x 2. Results & Data Vital Signs (Past 12 Hours) Vital Signs Temp Pulse Pulse Resp BP Pulse Ox O2 Del Method 11/04/24 07:43 97.9 F 82 16 148/81 H 95 Room Air 11/04/24 07:33 78 11/04/24 03:43 97.9 F 62 16 137/90 94 Room Air 11/03/24 22:59 97.9 F 85 18 122/82 90 Room Air Coding Level of Care Code 25018 IN/OBS CONSULT LVL 4,60M Diagnoses Acute hepatic encephalopathy K76.82 Hyperammonemia E72.20
--- NOTE | 2024-11-04 11:45 | Electrocardiogram Report ---
Test Reason : Blood Pressure : */* mmHG Vent. Rate : 79 BPM Atrial Rate : 79 BPM P-R Int : 172 ms QRS Dur : 76 ms QT Int : 400 ms P-R-T Axes : 39 16 48 degrees QTcB Int : 458 ms Normal sinus rhythm Normal ECG When compared with ECG of 03-Nov-2024 12:51, Criteria for Inferior infarct are no longer Present Nonspecific T wave abnormality has replaced inverted T waves in Inferior leads Confirmed by Cachorro Mendoza ([id number]) on 11/04/2024 11:45:15 AM Referred By: REFERRED SELF Confirmed By: Cachorro Mendoza
--- NOTE | 2024-11-04 17:10 | Hospitalist Progress Note ---
Date of Service November 04, 2024 Assessment & Plan (1) Acute hepatic encephalopathy: (2) Chest pain: (3) Alcoholic cirrhosis: (4) Thrombocytopenia: (5) GERD (gastroesophageal reflux disease): (6) Depression: (7) Hypertension: (8) Hyperlipidemia: Plan This is a 59 y/o male with hx of alcoholic cirrhosis, recurrent hepatic encephalopathy, thrombocytopenia, hx esophageal varices without bleeding, prior [place], hx TIA, HTN, GERD, depression, avascular necrosis of left hip, hx ARGELIA/anemia of chronic disease and other history as outlined below who presents to the ED today with left chest pain, confusion, recurrent falls. Work-up in the ED revealed a negative troponin, negative chest x-ray. EKG reviewed. Labs significant for ammonia of 164 (in August it was 95), elevated total bilirubin/AST/alk phos around baseline, INR 1.2, platelets 37, H&H normal at 15.6/44.7. Calculated MELD on admission 12. #Hepatic encephalopathy #Recurrent falls/ambulatory dysfunction #Cirrhosis secondary to EtOH #Chronic thrombocytopenia - Admitted to med telemetry - Increased lactulose to 30 g QID, continue Xifaxan - Hold gabapentin, trazodone - pt denies taking lorazepam or oxycodone previously prescribed - Hold furosemide for now - reevaluate in the AM - Limited US to r/o ascites/SBP -No evidence for significant ascites. Fluid- filled peristalsing loops of bowel are identified. - GI consulted for additional recommendations and discussed with - Fall precautions - PT/OT evaluations - Pt was previously prescribed meloxicam by orthopedics - now discontinued in view of liver disease #Chest pain - seems most likely MSK related to prior rib fractures - troponin x2 negative - Lidocaine patch to area - pain seems to be improved #Hypertension - Continue clonidine #GERD - Chronic, continue pantoprazole #Hyperlipidemia - Chronic, continue statin #Depression - Chronic, continue duloxetine #History ARGELIA/anemia of chronic disease - H&H within normal range on admission, no evidence of active bleeding - Continue daily ferrous sulfate Code status: full code DVT prophylaxis: SCDs in view of thrombocytopenia Diet: 2 g sodium Admission and Anticipated Discharge Date Admission Date: November 03, 2024 Subjective Pt seen in follow up hepatic encephalopathy Pt lying in bed in NAD, reports feeling better overall and asking about discharg e He says it's September (instead of November), otherwise able to answer simple questions appropriately Discussed w/ GI Review of Systems Review of Systems: All systems reviewed & are unremarkable except as noted in Subjective Physical Exam Physical Exam: General: awake, alert, NAD HEENT: NC/AT Neck: supple Heart: RRR Lungs: CTA bilaterally, no W/R/R Abdomen: softly distended, nontender, +BS, obese Extremities: trace LE edema, RLE modi- prior wound small appears healed, nontender Neurologic: awake, alert, speech little slowed,answers some questions correctly, moves extremities Results & Data Results & Data Vital Signs (Past 12 Hours) Vital Signs Temp Pulse Pulse Resp BP Pulse Ox O2 Del Method 11/04/24 15:07 77 11/04/24 15:05 36.6 C 69 16 125/78 95 Room Air 11/04/24 11:44 36.5 C 71 14 121/75 94 Room Air 11/04/24 07:43 36.6 C 82 16 148/81 H 95 Room Air 11/04/24 07:33 78 Laboratory Results 11/04/24 11/04/24 11/03/24 Range/Units 09:38 06:22 20:10 WBC 4.28 L (4.8-10.8) K/ul RBC 3.98 L (4.70-6.10) M/uL Hgb 13.9 L (14.0-18.0) g/dl Hct 38.6 L (42.0-52.0) % MCV 97.0 (80.0-100.0) fL MCH 34.9 H (25.0-34.0) pg MCHC 36.0 (32.0-36.0) g/dL RDW Std Deviation 51.8 H (36.4-46.3) fL RDW Coeff of Fabiola 14.3 (11.5-14.5) % Plt Count 35 L (130-400) K/uL MPV 12.9 H (9.4-12.4) fL Immature Gran % (Auto) 0.2 % Neut % (Auto) 52.8 % Lymph % (Auto) 25.7 % Shannon % (Auto) 15.9 % Eos % (Auto) 4.7 % Baso % (Auto) 0.7 % Neut # (Auto) 2.26 (1.40-6.50) K/uL Lymph # (Auto) 1.10 L (1.20-3.40) K/uL Shannon # (Auto) 0.68 H (0.11-0.59) K/uL Eos # (Auto) 0.20 (0.00-0.50) K/uL Baso # (Auto) 0.03 (0.00-0.20) K/uL Immature Gran # (Auto) 0.01 (0.01-0.20) K/uL PT 13.7 H (9.0-12.0) Seconds INR 1.3 H (0.9-1.1) Sodium 140 (136-145) mmol/L Potassium 4.1 (3.5-5.1) mmol/L Chloride 112 H (98-107) mmol/L Carbon Dioxide 23 (21-32) mmol/L Anion Gap 5 (3-11) BUN 18 (6-23) mg/dl Creatinine 1.04 (0.6-1.4) mg/dl Est Cr Clr Drug Dosing 86.8 ml/min eGFR 82.20 BUN/Creatinine Ratio 17.3 (10-20) Glucose 102 H (70-99(Fasting)) mg/dl Calcium 8.4 L (8.6-10.3) mg/dl Total Bilirubin 2.6 H (0.2-1.0) mg/dl Direct Bilirubin 0.6 H (0-0.2) mg/dl AST 42 H (13-39) U/L ALT 28 (7-52) U/L Alkaline Phosphatase 126 H (34-104) U/L Troponin I High Sens 6.3 (0-20) pg/ml Total Protein 5.6 L (6.0-8.3) gm/dl Albumin 3.2 L (3.4-5.0) gm/dl Tumor Marker AFP Pending Medications Administered Current Inpatient Medications Albuterol (Albuterol Hfa 8 Gm Inhaler) 2 puffs INH Q4H PRN PRN Reason: Shortness Of Breath Stop: 12/03/24 18:37 Atorvastatin Calcium (Atorvastatin 20 Mg Tab) 20 mg PO QAM ANNMARIE Stop: 12/04/24 08:59 Last Admin: 11/04/24 08:15 Dose: 20 mg Clonidine HCl (Clonidine Hcl 0.1 Mg Tab) 0.1 mg PO BID [facility] Stop: 12/03/24 20:59 Last Admin: 11/04/24 08:15 Dose: 0.1 mg Duloxetine HCl (Duloxetine Hcl 30 Mg Cap) 30 mg PO QAM [facility] Stop: 12/04/24 08:59 Last Admin: 11/04/24 08:16 Dose: 30 mg Ferrous Sulfate (Ferrous Sulfate 325 Mg Tab) 325 mg PO QAM [facility] Stop: 12/04/24 08:59 Last Admin: 11/04/24 08:16 Dose: 325 mg Lactulose (Lactulose Syrup 20 Gm/30 Ml Udc) 30 gm PO QID [facility] Stop: 12/03/24 18:44 Last Admin: 11/04/24 12:20 Dose: 30 gm Lidocaine (Lidocaine 5% 1 Patch) 1 patch TD QAM [facility] Stop: 12/03/24 15:44 Last Admin: 11/04/24 08:57 Dose: Not Given Magnesium Oxide (Magnesium Oxide 400 Mg Tab) 400 mg PO BID [facility] Stop: 12/03/24 20:59 Last Admin: 11/04/24 08:15 Dose: 400 mg Melatonin (Melatonin 3 Mg Tab) 6 mg PO HS PRN PRN Reason: Sleep Stop: 12/03/24 21:02 Last Admin: 11/03/24 21:14 Dose: 6 mg Miscellaneous (Remove Lidoderm Patch) 1 each N/A DAILY@2100 [facility] Stop: 12/03/24 20:59 Last Admin: 11/03/24 20:56 Dose: 1 each Pantoprazole Sodium (Pantoprazole 40 Mg Tab) 40 mg PO BID [facility] Stop: 12/03/24 20:59 Last Admin: 11/04/24 08:15 Dose: 40 mg Rifaximin (Rifaximin 550 Mg Tablet) 550 mg PO BID [facility] Stop: 12/03/24 20:59 Last Admin: 11/04/24 08:57 Dose: 550 mg (2) Chest pain Chest pain type: unspecified Qualified Code(s): R07.9 - Chest pain, unspecified (3) Alcoholic cirrhosis Ascites presence: unspecified Qualified Code(s): K70.30 - Alcoholic cirrhosis of liver without ascites (5) GERD (gastroesophageal reflux disease) Esophagitis presence: esophagitis presence not specified Qualified Code(s): K21.9 - Gastro-esophageal reflux disease without esophagitis (6) Depression Depression Type: unspecified Qualified Code(s): F32.A - Depression, unspecified (7) Hypertension Hypertension type: unspecified Qualified Code(s): I10 - Essential (primary) hypertension (8) Hyperlipidemia Hyperlipidemia type: unspecified Qualified Code(s): E78.5 - Hyperlipidemia, unspecified
[2024-11-04 19:45] VITALS: RESP 18
[2024-11-05 06:09] LABS: Hematocrit (blood only) 40.5 % (42.0-52.0); Hemoglobin 13.8 g/dl (14.0-18.0); Mean Corpuscular Hemoglobin 33.8 pg (25.0-34.0); Mean Corpuscular Volume 99.3 fL (80.0-100.0); Platelet Count 30 K/uL (130-400); RDW Standard Deviation 53.3 fL (36.4-46.3); Red Blood Count 4.08 M/uL (4.70-6.10); White Blood Count 3.68 K/ul (4.8-10.8)
[2024-11-05 06:41] LABS: Anion Gap 4.0 (3-11); Calcium 8.6 mg/dl (8.6-10.3); Carbon Dioxide 22.0 mmol/L (21-32); Chloride 114.0 mmol/L (98-107); Magnesium 2.0 mg/dl (1.7-2.4); Potassium 4.2 mmol/L (3.5-5.1); Sodium 140.0 mmol/L (136-145)
[2024-11-05 06:47] LABS: Blood Urea Nitrogen 20.0 mg/dl (6-23); Creatinine Clr Calc Pharmacy 100.6 ml/min; Glucose 108.0 mg/dl (70-99(Fasting))
[2024-11-05 08:14] VITALS: O2SAT 95
--- NOTE | 2024-11-05 11:05 | Gastroenterology Progress Note ---
Date of Service November 05, 2024 Assessment & Plan (1) Acute hepatic encephalopathy: (2) Hyperammonemia: Plan - continue with lactulose 30g QID. - continue with xifaxan 550mg bid. - He can titrate dosage of lactulose down to ensure 2-3 bowel movements per day, but we discussed not just outright stopping it. - stressed the importance of medication compliance. - he should follow with his primary GI team at discharge. recommend US of liver 02/2025. Admission and Anticipated Discharge Date Admission Date: November 03, 2024 Supervising Physician Co-Signing Physician Notes I personally saw and examined the patient. I have reviewed the chart and agree with the documentation provided by the WHARFMASTER including discussion about the asses sment, treatment and plan. Briefly, much improvement mentation. Not concerned about venous ammonia as delaying it before running it for an hour can artificially increase it. He has no asterixis and looks good. Outpatient follow-up with gastroenterology. Continue lactulose and if possible Xifaxan. Oral zinc 1 tab daily Subjective Patient is feeling much better from a GI standpoint. more alert. oriented x 4. no GI complaints currently. AFP pending. Review of Systems Review of Systems: All systems reviewed & are unremarkable except as noted in HPI & below Physical Exam Constitutional: WD/WN, vitals as above Respiratory: normal respiratory effort, lungs clear to auscultation Cardiovascular: Rate/Rhythm: regular rate and regular rhythm Gastrointestinal (Abdomen): normal bowel sounds, soft, nontender, no hepatosplenomegaly Psychiatric: Orientation: alert and oriented x 3 Affect: euthymic affect Results & Data Results & Data Vital Signs (Past 12 Hours) Vital Signs Temp Pulse Pulse Resp BP Pulse Ox O2 Del Method 11/05/24 08:14 97.7 F 72 18 148/87 H 95 Room Air 11/05/24 07:17 65 11/05/24 02:47 98.1 F 67 18 144/79 H 96 Room Air Coding Level of Care Code 49077 SUB INP/OBS CARE 04/27MIN Diagnoses Acute hepatic encephalopathy K76.82 Hyperammonemia E72.20
[2024-11-05 11:19] VITALS: BP 130/72; TEMP 98.4
--- NOTE | 2024-11-05 13:32 | Discharge Summary ---
Date of Service November 05, 2024 Admission HPI Per Admitting Provider This is a 59 y/o male with hx of alcoholic cirrhosis, recurrent hepatic encephalopathy, thrombocytopenia, hx esophageal varices without bleeding, prior MN, hx TIA, HTN, GERD, depression, avascular necrosis of left hip, anemia of chronic disease and other history as outlined below who presents to the ED today with left chest pain, confusion, recurrent falls. Pt's fiance is at bedside and assists with the history as pt has difficulty recalling much of the last several days. He has reportedly had progressive confusion over the last 1-2 weeks, even with taking lactulose 4x/day as prescribed. His fiance reports that he will often forget what he's doing, where he puts things, to the point that she took off work for the last week because she didn't feel safe leaving him alone at home. He has had some nausea with the lactulose and has vomiting shortly after taking it a few times in the last week or two. He has had multiple falls at home, which pt reports is due to loss of balance - denies syncope or lightheade dness. His fiance reports that he stumbles very often at home but does not always fall. He was admitted in August of this year after a fall off a ladder with resultant left rib fractures and RLE abrasion. He reports ongoing issues with the wound and is following with the wound clinic [facility]. He reports that the area is still very tender to touch and intermittently swollen. He has complete courses of cephalexin and Bactrim for this but continues to have issues. He had an outpatient ultrasound for possible fluid collection last week and was scheduled to f/u with wound care to discuss the results this week. He denies fevers, chills. He notes intermittent left sided chest pain in the area of prior rib fractures. He has also noted increase ERVIN, improves with rest. Intermittent issues with LE edema. He feels like his abdominal distention has progressed over the last year but is unsure if it is worse now than it was a few weeks ago. He was supposed to have an appointment with hepatology on but reports that he didn't remember it so he missed the appointment. Admission Exam Per Admitting Provider General: awake, alert, NAD HEENT: trace scleral icterus Neck: supple, trachea midline Heart: RRR Lungs: CTA bilaterally, no W/R/R Abdomen: softly distended, mild diffuse tenderness, +BS Extremities: trace LE edema, tender over RLE at site of prior wound, mildly swollen Neurologic: speech slowed, Ox3 but difficulty with recollection of recent events, +asterixis Principal Diagnosis Hepatic encephalopathy Discharge Exam General: awake, alert, NAD HEENT: NC/AT Neck: supple Heart: RRR Lungs: CTA bilaterally, no W/R/R Abdomen: soft, nontender, +BS, obese Extremities: trace LE edema, RLE modi- prior wound small appears healed, nontender Neurologic: awake, alert, answers questions correctly/ appropriately, moves extremities Discharge Data Allergies Allergy/AdvReac Type Severity Reaction Status Date / Time bee venom protein (honey bee) Allergy Severe Anaphylaxis--CARRIES Verified 10/28/24 10:25 AN EPIPEN Consultations 11/03/24 14:36 ED Decision to Admit Stat 11/03/24 18:38 Consult Gastroenterology Routine Ordered Studies 11/03/24 12:54 CT cervical spine wo con Stat FINDINGS: Skeletal structures: The skeletal structures are well mineralized. There is no evidence of fracture or subluxation involving the cervical spine. Vertebral body height and alignment are maintained. The odontoid process and lateral masses are intact. There is partial bony fusion of the posterior elements at C2 and C3. The atlantoaxial articulation is preserved noting productive degenerative change. The spinous processes appear intact. There is minimal facet arthropathy in the cervical spine. Intervertebral discs: There is mild disc space narrowing at C5-C6. The remaining disc spaces appear maintained. Central canal: Widely patent. Soft tissues: The prevertebral and paraspinous soft tissues are within normal limits. There is atherosclerotic calcification of the carotid bulbs. Calvarium: The visualized calvarium at the skull base appears intact. Brain parenchyma: Partially visualized brain parenchyma at the skull base is within normal limits. Sinuses and mastoids: The visualized paranasal sinuses are clear. There is trace left mastoid effusion. The right mastoid air cells are well pneumatized. Lung apices: Clear as visualized. IMPRESSION: There is no evidence of cervical spine fracture or subluxation. CT head/brain wo con Stat FINDINGS: Brain parenchyma: There is minimal microangiopathic change. There is no hemorrhage, mass effect, or evidence of acute territorial ischemia by CT criteria. Nogueira-white matter differentiation is preserved. No extra-axial fluid collection is seen. Ventricles, sulci, cisterns: Normal in configuration. Intracranial vasculature: There is atherosclerotic calcification of the cavernous carotid arteries. Calvarium: Unremarkable. Sinuses and mastoids: The visualized paranasal sinuses are clear. There is trace left mastoid effusion. The right mastoid air cells are well pneumatized. Orbits: The bony orbits are grossly intact. There are bilateral ocular lens implants. IMPRESSION: There is no hemorrhage, mass effect, or evidence of acute territorial ischemia by CT criteria. 11/03/24 15:34 US abdomen ltd ascites Stat FINDINGS: Limited ultrasound survey of the abdomen without evidence for significant ascites. Fluid-filled peristalsing loops of bowel are noted. IMPRESSION: No evidence for significant ascites. Fluid-filled peristalsing loops of bowel are identified. Hospital Course (1) Acute hepatic encephalopathy: (2) Chest pain: (3) Alcoholic cirrhosis: (4) Thrombocytopenia: (5) GERD (gastroesophageal reflux disease): (6) Depression: (7) Hypertension: (8) Hyperlipidemia: Plan This is a 59 y/o male with hx of alcoholic cirrhosis, recurrent hepatic encephalopathy, thrombocytopenia, hx esophageal varices without bleeding, prior MN, hx TIA, HTN, GERD, depression, avascular necrosis of left hip, hx ARGELIA/anemia of chronic disease and other history as outlined below who presents to the ED today with left chest pain, confusion, recurrent falls. Work-up in the ED revealed a negative troponin, negative chest x-ray. EKG reviewed. Labs significant for ammonia of 164 (in August it was 95), elevated total bilirubin/AST/alk phos around baseline, INR 1.2, platelets 37, H&H normal at 15.6/44.7. Calculated MELD on admission 12. #Hepatic encephalopathy #Recurrent falls/ambulatory dysfunction #Cirrhosis secondary to EtOH #Chronic thrombocytopenia - Admitted to med telemetry - Increased lactulose to 30 g QID, continue Xifaxan - Held gabapentin, trazodone - pt denies taking lorazepam or oxycodone previously prescribed - Held furosemide on admission - Limited US to r/o ascites/SBP -No evidence for significant ascites. Fluid- filled peristalsing loops of bowel are identified. - GI consulted for additional recommendations and discussed with - Fall precautions - PT/OT evaluations - Pt was previously prescribed meloxicam by orthopedics - now discontinued in view of liver disease 11/05/2024 Pt feels overall improved, answers appropriately, no concern per discussion w/ nursing. GI consulted as well and follow ->ordered kaylee- fetoprotein which is still pending. Recommend for the pt to follow up w/ [facility]. #Chest pain - seems most likely MSK related to prior rib fractures - troponin x2 negative - Lidocaine patch to area - pain seems to be improved/resolved now #Hypertension - Continue clonidine #GERD - Chronic, continue pantoprazole #Hyperlipidemia - Chronic, continue statin #Depression - Chronic, continue duloxetine #History ARGELIA/anemia of chronic disease - H&H within normal range on admission, no evidence of active bleeding - Continue daily ferrous sulfate Total Time Total Time Spent Total Time Spent (In Minutes): 40 Discharge Plan Discharge Items Patient Disposition: Home - Self-Care Reason For Visit: HEPATIC ENCEPHALOPATHY Discharge Diagnosis: Hepatic encephalopathy Condition on Discharge: Fair Activity: Per Instructions section Non-emergency contact: Primary Care Provider and 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 You should be seen by primary care doctor within 1 week. Make sure to take all your medications, especially lactulose. You can titrate down to have 2-3 bowel movements a day but you should not stop the medication. Pending Studies at Discharge: Yes Studies:: final results of blood culture, kaylee fetoprotein Stand-Alone Forms: My [facility] Travel, Smoking Cessation Medications and DC Order Prescriptions: Continued furosemide 40 mg tablet 40 mg PO QAM atorvastatin 20 mg tablet 20 mg PO QAM magnesium oxide 400 mg (241.3 mg magnesium) tablet 400 mg PO BID gabapentin 100 mg capsule 100 mg PO TID duloxetine 30 mg capsule,delayed release(DR/EC) 30 mg PO QAM lactulose 10 gram/15 mL solution 30 ml PO QID Xifaxan 550 mg tablet 550 mg PO BID pantoprazole [Protonix] 40 mg Tablet,Delayed Release (Dr/Ec) 40 mg PO BID ferrous sulfate 325 mg (65 mg iron) Tablet 325 mg PO QAM zinc acetate 50 mg (zinc) Capsule 50 mg PO BID albuterol sulfate 90 mcg/actuation HFA aerosol inhaler 2 inh INHALATION Q4H PRN (Reason: Shortness Of Breath) clonidine HCl 0.1 mg tablet 0.1 mg PO BID vitamin A 3,000 mcg (10,000 unit) Capsule 6,000 mcg PO DAILY trazodone 50 mg tablet 50 - 100 mg PO HS acetaminophen [Tylenol Extra Strength] 500 mg tablet 1,000 mg PO Q8H PRN (Reason: fever or pain) Qty: 100 0RF Discontinued meloxicam 15 mg tablet 15 mg PO DAILY Discharge Orders: Discharge Order (Routine); Ordered 11/05/24 Ordered By: Russ Carson Admission Data Admit Date/Time: 11/03/24 15:34 Attending Provider: Russ Carson Admit Provider: Henry Faria Primary Care Provider: Toby Paz Other Providers: Henry Faria; Tom Skelton I
[2024-11-05 14:28] VITALS: PULSE 75
== END 2024-11-05 14:30 | disposition home or self-care (01) | DRG 443 ==
LOC: ED 12:36 → 2N 15:34 → SUATTDRO 15:34 → 2N 18:09

== ENCOUNTER 2024-12-11 13:14 | Inpatient (IN) ==
--- NOTE | 2024-12-11 14:07 | Emergency Department Note ---
History of Present Illness General Chief complaint: Altered Mental Status Stated complaint: TROUBLE REMEMBERING AND TALKING Time Seen by Provider: 12/11/24 13:35 Source: patient and family Mode of arrival: ambulatory Limitations: altered mental status History of Present Illness Maximum Pain Intensity: 6 Patient is a 59-year-old male with history of multiple comorbidities including alcoholic liver cirrhosis who presents for 2 days of worsening confusion. History is mostly obtained from . She states she has been wandering around the house aimlessly and does not know where he is at. He also had trouble buttoning his pants due to distension of his abdomen. No fall or head injury reported. No recent fevers, chills, chest pain, cough, nausea, vomiting, abdominal pain. Patient did receive 3 doses of lactulose today and has been compliant with his medication according to . No recent ETOH use. No drug use reported. History is limited from patient due to AMS. Home Medications Medication Instructions Recorded Confirmed Type atorvastatin 20 mg tablet 20 mg PO QAM 04/20/24 12/11/24 History duloxetine 30 mg capsule,delayed 30 mg PO QAM 04/20/24 12/11/24 History release ferrous sulfate 325 mg (65 mg 325 mg PO QAM 04/20/24 12/11/24 History iron) tablet furosemide 40 mg tablet 40 mg PO QAM 04/20/24 12/11/24 History gabapentin 100 mg capsule 100 mg PO TID 04/20/24 12/11/24 History lactulose 10 gram/15 mL oral 45 ml PO QID 04/20/24 12/11/24 History solution magnesium oxide 400 mg (241.3 mg 400 mg PO BID 04/20/24 12/11/24 History magnesium) tablet pantoprazole 40 mg tablet,delayed 40 mg PO BID 04/20/24 12/11/24 History release (Protonix) rifaximin 550 mg tablet (Xifaxan) 550 mg PO BID 04/20/24 12/11/24 History clonidine HCl 0.1 mg tablet 0.1 mg PO BID 08/18/24 12/11/24 History trazodone 50 mg tablet 50 - 100 mg PO HS 08/18/24 12/11/24 History vitamin A 3,000 mcg (10,000 unit) 6,000 mcg PO DAILY 08/18/24 12/11/24 History capsule acetaminophen 500 mg tablet 1,000 mg (2 x 500 mg) PO Q8H PRN 08/19/24 12/11/24 Rx (Tylenol Extra Strength) fever or pain #100 tabs albuterol sulfate 90 mcg/actuation 2 inh inhalation Q4H PRN Shortness 11/03/24 12/11/24 History aerosol inhaler Of Breath zinc acetate 50 mg (zinc) capsule 50 mg PO BID 11/03/24 12/11/24 History Allergies Allergy/AdvReac Type Severity Reaction Status Date / Time bee venom protein (honey bee) Allergy Severe Anaphylaxis--CARRIES Verified 10/28/24 10:25 AN EPIPEN Past Med/Surg History Problem List (Updated 12/12/24 @ 06:16 by Nathan Bhatt MD) Thrombocytopenia (Acute) Chest pain (Acute) Acute hepatic encephalopathy (Acute) Traumatic open wound of right lower leg with delayed healing (Acute) Hyperammonemia (Acute) Medical History Migraine Hx SBO Alcoholic cirrhosis Dilated aortic root Insomnia H/O angioedema ongoing, follows with allergy Avascular necrosis of femur GERD (gastroesophageal reflux disease) Depression Hepatic encephalopathy Basilar artery aneurysm Left rib fracture History of ascites Hypertension Hyperlipidemia Surgical History History of total left hip replacement History of esophagogastroduodenoscopy (EGD) History of colonoscopy History of bowel resection 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 History of appendectomy History of tooth extraction Family History Father Hearing loss Hypertension Stroke Heart disease Other No pertinent family history in first degree relatives Denies family history of No family history of adverse response to anesthesia No family history of bleeding disorder Allergies Asthma Social History Smoking Status: Never smoker Tobacco Type: Cigarettes Cigarettes Per Day: 1; Second Hand Exposure: No; Do You Dip or Chew Tobacco: No; Hx Alcohol Use: No Hx Substance Use: No Preferred Language: Brazilian Communication Ability: Effective Roll Out Manager Required: No Beliefs That Will Affect Care: None marital status: Life Partner marital status details: fiance Current Living Situation: Significant Other Current Living Situation Comment: LIVES WITH GIRLFRIEND current occupational status: 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 Physical Exam Vital Signs Vital Signs - 24 hr 12/11/24 13:15 12/11/24 13:33 12/11/24 15:57 Temperature 37 C Temperature Source Oral Pulse Rate 87 87 Pulse Rate [Apical] Pulse Rate from SpO2 Sensor 66 Respiratory Rate 18 Respiratory Effort / Characteristics Non-Labored Spontaneous Respiratory Depth Normal Respiratory Pattern Regular Blood Pressure 139/85 Blood Pressure [Right Arm] Blood Pressure Mean 103 Blood Pressure Mean [Right Arm] Blood Pressure Position [Right Arm] Pulse Oximetry 96 97 Oxygen Delivery Method Room Air Sepsis Recent Fever Within 48 Hours No Sepsis New/Unexplained Change in Mental Status Yes Sepsis Action Taken by Nursing No Action Required 12/11/24 18:07 Temperature Temperature Source Pulse Rate Pulse Rate [Apical] 80 Pulse Rate from SpO2 Sensor Respiratory Rate 18 Respiratory Effort / Characteristics Respiratory Depth Respiratory Pattern Blood Pressure Blood Pressure [Right Arm] 136/67 Blood Pressure Mean Blood Pressure Mean [Right Arm] 90 Blood Pressure Position [Right Arm] Semi-fowlers Pulse Oximetry 96 Oxygen Delivery Method Room Air Sepsis Recent Fever Within 48 Hours Sepsis New/Unexplained Change in Mental Status Sepsis Action Taken by Nursing See below. Constitutional WD/WN, vitals as above Eyes PERRL, conjunctivae normal, anicteric sclerae Respiratory normal respiratory effort, lungs clear to auscultation Cardiovascular RRR, no murmur, no edema Gastrointestinal (Abdomen) Inspection/Auscultation: + abdomen distended Percussion/Palpation: + abdomen tender, abdomen soft and + hepatomegaly; no guarding, abdomen not rigid and no abdominal mass Musculoskeletal no cyanosis or clubbing, extremities motor strength 5/5 Neurologic AAO x 1. He is following commands. 5/5 strength in the upper and lower extremities b/l. positive asterixis. Exam limited by acute encephalopathy. Course Administered Medications Clonidine HCl (Clonidine Hcl 0.1 Mg Tab) 0.1 mg PO BID ANNMARIE Stop: 01/10/25 20:59 Last Admin: 12/12/24 01:19 Dose: 0.1 mg Documented By: DN Clotrimazole (Clotrimazole 1% Cr 15 Gm Tube) 1 appln EXT BID ANNMARIE Stop: 01/10/25 22:14 Last Admin: 12/12/24 01:20 Dose: 1 appln Documented By: PAOLO Lactulose (Lactulose Syrup 20 Gm/30 Ml Udc) 30 gm PO QID ANNMARIE Stop: 01/11/25 06:59 Last Admin: 12/12/24 06:08 Dose: 30 gm Documented By: PAOLO Magnesium Oxide (Magnesium Oxide 400 Mg Tab) 400 mg PO BID ANNMARIE Stop: 01/10/25 20:59 Last Admin: 12/12/24 01:19 Dose: 400 mg Documented By: PAOLO Nystatin (Nystatin Powder 15gm Btl) 1 appln EXT BID ANNMARIE Stop: 01/10/25 22:44 Last Admin: 12/12/24 01:20 Dose: 1 appln Documented By: PAOLO Pantoprazole Sodium (Pantoprazole 40 Mg Tab) 40 mg PO BID ANNMARIE Stop: 01/10/25 20:59 Last Admin: 12/12/24 01:19 Dose: 40 mg Documented By: PAOLO Rifaximin (Rifaximin 550 Mg Tablet) 550 mg PO BID ANNMARIE Stop: 01/10/25 20:59 Last Admin: 12/12/24 01:19 Dose: 550 mg Documented By: PAOLO Zinc Sulfate (Zinc Sulfate 220 Mg Capsule) 220 mg PO BID ANNMARIE Stop: 01/10/25 20:59 Last Admin: 12/12/24 01:20 Dose: 220 mg Documented By: PAOLO Discontinued Medications Ioversol (Optiray 320 100ml) 90 ml IV ONCE ONE Stop: 12/11/24 15:49 Last Admin: 12/11/24 15:49 Dose: 90 ml Documented By: DELANEY Lactulose (Lactulose Syrup 20 Gm/30 Ml Udc) 30 gm PO NOW STA Stop: 12/11/24 16:24 Last Admin: 12/11/24 16:51 Dose: 30 gm Documented By: PAUL Medical Decision Making Differential Diagnosis hepatic encephalopathy, intracranial abnormality, infection, metabolic encephalopathy, toxidrome Medical Records Attestation: I reviewed the patient's medical records. Home Medications Current Medication List: was personally reviewed by me Laboratory Data Attestation: I reviewed the patient's lab results. 12/11/24 14:00 12/11/24 14:00 Lab Results 12/11/24 12/11/24 12/11/24 Range/Units 13:22 14:00 14:49 WBC 8.39 (4.8-10.8) K/ul RBC 4.78 (4.70-6.10) M/uL Hgb 15.6 (14.0-18.0) g/dl Hct 46.2 (42.0-52.0) % MCV 96.7 (80.0-100.0) fL MCH 32.6 (25.0-34.0) pg MCHC 33.8 (32.0-36.0) g/dL RDW Std Deviation 52.3 H (36.4-46.3) fL RDW Coeff of Fabiola 14.6 H (11.5-14.5) % Plt Count 50 L (130-400) K/uL MPV 13.0 H (9.4-12.4) fL Immature Gran % (Auto) 0.4 % Neut % (Auto) 64.6 % Lymph % (Auto) 17.8 % Granville % (Auto) 12.8 % Eos % (Auto) 3.9 % Baso % (Auto) 0.5 % Neut # (Auto) 5.43 (1.40-6.50) K/uL Lymph # (Auto) 1.49 (1.20-3.40) K/uL Granville # (Auto) 1.07 H (0.11-0.59) K/uL Eos # (Auto) 0.33 (0.00-0.50) K/uL Baso # (Auto) 0.04 (0.00-0.20) K/uL Immature Gran # (Auto) 0.03 (0.01-0.20) K/uL PT 14.0 H (9.0-12.0) Seconds INR 1.3 H (0.9-1.1) APTT 31 (21-31) Seconds PTT Ratio 1.2 Sodium 140 (136-145) mmol/L Potassium 4.0 (3.5-5.1) mmol/L Chloride 115 H (98-107) mmol/L Carbon Dioxide 17 L (21-32) mmol/L Anion Gap 8 (3-11) BUN 19 (6-23) mg/dl Creatinine 0.99 (0.6-1.4) mg/dl Est Cr Clr Drug Dosing 91.7 ml/min eGFR 87.21 BUN/Creatinine Ratio 19.2 (10-20) Glucose 145 H (70-99(Fasting)) mg/dl POC Glucose 131 H (70-99) mg/dl Lactate 2.0 (0.4-2.0) mmol/L Calcium 8.9 (8.6-10.3) mg/dl Magnesium 2.0 (1.7-2.4) mg/dl Total Bilirubin 3.9 H (0.2-1.0) mg/dl AST 71 H (13-39) U/L ALT 35 (7-52) U/L Alkaline Phosphatase 131 H (34-104) U/L Ammonia 64.0 (18-72) umol/L Troponin I High Sens 8.9 (0-20) pg/ml Total Protein 6.7 (6.0-8.3) gm/dl Albumin 3.6 (3.4-5.0) gm/dl Globulin 3.1 (2.5-4.0) gm/dl Albumin/Globulin Ratio 1.2 (0.9-2) Ethyl Alcohol mg/dL (<10.0) mg/dl 12/11/24 Range/Units 16:55 WBC (4.8-10.8) K/ul RBC (4.70-6.10) M/uL Hgb (14.0-18.0) g/dl Hct (42.0-52.0) % MCV (80.0-100.0) fL MCH (25.0-34.0) pg MCHC (32.0-36.0) g/dL RDW Std Deviation (36.4-46.3) fL RDW Coeff of Fabiola (11.5-14.5) % Plt Count (130-400) K/uL MPV (9.4-12.4) fL Immature Gran % (Auto) % Neut % (Auto) % Lymph % (Auto) % Granville % (Auto) % Eos % (Auto) % Baso % (Auto) % Neut # (Auto) (1.40-6.50) K/uL Lymph # (Auto) (1.20-3.40) K/uL Granville # (Auto) (0.11-0.59) K/uL Eos # (Auto) (0.00-0.50) K/uL Baso # (Auto) (0.00-0.20) K/uL Immature Gran # (Auto) (0.01-0.20) K/uL PT (9.0-12.0) Seconds INR (0.9-1.1) APTT (21-31) Seconds PTT Ratio Sodium (136-145) mmol/L Potassium (3.5-5.1) mmol/L Chloride (98-107) mmol/L Carbon Dioxide (21-32) mmol/L Anion Gap (3-11) BUN (6-23) mg/dl Creatinine (0.6-1.4) mg/dl Est Cr Clr Drug Dosing ml/min eGFR BUN/Creatinine Ratio (10-20) Glucose (70-99(Fasting)) mg/dl POC Glucose (70-99) mg/dl Lactate (0.4-2.0) mmol/L Calcium (8.6-10.3) mg/dl Magnesium (1.7-2.4) mg/dl Total Bilirubin (0.2-1.0) mg/dl AST (13-39) U/L ALT (7-52) U/L Alkaline Phosphatase (34-104) U/L Ammonia (18-72) umol/L Troponin I High Sens (0-20) pg/ml Total Protein (6.0-8.3) gm/dl Albumin (3.4-5.0) gm/dl Globulin (2.5-4.0) gm/dl Albumin/Globulin Ratio (0.9-2) Ethyl Alcohol mg/dL < 10.0 (<10.0) mg/dl Imaging Data Radiologist's Impression: Chest X-Ray 12/11/24 14:00 XR chest 1V portable CLINICAL HISTORY: neuro deficit, acute stroke suspected COMPARISON STUDY: 11/03/2024 FINDINGS: Stable mild cardiomegaly without pulmonary vascular congestion. No consolidation or pleural effusion. No pneumothorax. IMPRESSION: No acute findings. ACT 112: Negative or not required by law. Electronically signed by: Milton Torres M.D. 12/11/2024 2:[address] 12/11/24 14:00 Clinical History: Altered mental status. Technique: Axial computed tomography images were obtained of the brain from the vertex to the skull base without intravenous contrast. Findings: There is no sign of intracranial hemorrhage. There is normal summers-white matter differentiation with no sign of acute or old infarction. No midline shift or other form of herniation is identified. There is no hydrocephalus. No obvious mass lesion is seen on this noncontrast examination. The visualized portions of the orbits and paranasal sinuses appear unremarkable. The mastoid air cells appear clear Impression: Unremarkable noncontrast CT of the brain Electronically signed by Ryder Forrester 12-11-2024 4:22 PM [facility] Narrative Patient is a 59-year-old male who has a history of liver cirrhosis presenting with 2 days of increased confusion. My examination patient is able to follow commands though there is evidence of altered mental status consistent with global encephalopathy. No focal neurologic deficits. No reported head trauma. Patient is taking lactulose at home per his . Lab work is obtained. No elevated white blood cell count or active source of infection noted. CMP reviewed. Stable elevation in liver enzymes and bilirubin noted. Ammonia level here today is 64 though not significant the elevated clinical exam is consistent with hepatic encephalopathy. Oral lactulose was ordered. CT of the head was reviewed and nonconcerning. CT of the abdomen and pelvis ordered and negative for acute findings. No evidence of ascites noted on CT or concern for SBP. Urine studies are pending. Will admit to hospitalist service for further management of hepatic encephalopathy. Impression & Plan Hyperammonemia, Traumatic open wound of right lower leg with delayed healing Discharge Plan Visit Data Chief Complaint: Altered Mental Status Stated Complaint: TROUBLE REMEMBERING AND TALKING ED Provider: Nathan Bhatt Discharge Problem: Hyperammonemia, Traumatic open wound of right lower leg with delayed healing Patient Disposition: Admitted As Inpatient Condition: Good Discharge Instructions Interventions: ED Discharge Assessment Last Done: 12/11/24 21:27
[2024-12-11 14:31] LABS: Hematocrit (blood only) 46.2 % (42.0-52.0); Hemoglobin 15.6 g/dl (14.0-18.0); Immature Granulocytes # (auto) 0.03 K/uL (0.01-0.20); Immature Granulocytes % (auto) 0.4 %; Mean Corpuscular Hemoglobin 32.6 pg (25.0-34.0); Mean Corpuscular Volume 96.7 fL (80.0-100.0); Platelet Count 50 K/uL (130-400); RDW Standard Deviation 52.3 fL (36.4-46.3); Red Blood Count 4.78 M/uL (4.70-6.10); White Blood Count 8.39 K/ul (4.8-10.8)
--- NOTE | 2024-12-11 14:41 | XRay Report ---
XR chest 1V portable CLINICAL HISTORY: neuro deficit, acute stroke suspected COMPARISON STUDY: 11/03/2024 FINDINGS: Stable mild cardiomegaly without pulmonary vascular congestion. No consolidation or pleural effusion. No pneumothorax. IMPRESSION: No acute findings. ACT 112: Negative or not required by law. Electronically signed by: Milton Torres M.D. 12/11/2024 2:40 PM
[2024-12-11 14:50] LABS: Alanine Aminotransferase 35.0 U/L (7-52); Albumin Globulin Ratio 1.2 (0.9-2); Alkaline Phosphatase 131.0 U/L (34-104); Anion Gap 8.0 (3-11); Bilirubin,Total 3.9 mg/dl (0.2-1.0); Blood Urea Nitrogen 19.0 mg/dl (6-23); Calcium 8.9 mg/dl (8.6-10.3); Carbon Dioxide 17.0 mmol/L (21-32); Chloride 115.0 mmol/L (98-107); Creatinine Clr Calc Pharmacy 91.7 ml/min; Globulin 3.1 gm/dl (2.5-4.0); Glucose 145.0 mg/dl (70-99(Fasting)); Magnesium 2.0 mg/dl (1.7-2.4); Potassium 4.0 mmol/L (3.5-5.1); Sodium 140.0 mmol/L (136-145); Total Protein 6.7 gm/dl (6.0-8.3)
[2024-12-11 14:54] LABS: INR 1.3 (0.9-1.1); Partial Thromboplastin Time 31 Seconds (21-31); Prothrombin Time 14.0 Seconds (9.0-12.0)
--- NOTE | 2024-12-11 15:42 | Electrocardiogram Report ---
Test Reason : Blood Pressure : */* mmHG Vent. Rate : 87 BPM Atrial Rate : 87 BPM P-R Int : 154 ms QRS Dur : 76 ms QT Int : 390 ms P-R-T Axes : 20 16 34 degrees QTcB Int : 469 ms Normal sinus rhythm Normal ECG When compared with ECG of 04-Nov-2024 07:55, No significant change was found Confirmed by Zay Scott ([id number]) on 12/11/2024 3:41:58 PM Referred By: REFERRED SELF Confirmed By: Zay Scott
[2024-12-11] MEDS: OPTIRAY 320 100ml IV ONE (15:49)
--- NOTE | 2024-12-11 16:24 | CT Scan Report ---
Clinical History: Altered mental status. Technique: Axial computed tomography images were obtained of the brain from the vertex to the skull base without intravenous contrast. Findings: There is no sign of intracranial hemorrhage. There is normal summers-white matter differentiation with no sign of acute or old infarction. No midline shift or other form of herniation is identified. There is no hydrocephalus. No obvious mass lesion is seen on this noncontrast examination. The visualized portions of the orbits and paranasal sinuses appear unremarkable. The mastoid air cells appear clear Impression: Unremarkable noncontrast CT of the brain Electronically signed by Ryder Forrester 12-11-2024 4:22 PM
[2024-12-11] MEDS: LACTULOSE SYRUP 20 GM/30 ML UDC PO STA (16:51)
--- NOTE | 2024-12-11 17:12 | CT Scan Report ---
Technique: Axial computed tomography images were obtained of the abdomen and pelvis after the administration of intravenous contrast. Comparison is made to the prior CT dated 08/18/2024 Findings: The liver is shrunken and nodular in contour, consistent with cirrhosis. There are 4 unchanged cyst in the right hepatic lobe, measuring up to 1.2 cm. Liver mass lesion is seen. Prominent abdominal varices are again seen. The main portal vein is diminutive but patent. The gallbladder has been removed. No bile duct dilatation is noted. The spleen is enlarged measuring 15.6 cm. No focal splenic lesion is evident. The pancreas appears normal with no sign of acute or chronic pancreatitis and no mass lesion noted. The pancreatic duct is of normal caliber. The adrenal glands appear unremarkable. No definite renal or proximal ureteral calculi are seen on this contrast-enhanced study. There is no hydronephrosis or perinephric stranding. No renal mass lesion is identified. There is a 9 mm left renal cyst. There is a mild infrarenal abdominal aortic aneurysm, measuring up to 3 cm anteroposterior. No abdominal adenopathy is seen. The stomach appears normal. There is no sign of small bowel obstruction. The colon appears unremarkable. There is no sign of appendicitis. No free intraperitoneal fluid or air is identified. No distal ureteral or bladder calculi are seen. The bladder is decompressed. The iliac arteries are of normal caliber. No pelvic adenopathy is noted. The lungs bases appear clear. There is a left hip arthroplasty. No focal osseous lesion is seen Impression: 1. Unchanged advanced cirrhosis and portal hypertension 2. Unchanged splenic cysts 3. Unchanged splenomegaly 4. Unchanged mild abdominal aortic aneurysm 5. Small left renal cyst Electronically signed by Ryder Forrester 12-11-2024 5:11 PM
--- NOTE | 2024-12-11 18:07 | History & Physical Report ---
Date of Service December 11, 2024 Assessment & Plan (1) Alcoholic cirrhosis: (2) Acute hepatic encephalopathy: (3) Thrombocytopenia: Plan Patient is a 59-year-old male with past medical history significant for HLD, HTN, alcoholic cirrhosis, history of recurrent hospitalizations for hepatic encephalopathy, esophageal varices without bleeding, chronic thrombocytopenia, history of IN, history of TIA, internal hemorrhoids, AAA, GERD with esophagitis, necrosis of bone of left hip, lumbosacral DDD, bilateral age-related nuclear cataracts, peripheral polyneuropathy, ARGELIA and splenomegaly who presented to the ED with his fianceCarmen, due to AMS x 3 days. #Alcoholic cirrhosis #History of recurrent hospitalizations for hepatic encephalopathy Ammonia level WNL Alk phos 131, AST 71, T bili 3.9, ALT WNL S/p 30g lactulose in ED Hold on further lactulose for today given patient has already had 7-8 loose BMs Lactulose dose reportedly increased to 45mL QID (previously 30mL) shortly after last admission CTAP today noting liver mass lesion, not previously seen on prior CTAP done here in August 2024 --> will check total abd US, including liver, for further eval AFP 2.5 from last admission Appreciate routine GI consult for any further recs Prior consideration for patient to have liver transplant however this is no longer being pursued per discussion with his fiance No alcohol use in the past month per his fiance, EtOH level negligible Hold gabapentin and trazodone Continue Lasix Continue rifaximin Continue zinc supplementation (recommend by GI last admission) Fall precautions, PT/OT evaluations #Chronic thrombocytopenia 2/[address] stable currently, continue to monitor Fall precautions #HLD Continue statin #HTN Continue clonidine #Peripheral polyneuropathy Holding gabapentin as per above #Depression Continue Cymbalta #ARGELIA H/H stable Continue Fe supplementation and monitor #GERD Continue PPI DVT Prophylaxis: SCDs/TEDs only in light of chronic thrombocytopenia Disposition: Admit to med/telemetry Patient seen in collaboration with Dr. Marquez. Please see addendum. I spent a total of 55 minutes coordinating, documenting, and providing care for this patient excluding time spent in the performance of separately billed services or time spent by another provider/QHP. This included personally reviewing all current laboratories and imaging studies, medical reconciliation, outpatient chart review and discussion with specialists. This chart was completed in part utilizing Speech Voice Recognition Software. Grammatical errors, random word insertions, pronoun errors, and incomplete sentences are an occasional consequence of this system due to software limitations, ambient noise, and hardware issues. Any formal questions or concerns about the content, text, or information contained within the body of this dictation should be directly addressed to the provider for clarification. History of Present Illness Chief Complaint: AMS Primary Care Provider: Toby Paz MD Patient is a 59-year-old male with past medical history significant for HLD, HTN, alcoholic cirrhosis, history of recurrent hospitalizations for hepatic encephalopathy, esophageal varices without bleeding, chronic thrombocytopenia, history of IN, history of TIA, internal hemorrhoids, AAA, GERD with esophagitis, necrosis of bone of left hip, lumbosacral DDD, bilateral age-related nuclear cataracts, peripheral polyneuropathy, ARGELIA and splenomegaly who presented to the ED with his fianceCarmen, due to AMS x 3 days. Patient mostly oriented to self - unable to identify situation, location and date; only answering yes/no direct questions. Therefore history directly obtained from his fiance at bedside. Additional supplementing information gathered from discussion with ED provider and associated chart review. Previous similar presentation last month with subsequent admission for hepatic encephalopathy, recurrent falls. Coming in today with increased confusion/AMS over the past 3 days. For example, patient is increasingly forgetful and sleepy to the point where his fiance took off work to stay with him today as she did not feel safe leaving him home alone. Had lactulose dose increased from 30mL QID to 45mL QID last admission. Notes patient has been compliant with this up until yesterday when he refused to take it. He did take 2 of his doses today. Bowel movements are extremely loose. Had about 7-8 bowel movements already today, including a few in the ED. Denies any melena or hematochezia. No recent falls or trauma. His fiance reports that he stumbles often at home but this is quite typical for him. Also with increasing abdominal distention over the past few days to the point where his jeans, a pair which he wears frequently, would not button today. Patient has been complaining of some vague abdominal discomfort associated with this. Patient does have a history of chronic abdominal pain due to his history of SBO s/p prior exploratory laparotomy. Mild decline in oral intake over the past 2 days with increased lethargy/sleepiness. There was prior consideration for liver transplantation however his sanchez reports this is no longer being pursued. Reportedly no alcohol use for the past month. Prior to this, evert reports he was drinking "1 or 2 beers here and there but that's it." Allergies Allergy/AdvReac Type Severity Reaction Status Date / Time bee venom protein (honey bee) Allergy Severe Anaphylaxis--CARRIES Verified 10/28/24 10:25 AN EPIPEN Home Medications Medication Instructions Recorded Confirmed Type atorvastatin 20 mg tablet 20 mg PO QAM 04/20/24 12/11/24 History duloxetine 30 mg capsule,delayed 30 mg PO QAM 04/20/24 12/11/24 History release ferrous sulfate 325 mg (65 mg 325 mg PO QAM 04/20/24 12/11/24 History iron) tablet furosemide 40 mg tablet 40 mg PO QAM 04/20/24 12/11/24 History gabapentin 100 mg capsule 100 mg PO TID 04/20/24 12/11/24 History lactulose 10 gram/15 mL oral 45 ml PO QID 04/20/24 12/11/24 History solution magnesium oxide 400 mg (241.3 mg 400 mg PO BID 04/20/24 12/11/24 History magnesium) tablet pantoprazole 40 mg tablet,delayed 40 mg PO BID 04/20/24 12/11/24 History release (Protonix) rifaximin 550 mg tablet (Xifaxan) 550 mg PO BID 04/20/24 12/11/24 History clonidine HCl 0.1 mg tablet 0.1 mg PO BID 08/18/24 12/11/24 History trazodone 50 mg tablet 50 - 100 mg PO HS 08/18/24 12/11/24 History vitamin A 3,000 mcg (10,000 unit) 6,000 mcg PO DAILY 08/18/24 12/11/24 History capsule acetaminophen 500 mg tablet 1,000 mg (2 x 500 mg) PO Q8H PRN 08/19/24 12/11/24 Rx (Tylenol Extra Strength) fever or pain #100 tabs albuterol sulfate 90 mcg/actuation 2 inh inhalation Q4H PRN Shortness 11/03/24 12/11/24 History aerosol inhaler Of Breath zinc acetate 50 mg (zinc) capsule 50 mg PO BID 11/03/24 12/11/24 History Past Med/Surg History Problem List Thrombocytopenia (Acute) Chest pain (Acute) Acute hepatic encephalopathy (Acute) Traumatic open wound of right lower leg with delayed healing (Acute) Hyperammonemia (Acute) Medical History Migraine Hx SBO Alcoholic cirrhosis Dilated aortic root Insomnia H/O angioedema ongoing, follows with allergy Avascular necrosis of femur GERD (gastroesophageal reflux disease) Depression Hepatic encephalopathy Basilar artery aneurysm Left rib fracture History of ascites Hypertension Hyperlipidemia Surgical History History of total left hip replacement History of esophagogastroduodenoscopy (EGD) History of colonoscopy History of bowel resection 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 History of appendectomy History of tooth extraction Family History Father Hearing loss Hypertension Stroke Heart disease Other No pertinent family history in first degree relatives Denies family history of No family history of adverse response to anesthesia No family history of bleeding disorder Allergies Asthma Social History Smoking Status: Current every day smoker Tobacco Type: Cigarettes Cigarettes Per Day: 1; Second Hand Exposure: No; Do You Dip or Chew Tobacco: No; Hx Alcohol Use: Yes Alcohol type: beer Hx Substance Use: No Preferred Language: Belgian Communication Ability: Effective Door Frame Builder Required: No Beliefs That Will Affect Care: None marital status: Life Partner marital status details: fiance Current Living Situation: Significant Other Current Living Situation Comment: LIVES WITH GIRLFRIEND current occupational status: 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 Physical Exam Physical Exam: General/Neuro: M, NAD, laying down in bed, A&O mostly to self but following direct commands/answering direct questions, fianc at bedside HEENT: Normocephalic, atraumatic, somewhat dry mucous membranes Respiratory: Normal respiratory effort, CTAB Cardiovascular: RRR, normal peripheral pulses, trace BLE edema Abdomen/GI: Active bowel sounds, mildly distended abdomen but soft, mild generalized TTP but no guarding Extremities/MSK: No cyanosis or clubbing, extremities motor strength intact, moves all extremities Skin: Erythematous, moist patches in bilateral groin regions which are mildly TTP Results & Data Results & Data Vital Signs (Past 12 Hours) Vital Signs Temp Pulse Resp BP Pulse Ox O2 Del Method 12/11/24 15:57 97 12/11/24 13:33 87 12/11/24 13:15 37 C 87 18 139/85 96 Room Air Laboratory Results Short CBC 12/11/24 Range/Units 14:00 WBC 8.39 (4.8-10.8) K/ul Hgb 15.6 (14.0-18.0) g/dl Hct 46.2 (42.0-52.0) % Plt Count 50 L (130-400) K/uL BMP 12/11/24 14:00 Sodium 140 Potassium 4.0 Chloride 115 H Carbon Dioxide 17 L BUN 19 Creatinine 0.99 Glucose 145 H Calcium 8.9 Liver Function 12/11/24 Range/Units 14:00 Total Bilirubin 3.9 H (0.2-1.0) mg/dl AST 71 H (13-39) U/L ALT 35 (7-52) U/L Alkaline Phosphatase 131 H (34-104) U/L Albumin 3.6 (3.4-5.0) gm/dl Diagnostic Findings Abdomen/Pelvis CT 12/11/24 13:59 Technique: Axial computed tomography images were obtained of the abdomen and pelvis after the administration of intravenous contrast. Comparison is made to the prior CT dated 08/18/2024 Findings: The liver is shrunken and nodular in contour, consistent with cirrhosis. There are 4 unchanged cyst in the right hepatic lobe, measuring up to 1.2 cm. Liver mass lesion is seen. Prominent abdominal varices are again seen. The main portal vein is diminutive but patent. The gallbladder has been removed. No bile duct dilatation is noted. The spleen is enlarged measuring 15.6 cm. No focal splenic lesion is evident. The pancreas appears normal with no sign of acute or chronic pancreatitis and no mass lesion noted. The pancreatic duct is of normal caliber. The adrenal glands appear unremarkable. No definite renal or proximal ureteral calculi are seen on this contrast-enhanced study. There is no hydronephrosis or perinephric stranding. No renal mass lesion is identified. There is a 9 mm left renal cyst. There is a mild infrarenal abdominal aortic aneurysm, measuring up to 3 cm anteroposterior. No abdominal adenopathy is seen. The stomach appears normal. There is no sign of small bowel obstruction. The colon appears unremarkable. There is no sign of appendicitis. No free intraperitoneal fluid or air is identified. No distal ureteral or bladder calculi are seen. The bladder is decompressed. The iliac arteries are of normal caliber. No pelvic adenopathy is noted. The lungs bases appear clear. There is a left hip arthroplasty. No focal osseous lesion is seen Impression: 1. Unchanged advanced cirrhosis and portal hypertension 2. Unchanged splenic cysts 3. Unchanged splenomegaly 4. Unchanged mild abdominal aortic aneurysm 5. Small left renal cyst Electronically signed by Ryder Forrester 12-11-2024 5:11 PM Chest X-Ray 12/11/24 14:00 XR chest 1V portable CLINICAL HISTORY: neuro deficit, acute stroke suspected COMPARISON STUDY: 11/03/2024 FINDINGS: Stable mild cardiomegaly without pulmonary vascular congestion. No consolidation or pleural effusion. No pneumothorax. IMPRESSION: No acute findings. ACT 112: Negative or not required by law. Electronically signed by: Milton Torres M.D. 12/11/2024 2:[address] 12/11/24 14:00 Clinical History: Altered mental status. Technique: Axial computed tomography images were obtained of the brain from the vertex to the skull base without intravenous contrast. Findings: There is no sign of intracranial hemorrhage. There is normal summers-white matter differentiation with no sign of acute or old infarction. No midline shift or other form of herniation is identified. There is no hydrocephalus. No obvious mass lesion is seen on this noncontrast examination. The visualized portions of the orbits and paranasal sinuses appear unremarkable. The mastoid air cells appear clear Impression: Unremarkable noncontrast CT of the brain Electronically signed by Ryder Forrester 12-11-2024 4:22 PM Medications Administered Discontinued Medications Ioversol (Optiray 320 100ml) 90 ml IV ONCE ONE Stop: 12/11/24 15:49 Last Admin: 12/11/24 15:49 Dose: 90 ml Documented By: DELANEY Lactulose (Lactulose Syrup 20 Gm/30 Ml Udc) 30 gm PO NOW STA Stop: 12/11/24 16:24 Last Admin: 12/11/24 16:51 Dose: 30 gm Documented By: CEF Code Status & VTE Plan Code Status FULL CODE - As per discussion with the patient's Carmen Hutchinson at bedside Supervising Physician Co-Signing Physician Notes Attending addendum: The patient was seen and examined in emergency room in presence of the He has been complaining of confusion since Monday and missed a dose of lactulose on that day Has been having bowel movement from yesterday but confusion persisting Denies any fever but feels chilly with shakes which has been normal for him Complains today of some abdominal discomfort and pain without nausea and vomiting On examination Afebrile with chills and remains hemodynamically stable Chest was clear to auscultation bilaterally HeartS1-S2, regular Abdomenmildly distended, soft, mildly tender and bowel sound present Extremitiestrace to 1+ edema bilaterally His admission labs and imaging studies noted Ammonia level remains normal at 64 Has hepatic encephalopathy with history of cirrhosis No evidence of infection but will need to get ultrasound of the abdomen and if there is any fluid needs to be tapped and send it for culture and studies Will send stool for C. difficile and also culture Other significant medical conditions as mentioned above and managed accordingly Agree with assessment plan as outlined above by Ro Holman PA-C and take the full responsibility in the hospital DR Shaina Marquez (1) Alcoholic cirrhosis Ascites presence: unspecified Qualified Code(s): K70.30 - Alcoholic cirrhosis of liver without ascites
[2024-12-11] MEDS ORDERED: PROMETHAZINE 6.25 MG/50.25 ML BAG IV PRN (22:15)
[2024-12-11] MEDS ORDERED: ACETAMINOPHEN 325 MG TAB PO PRN (22:15)
[2024-12-11] MEDS ORDERED: POLYETHYLENE (MIRALAX) 17 GM PACK PO PRN (22:15)
[2024-12-11] MEDS ORDERED: MAGNESIUM HYDROXIDE SUSP 30 ML UDC PO PRN (22:15)
[2024-12-11 22:34] LABS: Amphetamines+Metham, Urine Neg (Neg); MDMA (Ecstacy), Urine Pos (Neg); Marijuana, Urine Neg (Neg)
[2024-12-11 22:39] LABS: Appearance Urine Clear (Clear); Bacteria Urine Automated 1+ (None Seen); Cast Urine Automated 0-2 /lpf (0-2); Epithelial Cell Urine Auto 0-2 /hpf (0-2); Glucose Urine UA Negative (Negative); WBC Urine Automated 21-50 /hpf (0-5)
[2024-12-11 22:52] LABS: Cdiff Toxin B Gene (2yr or >) Negative Cdiff Gene (Neg)
[2024-12-11 23:23] LABS: Adenovirus F 40/41 PCR Not Detected (NotDetected); Campylobacter PCR Not Detected (NotDetected); Enteroaggregative E.coli(EAEC) Not Detected (NotDetected); Shiga-like Toxin E.coli (STEC) Not Detected (NotDetected); Vibrio species PCR Not Detected (NotDetected)
--- NOTE | 2024-12-11 23:48 | Ultrasound Report ---
Exam(s): US LIVER EXAM: US Abdomen Limited CLINICAL HISTORY: Reason for exam: Liver mass on CTAP. TECHNIQUE: Real-time ultrasound of the liver with image documentation. COMPARISON: CT abdomen and pelvis 12/11/2024 FINDINGS: Liver: Scattered hepatic cysts. Nodular liver compatible with cirrhosis. Portal vein not visualized by ultrasound. Abdominal varices indicating portal hypertension. Gallbladder: Cholecystectomy. Common bile duct: No biliary dilatation. CBD measures 2 mm. Pancreas: Pancreas suboptimally characterize. Right kidney: Right kidney measures 8.8 cm. No hydronephrosis. IMPRESSION: 1. Scattered hepatic cysts. Nodular liver compatible with cirrhosis. Portal vein not visualized by ultrasound. 2. Abdominal varices indicating portal hypertension. Electronically signed by: Teri Peoples M.D. 12/11/24 23:47 PM
--- NOTE | 2024-12-11 23:49 | Ultrasound Report ---
Exam(s): US ABDOMEN LIMITED EXAM: US Abdomen Limited CLINICAL HISTORY: Reason for exam: Abd distention, cirrhosis. TECHNIQUE: Real-time ultrasound of the abdomen for ascites assessment. COMPARISON: No relevant prior studies available. FINDINGS/IMPRESSION: No ascites identified. Electronically signed by: Teri Peoples M.D. 12/11/24 23:48 PM
[2024-12-12] MEDS: MAGNESIUM OXIDE 400 MG TAB PO SCH (01:19)
[2024-12-12] MEDS: ZINC SULFATE 220 MG CAPSULE PO SCH (01:20)
[2024-12-12] MEDS: NYSTATIN POWDER 15GM BTL EXT SCH (01:20)
[2024-12-12] MEDS: CLOTRIMAZOLE 1% CR 15 GM TUBE EXT SCH (01:20)
[2024-12-12] MEDS: LACTULOSE SYRUP 20 GM/30 ML UDC PO SCH (06:08)
[2024-12-12 06:37] LABS: Hematocrit (blood only) 40.5 % (42.0-52.0); Hemoglobin 14.5 g/dl (14.0-18.0); Mean Corpuscular Hemoglobin 33.9 pg (25.0-34.0); Mean Corpuscular Volume 94.6 fL (80.0-100.0); Platelet Count 40 K/uL (130-400); RDW Standard Deviation 49.5 fL (36.4-46.3); Red Blood Count 4.28 M/uL (4.70-6.10); White Blood Count 6.58 K/ul (4.8-10.8)
[2024-12-12 07:11] LABS: Alanine Aminotransferase 28.0 U/L (7-52); Albumin Globulin Ratio 1.2 (0.9-2); Alkaline Phosphatase 119.0 U/L (34-104); Anion Gap 7.0 (3-11); Bilirubin,Total 3.7 mg/dl (0.2-1.0); Blood Urea Nitrogen 18.0 mg/dl (6-23); Calcium 8.5 mg/dl (8.6-10.3); Carbon Dioxide 19.0 mmol/L (21-32); Chloride 115.0 mmol/L (98-107); Creatinine Clr Calc Pharmacy 108.4 ml/min; Globulin 2.6 gm/dl (2.5-4.0); Glucose 97.0 mg/dl (70-99(Fasting)); Magnesium 1.9 mg/dl (1.7-2.4); Potassium 3.9 mmol/L (3.5-5.1); Sodium 141.0 mmol/L (136-145); Total Protein 5.7 gm/dl (6.0-8.3)
--- NOTE | 2024-12-12 08:18 | Gastrointestinal Consultation ---
Date of Consultation December 12, 2024 Assessment & Plan (1) Acute hepatic encephalopathy: 59 year old male with history of alcoholic cirrhosis w/ MELD 14, recurrent hepatic encephalopathy on Lactulose QID and Xifaxan BID, ascites on Lasix 40 and Aldactone 25 thrombocytopenia, esophageal varices without bleeding, prior RI, TIA, HTN, GERD, depression, avascular necrosis of left hip, ARGELIA/anemia of chronic disease admitted through the ED w/ AMS. 1. AMS - Improving - Ammonia 65 - Continue Lactulose QID - Continue Xifaxan BID - Continue Zinc - Head CT negative - Chest XR negative - Imaging w/o ascites - Stool PCR negative - C.diff negative - No S/S of GI bleeding - ETOH level negative - UTOX prelim positive - Follow MDMA studies 2. Cirrhosis Management - Please help arrange follow up with his estabblised care team at [facility] (YOGESH Ruff and Dr. Camarog) - MELD labs every 6 months - ABD imaging w/ AFP every 6 months - CT w/ 4 cyst in the right hepatic lobe, measuring up to 1.2 cm. - Check AFP - Recommend MRI liver to his OP team for further characterization - EGD every 1-2 years - No ETOH - No NSAIDs - Avoid hepatotoxin - Low NA diet, less than 2G daily - Less than 2G acetaminophen containing products daily I spent a total of 60 minutes on the date of service in review of patient's record, and previously obtained information in person and appropriate medical visit, discussion and education of plan, with patient and/or caregiver, placing orders for tests/referral/procedures as medically necessary and documentation of pertinent clinical information in patient's medical records for their visit today. Supervising Physician Co-Signing Physician Notes I personally saw and examined the patient. I have reviewed the chart and agree with the documentation provided by the EDITOR MAGAZINE including discussion about the assessment, treatment and plan. 59 year old male with history of alcoholic cirrhosis w/ MELD 14, recurrent hepatic encephalopathy on Lactulose QID and Xifaxan BID, ascites on Lasix 40 and Aldactone 25 thrombocytopenia, esophageal varices without bleeding, prior RI, TIA, HTN, GERD, depression, avascular necrosis of left hip, ARGELIA/anemia of chronic disease admitted through the ED w/ AMS. No source of infection found, he does report he does not always take his lactulose and some days he is constipated. No bleeding noted. I suggest we change his diuretics to Aldactone 50 mg p.o. every morning and Lasix 20 mg p.o. every morning. Continue lactulose and titrate to 2-3 bowel movements per day. Use Xifaxan while in hospital and zinc. GI has no further recommendations he is clinically improving we will sign off please call us with any questions History of Present Illness Reason for Consultation: Hepatic encephalopathy Requesting Physician: Yury Whittaker DO Attending Physician: Yury Whittaker DO History of Present Illness 59 year old male with history of alcoholic cirrhosis w/ MELD 14, recurrent hepatic encephalopathy on Lactulose QID and Xifaxan BID, ascites on Lasix 40 and Aldactone 25 thrombocytopenia, esophageal varices without bleeding, prior RI, TIA, HTN, GERD, depression, avascular necrosis of left hip, ARGELIA/anemia of chronic disease admitted through the ED w/ AMS. GI asked to evaluate for HE. This AM he tells me he feels well. He is awake, alert and oriented to person, place and year. He is feeling well - denies abd pain, nausea/vomiting. Tolerating PO intake well. No change in bowel habits. No diarrhea/constipation. No fever, chills, CP, SOB. No family available at bedside at time of AM rounds but he reports compliance with both lactulose and xifaxan. No ETOH or drug use reported. 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 Nodular liver compatible with cirrhosis. Portal vein not visualized by ultrasound. Abdominal varices indicating portal hypertension. ABD US 2024: No ascites identified. CTAP 2024: Unchanged advanced cirrhosis and portal hypertension Unchanged splenic cysts Unchanged splenomegaly Unchanged mild abdominal aortic aneurysm Small left renal cyst Colonoscopy 2024: Internal hemorrhoids.Friability with contact bleeding in the entire examined colon given platelets of 30. No specimens collected. EGD 2023: Normal esophagus. Grade I esophageal varices. Z-line regular. Normal stomach. No evidence of gastric varices were noted.Portal hypertensive gastropathy. Normal duodenal bulb and second portion of the duodenum. Allergies Allergy/AdvReac Type Severity Reaction Status Date / Time bee venom protein (honey bee) Allergy Severe Anaphylaxis--CARRIES Verified 10/28/24 10:25 AN EPIPEN Home Medications Medication Instructions Recorded Confirmed Type atorvastatin 20 mg tablet 20 mg PO QAM 04/20/24 12/11/24 History duloxetine 30 mg capsule,delayed 30 mg PO QAM 04/20/24 12/11/24 History release ferrous sulfate 325 mg (65 mg 325 mg PO QAM 04/20/24 12/11/24 History iron) tablet furosemide 40 mg tablet 40 mg PO QAM 04/20/24 12/11/24 History gabapentin 100 mg capsule 100 mg PO TID 04/20/24 12/11/24 History lactulose 10 gram/15 mL oral 45 ml PO QID 04/20/24 12/11/24 History solution magnesium oxide 400 mg (241.3 mg 400 mg PO BID 04/20/24 12/11/24 History magnesium) tablet pantoprazole 40 mg tablet,delayed 40 mg PO BID 04/20/24 12/11/24 History release (Protonix) rifaximin 550 mg tablet (Xifaxan) 550 mg PO BID 04/20/24 12/11/24 History clonidine HCl 0.1 mg tablet 0.1 mg PO BID 08/18/24 12/11/24 History trazodone 50 mg tablet 50 - 100 mg PO HS 08/18/24 12/11/24 History vitamin A 3,000 mcg (10,000 unit) 6,000 mcg PO DAILY 08/18/24 12/11/24 History capsule acetaminophen 500 mg tablet 1,000 mg (2 x 500 mg) PO Q8H PRN 08/19/24 12/11/24 Rx (Tylenol Extra Strength) fever or pain #100 tabs albuterol sulfate 90 mcg/actuation 2 inh inhalation Q4H PRN Shortness 11/03/24 12/11/24 History aerosol inhaler Of Breath zinc acetate 50 mg (zinc) capsule 50 mg PO BID 11/03/24 12/11/24 History Patient History Medical History Migraine Hx SBO Alcoholic cirrhosis Dilated aortic root Insomnia H/O angioedema ongoing, follows with allergy Avascular necrosis of femur GERD (gastroesophageal reflux disease) Depression Hepatic encephalopathy Basilar artery aneurysm Left rib fracture History of ascites Hypertension Hyperlipidemia Surgical History History of total left hip replacement History of esophagogastroduodenoscopy (EGD) History of colonoscopy History of bowel resection 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 History of appendectomy History of tooth extraction Family History Father Hearing loss Hypertension Stroke Heart disease Other No pertinent family history in first degree relatives Denies family history of No family history of adverse response to anesthesia No family history of bleeding disorder Allergies Asthma Social History Smoking Status: Never smoker Tobacco Type: Cigarettes Cigarettes Per Day: 1; Second Hand Exposure: No; Do You Dip or Chew Tobacco: No; Hx Alcohol Use: No Hx Substance Use: No Preferred Language: Maldivian Communication Ability: Effective Technology Advisor Required: No Beliefs That Will Affect Care: None marital status: Life Partner marital status details: fiance Current Living Situation: Significant Other Current Living Situation Comment: LIVES WITH GIRLFRIEND current occupational status: 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 Physical Exam Constitutional: WD/WN, vitals as above Respiratory: normal respiratory effort, lungs clear to auscultation Gastrointestinal (Abdomen): normal bowel sounds, soft, nontender, no hepatosplenomegaly Skin: no rashes, warm and dry Results & Data Vital Signs (Past 12 Hours) Vital Signs Temp Pulse Pulse Resp BP BP Pulse Ox 12/12/24 07:28 92 H 12/12/24 04:00 98.6 F 83 18 117/72 95 12/12/24 01:59 98.6 F 91 H 18 163/80 H 94 12/11/24 22:23 85 12/11/24 22:15 98.6 F 91 H 18 163/80 H 94 12/11/24 21:27 87 20 160/93 H 97 12/11/24 21:13 98.4 F 86 20 171/93 H 98 O2 Del Method 12/12/24 07:28 12/12/24 04:00 Room Air 12/12/24 01:59 Room Air 12/11/24 22:23 12/11/24 22:15 Room Air 12/11/24 21:27 Room Air 12/11/24 21:13 Room Air Laboratory Results 12/12/24 12/11/24 12/11/24 Range/Units 06:21 21:43 16:55 WBC 6.58 (4.8-10.8) K/ul RBC 4.28 L (4.70-6.10) M/uL Hgb 14.5 (14.0-18.0) g/dl Hct 40.5 L (42.0-52.0) % MCV 94.6 (80.0-100.0) fL MCH 33.9 (25.0-34.0) pg MCHC 35.8 (32.0-36.0) g/dL RDW Std Deviation 49.5 H (36.4-46.3) fL RDW Coeff of Fabiola 14.3 (11.5-14.5) % Plt Count 40 L (130-400) K/uL MPV 12.3 (9.4-12.4) fL Immature Gran % (Auto) % Neut % (Auto) % Lymph % (Auto) % Rincon % (Auto) % Eos % (Auto) % Baso % (Auto) % Neut # (Auto) (1.40-6.50) K/uL Lymph # (Auto) (1.20-3.40) K/uL Rincon # (Auto) (0.11-0.59) K/uL Eos # (Auto) (0.00-0.50) K/uL Baso # (Auto) (0.00-0.20) K/uL Immature Gran # (Auto) (0.01-0.20) K/uL PT (9.0-12.0) Seconds INR (0.9-1.1) APTT (21-31) Seconds PTT Ratio Sodium 141 (136-145) mmol/L Potassium 3.9 (3.5-5.1) mmol/L Chloride 115 H (98-107) mmol/L Carbon Dioxide 19 L (21-32) mmol/L Anion Gap 7 (3-11) BUN 18 (6-23) mg/dl Creatinine 0.82 (0.6-1.4) mg/dl Est Cr Clr Drug Dosing 108.4 ml/min eGFR 100.56 BUN/Creatinine Ratio 22.0 H (10-20) Glucose 97 (70-99(Fasting)) mg/dl POC Glucose (70-99) mg/dl Lactate (0.4-2.0) mmol/L Calcium 8.5 L (8.6-10.3) mg/dl Magnesium 1.9 (1.7-2.4) mg/dl Total Bilirubin 3.7 H (0.2-1.0) mg/dl AST 56 H (13-39) U/L ALT 28 (7-52) U/L Alkaline Phosphatase 119 H (34-104) U/L Ammonia (18-72) umol/L Troponin I High Sens (0-20) pg/ml Total Protein 5.7 L (6.0-8.3) gm/dl Albumin 3.1 L (3.4-5.0) gm/dl Globulin 2.6 (2.5-4.0) gm/dl Albumin/Globulin Ratio 1.2 (0.9-2) Urine Color Dark Yellow Urine Appearance Clear (Clear) Urine pH 5.5 (4.5-7.5) Ur Specific Malone > 1.045 H (1.000-1.030) Urine Protein Trace H (Negative) Urine Glucose (UA) Negative (Negative) Urine Ketones Trace H (Negative) Urine Blood Trace H (Negative) Urine Nitrite Negative (Negative) Urine Bilirubin 1+ H (Negative) Urine Urobilinogen Negative (Negative) Ur Leukocyte Esterase Trace H (Negative) Urine WBC (Auto) 21-50 H (0-5) /hpf Urine RBC (Auto) 3-5 H (0-2) /hpf U Hyaline Cast (Auto) 0-2 (0-2) /lpf U Epithel Cells (Auto) 0-2 (0-2) /hpf Urine Bacteria (Auto) 1+ H (None Seen) Urine Comment Stl C. cayetanensis PCR Not Detected (NotDetected) Stool Rotavirus A PCR Not Detected (NotDetected) Stl Adenov F 40/41 PCR Not Detected (NotDetected) Stool Astrovirus (PCR) Not Detected (NotDetected) Stool Campylobacter PCR Not Detected (NotDetected) Stl C. diff Tox B Gene Negative Cdiff Gene (Neg) Stl C. diff 027-NAP1-BI NEGATIVE Stool Cryptosporidium PCR Not Detected (NotDetected) Stl E.coli Shiga Tox PCR Not Detected (NotDetected) Stl Enterotoxigenic E PCR Not Detected (NotDetected) Stool EPEC (PCR) Not Detected (NotDetected) Stool EAEC (PCR) Not Detected (NotDetected) Stl E. histolytica PCR Not Detected (NotDetected) Stool Giardia Lamblia PCR Not Detected (NotDetected) Stool Salmonella PCR Not Detected (NotDetected) Stool Sapovirus (PCR) Not Detected (NotDetected) Stl P. shigelloides PCR Not Detected (NotDetected) Stl Shigella/EIEC PCR Not Detected (NotDetected) St Y.enterocolitica PCR Not Detected (NotDetected) Stool Vibrio (PCR) Not Detected (NotDetected) Stl Vibrio cholerae PCR Not Detected (NotDetected) Stl Norovirus GI/GII PCR Not Detected (NotDetected) Urine Opiates Screen Neg (Neg) Ur Methadone, Qual Neg (Neg) Urine Fentanyl Screen Neg (Neg) Urine Barbiturates Neg (Neg) Ur Phencyclidine (PCP) Neg (Neg) U Amphetamin/Meth Scrn Neg (Neg) Urine MDEA Pending MDMA (Ecstasy) Screen Pos H (Neg) MDMA Pending Urine MDMA Pending U Benzodiazepines Scrn Neg (Neg) Ur Cocaine Metabolite Neg (Neg) U Marijuana (THC) Screen Neg (Neg) Ethyl Alcohol mg/dL < 10.0 (<10.0) mg/dl 12/11/24 12/11/24 12/11/24 Range/Units 14:49 14:00 13:22 WBC 8.39 (4.8-10.8) K/ul RBC 4.78 (4.70-6.10) M/uL Hgb 15.6 (14.0-18.0) g/dl Hct 46.2 (42.0-52.0) % MCV 96.7 (80.0-100.0) fL MCH 32.6 (25.0-34.0) pg MCHC 33.8 (32.0-36.0) g/dL RDW Std Deviation 52.3 H (36.4-46.3) fL RDW Coeff of Fabiola 14.6 H (11.5-14.5) % Plt Count 50 L (130-400) K/uL MPV 13.0 H (9.4-12.4) fL Immature Gran % (Auto) 0.4 % Neut % (Auto) 64.6 % Lymph % (Auto) 17.8 % Rincon % (Auto) 12.8 % Eos % (Auto) 3.9 % Baso % (Auto) 0.5 % Neut # (Auto) 5.43 (1.40-6.50) K/uL Lymph # (Auto) 1.49 (1.20-3.40) K/uL Rincon # (Auto) 1.07 H (0.11-0.59) K/uL Eos # (Auto) 0.33 (0.00-0.50) K/uL Baso # (Auto) 0.04 (0.00-0.20) K/uL Immature Gran # (Auto) 0.03 (0.01-0.20) K/uL PT 14.0 H (9.0-12.0) Seconds INR 1.3 H (0.9-1.1) APTT 31 (21-31) Seconds PTT Ratio 1.2 Sodium 140 (136-145) mmol/L Potassium 4.0 (3.5-5.1) mmol/L Chloride 115 H (98-107) mmol/L Carbon Dioxide 17 L (21-32) mmol/L Anion Gap 8 (3-11) BUN 19 (6-23) mg/dl Creatinine 0.99 (0.6-1.4) mg/dl Est Cr Clr Drug Dosing 91.7 ml/min eGFR 87.21 BUN/Creatinine Ratio 19.2 (10-20) Glucose 145 H (70-99(Fasting)) mg/dl POC Glucose 131 H (70-99) mg/dl Lactate 2.0 (0.4-2.0) mmol/L Calcium 8.9 (8.6-10.3) mg/dl Magnesium 2.0 (1.7-2.4) mg/dl Total Bilirubin 3.9 H (0.2-1.0) mg/dl AST 71 H (13-39) U/L ALT 35 (7-52) U/L Alkaline Phosphatase 131 H (34-104) U/L Ammonia 64.0 (18-72) umol/L Troponin I High Sens 8.9 (0-20) pg/ml Total Protein 6.7 (6.0-8.3) gm/dl Albumin 3.6 (3.4-5.0) gm/dl Globulin 3.1 (2.5-4.0) gm/dl Albumin/Globulin Ratio 1.2 (0.9-2) Urine Color Urine Appearance (Clear) Urine pH (4.5-7.5) Ur Specific Malone (1.000-1.030) Urine Protein (Negative) Urine Glucose (UA) (Negative) Urine Ketones (Negative) Urine Blood (Negative) Urine Nitrite (Negative) Urine Bilirubin (Negative) Urine Urobilinogen (Negative) Ur Leukocyte Esterase (Negative) Urine WBC (Auto) (0-5) /hpf Urine RBC (Auto) (0-2) /hpf U Hyaline Cast (Auto) (0-2) /lpf U Epithel Cells (Auto) (0-2) /hpf Urine Bacteria (Auto) (None Seen) Urine Comment Stl C. cayetanensis PCR (NotDetected) Stool Rotavirus A PCR (NotDetected) Stl Adenov F 40/41 PCR (NotDetected) Stool Astrovirus (PCR) (NotDetected) Stool Campylobacter PCR (NotDetected) Stl C. diff Tox B Gene (Neg) Stl C. diff 027-NAP1-BI Stool Cryptosporidium PCR (NotDetected) Stl E.coli Shiga Tox PCR (NotDetected) Stl Enterotoxigenic E PCR (NotDetected) Stool EPEC (PCR) (NotDetected) Stool EAEC (PCR) (NotDetected) Stl E. histolytica PCR (NotDetected) Stool Giardia Lamblia PCR (NotDetected) Stool Salmonella PCR (NotDetected) Stool Sapovirus (PCR) (NotDetected) Stl P. shigelloides PCR (NotDetected) Stl Shigella/EIEC PCR (NotDetected) St Y.enterocolitica PCR (NotDetected) Stool Vibrio (PCR) (NotDetected) Stl Vibrio cholerae PCR (NotDetected) Stl Norovirus GI/GII PCR (NotDetected) Urine Opiates Screen (Neg) Ur Methadone, Qual (Neg) Urine Fentanyl Screen (Neg) Urine Barbiturates (Neg) Ur Phencyclidine (PCP) (Neg) U Amphetamin/Meth Scrn (Neg) Urine MDEA MDMA (Ecstasy) Screen (Neg) MDMA Urine MDMA U Benzodiazepines Scrn (Neg) Ur Cocaine Metabolite (Neg) U Marijuana (THC) Screen (Neg) Ethyl Alcohol mg/dL (<10.0) mg/dl PG Care Time/CCT Total # of Minutes Spent Total Time Spent with Patient: Total time spent is greater than 50% in coordination of care (as documented) at patient's floor/unit and/or counseling patient: Coding Level of Care Code 60791 IN/OBS CONSULT LVL 4,60M Diagnoses Acute hepatic encephalopathy K76.82
[2024-12-12] MEDS: ATORVASTATIN 20 MG TAB PO SCH (09:53)
[2024-12-12] MEDS: FERROUS SULFATE 325 MG TAB PO SCH (09:53)
[2024-12-12] MEDS: FUROSEMIDE 40 MG TAB PO SCH (09:53)
--- NOTE | 2024-12-12 14:20 | Hospitalist Progress Note ---
Date of Service December 12, 2024 Assessment & Plan (1) Acute hepatic encephalopathy: (2) Alcoholic cirrhosis: (3) End stage liver disease: (4) Thrombocytopenia: Plan: Chronic (5) Depression: (6) Hypertension: Plan Patient 59-year-old gentleman with recurrent hepatic encephalopathy in the setting of what appears to be end-stage liver disease. GI consultation reviewed, continue current treatments, mentation seems to be slowly improving Extensive review of outside EMR, noted that patient has missed a couple hepatology appointments, most recently 10/31/2024. Unfortunately patient has not had an updated hepatology appointment since he stopped all alcohol intake Extensive phone conversation with patient's significant other, she was not aware of missed appointments. She reports that the patient wants to continue to pursue all options for his end-stage liver disease. She is aware that his prognosis is extremely poor and life expectancy limited if he continues to stay at his current course. She states he is not had alcohol for many months. She did state that he will miss doses of his lactulose and Xifaxan intermittently. This is most likely etiology for his recurrent decompensation. Based on imaging findings, suspect patient may need to have close to 6 stools a day to maintain normal mentation. Will need to titrate lactulose to such. Monitor electrolytes, monitor renal function Anticipate outpatient follow-up with hepatology, discharge in 1 to 2 days Therapies Case management for disposition planning Admission and Anticipated Discharge Date Admission Date: December 11, 2024 Subjective Patient still appears to be confused and encephalopathic this morning but somewhat improved. Physical Exam Physical Exam: Constitutional: Alert HEENT: Mucous membranes moist. Lungs: Clear to auscultation, decreased, no wheezes rales or rhonchi CV: S1-S2, regular Abdomen: Soft, nontender, nondistended Extremities: No significant edema Neuro: Generally weak Psych: Cooperative, poor memory, Results & Data Results & Data Vital Signs (Past 12 Hours) Vital Signs Temp Pulse Pulse Pulse Resp BP Pulse Ox 12/12/24 11:14 37.0 C 78 18 143/84 H 94 12/12/24 08:10 37.0 C 91 H 20 135/87 95 12/12/24 07:28 92 H 12/12/24 04:00 37.0 C 83 18 117/72 95 O2 Del Method 12/12/24 11:14 Room Air 12/12/24 08:10 Room Air 12/12/24 07:28 12/12/24 04:00 Room Air Diagnostic Findings Reviewed imaging, laboratory and diagnostic studies. Pertinent findings as below. Platelets 40, at baseline Potassium 3.9 Chloride 115 Creatinine 0.82 LFTs reviewed Stool BioFire negative C. difficile negative (2) Alcoholic cirrhosis Ascites presence: unspecified Qualified Code(s): K70.30 - Alcoholic cirrhosis of liver without ascites (5) Depression Depression Type: unspecified Qualified Code(s): F32.A - Depression, unspecified (6) Hypertension Hypertension type: unspecified Qualified Code(s): I10 - Essential (primary) hypertension
[2024-12-12] MEDS: ACETAMINOPHEN 325 MG TAB PO PRN (20:31)
[2024-12-13 07:24] LABS: Anion Gap 8.0 (3-11); Blood Urea Nitrogen 15.0 mg/dl (6-23); Calcium 8.6 mg/dl (8.6-10.3); Carbon Dioxide 20.0 mmol/L (21-32); Chloride 112.0 mmol/L (98-107); Creatinine Clr Calc Pharmacy 104.6 ml/min; Glucose 114.0 mg/dl (70-99(Fasting)); Magnesium 1.7 mg/dl (1.7-2.4); Potassium 3.6 mmol/L (3.5-5.1); Sodium 140.0 mmol/L (136-145)
[2024-12-13 08:23] VITALS: RESP 19
--- NOTE | 2024-12-13 11:50 | Discharge Summary ---
Discharge Summary Date of Service December 13, 2024 Principal Dx & Hospital Course #1 = Principal Diagnosis (1) Acute hepatic encephalopathy: (2) Portal hypertension: (3) End stage liver disease: (4) Alcoholic cirrhosis: (5) Thrombocytopenia: Chronic (6) Depression: (7) Hypertension: Plan Patient 59-year-old gentleman with known end-stage cirrhosis due to history of alcohol use presents with acute hepatic encephalopathy. This is a recurrent issue for the patient. He had failed attempts of increasing his lactulose dosing as an outpatient. Patient was admitted to the hospital. He was given s cheduled lactulose. GI consultation was obtained. Was seen by GI who recommended that he continue with the lactulose and the Xifaxan. Patient's mental status improved with these interventions. Further history is obtained that the patient does occasionally/frequently miss a dose or 2 of his lactulose on a fairly frequent basis. This is probably why he decompensated. 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 This is for various reasons. Patient was initially told by transplant team that he was not a candidate due to the fact that he was still actively using alcohol. Patient states he has not had any alcohol for more than 6 months, however, has not followed up with hepatology team. Stressed to the patient it is absolutely critical that he follow-up with the hepatology team. Concerned that he is at extremely end-stage of his liver disease and that is life expectancy is short should he not have any further interventions or even be considered for liver transplant. Since he has not had any alcohol for greater than 6 months he may be a candidate and strongly recommended that he make these appointments. We coordinated an appointment for him in [place] with hepatology team to further evaluate and reevaluate his candidacy for liver transplant. On the day of discharge seems to be back to his baseline mental status. His significant other is fully aware of the patient's condition and need for follow-up with a specialist. Also stressed to the patient and his significant other the need to not miss any of his medications. His condition is such that even if he misses 1 or 2 doses of his lactulose or Xifaxan he will have significant mental status issues and changes. Patient was continued on his other medications. He be discharged home to follow-up with outpatient providers. Notes For Next Care Provider Hepatology/liver transplant team evaluation Continue to encourage compliance with all medications Monitor electrolytes Medication Changes From Visit Lactulose 30 g 4 times daily Admission HPI Per Admitting Provider Patient is a 59-year-old male with past medical history significant for HLD, HTN, alcoholic cirrhosis, history of recurrent hospitalizations for hepatic encephalopathy, esophageal varices without bleeding, chronic thrombocytopenia, history of UT, history of TIA, internal hemorrhoids, AAA, GERD with esophagitis, necrosis of bone of left hip, lumbosacral DDD, bilateral age-related nuclear cataracts, peripheral polyneuropathy, ARGELIA and splenomegaly who presented to the ED with his fianceCarmen, due to AMS x 3 days. Patient mostly oriented to self - unable to identify situation, location and date; only answering yes/no direct questions. Therefore history directly obtained from his fiance at bedside. Additional supplementing information gathered from discussion with ED provider and associated chart review. Previous similar presentation last month with subsequent admission for hepatic encephalopathy, recurrent falls. Coming in today with increased confusion/AMS over the past 3 days. For example, patient is increasingly forgetful and sleepy to the point where his fiance took off work to stay with him today as she did not feel safe leaving him home alone. Had lactulose dose increased from 30mL QID to 45mL QID last admission. Notes patient has been compliant with this up until yesterday when he refused to take it. He did take 2 of his doses today. Bowel movements are extremely loose. Had about 7-8 bowel movements already today, including a few in the ED. Denies any melena or hematochezia. No recent falls or trauma. His fiance reports that he stumbles often at home but this is quite typical for him. Also with increasing abdominal distention over the past few days to the point where his jeans, a pair which he wears frequently, would not button today. Patient has been complaining of some vague abdominal discomfort associated with this. Patient does have a history of chronic abdominal pain due to his history of SBO s/p prior exploratory laparotomy. Mild decline in oral intake over the past 2 days with increased lethargy/sleepiness. There was prior consideration for liver transplantation however his fiance reports this is no longer being pursued. Reportedly no alcohol use for the past month. Prior to this, evert reports he was drinking "1 or 2 beers here and there but that's it." Admission Exam Per Admitting Provider See H&P Discharge Exam Constitutional: Alert HEENT: Mucous membranes moist. Some scleral icterus Lungs: Clear to auscultation, decreased, no wheezes rales or rhonchi CV: S1-S2, regular Abdomen: Soft, nontender, nondistended Extremities: No significant edema Neuro: No focal deficits Psych: Seems to be back to baseline mental status Updated Medication List Medication Instructions Recorded Confirmed Type atorvastatin 20 mg tablet 20 mg PO QAM 04/20/24 12/11/24 History duloxetine 30 mg capsule,delayed 30 mg PO QAM 04/20/24 12/11/24 History release ferrous sulfate 325 mg (65 mg 325 mg PO QAM 04/20/24 12/11/24 History iron) tablet furosemide 40 mg tablet 40 mg PO QAM 04/20/24 12/11/24 History gabapentin 100 mg capsule 100 mg PO TID 04/20/24 12/11/24 History magnesium oxide 400 mg (241.3 mg 400 mg PO BID 04/20/24 12/11/24 History magnesium) tablet pantoprazole 40 mg tablet,delayed 40 mg PO BID 04/20/24 12/11/24 History release (Protonix) rifaximin 550 mg tablet (Xifaxan) 550 mg PO BID 04/20/24 12/11/24 History clonidine HCl 0.1 mg tablet 0.1 mg PO BID 08/18/24 12/11/24 History trazodone 50 mg tablet 50 - 100 mg PO HS 08/18/24 12/11/24 History vitamin A 3,000 mcg (10,000 unit) 6,000 mcg PO DAILY 08/18/24 12/11/24 History capsule acetaminophen 500 mg tablet 1,000 mg (2 x 500 mg) PO Q8H PRN 08/19/24 12/11/24 Rx (Tylenol Extra Strength) fever or pain #100 tabs albuterol sulfate 90 mcg/actuation 2 inh inhalation Q4H PRN Shortness 11/03/24 12/11/24 History aerosol inhaler Of Breath zinc acetate 50 mg (zinc) capsule 50 mg PO BID 11/03/24 12/11/24 History clotrimazole 1 % topical cream 1 applic EXT BID #30 grams 12/13/24 Rx lactulose 10 gram/15 mL oral 30 ml PO QID #3,000 mL 12/13/24 Rx solution Hospital Stay Data Consultations 12/11/24 16:56 ED Decision to Admit Stat 12/11/24 18:24 Consult Gastroenterology Routine Diagnostic Imagining Performed 12/11/24 13:59 CT abd pelvis IV con only Stat 12/11/24 14:00 CT head/brain wo con Stat 12/11/24 18:12 US abdomen ltd ascites Urgent US liver Urgent Reviewed imaging, laboratory and diagnostic studies. Pertinent findings as below. WBC 6.5 Hemoglobin 14.5 Platelets of 40 Sodium 140 Potassium 3.6 Bicarb 20 Creatinine 0.85 Bilirubin 3.7 AST 56 ALT 28 Alk phos 119 Ammonia level 64 Urine culture mixed growth consistent with skin pearl Liver and abdominal ultrasound shows scattered hepatic cysts of nodular liver compatible with cirrhosis. Abdominal varices consistent with portal hypertension. No evidence of ascites Head CT showed no acute findings Pending Results Patient Have Any Pending Studies at Discharge: No Discharge Instructions Given to Patient (Per Discharging Provider) It is critical that you take all your medications as prescribed. With your liver disease even if you miss a dose or 2 you are going to have significant s ymptoms with altered mental status. It is absolutely essential that you attend the hepatology appointment scheduled for you Andriy. You need to be reevaluated by the transplant team Total Time Total Time Spent Total Time Spent (In Minutes): 40
[2024-12-13 12:04] VITALS: BP 129/74; TEMP 97.9; O2SAT 94
[2024-12-13 12:52] VITALS: PULSE 83
== END 2024-12-13 13:25 | disposition home or self-care (01) | DRG 433 ==
LOC: ED 13:14 → 2N 18:12 → SUATTDRO 18:12 → 2N 21:27

== ENCOUNTER 2025-02-21 22:05 | Inpatient (IN) ==
--- NOTE | 2025-02-21 22:33 | Emergency Department Note ---
Impression & Plan Altered mental status, Hyperammonemia, Diffuse abdominal pain, Enteritis, Elevated lactic acid level ED Provider Note NAME: MARLEEN MELTON AGE: 59 SEX: M : 1965 ARRIVES VIA: Walk-In INFORMANT: [Patient][fiance] ED PROVIDER(S): [Anderson Justin MD] CHIEF COMPLAINT: Shortness of breath, confusion HISTORY OF PRESENT ILLNESS: The patient is a 59-year-old male who at the dinner this evening, a few hours ago, began to stare off and have a change in his mentation. Later in the evening, he became shaky and weak and complained of pain about the abdomen, back and legs. There was no fall or trauma, he has not had a fever, cough or congestion. He was well earlier in the day. As per his fiance, she is concerned about the sudden change in mental status. Of note, the patient does have a history of hepatic encephalopathy and alcoholic cirrhosis. He is on lactulose, although, he did not have his evening lactulose dose. PMHx/PSHx/Social Hx: See Below PHYSICAL EXAM: GENERAL: Patient is in no acute distress. HEENT: No acute trauma, normocephalic atraumatic, mucous membranes moist, no nasal congestion. Pupils equal and reactive to light. NECK: No stridor, no adenopathy, no meningismus, trachea is midline. LUNGS: Clear to auscultation bilaterally, no wheeze, no rhonchi, breath sounds equal. HEART: Without murmurs gallops or rubs, regular rate and rhythm. ABDOMEN: Soft, mildly diffusely tender, no distention. EXTREMITIES: No cyanosis, full range of motion of all the joints without pain or difficulty. Mild bilateral pedal edema. NEUROLOGIC: Awake, confused, poor historian. Seen to move all extremities. SKIN: No jaundice, no diaphoresis. DIFFERENTIAL DIAGNOSIS: Liver or renal failure, electrolyte imbalance, intracranial bleeding, stroke, hyperammonemia, among others. EMERGENCY DEPARTMENT PROCEDURES: MEDICAL DECISION MAKING: There is no leukocytosis or concerning anemia. The patient does have a lower platelet count, this is baseline and likely from his liver disease. There was no bandemia. INR somewhat elevated at 1.3, likely from his liver disease. VBG did show a very subtle acidosis although, CO2 was not elevated. There was no renal failure or significant electrolyte abnormality. Lactic acid level was elevated consistent with infection and/or dehydration. There were some elevated liver enzymes, consistent with his ongoing liver disease. Ammonia level was quite high at 110. The patient appeared to be in a euthyroid state. ECG showed a sinus rhythm, no acute ischemia. Cardiac enzyme testing x 1 was not consistent with acute cardiac injury. Urinalysis did not show infection. Alcohol level was undetectable. Respiratory BioFire was negative. Chest x-ray did not show pneumonia or CHF. Brain CT did not show any acute bleed or mass effect. Abdominal and pelvis CT shows an enteritis, no bowel obstruction or acute surgical process. On exam, the patient was confused and complaining of diffuse abdominal pain, back pain and leg pain. He was not toxic or febrile. Patient received IV saline, 1 L. He was given IV Zofran, IV morphine and IV cefepime. He was given a dose of IV Keppra, 2 g. This was given as the nursing staff noticed some shaking in the room and, there was concern for possible short-lived seizure-like activity. By the nursing staff report, there was no postictal phase. The patient presents with confusion. He has a high ammonia level and elevated lactic acid level. Given his presentation and findings, admission, further hospital care is warranted. I did speak with the patient, I did speak with case management, the on-call hospitalist was consulted. Prior/Outside records/notes reviewed: Discharge summary note from 12/13/2024 describing his presentation, hospital course and plan at discharge. ECG per my interpretation: Indication was confusion. The ECG shows a normal sinus rhythm with a rate of 77. There is diffuse artifact present. There is no acute ST elevation, no PVCs. The QTc is 482. Continuous Cardiac Monitoring per my interpretation: An order was placed for continuous cardiac monitoring. The monitor shows a rate of 80 with normal sinus rhythm. Imaging/x-ray results per my interpretation: Chest x-ray does not show pneumonia or CHF. Chronic Medical/Social conditions affecting care: History of alcoholic cirrhosis Care/Management discussed with: Case management and the on-call hospitalist. Level of care consideration(s): After review of the information above and other included data: --I believe the patient requires escalation of care to admission Critical Care Note: I have personally spent 42 minutes of critical care time in the direct management of this patient. This includes bedside care, interpretation of diagnostic studies, and testing, discussion with consultants, patient, and family members, and other required patient management activities. This 42 minutes is in excess of all separately billable procedures. DISPOSITION: Admission Past Med/Surg History Problem List (Updated 02/22/25 @ 01:22 by Anderson Justin MD) Elevated lactic acid level (Acute) Enteritis (Acute) Diffuse abdominal pain (Acute) Altered mental status (Acute) Chest pain (Acute) Portal hypertension End stage liver disease Thrombocytopenia (Acute) Chest pain (Acute) Acute hepatic encephalopathy (Acute) Traumatic open wound of right lower leg with delayed healing (Acute) Hyperammonemia (Acute) Medical History Migraine Hx SBO Alcoholic cirrhosis Dilated aortic root Insomnia H/O angioedema ongoing, follows with allergy Avascular necrosis of femur GERD (gastroesophageal reflux disease) Depression Hepatic encephalopathy Basilar artery aneurysm Left rib fracture History of ascites Hypertension Hyperlipidemia Surgical History History of total left hip replacement History of esophagogastroduodenoscopy (EGD) History of colonoscopy History of bowel resection 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 History of appendectomy History of tooth extraction Family History Father Hearing loss Hypertension Stroke Heart disease Other No pertinent family history in first degree relatives Denies family history of No family history of adverse response to anesthesia No family history of bleeding disorder Allergies Asthma Social History Smoking Status: Current some day smoker Tobacco Type: Cigarettes Cigarettes Per Day: 1; Second Hand Exposure: No; Do You Dip or Chew Tobacco: No; Hx Alcohol Use: No Hx Substance Use: No Preferred Language: Ukrainian Communication Ability: Effective 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 Beliefs That Will Affect Care: None marital status: Life Partner marital status details: fiance Current Living Situation: Significant Other Current Living Situation Comment: LIVES WITH GIRLFRIEND current occupational status: 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 How many Children do You have: 0 Feels Safe at Home: Yes Assistive Devices: None Allergies Allergies Allergy/AdvReac Type Severity Reaction Status Date / Time bee venom protein (honey bee) Allergy Severe Anaphylaxis--CARRIES Verified 02/21/25 22:48 AN EPIPEN adhesive Allergy Intermediate WOUND Verified 02/21/25 22:48 DRESSING ADHESIVE--RASH Home Meds Home Medications Medication Instructions Recorded Confirmed atorvastatin 20 mg tablet 20 mg PO QAM 04/20/24 02/21/25 duloxetine 30 mg capsule,delayed 30 mg PO QAM 04/20/24 02/21/25 release ferrous sulfate 325 mg (65 mg 325 mg PO QAM 04/20/24 02/21/25 iron) tablet furosemide 40 mg tablet 40 mg PO QAM 04/20/24 02/21/25 gabapentin 100 mg capsule 100 mg PO TID 04/20/24 02/21/25 magnesium oxide 400 mg (241.3 mg 400 mg PO BID 04/20/24 02/21/25 magnesium) tablet pantoprazole 40 mg tablet,delayed 40 mg PO BID 04/20/24 02/21/25 release (Protonix) rifaximin 550 mg tablet (Xifaxan) 550 mg PO BID 04/20/24 02/21/25 clonidine HCl 0.1 mg tablet 0.1 mg PO BID 08/18/24 02/21/25 trazodone 50 mg tablet 100 mg PO HS 08/18/24 02/21/25 vitamin A 3,000 mcg (10,000 unit) 3,000 mcg PO BID 08/18/24 02/21/25 capsule albuterol sulfate 90 mcg/actuation 2 inh inhalation Q4H PRN Shortness 11/03/24 02/21/25 aerosol inhaler Of Breath zinc acetate 50 mg (zinc) capsule 50 mg PO BID 11/03/24 02/21/25 clotrimazole 1 % topical cream 1 applic EXT BID PRN NEEDED 02/12/25 02/21/25 diclofenac sodium 1 % topical gel 2 g topical BID PRN LEFT LATERAL 02/12/25 02/21/25 HIP PAIN epinephrine 0.3 mg/0.3 mL 0.3 mg IM DIRECTED PRN Allergic 02/12/25 02/21/25 injection, auto-injector (EpiPen) Reaction fluoxetine 10 mg capsule 10 mg PO QAM 02/12/25 02/21/25 oxycodone 5 mg tablet 5 mg PO Q8H PRN Breakthrough Pain 02/12/25 02/21/25 Previous Rx's Medication Instructions Recorded lactulose 10 gram/15 mL oral 30 ml PO QID #3,000 mL 12/13/24 solution Results & Data (ED) Vital Signs Vital Signs - 24 hr 02/21/25 22:07 02/21/25 22:17 02/21/25 22:18 Temperature 36.6 C Temperature Source Oral Pulse Rate 77 80 Pulse Rate from SpO2 Sensor Respiratory Rate 19 Respiratory Effort / Characteristics Non-Labored Spontaneous Respiratory Depth Normal Respiratory Pattern Regular Blood Pressure 155/84 H Blood Pressure Mean 107 Blood Pressure Position Sitting Pulse Oximetry 98 98 Oxygen Delivery Method Room Air Room Air Sepsis Recent Fever Within 48 Hours No Sepsis New/Unexplained Change in Mental Status Yes Sepsis Action Taken by Nursing No Action Required 02/21/25 22:18 02/21/25 22:24 02/21/25 22:30 Temperature Temperature Source Pulse Rate 76 69 Pulse Rate from SpO2 Sensor 76 69 Respiratory Rate 19 21 Respiratory Effort / Characteristics Respiratory Depth Respiratory Pattern Blood Pressure 156/87 H 156/83 H Blood Pressure Mean 110 107 Blood Pressure Position Pulse Oximetry 98 99 Oxygen Delivery Method Room Air Room Air Sepsis Recent Fever Within 48 Hours Sepsis New/Unexplained Change in Mental Status Sepsis Action Taken by Nursing 02/21/25 23:00 02/21/25 23:48 02/22/25 00:00 Temperature Temperature Source Pulse Rate 77 74 73 Pulse Rate from SpO2 Sensor 77 74 73 Respiratory Rate 30 H 17 20 Respiratory Effort / Characteristics Respiratory Depth Respiratory Pattern Blood Pressure Blood Pressure Mean Blood Pressure Position Pulse Oximetry 99 98 97 Oxygen Delivery Method Sepsis Recent Fever Within 48 Hours Sepsis New/Unexplained Change in Mental Status Sepsis Action Taken by [facility] Medications Current Medication List: was personally reviewed by me Laboratory Data Attestation: I reviewed the patient's lab results. 02/21/25 22:24 02/21/25 22:24 Lab Results 02/21/25 02/21/25 02/21/25 Range/Units 22:24 23:03 23:18 WBC 5.84 (4.8-10.8) K/ul RBC 4.61 L (4.70-6.10) M/uL Hgb 15.7 (14.0-18.0) g/dL Hct 43.8 (42.0-52.0) % MCV 95.0 (80.0-100.0) fL MCH 34.1 H (25.0-34.0) pg MCHC 35.8 (32.0-36.0) g/dL RDW Std Deviation 55.9 H (36.4-46.3) fL RDW Coeff of Fabiola 15.9 H (11.5-14.5) % Plt Count 46 L (130-400) K/uL MPV 12.2 (9.4-12.4) fL Immature Gran % (Auto) 0.2 % Neut % (Auto) 54.2 % Lymph % (Auto) 21.1 % Mathews % (Auto) 13.5 % Eos % (Auto) 10.1 % Baso % (Auto) 0.9 % Neut # (Auto) 3.17 (1.40-6.50) K/uL Lymph # (Auto) 1.23 (1.20-3.40) K/uL Mathews # (Auto) 0.79 H (0.11-0.59) K/uL Eos # (Auto) 0.59 H (0.00-0.50) K/uL Baso # (Auto) 0.05 (0.00-0.20) K/uL Immature Gran # (Auto) 0.01 (0.01-0.20) K/uL PT 13.3 H (9.0-12.0) Seconds INR 1.3 H (0.9-1.1) APTT 31 (21-31) Seconds PTT Ratio 1.1 VBG pH 7.31 L (7.36-7.41) VBG pCO2 42 (38-50) mmHg VBG pO2 30 mmHg VBG HCO3 21 mmol/L VBG O2 Saturation < 60.0 % VBG Base Excess -5.0 mEq/L Sodium 140 (136-145) mmol/L Potassium 3.7 (3.5-5.1) mmol/L Chloride 109 H (98-107) mmol/L Carbon Dioxide 23 (21-32) mmol/L Anion Gap 8 (3-11) BUN 11 (6-23) mg/dl Creatinine 0.91 (0.6-1.4) mg/dl Est Cr Clr Drug Dosing Not Reportable eGFR 96.49 BUN/Creatinine Ratio 12.1 (10-20) Glucose 103 H (70-99(Fasting)) mg/dl Lactate 5.7 H* (0.4-2.0) mmol/L Calcium 8.6 (8.6-10.3) mg/dl Magnesium 1.9 (1.7-2.4) mg/dl Total Bilirubin 1.9 H (0.2-1.0) mg/dl AST 70 H (13-39) U/L ALT 33 (7-52) U/L Alkaline Phosphatase 229 H (34-104) U/L Ammonia TNP 110.0 H Troponin I High Sens 6.6 (0-20) pg/ml Total Protein 6.8 (6.0-8.3) gm/dl Albumin 3.5 (3.4-5.0) gm/dl Globulin 3.3 (2.5-4.0) gm/dl Albumin/Globulin Ratio 1.1 (0.9-2) Procalcitonin 0.06 (0-0.5) ng/ml TSH 2.108 (0.300-4.500) uIu/ml Urine Color Urine Appearance (Clear) Urine pH (4.5-7.5) Ur Specific Gonzales (1.000-1.030) Urine Protein (Negative) Urine Glucose (UA) (Negative) Urine Ketones (Negative) Urine Blood (Negative) Urine Nitrite (Negative) Urine Bilirubin (Negative) Urine Urobilinogen (Negative) Ur Leukocyte Esterase (Negative) Urine WBC (Auto) (0-5) /hpf Urine RBC (Auto) (0-2) /hpf U Hyaline Cast (Auto) (0-2) /lpf U Epithel Cells (Auto) (0-2) /hpf Urine Bacteria (Auto) (None Seen) Urine Comment Ethyl Alcohol mg/dL < 10.0 (<10.0) mg/dl Adenovirus (PCR) Not Detected (NotDetected) B. pertussis DNA (PCR) Not Detected (NotDetected) B.parapertussis DNA PCR Not Detected (NotDetected) C. pneumoniae DNA (PCR) Not Detected (NotDetected) Coronavirus OC43 (PCR) Not Detected (NotDetected) Coronavirus HKU1 (PCR) Not Detected (NotDetected) Coronavirus 229E (PCR) Not Detected (NotDetected) SARS-CoV-2 (PCR) Not Detected (NotDetected) Coronavirus NL63 (PCR) Not Detected (NotDetected) Human Metapneumovir PCR Not Detected (NotDetected) Influenza Type A (PCR) Not Detected (NotDetected) Influenza Type B (PCR) Not Detected (NotDetected) M. pneumoniae (PCR) Not Detected (NotDetected) Parainfluenza 1 (PCR) Not Detected (NotDetected) Parainfluenza 2 (PCR) Not Detected (NotDetected) Parainfluenza 3 (PCR) Not Detected (NotDetected) Parainfluenza 4 (PCR) Not Detected (NotDetected) RSV (PCR) Not Detected (NotDetected) Entero/Rhino (PCR) Not Detected (NotDetected) 02/21/25 Range/Units 23:30 WBC (4.8-10.8) K/ul RBC (4.70-6.10) M/uL Hgb (14.0-18.0) g/dL Hct (42.0-52.0) % MCV (80.0-100.0) fL MCH (25.0-34.0) pg MCHC (32.0-36.0) g/dL RDW Std Deviation (36.4-46.3) fL RDW Coeff of Fabiola (11.5-14.5) % Plt Count (130-400) K/uL MPV (9.4-12.4) fL Immature Gran % (Auto) % Neut % (Auto) % Lymph % (Auto) % Mathews % (Auto) % Eos % (Auto) % Baso % (Auto) % Neut # (Auto) (1.40-6.50) K/uL Lymph # (Auto) (1.20-3.40) K/uL Mathews # (Auto) (0.11-0.59) K/uL Eos # (Auto) (0.00-0.50) K/uL Baso # (Auto) (0.00-0.20) K/uL Immature Gran # (Auto) (0.01-0.20) K/uL PT (9.0-12.0) Seconds INR (0.9-1.1) APTT (21-31) Seconds PTT Ratio VBG pH (7.36-7.41) VBG pCO2 (38-50) mmHg VBG pO2 mmHg VBG HCO3 mmol/L VBG O2 Saturation % VBG Base Excess mEq/L Sodium (136-145) mmol/L Potassium (3.5-5.1) mmol/L Chloride (98-107) mmol/L Carbon Dioxide (21-32) mmol/L Anion Gap (3-11) BUN (6-23) mg/dl Creatinine (0.6-1.4) mg/dl Est Cr Clr Drug Dosing eGFR BUN/Creatinine Ratio (10-20) Glucose (70-99(Fasting)) mg/dl Lactate (0.4-2.0) mmol/L Calcium (8.6-10.3) mg/dl Magnesium (1.7-2.4) mg/dl Total Bilirubin (0.2-1.0) mg/dl AST (13-39) U/L ALT (7-52) U/L Alkaline Phosphatase (34-104) U/L Ammonia Troponin I High Sens (0-20) pg/ml Total Protein (6.0-8.3) gm/dl Albumin (3.4-5.0) gm/dl Globulin (2.5-4.0) gm/dl Albumin/Globulin Ratio (0.9-2) Procalcitonin (0-0.5) ng/ml TSH (0.300-4.500) uIu/ml Urine Color Yellow Urine Appearance Clear (Clear) Urine pH 6.5 (4.5-7.5) Ur Specific Gonzales 1.010 (1.000-1.030) Urine Protein Negative (Negative) Urine Glucose (UA) Negative (Negative) Urine Ketones Negative (Negative) Urine Blood Negative (Negative) Urine Nitrite Negative (Negative) Urine Bilirubin Negative (Negative) Urine Urobilinogen Positive H (Negative) Ur Leukocyte Esterase 1+ H (Negative) Urine WBC (Auto) 0-5 (0-5) /hpf Urine RBC (Auto) 0-2 (0-2) /hpf U Hyaline Cast (Auto) 0-2 (0-2) /lpf U Epithel Cells (Auto) 0-2 (0-2) /hpf Urine Bacteria (Auto) None Seen (None Seen) Urine Comment Ethyl Alcohol mg/dL (<10.0) mg/dl Adenovirus (PCR) (NotDetected) B. pertussis DNA (PCR) (NotDetected) B.parapertussis DNA PCR (NotDetected) C. pneumoniae DNA (PCR) (NotDetected) Coronavirus OC43 (PCR) (NotDetected) Coronavirus HKU1 (PCR) (NotDetected) Coronavirus 229E (PCR) (NotDetected) SARS-CoV-2 (PCR) (NotDetected) Coronavirus NL63 (PCR) (NotDetected) Human Metapneumovir PCR (NotDetected) Influenza Type A (PCR) (NotDetected) Influenza Type B (PCR) (NotDetected) M. pneumoniae (PCR) (NotDetected) Parainfluenza 1 (PCR) (NotDetected) Parainfluenza 2 (PCR) (NotDetected) Parainfluenza 3 (PCR) (NotDetected) Parainfluenza 4 (PCR) (NotDetected) RSV (PCR) (NotDetected) Entero/Rhino (PCR) (NotDetected) Administered Medications Discontinued Medications Sodium Chloride (Nss) 500 mls @ 999 mls/hr IV .Q31M ONE Stop: 02/21/25 22:53 Last Admin: 02/21/25 22:45 Dose: 999 mls/hr Documented By: SAQIB Cefepime HCl (Maxipime 2000mg) 2,000 mg in 20 mls @ 5 mls/min IV NOW STA; Protocol Stop: 02/21/25 23:38 Last Admin: 02/22/25 00:26 Dose: 5 mls/min Documented By: SAQIB Sodium Chloride (Nss) 500 mls @ 999 mls/hr IV .Q31M ONE Stop: 02/22/25 01:10 Last Admin: 02/22/25 00:59 Dose: 999 mls/hr Documented By: YAMILETH Ioversol (Optiray 320 100ml) 94 ml IV ONCE ONE Stop: 02/21/25 23:21 Last Admin: 02/21/25 23:21 Dose: 94 ml Documented By: PATY Levetiracetam (Levetiracetam 500 Mg/5 Ml Vial) 2,000 mg IV NOW STA Stop: 02/21/25 22:58 Last Admin: 02/21/25 23:03 Dose: 2,000 mg Documented By: SAQIB Morphine Sulfate (Morphine Sulfate 4 Mg/Ml 1 Ml Carp\Vial) 4 mg IV NOW STA Stop: 02/22/25 00:37 Last Admin: 02/22/25 00:59 Dose: 4 mg Documented By: YAMILETH Ondansetron HCl (Ondansetron Inj 2 Mg/Ml 2 Ml Vial) 4 mg IV NOW STA Stop: 02/22/25 00:37 Last Admin: 02/22/25 00:58 Dose: 4 mg Documented By: YAMILETH Imaging Data Radiologist's Impression: Abdomen/Pelvis CT 02/21/25 22:23 Exam(s): CT ABDOMEN + PELVIS With Contrast IV Amt: 94 ml EXAM: CT Abdomen and Pelvis With Intravenous Contrast CLINICAL HISTORY: Reason for exam: diff abd pain. OTHER: Other Notes: diffuse abd pain , chest pain , sob , confusion , shaking , 94 ml optiray 320 TECHNIQUE: Axial computed tomography images of the abdomen and pelvis with intravenous contrast. CTDI is 28.11 mGy and DLP is 2149.12 mGy-cm. Automated exposure control was utilized for the study. A dose lowering technique was utilized adhering to the principles of ALARA. CONTRAST: Patient received 94 ml of IV contrast COMPARISON: 02/12/2025 FINDINGS: Lung bases: Unremarkable. No mass. No consolidation. ABDOMEN: Liver: There is a nodular liver surface suggesting cirrhosis and enlarged spleen measuring 16.2 cm. There are multiple tortuous collateral veins measuring up to 1.9 cm in diameter which appears to represent a superior mesenteric vein to IVC shunt. The portal vein is very small. Gallbladder and bile ducts: Unremarkable. No calcified stones. No ductal dilation. Pancreas: Unremarkable. No mass. No ductal dilation. Spleen: Unremarkable. No splenomegaly. Adrenals: Unremarkable. No mass. Kidneys and ureters: Unremarkable. No solid mass. No hydronephrosis. Stomach and bowel: See below. PELVIS: Appendix: The appendix is not visible. Bowel loops are nondilated. There are gas fluid levels in the distal small bowel and right colon which is abnormal and suggests small ileus or enteritis. No pneumoperitoneum, free fluid, or abscess. Bladder: The urinary bladder is mostly decompressed but unremarkable. Reproductive: Unremarkable as visualized. ABDOMEN and PELVIS: Intraperitoneal space: See above. Bones/joints: Left hip arthroplasty. No hip or pelvic fracture is seen. Mild degenerative changes in the spine. No acute fracture or subluxation. Soft tissues: Unremarkable. Vasculature: 2.9 cm focal ectasia of the infrarenal abdominal aorta. No aneurysm or dissection. Lymph nodes: Unremarkable. No enlarged lymph nodes. IMPRESSION: 1. The appendix is not visible. Bowel loops are nondilated. There are gas fluid levels in the distal small bowel and right colon which is abnormal and suggests small ileus or enteritis. No pneumoperitoneum, free fluid, or abscess. 2. There is a nodular liver surface suggesting cirrhosis and enlarged spleen measuring 16.2 cm. There are multiple tortuous collateral veins measuring up to 1.9 cm in diameter which appears to represent a superior mesenteric vein to IVC shunt. The portal vein is very small. This is unchanged. No ascites. Electronically signed by: Linden Chang MD 02/22/25 00:[address] 02/21/25 22:23 Exam(s): CT HEAD Without Contrast EXAM: CT Head Without Intravenous Contrast CLINICAL HISTORY: Reason for exam: confused. OTHER: Other Notes: diffuse abd pain , chest pain , sob , confusion , shaking TECHNIQUE: Axial computed tomography images of the head/brain without intravenous contrast. CTDI is 28.11 mGy and DLP is 2149.12 mGy-cm. Automated exposure control was utilized for the study. A dose lowering technique was utilized adhering to the principles of ALARA. COMPARISON: 12/11/2024 FINDINGS: Brain: Mild cerebral atrophy, unchanged. The brain is otherwise unremarkable. No acute large vessel infarct or intracranial hemorrhage is seen. Ventricles: Unremarkable. No ventriculomegaly. Bones/joints: Unremarkable. No acute fracture. Soft tissues: Unremarkable. Sinuses: Unremarkable as visualized. No acute sinusitis. Mastoid air cells: Unremarkable as visualized. No mastoid effusion. IMPRESSION: Mild cerebral atrophy, unchanged. The brain is otherwise unremarkable. No acute large vessel infarct or intracranial hemorrhage is seen. Electronically signed by: Linden Chang MD 02/22/25 00:16 AM Chest X-Ray 02/21/25 22:24 Exam(s): XR CXR 1 VIEW EXAM: XR Chest, 1 View CLINICAL HISTORY: Reason for exam: weakness. TECHNIQUE: Frontal view of the chest. COMPARISON: 02/12/2025 FINDINGS: Lungs: Lungs are well inflated and clear. No infiltrate or consolidation is seen. Pleural space: Unremarkable. No pneumothorax. Heart: The cardiac silhouette is mildly enlarged, unchanged. Mediastinum: Unremarkable. Normal mediastinal contour. Bones/joints: Unremarkable. No acute fracture. Upper abdomen: Unremarkable as visualized. No pneumoperitoneum under the diaphragm. IMPRESSION: 1. The cardiac silhouette is mildly enlarged, unchanged. 2. Lungs are well inflated and clear. No infiltrate or consolidation is seen. Electronically signed by: Linden Chang MD 02/21/25 22:58 PM Discharge Plan Visit Data Chief Complaint: Shortness of Breath/Dyspnea Stated Complaint: SOB, DISORIENT, SHAKIN ED Provider: Anderson Justin Discharge Problem: Altered mental status, Hyperammonemia, Diffuse abdominal pain, Enteritis, Elevated lactic acid level Patient Disposition: Admitted As Inpatient Condition: Serious Forms Stand Alone Forms: [facility] [place] Prescriptions Prescriptions: No Action furosemide 40 mg tablet 40 mg PO QAM atorvastatin 20 mg tablet 20 mg PO QAM magnesium oxide 400 mg (241.3 mg magnesium) tablet 400 mg PO BID gabapentin 100 mg capsule 100 mg PO TID Patient Comments: 12/11- per , pt is due for his 2nd dose duloxetine 30 mg capsule,delayed release(DR/EC) 30 mg PO QAM Xifaxan 550 mg tablet 550 mg PO BID pantoprazole [Protonix] 40 mg Tablet,Delayed Release (Dr/Ec) 40 mg PO BID ferrous sulfate 325 mg (65 mg iron) Tablet 325 mg PO QAM zinc acetate 50 mg (zinc) Capsule 50 mg PO BID albuterol sulfate 90 mcg/actuation HFA aerosol inhaler 2 inh INHALATION Q4H PRN (Reason: Shortness Of Breath) clonidine HCl 0.1 mg tablet 0.1 mg PO BID vitamin A 3,000 mcg (10,000 unit) Capsule 3,000 mcg PO BID trazodone 50 mg tablet 100 mg PO HS lactulose 10 gram/15 mL solution 30 ml PO QID Qty: 3000 0RF Patient Comments: 12/11- per spouse, pt his due for his 3rd dose fluoxetine 10 mg capsule 10 mg PO QAM epinephrine [EpiPen] 0.3 mg/0.3 mL Auto-Injector 0.3 mg IM DIRECTED PRN (Reason: Allergic Reaction) oxycodone 5 mg tablet 5 mg PO Q8H PRN (Reason: Breakthrough Pain) diclofenac sodium [Voltaren] 1 % Gel 2 g TOPICAL BID PRN (Reason: LEFT LATERAL HIP PAIN) clotrimazole 1 % cream 1 applic EXT BID PRN (Reason: NEEDED) Referrals Referrals: Toby Paz MD [Primary Care Provider] - Discharge Problem: Altered mental status Qualifiers: Altered mental status type: stupor Qualified Code(s): R40.1 - Stupor
[2025-02-21 22:45] LABS: Hematocrit (blood only) 43.8 % (42.0-52.0); Hemoglobin 15.7 g/dL (14.0-18.0); Immature Granulocytes # (auto) 0.01 K/uL (0.01-0.20); Immature Granulocytes % (auto) 0.2 %; Mean Corpuscular Hemoglobin 34.1 pg (25.0-34.0); Mean Corpuscular Volume 95.0 fL (80.0-100.0); Platelet Count 46 K/uL (130-400); RDW Standard Deviation 55.9 fL (36.4-46.3); Red Blood Count 4.61 M/uL (4.70-6.10); White Blood Count 5.84 K/ul (4.8-10.8)
[2025-02-21] MEDS: SODIUM CHLORIDE 0.9% 500 ML IV ONE (22:45)
--- NOTE | 2025-02-21 22:59 | XRay Report ---
Exam(s): XR CXR 1 VIEW EXAM: XR Chest, 1 View CLINICAL HISTORY: Reason for exam: weakness. TECHNIQUE: Frontal view of the chest. COMPARISON: 02/12/2025 FINDINGS: Lungs: Lungs are well inflated and clear. No infiltrate or consolidation is seen. Pleural space: Unremarkable. No pneumothorax. Heart: The cardiac silhouette is mildly enlarged, unchanged. Mediastinum: Unremarkable. Normal mediastinal contour. Bones/joints: Unremarkable. No acute fracture. Upper abdomen: Unremarkable as visualized. No pneumoperitoneum under the diaphragm. IMPRESSION: 1. The cardiac silhouette is mildly enlarged, unchanged. 2. Lungs are well inflated and clear. No infiltrate or consolidation is seen. Electronically signed by: Linden Chang MD 02/21/25 22:58 PM
[2025-02-21 23:03] LABS: Alanine Aminotransferase 33 U/L (7-52); Albumin Globulin Ratio 1.1 (0.9-2); Albumin Level 3.5 gm/dl (3.4-5.0); Alkaline Phosphatase 229 U/L (34-104); Anion Gap 8 (3-11); Bilirubin,Total 1.9 mg/dl (0.2-1.0); Blood Urea Nitrogen 11 mg/dl (6-23); Calcium 8.6 mg/dl (8.6-10.3); Carbon Dioxide 23 mmol/L (21-32); Chloride 109 mmol/L (98-107); Globulin 3.3 gm/dl (2.5-4.0); Glucose 103 mg/dl (70-99(Fasting)); Magnesium 1.9 mg/dl (1.7-2.4); Potassium 3.7 mmol/L (3.5-5.1); Sodium 140 mmol/L (136-145); Total Protein 6.8 gm/dl (6.0-8.3)
[2025-02-21 23:18] LABS: Thyroid Stimulating Hormone 2.108 uIu/ml (0.300-4.500)
[2025-02-21] MEDS: OPTIRAY 320 100ml IV ONE (23:21)
[2025-02-21 23:24] LABS: INR 1.3 (0.9-1.1); Partial Thromboplastin Time 31 Seconds (21-31); Prothrombin Time 13.3 Seconds (9.0-12.0)
[2025-02-21 23:30] LABS: Base Excess VBG -5.0 mEq/L; HCO3 VBG 21 mmol/L; Oxygen Saturation VBG < 60.0 %; PCO2 VBG 42 mmHg (38-50); PO2 VBG 30 mmHg; pH VBG 7.31 (7.36-7.41)
[2025-02-21 23:31] LABS: Chlamydia pneumoniae PCR Not Detected (NotDetected); Coronavirus 229E PCR Not Detected (NotDetected); Coronavirus CoV-2 (COVID19)PCR Not Detected (NotDetected); Coronavirus HKU1 PCR Not Detected (NotDetected); Coronavirus NL63 PCR Not Detected (NotDetected); Coronavirus OC43PCR Not Detected (NotDetected); Human Metapneumovirus PCR Not Detected (NotDetected); Parainfluenza Virus 1 PCR Not Detected (NotDetected); Parainfluenza Virus 2 PCR Not Detected (NotDetected); Parainfluenza Virus 3 PCR Not Detected (NotDetected); Parainfluenza Virus 4 PCR Not Detected (NotDetected); Respiratory Syncytial VirusPCR Not Detected (NotDetected); Rhinovirus/Enterovirus PCR Not Detected (NotDetected)
--- NOTE | 2025-02-22 00:07 | CT Scan Report ---
Exam(s): CT ABDOMEN + PELVIS With Contrast IV Amt: 94 ml EXAM: CT Abdomen and Pelvis With Intravenous Contrast CLINICAL HISTORY: Reason for exam: diff abd pain. OTHER: Other Notes: diffuse abd pain , chest pain , sob , confusion , shaking , 94 ml optiray 320 TECHNIQUE: Axial computed tomography images of the abdomen and pelvis with intravenous contrast. CTDI is 28.11 mGy and DLP is 2149.12 mGy-cm. Automated exposure control was utilized for the study. A dose lowering technique was utilized adhering to the principles of ALARA. CONTRAST: Patient received 94 ml of IV contrast COMPARISON: 02/12/2025 FINDINGS: Lung bases: Unremarkable. No mass. No consolidation. ABDOMEN: Liver: There is a nodular liver surface suggesting cirrhosis and enlarged spleen measuring 16.2 cm. There are multiple tortuous collateral veins measuring up to 1.9 cm in diameter which appears to represent a superior mesenteric vein to IVC shunt. The portal vein is very small. Gallbladder and bile ducts: Unremarkable. No calcified stones. No ductal dilation. Pancreas: Unremarkable. No mass. No ductal dilation. Spleen: Unremarkable. No splenomegaly. Adrenals: Unremarkable. No mass. Kidneys and ureters: Unremarkable. No solid mass. No hydronephrosis. Stomach and bowel: See below. PELVIS: Appendix: The appendix is not visible. Bowel loops are nondilated. There are gas fluid levels in the distal small bowel and right colon which is abnormal and suggests small ileus or enteritis. No pneumoperitoneum, free fluid, or abscess. Bladder: The urinary bladder is mostly decompressed but unremarkable. Reproductive: Unremarkable as visualized. ABDOMEN and PELVIS: Intraperitoneal space: See above. Bones/joints: Left hip arthroplasty. No hip or pelvic fracture is seen. Mild degenerative changes in the spine. No acute fracture or subluxation. Soft tissues: Unremarkable. Vasculature: 2.9 cm focal ectasia of the infrarenal abdominal aorta. No aneurysm or dissection. Lymph nodes: Unremarkable. No enlarged lymph nodes. IMPRESSION: 1. The appendix is not visible. Bowel loops are nondilated. There are gas fluid levels in the distal small bowel and right colon which is abnormal and suggests small ileus or enteritis. No pneumoperitoneum, free fluid, or abscess. 2. There is a nodular liver surface suggesting cirrhosis and enlarged spleen measuring 16.2 cm. There are multiple tortuous collateral veins measuring up to 1.9 cm in diameter which appears to represent a superior mesenteric vein to IVC shunt. The portal vein is very small. This is unchanged. No ascites. Electronically signed by: Linden Chang MD 02/22/25 00:06 AM
--- NOTE | 2025-02-22 00:17 | CT Scan Report ---
Exam(s): CT HEAD Without Contrast EXAM: CT Head Without Intravenous Contrast CLINICAL HISTORY: Reason for exam: confused. OTHER: Other Notes: diffuse abd pain , chest pain , sob , confusion , shaking TECHNIQUE: Axial computed tomography images of the head/brain without intravenous contrast. CTDI is 28.11 mGy and DLP is 2149.12 mGy-cm. Automated exposure control was utilized for the study. A dose lowering technique was utilized adhering to the principles of ALARA. COMPARISON: 12/11/2024 FINDINGS: Brain: Mild cerebral atrophy, unchanged. The brain is otherwise unremarkable. No acute large vessel infarct or intracranial hemorrhage is seen. Ventricles: Unremarkable. No ventriculomegaly. Bones/joints: Unremarkable. No acute fracture. Soft tissues: Unremarkable. Sinuses: Unremarkable as visualized. No acute sinusitis. Mastoid air cells: Unremarkable as visualized. No mastoid effusion. IMPRESSION: Mild cerebral atrophy, unchanged. The brain is otherwise unremarkable. No acute large vessel infarct or intracranial hemorrhage is seen. Electronically signed by: Linden Chang MD 02/22/25 00:16 AM
[2025-02-22] MEDS: CEFEPIME 2000MG 2,000 MG/20 ML SYR IV STA (00:26)
[2025-02-22 00:31] LABS: Appearance Urine Clear (Clear); Bacteria Urine Automated None Seen (None Seen); Cast Urine Automated 0-2 /lpf (0-2); Epithelial Cell Urine Auto 0-2 /hpf (0-2); Glucose Urine UA Negative (Negative); RBC Urine Automated 0-2 /hpf (0-2); WBC Urine Automated 0-5 /hpf (0-5)
[2025-02-22] MEDS: ONDANSETRON INJ 2 MG/ML 2 ML VIAL IV STA (00:58)
[2025-02-22] MEDS: SODIUM CHLORIDE 0.9% 500 ML IV ONE (00:59)
[2025-02-22] MEDS: MoRPHine SULFATE 4 MG/ML 1 ML CARP\\VIAL IV STA (00:59)
--- NOTE | 2025-02-22 02:44 | History & Physical Report ---
Date of Service February 22, 2025 Assessment & Plan (1) Acute hepatic encephalopathy: Plan: 59-year-old male with past med history significant for dyslipidemia, hepatic encephalopathy, hypertension, esophageal varices without bleeding, history of CAD, history of TIA, abdominal aortic aneurysm, cirrhosis of liver, GERD, degenerative disc disease, cataracts, peripheral neuropathy, thrombocytopenia, anemia, history of SBO, was brought in because of confusion. Patient seems at dinner today evening began to stare off and have a change in his mentation. And became weak and shaky and complained of pain in the abdomen and legs. His fiance was concerned for sudden change in his mental status and brought him to the hospital. He is on lactulose and he did not take his evening dose of lactulose. His ammonia level is high in the ER. His lactate was elevated on initial labs but on repeat normalized. CT head and CT abdomen pelvis no acute findings. Also patient seems had a brief seizure-like activity per nursing staff in the ER and was loaded with Keppra. Currently patient is drowsy but arousable. He knows that he was confused and that is the reason he was brought to the hospital. Can tell his name. Can tell his age. But could not tell his date of . Knows that he is in the hospital. Knows current year but thinks it is April. Somewhat slow to answer. Says yes to all the questions. Says has headache, back pain, chest pain, abdominal pain, nausea, shortness of breath and cough. Hemodynamics are okay currently. Acute hepatic encephalopathy Confusion Ammonia level 110 CT head, CT of the abdomen pelvis no acute findings ER empirically gave cefepime but no ascites on CT scan. UA is okay. Procalcitonin negative. Will give a dose of lactulose. Continue home lactulose 4 times daily and rifaximin Follow repeat ammonia levels in a.m. Close monitoring telemetry Gentle fluids for 1 L Follow labs GI consult for further recommendations Alcoholic liver cirrhosis Continue home diuretics, lactulose and Xifaxan GERD Continue Protonix Thrombocytopenia Platelets 46 seems around baseline From cirrhosis Will follow labs Lactic acidosis Initial lactate is 5.7 and repeat is 1.7 Questionable seizures Brief seizure-like activity in the ER CT head is okay Was loaded with Keppra by ER For now we will place him on IV Ativan as needed Will follow EEG Neurology consult in a.m. Hyperlipidemia On statin Hypertension Clonidine Will monitor Peripheral neuropathy On gabapentin Depression On Cymbalta Iron deficiency anemia On iron supplements Hemoglobin stable DVT prophylaxis SCDs for now Disposition Telemetry Full code. History of Present Illness Chief Complaint: Confusion Primary Care Provider: Toby Paz MD 59-year-old male with past med history significant for dyslipidemia, hepatic encephalopathy, hypertension, esophageal varices without bleeding, history of CAD, history of TIA, abdominal aortic aneurysm, cirrhosis of liver, GERD, degenerative disc disease, cataracts, peripheral neuropathy, thrombocytopenia, anemia, history of SBO, was brought in because of confusion. Patient seems at dinner today evening began to stare off and have a change in his mentation. And became weak and shaky and complained of pain in the abdomen and legs. His fiance was concerned for sudden change in his mental status and brought him to the hospital. He is on lactulose and he did not take his evening dose of lactulose. His ammonia level is high in the ER. His lactate was elevated on initial labs but on repeat normalized. CT head and CT abdomen pelvis no acute findings. Also patient seems had a brief seizure-like activity per nursing staff in the ER and was loaded with Keppra. Currently patient is drowsy but arousable. He knows that he was confused and that is the reason he was brought to the hospital. Can tell his name. Can tell his age. But could not tell his date of . Knows that he is in the hospital. Knows current year but thinks it is April. Somewhat slow to answer. Says yes to all the questions. Says has headache, back pain, chest pain, abdominal pain, nausea, shortness of breath and cough. Hemodynamics are okay currently. Past medical history. As mentioned above Past surgical history. Colonoscopy. EGD. EGD with endoscopic ultrasound. Laparoscopic cholecystectomy. Reduction of bowel obstruction. Removal of ruptured appendix. Social history. Quit smoking 2016. Smoked 0.1 pack a day for 20 years. No alcohol use currently as per records. No drug use. Family history. Father had dementia. Heart failure. [place]. Stroke. Mother had Parkinson's. Allergies Allergy/AdvReac Type Severity Reaction Status Date / Time bee venom protein (honey bee) Allergy Severe Anaphylaxis--CARRIES Verified 02/21/25 22:48 AN EPIPEN adhesive Allergy Intermediate WOUND Verified 02/21/25 22:48 DRESSING ADHESIVE--RASH Home Medications Medication Instructions Recorded Confirmed Type atorvastatin 20 mg tablet 20 mg PO QAM 04/20/24 02/21/25 History duloxetine 30 mg capsule,delayed 30 mg PO QAM 04/20/24 02/21/25 History release ferrous sulfate 325 mg (65 mg 325 mg PO QAM 04/20/24 02/21/25 History iron) tablet furosemide 40 mg tablet 40 mg PO QAM 04/20/24 02/21/25 History gabapentin 100 mg capsule 100 mg PO TID 04/20/24 02/21/25 History magnesium oxide 400 mg (241.3 mg 400 mg PO BID 04/20/24 02/21/25 History magnesium) tablet pantoprazole 40 mg tablet,delayed 40 mg PO BID 04/20/24 02/21/25 History release (Protonix) rifaximin 550 mg tablet (Xifaxan) 550 mg PO BID 04/20/24 02/21/25 History clonidine HCl 0.1 mg tablet 0.1 mg PO BID 08/18/24 02/21/25 History trazodone 50 mg tablet 100 mg PO HS 08/18/24 02/21/25 History vitamin A 3,000 mcg (10,000 unit) 3,000 mcg PO BID 08/18/24 02/21/25 History capsule albuterol sulfate 90 mcg/actuation 2 inh inhalation Q4H PRN Shortness 11/03/24 02/21/25 History aerosol inhaler Of Breath zinc acetate 50 mg (zinc) capsule 50 mg PO BID 11/03/24 02/21/25 History lactulose 10 gram/15 mL oral 30 ml PO QID #3,000 mL 12/13/24 02/21/25 Rx solution clotrimazole 1 % topical cream 1 applic EXT BID PRN NEEDED 02/12/25 02/21/25 History diclofenac sodium 1 % topical gel 2 g topical BID PRN LEFT LATERAL 02/12/25 02/21/25 History HIP PAIN epinephrine 0.3 mg/0.3 mL 0.3 mg IM DIRECTED PRN Allergic 02/12/25 02/21/25 History injection, auto-injector (EpiPen) Reaction fluoxetine 10 mg capsule 10 mg PO QAM 02/12/25 02/21/25 History oxycodone 5 mg tablet 5 mg PO Q8H PRN Breakthrough Pain 02/12/25 02/21/25 History Past Med/Surg History Problem List (Updated 02/22/25 @ 01:22 by Anderson Justin MD) Elevated lactic acid level (Acute) Enteritis (Acute) Diffuse abdominal pain (Acute) Altered mental status (Acute) Chest pain (Acute) Portal hypertension End stage liver disease Thrombocytopenia (Acute) Chest pain (Acute) Acute hepatic encephalopathy (Acute) Traumatic open wound of right lower leg with delayed healing (Acute) Hyperammonemia (Acute) Medical History Migraine Hx SBO Alcoholic cirrhosis Dilated aortic root Insomnia H/O angioedema ongoing, follows with allergy Avascular necrosis of femur GERD (gastroesophageal reflux disease) Depression Hepatic encephalopathy Basilar artery aneurysm Left rib fracture History of ascites Hypertension Hyperlipidemia Surgical History History of total left hip replacement History of esophagogastroduodenoscopy (EGD) History of colonoscopy History of bowel resection 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 History of appendectomy History of tooth extraction Family History Father Hearing loss Hypertension Stroke Heart disease Other No pertinent family history in first degree relatives Denies family history of No family history of adverse response to anesthesia No family history of bleeding disorder Allergies Asthma Social History Smoking Status: Unknown if ever smoked Tobacco Type: Cigarettes Cigarettes Per Day: 1; Second Hand Exposure: No; Do You Dip or Chew Tobacco: No; Hx Alcohol Use: No Hx Substance Use: No Preferred Language: Kazakh Communication Ability: Effective Peach Grower Required: No Beliefs That Will Affect Care: None marital status: Life Partner marital status details: fiance Current Living Situation: Significant Other Current Living Situation Comment: LIVES WITH GIRLFRIEND current occupational status: 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 Head- atraumatic Eyes- PERRL. ENT- oropharynx clear Neck- supple, no JVD. Lungs- clear to auscultation no wheezing or crackles Heart- regular rhythm; no murmur, no gallop. Abdomen- normal bowel sounds, soft, nontender, no distension Extremities- no pretibial edema, no erythema seen Neuro- Drowsy but arousable oriented x 3; PERRL,slow to answer no facial palsy; no dysarthria; obeys simple commands, moves extremities Results & Data Results & Data Vital Signs (Past 12 Hours) Vital Signs Temp Pulse Resp BP Pulse Ox O2 Del Method 02/22/25 02:07 76 02/22/25 01:30 72 19 97 02/22/25 01:30 118/63 02/22/25 01:30 118/63 02/22/25 01:30 118/63 02/22/25 01:30 118/63 02/22/25 01:30 118/63 02/22/25 01:00 128/77 02/22/25 01:00 128/77 02/22/25 01:00 128/77 02/22/25 01:00 128/77 02/22/25 01:00 128/77 02/22/25 01:00 74 22 97 02/22/25 00:30 84 19 96 02/22/25 00:30 106/79 02/22/25 00:30 106/79 02/22/25 00:30 106/79 02/22/25 00:30 106/79 02/22/25 00:30 106/79 02/22/25 00:22 145/78 H 02/22/25 00:22 145/78 H 02/22/25 00:22 145/78 H 02/22/25 00:22 145/78 H 02/22/25 00:22 145/78 H 02/22/25 00:21 67 21 97 02/22/25 00:00 73 20 97 02/21/25 23:48 74 17 98 02/21/25 23:00 77 30 H 99 02/21/25 22:30 69 21 156/83 H 99 Room Air 02/21/25 22:24 Room Air 02/21/25 22:18 76 19 156/87 H 98 02/21/25 22:18 98 Room Air 02/21/25 22:17 80 02/21/25 22:07 36.6 C 77 19 155/84 H 98 Room Air Diagnostic Findings Laboratory Results WBC 5.84 K/ul (4.8-10.8) 02/21/25 22:24 RBC 4.61 M/uL (4.70-6.10) L 02/21/25 22:24 Hgb 15.7 g/dL (14.0-18.0) 02/21/25 22:24 Hct 43.8 % (42.0-52.0) 02/21/25 22:24 MCV 95.0 fL (80.0-100.0) 02/21/25 22:24 MCH 34.1 pg (25.0-34.0) H 02/21/25 22: MCHC 35.8 g/dL (32.0-36.0) 02/21/25 22: RDW Std Deviation 55.9 fL (36.4-46.3) H 02/21/25 22: RDW Coeff of Fabiola 15.9 % (11.5-14.5) H 02/21/25 22:24 Plt Count 46 K/uL (130-400) L 02/21/25 22:24 MPV 12.2 fL (9.4-12.4) 02/21/25 22: Immature Gran % (Auto) 0.2 % 02/21/25 22: Neut % (Auto) 54.2 % 02/21/25 22: Lymph % (Auto) 21.1 % 02/21/25: [place] % (Auto) 13.5 % 02/21/25: Eos % (Auto) 10.1 % 02/21/25 22: Baso % (Auto) 0.9 % 02/21/25 22:24 Neut # (Auto) 3.17 K/uL (1.40-6.50) 02/21/25 22: Lymph # (Auto) 1.23 K/uL (1.20-3.40) 02/21/25 22:24 [place] # (Auto) 0.79 K/uL (0.11-0.59) H 02/21/25 22:24 Eos # (Auto) 0.59 K/uL (0.00-0.50) H 02/21/25 22:24 Baso # (Auto) 0.05 K/uL (0.00-0.20) 02/21/25 22:24 Immature Gran # (Auto) 0.01 K/uL (0.01-0.20) 02/21/25 22:24 PT 13.3 Seconds (9.0-12.0) H 02/21/25 22:24 INR 1.3 (0.9-1.1) H 02/21/25 22:24 APTT 31 Seconds (21-31) 02/21/25 22:24 PTT Ratio 1.1 02/21/25 22:24 VBG pH 7.31 (7.36-7.41) L 02/21/25 23:03 VBG pCO2 42 mmHg (38-50) 02/21/25 23:03 VBG pO2 30 mmHg 02/21/25 23:03 VBG HCO3 21 mmol/L 02/21/25 23:03 VBG O2 Saturation < 60.0 % 02/21/25 23:03 VBG Base Excess -5.0 mEq/L 02/21/25 23:03 Sodium 140 mmol/L (136-145) 02/21/25 22:24 Potassium 3.7 mmol/L (3.5-5.1) 02/21/25 22:24 Chloride 109 mmol/L (98-107) H 02/21/25 22:24 Carbon Dioxide 23 mmol/L (21-32) 02/21/25 22:24 Anion Gap 8 (3-11) 02/21/25 22:24 BUN 11 mg/dl (6-23) 02/21/25 22:24 Creatinine 0.91 mg/dl (0.6-1.4) 02/21/25 22:24 Est Cr Clr Drug Dosing Not Reportable 02/21/25 22:24 eGFR 96.49 02/21/25 22:24 BUN/Creatinine Ratio 12.1 (10-20) 02/21/25 22:24 Glucose 103 mg/dl (70-99(Fasting)) H 02/21/25 22:24 Lactate 1.7 mmol/L (0.4-2.0) 02/22/25 01:25 Calcium 8.6 mg/dl (8.6-10.3) 02/21/25 22:24 Magnesium 1.9 mg/dl (1.7-2.4) 02/21/25 22:24 Total Bilirubin 1.9 mg/dl (0.2-1.0) H 02/21/25 22:24 AST 70 U/L (13-39) H 02/21/25 22:24 ALT 33 U/L (7-52) 02/21/25 22:24 Alkaline Phosphatase 229 U/L (34-104) H 02/21/25 22:24 Ammonia 110.0 umol/L (18-72) H 02/21/25 23:18 Troponin I High Sens 6.6 pg/ml (0-20) 02/21/25 22:24 Total Protein 6.8 gm/dl (6.0-8.3) 02/21/25 22:24 Albumin 3.5 gm/dl (3.4-5.0) 02/21/25 22:24 Globulin 3.3 gm/dl (2.5-4.0) 02/21/25 22:24 Albumin/Globulin Ratio 1.1 (0.9-2) 02/21/25 22:24 Procalcitonin 0.06 ng/ml (0-0.5) 02/21/25 22:24 TSH 2.108 uIu/ml (0.300-4.500) 02/21/25 22:24 Urine Color Yellow 02/21/25 23:30 Urine Appearance Clear (Clear) 02/21/25 23: Urine pH 6.5 (4.5-7.5) 02/21/25 23:30 Ur Specific [place] 1.010 (1.000-1.030) 02/21/25 23:30 Urine Protein Negative (Negative) 02/21/25 23: Urine Glucose (UA) Negative (Negative) 02/21/25 23: Urine Ketones Negative (Negative) 02/21/25 23: Urine Blood Negative (Negative) 02/21/25 23: Urine Nitrite Negative (Negative) 02/21/25 23: Urine Bilirubin Negative (Negative) 02/21/25 23: Urine Urobilinogen Positive (Negative) H 02/21/25 23:30 Ur Leukocyte Esterase 1+ (Negative) H 02/21/25 23: Urine WBC (Auto) 0-5 /hpf (0-5) 02/21/25 23:30 Urine RBC (Auto) 0-2 /hpf (0-2) 02/21/25 23:30 U Hyaline Cast (Auto) 0-2 /lpf (0-2) 02/21/25 23:30 U Epithel Cells (Auto) 0-2 /hpf (0-2) 02/21/25 23:30 Urine Bacteria (Auto) None Seen (None Seen) 02/21/25 23:30 Urine Comment 02/21/25 23:30 Ethyl Alcohol mg/dL < 10.0 mg/dl (<10.0) 02/21/25 23:03 Adenovirus (PCR) Not Detected (NotDetected) 02/21/25 22:24 B. pertussis DNA (PCR) Not Detected (NotDetected) 02/21/25 22:24 B.parapertussis DNA PCR Not Detected (NotDetected) 02/21/25 22:24 C. pneumoniae DNA (PCR) Not Detected (NotDetected) 02/21/25 22:24 Coronavirus OC43 (PCR) Not Detected (NotDetected) 02/21/25 22:24 Coronavirus HKU1 (PCR) Not Detected (NotDetected) 02/21/25 22:24 Coronavirus 229E (PCR) Not Detected (NotDetected) 02/21/25 22:24 SARS-CoV-2 (PCR) Not Detected (NotDetected) 02/21/25 22:24 Coronavirus NL63 (PCR) Not Detected (NotDetected) 02/21/25 22:24 Human Metapneumovir PCR Not Detected (NotDetected) 02/21/25 22:24 Influenza Type A (PCR) Not Detected (NotDetected) 02/21/25 22:24 Influenza Type B (PCR) Not Detected (NotDetected) 02/21/25 22:24 M. pneumoniae (PCR) Not Detected (NotDetected) 02/21/25 22:24 Parainfluenza 1 (PCR) Not Detected (NotDetected) 02/21/25 22:24 Parainfluenza 2 (PCR) Not Detected (NotDetected) 02/21/25 22:24 Parainfluenza 3 (PCR) Not Detected (NotDetected) 02/21/25 22:24 Parainfluenza 4 (PCR) Not Detected (NotDetected) 02/21/25 22:24 RSV (PCR) Not Detected (NotDetected) 02/21/25 22:24 Entero/Rhino (PCR) Not Detected (NotDetected) 02/21/25 22:24 Impressions Abdomen/Pelvis CT 02/21/25 22:23 Exam(s): CT ABDOMEN + PELVIS With Contrast IV Amt: 94 ml EXAM: CT Abdomen and Pelvis With Intravenous Contrast CLINICAL HISTORY: Reason for exam: diff abd pain. OTHER: Other Notes: diffuse abd pain , chest pain , sob , confusion , shaking , 94 ml optiray 320 TECHNIQUE: Axial computed tomography images of the abdomen and pelvis with intravenous contrast. CTDI is 28.11 mGy and DLP is 2149.12 mGy-cm. Automated exposure control was utilized for the study. A dose lowering technique was utilized adhering to the principles of ALARA. CONTRAST: Patient received 94 ml of IV contrast COMPARISON: 02/12/2025 FINDINGS: Lung bases: Unremarkable. No mass. No consolidation. ABDOMEN: Liver: There is a nodular liver surface suggesting cirrhosis and enlarged spleen measuring 16.2 cm. There are multiple tortuous collateral veins measuring up to 1.9 cm in diameter which appears to represent a superior mesenteric vein to IVC shunt. The portal vein is very small. Gallbladder and bile ducts: Unremarkable. No calcified stones. No ductal dilation. Pancreas: Unremarkable. No mass. No ductal dilation. Spleen: Unremarkable. No splenomegaly. Adrenals: Unremarkable. No mass. Kidneys and ureters: Unremarkable. No solid mass. No hydronephrosis. Stomach and bowel: See below. PELVIS: Appendix: The appendix is not visible. Bowel loops are nondilated. There are gas fluid levels in the distal small bowel and right colon which is abnormal and suggests small ileus or enteritis. No pneumoperitoneum, free fluid, or abscess. Bladder: The urinary bladder is mostly decompressed but unremarkable. Reproductive: Unremarkable as visualized. ABDOMEN and PELVIS: Intraperitoneal space: See above. Bones/joints: Left hip arthroplasty. No hip or pelvic fracture is seen. Mild degenerative changes in the spine. No acute fracture or subluxation. Soft tissues: Unremarkable. Vasculature: 2.9 cm focal ectasia of the infrarenal abdominal aorta. No aneurysm or dissection. Lymph nodes: Unremarkable. No enlarged lymph nodes. IMPRESSION: 1. The appendix is not visible. Bowel loops are nondilated. There are gas fluid levels in the distal small bowel and right colon which is abnormal and suggests small ileus or enteritis. No pneumoperitoneum, free fluid, or abscess. 2. There is a nodular liver surface suggesting cirrhosis and enlarged spleen measuring 16.2 cm. There are multiple tortuous collateral veins measuring up to 1.9 cm in diameter which appears to represent a superior mesenteric vein to IVC shunt. The portal vein is very small. This is unchanged. No ascites. Electronically signed by: Linden Chang MD 02/22/25 00:[address] 02/21/25 22:23 Exam(s): CT HEAD Without Contrast EXAM: CT Head Without Intravenous Contrast CLINICAL HISTORY: Reason for exam: confused. OTHER: Other Notes: diffuse abd pain , chest pain , sob , confusion , shaking TECHNIQUE: Axial computed tomography images of the head/brain without intravenous contrast. CTDI is 28.11 mGy and DLP is 2149.12 mGy-cm. Automated exposure control was utilized for the study. A dose lowering technique was utilized adhering to the principles of ALARA. COMPARISON: 12/11/2024 FINDINGS: Brain: Mild cerebral atrophy, unchanged. The brain is otherwise unremarkable. No acute large vessel infarct or intracranial hemorrhage is seen. Ventricles: Unremarkable. No ventriculomegaly. Bones/joints: Unremarkable. No acute fracture. Soft tissues: Unremarkable. Sinuses: Unremarkable as visualized. No acute sinusitis. Mastoid air cells: Unremarkable as visualized. No mastoid effusion. IMPRESSION: Mild cerebral atrophy, unchanged. The brain is otherwise unremarkable. No acute large vessel infarct or intracranial hemorrhage is seen. Electronically signed by: Linden Chang MD 02/22/25 00:16 AM Chest X-Ray 02/21/25 22:24 Exam(s): XR CXR 1 VIEW EXAM: XR Chest, 1 View CLINICAL HISTORY: Reason for exam: weakness. TECHNIQUE: Frontal view of the chest. COMPARISON: 02/12/2025 FINDINGS: Lungs: Lungs are well inflated and clear. No infiltrate or consolidation is seen. Pleural space: Unremarkable. No pneumothorax. Heart: The cardiac silhouette is mildly enlarged, unchanged. Mediastinum: Unremarkable. Normal mediastinal contour. Bones/joints: Unremarkable. No acute fracture. Upper abdomen: Unremarkable as visualized. No pneumoperitoneum under the diaphragm. IMPRESSION: 1. The cardiac silhouette is mildly enlarged, unchanged. 2. Lungs are well inflated and clear. No infiltrate or consolidation is seen. Electronically signed by: Linden Chang MD 02/21/25 22:58 PM ECG Additional Comments: ECG. Normal sinus rhythm rate 77. QTc 482. No significant changes found. Code Status & VTE Plan VTE Prophylaxis Plan VTE Prophylaxis will be ordered: Yes
[2025-02-22] MEDS ORDERED: ONDANSETRON INJ 2 MG/ML 2 ML VIAL IV PRN (03:42)
[2025-02-22] MEDS ORDERED: LORazepam Inj 1 MG in SYRINGE 0.5 ML IV PRN (03:42)
[2025-02-22] MEDS ORDERED: ALBUTEROL HFA 8 GM INHALER INH PRN (03:42)
[2025-02-22] MEDS ORDERED: EPINEPHrine INJ 1 MG/ML AMP IM PRN (05:25)
[2025-02-22] MEDS: LACTULOSE SYRUP 20 GM/30 ML UDC PO STA (05:35)
[2025-02-22] MEDS: SODIUM CHLORIDE 0.9% 1,000 ML IV SCH (05:36)
[2025-02-22 07:04] LABS: Hematocrit (blood only) 41.1 % (42.0-52.0); Hemoglobin 14.5 g/dL (14.0-18.0); Immature Granulocytes # (auto) 0.01 K/uL (0.01-0.20); Immature Granulocytes % (auto) 0.2 %; Mean Corpuscular Hemoglobin 33.8 pg (25.0-34.0); Mean Corpuscular Volume 95.8 fL (80.0-100.0); Platelet Count 37 K/uL (130-400); RDW Standard Deviation 55.6 fL (36.4-46.3); Red Blood Count 4.29 M/uL (4.70-6.10); White Blood Count 4.43 K/ul (4.8-10.8)
[2025-02-22 07:29] LABS: Alanine Aminotransferase 26.0 U/L (7-52); Albumin Level 3.2 gm/dl (3.4-5.0); Alkaline Phosphatase 156.0 U/L (34-104); Anion Gap 5.0 (3-11); Bilirubin,Total 1.7 mg/dl (0.2-1.0); Blood Urea Nitrogen 10.0 mg/dl (6-23); Calcium 8.3 mg/dl (8.6-10.3); Carbon Dioxide 23.0 mmol/L (21-32); Chloride 115.0 mmol/L (98-107); Creatinine Clr Calc Pharmacy 107.6 ml/min; Glucose 100.0 mg/dl (70-99(Fasting)); Magnesium 1.9 mg/dl (1.7-2.4); Potassium 4.0 mmol/L (3.5-5.1); Sodium 143.0 mmol/L (136-145); Total Protein 5.8 gm/dl (6.0-8.3)
[2025-02-22] MEDS ORDERED: FERROUS SULFATE 325 MG TAB PO SCH (09:00)
[2025-02-22] MEDS: MAGNESIUM OXIDE 400 MG TAB PO SCH (09:20)
[2025-02-22] MEDS: GABAPENTIN 100 MG CAP PO SCH ×2 (09:20→19:40)
[2025-02-22] MEDS: ATORVASTATIN 20 MG TAB PO SCH (09:20)
[2025-02-22] MEDS: FUROSEMIDE 40 MG TAB PO SCH (09:21)
[2025-02-22] MEDS: LACTULOSE SYRUP 20 GM/30 ML UDC PO SCH ×2 (09:21→13:25)
[2025-02-22] MEDS: LACTULOSE 200GM/700ML WTR ENEMA PR SCH (09:47)
[2025-02-22] MEDS: ZINC SULFATE 220 MG CAPSULE PO SCH (12:12)
[2025-02-22] MEDS: SACCHAROMYCES BOULARDII 250 MG CAP PO SCH (12:13)
--- NOTE | 2025-02-22 12:16 | Communication Note ---
Patient seen and examined at bedside. Patient slightly confused but doing well today. States does not remember how he got here. States he does not remember any shaking episodes. States he needs transplant and has transplant eval in less than a month. On exam, patient with slightly slurred speech, asterixis, mild jaundice of skin and eyes. No leukocytosis, creatinine at baseline. Ammonia very high at 134. CT abdomen/pelvis with mild ileus vs. enteritis. Presentation consistent with hepatic encephalopathy possibly triggered by constipation or enteritis. Increase lactulose, continue rifaxamin, start zinc and saccromyces for hepatic encephalopathy. Increase LR rate as well given patient appears slightly dry. Neurology consult given shaking episode in ED and home report of shaking as well. Date of Service: February 22, 2025
--- NOTE | 2025-02-22 16:01 | Neurology Consultation ---
Date of Consultation February 22, 2025 Assessment & Plan (1) Seizure-like activity: This was an actual seizure or were anxiety related however per the description with postictal confusion it does sound like a true seizure. MRI reviewed and showed no acute changes. EEG is still pending Plan Agree with continuation of Keppra at 500 mg twice daily. For headaches consider increasing gabapentin to 200 mg 3 times daily. Supportive care and treatment of hyperammonemia. Follow-up with outpatient neurology to consider continuation or discontinuation of Keppra. Telehealth Consultation Telehealth Information Telehealth Information: I performed this visit using a real-time telehealth connection between my location and the patients originating location ([facility]). After connecting through interactive tele-video, patient was identified by name and date of and/or wristband check.Patient (or authorized healthcare help desk representative) was informed that this was a telemedicine visit and it was being conducted confidentially over secure lines. My office door was closed and no one else was present in the room with me.Patient (or authorized healthcare help desk representative) provided consent to proceed with the visit, expressed an understanding of privacy and security of the telemedicine visit, and gave permission to have a hospital help desk representative in the room in order to assist with the visit and to conduct portions of the visit, as needed. I informed the patient (or authorized healthcare help desk representative) that I reviewed their record and presented the opportunity for them to ask any questions regarding the visit today. The patient agreed to participate. History of Present Illness Reason for Consultation: Headaches Requesting Physician: Henry Faria MD Attending Physician: Henry Faria MD History of Present Illness Mauro Gutierrez is 59 Y.O male patient with a PMH of liver cirrhosis, transplant candidate , frequent hyperammonemia,migraines and chronic aches and pains . The patient was not feeling well yesterday. He has skipped a dose of the lactulose , in ED his ammonia level was high and apparently he had an event where he was holding to the rails and started shaking, the girlfriend describes that he was looking up at the ceiling with his head his arms and legs were shaking. That this was related to seizure and that happened 2 or 3 times after which she was unresponsive and confused. The patient was started on Keppra. Today he reports slight headaches, he still feels off does not feel right, feels tired all over. He denies having any further seizure events. Was asking about the time of his liver transplant. He takes Cymbalta and gabapentin and uses as needed Tylenol for headaches Allergies Allergy/AdvReac Type Severity Reaction Status Date / Time bee venom protein (honey bee) Allergy Severe Anaphylaxis--CARRIES Verified 02/21/25 22:48 AN EPIPEN adhesive Allergy Intermediate WOUND Verified 02/21/25 22:48 DRESSING ADHESIVE--RASH Home Medications Medication Instructions Recorded Confirmed Type atorvastatin 20 mg tablet 20 mg PO QAM 04/20/24 02/21/25 History duloxetine 30 mg capsule,delayed 30 mg PO QAM 04/20/24 02/21/25 History release ferrous sulfate 325 mg (65 mg 325 mg PO QAM 04/20/24 02/21/25 History iron) tablet furosemide 40 mg tablet 40 mg PO QAM 04/20/24 02/21/25 History gabapentin 100 mg capsule 100 mg PO TID 04/20/24 02/21/25 History magnesium oxide 400 mg (241.3 mg 400 mg PO BID 04/20/24 02/21/25 History magnesium) tablet pantoprazole 40 mg tablet,delayed 40 mg PO BID 04/20/24 02/21/25 History release (Protonix) rifaximin 550 mg tablet (Xifaxan) 550 mg PO BID 04/20/24 02/21/25 History clonidine HCl 0.1 mg tablet 0.1 mg PO BID 08/18/24 02/21/25 History trazodone 50 mg tablet 100 mg PO HS 08/18/24 02/21/25 History vitamin A 3,000 mcg (10,000 unit) 3,000 mcg PO BID 08/18/24 02/21/25 History capsule albuterol sulfate 90 mcg/actuation 2 inh inhalation Q4H PRN Shortness 11/03/24 02/21/25 History aerosol inhaler Of Breath zinc acetate 50 mg (zinc) capsule 50 mg PO BID 11/03/24 02/21/25 History lactulose 10 gram/15 mL oral 30 ml PO QID #3,000 mL 12/13/24 02/21/25 Rx solution clotrimazole 1 % topical cream 1 applic EXT BID PRN NEEDED 02/12/25 02/21/25 History diclofenac sodium 1 % topical gel 2 g topical BID PRN LEFT LATERAL 02/12/25 02/21/25 History HIP PAIN epinephrine 0.3 mg/0.3 mL 0.3 mg IM DIRECTED PRN Allergic 02/12/25 02/21/25 History injection, auto-injector (EpiPen) Reaction fluoxetine 10 mg capsule 10 mg PO QAM 02/12/25 02/21/25 History oxycodone 5 mg tablet 5 mg PO Q8H PRN Breakthrough Pain 02/12/25 02/21/25 History Patient History Medical History Migraine Hx SBO Alcoholic cirrhosis Dilated aortic root Insomnia H/O angioedema ongoing, follows with allergy Avascular necrosis of femur GERD (gastroesophageal reflux disease) Depression Hepatic encephalopathy Basilar artery aneurysm Left rib fracture History of ascites Hypertension Hyperlipidemia Surgical History History of total left hip replacement History of esophagogastroduodenoscopy (EGD) History of colonoscopy History of bowel resection 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 History of appendectomy History of tooth extraction Family History Father Hearing loss Hypertension Stroke Heart disease Other No pertinent family history in first degree relatives Denies family history of No family history of adverse response to anesthesia No family history of bleeding disorder Allergies Asthma Social History Smoking Status: Unknown if ever smoked Tobacco Type: Cigarettes Cigarettes Per Day: 1; Second Hand Exposure: No; Do You Dip or Chew Tobacco: No; Hx Alcohol Use: No Hx Substance Use: No Preferred Language: Indian Communication Ability: Effective Supervisor Partial Denture Department Required: No Beliefs That Will Affect Care: None marital status: Life Partner marital status details: fiance Current Living Situation: Significant Other Current Living Situation Comment: LIVES WITH GIRLFRIEND current occupational status: 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 How many Children do You have: 0 Other Information That Helps Us Care for You: No Feels Safe at Home: Yes Safety Concerns: Feels Safe At This Time Assistive Devices: Cane and Glasses Review of Systems Denies other complaints Physical Exam General Constitutional: Appearance normally developed Head and face: normocephalic and atraumatic Eyes: no ptosis, no anisocoria, and no dysconjugate gaze Respiratory: normal effort Cardiovascular: regular rhythm and regular rate Abdomen: non distended Skin: no rashes, lesions, or ulcers noted Psychiatric: normal judgement and insight, normal mood, and normal affect NEUROLOGIC EXAMINATION: Mental Status:alert, oriented to time, place, person, normal recent memory, normal remote memory, normal attention span, normal concentration, normal language and normal fund of knowledge Cranial Nerves: CN 2 - no visual defect on confrontation and pupils round, equal, reactive to light CN 3, 4, 6 - extra-ocular movements intact and no nystagmus CN 5 - facial sensation intact CN 7 - no facial asymmetry CN 8 - intact hearing CN 9, 10 - palate symmetric, normal gag CN 11 - good shoulder shrug CN 12 - tongue midline MOTOR: Strength was at least antigravity throughout, Pronator drift was absent and There were no abnormal movements SENSATION: intact and symmetric to pinprick, light touch, vibration and joint position GAIT: stable, no ataxia and can perform tandem walking COORDINATION: no ataxia with finger to nose testing and heel to modi testing REFLEXES: cannot assess over telemedicine Results & Data Vital Signs (Past 12 Hours) Vital Signs Temp Pulse Pulse Resp BP Pulse Ox O2 Del Method 02/22/25 15:00 88 02/22/25 11:19 36.6 C 73 18 122/78 95 Room Air 02/22/25 09:00 Room Air 02/22/25 07:49 36.6 C 75 20 114/75 96 Room Air 02/22/25 07:00 71 02/22/25 04:33 80 Laboratory Results Laboratory Results - last 24 hr 02/21/25 02/21/25 02/21/25 22:24 23:03 23:18 WBC 5.84 RBC 4.61 L Hgb 15.7 Hct 43.8 MCV 95.0 MCH 34.1 H MCHC 35.8 RDW Std Deviation 55.9 H RDW Coeff of Fabiola 15.9 H Plt Count 46 L MPV 12.2 Immature Gran % (Auto) 0.2 Neut % (Auto) 54.2 Lymph % (Auto) 21.1 [place] % (Auto) 13.5 Eos % (Auto) 10.1 Baso % (Auto) 0.9 Neut # (Auto) 3.17 Lymph # (Auto) 1.23 [place] # (Auto) 0.79 H Eos # (Auto) 0.59 H Baso # (Auto) 0.05 Immature Gran # (Auto) 0.01 PT 13.3 H INR 1.3 H APTT 31 PTT Ratio 1.1 VBG pH 7.31 L VBG pCO2 42 VBG pO2 30 VBG HCO3 21 VBG O2 Saturation < 60.0 VBG Base Excess -5.0 Sodium 140 Potassium 3.7 Chloride 109 H Carbon Dioxide 23 Anion Gap 8 BUN 11 Creatinine 0.91 Est Cr Clr Drug Dosing Not Reportable eGFR 96.49 BUN/Creatinine Ratio 12.1 Glucose 103 H Lactate 5.7 H* Calcium 8.6 Magnesium 1.9 Total Bilirubin 1.9 H Direct Bilirubin AST 70 H ALT 33 Alkaline Phosphatase 229 H Ammonia TNP 110.0 H Troponin I High Sens 6.6 Total Protein 6.8 Albumin 3.5 Globulin 3.3 Albumin/Globulin Ratio 1.1 Procalcitonin 0.06 TSH 2.108 Urine Color Urine Appearance Urine pH Ur Specific [place] Urine Protein Urine Glucose (UA) Urine Ketones Urine Blood Urine Nitrite Urine Bilirubin Urine Urobilinogen Ur Leukocyte Esterase Urine WBC (Auto) Urine RBC (Auto) U Hyaline Cast (Auto) U Epithel Cells (Auto) Urine Bacteria (Auto) Urine Comment Ethyl Alcohol mg/dL < 10.0 Adenovirus (PCR) Not Detected B. pertussis DNA (PCR) Not Detected B.parapertussis DNA PCR Not Detected C. pneumoniae DNA (PCR) Not Detected Coronavirus OC43 (PCR) Not Detected Coronavirus HKU1 (PCR) Not Detected Coronavirus 229E (PCR) Not Detected SARS-CoV-2 (PCR) Not Detected Coronavirus NL63 (PCR) Not Detected Human Metapneumovir PCR Not Detected Influenza Type A (PCR) Not Detected Influenza Type B (PCR) Not Detected M. pneumoniae (PCR) Not Detected Parainfluenza 1 (PCR) Not Detected Parainfluenza 2 (PCR) Not Detected Parainfluenza 3 (PCR) Not Detected Parainfluenza 4 (PCR) Not Detected RSV (PCR) Not Detected Entero/Rhino (PCR) Not Detected 02/21/25 02/22/25 02/22/25 23:30 01:25 06:49 WBC 4.43 L RBC 4.29 L Hgb 14.5 Hct 41.1 L MCV 95.8 MCH 33.8 MCHC 35.3 RDW Std Deviation 55.6 H RDW Coeff of Fabiola 15.8 H Plt Count 37 L MPV 12.3 Immature Gran % (Auto) 0.2 Neut % (Auto) 40.9 Lymph % (Auto) 26.0 [place] % (Auto) 14.4 Eos % (Auto) 17.4 Baso % (Auto) 1.1 Neut # (Auto) 1.81 Lymph # (Auto) 1.15 L [place] # (Auto) 0.64 H Eos # (Auto) 0.77 H Baso # (Auto) 0.05 Immature Gran # (Auto) 0.01 PT INR APTT PTT Ratio VBG pH VBG pCO2 VBG pO2 VBG HCO3 VBG O2 Saturation VBG Base Excess Sodium 143 Potassium 4.0 Chloride 115 H Carbon Dioxide 23 Anion Gap 5 BUN 10 Creatinine 0.86 Est Cr Clr Drug Dosing 107.6 eGFR 99.13 BUN/Creatinine Ratio 11.6 Glucose 100 H Lactate 1.7 Calcium 8.3 L Magnesium 1.9 Total Bilirubin 1.7 H Direct Bilirubin 0.4 H AST 51 H ALT 26 Alkaline Phosphatase 156 H Ammonia 134.0 H Troponin I High Sens Total Protein 5.8 L Albumin 3.2 L Globulin Albumin/Globulin Ratio Procalcitonin TSH Urine Color Yellow Urine Appearance Clear Urine pH 6.5 Ur Specific [place] 1.010 Urine Protein Negative Urine Glucose (UA) Negative Urine Ketones Negative Urine Blood Negative Urine Nitrite Negative Urine Bilirubin Negative Urine Urobilinogen Positive H Ur Leukocyte Esterase 1+ H Urine WBC (Auto) 0-5 Urine RBC (Auto) 0-2 U Hyaline Cast (Auto) 0-2 U Epithel Cells (Auto) 0-2 Urine Bacteria (Auto) None Seen Urine Comment Ethyl Alcohol mg/dL Adenovirus (PCR) B. pertussis DNA (PCR) B.parapertussis DNA PCR C. pneumoniae DNA (PCR) Coronavirus OC43 (PCR) Coronavirus HKU1 (PCR) Coronavirus 229E (PCR) SARS-CoV-2 (PCR) Coronavirus NL63 (PCR) Human Metapneumovir PCR Influenza Type A (PCR) Influenza Type B (PCR) M. pneumoniae (PCR) Parainfluenza 1 (PCR) Parainfluenza 2 (PCR) Parainfluenza 3 (PCR) Parainfluenza 4 (PCR) RSV (PCR) Entero/Rhino (PCR) Diagnostic Findings MRI of the brain was reviewed and shows no ischemic infarcts no evidence of toxic edema. No acute abnormalities CT scan of the head shows no acute bleeds or abnormalities. Medications Administered Home Medications Medication Instructions Recorded Confirmed Last Taken atorvastatin 20 mg tablet 20 mg PO QAM 04/20/24 02/21/25 02/21/25 duloxetine 30 mg capsule,delayed 30 mg PO QAM 04/20/24 02/21/25 02/21/25 release ferrous sulfate 325 mg (65 mg 325 mg PO QAM 04/20/24 02/21/25 02/21/25 iron) tablet furosemide 40 mg tablet 40 mg PO QAM 04/20/24 02/21/25 02/21/25 gabapentin 100 mg capsule 100 mg PO TID 04/20/24 02/21/25 02/21/25 14:00 magnesium oxide 400 mg (241.3 mg 400 mg PO BID 04/20/24 02/21/25 02/21/25 08:00 magnesium) tablet pantoprazole 40 mg tablet,delayed 40 mg PO BID 04/20/24 02/21/25 02/21/25 08:00 release (Protonix) rifaximin 550 mg tablet (Xifaxan) 550 mg PO BID 04/20/24 02/21/25 02/21/25 08:00 clonidine HCl 0.1 mg tablet 0.1 mg PO BID 08/18/24 02/21/25 02/21/25 08:00 trazodone 50 mg tablet 100 mg PO HS 08/18/24 02/21/25 02/20/25 vitamin A 3,000 mcg (10,000 unit) 3,000 mcg PO BID 08/18/24 02/21/25 02/21/25 08:00 capsule albuterol sulfate 90 mcg/actuation 2 inh inhalation Q4H PRN Shortness 11/03/24 02/21/25 Unknown aerosol inhaler Of Breath zinc acetate 50 mg (zinc) capsule 50 mg PO BID 11/03/24 02/21/25 02/21/25 08:00 lactulose 10 gram/15 mL oral 30 ml PO QID #3,000 mL 12/13/24 02/21/25 02/21/25 18:00 solution clotrimazole 1 % topical cream 1 applic EXT BID PRN NEEDED 02/12/25 02/21/25 Unknown diclofenac sodium 1 % topical gel 2 g topical BID PRN LEFT LATERAL 02/12/25 02/21/25 Unknown HIP PAIN epinephrine 0.3 mg/0.3 mL 0.3 mg IM DIRECTED PRN Allergic 02/12/25 02/21/25 Unknown injection, auto-injector (EpiPen) Reaction fluoxetine 10 mg capsule 10 mg PO QAM 02/12/25 02/21/25 02/21/25 oxycodone 5 mg tablet 5 mg PO Q8H PRN Breakthrough Pain 02/12/25 02/21/25 Unknown Active Medications Generic Name Dose Route Start Last Admin Trade Name Freq PRN Reason Stop Dose Admin Atorvastatin Calcium 20 mg 02/22/25 09:00 02/22/25 09:20 Atorvastatin 20 Mg Tab PO 03/24/25 08:59 20 mg QAM ANNMARIE Administration Clonidine HCl 0.1 mg 02/22/25 09:00 02/22/25 09:20 Clonidine Hcl 0.1 Mg Tab PO 03/24/25 08:59 0.1 mg BID ANNMARIE Administration Duloxetine HCl 30 mg 02/22/25 09:00 02/22/25 09:20 Duloxetine Hcl 30 Mg Cap PO 03/24/25 08:59 30 mg QAM ANNMARIE Administration Fluoxetine HCl 10 mg 02/22/25 09:00 02/22/25 09:20 Fluoxetine Hcl 10 Mg Cap PO 03/24/25 08:59 10 mg QAM ANNMARIE Administration Furosemide 40 mg 02/22/25 09:00 02/22/25 09:21 Furosemide 40 Mg Tab PO 03/24/25 08:59 40 mg QAM ANNMARIE Administration Gabapentin 100 mg 02/22/25 09:00 02/22/25 13:25 Gabapentin 100 Mg Cap PO 03/24/25 08:59 100 mg TID ANNMARIE Administration Sodium Chloride 1,000 mls @ 100 mls/hr 02/22/25 03:42 02/22/25 11:09 Nss IV 02/23/25 03:19 100 mls/hr .Q10H ANNMARIE Infusion Lactulose 30 gm 02/22/25 13:00 02/22/25 13:25 Lactulose Syrup 20 Gm/30 Ml Udc PO 03/24/25 12:59 30 gm QID ANNMARIE Administration Magnesium Oxide 400 mg 02/22/25 09:00 02/22/25 09:20 Magnesium Oxide 400 Mg Tab PO 03/24/25 08:59 400 mg BID ANNMARIE Administration Pantoprazole Sodium 40 mg 02/22/25 09:00 02/22/25 09:20 Pantoprazole 40 Mg Tab PO 03/24/25 08:59 40 mg BID ANNMARIE Administration Rifaximin 550 mg 02/22/25 09:00 02/22/25 09:20 Rifaximin 550 Mg Tablet PO 03/24/25 08:59 550 mg BID ANNMARIE Administration Saccharomyces Boulardii 250 mg 02/22/25 11:00 02/22/25 12:13 Saccharomyces Boulardii 250 Mg Cap PO 03/24/25 10:59 250 mg DAILY ANNMARIE Administration Zinc Sulfate 220 mg 02/22/25 11:00 02/22/25 12:12 Zinc Sulfate 220 Mg Capsule PO 03/24/25 10:59 220 mg QAM ANNMARIE Administration
[2025-02-23 06:07] LABS: Hematocrit (blood only) 37.8 % (42.0-52.0); Hemoglobin 12.8 g/dL (14.0-18.0); Mean Corpuscular Hemoglobin 33.0 pg (25.0-34.0); Mean Corpuscular Volume 97.4 fL (80.0-100.0); Platelet Count 33 K/uL (130-400); RDW Standard Deviation 56.0 fL (36.4-46.3); Red Blood Count 3.88 M/uL (4.70-6.10); White Blood Count 4.37 K/ul (4.8-10.8)
[2025-02-23 06:23] LABS: Alanine Aminotransferase 24.0 U/L (7-52); Albumin Globulin Ratio 1.3 (0.9-2); Albumin Level 3.0 gm/dl (3.4-5.0); Alkaline Phosphatase 118.0 U/L (34-104); Anion Gap 4.0 (3-11); Bilirubin,Total 2.1 mg/dl (0.2-1.0); Blood Urea Nitrogen 9.0 mg/dl (6-23); Calcium 8.1 mg/dl (8.6-10.3); Carbon Dioxide 23.0 mmol/L (21-32); Chloride 114.0 mmol/L (98-107); Creatinine Clr Calc Pharmacy 105.1 ml/min; Globulin 2.4 gm/dl (2.5-4.0); Glucose 104.0 mg/dl (70-99(Fasting)); Magnesium 1.8 mg/dl (1.7-2.4); Potassium 3.7 mmol/L (3.5-5.1); Sodium 141.0 mmol/L (136-145); Total Protein 5.4 gm/dl (6.0-8.3)
[2025-02-23 07:29] VITALS: RESP 18
[2025-02-23 11:35] VITALS: BP 131/76; TEMP 98.4; O2SAT 94
--- NOTE | 2025-02-23 12:17 | Electrocardiogram Report ---
Test Reason : Blood Pressure : */* mmHG Vent. Rate : 77 BPM Atrial Rate : 77 BPM P-R Int : 146 ms QRS Dur : 88 ms QT Int : 426 ms P-R-T Axes : 33 20 36 degrees QTcB Int : 482 ms Normal sinus rhythm Prolonged QT Abnormal ECG When compared with ECG of 12-Feb-2025 01:22, No significant change was found Confirmed by Pippa Dorman (Denise) on 02/23/2025 12:16:57 PM Referred By: REFERRED SELF Confirmed By: Pippa Dorman
[2025-02-23 14:29] VITALS: PULSE 77
--- NOTE | 2025-02-23 14:44 | Discharge Summary ---
Discharge Summary Date of Service February 23, 2025 Principal Dx & Hospital Course #1 = Principal Diagnosis (1) Acute hepatic encephalopathy: 59-year-old male with past med history significant for dyslipidemia, hepatic encephalopathy, hypertension, esophageal varices without bleeding, history of CAD, history of TIA, abdominal aortic aneurysm, cirrhosis of liver, GERD, degenerative disc disease, cataracts, peripheral neuropathy, thrombocytopenia, anemia, history of SBO, was brought in because of confusion. Patient seems at dinner today evening began to stare off and have a change in his mentation. And became weak and shaky and complained of pain in the abdomen and legs. His fiance was concerned for sudden change in his mental status and brought him to the hospital. He is on lactulose and he did not take his evening dose of lactulose. His ammonia level is high in the ER. His lactate was elevated on initial labs but on repeat normalized. CT head and CT abdomen pelvis no acute findings. Also patient seems had a brief seizure-like activity per nursing staff in the ER and was loaded with Keppra. Currently patient is drowsy but arousable. He knows that he was confused and that is the reason he was brought to the hospital. Can tell his name. Can tell his age. But could not tell his date of . Knows that he is in the hospital. Knows current year but thinks it is April. Somewhat slow to answer. Says yes to all the questions. Says has headache, back pain, chest pain, abdominal pain, nausea, shortness of breath and cough. Hemodynamics are okay currently. Acute hepatic encephalopathy Confusion Ammonia level 110 CT head, CT of the abdomen pelvis no acute findings ER empirically gave cefepime but no ascites on CT scan. UA is okay. Procalcitonin negative. Will give a dose of lactulose. Continue home lactulose 4 times daily and rifaximin Follow repeat ammonia levels in a.m. Close monitoring telemetry Gentle fluids for 1 L Follow labs GI consult for further recommendations Alcoholic liver cirrhosis Continue home diuretics, lactulose and Xifaxan GERD Continue Protonix Thrombocytopenia Platelets 46 seems around baseline From cirrhosis Will follow labs Lactic acidosis Initial lactate is 5.7 and repeat is 1.7 Questionable seizures Brief seizure-like activity in the ER CT head is okay Was loaded with Keppra by ER For now we will place him on IV Ativan as needed Will follow EEG Neurology consult in a.m. Hyperlipidemia On statin Hypertension Clonidine Will monitor Peripheral neuropathy On gabapentin Depression On Cymbalta Iron deficiency anemia On iron supplements Hemoglobin stable DVT prophylaxis SCDs for now Disposition Telemetry Full code. Notes For Next Care Provider 59-year-old male with past med history significant for dyslipidemia, hepatic encephalopathy, hypertension, esophageal varices without bleeding, history of CAD, history of TIA, abdominal aortic aneurysm, cirrhosis of liver, GERD, degenerative disc disease, cataracts, peripheral neuropathy, thrombocytopenia, anemia, history of SBO, was brought in because of confusion. Admitted to medicine for hepatic encephalopathy and concern for seizure. Loaded with keppra in ED. Started on probiotic give small body of evidence for helping hepatic encephalopathy. Neurology consulted, recommended continuing keppra outpatient and will follow up with neurology outpatient to consider stopping. PT/OT recommended home going. On 02/23/2025 medically stable for discharge home. To do: [ ] f/u with [facility] transplant team, GI [ ] titrate lactulose to effect Medication Changes From Visit -see below Admission HPI Per Admitting Provider 59-year-old male with past med history significant for dyslipidemia, hepatic encephalopathy, hypertension, esophageal varices without bleeding, history of CAD, history of TIA, abdominal aortic aneurysm, cirrhosis of liver, GERD, degenerative disc disease, cataracts, peripheral neuropathy, thrombocytopenia, anemia, history of SBO, was brought in because of confusion. Patient seems at dinner today evening began to stare off and have a change in his mentation. And became weak and shaky and complained of pain in the abdomen and legs. His fiance was concerned for sudden change in his mental status and brought him to the hospital. He is on lactulose and he did not take his evening dose of lactulose. His ammonia level is high in the ER. His lactate was elevated on initial labs but on repeat normalized. CT head and CT abdomen pelvis no acute findings. Also patient seems had a brief seizure-like activity per nursing staff in the ER and was loaded with Keppra. Currently patient is drowsy but arousable. He knows that he was confused and that is the reason he was brought to the hospital. Can tell his name. Can tell his age. But could not tell his date of . Knows that he is in the hospital. Knows current year but thinks it is April. Somewhat slow to answer. Says yes to all the questions. Says has headache, back pain, chest pain, abdominal pain, nausea, shortness of breath and cough. Hemodynamics are okay currently. Past medical history. As mentioned above Past surgical history. Colonoscopy. EGD. EGD with endoscopic ultrasound. Laparoscopic cholecystectomy. Reduction of bowel obstruction. Removal of ruptured appendix. Social history. Quit smoking 2015. Smoked 0.1 pack a day for 20 years. No alcohol use currently as per records. No drug use. Family history. Father had dementia. Heart failure. [place]. Stroke. Mother had Parkinson's. Discharge Exam Gen: A&O 3 NAD HEENT: NCAT, EOMI, not icteric. External ears normal. No rhinorrhea. Moist mucous membranes. Neck: Supple, full range of motion, no observable masses, No meningeal sign. Lungs: No Respiratory distress. CV: RRR, no edema. Abdomen: Soft, nondistended, No rebound tenderness. MSK: No joint swelling, no redness. Skin: No rashes, petechiae, lesions. Normal color per patient. Neuro: Normal Gait, Grossly intact. Psych: Appropriate for situation. Updated Medication List Medication Instructions Recorded Confirmed Type atorvastatin 20 mg tablet 20 mg PO QAM 04/20/24 02/21/25 History duloxetine 30 mg capsule,delayed 30 mg PO QAM 04/20/24 02/21/25 History release furosemide 40 mg tablet 40 mg PO QAM 04/20/24 02/21/25 History magnesium oxide 400 mg (241.3 mg 400 mg PO BID 04/20/24 02/21/25 History magnesium) tablet pantoprazole 40 mg tablet,delayed 40 mg PO BID 04/20/24 02/21/25 History release (Protonix) rifaximin 550 mg tablet (Xifaxan) 550 mg PO BID 04/20/24 02/21/25 History clonidine HCl 0.1 mg tablet 0.1 mg PO BID 08/18/24 02/21/25 History albuterol sulfate 90 mcg/actuation 2 inh inhalation Q4H PRN Shortness 11/03/24 02/21/25 History aerosol inhaler Of Breath lactulose 10 gram/15 mL oral 30 ml PO QID #3,000 mL 12/13/24 02/21/25 Rx solution clotrimazole 1 % topical cream 1 applic EXT BID PRN NEEDED 02/12/25 02/21/25 History diclofenac sodium 1 % topical gel 2 g topical BID PRN LEFT LATERAL 02/12/25 02/21/25 History HIP PAIN epinephrine 0.3 mg/0.3 mL 0.3 mg IM DIRECTED PRN Allergic 02/12/25 02/21/25 History injection, auto-injector (EpiPen) Reaction oxycodone 5 mg tablet 5 mg PO Q8H PRN Breakthrough Pain 02/12/25 02/21/25 History Saccharomyces boulardii 250 mg 250 mg PO DAILY 30 days #30 caps 02/23/25 Rx capsule gabapentin 100 mg capsule 200 mg (2 x 100 mg) PO TID 30 days 02/23/25 Rx #180 caps levetiracetam 100 mg/mL oral 500 mg (5 mL) PO Q12H 30 days #300 02/23/25 Rx solution (Keppra) mL trazodone 50 mg tablet 50 mg PO HS 30 days #30 tabs 02/23/25 Rx zinc sulfate 50 mg zinc (220 mg) 220 mg (4.4 x 50 mg zinc (220 mg)) 02/23/25 Rx capsule (Orazinc) PO QAM 30 days #132 caps Hospital Stay Data Consultations 02/22/25 00:38 ED Decision to Admit Stat 02/22/25 08:00 Consult Neurology Routine Diagnostic Imagining Performed 02/21/25 22:23 CT abd pelvis IV con only Stat CT head/brain wo con Stat Pending Results Patient Have Any Pending Studies at Discharge: No Discharge Instructions Given to Patient (Per Discharging Provider) Diagnosis: hepatic encephalopathy, seizure disorder, severe alcoholic cirrhosis c/b varices Incidental Findings: enteritis Follow Ups: PCP, neurology, GI 1. Please follow up with PCP, neurology, GI. 2. Follow up with [facility] transplant team. 3. Please take lactulose faithfully, decrease dose occasionally if having diarrhea but do not stop. Total Time Total Time Spent Total Time Spent (In Minutes): I spent a total of 35 minutes in direct patient care, including [id number] time with the patient and/or family, reviewing medical records, ordering and reviewing diagnostic tests, and coordinating care with other healthcare providers. This time includes: history taking, physical examination, medical decision making, counseling, ECG interpretation, imaging interpretation, lab interpretation, orders, and education, excluding time spent in the performance of separately billed services.
== END 2025-02-23 14:44 | disposition home or self-care (01) | DRG 442 ==
LOC: ED 22:05 → 2S 02-22 02:33